=== PATIENT | female | born 1980 | race African-American/Black ===

== ENCOUNTER 2018-01-06 17:32 | Emergency (ER) | payer OTHER ==
[2018-01-06] MEDS ORDERED: PROMETHAZINE 25 MG/ML VIAL ONE (18:29)
[2018-01-06] MEDS ORDERED: LORazepam 2 MG/ML VIAL ONE (18:29)
[2018-01-06] MEDS ORDERED: FAMOTIDINE 20 MG/2 ML VIAL IV ONE (18:30)
[2018-01-06] MEDS ORDERED: NA CHLORIDE 0.9% 500 ML ONE (18:30)
[2018-01-06] MEDS ORDERED: FENTANYL CITR 100 MCG/2 ML ONE (18:30)
[2018-01-06 18:48] LABS: Absolute Lymphocytes (CBC) 1.3 K/uL (0.7-4.9); Absolute Monocytes 0.9 K/uL (0.1-1.3); Absolute Neutrophil 8.4 K/uL (1.8-8.0); Basophils % 0.1 % (0-1.3); Eosinophils % 1.5 % (0-4.4); Hematocrit 36.2 % (36.0-45.0); Lymphocytes % 12.2 % (15.3-44.8); MCH 23.7 pg (27.0-35.0); MCV 75.8 fL (80-100); Monocytes % 8.7 % (3.3-12.3); RBC Red Blood Cell Count 4.77 M/uL (3.86-4.86)
[2018-01-06 19:05] LABS: MPV 6.9 fL (7.6-11.3)
[2018-01-06 19:24] LABS: Bicarbonate 26 mEq/L (21-31); Glucose Level 111 mg/dL (65-120); Lipase 37 U/L (22-51); Potassium 3.7 mEq/L (3.6-5.0); Sodium Level 139 mEq/L (135-145)
[2018-01-06 19:31] LABS: ALT/SGPT 20 IU/L (10-60); AST/SGOT 23 IU/L (10-42); Albumin 4.1 g/dL (3.2-5.5); Alkaline Phosphatase 54 IU/L (42-121); Amylase Level 155 U/L (28-100); BUN Blood Urea Nitrogen 12 mg/dL (6-20); Bilirubin Direct 0.1 mg/dL (0-0.2); Bilirubin Total 0.3 mg/dL (0.3-1.2); Protein, Total 8.4 g/dL (6.0-8.3)
[2018-01-06 20:07] LABS: Blood Morphology Comment NOT SEEN (NOT SEEN); Platelet Estimate INCR; Urine White Blood Cell Casts OK
[2018-01-06] MEDS ORDERED: DICYCLOMINE HCL 10 MG CAP ONE (20:16)
--- NOTE | 2018-01-06 20:35 | ER ---
Nurse's Notes [facility] Name: Leila Aquino Age: 37 yrs Sex: Female : 1980 Arrival Date: 01/06/2018 Time: 17:41 Bed 16 Private MD: Diagnosis: Nausea and vomiting;Unspecified abdominal pain-chronic Presentation: 01/06 17:41 Presenting complaint: EMS states: Reports nausea and vomiting x 24hrs, states that she ph cannot keep anything down, BGL 115. Transition of care: patient was not received from another setting of care. Onset of symptoms was January 06, 2018. Initial Sepsis Screen: Does the patient meet any 2 criteria? No. Patient's initial sepsis screen is negative. Does the patient have a suspected source of infection? No. Patient's initial sepsis screen is negative. 17:41 Method Of Arrival: EMS: [facility] ph 17:41 Acuity: PAYTON 3 ph 19:16 Care prior to arrival: None. ph CRA: 21:18 LMP N/A - Irregular menses bs1 Historical: - Allergies: 19:12 Latex, Natural Rubber; ph 19:12 Morphine; ph 19:12 Vancomycin; ph - Home Meds: 19:12 amlodipine 10 mg tab 1 tab once daily [Active]; betamethasone valerate 0.1 % Topical ph crea [Active]; docusate sodium 100 mg Oral cap 1 cap 2 times per day [Active]; iron sulfate 325mg PO [Active]; metoprolol tartrate 25 mg Oral tab 0.5 tab 2 times per day [Active]; magnesium oxide 400 mg Oral tab 400 mg twice a day [Active]; miralax PO [Active]; mometasone nasal 2 sprays once daily [Active]; ondansetron HCl 8 mg Oral tab 1 tab 2 times per day [Active]; pantoprazole 40 mg Oral TbEC 1 tab once daily [Active]; promethazine 25 mg Oral tab 1 tab every 6 hours [Active]; sertraline 100 mg Oral tab 1 tab once daily [Active]; Xarelto 20 mg Oral tab 1 tab once daily [Active]; xopenex inhaler [Active]; - PMHx: 19:12 ADD/ADHD; Anemia; Asthma; DVT; Hypertension; Sepsis; spina bifida; ph - PSHx: 19:12 abdominal muscle removal; ph - Immunization history:: Adult Immunizations unknown. - Social history:: Smoking status: Patient/guardian denies using tobacco. Screenin:15 Abuse screen: Denies threats or abuse. Denies injuries from another. Nutritional ph screening: No deficits noted. Tuberculosis screening: No symptoms or risk factors identified. Fall Risk No fall in past 12 months (0 pts). Secondary diagnosis (15 points) impaired mobility, IV access (20 points). Ambulatory Aid- None/Bed Rest/Nurse Assist (0 pts). Gait- Impaired (20 pts.). Mental Status- Oriented to own ability (0 pts). Total Toribio Fall Scale indicates High Risk Score (45 or more points). Fall prevention measures have been instituted. Side Rails Up X 2 Placed Close to Nursing Station Frequent Obs/Assessments Occuring As available patient and family educated on Fall Prevention Program and Strategies. Assessment: 18:00 General: Appears in no apparent distress. uncomfortable, obese, well groomed, Behavior ph is calm, cooperative, appropriate for age, Denies fever. Pain: Complains of pain in right upper quadrant and left upper quadrant. Neuro: Level of Consciousness is awake, alert, obeys commands, Oriented to person, place, time, situation. Cardiovascular: Capillary refill < 3 seconds Patient's skin is warm and dry. Respiratory: Airway is patent Respiratory effort is even, unlabored. GI: Abdomen is round distended, Colostomy site is clean and dry. Ostomy appliance is intact. Reports upper abdominal pain, bloating, nausea, vomiting, since last night. : suprapubic catheter in place to gravity drainage Urine is cloudy. Derm: Skin is intact, Skin is pink, warm \\T\\ dry. Musculoskeletal: Circulation, motion, and sensation intact. Range of motion: limited in lower extremities. 19:10 Reassessment: Patient appears in no apparent distress at this time. Patient and/or bs1 family updated on plan of care and expected duration. Pain level reassessed. Patient is alert, oriented x 3, equal unlabored respirations, skin warm/dry/pink. Report received from RAJNI Grewal. 19:30 Reassessment: Patient requesting more pain medication. Informed PA, order for bentyl. bs1 20:45 Reassessment: Patient refused bentyl, informed PA. bs1 20:50 Reassessment: Patient appears in no apparent distress at this time. Patient appears bs1 upset, due to not receiving more IV pain medication and not further evaluating why patient is having the abdominal pain. MARSHA Mcqueen, talked with patient regarding follow up care. Patient refused Bentyl for stomach, patient states "That is not going to help with my pain, I need something through the IV, just take my IV out give me wheelchair and send me out in the lobby this place is making me frustrated." Patient informed nurse that her ride will be waiting for her. Informed Patient that if she needs any help getting into the car, to call for help and we will come outside. Vital Signs: 17:45 BP 130 / 93; Pulse 109; Resp 18; Temp 97.8; Pulse Ox 98% on R/A; Weight 88.45 kg; Pain ph 7/10; 18:45 BP 123 / 89; Pulse 98; Pulse Ox 100% on R/A; bs1 19:00 BP 133 / 102; Pulse 111; Pulse Ox 100% on R/A; bs1 20:00 BP 121 / 90; Pulse 97; Pulse Ox 100% ; bs1 21:00 BP 138 / 99; Pulse 106; Resp 16; Temp 98.2(O); Pulse Ox 99% on R/A; Pain 7/10; bs1 ED Course: 17:41 Patient arrived in ED. ph 17:42 Burton Mcqueen PA is PHCP. cp 17:42 Burton Rodrigez MD is Attending Physician. cp 17:44 Triage completed. ph 18:06 Carmina Escobar, RN is Primary Nurse. ph 18:45 Initial lab(s) drawn, by me, sent to lab. Inserted saline lock: 22 gauge in left upper ph arm, using aseptic technique. Blood collected. 19:16 Arm band placed on. ph 19:16 Patient has correct armband on for positive identification. Bed in low position. Call ph light in reach. Side rails up X2. Pulse ox on. NIBP on. Warm blanket given. 21:18 No provider procedures requiring assistance completed. IV discontinued, bleeding bs1 controlled, No redness/swelling at site. Pressure dressing applied. 21:27 Primary Nurse role handed off by Carmina Escobar, RAJNI ed1 Administered Medications: 18:50 Drug: NS 0.9% 500 ml Route: IV; Rate: bolus; Site: left upper arm; ph 21:21 Follow up: IV Status: Completed infusion bs1 18:50 Drug: fentaNYL (PF) 25 mcg Route: IVP; Site: left upper arm; ph 21:20 Follow up: Response: No adverse reaction bs1 18:51 Drug: Phenergan 25 mg Route: IVP; Site: left upper arm; ph 21:21 Follow up: Response: No adverse reaction bs1 18:52 Drug: Ativan 0.5 mg Route: IVP; Site: left upper arm; ph 21:20 Follow up: Response: No adverse reaction bs1 18:53 Drug: Pepcid 20 mg Route: IVP; Site: left upper arm; ph 21:20 Follow up: Response: No adverse reaction bs1 20:29 Not Given (Patient Refused): Bentyl 20 mg PO once bs1 Outcome: 20:35 Discharge ordered by MD. cp 21:19 Discharged to [facility], via wheelchair bs1 21:19 Condition: stable 21:19 Discharge instructions given to patient, Instructed on discharge instructions, follow up and referral plans. medication usage, Demonstrated understanding of instructions, follow-up care, medications, Prescriptions given X 2. 21:33 Patient left the ED. bs1 Addendum: 01/10/2018 09:52 Addendum: Culture Results: Positive urine culture. Prescription called-in to pharmacy a a5 of choice. Called in to [facility] in [place], [place]. Signatures: Kay Goldstein RN RN aa5 Nirmala Montano, SKEIN YARN DRIER SKEIN YARN DRIER ed1 Carmina Escobar RN RN ph Burton cMqueen, MARSHA PA Nandini Garcia RN RN bs1 Corrections: (The following items were deleted from the chart) 01/06 19:09 18:30 Pepcid 20 mg IVP in left upper arm ph ph 19:11 19:10 Reassessment: Patient appears in no apparent distress at this time. Patient bs1 and/or family updated on plan of care and expected duration. Pain level reassessed. Patient is alert/active/playful, equal unlabored respirations, skin warm/dry/pink. Report received from RAJNI Grewal bs1
--- NOTE | 2018-01-06 20:35 | EDPHYS ---
Physician Documentation [facility] Name: Leila Aquino Age: 37 yrs Sex: Female : 1980 Arrival Date: 01/06/2018 Time: 17:41 Bed 16 Private MD: ED Physician Burton Rodrigez HPI: 01/06 17:48 This 37 yrs old Black Female presents to ER via EMS with complaints of Nausea/Vomiting. cp 17:48 The patient presents to the emergency department with nausea, that is moderate, cp vomiting, that is intermittent. Onset: The symptoms/episode began/occurred last night. 17:48 Associated signs and symptoms: Pertinent positives: abdominal pain, Pertinent cp negatives: fever, GI bleeding. 17:48 Severity of symptoms: in the emergency department the symptoms are unchanged despite cp home interventions. H[employer] M[employer] SHE[employer]ER: 21:18 LMP N/A - Irregular menses bs1 Historical: - Allergies: 19:12 Latex, Natural Rubber; ph 19:12 Morphine; ph 19:12 Vancomycin; ph - Home Meds: 19:12 amlodipine 10 mg tab 1 tab once daily [Active]; betamethasone valerate 0.1 % Topical ph crea [Active]; docusate sodium 100 mg Oral cap 1 cap 2 times per day [Active]; iron sulfate 325mg PO [Active]; metoprolol tartrate 25 mg Oral tab 0.5 tab 2 times per day [Active]; magnesium oxide 400 mg Oral tab 400 mg twice a day [Active]; miralax PO [Active]; mometasone nasal 2 sprays once daily [Active]; ondansetron HCl 8 mg Oral tab 1 tab 2 times per day [Active]; pantoprazole 40 mg Oral TbEC 1 tab once daily [Active]; promethazine 25 mg Oral tab 1 tab every 6 hours [Active]; sertraline 100 mg Oral tab 1 tab once daily [Active]; Xarelto 20 mg Oral tab 1 tab once daily [Active]; xopenex inhaler [Active]; - PMHx: 19:12 ADD/ADHD; Anemia; Asthma; DVT; Hypertension; Sepsis; spina bifida; ph - PSHx: 19:12 abdominal muscle removal; ph - Immunization history:: Adult Immunizations unknown. - Social history:: Smoking status: Patient/guardian denies using tobacco. ROS: 18:00 Constitutional: Negative for body aches, chills, fever, poor PO intake. cp 18:00 Eyes: Negative for injury, pain, redness, and discharge. cp 18:00 ENT: Negative for drainage from ear(s), ear pain, sore throat, difficulty swallowing, difficulty handling secretions. 18:00 Cardiovascular: Negative for chest pain, edema, palpitations. 18:00 Respiratory: Negative for cough, shortness of breath, wheezing. 18:00 Abdomen/GI: Positive for abdominal pain, nausea and vomiting, Negative for abdominal distension, anorexia, black/tarry stool, rectal bleeding. 18:00 Back: Negative for pain at rest, pain with movement, radiated pain. 18:00 Skin: Negative for cellulitis, rash. 18:00 Neuro: Negative for altered mental status, headache, weakness. 18:00 All other systems are negative. Exam: 18:05 Constitutional: The patient appears in no acute distress, alert, awake, cp non-diaphoretic, non-toxic, well developed, well nourished. 18:05 Head/Face: Normocephalic, atraumatic. cp 18:05 Eyes: Periorbital structures: appear normal, Conjunctiva: normal, no exudate, no injection, Sclera: no appreciated abnormality, Lids and lashes: 18:05 ENT: External ear(s): are unremarkable, Nose: is normal, Mouth: Lips: moist, Oral mucosa: moist, Posterior pharynx: is normal, airway is patent, no erythema, no exudate. 18:05 Neck: ROM/movement: is normal, is supple, without pain, no range of motions limitations, no meningismus, no nuchal rigidity. 18:05 Chest/axilla: Inspection: normal, Palpation: is normal, no crepitus, no tenderness. 18:05 Cardiovascular: Rate: tachycardic, Rhythm: regular. 18:05 Respiratory: the patient does not display signs of respiratory distress, Respirations: normal, no use of accessory muscles, no retractions, no splinting, no tachypnea, labored breathing, is not present, Breath sounds: are clear throughout, no decreased breath sounds, no stridor, no wheezing. 18:05 Abdomen/GI: Inspection: distension, is not seen, Bowel sounds: active, all quadrants, Palpation: soft, in all quadrants, rebound tenderness, is not appreciated, involuntary guarding, is not appreciated. 18:05 Skin: cellulitis, is not appreciated, no rash present. 18:05 Neuro: Orientation: to person, place \T\ time. Mentation: lucid, able to follow commands. Vital Signs: 17:45 BP 130 / 93; Pulse 109; Resp 18; Temp 97.8; Pulse Ox 98% on R/A; Weight 88.45 kg; Pain ph 7/10; 18:45 BP 123 / 89; Pulse 98; Pulse Ox 100% on R/A; bs1 19:00 BP 133 / 102; Pulse 111; Pulse Ox 100% on R/A; bs1 20:00 BP 121 / 90; Pulse 97; Pulse Ox 100% ; bs1 21:00 BP 138 / 99; Pulse 106; Resp 16; Temp 98.2(O); Pulse Ox 99% on R/A; Pain 7/10; bs1 MDM: 17:44 Patient medically screened. cp 18:00 Differential diagnosis: gastritis, viral gastroenteritis, gastroenteritis, electrolyte cp abnormality, dehydration, chronic abdominal pain. 20:35 Data reviewed: vital signs, nurses notes, lab test result(s), and as a result, I will cp discharge patient. 20:35 ED course: VSS. No episodes of vomiting observed while in ED. Patient observed cp tolerating po fluids. Will discharge to home for continued monitoring. 20:35 Special discussion: I discussed with the patient their frequent requests for pain cp medications. Instructions have been given, that in the best interests of the patient, further pain Rx's must come from the patient's PCP or a body technician/painter. 01/06 17:49 Order name: Amylase, Serum; Complete Time: 19:35 cp 01/06 19:35 Interpretation: Abnormal: DAWSON 155. cp 01/06 17:49 Order name: Basic Metabolic Panel; Complete Time: 19:35 cp 01/06 19:36 Interpretation: Reviewed. 01/06 17:49 Order name: CBC with Diff; Complete Time: 20:33 cp 01/06 19:36 Interpretation: Normal except: HGB 11.3; MCV 75.8; MCH 23.7; MCHC 31.3; PLT 506; RDW cp 18.0; MPV 6.9; BETO% 77.5; LYM% 12.2; NEUT A 8.4. 01/06 17:49 Order name: Creatinine for Radiology; Complete Time: 19:35 cp 01/06 17:49 Order name: Hepatic Function; Complete Time: 19:35 cp 01/06 19:36 Interpretation: Normal except: TP 8.4; GLOB 4.3; A/G 1.0. cp / 17:49 Order name: Lipase; Complete Time: 19:35 cp 01/06 19:07 Order name: CBC Smear Scan; Complete Time: 20:33 EDMS 01/06 19:27 Order name: Urine Dipstick--Ancillary (enter results); Complete Time: 21:23 em1 01/06 21:24 Interpretation: Normal except: UBLD TRACE; UPH 8.5; UPROT 2+; UESTR 1+. cp 01/06 19:42 Order name: Urine Microscopic Only; Complete Time: 21:23 cp 01/06 21:24 Interpretation: Normal except: UWBC 5-10; UBACT 20-50; SQEPI 5-10; AMORPH 3+. cp 01/06 20:50 Order name: Urine Culture EDAR 01/06 17:49 Order name: Urine Test (obtain specimen); Complete Time: 19:26 cp 01/06 17:49 Order name: IV Saline Lock; Complete Time: 19:09 cp 01/06 17:49 Order name: Labs collected and sent; Complete Time: 19:09 cp 01/06 17:49 Order name: Urine Dipstick-Ancillary (obtain specimen); Complete Time: 19:26 cp 01/06 19:42 Order name: PO challenge; Complete Time: 20:46 cp Administered Medications: 18:50 Drug: NS 0.9% 500 ml Route: IV; Rate: bolus; Site: left upper arm; ph 21:21 Follow up: IV Status: Completed infusion bs1 18:50 Drug: fentaNYL (PF) 25 mcg Route: IVP; Site: left upper arm; ph 21:20 Follow up: Response: No adverse reaction bs1 18:51 Drug: Phenergan 25 mg Route: IVP; Site: left upper arm; ph 21:21 Follow up: Response: No adverse reaction bs1 18:52 Drug: Ativan 0.5 mg Route: IVP; Site: left upper arm; ph 21:20 Follow up: Response: No adverse reaction bs1 18:53 Drug: Pepcid 20 mg Route: IVP; Site: left upper arm; ph 21:20 Follow up: Response: No adverse reaction bs1 20:29 Not Given (Patient Refused): Bentyl 20 mg PO once bs1 Disposition: 01/07 10:55 Co-signature as Attending Physician, Burton Rodrigez MD I agree with the assessment and efrain plan of care. Disposition: 01/06/18 20:35 Discharged to Home. Impression: Nausea and vomiting, Unspecified abdominal pain - chronic. - Condition is Stable. - Discharge Instructions: Abdominal Pain, Adult, Chronic Pain, Nausea and Vomiting. - Prescriptions for promethazine 25 mg Oral Tablet - take 1 tablet by ORAL route every 6 hours As needed; 20 tablet. Pepcid 20 mg Oral Tablet - take 1 tablet by ORAL route 2 times per day; 20 tablet. - Medication Reconciliation Form, Thank You Letter, Antibiotic Education, Prescription Opioid Use form. - Follow up: Private Physician; When: 1 - 2 days; Reason: Recheck today's complaints. - Problem is an ongoing problem. - Symptoms have improved. Signatures: Dispatcher [employer] EDAR Burton Rodrigez MD MD cha Hall, Patricia, RN RN ph Charisse, Burton, PA PA Nandini Turpin, RN RN bs1 Corrections: (The following items were deleted from the chart) 01/06 21:33 20:35 01/06/2018 20:35 Discharged to Home. Impression: Nausea and vomiting; Unspecified bs1 abdominal pain - chronic. Condition is Stable. Forms are Medication Reconciliation Form, Thank You Letter, Antibiotic Education, Prescription Opioid Use. Follow up: Private Physician; When: 1 - 2 days; Reason: Recheck today's complaints. Problem is an ongoing problem. Symptoms have improved. cp
[2018-01-06 20:48] LABS: Urine Amorphous Sediment 3+ /HPF (NONE SEEN); Urine Bacteria 20-50 /HPF (<20); Urine Culture Reflex Order REFLEXED; Urine Mucus 2+ /HPF (NONE SEEN); Urine RBC <5 /HPF (NONE SEEN)
[2018-01-06 20:49] LABS: Urine Blood TRACE (NEG); Urine Glucose NEGATIVE (NEG); Urine Protein 2+ (NEG); Urine pH 8.5 (5.0-7.0)
[2018-01-06 21:45] VITALS: BP 138/99; TEMP 98.2; O2SAT 99
== END 2018-01-06 21:33 | disposition home or self-care (01) ==
LOC: ER 17:32
DX: R11.2 Nausea with vomiting, unspecified (principal); I10 Essential (primary) hypertension; J45.909 Unspecified asthma, uncomplicated; F98.8 Other specified behavioral and emotional disorders with onset usually occurring in childhood and adolescence; Z88.6 Allergy status to analgesic agent; Z88.3 Allergy status to other anti-infective agents; Z91.040 Latex allergy status
CPT/HCPCS: 36415; 80048; 80076; 82150; 83690; 85025; 87077 ×2; 87086; 87088; 87186 ×2; 96361; 96374; 96375; 99284; J2550; J3010; 81003; 81015

== ENCOUNTER 2018-02-28 17:36 | Emergency (ER) | payer OTHER ==
[2018-02-28] MEDS ORDERED: NA CHLORIDE 0.9% 2,000 ML ONE (18:08)
--- NOTE | 2018-02-28 18:18 | RAD REPORT ---
EXAM DESCRIPTION: [facility] Single View02/28/2018 6:08 pm CLINICAL HISTORY: Fever COMPARISON: September 2017 FINDINGS: A left ventriculo pleural shunt is in place with moderate pleural effusion. It is unchange d in size The right lung appears clear of acute infiltrate. A filter is present within the superior vena cava
[2018-02-28 18:49] LABS: Protime INR 1.26
[2018-02-28] MEDS ORDERED: FENTANYL CITR 100 MCG/2 ML ONE (18:58)
[2018-02-28] MEDS ORDERED: ACETAMINOPHEN 500 MG TAB ONE (18:59)
[2018-02-28] MEDS ORDERED: ONDANSETRON 4 MG/2 ML VIAL ONE (18:59)
[2018-02-28 19:16] LABS: Albumin 3.9 g/dL (3.4-5.0); Bilirubin Direct 0.2 mg/dL (0-0.2); Bilirubin Total 0.7 mg/dL (0.2-1.0); Potassium 3.1 mmol/L (3.5-5.1); Protein, Total 8.7 g/dL (6.4-8.2)
[2018-02-28] MEDS ORDERED: CEFTRIAXONE/SWI 1gm 2 GM/20 ML SYR ONE (19:27)
[2018-02-28 19:31] LABS: Absolute Lymphocytes (CBC) 0.3 K/uL (0.7-4.9); Absolute Neutrophil 18.5 K/uL (1.8-8.0); Hematocrit 32.1 % (36.0-45.0); Lymphocytes % 1.3 % (15.3-44.8); MCV 71.1 fL (80-100); MPV 9.1 fL (7.6-11.3); RBC Red Blood Cell Count 4.51 M/uL (3.86-4.86)
--- NOTE | 2018-02-28 19:53 | EDPHYS ---
Physician Documentation [facility] Name: Leila Aquino Age: 37 yrs Sex: Female : 1980 Arrival Date: 02/28/2018 Time: 17:42 Bed 15 Private MD: ED Physician Rudy Franklin HPI: 02/28 19:20 This 37 yrs old Black Female presents to ER via EMS with complaints of nausea/abdominal jr8 discomfort. 19:20 The patient presents with abdominal pain in the lower abdomen. Onset: The jr8 symptoms/episode began/occurred acutely, today. The symptoms do not radiate. Associated signs and symptoms: Pertinent positives: nausea and vomiting, fever. The symptoms are described as constant, dull. Modifying factors: The symptoms are alleviated by nothing, the symptoms are aggravated by nothing. Severity of pain: At its worst the pain was moderate in the emergency department the pain is unchanged. It is unknown whether or not the patient has had similar symptoms in the past. The patient has not recently seen a physician. Historical: - Allergies: 17:52 Latex, Natural Rubber; mg2 17:52 Morphine; mg2 17:52 Vancomycin; mg2 - Home Meds: 17:52 amlodipine 10 mg tab 1 tab once daily [Active]; betamethasone valerate 0.1 % Topical mg2 crea [Active]; docusate sodium 100 mg Oral cap 1 cap 2 times per day [Active]; iron sulfate 325mg PO [Active]; magnesium oxide 400 mg Oral tab 400 mg twice a day [Active]; metoprolol tartrate 25 mg Oral tab 0.5 tab 2 times per day [Active]; miralax PO [Active]; mometasone nasal 2 sprays once daily [Active]; ondansetron HCl 8 mg Oral tab 1 tab 2 times per day [Active]; pantoprazole 40 mg Oral TbEC 1 tab once daily [Active]; promethazine 25 mg Oral tab 1 tab every 6 hours [Active]; sertraline 100 mg Oral tab 1 tab once daily [Active]; Xarelto 20 mg Oral tab 1 tab once daily [Active]; xopenex inhaler [Active]; - PMHx: 17:52 ADD/ADHD; Anemia; DVT; Asthma; Hypertension; spina bifida; Sepsis; mg2 - PSHx: 17:52 bilateral colostomy; mg2 - Immunization history:: Flu vaccine status is unknown. - Ebola Screening: : No symptoms or risks identified at this time. - Social history:: Smoking status: Patient/guardian denies using tobacco. ROS: 19:20 Eyes: Negative for injury, pain, redness, and discharge, ENT: Negative for injury, jr8 pain, and discharge, Neck: Negative for injury, pain, and swelling, Cardiovascular: Negative for chest pain, palpitations, and edema, Respiratory: Negative for shortness of breath, cough, wheezing, and pleuritic chest pain, Back: Negative for injury and pain, MS/Extremity: Negative for injury and deformity, Skin: Negative for injury, rash, and discoloration, Neuro: Negative for headache, weakness, numbness, tingling, and seizure. 19:20 Abdomen/GI: Positive for abdominal pain, nausea and vomiting, Negative for diarrhea, abdominal cramps, abdominal distension, anorexia, dysphagia, hematemesis, black/tarry stool, rectal pain, rectal bleeding, bowel incontinence, flatulence. Exam: 19:20 Eyes: Pupils equal round and reactive to light, extra-ocular motions intact. Lids and jr8 lashes normal. Conjunctiva and sclera are non-icteric and not injected. Cornea within normal limits. Periorbital areas with no swelling, redness, or edema. ENT: Nares patent. No nasal discharge, no septal abnormalities noted. Tympanic membranes are normal and external auditory canals are clear. Oropharynx with no redness, swelling, or masses, exudates, or evidence of obstruction, uvula midline. Mucous membranes moist. Neck: Trachea midline, no thyromegaly or masses palpated, and no cervical lymphadenopathy. Supple, full range of motion without nuchal rigidity, or vertebral point tenderness. No Meningismus. Cardiovascular: Regular rate and rhythm with a normal S1 and S2. No gallops, murmurs, or rubs. Normal PMI, no JVD. No pulse deficits. Respiratory: Lungs have equal breath sounds bilaterally, clear to auscultation and percussion. No rales, rhonchi or wheezes noted. No increased work of breathing, no retractions or nasal flaring. Back: No spinal tenderness. No costovertebral tenderness. Full range of motion. Skin: Warm, dry with normal turgor. Normal color with no rashes, no lesions, and no evidence of cellulitis. MS/ Extremity: Pulses equal, no cyanosis. Neurovascular intact. Full, normal range of motion. Neuro: Awake and alert, GCS 15, oriented to person, place, time, and situation. Cranial nerves II-XII grossly intact. Motor strength 5/5 in all extremities. Sensory grossly intact. Cerebellar exam normal. Normal gait. 19:20 Abdomen/GI: Inspection: obese urostomy and colostomy bag noted , Bowel sounds: active, all quadrants, Palpation: soft, in all quadrants, mild abdominal tenderness, in the abdomen diffusely, mass, is not appreciated, rebound tenderness, is not appreciated, voluntary guarding, is not appreciated, involuntary guarding, is not appreciated, no appreciated organomegaly, Indicators: McBurney's point is not tender, Augustin's sign is negative, Rovsing's sign is negative, Liver: no appreciated palpable abnormalities, tenderness, is not appreciated. Vital Signs: 17:52 BP 140 / 99; Pulse 140; Resp 18; Temp 103.2; Pulse Ox 96% on R/A; Weight 90.72 kg; mg2 Height 5 ft. 0 in. (152.40 cm); Pain 7/10; 18:38 BP 122 / 109; Pulse 140; Resp 20; Temp 101.0(O); Pulse Ox 98% on R/A; mh5 20:10 BP 123 / 90; Pulse 115; Resp 18; Pulse Ox 100% on R/A; Pain 8/10; mg2 17:52 Body Mass Index 39.06 (90.72 kg, 152.40 cm) mg2 MDM: 17:54 Patient medically screened. 8 19:50 Data reviewed: vital signs, nurses notes, lab test result(s), radiologic studies, CT jr8 scan, and as a result, I will admit patient. Data interpreted: Pulse oximetry: on room air is 98 %. Interpretation: normal. Counseling: I had a detailed discussion with the patient and/or guardian regarding: the historical points, exam findings, and any diagnostic results supporting the discharge/admit diagnosis, lab results, radiology results, the need for further work-up and treatment in the hospital. Physician consultation: Lorraine Earl MD was called at 19:50, was contacted at 19:50, regarding admission, to the telemetry unit. consult, patient's condition, and will see patient. 20:55 ED course: Finding of ureteral stone at the right UPJ on CT. Discussed case with Dr. abdirahman Guidry. Will need to send to another facility for higher level of care for stent placement via urostomy site which Dr. Guidry does not do . 02/28 17:56 Order name: Urine Microscopic Only; Complete Time: 20:15 [email or web address] 02/28 17:56 Order name: Basic Metabolic Panel; Complete Time: 19:18 [facility] [[email or web address] 02/28 17:56 Order name: Blood Culture Adult (2) [facility] [[email or web address]] 02/28 17:56 Order name: CBC with Diff; Complete Time: 20:15 [email or web address] 02/28 17:56 Order name: Lactate; Complete Time: 19:18 [email or web address] 02/28 17:56 Order name: LFT's; Complete Time: 19:18 [email or web address] 02/28 17:56 Order name: Lipase; Complete Time: 19:18 [email or web address] 02/28 17:56 Order name: Procalcitonin; Complete Time: 19:43 [email or web address] 02/28 17:56 Order name: Protime (+inr); Complete Time: 19:13 [email or web address] 02/28 17:56 Order name: Troponin (emerg Dept Use Only); Complete Time: 19:18 [email or web address] 02/28 19:07 Order name: Urine Dipstick--Ancillary (enter results); Complete Time: 20:15 [facility] 02/28 20:01 Order name: CBC Smear Scan; Complete Time: 20:15 [facility] 02/28 20:06 Order name: Manual Differential; Complete Time: 20:15 [facility] 02/28 20:06 Order name: Urine Culture [facility] 02/28 17:56 Order name: Chest Single View XRAY; Complete Time: 18:27 [email or web address] 02/28 19:19 Order name: CT Abd/Pelvis - Without Cont; Complete Time: 20:23 [email or web address] 02/28 20:21 Order name: CBC with Automated Diff [facility] 02/28 20:21 Order name: Comprehensive Metabolic Panel [facility] 02/28 20:21 Order name: Magnesium [facility] 02/28 20:21 Order name: Phosphorus [facility] 02/28 17:56 Order name: Cath; Complete Time: 18:42 [email or web address] 02/28 17:56 Order name: Accucheck; Complete Time: 18:42 [email or web address] 02/28 17:56 Order name: Cardiac monitoring; Complete Time: 18:42 02/28 17:56 Order name: EKG - Nurse/Tech; Complete Time: 18:59 02/28 17:56 Order name: IV Saline Lock - Large Bore; Complete Time: 18:42 02/28 17:56 Order name: Labs collected and sent; Complete Time: 18:42 02/28 17:56 Order name: O2 Per Protocol; Complete Time: 18:42 02/28 17:56 Order name: O2 Sat Monitoring; Complete Time: 18:42 02/28 17:56 Order name: Urine Dipstick-Ancillary (obtain specimen); Complete Time: 19:08 02/28 18:56 Order name: Labs - recollect needed; Complete Time: 19:11 02/28 20:21 Order name: [facility] Administered Medications: 18:41 Drug: NS 0.9% (30 ml/kg) 30 ml/kg Route: IV; Rate: bolus; Site: left forearm; mg2 19:07 Drug: Zofran 4 mg Route: IVP; Site: left forearm; mg2 20:28 Follow up: Response: No adverse reaction; Nausea is decreased mg2 19:07 Drug: fentaNYL (PF) 50 mcg Route: IVP; Site: left forearm; mg2 20:25 Follow up: Response: No adverse reaction; Pain is unchanged, physician notified mg2 19:08 Drug: Tylenol 1000 mg Route: PO; mg2 20:28 Follow up: Response: No adverse reaction mg2 19:36 Drug: Rocephin 2 grams Route: IV; Rate: calculated rate; Site: left forearm; mg2 20:28 Follow up: Response: No adverse reaction; IV Status: Completed infusion mg2 20:27 Drug: Demerol 25 mg Route: IVP; Site: left forearm; mg2 22:10 Follow up: Response: No adverse reaction; Pain is decreased mg2 Disposition: 03/01 11:03 Co-signature as Attending Physician, Rudy Franklin MD. gs Disposition: 02/28/18 21:16 Transfer ordered to [facility]. Diagnosis are Hydronephrosis with renal and ureteral calculous obstruction, Sepsis, Urinary tract infection, site not specified. - Reason for transfer: Higher level of care. - Accepting physician is Dr. Aleman. - Condition is Fair. - Problem is new. - Symptoms have improved. Signatures: Dispatcher [employer] EDMS Wan Boyle PA PA jr8 Kat Jackson Gregory, MD MD Christ Tan RN RN mg2 Corrections: (The following items were deleted from the chart) 02/28 20:55 19:52 Hospitalization Ordered by Lorraine Earl MD for Inpatient Admission. Preliminary jr8 diagnosis is Urosepsis . Bed requested for Telemetry/MedSurg (Inpatient). Status is Inpatient Admission. Condition is Fair. Problem is new. Symptoms have improved. UTI on Admission? Yes. jr8 22:12 21:16 02/28/2018 21:16 Transfer ordered to [facility]. mg2 Diagnosis is Hydronephrosis with renal and ureteral calculous obstruction; Sepsis; Urinary tract infection, site not specified. Reason for transfer: Higher level of care. Accepting physician is Dr. Aleman. Condition is Fair. Problem is new. Symptoms have improved. jr8
--- NOTE | 2018-02-28 19:53 | ER ---
Nurse's Notes [facility] Name: Leila Aquino Age: 37 yrs Sex: Female : 1980 Arrival Date: 02/28/2018 Time: 17:42 Bed 15 Private MD: Diagnosis: Hydronephrosis with renal and ureteral calculous obstruction;Sepsis;Urinary tract infection, site not specified Presentation: 02/28 17:43 Presenting complaint: EMS states: patient is complaining of generalized bodyache, mg2 fever, headache , n/v and dark urine since last night. Transition of care: patient was not received from another setting of care. Onset of symptoms was February 27, 2018. Risk Assessment: Do you want to hurt yourself or someone else? Patient reports no desire to harm self or others. Initial Sepsis Screen: Does the patient meet any 2 criteria?. Care prior to arrival: None. 17:43 Method Of Arrival: EMS mg2 17:43 Acuity: PAYTON 3 mg2 21:00 Initial Sepsis Screen: Does the patient have a suspected source of infection? Yes: mg2 Dysuria/Frequency/Urgency/UTI. Historical: - Allergies: 17:52 Latex, Natural Rubber; mg2 17:52 Morphine; mg2 17:52 Vancomycin; mg2 - Home Meds: 17:52 amlodipine 10 mg tab 1 tab once daily [Active]; betamethasone valerate 0.1 % Topical mg2 crea [Active]; docusate sodium 100 mg Oral cap 1 cap 2 times per day [Active]; iron sulfate 325mg PO [Active]; magnesium oxide 400 mg Oral tab 400 mg twice a day [Active]; metoprolol tartrate 25 mg Oral tab 0.5 tab 2 times per day [Active]; miralax PO [Active]; mometasone nasal 2 sprays once daily [Active]; ondansetron HCl 8 mg Oral tab 1 tab 2 times per day [Active]; pantoprazole 40 mg Oral TbEC 1 tab once daily [Active]; promethazine 25 mg Oral tab 1 tab every 6 hours [Active]; sertraline 100 mg Oral tab 1 tab once daily [Active]; Xarelto 20 mg Oral tab 1 tab once daily [Active]; xopenex inhaler [Active]; - PMHx: 17:52 ADD/ADHD; Anemia; DVT; Asthma; Hypertension; spina bifida; Sepsis; mg2 - PSHx: 17:52 bilateral colostomy; mg2 - Immunization history:: Flu vaccine status is unknown. - Ebola Screening: : No symptoms or risks identified at this time. - Social history:: Smoking status: Patient/guardian denies using tobacco. Screenin:53 Abuse screen: Denies threats or abuse. Denies injuries from another. Nutritional mg2 screening: No deficits noted. Tuberculosis screening: No symptoms or risk factors identified. Fall Risk Secondary diagnosis (15 points) impaired mobility. Assessment: 17:54 General: Appears in no apparent distress. comfortable, Behavior is calm, cooperative. mg2 Pain: Complains of pain in head, abdomen and both thigh Pain does not radiate. Pain currently is 7 out of 10 on a pain scale. Quality of pain is described as aching, Pain began gradually, Is intermittent. Neuro: Level of Consciousness is awake, alert, obeys commands, Oriented to person, place, time, situation. Cardiovascular: Capillary refill < 3 seconds Patient's skin is warm and dry. Vital Signs: 17:52 BP 140 / 99; Pulse 140; Resp 18; Temp 103.2; Pulse Ox 96% on R/A; Weight 90.72 kg; mg2 Height 5 ft. 0 in. (152.40 cm); Pain 7/10; 18:38 BP 122 / 109; Pulse 140; Resp 20; Temp 101.0(O); Pulse Ox 98% on R/A; mh5 20:10 BP 123 / 90; Pulse 115; Resp 18; Pulse Ox 100% on R/A; Pain 8/10; mg2 17:52 Body Mass Index 39.06 (90.72 kg, 152.40 cm) mg2 ED Course: 17:42 Patient arrived in ED. mg2 17:43 Christ Tan, RAJNI is Primary Nurse. mg2 17:47 Triage completed. mg2 17:52 Patient has correct armband on for positive identification. Placed in gown. Bed in low mh5 position. Call light in reach. Side rails up X2. Pulse ox on. NIBP on. 17:54 Wan Boyle PA is PHCP. jr8 17:54 Rudy Franklin MD is Attending Physician. jr8 18:08 Chest Single View XRAY In Process Unspecified. EDMS 18:08 X-ray completed. Portable x-ray completed in exam room. Patient tolerated procedure kp1 well. 19:00 Inserted saline lock: 20 gauge in left forearm, using aseptic technique. Blood mg2 collected. 19:39 Patient moved to [place] via stretcher. 19:51 Lorraine Earl MD is Hospitalizing Provider. jr8 19:52 CT completed. Patient tolerated procedure well. Patient moved back from [place]. nj 19:52 CT Abd/Pelvis - Without Cont In Process Unspecified. EDMS 21:00 Arm band placed on. mg2 22:11 No provider procedures requiring assistance completed. Patient transferred, IV remains mg2 in place. Administered Medications: 18:41 Drug: NS 0.9% (30 ml/kg) 30 ml/kg Route: IV; Rate: bolus; Site: left forearm; mg2 19:07 Drug: Zofran 4 mg Route: IVP; Site: left forearm; mg2 20:28 Follow up: Response: No adverse reaction; Nausea is decreased mg2 19:07 Drug: fentaNYL (PF) 50 mcg Route: IVP; Site: left forearm; mg2 20:25 Follow up: Response: No adverse reaction; Pain is unchanged, physician notified mg2 19:08 Drug: Tylenol 1000 mg Route: PO; mg2 20:28 Follow up: Response: No adverse reaction mg2 19:36 Drug: Rocephin 2 grams Route: IV; Rate: calculated rate; Site: left forearm; mg2 20:28 Follow up: Response: No adverse reaction; IV Status: Completed infusion mg2 20:27 Drug: Demerol 25 mg Route: IVP; Site: left forearm; mg2 22:10 Follow up: Response: No adverse reaction; Pain is decreased mg2 Outcome: 19:52 Decision to Hospitalize by Provider. jr8 21:16 ER care complete, transfer ordered by . jr8 22:11 Transferred by ground EMS to [facility], Transfer form completed. mg2 22:11 Condition: stable 22:11 Instructed on the need for transfer, Demonstrated understanding of instructions. 22:12 Patient left the ED. mg2 Addendum: 03/04/2018 10:12 Addendum: Culture Results: Positive blood culture. Phone call Attempt #1 pt was i w transferred to [facility], called [facility], pt was discharged home today. Signatures: Dispatcher [employer] EDMN Thea Saldana Irene, RN RN Wan Barraza PA PA jr8 Karlos Villarreal Maria 5 Dalia Rae kp1 Christ Tan, RAJNI RN mg2
[2018-02-28 20:03] LABS: Platelet Estimate ADEQ; Urine White Blood Cell Casts DIFF
[2018-02-28 20:04] LABS: Blood Morphology Comment NOT SEEN (NOT SEEN)
[2018-02-28 20:04] LABS: Urine Amorphous Sediment 4+ /HPF (NONE SEEN); Urine Bacteria 20-50 /HPF (<20); Urine Culture Reflex Order REFLEXED; Urine RBC 20-50 /HPF (NONE SEEN); Urine Triple Phosphate Crystal MANY (NONE SEEN)
[2018-02-28 20:13] LABS: Urine Blood 2+ (NEG); Urine Glucose NEGATIVE (NEG); Urine Protein 2+ (NEG); Urine Specific Gravity 1.015 (1.005-1.030); Urine pH 8.5 (5.0-7.0)
[2018-02-28] MEDS ORDERED: ONDANSETRON 4 MG/2 ML VIAL IV PRN (20:17)
[2018-02-28] MEDS ORDERED: ACETAMINOPHEN 500 MG TAB PO PRN (20:17)
--- NOTE | 2018-02-28 20:21 | RAD REPORT ---
EXAM DESCRIPTION: CT - Abdomen Pelvis Wo Contrast - 02/28/2018 7:52 pm CLINICAL HISTORY: Abdominal pain nausea and vomiting since last night COMPARISON: October 2017 TECHNIQUE: Computed axial tomography of the abdomen and pelvis was obtained. IV and oral contrast we re not requested. All CT scans are performed using dose optimization technique as appropriate and may include automated exposure control or mA/KV adjustment according to patient size. FINDINGS: The evaluation of solid organs, vessels and bowel is limited secondary to the lack of con trast administration. Mild left hydronephrosis is present. A 4 millimeter calculus Hounsfield unit 599 present at the left ureteral pelvic junction. Nonobstructing right renal calculi are seen. Tiny nonobstructing ureteral calculi are present. The bladder is absent. Ileal conduit is noted. Colostomy is noted without evidence of an obstruction or colitis. There is no evidence of diverticuli tis. Ventriculopleural shunt is present with moderate left pleural effusion unchanged from the prior exam. The liver, spleen, pancreas and adrenals appear grossly normal. Spina bifida and sacral decubitus are noted. IMPRESSION: 4 millimeter left ureteral pelvic junction calculus resulting in mild left hydronephrosi s
[2018-02-28] MEDS ORDERED: MEPERIDINE HCL 25 MG/0.5 ML ONE (20:26)
[2018-02-28] MEDS ORDERED: Levofloxacin500mg IV 500 MG/100 ML BAG IV SCH (21:00)
[2018-02-28] MEDS ORDERED: NA CHLORIDE 0.9% 1,000 ML IV SCH (21:00)
[2018-02-28 22:21] VITALS: TEMP 101
[2018-02-28 22:30] VITALS: BP 123/90; O2SAT 100
[2018-03-01] MEDS ORDERED: CLINDAMYCIN INJ 600 MG in NA CHLORIDE 0.9% 50 ML IV SCH (01:00)
[2018-03-01] MEDS ORDERED: ENOXAPARIN 40 MG/0.4 ML SQ SCH (09:00)
--- NOTE | 2018-03-01 15:37 | EKG ---
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
== END 2018-02-28 22:12 | disposition short-term general hospital (02) ==
LOC: ER 17:36 → ERHOLD 20:19 → UNDOADMOB 20:19 → ER 22:12
DX: A41.9 Sepsis, unspecified organism (principal); N39.0 Urinary tract infection, site not specified; N13.2 Hydronephrosis with renal and ureteral calculous obstruction; I10 Essential (primary) hypertension; Z79.02 Long term (current) use of antithrombotics/antiplatelets; Z86.718 Personal history of other venous thrombosis and embolism; Z88.3 Allergy status to other anti-infective agents; Z88.5 Allergy status to narcotic agent; Z91.040 Latex allergy status
CPT/HCPCS: 36415; 71045; 74176; 80048; 80076; 82962; 83605; 83690; 84145; 84484; 85025; 85610; 87040 ×2; 87086; 87088; 87205 ×4; 93005; 96365; 96375; 99285; J0696; J2175; J2405; J3010; J7030; 81003; 81015; 87077; 87186

== ENCOUNTER 2018-04-11 15:00 | Emergency (ER) | payer OTHER ==
--- NOTE | 2018-04-11 15:57 | RAD REPORT ---
EXAM DESCRIPTION: RAD - Chest Single View - 04/11/2018 3:44 pm CLINICAL HISTORY: Fever COMPARISON: February 28 TECHNIQUE: AP portable chest image was obtained 1536 hours . FINDINGS: Large left pleural effusion is present. Patient has a left-sided ventriculopleural shunt. The pleural fluid on the left is similar to comparison. SVC filter is in place similar to comparison. No focal right lung field infiltrate. Upper left lung field markings are not clearly different from comparison. Cardiac silhouette is enlarged but unchanged. No pneumothorax. No acute bone finding. No acute aortic findings suspected. IMPRESSION: Large left pleural effusions similar to comparison. No acute lung parenchymal process identifiable.
[2018-04-11] MEDS ORDERED: NA CHLORIDE 0.9% 1,000 ML ONE ×2 (16:48→18:12)
[2018-04-11] MEDS ORDERED: PROMETHAZINE 25 MG/ML VIAL ONE ×2 (17:02→21:26)
[2018-04-11] MEDS ORDERED: FENTANYL CITR 100 MCG/2 ML ONE ×2 (17:02→21:35)
[2018-04-11 17:18] LABS: Absolute Lymphocytes (CBC) 0.4 K/uL (0.7-4.9); Absolute Monocytes 0.7 K/uL (0.1-1.3); Absolute Neutrophil 17.1 K/uL (1.8-8.0); Basophils % 0.2 % (0-1.3); Eosinophils % 0.1 % (0-4.4); MPV 6.9 fL (7.6-11.3); Monocytes % 3.9 % (3.3-12.3)
[2018-04-11 17:21] LABS: RBC Red Blood Cell Count 3.49 M/uL (3.86-4.86)
[2018-04-11 17:22] LABS: Hematocrit 24.2 % (36.0-45.0); MCH 20.5 pg (27.0-35.0); MCV 69.3 fL (80-100)
[2018-04-11 17:36] LABS: ALT/SGPT 17 U/L (12-78); AST/SGOT 12 U/L (15-37); Albumin 3.3 g/dL (3.4-5.0); Alkaline Phosphatase 50 U/L (45-117); BUN Blood Urea Nitrogen 14 mg/dL (7-18); Bicarbonate 21 mmol/L (21-32); Bilirubin Direct 0.2 mg/dL (0-0.2); Bilirubin Total 0.6 mg/dL (0.2-1.0); Creatine Phosphokinase 38 U/L (26-192); Glucose Level 100 mg/dL (74-106); Potassium 3.6 mmol/L (3.5-5.1); Protein, Total 7.8 g/dL (6.4-8.2); Sodium Level 140 mmol/L (136-145)
[2018-04-11 17:59] LABS: Urine Amorphous Sediment 3+ /HPF (NONE SEEN); Urine Bacteria 20-50 /HPF (<20); Urine Culture Reflex Order NOT NEEDED; Urine Triple Phosphate Crystal MANY (NONE SEEN)
[2018-04-11 18:14] LABS: Urine Blood 1+ (NEG); Urine Glucose NEGATIVE (NEG); Urine Protein 3+ (NEG); Urine pH >8.5 (5.0-7.0)
[2018-04-11] MEDS ORDERED: ACETAMINOPHEN 500 MG TAB ONE (18:28)
--- NOTE | 2018-04-11 18:47 | ER ---
Nurse's Notes [facility] Name: Leila Aquino Age: 37 yrs Sex: Female : 1980 Arrival Date: 04/11/2018 Time: 15:02 Bed 19 Private MD: Diagnosis: Sepsis, unspecified organism Presentation: 04/11 15:07 Presenting complaint: Patient states: I had a kidney stone and they put a urostomy in my L lower back in the beginning of February. home health never came and changed it or did anything with it. since 0645 this morning I have felt feverish with very bad pain in my R lower back, R hip, and R thigh. fever t max 100.0 per ems. I took tylenol around 1200. Transition of care: patient was not received from another setting of care. Onset of symptoms was April 11, 2018 at 06:45. Risk Assessment: Do you want to hurt yourself or someone else? Patient reports no desire to harm self or others. Initial Sepsis Screen: Does the patient meet any 2 criteria? HR > 90 bpm. Does the patient have a suspected source of infection? Yes: Dysuria/Frequency/Urgency/UTI Catheter related infection (Brown/dialysis/PICC/central line). Care prior to arrival: None. 15:07 Method Of Arrival: EMS: [facility] 15:07 Acuity: PAYTON 3 Triage Assessment: 15:12 General: Appears in no apparent distress. comfortable, Behavior is calm, cooperative, ch appropriate for age. Pain: Complains of pain in posterior aspect of right lateral abdomen, anterior aspect of right lateral abdomen, right inguinal area, right iliac crest, right hip and right quadriceps Pain currently is 10 out of 10 on a pain scale. Pain began gradually, this morning. Neuro: No deficits noted. Respiratory: Airway is patent Respiratory effort is even, unlabored. GI: Abdomen is round non-distended, pt has very large skin graft/mesh patch in her abdomen Bowel sounds present X 4 quads. Abd is soft X 4 quads Abdomen is tender to palpation X 4 quads. : pt has urostomy tube from back L side, and one in the front RLQ. both are draining brownish urine with sediment, large amounts of sediment. strong scent of foul urine on pt. Derm: Skin is clammy, Skin is normal, brown, Skin temperature is hot. Musculoskeletal: pt is paralyzed from the waist down, has atrophy to aroldo lower appendages. 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 N/A - Irregular menses Historical: - Allergies: 15:12 Latex, Natural Rubber; 15:12 Morphine; 15:12 Vancomycin; - Home Meds: 15:12 docusate sodium 100 mg Oral cap 1 cap 2 times per day [Active]; magnesium oxide 400 mg ch Oral tab 400 mg twice a day [Active]; miralax PO [Active]; sertraline 100 mg Oral tab 1 tab once daily [Active]; Xarelto 20 mg Oral tab 1 tab once daily [Active]; albuterol sulfate Oral [Active]; amlodipine 10 mg tab 1 tab once daily [Active]; mylanta [Active]; magnesium oxide 400 mg Oral tab [Active]; - PMHx: 15:12 ADD/ADHD; Anemia; Asthma; DVT; Hypertension; Sepsis; spina bifida; Kidney stones; UTI; ch osteomyolitis L foot; - PSHx: 15:12 bilateral colostomy; urostomy; "multiple abdominal surgeries"; ch - Immunization history:: Adult Immunizations up to date. - Social history:: Smoking status: Patient/guardian denies using tobacco. - Ebola Screening: : Patient negative for fever greater than or equal to 101.5 degrees Fahrenheit, and additional compatible Ebola Virus Disease symptoms Patient denies exposure to infectious person Patient denies travel to an Ebola-affected area in the 21 days before illness onset No symptoms or risks identified at this time. Screenin:16 Abuse screen: Denies threats or abuse. Denies injuries from another. Nutritional screening: No deficits noted. Tuberculosis screening: No symptoms or risk factors identified. Fall Risk None identified. Assessment: 15:16 Reassessment: Patient appears in no apparent distress at this time. No changes from previously documented assessment. Patient and/or family updated on plan of care and expected duration. Pain level reassessed. 16:26 Reassessment: Patient appears in no apparent distress at this time. Patient and/or family updated on plan of care and expected duration. Pain level reassessed. Patient states symptoms have not improved. 17:09 Reassessment: Patient appears in no apparent distress at this time. No changes from previously documented assessment. Patient and/or family updated on plan of care and expected duration. Pain level reassessed. 18:00 Reassessment: Patient appears in no apparent distress at this time. Patient and/or family updated on plan of care and expected duration. Pain level reassessed. Patient is alert, oriented x 3, equal unlabored respirations, skin warm/dry/pink. pt states she is cold. 19:05 Reassessment: pt vomits on herself, pt linnin changed. 19:07 Reassessment: raquel notified of pt HR. Enrike attempting to get IV access now. 19:20 Reassessment: Patient appears in no apparent distress at this time. No changes from [facility] previously documented assessment. Patient and/or family updated on plan of care and expected duration. Pain level reassessed. Patient is alert, oriented x 3, equal unlabored respirations, skin warm/dry/pink. 19:35 Reassessment: Beth URBAN at bedside trying to get second IV access for blood jd3 transfusion. 20:20 Reassessment: Patient appears in no apparent distress at this time. No changes from [facility] previously documented assessment. Patient and/or family updated on plan of care and expected duration. Pain level reassessed. Patient is alert, oriented x 3, equal unlabored respirations, skin warm/dry/pink. 20:40 Reassessment: started blood transfusion. see paper charting. jd3 21:13 Reassessment: report called to Edwin URBAN at [place]. [facility] 21:37 Reassessment: Patient appears in no apparent distress at this time. No changes from [facility] previously documented assessment. Patient and/or family updated on plan of care and expected duration. Pain level reassessed. Patient is alert, oriented x 3, equal unlabored respirations, skin warm/dry/pink. 21:50 Reassessment: Patient appears in no apparent distress at this time. Patient and/or [facility] family updated on plan of care and expected duration. Pain level reassessed. Patient is alert, oriented x 3, equal unlabored respirations, skin warm/dry/pink. Report given to EMS. Vital Signs: 15:12 BP 102 / 68; Pulse 129; Resp 24; Temp 99.4(O); Pulse Ox 99% on R/A; Pain 10/10; ch 17:09 BP 98 / 52; Pulse 110; Resp 26; Temp 99.6(O); Pulse Ox 99% on R/A; Pain 10/10; ch 17:50 BP 128 / 84; Pulse 112; Resp 20; Temp 99.4; Pulse Ox 99% on R/A; ch 18:20 Temp 102.1(O); ch 18:20 BP 118 / 85; Pulse 145; Resp 39; ch 19:05 BP 131 / 68; Pulse 138; Resp 26; Temp 102.1(O); Pulse Ox 100% on R/A; Pain 10/10; ch 19:59 Weight 65.77 kg; Height 4 ft. (121.92 cm); ch 21:00 BP 105 / 58; Pulse 133; Resp 23 S; Temp 102.7(O); Pulse Ox 100% on R/A; jd3 21:30 BP 106 / 88; Pulse 132; Resp 24 S; Pulse Ox 100% on R/A; jd3 21:55 BP 111 / 80; Pulse 133; Resp 26 S; Temp 101.8(O); Pulse Ox 100% on R/A; jd3 19:59 Body Mass Index 44.25 (65.77 kg, 121.92 cm) ED Course: 15:02 Patient arrived in ED. iw 15:03 Raquel Ferguson FNP-C [facility]. snw 15:03 Burton Rodrigez MD is Attending Physician. snw 15:06 Mojgan Weeks, RAJNI is Primary Nurse. ch 15:09 Triage completed. 15:12 Arm band placed on left wrist. Patient placed in an exam room, on a stretcher, on pulse oximetry. 15:16 Patient has correct armband on for positive identification. Bed in low position. Call light in reach. Side rails up X2. Pulse ox on. NIBP on. 15:37 X-ray completed. Portable x-ray completed in exam room. Patient tolerated procedure bb2 well. 15:38 Chest Single View XRAY In Process Unspecified. EDMS 16:25 Initial lab(s) drawn, by me, sent to lab. T\\T\\S collected, blood band applied to patient. Inserted saline lock: 22 gauge in left upper arm, using aseptic technique. Blood collected. 17:04 EKG done, by field service technician. reviewed by Raquel ARREAGA. dt2 19:[address] upon arrival of maintenance mechanic 2nd shift nurses at 1900. jd3 19:40 Second set of blood cultures drawn by me. Inserted 18 gauge 10 cm midline to right fc upper brachial vein on first attempt. Line with good blood return and flushes well. Blood cultures obtained. 21:37 No provider procedures requiring assistance completed. Patient transferred, IV remains jd3 in place. Administered Medications: 16:55 CANCELLED (wrong order): NS 0.9% (30 ml/kg) 30 ml/kg IV at bolus once; Sepsis Protocol iw 16:55 Drug: fentaNYL (PF) 25 mcg Route: IVP; Site: left upper arm; ch 19:13 Follow up: Response: No adverse reaction; No change in condition ch 17:00 Drug: NS 0.9% 1000 ml Route: IV; Rate: 1 bolus; Site: left upper arm; ch 17:35 Follow up: IV Status: Completed infusion; IV Intake: 1000ml ch 17:08 Drug: Phenergan 12.5 mg Route: IM; Site: right vastus lateralis; ch 19:13 Follow up: Response: No adverse reaction; No change in condition ch 18:10 Drug: NS 0.9% 1000 ml Route: IV; Rate: 250 ml/hr; Site: left upper arm; ch 20:57 Follow up: Response: No adverse reaction; IV Status: Infusion continued upon transfer jd3 19:15 Drug: Tylenol Suppository 975 mg Route: IN; ch 20:58 Follow up: Response: No adverse reaction jd3 20:09 Drug: Flagyl 500 mg Volume: 100 ml; Route: IVPB; Rate: 200 ml/hr; Infused Over: 30 jd3 mins; Site: left upper arm; 20:58 Follow up: Response: No adverse reaction; IV Status: Completed infusion jd3 20:10 Drug: Zosyn 3.375 grams Route: IVPB; Infused Over: 60 mins; Site: left upper arm; jd3 21:34 Follow up: Response: No adverse reaction; IV Status: Completed infusion jd3 20:35 Drug: Lasix 20 mg Route: IVP; Site: right antecubital; jd3 21:34 Follow up: Response: No adverse reaction jd3 21:27 Drug: Motrin 400 mg Route: PO; jd3 21:54 Follow up: Response: No adverse reaction jd3 21:27 Drug: Phenergan 6.25 mg Route: IVP; Site: left upper arm; jd3 21:54 Follow up: Response: No adverse reaction jd3 21:33 Drug: fentaNYL (PF) 25 mcg Route: IVP; Site: left upper arm; jd3 21:54 Follow up: Response: No adverse reaction jd3 Intake: 17:35 IV: 1000ml; Total: 1000ml. ch Outcome: 18:47 ER care complete, transfer ordered by . snw 21:52 Transferred by ground EMS to [facility], Transfer form completed. X-rays sent jd3 w/ patient. Note: report given to EMS and Edwin URBAN at [place]. 21:52 Condition: stable 21:52 Instructed on the need for transfer, Demonstrated understanding of instructions. 21:58 Patient left the ED. jd3 Addendum: 04/16/2018 11:02 Addendum: Culture Results: Positive urine culture. Positive blood culture. Results a a5 faxed to [facility], spoke to Anna (primary nurse). Signatures: Dispatcher [employer] EDMS Mojgan Weeks RN RN Raquel Rayo, SEAT PACK INSPECTOR-C SEAT PACK INSPECTOR-Jayceew Samantha Meza, RN Priyanka Benites RN Kay Bridges RN RN aa5 Nikolai Stover RN RN jd3 Bock, Brittany bb2 Katharine Lipscomb2 Corrections: (The following items were deleted from the chart) 04/11 15:17 15:16 Reassessment: Patient appears in no apparent distress at this time. No changes ch from previously documented assessment. Patient and/or family updated on plan of care and expected duration. Pain level reassessed. Patient is alert, oriented x 3, equal unlabored respirations, skin warm/dry/pink. 17:10 16:25 Inserted saline lock: 22 gauge in left forearm, using aseptic technique. Blood ch collected. 21:28 20:40 Reassessment: started blood transfusion. jd3 jd3
--- NOTE | 2018-04-11 18:47 | EDPHYS ---
Physician Documentation [facility] Name: Leila Aquino Age: 37 yrs Sex: Female : 1980 Arrival Date: 04/11/2018 Time: 15:02 Bed 19 Private MD: ED Physician Burton Rodrigez HPI: 04/11 15:38 This 37 yrs old Black Female presents to ER via EMS with complaints of feeling terrible.snw 15:38 The patient reports fever, that was measured at 100.5 degrees Fahrenheit. Onset: The snw symptoms/episode began/occurred suddenly, this morning. Modifying factors: pt states she was to have home health for recent (03/01/18) nephrostomy tube, states they never came and nothing has been done. Associated signs and symptoms: Pertinent positives: decreased appetite, nausea, vomiting. Severity of symptoms: At their worst the symptoms were moderate in the emergency department the symptoms are unchanged. It is unknown whether or not the patient has had similar symptoms in the past. 03/01/18. 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 N/A - Irregular menses ch Historical: - Allergies: 15:12 Latex, Natural Rubber; ch 15:12 Morphine; ch 15:12 Vancomycin; ch - Home Meds: 15:12 docusate sodium 100 mg Oral cap 1 cap 2 times per day [Active]; magnesium oxide 400 mg ch Oral tab 400 mg twice a day [Active]; miralax PO [Active]; sertraline 100 mg Oral tab 1 tab once daily [Active]; Xarelto 20 mg Oral tab 1 tab once daily [Active]; albuterol sulfate Oral [Active]; amlodipine 10 mg tab 1 tab once daily [Active]; mylanta [Active]; magnesium oxide 400 mg Oral tab [Active]; - PMHx: 15:12 ADD/ADHD; Anemia; Asthma; DVT; Hypertension; Sepsis; spina bifida; Kidney stones; UTI; ch osteomyolitis L foot; - PSHx: 15:12 bilateral colostomy; urostomy; "multiple abdominal surgeries"; ch - Immunization history:: Adult Immunizations up to date. - Social history:: Smoking status: Patient/guardian denies using tobacco. - Ebola Screening: : Patient negative for fever greater than or equal to 101.5 degrees Fahrenheit, and additional compatible Ebola Virus Disease symptoms Patient denies exposure to infectious person Patient denies travel to an Ebola-affected area in the 21 days before illness onset No symptoms or risks identified at this time. ROS: 15:36 Eyes: Negative for injury, pain, redness, and discharge, ENT: Negative for injury, snw pain, and discharge, Neck: Negative for injury, pain, and swelling, Cardiovascular: Negative for chest pain, palpitations, and edema, Respiratory: Negative for shortness of breath, cough, wheezing, and pleuritic chest pain, Abdomen/GI: Negative for abdominal pain, nausea, vomiting, diarrhea, and constipation. 15:36 MS/Extremity: Negative for injury and deformity, Skin: Negative for injury, rash, and discoloration, Neuro: Negative for headache, weakness, numbness, tingling, and seizure, Psych: Negative for depression, anxiety, suicide ideation, homicidal ideation, and hallucinations. 15:36 Constitutional: Positive for body aches, chills, fever, malaise, poor PO intake. 15:36 Back: Positive for pain at rest, pain with movement, flank pain, on the left, radiated pain, of the right leg and pelvis and abdomen. 15:36 : Positive for urinary symptoms, flank pain, hematuria, foul smelling urine. Exam: 15:30 Head/Face: Normocephalic, atraumatic. Eyes: Pupils equal round and reactive to light, snw extra-ocular motions intact. Lids and lashes normal. Conjunctiva and sclera are non-icteric and not injected. Cornea within normal limits. Periorbital areas with no swelling, redness, or edema. ENT: Nares patent. No nasal discharge, no septal abnormalities noted. Tympanic membranes are normal and external auditory canals are clear. Oropharynx with no redness, swelling, or masses, exudates, or evidence of obstruction, uvula midline. Mucous membranes moist. Neck: Trachea midline, no thyromegaly or masses palpated, and no cervical lymphadenopathy. Supple, full range of motion without nuchal rigidity, or vertebral point tenderness. No Meningismus. Chest/axilla: Normal chest wall appearance and motion. Nontender with no deformity. No lesions are appreciated. 15:30 Respiratory: Lungs have equal breath sounds bilaterally, clear to auscultation and percussion. No rales, rhonchi or wheezes noted. No increased work of breathing, no retractions or nasal flaring. 15:30 Back: No spinal tenderness. No costovertebral tenderness. Full range of motion. Skin: Warm, dry with normal turgor. Normal color with no rashes, no lesions, and no evidence of cellulitis. Neuro: Awake and alert, GCS 15, oriented to person, place, time, and situation. Cranial nerves II-XII grossly intact. Motor strength 5/5 in all extremities. Sensory grossly intact. Cerebellar exam normal. Normal gait. 15:30 Constitutional: The patient appears alert, uncomfortable, unkempt. 15:30 Cardiovascular: Rate: tachycardic, Rhythm: regular, Pulses: no pulse deficits are appreciated, Heart sounds: normal. 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 Area of insertion with skin breakdown, sutures remain on cath but not attached to patient. 15:30 Musculoskeletal/extremity: shortened, lower extremities with paralysis, severe scoliosis. Vital Signs: 15:12 BP 102 / 68; Pulse 129; Resp 24; Temp 99.4(O); Pulse Ox 99% on R/A; Pain 10/10; ch 17:09 BP 98 / 52; Pulse 110; Resp 26; Temp 99.6(O); Pulse Ox 99% on R/A; Pain 10/10; ch 17:50 BP 128 / 84; Pulse 112; Resp 20; Temp 99.4; Pulse Ox 99% on R/A; ch 18:20 Temp 102.1(O); ch 18:20 BP 118 / 85; Pulse 145; Resp 39; ch 19:05 BP 131 / 68; Pulse 138; Resp 26; Temp 102.1(O); Pulse Ox 100% on R/A; Pain 10/10; ch 19:59 Weight 65.77 kg; Height 4 ft. (121.92 cm); ch 21:00 BP 105 / 58; Pulse 133; Resp 23 S; Temp 102.7(O); Pulse Ox 100% on R/A; jd3 21:30 BP 106 / 88; Pulse 132; Resp 24 S; Pulse Ox 100% on R/A; jd3 21:55 BP 111 / 80; Pulse 133; Resp 26 S; Temp 101.8(O); Pulse Ox 100% on R/A; jd3 19:59 Body Mass Index 44.25 (65.77 kg, 121.92 cm) ch MDM: 15:04 Patient medically screened. efrain 18:43 Data reviewed: vital signs, nurses notes. Data interpreted: Pulse oximetry: on room air snw is 99 %. Interpretation: normal. Counseling: I had a detailed discussion with the patient and/or guardian regarding: the historical points, exam findings, and any diagnostic results supporting the discharge/admit diagnosis, lab results, radiology results, the need to transfer to another facility, for higher level of care, [facility] does not immediately have the required specialist. Physician consultation: Dr. Nydia Hsu was called at 18:30, was contacted at 18:30, regarding regarding transfer, to [facility]. 04/11 15:21 Order name: Urine Microscopic Only; Complete Time: 18:02 snw 04/11 15:21 Order name: Urine Culture snw 04/11 15:21 Order name: Basic Metabolic Panel; Complete Time: 17:39 snw 04/11 15:21 Order name: Blood Culture Adult (2) snw 04/11 15:21 Order name: CBC with Diff; Complete Time: 19:48 snw 04/11 15:21 Order name: CPK; Complete Time: 17:39 snw 04/11 15:21 Order name: Lactate; Complete Time: 16:55 snw 04/11 15:21 Order name: LFT's; Complete Time: 17:39 snw 04/11 15:21 Order name: Procalcitonin; Complete Time: 17:39 snw 04/11 15:21 Order name: Sed Rate; Complete Time: 19:48 snw 04/11 15:21 Order name: Troponin (emerg Dept Use Only); Complete Time: 17:02 snw 04/11 15:22 Order name: TS snw 04/11 16:56 Order name: Urine Dipstick--Ancillary (enter results); Complete Time: 18:15 bd 04/11 17:35 Order name: ABO/RH no charge; Complete Time: 17:39 EDMS 04/11 15:21 Order name: Chest Single View XRAY; Complete Time: 16:06 snw 04/11 18:52 Order name: Packed RBC Leukored -1 EDMS 04/11 19:27 Order name: Manual Differential; Complete Time: 19:48 EDMS 04/11 15:21 Order name: EKG - Nurse/Tech; Complete Time: 17:09 snw 04/11 15:21 Order name: IV Saline Lock - Large Bore; Complete Time: 19:54 snw 04/11 15:21 Order name: Labs collected and sent; Complete Time: 16:26 snw 04/11 15:21 Order name: Urine Dipstick-Ancillary (obtain specimen); Complete Time: 17:09 snw 04/11 17:37 Order name: Consent for Blood Transfusion; Complete Time: 19:12 snw 04/11 17:37 Order name: IV Saline Lock; Complete Time: 19:56 snw Administered Medications: 16:55 CANCELLED (wrong order): NS 0.9% (30 ml/kg) 30 ml/kg IV at bolus once; Sepsis Protocol iw 16:55 Drug: fentaNYL (PF) 25 mcg Route: IVP; Site: left upper arm; ch 19:13 Follow up: Response: No adverse reaction; No change in condition ch 17:00 Drug: NS 0.9% 1000 ml Route: IV; Rate: 1 bolus; Site: left upper arm; ch 17:35 Follow up: IV Status: Completed infusion; IV Intake: 1000ml ch 17:08 Drug: Phenergan 12.5 mg Route: IM; Site: right vastus lateralis; ch 19:13 Follow up: Response: No adverse reaction; No change in condition ch 18:10 Drug: NS 0.9% 1000 ml Route: IV; Rate: 250 ml/hr; Site: left upper arm; ch 20:57 Follow up: Response: No adverse reaction; IV Status: Infusion continued upon transfer jd3 19:15 Drug: Tylenol Suppository 975 mg Route: MI; ch 20:58 Follow up: Response: No adverse reaction jd3 20:09 Drug: Flagyl 500 mg Volume: 100 ml; Route: IVPB; Rate: 200 ml/hr; Infused Over: 30 jd3 mins; Site: left upper arm; 20:58 Follow up: Response: No adverse reaction; IV Status: Completed infusion jd3 20:10 Drug: Zosyn 3.375 grams Route: IVPB; Infused Over: 60 mins; Site: left upper arm; jd3 21:34 Follow up: Response: No adverse reaction; IV Status: Completed infusion jd3 20:35 Drug: Lasix 20 mg Route: IVP; Site: right antecubital; jd3 21:34 Follow up: Response: No adverse reaction jd3 21:27 Drug: Motrin 400 mg Route: PO; jd3 21:54 Follow up: Response: No adverse reaction jd3 21:27 Drug: Phenergan 6.25 mg Route: IVP; Site: left upper arm; jd3 21:54 Follow up: Response: No adverse reaction jd3 21:33 Drug: fentaNYL (PF) 25 mcg Route: IVP; Site: left upper arm; jd3 21:54 Follow up: Response: No adverse reaction jd3 Disposition: 04/12 11:41 Co-signature as Attending Physician, Burton Rodrigez MD I agree with the assessment and efrain plan of care. Disposition: 04/11/18 18:47 Transfer ordered to [facility]. Diagnosis is Sepsis, unspecified organism. - Reason for transfer: Higher level of care. - Accepting physician is Dr. Basia Hsu. - Condition is Fair. - Problem is an ongoing problem. - Symptoms have worsened. Signatures: Dispatcher [employer] EDMojgan Lin, Burton Kaplan RN, ch, MD MD cha Therrien, Shelly, STALLION KEEPER-C STALLION KEEPER-Jayceew Nikolai Stover RN RN jPriyanka Dill RN iw Corrections: (The following items were deleted from the chart) 04/11 16:55 15:21 NS 0.9% (30 ml/kg) 30 ml/kg IV at bolus once; Sepsis Protocol ordered. snw iw 21:58 18:47 04/11/2018 18:47 Transfer ordered to [facility]. jd3 Diagnosis is Sepsis, unspecified organism. Reason for transfer: Higher level of care. Accepting physician is Dr. Basia Hsu. Condition is Fair. Problem is an ongoing problem. Symptoms have worsened. snw
[2018-04-11] MEDS ORDERED: ACETAMINOPHEN 325 MG/SUPP PR ONE (19:19)
[2018-04-11] MEDS ORDERED: FUROSEMIDE 20 MG/ 2ML VIAL ONE (19:19)
[2018-04-11] MEDS ORDERED: ACETAMINOPHEN 650MG/RECT SUPP PR ONE (19:19)
[2018-04-11] MEDS ORDERED: METRONIDAZOLE 500mg IVPB 500 MG/100 ML BAG IV ONE (19:20)
[2018-04-11] MEDS ORDERED: PIPER/TAZO/NS 3.375gm 3.375 GM/100 ML BAG ONE (19:20)
[2018-04-11 19:45] LABS: Platelet Estimate ADEQ
[2018-04-11 19:46] LABS: Anisocytosis 2+; Blood Morphology Comment NOTED (NOT SEEN); Hypochromasia 2+; Polychromasia SLIGHT
[2018-04-11 19:47] LABS: Ovalocytes 1+; Teardrop Cell FEW
[2018-04-11] MEDS ORDERED: NA CHLORIDE 0.9% 250 ML ONE (20:34)
[2018-04-11] MEDS ORDERED: IBUPROFEN 400 MG TAB ONE (21:26)
[2018-04-11 23:03] VITALS: O2SAT 100
[2018-04-11 23:07] VITALS: BP 111/80; TEMP 101.8
--- NOTE | 2018-04-12 07:51 | EKG ---
Test Date: 2018-04-11 Test Time: 16:34:02 Medicine Worker: MISAEL MEASUREMENT RESULTS: Intervals: Rate: 114 NM: 136 QRSD: 70 QT: 336 QTc: 463 [place]: P: 39 NM: 136 QRS: 35 T: 38 INTERPRETIVE STATEMENTS: Sinus tachycardia Low voltage QRS Borderline ECG Compared to ECG 02/28/2018 18:51:30 No significant changes Electronically Signed On 04-12-18 07:49:58 CDT by Santi Leach
== END 2018-04-11 21:58 | disposition short-term general hospital (02) ==
LOC: ER 15:00
PROC: 30233Q1 Transfusion of Nonautologous White Cells into Peripheral Vein, Percutaneous Approach (ICD-10-PCS; principal; 2018-04-11)
DX: A41.9 Sepsis, unspecified organism (principal); I10 Essential (primary) hypertension; J45.909 Unspecified asthma, uncomplicated; Z79.01 Long term (current) use of anticoagulants; Z88.3 Allergy status to other anti-infective agents; Z88.5 Allergy status to narcotic agent; Z86.718 Personal history of other venous thrombosis and embolism; Z87.442 Personal history of urinary calculi; Z91.040 Latex allergy status; Z91.048 Other nonmedicinal substance allergy status
CPT/HCPCS: 36415; 36430; 71045; 80048; 80076; 82550; 83605; 84145; 84484; 85025; 85652; 86850; 86900; 86901; 87040 ×2; 87086; 87088; J1940; J2543; J2550 ×2; J3010 ×2; J7030 ×2; P9016; 81003; 81015; 87077; 87186; 87205; 93005; 96361; 96365; 96368; 96372; 96375; 99285

== ENCOUNTER 2018-06-10 11:10 | Emergency (ER) | payer OTHER ==
--- OUTSIDE RECORDS SUMMARY | 2018-06-10 11:14 | XMS REPORT | Continuity of Care Document ---
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 Problem 03/07/2018 05/06/08 [facility] comments<sup>1</s 08 Nares Medical up> Center Nausea with 02/12/2018 [facility] vomiting, Medical unspecified Center 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 [facility] uterus, Medical unspecified Center Essential 02/12/2018 [facility] hypertension [facility] Center Paraplegia, 02/12/2018 [facility] Center senior care use of 02/12/2018 [facility] anticoagulants [facility] Colostomy status 02/12/2018 [facility] Other artificial 02/12/2018 [facility] openings of [facility] urinary tract Center status Clotting disorder Resolved Problem 03/07/2018 [facility] Colostomy Active Problem 03/07/2018 [facility] Colostomy present Resolved Problem 03/07/2018 [facility] Hypertension Resolved Problem 03/07/2018 [facility] Depression Resolved Problem 03/07/2018 [facility] Nephrostomy Active Problem 03/07/2018 [facility] Pleural effusion Resolved Problem 03/07/2018 [facility] left [facility] Pleural effusion Active Problem 03/07/2018 [facility] Pneumothorax Resolved Problem 03/07/2018 [facility] Spina bifida Resolved Problem 03/07/2018 [facility] Sepsis Resolved Problem 03/07/2018 [facility] OTHER INTESTINAL Active [facility] OBSTRUCTION [facility] URINARY TRACT Active [facility] INFECTION, SITE Medical NOT SPECIF Center Medications Medication Details Route Status Patient Ordering Order Source Instructions Provider Date Amoxicillin 875 mg, 1 tab, No Longer [place] Route: PO, Drug Active 2017 Medical form: TAB, Q12H, Center Dosing Weight 67, kg, Priority: NOW, Start date: 03/03/18 18:57:00 CDT, Duration: 30 day, Stop date: 04/02/18 9:00:00 CDTNotes: (Same as: Amoxil) amoxicillin 875 875 mg=1 tab, On Hold [facility] mg oral tablet PO, Q12H, X 10 2018 Medical day, # 20 tab, 0 Center Refill(s), Pharmacy: [facility] [id number] rivaroxaban 20 20 mg=1 tab, PO, Active [facility] MG Oral Tablet QPM, # 30 tab, 0 2018 Medical [Xarelto] Refill(s), [place] [facility]: [facility] [id number] Amoxicillin 875 875 mg=1 tab, Inactive [facility] MG / PO, Q12H, X 10 2018 Medical Clavulanate 125 day, # 20 tab, 0 Center MG Oral Tablet Refill(s), [Augmentin Pharmacy: 875-mg] [facility] [id number] Potassium 20 mEq, 1 tab, Inactive [facility] Chloride Route: PO, Drug 2017 Medical form: ERTAB, [place] ONCE, Dosing Weight 67, kg, Start date: 03/03/18 11:36:00 CDT, Stop date: 03/03/18 11:36:00 CDTNotes: (Same as: K-Dur 20) "Do Not Crush" For patients unable to swallow tablet, dissolve in one half glass of water. Allow about 2 minutes for the tablets to disintegrate. Stir before giving to prepare slurry and administer. Please exclude Patients with feeding tube less than 14 Chilean (Dobhoff, J-tube etc) and pediatric and patients. With food and full glass of water Ceftriaxone 1 gm, Route: IV, No Longer [facility] [id number], Dosing Active 2017 Medical Weight 67.6, kg, Center Start date: 03/02/18 8:00:00 CDT, Duration: 13 day, Stop date: 03/14/18 8:00:00 CDT, ABX Indication: Urinary Tract InfectionNotes: (Same As: Rocephin). MEDICATION WASTE Product Size: 1000 mg Product Wasted: ___ mg Ondansetron 4 mg, Route: Inactive 03/01[facility] [place] IVP, ONCE, 2018 Medical Dosing Weight Center 67, kg, PRN Nausea & Vomiting, Start date: 03/01/18 18:07:00 CDT Flumazenil 0.2 mg, Route: Inactive 03/01[facility] IVP, PRN, Dosing 2018 Medical Weight 67, kg, Center PRN Benzodiazepine Reversal, Initial dose, Start date: 03/01/18 18:07:00 CDT, Duration: 30 day, Stop date: 03/31/18 18:06:00 CDT Naloxone 0.4 mg, Route: Inactive 03/01[facility] IVP, Q2MIN, 2018 Medical Dosing Weight Center 67, kg, PRN Narcotic Reversal, Start date: 03/01/18 18:07:00 CDT, Duration: 8 doses or times, Stop date: Limited # of times Oxycodone 10 mg, Route: Inactive 03/01[facility] PO, Drug form: 2018 Medical TAB, Q4H, Dosing Center Weight 67, kg, PRN Pain Score 7-10, Start date: 03/01/18 18:07:00 CDT, Duration: 30 day, Stop date: 03/31/18 18:06:00 CDT Hydromorphone 0.2 mg, Route: Inactive 03/01[facility] IVP, Q5Min, 2018 Medical Dosing Weight Center 67, kg, PRN Pain Score 7-10, Start date: 03/01/18 18:07:00 CDT, Duration: 4 doses or times, Stop date: Limited # of times Acetaminophen 1,000 mg, Route: Inactive 03/01[facility] [place] PO, Drug form: 2018 Medical TAB, ONCE, Center Dosing Weight 67, kg, PRN Pain Score 1-3, Start date: 03/01/18 18:07:00 CDT Hydralazine 10 mg, Route: Inactive 03/01[facility] [place] IVP, Q20Min, 2018 Medical Dosing Weight Center 67, kg, PRN Elevated BP, Start date: 03/01/18 18:07:00 CDT, Duration: 2 doses or times, Stop date: Limited # of times Labetalol 10 mg, Route: Inactive [place] IVP, Q5Min, 2018 Medical Dosing Weight Center 67, kg, PRN Elevated BP, Start date: 03/01/18 18:07:00 CDT, Duration: 5 doses or times, Stop date: Limited # of times sugammadex 500 mg, 5 mL, No Longer [place] Route: IV, Drug Active 2017 Medical form: SOLN, Center ONCALL, Start date: 03/01/18 18:00:00 CDT, Duration: 1 doses or times, Stop date: 03/01/18 18:15:00 CDTNotes: (Same as: [place]) Dilaudid 0.5 mg, Route: Inactive [place] IVP, ONCE, 2017 Medical Dosing Weight Center 67.6, kg, Priority: STAT, Start date: 03/01/18 15:48:00 CDT, Stop date: 03/01/18 15:48:00 CDT Zofran 4 mg, 2 mL, No Longer [place] Route: IVP, Drug Active 2017 Medical form: INJ, Q8H, Center Dosing Weight 67.6, kg, PRN Nausea, Start date: 03/01/18 12:40:00 CDT, Duration: 30 day, Stop date: 03/31/18 12:39:00 CDTNotes: (Same as: Zofran) MEDICATION WASTE Product Size: 4 mg Product Wasted: ___ mg Docusate 100 mg, 1 cap, No Longer [place] Route: PO, Drug Active 2017 Medical form: CAP, BID, Center Dosing Weight 67.727, kg, Start date: 03/01/18 9:00:00 CDT, Duration: 30 day, Stop date: 03/30/18 17:00:00 CDTNotes: (Same as: Colace) (Do Not Crush) Sertraline 50 mg, 1 tab, No Longer [place] Route: PO, Drug Active 2017 Medical form: TAB, Center Daily, Dosing Weight 67.727, kg, Start date: 03/01/18 9:00:00 CDT, Duration: 30 day, Stop date: 03/30/18 9:00:00 CDTNotes: (Same as: Zoloft) Betamethasone 1 appl, Route: Inactive [place] 0.5 MG/ML TOP, BID, Drug 2017 Medical Augmented form: CRM, Start Center Topical Cream date: 03/01/18 9:00:00 CDT, Duration: 30 day, Stop date: 03/30/18 17:00:00 CDTNotes: (betamethasone dip, aug 0.05% 15gm CRM) (Same As: Diprolene AF) heparin sodium, 5,000 unit, 1 No Longer [facility] porcine 2500 mL, Route: Active 2018 Medical UNT/ML SUB-Q, Drug Center Injectable form: INJ, Q8H, Solution Dosing Weight 67.727, kg, Start date: 03/01/18 8:00:00 CDT, Duration: 30 day, Stop date: 03/31/18 0:00:00 CDTNotes: porcine heparin Ceftriaxone 2 gm, Route: Inactive [place] IVPB, [id number], 2018 Medical Dosing Weight Center 67.727, kg, Start date: 03/01/18 7:00:00 CDT, Duration: 7 day, Stop date: 03/07/18 19:00:00 CDT, ABX Indication: Urinary Tract InfectionNotes: (Same As: Rocephin). Use with 100 mL NS and infuse over 30 min MEDICATION WASTE Product Size: 2000 mg Product Wasted: ___ mg NS 1,000 mL 1,000 mL, Rate: No Longer [place] 100 ml/hr, Active 2017 Medical Infuse over: 10 Center hr, Route: IV, Dosing Weight 67.727 kg, Total Volume: 1,000, Start date: 03/01/18 6:57:00 CDT, Duration: 30 day, Stop date: 03/31/18 6:56:00 CDT, 1.72, m2 ketOROLAC 30 30 mg, 1 mL, No Longer [facility] mg/mL Route: IVP, Drug Active 2017 Medical injectable form: INJ, Q6H, Center solution Dosing Weight 67.727, kg, PRN Pain Score 4-6, Start date: 03/01/18 6:52:00 CDT, Duration: 4 day, Stop date: 03/05/18 6:51:00 CDTNotes: (Same as:Toradol) IV bolus must be given >15 seconds. Give IM administration slowly and deeply into the muscle. Not for use > 4 days MEDICATION WASTE Product Size: 30 mg Product Wasted: ___ mg Ondansetron 4 mg, 2 mL, No Longer [facility] Route: IVP, Drug Active 2017 Medical form: INJ, Q6H, Center Dosing Weight 67.727, kg, PRN Nausea & Vomiting, Start date: 03/01/18 6:21:00 CDT, Duration: 30 day, Stop date: 03/31/18 6:20:00 CDTNotes: (Same as: Zofran) MEDICATION WASTE Product Size: 4 mg Product Wasted: _0__ mg Acetaminophen 2 tab, Route: No Longer [facility] 325 MG / PO, Drug Form: Active 2018 Medical Hydrocodone TAB, Dosing Center Bitartrate 5 MG Weight 67.727, Oral Tablet kg, Q4H, PRN Pain Score 7-10, Start date: 03/01/18 6:21:00 CDT, Duration: 30 day, Stop date: 03/31/18 6:20:00 CDTNotes: (Same as: [place] 325/5) Do not exceed 4gm/day of acetaminophen. Fentanyl 25 microgram, Inactive [facility] 0.5 mL, Route: 2018 Medical IVP, Drug form: [place] INJ, ONCE, Dosing Weight 67.727, kg, Priority: STAT, Start date: 03/01/18 4:54:00 CDT, Stop date: 03/01/18 4:54:00 CDTNotes: (Same as: Sublimaze) Preservative free. Isolyte S 1,000 mL, 0 Inactive [facility] PH-7.4 (Bolus) ml/hr, Route: 2018 Medical IV IV, Drug Form: [place] SOLN, Dosing Weight 67.727, kg, ONCE, Start date: 03/01/18 4:50:00 CDT, Stop date: 03/01/18 4:50:00 CDTNotes: (Same as: Isolyte S PH 7.4) Fentanyl 50 microgram, 1 Inactive [place] mL, Route: IVP, 2018 Medical Drug form: INJ, Center ONCE, Dosing Weight 67.727, kg, Priority: STAT, Start date: 03/01/18 0:51:00 CDT, Stop date: 03/01/18 0:51:00 CDTNotes: (Same as: Sublimaze) Preservative free. Ondansetron 4 mg, 2 mL, Inactive [facility] Route: IVP, Drug 2018 Medical form: INJ, ONCE, Center Dosing Weight 67.727, kg, Priority: STAT, Start date: 03/01/18 0:51:00 CDT, Stop date: 03/01/18 0:51:00 CDTNotes: (Same as: Zofran) MEDICATION WASTE Product Size: 4 mg Product Wasted: ___ mg Ondansetron 4 mg, Route: Inactive [facility] IVP, Drug form: 2018 Medical INJ, ONCE, Center Dosing Weight 67.727, kg, Priority: STAT, Start date: 03/01/18 0:49:00 CDT, Stop date: 03/01/18 0:49:00 CDT Phenergan 12.5 mg, Route: Inactive [facility] IVPB, ONCE, 2018 Medical Dosing Weight Center 67.727, kg, Priority: STAT, Start date: 11/06/17 12:12:00 VISUAL BASIC PROGRAMMER, Stop date: 11/06/17 12:12:00 VISUAL BASIC PROGRAMMER Fentanyl 50 microgram, Inactive [facility] Route: IVP, 2018 Medical ONCE, Dosing Center Weight 67.727, kg, Priority: STAT, Start date: 11/06/17 12:12:00 VISUAL BASIC PROGRAMMER, Stop date: 11/06/17 12:12:00 VISUAL BASIC PROGRAMMER Fentanyl 50 microgram, 1 Inactive [facility] mL, Route: IVP, 2018 Medical Drug form: INJ, Center ONCE, Dosing Weight 67.727, kg, Priority: STAT, Start date: 11/06/17 10:05:00 VISUAL BASIC PROGRAMMER, Stop date: 11/06/17 10:05:00 CSTNotes: (Same as: Sublimaze) Preservative free. Ketorolac 15 mg, 0.5 mL, Inactive [facility] Route: IVP, Drug 2017 Medical form: INJ, ONCE, Center Dosing Weight 67.727, kg, Start date: 11/06/17 9:35:00 VISUAL BASIC PROGRAMMER, Stop date: 11/06/17 9:35:00 CSTNotes: (Same as:Toradol) IV bolus must be given >15 seconds. Give IM administration slowly and deeply into the muscle. Not for use > 4 days MEDICATION WASTE Product Size: 30 mg Product Wasted: ___ mg Zofran 4 mg, 2 mL, Inactive [facility] Route: IVP, Drug 2017 Medical form: INJ, ONCE, Center Dosing Weight 67.727, kg, Priority: STAT, Start date: 11/06/17 9:35:00 VISUAL BASIC PROGRAMMER, Stop date: 11/06/17 9:35:00 CSTNotes: (Same as: Zofran) MEDICATION WASTE Product Size: 4 mg Product Wasted: ___ mg Iohexol 100 mL, Route: Inactive [facility] IVP, Drug Form: 2018 Medical SOLN, Dosing Center Weight 67.727, kg, ONCALL, STAT, Start date: 11/06/17 9:28:00 VISUAL BASIC PROGRAMMER, Duration: 1 doses or times, Stop date: 11/07/17 0:00:00 VISUAL BASIC PROGRAMMER, Dose=2.2ml/kg, Max [id number] -- "To be infused by Radiology Staff ONLY"Notes: (same as:Omnipaque 350). WASTE: F/P - Black; E - Municipal Trash Bin Allergies, Adverse Reactions, Alerts Substance Category Reaction Severity Reaction Status Date Comments Source type Reported morphine Assertion Drug Active [facility] Latex Assertion Propensity Active [facility] to adverse Medical reactions Center to substance Food Assertion Propensity Active [facility] Chocolate to adverse Medical reactions Center to substance vancomycin Assertion Drug Active [facility] Rubber Assertion Drug Active [facility] Immunizations Immunization Date Site Status Last Updated Comments Source Given pneumococcal Left Arm completed Reagin [facility] 23-valent 8 [facility] vaccine Center pneumococcal Left completed Ricafrente [facility] 23valent deltoid [facility] vaccine [place] Results Order Name Results Value Reference Date Interpretation Comments Source Range Abd Renal Abd Renal 10/04 - [facility] Protocol Protocol /2018 - [place] w/wo IV w/wo IV Study: Abd Renal Protocol w/wo IV contrast CT contrast CT contrast CT Read by: Faisal Calvert MD Dictated Date/time: 06/02/18 12:50 Clinical Indication: - Pyelonephritis Electronically Signed by: Faisal Calvert MD 06/02/18 13:00 FINAL REPORT Comparison: CT abdomen and pelvis from 04/12/2018 TECHNIQUE: Multiple axial CT images of the abdomen/pelvis were acquired before and after the administration of intravenous contrast. Multiplanar reformatted images were performed. Renal mass protocol was utilized. TME=6245.8 mGy-cm FINDINGS: Limited views of the lung bases show a moderate-sized left pleural effusion with small bore chest tube in position. Subcentimeter gallstones are seen. Liver, pancreas, spleen, and adrenal glands are unremarkable. No intrahepatic or extrahepatic biliary duct dilatation is seen. Previously noted left-sided percutaneous nephrostomy catheter is no longer seen. No hydronephrosis or perinephric stranding is seen. Cortical scarring throughout the right kidney is noted. Calcified stones throughout the right kidney are agai n seen with largest measuring 1.7 cm in the inferior pole of the right kidney. No filling defects are noted throughout the opacified portions of the renal collecting systems or ureters on the delayed ex cretory phase images. Stable changes of cystectomy and ileal conduit surgery are again noted. Visualized uterus is unremarkable. Vaginal pessary is seen. Stable changes of left lower quadrant colostomy formation are again noted. The appendix is unremarkable. No free air, free fluid, or pathologic adenopathy is seen. Severe diastasis of the anterior abdominal wall fascia is again seen. Sacral decubitus ulcer with underlying granulation tissue formation is seen. 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 Severe right hip dysplasia is noted. IMPRESSION: 1. Interval removal of left-sided percutaneous nephrostomy catheter. 2. No renal collecting system obstruction. 3. Stable nonobstructive right nephrolithiasis. 4. Moderate-sized left pleural effusion. SL: [id number] Chest 1view Chest 1view EXAM: XR CHEST 1 VIEW 04/15 - [facility] DX DX /2018 - [facility] DATE: 04/15/2018 10:31 AM CDT Read by: Chip Strong MD Dictated Date/time: 04/15/18 11:06 Electronically Signed by: Chip Strong MD 04/15/18 11:09 FINAL REPORT INDICATION: - Post thoracentesis COMPARISON: 04/13/2018 TECHNIQUE: AP chest IMPRESSION: 1. Small left pleural effusion with interval decrease compared to previous study, status post thoracocentesis with better inflation of the left lung. 2. Patchy airspace opacities in the left lung suggestive of reexpansion pulmonary edema. 3. Cardiomediastinal silhouette is enlarged, unchanged. IVC filter again seen projecting over the right atrium and distal SVC, stable compared to previous study. 4. Left-sided HARPOON ENGAGEMENT PLANNING OPERATOR shunt again seen. 5. Osseous structures are stable. Chest 1view Chest 1view EXAM: XR CHEST 1 VIEW 04/13 - [facility] DX DX /2017 - [facility] DATE: 04/13/2018 3:00 AM CDT Read by: Destiny Serrano MD Dictated Date/time: 04/13/18 09:39 Electronically Signed by: Destiny Serrano MD 04/13/18 12:05 FINAL REPORT INDICATION: - intubated, pleural effusions. FINDINGS: Comparison is made to April 11. A large left pleural effusion obscures the left lower lobe, with fluid layering posteriorly and capping the left apex. There is a left retrocardiac opacity which may be due to a layering left pleural ef fusion and/or a left lower lobe airspace opacity such as pneumonia or atelectasis. Left upper lobe and right lower lobe platelike atelectasis. There is rightward curvature of the thoracic spine. Cardiomediastinal silhouette is unchanged. Again seen is the filter projecting over the lower SVC and upper right atrium; this has been seen dating [facility] to at least 2009. There is a left-sided ventriculopleural shunt in place. Rightward curvature of the thoracic spine. IMPRESSION: No change. Nephrostomy Nephrostomy EXAM: VIR left-sided Percutaneous Nephrostomy Tube Exchanges 04/12 - [facility] tube tube /2017 - Medical exchange VR exchange VR DATE: 04/12/2018 7:14 PM CDT This report was dictated by a [place] Maintenance/Fellow. I have personally reviewed the images as Center well as the Resident's interpretation and agree with the findings. PROCEDURE(S) PERFORMED: Read by: Doron Del Rio MD Resident: Doron Del Rio MD Dictated Date/time: 04/13/18 08:00 INDICATION: 37 years old Female with urinary obstruction. Electronically Signed by: Pedro Kennedy MD 04/13/18 18 :14 FINAL REPORT FACULTY: Pedro Kennedy MD RESIDENT/FELLOW/HYDRAULIC MODELING ENGINEER: Doron Del Rio ANESTHESIA/SEDATION: Moderate sedation PHYSICIAN SUPERVISED ANESTHESIA TIME: 30 min SPECIMEN: None DRAINS: 10-Chilean pigtail catheter. ESTIMATED BLOOD LOSS: Less than 10 cc COMPLICATIONS: None immediate FLUOROSCOPY TIME: 3.5 min RADIATION DOSE: 23.0 mGy PROCEDURE: After the risks, benefits, and alternatives of the procedure were explained to the patient, verbal and written consent was obtained and a copy was placed on the chart. Patient was brought to the angiogr aphy suite and a time-out was performed. IV Versed and Fentanyl were titrated for moderate sedation by a trained observer. The patient was positioned prone. The nephrostomy site was prepped and draped in the usual sterile fashion. : Patient was already on appropriate antibiotics IV.Medical Technicians radiographs demonstrated the nephro stomy tubes in the region of the renal pelvis. Local anesthesia was achieved using 1% Lidocaine. A glide wire was advanced through the left nephrostomy tube into the collecting system. The tube was then severed to release the distal loop and removed over a wire. 10 Chilean nephrostomy tube was inser alda over wire into the renal pelvis using direct fluoroscopic guidance. The loop was secured by gently targeting on this during and locking. Contrast was injected through the nephrostomy tube to confir m position of the tube within the renal pelvis. The nephrostomy tube was secured to the skin with 2-0 proline suture. Sterile dressing was placed at the site. The patient tolerated the procedure well without immediate complications. FINDINGS: See procedure section. IMPRESSION: 1. Successful exchange of left-sided nephrostomy. Plan: Routine exchange of nephrostomy tubes between [address] Pedro Kennedy MD was present for the procedure. Abdomen/Pel Abdomen/Pelv EXAM: CT ABDOMEN AND PELVIS WITHOUT CONTRAST - [facility] wo IV is wo IV /2018 - Medical contrast CT contrast CT This report was dictated by a [place] Maintenance/Fellow. I have personally reviewed the images as Center well as the Resident's interpretation and agree with the findings. DATE: 04/11/2018 11:33 PM CDT Read by: Fermín Ag MD Resident: Fermín Ag MD Dictated Date/time: 04/12/18 10:07 Electronically Signed by: Javid Manzanares MD 04/12/18 13:01 FINAL REPORT INDICATION: - PCN in place, history of nephrolithiasis ADDITIONAL INFORMATION: 29-year-old woman status post left PCN placed on 2017 now with lower back pain, fevers. COMPARISON: None. TECHNIQUE: Volumetric CT of the abdomen and pelvis is acquired without intravenous contrast. Axial, coronal and sagittal images are provided. IV contrast: None. Enteric contrast: None. DLP: 757 mGy-cm FINDINGS: Lines, tubes and hardware: * Nasogastric tube in place. * Left renal nephrostomy tube. * HARPOON ENGAGEMENT PLANNING OPERATOR shunt catheter in the left hemithorax. Lower thorax: Persistent small to moderate left pleural effusion with associated atelectasis/consolidation. Right basilar atelectasis. Liver: No hypodense lesions. Fatty infiltration of the liver. Biliary tree: No intra- or extrahepatic biliary ductal dilation. Gallbladder: Layering hyperdensity may represent tiny stones/sludge. No wall thickening. Pancreas: No ductal dilatation. Spleen: No splenomegaly. Adrenals: No nodules. Kidneys and ureters: * Multiple nonobstructive right renal calculi in both poles and the ureteropelvic junction. * Interval resolution of left-sided hydronephrosis with nephrostomy tube in place. * Previous left renal stones not seen. * No perinephric fluid collections. Bladder: Absent with right lower quadrant ileal conduit. Reproductive organs: Prostate and seminal vesicles are unremarkable. Pessary visualized in the vagina. Gastrointestinal tract: Stomach: Normal. Small bowel: Normal. Colon: Left lower quadrant loop colostomy. Appendix: Normal. Peritoneum, mesentery and retroperitoneum: No free air, ascites or loculated fluid. Lymph nodes: Normal. Vasculature: Aorta and branches: Normal. IVC and veins: Normal. Portal vasculature: Normal. Bones: * Stable right hip dysplasia with chronic superolateral dislocation of the right femur and shallow acetabulum. * Stable spina bifida and severe rotodextroscoliosis. Soft tissues: * Eventration of the anterior abdominal wall. * Sacral decubitus ulcer. IMPRESSION: 1. Interval resolution of left renal hydronephrosis with nephrostomy tube in place. No perinephric fluid collections. Previous left renal stones not seen. 2. Multiple nonobstructive right renal calculi, not significantly changed. 3. Left lower quadrant colostomy. No obstruction. 4. 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 5. Stable right hip dysplasia and spina bifida with severe rotodextroscoliosis. 6. Anterior abdominal wall axially with bowel herniation, unchanged from prior. 7. Sacral decubitus ulcer. 8. Likely tiny gallstones/sludge. Chest 1view Chest 1view EXAM: XR CHEST 1 VIEW 04/11 - [facility] DX DX /2018 [facility] DATE: 04/11/2018 11:32 PM CDT Read by: Destiny Serrano MD Dictated Date/time: 04/12/18 09:21 Electronically Signed by: Destiny Serrano MD 04/12/18 09:27 FINAL REPORT INDICATION: - shortness of breath. FINDINGS: Comparison is made to 03/01/2018. A large left pleural effusion obscures the left lower lobe and extends laterally with fluid layering posteriorly. The left lower lobe is completely obscured and there is a left perihilar opacity. This c ould be due to atelectasis with or without superimposed aspiration or pneumonia. The right lung is clear and well-expanded. Heart and mediastinum remain shifted to the right. Again seen is the filter projecting over the lower SVC and upper right atrium; this has been seen dating back to at least 2009.. There is dextroscoliosis of the thoracic spine. Again seen is the left-sided ventriculopleural shunt. Part of a pigtail catheter projects over the left lower chest wall, unclear location. IMPRESSION: 1. Large left pleural effusion. 2. The left lung is diminished in volume with left perihilar and left lower lobe opacities which could be due to atelectasis with or without superimposed consolidation. 3. New pigtail catheter over the left lower chest with part of it looping over the subcutaneous soft tissue. It is of unclear location. Please correlate. Ext Upper Ext Upper EXAM: US LEFT UPPER EXTREMITY VENOUS DOPPLER 03/03 - [facility] Venous Venous /2017 - Medical Doppler Doppler This report was dictated by a Carpenter Maintenance/ Fellow. I have personally reviewed the images [facility] well as the Resident's interpretation and agree with the findings. DATE: 03/03/2018 1002 hours Read by: Dmitriy Drew MD Resident: Dmitriy Drew MD Dictated Date/time: 03/03/18 10:33 Electronically Signed by: Ken Moffett 03/03/18 13:29 FINAL REPORT INDICATION: Evaluate for DVT COMPARISON: None. TECHNIQUE: Multiplanar grayscale, color Doppler and spectral Doppler ultrasound of the left upper extremity veins. FINDINGS: Left Upper Extremity Veins: Internal Jugular: Partially occlusive echogenic material seen within the left IJ vein which prevents complete compression. Subclavian: Patent. Axillary: Patent. Brachial: Patent. Basilic: Patent. Cephalic: Patent. Other: None. IMPRESSION: Age-indeterminate partially occlusive deep vein thrombosis within the left IJ. Findings discussed with Dr. Lucas at 1305 hours 03/03/2018. CHEM PANEL eGFR 137 03/03 Result Comment: The eGFR is calculated using the CKD-EPI formula. In most young, healthy individuals the eGFR will be >90 mL/ min/1.73m2. The eGFR declines with age. An eGFR of 60-89 may be normal in [facility] mL/min/1. some populations, particularly the elderly, for whom the CKD-EPI formula has not been extensively validated. Use of the eGFR is not recommended in the following populations: [place] [address] Center Individuals with unstable creatinine concentrations, including patients and those with serious co-morbid conditions. Patients with extremes in muscle mass or diet. The data above are obtained from the National Kidney Disease Education Program (NKDEP) which additionally recommends that when the eGFR is used in patients with extremes of body mass index for purposes of drug dosing, the eGFR should be multiplied by the estimated BMI. CHEM PANEL Calcium Lvl 8.2 mg/dL 8.5 - 10.5 03/03 [facility] CHEM PANEL AGAP 15.1 meq/L 10.0 - 03/03 [facility] 20.0 [facility] CHEM PANEL CO2 20 meq/L 24 - 32 03/03 [facility] CHEM PANEL Glucose Lvl 89 mg/dL 70 - 99 07/ [facility] CHEM PANEL BUN 7 mg/dL 7 - 22 03/03 [facility] [address] [place] [address] CHEM PANEL Creatinine 0.56 mg/dL 0.50 - 03/03 [facility] Lvl 1.40 [facility] CHEM PANEL Chloride Lvl 116 meq/L 95 - [address] CHEM PANEL Sodium Lvl 148 meq/L 135 - [address] [place] [address] CHEM PANEL Potassium 3.1 meq/L 3.5 - 5.1 03/03 [facility] /2017 [facility] HEMATOLOGY Monocytes # 0.9 K/CMM 0.0 - 0.8 07 [facility] [address] [place] [address] HEMATOLOGY Monocytes 7.7 % 2.0 - 12.0 03/[address] HEMATOLOGY Eosinophils 0.1 K/CMM 0.0 - 0.5 03/03 [facility] HEMATOLOGY Eosinophils 0.7 % 0.0 - 4.0 03/03 [facility] [address] [place] [address] HEMATOLOGY Basophils 0.3 % 0.0 - 1.0 03/03 [facility] [address] [place] [address] HEMATOLOGY Lymphocytes 9.1 % 20.0 - 07 [facility] 40.0 [facility] HEMATOLOGY Segs 82.2 % 45.0 - 0705 [facility] 75.0 [facility] HEMATOLOGY Microcyte 2+ None Seen 03/03 [facility] [address] [place] [address]* Center (03/03/18 1:02 AM) HEMATOLOGY Lymphocytes 1.1 K/CMM 1.0 - 5.5 03/03 [facility] # /2017 [facility] HEMATOLOGY Segs-Bands # 9.9 K/CMM 1.5 - 8.1 03/03 [facility] [address] [place] [address] HEMATOLOGY Hgb 9.2 g/dL 12.0 - 07/05 [facility] 16.0 [facility] HEMATOLOGY Hct 29.9 % 36.0 - 07/05 [facility] 48.0 [facility] HEMATOLOGY WBC 12.1 K/CMM 3.7 - 10.[address] HEMATOLOGY RBC 4.18 M/CMM 4.20 - 07/05 [facility] 5.40 [facility] HEMATOLOGY MCV 71.6 fL 80.0 - 07/ [facility] 98.0 [facility] HEMATOLOGY RDW 19.9 % 11.5 - 03/03 [facility] 14.5 [facility] HEMATOLOGY MCH 22.1 pg 27.0 - 03/03 31.0 [facility] HEMATOLOGY MCHC 30.9 g/dL 32.0 - 03/03 [facility] 36.0 [facility] HEMATOLOGY MPV xxxxxxx 7.4 - 10.4 03/03 [facility] (03/03/18 1:02 AM) Center HEMATOLOGY Platelet See Note 2 133 - 450 03/03 Result Comment: [facility] (03/03/18 1:02 AM) Platelets Center clumped in EDTA, unable to estimate, suggest recollection in a blue top tube with an order for "Blue Top Platelet Count" CHEM PANEL eGFR 98 03/02 Result Comment: The eGFR is calculated using the CKD-EPI formula. In most young, healthy individuals the eGFR will be >90 mL/ min/1.73m2. The eGFR declines with age. An eGFR of 60-89 may be normal in [facility] mL/min/1. some populations, particularly the elderly, for whom the CKD-EPI formula has not been extensively validated. Use of the eGFR is not recommended in the following populations: [address] Individuals with unstable creatinine concentrations, including patients and those with serious co-morbid conditions. Patients with extremes in muscle mass or diet. The data above are obtained from the National Kidney Disease Education Program (NKDEP) which additionally recommends that when the eGFR is used in patients with extremes of body mass index for purposes of drug dosing, the eGFR should be multiplied by the estimated BMI. CHEM PANEL Sodium Lvl 145 meq/L 135 - 145 03/02 [facility] CHEM PANEL Potassium 4.0 meq/L 3.5 - 5.1 03/02 [facility] Lvl [facility] CHEM PANEL BUN 12 mg/dL 7 - 22 03/02 [facility] CHEM PANEL Creatinine 0.87 mg/dL 0.50 - 03/02 [facility] 1.40 [facility] CHEM PANEL Chloride Lvl 113 meq/L 95 - 109 03/02 2017 [facility] CHEM PANEL CO2 19 meq/L 24 - 32 03/02 [facility] CHEM PANEL AGAP 17.0 meq/L 10.0 - 03/02 [facility] 20.0 [facility] CHEM PANEL Calcium Lvl 8.3 mg/dL 8.5 - 10.5 03/02 [facility] CHEM PANEL Glucose Lvl 124 mg/dL 70 - 99 03/02 2017 [facility] HEMATOLOGY Platelet See Note 3 133 - 450 03/02 Result Comment: Platelets clumped in EDTA, unable to estimate, suggest recollection in a blue top tube with an order for "Blue Top Platelet Count" Analyzer gave a Platelet Count of 126. [facility] (03/02/18 2:10 AM) [place] HEMATOLOGY MPV See Note 7.4 - 10.4 03/02 [facility] (03/02/18 2:10 AM) [place] HEMATOLOGY RBC X 10x6 4.38 M/CMM 4.20 - 03/02 5.40 [facility] HEMATOLOGY WBC X 10x3 16.5 K/CMM 3.7 - 10.4 03/[address] HEMATOLOGY MCV 72.6 fL 80.0 - 03/02 98.0 [facility] HEMATOLOGY Hct 31.8 % 36.0 - 03/02 48.0 [facility] HEMATOLOGY MCHC 30.7 g/dL 32.0 - 07 36.0 [facility] HEMATOLOGY MCH 22.3 pg 27.0 - 03/02 31.0 [facility] HEMATOLOGY Hgb 9.8 g/dL 12.0 - 03/02 16.0 [facility] HEMATOLOGY RDW 20.1 % 11.5 - 07/04 14.5 [facility] HEMATOLOGY Monocytes 4.9 % 2.0 - 12.0 03/02 [facility] HEMATOLOGY Segs-Bands # 15.1 K/CMM 1.5 - 8.1 03/[address] [place] [address] HEMATOLOGY Lymphocytes 3.8 % 20.0 - 07/04 40.0 [facility] HEMATOLOGY Segs 91.2 % 45.0 - 07/ 75.0 [facility] HEMATOLOGY Basophils 0.1 % 0.0 - 1.0 07/ [address] HEMATOLOGY Lymphocytes 0.6 K/CMM 1.0 - 5.5 07/ [facility] # /2017 [facility] HEMATOLOGY Monocytes # 0.8 K/CMM 0.0 - 0.8 03/02 [facility] HEMATOLOGY Microcyte 2+ None Seen 03/02 Medical *ABN* Center (03/02/18 2:10 AM) HEMATOLOGY Toxic Gran See Note 5 None Seen 03/02 [facility] Comment: Medical (03/02/18 2:10 AM) [place] HEMATOLOGY Neut Vac Moderate None Seen 03/02 [facility] *ABN* Center (03/02/18 2:10 AM) HEMATOLOGY Plt Morph Clumped 03/02 [facility] (03/02/18 2:10 AM) [place] ENDOCRINOLO hCG Tot null 03/01 [facility] GY [facility] HEMATOLOGY INR 1.33 0.85 - 03/01 [facility] 1. [facility] HEMATOLOGY PT 16.6 s 12.0 - 03/01 [facility] 14. [facility] Nephrostomy Nephrostomy EXAM: VIR LEFT NEPHROSTOMY PLACEMENT 03/01 - [facility] drain perc drain perc - [facility] unilateral unilateral DATE: 03/01/2018 3:23 PM CDT Center VR VR PROCEDURE(S) PERFORMED: Read by: Timothy Gomez MD Dictated Date/time: 03/02/18 21:45 1. Ultrasound-guided access to left kidney Electronically Signed by : Timothy Gomez MD 03/02/18 21:47 FINAL REPORT 2. Fluoroscopic guided placement off the nephrostomy tube INDICATION: 37 years old Female with pelviureteric obstruction and hydronephrosis presents for nephrostomy tube placement. FACULTY: Timothy Gomez MD RESIDENT/FELLOW/HYDRAULIC MODELING ENGINEER: None SUPERVISION: Not applicable ANESTHESIA/SEDATION: Moderate sedation PHYSICIAN SUPERVISED ANESTHESIA TIME: 30 min SPECIMEN: None DRAINS: None ESTIMATED BLOOD LOSS: Less than 10 cc COMPLICATIONS: None immediate FLUOROSCOPY TIME: 1.9 min RADIATION DOSE: 19.4 mGy PROCEDURE: After the risks, benefits, and alternatives of the procedure were explained to the patient, verbal and written consent were obtained and a copy was placed in the chart. The procedure site was marked. Th e patient was brought to the angiography suite and placed in the prone position. A time-out was performed. The Left flank was prepped and draped in the usual sterile fashion. IV Versed and Fentanyl were titrated for moderate sedation by a trained observer.1% Lidocaine was used to anesthetize the subcutaneous tissues overlying the kidney. The calyceal system was accessed under ultrasound guidance using an Shiva set and the Seldinger technique. After the system was allowed to decompress, a small volume of contrast was gently infused to con firm placement. Shiva set sheath was exchanged for a Rigelson wire and an 10 Fr nephrostomy tube was inserted over the wire under fluoroscopic guidance. Contrast was again gently infused to confirm placem ent. Nephrostomy tube was attached to bag drainage and 2-0 Prolene sutures were used to secure the tube to the skin. Sterile dressing was applied. The patient was transferred to the recovery room in stable condition. FINDINGS: See procedure section. IMPRESSION: 1. Left nephrostomy placed without complication. Plan: Routine exchange of nephrostomy tubes between [address] TIMOTHY GOMEZ was present for the procedure. CHEM PANEL Lactic Acid 1.5 mMol/L 0.5 - 2.2 03/01 [facility] /[address] [place] [address] CHEM PANEL Bili 0.3 mg/dL 0.0 - 1.0 03/01 [facility] Indirect [address] CHEM PANEL AST 23 unit/L 0 - 37 03/[address] CHEM PANEL ALT 21 unit/L 0 - 65 03/[address] CHEM PANEL Bili Direct 0.1 mg/dL 0.0 - 0.3 03/[address] CHEM PANEL Alk Phos 51 unit/L 39 - 136 03/[address] CHEM PANEL Bili Total 0.4 mg/dL 0.2 - 1.3 03/[address] CHEM PANEL Albumin Lvl 3.4 g/dL 3.5 - 5.0 03/[address] CHEM PANEL Total 8.2 g/dL 6.4 - 8.4 03/01 [facility] Protein [address] CHEM PANEL A/G Ratio 0.7 0.7 - 1.6 03/[address] CHEM PANEL Globulin 4.8 g/dL 2.7 - 4.2 03/[address] ELECTROLYTE AGAP 15.1 meq/L 10.0 - 03/01 [facility] S 20.0 [facility] ELECTROLYTE eGFR 88 03/01 Result Comment: The eGFR is calculated using the CKD-EPI formula. In most young, healthy individuals the eGFR will be >90 mL/ min/1.73m2. The eGFR declines with age. An eGFR of 60-89 may be normal in [facility] mL/min/1 some populations, particularly the elderly, for whom the CKD-EPI formula has not been extensively validated. Use of the eGFR is not recommended in the following populations: [address] Individuals with unstable creatinine concentrations, including patients and those with serious co-morbid conditions. Patients with extremes in muscle mass or diet. The data above are obtained from the National Kidney Disease Education Program (NKDEP) which additionally recommends that when the eGFR is used in patients with extremes of body mass index for purposes of drug dosing, the eGFR should be multiplied by the estimated BMI. ELECTROLYTE CO2 21 meq/L 24 - 32 03/[address] ELECTROLYTE Calcium Lvl 8.6 mg/dL 8.5 - 10.5 03/[address] ELECTROLYTE Potassium 4.1 meq/L 3.5 - 5.1 03/[address] ELECTROLYTE Sodium Lvl 137 meq/L 135 - 145 03/[address] ELECTROLYTE Creatinine 0.95 mg/dL 0.50 - 03/01 [facility] Lvl 1.40 [facility] ELECTROLYTE BUN 17 mg/dL 7 - 03/[address] ELECTROLYTE Chloride Lvl 105 meq/L 95 - 109 03/[address] ELECTROLYTE Glucose Lvl 109 mg/dL 70 - 99 03/[address] HEMATOLOGY Microcyte 2+ None Seen 03/[address]* [place] (03/01/18 3:34 AM) HEMATOLOGY Eosinophils 0.1 % 0.0 - 4.0 03/[address] HEMATOLOGY Monocytes 5.8 % 2.0 - 12.0 03/[address] HEMATOLOGY Segs 90.6 % 45.0 - 03/01 [facility] 75.[address] [place] [address] HEMATOLOGY Lymphocytes 3.3 % 20.0 - 03/01 [facility] 40.[address] [place] [address] HEMATOLOGY Segs-Bands # 22.3 K/CMM 1.5 - 8.1 03/[address] HEMATOLOGY Lymphocytes 0.8 K/CMM 1.0 - 5.5 03/01 [facility] # /2017 [facility] HEMATOLOGY Basophils 0.2 % 0.0 - 1.0 03/01 [facility] HEMATOLOGY Basophils # 0.1 K/CMM 0.0 - 0.2 03/01 [facility]2017 [facility] HEMATOLOGY Monocytes # 1.4 K/CMM 0.0 - 0.8 03/01 [facility]2017 [facility] HEMATOLOGY Hypochrom 1+ None Seen 03/01 Medical (03/01/18 3:34 AM) [place] HEMATOLOGY Polychrom slight 03/01 [facility] HEMATOLOGY Platelet 377 K/CMM 133 - 450 03/01 [facility] Count Blue [facility] HEMATOLOGY MCH 22.3 pg 27.0 - 03/01 [facility] 31.0 [facility] HEMATOLOGY MCHC 31.1 g/dL 32.0 - 03/01 [facility] 36.0 [facility] HEMATOLOGY Hct 33.6 % 36.0 - 03/01 [facility] 48.0 [facility] HEMATOLOGY Hgb 10.4 g/dL 12.0 - 03/01 [facility] 16.0 [facility] HEMATOLOGY WBC 24.6 K/CMM 3.7 - 10.4 03/01 [facility] HEMATOLOGY RBC 4.68 M/CMM 4.20 - 03/01 [facility] 5.40 [facility] HEMATOLOGY MCV 71.8 fL 80.0 - 03/01 [facility] 98.0 [facility] HEMATOLOGY RDW 19.6 % 11.5 - 03/01 [facility] 14.5 [facility] HEMATOLOGY MPV See Note 1 7.4 - 10.4 03/01 Result Comment: Platelets clumped in EDTA, unable to estimate, suggest recollection in a blue top tube with an order for "Blue Top Platelet Count" ordered and verified [facility] (03/01/18 3:34 AM) [place] HEMATOLOGY Platelet See Note 4 133 - 450 03/01 Result Comment: Platelets clumped in EDTA, unable to estimate, suggest recollection in a blue top tube with an order for "Blue Top Platelet Count" ordered and verified [facility] (03/01/18 3:34 AM) [place] URINE AND UA Leuk Est Small Negative 03/01 [facility] Medical *ABN* Center (03/01/18 3:28 AM) URINE AND UA pH 8.0 5.0 - 8.0 03/01 [facility] [address] [place] [address] URINE AND UA Spec Grav 1.010 <=1.030 03/[address] URINE AND UA Glucose Negative Negative 03/01 [facility] [address] [place] [address] (03/01/18 3:28 AM) [place] URINE AND UA Protein Trace Negative 03/01 [facility] *ABN* Center (03/01/18 3:28 AM) URINE AND UA Turbidity Cloudy Clear 03/01 [facility] [address] [place], [place] [address]ABN* [place] (03/01/18 3:28 AM) URINE AND UA Color Yellow Yellow 03/01 [facility] [address] [place] [address] *NA* [place] (03/01/18 3:28 AM) URINE AND UA Blood Small Negative 03/01 [facility] [address] [place], [place] [address]ABN* [place] (03/01/18 3:28 AM) URINE AND UA Bili Negative Negative 03/01 [facility] [address] [place], [place] [address]NA* [place] (03/01/18 3:28 AM) URINE AND UA Nitrite Positive Negative 03/01 [facility] [place] (03/01/18 3:28 AM) URINE AND UA 0.2 EU/dL 0.1 - 1.0 03/01 [facility] Urobilinogen /2017 [facility] URINE AND UA Ketones 15 mg/dL Negative 03/01 [facility] mg/dL /2017 [facility] URINE AND UA Mucus Few /LPF None Seen 03/01 [facility] STOOL /LPF /[address] [place] [address] URINE AND UA Amorph Moderate None Seen 03/01 [facility] Viky /HPF /HPF /2017 [facility] URINE AND UA Bacteria Many /HPF None Seen 03/01 [facility] STOOL /HPF /[address] [place] [address] URINE AND UA WBC 11-20 /HPF None Seen 03/01 [facility] STOOL /HPF /[address] [place] [address] URINE AND UA RBC 3-5 /HPF 0 - 2 03/[address] URINE AND UA Sq Epi Few /LPF Few /LPF 03/[address] Torso-Outsi Torso-Outsid EXAM: CT ABDOMEN AND PELVIS WITHOUT CONTRAST - [facility] de Consult e Consult CT /2017 - [facility] CT This report was dictated by a Carpenter Maintenance/Fellow. I have personally reviewed the images as Center well as the Resident's interpretation and agree with the findings. DATE: 03/01/2018 2:03 AM CDT Read by: Anthony Barrientos MD Resident: Anthony Barrientos MD Dictated Date/time: 03/01/18 02:16 Electronically Signed by: Bruno Carrizales MD 03/01/18 09:00 FINAL REPORT INDICATION: Torso-Outside Consult CT COMPARISON: 11/06/2017 TECHNIQUE: Volumetric CT acquisition of the abdomen and pelvis without the intravenous administration contrast. Axial, coronal and sagittal reconstructions. IV contrast: None. Oral contrast: None. DLP: 757 mGy*cm FINDINGS / IMPRESSION: The unenhanced liver spleen pancreas, adrenals and the gallbladder are grossly unremarkable. A pessary is noted, likely in the vagina. No dilated bowel loops. 1. Obstructive calculus at the left ureteropelvic junction measuring 5 mm resulting in moderate hydronephrosis and enlargement of the left kidney with moderate perinephric fat stranding 2. Left lower pole nonobstructive renal calculus and multiple nonobstructive renal calculi in the right kidney are present. 3. The urinary bladder is absent with a right lower quadrant ileal conduit. 4. Left ventriculoperitoneal shunt catheter terminates in the left hemithorax resulting in a moderate left pleural effusion. 5. Left lower quadrant loop colostomy is present. 6. Marked diastasis of the rectus abdominis muscle and bowel herniation. 7. Spina bifida and severe rotodextroscoliosis. 8. 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 9. Sacral decubitus ulcers. URINE CHEM U Preg Negative Negative 11/06 [facility] [address] [place] [address] (11/06/17 9:30 AM) [place] URINE AND UA RBC 3-5 /HPF 0 - 2 11/[address] URINE AND UA WBC 3-5 /HPF None Seen 11/06 [facility] STOOL /HPF /[address] [place] [address] URINE AND UA Mucus Rare /LPF None Seen 11/06 [facility] STOOL /LPF /[address] [place] [address] URINE AND UA Bacteria Few /HPF None Seen 11/06 [facility] STOOL /[facility] /[address] [place] [address] URINE AND UA Sq Epi Few /LPF Few /LPF 11/[address] URINE AND UA Amorph Few /HPF None Seen 11/06 [facility] Viky /HPF /[address] [place] [address] URINE AND UA Glucose Negative Negative 11/[address] (11/06/17 9:10 AM) [place] URINE AND UA Bili Negative Negative 11/06 [facility] [address] [place] [address] *NA* Center (11/06/17 9:10 AM) URINE AND UA Ketones Negative Negative 11/[address] *NA* [place] (11/06/17 9:10 AM) URINE AND UA Blood Negative Negative 11/06 [facility] [address] [place] [address] (11/06/17 9:10 AM) [place] URINE AND UA Nitrite Positive Negative 11/[address] *ABN* [place] (11/06/17 9:10 AM) URINE AND UA 0.2 EU/dL 0.1 - 1.0 11/06 [facility] Urobilinogen /[address] [place] [address] URINE AND UA Leuk Est Small Negative 11/06 [facility] [address] [place] [address] *ABN* [place] (11/06/17 9:10 AM) URINE AND UA Color Yellow Yellow 11/06 [facility] [address] [place] [address] *NA* [place] (11/06/17 9:10 AM) URINE AND UA Turbidity Cloudy Clear 11/06 [facility] [address] [place] [address] *ABN* [place] (11/06/17 9:10 AM) URINE AND UA Protein Trace Negative 11/06 [facility] [address] [place] [address] *ABN* [place] (11/06/17 9:10 AM) URINE AND UA Spec Grav 1.020 <=1.030 11/[address] URINE AND UA pH 8.5 5.0 - 8.0 11/[address] CHEM PANEL Globulin 4.6 g/dL 2.7 - 4.2 11/[address] CHEM PANEL A/G Ratio 0.7 0.7 - 1.6 11/[address] CHEM PANEL Total 8.0 g/dL 6.4 - 8.4 11/06 [facility] Protein [address] CHEM PANEL Albumin Lvl 3.4 g/dL 3.5 - 5.0 11/[address] CHEM PANEL Bili Direct 0.1 mg/dL 0.0 - 0.3 11/[address] CHEM PANEL Bili 0.3 mg/dL 0.0 - 1.0 11/06 [facility] CHEM PANEL ALT 30 unit/L 0 - 65 11/[address] CHEM PANEL Alk Phos 48 unit/L 39 - 136 11/[address] CHEM PANEL Bili Total 0.4 mg/dL 0.2 - 1.3 11/[address] CHEM PANEL AST 47 unit/L 0 - 37 11/[address] CHEM PANEL Lipase Lvl 317 unit/L 73 - 393 11/[address] ELECTROLYTE AGAP 16.8 meq/L 10.0 - 11/06 [facility] 20.0 [facility] ELECTROLYTE eGFR 132 11/06 Result Comment: The eGFR is calculated using the CKD-EPI formula. In most young, healthy individuals the eGFR will be > 90 mL/min/1.73m2. The eGFR declines with age. An eGFR of 60-89 may be normal in [facility] mL/min/1.7 some populations, particularly the elderly, for whom the CKD-EPI formula has not been extensively validated. Use of the eGFR is not recommended in the following populations: [address] Individuals with unstable creatinine concentrations, including patients and those with serious co-morbid conditions. Patients with extremes in muscle mass or diet. The data above are obtained from the National Kidney Disease Education Program (NKDEP) which additionally recommends that when the eGFR is used in patients with extremes of body mass index for purposes of drug dosing, the eGFR should be multiplied by the estimated BMI. ELECTROLYTE Calcium Lvl 9.1 mg/dL 8.5 - 10.5 11/06 [facility] ELECTROLYTE CO2 22 meq/L 24 - 32 11/[address] ELECTROLYTE Chloride Lvl 105 meq/L 95 - 109 11/[address] ELECTROLYTE Glucose Lvl 96 mg/dL 70 - 99 11/[address] ELECTROLYTE Creatinine 0.63 mg/dL 0.50 - 11/06 [facility] Lvl 1.40 [facility] ELECTROLYTE BUN 11 mg/dL 7 - 22 11/[address] ELECTROLYTE Sodium Lvl 139 meq/L 135 - 145 11/[address] ELECTROLYTE Potassium 4.8 meq/L 3.5 - 5.1 11/06 Result [facility] S Lvl Comment: Medical Specimen Center Moderately Hemolyzed. HEMATOLOGY Microcyte 1+ None Seen 11/06 Medical *ABN* Center (11/06/17 9:01 AM) HEMATOLOGY Anisocyte 1+ None Seen 11/06 [facility] *ABN* Center (11/06/17 9:01 AM) HEMATOLOGY Eosinophils 0.2 K/CMM 0.0 - 0.5 11/06 [facility] # /2017 [facility] HEMATOLOGY Hypochrom 1+ None Seen 11/06 Medical (11/06/17 9:01 AM) Center HEMATOLOGY Eosinophils 2.2 % 0.0 - 4.0 11/06 [facility] HEMATOLOGY Monocytes 10.3 % 2.0 - 12.0 11/06 [facility] HEMATOLOGY Basophils 0.4 % 0.0 - 1.0 11/06 [facility] HEMATOLOGY Lymphocytes 1.8 K/CMM 1.0 - 5.5 11/06 [facility] # /2017 [facility] HEMATOLOGY Segs-Bands # 7.5 K/CMM 1.5 - 8.1 11/06 [facility] HEMATOLOGY Monocytes # 1.1 K/CMM 0.0 - 0.8 11/06 [facility] HEMATOLOGY Plt Morph See Note 1 11/06 Result Comment: Due Medical (11/06/17 9:01 AM) to Center occassional clumps, the actual count may be slightly higher. HEMATOLOGY Segs 70.0 % 45.0 - 11/06 [facility] 75.0 [facility] HEMATOLOGY Lymphocytes 17.1 % 20.0 - 11/06 40.0 [facility] HEMATOLOGY Platelet 136 K/CMM 133 - 450 11/06 [facility] HEMATOLOGY MCH 23.9 pg 27.0 - 11/06 31.0 [facility] HEMATOLOGY RDW 22.9 % 11.5 - 11/06 [facility] 14.5 [facility] HEMATOLOGY MCHC 30.1 g/dL 32.0 - 11/06 [facility] 36.0 [facility] HEMATOLOGY Hct 33.3 % 36.0 - 11/06 [place] 48.0 [facility] HEMATOLOGY RBC 4.20 M/CMM 4.20 - 11/06 [facility] 5.40 /2018 [facility] HEMATOLOGY Hgb 10.0 g/dL 12.0 - 11/06 [facility] 16.0 [facility] HEMATOLOGY MCV 79.3 fL 80.0 - 11/06 [facility] 98.0 [facility] HEMATOLOGY WBC 10.7 K/CMM 3.7 - 10.4 11/06 [facility]2017 [facility] HEMATOLOGY MPV 9.0 fL 7.4 - 10.4 11/06 [facility] /2017 [facility] IMMUNOLOGY CDC HIV 4th Negative Negative 11/06 [facility] GEN /2017 Medical *NA* Center (11/06/17 8:43 AM) Abdomen/Pel Abdomen/Pelv EXAM: CT ABDOMEN AND PELVIS WITH CONTRAST 11/06 - [facility] vis w IV is w - Medical contrast CT contrast CT This report was dictated by a Carpenter Maintenance/Fellow. I have personally reviewed the images as Center well as the Resident's interpretation and agree with the findings. 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 Intermittent SBO, h/o resection and ostomy ADDITIONAL INFORMATION: None. COMPARISON: CT abdomen 11/14/2016. TECHNIQUE: Volumetric CT acquisition of the abdomen and pelvis after the intravenous administration contrast. Axial, coronal and sagittal reconstructions. Postcontrast phases: Venous and delayed. IV contrast: 100 cc Omnipaque [id number] Enteric contrast: None. DLP: 906 mGy-cm FINDINGS: Lines, tubes and hardware: None. Lower thorax: Moderate left pleural effusion is noted with ventricular pleural catheter within it. Partially visualized catheter within the anterior abdominal wall. Liver: Normal. Biliary tree: No intra- or extrahepatic biliary ductal dilation. Gallbladder: Normal. No CT evidence of gallstones. Pancreas: Normal. Spleen: The spleen is normal in size. A 1.2 cm hypodensity in the anterior aspect (12/14) is unchanged from 11/13/2016 suggestive of benign etiology such as hemangioma. Adrenals: Normal. Kidneys and ureters: Cortical scarring noted in the atrophic right kidney. Tiny hypodensity in the left interpolar region is unchanged from prior study and likely represent cyst. Bladder: Normal. Reproductive organs: The uterus shows hypodense masses in the anterior and posterior faulkner, likely representing fibroids which have increased in size compared to prior study. The posterior wall fibroid measures 3.8 cm compared to 2.9 cm previously and the anterior wall fibroid measures 6 cm compared to 2.8 cm previously. There is a 3.2 cm subserosal fibroid in the left lateral wall (7/74). Pessary is present. Gastrointestinal tract: Stomach: Normal. Small bowel: Postsurgical changes noted in the small bowel. Focal segment of small bowel distal to the anastomosis (likely surgical clips series 7 image 12) is dilated and has fluid level but there is n o obstruction and this appearance is unchanged from November 14, 2016. Colon: Left lower quadrant colostomy noted. No evidence for obstruction. Peritoneum, mesentery and retroperitoneum: No free air, ascites or loculated fluid. Lymph nodes: Normal. Vasculature: Normal. Bones: No acute abnormality. 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 Soft tissues: Urostomy noted in the right lower quadrant and colostomy in the left lower quadrant. Soft tissue thickening in the posterior aspect of lower pelvis likely represents decubitus ulcer/postsurgical change. Eventration of the peritoneum with diastasis of the thinned rectus muscle. IMPRESSION: 1. No evidence of bowel obstruction. Dilated focal segment of small bowel at the anastomotic site is unchanged from November 16, 2016 and is likely due to chronic postsurgical change possibly due to denervation. 2. Interval slight increase in size of uterine fibroids. 3. Moderate left pleural effusion with partially seen catheter. 4. Other incidental findings described above are stable. Ventriculop Ventriculope EXAM: [place] [facility] Medical sh[facility] study shunt study This report was dictated by a Carpenter Maintenance/Fellow. I have personally reviewed the images as Center [facility] well as the Resident's interpretation and agree with the findings. DATE: 11/14/2016 4:02 AM CDT Read by: Horace Delacruz MD Resident: Horace Delacruz MD Dictated Date/time: 11/16/16 13:57 Electronically Signed by: Dorys Krause MD 03/21/17 10:42 FINAL REPORT INDICATION: Headache(s). COMPARISON: CT abdomen pelvis on 11/14/2016 TECHNIQUE: After administration of 0.5 mCi of Tc 99m DTPA in the reservoir of the shunt aseptically, multiple sequential static images were obtained throughout 30 minutes of the head, chest and abdomen. FINDINGS: Tracer is seen at the site of injection in the left side of the head and within the shunt tubing extending along the left side of the neck and ending within the left hemithorax immediately after tracer administration. There is subsequent drainage of of the radiotracer material into the left pleural space by 30 minutes. Tracer pooling in the left pleural effusion is noted shortly after injection of the tracer in the cerebral shunt reservoir. No tracer seen in the abdomen. Findings are suggestive of patent ventriculopleural shunt tubing with no evidence of obstruction or leaks. IMPRESSION: Patent ventriculopleural shunt extending along the left neck to the left pleural space with no evidence of obstruction or leaks. Pooling of tracer in the left pleural effusion is identified. Abdomen 1 v Abdomen 1 v EXAM: XR ABDOMEN 1 VIEW 11/14 [facility] - Medical Placement Placement DX Center DX DATE: 11/14/2016 10:41 AM CDT Read by: Nori Tiwari MD Dictated Date/time: 11/14/16 12:32 Electronically Signed by: Nori Tiwari MD 11/14/16 12:33 FINAL REPORT INDICATION: Line Placement ADDITIONAL INFORMATION: None. COMPARISON: None. TECHNIQUE: Limited AP view of the abdomen for tube placement assessment. Number of images: 1 FINDINGS: A nasogastric tube side port overlies the gastric fundus. Moderate left pleural effusion is again seen. IMPRESSION: 1. A nasogastric tube side port overlies the gastric fundus Abdomen 1 v Abdomen 1 v EXAM: XR ABDOMEN [address] [place] [address] - Medical Placement Placement DX This report was dictated by a Carpenter Maintenance/Fellow. I have personally reviewed the images as Center DX well as the Resident's interpretation and agree with the findings. DATE: 11/14/2016 5:33 AM CDT Read by: Palak Gentile MD Resident: Palak Gentile MD Dictated Date/time: 11/14/16 06:20 Electronically Signed by: Ash Lafleur MD 11/14/16 07:38 FINAL REPORT INDICATION: Line Placement COMPARISON: Outside CT abdomen pelvis dated 11/13/2016. TECHNIQUE: AP view of the abdomen. FINDINGS: Lines, tubes and hardware: Tip of the nasogastric tube is likely within the proximal stomach. A tip of the ventriculopleural catheter projects over the upper left abdomen, but is noted to be within the posterior pleural space on CT. Lower thorax: Hazy opacity over the right lung base may represent subsegmental atelectasis. There is a left-sided pleural effusion. Bowel: There are abnormally dilated loops of small bowel. Other organs: No abnormal mass or organomegaly seen. Calcifications: No abnormal calcifications found. Bones: There is severe scoliosis of the thoracolumbar spine. IMPRESSION: 1. Tip of the nasogastric tube is likely within the proximal stomach. 2. Abnormally dilated loops of small bowel concerning for small bowel obstruction. Torso-Outsi Torso-Outsid EXAM: CT ABDOMEN AND PELVIS WITH CONTRAST 11/14 [facility] Consult e Consult - [facility] CT Center DATE: 11/14/2016 4:02 AM CDT Read by: Teresa Newsome MD Dictated Date/time: 11/14/16 08:57 Electronically Signed by: Teresa Newsome MD 11/14/16 09:31 FINAL REPORT INDICATION: - outside study ADDITIONAL INFORMATION: None. COMPARISON: None. TECHNIQUE: CT abdomen pelvis with intravenous and enteric contrast was performed at [facility]. Arterial and venous phase imaging were performed. Second interpretation was requested. FINDINGS: Lines, tubes and hardware: A partially visualized pleural catheter tip is in the left pleural space. Partially visualized catheter in the subcutaneous tissues of the anterior abdominal wall terminates t he peritoneal space of the upper abdomen, likely representing a ventriculoperitoneal shunt. Lower thorax: A large left pleural effusion is associated with the pleural catheter. Bibasilar subsegmental atelectasis is present. Liver: Normal. Biliary tree: No intra- or extrahepatic biliary ductal dilation. Gallbladder: Normal. No CT evidence of gallstones. Pancreas: Normal. Spleen: A 1.4 cm hypodensity in the spleen is nonspecific. Adrenals: Normal. Kidneys and ureters: The right kidney is atrophic with multifocal regions of cortical scarring. The left kidney demonstrates a few areas of cortical scarring. A coarse calcification is seen at the martha x of the mid right kidney. No hydronephrosis is present. The ureters empty into the ileum with a urostomy in the right lower quadrant. Reproductive organs: No CT abnormality. Gastrointestinal tract: The stomach is dilated and distended with positive enteric contrast. Small bowel loops are dilated throughout the abdomen, measuring up to 4 cm in diameter. Transition point is s een in the anterior aspect of the right lower quadrant (series 501 image 51 through 53 and series 502 image 25). No pneumatosis or portal venous gas. There is a large anterior abdominal wall defect with diastases of the abdominal musculature and protrusion of the peritoneal contents anteriorly with multiple small bowel loops in this region. A left lower quadrant colostomy is present. A moderate colonic stool burden is visualized. Appendix: Normal. Peritoneum and retroperitoneum: No free intraperitoneal air. Small amount of fluid is present in the pelvis. Lymph nodes: Normal. Vasculature: The aorta and IVC are normal in caliber. Bones: An open spinal dysraphic defect is present in L2 through the sacrum , consistent with history of spina bifida. The bilateral acetabula are dysplastic. Complete ostial lysis of the right femoral he ad is redemonstrated with soft tissue density and ossification in the right hip joint space. Soft tissues: A 1 x 1.7 cm nodular focus of soft tissue is seen in the abdomen adjacent to the ureteral anastomosis with the ileum, which is nonspecific in nature but could be secondary to postsurgical granulation tissue/scarring. Finding is decreased in size from 2011. Soft tissue thickening posterior aspect of the lower pelvis likely represents a sacral decubitus ulcer. IMPRESSION: 1. Fluid-filled, dilated small bowel with transition point in the right lower quadrant, as described above, consistent with small bowel obstruction. 2. Unchanged large anterior abdominal wall defect with diastases of the muscles and protrusion of the small bowel in this region. 3. Postsurgical change of urostomy and colostomy. 4. Atrophic right kidney with multifocal areas of cortical scarring. 5. Large left pleural effusion with partially visualized pleural catheter. 6. Partially visualized catheter terminating in the peritoneum along the anterior abdominal wall likely represents a ventriculoperitoneal shunt. 7. No significant change in findings of spina bifida and bilateral hip dysplasia, right greater than left. Vital Signs Vital Sign Value Date Comments Source Temperature Oral (F) 98.9 F 03/04/2018 [facility] Heart Rate 67 03/04/2018 [facility] Systolic (mm Hg) 135 03/04/2018 [facility] Diastolic (mm Hg) 91 03/04/2018 [facility] Respitory Rate 20 03/04/2018 [facility] Systolic (mm Hg) 150 03/04/2018 [facility] Diastolic (mm Hg) 91 03/04/2018 [facility] Temperature Oral (F) 98.4 F 03/04/2018 [facility] Heart Rate 85 03/04/2018 [facility] Respitory Rate 18 03/04/2018 [facility] Systolic (mm Hg) 147 03/04/2018 [facility] Diastolic (mm Hg) 95 03/04/2018 [facility] Temperature Oral (F) 98.3 F 03/04/2018 [facility] Respitory Rate 20 03/04/2018 [facility] Heart Rate 82 03/04/2018 [facility] BMI Calculated 28.85 03/01/2018 [facility] Weight 67 03/01/2018 [facility] Height 152.4 cm 03/01/2018 [facility] Weight 67.6 03/01/2018 [facility] Systolic (mm Hg) 111 11/06/2017 [facility] Diastolic (mm Hg) 75 11/06/2017 [facility] Respitory Rate 18 11/06/2017 [facility] Temperature Oral (F) 98.4 F 11/06/2017 [facility] Respitory Rate 20 11/06/2017 [facility] Systolic (mm Hg) 123 11/06/2017 [facility] Diastolic (mm Hg) 85 11/06/2017 [facility] Systolic (mm Hg) 108 11/06/2017 [facility] Diastolic (mm Hg) 66 11/06/2017 [facility] Respitory Rate 18 11/06/2017 [facility] Temperature Oral (F) 98.9 F 11/06/2017 [facility] Weight 67.727 11/06/2017 [facility] Heart Rate 98 11/06/2017 [facility] Temperature Oral (F) 99.4 F 11/06/2017 [facility] Encounters Location Location Encounter Encounter Reason Attending ADM DC Status Source Details Type Number For Provider Date Date [facility] [id number] [place] 11/06 11/06 [facility] /2017 [facility] Inpatient [id number] [place] 03/01 07/ [facility] Wyatt Onyems /2017 [facility] Procedures Procedure Code Date Perfomer Comments Source Colostomy [id number] [facility] Construction of [id number] [facility] urostomy [facility] Reopening of [id number] [facility] abdomen and Medical re-exploration of Center intra-abdominal operation site and surgical arrest of postoperative bleeding
--- OUTSIDE RECORDS SUMMARY | 2018-06-10 11:15 | XMS REPORT | Summary of Care ---
:1980 Author Organization [facility] Address [address] [place] [id number]- Encounter HQ Hasmukh_[email or web address](FIN) [id number] Date(s): 02/28/18 - 03/04/[address] Professional Services provided by [facility] [place] [address]- Discharge Disposition: Home or Self Care Attending Physician: Randall Lucas MD Admitting Physician: Randall Lucas MD Vital Signs Most recent to oldest [Reference 1 2 3 Range]: Height 152.4 cm (03/01/18 3:49 PM) Temperature Oral [96.4-99.1 DegF] 98.9 DegF 98.4 DegF 98.3 DegF (03/04/18 7:22 AM) (03/04/18 6:06 AM) (03/04/18 4:30 AM) Blood Pressure [90-140/60-90 mmHg] 135/91 mmHg 150/91 mmHg 147/95 mmHg (03/04/18 7:22 AM) *HI* *HI* (03/04/18 6:06 AM) (03/04/18 4:30 AM) Respiratory Rate [14-20 BRMIN] 20 BRMIN 18 BRMIN 20 BRMIN (03/04/18 7:22 AM) (03/04/18 6:06 AM) (03/04/18 4:30 AM) Peripheral Pulse Rate [60-100 bpm] 67 bpm 85 bpm 82 bpm (03/04/18 7:22 AM) (03/04/18 6:06 AM) (03/04/18 4:30 AM) Weight 67 kg 67.6 kg 67.6 kg (03/01/18 3:49 PM) (03/01/18 3:18 PM) (03/01/18 3:18 PM) Body Mass Index 28.85 m2 (03/01/18 3:49 PM) Problem List Condition Effective Dates Status Health Status Informant Clotting disorder(Confirmed) Resolved Colostomy(Confirmed) Active Colostomy present(Confirmed) Resolved Hypertension(Confirmed) Resolved Depression(Confirmed) Resolved MRSA - see comments(Confirmed)1 05/06/08 Active Nephrostomy(Confirmed) Active Pain(Confirmed) 09/18/10 Active Acute ; Pleural effusion on left(Confirmed) Resolved Pleural effusion(Confirmed) Active Pneumothorax(Confirmed) Resolved Spina bifida(Confirmed) Resolved Sepsis(Confirmed) Resolved 17/03/08 Nares Allergies, Adverse Reactions, Alerts Substance Reaction Severity Status vancomycin Active morphine Active Latex Active Food Chocolate Active Rubber Active Medications acetaminophen-hydrocodone 325 mg-5 mg oral tablet 2 tab, Route: PO, Drug Form: TAB, Dosing Weight 67.727, kg, Q4H, PRN Pain Score 7-10, Start date: 03/01/18 6:21:00 CDT, Duration: 30 day, Stop date: 03/31/18 6: 20:00 CDT Notes: (Same as: Cook 325/5) Do not exceed 4gm/day of acetaminophen. Start Date: 03/01/18 Stop Date: 03/04/18 Status: Discontinuedamoxicillin 875 mg, 1 tab, Route: PO, Drug form: TAB, Q12H, Dosing Weight 67, kg, Priority: NOW, Start date: 03/03/18 18:57:00 CDT, Duration: 30 day, Stop date: 04/02/18 9: 00:00 CDT Notes: (Same as: Amoxil) Start Date: 03/03/18 Stop Date: 03/04/18 Status: Discontinuedamoxicillin 875 mg oral tablet 875 mg=1 tab, PO, Q12H, X 10 day, # 20 tab, 0 Refill(s), Pharmacy: [facility] [id number] Start Date: 03/03/18 Stop Date: 03/13/18 Status: SuspendedANES acetaminophen 1,000 mg, Route: PO, Drug form: TAB, ONCE, Dosing Weight 67, kg, PRN Pain Score 1-3, Start date: 03/01/18 18:07:00 CDT Start Date: 03/01/18 Stop Date: 03/01/18 Status: DiscontinuedANES flumazenil 0.2 mg, Route: IVP, PRN, Dosing Weight 67, kg, PRN Benzodiazepine Reversal, Initial dose, Start date: 03/01/18 18:07:00 CDT, Duration: 30 day, Stop date: 18:06:00 CDT Start Date: 03/01/18 Stop Date: 03/01/18 Status: DiscontinuedANES hydrALAZINE 10 mg, Route: IVP, Q20Min, Dosing Weight 67, kg, PRN Elevated BP, Start date: 18:07:00 CDT,Duration: 2 doses or times, Stop date: Limited # of times Start Date: 03/01/18 Stop Date: 03/01/18 Status: DiscontinuedANES HYDROmorphone 0.2 mg, Route: IVP, Q5Min, Dosing Weight 67, kg, PRN Pain Score 7-10, Start date : 03/01/18 18:07:00 CDT, Duration: 4 doses or times, Stop date: Limited # of times Start Date: 03/01/18 Stop Date: 03/01/18 Status: DiscontinuedANES labetalol 10 mg, Route: IVP, Q5Min, Dosing Weight 67, kg, PRN Elevated BP, Start date: 11/14 18:07:00 CDT, Duration: 5 doses or times, Stop date: Limited # of times Start Date: 03/01/18 Stop Date: 03/01/18 Status: DiscontinuedANES naloxone 0.4 mg, Route: IVP, Q2MIN, Dosing Weight 67, kg, PRN Narcotic Reversal, Start date: 03/01/18 18:07:00 CDT, Duration: 8 doses or times, Stop date: Limited # of times Start Date: 03/01/18 Stop Date: 03/01/18 Status: DiscontinuedANES ondansetron 4 mg, Route: IVP, ONCE, Dosing Weight 67, kg, PRN Nausea & Vomiting, Start date: 03/01/18 18:07:00 CDT Start Date: 03/01/18 Stop Date: 03/01/18 Status: DiscontinuedANES oxyCODONE 10 mg, Route: PO, Drug form: TAB, Q4H, Dosing Weight 67, kg, PRN Pain Score 7-10 , Start date: 03/01/18 18:07:00 CDT, Duration: 30 day, Stop date: 03/31/18 18:06 :00 CDT Start Date: 03/01/18 Stop Date: 03/01/18 Status: DiscontinuedANES oxyCODONE 5 mg, Route: PO, Drug form: TAB, Q4H, Dosing Weight 67, kg, PRN Pain Score 4-6, Start date: 03/01/1818:07:00 CDT, Duration: 30 day, Stop date: 03/31/18 18:06: 00 CDT Start Date: 03/01/18 Stop Date: 03/01/18 Status: DiscontinuedAugmentin 875 mg oral tablet 875 mg=1 tab, PO, Q12H, X 10 day, # 20 tab, 0 Refill(s), Pharmacy: [facility] [id number] Start Date: 03/03/18 Stop Date: 03/03/18 Status: Discontinuedbetamethasone dipropionate, augmented topical 0.05% cream 1 appl, Route: TOP, BID, Drug form: CRM, Start date: 03/01/18 9:00:00 CDT, Duration: 30 day, Stop date: 03/30/18 17:00:00 CDT Notes: (betamethasone dip, aug 0.05% 15gm CRM) (Same As: Diprolene AF) Start Date: 03/01/18 Stop Date: 03/01/18 Status: DiscontinuedcefTRIAXone + Sodium Chloride 0.9% IV 100 mL 2 gm, Route: IVPB, [id number], Dosing Weight 67.727, kg, Start date: 03/01/18 7:00: 00 CDT, Duration: 7 day, Stop date: 03/07/18 19:00:00 CDT, ABX Indication: Urinary Tract Infection Notes: (Same As: Rocephin).Use with 100 mL NS and infuse over 30 min MEDICATION WASTE Product Size: 2000 mgProduct Wasted: ___ mg Start Date: 03/01/18 Stop Date: 03/01/18 Status: DiscontinuedcefTRIAXone + sterile water 10 mL 1 gm, Route: IV, [id number], Dosing Weight 67.6, kg, Start date: 03/02/18 8:00:00 CDT, Duration: 13 day, Stop date: 03/14/18 8:00:00 CDT, ABX Indication: Urinary Tract Infection Notes: (Same As: Rocephin). MEDICATION WASTE Product Size: 1000 mgProduct Wasted: ___ mg Start Date: 03/02/18 Stop Date: 03/03/18 Status: DiscontinuedDilaudid 0.5 mg, Route: IVP, ONCE, Dosing Weight 67.6, kg, Priority: STAT, Start date: 15:48:00 CDT,Stop date: 03/01/18 15:48:00 CDT Start Date: 03/01/18 Stop Date: 03/01/18 Status: Completeddocusate 100 mg, 1 cap, Route: PO, Drug form: CAP, BID, Dosing Weight 67.727, kg, Start date: 03/01/18 9:00:00 CDT, Duration: 30 day, Stop date: 03/30/18 17:00:00 CDT Notes: (Same as: Colace) (Do Not Crush) Start Date: 03/01/18 Stop Date: 03/04/18 Status: DiscontinuedfentaNYL 50 microgram, 1 mL, Route: IVP, Drug form: INJ, ONCE, Dosing Weight 67.727, kg, Priority: STAT, Start date: 03/01/18 0:51:00 CDT, Stop date: 03/01/18 0:51:00 CDT Notes: (Same as: Sublimaze) Preservative free. Start Date: 03/01/18 Stop Date: 03/01/18 Status: CompletedfentaNYL 25 microgram, 0.5 mL, Route: IVP, Drug form: INJ, ONCE, Dosing Weight 67.727, kg , Priority: STAT, Start date: 03/01/18 4:54:00 CDT, Stop date: 03/01/18 4:54:00 CDT Notes: (Same as: Sublimaze) Preservative free. Start Date: 03/01/18 Stop Date: 03/01/18 Status: Completedheparin 5000 units/mL injectable solution 5,000 unit, 1 mL, Route: SUB-Q, Drug form: INJ, Q8H, Dosing Weight 67.727, kg, Start date: 03/01/18 8:00:00 CDT, Duration: 30 day, Stop date: 03/31/18 0:00:00 CDT Notes: porcine heparin Start Date: 03/01/18 Stop Date: 03/04/18 Status: DiscontinuedIsolyte S PH-7.4 (Bolus) IV 1,000 mL, 0 ml/hr, Route: IV, Drug Form: SOLN, Dosing Weight 67.727, kg, ONCE, Start date: 03/01/18 4:50:00 CDT, Stop date: 03/01/18 4:50:00 CDT Notes: (Same as: Isolyte S PH 7.4) Start Date: 03/01/18 Stop Date: 03/01/18 Status: CompletedketOROLAC 30 mg/mL injectable solution 30 mg, 1 mL, Route: IVP, Drug form: INJ, Q6H, Dosing Weight 67.727, kg, PRN Pain Score 4-6, Start date: 03/01/18 6:52:00 CDT, Duration: 4 day, Stop date: 6:51:00 CDT Notes: (Same as:Toradol) IV bolus must be given >15 seconds. Give IM administration slowly and deeply into the muscle.Not for use > 4 days MEDICATION WASTE Product Size: 30 mgProduct Wasted: ___ mg Start Date: 03/01/18 Stop Date: 03/04/18 Status: DiscontinuedNS 1,000 mL 1,000 mL, Rate: 100 ml/hr, Infuse over: 10 hr, Route: IV, Dosing Weight 67.727 kg, Total Volume: 1,000, Start date: 03/01/18 6:57:00 CDT, Duration: 30 day, Stop date: 03/31/18 6:56:00 CDT, 1.72, m2 Start Date: 03/01/18 Stop Date: 03/03/18 Status: Discontinuedondansetron 4 mg, 2 mL, Route: IVP, Drug form: INJ, Q6H, Dosing Weight 67.727, kg, PRN Nausea & Vomiting, Start date: 03/01/18 6:21:00 CDT, Duration: 30 day, Stop date: 03/31/18 6:20:00 CDT Notes: (Same as: Lisa) MEDICATION WASTE Product Size: 4 mgProduct Wasted: _0__ mg Start Date: 03/01/18 Stop Date: 03/04/18 Status: Discontinuedondansetron 4 mg, 2 mL, Route: IVP, Drug form: INJ, ONCE, Dosing Weight 67.727, kg, Priority : STAT, Start date: 03/01/18 0:51:00 CDT, Stop date: 03/01/18 0:51:00 CDT Notes: (Same as: Lisa) MEDICATION WASTE Product Size: 4 mgProduct Wasted: ___ mg Start Date: 03/01/18 Stop Date: 03/01/18 Status: Completedondansetron 4 mg, Route: IVP, Drug form: INJ, ONCE, Dosing Weight 67.727, kg, Priority: STAT , Start date: 03/01/18 0:49:00 CDT, Stop date: 03/01/18 0:49:00 CDT Start Date: 03/01/18 Stop Date: 03/01/18 Status: Discontinuedpotassium chloride 20 mEq, 1 tab, Route: PO, Drug form: ERTAB, ONCE, Dosing Weight 67, kg, Start date: 03/03/18 11:36:00 CDT, Stop date: 03/03/18 11:36:00 CDT Notes: (Same as: K-Dur 20)"Do Not Crush"For patients unable to swallow tablet, dissolve in one half glass of water. Allow about 2 minutes for the tablets to disintegrate. Stir before giving to prepare slurry and administer.Please exclude Patients with feeding tube less than 14 [place] (Dobhoff, J-tube etc) and pediatric and patients. With food and full glass of water Start Date: 03/03/18 Stop Date: 03/03/18 Status: Completedsertraline 50 mg, 1 tab, Route: PO, Drug form: TAB, Daily, Dosing Weight 67.727, kg, Start date: 03/01/18 9:00:00 CDT, Duration: 30 day, Stop date: 03/30/18 9:00:00 CDT Notes: (Same as: Zoloft) Start Date: 03/01/18 Stop Date: 03/04/18 Status: Discontinuedsugammadex 500 mg, 5 mL, Route: IV, Drug form: SOLN, ONCALL, Start date: 03/01/18 18:00:00 CDT, Duration: 1 doses or times, Stop date: 03/01/18 18:15:00 CDT Notes: (Same as: Bridion) Start Date: 03/01/18 Stop Date: 03/04/18 Status: DiscontinuedXarelto 20 mg oral tablet 20 mg=1 tab, PO, QPM, # 30 tab, 0 Refill(s), Pharmacy: [facility] [id number] Start Date: 03/03/18 Stop Date: 04/02/18 Status: OrderedZofran 4 mg, 2 mL, Route: IVP, Drug form: INJ, Q8H, Dosing Weight 67.6, kg, PRN Nausea , Start date: 03/01/18 12:40:00 CDT, Duration: 30 day, Stop date: 03/31/18 12:39 :00 CDT Notes: (Same as: Zofran) MEDICATION WASTE Product Size: 4 mgProduct Wasted: ___ mg Start Date: 03/01/18 Stop Date: 03/04/18 Status: Discontinued Results ELECTROLYTES Most recent to oldest 1 2 3 [Reference Range]: Sodium Lvl [135-145 mEq/L] 148 mEq/L 145 mEq/L 137 mEq/L *HI* (03/02/18 2:10 AM) (03/01/18 3:34 AM) (03/03/18 1:02 AM) Potassium Lvl [3.5-5.1 mEq/L] 3.1 mEq/L 4.0 mEq/L 4.1 mEq/L *LOW* (03/02/18 2:10 AM) (03/01/18 3:34 AM) (03/03/18 1:02 AM) Chloride Lvl [95-109 mEq/L] 116 mEq/L 113 mEq/L 105 mEq/L *HI* *HI* (03/01/18 3:34 AM) (03/03/18 1:02 AM) (03/02/18 2:10 AM) CO2 [24-32 mEq/L] 20 mEq/L 19 mEq/L 21 mEq/L *LOW* *LOW* *LOW* (03/03/18 1:02 AM) (03/02/18 2:10 AM) (03/01/18 3:34 AM) AGAP [10.0-20.0 mEq/L] 15.1 mEq/L 17.0 mEq/L 15.1 mEq/L (03/03/18 1:02 AM) (03/02/18 2:10 AM) (03/01/18 3:34 AM) CHEM PANEL Most recent to oldest 1 2 3 [Reference Range]: Creatinine Lvl [0.50-1.40 0.56 mg/dL 0.87 mg/dL 0.95 mg/dL mg/dL] (03/03/18 1:02 AM) (03/02/18 2:10 AM) (03/01/18 3:34 AM) eGFR 137 mL/min/1.73m2 1 98 mL/min/1.73m2 2 88 mL/min/1.73m2 3 *NA* *NA* *NA* (03/03/18 1:02 AM) (03/02/18 2:10 AM) (03/01/18 3:34 AM) BUN [7-22 mg/dL] 7 mg/dL 12 mg/dL 17 mg/dL (03/03/18 1:02 AM) (03/02/18 2:10 AM) (03/01/18 3:34 AM) Glucose Lvl [70-99 mg/dL] 89 mg/dL 124 mg/dL 109 mg/dL (03/03/18 1:02 AM) *HI* *HI* (03/02/18 2:10 AM) (03/01/18 3:34 AM) Total Protein [6.4-8.4 8.2 g/dL g/dL] (03/01/18 3:34 AM) Albumin Lvl [3.5-5.0 g/dL] 3.4 g/dL *LOW* (03/01/18 3:34 AM) Globulin [2.7-4.2 g/dL] 4.8 g/dL *HI* (03/01/18 3:34 AM) A/G Ratio [0.7-1.6] 0.7 (03/01/18 3:34 AM) Calcium Lvl [8.5-10.5 8.2 mg/dL 8.3 mg/dL 8.6 mg/dL mg/dL] *LOW* *LOW* (03/01/18 3:34 AM) (03/03/18 1:02 AM) (03/02/18 2:10 AM) ALT [0-65 unit/L] 21 unit/L (03/01/18 3:34 AM) AST [0-37 unit/L] 23 unit/L (03/01/18 3:34 AM) Alk Phos [39-136 unit/L] 51 unit/L (03/01/18 3:34 AM) Bili Total [0.2-1.3 mg/dL] 0.4 mg/dL (03/01/18 3:34 AM) Bili Direct [0.0-0.3 mg/dL] 0.1 mg/dL (03/01/18 3:34 AM) Bili Indirect [0.0-1.0 0.3 mg/dL mg/dL] (03/01/18 3:34 AM) Lactic Acid Lvl [0.5-2.2 1.5 mMol/L mMol/L] (03/01/18 3:34 AM) 1Result Comment: The eGFR is calculated using the CKD-EPI formula. In most young , healthy individualsthe eGFR will be >90 mL/min/1.73m2. The eGFR declines with age. An eGFR of 60-89 may be normal insome populations, particularly the elderly, for whom the CKD-EPI formula has not been extensively validated. Use of the eGFR is not recommended in the following populations: Individuals with unstable creatinine concentrations, including patients and those with serious co-morbid conditions. Patients with extremes in muscle mass or diet. The data above are obtained from the National Kidney Disease Education Program ( NKDEP) which additionally recommends that when the eGFR is used in patients with extremes of body mass index for purposesof drug dosing, the eGFR should be multiplied by the estimated BMI.2Result Comment: The eGFR is calculated using the CKD-EPI formula. In most young, healthy individualsthe eGFR will be >90 mL/min/1.73m2. The eGFR declines with age. An eGFR of 60-89 may be normal insome populations, particularly the elderly, for whom the CKD-EPI formula has not been extensively validated. Use of the eGFR is not recommended in the following populations: Individuals with unstable creatinine concentrations, including patients and those with serious co-morbid conditions. Patients with extremes in muscle mass or diet. The data above are obtained from the National Kidney Disease Education Program ( NKDEP) which additionally recommends that when the eGFR is used in patients with extremes of body mass index for purposesof drug dosing, the eGFR should be multiplied by the estimated BMI.3Result Comment: The eGFR is calculated using the CKD-EPI formula. In most young, healthy individualsthe eGFR will be >90 mL/min/1.73m2. The eGFR declines with age. An eGFR of 60-89 may be normal insome populations, particularly the elderly, for whom the CKD-EPI formula has not been extensively validated. Use of the eGFR is not recommended in the following populations: Individuals with unstable creatinine concentrations, including patients and those with serious co-morbid conditions. Patients with extremes in muscle mass or diet. The data above are obtained from the National Kidney Disease Education Program ( NKDEP) which additionally recommends that when the eGFR is used in patients with extremes of body mass index for purposesof drug dosing, the eGFR should be multiplied by the estimated BMI.ENDOCRINOLOGY Most recent to oldest [Reference Range]: 1 2 3 hCG Tot <1 mIU/mL *NA* (03/01/18 2:36 PM) URINE AND STOOL Most recent to oldest [Reference Range]: 1 2 3 UA Turbidity [Clear] Cloudy *ABN* (03/01/18 3:28 AM) UA Color [Yellow] Yellow *NA* (03/01/18 3:28 AM) UA pH [5.0-8.0] 8.0 (03/01/18 3:28 AM) UA Spec Grav [<=1.030] 1.010 (03/01/18 3:28 AM) UA Glucose [Negative] Negative (03/01/18 3:28 AM) UA Blood [Negative] Small *ABN* (03/01/18 3:28 AM) UA Ketones [Negative mg/dL] 15 mg/dL *ABN* (03/01/18 3:28 AM) UA Protein [Negative] Trace *ABN* (03/01/18 3:28 AM) UA Urobilinogen [0.1-1.0 EU/dL] 0.2 EU/dL (03/01/18 3:28 AM) UA Bili [Negative] Negative *NA* (03/01/18 3:28 AM) UA Leuk Est [Negative] Small *ABN* (03/01/18 3:28 AM) UA Nitrite [Negative] Positive *ABN* (03/01/18 3:28 AM) UA WBC [None Seen /HPF] 11-20 /HPF *ABN* (03/01/18 3:28 AM) UA RBC [0-2 /HPF] 3-5 /HPF *ABN* (03/01/18 3:28 AM) UA Bacteria [None Seen /HPF] Many /HPF (03/01/18 3:28 AM) UA Sq Epi [Few /LPF] Few /LPF (03/01/18 3:28 AM) UA Amorph Viky [None Seen /HPF] Moderate /HPF *ABN* (03/01/18 3:28 AM) UA Mucus [None Seen /LPF] Few /LPF (03/01/18 3:28 AM) HEMATOLOGY Most recent to oldest 1 2 3 [Reference Range]: WBC [3.7-10.4 K/CMM] 12.1 K/CMM 16.5 K/CMM 24.6 K/CMM *HI* *HI* *HI* (03/03/18 1:02 AM) (03/02/18 2:10 AM) (03/01/18 3:34 AM) RBC [4.20-5.40 M/CMM] 4.18 M/CMM 4.38 M/CMM 4.68 M/CMM *LOW* (03/02/18 2:10 AM) (03/01/18 3:34 AM) (03/03/18 1:02 AM) Hgb [12.0-16.0 g/dL] 9.2 g/dL 9.8 g/dL 10.4 g/dL *LOW* *LOW* *LOW* (03/03/18 1:02 AM) (03/02/18 2:10 AM) (03/01/18 3:34 AM) Hct [36.0-48.0 %] 29.9 % 31.8 % 33.6 % *LOW* *LOW* *LOW* (03/03/18 1:02 AM) (03/02/18 2:10 AM) (03/01/18 3:34 AM) MCV [80.0-98.0 fL] 71.6 fL 72.6 fL 71.8 fL *LOW* *LOW* *LOW* (03/03/18 1:02 AM) (03/02/18 2:10 AM) (03/01/18 3:34 AM) MCH [27.0-31.0 pg] 22.1 pg 22.3 pg 22.3 pg *LOW* *LOW* *LOW* (03/03/18 1:02 AM) (03/02/18 2:10 AM) (03/01/18 3:34 AM) MCHC [32.0-36.0 g/dL] 30.9 g/dL 30.7 g/dL 31.1 g/dL *LOW* *LOW* *LOW* (03/03/18 1:02 AM) (03/02/18 2:10 AM) (03/01/18 3:34 AM) Platelet Count Blue Top 377 K/CMM [133-450 K/CMM] (03/01/18 3:34 AM) RDW [11.5-14.5 %] 19.9 % 20.1 % 19.6 % *HI* *HI* *HI* (03/03/18 1:02 AM) (03/02/18 2:10 AM) (03/01/18 3:34 AM) MPV [7.4-10.4] xxxxxxx See Note See Note 1 (03/03/18 1:02 AM) (03/02/18 2:10 AM) (03/01/18 3:34 AM) Platelet [133-450] See Note 2 See Note 3 See Note 4 (03/03/18 1:02 AM) (03/02/18 2:10 AM) (03/01/18 3:34 AM) Segs [45.0-75.0 %] 82.2 % 91.2 % 90.6 % *HI* *HI* *HI* (03/03/18 1:02 AM) (03/02/18 2:10 AM) (03/01/18 3:34 AM) Lymphocytes [20.0-40.0 %] 9.1 % 3.8 % 3.3 % *LOW* *LOW* *LOW* (03/03/18 1:02 AM) (03/02/18 2:10 AM) (03/01/18 3:34 AM) Monocytes [2.0-12.0 %] 7.7 % 4.9 % 5.8 % (03/03/18 1:02 AM) (03/02/18 2:10 AM) (03/01/18 3:34 AM) Eosinophils [0.0-4.0 %] 0.7 % 0.1 % (03/03/18 1:02 AM) (03/01/18 3:34 AM) Basophils [0.0-1.0 %] 0.3 % 0.1 % 0.2 % (03/03/18 1:02 AM) (03/02/18 2:10 AM) (03/01/18 3:34 AM) Segs-Bands # [1.5-8.1 K/CMM] 9.9 K/CMM 15.1 K/CMM 22.3 K/CMM *HI* *HI* *HI* (03/03/18 1:02 AM) (03/02/18 2:10 AM) (03/01/18 3:34 AM) Lymphocytes # [1.0-5.5 K/CMM] 1.1 K/CMM 0.6 K/CMM 0.8 K/CMM (03/03/18 1:02 AM) *LOW* *LOW* (03/02/18 2:10 AM) (03/01/18 3:34 AM) Monocytes # [0.0-0.8 K/CMM] 0.9 K/CMM 0.8 K/CMM 1.4 K/CMM *HI* (03/02/18 2:10 AM) *HI* (03/03/18 1:02 AM) (03/01/18 3:34 AM) Eosinophils # [0.0-0.5 K/CMM] 0.1 K/CMM (03/03/18 1:02 AM) Basophils # [0.0-0.2 K/CMM] 0.1 K/CMM (03/01/18 3:34 AM) Polychrom slight *NA* (03/01/18 3:34 AM) Hypochrom [None Seen] 1+ (03/01/18 3:34 AM) Microcyte [None Seen] 2+ 2+ 2+ *ABN* *ABN* *ABN* (03/03/18 1:02 AM) (03/02/18 2:10 AM) (03/01/18 3:34 AM) Toxic Gran [None Seen] See Note 5 (03/02/18 2:10 AM) Neut Vac [None Seen] Moderate *ABN* (03/02/18 2:10 AM) Plt Morph Clumped (03/02/18 2:10 AM) PT [12.0-14.7 seconds] 16.6 seconds *HI* (03/01/18 2:17 PM) INR [0.85-1.17] 1.33 *HI* (03/01/18 2:17 PM) 1Result Comment: Platelets clumped in EDTA, unable to estimate, suggest recollection in a blue top tube with an order for "Blue Top Platelet Count" ordered and [id number] Comment: Platelets clumped in EDTA, unable to estimate, suggest recollection in a blue top tube with an order for "Blue Top Platelet Count"3Result Comment: Platelets clumped in EDTA, unable to estimate, suggest recollection in a blue top tube with an order for "Blue Top Platelet Count" Analyzer gave a Platelet Count of 126.4Result Comment: Platelets clumped in EDTA , unable to estimate, suggest recollection in a blue top tube with an order for "Blue Top Platelet Count" ordered and [id number] Comment: SlightMicrobiology Reports TEST:Culture: Urine STATUS:Auth (Verified) BODY SITE: SOURCE:Urine, Clean Catch COLLECTED DATE/TIME:03/01/18 3:26 AMFINAL REPORT>100,000 CFU/mL Enterococcus Species . <10,000 CFU/mL Gram Negative Rods ORGANISM:Enterococcus Species Immunizations Given and Recorded Vaccine Date Status Refusal Reason pneumococcal 23-valent vaccine 08/08/08 Given pneumococcal 23-valent vaccine 04/05/08 Given Procedures Procedure Date Related Diagnosis Body Site Status Colostomy Completed Construction of urostomy Completed Reopening of abdomen and re-exploration of Completed intra-abdominal operation site and surgical arrest of postoperative bleeding Social History Social History Type Response Substance Abuse Use: None. Alcohol Never Smoking Status Never smoker; Ready to change: No; Concerns about tobacco use in household: No; Exposure to Tobacco Smoke None; Cigarette Smoking Last 365 Days No; Reg Smoking Cessation Counseling No entered on: 03/03/18 Assessment and Plan Extracted from: Title: Progress Note Author: Randall Lucas MD Date: 03/03/18 1.Nephrolithiasis With left hydronephrosis status postpercutaneous nephrostomytube. Patient will follow with urology as an outpatient to addressthe4 mm UPJ stone 2.UTI (urinary tract infection) Urine culture grew enterococcus. Stop ceftriaxone start amoxicillin. 3.Functional Paraplegia Continue colostomy, urostomy care Orderedwheelchair for the patient. Heparin Anticipate discharge home tomorrow with home health Extracted from: Title: Infection Control Isolation Alert Author: Shell Weeks Date: ISOLATION ALERT This patient has a history of infection/colonization with MRSA. Site Date Nares 05/06/2008 Isolation Required: CONTACT Before isolation precautions may be discontinued for this hospital visit, the following protocol must be followed and Infection Control should be notified: a. Patient must be off antibiotics for 72 hours or 7 days if on dialysis and vancomycin. b. Send one MRSA PCR nares specimen. Please place order for "MRSA PCR." Do not order "MRSA Culture." c. If MRSA PCR is negative, isolation may be discontinued. Patient can only be cleared from isolation for this visit. If readmitted, patient must be isolated and screened for MRSA again. Consult Infection Control for suggested regimens for decolonization of patients with MRSA as well as for any questions. We can be reached at [phone]. Extracted from: Title: History and Physical Author: Prince Luna Barajas MD Date: 03/01/18 Patient is a 37 year old female with Spina bifida and extensive abdominal surgery 1.Nephrolithiasis 4 mm UPJ stone with mild left hydronephrosis Urology aware of patient PLAN: IR consult placed as per Urology recommendation for percutaneous nephrostomy placement. Patient has a difficult anatomy. Continue pain control with ketorolac 2.UTI (urinary tract infection) As per U/A Started on ceftriaxone Follow up Ucx pending Ordered: Admit/Condition, 03/01/18 6:21:00 CDT, Status: Inpatient, Acute, Expected LOS: 2 Midnights, Randall Lucas MD, Admit MD Review/Approve Yes, Isolation : No Isolation/Standard Precautions 3.Colostomy care Functional 4.Nephrostomy status Defer to Urology Heparin subc Home once medically cleared
--- OUTSIDE RECORDS SUMMARY | 2018-06-10 11:15 | XMS REPORT | Summary of Care ---
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) - Colostomy status (Final) - Other artificial openings of urinary tract status (Final) - Discharge Disposition: Home or Self Care Attending Physician: Elton Gay MD Vital Signs Most recent to oldest 1 2 3 [Reference Range]: Temperature Oral [96.4-99.1 98.4 DegF 98.9 DegF 99.4 DegF DegF] (11/06/17 2:05 PM) (11/06/17 9:37 AM) *HI* (11/06/17 8:09 AM) Blood Pressure [90-140/60-90 111/75 mmHg 123/85 mmHg 108/66 mmHg mmHg] (11/06/17 2:05 PM) (11/06/17 1:13 PM) (11/06/17 12:30 PM) Respiratory Rate [14-20 BRMIN] 18 BRMIN 20 BRMIN 18 BRMIN (11/06/17 2:05 PM) (11/06/17 1:13 PM) (11/06/17 12:30 PM) Peripheral Pulse Rate [60-100 98 bpm bpm] (11/06/17 8:09 AM) Weight 67.727 kg (11/06/17 8:09 AM) Problem List Condition Effective Dates Status Health Status Informant Clotting disorder(Confirmed) Resolved Colostomy(Confirmed) Active Colostomy present(Confirmed) Resolved Hypertension(Confirmed) Resolved Depression(Confirmed) Resolved MRSA - see comments(Confirmed)1 05/06/08 Active Nephrostomy(Confirmed) Active Pain(Confirmed) 09/18/10 Active Acute ; Pleural effusion on left(Confirmed) Resolved Pleural effusion(Confirmed) Active Pneumothorax(Confirmed) Resolved Spina bifida(Confirmed) Resolved Sepsis(Confirmed) Resolved 17/03/08 Nares Allergies, Adverse Reactions, Alerts Substance Reaction Severity Status morphine Active Latex Active Food Chocolate Active Medications fentaNYL 50 microgram, Route: IVP, ONCE, Dosing Weight 67.727, kg, Priority: STAT, Start date: 11/06/17 12:12:00 PHARMACY DIRECTOR, Stop date: 11/06/17 12:12:00 PHARMACY DIRECTOR Start Date: 11/06/17 Stop Date: 11/06/17 Status: CompletedfentaNYL 50 microgram, 1 mL, Route: IVP, Drug form: INJ, ONCE, Dosing Weight 67.727, kg, Priority: STAT, Start date: 11/06/17 10:05:00 PHARMACY DIRECTOR, Stop date: 11/06/17 10:05:00 PHARMACY DIRECTOR Notes: (Same as: Sublimaze) Preservative free. Start Date: 11/06/17 Stop Date: 11/06/17 Status: CompletedketOROLAC 15 mg, 0.5 mL, Route: IVP, Drug form: INJ, ONCE, Dosing Weight 67.727, kg, Start date: 11/06/17 9:35:00 PHARMACY DIRECTOR, Stop date: 11/06/17 9:35:00 PHARMACY DIRECTOR Notes: (Same as:Toradol) IV bolus must be given >15 seconds. Give IM administration slowly and deeply into the muscle.Not for use > 4 days MEDICATION WASTE Product Size: 30 mgProduct Wasted: ___ mg Start Date: 11/06/17 Stop Date: 11/06/17 Status: CompletedOmnipaque 350mg/ml 100 mL, Route: IVP, Drug Form: SOLN, Dosing Weight 67.727, kg, ONCALL, STAT, Start date: 11/06/17 9:28:00 PHARMACY DIRECTOR, Duration: 1 doses or times, Stop date: 0:00:00 PHARMACY DIRECTOR, Dose=2.2ml/kg, Max ajqz=298tl -- "To be infused by Radiology Staff ONLY" Notes: (same as:Omnipaque 350).WASTE: F/P - Black; E - Municipal Trash Bin Start Date: 11/06/17 Stop Date: 11/06/17 Status: CompletedPhenergan 12.5 mg, Route: IVPB, ONCE, Dosing Weight 67.727, kg, Priority: STAT, Start date : 11/06/17 12:12:00 PHARMACY DIRECTOR, Stop date: 11/06/17 12:12:00 PHARMACY DIRECTOR Start Date: 11/06/17 Stop Date: 11/06/17 Status: CompletedZofran 4 mg, 2 mL, Route: IVP, Drug form: INJ, ONCE, Dosing Weight 67.727, kg, Priority : STAT, Start date: 11/06/17 9:35:00 PHARMACY DIRECTOR, Stop date: 11/06/17 9:35:00 PHARMACY DIRECTOR Notes: (Same as: Zofran) MEDICATION WASTE Product Size: 4 mgProduct Wasted: ___ mg Start Date: 11/06/17 Stop Date: 11/06/17 Status: Completed Results ELECTROLYTES Most recent to oldest [Reference Range]: 1 Sodium Lvl [135-145 mEq/L] 139 mEq/L (11/06/17 9:01 AM) Potassium Lvl [3.5-5.1 mEq/L] 4.8 mEq/L 1 (11/06/17 9:01 AM) Chloride Lvl [95-109 mEq/L] 105 mEq/L (11/06/17 9:01 AM) CO2 [24-32 mEq/L] 22 mEq/L *LOW* (11/06/17 9:01 AM) AGAP [10.0-20.0 mEq/L] 16.8 mEq/L (11/06/17 9:01 AM) 1Result Comment: Specimen Moderately Hemolyzed.CHEM PANEL Most recent to oldest [Reference Range]: 1 Creatinine Lvl [0.50-1.40 mg/dL] 0.63 mg/dL (11/06/17 9:01 AM) eGFR 132 mL/min/1.73m2 1 *NA* (11/06/17 9:01 AM) BUN [7-22 mg/dL] 11 mg/dL (11/06/17 9:01 AM) Glucose Lvl [70-99 mg/dL] 96 mg/dL (11/06/17 9:01 AM) Total Protein [6.4-8.4 g/dL] 8.0 g/dL (11/06/17: AM) Albumin Lvl [3.5-5.0 g/dL] 3.4 g/dL *LOW* (11/06/17: AM) Globulin [2.7-4.2 g/dL] 4.6 g/dL *HI* (11/06/17 9:01 AM) A/G Ratio [0.7-1.6] 0.7 (11/06/17: AM) Calcium Lvl [8.5-10.5 mg/dL] 9.1 mg/dL (11/06/17 9:01 AM) ALT [0-65 unit/L] 30 unit/L (11/06/17 9:01 AM) AST [0-37 unit/L] 47 unit/L *HI* (11/06/17 9:01 AM) Alk Phos [39-136 unit/L] 48 unit/L (11/06/17 9:01 AM) Bili Total [0.2-1.3 mg/dL] 0.4 mg/dL (11/06/17 9:01 AM) Bili Direct [0.0-0.3 mg/dL] 0.1 mg/dL (11/06/17 9:01 AM) Bili Indirect [0.0-1.0 mg/dL] 0.3 mg/dL (11/06/17 9:01 AM) Lipase Lvl [73-393 unit/L] 317 unit/L (11/06/17 9:01 AM) 1Result Comment: The eGFR is calculated [...] eGFR should be multiplied by the estimated BMI.URINE CHEM Most recent to oldest [Reference Range]: 1 U Preg [Negative] Negative (11/06/17 9:30 AM) URINE AND STOOL Most recent to oldest [Reference Range]: 1 UA Turbidity [Clear] Cloudy *ABN* (11/06/17 9:10 AM) UA Color [Yellow] Yellow *NA* (11/06/17 9:10 AM) UA pH [5.0-8.0] 8.5 *HI* (11/06/17 9:10 AM) UA Spec Grav [<=1.030] 1.020 (11/06/17 9:10 AM) UA Glucose [Negative] Negative (11/06/17 9:10 AM) UA Blood [Negative] Negative (11/06/17 9:10 AM) UA Ketones [Negative] Negative *NA* (11/06/17 9:10 AM) UA Protein [Negative] Trace *ABN* (11/06/17 9:10 AM) UA Urobilinogen [0.1-1.0 EU/dL] 0.2 EU/dL (11/06/17 9:10 AM) UA Bili [Negative] Negative *NA* (11/06/17 9:10 AM) UA Leuk Est [Negative] Small *ABN* (11/06/17 9:10 AM) UA Nitrite [Negative] Positive *ABN* (11/06/17 9:10 AM) UA WBC [None Seen /HPF] 3-5 /HPF (11/06/17 9:10 AM) UA RBC [0-2 /HPF] 3-5 /HPF *ABN* (11/06/17 9:10 AM) UA Bacteria [None Seen /HPF] Few /HPF (11/06/17 9:10 AM) UA Sq Epi [Few /LPF] Few /LPF (11/06/17 9:10 AM) UA Amorph Viky [None Seen /HPF] Few /HPF *ABN* (11/06/17 9:10 AM) UA Mucus [None Seen /LPF] Rare /LPF (11/06/17 9:10 AM) IMMUNOLOGY Most recent to oldest [Reference Range]: 1 CDC HIV 4th GEN [Negative] Negative *NA* (11/06/17 8:43 AM) HEMATOLOGY Most recent to oldest [Reference Range]: 1 WBC [3.7-10.4 K/CMM] 10.7 K/CMM *HI* (11/06/17 9:01 AM) RBC [4.20-5.40 M/CMM] 4.20 M/CMM (11/06/17 9:01 AM) Hgb [12.0-16.0 g/dL] 10.0 g/dL *LOW* (11/06/17 9:01 AM) Hct [36.0-48.0 %] 33.3 % *LOW* (11/06/17 9:01 AM) MCV [80.0-98.0 fL] 79.3 fL *LOW* (11/06/17 9:01 AM) MCH [27.0-31.0 pg] 23.9 pg *LOW* (11/06/17 9:01 AM) MCHC [32.0-36.0 g/dL] 30.1 g/dL *LOW* (11/06/17 9:01 AM) RDW [11.5-14.5 %] 22.9 % *HI* (11/06/17 9:01 AM) MPV [7.4-10.4 fL] 9.0 fL (11/06/17 9:01 AM) Platelet [133-450 K/CMM] 136 K/CMM (11/06/17 9:01 AM) Segs [45.0-75.0 %] 70.0 % (11/06/17 9:01 AM) Lymphocytes [20.0-40.0 %] 17.1 % *LOW* (11/06/17 9:01 AM) Monocytes [2.0-12.0 %] 10.3 % (11/06/17 9:01 AM) Eosinophils [0.0-4.0 %] 2.2 % (11/06/17 9:01 AM) Basophils [0.0-1.0 %] 0.4 % (11/06/17 9:01 AM) Segs-Bands # [1.5-8.1 K/CMM] 7.5 K/CMM (11/06/17 9:01 AM) Lymphocytes # [1.0-5.5 K/CMM] 1.8 K/CMM (11/06/17 9:01 AM) Monocytes # [0.0-0.8 K/CMM] 1.1 K/CMM *HI* (11/06/17 9:01 AM) Eosinophils # [0.0-0.5 K/CMM] 0.2 K/CMM (11/06/17 9:01 AM) Anisocyte [None Seen] 1+ *ABN* (11/06/17 9:01 AM) Hypochrom [None Seen] 1+ (11/06/17 9:01 AM) Microcyte [None Seen] 1+ *ABN* (11/06/17 9:01 AM) Plt Morph See Note 1 (11/06/17 9:01 AM) 1Result Comment: Due to occassional clumps, the actual count may be slightly higher. Immunizations Given and Recorded Vaccine Date Status [...] None. Alcohol Never Smoking Status Never smoker; Type: Cigarettes; Exposure to Tobacco Smoke None ; Cigarette Smoking Last 365 Days No; Reg Smoking Cessation Counseling No entered on: 11/06/17 Assessment and Plan Extracted from: Title: Samuel Consult Author: Yamileth Madison MD PHD Date: 11/06/17 BASIC INFORMATION Referring Physician/Service:Elton Gay MD/EM Consulting Physician/Service: Cisco Henriquez DO/Samuel Consultation for: nausea and vomiting HPI: This is a 37-year-old AAF with PMH/PSH of congenital hydrocephalus (s/p VPS) spina bifida (s/p flap reconstruction), sacral decubitus (complicated by septic shock requiring diverting colonostomy &a mp; urostomy, labina reconstruction, abdominal wall STSG), HTN and asthma presents to ED for 1 month history of nausea and vomiting. She started to feel nausea and vomiting (non billous, clear) when sh bhavin was [facility] (Gram negative rods, admitted 10/01- 10/08/2017). She feels nauseous mostly after meal and has not been eating much but taking 1 bottle of booster/day. She also c omplains of epigastric pain. She reports 102F 2 days ago. PMH: Spina bifida status post multiple surgeries. Hydrocephalus s/p ventriculoperitoneal shunt, s/p ventriculo L pleural shunt Multiple MRSA colonization. Colostomy, urostomy secondary to decubitus wound and need for diversion. Depression. Chronic left pleural effusion and pneumonia (2/2 ventriculopleural shunt) Paraplegia. Chronic UTI PSH: ventriculoperitoneal shunt ---> ventriculo-L pleural shunt spina bifida reconstruction with thigh flap diverting colonostomy, ileal loop urinary diversion, labina reconstruction ( for sacral decubitus) Abdominal wall STSG, s/p abdominal compartment syndrome SH: deniesx3, lives alone, mother visits for help Review of Systems: General: 102F 2 days ago, negative for chills HEENT: negative for recent visual and hearing changes Respiratory: negative for SOB, cough, and sputum production Cardiovascular: negative for chest pain and palpitation Gastrointestinal: postprandial nausea and vomiting, mild epigastric pain Genitourinary: treated for UTI 10/01-10/07 requiring admission Integumentary: negative for rashes Extremities:negative for swelling or coldness Neurologic: negative for dizziness and headache Joss/Lymph: negative for brusing Endocrine: negative for thirstiness Psychiatric: negative for anxiety and depression Physical Exam: General appearance:NAD, Alert and orientedx3 HEENT: AT/NC, no discharges from nares/ears Cardiovascular: no mrg, pulses palpable 2+ in all 4 extremities Respiratory: diminished BS on the L side, non-labored breathing Gastrointestinal: not distended, s/p STSG well healed, very mild epigastric tenderness, no guarding/rebound Extremities: warm, well perfused, LE atrophic Skin: no rashes Neurological: paraplegic Psychiatric: appropriate mood , alert and oriented CT 11/06/2017 FINDINGS: Lines, tubes and hardware: None. Lower thorax: Moderate left pleural effusion is noted with ventricular pleural catheter within it. Partially visualized catheter within the anterior abdominal wall. Liver: Normal. Biliary tree: No intra- or extrahepatic biliary ductal dilation. Gallbladder: Normal. No CT evidence of gallstones. Pancreas: Normal. Spleen: The spleen is normal in size. A 1.2 cm hypodensity in the anterior aspect (/) is unchanged from 11/13/2016 suggestive of benign [...] subserosal fibroid in the left lateral wall (). Pessary is present. Gastrointestinal tract: Stomach: Normal. [...] Other incidental findings described above are stable. ASSESSMENT & PLAN The patient is a 37 yo F with h/o diverting colonostomy & urostomy, VPS (no longer in peritoneum, in L pleural space) and recent UTI presents to ED for 1 month history of nausea and vomiting The case was discussed with Drs. Escobar and Florence There is no surgical intervention is indicated to the patient at this point as the patient does not have SBO. We will recommend the patient to be seen by GI and neurology to r/o gastritis and ventriculopleural shunt malfunctioning. We will be happy to follow-up the patient during hospitalization. [place] [facility] [place] [phone] for any further questions Yamileth Madison MD Res-[id number] [id number] Surgery Staff Discussed with Dr. Escobar Reviewed above note Agree with findings, assessment and plan
--- OUTSIDE RECORDS SUMMARY | 2018-06-10 11:16 | XMS REPORT | Summary of Care ---
:1980 Author Name ANNIE JUAREZ M.D. 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: Active Nephrolithiasis (592.0, N20.0) Status: Active Medications Name Dates Details Nabumetone 750 MG Oral Tablet Refills: 0 Active DiphenhydrAMINE HCl - 25 MG Oral Capsule Refills: 0 Active Folic Acid TABS Refills: 0 Active Iron Supplement TABS Refills: 0 Active NexIUM 40 MG Oral Packet Refills: 0 Active Xopenex HFA AERO Refills: 0 Active Nitrofurantoin Monohyd Macro 100 MG Oral Capsule TAKE 1 CAPSULE TWICE DAILY Quantity: 28 Refills: 0 LOW P.A.RAULBEKAH Start : 30-May-2018 Active Allergies and Adverse Reactions Name Dates Details Morphine Derivatives (Allergy) Status: Active Past Medical History Name Dates Details History of anemia (V12.3, Z86.2) Status: Resolved History of Anxiety and depression (300.00, F41.9) Status: Resolved History of asthma (V12.69, Z87.09) Status: Resolved History of deep venous thrombosis (V12.51, Z86.718) Status: Resolved 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, 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) Status: Resolved History of hypertension (V12.59, Z86.79) Status: Resolved History of Recurrent nephrolithiasis (592.0, N20.0) Status: Resolved History of Spina bifida of lumbar spine (741.93, Q05.7) Status: Resolved Procedures Procedure Dates Details [H] PTH Profile Date: 11-May-2018 [QLH] BUN/CREATININE RATIO W/EGFR Date: 11-May-2018 [B] VITAMIN D 25-HYDROXY Date: 11-May-2018 [QLH] CBC (INCLUDES DIFF/PLT) Date: 30-May-2018 [QLH] BASIC METABOLIC PANEL W/EGFR Date: 30-May-2018 Abdomen AP view [id number] Date: 08-Jun-2018 CT Abd Renal Protocol w/wo IV contrast [id number] Date: 30-May-2018 Immunization Name Dates Details Immunizations not documented Social History Name Dates Details Unknown if ever smoked Vital Signs Date Test Result Details [id number]:36 BP Systolic 133 mm[Hg] Status: Comments: Location: LUE; Position: Sitting BP Diastolic 93 mm[Hg] Status: Comments: Location: E; Position: Sitting Height 60 in Status: Weight 144 lb Status: Body Mass Index Calculated 28.12 kg/m2 Status: Body Surface Area Calculated 1.62 m2 Status: Temperature 98.6 f Status: Comments: Method: Temporal Heart Rate 104 /min Status: Comments: Location: L Brachial Artery; [id number] BP Systolic 137 mm[Hg] Status: Comments: Location: LUE; Position: Sitting BP Diastolic 91 mm[Hg] Status: Comments: Location: LUE; Position: Sitting Height 60 in Status: Weight 144 lb Status: Body Mass Index Calculated 28.12 kg/m2 Status: Body Surface Area Calculated 1.62 m2 Status: Temperature 97.8 f Status: Comments: Method: Temporal Heart Rate 108 /min Status: 60-[id number]:52 BP Systolic 140 mm[Hg] Status: Comments: Location: LUE; Position: Sitting BP Diastolic 98 mm[Hg] Status: Comments: Location: LUE; Position: Sitting Height 60 in Status: Weight 144 lb Status: Body Mass Index Calculated 28.12 kg/m2 Status: Body Surface Area Calculated 1.62 m2 Status: Temperature 97.9 f Status: Comments: Method: Temporal Heart Rate 115 /min Status: Results Date Description Value Details [id number] [QLH] CALCIUM, IONIZED Ca Ion Serum 1.28 mmol/L Range: 1.00-1.38 Ca Norm Serum 1.28 mmol/L Range: 1.00-1.38 :50 [QLH] BUN/CREATININE RATIO W/EGFR Blood Urea Nitrogen 12 mg/dl Range: 7-22 Creatinine Lvl 0.70 mg/dl Range: 0.50-1.40 eGFR 110 {ML/MIN/1.7} Comments: The eGFR is calculated using the CKD-EPI formula. In most young, healthyindividuals the eGFR will be >90 mL/min/1.73m2. The eGFR declines with age. AneGFR of 60-89 may be normal in some populations, particularly the elderly, forwhom the CKD-EPI formula has not been extensively validated. Use of the eGFR isnot recommended in the following populations:Individuals with unstable creatinine concentratio ns, including patients and those with serious co-morbid conditions.Patients with extremes in muscle mass or diet.The data above are obtained from the National Kidney Disease Education Program(NK DEP) which additionally recommends that when the eGFR is used in patientswith extremes of body mass index for purposes of drug dosing, the eGFR shouldbe multiplied by the estimated BMI. :50 [QH] CALCIUM Calcium Level Total 9.5 mg/dl Range: 8.5-10.5 :50 [QLH] PTH, INTACT (WITHOUT CALCIUM) Parathyroid Hormone Intact 64.7 pg/ml Range: 18.4-80.1 :50 [QLH] CBC (INCLUDES DIFF/PLT) WBC 9.3 {K/CMM} Range: 3.7-10.4 RBC 5.02 {M/CMM} Range: 4.20-5.40 Hgb 11.5 g/dl (Below low Range: 12.0-16.0 threshold) Hct 35.7 % (Below low threshold) Range: 36.0-48.0 MCV 71.2 fL (Below low Range: 80.0-98.0 threshold) MCH 22.9 pg (Below low Range: 27.0-31.0 threshold) MCHC 32.1 g/dl Range: 32.0-36.0 RDW 22.8 % (Above high Range: 11.5-14.5 threshold) Platelet See Note Range: 133-450 Comments: Platelets clumped in EDTA, unable to estimate, suggest recollection in a bluetop tube with an order for "Blue Top Platelet Count" Mean Platelet Volume 8.9 fL Range: 7.4-10.4 [id number] [QLH] Differential Segmented Neutrophils 63.0 % Range: 45.0-75.0 Monocytes 9.5 % Range: 2.0-12.0 Lymphocytes 23.6 % Range: 20.0-40.0 Eosinophils 3.4 % Range: 0.0-4.0 Basophils 0.5 % Range: 0.0-1.0 Segs-Bands # 5.9 {K/CMM} Range: 1.5-8.1 Lymphocytes # 2.2 {K/CMM} Range: 1.0-5.5 Monocytes # 0.9 {K/CMM} (Above high threshold) Range: 0.0-0.8 Eosinophils # 0.3 {K/CMM} Range: 0.0-0.5 Plt Morphology Clumped Anisocyte 1+ (Abnormal) Range: None Seen Microcyte 2+ (Abnormal) Range: None Seen 53-[id number]:50 [QLH] VITAMIN D, 25-HYDROXY, LC/MS/MS Vitamin D, 25-OH, Total 33.5 ng/ml Range: 30.0-100.0 Comments: Reference range is based on recommendations in the [employer] Clinical Practice Guideline (J Clin Endocrinol Zfnyi9760;96: 3732-6763) [id number]-[id number]:33 [H] Culture: Wound/Abscess w/Gram Comments: Source: Wound, Non SurgBody Site: WOUND Stain Gram St Moderate WBC's Moderate Gram Negative Rods Moderate Gram Positive Cocci InClusters ORGANISM Escherichia coliEnterococcus SpeciesProteus vulgaris FINAL REPORT Many Escherichia coli Many Enterococcus Species Moderate Proteus vulgaris [id number]:33 [H] C Urine Transplant Comments: Source: Urine, Clean CatchBody Site: ORGANISM Escherichia coliEnterococcus Species FINAL REPORT >100,000 CFU/mL Escherichia coli 50,000 - 100,000 CFU/mL Enterococcus Species .<10,000 CFU/mL Skin Raine [id number] [H] VMIC Comments: Source: Urine, Clean CatchBody Site: ORGANISM Escherichia coli Amikacin - (Susceptible) Ampicillin - (Susceptible) Ampicillin/Sulbactam - (Susceptible) Cefazolin - (Susceptible) Ceftriaxone - (Susceptible) Ciprofloxacin - (Susceptible) Cefepime - (Susceptible) ESBL Confirmation - Gentamicin - (Susceptible) Levofloxacin - (Susceptible) Nitrofurantoin - (Susceptible) Piperacillin/Tazobactam - (Susceptible) Trimethoprim/Sulfamethoxazole - (Susceptible) Tobramycin - (Susceptible) Cefuroxime - (Susceptible) Meropenem - (Susceptible) Tetracycline - (Susceptible) 5-[id number]:17 CT [facility] Renal Protocol w/wo IV contrast 47548-07 Abd Renal Protocol w/wo IV SEE NOTES Comments: Study: [facility] Renal Protocol w/ wo IV contrast CT Clinical Indication: - PyelonephritisComparison: CT abdomen and pelvis from 04/12/2018TECHNIQUE: Multiple axial CT images of the abdomen/ pelvis were acqui contrast CT red beforeand after the administration of intravenous contrast. Multiplanar reformattedimages were performed. Renal mass protocol was utilized.NTA=7041.8 mGy-cmFINDINGS: Limited views of the lung bases show a moderate-sized left pleuraleffusion with small bore chest tube in position.Subcentimeter gallstones are seen. Liver, pancreas, spleen, and adrenal glandsare unremarkable. No intrahepatic or extra hepatic biliary duct dilatation isseen. Previously noted left-sided percutaneous nephrostomy catheter is nolonger seen. No hydronephrosis or perinephric stranding is seen. Corticalscarring throughout th e right kidney is noted. Calcified stones throughout theright kidney are again seen with largest measuring 1.7 cm in the inferior poleof the right kidney. No filling defects are noted throughout the opa cifiedportions of the renal collecting systems or ureters on the delayed excretoryphase images. Stable changes of cystectomy and ileal conduit surgery are againnoted. Visualized uterus is unremarkable. Vaginal pessary is seen.Stable changes of left lower quadrant colostomy formation are again noted. Theappendix is unremarkable. No free air, free fluid , or pathologic adenopathy isseen.Severe diastasis of the anterior abdominal wall fascia is again seen. 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 Severe right hipdysplasia is noted. IMPRESSION:1. Interval removal of left-sided percutaneous nephrostomy catheter.2. No renal collecting system obstruction.3. Stable nonobstructive right nephrolithiasis.4. Moderate- sized left pleural effusion.SL: [id number] by: Faisal Calvertictated Date/time: 06/02/18 12:50Electronically Sig isaias by: Faisal Calvert MD 06/02/1813:00FINAL REPORT [id number] [H] MSMIC Comments: Source: Wound, Non SurgBody Site: WOUND ORGANISM Escherichia coli Amikacin <=8 (Susceptible) Ampicillin 4 (Susceptible) Ampicillin/Sulbactam <=4/2 (Susceptible) Cefazolin <=2 (Susceptible) Cefepime <=2 (Susceptible) Ceftriaxone <=1 (Susceptible) Ciprofloxacin <=0.5 (Susceptible) Gentamicin <=1 (Susceptible) Levofloxacin <=1 (Susceptible) Meropenem <=1 (Susceptible) Piperacillin/Tazobactam <=8 (Susceptible) Tetracycline <=2 (Susceptible) Tobramycin <=2 (Susceptible) Trimethoprim/Sulfamethoxazole <=0.5/9.5 (Susceptible) 7-[id number] [H] VMIC Comments: Source: Urine, Clean CatchBody Site: ORGANISM Enterococcus Species Ampicillin - (Susceptible) Levofloxacin - (Resistant) Nitrofurantoin - (Susceptible) Tetracycline - (Resistant) Vancomycin SEE NOTES (Susceptible) Comments: S=Susceptible, R=Resistant, I=Intermediate, N/A=Not Applicable :33 [H] MSMIC Comments: Source: Wound, Non SurgBody Site: WOUND ORGANISM Enterococcus Species Ampicillin <=2 (Susceptible) Vancomycin 2 (Susceptible) [id number] [H] MSMIC Comments: Source: Wound, Non SurgBody Site: WOUND ORGANISM Proteus vulgaris Amikacin <=8 (Susceptible) Ampicillin >16 (Resistant) Ampicillin/Sulbactam 8/4 (Susceptible) Cefepime <=2 (Susceptible) Ceftriaxone <=1 (Susceptible) Ciprofloxacin <=0.5 (Susceptible) Gentamicin <=1 (Susceptible) Levofloxacin <=1 (Susceptible) Meropenem <=1 (Susceptible) Piperacillin/Tazobactam <=8 (Susceptible) Tetracycline 8 (Intermediate) Tobramycin <=2 (Susceptible) Trimethoprim/Sulfamethoxazole 2/38 (Susceptible) Comments: S=Susceptible , R=Resistant, I=Intermediate, N/A=Not Applicable Plan of Care Name Dates Details Planned Observations Planned Goals not documented Planned Encounters Appointment; ANNIE JUAREZ M.D. On: 07-Dec-2018 10:45 Interventions Provided Labs/Procedures/ImagingGU Abdomen AP view [id number]; To Be Done: 08 Jun 2018Plan# nephrolithiases s/p left nephrostomy tube, complicated by infection-consult CT results with patient showing nonobstructive right nephrolithiasis-Recommend right PCNL patient will think about it and call to schedule-Dressing changes for a few more days then open to air.-KUB ordered-Litholink oprdered-Urostomy bags ordered for patient-F/U in 4-6 months Instructions Name Dates Details Instructions not documented Encounters Appointment; ANNIE JUAREZ M.D. On: 15-Apr-2018 8:45 Encounter Diagnosis: Problem not documented Appointment; ANNIE JUAREZ M.D. On: 11-May-2018 10:15 Encounter Diagnosis: Problem not documented Appointment; BEKHA LOW P.A. On: 30-May-2018 10:30 Encounter Diagnosis: Problem not documented Appointment; ANNIE JUAREZ M.D. On: 08-Jun-2018 9:45 Encounter Diagnosis: Problem not documented
[2018-06-10] MEDS ORDERED: ONDANSETRON 4 MG/2 ML VIAL ONE (11:55)
[2018-06-10] MEDS ORDERED: NA CHLORIDE 0.9% 1,000 ML ONE ×3 (11:55→17:25)
[2018-06-10] MEDS ORDERED: FENTANYL CITR 100 MCG/2 ML ONE (11:55)
--- NOTE | 2018-06-10 12:32 | RAD REPORT ---
EXAM DESCRIPTION: CT - Stone Protocol - 06/10/2018 12:07 pm CLINICAL HISTORY: Flank pain. FLANK PAIN COMPARISON: Abdomen Pelvis Wo Contrast dated 02/28/2018 TECHNIQUE: Axial images were obtained without oral or IV contrast. Lack of contrast limits solid org an and vascular assessment. The odscx-od-ccol spans the entirety of the system partially obscuring uppermost abdomen and lung bases. Coronal reformatted images were obtained and reviewed. All CT scans are performed using dose optimization technique as appropriate and may include automated exposure control or mA/KV adjustment according to patient size. FINDINGS: Small left hydropneumothorax with shunt tubing in place. Imaged portions of the liver and spleen show no suspicious findings on non-contrast imaging. The panc reas and adrenal glands are normal. No pathologic lymphadenopathy in the abdomen or pelvis. Mild right hydronephrosis is noted. Several calculi are present in the right kidney. A 6-7 mm stone ( 631 HU) is detected in the mid right ureter. No bowel obstruction, free air, free fluid or abscess. Left lower quadrant colostomy noted.Right lowe r quadrant ostomy also present. Significant scoliosis and spina bifida changes are present. IMPRESSION: 6-7 mm calculus is present mid right ureter resulting in mild right hydronephrosis. Lucian tional right nephrolithiasis is seen.
[2018-06-10 12:35] LABS: ALT/SGPT 20 U/L (12-78); AST/SGOT 15 U/L (15-37); Albumin 3.4 g/dL (3.4-5.0); Alkaline Phosphatase 55 U/L (45-117); BUN Blood Urea Nitrogen 14 mg/dL (7-18); Bicarbonate 24 mmol/L (21-32); Bilirubin Direct < 0.1 mg/dL (0-0.2); Bilirubin Total 0.3 mg/dL (0.2-1.0); Glucose Level 106 mg/dL (74-106); Lipase 443 U/L (73-393); Potassium 3.7 mmol/L (3.5-5.1); Protein, Total 7.9 g/dL (6.4-8.2); Sodium Level 140 mmol/L (136-145)
[2018-06-10 12:45] LABS: Urine Blood 2+ (NEG); Urine Glucose NEGATIVE (NEG); Urine Protein 1+ (NEG); Urine Specific Gravity 1.025 (1.005-1.030); Urine pH 7.5 (5.0-7.0)
[2018-06-10] MEDS ORDERED: HYDROMORPHONE HCL 1 MG/ML INJ ONE ×2 (14:21→18:12)
[2018-06-10] MEDS ORDERED: ACETAMINOPHEN 500 MG TAB ONE (14:54)
[2018-06-10 15:05] LABS: Hematocrit 30.3 % (36.0-45.0); MCV 68.9 fL (80-100); RBC Red Blood Cell Count 4.39 M/uL (3.86-4.86)
[2018-06-10 15:39] LABS: Absolute Lymphocytes (CBC) 0.3 K/uL (0.7-4.9); Absolute Monocytes 0.4 K/uL (0.1-1.3); Absolute Neutrophil 16.6 K/uL (1.8-8.0); Basophils % 0.1 % (0-1.3); Eosinophils % 0.6 % (0-4.4); Lymphocytes % 1.6 % (15.3-44.8); Monocytes % 2.1 % (3.3-12.3)
[2018-06-10 15:43] LABS: Urine RBC <5 /HPF (NONE SEEN)
[2018-06-10 15:44] LABS: Urine Bacteria >50 /HPF (<20); Urine Culture Reflex Order REFLEXED
[2018-06-10] MEDS ORDERED: CEFTRIAXONE/SWI 1gm 1 GM/10 ML SYR ONE (15:57)
--- NOTE | 2018-06-10 16:15 | ER ---
Nurse's Notes [facility] Name: Leila Aquino Age: 37 yrs Sex: Female : 1980 Arrival Date: 06/10/2018 Time: 11:16 Bed 8 Private MD: Diagnosis: Hydronephrosis with renal and ureteral calculous obstruction;Urosepsis Presentation: 06/10 11:16 Acuity: PAYTON 3 aa5 11:16 Method Of Arrival: EMS: [facility] aa5 11:16 Presenting complaint: Patient states: lower back pain and pain to right lateral aspect aa5 of abdomen that began today at 0900. Pt reports nausea, denies vomiting, denies diarrhea. Transition of care: patient was not received from another setting of care. Onset of symptoms was June 10, 2018. Risk Assessment: Do you want to hurt yourself or someone else? Patient reports no desire to harm self or others. Initial Sepsis Screen: Does the patient meet any 2 criteria? HR > 90 bpm. Does the patient have a suspected source of infection? No. Patient's initial sepsis screen is negative. Care prior to arrival: None. Historical: - Allergies: 11:16 Latex, Natural Rubber; aa5 11:16 Morphine; aa5 11:16 Vancomycin; aa5 - PMHx: 11:22 Upper extremity DVT- L arm; aa5 11:16 ADD/ADHD; Anemia; Asthma; DVT; Hypertension; Kidney stones; Sepsis; spina bifida; UTI; aa5 Osteomyelitis-L foot; - PSHx: 11:16 urostomy; "multiple abdominal surgeries"; Colostomy; aa5 - Immunization history:: Adult Immunizations up to date. - Social history:: Smoking status: Patient/guardian denies using tobacco. - Ebola Screening: : No symptoms or risks identified at this time. Screenin:22 Abuse screen: Denies threats or abuse. Nutritional screening: No deficits noted. aa5 Tuberculosis screening: No symptoms or risk factors identified. Fall Risk Secondary diagnosis (15 points) impaired mobility, IV access (20 points). Total Toribio Fall Scale indicates Low Risk Score (25-44 pts). Fall prevention measures have been instituted. Side Rails Up X 2. Assessment: 11:20 General: Appears comfortable, unkempt, Behavior is calm, cooperative. Pain: Complains aa5 of pain in lower back and right lateral aspect of abdomen Pain does not radiate. Pain currently is 10 out of 10 on a pain scale. Quality of pain is described as sharp, Pain began today around 0900 Is continuous. Neuro: Level of Consciousness is awake, alert, obeys commands, Oriented to person, place, time, situation. Cardiovascular: Heart tones S1 S2 present Rhythm is regular. Respiratory: Airway is patent Respiratory effort is even, unlabored, Respiratory pattern is regular, symmetrical, Breath sounds are clear bilaterally. GI: Abdomen is round with large area of scar tissue noted. colostomy noted Bowel sounds present X 4 quads. Abd is soft and non tender X 4 quads. Reports nausea, Patient currently denies vomiting. : Urostomy noted with Brown bag to gravity drainage, urine is ledy colored and cloudy. EENT: No signs and/or symptoms were reported regarding the EENT system. Derm: Skin is dry, Skin is normal, Skin temperature is warm. Musculoskeletal: Pt is non-ambulatory. 12:05 Reassessment: Pt taken to CT via stretcher . aa5 12:44 Reassessment: Patient and/or family updated on plan of care and expected duration. Pain aa5 level reassessed. Pain: Pain currently is 10 out of 10 on a pain scale. Neuro: Level of Consciousness is awake, alert, obeys commands, Oriented to person, place, time, situation. Respiratory: Airway is patent Respiratory effort is even, unlabored, Respiratory pattern is regular, symmetrical. Derm: Skin is dry, Skin is normal, Skin temperature is warm. 14:10 Reassessment: Patient and/or family updated on plan of care and expected duration. Pain aa5 level reassessed. Lab at bedside recollecting CBC, and collecting blood cultures, lactate, and other added labs. . 14:10 Neuro: Level of Consciousness is awake, alert, obeys commands, Oriented to person, aa5 place, time, situation. Respiratory: Airway is patent Respiratory effort is even, unlabored, Respiratory pattern is regular, symmetrical. Derm: Skin is dry, Skin is normal, Skin temperature is warm. 14:10 Pain: Pain currently is 10 out of 10 on a pain scale. aa5 14:50 Reassessment: Patient appears in no apparent distress at this time. Patient is alert, ss oriented x 3, equal unlabored respirations, skin warm/dry/pink. Patient reports that Dilaudid administration helped with her pain. Patient states feeling better. Patient states symptoms have improved. 15:50 Reassessment: Patient and/or family updated on plan of care and expected duration. Pain aa5 level reassessed. Neuro: Level of Consciousness is awake, alert, obeys commands, Oriented to person, place, time, situation. Respiratory: Airway is patent Respiratory effort is even, unlabored, Respiratory pattern is regular, symmetrical. Derm: Skin is dry, Skin is normal, Skin temperature is warm. 15:50 Pain: Pain currently is 8 out of 10 on a pain scale. aa5 16:50 Reassessment: Patient and/or family updated on plan of care and expected duration. Pain aa5 level reassessed. Awaiting approval for transfer from other facility. . Neuro: Level of Consciousness is awake, alert, obeys commands, Oriented to person, place, time, situation. Respiratory: Airway is patent Respiratory effort is even, unlabored, Respiratory pattern is regular, symmetrical. Derm: Skin is dry, Skin is normal, Skin temperature is warm. 18:20 Reassessment: Patient and/or family updated on plan of care and expected duration. Pain aa5 level reassessed. Awaiting for approval from [facility]. . Pain: Pain currently is 8 out of 10 on a pain scale. Neuro: Level of Consciousness is awake, alert, obeys commands, Oriented to person, place, time, situation. Respiratory: Airway is patent Respiratory effort is even, unlabored, Respiratory pattern is regular, symmetrical. Derm: Skin is dry, Skin is normal, Skin temperature is warm. 19:29 Reassessment: Patient appears in no apparent distress at this time. report called to ak1 Kadeem Lorenz RN for [facility] [address] [place] [address] Bed 20. Vital Signs: 11:17 BP 119 / 99; Pulse 115; Resp 18 S; Temp 99.1(O); Pulse Ox 99% on R/A; Weight 65.32 kg aa5 (R); Height 5 ft. 0 in. (152.40 cm) (R); Pain 10/10; 12:44 BP 136 / 85; Pulse 120; Resp 18 S; Pulse Ox 100% on R/A; Pain 10/10; aa5 14:13 BP 119 / 70; Pulse 125; Resp 16; Pulse Ox 100% on R/A; Pain 10/10; ss 14:34 Pulse 124; Resp 20 S; Temp 100.7(O); Pulse Ox 100% on R/A; Pain 10/10; aa5 15:36 BP 104 / 69; Pulse 130; Resp 20 S; Temp 100.7(O); Pulse Ox 99% on R/A; Pain 8/10; aa5 16:50 BP 101 / 73; Pulse 125; Resp 16 S; Temp 99.6(O); Pulse Ox 98% on R/A; Pain 8/10; aa5 17:53 BP 113 / 78; Pulse 119; Resp 18 S; Pulse Ox 98% on R/A; Pain 10/10; aa5 18:08 Temp 99.0(O); aa5 19:36 BP 105 / 83; Pulse 117; Resp 20; Temp 99.0; Pulse Ox 99% on R/A; Pain 3/10; ak1 11:17 Body Mass Index 28.12 (65.32 kg, 152.40 cm) aa5 ED Course: 11:16 Patient arrived in ED. aa5 11:16 Patient has correct armband on for positive identification. Placed in gown. Bed in low aa5 position. Call light in reach. Side rails up X2. 11:16 Arm band placed on Patient placed in an exam room, on a stretcher. aa5 11:17 Triage completed. aa5 11:21 Inserted saline lock: 24 gauge in left upper arm, using aseptic technique. Blood ss collected. 11:30 Dakotah Reid MD is Attending Physician. pm1 11:30 Gorge Fuentes NP is PHCP. pm1 11:44 Kay Goldstein, RAJNI is Primary Nurse. aa5 12:06 CT completed. Patient tolerated procedure well. Patient moved to CT via stretcher. sj Patient moved back from CT. 12:07 CT Stone Protocol In Process Unspecified. EDMS 16:27 initiated a transfer with Debby at the [facility]. eb 16:45 per Debby at the [facility] they will have to decline the eb patient in transfer they are at capacity. 16:49 initiated a transfer with Jenn at the [facility] transfer center. eb 17:43 Jenn called from [facility] transfer center asking for a 15 minute extension. eb 18:12 Jenn from the [facility] called asking for another 15min extension. eb 19:00 Report given to RAJNI Menchaca and RAJNI Real. aa5 19:29 No provider procedures requiring assistance completed. Patient transferred, IV remains ak1 in place. Administered Medications: 12:00 Drug: Zofran 4 mg Route: IVP; Site: left upper arm; aa5 12:05 Follow up: Response: No adverse reaction aa5 12:00 Drug: fentaNYL (PF) 25 mcg Route: IVP; Site: left upper arm; aa5 12:05 Follow up: Response: No adverse reaction aa5 12:00 Drug: NS 0.9% 1000 ml Route: IV; Rate: 1000 ml; Site: left upper arm; aa5 13:26 Follow up: IV Status: Completed infusion; IV Intake: 1000ml aa5 13:25 Drug: fentaNYL (PF) 25 mcg Route: IVP; Site: left upper arm; aa5 14:05 Follow up: Response: No adverse reaction; Pain is unchanged, physician notified aa5 14:30 Drug: Dilaudid 1 mg Route: IVP; Site: left upper arm; ss 14:35 Follow up: Response: No adverse reaction aa5 14:49 Follow up: Response: No adverse reaction; Pain is decreased ss 14:49 Drug: Tylenol 1000 mg Route: PO; ss 15:37 Follow up: Response: No adverse reaction; Temperature is unchanged aa5 15:50 Drug: Rocephin 1 grams Route: IV; Rate: calculated rate; Site: right antecubital; aa5 16:00 Follow up: Response: No adverse reaction aa5 16:00 Follow up: Response: No adverse reaction aa5 20:07 Follow up: IV Status: Completed infusion ak1 15:50 Drug: NS 0.9% 1000 ml Route: IV; Rate: 1000 ml; Site: left upper arm; aa5 17:52 Follow up: IV Status: Completed infusion; IV Intake: 1000ml aa5 17:52 Drug: NS 0.9% 1000 ml Route: IV; Rate: 100 ml/hr; Site: left upper arm; aa5 20:07 Follow up: IV Status: Completed infusion ak1 18:09 Drug: Dilaudid 1 mg Route: IVP; Site: left upper arm; aa5 18:20 Follow up: Response: No adverse reaction aa5 Intake: 13:26 IV: 1000ml; Total: 1000ml. aa5 17:52 IV: 1000ml; Total: 2000ml. aa5 Outcome: 16:14 ER care complete, transfer ordered by . pm1 19:35 Transferred by ground EMS to [facility], Transfer form completed. ak1 X-rays sent w/ patient. Note: report called to Kadeem Lorenz at [phone] 19:35 Condition: stable 19:35 Instructed on the need for admit. 20:07 Patient left the ED. ak1 Addendum: 06/14/2018 12:31 Addendum: Culture Results: Positive urine culture. Positive blood culture. Phone call gene rodgers Attempt #1 faxed to [facility] [phone]. Signatures: Dispatcher [employer] EDThea Leonard Audri, RN RN aa5 Verito Pascal RN RN ss Krenek, Amber, RN RN ak1 Gorge Fuentes, ED PHYSICIANS ED PHYSICIANS pm1 Edda Bloom RN RN Lilliana Holman Corrections: (The following items were deleted from the chart) 06/10 11:22 11:17 BP 119 / 99; Pulse 115bpm; Resp 18bpm; Spontaneous; Pulse Ox 99% RA; Temp 99.1F aa5 Oral; aa5 11:27 11:20 GI: Abdomen is round with large area of scar tissue noted. colostomy noted Bowel aa5 sounds present X 4 quads. Abd is soft and non tender X 4 quads. aa5
--- NOTE | 2018-06-10 16:15 | EDPHYS ---
Physician Documentation [facility] Name: Leila Aquino Age: 37 yrs Sex: Female : 1980 Arrival Date: 06/10/2018 Time: 11:16 Bed 8 Private MD: ED Physician Dakotah Reid HPI: 06/10 12:00 This 37 yrs old Black Female presents to ER via EMS with complaints of Back Pain. pm1 12:00 The patient presents with pain that is acute. The symptoms are located in the low back, pm1 right flank. Onset: The symptoms/episode began/occurred today. The pain radiates to the abdomen. Associated signs and symptoms: Pertinent positives: fever, Pertinent negatives: chest pain, headache, nausea, numbness, tingling, vomiting. The problem was sustained Kidney stone. The patient has been recently seen by a physician: Dr. Alberto on Wednesday. Patient with nephrostomy tube on left side removed 2-3 weeks ago. Recommended placement of nephrostomy tube placement to right side. Patient deferred. Historical: - Allergies: 11:16 Latex, Natural Rubber; aa5 11:16 Morphine; aa5 11:16 Vancomycin; aa5 - PMHx: 11:16 ADD/ADHD; Anemia; Asthma; DVT; Hypertension; Kidney stones; Sepsis; spina bifida; UTI; aa5 Osteomyelitis-L foot; 11:22 Upper extremity DVT- L arm; aa5 - PSHx: 11:16 urostomy; "multiple abdominal surgeries"; Colostomy; aa5 - Immunization history:: Adult Immunizations up to date. - Social history:: Smoking status: Patient/guardian denies using tobacco. - Ebola Screening: : No symptoms or risks identified at this time. ROS: 12:00 Eyes: Negative for injury, pain, redness, and discharge, ENT: Negative for injury, pm1 pain, and discharge, Neck: Negative for injury, pain, and swelling, Cardiovascular: Negative for chest pain, palpitations, and edema, Respiratory: Negative for shortness of breath, cough, wheezing, and pleuritic chest pain, Abdomen/GI: Negative for abdominal pain, nausea, vomiting, diarrhea, and constipation, : Negative for injury, bleeding, discharge, and swelling, MS/Extremity: Negative for injury and deformity. 12:00 Skin: Negative for injury, rash, and discoloration. 12:00 Neuro: Negative for headache, weakness, numbness, tingling, and seizure. 12:00 Constitutional: Positive for fever, Negative for poor PO intake. 12:00 Abdomen/GI: Positive for abdominal pain, nausea and vomiting, of the diffusely, Negative for diarrhea. 12:00 Back: Positive for flank pain, on the right. Exam: 12:00 Constitutional: This is a well developed, well nourished patient who is awake, alert, pm1 and in no acute distress. Head/Face: Normocephalic, atraumatic. Eyes: Pupils equal round and reactive to light, extra-ocular motions intact. Lids and lashes normal. Conjunctiva and sclera are non-icteric and not injected. Cornea within normal limits. Periorbital areas with no swelling, redness, or edema. ENT: Nares patent. No nasal discharge, no septal abnormalities noted. Tympanic membranes are normal and external auditory canals are clear. Oropharynx with no redness, swelling, or masses, exudates, or evidence of obstruction, uvula midline. Mucous membranes moist. Neck: Trachea midline, no thyromegaly or masses palpated, and no cervical lymphadenopathy. Supple, full range of motion without nuchal rigidity, or vertebral point tenderness. No Meningismus. Chest/axilla: Normal chest wall appearance and motion. Nontender with no deformity. No lesions are appreciated. Cardiovascular: Regular rate and rhythm with a normal S1 and S2. No gallops, murmurs, or rubs. Normal PMI, no JVD. No pulse deficits. Respiratory: Lungs have equal breath sounds bilaterally, clear to auscultation and percussion. No rales, rhonchi or wheezes noted. No increased work of breathing, no retractions or nasal flaring. 12:00 Skin: Warm, dry with normal turgor. Normal color with no rashes, no lesions, and no evidence of cellulitis. MS/ Extremity: Pulses equal, no cyanosis. Neurovascular intact. Full, normal range of motion. 12:00 Abdomen/GI: Inspection: abdomen appears normal, scar(s), are noted in the suprapubic area, right lower quadrant and left lower quadrant, Bowel sounds: normal, Palpation: mild abdominal tenderness, in all quadrants, mass, is not appreciated, rebound tenderness, is not appreciated. 12:00 Back: CVA tenderness, that is moderate, is noted on the right. 12:00 Neuro: Orientation: is normal, Motor: moves upper extremities. Lower extremity paralysis since . Vital Signs: 11:17 BP 119 / 99; Pulse 115; Resp 18 S; Temp 99.1(O); Pulse Ox 99% on R/A; Weight 65.32 kg aa5 (R); Height 5 ft. 0 in. (152.40 cm) (R); Pain 10/10; 12:44 BP 136 / 85; Pulse 120; Resp 18 S; Pulse Ox 100% on R/A; Pain 10/10; aa5 14:13 BP 119 / 70; Pulse 125; Resp 16; Pulse Ox 100% on R/A; Pain 10/10; ss 14:34 Pulse 124; Resp 20 S; Temp 100.7(O); Pulse Ox 100% on R/A; Pain 10/10; aa5 15:36 BP 104 / 69; Pulse 130; Resp 20 S; Temp 100.7(O); Pulse Ox 99% on R/A; Pain 8/10; aa5 16:50 BP 101 / 73; Pulse 125; Resp 16 S; Temp 99.6(O); Pulse Ox 98% on R/A; Pain 8/10; aa5 17:53 BP 113 / 78; Pulse 119; Resp 18 S; Pulse Ox 98% on R/A; Pain 10/10; aa5 18:08 Temp 99.0(O); aa5 19:36 BP 105 / 83; Pulse 117; Resp 20; Temp 99.0; Pulse Ox 99% on R/A; Pain 3/10; ak1 11:17 Body Mass Index 28.12 (65.32 kg, 152.40 cm) aa5 MDM: 11:36 Patient medically screened. pm1 16:03 Counseling: I had a detailed discussion with the patient and/or guardian regarding: the pm1 historical points, exam findings, and any diagnostic results supporting the discharge/admit diagnosis, lab results, radiology results, the need to transfer to another facility, [facility] does not immediately have the required specialist. 16:45 Physician consultation: Urologist Miesha was contacted at 16:45, regarding regarding pm1 transfer, patient's condition, Recommends interventional radiology if available at our facility. If no interventional radiologist available then will consult for patient on transfer to [facility]. 16:50 ED course: No interventional radiology available here at [facility], will continue with pm1 transfer. 17:00 ED course: [facility] at capacity. pm1 17:07 Data reviewed: vital signs. Data interpreted: Pulse oximetry: on room air is 98 %. pm1 Interpretation: normal. 17:12 Physician consultation: ICU paste worker Arias was contacted at 17:12, regarding pm1 regarding transfer, patient's condition, and will see patient. 06/10 11:40 Order name: Basic Metabolic Panel; Complete Time: 12:40 pm1 06/10 11:40 Order name: CBC with Diff; Complete Time: 18:21 pm1 06/10 11:40 Order name: Creatinine for Radiology; Complete Time: 12:40 pm1 06/10 11:40 Order name: Hepatic Function; Complete Time: 12:40 pm1 06/10 11:40 Order name: Lipase; Complete Time: 12:40 pm1 06/10 12:00 Order name: Urine Dipstick--Ancillary (enter results); Complete Time: 12:55 eb 06/10 11:45 Order name: CT Stone Protocol; Complete Time: 12:40 pm1 06/10 12:00 Order name: Urine --Ancillary (enter results); Complete Time: 12:55 eb 06/10 14:08 Order name: Procalcitonin; Complete Time: 15:10 pm1 06/10 14:08 Order name: Lactate; Complete Time: 15:10 pm1 06/10 14:08 Order name: Blood Culture Adult (2); Complete Time: 13:37 pm1 06/10 14:08 Order name: Urine Microscopic Only; Complete Time: 15:55 pm1 06/10 15:45 Order name: Urine Culture; Complete Time: 13:37 EDMS 06/10 17:22 Order name: Manual Differential; Complete Time: 18:21 EDMS 06/10 11:40 Order name: IV Saline Lock; Complete Time: 11:44 pm1 06/10 11:40 Order name: Labs collected and sent; Complete Time: 11:44 pm1 06/10 11:40 Order name: Urine Dipstick-Ancillary (obtain specimen); Complete Time: 12:04 pm1 06/10 11:40 Order name: Urine Test (obtain specimen); Complete Time: 12:04 pm1 Administered Medications: 12:00 Drug: Zofran 4 mg Route: IVP; Site: left upper arm; aa5 12:05 Follow up: Response: No adverse reaction aa5 12:00 Drug: fentaNYL (PF) 25 mcg Route: IVP; Site: left upper arm; aa5 12:05 Follow up: Response: No adverse reaction aa5 12:00 Drug: NS 0.9% 1000 ml Route: IV; Rate: 1000 ml; Site: left upper arm; aa5 13:26 Follow up: IV Status: Completed infusion; IV Intake: 1000ml aa5 13:25 Drug: fentaNYL (PF) 25 mcg Route: IVP; Site: left upper arm; aa5 14:05 Follow up: Response: No adverse reaction; Pain is unchanged, physician notified aa5 14:30 Drug: Dilaudid 1 mg Route: IVP; Site: left upper arm; ss 14:35 Follow up: Response: No adverse reaction aa5 14:49 Follow up: Response: No adverse reaction; Pain is decreased ss 14:49 Drug: Tylenol 1000 mg Route: PO; ss 15:37 Follow up: Response: No adverse reaction; Temperature is unchanged aa5 15:50 Drug: Rocephin 1 grams Route: IV; Rate: calculated rate; Site: right antecubital; aa5 16:00 Follow up: Response: No adverse reaction aa5 16:00 Follow up: Response: No adverse reaction aa5 20:07 Follow up: IV Status: Completed infusion ak1 15:50 Drug: NS 0.9% 1000 ml Route: IV; Rate: 1000 ml; Site: left upper arm; aa5 17:52 Follow up: IV Status: Completed infusion; IV Intake: 1000ml aa5 17:52 Drug: NS 0.9% 1000 ml Route: IV; Rate: 100 ml/hr; Site: left upper arm; aa5 20:07 Follow up: IV Status: Completed infusion ak1 18:09 Drug: Dilaudid 1 mg Route: IVP; Site: left upper arm; aa5 18:20 Follow up: Response: No adverse reaction aa5 Disposition: 06/11 13:20 Co-signature as Attending Physician, Dakotah Reid MD I agree with the assessment and kdr plan of care. Disposition: 06/10/18 16:14 Transfer ordered to Other Acute Care Facility. Diagnosis are Hydronephrosis with renal and ureteral calculous obstruction, Urosepsis. - Reason for transfer: Specialty. - Accepting physician is Dr. Juliana OLIVEIRA. - Condition is Stable. - Problem is new. - Symptoms have improved. Addendum: 07/19/2018 13:58 Addendum: Diagnosis: Sepsis secondary to Urinary Tract Infection. radha raymundo Signatures: Dispatcher [employer] EDMS Dakotah Reid MD MD [facility] Kay Goldstein RN RN aa5 Verito Pascal RN RN ss Addie Rodriguez RN RN ak1 Gorge Fuentes, DIRECTOR MEDICAL ECONOMICS DIRECTOR MEDICAL ECONOMICS pm1 Corrections: (The following items were deleted from the chart) 06/10 20:07 16:14 06/10/2018 16:14 Transfer ordered to Other Acute Care Facility. Diagnosis is ak1 Hydronephrosis with renal and ureteral calculous obstruction; Urosepsis. Reason for transfer: Specialty. Accepting physician is Dr. Juliana OLIVEIRA. Condition is Stable. Problem is new. Symptoms have improved. pm1
[2018-06-10 17:23] LABS: Platelet Estimate INCR
[2018-06-10 17:24] LABS: Anisocytosis 2+; Blood Morphology Comment NOTED (NOT SEEN); Ovalocytes 1+; Poikilocytosis 1+; Teardrop Cell FEW
[2018-06-10 20:20] VITALS: TEMP 99
[2018-06-10 20:22] VITALS: BP 105/83; O2SAT 99
== END 2018-06-10 20:07 ==
LOC: ER 11:10
DX: N13.2 Hydronephrosis with renal and ureteral calculous obstruction (principal); A41.9 Sepsis, unspecified organism; N39.0 Urinary tract infection, site not specified; I10 Essential (primary) hypertension; Z88.3 Allergy status to other anti-infective agents; Z88.5 Allergy status to narcotic agent; Z88.8 Allergy status to other drugs, medicaments and biological substances; Z91.040 Latex allergy status; Z87.442 Personal history of urinary calculi
CPT/HCPCS: 36415; 74176; 76377; 80048; 80076; 81025; 83605; 83690; 84145; 85025; 87040 ×2; 87077 ×3; 87086; 87088; 87186 ×3; 87205 ×3; 96361; 96365; 96366; 96375; 99285; J0696; J1170 ×2; J2405; J3010; J7030 ×3; 81003; 81015

== ENCOUNTER 2018-10-20 15:09 | Inpatient (IN) | payer OTHER ==
--- OUTSIDE RECORDS SUMMARY | 2018-10-20 15:19 | XMS REPORT | Clinical Summary ---
:1980 Author Organization [facility] Address [address] [place] [address] Care Team Providers Name Role Phone Beverley Brett Carrasco Primary Care Provider Allergies Active Allergy Reactions Severity Noted Date Comments Latex 06/10/2018 Morphine Other (See Comments) 06/10/2018 Hallucinations Vancomycin Analogues Itching 06/10/2018 Medications Medication Sig Dispensed Refills Start End Date Status Date amLODIPine (NORVASC) Take 5 mg by 0 Active 5 MG tablet mouth daily. rivaroxaban Take by mouth 0 Active (XARELTO) 20 mg Tab daily with tablet dinner. albuterol HFA Inhale 1 puff by 0 Active (VENTOLIN HFA) 90 mouth via mcg/actuation inhaler every 6 inhaler (six) hours as needed for Wheezing. acetaminophen Take 650 mg by 0 Active (TYLENOL) 325 MG mouth every 6 tablet (six) hours as needed for Pain. polyethylene glycol Take 17 g by 0 Active (GLYCOLAX) 17 gram mouth daily. packet sertraline (ZOLOFT) Take 100 mg by 0 Active 100 MG tablet mouth nightly. zolpidem (AMBIEN) 5 Take 5 mg by 0 Active MG tablet mouth every night as needed for Insomnia. ondansetron (ZOFRAN) Take 1 tablet (4 30 tablet 0 Active 4 MG tablet mg total) by 8 mouth 3 (three) times daily as needed for Nausea. levalbuterol EVERY 4 HOURS 0 Active (XOPENEX HFA) 45 NEEDED 3 mcg/actuation inhaler diphenhydrAMINE Take 25 mg by 0 Active (BENADRYL) 25 mg mouth every 6 capsule (six) hours as needed for Itching or Allergies. aluminum-magnesium Take 10 mLs by 0 Active hydroxide-simethicon mouth 4 (four) e (MAALOX PLUS) times daily suspension before meals and 200-200-20 mg/5 mL nightly. aspirin 325 MG Take 325 mg by 0 Active tablet mouth daily. HYDROcodone-acetamin Take 1 tablet by 0 Active ophen (NORCO 10-325) mouth every 4 10-325 mg per tablet (four) hours as needed for Pain. tamsulosin (FLOMAX) Take 1 capsule 30 capsule 0 Active 0.4 mg Cap 24 hr (0.4 mg total) 8 capsule by mouth daily. nitrofurantoin Take 100 mg by 0 06/13/20 Discontinued (MACRODANTIN) 100 MG mouth 2 (two) 18 capsule times daily. ondansetron (ZOFRAN) Take 4 mg by 0 06/13/20 Discontinued 4 MG tablet mouth 3 (three) 18 times daily as needed for Nausea. HYDROcodone-acetamin Take 1 tablet by 30 tablet 0 06/13/20 Discontinued ophen (NORCO 5-325) mouth every 4 8 18 5-325 mg per tablet (four) hours as needed for up to 10 days. Max Daily Amount: 6 tablets sulfamethoxazole-tri Take 1 tablet 22 tablet 0 06/29/20 Discontinued methoprim (BACTRIM (160 mg of 8 18 DS) 800-160 mg per trimethoprim tablet total) by mouth 2 (two) times daily for 11 days. HYDROcodone-acetamin Take 1 tablet by 60 tablet 0 06/23/20 ophen (NORCO) 10-325 mouth every 4 8 18 mg per tablet (four) hours as needed for Pain for up to 10 days. Max Daily Amount: 6 tablets acetaminophen-codein Take 1 tablet by 30 tablet 0 07/09/20 e (TYLENOL #3) mouth every 4 8 18 300-30 mg per tablet (four) hours as needed for up to 10 days. Max Daily Amount: 6 tablets traMADol (ULTRAM) 50 Take 1 tablet 30 tablet 0 07/09/20 mg tablet (50 mg total) by 8 18 mouth every 6 (six) hours as needed for Pain for up to 10 days. Max Daily Amount: 200 mg docusate sodium Take 1 capsule 30 capsule 0 07/09/20 (COLACE) 100 MG (100 mg total) 8 18 capsule by mouth 2 (two) times daily for 10 days. Active Problems Problem Noted Date History of MDR Enterobacter cloacae infection 06/25/2018 Right ureteral stone 06/11/2018 Urinary tract obstruction due to kidney stone 06/11/2018 Acute cystitis without hematuria 06/10/2018 Hydronephrosis 06/10/2018 Spina bifida of thoracolumbar region with hydrocephalus 06/10/2018 Resolved Problems Problem Noted Date Resolved Date Sepsis 06/10/2018 06/10/2018 Encounters Date Type Specialty Care Team Description 06/28/2018 Anesthesia Event Juan Wood MD 06/28/2018 Surgery Hao Welch LITHOTRIPSY,ONESIMO Goodwin MD 06/24/2018 - Hospital Encounter General Internal Hao Welch History of MDR Enterobacter cloacae infection (Primary Dx); 06/29/2018 Medicine MD Buddy Polymicrobial bacterial infection; Other hydronephrosis; Right ureteral stone; Spina bifida of thoracolumbar region with hydrocephalus (HCC); Urinary tract obstruction due to kidney stone; Hydronephrosis with urinary obstruction due to renal calculus 06/12/2018 Surgery Virtual, Surgeon PROCEDURE DONE OUTSIDE OR 06/12/2018 Anesthesia Event Madison Hdz CRNA 06/10/2018 - Hospital Encounter General Internal Cathi, Acute cystitis without hematuria; 06/13/2018 Medicine Ras Evans, Hydronephrosis with urinary obstruction due to renal calculus; Spina bifida of thoracolumbar region with hydrocephalus (HCC); Opal Becker Sepsis, due to unspecified organism (HCC); MD Valerie Right ureteral stone Rashida King MD after 10/19/2017 Social History Tobacco Use Types Packs/Day Years Used Date Never Smoker Smokeless Tobacco: Never Used Sex Assigned at Date Recorded Not on file Job Start Date Occupation Industry Not on file Not on file Not on file Travel History Travel Start Travel End No recent travel history available. Last Filed Vital Signs Vital Sign Reading Time Taken Blood Pressure 134/75 06/29/2018 3:16 PM CDT Pulse 87 06/29/2018 3:16 PM CDT Temperature 36.6 C (97.9 F) 06/29/2018 3:16 PM CDT Respiratory Rate 18 06/29/2018 3:16 PM CDT Oxygen Saturation 100% 06/29/2018 3:16 PM CDT Inhaled Oxygen Concentration - - Weight 65.3 kg (144 lb) 06/24/2018 12:46 PM CDT Height 152.4 cm (5') 06/24/2018 12:46 PM CDT Body Mass Index 28.12 06/24/2018 12:46 PM CDT Plan of Treatment Not on file Implants Implanted Type Area Body Die Maker Device Shelf Model / Identifier Expiration Date Serial / Lot Matrix Floseal Hemo W/O [id number] - [id number] Cement/Fi NAVARRO:BIOSCI [id number] / Implanted: Qty: 1 on 06/28/2018 by Hao Welch MD ller/Ramila / kalpana [id number] Procedures Procedure Name Priority Date/Time Associated Comments Diagnosis TRANSFUSE Routine 10/06/2018 5:33 LEUKO-REDUCED RED PM VENTILATING EXPERT BLOOD CELLS TRANSFUSION SERVICE 06/30/2018 6:01 REPORT - SCAN PM CDT PREPARE LEUKO-REDUCED Routine 06/29/2018 11:54 Results for this RBC PM CDT procedure are in the results section. TRANSFUSION SERVICE 06/29/2018 6:00 REPORT - SCAN PM CDT CBC W/PLT COUNT & Routine 06/29/2018 5:26 Results for this AUTO DIFFERENTIAL AM CDT procedure are in the results section. BASIC METABOLIC PANEL Routine 06/29/2018 5:26 Results for this (7) AM CDT procedure are in the results section. CBC W/PLT COUNT & Routine 06/29/2018 5:26 Results for this AUTO DIFFERENTIAL AM CDT procedure are in the results section. CT ABDOMEN/PELVIS Routine 06/29/2018 5:12 Results for this WITHOUT IV CONTRAST AM CDT procedure are in the results section. CBC W/PLT COUNT & Routine 06/28/2018 8:25 Results for this AUTO DIFFERENTIAL PM CDT procedure are in the results section. CBC W/PLT COUNT & Routine 06/28/2018 8:25 Results for this AUTO DIFFERENTIAL PM CDT procedure are in the results section. BASIC METABOLIC PANEL Routine 06/28/2018 8:25 Results for this (7) PM CDT procedure are in the results section. TRANSFUSION SERVICE 06/28/2018 6:24 REPORT - SCAN PM CDT XR CHEST 1 VIEW Routine 06/28/2018 12:30 Results for this PORTABLE/BEDSIDE PM CDT procedure are in the results section. STONE ANALYSIS JUSTINE 06/28/2018 9:34 Results for this AM CDT procedure are in the results section. ANAEROBIC CULTURE JUSTINE 06/28/2018 9:28 Results for this AM CDT procedure are in the results section. SURGICALLY OBTAINED JUSTINE 06/28/2018 9:28 Results for this CULTURE + GRAM STAIN AM CDT procedure are in the results section. FL CONSTRUCTION SALES MANAGER IN OR 30 Routine 06/28/2018 9:20 Results for this MINUTE INCREMENTS AM CDT procedure are in the results section. PROCEDURE W/ C-ARM 06/28/2018 7:30 Kidney stones AM CDT Special Needs (C-ARM) LITHOTRIPSY,PERCUTANEOUS 06/28/2018 7:30 AM CDT Kidney stones Special Needs (C-ARM) CBC W/PLT COUNT & AUTO Routine 06/28/2018 7:12 AM Results for this DIFFERENTIAL CDT procedure are in the results section. BASIC METABOLIC PANEL Routine 06/28/2018 7:12 AM Results for this (7) CDT procedure are in the results section. CBC W/PLT COUNT & AUTO Routine 06/28/2018 7:12 AM Results for this DIFFERENTIAL CDT procedure are in the results section. TYPE AND SCREEN, Routine 06/27/2018 8:51 PM Results for this AUTOMATED CDT procedure are in the results section. HEMOGLOBIN AND Routine 06/27/2018 1:50 PM Results for this HEMATOCRIT CDT procedure are in the results section. CBC W/PLT COUNT & AUTO Routine 06/27/2018 5:22 AM Results for this DIFFERENTIAL CDT procedure are in the results section. BASIC METABOLIC PANEL Routine 06/27/2018 5:22 AM Results for this (7) CDT procedure are in the results section. CBC W/PLT COUNT & AUTO Routine 06/27/2018 5:22 AM Results for this DIFFERENTIAL CDT procedure are in the results section. HEMOGLOBIN AND Routine 06/26/2018 2:10 PM Results for this HEMATOCRIT CDT procedure are in the results section. CBC W/PLT COUNT & AUTO Routine 06/26/2018 9:35 AM Results for this DIFFERENTIAL CDT procedure are in the results section. CBC W/PLT COUNT & AUTO Routine 06/26/2018 9:35 AM Results for this DIFFERENTIAL CDT procedure are in the results section. BASIC METABOLIC PANEL Routine 06/26/2018 4:49 AM Results for this (7) CDT procedure are in the results section. CBC W/PLT COUNT & AUTO Routine 06/25/2018 1:19 PM Results for this DIFFERENTIAL CDT procedure are in the results section. CBC W/PLT COUNT & AUTO Routine 06/25/2018 1:19 PM Results for this DIFFERENTIAL CDT procedure are in the results section. XR CHEST 1 VIEW STAT 06/25/2018 9:28 AM Results for this PORTABLE/BEDSIDE CDT procedure are in the results section. BASIC METABOLIC PANEL Routine 06/25/2018 9:09 AM Results for this (7) CDT procedure are in the results section. URINE CULTURE Routine 06/24/2018 12:41 PM Results for this CDT procedure are in the results section. URINE CULTURE Routine 06/24/2018 12:41 PM Results for this CDT procedure are in the results section. CBC W/PLT COUNT & AUTO Routine 06/24/2018 12:32 PM Results for this DIFFERENTIAL CDT procedure are in the results section. BASIC METABOLIC PANEL Routine 06/24/2018 12:32 PM Results for this (7) CDT procedure are in the results section. CBC W/PLT COUNT & AUTO Routine 06/24/2018 12:32 PM Results for this DIFFERENTIAL CDT procedure are in the results section. BASIC METABOLIC PANEL Routine 06/13/2018 3:50 AM Results for this (7) CDT procedure are in the results section. URINALYSIS W/ REFLEX Routine 06/12/2018 2:36 PM Results for this URINE CULTURE CDT procedure are in the results section. URINE CULTURE Routine 06/12/2018 2:36 PM Results for this CDT procedure are in the results section. IR PERCUTANEOUS STAT 06/12/2018 11:48 AM Results for this NEPHROSTOMY TUBE CDT procedure are in PLACEMENT the results section. BODY FLUID CULTURE + Routine 06/12/2018 11:40 AM Results for this GRAM STAIN CDT procedure are in the results section. PROCEDURE DONE OUTSIDE 06/12/2018 10:30 AM Renal stones OR CDT CBC (HEMOGRAM ONLY) JUSTINE 06/12/2018 8:07 AM Results for this CDT procedure are in the results section. PT/APTT JUSTINE 06/12/2018 6:07 AM Results for this CDT procedure are in the results section. BASIC METABOLIC PANEL Routine 06/12/2018 6:07 AM Results for this (7) CDT procedure are in the results section. CT ABDOMEN/PELVIS Routine 06/11/2018 5:48 PM Results for this WITHOUT IV CONTRAST CDT procedure are in the results section. SCREEN, URINE Routine 06/11/2018 11:20 AM Results for this CDT procedure are in the results section. URINALYSIS W/ REFLEX Routine 06/11/2018 11:20 AM Results for this URINE CULTURE CDT procedure are in the results section. BLOOD CULTURE Routine 06/11/2018 4:55 AM Results for this CDT procedure are in the results section. CBC W/PLT COUNT & AUTO Routine 06/11/2018 4:54 AM Results for this DIFFERENTIAL CDT procedure are in the results section. CBC W/PLT COUNT & AUTO Routine 06/11/2018 4:54 AM Results for this DIFFERENTIAL CDT procedure are in the results section. LACTIC ACID, VENOUS, Routine 06/11/2018 4:54 AM Results for this WHOLE BLOOD CDT procedure are in the results section. BASIC METABOLIC PANEL Routine 06/11/2018 4:54 AM Results for this (7) CDT procedure are in the results section. PROTHROMBIN TIME/INR STAT 06/11/2018 4:54 AM Results for this CDT procedure are in the results section. APTT STAT 06/11/2018 4:54 AM Results for this CDT procedure are in the results section. CBC W/PLT COUNT & AUTO STAT 06/11/2018 1:02 AM Results for this DIFFERENTIAL CDT procedure are in the results section. LACTIC ACID, ARTERIAL, Routine 06/11/2018 1:02 AM Results for this WHOLE BLOOD CDT procedure are in the results section. PHOSPHORUS STAT 06/11/2018 1:02 AM Results for this CDT procedure are in the results section. MAGNESIUM STAT 06/11/2018 1:02 AM Results for this CDT procedure are in the results section. COMPREHENSIVE METABOLIC STAT 06/11/2018 1:02 AM Results for this PANEL CDT procedure are in the results section. CBC W/PLT COUNT & AUTO STAT 06/11/2018 1:02 AM Results for this DIFFERENTIAL CDT procedure are in the results section. BLOOD CULTURE Routine 06/10/2018 11:58 PM Results for this CDT procedure are in the results section. URINALYSIS W/ Routine 06/10/2018 11:37 PM Results for this MICROSCOPIC CDT procedure are in the results section. URINE CULTURE Routine 06/10/2018 11:36 PM Results for this CDT procedure are in the results section. after 10/19/2017 Results Transfuse Leuko-Red RBC (10/06/2018 5:33 PM VENTILATING EXPERT)TRANSFUSION SERVICE REPORT - SCAN (06/30/2018 6:01 PM CDT)Only the most recent of3 resultswithin the time period is included. Narrative Performed At Prepare Leuko-Red RBC (06/29/2018 11:54 PM CDT) CROSSMATCH COMPATIBLE [facility] TX Unit ABO A Neg [facility] TX UNIT NUMBER [id number] [facility] [place] Status TRANSFUSED [facility] [place] Blood Bank Product RED BLOOD CELLS [facility] TX PRODUCT CODE [id number] [facility] [place] CROSSMATCH COMPATIBLE [facility] TX Unit ABO A Neg [facility] TX UNIT NUMBER [id number] [facility] [place] Status TRANSFUSED [facility] [place] Blood Bank Product RED BLOOD CELLS [facility] [place] PRODUCT CODE [id number] [facility] [place] Specimen Other Performing Organization Address City/State/Zipcode Phone Number [facility] [place] CBC with platelet count + automated diff (06/29/2018 5:26 AM CDT)Only the most recent of9 resultswithin the time period is included. WBC 9.2 3.5 - 10.5 K/L [facility] RBC 4.41 3.93 - 5.22 M/L [facility] Hemoglobin 10.1 (L) 11.2 - 15.7 GM/DL [facility] Hematocrit 33.7 (L) 34.1 - 44.9 % [facility] MCV 76.4 (L) 79.4 - 94.8 fL [facility] MCH 22.9 (L) 25.6 - 32.2 pg [facility] MCHC 30.0 (L) 32.2 - 35.5 GM/DL [facility] RDW 21.2 (H) 11.7 - 14.4 % [facility] Platelets 51 (L) 150 - 450 K/CU MM [facility] MPV Comment: Unable to 9.4 - 12.3 fL [facility] report due to abnormal [facility] Platelet population distribution. nRBC 0 0 - 0 /100 WBC [facility] % Neutros 71 % [facility] % Lymphs 17 % [facility] % Monos 10 % [facility] % Eos 1 % [facility] % Baso 0 % [facility] # Neutros 6.59 (H) 1.56 - 6.13 K/L [facility] # Lymphs 1.59 1.18 - 3.74 K/L [facility] # Monos 0.91 (H) 0.24 - 0.36 K/L [facility] # Eos 0.07 0.04 - 0.36 K/L [facility] # Baso 0.03 0.01 - 0.08 K/L [facility] Immature 0 0 - 1 % [facility] Granulocytes-Relative [facility] Specimen Blood - Central Venous Line Performing Organization Address City/State/Zipcode Phone Number [facility] [address] [place] [address] CENTER Basic Metabolic Panel (06/29/2018 5:26 AM CDT)Only the most recent of10 resultswithin the time period is included. Sodium 137 136 - 145 meq/L [facility] Potassium 3.7 3.5 - 5.1 meq/L [facility] Chloride 112 (H) 98 - 107 meq/L [facility] CO2 17 (L) 22 - 29 meq/L [facility] BUN 7 7 - 21 mg/dL [facility] Creatinine 0.64 0.57 - 1.25 mg/dL [facility] Glucose 82 70 - 105 mg/dL [facility] Calcium 8.9 8.4 - 10.2 mg/dL [facility] EGFR 126Comment: ESTIMATED GFR IS mL/min/1.73 sq m [facility] NOT ACCURATE CREATININE [facility] CLEARANCE IN PREDICTING GLOMERULAR FILTRATION RATE. ESTIMATED GFR IS NOT APPLICABLE FOR DIALYSIS PATIENTS. Specimen Blood - Central Venous Line Performing Organization Address City/State/Zipcode Phone Number [facility] [address] [place] [address] [phone] abdomen/pelvis without iv contrast (06/29/2018 5:12 AM CDT)Only the most recent of2 resultswithin the time period is included. Narrative Performed At FINAL REPORT [facility] INDICATION: 37-year-old female status post recent percutaneous right nephroureterostomy tube placement for obstructing right ureteral stone. History of spina bifida and caudal regression. COMPARISON: Right nephroureterostomy tube placement June 12, [address] exam June 11, 2018 TECHNIQUE: CT of the Abdomen and Pelvis WITHOUT intravenous contrast. Enteric contrast was not used. The exam was performed according to our department dose-optimization protocol, which includes automated exposure control, adjustments of mA and kV according to patient size. Iterative reconstructions are also sometimes employed. FINDINGS: Right hydroureteronephrosis has resolved after percutaneous nephroureterostomy tube placement. Right kidney and ureter stones are no longer present. Focal parenchymal calcification in the lateral interpolar right kidney again noted. Findings of spina bifida, caudal regression, and right hip dysplasia. Right lower quadrant urostomy and left lower quadrant diverting colostomy again noted. Moderate left pleural effusion is unchanged with a pleural catheter, probably a ventriculopleural shunt. Liver, gallbladder, pancreas, spleen, left adrenal gland unremarkable. Right adrenal gland not definitively identified. Vaginal pessary noted. IMPRESSION: Resolved right hydroureteronephrosis and right sided urinary stones. Signed: Frederick Lozano MD Report Verified Date/Time:06/29/2018 07:41:57 Reading Location: [facility] Diagnostic Imaging Reading Room - [place] [id number] Procedure Note Interface, External Ris In - 06/29/2018 7:44 AM CDT FINAL REPORT INDICATION: 37-year-old female status post recent percutaneous right nephroureterostomy tube placement for obstructing right ureteral stone. History of spina bifida and caudal regression. COMPARISON: Right nephroureterostomy tube placement June 12, [address] exam June 11, 2018 TECHNIQUE: CT of the Abdomen and Pelvis WITHOUT intravenous contrast. Enteric contrast was not used. The exam was performed according to our department dose-optimization protocol, which includes automated exposure control, adjustments of mA and kV according to patient size. Iterative reconstructions are also sometimes employed. FINDINGS: Right hydroureteronephrosis has resolved after percutaneous nephroureterostomy tube placement. Right kidney and ureter stones are no longer present. Focal parenchymal calcification in the lateral interpolar right kidney again noted. Findings of spina bifida, caudal regression, and right hip dysplasia. Right lower quadrant urostomy and left lower quadrant diverting colostomy again noted. Moderate left pleural effusion is unchanged with a pleural catheter, probably a ventriculopleural shunt. Liver, gallbladder, pancreas, spleen, left adrenal gland unremarkable. Right adrenal gland not definitively identified. Vaginal pessary noted. IMPRESSION: Resolved right hydroureteronephrosis and right sided urinary stones. Signed: Frederick Lozano MD Report Verified Date/Time: 06/29/2018 07:41:57 Reading Location: [facility] Diagnostic Imaging Reading Room - [place] [id number] Performing Organization Address City/State/Zipcode Phone Number [facility] XR chest 1 view portable / bedside (06/28/2018 12:30 PM CDT)Only the most recent of2 resultswithin the time period is included. Narrative Performed At FINAL REPORT [facility] TECHNIQUE: Frontal chest radiograph dated 06/28/2018. CLINICAL HISTORY: Evaluate for pneumothorax COMPARISON STUDY: Radiograph of the chest dated 06/25/2018 IMPRESSION: No change in life support lines, tubes and devices. Left pleural effusion has increased and is now large in size. Left lung base atelectasis is is present. Pneumonia should be excluded clinically. No pneumothorax. Cardiomediastinal silhouette is stable in appearance. No pulmonary edema. Curvature of the spine is present. No visualized fracture. Signed: Charanjit White MD Report Verified Date/Time:06/28/2018 13:37:49 Reading Location: [facility] Radiology Reading Room Procedure Note Interface, External Ris In - 06/28/2018 1:40 PM CDT FINAL REPORT TECHNIQUE: Frontal chest radiograph dated 06/28/2018. CLINICAL HISTORY: Evaluate for pneumothorax COMPARISON STUDY: Radiograph of the chest dated 06/25/2018 IMPRESSION: No change in life support lines, tubes and devices. Left pleural effusion has increased and is now large in size. Left lung base atelectasis is is present. Pneumonia should be excluded clinically. No pneumothorax. Cardiomediastinal silhouette is stable in appearance. No pulmonary edema. Curvature of the spine is present. No visualized fracture. Signed: Charanjit White MD Report Verified Date/Time: 06/28/2018 13:37:49 Reading Location: [facility] Radiology Reading Room Performing Organization Address City/State/Zipcode Phone Number [facility] STONE ANALYSIS (06/28/2018 9:34 AM CDT) Stone Source KIDNEY RIGHT [facility] Nidus Not observed [facility] COMPONENT 1 ([facility]) Carbonate Apatite (Dahllite) [facility] 100% [facility] COMPONENT 2 ([facility]) DNR [facility] Stone Weight 0.3130 g [facility] Comment: INC[facility]POR[facility] The image will follow, unless test is cancelled or no picture is available to report. This test was developed and its analytical performance characteristics have been determined by [facility]. It has not been cleared or approved by the US Food and Drug Administration. This assay has been validated pursuant to the CLIA regulations and is used for clinical purposes. Specimen Calculus - Kidney, Right Narrative Performed At Performing Lab [facility] *[facility], [address] [place] [address] Jaret Sanchez MD, PhD Performing Organization Address City/State/Zipcode Phone Number [facility], [place] [address] [facility] [id number] [facility] Anaerobic culture (06/28/2018 9:28 AM CDT) Result No anaerobes isolated [facility] Specimen Calculus - Kidney, Right Performing Organization Address City/State/Zipcode Phone Number [facility] [address] [place] [address] CENTER Surgically obtained culture + gram stain (06/28/2018 9:28 AM CDT) Result 2+ Enterococcus species (A) [facility] Result BOWEN ALBICANS (A) [facility] Result [facility] PNEUMONIAE [facility] PNEUMONIAE (A) [facility] Result 1+ Vancomycin resistant [facility] Enterococcus species (A) [facility] Specimen Calculus - Kidney, Right Organism Antibiotic Method Susceptibility Enterococcus species Ampicillin <=2: Susceptible Enterococcus species Linezolid 2: Susceptible Enterococcus species Vancomycin 1: Susceptible Klebsiella pneumoniae ssp Amikacin <=2: Susceptible pneumoniae Klebsiella pneumoniae ssp Ampicillin + Sulbactam 4: Susceptible pneumoniae Klebsiella pneumoniae ssp Aztreonam <=1: Susceptible pneumoniae Klebsiella pneumoniae ssp Cefepime <=1: Susceptible pneumoniae Klebsiella pneumoniae ssp Cefoxitin <=4: Susceptible pneumoniae Klebsiella pneumoniae ssp Ceftazidime <=1: Susceptible pneumoniae Klebsiella pneumoniae ssp Ceftriaxone <=1: Susceptible pneumoniae Klebsiella pneumoniae ssp Ertapenem <=0.5: Susceptible pneumoniae Klebsiella pneumoniae ssp Gentamicin <=1: Susceptible pneumoniae Klebsiella pneumoniae ssp Levofloxacin <=0.12: Susceptible pneumoniae Klebsiella pneumoniae ssp Meropenem <=0.25: Susceptible pneumoniae Klebsiella pneumoniae ssp Piperacillin + Tazobactam <=4: Susceptible pneumoniae Klebsiella pneumoniae ssp Tetracycline <=1: Susceptible pneumoniae Klebsiella pneumoniae ssp Tobramycin <=1: Susceptible pneumoniae Klebsiella pneumoniae ssp Trimethoprim + Sulfamethoxazole <=20: Susceptible pneumoniae Vancomycin resistant Ampicillin >=32: Resistant Enterococcus species Vancomycin resistant Linezolid 2: Susceptible Enterococcus species Vancomycin resistant Vancomycin >=32: Resistant Enterococcus species Vancomycin resistant Daptomycin 1.5: Susceptible Enterococcus species Performing Organization Address City/State/Zipcode Phone Number [address] [address] [phone] [facility] tech in or 30 minute increments (06/28/2018 9:20 AM CDT) Narrative Performed At FINAL REPORT GE RIS History: PCNL COMPARISON: None DISCUSSION: A total of 8 intraoperative images were submitted for interpretation. Neither was a radiologist present nor requested during the procedure. The findings should be correlated with intraprocedural observations. The images were presented for interpretation following completion of the examination. This is a nondiagnostic examination. The laterality of the images was not provided. Orientation and anatomical location of the images was also not provided. The total fluoroscopy time was 126 seconds . A total of 8 static images were acquired. Signed: Toni Curtis MD Report Verified Date/Time:06/28/2018 09:43:00 Reading Location: [facility] Radiology Reading Room Procedure Note Interface, External Ris In - 06/28/2018 9:45 AM CDT FINAL REPORT History: PCNL COMPARISON: None DISCUSSION: A total of 8 intraoperative images were submitted for interpretation. Neither was a radiologist present nor requested during the procedure. The findings should be correlated with intraprocedural observations. The images were presented for interpretation following completion of the examination. This is a nondiagnostic examination. The laterality of the images was not provided. Orientation and anatomical location of the images was also not provided. The total fluoroscopy time was 126 seconds . A total of 8 static images were acquired. Signed: Toni Curtis MD Report Verified Date/Time: 06/28/2018 09:43:00 Reading Location: [facility] Radiology Reading Room Performing Organization Address City/State/Zipcode Phone Number GE RIS Type and screen, automated (06/27/2018 8:51 PM CDT) ABO/RH AUTOMATED (BEAKER) A NEGATIVE [facility] Ab Scrn NEGATIVE [facility] Specimen Blood Performing Organization Address City/[facility]/Zipcode Phone Number [facility] [address] [place] [address] [phone] Hemoglobin and hematocrit (06/27/2018 1:50 PM CDT)Only the most recent of2 resultswithin the time period is included. Hemoglobin 6.5 (L) 11.2 - 15.7 GM/DL [facility] Hematocrit 23.1 (L) 34.1 - 44.9 % [facility] Specimen Blood - Central Venous Line Performing Organization Address [facility] Phone Number [facility] [address] [place] [address] CENTER Urine culture (06/24/2018 12:41 PM CDT)Only the most recent of4 resultswithin the time period is included. Result >100,000 col/mL Same organism has been isolated from cultures(s) of the same body site and collection date. Repeat identification and susceptibility testing performed only after consultation with the clinical microbiology laboratory. (A) [facility] Comment: MEDICAL CENTER Refer to previous culture of Enterococcus species Result 20-29,000 col/mL Same organism has been isolated from cultures(s) of the same body site and collection date. Repeat identification and susceptibility testing performed only after consultation with the clinical microbiology laboratory. (A) [facility] Comment: MEDICAL CENTER Refer to previous culture of Enterobacter cloacae Result PSEUDOMONAS AERUGINOSA (A) [facility] Result BOWEN PARAPSILOSIS (A) [facility] Specimen Urine - Urine, Voided Organism Antibiotic Method Susceptibility Pseudomonas aeruginosa Amikacin <=8: Susceptible Pseudomonas aeruginosa Aztreonam 4: Susceptible Pseudomonas aeruginosa Cefepime <=4: Susceptible Pseudomonas aeruginosa Ceftazidime <=1: Susceptible Pseudomonas aeruginosa Ciprofloxacin >2: Resistant Pseudomonas aeruginosa Gentamicin >8: Resistant Pseudomonas aeruginosa Levofloxacin >8: Resistant Pseudomonas aeruginosa Meropenem 1: Susceptible Pseudomonas aeruginosa Piperacillin <=16: Susceptible Pseudomonas aeruginosa Piperacillin + Tazobactam <=8: Susceptible Pseudomonas aeruginosa Tobramycin >8: Resistant Performing Organization Address [facility] Phone Number [facility] [address] [place] [address] [phone] [place] Urinalysis w/Microscopic + Reflex to Culture (06/12/2018 2:36 PM CDT)Only the most recent of2 resultswithin the time period is included. Color, UA Taylors [facility] Clarity, UA Hazy [facility] Specific [place], UA 1.013 1.001 - 1.035 [facility] pH, UA 6.0 5.0 - 8.0 [facility] Protein, UA 100 mg/dL (A) Negative [facility] Glucose, UA Negative Negative [facility] Ketones, UA Trace (A) Negative [facility] Bilirubin, UA Negative Negative [facility] Blood, UA Large (A) Negative [facility] Nitrite, UA Negative Negative [facility] Leukocytes, UA Large (A) Negative [facility] Urobilinogen, UA 0.2 0.2 - 1.0 mg/dL [facility] RBC, UA >182 /HPF [facility] WBC, UA 68 /HPF [facility] Mucus Rare [facility] Specimen Source [facility] Specimen Urine - Urine, Nephrostomy Performing Organization Address [facility]/Zipcode Phone Number [facility] [address] [place] [phone] CENTER IR Percutaneous Nephrostomy - Ext. Drain Placement (06/12/2018 11:48 AM CDT) Narrative Performed At FINAL REPORT [facility] Fluoroscopic and ultrasound guided right nephroureterostomy tube placement, 06/12/2018. Clinical History: Obstructing stone at the junction of the right distal ureter and ileoconduit with hydronephrosis and urosepsis. Patient has a history of spina bifida/caudal regression. Modality: Sonography and fluoroscopy County Bailiff:Faisal Felix MD. Multimedia Manager:None. Sedation: General anesthesia provided by the anesthesia service Estimated Blood Loss:Less than 5 cc. Specimen: None. Fluoroscopy Time: 3.6 min. Reference Air Kerma (Ka, r): 21.5 mGy. Technique: Informed written consent was obtained. Discussion of risks, benefits, and alternatives were made with the patient. The patient expressed understanding and agreed to proceed.A universal timeout was performed prior to starting the procedure.All elements maximal sterile barrier technique was utilized for this procedure, including utilization of sterile scrub solution for skin prep, a large sterile sheet to cover the areas of the patient that were not prepped, and hand hygiene, mask, head covering, and sterile gown for performing radiologist and scrub technologist. Local anesthesia was achieved with 1% lidocaine, a mildly dilated right upper pole calyx was visualized with ultrasound. Using ultrasound guidance, a 21-gauge Accustick needle was advanced into the calyx. Contrast injection confirmed placement within the calyx. The collecting system was opacified. A 2nd 21-gauge needle was used to access the midpole under fluoroscopic guidance. Contrast injection confirmed positioning of the midpole access. A 0.018 inch wire was advanced through the needle a curled within the pelvis.The Accustick sheath was advanced over the wire. The microwire was then removed. A Berenstein catheter and Glidewire were then used to navigate down the right ureter, past the stone, and out the ileostomy and into the ostomy bag. The Glidewire was then removed and an Amplatz superstiff wire was advanced through the Berenstein catheter and into the ostomy bag. The maximum catheter was then removed. The tract was dilated to 8 Cymro. An 8.5 Cymro by 28 cm nephroureterostomy catheter was then advanced over the guidewire. The distal pigtail was formed within the ostomy bag in the proximal pigtails formed within the right renal pelvis. The catheter was then secured onto the skin with 2-0 silk. The patient tolerated the procedure well, without immediate complications. The patient's vital signs remained stable throughout the procedure. Impression: Successful and uncomplicated fluoroscopic and ultrasound guided right nephroureterostomy tube placement. Signed: Faisal Felix MD Report Verified Date/Time:06/12/2018 13:43:17 Reading Location: [place] [id number] Angio Body Reading Room Procedure Note Interface, External Ris In - 06/12/2018 1:45 PM CDT FINAL REPORT Fluoroscopic and ultrasound guided right nephroureterostomy tube placement, 06/12/2018. Clinical History: Obstructing stone at the junction of the right distal ureter and ileoconduit with hydronephrosis and urosepsis. Patient has a history of spina bifida/caudal regression. Modality: Sonography and fluoroscopy County Bailiff: Faisal Felix MD. Multimedia Manager: None. Sedation: General anesthesia provided by the anesthesia service Estimated Blood Loss: Less than 5 cc. Specimen: None. Fluoroscopy Time: 3.6 min. Reference Air Kerma (Ka, r): 21.5 mGy. Technique: Informed written consent was obtained. Discussion of risks, benefits, and alternatives were made with the patient. The patient expressed understanding and agreed to proceed. A universal timeout was performed prior to starting the procedure. All elements maximal sterile barrier technique was utilized for this procedure, including utilization of sterile scrub solution for skin prep, a large sterile sheet to cover the areas of the patient that were not prepped, and hand hygiene, mask, head covering, and sterile gown for performing radiologist and scrub technologist. Local anesthesia was achieved with 1% lidocaine, a mildly dilated right upper pole calyx was visualized with ultrasound. Using ultrasound guidance, a 21-gauge Accustick needle was advanced into the calyx. Contrast injection confirmed placement within the calyx. The collecting system was opacified. A 2nd 21-gauge needle was used to access the midpole under fluoroscopic guidance. Contrast injection confirmed positioning of the midpole access. A 0.018 inch wire was advanced through the needle a curled within the pelvis.The Accustick sheath was advanced over the wire. The microwire was then removed. A Berenstein catheter and Glidewire were then used to navigate down the right ureter, past the stone, and out the ileostomy and into the ostomy bag. The Glidewire was then removed and an Amplatz superstiff wire was advanced through the Berenstein catheter and into the ostomy bag. The maximum catheter was then removed. The tract was dilated to 8 Cymro. An 8.5 Cymro by 28 cm nephroureterostomy catheter was then advanced over the guidewire. The distal pigtail was formed within the ostomy bag in the proximal pigtails formed within the right renal pelvis. The catheter was then secured onto the skin with 2-0 silk. The patient tolerated the procedure well, without immediate complications. The patient's vital signs remained stable throughout the procedure. Impression: Successful and uncomplicated fluoroscopic and ultrasound guided right nephroureterostomy tube placement. Signed: Faisal Felix MD Report Verified Date/Time: 06/12/2018 13:43:17 Reading Location: [facility] P048 Angio Body Reading Room Performing Organization Address City/State/Zipcode Phone Number GE RIS Body fluid culture + gram stain (06/12/2018 11:40 AM CDT) Result ENTEROBACTER CLOACAE COMPLEX (A) [facility] Comment: MEDICAL CENTER ESBL Positive AmpC Positive Result 2+ Enterococcus species (A) [facility] Result BOWEN PARAPSILOSIS (A) [facility] Gram Stain Result No organisms seen [facility] Gram Stain Result 1+ White blood cells seen [facility] Specimen Urine - Urine, Surgically Obtained Organism Antibiotic Method Susceptibility Enterobacter cloacae complex Amikacin <=2: Susceptible Enterobacter cloacae complex Aztreonam >=64: Resistant Enterobacter cloacae complex Cefepime Resistant Comment: This is a corrected result. Previous result was Resistant (8) on 06/16/2018 at 1549 CDT Enterobacter cloacae complex Cefoxitin >=64: Resistant Enterobacter cloacae complex Ceftazidime >=64: Resistant Enterobacter cloacae complex Ceftriaxone >=64: Resistant Enterobacter cloacae complex Ertapenem >=8: Resistant Enterobacter cloacae complex Gentamicin 8: Resistant Enterobacter cloacae complex Levofloxacin >=8: Resistant Enterobacter cloacae complex Meropenem 8: Resistant Enterobacter cloacae complex Piperacillin + Tazobactam >=128: Resistant Enterobacter cloacae complex Tetracycline 8: Resistant Comment: This is a corrected result. Previous result was Resistant (>=16) on 06/16/2018 at 1549 CDT Enterobacter cloacae complex Tobramycin 8: Resistant Enterobacter cloacae complex Trimethoprim + Sulfamethoxazole <=20: Susceptible Enterococcus species Ampicillin >=32: Resistant Enterococcus species Linezolid 2: Susceptible Enterococcus species Vancomycin <=0.5: Susceptible Performing Organization Address City/[facility] Phone Number [address] [address] [phone] CENTER CBC (Hemogram only) (06/12/2018 8:07 AM CDT) WBC 8.5 3.5 - 10.5 K/L [facility] RBC 4.23 3.93 - 5.22 M/L [facility] Hemoglobin 9.1 (L) 11.2 - 15.7 GM/DL [facility] Hematocrit 31.4 (L) 34.1 - 44.9 % [facility] MCV 74.2 (L) 79.4 - 94.8 fL [facility] MCH 21.5 (L) 25.6 - 32.2 pg [facility] MCHC 29.0 (L) 32.2 - 35.5 GM/DL [facility] RDW 20.4 (H) 11.7 - 14.4 % [facility] Platelets Comment: Platelet clumps 150 - 450 K/CU MM [facility] present, unable to report MEDICAL CENTER true platelet. Recommend recollect using EDTA tube and blue (Citrate) tube. spoke to RN ID:[id number] nRBC 0 0 - 0 /100 WBC [facility] Specimen Blood Performing Organization Address City/[facility]/Zipcode Phone Number [facility] [address] [place] [address] CENTER PT/aPTT (06/12/2018 6:07 AM CDT) Protime 14.4 11.7 - 14.7 seconds [facility] INR 1.1 <=5.9 [facility] PTT 30.8 22.5 - 36.0 seconds [facility] Specimen Blood Narrative Performed At [facility] RECOMMENDED COUMADIN/WARFARIN INR THERAPY RANGES STANDARD DOSE: 2.0 - 3.0 Includes: PROPHYLAXIS for venous thrombosis, systemic embolization; TREATMENT for venous thrombosis and/or pulmonary embolus. HIGH RISK: Target INR is 2.5-3.5 for patients with mechanical heart valves. Performing Organization Address [facility] Phone Number [address] [address] [place] Screen, urine (06/11/2018 11:20 AM CDT) Preg Test, Ur Negative [facility] Specimen Urine - Urine, Urostomy Performing Organization Address [facility] [place] Phone Number [address] [address] [place] Blood culture #2 (06/11/2018 4:55 AM CDT)Only the most recent of2 resultswithin the time period is included. Result No growth in 5 days [facility] Specimen Blood - Arm, Right Performing Organization Address [facility] Phone Number [place] [id number] [place] [address] [phone] [place] Lactic acid, venous, whole blood (06/11/2018 4:54 AM CDT) Lactate, Venous 0.8 0.5 - 2.2 mmol/L [facility] Specimen Blood Narrative Performed At [facility] Effective 01/01/2016: Units/Reference Range Change New: 0.5-2.2 mmol/LPrevious: 5-20 mg/dL Performing Organization Address [facility]/State/Zipcode Phone Number [address] [address] CENTER aPTT (06/11/2018 4:54 AM CDT) PTT 35.9 22.5 - 36.0 seconds [facility] Specimen Blood Performing Organization Address [facility] Phone Number [address] [address] CENTER Prothrombin time/INR (06/11/2018 4:54 AM CDT) Protime 16.4 (H) 11.7 - 14.7 seconds [facility] INR 1.3 <=5.9 [facility] Specimen Blood Narrative Performed At [facility] RECOMMENDED COUMADIN/WARFARIN INR THERAPY RANGES STANDARD DOSE: 2.0 - 3.0 Includes: PROPHYLAXIS for venous thrombosis, systemic embolization; TREATMENT for venous thrombosis and/or pulmonary embolus. HIGH RISK: Target INR is 2.5-3.5 for patients with mechanical heart valves. Performing Organization Address [facility] [place] Phone Number [address] [address] [phone] [place] Lactic acid, arterial, whole blood (06/11/2018 1:02 AM CDT) Lactate, Art 0.6Comment: Specimen 0.5 - 2.2 mmol/L [facility] slightly hemolyzed [facility] [place] Specimen Blood, Arterial - Arm, Right Narrative Performed At [facility] Effective 01/01/2016: Units/Reference Range Change New: 0.5-2.2 mmol/LPrevious: 5-20 mg/dL Performing Organization Address [facility]/Zipcode Phone Number [address] [address] CENTER Phosphorus (06/11/2018 1:02 AM CDT) Phosphorus 3.0Comment: Specimen 2.3 - 4.7 mg/dL [facility] Specimen Blood - Arm, Right Performing Organization Address City/[facility]/Zipcode Phone Number [facility] [address] [place] [address] CENTER Magnesium (06/11/2018 1:02 AM CDT) Magnesium 2.0Comment: Specimen 1.6 - 2.6 mg/dL [facility] hemolyzed [facility] Specimen Blood - Arm, Right Performing Organization Address [facility] Phone Number [facility] [address] [place] [address] [phone] [place] Comprehensive metabolic panel (06/11/2018 1:02 AM CDT) Protein, Total 7.3Comment: Specimen 6.0 - 8.3 gm/dL [facility] hemolyzed [facility] Albumin 3.3 (L)Comment: Specimen 3.5 - 5.0 g/dL [facility] hemolyzed [facility] Alkaline Phosphatase 56 40 - 150 U/L [facility] Total Bilirubin 0.4Comment: Specimen 0.2 - 1.2 mg/dL [facility] hemolyzed [facility] Sodium 133 (L) 136 - 145 meq/L [facility] Potassium 4.5Comment: Specimen 3.5 - 5.1 meq/L [facility] hemolyzed [facility] Chloride 108 (H) 98 - 107 meq/L [facility] CO2 15 (L) 22 - 29 meq/L [facility] BUN 12 7 - 21 mg/dL [facility] Creatinine 0.61Comment: Specimen 0.57 - 1.25 mg/dL [facility] hemolyzed [facility] Glucose 92 70 - 105 mg/dL [facility] Calcium 8.3 (L) 8.4 - 10.2 mg/dL [facility] AST 35 (H)Comment: Specimen 5 - 34 U/L [facility] moderately hemolyzed [facility] ALT 14Comment: Specimen 6 - 55 U/L [facility] moderately hemolyzed [facility] EGFR 133Comment: ESTIMATED mL/min/1.73 sq m [facility] GFR IS NOT ACCURATE [facility] CREATININE CLEARANCE IN PREDICTING GLOMERULAR FILTRATION RATE. ESTIMATED GFR IS NOT APPLICABLE FOR DIALYSIS PATIENTS. Specimen Blood - Arm, Right Performing Organization Address City/State/Zipcode Phone Number [facility] [address] [place] [address] [phone] CENTER Urinalysis w/ Microscopic (06/10/2018 11:37 PM CDT) Color, UA Yellow [facility] Clarity, UA Hazy [facility] Specific [place], UA 1.012 1.001 - 1.035 [facility] pH, UA 8.0 5.0 - 8.0 [facility] Protein, UA 50 mg/dL (A) Negative [facility] Glucose, UA Negative Negative [facility] Ketones, UA Negative Negative [facility] Bilirubin, UA Negative Negative [facility] Blood, UA Moderate (A) Negative [facility] Nitrite, UA Positive (A) Negative [facility] Leukocytes, UA Large (A) Negative [facility] Urobilinogen, UA 0.2 0.2 - 1.0 mg/dL [facility] RBC, UA 6 /HPF [facility] WBC, UA 10 /HPF [facility] Bacteria, UA Many [facility] Mucus Many [facility] Crystals, Urine Occasional [facility] Specimen Source Urine, Urostomy [facility] Specimen Urine - Urine, Urostomy Performing Organization Address City/State/Zipcode Phone Number [facility] [address] [place], [place] [phone] CENTER after 10/19/2017 Insurance Payer Benefit Plan / Group Subscriber ID Type Phone Address MEDICARE MEDICARE A B xxxxxxxxxxx Medicare MEDICAID - MEDICAID MEDICAID [employer] xxxxxxxxx Medicaid MGD CARE Non-Contracted Advance Directives For more information, please contact:GIFTY [facility] [place], [place] [phone] Code Status Date Activated Date Inactivated Comments Full Code 06/24/2018 12:08 PM This code status was determined by: Patient Full Code 06/10/2018 10:09 PM 06/13/2018 4:34 PM This code status was determined by: Patient
--- OUTSIDE RECORDS SUMMARY | 2018-10-20 15:20 | XMS REPORT | Continuity of Care Document ---
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 [facility] [place] Intractable nausea Active 09/30/19 Finding 10/08/[address] [facility] and vomiting 18 [facility] [place] Spina bifida Active 09/30/19 Finding 10/08/[address] [facility] [facility] [place] Chronic urinary Active 09/30/19 Finding 10/08/[address] [facility] tract infection 18 [facility] [place] Intractable Active 09/30/19 Finding 10/08/[address] [facility] vomiting with 18 [facility] - nausea [place] Osteomyelitis of Active 03/07/20 Finding 10/08/[address] [facility] left foot 15 [facility] [place] Urinary tract Active 06/26/20 Finding 10/08/[address] [facility] [address] infectious disease 14 [facility] [place] Constipation Active Finding 10/08/[address] [facility] [facility] [place] Abdominal pain Active Finding 10/08/[address] [facility] [facility] [place] UTI Active Finding 10/08/[address] [facility] [facility] [place] H/O ureterostomy Active Finding 10/08/[address] [facility] [facility] [place] History of blood Active Finding 10/08/[address] [facility] [address] clots [facility] [place] Ileostomy in place Active Finding 10/08/[address] [facility] [facility] [place] Anemia Active Finding 10/08/[address] [facility] [facility] [place] Chronic Active Finding 10/08/[address] [facility] [address] anticoagulation [facility] [place] Depression Active Finding 10/08/[address] [facility] [facility] [place] Pleural effusion Active Finding 10/08/[address] [facility] [facility] [place] History of Active Finding 10/08/[address] [facility] [address] osteomyelitis [facility] [place] Hypertension Active Finding 10/08/[address] [facility] [facility] [place] Constipation Active Finding 10/08/2017 [facility] [place] Asthma Active Finding 10/08/2017 [facility] [place] Hypokalemia Active Finding 10/08/2017 [facility] [place] Hypomagnesemia Active Finding 10/08/2017 [facility] [place] Urinary tract Active Finding 10/08/2017 [facility] St[facility] infection [facility] [place] skilled nursing current Active Finding 10/08/2017 [facility] use of [facility] - anticoagulant [place] therapy History of Active Finding 10/08/2017 [facility]. ureterostomy [facility] [place] Ileostomy present Active Finding 10/08/2017 [facility]. [facility] [place] Medications Medication Details Route Status Patient Ordering Order Source Instructions Provider Date Ferrous Sulfate TWICE DAILY Active Prezas [facility] St[facility] 2018 [facility] [place] Metoprolol DAILY AT Active Prezas [facility]. Tartrate 0600 2017 [facility] [place] Magnesium Oxide TWICE DAILY Active Prezas [facility] St. 2018 [facility] [place] Amlodipine DAILY Active Prezas [facility] St. 2018 [facility] [place] Rivaroxaban DAILY Active Prezas [facility] St. 2018 [facility] [place] Sertraline DAILY Active Prezas [facility] St[facility] 2018 [facility] [place] Pantoprazole DAILY Active Prezas [facility] St. 2018 [facility] [place] Rivaroxaban DAILY Active [facility] St. 2018 [facility] [place] Lorazepam TWICE DAILY Active [facility] 03/16/ [facility] St. PRN For 2015 [facility] - Anxiety [place] Ciprofloxacin Hcl DAILY Active Earl03/16/ [facility] St. 2015 [facility] [place] Hydrocodone Q6H PRN For Active Earl 03/16/ [facility] St. 10/Apap 325 Pain 2015 [facility] [place] Docusate TWICE DAILY Active Earl03/11/ [facility] St. 2015 [facility] [place] Yash TWICE DAILY Active Earl 03/11/ [facility] St. 2015 [facility] [place] Fluconazole DAILY PRN Active [facility] St. For YEAST 2015 [facility] - INFECTION [place] Nitrofurantoin TWICE DAILY Active St. Macrocrystal 2014 [facility] [place] Zolpidem Tartrate AT BEDTIME Active St. PRN For 2014 [facility] - Sleep [place] Promethazine Tab EVERY 6 Active Mendieta 06/26/ [facility] HOURS 2014 [facility] NEEDED PRN [place] For Nausea / Vomiting Acetaminophen PRN For Inactive St. Pain 2014 [facility] [place] Aspirin DAILY Active St[facility] 2014 [facility] [place] Amlodipine DAILY Active [facility] 2014 [facility] [place] Cefdinir TWICE DAILY Active [facility] 2013 [facility] [place] Polyethylene Mon,Wed,Fri Active [facility] Glycol 3350 day PRN For 2012 [facility] - Diarrhea [place] Mupirocin Oint TWICE DAILY Active St. NEEDED 2013 [facility] - PRN For [place] affected areas Diphenhydramine EVERY [address] [facility] HOURS 2013 [facility] - NEEDED PRN [place] For Allergies Ibuprofen EVERY [address] [facility] HOURS 2013 [facility] - NEEDED PRN [place] For Pain Levalbuterol EVERY [address] Tartrate HOURS 2013 [facility] - NEEDED PRN [place] For Shortness Of Breath Amlodipine DAILY Active St. 2013 [facility] [place] Promethazine Hcl EVERY [address] HOURS 2013 [facility] - NEEDED PRN [place] For nausea Nut Tx, DAILY Active St. Lact-Reduced, 2013 [facility] - Iron [place] Omeprazole DAILY Active [facility] 2013 [facility] [place] Zolpidem Tartrate AT BEDTIME Active [facility] 2013 [facility] [place] Sertraline DAILY Active St. 2013 [facility] [place] Allergies, Adverse Reactions, Alerts Substance Category Reaction Severity Reaction Status Date Comments Source type Reported morphine Itching Moderate Allergy to Active [facility] Substance 4 [facility] [place] Latex, Itching/H Allergy to Active [facility] Natural tristan/Rash Substance 5 [facility] - Rubber [place] vancomycin Itching/H Mild Allergy to Active [facility] tristan/Rash Substance 8 [facility] [place] Immunizations Immunization Date Given Site Status Last Comments Source Updated Pneumovax 11/10/2012 completed [facility] [place] Results Order Name Results Value Reference Date Interpretation Comments Source Range Laboratory Sodium Level 138 mEq/L 135 - 145 10/08 [facility] St. Studies /2018 [facility] [place] Laboratory Potassium 3.3 mEq/L 3.6 - 5.0 10/08 [facility] St. Studies Level /2018 [facility] [place] Laboratory Magnesium 1.6 mg/dL 1.8 - 2.5 10/08 [facility]. Studies Level /2017 [facility] [place] Laboratory Glucose Level 91 mg/dL 65 - 120 10/08 [facility]. Studies /2017 [facility] [place] Laboratory Estimat null 90 10/08 [facility]. Studies Glomerular /2017 [facility] - Filtration [place] Rate Laboratory Creatinine 0.42 mg/dL 0.44 - 10/08 [facility]. Studies 1.00 [facility] [place] Laboratory Chloride 104 mEq/L 101 - 111 10/08 [facility]. Studies Level /2018 [facility] [place] Laboratory Carbon 24 mEq/L 21 - 31 10/08 [facility]. Studies Dioxide Level /2017 [facility] [place] Laboratory Calcium Level 8.6 mg/dL 8.5 - 10.5 10/08 [facility] St. Studies /2018 [facility] [place] Laboratory Blood Urea 9 mg/dL 6 - 20 10/08 [facility]. Studies Nitrogen /2017 [facility] [place] Laboratory White Blood 8.9 K/uL 4.3 - 10.9 10/08 [facility]. Studies Count /2018 [facility] [place] Laboratory Red Cell 17.7 % 12.1 - 02 [facility]. Studies Distribution 15.2 [facility] - Width [place] Laboratory Red Blood 4.41 M/uL 3.86 - 02 [facility]. Studies Count 4.86 /2017 [facility] [place] Laboratory Platelet 443 K/uL 152 - 406 10/08 [facility]. Studies Count /2018 [facility] [place] Laboratory Neutrophils % 57.5 % 41.7 - 02 [facility] St. Studies 73.7 /2017 [facility] [place] Laboratory Monocytes % 12.3 % 3.3 - 12.3 10/08 [facility] St. Studies /2017 [facility] [place] Laboratory Mean Platelet 6.6 fL 7.6 - 11.3 10/08 [facility] St. Studies Volume /2017 [facility] [place] Laboratory Mean 73.1 fL 80 - 100 10/08 [facility] St. Studies Corpuscular /2017 [facility] - Volume [place] Laboratory Mean 31.5 g/dL 32.0 - 02 [facility] St. Studies Corpuscular 36.0 /2017 [facility] - Hemoglobin [place] Concent Laboratory Mean 23.0 pg 27.0 - 02 [facility]. Studies Corpuscular 35.0 [facility] - Hemoglobin [place] Laboratory Lymphocytes % 26.3 % 15.3 - 02 [facility] St. Studies 44.8 /2017 [facility] [place] Laboratory Hemoglobin 10.1 g/dL 12.0 - 10/08 [facility] St. Studies 15.0 [facility] [place] Laboratory Hematocrit 32.2 % 36.0 - 02 [facility] St. Studies 45.0 [facility] [place] Laboratory Eosinophils % 2.7 % 0 - 4.4 10/08 [facility] St. Studies [facility] [place] Laboratory Basophils % 1.2 % 0 - 1.3 10/08 [facility] St. Studies [facility] [place] Laboratory Absolute 5.1 K/uL 1.8 - 8.0 10/08 [facility]. Studies Neutrophil [facility] [place] Laboratory Absolute 1.1 K/uL 0.1 - 1.3 10/08 [facility]. Studies Monocytes [facility] - (CBC) [place] Laboratory Absolute 2.3 K/uL 0.7 - 4.9 10/08 [facility] St. Studies Lymphocytes [facility] - (CBC) [place] Laboratory Absolute 0.2 K/uL 0 - 0.5 10/08 [facility] St. Studies Eosinophils [facility] - (CBC) [place] Laboratory Absolute 0.1 K/uL 0 - 0.5 10/08 [facility]. Studies Basophils [facility] - (CBC) [place] Laboratory Urine Yeast Urine Yeast 10/07 [facility] St. Studies [facility] - [place] Laboratory Urine WBC null 10/07 [facility] St[facility] Studies [facility] [place] Laboratory Urine null 02/[address] Studies Squamous /2017 [facility] - Epithelial [place] Cells Laboratory Urine RBC Urine RBC 10/07 St[facility] Studies /2017 [facility] [place] Laboratory Urine Culture Urine 10/07 St[facility] Studies Reflexed Culture /2017 [facility] - Reflexed [place] Laboratory Urine null 10/07 St[facility] Studies Bacteria /2017 [facility] [place] Laboratory Urine Urine 10/07 St[facility] Studies Amorphous Amorphous /2017 [facility] - Sediment Sediment [place] Laboratory Urine pH 6.0 10/07 St[facility] Studies /2017 [facility] [place] Laboratory Urine 1.0 mg/dL 10/07 St[facility] Studies Urobilinogen /2017 [facility] [place] Laboratory Urine Total Urine Total 10/07 St[facility] Studies Protein Protein /2017 [facility] [place] Laboratory Urine 1.015 10/07 St[facility] Studies Specific /2017 [facility] - [place] Laboratory Urine Nitrite Urine 10/07 St[facility] Studies Nitrite /2017 [facility] [place] Laboratory Urine Urine 10/07 St[facility] Studies Leukocyte Leukocyte /2017 [facility] - Esterase Esterase [place] Laboratory Urine Ketones Urine 10/07 St[facility] Studies Ketones /2017 [facility] [place] Laboratory Urine Glucose Urine 10/07 St[facility] Studies Glucose [facility] [place] Laboratory Urine Color Urine Color 10/07 St[facility] Studies /2017 [facility] [place] Laboratory Urine Blood Urine Blood 10/07 St[facility] Studies /2017 [facility] [place] Laboratory Urine Urine 10/07 St[facility] Studies Bilirubin Bilirubin /2017 [facility] [place] Laboratory Urine Urine 10/07 St[facility] Studies Appearance Appearance /2017 [facility] [place] Laboratory Vitamin B12 1155 pg/ml 180 - 914 10/07 St[facility] Studies Level /2017 [facility] [place] Laboratory Transferrin % 9.2 % 20.0 - 10/07 St[facility] Studies Saturation 50.0 [facility] [place] Laboratory Transferrin 240 mg/dL 192 - 382 10/07 St. Studies /2018 [facility] [place] Laboratory Total Iron 336 ug/dL 250 - 460 10/07 St[facility] Studies Binding /2017 [facility] - Capacity [place] Laboratory Iron Level 31.0 ug/dL 28 - 170 10/07 St. Studies /2017 [facility] [place] Laboratory Ferritin 10.3 ng/ml 11.0 - 02 [facility] Studies 306.8 /2017 [facility] Laboratory Segmented 67 % 40 - 80 10/05 [facility] Studies Neutrophils /2017 [facility] [place] [facility] Monocytes 1 % 0 - 10 10/05 [facility]. Studies [facility] - [place] Laboratory Lymphocytes 29 % 15 - 42 10/05 [facility]. Studies /2017 [facility] [place] Laboratory Eosinophils 3 % 0 - 3 10/05 [facility]. Studies [facility] [place] Laboratory Clumped Clumped 10/05 [facility] Studies Platelets Platelets [facility] Blood Blood 10/05 [facility] Studies Morphology Morphology [facility] [facility] - Comment Comment [place] Laboratory Urine Urine 10/02 [facility] Studies Phencyclidine Phencyclidi /2017 [facility] - Screen ne Screen [place] Laboratory Urine Urine 10/02 [facility] Studies Barbiturates Barbiturate /2017 [facility] - Screen s Screen [place] Laboratory Ur Ur 10/02 [facility] Studies Tetrahydrocan Tetrahydroc [facility] - nabinol (THC) annabinol [place] Scrn (THC) Scrn Laboratory Oxycodone Oxycodone 10/02 [facility] Studies Screen Screen /2017 [facility] [place] [facility] Opiates Opiates 10/02 [facility] Studies Screen Screen /2017 [facility] [place] [facility] MDMA MDMA 10/02 [facility] Studies (Ecstasy) (Ecstasy) [facility] - Screen Screen [place] Laboratory Cocaine Cocaine 10/02 [facility] Studies Screen Screen /2017 [facility] [place] Laboratory Benzodiazepin Benzodiazep 10/02 [facility] Studies es Screen brian Screen [facility] [place] Laboratory Amphetamines Amphetamine 10/02 [facility] Studies Screen s Screen /2017 [facility] [place] [facility] Total 0.7 mg/dL 0.3 - 1.2 10/01 [facility] Studies Bilirubin [facility] [place] [facility] Serum Total 7.4 g/dL 6.0 - 8.3 10/01 [facility] Studies Protein /2017 [facility] [place] Laboratory Globulin 3.6 g/dL 2.3 - 3.5 10/01 [facility] Studies /2017 [facility] [place] Laboratory Aspartate 27 IU/L 10 - 42 10/[address] Studies Amino Transf [facility] - (AST/SGOT) [place] Laboratory Alkaline 42 IU/L 42 - 121 10/01 St[facility] Studies Phosphatase [facility] - [place] Laboratory Albumin/Globu 1.1 1.1 - 1.8 10/[address] Studies donald Ratio /2017 [facility] [place] Laboratory Albumin 3.8 g/dL 3.2 - 5.5 10/[address] Studies /2017 [facility] [place] Laboratory Alanine 17 IU/L 10 - 60 10/01 [facility] St[facility] Studies Aminotransfer [facility] - ase [place] (ALT/SGPT) Laboratory Urine Yeast Urine Yeast 09/30 St. Studies (Budding) (Budding) [facility] [place] Laboratory Urine Uric Urine Uric 09/30 St[facility] Studies Acid Crystals Acid [facility] - Crystals [place] Laboratory Direct 0.2 mg/dL 0 - 0.2 09/29 St[facility] Studies Bilirubin [facility] - [place] Laboratory Lipase 28 U/L 22 - 51 09/[address] Studies [facility] [place] Microbiolog Enterobacter Enterobacte 09/[address] [facility] Studies Cloacae r Cloacae /2017 [facility] [place] Microbiolog Enterococcus Enterococcu 09/[address] y Studies Faecalis s Faecalis [facility] [place] Microbiolog Pseudomonas Pseudomonas 09/28 St[facility] y Studies Aeruginosa Aeruginosa [facility] [place] Laboratory Urine Urine 09/23 St[facility] Studies [facility] - Test Test [place] Microbiolog Enterococcus Enterococcu 08/31 St. y Studies Faecalis s Faecalis /2017 [facility] [place] Microbiolog Klebsiella Klebsiella 08/31 St[facility] y Studies Oxytoca Oxytoca [facility] - [place] Laboratory Ovalocytes Ovalocytes 08/[address] Studies [facility] - [place] Laboratory Anisocytosis Anisocytosi 08/28 St[facility] Studies s [facility] - [place] Laboratory B-Type 10 pg/ml 08/[address] Studies Natriuretic [facility] - Peptide [place] Laboratory Creatine 0.7 ng/ml 0.3 - 4.0 08/28 St[facility] Studies Kinase MB [facility] [place] Laboratory Creatine 30 IU/L 22 - 269 08/28 [facility] St. Studies Kinase [facility] [place] Laboratory Rapid null 08/28 [facility] St. Studies Troponin I /2016 [facility] [place] Laboratory Prothrombin 13.7 9.5 - 12.5 08/28 [facility] St. Studies Time SECONDS [facility] - [place] Laboratory INR 1.16 08/28 [facility] St. Studies International /2016 [facility] - Normalized [place] Ratio Laboratory Activated 26.6 24.3 - 08/28 [facility] St. Studies Partial SECONDS 36.9 [facility] - Thromboplast [place] Time Laboratory Lactic Acid 7.5 mg/dL 4.5 - 19.8 08/28 [facility] St. Studies Level /2016 [facility] [place] Microbiolog Klebsiella Klebsiella 07/18 [facility] St[facility] y Studies Pneumoniae Pneumoniae [facility] - [place] Microbiolog Enterococcus Enterococcu 07/18 [facility] St[facility] y Studies Faecalis s Faecalis [facility] [place] Laboratory Urine Triple Urine 07/11 [facility] St. Studies Phosphate Triple [facility] - Crystals Phosphate [place] Crystals Laboratory Amylase Level 170 U/L 28 - 100 07/11 [facility] St. Studies [facility] - [place] Vital Signs Vital Sign Value Date Comments Source Height 60 10/08/2017 [facility]. [place] - [place] Weight 158 10/08/2017 [facility]. [facility] [place] Temperature Oral (F) 97.1 F 10/08/2017 [facility] St[facility] [place] Heart Rate 102 10/08/2017 [facility]. [facility] [place] Respitory Rate 17 10/08/2017 [facility] [place] Systolic (mm Hg) 125 10/08/2017 [facility] [place] Diastolic (mm Hg) 78 10/08/2017 [facility] [place] Encounters Location Location Encounter Encounter Reason Attending ADM DC Status Source Details Type Number For Provider Date Date Visit [facility] St[facility] Departed [id number] 07/11 07/11 [facility] [place] [facility] St. Departed [id number] 07/30 07/30 [facility] [place] [facility] St. Departed [id number] 08/28 08/[address] [facility] [place] [facility] St[facility] Departed [id number] 09/23 09/23 [facility] [place] [facility] [id number] 10/01 10/[address] [facility] [place] Procedures Procedure Code Date Perfomer Comments Source [place] Count [id number] [address] [facility] [place] [id number] 2017 [facility] [place] Stone Protocol [id number] 09/29/2017 [facility] [place] Count [id number] 09/23/2017 [facility] [place] [id number] 09/23/2017 [facility] [place] Culture & [id number] 09/23/2017 [facility] - Sensitivity [place] Abdomen & Pelvis [id number] 09/23/2017 [facility] - W Contrast [place] Anaerobic Blood [id number] 08/28/2017 [facility] - Culture [place] Aerobic Blood [id number] 08/28/2017 [facility] - Culture [place] Count [id number] 08/28/2017 [facility] [place] [id number] 08/28/2017 [facility] [place] Chest Single View [id number] 08/28/2017 [facility] [place] Influenza Type B 08/28/2017 [facility] - Antigen Screen [place] Influenza Type A 08/28/2017 [facility] - Antigen Screen [place] Influenza Type B 07/30/2017 [facility] - Antigen Screen [place] Influenza Type A 07/30/2017 [facility] - Antigen Screen [place] Count [id number] 07/11/2017 [facility] [place] [id number] 07/11/2017 [facility] [place]
--- OUTSIDE RECORDS SUMMARY | 2018-10-20 15:21 | XMS REPORT ---
:1980 [facility] [address] Robertson [address] [place] [id number] Care Team Providers Name Role Phone DILMA LOMBARDI Unavailable Unavailable DANGELO VERMA MABEL Unavailable Unavailable Problems This patient has no known problems. Allergies, Adverse Reactions, Alerts This patient has no known allergies or adverse reactions. Medications This patient has no known medications. Results Test Description Test Time Test Comments Text Results Atomic Results Result Comments SURGICALLY OBTAINED CULTURE + GRAM STAIN 2018-07-03 12:12:00 Test Item Value Reference Range Comments CULTURE (BEAKER) (test ENTEROCOCCUS SPECIES 2+ Enterococcus vlhs=1052) species Ampicillin (test code=26) Linezolid (test code=40) Tetracycline (test code=2) Vancomycin (test code=13) CULTURE (BEAKER) (test 1+ Katie albicans xhuw=5323) CULTURE (BEAKER) (test KLEBSIELLA 1+ Klebsiella qyyh=1542) PNEUMONIAE SSP pneumoniae ssp PNEUMONIAE pneumoniae Amikacin (test code=1) Ampicillin + Sulbactam (test code=6) Aztreonam (test code=32) Cefepime (test code=51) Cefoxitin (test code=68) Ceftazidime (test code=27) Ceftriaxone (test code=52) Ertapenem (test code=38) Gentamicin (test code=18) Levofloxacin (test code=22) Meropenem (test code=34) Nitrofurantoin (test code=23) Piperacillin + Tazobactam (test code=29) Tetracycline (test code=2) Tobramycin (test code=25) Trimethoprim + Sulfamethoxazole (test code=47) CULTURE (BEAKER) (test VANCOMYCIN RESISTANT 1+ Vancomycin cluv=8910) ENTEROCOCCUS SPECIES resistant Enterococcus species Ampicillin (test code=26) Linezolid (test code=40) Vancomycin (test code=13) Daptomycin (test Susceptible 0-4 , No code=59) Interpretations Established <0 or >4 ANAEROBIC [id number] 05:31:00 Test Item Value Reference Range Comments CULTURE ([place] Copper[place]) (test dijk=6972) No anaerobes isolated URINE [id number] 11:06:00 Test Item Value Reference Range Comments CULTURE ([place] CopperAKER) (test 20-29,000 col/mL oxxs=1624) Katie parapsilosis CULTURE (BEAKER) (test PSEUDOMONAS 20-29,000 col/mL qojo=5666) AERUGINOSA Pseudomonas aeruginosa Amikacin (test code=1) Susceptible 0-16 , Resistant <0 or >16 Aztreonam (test Susceptible 0-8 , code=32) Resistant <0 or >8 Cefepime (test code=51) Susceptible 0-8 , Resistant <0 or >8 Ceftazidime (test Susceptible 0-8 , code=27) Resistant <0 or >8 Ciprofloxacin (test Susceptible 0-1 , code=7) Resistant <0 or >1 Gentamicin (test Susceptible 0-4 , code=18) Resistant <0 or >4 Levofloxacin (test Susceptible 0-2 , code=22) Resistant <0 or >2 Meropenem (test Susceptible 0-2 , code=34) Resistant <0 or >2 Piperacillin (test Susceptible 0-16 , code=24) Resistant <0 or >16 Piperacillin + Susceptible 0-16 , Tazobactam (test Resistant <0 or >16 code=29) Tobramycin (test Susceptible 0-4 , code=25) Resistant <0 or >4 URINE [id number] 11:03:00 Test Item Value Reference Range Comments CULTURE ([place] CopperAKER) (test ENTEROCOCCUS SPECIES >100,000 col/mL ddcx=2151) Enterococcus species Ampicillin (test code=26) Linezolid (test code=40) Nitrofurantoin (test code=23) Tetracycline (test code=2) Vancomycin (test code=13) CULTURE ([place] CopperAKER) (test ESCHERICHIA COLI 50-59,000 col/mL zcxh=9009) Escherichia coli Amikacin (test code=1) Ampicillin + Sulbactam (test code=6) Aztreonam (test code=32) Cefepime (test code=51) Cefoxitin (test code=68) Ceftazidime (test code=27) Ceftriaxone (test code=52) Ertapenem (test code=38) Gentamicin (test code=18) Levofloxacin (test code=22) Meropenem (test code=34) Nitrofurantoin (test code=23) Piperacillin + Tazobactam (test code=29) Tetracycline (test code=2) Tobramycin (test code=25) Trimethoprim + Sulfamethoxazole (test code=47) CULTURE (BEAKER) (test ENTEROBACTER CLOACAE 50-59,000 col/mL pona=5186) COMPLEX Enterobacter cloacae complex Amikacin (test code=1) Aztreonam (test code=32) Cefepime (test code=51) Cefoxitin (test code=68) Ceftazidime (test code=27) Ceftriaxone (test code=52) Ertapenem (test code=38) Gentamicin (test code=18) Levofloxacin (test code=22) Meropenem (test code=34) Nitrofurantoin (test code=23) Piperacillin + Tazobactam (test code=29) Tetracycline (test code=2) Tobramycin (test code=25) Trimethoprim + Sulfamethoxazole (test code=47) Dr. lopez request for avycaz and zerbaxaCT, [id number] 07:41:00FINAL REPORT INDICATION:37-year-old female status post recent percutaneous right nephroureterostomy tube placement for obstructing right ureteral stone. History of spina bifida and caudal regression. COMPARISON: Right nephroureterostomy tube placement June 12, 2018Abdomen pelvis CT exam June 11, 2018 TECHNIQUE: CT of the Abdomen and Pelvis WITHOUT intravenous contrast. Enteric contrast was not used. The exam was performed according to our department dose-optimization protocol, which includes automated exposure control, adjustments of mA and kV according to patient size.Iterative reconstructions are also sometimes employed. FINDINGS:Right hydroureteronephrosis has resolved after percutaneous nephroureterostomy tube placement. Right kidney and ureter stones are no longer present. Focal parenchymal calcification in the lateral interpolar right kidney again noted. Findings of spina bifida, caudal regression, and right hip dysplasia. Right lower quadrant urostomy and left lower quadrant diverting colostomy again noted. Moderate left pleural effusion is unchanged with apleural catheter, probably a ventriculopleural shunt. Liver, gallbladder, pancreas, spleen, left adrenal gland unremarkable. Right adrenal gland not definitively identified. Vaginal pessary noted. IMPRESSION: Resolved right hydroureteronephrosis and right sided urinary stones. Signed: Zoraida BoydMDReport Verified Date/Time : 06/29/2018 07:41:57 Reading Location: [facility] Diagnostic Imaging Reading Room - [place] [id number] Electronically signed by: ZORAIDA BOYD M.D. on 2017 07:41 AMCBC W/PLT COUNT & AUTO [id number] 07:07:00 Test Item Value Reference Range Comments WHITE BLOOD CELL COUNT 9.2 K/ L 3.5-10.5 (BEAKER) (test kcxd=603) RED BLOOD CELL COUNT (BEAKER) 4.41 M/ L 3.93-5.22 (test kwdv=248) HEMOGLOBIN (BEAKER) (test 10.1 GM/DL 11.2-15.7 tqij=516) HEMATOCRIT (BEAKER) (test 33.7 % 34.1-44.9 rxkr=742) MEAN CORPUSCULAR VOLUME 76.4 fL 79.4-94.8 (BEAKER) (test louh=561) MEAN CORPUSCULAR HEMOGLOBIN 22.9 pg 25.6-32.2 (BEAKER) (test fkxc=875) MEAN CORPUSCULAR HEMOGLOBIN 30.0 GM/DL 32.2-35.5 CONC (BEAKER) (test jatl=027) RED CELL DISTRIBUTION WIDTH 21.2 % 11.7-14.4 (BEAKER) (test invw=427) PLATELET COUNT (BEAKER) (test 51 K/CU MM 150-450 qxws=194) MEAN PLATELET VOLUME (BEAKER) fL 9.4-12.3 Unable to report due to (test fuyw=640) abnormal Platelet population distribution. NUCLEATED RED BLOOD CELLS 0 /100 WBC 0-0 (BEAKER) (test iwvo=759) NEUTROPHILS RELATIVE PERCENT 71 % (BEAKER) (test wmak=124) LYMPHOCYTES RELATIVE PERCENT 17 % (BEAKER) (test catr=257) MONOCYTES RELATIVE PERCENT 10 % (BEAKER) (test vwst=051) EOSINOPHILS RELATIVE PERCENT 1 % (BEAKER) (test hczs=237) BASOPHILS RELATIVE PERCENT 0 % (BEAKER) (test bycb=127) NEUTROPHILS ABSOLUTE COUNT 6.59 K/ L 1.56-6.13 (BEAKER) (test kokq=174) LYMPHOCYTES ABSOLUTE COUNT 1.59 K/ L 1.18-3.74 (BEAKER) (test phcl=113) MONOCYTES ABSOLUTE COUNT 0.91 K/ L 0.24-0.36 (BEAKER) (test epcf=856) EOSINOPHILS ABSOLUTE COUNT 0.07 K/ L 0.04-0.36 (BEAKER) (test kjqv=197) BASOPHILS ABSOLUTE COUNT 0.03 K/ L 0.01-0.08 (BEAKER) (test ijfk=255) IMMATURE GRANULOCYTES-RELATIVE 0 % 0-1 PERCENT (BEAKER) (test wpvl=2126) BASIC METABOLIC [id number] 06:01:00 Test Item Value Reference Range Comments SODIUM (BEAKER) (test 137 meq/L 136-145 pxwg=181) POTASSIUM (BEAKER) (test 3.7 meq/L 3.5-5.1 pntf=111) CHLORIDE (BEAKER) (test 112 meq/L 98-107 okqk=472) CO2 (BEAKER) (test 17 meq/L 22-29 isoe=313) BLOOD UREA NITROGEN 7 mg/dL 7-21 (BEAKER) (test oxuf=617) CREATININE (BEAKER) (test 0.64 mg/dL 0.57-1.25 wznf=227) GLUCOSE RANDOM (BEAKER) 82 mg/dL 70-105 (test uges=624) CALCIUM (BEAKER) (test 8.9 mg/dL 8.4-10.2 fkpr=917) EGFR (BEAKER) (test 126 mL/min/1.73 sq m ESTIMATED GFR IS NOT aepv=1397) ACCURATE CREATININE CLEARANCE IN PREDICTING GLOMERULAR FILTRATION RATE. ESTIMATED GFR IS NOT APPLICABLE FOR DIALYSIS PATIENTS. CBC W/PLT COUNT & AUTO [id number] 22:22:00 Test Item Value Reference Range Comments WHITE BLOOD CELL COUNT 8.0 K/ L 3.5-10.5 (BEAKER) (test gxuh=545) RED BLOOD CELL COUNT (BEAKER) 4.53 M/ L 3.93-5.22 (test eeie=755) HEMOGLOBIN (BEAKER) (test 10.5 GM/DL 11.2-15.7 nvet=545) HEMATOCRIT (BEAKER) (test 35.1 % 34.1-44.9 hzfk=044) MEAN CORPUSCULAR VOLUME 77.5 fL 79.4-94.8 (BEAKER) (test kkvn=149) MEAN CORPUSCULAR HEMOGLOBIN 23.2 pg 25.6-32.2 (BEAKER) (test qqjl=910) MEAN CORPUSCULAR HEMOGLOBIN 29.9 GM/DL 32.2-35.5 CONC (BEAKER) (test krql=177) RED CELL DISTRIBUTION WIDTH 20.6 % 11.7-14.4 (BEAKER) (test dqxo=428) PLATELET COUNT (BEAKER) (test 97 K/CU MM 150-450 beig=459) MEAN PLATELET VOLUME (BEAKER) fL 9.4-12.3 Unable to report due to (test dint=116) abnormal Platelet population distribution. NUCLEATED RED BLOOD CELLS 0 /100 WBC 0-0 (BEAKER) (test gyzd=891) NEUTROPHILS RELATIVE PERCENT 80 % (BEAKER) (test shdo=833) LYMPHOCYTES RELATIVE PERCENT 16 % (BEAKER) (test frga=184) MONOCYTES RELATIVE PERCENT 4 % (BEAKER) (test atiz=220) EOSINOPHILS RELATIVE PERCENT 0 % (BEAKER) (test tccj=581) BASOPHILS RELATIVE PERCENT 0 % (BEAKER) (test xsao=929) NEUTROPHILS ABSOLUTE COUNT 6.41 K/ L 1.56-6.13 (BEAKER) (test zfbw=493) LYMPHOCYTES ABSOLUTE COUNT 1.24 K/ L 1.18-3.74 (BEAKER) (test xhrg=300) MONOCYTES ABSOLUTE COUNT 0.32 K/ L 0.24-0.36 (BEAKER) (test ckvu=069) EOSINOPHILS ABSOLUTE COUNT 0.00 K/ L 0.04-0.36 (BEAKER) (test ujzc=962) BASOPHILS ABSOLUTE COUNT 0.01 K/ L 0.01-0.08 (BEAKER) (test fwxi=469) IMMATURE GRANULOCYTES-RELATIVE 1 % 0-1 PERCENT (BEAKER) (test srsq=4397) BASIC METABOLIC [id number] 21:08:00 Test Item Value Reference Range Comments SODIUM (BEAKER) (test 135 meq/L 136-145 absk=823) POTASSIUM (BEAKER) (test 4.4 meq/L 3.5-5.1 bsor=500) CHLORIDE (BEAKER) (test 111 meq/L 98-107 mngy=078) CO2 (BEAKER) (test 15 meq/L 22-29 ppjv=602) BLOOD UREA NITROGEN 7 mg/dL 7-21 (BEAKER) (test goln=496) CREATININE (BEAKER) (test 0.62 mg/dL 0.57-1.25 fobh=818) GLUCOSE RANDOM (BEAKER) 95 mg/dL 70-105 (test till=757) CALCIUM (BEAKER) (test 8.9 mg/dL 8.4-10.2 elqy=903) EGFR (BEAKER) (test 131 mL/min/1.73 sq m ESTIMATED GFR IS NOT tigc=3999) ACCURATE CREATININE CLEARANCE IN PREDICTING GLOMERULAR FILTRATION RATE. ESTIMATED GFR IS NOT APPLICABLE FOR DIALYSIS PATIENTS. RAD, CHEST, 1 VIEW, NON [id number] 13:37:00Reason for exam:->eval for pneumothoraxReason for exam:->in PACUShould this be performed at the bedside? ->YesFINAL REPORT TECHNIQUE: Frontal chest radiograph dated 06/28/2018. CLINICAL HISTORY: Evaluate for pneumothorax COMPARISON STUDY: Radiograph of the chest dated 06/25/2018 IMPRESSION:No change in life support lines, tubes and devices. Left pleural effusion has increased and is now large in size. Left lung base atelectasis is is present. Pneumonia should be excluded clinically. No pneumothorax. Cardiomediastinal silhouette is stable in appearance. No pulmonary edema. Curvature of the spine is present. No visualized fracture. Signed: Molly Irelandeport Verified Date/Time: 13:37:49 Reading Location: [facility] Radiology Reading Room CBC W/PLT COUNT & amp; AUTO [id number] 09:50:00 Test Item Value Reference Range Comments WHITE BLOOD CELL COUNT 5.8 K/ L 3.5-10.5 (BEAKER) (test scyc=433) RED BLOOD CELL COUNT (BEAKER) 4.38 M/ L 3.93-5.22 (test ghfv=874) HEMOGLOBIN (BEAKER) (test 10.3 GM/DL 11.2-15.7 tkly=505) HEMATOCRIT (BEAKER) (test 33.7 % 34.1-44.9 tiev=198) MEAN CORPUSCULAR VOLUME 76.9 fL 79.4-94.8 (BEAKER) (test hmsn=275) MEAN CORPUSCULAR HEMOGLOBIN 23.5 pg 25.6-32.2 (BEAKER) (test rakl=165) MEAN CORPUSCULAR HEMOGLOBIN 30.6 GM/DL 32.2-35.5 CONC (BEAKER) (test kqna=692) RED CELL DISTRIBUTION WIDTH 20.5 % 11.7-14.4 (BEAKER) (test lupw=302) PLATELET COUNT (BEAKER) (test K/CU MM 150-450 Platelet clumps dmkl=782) present;unable to report true count. Platelet count should be recollected using an EDTA and CITRATE(blue) tube. MEAN PLATELET VOLUME (BEAKER) fL 9.4-12.3 Unable to report due to (test xyja=892) abnormal Platelet population distribution. NUCLEATED RED BLOOD CELLS 0 /100 WBC 0-0 (BEAKER) (test etyi=398) NEUTROPHILS RELATIVE PERCENT 47 % (BEAKER) (test sdnn=431) LYMPHOCYTES RELATIVE PERCENT 33 % (BEAKER) (test xyth=424) MONOCYTES RELATIVE PERCENT 12 % (BEAKER) (test rrlw=613) EOSINOPHILS RELATIVE PERCENT 8 % (BEAKER) (test luem=103) BASOPHILS RELATIVE PERCENT 0 % (BEAKER) (test pkjp=510) NEUTROPHILS ABSOLUTE COUNT 2.70 K/ L 1.56-6.13 (BEAKER) (test yohl=533) LYMPHOCYTES ABSOLUTE COUNT 1.90 K/ L 1.18-3.74 (BEAKER) (test qufy=541) MONOCYTES ABSOLUTE COUNT 0.66 K/ L 0.24-0.36 (BEAKER) (test qssm=678) EOSINOPHILS ABSOLUTE COUNT 0.45 K/ L 0.04-0.36 (BEAKER) (test zlno=801) BASOPHILS ABSOLUTE COUNT 0.02 K/ L 0.01-0.08 (BEAKER) (test clhf=746) IMMATURE GRANULOCYTES-RELATIVE 0 % 0-1 PERCENT (BEAKER) (test oyve=0186) FL, ELECTRICAL CONTROLS TECHNICIAN IN OR/30 MINUTE [id number] 09:43:00Reason for exam:-> PCNLIs the patient ?->NoWhen was patient's last menstrual cycle?-> 06/15/18INAL REPORT History: PCNL COMPARISON: None DISCUSSION: A [...] 8 static images were acquired. Signed: Toni Pulido MDReport Verified Date/Time: 2017 09:43:00 Reading Location:[facility] Radiology Reading Room 09:43 AMBASIC METABOLIC [id number] 07:59:00 Test Item Value Reference Range Comments SODIUM (BEAKER) (test 135 meq/L 136-145 cjsy=668) POTASSIUM (BEAKER) (test 4.2 meq/L 3.5-5.1 nofk=338) CHLORIDE (BEAKER) (test 110 meq/L 98-107 vhax=331) CO2 (BEAKER) (test 18 meq/L 22-29 qlms=222) BLOOD UREA NITROGEN 7 mg/dL 7-21 (BEAKER) (test dxgy=776) CREATININE (BEAKER) (test 0.63 mg/dL 0.57-1.25 xrab=692) GLUCOSE RANDOM (BEAKER) 84 mg/dL 70-105 (test dwfk=072) CALCIUM (BEAKER) (test 8.6 mg/dL 8.4-10.2 gieo=394) EGFR (BEAKER) (test 128 mL/min/1.73 sq m ESTIMATED GFR IS NOT lplv=5577) ACCURATE CREATININE CLEARANCE IN PREDICTING GLOMERULAR FILTRATION RATE. ESTIMATED GFR IS NOT APPLICABLE FOR DIALYSIS PATIENTS. HEMOGLOBIN AND [id number] 14:41:00 Test Item Value Reference Range Comments HEMOGLOBIN (BEAKER) (test pzdj=572) 6.5 GM/DL 11.2-15.7 HEMATOCRIT (BEAKER) (test uyip=135) 23.1 % 34.1-44.9 BASIC METABOLIC [id number] 08:36:00 Test Item Value Reference Range Comments SODIUM (BEAKER) (test 135 meq/L 136-145 aezj=805) POTASSIUM (BEAKER) (test 4.1 meq/L 3.5-5.1 gijc=698) CHLORIDE (BEAKER) (test 111 meq/L 98-107 qlsd=183) CO2 (BEAKER) (test 18 meq/L 22-29 jiql=842) BLOOD UREA NITROGEN 8 mg/dL 7-21 (BEAKER) (test vaol=912) CREATININE (BEAKER) (test 0.61 mg/dL 0.57-1.25 nnar=991) GLUCOSE RANDOM (BEAKER) 75 mg/dL 70-105 (test gbcx=111) CALCIUM (BEAKER) (test 8.4 mg/dL 8.4-10.2 qpxv=434) EGFR (BEAKER) (test 133 mL/min/1.73 sq m ESTIMATED GFR IS NOT bydp=9842) ACCURATE CREATININE CLEARANCE IN PREDICTING GLOMERULAR FILTRATION RATE. ESTIMATED GFR IS NOT APPLICABLE FOR DIALYSIS PATIENTS. CBC W/PLT COUNT & AUTO [id number] 05:49:00 Test Item Value Reference Range Comments WHITE BLOOD CELL COUNT (BEAKER) (test roqy=747) 5.1 K/ L 3.5-10.5 RED BLOOD CELL COUNT (BEAKER) (test sucu=024) 3.14 M/ L 3.93-5.22 HEMOGLOBIN (BEAKER) (test fauk=453) 6.3 GM/DL 11.2-15.7 HEMATOCRIT (BEAKER) (test zbeu=797) 22.8 % 34.1-44.9 MEAN CORPUSCULAR VOLUME (BEAKER) (test dpoy=487) 72.6 fL 79.4-94.8 MEAN CORPUSCULAR HEMOGLOBIN (BEAKER) (test 20.1 pg 25.6-32.2 udcy=281) MEAN CORPUSCULAR HEMOGLOBIN CONC (BEAKER) (test 27.6 GM/DL 32.2-35.5 qhwr=164) RED CELL DISTRIBUTION WIDTH (BEAKER) (test 20.5 % 11.7-14.4 virx=886) PLATELET COUNT (BEAKER) (test fbmn=917) 426 K/CU MM 150-450 MEAN PLATELET VOLUME (BEAKER) (test cvrg=828) 10.9 fL 9.4-12.3 NUCLEATED RED BLOOD CELLS (BEAKER) (test 0 /100 WBC 0-0 vsyb=512) NEUTROPHILS RELATIVE PERCENT (BEAKER) (test 47 % mrjc=296) LYMPHOCYTES RELATIVE PERCENT (BEAKER) (test 30 % bbkg=934) MONOCYTES RELATIVE PERCENT (BEAKER) (test 13 % lusc=756) EOSINOPHILS RELATIVE PERCENT (BEAKER) (test 10 % rrgw=524) BASOPHILS RELATIVE PERCENT (BEAKER) (test 0 % aghf=954) NEUTROPHILS ABSOLUTE COUNT (BEAKER) (test 2.35 K/ L 1.56-6.13 qzsi=699) LYMPHOCYTES ABSOLUTE COUNT (BEAKER) (test 1.53 K/ L 1.18-3.74 gywk=136) MONOCYTES ABSOLUTE COUNT (BEAKER) (test 0.67 K/ L 0.24-0.36 qggh=872) EOSINOPHILS ABSOLUTE COUNT (BEAKER) (test 0.48 K/ L 0.04-0.36 ugkl=576) BASOPHILS ABSOLUTE COUNT (BEAKER) (test 0.01 K/ L 0.01-0.08 xuef=091) IMMATURE GRANULOCYTES-RELATIVE PERCENT (BEAKER) 0 % 0-1 (test eykn=8459) HEMOGLOBIN AND [id number] 14:34:00 Test Item Value Reference Range Comments HEMOGLOBIN (BEAKER) (test chaa=524) 7.0 GM/DL 11.2-15.7 HEMATOCRIT (BEAKER) (test kqxc=285) 24.7 % 34.1-44.9 CBC W/PLT COUNT & AUTO [id number] 10:55:00 Test Item Value Reference Range Comments WHITE BLOOD CELL COUNT 6.0 K/ L 3.5-10.5 (BEAKER) (test baem=784) RED BLOOD CELL COUNT (BEAKER) 3.59 M/ L 3.93-5.22 (test mams=943) HEMOGLOBIN (BEAKER) (test 7.3 GM/DL 11.2-15.7 zgak=362) HEMATOCRIT (BEAKER) (test 25.9 % 34.1-44.9 bwty=743) MEAN CORPUSCULAR VOLUME 72.1 fL 79.4-94.8 (BEAKER) (test ztla=801) MEAN CORPUSCULAR HEMOGLOBIN 20.3 pg 25.6-32.2 (BEAKER) (test lfvv=777) MEAN CORPUSCULAR HEMOGLOBIN 28.2 GM/DL 32.2-35.5 CONC (BEAKER) (test kzkl=576) RED CELL DISTRIBUTION WIDTH 20.2 % 11.7-14.4 (BEAKER) (test tggl=071) PLATELET COUNT (BEAKER) (test 592 K/CU MM 150-450 Platelets count from ebct=300) citrated tube. MEAN PLATELET VOLUME (BEAKER) 9.4 fL 9.4-12.3 (test mnmf=045) NUCLEATED RED BLOOD CELLS 0 /100 WBC 0-0 (BEAKER) (test fkhz=030) NEUTROPHILS RELATIVE PERCENT 56 % (BEAKER) (test ngmi=988) LYMPHOCYTES RELATIVE PERCENT 26 % (BEAKER) (test acls=164) MONOCYTES RELATIVE PERCENT 10 % (BEAKER) (test thxb=878) EOSINOPHILS RELATIVE PERCENT 8 % (BEAKER) (test nabz=348) BASOPHILS RELATIVE PERCENT 0 % (BEAKER) (test ymgs=292) NEUTROPHILS ABSOLUTE COUNT 3.35 K/ L 1.56-6.13 (BEAKER) (test fbzi=387) LYMPHOCYTES ABSOLUTE COUNT 1.53 K/ L 1.18-3.74 (BEAKER) (test yykm=891) MONOCYTES ABSOLUTE COUNT 0.60 K/ L 0.24-0.36 (BEAKER) (test wuhk=765) EOSINOPHILS ABSOLUTE COUNT 0.47 K/ L 0.04-0.36 (BEAKER) (test itqf=054) BASOPHILS ABSOLUTE COUNT 0.02 K/ L 0.01-0.08 (BEAKER) (test xvgr=847) IMMATURE GRANULOCYTES-RELATIVE 0 % 0-1 PERCENT (BEAKER) (test uqsg=6759) BASIC METABOLIC [id number] 06:21:00 Test Item Value Reference Range Comments SODIUM (BEAKER) (test 138 meq/L 136-145 iyvt=732) POTASSIUM (BEAKER) (test 4.6 meq/L 3.5-5.1 Specimen slightly mtgh=496) hemolyzed CHLORIDE (BEAKER) (test 114 meq/L 98-107 lsgz=813) CO2 (BEAKER) (test 15 meq/L 22-29 agcy=620) BLOOD UREA NITROGEN 9 mg/dL 7-21 (BEAKER) (test hfvx=665) CREATININE (BEAKER) (test 0.67 mg/dL 0.57-1.25 Specimen slightly qlwe=698) hemolyzed GLUCOSE RANDOM (BEAKER) 81 mg/dL 70-105 (test zopb=433) CALCIUM (BEAKER) (test 8.6 mg/dL 8.4-10.2 haet=902) EGFR (BEAKER) (test 119 mL/min/1.73 sq m ESTIMATED GFR IS NOT lyuy=6860) ACCURATE CREATININE CLEARANCE IN PREDICTING GLOMERULAR FILTRATION RATE. ESTIMATED GFR IS NOT APPLICABLE FOR DIALYSIS PATIENTS. CBC W/PLT COUNT & AUTO [id number] 14:39:00 Test Item Value Reference Range Comments WHITE BLOOD CELL COUNT 5.3 K/ L 3.5-10.5 (BEAKER) (test muuf=820) RED BLOOD CELL COUNT (BEAKER) 3.55 M/ L 3.93-5.22 (test cjnd=982) HEMOGLOBIN (BEAKER) (test 7.3 GM/DL 11.2-15.7 dsbm=710) HEMATOCRIT (BEAKER) (test 25.9 % 34.1-44.9 ryxs=684) MEAN CORPUSCULAR VOLUME 73.0 fL 79.4-94.8 (BEAKER) (test xlps=293) MEAN CORPUSCULAR HEMOGLOBIN 20.6 pg 25.6-32.2 (BEAKER) (test lrva=779) MEAN CORPUSCULAR HEMOGLOBIN 28.2 GM/DL 32.2-35.5 CONC (BEAKER) (test cxlp=751) RED CELL DISTRIBUTION WIDTH 20.3 % 11.7-14.4 (BEAKER) (test cqwu=988) PLATELET COUNT (BEAKER) (test 554 K/CU MM 150-450 Platelet Clumps present. fxmb=735) Unable to report true count on Purple top. Platelet Count using citrate tube MEAN PLATELET VOLUME (BEAKER) fL 9.4-12.3 Unable to report due to (test djnd=310) abnormal Platelet population distribution. NUCLEATED RED BLOOD CELLS 0 /100 WBC 0-0 (BEAKER) (test vxsk=191) NEUTROPHILS RELATIVE PERCENT 61 % (BEAKER) (test amau=414) LYMPHOCYTES RELATIVE PERCENT 25 % (BEAKER) (test jsev=627) MONOCYTES RELATIVE PERCENT 8 % (BEAKER) (test niri=245) EOSINOPHILS RELATIVE PERCENT 6 % (BEAKER) (test jqwu=364) BASOPHILS RELATIVE PERCENT 0 % (BEAKER) (test lpie=826) NEUTROPHILS ABSOLUTE COUNT 3.25 K/ L 1.56-6.13 (BEAKER) (test rrhe=047) LYMPHOCYTES ABSOLUTE COUNT 1.32 K/ L 1.18-3.74 (BEAKER) (test xfsg=077) MONOCYTES ABSOLUTE COUNT 0.40 K/ L 0.24-0.36 (BEAKER) (test miaa=102) EOSINOPHILS ABSOLUTE COUNT 0.34 K/ L 0.04-0.36 (BEAKER) (test vqhr=744) BASOPHILS ABSOLUTE COUNT 0.01 K/ L 0.01-0.08 (BEAKER) (test qvzr=826) IMMATURE GRANULOCYTES-RELATIVE 0 % 0-1 PERCENT (BEAKER) (test sndp=9009) RAD, CHEST, 1 VIEW, NON [id number] 10:16:00Reason for exam:->Post Power PICC insertion RUE for tip verificationShould this be performed at the bedside?- >YesFINAL REPORT AP chest HISTORY: PICC placement COMPARISON: None IMPRESSION:Right arm PICC present with tip at upper SVC. SVC filter present. Left-sided SAAS ARCHITECT shunt. Grossly normal cardiac silhouette. Right lung clear. Moderate left effusion. Signed: John Kerr MDReport VerifiedDate/Time: 06/25/2018 10:16:18 Reading Location: [facility] [id number] Ortho Consult Reading Room BASIC METABOLIC [id number] 09:58:00 Test Item Value Reference Range Comments SODIUM (BEAKER) (test 136 meq/L 136-145 clhr=117) POTASSIUM (BEAKER) (test 4.4 meq/L 3.5-5.1 Specimen slightly tiah=674) hemolyzed CHLORIDE (BEAKER) (test 107 meq/L 98-107 funq=217) CO2 (BEAKER) (test 23 meq/L 22-29 rlio=696) BLOOD UREA NITROGEN 11 mg/dL 7-21 (BEAKER) (test vwiu=475) CREATININE (BEAKER) (test 0.68 mg/dL 0.57-1.25 Specimen slightly dtrt=857) hemolyzed GLUCOSE RANDOM (BEAKER) 92 mg/dL 70-105 (test sqoa=699) CALCIUM (BEAKER) (test 8.9 mg/dL 8.4-10.2 dwul=695) EGFR (BEAKER) (test 117 mL/min/1.73 sq m ESTIMATED GFR IS NOT olzm=0699) ACCURATE CREATININE CLEARANCE IN PREDICTING GLOMERULAR FILTRATION RATE. ESTIMATED GFR IS NOT APPLICABLE FOR DIALYSIS PATIENTS. CBC W/PLT COUNT & AUTO [id number] 13:38:00 Test Item Value Reference Range Comments WHITE BLOOD CELL COUNT 7.5 K/ L 3.5-10.5 (BEAKER) (test joom=618) RED BLOOD CELL COUNT (BEAKER) 4.45 M/ L 3.93-5.22 (test mzdf=205) HEMOGLOBIN (BEAKER) (test 9.2 GM/DL 11.2-15.7 yatm=961) HEMATOCRIT (BEAKER) (test 32.4 % 34.1-44.9 ythu=199) MEAN CORPUSCULAR VOLUME 72.8 fL 79.4-94.8 (BEAKER) (test qmyw=257) MEAN CORPUSCULAR HEMOGLOBIN 20.7 pg 25.6-32.2 (BEAKER) (test xkxt=095) MEAN CORPUSCULAR HEMOGLOBIN 28.4 GM/DL 32.2-35.5 CONC (BEAKER) (test wsao=914) RED CELL DISTRIBUTION WIDTH 20.6 % 11.7-14.4 (BEAKER) (test jzxg=100) PLATELET COUNT (BEAKER) (test 275 K/CU MM 150-450 eeez=657) MEAN PLATELET VOLUME (BEAKER) fL 9.4-12.3 Unable to report due to (test mgak=994) abnormal Platelet population distribution. NUCLEATED RED BLOOD CELLS 0 /100 WBC 0-0 (BEAKER) (test zekt=690) NEUTROPHILS RELATIVE PERCENT 65 % (BEAKER) (test fuiq=677) LYMPHOCYTES RELATIVE PERCENT 23 % (BEAKER) (test bysa=710) MONOCYTES RELATIVE PERCENT 8 % (BEAKER) (test nhhl=010) EOSINOPHILS RELATIVE PERCENT 4 % (BEAKER) (test ysfn=664) BASOPHILS RELATIVE PERCENT 0 % (BEAKER) (test tmbi=906) NEUTROPHILS ABSOLUTE COUNT 4.86 K/ L 1.56-6.13 (BEAKER) (test zmkc=841) LYMPHOCYTES ABSOLUTE COUNT 1.69 K/ L 1.18-3.74 (BEAKER) (test ltou=963) MONOCYTES ABSOLUTE COUNT 0.60 K/ L 0.24-0.36 (BEAKER) (test jfip=097) EOSINOPHILS ABSOLUTE COUNT 0.30 K/ L 0.04-0.36 (BEAKER) (test jwtg=359) BASOPHILS ABSOLUTE COUNT 0.02 K/ L 0.01-0.08 (BEAKER) (test vyez=920) IMMATURE GRANULOCYTES-RELATIVE 0 % 0-1 PERCENT (BEAKER) (test vktw=8594) BASIC METABOLIC [id number] 13:03:00 Test Item Value Reference Range Comments SODIUM (BEAKER) (test 134 meq/L 136-145 nfyq=816) POTASSIUM (BEAKER) (test 4.3 meq/L 3.5-5.1 kivf=285) CHLORIDE (BEAKER) (test 104 meq/L 98-107 wpab=423) CO2 (BEAKER) (test 19 meq/L 22-29 huhz=666) BLOOD UREA NITROGEN 11 mg/dL 7-21 (BEAKER) (test ssze=902) CREATININE (BEAKER) (test 0.72 mg/dL 0.57-1.25 tnur=874) GLUCOSE RANDOM (BEAKER) 82 mg/dL 70-105 (test rfdb=599) CALCIUM (BEAKER) (test 9.7 mg/dL 8.4-10.2 psla=658) EGFR (BEAKER) (test 110 mL/min/1.73 sq m ESTIMATED GFR IS NOT swep=5848) ACCURATE CREATININE CLEARANCE IN PREDICTING GLOMERULAR FILTRATION RATE. ESTIMATED GFR IS NOT APPLICABLE FOR DIALYSIS PATIENTS. BODY FLUID CULTURE + GRAM [id number] 16:53:00 Test Item Value Reference Range Comments CULTURE (BEAKER) (test ENTEROBACTER CLOACAE 2+ Enterobacter vpzi=1714) COMPLEX cloacae complexESBL PositiveAmpC Positive Amikacin (test code=1) Aztreonam (test code=32) Cefepime (test code=51) Cefoxitin (test code=68) Ceftazidime (test code=27) Ceftriaxone (test code=52) Ertapenem (test code=38) Gentamicin (test code=18) Levofloxacin (test code=22) Meropenem (test code=34) Nitrofurantoin (test code=23) Piperacillin + Tazobactam (test code=29) Tetracycline (test code=2) Tobramycin (test code=25) Trimethoprim + Sulfamethoxazole (test code=47) CULTURE (BEAKER) (test ENTEROCOCCUS SPECIES 2+ Enterococcus zvzw=7799) species Ampicillin (test code=26) Linezolid (test code=40) Vancomycin (test code=13) CULTURE (BEAKER) (test 2+ Katie orjf=3697) parapsilosis GRAM STAIN RESULT (BEAKER) No organisms seen (test whvz=8756) GRAM STAIN RESULT (BEAKER) 1+ White blood cells (test gdld=177110) seen URINE [id number] 10:14:00 Test Item Value Reference Range Comments CULTURE (BEAKER) (test ENTEROBACTER CLOACAE >100,000 col/mL hxdc=9258) COMPLEX Enterobacter cloacae complex Amikacin (test code=1) Aztreonam (test code=32) Cefepime (test code=51) Cefoxitin (test code=68) Ceftazidime (test code=27) Ceftriaxone (test code=52) Gentamicin (test code=18) Levofloxacin (test code=22) Meropenem (test code=34) Nitrofurantoin (test code=23) Piperacillin + Tazobactam (test code=29) Tetracycline (test code=2) Tobramycin (test code=25) Trimethoprim + Sulfamethoxazole (test code=47) CULTURE (BEAKER) (test PSEUDOMONAS 30-39,000 col/mL rixp=7222) AERUGINOSA Pseudomonas aeruginosa Amikacin (test code=1) Susceptible 0-16 , Resistant <0 or >16 Aztreonam (test code=32) Susceptible 0-8 , Resistant <0 or >8 Cefepime (test code=51) Susceptible 0-8 , Resistant <0 or >8 Ceftazidime (test Susceptible 0-8 , code=27) Resistant <0 or >8 Ciprofloxacin (test Susceptible 0-1 , code=7) Resistant <0 or >1 Gentamicin (test code=18) Susceptible 0-4 , Resistant <0 or >4 Levofloxacin (test Susceptible 0-2 , code=22) Resistant <0 or >2 Meropenem (test code=34) Susceptible 0-2 , Resistant <0 or >2 Piperacillin (test Susceptible 0-16 , code=24) Resistant <0 or >16 Piperacillin + Tazobactam Susceptible 0-16 , (test code=29) Resistant <0 or >16 Tobramycin (test code=25) Susceptible 0-4 , Resistant <0 or >4 CULTURE (BEAKER) (test ENTEROCOCCUS SPECIES 50-59,000 col/mL jyff=9768) Enterococcus species Ampicillin (test code=26) Linezolid (test code=40) Nitrofurantoin (test code=23) Tetracycline (test code=2) Vancomycin (test code=13) BLOOD [id number] 11:00:00 Test Item Value Reference Range Comments CULTURE (BEAKER) (test fcpj=6842) No growth in 5 days BLOOD [id number] 06:00:00 Test Item Value Reference Range Comments CULTURE (BEAKER) (test bsex=2693) No growth in 5 days BASIC METABOLIC [id number] 04:43:00 Test Item Value Reference Range Comments SODIUM (BEAKER) (test 141 meq/L 136-145 rexr=004) POTASSIUM (BEAKER) (test 3.7 meq/L 3.5-5.1 zzjb=819) CHLORIDE (BEAKER) (test 112 meq/L 98-107 ssvo=410) CO2 (BEAKER) (test 21 meq/L 22-29 mwtm=135) BLOOD UREA NITROGEN 12 mg/dL 7-21 (BEAKER) (test bgls=259) CREATININE (BEAKER) (test 0.63 mg/dL 0.57-1.25 zvnn=759) GLUCOSE RANDOM (BEAKER) 83 mg/dL 70-105 (test huvh=207) CALCIUM (BEAKER) (test 8.9 mg/dL 8.4-10.2 lovs=696) EGFR (BEAKER) (test 128 mL/min/1.73 sq m ESTIMATED GFR IS NOT ljbh=4447) ACCURATE CREATININE CLEARANCE IN PREDICTING GLOMERULAR FILTRATION RATE. ESTIMATED GFR IS NOT APPLICABLE FOR DIALYSIS PATIENTS. URINALYSIS W/ REFLEX URINE [id number] 15:11:00 Test Item Value Reference Range Comments COLOR (BEAKER) (test rics=452) [place] CLARITY (BEAKER) (test lrui=365) Hazy SPECIFIC GRAVITY UA (BEAKER) (test yper=019) 1.013 1.001-1.035 PH UA (BEAKER) (test apkw=757) 6.0 5.0-8.0 PROTEIN UA (BEAKER) (test qdff=658) 100 mg/dL Negative GLUCOSE UA (BEAKER) (test oieh=180) Negative Negative KETONES UA (BEAKER) (test hayj=490) Trace Negative BILIRUBIN UA (BEAKER) (test oqys=172) Negative Negative BLOOD UA (BEAKER) (test eksr=181) Large Negative NITRITE UA (BEAKER) (test pgtw=508) Negative Negative LEUKOCYTE ESTERASE UA (BEAKER) (test vhtt=114) Large Negative UROBILINOGEN UA (BEAKER) (test qtoy=205) 0.2 mg/dL 0.2-1.0 RBC UA (BEAKER) (test opte=886) > /HPF WBC UA (BEAKER) (test ptlg=720) 68 /HPF MUCUS (BEAKER) (test pmvw=7612) Rare SOURCE(BEAKER) (test eyet=5028) ANG, NEPHROSTOMY, PERC, EXTERNAL [id number] 13:43:00Reason for exam:-> right obstructing stone with UTI, needs right PCNU if possible or PCN if notFINAL REPORT Fluoroscopic and ultrasound guided right nephroureterostomy tube placement, 06/12/2018. Clinical History: Obstructing stone at the junction of the right distal ureter and ileoconduit with hydronephrosis and urosepsis. Patient has a history of spina bifida/caudal regression. Modality: Sonography and fluoroscopy Airfreight Loading Supervisor: Faisal Felix MD. Heavy Equipment Sales Manager: None. Sedation: General anesthesia provided by the anesthesia service Estimated Blood Loss: Less than 5 cc. Specimen: None. Fluoroscopy Time: 3.6 min.Reference Air Kerma (Ka, r): 21.5 mGy. Technique : Informed written consent was obtained. Discussion of [...] maximum catheter was then removed. The tract wasdilated to 8 Swedish. An 8.5 Swedish by 28 cm nephroureterostomy catheter was then advanced over the guidewire. The distal pigtail was formed within the ostomy bag in the proximal pigtails formed within the right renal pelvis. The catheter was then secured onto the skin with 2-0 silk. The patient tolerated the procedure well, without immediate complications. The patient's vital signs remained stable throughout the procedure. Impression:Successful and uncomplicated fluoroscopic and ultrasound guided right nephroureterostomy tube placement. Signed: Faisal Felix MDReport Verified Date/Time: 06/12/2018 13:43:17 Reading Location: [place] [address] Angio Body Reading Room CBC (HEMOGRAM ONLY)2018-06-12 10:29:00 Test Item Value Reference Range Comments WHITE BLOOD CELL COUNT (BEAKER) 8.5 K/ L 3.5-10.5 (test xcnu=772) RED BLOOD CELL COUNT (BEAKER) 4.23 M/ L 3.93-5.22 (test zisb=879) HEMOGLOBIN (BEAKER) (test 9.1 GM/DL 11.2-15.7 kplm=181) HEMATOCRIT (BEAKER) (test 31.4 % 34.1-44.9 xryj=538) MEAN CORPUSCULAR VOLUME 74.2 fL 79.4-94.8 (BEAKER) (test pxpk=979) MEAN CORPUSCULAR HEMOGLOBIN 21.5 pg 25.6-32.2 (BEAKER) (test bfvz=895) MEAN CORPUSCULAR HEMOGLOBIN 29.0 GM/DL 32.2-35.5 CONC (BEAKER) (test nckx=051) RED CELL DISTRIBUTION WIDTH 20.4 % 11.7-14.4 (BEAKER) (test hfcd=132) PLATELET COUNT (BEAKER) (test K/CU MM 150-450 Platelet clumps present, tzje=008) unable to report true platelet. Recommend recollect using EDTA tube and blue (Citrate) tube. spoke to RN ID:[id number] NUCLEATED RED BLOOD CELLS 0 /100 WBC 0-0 (BEAKER) (test mhrg=096) BASIC METABOLIC [id number] 06:52:00 Test Item Value Reference Range Comments SODIUM (BEAKER) (test 137 meq/L 136-145 nvue=085) POTASSIUM (BEAKER) (test 3.6 meq/L 3.5-5.1 vdxi=071) CHLORIDE (BEAKER) (test 108 meq/L 98-107 vtim=204) CO2 (BEAKER) (test 20 meq/L 22-29 cyuu=577) BLOOD UREA NITROGEN 14 mg/dL 7-21 (BEAKER) (test xidy=204) CREATININE (BEAKER) (test 0.66 mg/dL 0.57-1.25 gtce=681) GLUCOSE RANDOM (BEAKER) 87 mg/dL 70-105 (test ptoq=064) CALCIUM (BEAKER) (test 9.1 mg/dL 8.4-10.2 bwzz=565) EGFR (BEAKER) (test 121 mL/min/1.73 sq m ESTIMATED GFR IS NOT zkvs=8916) ACCURATE CREATININE CLEARANCE IN PREDICTING GLOMERULAR FILTRATION RATE. ESTIMATED GFR IS NOT APPLICABLE FOR DIALYSIS PATIENTS. PT/[id number] 06:37:00 Test Item Value Reference Range Comments PROTIME (BEAKER) (test iwvl=250) 14.4 seconds 11.7-14.7 INR (BEAKER) (test wjtp=749) 1.1 <=5.9 PARTIAL THROMBOPLASTIN TIME (BEAKER) (test 30.8 seconds 22.5-36.0 zkyv=902) RECOMMENDED COUMADIN/WARFARIN INR THERAPY RANGESSTANDARD DOSE: 2.0 - 3.0 Includes: PROPHYLAXIS forvenous thrombosis, systemic embolization; TREATMENT for venous thrombosis and/or pulmonary embolus.HIGH RISK: Target INR is 2.5-3.5 for patients with mechanical heart valves.CT, [id number] 18:04:00FINAL REPORT CT scan of the abdomen and pelvis. MEDICAL HISTORY : Evaluate right ureteric stone. COMPARISON STUDY: None available. TECHNIQUE: Contiguous helical slices were acquired through the abdomen and pelvis without the administration of oral or intravenous contrast. This exam was performed according to our department dose optimization program which includes automated exposure control, adjustment of the mA and/or kV according to the patient's size and/or use of iterative reconstruction technique. FINDINGS: There is a moderate left-sided hydropneumothorax seen with the catheter in the left thorax. Atelectatic changes are seen. The abdomen and pelvis are limited by lack ofcontrast. The liver, spleen, pancreas, and adrenal glands are unremarkable. The gallbladder and biliary tree are within normal limits. Multiple nonocclusive right-sided renal calculi are seen measuringup to 1 cm. There is moderate right-sided hydronephrosis and hydroureter with a 7 mm calculus in theproximal to mid ureter, approximately 3 cm distal to the right UPJ. No left-sided calculus is seen. An ileal conduit is seen. There are no dilated loops of bowel seen to suggest obstruction. Extensive diastases of the abdomen is seen the patient's anterior abdominal muscle. A colostomy seen in the left lower quadrant. There is a pessary device in place. Thickening of the peritoneum is seen with a 3.3cm ulcer. The sacrum is deficient. Spina bifida is noted. Bone windows demonstrate no acute fractures. Developmental hip dysplasia seen bilaterally. IMPRESSION:1. Moderate left-sided hydropneumothorax with a catheter in place.2. Multiple nonocclusive right-sided renal calculi as well as moderate righthydronephrosis and a 7 mm calculus in the right ureter near the anastomosis with the ileal conduit.3. Colostomy in the left lower quadrant.4. Caudal regression syndrome and spina bifida with developmental hip dysplasia.5. Other findings as described above. There is a perineal decubitus ulcer. Signed: Florin Jacobo MDReport Verified Date/Time: 06/11/2018 18:04:02 Reading Location: [facility] B1 [id number] Ortho Consult Reading Room PREGNANCY SCREEN, [id number] 15:46:00 Test Item Value Reference Range Comments TEST URINE (BEAKER) (test gvny=405) Negative URINALYSIS W/ REFLEX URINE [id number] 12:32:00 Test Item Value Reference Range Comments COLOR (BEAKER) (test uwqm=056) Light Yellow CLARITY (BEAKER) (test xkbh=469) Cloudy SPECIFIC GRAVITY UA (BEAKER) (test ybvk=212) 1.013 1.001-1.035 PH UA (BEAKER) (test frda=226) 7.5 5.0-8.0 PROTEIN UA (BEAKER) (test qvse=757) 30 mg/dL Negative GLUCOSE UA (BEAKER) (test keed=289) Negative Negative KETONES UA (BEAKER) (test bkfy=153) Trace Negative BILIRUBIN UA (BEAKER) (test rnns=799) Negative Negative BLOOD UA (BEAKER) (test uvhw=595) Small Negative NITRITE UA (BEAKER) (test xuzd=600) Positive Negative LEUKOCYTE ESTERASE UA (BEAKER) (test vett=854) Large Negative UROBILINOGEN UA (BEAKER) (test wcti=472) 0.2 mg/dL 0.2-1.0 RBC UA (BEAKER) (test lufn=797) 2 /HPF WBC UA (BEAKER) (test txrq=582) 5 /HPF BACTERIA (BEAKER) (test hkyv=432) Occasional MUCUS (BEAKER) (test pali=7607) Rare SQUAMOUS EPITHELIAL (BEAKER) (test llqr=008) 1 /HPF HYALINE CASTS (BEAKER) (test zyab=937) 2 /LPF SOURCE(BEAKER) (test kfvq=1292) URINALYSIS W/ [id number] 12:32:00 Test Item Value Reference Range Comments COLOR (BEAKER) (test ldxd=584) Yellow CLARITY (BEAKER) (test pvmv=286) Hazy SPECIFIC GRAVITY UA (BEAKER) (test fzat=182) 1.012 1.001-1.035 PH UA (BEAKER) (test rufo=266) 8.0 5.0-8.0 PROTEIN UA (BEAKER) (test nxvy=853) 50 mg/dL Negative GLUCOSE UA (BEAKER) (test ebxq=047) Negative Negative KETONES UA (BEAKER) (test vmle=826) Negative Negative BILIRUBIN UA (BEAKER) (test thgd=513) Negative Negative BLOOD UA (BEAKER) (test tble=769) Moderate Negative NITRITE UA (BEAKER) (test xfjx=898) Positive Negative LEUKOCYTE ESTERASE UA (BEAKER) (test Large Negative ekiy=676) UROBILINOGEN UA (BEAKER) (test wzpi=844) 0.2 mg/dL 0.2-1.0 RBC UA (BEAKER) (test qhdr=715) 6 /HPF WBC UA (BEAKER) (test kkxb=151) 10 /HPF BACTERIA (BEAKER) (test arlp=316) Many MUCUS (BEAKER) (test juag=7212) Many CRYSTALS, URINE (BEAKER) (test raoc=3713) Occasional SOURCE(BEAKER) (test mfip=0669) Urine, Urostomy BASIC METABOLIC [id number] 06:01:00 Test Item Value Reference Range Comments SODIUM (BEAKER) (test 139 meq/L 136-145 utqm=857) POTASSIUM (BEAKER) (test 3.6 meq/L 3.5-5.1 qlaz=913) CHLORIDE (BEAKER) (test 108 meq/L 98-107 ajfg=481) CO2 (BEAKER) (test 23 meq/L 22-29 nlhj=365) BLOOD UREA NITROGEN 12 mg/dL 7-21 (BEAKER) (test bzzp=568) CREATININE (BEAKER) (test 0.66 mg/dL 0.57-1.25 wowt=168) GLUCOSE RANDOM (BEAKER) 75 mg/dL 70-105 (test gzgg=094) CALCIUM (BEAKER) (test 8.7 mg/dL 8.4-10.2 rfdy=324) EGFR (BEAKER) (test 121 mL/min/1.73 sq m ESTIMATED GFR IS NOT enmt=7123) ACCURATE CREATININE CLEARANCE IN PREDICTING GLOMERULAR FILTRATION RATE. ESTIMATED GFR IS NOT APPLICABLE FOR DIALYSIS PATIENTS. LACTIC ACID, VENOUS, WHOLE [id number] 05:31:00 Test Item Value Reference Range Comments LACTATE BLOOD VENOUS (2) (BEAKER) (test 0.8 mmol/L 0.5-2.2 zdmn=2942) Effective 01/01/2016: Units/Reference Range ChangeNew: 0.5-2.2 mmol/L Previous: 5 -20 mg/[id number] 05:20:00 Test Item Value Reference Range Comments PARTIAL THROMBOPLASTIN TIME (BEAKER) (test 35.9 seconds 22.5-36.0 kzzq=413) PROTHROMBIN TIME/[id number] 05:19:00 Test Item Value Reference Range Comments PROTIME (BEAKER) (test qijo=488) 16.4 seconds 11.7-14.7 INR (BEAKER) (test frqh=667) 1.3 <=5.9 RECOMMENDED COUMADIN/WARFARIN INR THERAPY RANGESSTANDARD DOSE: 2.0 - 3.0 Includes: PROPHYLAXIS forvenous thrombosis, systemic embolization; TREATMENT for venous thrombosis and/or pulmonary embolus.HIGH RISK: Target INR is 2.5-3.5 for patients with mechanical heart valves.CBC W/PLT COUNT & AUTO [id number] 05:08:00 Test Item Value Reference Range Comments WHITE BLOOD CELL COUNT 12.2 K/ L 3.5-10.5 (BEAKER) (test ecld=154) RED BLOOD CELL COUNT (BEAKER) 4.90 M/ L 3.93-5.22 (test qluz=257) HEMOGLOBIN (BEAKER) (test 10.6 GM/DL 11.2-15.7 dcdg=654) HEMATOCRIT (BEAKER) (test 36.6 % 34.1-44.9 htiy=257) MEAN CORPUSCULAR VOLUME 74.7 fL 79.4-94.8 (BEAKER) (test yyxe=256) MEAN CORPUSCULAR HEMOGLOBIN 21.6 pg 25.6-32.2 (BEAKER) (test pbwx=681) MEAN CORPUSCULAR HEMOGLOBIN 29.0 GM/DL 32.2-35.5 CONC (BEAKER) (test kkzq=192) RED CELL DISTRIBUTION WIDTH 20.5 % 11.7-14.4 (BEAKER) (test gnpx=721) PLATELET COUNT (BEAKER) (test 340 K/CU MM 150-450 tyck=943) MEAN PLATELET VOLUME (BEAKER) 9.4 fL 9.4-12.3 Discordant MPV result (test vscc=695) compared to previous one; Clinical correlation required. NUCLEATED RED BLOOD CELLS 0 /100 WBC 0-0 (BEAKER) (test ihse=620) NEUTROPHILS RELATIVE PERCENT 89 % (BEAKER) (test essj=424) LYMPHOCYTES RELATIVE PERCENT 5 % (BEAKER) (test wkqy=894) MONOCYTES RELATIVE PERCENT 4 % (BEAKER) (test fort=518) EOSINOPHILS RELATIVE PERCENT 2 % (BEAKER) (test ksun=054) BASOPHILS RELATIVE PERCENT 0 % (BEAKER) (test dxuj=448) NEUTROPHILS ABSOLUTE COUNT 10.83 K/ L 1.56-6.13 (BEAKER) (test cfmf=131) LYMPHOCYTES ABSOLUTE COUNT 0.60 K/ L 1.18-3.74 (BEAKER) (test chim=716) MONOCYTES ABSOLUTE COUNT 0.45 K/ L 0.24-0.36 (BEAKER) (test iuqz=352) EOSINOPHILS ABSOLUTE COUNT 0.19 K/ L 0.04-0.36 (BEAKER) (test kwaf=324) BASOPHILS ABSOLUTE COUNT 0.03 K/ L 0.01-0.08 (BEAKER) (test udnu=935) IMMATURE 1 % 0-1 GRANULOCYTES-RELATIVE PERCENT (BEAKER) (test qeya=7946) LACTIC ACID, ARTERIAL, WHOLE [id number] 02:05:00 Test Item Value Reference Range Comments LACTATE BLOOD ARTERIAL (2) 0.6 mmol/L 0.5-2.2 Specimen slightly hemolyzed (BEAKER) (test lcfl=3025) Effective 01/01/2016: Units/Reference Range ChangeNew: 0.5-2.2 mmol/L Previous: 5 -20 mg/[id number] 01:43:00 Test Item Value Reference Range Comments MAGNESIUM (BEAKER) (test 2.0 mg/dL 1.6-2.6 Specimen moderately hemolyzed vjfy=046) [id number] 01:43:00 Test Item Value Reference Range Comments PHOSPHORUS (BEAKER) (test 3.0 mg/dL 2.3-4.7 Specimen moderately hemolyzed cwkb=300) COMPREHENSIVE METABOLIC [id number] 01:43:00 Test Item Value Reference Range Comments TOTAL PROTEIN (BEAKER) 7.3 gm/dL 6.0-8.3 Specimen moderately (test rvzv=671) hemolyzed ALBUMIN (BEAKER) (test 3.3 g/dL 3.5-5.0 Specimen moderately okxp=8601) hemolyzed ALKALINE PHOSPHATASE 56 U/L 40-150 (BEAKER) (test iioe=415) BILIRUBIN TOTAL (BEAKER) 0.4 mg/dL 0.2-1.2 Specimen moderately (test ozng=648) hemolyzed SODIUM (BEAKER) (test 133 meq/L 136-145 qfjv=888) POTASSIUM (BEAKER) (test 4.5 meq/L 3.5-5.1 Specimen moderately vfoj=590) hemolyzed CHLORIDE (BEAKER) (test 108 meq/L 98-107 gaue=016) CO2 (BEAKER) (test 15 meq/L 22-29 obat=752) BLOOD UREA NITROGEN 12 mg/dL 7-21 (BEAKER) (test wfai=521) CREATININE (BEAKER) (test 0.61 mg/dL 0.57-1.25 Specimen moderately fkmo=884) hemolyzed GLUCOSE RANDOM (BEAKER) 92 mg/dL 70-105 (test imup=321) CALCIUM (BEAKER) (test 8.3 mg/dL 8.4-10.2 yofg=362) AST (SGOT) (BEAKER) (test 35 U/L 5-34 Specimen moderately pxcg=608) hemolyzed ALT (SGPT) (BEAKER) (test 14 U/L 6-55 Specimen moderately jlts=115) hemolyzed EGFR (BEAKER) (test 133 mL/min/1.73 sq ESTIMATED GFR IS NOT amfa=9648) m ACCURATE CREATININE CLEARANCE IN PREDICTING GLOMERULAR FILTRATION RATE. ESTIMATED GFR IS NOT APPLICABLE FOR DIALYSIS PATIENTS. CBC W/PLT COUNT & AUTO [id number] 01:20:00 Test Item Value Reference Range Comments WHITE BLOOD CELL COUNT (BEAKER) (test cynl=862) 21.0 K/ L 3.5-10.5 RED BLOOD CELL COUNT (BEAKER) (test wjlo=492) 3.83 M/ L 3.93-5.22 HEMOGLOBIN (BEAKER) (test sslg=945) 8.4 GM/DL 11.2-15.7 HEMATOCRIT (BEAKER) (test pxxt=678) 28.3 % 34.1-44.9 MEAN CORPUSCULAR VOLUME (BEAKER) (test vacb=427) 73.9 fL 79.4-94.8 MEAN CORPUSCULAR HEMOGLOBIN (BEAKER) (test 21.9 pg 25.6-32.2 kxtq=594) MEAN CORPUSCULAR HEMOGLOBIN CONC (BEAKER) (test 29.7 GM/DL 32.2-35.5 szry=445) RED CELL DISTRIBUTION WIDTH (BEAKER) (test 20.3 % 11.7-14.4 ogzx=443) PLATELET COUNT (BEAKER) (test ogau=397) 398 K/CU MM 150-450 MEAN PLATELET VOLUME (BEAKER) (test atcc=467) 10.2 fL 9.4-12.3 NUCLEATED RED BLOOD CELLS (BEAKER) (test 0 /100 WBC 0-0 dfgz=076) NEUTROPHILS RELATIVE PERCENT (BEAKER) (test 87 % lseu=930) LYMPHOCYTES RELATIVE PERCENT (BEAKER) (test 6 % nufo=295) MONOCYTES RELATIVE PERCENT (BEAKER) (test 6 % sftw=650) EOSINOPHILS RELATIVE PERCENT (BEAKER) (test 1 % luwf=372) BASOPHILS RELATIVE PERCENT (BEAKER) (test 0 % xszt=127) NEUTROPHILS ABSOLUTE COUNT (BEAKER) (test 18.34 K/ L 1.56-6.13 iozh=536) LYMPHOCYTES ABSOLUTE COUNT (BEAKER) (test 1.15 K/ L 1.18-3.74 ofya=895) MONOCYTES ABSOLUTE COUNT (BEAKER) (test 1.21 K/ L 0.24-0.36 xnep=960) EOSINOPHILS ABSOLUTE COUNT (BEAKER) (test 0.13 K/ L 0.04-0.36 qvyc=516) BASOPHILS ABSOLUTE COUNT (BEAKER) (test 0.06 K/ L 0.01-0.08 sblo=918) IMMATURE GRANULOCYTES-RELATIVE PERCENT (BEAKER) 1 % 0-1 (test usuv=1685)
--- OUTSIDE RECORDS SUMMARY | 2018-10-20 15:22 | XMS REPORT | Summary of Care ---
:1980 Author Name ANNIE JUAREZ M.D. Address Unavailable Unavailable , Care Team Providers Name Role Phone LARRY James, ANNIE Unavailable Unavailable LOW P.ABEKAH Fernandez Unavailable Unavailable Unavailable Unavailable Unavailable [...] TWICE DAILY Quantity: 28 Refills: 0 LOW P.A., BEKAH Start : 30-May-2018 Active Allergies and Adverse [...] Q05.7) Status: Resolved Procedures Procedure Dates Details Abdomen AP view [id number] Date: 08-Jun-2018 Abdomen AP view [id number] Date: 01-Aug-2018 Immunization Name Dates Details Immunizations not documented Social History Name Dates Details Unknown if ever smoked Vital Signs Date Test Result Details No Known Vitals to report Results Date Description Value Details Results not documented Plan of Care Name Dates Details Planned Observations Planned Goals not documented Planned Encounters Appointment; ANNIE JUAREZ M.D. On: 10-Aug-2018 8:45 Appointment; ANNIE JUAREZ M.D. On: 07-Dec-2018 10:45 Interventions Provided Labs/Procedures/ImagingGU Abdomen AP view [id number]; To Be Done: 10 Aug 2018 Instructions Name Dates Details Instructions not documented Encounters Appointment; ANNIE JUAREZ M.D. On: 15-Apr-2018 8:45 Encounter Diagnosis: Problem not documented Appointment; ANNIE JUAREZ M.D. On: 11-May-2018 10:15 Encounter Diagnosis: Problem not documented Appointment; BEKAH LOW P.A. On: 30-May-2018 10:30 Encounter Diagnosis: Problem not documented Appointment; ANNIE JUAREZ M.D. On: 08-Jun-2018 9:45 Encounter Diagnosis: Problem not documented Appointment; ANNIE JUAREZ M.D. On: 10-Aug-2018 8:45 Encounter Diagnosis: Problem not documented
--- NOTE | 2018-10-20 16:54 | RAD REPORT ---
EXAM DESCRIPTION: CT - Head Brain Wo Cont - 10/20/2018 4:41 pm CLINICAL HISTORY: Headache COMPARISON: February 2017 TECHNIQUE: Axial 5 mm thick images of the head were obtained without IV contrast. All CT scans are performed using dose optimization technique as appropriate and may include automated exposure control or mA/KV adjustment according to patient size. FINDINGS: No intracranial hemorrhage, mass, edema or shift of mid-line structures. No acute infarcti on changes seen. Shunt tubes are in place entering from the right parietal and left parietal bone. Ve ntricles are unchanged in configuration. Mastoid air cells and visualized portions of the paranasal sinuses are clear. No acute bony findings. IMPRESSION: Negative non-contrast CT head examination for acute finding. No changes from February 2017.
[2018-10-20 17:27] LABS: Protime INR 1.29
[2018-10-20 17:53] LABS: Absolute Lymphocytes (CBC) 1.9 K/uL (0.7-4.9); Absolute Monocytes 1.7 K/uL (0.1-1.3); Absolute Neutrophil 13.3 K/uL (1.8-8.0); Basophils % 0.4 % (0-1.3); Eosinophils % 0.2 % (0-4.4); Lymphocytes % 11.2 % (15.3-44.8); Monocytes % 9.9 % (3.3-12.3); RBC Red Blood Cell Count 3.44 M/uL (3.86-4.86)
[2018-10-20 17:57] LABS: Hematocrit 18.1 % (36.0-45.0)
[2018-10-20 18:10] LABS: Urine White Blood Cell Casts OK
[2018-10-20 18:12] LABS: Anisocytosis 3+; Blood Morphology Comment NOTED (NOT SEEN); Elliptocytes 3+; Hypochromasia 3+; Poikilocytosis 3+; Polychromasia 2+
--- NOTE | 2018-10-20 18:17 | RAD REPORT ---
EXAM DESCRIPTION: RAD - Chest Single View - 10/20/2018 5:44 pm CLINICAL HISTORY: FEVER Chest pain. COMPARISON: Chest Single View dated 04/11/2018; Chest Single View dated 02/28/2018; Abdomen 1 View (KUB ) dated 10/22/2017; Chest Single View dated 08/28/2017 FINDINGS: Portable technique limits examination quality. Large chronic left pleural effusion is noted with a shunt tube is seen in the left hemithorax. The ri ght lung appears grossly clear. Moderate dextroscoliosis of the thoracic spine is seen.Superior vena cava filter noted.
[2018-10-20] MEDS ORDERED: LIDOCAINE 1% MPF 30 ML VIAL ONE (18:28)
--- NOTE | 2018-10-20 19:01 | RAD REPORT ---
EXAM DESCRIPTION: RAD - Chest Single View - 10/20/2018 6:54 pm CLINICAL HISTORY: post left subclavian IV Chest pain. COMPARISON: Chest Single View dated 10/20/2018; Chest Single View dated 04/11/2018; Chest Single View dated 02/28/2018; Abdomen 1 View (KUB) dated 10/22/2017 FINDINGS: Portable technique limits examination quality. A left central venous catheter has been placed. The tip appears to be in the subclavian vein. No pneu mothorax seen.
[2018-10-20] MEDS ORDERED: FENTANYL CITR 100 MCG/2 ML ONE (19:18)
[2018-10-20] MEDS ORDERED: ACETAMINOPHEN 500 MG TAB ONE (19:20)
[2018-10-20] MEDS ORDERED: Meropenem 1 GM/100 ML BAG ONE (19:20)
[2018-10-20] MEDS ORDERED: NA CHLORIDE 0.9% 1,000 ML ONE ×2 (19:20→21:22)
[2018-10-20 20:20] LABS: ALT/SGPT 14 U/L (12-78); AST/SGOT 24 U/L (15-37); Albumin 3.4 g/dL (3.4-5.0); Alkaline Phosphatase 55 U/L (45-117); BUN Blood Urea Nitrogen 9 mg/dL (7-18); Bicarbonate 20 mmol/L (21-32); Bilirubin Direct 0.2 mg/dL (0-0.2); Bilirubin Total 0.6 mg/dL (0.2-1.0); CKMB Creatine Kinase MB < 1.0 ng/mL (0.3-3.6); Creatine Phosphokinase 35 U/L (26-192); Glucose Level 97 mg/dL (74-106); Lipase 152 U/L (73-393); Potassium 3.6 mmol/L (3.5-5.1); Protein, Total 8.1 g/dL (6.4-8.2); Sodium Level 140 mmol/L (136-145); Troponin (Emerg Dept Use Only) < 0.02 ng/mL (0.0-0.045)
[2018-10-20] MEDS ORDERED: HYDROMORPHONE HCL 0.5 MG/0.5 ML INJ ONE (21:22)
[2018-10-20] MEDS ORDERED: Mastisol Adhesive Liq ONE (21:35)
[2018-10-21 00:31] LABS: Urine Bacteria 20-50 /HPF (<20); Urine Culture Reflex Order NOT NEEDED; Urine RBC <5 /HPF (NONE SEEN)
[2018-10-21] MEDS ORDERED: HYDROMORPHONE HCL 0.5 MG/0.5 ML INJ ONE (00:55)
--- NOTE | 2018-10-21 00:57 | ER ---
Nurse's Notes [facility] Name: Lelia Aquino Age: 38 yrs Sex: Female : 1980 Arrival Date: 10/20/2018 Time: 15:14 Bed 26 Private MD: Diagnosis: Other specified sepsis;Anemia in chronic diseases classified elsewhere Presentation: 10/20 15:14 Presenting complaint: Patient states: N/V fever X2 days. pt c/o headache and upper body ak1 aches. Transition of care: patient was not received from another setting of care. Onset of symptoms was October 20, 2018. Risk Assessment: Do you want to hurt yourself or someone else? Patient reports no desire to harm self or others. Initial Sepsis Screen: Does the patient meet any 2 criteria? Temp <36.0*C (96.8*F)) or > 38.3*C (100.9*F). HR > 90 bpm. Does the patient have a suspected source of infection? Yes:. Care prior to arrival: None. 15:14 Method Of Arrival: EMS: [facility] ak 15:14 Acuity: PAYTON 2 sg Triage Assessment: 15:19 General: Appears in no apparent distress. Behavior is calm, cooperative. Pain: ak1 Complains of pain in headache and upper body aches. EENT: No signs and/or symptoms were reported regarding the EENT system. Neuro: No deficits noted. Cardiovascular: Rhythm is sinus tachycardia. Respiratory: No deficits noted. GI: Abdomen is round non-distended, Reports nausea, vomiting. 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 Derm: Reports fever. Musculoskeletal: No signs and/or symptoms reported regarding the musculoskeletal system. 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:19 LMP 10/19/2018 ak1 Historical: - Allergies: 15:19 Latex, Natural Rubber; ak1 15:19 Morphine; ak1 15:19 Vancomycin; ak1 - Home Meds: 15:19 albuterol sulfate Oral [Active]; amlodipine 10 mg tab 1 tab once daily [Active]; ak1 betamethasone valerate 0.1 % Topical crea [Active]; docusate sodium 100 mg Oral cap 1 cap 2 times per day [Active]; iron sulfate 325mg PO [Active]; magnesium oxide 400 mg Oral tab 400 mg twice a day [Active]; magnesium oxide 400 mg Oral tab [Active]; metoprolol tartrate 25 mg Oral tab 0.5 tab 2 times per day [Active]; miralax PO [Active]; mometasone nasal 2 sprays once daily [Active]; mylanta [Active]; ondansetron HCl 8 mg Oral tab 1 tab 2 times per day [Active]; pantoprazole 40 mg Oral TbEC 1 tab once daily [Active]; promethazine 25 mg Oral tab 1 tab every 6 hours [Active]; sertraline 100 mg Oral tab 1 tab once daily [Active]; Xarelto 20 mg Oral tab 1 tab once daily [Active]; xopenex inhaler [Active]; - PMHx: 15:19 ADD/ADHD; Anemia; Asthma; DVT; Hypertension; Kidney stones; Osteomyelitis-L foot; ak1 osteomyolitis L foot; Sepsis; spina bifida; Upper extremity DVT- L arm; UTI; - PSHx: 15:19 Colostomy; urostomy; "multiple abdominal surgeries"; ak1 - Immunization history:: Adult Immunizations unknown. - Social history:: Smoking status: Patient/guardian denies using tobacco. - Ebola Screening: : No symptoms or risks identified at this time. Screenin:23 Abuse screen: Denies threats or abuse. Denies injuries from another. Nutritional ak1 screening: No deficits noted. Tuberculosis screening: No symptoms or risk factors identified. Fall Risk None identified. Assessment: 15:50 Reassessment: No changes from previously documented assessment. pt cleaned and new tl3 sanitary pad in place, sheets changed. 17:00 Reassessment: Report received from Mnierva URBAN. sg 18:16 Reassessment: Ximena LARSON, Froylan LARSON at bedside for insertion of central line insertion.sg 18:30 Reassessment: a subclavian venous access device has been placed at this time by sg , awaiting chest Xray to verify placement prior to access the line at this time. 20:00 Reassessment: Patient appears in no apparent distress at this time. Patient and/or sg family updated on plan of care and expected duration. Pain level reassessed. Patient is alert, oriented x 3, equal unlabored respirations, skin warm/dry/pink. reports pain is unchanged at this time, C.Page has been notified and pt was medicated as ordered Patient states feeling better. 21:50 Reassessment: pt pain is better controlled, pt cleaned, catheter stoma cleaned, new tl3 collection bag placed, pt cleaned and bedding changed. 23:29 Reassessment: Patient and/or family updated on plan of care and expected duration. Pain tl3 level reassessed. Patient is alert, oriented x 3, equal unlabored respirations, skin warm/dry/pink. pt returned from CT, IV site was painful during IV infusion in CT. 23:50 Reassessment: No changes from previously documented assessment. Patient and/or family tl3 updated on plan of care and expected duration. Pain level reassessed. Patient is alert, oriented x 3, equal unlabored respirations, skin warm/dry/pink. Burton Page at bedside discussing POC, Subclavian IV to be DC'd and midline placed per Samantha URBAN. 10/21 01:00 Reassessment: Patient appears in no apparent distress at this time. No changes from tl3 previously documented assessment. Patient and/or family updated on plan of care and expected duration. Pain level reassessed. Patient is alert, oriented x 3, equal unlabored respirations, skin warm/dry/pink. meal provided, subclavian line removed, pressure held and occlusive pressure dressing applied, no bleeding noted. Vital Signs: 10/20 15:14 BP 107 / 84 RA (auto/reg); Pulse 123; Resp 23; Pulse Ox 100% on R/A; Pain 8/10; tl3 15:19 BP 118 / 72; Pulse 126; Resp 20; Temp 102.7(O); Pulse Ox 100% ; Weight 65.32 kg (R); ak1 Height 5 ft. 0 in. (152.40 cm); Pain 9/10; 15:50 BP 107 / 73; Pulse 124; Resp 18; Pulse Ox 100% on R/A; tl3 17:20 BP 110 / 70; Pulse 126; Resp 26 S; Pulse Ox 99% on R/A; sg 18:20 BP 115 / 68; Pulse 115; Resp 30 S; Temp 101.2; Pulse Ox 100% ; Pain 7/10; sg 19:59 Temp 99.8; sg 20:10 BP 113 / 62; Pulse 109; Resp 17; Temp 99.8; Pulse Ox 100% on R/A; Pain 6/10; sg 21:50 Pulse 108; Resp 18; Pulse Ox 100% ; tl3 23:29 BP 120 / 86; Pulse 105; Resp 18; Pulse Ox 100% on R/A; tl3 10/21 01:00 BP 123 / 81; Pulse 99; Resp 18; Pulse Ox 100% on R/A; tl3 10/20 15:19 Body Mass Index 28.12 (65.32 kg, 152.40 cm) ak1 Vitals: 10/20 20:10 Cardiac Rhythm Assessment Sinus tach. sg ED Course: 15:14 Patient arrived in ED. ak1 15:15 Triage completed. ak1 15:19 Arm band placed on Patient placed in an exam room, on a stretcher, on neurological physiotherapist, ak1 on pulse oximetry, Patient notified of wait time Patient's private physician notified. 15:24 Patient has correct armband on for positive identification. Placed in gown. Bed in low ak1 position. Call light in reach. Side rails up X2. doll maker on. Pulse ox on. NIBP on. 15:43 Burton Mcqueen PA is PHCP. cp 15:43 Aris Leggett MD is Attending Physician. cp 15:48 Minerva Benavides RN is Primary Nurse. tl3 15:50 No provider procedures requiring assistance completed. Initial lab(s) drawn, by me, tl3 sent to lab. Urine collected: Brown catheter specimen, cloudy, sediment noted. Inserted saline lock: 24 gauge in left ,using aseptic technique. shoulder. IV discontinued, intact, bleeding controlled, No redness/swelling at site. Pressure dressing applied, IV infiltrated when flushed after blood was obtained. 15:55 Repositioned patient. Cleaned of incontinence. Linen changed. One-on-one care X 30 tl3 minutes. 16:[address] sj 16:41 CT completed. Patient tolerated procedure well. Patient moved back from CT. nj 16:44 CT Head Brain wo Cont In Process Unspecified. EDMS 17:46 Chest Single View XRAY In Process Unspecified. EDMS 18:00 Notified Nurse Practitioner and/or Physician Metal Loader of a critical lab result(s), Hgb sg 4.6, Hct 18.1, Plt 41 but results may change per minilab operator. 19:00 XRAY Chest (1 view) In Process Unspecified. EDMS 19:02 Notified Nurse Practitioner and/or Physician Metal Loader of a critical lab result(s), ak1 platelets 712. 21:46 Oral contrast given. vm2 10/21 00:30 Inserted 18 gauge 10 cm midline to right upper arm brachial vein on first attempt. Line fc with good blood return and flushes well. Pt tolerated it well. 00:55 Bentley Phan MD is Hospitalizing Provider. cp 00:59 CT Abd/Pelvis - W/Contrast Sent. tl3 01:00 IV discontinued, intact, bleeding controlled, No redness/swelling at site. Pressure tl3 dressing applied. 02:09 Urine Dipstick--Ancillary (enter results) Sent. tl3 02:09 Type And Screen Sent. tl3 02:09 LAB Add On Sent. tl3 02:10 Patient admitted, IV remains in place. tl3 Administered Medications: 10/20 19:00 Drug: Acetaminophen 1000 mg Route: PO; sg 19:59 Follow up: Temp 99.8; Response: No adverse reaction; Temperature is decreased sg 19:00 Drug: NS 0.9% 1000 ml Route: IV; Rate: 1 bolus; Site: left subclavian; sg 20:00 Follow up: IV Status: Completed infusion; IV Intake: 1000ml tl3 19:00 Drug: fentaNYL (PF) 25 mcg Route: IVP; Site: left subclavian; sg 19:50 Follow up: Response: No adverse reaction; Pain is unchanged, physician notified sg 19:00 Drug: Meropenem 1 grams Route: IV; Rate: calculated rate; Site: left subclavian; sg 19:30 Follow up: Response: No adverse reaction; IV Status: Completed infusion sg 19:58 Drug: fentaNYL (PF) 25 mcg Route: IVP; Site: left subclavian; sg 23:11 Follow up: Response: No change in condition tl3 21:09 Drug: Dilaudid 0.5 mg Route: IVP; Site: left subclavian; tl3 23:11 Follow up: Response: Marked relief of symptoms tl3 21:09 Drug: NS 0.9% 1000 ml Route: IV; Rate: 125 ml/hr; Site: left subclavian; Delivery: tl3 Primary tubing; 10/21 02:11 Follow up: IV Status: Infusion continued upon admission; IV Intake: 350ml tl3 00:53 Drug: Dilaudid 0.5 mg Route: IVP; Infused Over: 1 mins; Site: right upper arm; tl3 01:55 Follow up: Response: Pain is decreased tl3 Intake: 10/20 20:00 IV: 1000ml; Total: 1000ml. tl3 02 02:11 IV: 350ml; Total: 1350ml. tl3 Outcome: 00:56 Decision to Hospitalize by Provider. cp 02:10 Admitted to Med/surg accompanied by tech, via stretcher, with chart, Report called to tl3 Jenifer UBRAN 02:10 Condition: stable 02:10 Instructed on the need for admit. 02:29 Patient left the ED. fc Signatures: Dispatcher [employer] EDMS Javid Navarrete, RN RN Thea Nobles Felicia, RN RN Addie Rodriguez RN RN ak1 Burton Mcqueen PA PA Karlos Casey Victoria [facility] Minerva Benavides, RAJNI RN tl3 Corrections: (The following items were deleted from the chart) 10/20 18:01 15:14 Acuity: PAYTON 3 ak1 sg 23:12 23:08 NS 0.9% 1000 ml IV at 125 ml/hr in left subclavian via Primary tubing tl3 tl3
--- NOTE | 2018-10-21 00:58 | EDPHYS ---
Physician Documentation [facility] Name: Leila Aquino Age: 38 yrs Sex: Female : 1980 Arrival Date: 10/20/2018 Time: 15:14 Bed 26 Private MD: ED Physician Arsi Leggett HPI: 10/20 15:55 This 38 yrs old Black Female presents to ER via EMS with complaints of nausea/vomiting, cp fever. 15:55 The patient reports fever, with an emergency department temperature of 102.7 degrees cp Fahrenheit. Onset: The symptoms/episode began/occurred yesterday. 15:55 Associated signs and symptoms: Pertinent positives: cough, headache, nausea, vomiting. cp 15:55 Severity of symptoms: in the emergency department the symptoms are unchanged despite cp home interventions. 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/19/2018 ak1 Historical: - Allergies: 15:19 Latex, Natural Rubber; ak1 15:19 Morphine; ak1 15:19 Vancomycin; ak1 - Home Meds: 15:19 albuterol sulfate Oral [Active]; amlodipine 10 mg tab 1 tab once daily [Active]; ak1 betamethasone valerate 0.1 % Topical crea [Active]; docusate sodium 100 mg Oral cap 1 cap 2 times per day [Active]; iron sulfate 325mg PO [Active]; magnesium oxide 400 mg Oral tab 400 mg twice a day [Active]; magnesium oxide 400 mg Oral tab [Active]; metoprolol tartrate 25 mg Oral tab 0.5 tab 2 times per day [Active]; miralax PO [Active]; mometasone nasal 2 sprays once daily [Active]; mylanta [Active]; ondansetron HCl 8 mg Oral tab 1 tab 2 times per day [Active]; pantoprazole 40 mg Oral TbEC 1 tab once daily [Active]; promethazine 25 mg Oral tab 1 tab every 6 hours [Active]; sertraline 100 mg Oral tab 1 tab once daily [Active]; Xarelto 20 mg Oral tab 1 tab once daily [Active]; xopenex inhaler [Active]; - PMHx: 15:19 ADD/ADHD; Anemia; Asthma; DVT; Hypertension; Kidney stones; Osteomyelitis-L foot; ak1 osteomyolitis L foot; Sepsis; spina bifida; Upper extremity DVT- L arm; UTI; - PSHx: 15:19 Colostomy; urostomy; "multiple abdominal surgeries"; ak1 - Immunization history:: Adult Immunizations unknown. - Social history:: Smoking status: Patient/guardian denies using tobacco. - Ebola Screening: : No symptoms or risks identified at this time. ROS: 16:05 Constitutional: Positive for fever, poor PO intake. cp 16:05 Eyes: Negative for injury, pain, redness, and discharge. cp 16:05 ENT: Negative for drainage from ear(s), ear pain, sore throat, difficulty swallowing, difficulty handling secretions. 16:05 Cardiovascular: Negative for chest pain. 16:05 Respiratory: Positive for cough, Negative for wheezing. 16:05 Abdomen/GI: Positive for nausea and vomiting, Negative for constipation, black/tarry stool. 16:05 Neuro: Positive for headache, Negative for altered mental status, speech changes. 16:05 All other systems are negative. Exam: 16:15 Constitutional: The patient appears in no acute distress, alert, awake, cp non-diaphoretic, non-toxic, well developed, well nourished. 16:15 Head/Face: Normocephalic, atraumatic. Eyes: Pupils equal round and reactive to light, cp extra-ocular motions intact. Lids and lashes normal. Conjunctiva and sclera are non-icteric and not injected. Cornea within normal limits. Periorbital areas with no swelling, redness, or edema. ENT: Nares patent. No nasal discharge, no septal abnormalities noted. Tympanic membranes are normal and external auditory canals are clear. Oropharynx with no redness, swelling, or masses, exudates, or evidence of obstruction, uvula midline. Mucous membranes moist. Neck: Trachea midline, no thyromegaly or masses palpated, and no cervical lymphadenopathy. Supple, full range of motion without nuchal rigidity, or vertebral point tenderness. No Meningismus. Chest/axilla: Normal chest wall appearance and motion. Nontender with no deformity. No lesions are appreciated. 16:15 Cardiovascular: Rate: tachycardic, Rhythm: regular, Pulses: Pulses are 2+ in right radial artery and left radial artery. 16:15 Respiratory: the patient does not display signs of respiratory distress, Respirations: labored breathing, is not present, accessory muscle usage, is absent, splinting, is not noted, tachypnea, is not appreciated, no increased workload of breathing, Breath sounds: decreased breath sounds, that are moderate, are heard in the left posterior lower lobe, stridor, is not appreciated, wheezing: is not appreciated. 16:15 Abdomen/GI: Inspection: distension, is not seen, obese scar(s), are noted in the right lower quadrant and left lower quadrant, Bowel sounds: active, all quadrants, Palpation: soft, in all quadrants, mild abdominal tenderness, in all quadrants, Hernia: noted in the lower abdomen, incarceration, is not appreciated, noted colostomy RLQ and urostomy LLQ. 16:15 Back: CVA tenderness, is absent. 16:15 Skin: cellulitis, is not appreciated, no rash present. 16:15 Neuro: Orientation: to person, place \\T\\ time. Mentation: is normal, Cerebellar function: Romberg testing is negative, normal finger to nose testing, Motor: moves upper extremities w/o restriction, paralysis of lower extremities. Vital Signs: 15:14 BP 107 / 84 RA (auto/reg); Pulse 123; Resp 23; Pulse Ox 100% on R/A; Pain 8/10; tl3 15:19 BP 118 / 72; Pulse 126; Resp 20; Temp 102.7(O); Pulse Ox 100% ; Weight 65.32 kg (R); ak1 Height 5 ft. 0 in. (152.40 cm); Pain 9/10; 15:50 BP 107 / 73; Pulse 124; Resp 18; Pulse Ox 100% on R/A; tl3 17:20 BP 110 / 70; Pulse 126; Resp 26 S; Pulse Ox 99% on R/A; sg 18:20 BP 115 / 68; Pulse 115; Resp 30 S; Temp 101.2; Pulse Ox 100% ; Pain 7/10; sg 19:59 Temp 99.8; sg 20:10 BP 113 / 62; Pulse 109; Resp 17; Temp 99.8; Pulse Ox 100% on R/A; Pain 6/10; sg 21:50 Pulse 108; Resp 18; Pulse Ox 100% ; tl3 23:29 BP 120 / 86; Pulse 105; Resp 18; Pulse Ox 100% on R/A; tl3 10/21 01:00 BP 123 / 81; Pulse 99; Resp 18; Pulse Ox 100% on R/A; tl3 10/20 15:19 Body Mass Index 28.12 (65.32 kg, 152.40 cm) ak1 MDM: 10/20 15:48 Patient medically screened. 17:00 Differential diagnosis: bronchitis, pneumonia UTI, meningitis, sepsis. 10/21 00:45 Data reviewed: vital signs, nurses notes, lab test result(s), radiologic studies, CT cp scan, plain films. 00:45 Counseling: I had a detailed discussion with the patient and/or guardian regarding: the historical points, exam findings, and any diagnostic results supporting the discharge/admit diagnosis, lab results, radiology results, the need for further work-up and treatment in the hospital. Response to treatment: the patient's symptoms have markedly improved after treatment. 00:45 Physician consultation: Bentley Phan MD was called at 00:30, was contacted at 00:30, regarding admission, to the telemetry unit. patient's condition, and will see patient in ED. 10/20 15:52 Order name: Influenza Screen (a \\T\\ B); Complete Time: 17:07 10/20 17:07 Interpretation: Reviewed. 10/20 15:52 Order name: Urine Culture 10/20 15:52 Order name: Basic Metabolic Panel; Complete Time: 20:54 10/20 20:54 Interpretation: Normal except: CL 109; CO2 20. 10/20 15:52 Order name: Blood Culture Adult (2) 10/20 15:52 Order name: CBC with Diff; Complete Time: 19:11 10/20 23:03 Interpretation: Normal except: WBC 17.0; RBC 3.44; HGB 4.6; HCT 18.1; MCV 52.7; MCH cp 13.4; MCHC 25.3; RDW 25.0; BETO% 78.3; LYM% 11.2; NEUT A 13.3; MNA 1.7; PLT 712. 10/20 15:52 Order name: Ckmb; Complete Time: 20:54 10/20 15:52 Order name: CPK; Complete Time: 20:54 10/20 15:52 Order name: Lactate; Complete Time: 20:54 10/20 15:52 Order name: LFT's; Complete Time: 20:54 10/20 15:52 Order name: Lipase; Complete Time: 20:54 10/20 15:52 Order name: Procalcitonin; Complete Time: 18:38 10/20 18:55 Interpretation: Abnormal: Procalcitonin 0.74. 10/20 15:52 Order name: Protime (+inr); Complete Time: 18:38 10/20 15:52 Order name: Ptt, Activated; Complete Time: 18:38 10/20 15:52 Order name: Troponin (emerg Dept Use Only); Complete Time: 20:54 10/20 15:52 Order name: Urine Microscopic Only; Complete Time: 00:43 10/21 00:43 Interpretation: Normal except: UWBC >50; UBACT 20-50. 10/20 15:52 Order name: Chest Single View XRAY; Complete Time: 18:38 10/20 16:29 Order name: CT Head Brain wo Cont; Complete Time: 17:07 10/20 17:08 Interpretation: Report reviewed. 10/20 17:59 Order name: CBC Smear Scan; Complete Time: 19:11 [facility] 10/20 18:41 Order name: XRAY Chest (1 view); Complete Time: 19:11 10/20 21:28 Order name: CT Abd/Pelvis - W/Contrast 10/21 01:14 Order name: Urine Dipstick--Ancillary (enter results) ia 10/21 01:21 Order name: Urine Dipstick-Ancillary [facility] 10/21 01:26 Order name: Type And Screen 10/21 01:26 Order name: LAB Add On 10/20 15:52 Order name: Urine Test (obtain specimen); Complete Time: 17:10 10/20 15:52 Order name: Accucheck; Complete Time: 19:27 10/20 15:52 Order name: Cardiac monitoring; Complete Time: 17:06 10/20 15:52 Order name: EKG - Nurse/Tech; Complete Time: 17:06 10/20 15:52 Order name: IV Saline Lock - Large Bore; Complete Time: 19:03 10/20 15:52 Order name: Labs collected and sent; Complete Time: 19:03 10/20 15:52 Order name: O2 Per Protocol; Complete Time: 17:06 cp 10/20 15:52 Order name: O2 Sat Monitoring; Complete Time: 17:06 cp 10/20 15:52 Order name: Urine Dipstick-Ancillary (obtain specimen); Complete Time: 17:06 cp Administered Medications: 10/20 19:00 Drug: Acetaminophen 1000 mg Route: PO; sg 19:59 Follow up: Temp 99.8; Response: No adverse reaction; Temperature is decreased sg 19:00 Drug: NS 0.9% 1000 ml Route: IV; Rate: 1 bolus; Site: left subclavian; sg 20:00 Follow up: IV Status: Completed infusion; IV Intake: 1000ml tl3 19:00 Drug: fentaNYL (PF) 25 mcg Route: IVP; Site: left subclavian; sg 19:50 Follow up: Response: No adverse reaction; Pain is unchanged, physician notified sg 19:00 Drug: Meropenem 1 grams Route: IV; Rate: calculated rate; Site: left subclavian; sg 19:30 Follow up: Response: No adverse reaction; IV Status: Completed infusion sg 19:58 Drug: fentaNYL (PF) 25 mcg Route: IVP; Site: left subclavian; sg 23:11 Follow up: Response: No change in condition tl3 21:09 Drug: Dilaudid 0.5 mg Route: IVP; Site: left subclavian; tl3 23:11 Follow up: Response: Marked relief of symptoms tl3 21:09 Drug: NS 0.9% 1000 ml Route: IV; Rate: 125 ml/hr; Site: left subclavian; Delivery: tl3 Primary tubing; 10/21 02:11 Follow up: IV Status: Infusion continued upon admission; IV Intake: 350ml tl3 00:53 Drug: Dilaudid 0.5 mg Route: IVP; Infused Over: 1 mins; Site: right upper arm; tl3 01:55 Follow up: Response: Pain is decreased tl3 Disposition: 10/21/18 00:56 Hospitalization ordered by Bentley Phan for Inpatient Admission. Preliminary diagnosis are Other specified sepsis, Anemia in chronic diseases classified elsewhere. - Bed requested for Telemetry/MedSurg (Inpatient). - Status is Inpatient Admission. fc - Condition is Stable. - Problem is new. - Symptoms have improved. UTI on Admission? Yes Signatures: Dispatcher [employer] EDMS Javid Navarrete RN RN Samantha Meza RN RAJNI Addie Rodriguez RN RN ak1 Burton Mcqueen PA PA Minerva Benavides RN RN tl3 Mann Gregory, RN RN [id number] Corrections: (The following items were deleted from the chart) 10/20 18:39 18:39 Normal except: WBC 17.0; RBC 3.44; HGB 4.6; HCT 18.1; MCV 52.7; MCH 13.4; MCHC cp 25.3; RDW 25.0; BETO% 78.3; LYM% 11.2. cp 18:39 18:39 Normal except: WBC 17.0; RBC 3.44; HGB 4.6; HCT 18.1; MCV 52.7; MCH 13.4; MCHC cp 25.3; RDW 25.0; BETO% 78.3; LYM% 11.2; NEUT A 13.3. cp 23:03 18:39 Normal except: WBC 17.0; RBC 3.44; HGB 4.6; HCT 18.1; MCV 52.7; MCH 13.4; MCHC cp 25.3; RDW 25.0; BETO% 78.3; LYM% 11.2; NEUT A 13.3; MNA 1.7. 10/21 01:30 00:56 Hospitalization Ordered by Bentley Phan MD for Inpatient Admission. Preliminary rr5 diagnosis is Other specified sepsis; Anemia in chronic diseases classified elsewhere. Bed requested for Telemetry/MedSurg (Inpatient). Status is Inpatient Admission. Condition is Stable. Problem is new. Symptoms have improved. UTI on Admission? Yes. cp 02:29 01:30 10/21/2018 00:56 Hospitalization Ordered by Bentley Phan MD for Inpatient Admission. Preliminary diagnosis is Other specified sepsis; Anemia in chronic diseases classified elsewhere. Bed requested for Telemetry/MedSurg (Inpatient). Status is Inpatient Admission. Condition is Stable. Problem is new. Symptoms have improved. UTI on Admission? Yes. rr5
[2018-10-21 01:20] LABS: Urine Blood TRACE (NEG); Urine Glucose NEGATIVE (NEG); Urine Protein 1+ (NEG); Urine Specific Gravity 1.015 (1.005-1.030)
[2018-10-21] MEDS ORDERED: NA CHLORIDE 0.9% 1,000 ML IV SCH (02:17)
[2018-10-21 02:45] VITALS: BMI 27.8
[2018-10-21] MEDS ORDERED: ACETAMINOPHEN 500 MG TAB PO ONE (04:29)
[2018-10-21 05:17] LABS: Absolute Lymphocytes (CBC) 0.8 K/uL (0.7-4.9); Basophils % 0.3 % (0-1.3); Eosinophils % 0.4 % (0-4.4); Lymphocytes % 8.2 % (15.3-44.8); MPV 8.3 fL (7.6-11.3); Monocytes % 10.5 % (3.3-12.3); RBC Red Blood Cell Count 3.18 M/uL (3.86-4.86)
[2018-10-21 05:20] LABS: Hematocrit 16.7 % (36.0-45.0)
--- NOTE | 2018-10-21 05:32 | P.HP ---
Certification for Inpatient Patient admitted to: Inpatient With expected LOS: >2 Midnights Practitioner: I am a practitioner with admitting privileges, knowledge of patient current condition, hospital course, and medical plan of care. 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 She also has had nausea and vomting with generalized body ache. She denied diarrhea, cough or SOB. Her temp at arrival was 102.7F. Lab work remarkable for leukocytosis 17K, normal lactate but elevated procalcitonin. Her Hgb was remarkable low 4.6 mg/dl. She denied any bloody or black stools. She states that is in her period and is significantly heavy. UA abnormal consitent with UTI. She is tachycardic with stable blood pressure. Allergies morphine Allergy (Intermediate, Verified 06/25/14 20:17) Itching vancomycin Allergy (Mild, Verified 09/30/17 06:35) Itching/Hives/Rash Latex, Natural Rubber Allergy (Verified 03/06/15 22:23) Itching/Hives/Rash Home medications list reviewed: Yes Home Medications: Rivaroxaban [Xarelto] 1 tab PO DAILY #30 tablet 10/08/17 Sertraline [Zoloft*] 100 mg PO DAILY #30 tab 10/08/17 Albuterol Sulfate [Ventolin Hfa] 2 puff IH PRN PRN 10/21/18 Amlodipine Besylate 1 tab PO DAILY 10/21/18 Diphenhydramine HCl [Allergy] 1 tab PO DAILY 10/21/18 Hydrocodone 10/APAP 325 [[place] 10/325] 1 tab PO Q4HR PRN 10/21/18 Lactose-Reduced Food [Boost] 237 ml PO DAILY 10/21/18 Nitrofurantoin Monohyd/M-Cryst [Nitrofurantoin [place]-Mcr 100 mg] 1 cap PO BID Ondansetron [Zofran] 3 cap.sr PO Q4HR PRN 10/21/18 Polyethylene Glycol 3350 [Miralax] 17 gm PO DAILY PRN 10/21/18 Zolpidem Tartrate 1 tab PO BEDTIME 10/21/18 - Past Medical/Surgical History Has patient received pneumonia vaccine in the past: Yes Diabetic: No -: SPINA BIFIDA -: PRODUCT SUPPORT REPRESENTATIVE SHUNT- LEFT LUNG -: DEPRESSION -: ARTHRITIS -: HTN -: SEIZURES DISORDER -: KIDNEY STONES -: ASTHMA -: ABDOMINAL HERNIA -: UTI -: PRESSURE ULCERS -: HX OF BLOOD CLOT -: COLOSTOMY -: FOOT SX -: VAGINA RECONSRUCTION -: ILEOSTOMY -: SKIN GRAFT -: BLOOD CLOT FILTER IN ABD -: UROSTOMY -: PRODUCT SUPPORT REPRESENTATIVE SHUNT REPLACED X2 - Family History Sister -: Diabetes Father -: Heart disease, Hypertension, Other (see notes) Notes: HIGH CHOLESTEROL, [place] Mother -: Heart disease, Hypertension, Cancer Notes: CHF, PANCREATIC CANCER - Social History Smoking Status: Never smoker Alcohol use: No CD- Drugs: No Caffeine use: Yes Place of Residence: Home Review of Systems 10-point ROS is otherwise unremarkable Physical Examination - Vital Signs Temperature: 100.2 F Blood Pressure: 120/66 Pulse: 116 Respirations: 18 Pulse Ox (%): 100 - Physical Exam General: Alert, In no apparent distress HEENT: Atraumatic, PERRLA, Mucous membr. moist/pink, EOMI, Sclerae nonicteric Neck: Supple, 2+ carotid pulse no bruit, No LAD, Without JVD or thyroid abnormality Respiratory: Clear to auscultation bilaterally, Normal air movement Cardiovascular: Regular rate/rhythm, Normal S1 S2 Gastrointestinal: Normal bowel sounds, No tenderness Musculoskeletal: No tenderness Integumentary: No rashes Neurological: Normal tone, Normal affect, Abnormal strength Lymphatics: No axilla or inguinal lymphadenopathy - Studies Laboratory Data (last 24 hrs) 10/20/18 15:52: PT 15.1 H, INR 1.29, APTT 30.9 10/20/18 15:52: WBC 17.0 H, Hgb 4.6 L*, Hct 18.1 L*, Plt Count 712 H 10/20/18 11:52: Sodium 140, Potassium 3.6, BUN 9, Creatinine 0.66, Glucose 97, Total Bilirubin 0.6, AST 24, ALT 14, Alkaline Phosphatase 55, Lipase 152 Microbiology Data (last 24 hrs): 10/20/18 15:58 Nasopharnyx Influenza Type A Antigen Screen - Final 10/20/18 15:58 Nasopharnyx Influenza Type B Antigen Screen - Final Assessment and Plan - Problems (Diagnosis) (1) Sepsis Current Visit: Yes Status: Acute Qualifiers: Sepsis type: sepsis due to unspecified organism Qualified Code(s): A41.9 - Sepsis, unspecified organism (2) Acute on chronic anemia Current Visit: Yes Status: Acute (3) UTI (urinary tract infection) Current Visit: No Status: Acute Qualifiers: Urinary tract infection type: site unspecified Hematuria presence: without hematuria Qualified Code(s): N39.0 - Urinary tract infection, site not specified (4) Ileostomy in place Current Visit: No Status: Chronic (5) Spina bifida Onset Date: 09/30/17 Current Visit: No Status: Chronic Qualifiers: Presence of hydrocephalus: unspecified hydrocephalus presence - Plan Will admit the patient due to sepsis, likely secondary to UTI, star IV meropenem according to previous Cultures report. Will transfuse initially 2 UNITS of PRBC's, she potentially require more blood transfusion. Urine and blood cultures in process. - Advance Directives Does patient have a Living Will: Yes Does patient have a Durable POA for Healthcare: Yes - Code Status/Comfort Care Code Status Assessed: Yes Code Status: Full Code
[2018-10-21 05:55] LABS: BUN Blood Urea Nitrogen 8 mg/dL (7-18); Bicarbonate 21 mmol/L (21-32); Glucose Level 133 mg/dL (74-106); Potassium 3.3 mmol/L (3.5-5.1); Sodium Level 142 mmol/L (136-145)
[2018-10-21 06:24] LABS: Ferritin 5.2 ng/mL (8-388); Transferrin 290 mg/dL (200-360)
[2018-10-21] MEDS: TRAMADOL HCL 50 MG TAB PO ONE ×2 (06:34→06:44)
[2018-10-21] MEDS ORDERED: HYDROMORPHONE HCL 1 MG/ML INJ IV ONE (06:50)
[2018-10-21] MEDS ORDERED: POLYETHYL GLY 3350 17 GM/DOSE PO PRN (07:46)
[2018-10-21] MEDS ORDERED: ACETAMINOPHEN 500 MG TAB PO PRN (07:50)
[2018-10-21] MEDS ORDERED: NA CHLORIDE 0.9% 250 ML ONE ×2 (08:13→20:56)
[2018-10-21] MEDS: AMLODIPINE 5 MG TAB PO SCH (08:26)
[2018-10-21] MEDS: SERTRALINE HCL 100 MG TAB PO SCH (08:26)
[2018-10-21 08:42] LABS: Thyroid Stimulating Hormone 1.18 uIU/mL (0.360-3.740)
[2018-10-21] MEDS ORDERED: Meropenem 1000 MG/VIAL IV SCH (09:00)
[2018-10-21] MEDS ORDERED: POTASSIUM CL SA 10 MEQ TAB PO ONE (09:00)
[2018-10-21] MEDS: HYDROCODONE/APAP 10/325 TAB PO PRN ×2 (10:20→18:09)
[2018-10-21] MEDS: ENSURE ENLIVE 237 ML CAN PO SCH (11:00)
[2018-10-21] MEDS: FUROSEMIDE 20 MG/ 2ML VIAL IV SCH ×2 (11:08→16:49)
[2018-10-21] MEDS: Meropenem 1,000 MG in NA CHLORIDE 0.9% 100 ML IV SCH ×2 (11:09→16:50)
[2018-10-21] MEDS: ONDANSETRON 4 MG/2 ML VIAL IV PRN ×2 (11:55→18:09)
--- NOTE | 2018-10-21 11:56 | P.CNS ---
Date of Consult: 10/21/18 Chief Complaint: Pleural effusion and severe anemia History of Present Illness: Patient is 38 years of age recently seen in my office admitted with slight fever and severe anemia he is slightly short of breath she has had significant bleeding due to her periods denies any chest pain clear peritoneal shunt that hands in the left lung last hemoglobin as per patient was 8 Allergies morphine Allergy (Intermediate, Verified 06/25/14 20:17) Itching vancomycin Allergy (Mild, Verified 09/30/17 06:35) Itching/Hives/Rash Latex, Natural Rubber Allergy (Verified 03/06/15 22:23) Itching/Hives/Rash Home Medications: Rivaroxaban [Xarelto] 1 tab PO DAILY #30 tablet 10/08/17 Sertraline [Zoloft*] 100 mg PO DAILY #30 tab 10/08/17 Albuterol Sulfate [Ventolin Hfa] 2 puff IH PRN PRN 10/21/18 Amlodipine Besylate 1 tab PO DAILY 10/21/18 Diphenhydramine HCl [Allergy] 1 tab PO DAILY 10/21/18 Hydrocodone 10/APAP 325 [[place] 10/325] 1 tab PO Q4HR PRN 10/21/18 Lactose-Reduced Food [Boost] 237 ml PO DAILY 10/21/18 Nitrofurantoin Monohyd/M-Cryst [Nitrofurantoin [place]-Mcr 100 mg] 1 cap PO BID Ondansetron [Zofran] 3 cap.sr PO Q4HR PRN 10/21/18 Polyethylene Glycol 3350 [Miralax] 17 gm PO DAILY PRN 10/21/18 Zolpidem Tartrate 1 tab PO BEDTIME 10/21/18 - Past Medical/Surgical History Diabetic: No -: SPINA BIFIDA -: 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 -: DEPRESSION -: ARTHRITIS -: HTN -: SEIZURES DISORDER -: KIDNEY STONES -: ASTHMA -: ABDOMINAL HERNIA -: UTI -: PRESSURE ULCERS -: HX OF BLOOD CLOT -: COLOSTOMY -: FOOT SX -: VAGINA RECONSRUCTION -: ILEOSTOMY -: SKIN GRAFT -: BLOOD CLOT FILTER IN ABD -: UROSTOMY -: SENIOR MOBILE DEVELOPER SHUNT REPLACED X2 - Family History Sister Medical History: Diabetes Father Medical History: Heart disease, Hypertension, Other (see notes) Notes: HIGH CHOLESTEROL, [place] Mother Medical History: Heart disease, Hypertension, Cancer Notes: CHF, PANCREATIC CANCER - Social History Smoking Status: Unknown if ever smoked Alcohol use: No CD- Drugs: No Caffeine use: Yes Place of Residence: Home Review of Systems General: Weakness Respiratory: Shortness of Breath Gastrointestinal: Nausea Physical Examination Temp Pulse Resp BP Pulse Ox 98.9 F 111 H 18 129/71 96 10/21/18 08:00 10/21/18 11:08 10/21/18 08:00 10/21/18 11:08 10/21/18 08:00 General: Alert, Oriented x3 HEENT: Atraumatic Neck: Supple Respiratory: Diminished (Diminished air entry on the left side) Cardiovascular: Regular rate/rhythm, Normal S1 S2 Laboratory Data (last 24 hrs) 10/20/18 15:52: PT 15.1 H, INR 1.29, APTT 30.9 10/20/18 15:52: WBC 17.0 H, Hgb 4.6 L*, Hct 18.1 L*, Plt Count 712 H 10/20/18 11:52: Sodium 140, Potassium 3.6, BUN 9, Creatinine 0.66, Glucose 97, Total Bilirubin 0.6, AST 24, ALT 14, Alkaline Phosphatase 55, Lipase 152 - Problems (1) Pleural effusion Current Visit: Yes Status: Acute Plan: Patient is 38 years of age with a history of chronic 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 admitted with slightly worsening dyspnea and a slight fever she does have a chronic pleural effusion had thoracentesis in the past heavy menstrual periods I presume that is why she is very anemic with a hemoglobin of less than 5 severely iron deficient patient's white count is elevated history of spina bifida vital signs are stable oxygenation is satisfactory patient's cultures are pending I agree with meropenem if the cultures are negative consider thoracentesis on Wednesday to evaluate for infection her white count is not back to normal (2) Iron deficiency anemia Current Visit: Yes Status: Acute Plan: Patient has severe anemia secondary to iron deficiency agree with blood transfusions and iron transfusions she will need to see STAFF RADIATION THERAPIST this is secondary to menorrhagia Qualifiers: Iron deficiency anemia type: chronic blood loss Qualified Code(s): D50.0 - Iron deficiency anemia secondary to blood loss (chronic)
--- NOTE | 2018-10-21 15:53 | P.PN ---
Subjective Date of Service: 10/21/18 Primary Care Provider: Dr. Lowery; Pulmonary-Dr. Lopez Chief Complaint: Pleural effusion and severe anemia Subjective: Other (Patient appears stable. Patient getting transfusion. Patient reports history of heavy periods.) Physical Examination - Vital Signs Temperature: 98.3 F Blood Pressure: 122/76 Pulse: 108 Respirations: 17 Pulse Ox (%): 96 - Physical Exam General: Alert, In no apparent distress, Oriented x3, Cooperative HEENT: Atraumatic Neck: Supple Respiratory: Clear to auscultation bilaterally, Normal air movement Cardiovascular: Normal pulses, Regular rate/rhythm Gastrointestinal: Normal bowel sounds, Soft and benign, Other (Patient with colostomy and urostomy) Musculoskeletal: No tenderness, No warmth Neurological: Normal speech, Normal tone, Normal affect - Studies Laboratory Data (last 24 hrs) 10/20/18 15:52: PT 15.1 H, INR 1.29, APTT 30.9 10/20/18 15:52: WBC 17.0 H, Hgb 4.6 L*, Hct 18.1 L*, Plt Count 712 H 10/20/18 11:52: Sodium 140, Potassium 3.6, BUN 9, Creatinine 0.66, Glucose 97, Total Bilirubin 0.6, AST 24, ALT 14, Alkaline Phosphatase 55, Lipase 152 Microbiology Data (last 24 hrs): 10/20/18 15:58 Nasopharnyx Influenza Type A Antigen Screen - Final 10/20/18 15:58 Nasopharnyx Influenza Type B Antigen Screen - Final Medications List Reviewed: Yes Assessment & Plan Discharge Plan: Home Plan to discharge in: Greater than 2 days Physician Review Additional Text: Impression: Sepsis likely with UTI complicated with history of recurrent UTI and urostomy Right large pleural effusion complicated with spina bifida and 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 Patient on IV meropenem. Continue monitor closely. Blood and urine cultures obtained. Await analysis. Urology and pulmonology consulted. Right large pleural effusion complicated with spina bifida and EMPLOYEE RELATIONS ASSISTANT shunt: Case discussed with pulmonology who has seen the patient. No need for thoracentesis at this time. Will monitor closely. Acute on chronic iron deficiency anemia complicated with heavy menstrual periods : Patient being transfused. Likely from heavy periods. Patient denies any melena or hematemesis. Will discuss with gynecology. Hypertension: Continue with home medication. History of PE with IVC filter on chronic anti coagulation therapy: Will hold full-dose anti coagulation therapy due to anemia. Will provide DVT prophylaxis History of colostomy and urostomy: Continue care. History of nephrolithiasis: Monitor closely. Time Spent Managing Pts Care (In Minutes): 55
[2018-10-21] MEDS: ENOXAPARIN 30 MG/0.3 ML SQ SCH ×2 (16:50→16:56)
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
[2018-10-21 18:15] LABS: Hematocrit 29.5 % (36.0-45.0)
[2018-10-21] MEDS ORDERED: KCL 20 MEQ/100 mL IVPB 20 MEQ/100 ML BAG IV SCH (20:00)
[2018-10-21] MEDS: ZOLPIDEM TARTRATE 5 MG TABLET PO PRN (20:51)
[2018-10-21] MEDS: JUVEN PACKET PO SCH (20:54)
--- NOTE | 2018-10-21 20:56 | RAD REPORT ---
EXAM DESCRIPTION: CT - Abdomen Pelvis Wo Contrast - 10/21/2018 5:38 am CLINICAL HISTORY: The patient is 38 years old and is Female; ABD PAIN COMPARISON: CT of the abdomen and pelvis without contrast dated June 10, 2018, February 28, 2018. TECHNIQUE: Axial computed tomography images of the abdomen and pelvis without intravenous contrast. Sagittal and coronal reformatted images were created and reviewed. This CT exam was performed using one or more o f the following dose reduction techniques: automated exposure control, adjustment of the mA and/or kV according to patient size and/or less of iterative reconstruction technique. FINDINGS: LUNG BASES: Unremarkable. No mass. No consolidation. PLEURAL SPACE: Partially seen left pleural effusion with radiopaque tubing terminating in the left denzel ng base. ABDOMEN: LIVER: Unremarkable. GALLBLADDER AND BILE DUCTS: Unremarkable. No calcified stones. No ductal dilation. PANCREAS: Unremarkable. No ductal dilation. SPLEEN: Unremarkable. No splenomegaly. ADRENALS: Unremarkable. No mass. KIDNEYS AND URETERS: Symmetrical renal contrast excretion is seen through the ileal conduit. No obstr uction stones. No hydronephrosis. STOMACH AND BOWEL: Evidence of right lower quadrant urostomy and left lower quadrant colostomy. Enter ic contrast is seen in the stomach and proximal small bowel. No obstruction. No mucosal thickening. PELVIS: APPENDIX: No findings to suggest acute appendicitis. BLADDER: Unremarkable. No stones. REPRODUCTIVE: Very enlarged heterogenous uterus, likely fibroids. ABDOMEN and PELVIS: INTRAPERITONEAL SPACE: Unremarkable. No free air. No significant fluid collection. 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 Evidence of chronic right hip dysph agia with soft tissue density replacing the right femoral head and neck. Irregularity of the right ac etabulum is also noted. Advanced dextroscoliosis. No acute fracture. No dislocation. SOFT TISSUES: Advanced diastasis of the rectus abdominus with prolapse of the abdominal contents thro ugh a ventral. VASCULATURE: Unremarkable. No abdominal aortic aneurysm. LYMPH NODES: Unremarkable. No enlarged lymph nodes. IMPRESSION: 1. Partially seen large left pleural effusion with radiopaque tubing terminating in the left lung base. 2. Evidence of right lower quadrant urostomy and left lower quadrant colostomy. No obstruction or per foration. 3. Advanced diastasis of the rectus abdominis with prolapse of abdominal contents through ventral her zain 4. Enlarged heterogenous uterus, likely fibroids. 5. Chronic advanced right hip dysplasia. 6. 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 Electronically signed by Surendra Paniagua DO 10/21/2018 12:01 AM MANUFACTURING QUALITY ENGINEER Due to temporary technical issues with the PACS/Fluency reporting system, reports are being signed by the in house radiologist as a courtesy to ensure prompt reporting. The interpreting radiologist is f ully responsible for the content of the report.
[2018-10-21] MEDS: PHENOL 1.4% ORAL SPRAY 180ML MM PRN (21:14)
[2018-10-22] MEDS: Meropenem 1,000 MG in NA CHLORIDE 0.9% 100 ML IV SCH ×3 (01:10→18:12)
[2018-10-22] MEDS: ONDANSETRON 4 MG/2 ML VIAL IV PRN (05:12)
[2018-10-22] MEDS: HYDROCODONE/APAP 10/325 TAB PO PRN ×2 (05:12→13:16)
[2018-10-22 06:03] LABS: BUN Blood Urea Nitrogen 10 mg/dL (7-18); Bicarbonate 21 mmol/L (21-32); Glucose Level 116 mg/dL (74-106); Magnesium 1.8 mg/dL (1.8-2.4); Potassium 3.8 mmol/L (3.5-5.1); Sodium Level 142 mmol/L (136-145)
[2018-10-22 06:19] LABS: Absolute Lymphocytes (CBC) 1.7 K/uL (0.7-4.9); Absolute Monocytes 1.6 K/uL (0.1-1.3); Absolute Neutrophil 9.6 K/uL (1.8-8.0); Basophils % 0.5 % (0-1.3); Eosinophils % 3.5 % (0-4.4); Hematocrit 27.7 % (36.0-45.0); Lymphocytes % 12.9 % (15.3-44.8); MPV 9.1 fL (7.6-11.3); Monocytes % 11.7 % (3.3-12.3); RBC Red Blood Cell Count 4.41 M/uL (3.86-4.86)
[2018-10-22] MEDS ORDERED: KCL 20 MEQ/100 mL IVPB 20 MEQ/100 ML BAG IV SCH (08:00)
[2018-10-22] MEDS ORDERED: MAGNESIUM SULFATE 1 gm IVPB 1 GM/100 ML BAG IV ONE (08:00)
[2018-10-22] MEDS ORDERED: NA CHLORIDE 0.9% 250 ML ONE (08:23)
[2018-10-22] MEDS: ENSURE ENLIVE 237 ML CAN PO SCH (09:00)
[2018-10-22] MEDS: JUVEN PACKET PO SCH ×2 (09:00→20:27)
[2018-10-22] MEDS: AMLODIPINE 5 MG TAB PO SCH (09:37)
[2018-10-22] MEDS: SERTRALINE HCL 100 MG TAB PO SCH (09:37)
[2018-10-22] MEDS: NYSTATIN 500,000 UNIT/5 ML UDC PO SCH ×4 (09:46→21:32)
[2018-10-22] MEDS: HYDROMORPHONE HCL 0.5 MG/0.5 ML INJ IV PRN ×3 (09:46→20:25)
[2018-10-22] MEDS: PHENOL 1.4% ORAL SPRAY 180ML MM PRN ×4 (09:49→21:34)
--- NOTE | 2018-10-22 10:20 | P.PN ---
Subjective Date of Service: 10/22/18 Primary Care Provider: Dr. Lowery; Pulmonary-Dr. Lopez Chief Complaint: Pleural effusion and severe anemia Subjective: Doing well Physical Examination - Vital Signs Temperature: 98.0 F Blood Pressure: 135/76 Pulse: 98 Respirations: 16 Pulse Ox (%): 99 - Physical Exam General: Alert, In no apparent distress, Oriented x3, Cooperative HEENT: Atraumatic Neck: Supple Respiratory: Clear to auscultation bilaterally, Normal air movement Cardiovascular: Normal pulses, Regular rate/rhythm Gastrointestinal: Normal bowel sounds, Soft and benign, Non-distended, No rebound, No guarding Integumentary: No warmth, No cyanosis Neurological: Normal affect - Studies Medications List Reviewed: Yes Assessment & Plan Discharge Plan: Home Plan to discharge in: 48 Hours Physician Review Additional Text: Impression: Sepsis likely with UTI complicated with history of recurrent UTI and urostomy Right large pleural effusion complicated with spina bifida and SEED ANALYST shunt Acute on chronic iron deficiency anemia complicated with heavy menstrual periods Hypertension History of PE with filter on chronic anti coagulation therapy History of colostomy and urostomy History of nephrolithiasis Depression Plan: Sepsis likely with UTI complicated with history of recurrent UTI and urostomy: The patient remains on IV meropenem due to her history of resistant bacteria. Urine culture pending. / blood culture positive likely a contaminant. Urology in mentions no intervention at this time. Will hold off on PICC line until urine culture obtained. Right large pleural effusion complicated with spina bifida and SEED ANALYST shunt: Case discussed with pulmonology who has seen the patient recently. No need for thoracentesis at this time. Will monitor closely. Acute on chronic iron deficiency anemia complicated with heavy menstrual periods : Patient received 2 units of packed red blood cells. Hemoglobin significantly improved. Will monitor closely. Will maintain hemoglobin above 8.0. Will discuss case with gynecology as the patient mentions heavy menstrual cycle. Patient will likely require gynecology examination as an outpatient and follow up. If anemia continues patient may benefit with hysterectomy but with complicated history of urostomy and colostomy this may need to be done at a tertiary care center. Hypertension: Continue with home medication. Overall stable. History of PE with IVC filter on chronic anti coagulation therapy: Will restart her Xarelto. Will monitor anemia. History of colostomy and urostomy: Continue care. History of nephrolithiasis: Monitor closely. Depression: Continue with home medication Time Spent Managing Pts Care (In Minutes): 55
[2018-10-22] MEDS: RIVAROXABAN 20 MG TABLET PO SCH (18:17)
[2018-10-22 19:34] LABS: Hematocrit 34.6 % (36.0-45.0)
[2018-10-22] MEDS: DIPHENHYDRAMINE 25 MG TAB/CAP PO PRN (19:57)
[2018-10-22] MEDS: ZOLPIDEM TARTRATE 5 MG TABLET PO PRN (21:33)
[2018-10-23] MEDS: Meropenem 1,000 MG in NA CHLORIDE 0.9% 100 ML IV SCH ×3 (00:26→16:20)
[2018-10-23] MEDS: HYDROMORPHONE HCL 0.5 MG/0.5 ML INJ IV PRN ×4 (04:11→20:44)
[2018-10-23 05:28] LABS: Absolute Lymphocytes (CBC) 2.2 K/uL (0.7-4.9); Absolute Monocytes 1.6 K/uL (0.1-1.3); Absolute Neutrophil 7.2 K/uL (1.8-8.0); Basophils % 0.3 % (0-1.3); Eosinophils % 5.7 % (0-4.4); Lymphocytes % 18.6 % (15.3-44.8); Monocytes % 13.4 % (3.3-12.3); RBC Red Blood Cell Count 4.55 M/uL (3.86-4.86)
[2018-10-23 06:05] LABS: BUN Blood Urea Nitrogen 8 mg/dL (7-18); Bicarbonate 24 mmol/L (21-32); Glucose Level 92 mg/dL (74-106); Magnesium 2.2 mg/dL (1.8-2.4); Potassium 4.5 mmol/L (3.5-5.1); Sodium Level 142 mmol/L (136-145)
[2018-10-23] MEDS: JUVEN PACKET PO SCH ×2 (09:00→20:48)
[2018-10-23] MEDS: ENSURE ENLIVE 237 ML CAN PO SCH (09:00)
[2018-10-23] MEDS: SERTRALINE HCL 100 MG TAB PO SCH (09:54)
[2018-10-23] MEDS: AMLODIPINE 5 MG TAB PO SCH (09:54)
[2018-10-23] MEDS: NYSTATIN 500,000 UNIT/5 ML UDC PO SCH ×4 (09:54→20:42)
[2018-10-23] MEDS: PHENOL 1.4% ORAL SPRAY 180ML MM PRN ×3 (09:55→20:44)
--- NOTE | 2018-10-23 10:06 | P.PN ---
Subjective Date of Service: 10/23/18 Primary Care Provider: Dr. Lowery; Pulmonary-Dr. Lopez Chief Complaint: Pleural effusion and severe anemia Subjective: Improving, Doing well Physical Examination - Vital Signs Temperature: 98.6 F Blood Pressure: 114/72 Pulse: 100 Respirations: 18 Pulse Ox (%): 99 - Physical Exam General: Alert, In no apparent distress, Oriented x3, Cooperative HEENT: Atraumatic Neck: Supple Respiratory: Clear to auscultation bilaterally, Normal air movement Cardiovascular: Normal pulses, Regular rate/rhythm Gastrointestinal: Normal bowel sounds, Soft and benign, Non-distended, No tenderness, No masses, No rebound, No guarding, Other (Urostomy and colostomy in place) Musculoskeletal: No erythema, No tenderness, No warmth Integumentary: No erythema, No warmth, No cyanosis Neurological: Normal speech, Normal tone, Normal affect - Studies Medications List Reviewed: Yes Assessment & Plan Discharge Plan: Home Plan to discharge in: 24 Hours Physician Review Additional Text: Impression: Sepsis likely with UTI complicated with history of recurrent UTI and urostomy Right large pleural effusion complicated with spina bifida and 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 Urine culture pending. 1/ blood culture positive likely a contaminant. Urology in mentions no intervention at this time. Will hold off on PICC line until urine culture obtained. Hopefully urine culture will finalize within the next 24 hr to determine plan of care. If there is a need for IV antibiotic therapy and PICC line, then she prefers to continue treatment at home. May need social services manager to help arrange. I will turn the service over to Dr. Delacruz tomorrow. I will go over plan of care with her. Right large pleural effusion complicated with spina bifida and FOOD AND BEVERAGE ASSISTANT MANAGER shunt: Case discussed with pulmonology who has seen the patient recently as an outpatient. No need for thoracentesis at this time. Will monitor closely. Acute on chronic iron deficiency anemia complicated with heavy menstrual periods and prior pessary placement for vaginal prolapse: Patient received 2 units of packed red blood cells yesterday. Hemoglobin stable. Patient reports that she is on her menstrual cycle at that time. She reports heavy periods. Spoke with gynecology who will examine patient today. Will obtain pelvic ultrasound further evaluate. Patient will likely require further intervention in the future at a tertiary care center for her heavy periods as her case is complicated with Hx of chronic anticoagulation therapy/Pessary for Vaginal prolapse/Recurrent UTI with Urostomy/Acute on chronic anemia. Await recommendation by gynecology. Hypertension: Continue with home medication. Overall stable. History of PE with IVC filter on chronic anti coagulation therapy: Xarelto restarted yesterday. Continue with medication and monitor H&H. History of colostomy and urostomy: Continue care. History of nephrolithiasis: Monitor closely. Depression: Continue with home medication Time Spent Managing Pts Care (In Minutes): 55
[2018-10-23] MEDS: SOD FERRIC GLUC COMPLX/SUCROSE 125 MG in NA CHLORIDE 0.9% 100 ML IV SCH (11:16)
[2018-10-23] MEDS: HYDROCODONE/APAP 10/325 TAB PO PRN (13:58)
--- NOTE | 2018-10-23 15:40 | RAD REPORT ---
EXAM DESCRIPTION: US - Pelvis Complete - 10/23/2018 2:52 pm CLINICAL HISTORY: Vaginal bleeding COMPARISON: October 20 CT scan FINDINGS: Evaluation is limited as the bladder has been resected so there is a suboptimal window to evaluate the uterus and adnexa. Uterus measures 11 x 5 x 5 centimeters. Endometrial stripe is not well evaluated but may be mildly th ickened. A couple of fibroids suspected largest measuring 4.8 centimeters. Soft tissue structures measuring 3.9 centimeters in the right and left adnexal probably represent nor mal ovaries it. No significant free fluid is seen IMPRESSION: Fibroid uterus. Possible mild thickening of the endometrial stripe. If better evaluation of the uterus and adnexa required MRI would be recommended
[2018-10-23] MEDS: RIVAROXABAN 20 MG TABLET PO SCH (17:00)
[2018-10-23] MEDS: ZOLPIDEM TARTRATE 5 MG TABLET PO PRN (22:05)
[2018-10-24] MEDS: Meropenem 1,000 MG in NA CHLORIDE 0.9% 100 ML IV SCH ×2 (00:24→08:55)
[2018-10-24] MEDS: HYDROMORPHONE HCL 0.5 MG/0.5 ML INJ IV PRN ×3 (01:34→15:46)
[2018-10-24 04:09] VITALS: O2SAT 95
[2018-10-24] MEDS: HYDROCODONE/APAP 10/325 TAB PO PRN ×2 (04:41→12:18)
[2018-10-24] MEDS: PHENOL 1.4% ORAL SPRAY 180ML MM PRN (04:42)
--- NOTE | 2018-10-24 05:29 | CON ---
Date of Consultation: 10/23/2018 Consulting Diagnoses: Severe anemia and menorrhagia. The patient is with history of DVT and on anti coagulant. History Of Present Illness: The patient is a 38-year-old who presented with sepsis to the hospital a nd with fever. She is being empirically treated for urosepsis. She is on meropenem. Positive cultu re for enterococcus in her urine 10-100,000 on the final culture report. Blood cultures negative x2. The patient has had multiple admissions for sepsis, some of them for urosepsis. Menarche at age 7. Increasingly heavier, however, lasting 7-9 days of which first 2 days are just sp otting, followed by 5-7 days of moderate bleeding. About 3-4 pad changes per day as her heaviest. N o reports of any clots. She has been diagnosed with chronic anemia from blood loss due to her heavy periods for many years, about 20. Does not recollect being treated with any medication, contraceptiv es, or Depo in the past. She has not had a regular campus security officer, however, about 3 years ago she had been diagnosed with pelvic organ prolapse and was fitted with a pessary. The patient does not recoll ect the name of the physician or the hospital in which this physician works at this time. She has not returned for any further pessary care. She did not seem to understand the followup that was needed into her pessary; however, the patient herself has poor recollection of the sequence of ev ents and acknowledges to that. No other family members present. No documentation present at this time regarding the nature of prola pse. The patient denies any vaginal discharge. She has never been sexually active. No known abnormal Pap s; however, she does not recollect if she has had a Pap smear. The patient's history is extremely complicated, but basically, she has spina bifida for which she has been having problems. She had decubitus ulcer about 15 to 17 years ago and was admitted in the hosp ital for a prolonged amount of time somewhere in 2001 and 2002, during which time her pressure ulcer became necrotic. From what the history that she gives, this is what I can infer, that she needed mul tiple debridements, which included lower part of her buttocks, rectum, and included her vaginal tissu es as well, and possibly her bladder. At this point, she needed a diverting colostomy and urostomy s o as to have her bowel and urinary functions intact while this debridement had to be done. Once all the debridement was completed, she had a perineal reconstruction, unsure of what tissues were used. No operative notes present. The patient is a poor historian and does not understand the grafts that were used or any flaps that were used, but she has had this reconstruction and since then the patient notes that she has noticed that there have been problems with her vaginal canal and eventually 3 yea rs ago she was diagnosed with a prolapse where she was fitted with a pessary. In the past 3 years de nies any discharge, any other problems vaginally. Review of Systems: She has some shortness of breath, however, no chest pain. No other problems excepting fatigue. Past Medical History: Significant for spina bifida, hydrocephalus, seizure disorder, hypertension, D VT, depression, arthritis, chronic blood-loss anemia, pleural effusions. Past Surgical History: Includes a ventriculoperitoneal or ventriculopleural shunt x2, decubitus ulce r which led to necrosis of her perineum and multiple debridements, diverting colostomy, diverting uro stomy, anterior abdominal wall reconstruction, pelvic floor reconstruction, and multiple taps for ple ural effusion. This is as far as I can get from her history that she gave or through her chart. Family History: Significant for mother with pancreatic cancer. No breast, ovarian, uterine, or colo n cancers. Social History: No tobacco, alcohol, or drug use. Gynecologic History: As above in the HPI. Physical Examination: General: On examination, the patient is an -Japanese female with pallor. She appears to be s lightly fatigued, malnourished, short torso, completely in bed. Her both lower extremities are very thin due to atrophy from her spina bifida and nonuse of the lower extremities. HEENT: Head and neck exam unremarkable. Lungs: Diminished on the left side as compared to the right side. No adventitious sounds. Heart: Regular rate and rhythm and no extra sounds. Abdomen: Abdominal wall reconstructed. There is a large area on the anterior abdominal wall, possib ly the ventral hernia, that was repaired with a graft, unsure if there was debridement here. There i s colostomy on the left side and a urostomy on the right side. Extremities: They are thin and from disuse they had to be moved over. PELVIS: She also has hip dysplasia, so she had to roll over to one side for me to perform a pelvic e xam. So, the patient was turned to her left lateral decubitus position, and I examined her from the patient's right side, this is at the bedside with the nurse in the room helping me with turning the p atient over. After the patient was consented, then I performed a pelvic exam. There were 2 canals t hat could be seen. The pelvic floor definitely status post reconstruction and does not appear normal . The genital hiatus wide, about 5 cm, possibly a cloaca. Two canals visible; anterior one ends in a blind pouch, posterior canal 5 cm, and a #3 or #4 ring pessary appears to be in place and parallel to the floor. Multi-fibroid uterus can be palpable from the top of the vaginal canal, which is the p osterior canal. The cervix was unable to be differentiated. There is an anal dimple posteriorly, bu t there is no canal that could be discerned. The patient's pelvic diaphragm likely is the lowest par t due to her reconstruction after the debridement. Bilateral lower extremities were thin without chinmay ma or calf tenderness. NEURO: Very abnormal due to her spina bifida. Laboratory Data: Her hemoglobin was 4.6 g at admission and I am told that she has been given 2 units of blood transfusion and her hemoglobin now is 8.5. Her MCV, MCH were very low. Her platelet count , however, started at 712 and is down to like 450 now. [place] cell [place] 17008 to 11.7 at t his time. The urine culture as dictated above, enterococcus positive 10-100,000. Blood cultures neg ative. Allergies: MORPHINE, VANCOMYCIN, AND ONE MORE MEDICATION. Current Medications: Meropenem, sertraline, rivaroxaban (Xarelto) which was held and restarted last night, Ambien, Zofran, nystatin, and amlodipine. Assessment And Plan: 1.Menorrhagia. Abnormal uterine bleeding-leiomyoma. Her CT scan was reviewed and it shows multi-fi broid uterus, however, this is not extremely large. No adnexal masses were seen. This is probably t he best image I can see of the uterus. The pelvic ultrasound was not read, the report was not availa ble. However, on review of the images, it was very poorly telling of the uterine cavity. The endome trial stripe did not appear to be excessively thick, the adnexa, unremarkable ovaries. The patient h as had heavy bleeding to moderate flow throughout and has gotten worse over the past 4-5 years. So, the ideal plan would be to evaluate the endometrium with an endometrial sampling procedure, and then if it is negative, then proceed with treating her with depo-medroxyprogesterone or with an ablation i f possible. However, this patient has a complex history with deep venous thrombosis and possible pul monary embolism. I do not think that we could proceed with any Depo therapy even as a temporary awilda ure without completely understanding the recommendations from Pulmonology or Hematology about her ant icoagulation status and her underlying, if there is, coagulopathy. So, discussed my question with Dr Rebecca Bauman and he will get in touch with Dr. Lopez and we can figure the final plan. 2.Iron-deficiency anemia. This is most likely chronic from chronic blood-loss anemia. No other alvaro rces notable. Colostomy without any blood or dark stool. Urostomy without any blood either, so it c ould be just from chronic disease and chronic anemia from the blood loss. So, the patient should be transfused again if possible to optimize her somewhere around 11 g since this is a sick patient. The re is no quick treatment to completely cure her heavy bleeding. I would recommend that there should be iron t.i.d. or parenteral iron if appropriate or as appropriate. This can be determined by her pr imary team, but this bleeding problem and the correction of the anemia, these two go qalq-tr-qvoy, an d the patient needs to be referred to a tertiary care center in order for them to enable sampling and understanding how she can be taken off the anticoagulant or changed to intravenous anticoagulant lizbet t could be reversed easily while the procedure is being done once the anatomy is figured out. 3.Incomplete uterovaginal prolapse, presumably from the pessary. I have to conclude that the patien t could have prolapse. Her ring pessary was left in place because I did not know the nature of her r econstruction and the diagnosis for which she is being treated. If she had the posterior vaginal wal l all debrided, then probably her support at level 1 has been lost and that is what probably the ring pessary is taking care of after the reconstruction. So I would leave this in place at this time bec ause there is no fear of erosion either into the rectum or anteriorly into the bladder since both of these seemed to be absent in this patient. However, if there is a referral to the pelvic reconstruct catalina surgeon or a plastic surgeon, then upon review of her notes, determination can be made as to her current anatomy and plan can be made for future care. I educated the patient extensively on the need for regular pessary care every 3 months and that she needs to establish with a FIRE MANAGEMENT SPECIALIST or a pelvic floor reconstructive surgeon at a tertiary center or a FIRE MANAGEMENT SPECIALIST Clinic to have regular FIRE MANAGEMENT SPECIALIST care. 4.Deep venous thrombosis. From the prior notes, I gather that she could have a filter placed. Sukhi drake, the patient's history refers to upper extremity deep venous thrombosis on the left side during a n admission, for which she got IV antibiotics. She does not recollect a pulmonary embolus, however, the patient is not a good historian. So, I do not think that her recollection in her history is the only source. The records have to be checked during her past admissions to ensure that that is reliab le and then plan can be made about her anticoagulation therapy and then whether she needs any testing for an underlying clotting disorder. Once the determination is made about continuation or potential discontinuation of her anticoagulant therapy, then we can determine how extensive the patient needs to be treated from a FIRE MANAGEMENT SPECIALIST standpoint, and this can be figured out with the tertiary center as well. 5.Sepsis. Continue management per the primary team. I will make sure that the primary team gets th e names of some pelvic floor reconstructive surgeons at [facility] where most of her care has b een given. This is a very complex patient for our hospital to handle, especially as most of her care was in a different center, and we do not have any history that we can refer to directly without rely ing on the patient providing us the history. I believe that she would be more appropriate for transf er to [facility] if in the future she is admitted for complex problems like this. I do think t hat from a gynecologic standpoint, she is a pretty complex patient from her pelvic floor reconstructi ve standpoint, and therefore she would be better served to be taken care of in the hospital where henri or reconstruction was done and that could be taken care of by a reconstructive surgeon or plastic alessandra geon that can handle the pelvic floor. This definitely is beyond my expertise, so I have relayed this message to Dr. Bauman. I will still b e available for consultation, however, I will sign off at this time until there needs to be any other decisions to be made during her care. Appreciate the consultation. FLORA Voice ID: [id number] Report ID: [id number]
[2018-10-24] MEDS: SOD FERRIC GLUC COMPLX/SUCROSE 125 MG in NA CHLORIDE 0.9% 100 ML IV SCH (08:55)
[2018-10-24] MEDS: ENSURE ENLIVE 237 ML CAN PO SCH (08:55)
[2018-10-24] MEDS: JUVEN PACKET PO SCH (08:55)
[2018-10-24] MEDS: NYSTATIN 500,000 UNIT/5 ML UDC PO SCH ×3 (08:56→17:09)
[2018-10-24] MEDS: AMLODIPINE 5 MG TAB PO SCH (08:56)
[2018-10-24] MEDS: SERTRALINE HCL 100 MG TAB PO SCH (08:57)
[2018-10-24 09:55] VITALS: TEMP 98.2
[2018-10-24] MEDS ORDERED: AMPICILLIN SODIUM 500 MG in NA CHLORIDE 0.9% 50 ML IVPB SCH (12:00)
[2018-10-24] MEDS: DIPHENHYDRAMINE 25 MG TAB/CAP PO PRN (12:18)
--- NOTE | 2018-10-24 12:31 | P.PN ---
Subjective Date of Service: 10/24/18 Primary Care Provider: Dr. Lowery; Pulmonary-Dr. Lopez Chief Complaint: Pleural effusion and severe anemia Subjective: Improving (Gonzalez is doing better still short of breath she is transfused the fibroid uterus) Review of Systems General: Weakness Respiratory: Shortness of Breath Physical Examination - Vital Signs Temperature: 98.2 F Blood Pressure: 119/77 Pulse: 99 Respirations: 16 Pulse Ox (%): 100 - Physical Exam General: Alert, Oriented x3 Respiratory: Clear to auscultation bilaterally, Diminished - Studies Microbiology Data (last 24 hrs): 10/20/18 23:43 Catheterized Urine Justice Count - Final BETWEEN 10,000 & 100,000 CFU/ML 10/20/18 23:43 Catheterized Urine - Final Enterococcus Faecalis Medications List Reviewed: Yes Assessment & Plan - Problems (Diagnosis) (1) Pleural effusion Current Visit: Yes Status: Acute Plan: Patient has a chronic left-sided pleural effusion due to the ARMY SENIOR OFFICER shunt currently I do not think she is infected evidence of sepsis afebrile white count is minimally elevated although patient did receive blood transfusions and iron infusion thoracenteses not indicated stable to be discharged home (2) Iron deficiency anemia Current Visit: Yes Status: Acute Plan: Status post ironand blood transfusion I have advised the patient that blood count Je to be monitor or monthly basis until stay the Qualifiers: Iron deficiency anemia type: chronic blood loss Qualified Code(s): D50.0 - Iron deficiency anemia secondary to blood loss (chronic) Physician Review Additional Text: Impression: Sepsis likely with UTI complicated with history of recurrent UTI and urostomy Right large pleural effusion complicated with spina bifida and ARMY SENIOR OFFICER shunt Acute on chronic iron deficiency anemia complicated with heavy menstrual periods Hypertension History of PE with filter on chronic anti coagulation therapy History of colostomy and urostomy History of nephrolithiasis Depression Plan: Sepsis likely with UTI complicated with history of recurrent UTI and urostomy: The patient remains on IV meropenem due to her history of resistant bacteria. Urine culture pending. 09/02 blood culture positive likely a contaminant. Urology in mentions no intervention at this time. Will hold off on PICC line until urine culture obtained. Hopefully urine culture will finalize within the next 24 hr to determine plan of care. If there is a need for IV antibiotic therapy and PICC line, then she prefers to continue treatment at home. May need social studies department chair to help arrange. I will turn the service over to Dr. Delacruz tomorrow. I will go over plan of care with her. Right large pleural effusion complicated with spina bifida and ARMY SENIOR OFFICER shunt: Case discussed with pulmonology who has seen the patient recently as an outpatient. No need for thoracentesis at this time. Will monitor closely. Acute on chronic iron deficiency anemia complicated with heavy menstrual periods and prior pessary placement for vaginal prolapse: Patient received 2 units of packed red blood cells yesterday. Hemoglobin stable. Patient reports that she is on her menstrual cycle at that time. She reports heavy periods. Spoke with gynecology who will examine patient today. Will obtain pelvic ultrasound further evaluate. Patient will likely require further intervention in the future at a tertiary care center for her heavy periods as her case is complicated with Hx of chronic anticoagulation therapy/Pessary for Vaginal prolapse/Recurrent UTI with Urostomy/Acute on chronic anemia. Await recommendation by gynecology. Hypertension: Continue with home medication. Overall stable. History of PE with IVC filter on chronic anti coagulation therapy: Xarelto restarted yesterday. Continue with medication and monitor H&H. History of colostomy and urostomy: Continue care. History of nephrolithiasis: Monitor closely. Depression: Continue with home medication
[2018-10-24 17:03] VITALS: BP 126/74
[2018-10-24] MEDS: RIVAROXABAN 20 MG TABLET PO SCH (17:09)
--- NOTE | 2018-10-24 18:30 | P.DS ---
Admission Date: 10/21/18 Discharge Date: 10/24/18 Primary Care Provider: Dr. Lowery; Pulmonary-Dr. Lopez Disposition: ROUTINE DISCHARGE Discharge Condition: GOOD Reason for Admission: Pleural effusion and severe anemia - Problems (1) Urinary tract infectious disease Onset Date: 06/26/14 Status: Active (2) Acute on chronic anemia Status: Acute (3) Stage II pressure ulcer of right buttock Status: Acute (4) Chronic anticoagulation Status: Chronic (5) H/O ureterostomy Status: Chronic (6) Hypertension Status: Chronic Qualifiers: Hypertension type: essential hypertension Qualified Code(s): I10 - Essential (primary) hypertension (7) Spina bifida Onset Date: 09/30/17 Status: Chronic Qualifiers: Presence of hydrocephalus: unspecified hydrocephalus presence (8) GERD (gastroesophageal reflux disease) Status: Suspected Qualifiers: Esophagitis presence: esophagitis presence not specified Qualified Code(s) : K21.9 - Gastro-esophageal reflux disease without esophagitis Brief History of Present Illness: Ms Aquino is a 38 years old woman with history of spina bifida, DVT anticoagulated with Xarelto, nephrolithiasis requiring urostomy, she has also history of ileostomy, OPEN HEARTH DOOR LINER shunt, chronic anemia, who came to ED complaining of fever, starting yesterday morning. She also has had nausea and vomting with generalized body ache. She denied diarrhea, cough or SOB. Her temp at arrival was 102.7F. Lab work remarkable for leukocytosis 17K, normal lactate but elevated procalcitonin. Her Hgb was remarkable low 4.6 mg/dl. She denied any bloody or black stools. She states that is in her period and is significantly heavy. UA abnormal consitent with UTI. She is tachycardic with stable blood pressure. Hospital Course: Overall during the hospital stay patient remained stable The patient was initially admitted to the hospital for fever chills nausea vomiting and was found to have a urinary tract infection. Patient has extensive history of urinary tract infection given her past medical history of spina bifida and chronic colonization with multidrug resistant bugs. Patient is in UA was done and culture was done here in the hospital as well. At that time patient was started on IV meropenem and given her history of multi-drug resistant bacteria. Patient's UA however came back positive for enterococcus bacillus which was sensitive to ampicillin. Patient thus was started on penicillin V and had marked improvement in her symptoms and thus was discharged home under stable condition with a prescription of penicillin V for further treatment of UTI. Patient also was found to have acute on chronic blood loss anemia secondary to iron deficiency and menorrhagia. OBGYN was consulted here in the hospital who recommended the patient have an outpatient followup with OBGYN at the tertiary care center for possible scope and pelvic floor surgery given the extensive history of pelvic floor prolapse menorrhalgia is complicated by chronic anti coagulation use. Patient demonstrated understanding and thus was discharged home under stable condition. Vital Signs/Physical Exam: Temp Pulse Resp BP Pulse Ox 98.2 F 98 H 16 126/74 97 10/24/18 16:00 10/24/18 16:00 10/24/18 16:00 10/24/18 16:00 10/24/18 16:00 General: Alert, In no apparent distress HEENT: Atraumatic, PERRLA, EOMI Neck: Supple, JVD not distended Respiratory: Clear to auscultation bilaterally, Normal air movement Cardiovascular: Regular rate/rhythm, Normal S1 S2 Gastrointestinal: Normal bowel sounds, No tenderness Musculoskeletal: Swelling Integumentary: Skin breakdown Neurological: Normal speech, Normal tone, Normal affect Lymphatics: No axilla or inguinal lymphadenopathy Laboratory Data at Discharge: WBC 11.7 K/uL (4.3-10.9) H 10/23/18 05:18 Hgb 8.5 g/dL (12.0-15.0) L 10/23/18 05:18 Hct 29.0 % (36.0-45.0) L D 10/23/18 05:18 Plt Count 466 K/uL (152-406) H 10/23/18 05:18 PT 15.1 SECONDS (9.5-12.5) H 10/20/18 15:52 INR 1.29 10/20/18 15:52 APTT 30.9 SECONDS (24.3-36.9) 10/20/18 15:52 Sodium 142 mmol/L (136-145) 10/23/18 05:18 Potassium 4.5 mmol/L (3.5-5.1) 10/23/18 05:18 BUN 8 mg/dL (7-18) 10/23/18 05:18 Creatinine 0.52 mg/dL (0.55-1.3) L 10/23/18 05:18 Glucose 92 mg/dL (74-106) 10/23/18 05:18 Magnesium 2.2 mg/dL (1.8-2.4) 10/23/18 05:18 Total Bilirubin 0.6 mg/dL (0.2-1.0) 10/20/18 11:52 AST 24 U/L (15-37) 10/20/18 11:52 ALT 14 U/L (12-78) 10/20/18 11:52 Alkaline Phosphatase 55 U/L (45-117) 10/20/18 11:52 Lipase 152 U/L (73-393) 10/20/18 11:52 Home Medications: Rivaroxaban [Xarelto] 1 tab PO DAILY #30 tablet 10/08/17 Sertraline [Zoloft*] 100 mg PO DAILY #30 tab 10/08/17 Albuterol Sulfate [Ventolin Hfa] 2 puff IH PRN PRN 10/21/18 Amlodipine Besylate 1 tab PO DAILY 10/21/18 Diphenhydramine HCl [Allergy] 1 tab PO DAILY 10/21/18 Hydrocodone 10/APAP 325 [[place] 10/325*] 1 tab PO Q4HR PRN 10/21/18 Lactose-Reduced Food [Boost] 237 ml PO DAILY 10/21/18 Ondansetron [Zofran (Odt)*] 3 cap.sr PO Q4HR PRN 10/21/18 Polyethylene Glycol 3350 [Miralax] 17 gm PO DAILY PRN 10/21/18 Zolpidem Tartrate 1 tab PO BEDTIME 10/21/18 Penicillin V Potassium 500 mg PO DAILY #14 tablet 10/24/18 New Medications: Penicillin V Potassium 500 mg PO DAILY #14 tablet Patient Discharge Instructions: Please f.u with PCP in 1 to 2 week post discharge. Please f.u with DIRECTOR DIGITAL SALES and pelvic floor steward/stewardess in 1 to 2 days post discharge. --> Please call [facility] Pelvic rare/endangered species specialist and OBGYN clinic to make an appt with them. New medication. Pencillin V 500mg Daily for 14 days Diet: Regular Activity: Ad sha Followup: Ang Lopez MD [ACTIVE - CAN ADMIT] - Deejay Guidry MD [ACTIVE - CAN ADMIT] - Whitney Gonsalez MD [PROVISIONAL ASSOCIATE ACTIVE] - Brett Lowery MD [COURTESY - CAN ADMIT] -
== END 2018-10-24 17:55 | disposition home or self-care (01) | DRG 872 ==
LOC: ER 15:09 → ERHOLD 10-21 01:03 → 2ND 10-21 02:13
PROVIDERS: ADMIT Internal Medicine; ATTEND Family Medicine
PROC: 30233N1 Transfusion of Nonautologous Red Blood Cells into Peripheral Vein, Percutaneous Approach (ICD-10-PCS; principal; 2018-10-21)
DX: A41.9 Sepsis, unspecified organism (principal); N39.0 Urinary tract infection, site not specified; Q05.4 Unspecified spina bifida with hydrocephalus; J90 Pleural effusion, not elsewhere classified; D62 Acute posthemorrhagic anemia; Z88.1 Allergy status to other antibiotic agents; Z88.5 Allergy status to narcotic agent; Z86.718 Personal history of other venous thrombosis and embolism; Z79.01 Long term (current) use of anticoagulants; F32.9 Major depressive disorder, single episode, unspecified; G40.909 Epilepsy, unspecified, not intractable, without status epilepticus; Z93.2 Ileostomy status; D50.0 Iron deficiency anemia secondary to blood loss (chronic); Z86.711 Personal history of pulmonary embolism; Z93.3 Colostomy status; I10 Essential (primary) hypertension; N92.0 Excessive and frequent menstruation with regular cycle; N81.2 Incomplete uterovaginal prolapse; L89.312 Pressure ulcer of right buttock, stage 2; K21.9 Gastro-esophageal reflux disease without esophagitis; B95.2 Enterococcus as the cause of diseases classified elsewhere
CPT/HCPCS: 36415; 70450; 71045; 74176; 76856; 80048; 80076; 81003; 81015; 82550; 82553; 82607; 82728; 82962; 83540; 83605; 83690; 83735; 84132; 84145; 84439; 84443; 84466; 84484; 85014; 85018; 85025; 85610; 85730; 86850; 86900; 86901; 87040; 87077; 87086; 87088; 87186; 87205; 87804; 99285; J0290; J1170; J1650; J1940; J2185; J2405; J2916; J3010; J3475; J7030; P9016

== ENCOUNTER 2018-12-13 11:28 | Emergency (ER) | payer OTHER ==
--- OUTSIDE RECORDS SUMMARY | 2018-12-13 11:32 | XMS REPORT | Clinical Summary ---
:1980 Author Organization [facility] Address [address] [place] [address] Care Team Providers Name Role Phone Beverley [...] CRNA 06/10/2018 - Hospital Encounter General Internal Cta[place], Acute cystitis without hematuria; 06/13/2018 Medicine Ras Evans, Hydronephrosis with urinary obstruction due to renal calculus; Spina bifida of thoracolumbar region with hydrocephalus (HCC); Opal Becker Sepsis, due to unspecified organism (HCC); MD Valerie Right ureteral stone Rashida King MD after 12/12/2017 Social History Tobacco Use Types Packs/Day Years [...] Not on file Implants Implanted Type Area Change Lead Device Shelf Model / Identifier Expiration Date Serial / Lot Matrix Floseal Hemo W/O [id number] - [id number] Cement/Fi NAVARRO:BIOSCI [id number] / Implanted: Qty: 1 on 06/28/2018 by Hao Welch MD ller/Ramila / kalpana [id number] Procedures Procedure Name Priority Date/Time Associated Comments Diagnosis TRANSFUSE Routine 10/06/2018 5:33 LEUKO-REDUCED RED PM BLOCK STACKER BLOOD CELLS TRANSFUSION SERVICE 06/30/2018 6:01 REPORT [...] procedure are in the results section. FL CHAPLAIN IN OR 30 Routine 06/28/2018 9:20 Results [...] are in the results section. LACTIC ACID, VENOUS Routine 06/11/2018 4:54 AM Results for this CDT [...] are in the results section. LACTIC ACID, ARTERIAL Routine 06/11/2018 1:02 AM Results for this CDT [...] procedure are in the results section. after 12/12/2017 Results Transfuse Leuko-Red RBC (10/06/2018 5:33 PM BLOCK STACKER)TRANSFUSION SERVICE REPORT - SCAN (06/30/2018 6:01 PM CDT)Only the most recent of3 resultswithin the time period is included. Narrative Performed At Prepare Leuko-Red RBC (06/29/2018 11:54 PM CDT) CROSSMATCH COMPATIBLE SAFETRACE TX Unit ABO A Neg SAFETRACE TX UNIT NUMBER [id number] SAFETRACE TX Status TRANSFUSED SAFETRACE TX Blood Bank Product RED BLOOD CELLS SAFETRACE TX PRODUCT CODE [id number] SAFETRACE TX CROSSMATCH COMPATIBLE SAFETRACE TX Unit ABO A Neg SAFETRACE TX UNIT NUMBER [id number] SAFETRACE TX Status TRANSFUSED SAFETRACE TX Blood Bank Product RED BLOOD CELLS SAFETRACE TX PRODUCT CODE [id number] SAFET[place]ACE TX Specimen Other Performing Organization Address City/State/Zipcode Phone Number S[place] [place] CBC with platelet count + automated diff (06/29/2018 5:26 AM CDT)Only the most recent of9 resultswithin the time period is included. WBC 9.2 3.5 - 10.5 K/L [facility] RBC 4.41 3.93 - 5.22 M/L [facility] Hemoglobin 10.1 (L) 11.2 - 15.7 GM/DL [facility] Hematocrit 33.7 (L) 34.1 - 44.9 % [facility] MCV 76.4 (L) 79.4 - 94.[address] [facility] MCH 22.9 (L) 25.6 - 32.[address] [facility] MCHC 30.0 (L) 32.2 - 35.5 GM/DL [facility] RDW 21.2 (H) 11.7 - 14.4 % [facility] Platelets 51 (L) 150 - 450 K/CU MM [facility] MPV Comment: Unable to 9.4 - 12.3 fL [facility] report due to abnormal [facility] Platelet population distribution. nRBC 0 0 - 0 /[address] [facility] % Neutros 71 % [facility] % Lymphs 17 % [facility] % Monos 10 % [facility] % Eos 1 % [facility] % Baso 0 % [facility] # Neutros 6.59 (H) 1.56 - 6.13 K/L [facility] # Lymphs 1.59 1.18 - 3.74 K/L [facility] # Monos 0.91 (H) 0.24 - 0.36 K/L [facility] # Eos 0.07 0.04 - 0.36 K/L [facility] # Baso 0.03 0.01 - 0.08 K/L [facility] Immature 0 0 - 1 % [facility] Granulocytes-Relative [facility] Specimen Blood - Central Venous Line Performing Organization Address City/State/Zipcode Phone Number [facility] [address] [place] [address] CENTER Basic Metabolic Panel (06/29/2018 5:26 AM CDT)Only the most recent of10 resultswithin the time period is included. Sodium 137 136 - 145 meq/L [facility] Potassium 3.7 3.5 - 5.1 meq/L [facility] Chloride 112 (H) 98 - 107 meq/L [facility] CO2 17 (L) 22 - 29 meq/L [facility] BUN 7 7 - 21 mg/dL [facility] Creatinine 0.64 0.57 - 1.25 mg/dL [facility] Glucose 82 70 - 105 mg/dL [facility] Calcium 8.9 8.4 - 10.2 mg/dL [facility] EGFR 126Comment: ESTIMATED GFR IS mL/min/1.73 sq m [facility] NOT ACCURATE CREATININE [facility] CENTER CLEARANCE IN PREDICTING GLOMERULAR FILTRATION RATE. ESTIMATED GFR IS NOT APPLICABLE FOR DIALYSIS PATIENTS. Specimen Blood - Central Venous Line Performing Organization Address City/State/Zipcode Phone Number [facility] [address] [place] [address] [phone] abdomen/pelvis without iv contrast (06/29/2018 5:12 AM CDT)Only the most recent of2 resultswithin the time period is included. Narrative Performed At FINAL REPORT [email or web address] INDICATION: 37-year-old female status post recent percutaneous [...] hydroureteronephrosis and right sided urinary stones. Signed: Blake, Frederick MD Report Verified Date/Time:06/29/2018 07:41:57 Reading Location: [facility] Diagnostic Imaging Reading Room - [place] [address] Procedure Note Interface, External Ris In - [...] Report Verified Date/Time: 06/29/2018 07:41:57 Reading Location: [facility] Diagnostic Imaging Reading Room - [place] [address] Performing Organization Address City/State/Zipcode Phone Number [employer] XR chest 1 view portable / bedside (06/28/2018 12:30 PM CDT)Only the most recent of2 resultswithin the time period is included. Narrative Performed At FINAL REPORT [email or web address] TECHNIQUE: Frontal chest radiograph dated 06/28/2018. CLINICAL [...] MD Report Verified Date/Time:06/28/2018 13:37:49 Reading Location: [facility] Radiology Reading Room Procedure Note Interface, External [...] Report Verified Date/Time: 06/28/2018 13:37:49 Reading Location: [facility] Radiology Reading Room Performing Organization Address City/State/Zipcode Phone Number [facility] STONE ANALYSIS (06/28/2018 9:34 AM CDT) [...] analytical performance characteristics have been determined by [employer] [place]. It has not been cleared or approved by the US Food and Drug Administration. This assay has been validated pursuant to the CLIA regulations and is used for clinical purposes. Specimen Calculus - Kidney, Right Narrative Performed At Performing Lab [facility] *[employer] [facility], [address] [place] [address] Jaret Sanchez MD, PhD Performing Organization Address City/State/Zipcode Phone Number [facility], [place] [address] [facility]OR[facility] [address] [facility] Anaerobic culture (06/28/2018 9:28 AM CDT) Result No anaerobes isolated [facility] Specimen Calculus - Kidney, Right Performing Organization Address City/State/Zipcode Phone Number [facility] MEDICAL [address] [place] [address] CENTER Surgically obtained culture + gram stain (06/28/2018 9:28 AM CDT) Result 2+ Enterococcus species (A) [facility] Result BOWEN ALBICANS (A) [facility] Result KLEBSIELLA PNEUMONIAE [facility] PNEUMONIAE (A) [facility] CENTER Result 1+ Vancomycin resistant [facility] Enterococcus species (A) [facility] Specimen Calculus - Kidney, Right [...] species Performing Organization Address City/State/Zipcode Phone Number [facility] MEDICAL [address] [place] [address] [phone] [facility] in or 30 minute increments (06/28/2018 9:20 AM CDT) Narrative Performed At FINAL REPORT RIS History: PCNL COMPARISON: None DISCUSSION: A [...] MD Report Verified Date/Time:06/28/2018 09:43:00 Reading Location: [facility] Radiology Reading Room Procedure Note Interface, [...] Report Verified Date/Time: 06/28/2018 09:43:00 Reading Location: [facility] Radiology Reading Room Performing Organization Address City/State/Zipcode Phone Number GE RIS Type and screen, automated (06/27/2018 8:51 PM CDT) ABO/RH AUTOMATED (BEAKER) A NEGATIVE [facility] [place] Ab Scrn NEGATIVE [facility] [place] Specimen Blood Performing Organization Address City/[facility]/Zipcode Phone Number [facility] [place] [address] [place], [place] [id number] Hemoglobin and hematocrit (06/27/2018 1:50 PM CDT)Only the most recent of2 resultswithin the time period is included. Hemoglobin 6.5 (L) 11.2 - 15.7 GM/DL [facility] Hematocrit 23.1 (L) 34.1 - 44.9 % [facility] Specimen Blood - Central Venous Line Performing Organization Address [facility] Phone Number [facility] [address] [place] [address] [phone] CENTER Urine culture (06/24/2018 12:41 PM CDT)Only the most recent of4 resultswithin the time period is included. Result >100,000 col/mL Same organism has been isolated from cultures(s) of the same body site and collection date. Repeat identification and susceptibility testing performed only after consultation with the clinical microbiology laboratory. (A) [facility] Comment: MEDICAL CENTER Refer to previous culture of Enterococcus species Result 20-29,000 col/mL Same organism has been isolated from cultures(s) of the same body site and collection date. Repeat identification and susceptibility testing performed only after consultation with the clinical microbiology laboratory. (A) [facility] Comment: MEDICAL CENTER Refer to previous culture of Enterobacter cloacae Result PSEUDOMONAS AERUGINOSA (A) [facility] Result BOWEN PARAPSILOSIS (A) [facility] Specimen Urine - Urine, Voided Organism Antibiotic [...] aeruginosa Tobramycin >8: Resistant Performing Organization Address [facility] Cent[facility]ode Phone Number [facility] [address] [place] [address] [place] Urinalysis w/Microscopic + Reflex to Culture (06/12/2018 2:36 PM CDT)Only the most recent of2 resultswithin the time period is included. Color, UA [place] [facility] Clarity, UA Hazy [facility] Specific Malcom, UA 1.013 1.001 - 1.035 [facility] pH, UA 6.0 5.0 - 8.0 [facility] Protein, UA 100 mg/dL (A) Negative [facility] Glucose, UA Negative Negative [facility] Ketones, UA Trace (A) Negative [facility] Bilirubin, UA Negative Negative [facility] Blood, UA Large (A) Negative [facility] Nitrite, UA Negative Negative [facility] Leukocytes, UA Large (A) Negative [facility] Urobilinogen, UA 0.2 0.2 - 1.0 mg/dL [facility] RBC, UA >182 /HPF [facility] WBC, UA 68 /HPF [facility] Mucus Rare [facility] Specimen Source [facility] Specimen Urine - Urine, Nephrostomy Performing Organization Address [facility]/Zipcode Phone Number [facility] [address] [place] [address] CENTER IR Percutaneous Nephrostomy - Ext. Drain Placement (06/12/2018 11:48 AM CDT) Narrative Performed At FINAL REPORT [facility] Fluoroscopic and ultrasound guided right nephroureterostomy tube placement, 06/12/2018. Clinical History: Obstructing stone at the junction of the right distal ureter and ileoconduit with hydronephrosis and urosepsis. Patient has a history of spina bifida/caudal regression. Modality: Sonography and fluoroscopy Lay Midwife:Faisal Felix MD. Software Educator:None. Sedation: General anesthesia provided by the anesthesia [...] removed. The tract was dilated to 8 Yemeni. An 8.5 Yemeni by 28 cm nephroureterostomy catheter was then [...] MD Report Verified Date/Time:06/12/2018 13:43:17 Reading Location: [place] [address] Angio Body Reading Room Procedure Note Interface, External Ris In - 06/12/2018 1:45 PM CDT FINAL REPORT Fluoroscopic and ultrasound guided right nephroureterostomy tube placement, 06/12/2018. Clinical History: Obstructing stone at the junction of the right distal ureter and ileoconduit with hydronephrosis and urosepsis. Patient has a history of spina bifida/caudal regression. Modality: Sonography and fluoroscopy Lay Midwife: Faisal Felix MD. Software Educator: None. Sedation: General anesthesia provided by the [...] removed. The tract was dilated to 8 Yemeni. An 8.5 Yemeni by 28 cm nephroureterostomy catheter was then [...] Report Verified Date/Time: 06/12/2018 13:43:17 Reading Location: [facility] P048 Angio Body Reading Room Performing Organization Address City/State/Zipcode Phone Number GE RIS Body fluid culture + gram stain (06/12/2018 11:40 AM CDT) Result ENTEROBACTER CLOACAE COMPLEX (A) [facility] Comment: MEDICAL CENTER ESBL Positive AmpC Positive Result 2+ Enterococcus species (A) [facility] Result BOWEN PARAPSILOSIS (A) [facility] Gram Stain Result No organisms seen [facility] Gram Stain Result 1+ White blood cells seen [facility] Specimen Urine - Urine, Surgically Obtained Organism [...] species Vancomycin <=0.5: Susceptible Performing Organization Address [facility] Centercode Phone Number [address] [address] [phone] CENTER CBC (Hemogram only) (06/12/2018 8:07 AM CDT) WBC 8.5 3.5 - 10.5 K/L [facility] RBC 4.23 3.93 - 5.22 M/L [facility] Hemoglobin 9.1 (L) 11.2 - 15.7 GM/DL [facility] Hematocrit 31.4 (L) 34.1 - 44.9 % [facility] MCV 74.2 (L) 79.4 - 94.[address] [facility] MCH 21.5 (L) 25.6 - 32.[address] [facility] MCHC 29.0 (L) 32.2 - 35.5 GM/DL [facility] RDW 20.4 (H) 11.7 - 14.4 % [facility] Platelets Comment: Platelet clumps 150 - 450 K/CU MM [facility] present, unable to report MEDICAL CENTER true platelet. Recommend recollect using EDTA tube and blue (Citrate) tube. spoke to RN ID:[id number] nRBC 0 0 - 0 /[address] [facility] Specimen Blood Performing Organization Address City/[facility]/Zipcode Phone Number [facility] [address] [place] [address] CENTER PT/aPTT (06/12/2018 6:07 AM CDT) Protime 14.4 11.7 - 14.[address] [facility] INR 1.1 <=5.9 [facility] PTT 30.8 22.5 - 36.[address] [facility] Specimen Blood Narrative Performed At [facility] RECOMMENDED COUMADIN/WARFARIN INR THERAPY RANGES STANDARD DOSE: 2.0 - 3.0 Includes: PROPHYLAXIS for venous thrombosis, systemic embolization; TREATMENT for venous thrombosis and/or pulmonary embolus. HIGH RISK: Target INR is 2.5-3.5 for patients with mechanical heart valves. Performing Organization Address City/[facility] Cent[facility]ode Phone Number [address] [address] [phone] [place] Screen, urine (06/11/2018 11:20 AM CDT) Preg Test, Ur Negative [facility] Specimen Urine - Urine, Urostomy Performing Organization Address [facility] Phone Number [address] [address] [place] Blood culture #2 (06/11/2018 4:55 AM CDT)Only the most recent of2 resultswithin the time period is included. Result No growth in [address] [facility] Specimen Blood - Arm, Right Performing Organization Address [facility] Centercode Phone Number [address] [address] [phone] [place] Lactic acid, venous, whole blood (06/11/2018 4:54 AM CDT) Lactate, Venous 0.8 0.5 - 2.2 mmol/L [facility] Specimen Blood Narrative Performed At [facility] Effective 01/01/2016: Units/Reference Range Change New: 0.5-2.2 mmol/LPrevious: 5-20 mg/dL Performing Organization Address [facility] Centercode Phone Number [place] [phone] [place], [place] [phone] CENTER aPTT (06/11/2018 4:54 AM CDT) PTT 35.9 22.5 - 36.[address] [facility] Specimen Blood Performing Organization Address [facility] Centercosc Phone Number [address] [address] [phone] CENTER Prothrombin time/INR (06/11/2018 4:54 AM CDT) Protime 16.4 (H) 11.7 - 14.[address] [facility] INR 1.[address] <=[address]9 [facility] Specimen Blood Narrative Performed At [facility] RECOMMENDED COUMADIN/WARFARIN INR THERAPY RANGES STANDARD DOSE: 2.0 - 3.0 Includes: PROPHYLAXIS for venous thrombosis, systemic embolization; TREATMENT for venous thrombosis and/or pulmonary embolus. HIGH RISK: Target INR is 2.5-3.5 for patients with mechanical heart valves. Performing Organization Address [facility] Phone Number [address] [address] [place] Lactic acid, arterial, whole blood (06/11/2018 1:02 AM CDT) Lactate, Art 0.6Comment: Specimen 0.5 - 2.2 mmol/L [facility] slightly hemolyzed [facility] Specimen Blood, Arterial - Arm, Right Narrative Performed At [facility] Effective 01/01/2016: Units/Reference Range Change New: 0.5-2.2 mmol/LPrevious: 5-20 mg/dL Performing Organization Address [facility] Centercode Phone Number [address] [address] [phone] CENTER Phosphorus (06/11/2018 1:02 AM CDT) Phosphorus 3.0Comment: Specimen 2.3 - 4.7 mg/dL [facility] moderately hemolyzed [facility] Specimen Blood - Arm, Right Performing Organization Address City/[facility] Centercode Phone Number [facility] [address] [place] [address] [phone] CENTER Magnesium (06/11/2018 1:02 AM CDT) Magnesium 2.0Comment: Specimen 1.6 - 2.6 mg/dL [facility] hemolyzed [facility] Specimen Blood - Arm, Right Performing Organization Address [facility] Centercode Phone Number [facility] [address] [place] [address] [phone] [place] Comprehensive metabolic panel (06/11/2018 1:02 AM CDT) Protein, Total 7.3Comment: Specimen 6.0 - 8.3 gm/dL [facility] hemolyzed [facility] Albumin 3.3 (L)Comment: Specimen 3.5 - 5.0 g/dL [facility] hemolyzed [facility] Alkaline Phosphatase 56 40 - 150 U/L [facility] Total Bilirubin 0.4Comment: Specimen 0.2 - 1.2 mg/dL [facility] hemolyzed [facility] Sodium 133 (L) 136 - 145 meq/L [facility] Potassium 4.5Comment: Specimen 3.5 - 5.1 meq/L [facility] hemolyzed [facility] Chloride 108 (H) 98 - 107 meq/L [facility] CO2 15 (L) 22 - 29 meq/L [facility] BUN 12 7 - 21 mg/dL [facility] Creatinine 0.61Comment: Specimen 0.57 - 1.25 mg/dL [facility] hemolyzed [facility] Glucose 92 70 - 105 mg/dL [facility] Calcium 8.3 (L) 8.4 - 10.2 mg/dL [facility] AST 35 (H)Comment: Specimen 5 - 34 U/L [facility] moderately hemolyzed [facility] ALT 14Comment: Specimen 6 - 55 U/L [facility] moderately hemolyzed [facility] EGFR 133Comment: ESTIMATED mL/min/1.73 sq m [facility] GFR IS NOT ACCURATE [facility] CREATININE CLEARANCE IN PREDICTING GLOMERULAR FILTRATION RATE. ESTIMATED GFR IS NOT APPLICABLE FOR DIALYSIS PATIENTS. Specimen Blood - Arm, Right Performing Organization Address City/State/Zipcode Phone Number [facility] [address] [place] [address] CENTER Urinalysis w/ Microscopic (06/10/2018 11:37 PM CDT) Color, UA Yellow [facility] Clarity, UA Hazy [facility] Specific Malcom, UA 1.012 1.001 - 1.035 [facility] pH, UA 8.0 5.0 - 8.0 [facility] Protein, UA 50 mg/dL (A) Negative [facility] Glucose, UA Negative Negative [facility] Ketones, UA Negative Negative [facility] Bilirubin, UA Negative Negative [facility] Blood, UA Moderate (A) Negative [facility] Nitrite, UA Positive (A) Negative [facility] Leukocytes, UA Large (A) Negative [facility] Urobilinogen, UA 0.2 0.2 - 1.0 mg/dL [facility] RBC, UA 6 /HPF [facility] WBC, UA 10 /HPF [facility] Bacteria, UA Many [facility] Mucus [facility] Crystals, Urine Occasional [facility] Specimen Source Urine, Urostomy [facility] Specimen Urine - Urine, Urostomy Performing Organization Address City/State/Zipcode Phone Number [facility] [address] [place] [address] CENTER after 12/12/2017 Insurance Payer Benefit Plan / Group Subscriber ID Type Phone Address MEDICARE MEDICARE A B xxxxxxxxxxx Medicare MEDICAID - MEDICAID MEDICAID [employer] xxxxxxxxx Medicaid MGD CARE Non-Contracted Advance Directives For more information, please contact:[facility] [place], [place] [phone] Code Status Date Activated Date Inactivated Comments Full Code 06/24/2018 12:08 PM This code status was determined by: Patient Full Code 06/10/2018 10:09 PM 06/13/2018 4:34 PM This code status was determined by: Patient
--- OUTSIDE RECORDS SUMMARY | 2018-12-13 11:34 | XMS REPORT | Continuity of Care Document ---
[...] - [place] Constipation Active Finding 10/08/[address] [facility] [place] Asthma Active Finding 10/08/[address] [facility] [place] Hypokalemia Active Finding 10/08/[address] [facility] [place] Hypomagnesemia Active Finding 10/08/[address] [facility] [place] Urinary tract Active Finding 10/08/2017 [facility]. infection [facility] [place] USP current Active Finding 10/08/2017 [facility] use of [facility] anticoagulant [place] therapy History of Active Finding 10/08/2017 [facility]. ureterostomy [facility] [place] Ileostomy present Active Finding 10/08/2017 [facility]. [facility] [place] Medications Medication Details Route Status Patient Ordering Order Source Instructions Provider Date Ferrous Sulfate TWICE DAILY Active Prezas [facility] 2018 [facility] [place] Metoprolol DAILY AT Active Prezas [facility]. Tartrate 0600 2017 [facility] [place] Magnesium Oxide TWICE DAILY Active Prezas [facility]. 2018 [facility] [place] Amlodipine DAILY Active Prezas [facility] 2018 [facility] [place] Rivaroxaban DAILY Active Prezas [facility] 2018 [facility] [place] Sertraline DAILY Active Prezas [facility] 2018 [facility] [place] Pantoprazole DAILY Active Prezas [facility] 2018 [facility] [place] Rivaroxaban DAILY Active [facility] 2018 [facility] [place] Lorazepam TWICE DAILY Active [facility] PRN For 2015 [facility] Anxiety [place] Ciprofloxacin Hcl DAILY Active [facility] 03/16/ [facility] 2015 [facility] [place] Hydrocodone Q6H PRN For Active [facility] 03/16/ [facility] 10/Apap 325 Pain 2015 [facility] [place] Docusate TWICE DAILY Active Earl 03/11/ [facility] 2015 [facility] [place] Yash TWICE DAILY Active [facility] 03/11/ [facility] 2015 [facility] [place] Fluconazole DAILY PRN Active [facility] For YEAST 2014 [facility] INFECTION [place] Nitrofurantoin TWICE DAILY [...] 2013 [facility] [place] Sertraline DAILY Active [facility] 2013 [facility] [place] Allergies, Adverse Reactions, Alerts Substance Category Reaction Severity Reaction Status Date Comments Source type Reported morphine Itching Moderate [facility]ergy [facility] Substance 4 [facility] [place] Latex, Itching/H Allergy to Active [facility] tristan/Rash Substance 5 [facility] Rubber [place] vancomycin Itching/H Mild Allergy to Active [facility] tristan/Rash Substance 8 [facility] [place] Immunizations Immunization Date Given Site Status Last Comments Source Updated Pneumovax 11/10/2012 completed [facility] [place] Results Order Name Results Value Reference Date Interpretation Comments Source Range Laboratory Sodium Level 138 mEq/L 135 - 145 10/[address] [facility] Studies /2018 [facility] [place] Laboratory Potassium 3.3 mEq/L 3.6 - 5.0 10/[address] [facility] Studies Level /2018 [facility] [place] Laboratory Magnesium 1.6 mg/dL 1.8 - 2.5 10/08 [facility] Studies Level /2017 [facility] [place] Laboratory Glucose Level 91 mg/dL 65 - 120 10/08 [facility] Studies /2017 [facility] [place] Laboratory Estimat null 90 10/08 [facility] Studies Glomerular /2017 [facility] Filtration [place] Rate Laboratory Creatinine 0.42 mg/dL 0.44 - 10/08 [facility] Studies 1.00 [facility] [place] Laboratory Chloride 104 mEq/L 101 - 111 10/08 [facility]. Studies Level /2018 [facility] [place] Laboratory Carbon 24 mEq/L 21 - 31 10/08 [facility] Studies Dioxide Level /2017 [facility] [place] Laboratory Calcium Level 8.6 mg/dL 8.5 - 10.5 10/08 [facility]. Studies /2018 [facility] [place] Laboratory Blood Urea 9 mg/dL 6 - 20 10/08 [facility] Studies Nitrogen /2017 [facility] [place] Laboratory White Blood 8.9 K/uL 4.3 - 10.9 10/08 [facility]. Studies Count /2018 [facility] [place] Laboratory Red Cell 17.7 % 12.1 - 02 [facility]. Studies Distribution 15.2 /2017 [facility] Width [place] Laboratory Red Blood 4.41 M/uL 3.86 - 02 [facility] Studies Count 4.86 /2017 [facility] [place] Laboratory Platelet 443 K/uL 152 - 406 10/08 [facility]. Studies Count /2018 [facility] [place] Laboratory Neutrophils % 57.5 % 41.7 - 02 [facility]. Studies 73.7 /2017 [facility] [place] Laboratory Monocytes % 12.3 % 3.3 - 12.3 10/[address] [facility] Studies /2017 [facility] [place] Laboratory Mean Platelet 6.6 fL 7.6 - 11.3 10/[address] [facility] Studies Volume /2017 [facility] [place] Laboratory Mean 73.1 fL 80 - 100 10/[address] [facility] Studies Corpuscular /2017 [facility] Volume [place] Laboratory Mean 31.5 g/dL 32.0 - 02 [facility] Studies Corpuscular 36.0 /2017 [facility] Hemoglobin [place] Concent Laboratory Mean 23.0 pg 27.0 - 02 [facility]. Studies Corpuscular 35.0 /2017 [facility] Hemoglobin [place] Laboratory Lymphocytes % 26.3 % 15.3 - [address] [facility] Studies 44.8 /2017 [facility] [place] Laboratory Hemoglobin 10.1 g/dL 12.0 - 10/[address] [facility] Studies 15.0 [facility] [place] Laboratory Hematocrit 32.2 % 36.0 - [address] [facility] Studies 45.0 [facility] [place] Laboratory Eosinophils % 2.7 % 0 - 4.4 10/[address] [facility] Studies [facility] [place] Laboratory Basophils % 1.2 % 0 - 1.3 10/[address] [facility] Studies [facility] [place] Laboratory Absolute 5.1 K/uL 1.8 - 8.0 10/[address] [facility] Studies Neutrophil [facility] [place] Laboratory Absolute 1.1 K/uL 0.1 - 1.3 10/08 [facility]. Studies Monocytes [facility] - (CBC) [place] Laboratory Absolute 2.3 K/uL 0.7 - 4.9 10/[address] [facility] Studies Lymphocytes [facility] - (CBC) [place] Laboratory Absolute 0.2 K/uL 0 - 0.5 10/[address] [facility] Studies Eosinophils [facility] - (CBC) [place] Laboratory Absolute 0.1 K/uL 0 - 0.5 10/08 [facility]. Studies Basophils [facility] - (CBC) [place] Laboratory Urine Yeast Urine Yeast 10/[address] [facility] Studies [facility] [place] Laboratory Urine WBC null 10/[address] [facility] [address] Studies [facility] [place] Laboratory Urine null 10/07 St[facility] Studies Squamous /2017 [facility] - Epithelial [...] Laboratory Urine pH 6.0 10/07 St[facility] Studies /2018 [facility] [place] Laboratory Urine 1.0 mg/dL 10/07 St[facility] Studies Urobilinogen /2017 [facility] [place] Laboratory Urine Total Urine Total 10/07 St[facility] Studies Protein Protein /2017 [facility] [place] Laboratory Urine 1.015 10/07 St[facility] Studies Specific /2017 [facility] [place] Laboratory Urine Nitrite Urine 10/07 St[facility] Studies Nitrite /2017 [facility] [place] Laboratory Urine Urine 10/07 St[facility] Studies Leukocyte Leukocyte /2017 [facility] - Esterase Esterase [place] Laboratory Urine Ketones Urine 10/07 St[facility] Studies Ketones /2017 [facility] [place] Laboratory Urine Glucose Urine 10/07 St[facility] Studies Glucose [facility] [place] Laboratory Urine Color Urine Color 10/07 St[facility] Studies [facility] [place] Laboratory Urine Blood Urine [...] mg/dL 192 - 382 10/07 St[facility] Studies /2017 [facility] [place] Laboratory Total Iron 336 ug/dL 250 - 460 10/[address] [facility] Studies Binding /2017 [facility] Capacity [place] Laboratory Iron Level 31.0 ug/dL 28 - 170 10/07 St[facility] Studies /2017 [facility] [place] Laboratory Ferritin 10.3 ng/ml 11.0 - 02 [facility] Studies 306.8 /2017 [facility] [place] Laboratory Segmented 67 % 40 - 80 10/05 [facility] Studies Neutrophils /2017 [facility] [place] Laboratory Monocytes 1 % 0 - 10 10/05 [facility]. Studies [facility] - [place] Laboratory Lymphocytes 29 % 15 - 42 10/05 [facility]. Studies /2017 [facility] [place] Laboratory Eosinophils 3 % 0 - 3 10/05 [facility]. Studies [facility] [place] Laboratory Clumped Clumped 10/05 [facility] Studies Platelets Platelets [facility] Blood Blood 10/05 [facility] Studies Morphology Morphology [facility] - Comment Comment [place] Laboratory Urine Urine 10/02 [facility] Studies Phencyclidine Phencyclidi [facility] - Screen ne Screen [place] Laboratory Urine Urine 10/02 [facility] Studies Barbiturates Barbiturate /2017 [facility] - Screen s Screen [place] Laboratory Ur Ur 10/02 [facility] Studies Tetrahydrocan Tetrahydroc [facility] - nabinol (THC) annabinol [place] Scrn (THC) Scrn Laboratory Oxycodone Oxycodone 10/02 [facility] Studies Screen Screen /2017 [facility] - [place] Laboratory Opiates Opiates 10/02 [facility] Studies Screen Screen /2017 [facility] MDMA MDMA 10/02 [facility] Studies (Ecstasy) (Ecstasy) [facility] - Screen Screen [place] Laboratory Cocaine Cocaine 10/02 [facility] Studies Screen Screen /2017 [facility] - [place] Laboratory Benzodiazepin Benzodiazep 10/02 [facility] Studies es Screen brian Screen [facility] - [place] Laboratory Amphetamines Amphetamine 10/02 [facility] Studies Screen s Screen [facility] - [place] Laboratory Total 0.7 mg/dL 0.3 - 1.2 10/01 [facility] Studies Bilirubin [facility] Serum Total 7.4 g/dL 6.0 - 8.3 10/01 [facility] Studies Protein /2017 [facility] Laboratory Globulin 3.6 g/dL 2.3 - 3.5 10/[address] [facility] Studies [facility] [place] Laboratory Aspartate 27 IU/L 10 - 42 10/[address] Studies Amino Transf [facility] - (AST/SGOT) [place] Laboratory Alkaline 42 IU/L 42 - 121 10/01 St[facility] Studies Phosphatase /2017 [facility] [place] Laboratory Albumin/Globu 1.1 1.1 - 1.8 10/[address] Studies donald Ratio /2017 [facility] [place] Laboratory Albumin 3.8 g/dL 3.2 - 5.5 10/[address] Studies /2017 [facility] [place] Laboratory Alanine 17 IU/L 10 - 60 10/[address] [facility] Studies Aminotransfer [facility] ase [place] [...] [facility] [place] Microbiolog Enterobacter Enterobacte 09/28 St[facility] y Studies Cloacae r Cloacae /2017 [facility] [place] Microbiolog Enterococcus Enterococcu 09/28 St[facility] Studies Faecalis s Faecalis [facility] [place] Microbiolog Pseudomonas Pseudomonas 09/28 St[facility] Studies Aeruginosa Aeruginosa /2017 [facility] [place] Laboratory Urine Urine 09/23 [...] Creatine 30 IU/L 22 - 269 08/[address] [facility] Studies Kinase [facility] [place] Laboratory Rapid null 08/[address] [facility] Studies Troponin I /2016 [facility] [place] Laboratory Prothrombin 13.7 9.5 - 12.5 08/[address] Studies Time SECONDS [facility] [place] Laboratory INR 1.16 08/[address] [facility] Studies International /2016 [facility] Normalized [place] Ratio Laboratory Activated 26.6 24.3 - 08/[address] [facility] Studies Partial SECONDS 36.9 [facility] - Thromboplast [place] Time Laboratory Lactic Acid 7.5 mg/dL 4.5 - 19.8 08/[address] [facility] Studies Level /2016 [facility] [place] Microbiolog Klebsiella Klebsiella 07/[address] [facility] Studies Pneumoniae Pneumoniae [facility] [place] Microbiolog Enterococcus Enterococcu 07/[address] [facility] y Studies Faecalis s Faecalis [facility] [place] Laboratory Urine Triple Urine 07/[address] [facility] Studies Phosphate Triple [facility] - Crystals Phosphate [place] Crystals Laboratory Amylase Level 170 U/L 28 - 100 07/[address] [facility] Studies /2016 [facility] [place] Vital Signs Vital Sign Value Date Comments Source Height 60 10/08/[address] [facility] [place] [facility] [place] Weight 158 10/08/2017 [facility] [place] Temperature Oral (F) 97.1 F 10/08/[address] [facility] [place] Heart Rate 102 10/08/[address] [facility] [place] Respitory Rate 17 10/08/[address] [facility] [place] Systolic (mm Hg) 125 10/08/[address] [facility] [place] Diastolic (mm Hg) 78 10/08/[address] [facility] [place] Encounters Location Location Encounter Encounter Reason Attending ADM DC Status Source Details Type Number For Provider Date Date Visit [facility] [id number] 07/11 07/[address] [facility] [place] [facility] [id number] 07/30 07/[address] [facility] [place] [facility] [id number] 08/28 08/[address] [facility] [place] [facility] [id number] 09/23 09/[address] [facility] [place] [facility] [id number] 10/01 10/[address] [facility] [place] Procedures Procedure Code Date Perfomer Comments Source [place] Count [id number] [address] [facility] [place] [id number] [address] [facility] [place] Stone Protocol [id number] 09/29/[address] [facility] [place] [facility] - [place] Count [id number] 09/23/[address] [facility] [place] [id number] 09/23/[address] [facility] [place] Culture & [id number] 09/23/[address] [facility] Sensitivity [place] Abdomen & Pelvis [id number] 09/23/[address] [facility] W Contrast [place] Anaerobic Blood [id number] 08/28/[address] [facility] Culture [place] Aerobic Blood [id number] 08/28/[address] [facility] Culture [place] Count [id number] 08/28/[address] [facility] [place] [id number] 08/28/[address] [facility] [place] Chest Single View [id number] 08/28/[address] [facility] [place] Influenza Type B 08/28/[address] [facility] Antigen Screen [place] Influenza Type A 08/28/[address] [facility] Antigen Screen [place] Influenza Type B 07/30/[address] [facility] Antigen Screen [place] Influenza Type A 07/30/[address] [facility] Antigen Screen [place] Count [id number] 07/11/[address] [facility] [place] [id number] 07/11/[address] [facility] [place]
--- OUTSIDE RECORDS SUMMARY | 2018-12-13 11:35 | XMS REPORT | Summary of Care ---
:1980 Author Name BEKAH DELONG Address Unavailable Unavailable , Care Team Providers Name Role Phone DEONDRE AGUILAR M.D. Unavailable Unavailable DEVANTE Long.A.BEKAH Unavailable Unavailable DEVENDRA MASON [place], DEONDRE Unavailable Unavailable Anais MASON, Karon Unavailable Unavailable ANKITA LOCKETT MD, [place] Unavailable Unavailable Juana MASON, Bandar Unavailable Unavailable Unavailable Unavailable Unavailable Functional Status [...] Status: Active Nephrolithiasis (592.0, N20.0) Status: Active Irregular bleeding (626.4, N92.6) Status: Active Excessive bleeding (459.0, R58) Status: Active Bacterial vaginosis (616.10, N76.0) Status: Active Follow up (V67.9, Z09) Status: Active Sacral decubitus ulcer (707.03, L89.159) Status: Active Medications Name Dates Details Nabumetone 750 MG Oral Tablet Refills: 0 Active diphenhydrAMINE HCl - 25 MG Oral Capsule Refills: 0 Active Folic Acid TABS Refills: 0 Active Iron Supplement TABS Refills: 0 Active NexIUM 40 MG Oral Packet Refills: 0 Active Xopenex HFA AERO Refills: 0 Active Clindamycin Phosphate 2 % Vaginal Cream INSERT 1 APPLICATORFUL INTRAVAGINALLY AT BEDTIME Quantity: 1 Refills: 0 DEONDRE AGUILAR M.D. Start : 14-Nov-2018 Active 40 GM Tube Allergies and Adverse Reactions Name Dates Details [...] Q05.7) Status: Resolved Procedures Procedure Dates Details [QLH] URINALYSIS, COMPLETE Date: 28-Nov-2018 Immunization Name Dates Details Immunizations not documented Social History Name Dates Details - Status: Name Dates Details Never smoker Vital Signs Date Test Result Details [id number] BP Systolic 114 mm[Hg] Status: Comments: Location: E; Position: Sitting BP Diastolic 83 mm[Hg] Status: Comments: Location: E; Position: Sitting Height 60 in Status: Weight 142 lb Status: Body Mass Index Calculated 27.73 kg/m2 Status: Body Surface Area Calculated 1.61 m2 Status: Heart Rate 112 /min Status: Physical Findings 0 Status: Comments: Alcohol Screen - How many times in the past yr have you had 5 (for M) or 4 (for F) or 4 (for all > 65yrs) or more drinks in a day? :57 BP Systolic 109 mm[Hg] Status: Comments: Location: RUE; Position: Sitting BP Diastolic 71 mm[Hg] Status: Comments: Location: RUE; Position: Sitting Height 60 in Status: Weight 142 lb Status: Body Mass Index Calculated 27.73 kg/m2 Status: Body Surface Area Calculated 1.61 m2 Status: Heart Rate 94 /min Status: Temperature 98.6 f Status: Comments: Method: Oral Results Date Description Value Details [id number]-Lep-[id number] [QLH] CMP W/EGFR Sodium Level 137 {mEq/l} Range: 135-145 Potassium Level 4.2 {mEq/l} Range: 3.5-5.1 Chloride Level 104 {mEq/l} Range: 95-109 Carbon Dioxide 24 {mEq/l} Range: 24-32 AGAP 13.2 {mEq/l} Range: 10.0-20.0 Glucose Lvl 95 mg/dl Range: 70-99 Comments: Adult reference range values reflect the clinical guidelinesof the [place] [employer]. Creatinine Lvl 0.80 mg/dl Range: 0.50-1.40 Blood Urea Nitrogen 14 mg/dl Range: 7-22 BUN/Creatinine Ratio 18 Range: 6-25 Total Protein 9.1 g/dl (Above high Range: 6.4-8.4 threshold) Albumin Lvl 3.7 g/dl Range: 3.5-5.0 Globulin 5.4 g/dl (Above high Range: 2.7-4.2 threshold) A/G Ratio 0.7 Range: 0.7-1.6 Calcium Level Total 9.9 mg/dl Range: 8.5-10.5 ALT 23 u/l Range: 0-65 AST 17 u/l Range: 0-37 Bili Total 0.2 mg/dl Range: 0.2-1.3 Alk Phos 77 u/l Range: 39-136 eGFR 107 {ML/MIN/1.7} Comments: The eGFR is calculated using [...] eGFR shouldbe multiplied by the estimated BMI. [id number] [[facility]] CBC (INCLUDES DIFF/PLT) WBC 9.4 {K/CMM} Range: 3.7-10.4 RBC 5.19 {M/CMM} Range: 4.20-5.40 Hgb 11.6 g/dl (Below low Range: 12.0-16.0 threshold) Hct 36.4 % Range: 36.0-48.0 MCV 70.1 fL (Below low Range: 80.0-98.0 threshold) MCH 22.4 pg (Below low Range: 27.0-31.0 threshold) MCHC 31.9 g/dl (Below low Range: 32.0-36.0 threshold) RDW 30.7 % (Above high Range: 11.5-14.5 threshold) Platelet See Note Range: 133-450 Comments: Platelets clumped in EDTA, unable to estimate, suggest recollection in a bluetop tube with an order for "Blue Top Platelet Count" Mean Platelet Volume 8.2 fL Range: 7.4-10.4 [id number] [[facility]] CULTURE, URINE, ROUTINE Comments: Source: Urine, Clean CatchBody Site: FINAL REPORT Specimen contains 3 or more potential pathogens; recommend correlation withurinalysis; if catheterized specimen recommend removal and recollection. Ifclinical situation warrants please call the laboratory for further testing. COMicrobiology [phone]. [id number] MRI Pelvis with and without contrast [id number] Pelvis with and SEE NOTES Comments: Clinical indication: R58- excessive bleedingComparison: CT abdomen pelvis 04/12/2018TECHNIQUE: Multiplanar and multisequence magnetic resonance imaging of thepelvis were obtained with and without IV cont without contrast MRI rast.IV contrast: 13 mL DotaremFINDINGS:The inferior most portion of the pelvis including portions of the vagina andanal canal were not included on the scan field of view.Reproductive organs: The uterus is anteverted. There are multiple [id number] uterine fibroids. A 5.1 x 4.2 x 5.3 cm intramural fibroid ispresent on the posterior uterine fundus. A 4.3 x 3.7 x 3.8 cm intramuralfibroid is present on the anterior uterine fundus. A 3.8 x 3.2 x 2.9 cm fibroidappears separate, but adjacent to the uterus in the region of the left broadligament. A few additional smaller intramural uterine fibroids are p resent.There is also an ill-defined area of T2 hypointensity on the right anterioruterine fundus containing numerous tiny internal foci of T2 hyperintensity,suggestive of an adenomyoma. This region awilda ures 4.1 x 4 x 4.1 cm. Thejunctional zone measures up to 5 mm in thickness. The endometrium is normal inthickness, measuring up to 8 mm. Nabothian cysts are present in the cervix.Subcentimeter follicles are present in the bilateral ovaries.Peritoneum/retroperitoneum: A small amount of free fluid is present in thepelvis, which may be physiologic.Gastrointestinal: A left lower quadrant colostomy is pres ent. Visualizedportions of small bowel are normal in caliber.Urinary bladder: The urinary bladder is contracted.Lymph nodes: No pelvic lymphadenopathy.Pelvic vessels: The pelvic vessels enhance normally .Bones: There are redemonstrated changes of spina bifida. Rotatory scoliosis ispresent in the spine. Dysplasia of the right hip is seen with chronicdislocation of the right femur, remodeling of the righ t femoral head andshallow acetabulum.Soft tissues: A sacral decubitus ulcer is present. Enhancement is seen aroundthe right greater trochanteric bursa suggestive of bursitis. There is diastasesof the re ctus abdominis muscles.Other: A partially visualized right kidney demonstrates multiple low signalfilling defects in the renal pelvis, suggestive of nephrolithiasis. The largestmeasures 0.9 cm.IMPRESSIO N:1. Multiple uterine fibroids as well as a 3.8 cm fibroid adjacent to theuterus, likely a broad ligament fibroid.2. A 4.1 cm uterine adenomyoma.3. Multiple right renal calculi.4. Sacral decubitus u lcer.5. No significant change in findings of spina bifida with right hip dysplasia.6. Findings suggestive of right greater trochanteric bursitis.7. Left lower quadrant colostomy.SL: [id number]--Msua by : Teresa Newsome MDDictated Date/time: 12/06/18 13: 39Electronically Signed by: Teresa Newsome MD 3:56FINAL REPORT Plan of Care Name Dates Details Planned Observations Planned Goals not documented Planned Encounters Wound Care Referral Appointment; DEONDRE AGUILAR M.D. On: 23-Dec-2018 9:40 Appointment; BANDAR AKHTAR M.D. On: 04-Jan-2019 8:15 Interventions Provided Plan#nephrolithiases-Discussed MRI results with patient-We have recommended recommend right PCNL in the past however patient was hesitant to undergo procedure-She is willing to have stones addressed if it can be done at the same time as her surgery with Dr. Aguilar-MRI results will be printed and placed in Dr. Juarez's folder for review#Menorrhagia-4.1 Centimeter uterine adenoma on MRI- Follow-up with Dr. Aguilar 12/19/2018#Sacral decubitus ulcer-Wound care orders placed Instructions Name Dates Details Instructions not documented Encounters Appointment; ANNIE JUAREZ M.D. On: 15-Apr-2018 8:45 Encounter Diagnosis: Problem not documented Appointment; ANNIE JUAREZ M.D. On: 11-May-2018 10:15 Encounter Diagnosis: Problem not documented Appointment; BEKAH LOW P.A. On: 30-May-2018 10:30 Encounter Diagnosis: Problem not documented Appointment; ANNIE JUAREZ M.D. On: 08-Jun-2018 9:45 Encounter Diagnosis: Problem not documented Appointment; DEONDRE AGUILAR M.D. On: 14-Nov-2018 9:30 Encounter Diagnosis: Problem not documented Appointment; DEONDRE AGUILAR M.D. On: 28-Nov-2018 9:40 Encounter Diagnosis: Problem not documented Appointment; KARON BOONE M.D. On: 28-Nov-2018 10:45 Encounter Diagnosis: Problem not documented Appointment; ANNIE JUAREZ M.D. On: 07-Dec-2018 10:30 Encounter Diagnosis: Problem not documented
--- OUTSIDE RECORDS SUMMARY | 2018-12-13 11:35 | XMS REPORT ---
:1980 [facility] Address [address] [place] [address] Dr. Robertson [address] [place] [id number] Care Team Providers Name Role Phone DILMA LOMBARDI WAQAR Unavailable Unavailable DANGELO VERMA MABEL Unavailable Unavailable [...] CULTURE (BEAKER) (test ENTEROCOCCUS SPECIES 2+ Enterococcus otta=0002) species Ampicillin (test code=26) Linezolid (test code=40) Tetracycline (test code=2) Vancomycin (test code=13) CULTURE (BEAKER) (test 1+ Katie albicans fqxm=3984) CULTURE (BEAKER) (test KLEBSIELLA 1+ Klebsiella bwar=3420) PNEUMONIAE SSP pneumoniae ssp PNEUMONIAE pneumoniae Amikacin [...] CULTURE (BEAKER) (test VANCOMYCIN RESISTANT 1+ Vancomycin fhzx=7738) ENTEROCOCCUS SPECIES resistant Enterococcus species Ampicillin (test code=26) Linezolid (test code=40) Vancomycin (test code=13) Daptomycin (test Susceptible 0-4 , No code=59) Interpretations Established <0 or >4 ANAEROBIC [id number] 05:31:00 Test Item Value Reference Range Comments CULTURE (BEAKER) (test omun=2028) No anaerobes isolated URINE [id number] 11:06:00 Test Item Value Reference Range Comments CULTURE (BEAKER) (test 20-29,000 col/mL rldt=5248) Katie parapsilosis CULTURE (BEAKER) (test PSEUDOMONAS 20-29,000 col/mL gbiz=8636) AERUGINOSA Pseudomonas aeruginosa Amikacin (test code=1) Susceptible [...] , code=25) Resistant <0 or >4 URINE [id number] 11:03:00 Test Item Value Reference Range Comments CULTURE (BEAKER) (test ENTEROCOCCUS SPECIES >100,000 col/mL rkfa=5265) Enterococcus species Ampicillin (test code=26) Linezolid (test code=40) Nitrofurantoin (test code=23) Tetracycline (test code=2) Vancomycin (test code=13) CULTURE (BEAKER) (test ESCHERICHIA COLI 50-59,000 col/mL idqy=6600) Escherichia coli Amikacin (test code=1) Ampicillin + Sulbactam (test code=6) Aztreonam (test code=32) Cefepime (test code=51) Cefoxitin (test code=68) Ceftazidime (test code=27) Ceftriaxone (test code=52) Ertapenem (test code=38) Gentamicin (test code=18) Levofloxacin (test code=22) Meropenem (test code=34) Nitrofurantoin (test code=23) Piperacillin + Tazobactam (test code=29) Tetracycline (test code=2) Tobramycin (test code=25) Trimethoprim + Sulfamethoxazole (test code=47) CULTURE (BEAKER) (test ENTEROBACTER CLOACAE 50-59,000 col/mL rxce=2634) COMPLEX Enterobacter cloacae complex Amikacin (test code=1) Aztreonam (test code=32) Cefepime (test code=51) Cefoxitin (test code=68) Ceftazidime (test code=27) Ceftriaxone (test code=52) Ertapenem (test code=38) Gentamicin (test code=18) Levofloxacin (test code=22) Meropenem (test code=34) Nitrofurantoin (test code=23) Piperacillin + Tazobactam (test code=29) Tetracycline (test code=2) Tobramycin (test code=25) Trimethoprim + Sulfamethoxazole (test code=47) Dr. lopez request for avycaz and zerbaxaCT, [id number] 07:41:00FINAL REPORT INDICATION:37-year-old female status post recent [...] and right sided urinary stones. Signed: Frederick BoydMDReport Verified Date/Time : 06/29/2018 07:41:57 Reading Location: [facility] Diagnostic Imaging Reading Room - [place] [id number] Electronically signed by: FREDERICK BOYD M.D. on 2017 07:41 AMCBC W/PLT COUNT & AUTO [id number] 07:07:00 Test Item Value Reference Range Comments WHITE BLOOD CELL COUNT 9.2 K/ L 3.5-10.5 (BEAKER) (test ofou=010) RED BLOOD CELL COUNT (BEAKER) 4.41 M/ L 3.93-5.22 (test synm=998) HEMOGLOBIN (BEAKER) (test 10.1 GM/DL 11.2-15.7 zlzv=014) HEMATOCRIT (BEAKER) (test 33.7 % 34.1-44.9 iujq=048) MEAN CORPUSCULAR VOLUME 76.4 fL 79.4-94.8 (BEAKER) (test hmvl=578) MEAN CORPUSCULAR HEMOGLOBIN 22.9 pg 25.6-32.2 (BEAKER) (test emso=931) MEAN CORPUSCULAR HEMOGLOBIN 30.0 GM/DL 32.2-35.5 CONC (BEAKER) (test awjg=953) RED CELL DISTRIBUTION WIDTH 21.2 % 11.7-14.4 (BEAKER) (test omsa=468) PLATELET COUNT (BEAKER) (test 51 K/CU MM 150-450 vjke=652) MEAN PLATELET VOLUME (BEAKER) fL 9.4-12.3 Unable to report due to (test zqwq=112) abnormal Platelet population distribution. NUCLEATED RED BLOOD CELLS 0 /100 WBC 0-0 (BEAKER) (test bbim=574) NEUTROPHILS RELATIVE PERCENT 71 % (BEAKER) (test expg=227) LYMPHOCYTES RELATIVE PERCENT 17 % (BEAKER) (test igmm=812) MONOCYTES RELATIVE PERCENT 10 % (BEAKER) (test buei=115) EOSINOPHILS RELATIVE PERCENT 1 % (BEAKER) (test zluj=797) BASOPHILS RELATIVE PERCENT 0 % (BEAKER) (test lgpk=591) NEUTROPHILS ABSOLUTE COUNT 6.59 K/ L 1.56-6.13 (BEAKER) (test vqky=609) LYMPHOCYTES ABSOLUTE COUNT 1.59 K/ L 1.18-3.74 (BEAKER) (test tizv=510) MONOCYTES ABSOLUTE COUNT 0.91 K/ L 0.24-0.36 (BEAKER) (test kgwa=290) EOSINOPHILS ABSOLUTE COUNT 0.07 K/ L 0.04-0.36 (BEAKER) (test humj=919) BASOPHILS ABSOLUTE COUNT 0.03 K/ L 0.01-0.08 (BEAKER) (test kvdb=381) IMMATURE GRANULOCYTES-RELATIVE 0 % 0-1 PERCENT (BEAKER) (test uxcn=5097) BASIC METABOLIC [id number] 06:01:00 Test Item Value Reference Range Comments SODIUM (BEAKER) (test 137 meq/L 136-145 vuuw=928) POTASSIUM (BEAKER) (test 3.7 meq/L 3.5-5.1 rako=017) CHLORIDE (BEAKER) (test 112 meq/L 98-107 ifxx=744) CO2 (BEAKER) (test 17 meq/L 22-29 qyev=943) BLOOD UREA NITROGEN 7 mg/dL 7-21 (BEAKER) (test xgfc=957) CREATININE (BEAKER) (test 0.64 mg/dL 0.57-1.25 yntr=365) GLUCOSE RANDOM (BEAKER) 82 mg/dL 70-105 (test vdiu=930) CALCIUM (BEAKER) (test 8.9 mg/dL 8.4-10.2 jstm=330) EGFR (BEAKER) (test 126 mL/min/1.73 sq m ESTIMATED GFR IS NOT ebia=8246) ACCURATE CREATININE CLEARANCE IN PREDICTING GLOMERULAR FILTRATION RATE. ESTIMATED GFR IS NOT APPLICABLE FOR DIALYSIS PATIENTS. CBC W/PLT COUNT & AUTO [id number] 22:22:00 Test Item Value Reference Range Comments WHITE BLOOD CELL COUNT 8.0 K/ L 3.5-10.5 (BEAKER) (test caxg=464) RED BLOOD CELL COUNT (BEAKER) 4.53 M/ L 3.93-5.22 (test rcns=496) HEMOGLOBIN (BEAKER) (test 10.5 GM/DL 11.2-15.7 piok=569) HEMATOCRIT (BEAKER) (test 35.1 % 34.1-44.9 umpa=354) MEAN CORPUSCULAR VOLUME 77.5 fL 79.4-94.8 (BEAKER) (test vbrl=880) MEAN CORPUSCULAR HEMOGLOBIN 23.2 pg 25.6-32.2 (BEAKER) (test azrx=865) MEAN CORPUSCULAR HEMOGLOBIN 29.9 GM/DL 32.2-35.5 CONC (BEAKER) (test pwkk=146) RED CELL DISTRIBUTION WIDTH 20.6 % 11.7-14.4 (BEAKER) (test fdwj=318) PLATELET COUNT (BEAKER) (test 97 K/CU MM 150-450 jwvt=911) MEAN PLATELET VOLUME (BEAKER) fL 9.4-12.3 Unable to report due to (test tsww=621) abnormal Platelet population distribution. NUCLEATED RED BLOOD CELLS 0 /100 WBC 0-0 (BEAKER) (test twdn=016) NEUTROPHILS RELATIVE PERCENT 80 % (BEAKER) (test uhru=225) LYMPHOCYTES RELATIVE PERCENT 16 % (BEAKER) (test okxq=660) MONOCYTES RELATIVE PERCENT 4 % (BEAKER) (test saed=396) EOSINOPHILS RELATIVE PERCENT 0 % (BEAKER) (test yqvl=260) BASOPHILS RELATIVE PERCENT 0 % (BEAKER) (test juaw=072) NEUTROPHILS ABSOLUTE COUNT 6.41 K/ L 1.56-6.13 (BEAKER) (test eled=455) LYMPHOCYTES ABSOLUTE COUNT 1.24 K/ L 1.18-3.74 (BEAKER) (test cbkr=260) MONOCYTES ABSOLUTE COUNT 0.32 K/ L 0.24-0.36 (BEAKER) (test tdjm=763) EOSINOPHILS ABSOLUTE COUNT 0.00 K/ L 0.04-0.36 (BEAKER) (test yjwa=360) BASOPHILS ABSOLUTE COUNT 0.01 K/ L 0.01-0.08 (BEAKER) (test tpyz=921) IMMATURE GRANULOCYTES-RELATIVE 1 % 0-1 PERCENT (BEAKER) (test twty=0515) BASIC METABOLIC [id number] 21:08:00 Test Item Value Reference Range Comments SODIUM (BEAKER) (test 135 meq/L 136-145 gill=260) POTASSIUM (BEAKER) (test 4.4 meq/L 3.5-5.1 rwro=443) CHLORIDE (BEAKER) (test 111 meq/L 98-107 xfwn=921) CO2 (BEAKER) (test 15 meq/L 22-29 qxhj=963) BLOOD UREA NITROGEN 7 mg/dL 7-21 (BEAKER) (test ewqx=960) CREATININE (BEAKER) (test 0.62 mg/dL 0.57-1.25 wnwv=860) GLUCOSE RANDOM (BEAKER) 95 mg/dL 70-105 (test zgxo=295) CALCIUM (BEAKER) (test 8.9 mg/dL 8.4-10.2 mdwp=885) EGFR (BEAKER) (test 131 mL/min/1.73 sq m ESTIMATED GFR IS NOT evql=9261) ACCURATE CREATININE CLEARANCE IN PREDICTING GLOMERULAR FILTRATION RATE. ESTIMATED GFR IS NOT APPLICABLE FOR DIALYSIS PATIENTS. RAD, CHEST, 1 VIEW, NON [id number] 13:37:00Reason for exam:->eval for pneumothoraxReason for exam:->in [...] is present. No visualized fracture. Signed: Charanjit Irelandeport Verified Date/Time: 13:37:49 Reading Location: [facility] Radiology Reading Room CBC W/PLT COUNT & amp; AUTO [id number] 09:50:00 Test Item Value Reference Range Comments WHITE BLOOD CELL COUNT 5.8 K/ L 3.5-10.5 (BEAKER) (test vhmo=842) RED BLOOD CELL COUNT (BEAKER) 4.38 M/ L 3.93-5.22 (test kzzr=678) HEMOGLOBIN (BEAKER) (test 10.3 GM/DL 11.2-15.7 nghw=206) HEMATOCRIT (BEAKER) (test 33.7 % 34.1-44.9 afvc=134) MEAN CORPUSCULAR VOLUME 76.9 fL 79.4-94.8 (BEAKER) (test qgmh=889) MEAN CORPUSCULAR HEMOGLOBIN 23.5 pg 25.6-32.2 (BEAKER) (test qemp=799) MEAN CORPUSCULAR HEMOGLOBIN 30.6 GM/DL 32.2-35.5 CONC (BEAKER) (test krjs=696) RED CELL DISTRIBUTION WIDTH 20.5 % 11.7-14.4 (BEAKER) (test rnre=061) PLATELET COUNT (BEAKER) (test K/CU MM 150-450 Platelet clumps djjw=171) present;unable to report true count. Platelet count should be recollected using an EDTA and CITRATE(blue) tube. MEAN PLATELET VOLUME (BEAKER) fL 9.4-12.3 Unable to report due to (test pvvn=024) abnormal Platelet population distribution. NUCLEATED RED BLOOD CELLS 0 /100 WBC 0-0 (BEAKER) (test yote=412) NEUTROPHILS RELATIVE PERCENT 47 % (BEAKER) (test eayh=415) LYMPHOCYTES RELATIVE PERCENT 33 % (BEAKER) (test ussh=522) MONOCYTES RELATIVE PERCENT 12 % (BEAKER) (test gesj=561) EOSINOPHILS RELATIVE PERCENT 8 % (BEAKER) (test eysf=456) BASOPHILS RELATIVE PERCENT 0 % (BEAKER) (test oamg=638) NEUTROPHILS ABSOLUTE COUNT 2.70 K/ L 1.56-6.13 (BEAKER) (test twtm=364) LYMPHOCYTES ABSOLUTE COUNT 1.90 K/ L 1.18-3.74 (BEAKER) (test axzm=396) MONOCYTES ABSOLUTE COUNT 0.66 K/ L 0.24-0.36 (BEAKER) (test ngcc=847) EOSINOPHILS ABSOLUTE COUNT 0.45 K/ L 0.04-0.36 (BEAKER) (test pelg=147) BASOPHILS ABSOLUTE COUNT 0.02 K/ L 0.01-0.08 (BEAKER) (test njvu=641) IMMATURE GRANULOCYTES-RELATIVE 0 % 0-1 PERCENT (BEAKER) (test nbic=8661) FL, CLINICAL SPECIALIST IN OR/30 MINUTE [id number] 09:43:00Reason for exam:-> PCNLIs the patient ?->NoWhen [...] Pulido MDReport Verified Date/Time: 2017 09:43:00 Reading Location:[facility] Radiology Reading Room 09:43 AMBASIC METABOLIC [id number] 07:59:00 Test Item Value Reference Range Comments SODIUM (BEAKER) (test 135 meq/L 136-145 tnvv=437) POTASSIUM (BEAKER) (test 4.2 meq/L 3.5-5.1 pwnm=324) CHLORIDE (BEAKER) (test 110 meq/L 98-107 jxev=428) CO2 (BEAKER) (test 18 meq/L 22-29 exio=905) BLOOD UREA NITROGEN 7 mg/dL 7-21 (BEAKER) (test wxok=930) CREATININE (BEAKER) (test 0.63 mg/dL 0.57-1.25 locl=205) GLUCOSE RANDOM (BEAKER) 84 mg/dL 70-105 (test ndwq=373) CALCIUM (BEAKER) (test 8.6 mg/dL 8.4-10.2 vmzt=614) EGFR (BEAKER) (test 128 mL/min/1.73 sq m ESTIMATED GFR IS NOT bniv=9198) ACCURATE CREATININE CLEARANCE IN PREDICTING GLOMERULAR FILTRATION RATE. ESTIMATED GFR IS NOT APPLICABLE FOR DIALYSIS PATIENTS. HEMOGLOBIN AND [id number] 14:41:00 Test Item Value Reference Range Comments HEMOGLOBIN (BEAKER) (test gpvj=985) 6.5 GM/DL 11.2-15.7 HEMATOCRIT (BEAKER) (test dznn=847) 23.1 % 34.1-44.9 BASIC METABOLIC [id number] 08:36:00 Test Item Value Reference Range Comments SODIUM (BEAKER) (test 135 meq/L 136-145 wnqn=819) POTASSIUM (BEAKER) (test 4.1 meq/L 3.5-5.1 nykx=864) CHLORIDE (BEAKER) (test 111 meq/L 98-107 itby=394) CO2 (BEAKER) (test 18 meq/L 22-29 mdlg=445) BLOOD UREA NITROGEN 8 mg/dL 7-21 (BEAKER) (test nmvx=068) CREATININE (BEAKER) (test 0.61 mg/dL 0.57-1.25 squm=769) GLUCOSE RANDOM (BEAKER) 75 mg/dL 70-105 (test yugp=783) CALCIUM (BEAKER) (test 8.4 mg/dL 8.4-10.2 kwrj=783) EGFR (BEAKER) (test 133 mL/min/1.73 sq m ESTIMATED GFR IS NOT usho=9398) ACCURATE CREATININE CLEARANCE IN PREDICTING GLOMERULAR FILTRATION RATE. ESTIMATED GFR IS NOT APPLICABLE FOR DIALYSIS PATIENTS. CBC W/PLT COUNT & AUTO [id number] 05:49:00 Test Item Value Reference Range Comments WHITE BLOOD CELL COUNT (BEAKER) (test cmfe=909) 5.1 K/ L 3.5-10.5 RED BLOOD CELL COUNT (BEAKER) (test hbqs=427) 3.14 M/ L 3.93-5.22 HEMOGLOBIN (BEAKER) (test kizh=095) 6.3 GM/DL 11.2-15.7 HEMATOCRIT (BEAKER) (test oadc=602) 22.8 % 34.1-44.9 MEAN CORPUSCULAR VOLUME (BEAKER) (test hnyf=751) 72.6 fL 79.4-94.8 MEAN CORPUSCULAR HEMOGLOBIN (BEAKER) (test 20.1 pg 25.6-32.2 loud=708) MEAN CORPUSCULAR HEMOGLOBIN CONC (BEAKER) (test 27.6 GM/DL 32.2-35.5 huxw=719) RED CELL DISTRIBUTION WIDTH (BEAKER) (test 20.5 % 11.7-14.4 mnwv=558) PLATELET COUNT (BEAKER) (test pixf=261) 426 K/CU MM 150-450 MEAN PLATELET VOLUME (BEAKER) (test lkop=771) 10.9 fL 9.4-12.3 NUCLEATED RED BLOOD CELLS (BEAKER) (test 0 /100 WBC 0-0 tath=363) NEUTROPHILS RELATIVE PERCENT (BEAKER) (test 47 % rkri=433) LYMPHOCYTES RELATIVE PERCENT (BEAKER) (test 30 % igkn=788) MONOCYTES RELATIVE PERCENT (BEAKER) (test 13 % pmcp=232) EOSINOPHILS RELATIVE PERCENT (BEAKER) (test 10 % ksst=626) BASOPHILS RELATIVE PERCENT (BEAKER) (test 0 % orln=831) NEUTROPHILS ABSOLUTE COUNT (BEAKER) (test 2.35 K/ L 1.56-6.13 gzet=253) LYMPHOCYTES ABSOLUTE COUNT (BEAKER) (test 1.53 K/ L 1.18-3.74 skra=702) MONOCYTES ABSOLUTE COUNT (BEAKER) (test 0.67 K/ L 0.24-0.36 fizs=570) EOSINOPHILS ABSOLUTE COUNT (BEAKER) (test 0.48 K/ L 0.04-0.36 mxsl=440) BASOPHILS ABSOLUTE COUNT (BEAKER) (test 0.01 K/ L 0.01-0.08 rwoh=448) IMMATURE GRANULOCYTES-RELATIVE PERCENT (BEAKER) 0 % 0-1 (test nefi=7465) HEMOGLOBIN AND [id number] 14:34:00 Test Item Value Reference Range Comments HEMOGLOBIN (BEAKER) (test ilag=261) 7.0 GM/DL 11.2-15.7 HEMATOCRIT (BEAKER) (test gcwt=005) 24.7 % 34.1-44.9 CBC W/PLT COUNT & AUTO [id number] 10:55:00 Test Item Value Reference Range Comments WHITE BLOOD CELL COUNT 6.0 K/ L 3.5-10.5 (BEAKER) (test beyw=916) RED BLOOD CELL COUNT (BEAKER) 3.59 M/ L 3.93-5.22 (test ldmz=853) HEMOGLOBIN (BEAKER) (test 7.3 GM/DL 11.2-15.7 uqmv=410) HEMATOCRIT (BEAKER) (test 25.9 % 34.1-44.9 lorp=827) MEAN CORPUSCULAR VOLUME 72.1 fL 79.4-94.8 (BEAKER) (test gwup=853) MEAN CORPUSCULAR HEMOGLOBIN 20.3 pg 25.6-32.2 (BEAKER) (test qtmt=048) MEAN CORPUSCULAR HEMOGLOBIN 28.2 GM/DL 32.2-35.5 CONC (BEAKER) (test zydk=208) RED CELL DISTRIBUTION WIDTH 20.2 % 11.7-14.4 (BEAKER) (test nunw=708) PLATELET COUNT (BEAKER) (test 592 K/CU MM 150-450 Platelets count from rizj=844) citrated tube. MEAN PLATELET VOLUME (BEAKER) 9.4 fL 9.4-12.3 (test xgmy=856) NUCLEATED RED BLOOD CELLS 0 /100 WBC 0-0 (BEAKER) (test zlys=336) NEUTROPHILS RELATIVE PERCENT 56 % (BEAKER) (test xnwe=651) LYMPHOCYTES RELATIVE PERCENT 26 % (BEAKER) (test wjcn=932) MONOCYTES RELATIVE PERCENT 10 % (BEAKER) (test kqxf=023) EOSINOPHILS RELATIVE PERCENT 8 % (BEAKER) (test nupl=291) BASOPHILS RELATIVE PERCENT 0 % (BEAKER) (test foga=103) NEUTROPHILS ABSOLUTE COUNT 3.35 K/ L 1.56-6.13 (BEAKER) (test bcbk=541) LYMPHOCYTES ABSOLUTE COUNT 1.53 K/ L 1.18-3.74 (BEAKER) (test uyzc=313) MONOCYTES ABSOLUTE COUNT 0.60 K/ L 0.24-0.36 (BEAKER) (test agcz=808) EOSINOPHILS ABSOLUTE COUNT 0.47 K/ L 0.04-0.36 (BEAKER) (test ahge=466) BASOPHILS ABSOLUTE COUNT 0.02 K/ L 0.01-0.08 (BEAKER) (test ijig=444) IMMATURE GRANULOCYTES-RELATIVE 0 % 0-1 PERCENT (BEAKER) (test pvcw=9516) BASIC METABOLIC [id number] 06:21:00 Test Item Value Reference Range Comments SODIUM (BEAKER) (test 138 meq/L 136-145 cnvs=712) POTASSIUM (BEAKER) (test 4.6 meq/L 3.5-5.1 Specimen slightly chbk=931) hemolyzed CHLORIDE (BEAKER) (test 114 meq/L 98-107 fluq=340) CO2 (BEAKER) (test 15 meq/L 22-29 woow=172) BLOOD UREA NITROGEN 9 mg/dL 7-21 (BEAKER) (test qnym=881) CREATININE (BEAKER) (test 0.67 mg/dL 0.57-1.25 Specimen slightly tzdf=955) hemolyzed GLUCOSE RANDOM (BEAKER) 81 mg/dL 70-105 (test tlug=460) CALCIUM (BEAKER) (test 8.6 mg/dL 8.4-10.2 pvgj=574) EGFR (BEAKER) (test 119 mL/min/1.73 sq m ESTIMATED GFR IS NOT ubww=5801) ACCURATE CREATININE CLEARANCE IN PREDICTING GLOMERULAR FILTRATION RATE. ESTIMATED GFR IS NOT APPLICABLE FOR DIALYSIS PATIENTS. CBC W/PLT COUNT & AUTO [id number] 14:39:00 Test Item Value Reference Range Comments WHITE BLOOD CELL COUNT 5.3 K/ L 3.5-10.5 (BEAKER) (test nqsc=546) RED BLOOD CELL COUNT (BEAKER) 3.55 M/ L 3.93-5.22 (test jhgm=523) HEMOGLOBIN (BEAKER) (test 7.3 GM/DL 11.2-15.7 kudn=212) HEMATOCRIT (BEAKER) (test 25.9 % 34.1-44.9 fntf=134) MEAN CORPUSCULAR VOLUME 73.0 fL 79.4-94.8 (BEAKER) (test xdne=163) MEAN CORPUSCULAR HEMOGLOBIN 20.6 pg 25.6-32.2 (BEAKER) (test smvv=119) MEAN CORPUSCULAR HEMOGLOBIN 28.2 GM/DL 32.2-35.5 CONC (BEAKER) (test ygmt=895) RED CELL DISTRIBUTION WIDTH 20.3 % 11.7-14.4 (BEAKER) (test azxu=534) PLATELET COUNT (BEAKER) (test 554 K/CU MM 150-450 Platelet Clumps present. atqz=758) Unable to report true count on Purple top. Platelet Count using citrate tube MEAN PLATELET VOLUME (BEAKER) fL 9.4-12.3 Unable to report due to (test ptrx=554) abnormal Platelet population distribution. NUCLEATED RED BLOOD CELLS 0 /100 WBC 0-0 (BEAKER) (test ytct=938) NEUTROPHILS RELATIVE PERCENT 61 % (BEAKER) (test ajhb=803) LYMPHOCYTES RELATIVE PERCENT 25 % (BEAKER) (test kmpk=172) MONOCYTES RELATIVE PERCENT 8 % (BEAKER) (test jqmz=377) EOSINOPHILS RELATIVE PERCENT 6 % (BEAKER) (test qcmb=707) BASOPHILS RELATIVE PERCENT 0 % (BEAKER) (test fxts=659) NEUTROPHILS ABSOLUTE COUNT 3.25 K/ L 1.56-6.13 (BEAKER) (test kqgc=853) LYMPHOCYTES ABSOLUTE COUNT 1.32 K/ L 1.18-3.74 (BEAKER) (test bpzq=943) MONOCYTES ABSOLUTE COUNT 0.40 K/ L 0.24-0.36 (BEAKER) (test igkz=642) EOSINOPHILS ABSOLUTE COUNT 0.34 K/ L 0.04-0.36 (BEAKER) (test xgvj=508) BASOPHILS ABSOLUTE COUNT 0.01 K/ L 0.01-0.08 (BEAKER) (test jfca=312) IMMATURE GRANULOCYTES-RELATIVE 0 % 0-1 PERCENT (BEAKER) (test tdpf=8577) RAD, CHEST, 1 VIEW, NON [id number] 10:16:00Reason for exam:->Post Power PICC insertion RUE for tip verificationShould this be performed at the bedside?- >YesFINAL REPORT AP chest HISTORY: PICC placement COMPARISON: None IMPRESSION:Right arm PICC present with tip at upper SVC. SVC filter present. Left-sided CATALYST SUPERVISOR shunt. Grossly normal cardiac silhouette. Right lung clear. Moderate left effusion. Signed: Satish Kerr MDReport VerifiedDate/Time: 06/25/2018 10:16:18 Reading Location: [address] Ortho Consult Reading Room BASIC METABOLIC [id number] 09:58:00 Test Item Value Reference Range Comments SODIUM (BEAKER) (test 136 meq/L 136-145 uyea=133) POTASSIUM (BEAKER) (test 4.4 meq/L 3.5-5.1 Specimen slightly osrk=432) hemolyzed CHLORIDE (BEAKER) (test 107 meq/L 98-107 iewl=501) CO2 (BEAKER) (test 23 meq/L 22-29 mnfx=008) BLOOD UREA NITROGEN 11 mg/dL 7-21 (BEAKER) (test ajir=396) CREATININE (BEAKER) (test 0.68 mg/dL 0.57-1.25 Specimen slightly bbmg=327) hemolyzed GLUCOSE RANDOM (BEAKER) 92 mg/dL 70-105 (test kzkm=741) CALCIUM (BEAKER) (test 8.9 mg/dL 8.4-10.2 epbp=274) EGFR (BEAKER) (test 117 mL/min/1.73 sq m ESTIMATED GFR IS NOT pzbn=0727) ACCURATE CREATININE CLEARANCE IN PREDICTING GLOMERULAR FILTRATION RATE. ESTIMATED GFR IS NOT APPLICABLE FOR DIALYSIS PATIENTS. CBC W/PLT COUNT & AUTO [id number] 13:38:00 Test Item Value Reference Range Comments WHITE BLOOD CELL COUNT 7.5 K/ L 3.5-10.5 (BEAKER) (test htds=102) RED BLOOD CELL COUNT (BEAKER) 4.45 M/ L 3.93-5.22 (test aaho=243) HEMOGLOBIN (BEAKER) (test 9.2 GM/DL 11.2-15.7 izqi=152) HEMATOCRIT (BEAKER) (test 32.4 % 34.1-44.9 ufps=202) MEAN CORPUSCULAR VOLUME 72.8 fL 79.4-94.8 (BEAKER) (test yweh=806) MEAN CORPUSCULAR HEMOGLOBIN 20.7 pg 25.6-32.2 (BEAKER) (test rzli=372) MEAN CORPUSCULAR HEMOGLOBIN 28.4 GM/DL 32.2-35.5 CONC (BEAKER) (test jafa=579) RED CELL DISTRIBUTION WIDTH 20.6 % 11.7-14.4 (BEAKER) (test orfn=368) PLATELET COUNT (BEAKER) (test 275 K/CU MM 150-450 hldm=339) MEAN PLATELET VOLUME (BEAKER) fL 9.4-12.3 Unable to report due to (test fejr=310) abnormal Platelet population distribution. NUCLEATED RED BLOOD CELLS 0 /100 WBC 0-0 (BEAKER) (test sfrr=179) NEUTROPHILS RELATIVE PERCENT 65 % (BEAKER) (test epvr=126) LYMPHOCYTES RELATIVE PERCENT 23 % (BEAKER) (test hvfr=936) MONOCYTES RELATIVE PERCENT 8 % (BEAKER) (test kpzf=008) EOSINOPHILS RELATIVE PERCENT 4 % (BEAKER) (test nsxv=265) BASOPHILS RELATIVE PERCENT 0 % (BEAKER) (test nmpw=879) NEUTROPHILS ABSOLUTE COUNT 4.86 K/ L 1.56-6.13 (BEAKER) (test vwdl=973) LYMPHOCYTES ABSOLUTE COUNT 1.69 K/ L 1.18-3.74 (BEAKER) (test vtpw=807) MONOCYTES ABSOLUTE COUNT 0.60 K/ L 0.24-0.36 (BEAKER) (test muxk=900) EOSINOPHILS ABSOLUTE COUNT 0.30 K/ L 0.04-0.36 (BEAKER) (test jfje=404) BASOPHILS ABSOLUTE COUNT 0.02 K/ L 0.01-0.08 (BEAKER) (test pyfu=604) IMMATURE GRANULOCYTES-RELATIVE 0 % 0-1 PERCENT (BEAKER) (test doyh=7637) BASIC METABOLIC [id number] 13:03:00 Test Item Value Reference Range Comments SODIUM (BEAKER) (test 134 meq/L 136-145 cepg=895) POTASSIUM (BEAKER) (test 4.3 meq/L 3.5-5.1 oqzg=940) CHLORIDE (BEAKER) (test 104 meq/L 98-107 qjkj=653) CO2 (BEAKER) (test 19 meq/L 22-29 dxao=042) BLOOD UREA NITROGEN 11 mg/dL 7-21 (BEAKER) (test ackk=096) CREATININE (BEAKER) (test 0.72 mg/dL 0.57-1.25 awga=380) GLUCOSE RANDOM (BEAKER) 82 mg/dL 70-105 (test rqxj=314) CALCIUM (BEAKER) (test 9.7 mg/dL 8.4-10.2 cgeq=559) EGFR (BEAKER) (test 110 mL/min/1.73 sq m ESTIMATED GFR IS NOT cnnd=8005) ACCURATE CREATININE CLEARANCE IN PREDICTING GLOMERULAR FILTRATION RATE. ESTIMATED GFR IS NOT APPLICABLE FOR DIALYSIS PATIENTS. BODY FLUID CULTURE + GRAM [id number] 16:53:00 Test Item Value Reference Range Comments CULTURE (BEAKER) (test ENTEROBACTER CLOACAE 2+ Enterobacter frlw=1813) COMPLEX cloacae complexESBL PositiveAmpC Positive Amikacin (test code=1) Aztreonam (test code=32) Cefepime (test code=51) Cefoxitin (test code=68) Ceftazidime (test code=27) Ceftriaxone (test code=52) Ertapenem (test code=38) Gentamicin (test code=18) Levofloxacin (test code=22) Meropenem (test code=34) Nitrofurantoin (test code=23) Piperacillin + Tazobactam (test code=29) Tetracycline (test code=2) Tobramycin (test code=25) Trimethoprim + Sulfamethoxazole (test code=47) CULTURE (BEAKER) (test ENTEROCOCCUS SPECIES 2+ Enterococcus ltuo=5865) species Ampicillin (test code=26) Linezolid (test code=40) Vancomycin (test code=13) CULTURE (BEAKER) (test 2+ Katie erca=5450) parapsilosis GRAM STAIN RESULT (BEAKER) No organisms seen (test rkvh=1693) GRAM STAIN RESULT (BEAKER) 1+ White blood cells (test lsyc=[id number]) seen URINE [id number] 10:14:00 Test Item Value Reference Range Comments CULTURE (BEAKER) (test ENTEROBACTER CLOACAE >100,000 col/mL znsv=4934) COMPLEX Enterobacter cloacae complex Amikacin (test code=1) Aztreonam (test code=32) Cefepime (test code=51) Cefoxitin (test code=68) Ceftazidime (test code=27) Ceftriaxone (test code=52) Gentamicin (test code=18) Levofloxacin (test code=22) Meropenem (test code=34) Nitrofurantoin (test code=23) Piperacillin + Tazobactam (test code=29) Tetracycline (test code=2) Tobramycin (test code=25) Trimethoprim + Sulfamethoxazole (test code=47) CULTURE (BEAKER) (test PSEUDOMONAS 30-39,000 col/mL saon=9058) AERUGINOSA Pseudomonas aeruginosa Amikacin (test code=1) Susceptible [...] CULTURE (BEAKER) (test ENTEROCOCCUS SPECIES 50-59,000 col/mL yivn=1482) Enterococcus species Ampicillin (test code=26) Linezolid (test code=40) Nitrofurantoin (test code=23) Tetracycline (test code=2) Vancomycin (test code=13) BLOOD [id number] 11:00:00 Test Item Value Reference Range Comments CULTURE (BEAKER) (test loqg=6461) No growth in 5 days BLOOD [id number] 06:00:00 Test Item Value Reference Range Comments CULTURE (BEAKER) (test mnzb=3581) No growth in 5 days BASIC METABOLIC [id number] 04:43:00 Test Item Value Reference Range Comments SODIUM (BEAKER) (test 141 meq/L 136-145 elph=008) POTASSIUM (BEAKER) (test 3.7 meq/L 3.5-5.1 qgit=367) CHLORIDE (BEAKER) (test 112 meq/L 98-107 vcpq=315) CO2 (BEAKER) (test 21 meq/L 22-29 aoma=839) BLOOD UREA NITROGEN 12 mg/dL 7-21 (BEAKER) (test usxp=280) CREATININE (BEAKER) (test 0.63 mg/dL 0.57-1.25 wgih=562) GLUCOSE RANDOM (BEAKER) 83 mg/dL 70-105 (test tskj=000) CALCIUM (BEAKER) (test 8.9 mg/dL 8.4-10.2 blzw=232) EGFR (BEAKER) (test 128 mL/min/1.73 sq m ESTIMATED GFR IS NOT gxxa=3186) ACCURATE CREATININE CLEARANCE IN PREDICTING GLOMERULAR FILTRATION RATE. ESTIMATED GFR IS NOT APPLICABLE FOR DIALYSIS PATIENTS. URINALYSIS W/ REFLEX URINE [id number] 15:11:00 Test Item Value Reference Range Comments COLOR (BEAKER) (test lktw=076) [place] CLARITY (BEAKER) (test oysi=297) Hazy SPECIFIC GRAVITY UA (BEAKER) (test uwzm=395) 1.013 1.001-1.035 PH UA (BEAKER) (test cylm=314) 6.0 5.0-8.0 PROTEIN UA (BEAKER) (test ttpf=037) 100 mg/dL Negative GLUCOSE UA (BEAKER) (test oali=390) Negative Negative KETONES UA (BEAKER) (test pgbv=645) Trace Negative BILIRUBIN UA (BEAKER) (test gqzs=752) Negative Negative BLOOD UA (BEAKER) (test hppu=716) Large Negative NITRITE UA (BEAKER) (test cagj=204) Negative Negative LEUKOCYTE ESTERASE UA (BEAKER) (test xljk=464) Large Negative UROBILINOGEN UA (BEAKER) (test rjez=736) 0.2 mg/dL 0.2-1.0 RBC UA (BEAKER) (test zvev=881) > /HPF WBC UA (BEAKER) (test yqua=531) 68 /HPF MUCUS (BEAKER) (test dmga=9369) Rare SOURCE(BEAKER) (test slsq=3012) ANG, NEPHROSTOMY, PERC, EXTERNAL [id number] 13:43:00Reason for exam:-> right obstructing stone with UTI, needs right PCNU if possible or PCN if notFINAL REPORT Fluoroscopic and ultrasound guided right nephroureterostomy tube placement, 06/12/2018. Clinical History: Obstructing stone at the junction of the right distal ureter and ileoconduit with hydronephrosis and urosepsis. Patient has a history of spina bifida/caudal regression. Modality: Sonography and fluoroscopy Toe Lining Closer: Faisal Felix MD. Salvager: None. Sedation: General anesthesia provided by the [...] then removed. The tract wasdilated to 8 [place]. An 8.5 [place] by 28 cm nephroureterostomy catheter was then [...] right nephroureterostomy tube placement. Signed: Faisal Felix [facility] Verified Date/Time: 06/12/2018 13:43:17 Reading Location: [place] [id number] Angio Body Reading Room CBC (HEMOGRAM ONLY)2018-06-12 10:29:00 Test Item Value Reference Range Comments WHITE BLOOD CELL COUNT (BEAKER) 8.5 K/ L 3.5-10.5 (test gdco=646) RED BLOOD CELL COUNT (BEAKER) 4.23 M/ L 3.93-5.22 (test dpkb=502) HEMOGLOBIN (BEAKER) (test 9.1 GM/DL 11.2-15.7 vsxv=887) HEMATOCRIT (BEAKER) (test 31.4 % 34.1-44.9 hafb=186) MEAN CORPUSCULAR VOLUME 74.2 fL 79.4-94.8 (BEAKER) (test khwc=700) MEAN CORPUSCULAR HEMOGLOBIN 21.5 pg 25.6-32.2 (BEAKER) (test xkyl=546) MEAN CORPUSCULAR HEMOGLOBIN 29.0 GM/DL 32.2-35.5 CONC (BEAKER) (test vljw=162) RED CELL DISTRIBUTION WIDTH 20.4 % 11.7-14.4 (BEAKER) (test putz=371) PLATELET COUNT (BEAKER) (test K/CU MM 150-450 Platelet clumps present, tazq=913) unable to report true platelet. Recommend recollect using EDTA tube and blue (Citrate) tube. spoke to RN ID:[id number] NUCLEATED RED BLOOD CELLS 0 /100 WBC 0-0 (BEAKER) (test bjql=435) BASIC METABOLIC [id number] 06:52:00 Test Item Value Reference Range Comments SODIUM (BEAKER) (test 137 meq/L 136-145 sbzz=575) POTASSIUM (BEAKER) (test 3.6 meq/L 3.5-5.1 shuy=821) CHLORIDE (BEAKER) (test 108 meq/L 98-107 qhct=131) CO2 (BEAKER) (test 20 meq/L 22-29 yffg=329) BLOOD UREA NITROGEN 14 mg/dL 7-21 (BEAKER) (test dxly=591) CREATININE (BEAKER) (test 0.66 mg/dL 0.57-1.25 impm=342) GLUCOSE RANDOM (BEAKER) 87 mg/dL 70-105 (test ahgk=868) CALCIUM (BEAKER) (test 9.1 mg/dL 8.4-10.2 zmmj=274) EGFR (BEAKER) (test 121 mL/min/1.73 sq m ESTIMATED GFR IS NOT dodx=7756) ACCURATE CREATININE CLEARANCE IN PREDICTING GLOMERULAR FILTRATION RATE. ESTIMATED GFR IS NOT APPLICABLE FOR DIALYSIS PATIENTS. [id number] 06:37:00 Test Item Value Reference Range Comments PROTIME (BEAKER) (test kown=982) 14.4 seconds 11.7-14.7 INR (BEAKER) (test rmuo=998) 1.1 <=5.9 PARTIAL THROMBOPLASTIN TIME (BEAKER) (test 30.8 seconds 22.5-36.0 tjzt=135) RECOMMENDED COUMADIN/WARFARIN INR THERAPY RANGESSTANDARD DOSE: 2.0 - 3.0 Includes: PROPHYLAXIS forvenous thrombosis, systemic embolization; TREATMENT for venous thrombosis and/or pulmonary embolus.HIGH RISK: Target INR is 2.5-3.5 for patients with mechanical heart valves.CT, [id number] 18:04:00FINAL REPORT CT scan of the abdomen [...] MDReport Verified Date/Time: 06/11/2018 18:04:02 Reading Location: [facility] [id number] Ortho Consult Reading Room PREGNANCY SCREEN, [id number] 15:46:00 Test Item Value Reference Range Comments TEST URINE (BEAKER) (test nged=020) Negative URINALYSIS W/ REFLEX URINE [id number] 12:32:00 Test Item Value Reference Range Comments COLOR (BEAKER) (test yywf=579) Light Yellow CLARITY (BEAKER) (test mtua=548) Cloudy SPECIFIC GRAVITY UA (BEAKER) (test mpgd=223) 1.013 1.001-1.035 PH UA (BEAKER) (test lifa=176) 7.5 5.0-8.0 PROTEIN UA (BEAKER) (test cecs=102) 30 mg/dL Negative GLUCOSE UA (BEAKER) (test oadp=963) Negative Negative KETONES UA (BEAKER) (test deii=984) Trace Negative BILIRUBIN UA (BEAKER) (test wcms=915) Negative Negative BLOOD UA (BEAKER) (test zpig=679) Small Negative NITRITE UA (BEAKER) (test bmok=382) Positive Negative LEUKOCYTE ESTERASE UA (BEAKER) (test zjbc=373) Large Negative UROBILINOGEN UA (BEAKER) (test kuft=021) 0.2 mg/dL 0.2-1.0 RBC UA (BEAKER) (test gfbx=576) 2 /HPF WBC UA (BEAKER) (test myvi=885) 5 /HPF BACTERIA (BEAKER) (test louk=527) Occasional MUCUS (BEAKER) (test nkcz=5254) Rare SQUAMOUS EPITHELIAL (BEAKER) (test aqsq=028) 1 /HPF HYALINE CASTS (BEAKER) (test putp=713) 2 /LPF SOURCE(BEAKER) (test ypcc=7321) URINALYSIS W/ [id number] 12:32:00 Test Item Value Reference Range Comments COLOR (BEAKER) (test tscl=952) Yellow CLARITY (BEAKER) (test nqeb=223) Hazy SPECIFIC GRAVITY UA (BEAKER) (test ngyw=983) 1.012 1.001-1.035 PH UA (BEAKER) (test tfmv=866) 8.0 5.0-8.0 PROTEIN UA (BEAKER) (test rype=113) 50 mg/dL Negative GLUCOSE UA (BEAKER) (test ylwy=815) Negative Negative KETONES UA (BEAKER) (test ojei=057) Negative Negative BILIRUBIN UA (BEAKER) (test pboa=394) Negative Negative BLOOD UA (BEAKER) (test kwvo=339) Moderate Negative NITRITE UA (BEAKER) (test yoex=932) Positive Negative LEUKOCYTE ESTERASE UA (BEAKER) (test Large Negative ftof=759) UROBILINOGEN UA (BEAKER) (test cbxf=075) 0.2 mg/dL 0.2-1.0 RBC UA (BEAKER) (test dngv=196) 6 /HPF WBC UA (BEAKER) (test flgl=807) 10 /HPF BACTERIA (BEAKER) (test ywyy=730) Many MUCUS (BEAKER) (test pyse=2361) Many CRYSTALS, URINE (BEAKER) (test abif=5865) Occasional SOURCE(BEAKER) (test ubah=1881) Urine, Urostomy BASIC METABOLIC [id number] 06:01:00 Test Item Value Reference Range Comments SODIUM (BEAKER) (test 139 meq/L 136-145 crru=936) POTASSIUM (BEAKER) (test 3.6 meq/L 3.5-5.1 ufoo=998) CHLORIDE (BEAKER) (test 108 meq/L 98-107 fdxu=770) CO2 (BEAKER) (test 23 meq/L 22-29 tohf=963) BLOOD UREA NITROGEN 12 mg/dL 7-21 (BEAKER) (test aino=045) CREATININE (BEAKER) (test 0.66 mg/dL 0.57-1.25 wkfe=672) GLUCOSE RANDOM (BEAKER) 75 mg/dL 70-105 (test upak=366) CALCIUM (BEAKER) (test 8.7 mg/dL 8.4-10.2 olud=513) EGFR (BEAKER) (test 121 mL/min/1.73 sq m ESTIMATED GFR IS NOT pnph=6137) ACCURATE CREATININE CLEARANCE IN PREDICTING GLOMERULAR FILTRATION RATE. ESTIMATED GFR IS NOT APPLICABLE FOR DIALYSIS PATIENTS. LACTIC ACID, VENOUS, WHOLE [id number] 05:31:00 Test Item Value Reference Range Comments LACTATE BLOOD VENOUS (2) (BEAKER) (test 0.8 mmol/L 0.5-2.2 fxwy=5796) Effective 01/01/2016: Units/Reference Range ChangeNew: 0.5-2.2 mmol/L Previous: 5 -20 mg/[id number] 05:20:00 Test Item Value Reference Range Comments PARTIAL THROMBOPLASTIN TIME (BEAKER) (test 35.9 seconds 22.5-36.0 voju=816) PROTHROMBIN [id number] 05:19:00 Test Item Value Reference Range Comments PROTIME (BEAKER) (test jmkd=058) 16.4 seconds 11.7-14.7 INR (BEAKER) (test eoha=092) 1.3 <=5.9 RECOMMENDED COUMADIN/WARFARIN INR THERAPY RANGESSTANDARD DOSE: 2.0 - 3.0 Includes: PROPHYLAXIS forvenous thrombosis, systemic embolization; TREATMENT for venous thrombosis and/or pulmonary embolus.HIGH RISK: Target INR is 2.5-3.5 for patients with mechanical heart valves.CBC W/PLT COUNT & AUTO [id number] 05:08:00 Test Item Value Reference Range Comments WHITE BLOOD CELL COUNT 12.2 K/ L 3.5-10.5 (BEAKER) (test xmum=831) RED BLOOD CELL COUNT (BEAKER) 4.90 M/ L 3.93-5.22 (test iehj=057) HEMOGLOBIN (BEAKER) (test 10.6 GM/DL 11.2-15.7 hrkn=287) HEMATOCRIT (BEAKER) (test 36.6 % 34.1-44.9 upoh=339) MEAN CORPUSCULAR VOLUME 74.7 fL 79.4-94.8 (BEAKER) (test kizo=893) MEAN CORPUSCULAR HEMOGLOBIN 21.6 pg 25.6-32.2 (BEAKER) (test lirf=368) MEAN CORPUSCULAR HEMOGLOBIN 29.0 GM/DL 32.2-35.5 CONC (BEAKER) (test qlhs=683) RED CELL DISTRIBUTION WIDTH 20.5 % 11.7-14.4 (BEAKER) (test apqn=635) PLATELET COUNT (BEAKER) (test 340 K/CU MM 150-450 rute=638) MEAN PLATELET VOLUME (BEAKER) 9.4 fL 9.4-12.3 Discordant MPV result (test vfep=931) compared to previous one; Clinical correlation required. NUCLEATED RED BLOOD CELLS 0 /100 WBC 0-0 (BEAKER) (test xcig=370) NEUTROPHILS RELATIVE PERCENT 89 % (BEAKER) (test tbxd=047) LYMPHOCYTES RELATIVE PERCENT 5 % (BEAKER) (test cdrr=218) MONOCYTES RELATIVE PERCENT 4 % (BEAKER) (test ddbz=909) EOSINOPHILS RELATIVE PERCENT 2 % (BEAKER) (test ifjx=138) BASOPHILS RELATIVE PERCENT 0 % (BEAKER) (test dpmx=016) NEUTROPHILS ABSOLUTE COUNT 10.83 K/ L 1.56-6.13 (BEAKER) (test bdzb=286) LYMPHOCYTES ABSOLUTE COUNT 0.60 K/ L 1.18-3.74 (BEAKER) (test cdzs=948) MONOCYTES ABSOLUTE COUNT 0.45 K/ L 0.24-0.36 (BEAKER) (test cogf=535) EOSINOPHILS ABSOLUTE COUNT 0.19 K/ L 0.04-0.36 (BEAKER) (test gjkw=994) BASOPHILS ABSOLUTE COUNT 0.03 K/ L 0.01-0.08 (BEAKER) (test esaa=428) IMMATURE 1 % 0-1 GRANULOCYTES-RELATIVE PERCENT (BEAKER) (test cizw=2080) LACTIC ACID, ARTERIAL, WHOLE [id number] 02:05:00 Test Item Value Reference Range Comments LACTATE BLOOD ARTERIAL (2) 0.6 mmol/L 0.5-2.2 Specimen slightly hemolyzed (BEAKER) (test bayo=4130) Effective 01/01/2016: Units/Reference Range ChangeNew: 0.5-2.2 mmol/L Previous: 5 -20 mg/[id number] 01:43:00 Test Item Value Reference Range Comments MAGNESIUM (BEAKER) (test 2.0 mg/dL 1.6-2.6 Specimen moderately hemolyzed ikxt=012) [id number] 01:43:00 Test Item Value Reference Range Comments PHOSPHORUS (BEAKER) (test 3.0 mg/dL 2.3-4.7 Specimen moderately hemolyzed ebis=222) COMPREHENSIVE METABOLIC [id number] 01:43:00 Test Item Value Reference Range Comments TOTAL PROTEIN (BEAKER) 7.3 gm/dL 6.0-8.3 Specimen moderately (test mjlf=824) hemolyzed ALBUMIN (BEAKER) (test 3.3 g/dL 3.5-5.0 Specimen moderately golu=4500) hemolyzed ALKALINE PHOSPHATASE 56 U/L 40-150 (BEAKER) (test zqiz=863) BILIRUBIN TOTAL (BEAKER) 0.4 mg/dL 0.2-1.2 Specimen moderately (test vwmx=874) hemolyzed SODIUM (BEAKER) (test 133 meq/L 136-145 ohsz=130) POTASSIUM (BEAKER) (test 4.5 meq/L 3.5-5.1 Specimen moderately tsou=579) hemolyzed CHLORIDE (BEAKER) (test 108 meq/L 98-107 dtvf=595) CO2 (BEAKER) (test 15 meq/L 22-29 ahih=766) BLOOD UREA NITROGEN 12 mg/dL 7-21 (BEAKER) (test gbcu=272) CREATININE (BEAKER) (test 0.61 mg/dL 0.57-1.25 Specimen moderately phos=730) hemolyzed GLUCOSE RANDOM (BEAKER) 92 mg/dL 70-105 (test hqjd=598) CALCIUM (BEAKER) (test 8.3 mg/dL 8.4-10.2 tijb=967) AST (SGOT) (BEAKER) (test 35 U/L 5-34 Specimen moderately bdnb=326) hemolyzed ALT (SGPT) (BEAKER) (test 14 U/L 6-55 Specimen moderately dite=009) hemolyzed EGFR (BEAKER) (test 133 mL/min/1.73 sq ESTIMATED GFR IS NOT fvzi=4497) m ACCURATE CREATININE CLEARANCE IN PREDICTING GLOMERULAR FILTRATION RATE. ESTIMATED GFR IS NOT APPLICABLE FOR DIALYSIS PATIENTS. CBC W/PLT COUNT & AUTO [id number] 01:20:00 Test Item Value Reference Range Comments WHITE BLOOD CELL COUNT (BEAKER) (test rqcs=583) 21.0 K/ L 3.5-10.5 RED BLOOD CELL COUNT (BEAKER) (test qgbp=547) 3.83 M/ L 3.93-5.22 HEMOGLOBIN (BEAKER) (test zcgb=082) 8.4 GM/DL 11.2-15.7 HEMATOCRIT (BEAKER) (test zkfo=449) 28.3 % 34.1-44.9 MEAN CORPUSCULAR VOLUME (BEAKER) (test zzjx=701) 73.9 fL 79.4-94.8 MEAN CORPUSCULAR HEMOGLOBIN (BEAKER) (test 21.9 pg 25.6-32.2 dwjw=603) MEAN CORPUSCULAR HEMOGLOBIN CONC (BEAKER) (test 29.7 GM/DL 32.2-35.5 boal=575) RED CELL DISTRIBUTION WIDTH (BEAKER) (test 20.3 % 11.7-14.4 yhza=148) PLATELET COUNT (BEAKER) (test xwvj=611) 398 K/CU MM 150-450 MEAN PLATELET VOLUME (BEAKER) (test dmqi=275) 10.2 fL 9.4-12.3 NUCLEATED RED BLOOD CELLS (BEAKER) (test 0 /100 WBC 0-0 umoh=872) NEUTROPHILS RELATIVE PERCENT (BEAKER) (test 87 % iovn=402) LYMPHOCYTES RELATIVE PERCENT (BEAKER) (test 6 % qvjc=046) MONOCYTES RELATIVE PERCENT (BEAKER) (test 6 % smox=773) EOSINOPHILS RELATIVE PERCENT (BEAKER) (test 1 % wxzw=879) BASOPHILS RELATIVE PERCENT (BEAKER) (test 0 % tdti=262) NEUTROPHILS ABSOLUTE COUNT (BEAKER) (test 18.34 K/ L 1.56-6.13 jvaw=745) LYMPHOCYTES ABSOLUTE COUNT (BEAKER) (test 1.15 K/ L 1.18-3.74 ginu=432) MONOCYTES ABSOLUTE COUNT (BEAKER) (test 1.21 K/ L 0.24-0.36 nhzt=040) EOSINOPHILS ABSOLUTE COUNT (BEAKER) (test 0.13 K/ L 0.04-0.36 zidt=234) BASOPHILS ABSOLUTE COUNT (BEAKER) (test 0.06 K/ L 0.01-0.08 itih=273) IMMATURE GRANULOCYTES-RELATIVE PERCENT (BEAKER) 1 % 0-1 (test xghx=5232)
--- NOTE | 2018-12-13 13:06 | RAD REPORT ---
EXAM DESCRIPTION: RAD - Chest Single View - 12/13/2018 1:00 pm CLINICAL HISTORY: COUGH Chest pain. COMPARISON: Chest Pa And Lat (2 Views) dated 10/28/2018; Chest Single View dated 10/20/2018; Chest Sing le View dated 10/20/2018; Chest Single View dated 04/11/2018 FINDINGS: Portable technique limits examination quality. Moderate chronic left pleural effusion is seen with tracheostomy tubing in place. Prominent dextrosco liosis of the thoracic spine. Vena cava filter is seen in the SVC. The right lung appears grossly alex ar.Heart size is normal.
[2018-12-13 13:18] LABS: Urine Blood 1+ (NEG); Urine Glucose NEGATIVE (NEG); Urine Protein 1+ (NEG)
[2018-12-13] MEDS ORDERED: ONDANSETRON 4 MG/2 ML VIAL ONE (13:35)
[2018-12-13] MEDS ORDERED: NA CHLORIDE 0.9% 1,000 ML ONE (13:35)
[2018-12-13] MEDS ORDERED: FENTANYL CITR 100 MCG/2 ML ONE (13:35)
[2018-12-13 13:51] LABS: ALT/SGPT 18 U/L (12-78); AST/SGOT 15 U/L (15-37); Albumin 3.6 g/dL (3.4-5.0); Alkaline Phosphatase 76 U/L (45-117); BUN Blood Urea Nitrogen 16 mg/dL (7-18); Bicarbonate 21 mmol/L (21-32); Bilirubin Direct 0.1 mg/dL (0-0.2); Bilirubin Total 0.3 mg/dL (0.2-1.0); CKMB Creatine Kinase MB < 1.0 ng/mL (0.3-3.6); Creatine Phosphokinase 28 U/L (26-192); Glucose Level 80 mg/dL (74-106); Lipase 199 U/L (73-393); Potassium 4.7 mmol/L (3.5-5.1); Protein, Total 9.3 g/dL (6.4-8.2); Sodium Level 140 mmol/L (136-145); Troponin (Emerg Dept Use Only) < 0.02 ng/mL (0.0-0.045)
--- NOTE | 2018-12-13 13:56 | RAD REPORT ---
EXAM DESCRIPTION: CT - Stone Protocol - 12/13/2018 1:34 pm CLINICAL HISTORY: Abdominal pain. Right flank pain COMPARISON: September 2018 TECHNIQUE: Computed axial tomography of the abdomen pelvis was obtained without oral or IV contrast. Lack of IV and oral contrast limits evaluation of solid organs, bowel, and vessels. Coronal reformat alda images were obtained and reviewed. All CT scans are performed using dose optimization technique as appropriate and may include automated exposure control or mA/KV adjustment according to patient size. FINDINGS: Left pleural effusion has decreased in size and is moderate Left lower quadrant colostomy. Right lower quadrant ileal conduit Bilateral renal calculi. Multiple right ureteral calculi which vary in size from 3 to 10 millimeters. Moderate right hydronephrosis The liver, spleen, pancreas and adrenals appear grossly normal There is no evidence of diverticulitis. IMPRESSION: Multiple right ureteral calculi resulting in moderate right hydronephrosis
--- NOTE | 2018-12-13 13:57 | RAD REPORT ---
EXAM DESCRIPTION: CT - Thorax Wo Con - 12/13/2018 1:44 pm CLINICAL HISTORY: Chest pain COMPARISON: 2014 TECHNIQUE: Computed axial tomography of the chest was obtained. Contrast was not requested. All CT scans are performed using dose optimization technique as appropriate and may include automated exposure control or mA/KV adjustment according to patient size. FINDINGS: The evaluation of mediastinum, ariel and vessels is limited secondary to lack of IV contras t administration. Left ventricular shunt has its tip in the left pleural space. A moderate left pleural effusion is present with mild left basilar atelectasis. The right lung is clear. No mediastinal or hilar lymphadenopathy is noted A pericardial effusion not seen Marked scoliosis is present . IMPRESSION: Moderate left pleural effusion
[2018-12-13] MEDS ORDERED: HYDROMORPHONE HCL 0.5 MG/0.5 ML INJ ONE ×2 (14:32→16:07)
[2018-12-13 14:53] LABS: Protime INR 1.15
[2018-12-13 15:26] LABS: Absolute Lymphocytes (CBC) 1.3 K/uL (0.7-4.9); Absolute Monocytes 1.3 K/uL (0.1-1.3); Absolute Neutrophil 12.5 K/uL (1.8-8.0); Basophils % 0.2 % (0-1.3); Eosinophils % 0.4 % (0-4.4); Hematocrit 33.6 % (36.0-45.0); Lymphocytes % 8.3 % (15.3-44.8); MPV 9.1 fL (7.6-11.3); Monocytes % 8.7 % (3.3-12.3); RBC Red Blood Cell Count 4.83 M/uL (3.86-4.86)
[2018-12-13 15:31] LABS: Urine Amorphous Sediment 2+ /HPF (NONE SEEN); Urine Bacteria 20-50 /HPF (<20); Urine Culture Reflex Order REFLEXED; Urine Mucus 2+ /HPF (NONE SEEN)
[2018-12-13 15:48] LABS: Platelet Estimate INCR
[2018-12-13 15:49] LABS: Anisocytosis 3+; Blood Morphology Comment NOTED (NOT SEEN); Hypochromasia 1+
[2018-12-13 15:50] LABS: Elliptocytes 1+
[2018-12-13] MEDS ORDERED: CEFTRIAXONE/SWI 1gm 1 GM/10 ML SYR ONE (16:02)
--- NOTE | 2018-12-13 16:45 | EDPHYS ---
Physician Documentation [facility] Name: Leila Aquino Age: 38 yrs Sex: Female : 1980 Arrival Date: 12/13/2018 Time: 11:39 Bed 8 Private MD: ED Physician Rudy Franklin HPI: 12/13 16:40 This 38 yrs old Black Female presents to ER via EMS with complaints of Flank Pain. gs 16:40 The patient complains of pain in the right low back. The pain radiates to the gs suprapubic area. Onset: The symptoms/episode began/occurred 2 day(s) ago, and became worse and became persistent. Modifying factors: The symptoms are alleviated by nothing. the symptoms are aggravated by nothing. Associated signs and symptoms: Pertinent negatives: fever, vomiting. Severity of pain: At its worst the pain was severe in the emergency department the pain is unchanged. The patient has experienced similar episodes in the past, a few times. Historical: - Allergies: 11:50 Latex, Natural Rubber; ph 11:50 Morphine; ph 11:50 Vancomycin; ph - Home Meds: 11:50 albuterol sulfate Oral [Active]; amlodipine 10 mg tab 1 tab once daily [Active]; ph docusate sodium 100 mg Oral cap 1 cap 2 times per day [Active]; Zolpidem Tartrate Oral [Active]; - PMHx: 11:50 ADD/ADHD; Anemia; Asthma; DVT; Hypertension; Kidney stones; Osteomyelitis-L foot; ph osteomyolitis L foot; Sepsis; spina bifida; Upper extremity DVT- L arm; UTI; - PSHx: 11:50 Colostomy; urostomy; "multiple abdominal surgeries"; ph - Immunization history:: Adult Immunizations unknown. - Social history:: The patient lives at home. - Ebola Screening: : No symptoms or risks identified at this time. ROS: 16:40 All other systems are negative. gs Exam: 16:40 Head/Face: Normocephalic, atraumatic. Eyes: Pupils equal round and reactive to light, gs extra-ocular motions intact. Lids and lashes normal. Conjunctiva and sclera are non-icteric and not injected. Cornea within normal limits. Periorbital areas with no swelling, redness, or edema. ENT: Nares patent. No nasal discharge, no septal abnormalities noted. Tympanic membranes are normal and external auditory canals are clear. Oropharynx with no redness, swelling, or masses, exudates, or evidence of obstruction, uvula midline. Mucous membranes moist. Neck: Trachea midline, no thyromegaly or masses palpated, and no cervical lymphadenopathy. Supple, full range of motion without nuchal rigidity, or vertebral point tenderness. No Meningismus. Chest/axilla: Normal chest wall appearance and motion. Nontender with no deformity. No lesions are appreciated. 16:40 Respiratory: Lungs have equal breath sounds bilaterally, clear to auscultation and percussion. No rales, rhonchi or wheezes noted. No increased work of breathing, no retractions or nasal flaring. Back: No spinal tenderness. No costovertebral tenderness. Full range of motion. Skin: Warm, dry with normal turgor. Normal color with no rashes, no lesions, and no evidence of cellulitis. 16:40 Constitutional: The patient appears alert, awake. 16:40 Cardiovascular: Rate: tachycardic, Rhythm: regular. 16:40 Abdomen/GI: Palpation: abdomen is soft and non-tender. 16:40 Musculoskeletal/extremity: Exam is negative for acute changes. 16:40 Neuro: Exam negative for acute changes, Orientation: to person, place, time \\T\\ situation. Cranial nerves: CN II- XII are normal as tested, Motor: lower extr paralysis stable. Vital Signs: 11:40 BP 125 / 92; Pulse 120; Resp 18; Temp 99.3; Pulse Ox 97% ; Weight 64.41 kg; ph 16:55 BP 146 / 93; Pulse 104 MON; Resp 16; Temp 99.3(O); Pulse Ox 98% on R/A; sg MDM: 12:05 Patient medically screened. gs 16:40 Differential diagnosis: nephrolithiasis, pyelonephritis, UTI, diverticulitis. Data gs reviewed: vital signs, nurses notes, old medical records, lab test result(s), radiologic studies. Counseling: I had a detailed discussion with the patient and/or guardian regarding: the historical points, exam findings, and any diagnostic results supporting the discharge/admit diagnosis, lab results, radiology results, the need to transfer to another facility. Response to treatment: the patient's symptoms have markedly improved after treatment. ED course: dr cordova cannot operate on someone with urostomy. 12/13 12:06 Order name: Basic Metabolic Panel; Complete Time: 13:59 12/13 12:06 Order name: CBC with Diff 12/13 12:06 Order name: Ckmb; Complete Time: 13:59 12/13 12:06 Order name: CPK; Complete Time: 13:59 12/13 12:06 Order name: Lactate; Complete Time: 13:59 12/13 12:06 Order name: LFT's; Complete Time: 13:59 12/13 12:06 Order name: Lipase; Complete Time: 13:59 12/13 12:06 Order name: Procalcitonin; Complete Time: 14:39 12/13 12:06 Order name: Protime (+inr); Complete Time: 15:41 12/13 12:06 Order name: Troponin (emerg Dept Use Only); Complete Time: 13:59 12/13 12:06 Order name: Urine Microscopic Only; Complete Time: 15:41 12/13 12:49 Order name: Urine Dipstick--Ancillary (enter results); Complete Time: 13:59 12/13 12:49 Order name: Urine --Ancillary (enter results); Complete Time: 13:59 12/13 12:06 Order name: Chest Single View XRAY; Complete Time: 13:59 12/13 12:06 Order name: Accucheck; Complete Time: 13:55 12/13 12:06 Order name: Cardiac monitoring; Complete Time: 13:55 12/13 12:06 Order name: EKG - Nurse/Tech; Complete Time: 13:55 12/13 12:06 Order name: IV Saline Lock - Large Bore; Complete Time: 13:56 12/13 12:06 Order name: CT Stone Protocol; Complete Time: 13:59 12/13 13:42 Order name: Thorax Wo Con; Complete Time: 13:59 EDMS 12/13 15:37 Order name: Urine Culture EDMO 12/13 15:44 Order name: Manual Differential EDMS 12/13 12:06 Order name: Labs collected and sent; Complete Time: 13:56 12/13 12:06 Order name: O2 Per Protocol; Complete Time: 13:56 12/13 12:06 Order name: O2 Sat Monitoring; Complete Time: 13:56 12/13 12:06 Order name: Urine Dipstick-Ancillary (obtain specimen); Complete Time: 13:56 12/13 13:47 Order name: Labs - recollect needed; Complete Time: 15:47 bd Administered Medications: 13:30 Drug: fentaNYL (PF) 50 mcg Route: IVP; Site: right upper arm; sg 14:05 Follow up: Response: No adverse reaction; Pain is unchanged, physician notified 13:30 Drug: Zofran 4 mg Route: IVP; Site: right upper arm; sg 14:22 Drug: Dilaudid 0.5 mg Route: IVP; Site: right upper arm; sg 15:55 Drug: NS 0.9% 1000 ml Route: IV; Rate: 125 ml/hr; Site: right upper arm; sg 15:55 Drug: Rocephin - (cefTRIAXone) 1 grams Route: IVPB; Infused Over: 30 mins; Site: right sg upper arm; 15:55 Drug: Dilaudid 0.5 mg Route: IVP; Site: right upper arm; sg Disposition: 12/13/18 16:44 Transfer ordered to [facility]. Diagnosis are Calculus of ureter, Hydronephrosis with renal and ureteral calculous obstruction. - Reason for transfer: Higher level of care. - Accepting physician is ana. - Condition is Stable. - Problem is new. - Symptoms have improved. Signatures: Dispatcher [employer] EDMO Vilma Mcintyre Steven, RN RN Carmina Escobar RN RN FranklinRudy MD MD Corrections: (The following items were deleted from the chart) 18:11 12:07 BLOOD CULTURE*+[id number].BRZ ordered. [facility] EDMO 18:26 16:44 12/13/2018 16:44 Transfer ordered to [facility]. sg Diagnosis is Calculus of ureter; Hydronephrosis with renal and ureteral calculous obstruction. Reason for transfer: Higher level of care. Accepting physician is ana. Condition is Stable. Problem is new. Symptoms have improved. gs
--- NOTE | 2018-12-13 16:45 | ER ---
Nurse's Notes [facility] Name: Leila Aquino Age: 38 yrs Sex: Female : 1980 Arrival Date: 12/13/2018 Time: 11:39 Bed 8 Private MD: Diagnosis: Calculus of ureter;Hydronephrosis with renal and ureteral calculous obstruction Presentation: 12/13 11:42 Presenting complaint: EMS states: Pt c/o of R sided flank pain that began at approx ph 0900 today, also reports N/V, states that she was dx w/ kidney stones approx 1 week ago after MRI, pt febrile for EMS at 101F oral, tachycardic at 120 bpm, other VSS. Transition of care: patient was not received from another setting of care. Onset of symptoms was December 13, 2018. Risk Assessment: Do you want to hurt yourself or someone else? Patient reports no desire to harm self or others. Initial Sepsis Screen: Does the patient meet any 2 criteria? HR > 90 bpm. Care prior to arrival: None. 11:42 Method Of Arrival: EMS: [facility] ph 11:42 Acuity: [place] 3 ph Historical: - Allergies: 11:50 Latex, Natural Rubber; ph 11:50 Morphine; ph 11:50 Vancomycin; ph - Home Meds: 11:50 albuterol sulfate Oral [Active]; amlodipine 10 mg tab 1 tab once daily [Active]; ph docusate sodium 100 mg Oral cap 1 cap 2 times per day [Active]; Zolpidem Tartrate Oral [Active]; - PMHx: 11:50 ADD/ADHD; Anemia; Asthma; DVT; Hypertension; Kidney stones; Osteomyelitis-L foot; ph osteomyolitis L foot; Sepsis; spina bifida; Upper extremity DVT- L arm; UTI; - PSHx: 11:50 Colostomy; urostomy; "multiple abdominal surgeries"; ph - Immunization history:: Adult Immunizations unknown. - Social history:: The patient lives at home. - Ebola Screening: : No symptoms or risks identified at this time. Screenin:50 Abuse screen: Denies threats or abuse. Denies injuries from another. Nutritional ph screening: No deficits noted. Tuberculosis screening: No symptoms or risk factors identified. Fall Risk No fall in past 12 months (0 pts). Secondary diagnosis (15 points) impaired mobility, IV access (20 points). Ambulatory Aid- None/Bed Rest/Nurse Assist (0 pts). Gait- Impaired (20 pts.). Mental Status- Oriented to own ability (0 pts). Total Toribio Fall Scale indicates High Risk Score (45 or more points). Fall prevention measures have been instituted. Side Rails Up X 2 Placed Close to Nursing Station Frequent Obs/Assessments Occuring As available patient and family educated on Fall Prevention Program and Strategies. Assessment: 14:26 Reassessment: Patient appears in no apparent distress at this time. phlebotomy at sg bedside for attempt at a recollection of lab specimen. 14:30 Reassessment: Patient appears in no apparent distress at this time. Patient and/or sg family updated on plan of care and expected duration. Pain level reassessed. pt requesting ICE chips, pt given lemon glycerin swabs for comfort. 15:38 Reassessment: Patient appears in no apparent distress at this time. Patient and/or sg family updated on plan of care and expected duration. Pain level reassessed. Patient is alert, oriented x 3, equal unlabored respirations, skin warm/dry/pink. Reassessment: pt requesting more pain medication at this time, pt educated to remain NPO per provider order until urology is consulted, pt stated understanding, pt provided with lemon glycerin swabs for comfort, awaiting new orders at this time. Vital Signs: 11:40 BP 125 / 92; Pulse 120; Resp 18; Temp 99.3; Pulse Ox 97% ; Weight 64.41 kg; ph 16:55 BP 146 / 93; Pulse 104 MON; Resp 16; Temp 99.3(O); Pulse Ox 98% on R/A; ED Course: 11:39 Patient arrived in ED. ph 11:44 Rudy Franklin MD is Attending Physician. gs 11:47 Triage completed. ph 11:50 Arm band placed on. ph 11:51 Patient has correct armband on for positive identification. Bed in low position. Call ph light in reach. Side rails up X2. Pulse ox on. NIBP on. 12:10 Radiology exam delayed due to test not completed at this time. [id number] 12:55 X-ray completed. Portable x-ray completed in exam room. Patient tolerated procedure sw well. 12:57 Missed attempt(s): 22 gauge in right antecubital area. Bleeding controlled, band aid ph applied, catheter tip intact. 12:59 Chest Single View XRAY In Process Unspecified. EDMS 13:21 Inserted saline lock: 24 gauge in right upper arm, using aseptic technique. iw 13:32 CT completed. Patient tolerated procedure well. Patient moved to CT via stretcher. vr Patient moved back from CT. 13:33 Javid Navarrete, RN is Primary Nurse. sg 13:34 CT Stone Protocol In Process Unspecified. EDMS 13:44 Thorax Wo Con In Process Unspecified. EDMS Administered Medications: 13:30 Drug: fentaNYL (PF) 50 mcg Route: IVP; Site: right upper arm; sg 14:05 Follow up: Response: No adverse reaction; Pain is unchanged, physician notified sg 13:30 Drug: Zofran 4 mg Route: IVP; Site: right upper arm; sg 14:22 Drug: Dilaudid 0.5 mg Route: IVP; Site: right upper arm; sg 15:55 Drug: NS 0.9% 1000 ml Route: IV; Rate: 125 ml/hr; Site: right upper arm; sg 15:55 Drug: Rocephin - (cefTRIAXone) 1 grams Route: IVPB; Infused Over: 30 mins; Site: right sg upper arm; 15:55 Drug: Dilaudid 0.5 mg Route: IVP; Site: right upper arm; sg Outcome: 16:44 ER care complete, transfer ordered by . gs 18:26 Patient left the ED. sg Signatures: Dispatcher [employer] EDMS Javid Navarrete, RAJNI URBAN sg Priyanka Miller RN RN iw Davis, Victoria vr Hall, Patricia, RN RN Alana Maxwell Gregory, MD MD gs Garcia, Aurora [id number]
[2018-12-13 18:41] VITALS: TEMP 99.3
[2018-12-13 18:43] VITALS: BP 146/93; O2SAT 98
== END 2018-12-13 18:26 | disposition short-term general hospital (02) ==
LOC: ER 11:28
DX: N13.2 Hydronephrosis with renal and ureteral calculous obstruction (principal); I10 Essential (primary) hypertension; J45.909 Unspecified asthma, uncomplicated; Z88.3 Allergy status to other anti-infective agents; Z88.5 Allergy status to narcotic agent; Z87.442 Personal history of urinary calculi; Z91.040 Latex allergy status; Z91.048 Other nonmedicinal substance allergy status
CPT/HCPCS: 87088; 85025; 87086; 80048; 36415; 82550; 81025; 85610; 80076; 83605; 84484; 82553; 83690; 84145; 71250; 76377; 74176; 71045; J3010; J1170 ×2; J0696; J7030; J2405; 81003; 81015; 96374; 96375; 99284

== ENCOUNTER 2019-01-21 19:17 | Emergency (ER) | payer OTHER ==
--- OUTSIDE RECORDS SUMMARY | 2019-01-21 19:22 | XMS REPORT | Clinical Summary ---
:1980 Author Organization [facility] Address [address] [place] [address] Care Team Providers Name Role Phone Beverley [...] PROCEDURE DONE OUTSIDE OR 06/12/2018 Anesthesia Event Maidson Hdz CRNA 06/10/2018 - Hospital Encounter General Internal Cathi, Acute cystitis without hematuria; 06/13/2018 Medicine Ras Evans, Hydronephrosis with urinary obstruction due to renal calculus; Spina bifida of thoracolumbar region with hydrocephalus (HCC); Opal Becker Sepsis, due to unspecified organism (HCC); MD Valerie Right ureteral stone Rashida King MD after 01/20/2018 Social History Tobacco Use Types Packs/Day Years [...] Not on file Implants Implanted Type Area Inspector Filters Device Shelf Model / Identifier Expiration Date Serial / Lot Matrix Floseal Hemo W/O [id number] - [id number] Cement/Fi NAVARRO:BIOSCI [id number] / Implanted: Qty: 1 on 06/28/2018 by Hao Welch MD ller/Ramila / kalpana [id number] Procedures Procedure Name Priority Date/Time Associated Comments Diagnosis TRANSFUSE Routine 10/06/2018 5:33 LEUKO-REDUCED RED PM COMPOSING ROOM SUPERVISOR BLOOD CELLS TRANSFUSION SERVICE 06/30/2018 6:01 REPORT [...] procedure are in the results section. [place] PHYSICIST ACOUSTICS IN OR 30 Routine 06/28/2018 9:20 Results [...] procedure are in the results section. after 01/20/2018 Results Transfuse Leuko-Red RBC (10/06/2018 5:33 PM COMPOSING ROOM SUPERVISOR)TRANSFUSION SERVICE REPORT - SCAN (06/30/2018 6:01 PM CDT)Only the most recent of3 resultswithin the time period is included. Narrative Performed At Prepare Leuko-Red RBC (06/29/2018 11:54 PM CDT) CROSSMATCH COMPATIBLE SAFETRACE TX Unit ABO A Neg SAFETRACE TX UNIT NUMBER [id number] [place] Status TRANSFUSED SAFETRACE TX Blood Bank Product RED BLOOD CELLS SAFETRACE TX PRODUCT CODE [id number] SAFETRACE [place] CROSSMATCH COMPATIBLE SAFETRACE TX Unit ABO A Neg SAFETRACE TX UNIT NUMBER [id number] SAFET[place]ACE TX Status TRANSFUSED SAFET[place]ACE [place] Blood Bank Product RED BLOOD CELLS [place] PRODUCT CODE [id number] [place] Specimen Other Performing Organization Address City/State/Zipcode Phone Number [place] CBC with platelet count + automated diff (06/29/2018 5:26 AM CDT)Only the most recent of9 resultswithin the time period is included. WBC 9.2 3.5 - 10.5 K/L [facility] RBC 4.41 3.93 - 5.22 M/L [facility] Hemoglobin 10.1 (L) 11.2 - 15.7 GM/DL [facility] Hematocrit 33.7 (L) 34.1 - 44.9 % [facility] MCV 76.4 (L) 79.4 - 94.8 fL [facility] MCH 22.9 (L) 25.6 - 32.2 pg [facility] MCHC 30.0 (L) 32.2 - 35.5 GM/DL [facility] RDW 21.2 (H) 11.7 - 14.4 % [facility] Platelets 51 (L) 150 - 450 K/CU MM [facility] MPV Comment: Unable to 9.4 - 12.[address] [facility] report due to abnormal [facility] Platelet population distribution. nRBC 0 0 - 0 /100 WBC [facility] % Neutros 71 % [facility] % Lymphs 17 % [facility] % Monos 10 % [facility] % Eos 1 % [facility] % Baso 0 % [facility] # Neutros 6.59 (H) 1.56 - 6.13 K/L [facility] # Lymphs 1.59 1.18 - 3.74 K/L [facility] # Monos 0.91 (H) 0.24 - 0.36 K/L [facility] # Eos 0.07 0.04 - 0.36 K/L [facility] # Baso 0.03 0.01 - 0.08 K/L [facility] Immature 0 0 - 1 % [facility] Granulocytes-Relative [facility] Specimen Blood Performing Organization Address City/State/Zipcode Phone Number [facility] [address] [place] [address] [phone] CENTER Basic Metabolic Panel (06/29/2018 5:26 AM CDT)Only the most recent of10 resultswithin the time period is included. Sodium 137 136 - 145 meq/L [facility] Potassium 3.7 3.5 - 5.1 meq/L [facility] Chloride 112 (H) 98 - 107 meq/L [facility] CO2 17 (L) 22 - 29 meq/L [facility] BUN 7 7 - 21 mg/dL [facility] Creatinine 0.64 0.57 - 1.25 mg/dL [facility] Glucose 82 70 - 105 mg/dL [facility] Calcium 8.9 8.4 - 10.2 mg/dL [facility] EGFR 126Comment: ESTIMATED GFR IS mL/min/1.73 sq m [facility] NOT ACCURATE CREATININE [facility] CLEARANCE IN PREDICTING GLOMERULAR FILTRATION RATE. ESTIMATED GFR IS NOT APPLICABLE FOR DIALYSIS PATIENTS. Specimen Blood Performing Organization Address City/State/Zipcode Phone Number [facility] [address] [place] [address] abdomen/pelvis without iv contrast (06/29/2018 5:12 AM CDT)Only the most recent of2 resultswithin the time period is included. Specimen Narrative Performed At FINAL REPORT [facility] INDICATION: 37-year-old female status post recent percutaneous [...] MD Report Verified Date/Time:06/29/2018 07:41:57 Reading Location: [facility] Diagnostic Imaging Reading Room - [place] [id number] Procedure Note Interface, External Ris In - [...] Report Verified Date/Time: 06/29/2018 07:41:57 Reading Location: [facility] Diagnostic Imaging Reading Room - [place] [id number] Performing Organization Address City/State/Zipcode Phone Number [facility] XR chest 1 view portable / bedside (06/28/2018 12:30 PM CDT)Only the most recent of2 resultswithin the time period is included. Specimen Narrative Performed At FINAL REPORT [facility] TECHNIQUE: Frontal chest radiograph dated 06/28/2018. CLINICAL [...] MD Report Verified Date/Time:06/28/2018 13:37:49 Reading Location: [facility] Radiology Reading Room Procedure Note Interface, External [...] Report Verified Date/Time: 06/28/2018 13:37:49 Reading Location: [facility] Radiology Reading Room Performing Organization Address City/State/Zipcode [...] analytical performance characteristics have been determined by [employer]. It has not been cleared or approved by the US Food and Drug Administration. This assay has been validated pursuant to the CLIA regulations and is used for clinical purposes. Specimen Calculus Narrative Performed At Performing Lab [employer] [facility] *[employer] [facility], [address] [place], [place] [address] Jaret Sanchez MD, PhD Performing Organization Address City/State/Zipcode Phone [place] [address] INCORPORATED [address] [facility] Anaerobic culture (06/28/2018 9:28 AM CDT) Result No anaerobes isolated [facility] Specimen Calculus Performing Organization Address City/[facility] Cent[facility] Phone Number [facility] MEDICAL [address] [place] [address] [phone] CENTER Surgically obtained culture + gram stain (06/28/2018 9:28 AM CDT) Result 2+ Enterococcus species (A) [facility] Result BOWEN ALBICANS (A) [facility] Result KLEBSIELLA PNEUMONIAE [facility] PNEUMONIAE (A) [facility] Result 1+ Vancomycin resistant [facility] Enterococcus species (A) [facility] Specimen Calculus Organism Antibiotic Method Susceptibility Enterococcus species Ampicillin [...] 1.5: Susceptible Enterococcus species Performing Organization Address City/[facility]/Zipcode Phone Number [facility] MEDICAL [address] [place] [address] [phone] CENTER [place] radio operator ground in or 30 minute increments (06/28/2018 9:20 AM CDT) Specimen Narrative Performed At FINAL REPORT [facility] History: PCNL COMPARISON: None DISCUSSION: A total [...] MD Report Verified Date/Time:06/28/2018 09:43:00 Reading Location: [facility] Radiology Reading Room Procedure Note Interface, [...] Report Verified Date/Time: 06/28/2018 09:43:00 Reading Location: [facility] Radiology Reading Room Performing Organization Address [facility] Cent[facility]ode Phone Number GE RIS Type and screen, automated (06/27/2018 8:51 PM CDT) ABO/RH AUTOMATED (BEAKER) A NEGATIVE [facility] Ab Scrn NEGATIVE [facility] Specimen Blood Performing Organization Address [facility] Centercode Phone Number [facility] [address] [place] [address] Hemoglobin and hematocrit (06/27/2018 1:50 PM CDT)Only the most recent of2 resultswithin the time period is included. Hemoglobin 6.5 (L) 11.2 - 15.7 GM/DL [facility] Hematocrit 23.1 (L) 34.1 - 44.9 % [facility] Specimen Blood Performing Organization Address [facility] Phone Number [address] [address] [phone] CENTER Urine culture (06/24/2018 12:41 PM CDT)Only the most recent of4 resultswithin the time period is included. Result >100,000 col/mL Same organism has been isolated from cultures(s) of the same body site and collection date. Repeat identification and susceptibility testing performed only after consultation with the clinical microbiology laboratory. (A) [facility] Comment: MEDICAL CENTER Refer to previous culture of Enterococcus species Result 20-29,000 col/mL Same organism has been isolated from cultures(s) of the same body site and collection date. Repeat identification and susceptibility testing performed only after consultation with the clinical microbiology laboratory. (A) [facility] Comment: MEDICAL CENTER Refer to previous culture of Enterobacter cloacae Result PSEUDOMONAS AERUGINOSA (A) [facility] Result BOWEN PARAPSILOSIS (A) [facility] Specimen Urine Organism Antibiotic Method Susceptibility Pseudomonas aeruginosa Amikacin [...] aeruginosa Tobramycin >8: Resistant Performing Organization Address City/[facility] Centercoin Phone Number [address], [place] [address] [phone] [facility] Urinalysis w/Microscopic + Reflex to Culture (06/12/2018 2:36 PM CDT)Only the most recent of2 resultswithin the time period is included. Color, UA [place] [facility] Clarity, UA Hazy [facility] Specific [place], UA 1.013 1.001 - 1.035 [facility] pH, UA 6.0 5.0 - 8.0 [facility] Protein, UA 100 mg/dL (A) Negative [facility] Glucose, UA Negative Negative [facility] Ketones, UA Trace (A) Negative [facility] Bilirubin, UA Negative Negative [facility] Blood, UA Large (A) Negative [facility] Nitrite, UA Negative Negative [facility] Leukocytes, UA Large (A) Negative [facility] Urobilinogen, UA 0.2 0.2 - 1.0 mg/dL [facility] RBC, UA >182 /HPF [facility] WBC, UA 68 /HPF [facility] Mucus Rare [facility] Specimen Source [facility] Specimen Urine - Urine, Nephrostomy Performing Organization Address City/State/Zipcode Phone Number [address] [address] CENTER IR Percutaneous Nephrostomy - Ext. Drain Placement (06/12/2018 11:48 AM CDT) Specimen Narrative Performed At FINAL REPORT [facility] Fluoroscopic and ultrasound guided right nephroureterostomy tube placement, 06/12/2018. Clinical History: Obstructing stone at the junction of the right distal ureter and ileoconduit with hydronephrosis and urosepsis. Patient has a history of spina bifida/caudal regression. Modality: Sonography and fluoroscopy Trimmer Loader:Faisal Felix MD. Repair Technician:None. Sedation: General anesthesia provided by the anesthesia [...] removed. The tract was dilated to 8 Spanish. An 8.5 Spanish by 28 cm nephroureterostomy catheter was then [...] MD Report Verified Date/Time:06/12/2018 13:43:17 Reading Location: [facility] P048 Angio Body Reading Room Procedure Note Interface, External Ris In - 06/12/2018 1:45 PM CDT FINAL REPORT Fluoroscopic and ultrasound guided right nephroureterostomy tube placement, 06/12/2018. Clinical History: Obstructing stone at the junction of the right distal ureter and ileoconduit with hydronephrosis and urosepsis. Patient has a history of spina bifida/caudal regression. Modality: Sonography and fluoroscopy Trimmer Loader: Faisal Felix MD. Repair Technician: None. Sedation: General anesthesia provided by the [...] removed. The tract was dilated to 8 Spanish. An 8.5 Spanish by 28 cm nephroureterostomy catheter was then [...] Report Verified Date/Time: 06/12/2018 13:43:17 Reading Location: [facility] P048 Angio Body Reading Room Performing Organization Address City/State/Zipcode Phone Number GE RIS Body fluid culture + gram stain (06/12/2018 11:40 AM CDT) Result ENTEROBACTER CLOACAE COMPLEX (A) [facility] Comment: MEDICAL CENTER ESBL Positive AmpC Positive Result 2+ Enterococcus species (A) [facility] Result BOWEN PARAPSILOSIS (A) [facility] Gram Stain Result No organisms seen [facility] Gram Stain Result 1+ White blood cells seen [facility] Specimen Urine - Urine, Surgically Obtained [...] species Vancomycin <=0.5: Susceptible Performing Organization Address City/[facility] Centercoin Phone Number [address] [address] [phone] [facility] CBC (Hemogram only) (06/12/2018 8:07 AM CDT) WBC 8.5 3.5 - 10.5 K/L [facility] RBC 4.23 3.93 - 5.22 M/L [facility] Hemoglobin 9.1 (L) 11.2 - 15.7 GM/DL [facility] Hematocrit 31.4 (L) 34.1 - 44.9 % [facility] MCV 74.2 (L) 79.4 - 94.8 fL [facility] MCH 21.5 (L) 25.6 - 32.2 pg [facility] MCHC 29.0 (L) 32.2 - 35.5 GM/DL [facility] RDW 20.4 (H) 11.7 - 14.4 % [facility] Platelets Comment: Platelet clumps 150 - 450 K/CU MM [facility] present, unable to report MEDICAL CENTER true platelet. Recommend recollect using EDTA tube and blue (Citrate) tube. spoke to RN ID:[id number] nRBC 0 0 - 0 /100 WBC [facility] Specimen Blood Performing Organization Address City/[facility]/Zipcode Phone Number [address] [address] [place] PT/aPTT (06/12/2018 6:07 AM CDT) Protime 14.4 11.7 - 14.7 seconds [facility] INR 1.1 <=5.9 [facility] PTT 30.8 22.5 - 36.0 seconds [facility] Specimen Blood Narrative Performed At [facility] RECOMMENDED COUMADIN/WARFARIN INR THERAPY RANGES STANDARD DOSE: 2.0 - 3.0 Includes: PROPHYLAXIS for venous thrombosis, systemic embolization; TREATMENT for venous thrombosis and/or pulmonary embolus. HIGH RISK: Target INR is 2.5-3.5 for patients with mechanical heart valves. Performing Organization Address [facility] Phone Number [address] [address] [place] Screen, urine (06/11/2018 11:20 AM CDT) Preg Test, Ur Negative [facility] Specimen Urine - Urine, Urostomy Performing Organization Address [facility] Phone Number [address] [address] [place] Blood culture #2 (06/11/2018 4:55 AM CDT)Only the most recent of2 resultswithin the time period is included. Result No growth in 5 days [facility] Specimen Blood Performing Organization Address [facility] Phone Number [address] [address] [phone] [facility] Lactic acid, venous, whole blood (06/11/2018 4:54 AM CDT) Lactate, Venous 0.8 0.5 - 2.2 mmol/L [facility] Specimen Blood Narrative Performed At [facility] Effective 01/01/2016: Units/Reference Range Change New: 0.5-2.2 mmol/LPrevious: 5-20 mg/dL Performing Organization Address [facility] Phone Number [address] [address] [phone] [facility] aPTT (06/11/2018 4:54 AM CDT) PTT 35.9 22.5 - 36.0 seconds [facility] Specimen Blood Performing Organization Address [facility] Phone Number [address] [address] CENTER Prothrombin time/INR (06/11/2018 4:54 AM CDT) Protime 16.4 (H) 11.7 - 14.7 seconds [facility] INR 1.3 <=5.9 [facility] Specimen Blood Narrative Performed At [facility] RECOMMENDED COUMADIN/WARFARIN INR THERAPY RANGES STANDARD DOSE: 2.0 - 3.0 Includes: PROPHYLAXIS for venous thrombosis, systemic embolization; TREATMENT for venous thrombosis and/or pulmonary embolus. HIGH RISK: Target INR is 2.5-3.5 for patients with mechanical heart valves. Performing Organization Address [facility] Phone Number [address] [address] CENTER Lactic acid, arterial, whole blood (06/11/2018 1:02 AM CDT) Lactate, Art 0.6Comment: Specimen 0.5 - 2.2 mmol/L [facility] slightly hemolyzed [facility] Specimen Blood, Arterial Narrative Performed At [facility] Effective 01/01/2016: Units/Reference Range Change New: 0.5-2.2 mmol/LPrevious: 5-20 mg/dL Performing Organization Address [facility] Centercode Phone Number [address] [address] CENTER Phosphorus (06/11/2018 1:02 AM CDT) Phosphorus 3.0Comment: Specimen 2.3 - 4.7 mg/dL [facility] moderately hemolyzed [facility] Specimen Blood Performing Organization Address [facility] Centercode Phone Number [address] [phone] CENTER Magnesium (06/11/2018 1:02 AM CDT) Magnesium 2.0Comment: Specimen 1.6 - 2.6 mg/dL [facility] hemolyzed [facility] Specimen Blood Performing Organization Address City/State/Zipcode Phone Number [facility] [address] [place], [place] [address] [phone] CENTER Comprehensive metabolic panel (06/11/2018 1:02 AM CDT) Protein, Total 7.3Comment: Specimen 6.0 - 8.3 gm/dL [facility] hemolyzed [facility] Albumin 3.3 (L)Comment: Specimen 3.5 - 5.0 g/dL [facility] hemolyzed [facility] Alkaline Phosphatase 56 40 - 150 U/L [facility] Total Bilirubin 0.4Comment: Specimen 0.2 - 1.2 mg/dL [facility] hemolyzed [facility] Sodium 133 (L) 136 - 145 meq/L [facility] Potassium 4.5Comment: Specimen 3.5 - 5.1 meq/L [facility] hemolyzed [facility] Chloride 108 (H) 98 - 107 meq/L [facility] CO2 15 (L) 22 - 29 meq/L [facility] BUN 12 7 - 21 mg/dL [facility] Creatinine 0.61Comment: Specimen 0.57 - 1.25 mg/dL [facility] hemolyzed [facility] Glucose 92 70 - 105 mg/dL [facility] Calcium 8.3 (L) 8.4 - 10.2 mg/dL [facility] AST 35 (H)Comment: Specimen 5 - 34 U/L [facility] hemolyzed [facility] ALT 14Comment: Specimen 6 - 55 U/L [facility] hemolyzed [facility] EGFR 133Comment: ESTIMATED mL/min/1.[address] [facility] GFR IS NOT ACCURATE [facility] CREATININE CLEARANCE IN PREDICTING GLOMERULAR FILTRATION RATE. ESTIMATED GFR IS NOT APPLICABLE FOR DIALYSIS PATIENTS. Specimen Blood Performing Organization Address City/[facility]/Zipcode Phone Number [facility] [address] [place] [address] [phone] [facility] Urinalysis w/ Microscopic (06/10/2018 11:37 PM CDT) Color, UA Yellow [facility] Clarity, UA Hazy [facility] Specific [place], UA 1.012 1.001 - 1.035 [facility] pH, UA 8.0 5.0 - 8.0 [facility] Protein, UA 50 mg/dL (A) Negative [facility] Glucose, UA Negative Negative [facility] Ketones, UA Negative Negative [facility] Bilirubin, UA Negative Negative [facility] Blood, UA Moderate (A) Negative [facility] Nitrite, UA Positive (A) Negative [facility] Leukocytes, UA Large (A) Negative [facility] Urobilinogen, UA 0.2 0.2 - 1.0 mg/dL [facility] RBC, UA 6 /HPF [facility] WBC, UA 10 /HPF [facility] Bacteria, UA Many [facility] Mucus Many [facility] Crystals, Urine Occasional [facility] Specimen Source Urine, Urostomy [facility] Specimen Urine - Urine, Urostomy Performing Organization Address City/[facility]/Zipcode Phone Number [facility] [address] [place] [address] CENTER after 01/20/2018 Insurance Payer Benefit Plan / Group Subscriber ID Type Phone Address MEDICARE MEDICARE A B xxxxxxxxxxx Medicare MEDICAID - MEDICAID MEDICAID [employer] xxxxxxxxx Medicaid MGD CARE Non-Contracted (Home) [address] [place] [address] Advance Directives For more information, please contact:[address] [phone] Code Status Date Activated Date Inactivated Comments Full Code 06/24/2018 12:08 PM This code status was determined by: Patient Full Code 06/10/2018 10:09 PM 06/13/2018 4:34 PM This code status was determined by: Patient
--- OUTSIDE RECORDS SUMMARY | 2019-01-21 19:24 | XMS REPORT | Continuity of Care Document ---
[...] [facility] [place] Constipation Active Finding 10/08/[address] [facility] [address] [facility] [place] Asthma Active Finding 10/08/[address] [facility] [address] [facility] [place] Hypokalemia Active Finding 10/08/[address] [facility] [address] [facility] [place] Hypomagnesemia Active Finding 10/08/[address] [facility] [address] [facility] [place] Urinary tract Active Finding 10/08/2017 [facility]. infection [facility] [place] longterm current Active Finding 10/08/2017 [facility] use of [facility] anticoagulant [place] therapy History of Active Finding 10/08/2017 [facility]. ureterostomy [facility] [place] Ileostomy present Active Finding 10/08/2017 [facility]. [facility] [place] Medications Medication Details Route Status Patient Ordering Order Source Instructions Provider Date Ferrous Sulfate TWICE DAILY Active Prezas [facility] 2018 [facility] [place] Metoprolol DAILY AT Active Prezas [facility]. Tartrate 0600 2017 [facility] [place] Magnesium Oxide TWICE DAILY Active Prezas [facility]. 2018 [facility] [place] Amlodipine DAILY Active Prezas [facility] 2018 [facility] [place] Rivaroxaban DAILY Active Prezas [facility] 2018 [facility] [place] Sertraline DAILY Active Prezas [facility] 2018 [facility] [place] Pantoprazole DAILY Active Prezas [facility] 2018 [facility] [place] Rivaroxaban DAILY Active [facility] 2018 [facility] [place] Lorazepam TWICE DAILY Active [facility] PRN For 2015 [facility] Anxiety [place] Ciprofloxacin Hcl DAILY Active [facility] 03/16/ [facility] 2015 [facility] [place] Hydrocodone Q6H PRN For Active [facility] 03/16/ [facility] 10/Apap 325 Pain 2015 [facility] [place] Docusate TWICE DAILY Active Earl 03/11/ [facility] 2015 [facility] [place] Yash TWICE DAILY Active [facility] 03/11/ [facility] 2015 [facility] [place] Fluconazole DAILY PRN Active [facility] St[facility] For YEAST 2014 [facility] INFECTION [...] [place] vancomycin Itching/H Mild Allergy to Active [facility] tristan/Rash Substance 8 [facility] [place] Immunizations Immunization Date Given Site Status Last Comments Source Updated Pneumovax 11/10/2012 completed [facility] [place] Results Order Name Results Value Reference Date Interpretation Comments Source Range Laboratory Sodium Level 138 mEq/L 135 - 145 10/[address] [facility] [address] Studies /2018 [facility] [place] Laboratory Potassium 3.3 mEq/L 3.6 - 5.0 10/[address] [facility] [address] Studies Level /2018 [facility] [place] Laboratory Magnesium 1.6 mg/dL 1.8 - 2.5 10/08 [facility] Studies Level /2017 [facility] [place] Laboratory Glucose Level 91 mg/dL 65 - 120 10/08 [facility] Studies /2017 [facility] [place] Laboratory Estimat null 90 10/08 [facility] Studies Glomerular /2017 [facility] Filtration [place] Rate Laboratory Creatinine 0.42 mg/dL 0.44 - 10/08 [facility] Studies 1.00 [facility] [place] Laboratory Chloride 104 mEq/L 101 - 111 10/08 [facility]. Studies Level /2018 [facility] [place] Laboratory Carbon 24 mEq/L 21 - 31 10/08 [facility] Studies Dioxide Level /2017 [facility] [place] Laboratory Calcium Level 8.6 mg/dL 8.5 - 10.5 10/08 [facility]. Studies /2018 [facility] [place] Laboratory Blood Urea 9 mg/dL 6 - 20 10/08 [facility] Studies Nitrogen /2017 [facility] [place] Laboratory White Blood 8.9 K/uL 4.3 - 10.9 10/08 [facility]. Studies Count /2018 [facility] [place] Laboratory Red Cell 17.7 % 12.1 - 02 [facility]. Studies Distribution 15.2 /2017 [facility] Width [place] Laboratory Red Blood 4.41 M/uL 3.86 - 02 [facility] Studies Count 4.86 /2017 [facility] [place] Laboratory Platelet 443 K/uL 152 - 406 10/08 [facility]. Studies Count /2018 [facility] [place] Laboratory Neutrophils % 57.5 % 41.7 - 02 [facility]. Studies 73.7 /2017 [facility] [place] Laboratory Monocytes % 12.3 % 3.3 - 12.3 10/[address] [facility] [address] Studies /2017 [facility] [place] Laboratory Mean Platelet 6.6 fL 7.6 - 11.3 10/[address] [facility] [address] Studies Volume /2017 [facility] [place] Laboratory Mean 73.1 fL 80 - 100 10/[address] [facility] [address] Studies Corpuscular /2017 [facility] Volume [place] Laboratory Mean 31.5 g/dL 32.0 - [address] [facility] [address] Studies Corpuscular 36.0 /2017 [facility] Hemoglobin [place] Concent Laboratory Mean 23.0 pg 27.0 - 02 [facility]. Studies Corpuscular 35.0 /2017 [facility] Hemoglobin [place] Laboratory Lymphocytes % 26.3 % 15.3 - [address] [facility] [address] Studies 44.8 /2017 [facility] [place] Laboratory Hemoglobin 10.1 g/dL 12.0 - 10/[address] [facility] [address] Studies 15.0 [facility] [place] Laboratory Hematocrit 32.2 % 36.0 - [address] [facility] [address] Studies 45.0 [facility] [place] Laboratory Eosinophils % 2.7 % 0 - 4.4 10/[address] [facility] [address] Studies [facility] [place] Laboratory Basophils % 1.2 % 0 - 1.3 10/[address] [facility] [address] Studies [facility] [place] Laboratory Absolute 5.1 K/uL 1.8 - 8.0 10/[address] [facility] [address] Studies Neutrophil [facility] [place] Laboratory Absolute 1.1 K/uL 0.1 - 1.3 10/08 [facility]. Studies Monocytes [facility] (CBC) [place] Laboratory Absolute 2.3 K/uL 0.7 - 4.9 10/[address] [facility] [address] Studies Lymphocytes [facility] (CBC) [place] Laboratory Absolute 0.2 K/uL 0 - 0.5 10/[address] [facility] [address] Studies Eosinophils [facility] (CBC) [place] Laboratory Absolute 0.1 K/uL 0 - 0.5 10/08 [facility]. Studies Basophils [facility] (CBC) [place] Laboratory Urine Yeast Urine Yeast 10/[address] [facility] [address] Studies [facility] [place] Laboratory Urine WBC null 10/[address] [facility] [address] Studies [facility] [place] [...] 10/07 St. Studies Specific /2017 [facility] [place] Laboratory Urine Nitrite Urine 10/07 St. [...] Iron 336 ug/dL 250 - 460 10/[address] [facility] [address] Studies Binding /2017 [facility] Capacity [place] Laboratory Iron Level 31.0 ug/dL 28 - 170 10/07 St. Studies /2017 [facility] [place] Laboratory Ferritin 10.3 ng/ml 11.0 - 02 [facility] Studies 306.8 /2017 [facility] - [place] Laboratory Segmented 67 % 40 - 80 10/05 [facility] Studies Neutrophils /2017 [facility] - [place] Laboratory Monocytes 1 % 0 - 10 10/05 [facility]. Studies [facility] - [place] Laboratory Lymphocytes 29 % 15 - 42 10/05 [facility]. Studies /2017 [facility] - [place] Laboratory Eosinophils 3 % 0 - 3 10/05 [facility]. Studies [facility] [place] Laboratory Clumped Clumped 10/05 [facility] Studies Platelets Platelets [facility] Blood Blood 10/05 [facility] Studies Morphology Morphology [facility] - Comment Comment [place] Laboratory Urine Urine 10/02 [facility] Studies Phencyclidine Phencyclidi [facility] - Screen ne Screen [place] Laboratory Urine Urine 10/02 [facility] Studies Barbiturates Barbiturate /2017 [facility] - Screen s Screen [place] Laboratory Ur Ur 10/02 [facility] Studies Tetrahydrocan Tetrahydroc [facility] - nabinol (THC) annabinol [place] Scrn (THC) Scrn Laboratory Oxycodone Oxycodone 10/02 [facility] Studies Screen Screen /2017 [facility] - [place] Laboratory Opiates Opiates 10/02 [facility] Studies Screen Screen /2017 [facility] MDMA MDMA 10/02 [facility] Studies (Ecstasy) (Ecstasy) [facility] - Screen Screen [place] Laboratory Cocaine Cocaine 10/02 [facility] Studies Screen Screen /2017 [facility] - [place] Laboratory Benzodiazepin Benzodiazep 10/02 [facility] Studies es Screen brian Screen [facility] - [place] Laboratory Amphetamines Amphetamine 10/02 [facility] Studies Screen s Screen [facility] - [place] Laboratory Total 0.7 mg/dL 0.3 - 1.2 10/01 [facility] Studies Bilirubin [facility] Laboratory Serum Total 7.4 g/dL 6.0 - 8.3 10/01 [facility] Studies Protein /2017 [facility] Laboratory Globulin 3.6 g/dL 2.3 - 3.5 10/[address] [facility] [address] Studies [facility] - [place] Laboratory Aspartate 27 IU/L 10 [...] Alanine 17 IU/L 10 - 60 10/[address] [facility] [address] Studies Aminotransfer [facility] - [...] Creatine 30 IU/L 22 - 269 08/[address] [facility] [address] Studies Kinase [facility] [place] Laboratory Rapid null 08/[address] [facility] [address] Studies Troponin I /2016 [facility] [place] Laboratory Prothrombin 13.7 9.5 - 12.5 08/[address] [facility] [address] Studies Time SECONDS [facility] [place] Laboratory INR 1.16 08/[address] [facility] [address] Studies International /2016 [facility] Normalized [place] Ratio Laboratory Activated 26.6 24.3 - 08/[address] [facility] [address] Studies Partial SECONDS 36.9 [facility] Thromboplast [place] Time Laboratory Lactic Acid 7.5 mg/dL 4.5 - 19.8 08/[address] [facility] [address] Studies Level /2016 [facility] [place] Microbiolog Klebsiella Klebsiella 07/[address] [address] [facility] Studies Pneumoniae Pneumoniae [facility] [place] Microbiolog Enterococcus Enterococcu 07/[address] [facility] [address] y Studies Faecalis s Faecalis [facility] [place] Laboratory Urine Triple Urine 07/[address] [facility] [address] Studies Phosphate Triple [facility] Crystals Phosphate [place] Crystals Laboratory Amylase Level 170 U/L 28 - 100 07/[address] [facility] [address] Studies /2016 [facility] [place] Vital Signs Vital Sign Value Date Comments Source Height 60 10/08/[address] [facility] [address] [place] Weight 158 10/08/2017 [facility] [place] Temperature Oral (F) 97.1 F 10/08/[address] [facility] [address] [facility] [place] Heart Rate 102 10/08/[address] [facility] [address] [facility] [place] Respitory Rate 17 10/08/[address] [facility] [address] [facility] [place] Systolic (mm Hg) 125 10/08/[address] [facility] [address] [facility] [place] Diastolic (mm Hg) 78 10/08/[address] [facility] [address] [facility] [place] Encounters Location Location Encounter Encounter Reason Attending ADM DC Status Source Details Type Number For Provider Date Date Visit [facility] [id number] 07/11 07/[address] [facility] [place] [facility] [id number] 07/30 07/[address] [facility] [place] [facility] [id number] 08/28 08/[address] [facility] [place] [facility] [id number] 09/23 09/[address] [facility] [place] [facility] [id number] 10/01 10/[address] [facility] [place] Procedures Procedure Code Date Perfomer Comments Source Crumrod Count [id number] [address] [facility] [place] [id number] [address] [facility] [address] [place] Stone Protocol [id number] 09/29/[address] [facility] [address] [place] - [place] Crumrod Count [id number] 09/23/[address] [facility] [address] [facility] [place] [id number] 09/23/[address] [facility] [address] [facility] [place] Culture & [id number] 09/23/[address] [facility] [address] [facility] Sensitivity [place] Abdomen & Pelvis [id number] 09/23/[address] [facility] [address] [facility] W Contrast [place] Anaerobic Blood [id number] 08/28/[address] [facility] [address] [facility] Culture [place] Aerobic Blood [id number] 08/28/[address] [facility] [address] [facility] Culture [place] Crumrod Count [id number] 08/28/[address] [facility] [address] [place] [id number] 08/28/[address] [facility] [address] [facility] [place] Chest Single View [id number] 08/28/[address] [facility] [address] [facility] [place] Influenza Type B 08/28/[address] [facility] [address] [facility] Antigen Screen [place] Influenza Type A 08/28/[address] [facility] [address] [facility] Antigen Screen [place] Influenza Type B 07/30/[address] [facility] [address] [facility] Antigen Screen [place] Influenza Type A 07/30/[address] [facility] [address] [facility] Antigen Screen [place] Crumrod Count [id number] 07/11/[address] [facility] [address] [facility] [place] [id number] 07/11/[address] [facility] [address] [place]
--- OUTSIDE RECORDS SUMMARY | 2019-01-21 19:25 | XMS REPORT | Summary of Care ---
:1980 Author Name Renee Irving R.N. Address Unavailable Unavailable , Care Team Providers Name Role Phone DEVENDRA James, DEONDRE Unavailable Unavailable LARRY James, ANNIE Unavailable Unavailable Maria Fernanda Hughes, Renee Unavailable Unavailable JUANA James, REYNA Unavailable Unavailable DEVENDRA MASON MT, DEONDRE Unavailable Unavailable Anais MASON, Karon Unavailable Unavailable ANKITA LOCKETT MD, [place] Unavailable Unavailable Juana MASON, Reyna Unavailable Unavailable JANIE MASON MT, IRVING TORRES Unavailable Unavailable Unavailable Unavailable Unavailable Functional Status Name Dates Details Functional status health issues are not documented Status: Name Dates Details Cognitive status health issues are not documented Status: Problems Name Dates Details Follow up (V67.9, Z09) Status: Active Sacral decubitus ulcer (707.03, L89.159) Status: Active History of kidney stones (V13.01, Z87.442) Status: Active Preop examination (V72.84, Z01.818) Status: Active UTI (urinary tract infection) (599.0, N39.0) Status: Active Irregular bleeding (626.4, N92.6) Status: Active Nephrolithiasis (592.0, N20.0) Status: Active Obstruction of right ureter (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 Start : 14-Nov-2018 Active 40 GM Tube Sertraline HCl - 100 MG Oral Tablet Refills: 0 Start : 23-Dec-2018 Active Cipro 500 MG Oral Tablet Refills: 0 Start : 23-Dec-2018 Active Docusate Sodium 100 MG Oral Capsule Refills: 0 Start : 23-Dec-2018 Active amLODIPine Besylate 5 MG Oral Tablet Refills: 0 Start : 23-Dec-2018 Active MiraLax Oral Powder Refills: 0 Start : 23-Dec-2018 Active Zolpidem Tartrate 5 MG Oral Tablet Refills: 0 Start : 23-Dec-2018 Active Macrodantin 100 MG Oral Capsule Refills: 0 Start : 23-Dec-2018 Active Amoxicillin 500 MG Oral Capsule TAKE ONE CAPSULE THREE TIMES DAILY x 5days Quantity: 15 Refills: 0 DEONDRE RAMSAY M.D. Start : 28-Dec-2018 Active Ondansetron HCl - 4 MG Oral Tablet TAKE 1 TABLET Every twelve hours Quantity: 30 Refills: 0 ELEAZAR AKHTAR M.D.A Start : 04-Jan-2019 Active Minocycline HCl - 100 MG Oral Tablet TAKE 1 TABLET TWICE DAILY Quantity: 14 Refills: 0 LARRY James, HAMELODY Start : 04-Jan-2019 Active Fluconazole 100 MG Oral Tablet TAKE 1 TABLET DAILY. Quantity: 7 Refills: 0 LARRY James, HAJAR Start : 04-Jan-2019 Active Minocycline HCl - 100 MG Oral Capsule TAKE 1 CAPSULE TWICE DAILY. 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, 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) Status: Resolved History of hypertension (V12.59, Z86.79) Status: Resolved History of pyelonephritis (V13.02, Z87.448) Status: Resolved History of Recurrent nephrolithiasis (592.0, N20.0) Status: Resolved History of Spina bifida of lumbar spine (741.93, Q05.7) Status: Resolved Procedures Procedure Dates Details [QLH] URINALYSIS, COMPLETE Date: 28-Nov-2018 Immunization Name Dates Details Tdap (Adacel) on: Aug-2016 Social History Name Dates Details - Status: Name Dates Details Never smoker Vital Signs Date Test Result Details 04-Jan-20198:34 BP Systolic 120 mm[Hg] Status: Comments: Location: RUE; Position: Sitting BP Diastolic 88 mm[Hg] Status: Comments: Location: RUE; Position: Sitting Temperature 98.2 f Status: Comments: Method: Oral Heart Rate 101 /min Status: Comments: Location: R Brachial Artery; Quality: Normal Respiration Rate 16 /min Status: Comments: Quality: Normal 38-Zuz-118222:14 BP Systolic 115 mm[Hg] Status: Comments: Location: RUE; Position: Sitting BP Diastolic 84 mm[Hg] Status: Comments: Location: RUE; Position: Sitting Temperature 97.9 f Status: Comments: Method: Oral Heart Rate 99 /min Status: Comments: Location: R Brachial Artery; Respiration Rate 14 /min Status: Height 60 in Status: Body Mass Index Calculated 27.73 kg/m2 Status: Body Surface Area Calculated 1.61 m2 Status: Weight 142 lb Status: 99-Wgb-603546:06 BP Systolic 117 mm[Hg] Status: Comments: Location: RUE; Position: Sitting BP Diastolic 85 mm[Hg] Status: Comments: Location: RUE; Position: Sitting Temperature 98.4 f Status: Comments: Method: Oral Heart Rate 97 /min Status: Height 60 in Status: Body Mass Index Calculated 27.73 kg/m2 Status: Body Surface Area Calculated 1.61 m2 Status: Weight 142 lb Status: Results Date Description Value Details [id number] [QLH] CBC (INCLUDES DIFF/PLT) WBC 8.9 {K/CMM} Range: 3.7-10.4 RBC 4.90 {M/CMM} Range: 4.20-5.40 Hgb 11.1 g/dl (Below low Range: 12.0-16.0 threshold) Hct 34.8 % (Below low threshold) Range: 36.0-48.0 MCV 71.1 fL (Below low Range: 80.0-98.0 threshold) MCH 22.8 pg (Below low Range: 27.0-31.0 threshold) MCHC 32.0 g/dl Range: 32.0-36.0 RDW 25.0 % (Above high Range: 11.5-14.5 threshold) Platelet See Note Range: 133-450 Comments: Platelets clumped in EDTA, unable to estimate, suggest recollection in a bluetop tube with an order for "Blue Top Platelet Count" Mean Platelet Volume 8.6 fL Range: 7.4-10.4 [id number] [QL] Differential Segmented Neutrophils 66.6 % Range: 45.0-75.0 Monocytes 8.6 % Range: 2.0-12.0 Lymphocytes 21.0 % Range: 20.0-40.0 Eosinophils 3.2 % Range: 0.0-4.0 Basophils 0.6 % Range: 0.0-1.0 Segs-Bands # 5.9 {K/CMM} Range: 1.5-8.1 Lymphocytes # 1.9 {K/CMM} Range: 1.0-5.5 Monocytes # 0.8 {K/CMM} Range: 0.0-0.8 Eosinophils # 0.3 {K/CMM} Range: 0.0-0.5 Basophils # 0.1 {K/CMM} Range: 0.0-0.2 Plt Morphology Clumped Range: Normal Anisocyte 1+ (Abnormal) Range: None Seen Microcyte 2+ (Abnormal) Range: None Seen [id number] [QL] CULTURE, URINE, ROUTINE Comments: Source: Urine, Clean CatchBody Site: ORGANISM Acinetobacter baumanniiEnterococcus Species FINAL REPORT 50,000 - 100,000 CFU/mL Acinetobacter baumannii , Multi-drug Resistant Vytzyqll35,000 - 50,000 CFU/mL Enterococcus Species 10,000 - 50,000 CFU/mL Yeast [id number] [] VMIC Comments: Source: Urine, Clean CatchBody Site: ORGANISM Enterococcus Species Ampicillin - (Susceptible) Levofloxacin - (Resistant) Nitrofurantoin - (Susceptible) Tetracycline - (Resistant) Vancomycin SEE NOTES (Susceptible) Comments: S=Susceptible, R=Resistant, I=Intermediate, N/A=Not Applicable [id number] [H] MSMIC Comments: Source: Urine, Clean CatchBody Site: ORGANISM Acinetobacter baumannii Amikacin <=16 (Susceptible) Ampicillin/Sulbactam >16/8 (Resistant) Cefepime >16 (Resistant) Ciprofloxacin >2 (Resistant) Levofloxacin >4 (Resistant) Meropenem >8 (Resistant) Tetracycline >8 (Resistant) Tobramycin <=4 (Susceptible) [id number] [H] E-ONE Comments: Source: Urine, Clean CatchBody Site: ORGANISM Acinetobacter baumannii Colistin .38 (Susceptible) Minocycline 1.5 (Susceptible) Plan of Care Name Dates Details Planned Observations Planned Goals not documented Planned Encounters Appointment; REYNA AKHTAR M.D. On: 20-Mar-2019 14:45 Instructions Name Dates Details Instructions not documented Encounters Appointment; ANNIE JUAREZ M.D. On: 15-Apr-2018 8:45 Encounter Diagnosis: Problem not documented Appointment; ANNIE JUAREZ M.D. On: 11-May-2018 10:15 Encounter Diagnosis: Problem not documented Appointment; BEKAH LOW P.A. On: 30-May-2018 10:30 Encounter Diagnosis: Problem not documented Appointment; ANNIE JUAREZ M.D. On: 08-Jun-2018 9:45 Encounter Diagnosis: Problem not documented Appointment; DEONDRE RAMSAY M.D. On: 14-Nov-2018 9:30 Encounter Diagnosis: Problem not documented Appointment; DEONDRE RAMSAY M.D. On: 28-Nov-2018 9:40 Encounter Diagnosis: Problem not documented Appointment; KARON BOONE M.D. On: 28-Nov-2018 10:45 Encounter Diagnosis: Problem not documented Appointment; ANNIE JUAREZ M.D. On: 07-Dec-2018 10:30 Encounter Diagnosis: Problem not documented Appointment; DEONDRE RAMSAY M.D. On: 23-Dec-2018 9:40 Encounter Diagnosis: Problem not documented Appointment; [facility] On: 23-Dec-2018 11:00 Encounter Diagnosis: Problem not documented Appointment; REYNA AKHTAR M.D. On: 04-Jan-2019 8:15 Encounter Diagnosis: Problem not documented Appointment; DEONDRE RAMSAY M.D. On: 12-Jan-2019 11:30 Encounter Diagnosis: Problem not documented
--- OUTSIDE RECORDS SUMMARY | 2019-01-21 19:25 | XMS REPORT ---
:1980 [facility] Address [address] [place] [address] [address]. Robertson [address] [place] [address] Care Team Providers Name Role Phone DILMA LOMBARDI WAQAR Unavailable Unavailable DANGELO VERMA MABEL Unavailable Unavailable Problems This patient has no known problems. Allergies, Adverse Reactions, Alerts This patient has no known allergies or adverse reactions. Medications This patient has no known medications. Encounters Start End Encounter Admission Attending Care Care Encounter Date/Time Date/Time Type Type Clinicians Facility Department ID 2018-12-13 Inpatient U [facility] [id number] 17:12:36 2019-01-12 2019-01-12 Outpatient [facility] [id number] 17:47:00 17:47:00 2019-01-06 2019-01-06 Outpatient [facility] [id number] 10:09:00 10:09:00 2018-12-14 2018-12-13 Inpatient E [facility] [id number] 03:28:00 19:10:00 Results Test Description Test Time Test Comments Text Results Atomic Results Result Comments SURGICALLY OBTAINED CULTURE + GRAM STAIN 2018-07-03 12:12:00 Test Item Value Reference Range Comments CULTURE (BEAKER) (test ENTEROCOCCUS SPECIES 2+ Enterococcus yzaa=8003) species Ampicillin (test code=26) Linezolid (test code=40) Tetracycline (test code=2) Vancomycin (test code=13) CULTURE (BEAKER) (test 1+ Katie albicans ifjy=7073) CULTURE (BEAKER) (test KLEBSIELLA 1+ Klebsiella lbsw=2867) PNEUMONIAE SSP pneumoniae ssp PNEUMONIAE pneumoniae Amikacin (test code=1) Ampicillin + Sulbactam (test code=6) Aztreonam (test code=32) Cefepime (test code=51) Cefoxitin (test code=68) Ceftazidime (test code=27) Ceftriaxone (test code=52) Ertapenem (test code=38) Gentamicin (test code=18) Levofloxacin (test code=22) Meropenem (test code=34) Nitrofurantoin (test code=23) Piperacillin + Tazobactam (test code=29) Tetracycline (test code=2) Tobramycin (test code=25) Trimethoprim + Sulfamethoxazole (test code=47) CULTURE (HuiyuanAKER) (test VANCOMYCIN RESISTANT 1+ Vancomycin tsif=4261) ENTEROCOCCUS SPECIES resistant Enterococcus species Ampicillin (test code=26) Linezolid (test code=40) Vancomycin (test code=13) Daptomycin (test Susceptible 0-4 , No code=59) Interpretations Established <0 or >4 ANAEROBIC [id number] 05:31:00 Test Item Value Reference Range Comments CULTURE (BEAKER) (test qaxv=6354) No anaerobes isolated URINE [id number] 11:06:00 Test Item Value Reference Range Comments CULTURE (HuiyuanAKER) (test 20-29,000 col/mL eoub=8795) Katie parapsilosis CULTURE (BEAKER) (test PSEUDOMONAS 20-29,000 col/mL lgpl=9866) AERUGINOSA Pseudomonas aeruginosa Amikacin (test code=1) Susceptible [...] , code=25) Resistant <0 or >4 URINE [id number] 11:03:00 Test Item Value Reference Range Comments CULTURE (BEAKER) (test ENTEROCOCCUS SPECIES >100,000 col/mL hzys=2874) Enterococcus species Ampicillin (test code=26) Linezolid (test code=40) Nitrofurantoin (test code=23) Tetracycline (test code=2) Vancomycin (test code=13) CULTURE (BEAKER) (test ESCHERICHIA COLI 50-59,000 col/mL dyxq=1523) Escherichia coli Amikacin (test code=1) Ampicillin + Sulbactam (test code=6) Aztreonam (test code=32) Cefepime (test code=51) Cefoxitin (test code=68) Ceftazidime (test code=27) Ceftriaxone (test code=52) Ertapenem (test code=38) Gentamicin (test code=18) Levofloxacin (test code=22) Meropenem (test code=34) Nitrofurantoin (test code=23) Piperacillin + Tazobactam (test code=29) Tetracycline (test code=2) Tobramycin (test code=25) Trimethoprim + Sulfamethoxazole (test code=47) CULTURE (BEAKER) (test ENTEROBACTER CLOACAE 50-59,000 col/mL ghib=6495) COMPLEX Enterobacter cloacae complex Amikacin (test code=1) Aztreonam (test code=32) Cefepime (test code=51) Cefoxitin (test code=68) Ceftazidime (test code=27) Ceftriaxone (test code=52) Ertapenem (test code=38) Gentamicin (test code=18) Levofloxacin (test code=22) Meropenem (test code=34) Nitrofurantoin (test code=23) Piperacillin + Tazobactam (test code=29) Tetracycline (test code=2) Tobramycin (test code=25) Trimethoprim + Sulfamethoxazole (test code=47) Dr. lopez request for avycaz and zerbaxaCT, [id number] 07:41:00FINAL REPORT INDICATION:37-year-old female status post recent percutaneous right nephroureterostomy tube placement for obstructing right ureteral stone. History of spina bifida and caudal regression. COMPARISON: Right nephroureterostomy tube placement October 14, 2018Abdomen pelvis CT exam June 11, 2018 [...] Verified Date/Time : 06/29/2018 07:41:57 Reading Location: [facility] Diagnostic Imaging Reading Room - [place] [id number] Electronically signed by: FREDERICK BOYD M.D. on 2017 07:41 AMCBC W/PLT COUNT & AUTO [id number] 07:07:00 Test Item Value Reference Range Comments WHITE BLOOD CELL COUNT 9.2 K/ L 3.5-10.5 (BEAKER) (test mqaz=516) RED BLOOD CELL COUNT (BEAKER) 4.41 M/ L 3.93-5.22 (test ewbg=251) HEMOGLOBIN (BEAKER) (test 10.1 GM/DL 11.2-15.7 dqdg=256) HEMATOCRIT (BEAKER) (test 33.7 % 34.1-44.9 zhih=203) MEAN CORPUSCULAR VOLUME 76.4 fL 79.4-94.8 (BEAKER) (test muia=951) MEAN CORPUSCULAR HEMOGLOBIN 22.9 pg 25.6-32.2 (BEAKER) (test apoj=154) MEAN CORPUSCULAR HEMOGLOBIN 30.0 GM/DL 32.2-35.5 CONC (BEAKER) (test zyni=944) RED CELL DISTRIBUTION WIDTH 21.2 % 11.7-14.4 (BEAKER) (test fpth=715) PLATELET COUNT (BEAKER) (test 51 K/CU MM 150-450 yiap=326) MEAN PLATELET VOLUME (BEAKER) fL 9.4-12.3 Unable to report due to (test xtxi=103) abnormal Platelet population distribution. NUCLEATED RED BLOOD CELLS 0 /100 WBC 0-0 (BEAKER) (test qgmr=460) NEUTROPHILS RELATIVE PERCENT 71 % (BEAKER) (test pgus=314) LYMPHOCYTES RELATIVE PERCENT 17 % (BEAKER) (test zdsd=395) MONOCYTES RELATIVE PERCENT 10 % (BEAKER) (test whvw=637) EOSINOPHILS RELATIVE PERCENT 1 % (BEAKER) (test dqqa=200) BASOPHILS RELATIVE PERCENT 0 % (BEAKER) (test hkni=306) NEUTROPHILS ABSOLUTE COUNT 6.59 K/ L 1.56-6.13 (BEAKER) (test quym=555) LYMPHOCYTES ABSOLUTE COUNT 1.59 K/ L 1.18-3.74 (BEAKER) (test uryd=745) MONOCYTES ABSOLUTE COUNT 0.91 K/ L 0.24-0.36 (BEAKER) (test kpsl=826) EOSINOPHILS ABSOLUTE COUNT 0.07 K/ L 0.04-0.36 (BEAKER) (test nczy=481) BASOPHILS ABSOLUTE COUNT 0.03 K/ L 0.01-0.08 (BEAKER) (test haul=361) IMMATURE GRANULOCYTES-RELATIVE 0 % 0-1 PERCENT (BEAKER) (test abep=7686) BASIC METABOLIC [id number] 06:01:00 Test Item Value Reference Range Comments SODIUM (BEAKER) (test 137 meq/L 136-145 kmca=004) POTASSIUM (BEAKER) (test 3.7 meq/L 3.5-5.1 wyjo=981) CHLORIDE (BEAKER) (test 112 meq/L 98-107 mivk=644) CO2 (BEAKER) (test 17 meq/L 22-29 slka=424) BLOOD UREA NITROGEN 7 mg/dL 7-21 (BEAKER) (test gned=807) CREATININE (BEAKER) (test 0.64 mg/dL 0.57-1.25 ktwp=528) GLUCOSE RANDOM (BEAKER) 82 mg/dL 70-105 (test vvjf=515) CALCIUM (BEAKER) (test 8.9 mg/dL 8.4-10.2 lgll=334) EGFR (BEAKER) (test 126 mL/min/1.73 sq m ESTIMATED GFR IS NOT yuoi=3516) ACCURATE CREATININE CLEARANCE IN PREDICTING GLOMERULAR FILTRATION RATE. ESTIMATED GFR IS NOT APPLICABLE FOR DIALYSIS PATIENTS. CBC W/PLT COUNT & AUTO [id number] 22:22:00 Test Item Value Reference Range Comments WHITE BLOOD CELL COUNT 8.0 K/ L 3.5-10.5 (BEAKER) (test oush=483) RED BLOOD CELL COUNT (BEAKER) 4.53 M/ L 3.93-5.22 (test jkrx=044) HEMOGLOBIN (BEAKER) (test 10.5 GM/DL 11.2-15.7 tgmd=493) HEMATOCRIT (BEAKER) (test 35.1 % 34.1-44.9 slfr=491) MEAN CORPUSCULAR VOLUME 77.5 fL 79.4-94.8 (BEAKER) (test wivf=225) MEAN CORPUSCULAR HEMOGLOBIN 23.2 pg 25.6-32.2 (BEAKER) (test qeva=470) MEAN CORPUSCULAR HEMOGLOBIN 29.9 GM/DL 32.2-35.5 CONC (BEAKER) (test bimw=865) RED CELL DISTRIBUTION WIDTH 20.6 % 11.7-14.4 (BEAKER) (test guzw=330) PLATELET COUNT (BEAKER) (test 97 K/CU MM 150-450 rbcc=466) MEAN PLATELET VOLUME (BEAKER) fL 9.4-12.3 Unable to report due to (test kbmo=464) abnormal Platelet population distribution. NUCLEATED RED BLOOD CELLS 0 /100 WBC 0-0 (BEAKER) (test bmth=268) NEUTROPHILS RELATIVE PERCENT 80 % (BEAKER) (test euge=200) LYMPHOCYTES RELATIVE PERCENT 16 % (BEAKER) (test mcps=962) MONOCYTES RELATIVE PERCENT 4 % (BEAKER) (test svuo=014) EOSINOPHILS RELATIVE PERCENT 0 % (BEAKER) (test bwuy=816) BASOPHILS RELATIVE PERCENT 0 % (BEAKER) (test awjo=902) NEUTROPHILS ABSOLUTE COUNT 6.41 K/ L 1.56-6.13 (BEAKER) (test hshw=706) LYMPHOCYTES ABSOLUTE COUNT 1.24 K/ L 1.18-3.74 (BEAKER) (test ayeo=123) MONOCYTES ABSOLUTE COUNT 0.32 K/ L 0.24-0.36 (BEAKER) (test ulpl=715) EOSINOPHILS ABSOLUTE COUNT 0.00 K/ L 0.04-0.36 (BEAKER) (test yrce=522) BASOPHILS ABSOLUTE COUNT 0.01 K/ L 0.01-0.08 (BEAKER) (test nzgy=125) IMMATURE GRANULOCYTES-RELATIVE 1 % 0-1 PERCENT (BEAKER) (test jwex=2128) BASIC METABOLIC [id number] 21:08:00 Test Item Value Reference Range Comments SODIUM (BEAKER) (test 135 meq/L 136-145 nlbx=037) POTASSIUM (BEAKER) (test 4.4 meq/L 3.5-5.1 ujjo=370) CHLORIDE (BEAKER) (test 111 meq/L 98-107 xhtg=882) CO2 (BEAKER) (test 15 meq/L 22-29 mjsk=099) BLOOD UREA NITROGEN 7 mg/dL 7-21 (BEAKER) (test bxyy=345) CREATININE (BEAKER) (test 0.62 mg/dL 0.57-1.25 znby=050) GLUCOSE RANDOM (BEAKER) 95 mg/dL 70-105 (test roat=363) CALCIUM (BEAKER) (test 8.9 mg/dL 8.4-10.2 iisl=870) EGFR (BEAKER) (test 131 mL/min/1.73 sq m ESTIMATED GFR IS NOT dxka=9346) ACCURATE CREATININE CLEARANCE IN PREDICTING GLOMERULAR FILTRATION RATE. ESTIMATED GFR IS NOT APPLICABLE FOR DIALYSIS PATIENTS. RAD, CHEST, 1 VIEW, NON [id number] 13:37:00Reason for exam:->eval for pneumothoraxReason for exam:->in [...] Charanjit [place] Verified Date/Time: 13:37:49 Reading Location: [facility] Radiology Reading Room CBC W/PLT COUNT & amp; AUTO [id number] 09:50:00 Test Item Value Reference Range Comments WHITE BLOOD CELL COUNT 5.8 K/ L 3.5-10.5 (BEAKER) (test avpe=660) RED BLOOD CELL COUNT (BEAKER) 4.38 M/ L 3.93-5.22 (test pqqx=494) HEMOGLOBIN (BEAKER) (test 10.3 GM/DL 11.2-15.7 pbik=273) HEMATOCRIT (BEAKER) (test 33.7 % 34.1-44.9 qazq=513) MEAN CORPUSCULAR VOLUME 76.9 fL 79.4-94.8 (BEAKER) (test oklp=485) MEAN CORPUSCULAR HEMOGLOBIN 23.5 pg 25.6-32.2 (BEAKER) (test ogvp=438) MEAN CORPUSCULAR HEMOGLOBIN 30.6 GM/DL 32.2-35.5 CONC (BEAKER) (test owtz=054) RED CELL DISTRIBUTION WIDTH 20.5 % 11.7-14.4 (BEAKER) (test nbaf=558) PLATELET COUNT (BEAKER) (test K/CU MM 150-450 Platelet clumps dyfu=920) present;unable to report true count. Platelet count should be recollected using an EDTA and CITRATE(blue) tube. MEAN PLATELET VOLUME (BEAKER) fL 9.4-12.3 Unable to report due to (test qadd=875) abnormal Platelet population distribution. NUCLEATED RED BLOOD CELLS 0 /100 WBC 0-0 (BEAKER) (test kzyx=461) NEUTROPHILS RELATIVE PERCENT 47 % (BEAKER) (test csdn=034) LYMPHOCYTES RELATIVE PERCENT 33 % (BEAKER) (test dyvm=652) MONOCYTES RELATIVE PERCENT 12 % (BEAKER) (test tbuw=514) EOSINOPHILS RELATIVE PERCENT 8 % (BEAKER) (test xfhj=956) BASOPHILS RELATIVE PERCENT 0 % (BEAKER) (test xneo=140) NEUTROPHILS ABSOLUTE COUNT 2.70 K/ L 1.56-6.13 (BEAKER) (test eqdd=896) LYMPHOCYTES ABSOLUTE COUNT 1.90 K/ L 1.18-3.74 (BEAKER) (test sljz=797) MONOCYTES ABSOLUTE COUNT 0.66 K/ L 0.24-0.36 (BEAKER) (test tzje=613) EOSINOPHILS ABSOLUTE COUNT 0.45 K/ L 0.04-0.36 (BEAKER) (test djvy=245) BASOPHILS ABSOLUTE COUNT 0.02 K/ L 0.01-0.08 (BEAKER) (test udyy=492) IMMATURE GRANULOCYTES-RELATIVE 0 % 0-1 PERCENT (BEAKER) (test ptns=8636) FL, 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 Signed: [facility] Verified Date/Time: 2017 09:43:00 Reading Location:[facility] Radiology Reading Room 09:43 AMBASIC METABOLIC [id number] 07:59:00 Test Item Value Reference Range Comments SODIUM (BEAKER) (test 135 meq/L 136-145 rhrq=969) POTASSIUM (BEAKER) (test 4.2 meq/L 3.5-5.1 fhkr=211) CHLORIDE (BEAKER) (test 110 meq/L 98-107 werb=147) CO2 (BEAKER) (test 18 meq/L 22-29 mrtc=696) BLOOD UREA NITROGEN 7 mg/dL 7-21 (BEAKER) (test tvzk=689) CREATININE (BEAKER) (test 0.63 mg/dL 0.57-1.25 sufb=527) GLUCOSE RANDOM (BEAKER) 84 mg/dL 70-105 (test dchf=195) CALCIUM (BEAKER) (test 8.6 mg/dL 8.4-10.2 zvxb=146) EGFR (BEAKER) (test 128 mL/min/1.73 sq m ESTIMATED GFR IS NOT ryxt=6233) ACCURATE CREATININE CLEARANCE IN PREDICTING GLOMERULAR FILTRATION RATE. ESTIMATED GFR IS NOT APPLICABLE FOR DIALYSIS PATIENTS. HEMOGLOBIN AND [id number] 14:41:00 Test Item Value Reference Range Comments HEMOGLOBIN (BEAKER) (test atol=307) 6.5 GM/DL 11.2-15.7 HEMATOCRIT (BEAKER) (test hqtp=283) 23.1 % 34.1-44.9 BASIC METABOLIC [id number] 08:36:00 Test Item Value Reference Range Comments SODIUM (BEAKER) (test 135 meq/L 136-145 kznz=087) POTASSIUM (BEAKER) (test 4.1 meq/L 3.5-5.1 pvru=844) CHLORIDE (BEAKER) (test 111 meq/L 98-107 feah=131) CO2 (BEAKER) (test 18 meq/L 22-29 knlw=632) BLOOD UREA NITROGEN 8 mg/dL 7-21 (BEAKER) (test mlnn=620) CREATININE (BEAKER) (test 0.61 mg/dL 0.57-1.25 alat=737) GLUCOSE RANDOM (BEAKER) 75 mg/dL 70-105 (test mffu=973) CALCIUM (BEAKER) (test 8.4 mg/dL 8.4-10.2 kjll=198) EGFR (BEAKER) (test 133 mL/min/1.73 sq m ESTIMATED GFR IS NOT lald=8429) ACCURATE CREATININE CLEARANCE IN PREDICTING GLOMERULAR FILTRATION RATE. ESTIMATED GFR IS NOT APPLICABLE FOR DIALYSIS PATIENTS. CBC W/PLT COUNT & AUTO [id number] 05:49:00 Test Item Value Reference Range Comments WHITE BLOOD CELL COUNT (BEAKER) (test tsey=210) 5.1 K/ L 3.5-10.5 RED BLOOD CELL COUNT (BEAKER) (test bhlq=174) 3.14 M/ L 3.93-5.22 HEMOGLOBIN (BEAKER) (test oohe=487) 6.3 GM/DL 11.2-15.7 HEMATOCRIT (BEAKER) (test nvni=910) 22.8 % 34.1-44.9 MEAN CORPUSCULAR VOLUME (BEAKER) (test xqjk=135) 72.6 fL 79.4-94.8 MEAN CORPUSCULAR HEMOGLOBIN (BEAKER) (test 20.1 pg 25.6-32.2 ybtf=991) MEAN CORPUSCULAR HEMOGLOBIN CONC (BEAKER) (test 27.6 GM/DL 32.2-35.5 iwaj=038) RED CELL DISTRIBUTION WIDTH (BEAKER) (test 20.5 % 11.7-14.4 snlp=284) PLATELET COUNT (BEAKER) (test edbb=752) 426 K/CU MM 150-450 MEAN PLATELET VOLUME (BEAKER) (test hmlh=041) 10.9 fL 9.4-12.3 NUCLEATED RED BLOOD CELLS (BEAKER) (test 0 /100 WBC 0-0 lvca=583) NEUTROPHILS RELATIVE PERCENT (BEAKER) (test 47 % zlnw=629) LYMPHOCYTES RELATIVE PERCENT (BEAKER) (test 30 % smsu=291) MONOCYTES RELATIVE PERCENT (BEAKER) (test 13 % vjpf=286) EOSINOPHILS RELATIVE PERCENT (BEAKER) (test 10 % tjss=141) BASOPHILS RELATIVE PERCENT (BEAKER) (test 0 % xfyy=067) NEUTROPHILS ABSOLUTE COUNT (BEAKER) (test 2.35 K/ L 1.56-6.13 anot=681) LYMPHOCYTES ABSOLUTE COUNT (BEAKER) (test 1.53 K/ L 1.18-3.74 bxvn=703) MONOCYTES ABSOLUTE COUNT (BEAKER) (test 0.67 K/ L 0.24-0.36 sylm=577) EOSINOPHILS ABSOLUTE COUNT (BEAKER) (test 0.48 K/ L 0.04-0.36 gkwr=966) BASOPHILS ABSOLUTE COUNT (BEAKER) (test 0.01 K/ L 0.01-0.08 yglv=355) IMMATURE GRANULOCYTES-RELATIVE PERCENT (BEAKER) 0 % 0-1 (test rqer=7135) HEMOGLOBIN AND [id number] 14:34:00 Test Item Value Reference Range Comments HEMOGLOBIN (BEAKER) (test mlqo=622) 7.0 GM/DL 11.2-15.7 HEMATOCRIT (BEAKER) (test berf=573) 24.7 % 34.1-44.9 CBC W/PLT COUNT & AUTO [id number] 10:55:00 Test Item Value Reference Range Comments WHITE BLOOD CELL COUNT 6.0 K/ L 3.5-10.5 (BEAKER) (test eqis=157) RED BLOOD CELL COUNT (BEAKER) 3.59 M/ L 3.93-5.22 (test zvdr=638) HEMOGLOBIN (BEAKER) (test 7.3 GM/DL 11.2-15.7 cyeq=207) HEMATOCRIT (BEAKER) (test 25.9 % 34.1-44.9 crru=139) MEAN CORPUSCULAR VOLUME 72.1 fL 79.4-94.8 (BEAKER) (test rmrc=903) MEAN CORPUSCULAR HEMOGLOBIN 20.3 pg 25.6-32.2 (BEAKER) (test doxc=346) MEAN CORPUSCULAR HEMOGLOBIN 28.2 GM/DL 32.2-35.5 CONC (BEAKER) (test ruue=228) RED CELL DISTRIBUTION WIDTH 20.2 % 11.7-14.4 (BEAKER) (test itwc=422) PLATELET COUNT (BEAKER) (test 592 K/CU MM 150-450 Platelets count from subd=167) citrated tube. MEAN PLATELET VOLUME (BEAKER) 9.4 fL 9.4-12.3 (test zwyt=233) NUCLEATED RED BLOOD CELLS 0 /100 WBC 0-0 (BEAKER) (test icny=873) NEUTROPHILS RELATIVE PERCENT 56 % (BEAKER) (test ybpz=039) LYMPHOCYTES RELATIVE PERCENT 26 % (BEAKER) (test ntlm=375) MONOCYTES RELATIVE PERCENT 10 % (BEAKER) (test wlxn=302) EOSINOPHILS RELATIVE PERCENT 8 % (BEAKER) (test cert=988) BASOPHILS RELATIVE PERCENT 0 % (BEAKER) (test tmqa=288) NEUTROPHILS ABSOLUTE COUNT 3.35 K/ L 1.56-6.13 (BEAKER) (test ynci=744) LYMPHOCYTES ABSOLUTE COUNT 1.53 K/ L 1.18-3.74 (BEAKER) (test gltx=789) MONOCYTES ABSOLUTE COUNT 0.60 K/ L 0.24-0.36 (BEAKER) (test yhsl=255) EOSINOPHILS ABSOLUTE COUNT 0.47 K/ L 0.04-0.36 (BEAKER) (test qogu=310) BASOPHILS ABSOLUTE COUNT 0.02 K/ L 0.01-0.08 (BEAKER) (test lbxg=652) IMMATURE GRANULOCYTES-RELATIVE 0 % 0-1 PERCENT (BEAKER) (test aibq=0466) BASIC METABOLIC [id number] 06:21:00 Test Item Value Reference Range Comments SODIUM (BEAKER) (test 138 meq/L 136-145 gdab=474) POTASSIUM (BEAKER) (test 4.6 meq/L 3.5-5.1 Specimen slightly aqgq=557) hemolyzed CHLORIDE (BEAKER) (test 114 meq/L 98-107 hxtu=047) CO2 (BEAKER) (test 15 meq/L 22-29 grob=097) BLOOD UREA NITROGEN 9 mg/dL 7-21 (BEAKER) (test tuhb=777) CREATININE (BEAKER) (test 0.67 mg/dL 0.57-1.25 Specimen slightly ptde=666) hemolyzed GLUCOSE RANDOM (BEAKER) 81 mg/dL 70-105 (test ctpd=861) CALCIUM (BEAKER) (test 8.6 mg/dL 8.4-10.2 rmva=128) EGFR (BEAKER) (test 119 mL/min/1.73 sq m ESTIMATED GFR IS NOT eohc=9112) ACCURATE CREATININE CLEARANCE IN PREDICTING GLOMERULAR FILTRATION RATE. ESTIMATED GFR IS NOT APPLICABLE FOR DIALYSIS PATIENTS. CBC W/PLT COUNT & AUTO [id number] 14:39:00 Test Item Value Reference Range Comments WHITE BLOOD CELL COUNT 5.3 K/ L 3.5-10.5 (BEAKER) (test ldbe=905) RED BLOOD CELL COUNT (BEAKER) 3.55 M/ L 3.93-5.22 (test nmku=471) HEMOGLOBIN (BEAKER) (test 7.3 GM/DL 11.2-15.7 ixea=785) HEMATOCRIT (BEAKER) (test 25.9 % 34.1-44.9 qirj=965) MEAN CORPUSCULAR VOLUME 73.0 fL 79.4-94.8 (BEAKER) (test hath=643) MEAN CORPUSCULAR HEMOGLOBIN 20.6 pg 25.6-32.2 (BEAKER) (test mhkv=812) MEAN CORPUSCULAR HEMOGLOBIN 28.2 GM/DL 32.2-35.5 CONC (BEAKER) (test fdwa=989) RED CELL DISTRIBUTION WIDTH 20.3 % 11.7-14.4 (BEAKER) (test efkj=432) PLATELET COUNT (BEAKER) (test 554 K/CU MM 150-450 Platelet Clumps present. ncmw=641) Unable to report true count on Purple top. Platelet Count using citrate tube MEAN PLATELET VOLUME (BEAKER) fL 9.4-12.3 Unable to report due to (test nxag=000) abnormal Platelet population distribution. NUCLEATED RED BLOOD CELLS 0 /100 WBC 0-0 (BEAKER) (test ywqn=969) NEUTROPHILS RELATIVE PERCENT 61 % (BEAKER) (test vann=498) LYMPHOCYTES RELATIVE PERCENT 25 % (BEAKER) (test qfke=508) MONOCYTES RELATIVE PERCENT 8 % (BEAKER) (test xwge=104) EOSINOPHILS RELATIVE PERCENT 6 % (BEAKER) (test rmzg=758) BASOPHILS RELATIVE PERCENT 0 % (BEAKER) (test gakc=537) NEUTROPHILS ABSOLUTE COUNT 3.25 K/ L 1.56-6.13 (BEAKER) (test ogkh=198) LYMPHOCYTES ABSOLUTE COUNT 1.32 K/ L 1.18-3.74 (BEAKER) (test zyjs=610) MONOCYTES ABSOLUTE COUNT 0.40 K/ L 0.24-0.36 (BEAKER) (test dgqd=161) EOSINOPHILS ABSOLUTE COUNT 0.34 K/ L 0.04-0.36 (BEAKER) (test qfww=791) BASOPHILS ABSOLUTE COUNT 0.01 K/ L 0.01-0.08 (BEAKER) (test wiyg=400) IMMATURE GRANULOCYTES-RELATIVE 0 % 0-1 PERCENT (BEAKER) (test pcwn=0708) RAD, CHEST, 1 VIEW, NON [id number] 10:16:00Reason for exam:->Post Power PICC insertion RUE for tip verificationShould this be performed at the bedside?- >YesFINAL REPORT AP chest HISTORY: PICC placement COMPARISON: None IMPRESSION:Right arm PICC present with tip at upper SVC. SVC filter present. Left-sided [employer] shunt. Grossly normal cardiac silhouette. Right lung clear. Moderate left effusion. Signed: Satish Kerr VerifiedDate/Time: 06/25/2018 10:16:18 Reading Location: [address] Consult Reading Room BASIC METABOLIC [id number] 09:58:00 Test Item Value Reference Range Comments SODIUM (BEAKER) (test 136 meq/L 136-145 hbnx=280) POTASSIUM (BEAKER) (test 4.4 meq/L 3.5-5.1 Specimen slightly lhqi=207) hemolyzed CHLORIDE (BEAKER) (test 107 meq/L 98-107 okoi=822) CO2 (BEAKER) (test 23 meq/L 22-29 dctf=974) BLOOD UREA NITROGEN 11 mg/dL 7-21 (BEAKER) (test fgjy=102) CREATININE (BEAKER) (test 0.68 mg/dL 0.57-1.25 Specimen slightly ldvt=445) hemolyzed GLUCOSE RANDOM (BEAKER) 92 mg/dL 70-105 (test vasa=458) CALCIUM (BEAKER) (test 8.9 mg/dL 8.4-10.2 ejoj=426) EGFR (BEAKER) (test 117 mL/min/1.73 sq m ESTIMATED GFR IS NOT exit=2726) ACCURATE CREATININE CLEARANCE IN PREDICTING GLOMERULAR FILTRATION RATE. ESTIMATED GFR IS NOT APPLICABLE FOR DIALYSIS PATIENTS. CBC W/PLT COUNT & AUTO [id number] 13:38:00 Test Item Value Reference Range Comments WHITE BLOOD CELL COUNT 7.5 K/ L 3.5-10.5 (BEAKER) (test ivns=665) RED BLOOD CELL COUNT (BEAKER) 4.45 M/ L 3.93-5.22 (test miws=199) HEMOGLOBIN (BEAKER) (test 9.2 GM/DL 11.2-15.7 rbxt=465) HEMATOCRIT (BEAKER) (test 32.4 % 34.1-44.9 fukt=172) MEAN CORPUSCULAR VOLUME 72.8 fL 79.4-94.8 (BEAKER) (test degt=751) MEAN CORPUSCULAR HEMOGLOBIN 20.7 pg 25.6-32.2 (BEAKER) (test lfsc=521) MEAN CORPUSCULAR HEMOGLOBIN 28.4 GM/DL 32.2-35.5 CONC (BEAKER) (test uvnz=109) RED CELL DISTRIBUTION WIDTH 20.6 % 11.7-14.4 (BEAKER) (test ohox=322) PLATELET COUNT (BEAKER) (test 275 K/CU MM 150-450 mmxj=652) MEAN PLATELET VOLUME (BEAKER) fL 9.4-12.3 Unable to report due to (test adfo=556) abnormal Platelet population distribution. NUCLEATED RED BLOOD CELLS 0 /100 WBC 0-0 (BEAKER) (test qdfc=235) NEUTROPHILS RELATIVE PERCENT 65 % (BEAKER) (test ssgd=450) LYMPHOCYTES RELATIVE PERCENT 23 % (BEAKER) (test gwda=764) MONOCYTES RELATIVE PERCENT 8 % (BEAKER) (test zres=266) EOSINOPHILS RELATIVE PERCENT 4 % (BEAKER) (test gwur=963) BASOPHILS RELATIVE PERCENT 0 % (BEAKER) (test sgde=037) NEUTROPHILS ABSOLUTE COUNT 4.86 K/ L 1.56-6.13 (BEAKER) (test ozhm=307) LYMPHOCYTES ABSOLUTE COUNT 1.69 K/ L 1.18-3.74 (BEAKER) (test klpx=634) MONOCYTES ABSOLUTE COUNT 0.60 K/ L 0.24-0.36 (BEAKER) (test ysvt=942) EOSINOPHILS ABSOLUTE COUNT 0.30 K/ L 0.04-0.36 (BEAKER) (test gicc=772) BASOPHILS ABSOLUTE COUNT 0.02 K/ L 0.01-0.08 (BEAKER) (test meuj=153) IMMATURE GRANULOCYTES-RELATIVE 0 % 0-1 PERCENT (BEAKER) (test hawr=3729) BASIC METABOLIC [id number] 13:03:00 Test Item Value Reference Range Comments SODIUM (BEAKER) (test 134 meq/L 136-145 rper=110) POTASSIUM (BEAKER) (test 4.3 meq/L 3.5-5.1 euom=451) CHLORIDE (BEAKER) (test 104 meq/L 98-107 rtcx=196) CO2 (BEAKER) (test 19 meq/L 22-29 mhbp=923) BLOOD UREA NITROGEN 11 mg/dL 7-21 (BEAKER) (test jwoi=400) CREATININE (BEAKER) (test 0.72 mg/dL 0.57-1.25 rcgz=539) GLUCOSE RANDOM (BEAKER) 82 mg/dL 70-105 (test hmzq=995) CALCIUM (BEAKER) (test 9.7 mg/dL 8.4-10.2 rvbc=730) EGFR (BEAKER) (test 110 mL/min/1.73 sq m ESTIMATED GFR IS NOT lbqg=1309) ACCURATE CREATININE CLEARANCE IN PREDICTING GLOMERULAR FILTRATION RATE. ESTIMATED GFR IS NOT APPLICABLE FOR DIALYSIS PATIENTS. BODY FLUID CULTURE + GRAM [id number] 16:53:00 Test Item Value Reference Range Comments CULTURE (BEAKER) (test ENTEROBACTER CLOACAE 2+ Enterobacter uuop=0810) COMPLEX cloacae complexESBL PositiveAmpC Positive Amikacin (test code=1) Aztreonam (test code=32) Cefepime (test code=51) Cefoxitin (test code=68) Ceftazidime (test code=27) Ceftriaxone (test code=52) Ertapenem (test code=38) Gentamicin (test code=18) Levofloxacin (test code=22) Meropenem (test code=34) Nitrofurantoin (test code=23) Piperacillin + Tazobactam (test code=29) Tetracycline (test code=2) Tobramycin (test code=25) Trimethoprim + Sulfamethoxazole (test code=47) CULTURE (BEAKER) (test ENTEROCOCCUS SPECIES 2+ Enterococcus hmah=9975) species Ampicillin (test code=26) Linezolid (test code=40) Vancomycin (test code=13) CULTURE (BEAKER) (test 2+ Katie dpkx=8390) parapsilosis GRAM STAIN RESULT (BEAKER) No organisms seen (test aqnr=3062) GRAM STAIN RESULT (BEAKER) 1+ White blood cells (test gglc=349903) seen URINE [id number] 10:14:00 Test Item Value Reference Range Comments CULTURE (BEAKER) (test ENTEROBACTER CLOACAE >100,000 col/mL kepm=6132) COMPLEX Enterobacter cloacae complex Amikacin (test code=1) Aztreonam (test code=32) Cefepime (test code=51) Cefoxitin (test code=68) Ceftazidime (test code=27) Ceftriaxone (test code=52) Gentamicin (test code=18) Levofloxacin (test code=22) Meropenem (test code=34) Nitrofurantoin (test code=23) Piperacillin + Tazobactam (test code=29) Tetracycline (test code=2) Tobramycin (test code=25) Trimethoprim + Sulfamethoxazole (test code=47) CULTURE (BEAKER) (test PSEUDOMONAS 30-39,000 col/mL pjhb=6981) AERUGINOSA Pseudomonas aeruginosa Amikacin (test code=1) Susceptible [...] CULTURE (BEAKER) (test ENTEROCOCCUS SPECIES 50-59,000 col/mL geda=5446) Enterococcus species Ampicillin (test code=26) Linezolid (test code=40) Nitrofurantoin (test code=23) Tetracycline (test code=2) Vancomycin (test code=13) BLOOD [id number] 11:00:00 Test Item Value Reference Range Comments CULTURE (BEAKER) (test pghe=7951) No growth in 5 days BLOOD [id number] 06:00:00 Test Item Value Reference Range Comments CULTURE (BEAKER) (test qyxz=4330) No growth in 5 days BASIC METABOLIC [id number] 04:43:00 Test Item Value Reference Range Comments SODIUM (BEAKER) (test 141 meq/L 136-145 aztg=959) POTASSIUM (BEAKER) (test 3.7 meq/L 3.5-5.1 pmqv=220) CHLORIDE (BEAKER) (test 112 meq/L 98-107 pcaw=988) CO2 (BEAKER) (test 21 meq/L 22-29 dbla=731) BLOOD UREA NITROGEN 12 mg/dL 7-21 (BEAKER) (test ayxf=307) CREATININE (BEAKER) (test 0.63 mg/dL 0.57-1.25 wwxy=199) GLUCOSE RANDOM (BEAKER) 83 mg/dL 70-105 (test phwp=994) CALCIUM (BEAKER) (test 8.9 mg/dL 8.4-10.2 omba=528) EGFR (BEAKER) (test 128 mL/min/1.73 sq m ESTIMATED GFR IS NOT xepp=9154) ACCURATE CREATININE CLEARANCE IN PREDICTING GLOMERULAR FILTRATION RATE. ESTIMATED GFR IS NOT APPLICABLE FOR DIALYSIS PATIENTS. URINALYSIS W/ REFLEX URINE [id number] 15:11:00 Test Item Value Reference Range Comments COLOR (BEAKER) (test iptj=460) [place] CLARITY (BEAKER) (test lbgp=955) Hazy SPECIFIC GRAVITY UA (BEAKER) (test vreq=384) 1.013 1.001-1.035 PH UA (BEAKER) (test fbtn=383) 6.0 5.0-8.0 PROTEIN UA (BEAKER) (test hbxe=296) 100 mg/dL Negative GLUCOSE UA (BEAKER) (test ldmd=039) Negative Negative KETONES UA (BEAKER) (test mpex=148) Trace Negative BILIRUBIN UA (BEAKER) (test izxe=011) Negative Negative BLOOD UA (BEAKER) (test cchh=336) Large Negative NITRITE UA (BEAKER) (test myhw=213) Negative Negative LEUKOCYTE ESTERASE UA (BEAKER) (test vhhi=559) Large Negative UROBILINOGEN UA (BEAKER) (test dnhs=750) 0.2 mg/dL 0.2-1.0 RBC UA (BEAKER) (test mdzp=286) > /HPF WBC UA (BEAKER) (test ppcx=793) 68 /HPF MUCUS (BEAKER) (test vupu=7137) Rare SOURCE(BEAKER) (test kzbg=1275) ANG, NEPHROSTOMY, PERC, EXTERNAL [id number] 13:43:00Reason for exam:-> right obstructing stone with UTI, needs right PCNU if possible or PCN if notFINAL REPORT Fluoroscopic and ultrasound guided right nephroureterostomy tube placement, 06/12/2018. Clinical History: Obstructing stone at the junction of the right distal ureter and ileoconduit with hydronephrosis and urosepsis. Patient has a history of spina bifida/caudal regression. Modality: Sonography and fluoroscopy Post Tronic Machine Operator: Faisal Felix MD. Statuary Painter: None. Sedation: General anesthesia provided by the [...] then removed. The tract wasdilated to 8 [place]. An 8.5 [place] by 28 cm nephroureterostomy catheter was then [...] MDReport Verified Date/Time: 06/12/2018 13:43:17 Reading Location: [facility] [address] P048 Angio Body Reading Room CBC (HEMOGRAM ONLY)2018-06-12 10:29:00 Test Item Value Reference Range Comments WHITE BLOOD CELL COUNT (BEAKER) 8.5 K/ L 3.5-10.5 (test xvvx=054) RED BLOOD CELL COUNT (BEAKER) 4.23 M/ L 3.93-5.22 (test iqmo=457) HEMOGLOBIN (BEAKER) (test 9.1 GM/DL 11.2-15.7 yupu=973) HEMATOCRIT (BEAKER) (test 31.4 % 34.1-44.9 gesx=405) MEAN CORPUSCULAR VOLUME 74.2 fL 79.4-94.8 (BEAKER) (test fmkk=826) MEAN CORPUSCULAR HEMOGLOBIN 21.5 pg 25.6-32.2 (BEAKER) (test kcdw=422) MEAN CORPUSCULAR HEMOGLOBIN 29.0 GM/DL 32.2-35.5 CONC (BEAKER) (test nymb=399) RED CELL DISTRIBUTION WIDTH 20.4 % 11.7-14.4 (BEAKER) (test gbug=019) PLATELET COUNT (BEAKER) (test K/CU MM 150-450 Platelet clumps present, ajio=149) unable to report true platelet. Recommend recollect using EDTA tube and blue (Citrate) tube. spoke to RN ID:[id number] NUCLEATED RED BLOOD CELLS 0 /100 WBC 0-0 (BEAKER) (test affg=980) BASIC METABOLIC [id number] 06:52:00 Test Item Value Reference Range Comments SODIUM (BEAKER) (test 137 meq/L 136-145 cuql=967) POTASSIUM (BEAKER) (test 3.6 meq/L 3.5-5.1 nedq=706) CHLORIDE (BEAKER) (test 108 meq/L 98-107 mdjq=435) CO2 (BEAKER) (test 20 meq/L 22-29 hfma=651) BLOOD UREA NITROGEN 14 mg/dL 7-21 (BEAKER) (test oxmo=070) CREATININE (BEAKER) (test 0.66 mg/dL 0.57-1.25 wseh=170) GLUCOSE RANDOM (BEAKER) 87 mg/dL 70-105 (test jojs=816) CALCIUM (BEAKER) (test 9.1 mg/dL 8.4-10.2 vboc=025) EGFR (BEAKER) (test 121 mL/min/1.73 sq m ESTIMATED GFR IS NOT inrv=0504) ACCURATE CREATININE CLEARANCE IN PREDICTING GLOMERULAR FILTRATION RATE. ESTIMATED GFR IS NOT APPLICABLE FOR DIALYSIS PATIENTS. [id number] 06:37:00 Test Item Value Reference Range Comments PROTIME (BEAKER) (test rhem=003) 14.4 seconds 11.7-14.7 INR (BEAKER) (test ftnh=420) 1.1 <=5.9 PARTIAL THROMBOPLASTIN TIME (BEAKER) (test 30.8 seconds 22.5-36.0 wdzf=038) RECOMMENDED COUMADIN/WARFARIN INR THERAPY RANGESSTANDARD DOSE: 2.0 - 3.0 Includes: PROPHYLAXIS forvenous thrombosis, systemic embolization; TREATMENT for venous thrombosis and/or pulmonary embolus.HIGH RISK: Target INR is 2.5-3.5 for patients with mechanical heart valves.CT, [id number] 18:04:00FINAL REPORT CT scan of the abdomen [...] MDReport Verified Date/Time: 06/11/2018 18:04:02 Reading Location: [address] Consult Reading Room PREGNANCY SCREEN, [id number] 15:46:00 Test Item Value Reference Range Comments TEST URINE (BEAKER) (test lzqx=967) Negative URINALYSIS W/ REFLEX URINE [id number] 12:32:00 Test Item Value Reference Range Comments COLOR (BEAKER) (test kvuc=060) Light Yellow CLARITY (BEAKER) (test fktn=146) Cloudy SPECIFIC GRAVITY UA (BEAKER) (test wbcw=165) 1.013 1.001-1.035 PH UA (BEAKER) (test aujz=387) 7.5 5.0-8.0 PROTEIN UA (BEAKER) (test mtsc=479) 30 mg/dL Negative GLUCOSE UA (BEAKER) (test vwgp=698) Negative Negative KETONES UA (BEAKER) (test vtod=876) Trace Negative BILIRUBIN UA (BEAKER) (test gwky=772) Negative Negative BLOOD UA (BEAKER) (test iyvc=743) Small Negative NITRITE UA (BEAKER) (test fdlk=221) Positive Negative LEUKOCYTE ESTERASE UA (BEAKER) (test bjph=005) Large Negative UROBILINOGEN UA (BEAKER) (test atlw=243) 0.2 mg/dL 0.2-1.0 RBC UA (BEAKER) (test rrow=384) 2 /HPF WBC UA (BEAKER) (test alky=370) 5 /HPF BACTERIA (BEAKER) (test afhm=064) Occasional MUCUS (BEAKER) (test klnb=2396) Rare SQUAMOUS EPITHELIAL (BEAKER) (test dmlt=320) 1 /HPF HYALINE CASTS (BEAKER) (test kjct=637) 2 /LPF SOURCE(BEAKER) (test ntvl=8064) URINALYSIS W/ [id number] 12:32:00 Test Item Value Reference Range Comments COLOR (BEAKER) (test wpjv=145) Yellow CLARITY (BEAKER) (test piwu=218) Hazy SPECIFIC GRAVITY UA (BEAKER) (test mlrw=954) 1.012 1.001-1.035 PH UA (BEAKER) (test huqg=717) 8.0 5.0-8.0 PROTEIN UA (BEAKER) (test aqit=763) 50 mg/dL Negative GLUCOSE UA (BEAKER) (test uadj=877) Negative Negative KETONES UA (BEAKER) (test sjug=594) Negative Negative BILIRUBIN UA (BEAKER) (test weez=414) Negative Negative BLOOD UA (BEAKER) (test ydkj=512) Moderate Negative NITRITE UA (BEAKER) (test gpqh=999) Positive Negative LEUKOCYTE ESTERASE UA (BEAKER) (test Large Negative mfwo=758) UROBILINOGEN UA (BEAKER) (test wmsn=121) 0.2 mg/dL 0.2-1.0 RBC UA (BEAKER) (test pqcs=482) 6 /HPF WBC UA (BEAKER) (test sobt=983) 10 /HPF BACTERIA (BEAKER) (test xrkb=646) Many MUCUS (BEAKER) (test obze=5577) Many CRYSTALS, URINE (BEAKER) (test vkqe=1809) Occasional SOURCE(BEAKER) (test nbwc=7424) Urine, Urostomy BASIC METABOLIC [id number] 06:01:00 Test Item Value Reference Range Comments SODIUM (BEAKER) (test 139 meq/L 136-145 poyj=657) POTASSIUM (BEAKER) (test 3.6 meq/L 3.5-5.1 rcll=834) CHLORIDE (BEAKER) (test 108 meq/L 98-107 atbk=169) CO2 (BEAKER) (test 23 meq/L 22-29 pnpn=891) BLOOD UREA NITROGEN 12 mg/dL 7-21 (BEAKER) (test qlrf=659) CREATININE (BEAKER) (test 0.66 mg/dL 0.57-1.25 gxnz=416) GLUCOSE RANDOM (BEAKER) 75 mg/dL 70-105 (test khnz=702) CALCIUM (BEAKER) (test 8.7 mg/dL 8.4-10.2 qtip=758) EGFR (BEAKER) (test 121 mL/min/1.73 sq m ESTIMATED GFR IS NOT cdkf=7980) ACCURATE CREATININE CLEARANCE IN PREDICTING GLOMERULAR FILTRATION RATE. ESTIMATED GFR IS NOT APPLICABLE FOR DIALYSIS PATIENTS. LACTIC ACID, VENOUS, WHOLE [id number] 05:31:00 Test Item Value Reference Range Comments LACTATE BLOOD VENOUS (2) (BEAKER) (test 0.8 mmol/L 0.5-2.2 gosf=8301) Effective 01/01/2016: Units/Reference Range ChangeNew: 0.5-2.2 mmol/L Previous: 5 -20 mg/[id number] 05:20:00 Test Item Value Reference Range Comments PARTIAL THROMBOPLASTIN TIME (BEAKER) (test 35.9 seconds 22.5-36.0 nejr=517) PROTHROMBIN [id number] 05:19:00 Test Item Value Reference Range Comments PROTIME (BEAKER) (test romp=839) 16.4 seconds 11.7-14.7 INR (BEAKER) (test jnze=496) 1.3 <=5.9 RECOMMENDED COUMADIN/WARFARIN INR THERAPY RANGESSTANDARD DOSE: 2.0 - 3.0 Includes: PROPHYLAXIS forvenous thrombosis, systemic embolization; TREATMENT for venous thrombosis and/or pulmonary embolus.HIGH RISK: Target INR is 2.5-3.5 for patients with mechanical heart valves.CBC W/PLT COUNT & AUTO [id number] 05:08:00 Test Item Value Reference Range Comments WHITE BLOOD CELL COUNT 12.2 K/ L 3.5-10.5 (BEAKER) (test hxlr=611) RED BLOOD CELL COUNT (BEAKER) 4.90 M/ L 3.93-5.22 (test gsya=484) HEMOGLOBIN (BEAKER) (test 10.6 GM/DL 11.2-15.7 xddn=387) HEMATOCRIT (BEAKER) (test 36.6 % 34.1-44.9 lbec=031) MEAN CORPUSCULAR VOLUME 74.7 fL 79.4-94.8 (BEAKER) (test meds=325) MEAN CORPUSCULAR HEMOGLOBIN 21.6 pg 25.6-32.2 (BEAKER) (test kiev=386) MEAN CORPUSCULAR HEMOGLOBIN 29.0 GM/DL 32.2-35.5 CONC (BEAKER) (test axoj=772) RED CELL DISTRIBUTION WIDTH 20.5 % 11.7-14.4 (BEAKER) (test abyd=964) PLATELET COUNT (BEAKER) (test 340 K/CU MM 150-450 gjhm=571) MEAN PLATELET VOLUME (BEAKER) 9.4 fL 9.4-12.3 Discordant MPV result (test tign=808) compared to previous one; Clinical correlation required. NUCLEATED RED BLOOD CELLS 0 /100 WBC 0-0 (BEAKER) (test iowb=039) NEUTROPHILS RELATIVE PERCENT 89 % (BEAKER) (test tmdg=793) LYMPHOCYTES RELATIVE PERCENT 5 % (BEAKER) (test mpdc=476) MONOCYTES RELATIVE PERCENT 4 % (BEAKER) (test svck=376) EOSINOPHILS RELATIVE PERCENT 2 % (BEAKER) (test eimy=750) BASOPHILS RELATIVE PERCENT 0 % (BEAKER) (test wopk=128) NEUTROPHILS ABSOLUTE COUNT 10.83 K/ L 1.56-6.13 (BEAKER) (test ebzd=523) LYMPHOCYTES ABSOLUTE COUNT 0.60 K/ L 1.18-3.74 (BEAKER) (test zllg=538) MONOCYTES ABSOLUTE COUNT 0.45 K/ L 0.24-0.36 (BEAKER) (test ujwx=064) EOSINOPHILS ABSOLUTE COUNT 0.19 K/ L 0.04-0.36 (BEAKER) (test zkzb=613) BASOPHILS ABSOLUTE COUNT 0.03 K/ L 0.01-0.08 (BEAKER) (test ysix=142) IMMATURE 1 % 0-1 GRANULOCYTES-RELATIVE PERCENT (BEAKER) (test zuzs=3130) LACTIC ACID, ARTERIAL, WHOLE [id number] 02:05:00 Test Item Value Reference Range Comments LACTATE BLOOD ARTERIAL (2) 0.6 mmol/L 0.5-2.2 Specimen slightly hemolyzed (BEAKER) (test ssij=6423) Effective 01/01/2016: Units/Reference Range ChangeNew: 0.5-2.2 mmol/L Previous: 5 -20 mg/[id number] 01:43:00 Test Item Value Reference Range Comments MAGNESIUM (BEAKER) (test 2.0 mg/dL 1.6-2.6 Specimen moderately hemolyzed zhsm=534) [id number] 01:43:00 Test Item Value Reference Range Comments PHOSPHORUS (BEAKER) (test 3.0 mg/dL 2.3-4.7 Specimen moderately hemolyzed lvrw=155) COMPREHENSIVE METABOLIC [id number] 01:43:00 Test Item Value Reference Range Comments TOTAL PROTEIN (BEAKER) 7.3 gm/dL 6.0-8.3 Specimen moderately (test shtr=725) hemolyzed ALBUMIN (BEAKER) (test 3.3 g/dL 3.5-5.0 Specimen moderately vzlt=7656) hemolyzed ALKALINE PHOSPHATASE 56 U/L 40-150 (BEAKER) (test lnhb=085) BILIRUBIN TOTAL (BEAKER) 0.4 mg/dL 0.2-1.2 Specimen moderately (test fxat=870) hemolyzed SODIUM (BEAKER) (test 133 meq/L 136-145 veht=530) POTASSIUM (BEAKER) (test 4.5 meq/L 3.5-5.1 Specimen moderately bila=763) hemolyzed CHLORIDE (BEAKER) (test 108 meq/L 98-107 gayz=677) CO2 (BEAKER) (test 15 meq/L 22-29 hvtm=883) BLOOD UREA NITROGEN 12 mg/dL 7-21 (BEAKER) (test pvmw=520) CREATININE (BEAKER) (test 0.61 mg/dL 0.57-1.25 Specimen moderately ktpq=063) hemolyzed GLUCOSE RANDOM (BEAKER) 92 mg/dL 70-105 (test eaxf=688) CALCIUM (BEAKER) (test 8.3 mg/dL 8.4-10.2 xklo=819) AST (SGOT) (BEAKER) (test 35 U/L 5-34 Specimen moderately lqoq=583) hemolyzed ALT (SGPT) (BEAKER) (test 14 U/L 6-55 Specimen moderately ormf=235) hemolyzed EGFR (BEAKER) (test 133 mL/min/1.73 sq ESTIMATED GFR IS NOT dovq=0300) m ACCURATE CREATININE CLEARANCE IN PREDICTING GLOMERULAR FILTRATION RATE. ESTIMATED GFR IS NOT APPLICABLE FOR DIALYSIS PATIENTS. CBC W/PLT COUNT & AUTO [id number] 01:20:00 Test Item Value Reference Range Comments WHITE BLOOD CELL COUNT (BEAKER) (test xpko=677) 21.0 K/ L 3.5-10.5 RED BLOOD CELL COUNT (BEAKER) (test ssyf=684) 3.83 M/ L 3.93-5.22 HEMOGLOBIN (BEAKER) (test vajm=848) 8.4 GM/DL 11.2-15.7 HEMATOCRIT (BEAKER) (test skgv=512) 28.3 % 34.1-44.9 MEAN CORPUSCULAR VOLUME (BEAKER) (test omwl=893) 73.9 fL 79.4-94.8 MEAN CORPUSCULAR HEMOGLOBIN (BEAKER) (test 21.9 pg 25.6-32.2 umiu=618) MEAN CORPUSCULAR HEMOGLOBIN CONC (BEAKER) (test 29.7 GM/DL 32.2-35.5 cnsl=044) RED CELL DISTRIBUTION WIDTH (BEAKER) (test 20.3 % 11.7-14.4 koni=498) PLATELET COUNT (BEAKER) (test uspv=312) 398 K/CU MM 150-450 MEAN PLATELET VOLUME (BEAKER) (test gugc=273) 10.2 fL 9.4-12.3 NUCLEATED RED BLOOD CELLS (BEAKER) (test 0 /100 WBC 0-0 jpqb=202) NEUTROPHILS RELATIVE PERCENT (BEAKER) (test 87 % lehk=008) LYMPHOCYTES RELATIVE PERCENT (BEAKER) (test 6 % ckru=353) MONOCYTES RELATIVE PERCENT (BEAKER) (test 6 % sksg=607) EOSINOPHILS RELATIVE PERCENT (BEAKER) (test 1 % ablo=235) BASOPHILS RELATIVE PERCENT (BEAKER) (test 0 % fcwo=700) NEUTROPHILS ABSOLUTE COUNT (BEAKER) (test 18.34 K/ L 1.56-6.13 zrgq=726) LYMPHOCYTES ABSOLUTE COUNT (BEAKER) (test 1.15 K/ L 1.18-3.74 yfhx=813) MONOCYTES ABSOLUTE COUNT (BEAKER) (test 1.21 K/ L 0.24-0.36 fikm=665) EOSINOPHILS ABSOLUTE COUNT (BEAKER) (test 0.13 K/ L 0.04-0.36 jegh=762) BASOPHILS ABSOLUTE COUNT (BEAKER) (test 0.06 K/ L 0.01-0.08 hnnb=908) IMMATURE GRANULOCYTES-RELATIVE PERCENT (BEAKER) 1 % 0-1 (test tiun=7358)
[2019-01-21] MEDS ORDERED: ONDANSETRON 4 MG/2 ML VIAL ONE (21:25)
[2019-01-21] MEDS ORDERED: MEPERIDINE HCL 50 MG/ML AMP ONE (21:25)
--- NOTE | 2019-01-21 23:25 | EDPHYS ---
Physician Documentation [facility] Name: Leila Aquino Age: 38 yrs Sex: Female : 1980 Arrival Date: 01/21/2019 Time: 19:28 Bed 27 Private MD: ED Physician Carl Watosn HPI: 01/21 23:17 This 38 yrs old Black Female presents to ER via EMS with unknown complaint. pkl 23:17 The patient complains of pain in the right flank. Onset: The symptoms/episode pkl began/occurred just prior to arrival, 4 hour(s) ago. Patient accidentally pulled out Nephrostomy tube 4 hours ago. Had Nephrostomy tube placement on 01/12/19 for kidney stones.. Historical: - Allergies: 19:31 Latex, Natural Rubber; fu 19:31 Morphine; fu 19:31 Vancomycin; fu 19:31 chloradate; fu - PMHx: 19:31 Anemia; Asthma; DVT; Hypertension; Kidney stones; Osteomyelitis-L foot; osteomyolitis L fu foot; Sepsis; spina bifida; Upper extremity DVT- L arm; UTI; ADD/ADHD; - Immunization history:: Adult Immunizations unknown. - Social history:: Smoking status: unknown. - Ebola Screening: : No symptoms or risks identified at this time. ROS: 23:17 Eyes: Negative for injury, pain, redness, and discharge, ENT: Negative for injury, pkl pain, and discharge, Neck: Negative for injury, pain, and swelling, Cardiovascular: Negative for chest pain, palpitations, and edema, Respiratory: Negative for shortness of breath, cough, wheezing, and pleuritic chest pain, Abdomen/GI: Negative for abdominal pain, nausea, vomiting, diarrhea, and constipation. 23:17 Back: Positive for pain at rest, flank pain, on the right. 23:17 : Negative for urinary symptoms. 23:17 MS/extremity: Negative for acute changes. 23:17 Skin: Negative for rash. 23:17 Neuro: Negative for altered mental status. Exam: 23:17 Head/Face: Normocephalic, atraumatic. Eyes: Pupils equal round and reactive to light, pkl extra-ocular motions intact. Lids and lashes normal. Conjunctiva and sclera are non-icteric and not injected. Cornea within normal limits. Periorbital areas with no swelling, redness, or edema. ENT: Nares patent. No nasal discharge, no septal abnormalities noted. Tympanic membranes are normal and external auditory canals are clear. Oropharynx with no redness, swelling, or masses, exudates, or evidence of obstruction, uvula midline. Mucous membranes moist. Neck: Trachea midline, no thyromegaly or masses palpated, and no cervical lymphadenopathy. Supple, full range of motion without nuchal rigidity, or vertebral point tenderness. No Meningismus. Chest/axilla: Normal chest wall appearance and motion. Nontender with no deformity. No lesions are appreciated. Cardiovascular: Regular rate and rhythm with a normal S1 and S2. No gallops, murmurs, or rubs. Normal PMI, no JVD. No pulse deficits. Respiratory: Lungs have equal breath sounds bilaterally, clear to auscultation and percussion. No rales, rhonchi or wheezes noted. No increased work of breathing, no retractions or nasal flaring. Abdomen/GI: Soft, non-tender, with normal bowel sounds. No distension or tympany. No guarding or rebound. No evidence of tenderness throughout. Back: No spinal tenderness. No costovertebral tenderness. Full range of motion. Skin: Warm, dry with normal turgor. Normal color with no rashes, no lesions, and no evidence of cellulitis. MS/ Extremity: Pulses equal, no cyanosis. Neurovascular intact. Full, normal range of motion. Neuro: Awake and alert, GCS 15, oriented to person, place, time, and situation. Cranial nerves II-XII grossly intact. Motor strength 5/5 in all extremities. Sensory grossly intact. Cerebellar exam normal. Normal gait. Vital Signs: 19:31 BP 124 / 83; Pulse 96; Resp 18; Temp 98.2; Pulse Ox 100% ; Pain 8/10; fu 20:30 BP 123 / 86; Pulse 94; Resp 18; Pulse Ox 100% on R/A; fu 22:00 BP 123 / 87; Pulse 99; Resp 18; Pulse Ox 99% on R/A; Pain 7/10; fu 23:00 BP 123 / 89; Pulse 101; Resp 18; Temp 97.4; Pulse Ox 96% ; Pain 7/10; fu MDM: 20:59 Patient medically screened. pkl 23:17 Data reviewed: vital signs, nurses notes. pkl Administered Medications: 21:20 Drug: Demerol 50 mg Route: IM; Site: right deltoid; fu 22:06 Follow up: Response: Pain is decreased fu 21:20 Drug: Zofran 4 mg Route: IM; Site: left deltoid; fu 22:06 Follow up: Response: Nausea is decreased fu 23:40 Drug: NS 0.9% 1000 ml Route: IV; Rate: 125 ml/hr; Site: left forearm; mg2 01/22 00:25 Drug: Demerol 25 mg Route: IVP; Site: left forearm; fu Disposition: 01/21/19 23:25 Transfer ordered to [facility]. Diagnosis is Right Nephrostomy tube dislodge. H/O kidney stones. - Reason for transfer: Higher level of care. - Accepting physician is Dr. Roger. - Condition is Stable. - Problem is new. - Symptoms are unchanged. Signatures: Carl Watson MD MD pkl Ramon Samaniego RN RN Christ Weber RN RN mg2 Corrections: (The following items were deleted from the chart) 01:41 01/21 23:25 01/21/2019 23:25 Transfer ordered to [facility]. mg2 Diagnosis is Right Nephrostomy tube dislodge. H/O kidney stones. Reason for transfer: Higher level of care. Accepting physician is Dr. Roger. Condition is Stable. Problem is new. Symptoms are unchanged. pkl
--- NOTE | 2019-01-21 23:25 | ER ---
Nurse's Notes [facility] Name: Leila Aquino Age: 38 yrs Sex: Female : 1980 Arrival Date: 01/21/2019 Time: 19:28 Bed 27 Private MD: Diagnosis: Right Nephrostomy tube dislodge. H/O kidney stones Presentation: 01/21 19:29 Presenting complaint: EMS states: Nephrostomy tube came out. Transition of care: fu patient was not received from another setting of care. Onset of symptoms was January 21, 2019. Risk Assessment: Do you want to hurt yourself or someone else? Patient reports no desire to harm self or others. Initial Sepsis Screen: Does the patient meet any 2 criteria? No. Patient's initial sepsis screen is negative. Does the patient have a suspected source of infection? No. Patient's initial sepsis screen is negative. Care prior to arrival: None. 19:29 Method Of Arrival: EMS: [facility] fu 19:29 Acuity: PAYTON 3 fu Historical: - Allergies: 19:31 Latex, Natural Rubber; fu 19:31 Morphine; fu 19:31 Vancomycin; fu 19:31 chloradate; fu - PMHx: 19:31 Anemia; Asthma; DVT; Hypertension; Kidney stones; Osteomyelitis-L foot; osteomyolitis L fu foot; Sepsis; spina bifida; Upper extremity DVT- L arm; UTI; ADD/ADHD; - Immunization history:: Adult Immunizations unknown. - Social history:: Smoking status: unknown. - Ebola Screening: : No symptoms or risks identified at this time. Screenin:41 Abuse screen: Denies threats or abuse. Denies injuries from another. Nutritional mg2 screening: No deficits noted. Tuberculosis screening: No symptoms or risk factors identified. Fall Risk IV access (20 points). Gait- Impaired (20 pts.). Assessment: 20:16 General: Appears uncomfortable, Behavior is calm, cooperative, appropriate for age, fu Smells of urine. Reports chills for 12-24 hours, pain to right side, nausea Denies vomitng. Pain: Complains of pain in low back area Pain does not radiate. Pain currently is 8 out of 10 on a pain scale. Pain began 1 day ago. Is intermittent. Respiratory: Airway is patent Respiratory effort is even, unlabored, GI: colostomy to LLQ noted, bag in place. : patient reports nephrostomy tube came out today. urostomy to right side connected to collection bag, small amount of yellowish urine noted. Patient had nephrostomy done on January 12, 2019. Derm: scar to abdomen noted from previous surgery. Musculoskeletal: Atrophy noted in right leg and left leg. 22:11 Reassessment: Patient is alert, oriented x 3, equal unlabored respirations, skin fu warm/dry/pink. Pain: Complains of pain in right side Pain currently is 7 out of 10 on a pain scale. Respiratory: Airway is patent Respiratory effort is even, unlabored, Breath sounds are clear. 23:43 Reassessment: Patient is alert, oriented x 3, equal unlabored respirations, skin fu warm/dry/pink. Vital Signs: 19:31 BP 124 / 83; Pulse 96; Resp 18; Temp 98.2; Pulse Ox 100% ; Pain 8/10; fu 20:30 BP 123 / 86; Pulse 94; Resp 18; Pulse Ox 100% on R/A; fu 22:00 BP 123 / 87; Pulse 99; Resp 18; Pulse Ox 99% on R/A; Pain 7/10; fu 23:00 BP 123 / 89; Pulse 101; Resp 18; Temp 97.4; Pulse Ox 96% ; Pain 7/10; fu ED Course: 19:28 Patient arrived in ED. fu 19:29 Triage completed. fu 19:29 Arm band placed on left wrist. fu 19:36 Ramon Samaniego, RN is Primary Nurse. fu 20:40 Bed in low position. Call light in reach. Side rails up X2. fu 20:59 Carl Watson MD is Attending Physician. pkl 21:15 Dr. Watson in patient room talking with patient. fu 22:12 Awaiting: for to Dr. Watson to call urology doctor in [place]. fu 23:40 No provider procedures requiring assistance completed. Inserted saline lock: 22 gauge mg2 in left forearm, using aseptic technique. 01/22 01:15 Report given to Report called to Moe Weinberg in [facility]. fu Administered Medications: 01/21 21:20 Drug: Demerol 50 mg Route: IM; Site: right deltoid; fu 22:06 Follow up: Response: Pain is decreased fu 21:20 Drug: Zofran 4 mg Route: IM; Site: left deltoid; fu 22:06 Follow up: Response: Nausea is decreased fu 23:40 Drug: NS 0.9% 1000 ml Route: IV; Rate: 125 ml/hr; Site: left forearm; mg2 01/22 00:25 Drug: Demerol 25 mg Route: IVP; Site: left forearm; fu Outcome: 01/21 23:25 ER care complete, transfer ordered by . harvey 01/22 01:07 Transferred to [facility]. fu Condition: good Instructed on the need for transfer. 01:41 Patient left the ED. mg2 Signatures: Carl Watson MD MD pkRamon Isaac, RN RN Christ Weber RN RN mg2
[2019-01-21] MEDS ORDERED: NA CHLORIDE 0.9% 1,000 ML ONE (23:47)
[2019-01-22] MEDS ORDERED: MEPERIDINE HCL 25 MG/0.5 ML ONE (00:37)
[2019-01-22 02:34] VITALS: BP 123/89; TEMP 97.4; O2SAT 96
== END 2019-01-22 01:41 | disposition short-term general hospital (02) ==
LOC: ER 19:17
DX: N99.528 Other complication of incontinent external stoma of urinary tract (principal); Z87.442 Personal history of urinary calculi; D64.9 Anemia, unspecified; J45.909 Unspecified asthma, uncomplicated; I10 Essential (primary) hypertension; F90.9 Attention-deficit hyperactivity disorder, unspecified type; Z88.5 Allergy status to narcotic agent; Z88.1 Allergy status to other antibiotic agents; Z91.040 Latex allergy status
CPT/HCPCS: 96372; 96374; 99285; J2175 ×2; J7030; J2405

== ENCOUNTER 2019-01-30 15:00 | Emergency (ER) | payer OTHER ==
--- OUTSIDE RECORDS SUMMARY | 2019-01-30 15:16 | XMS REPORT | Clinical Summary ---
:1980 Author Organization [facility] Address [address] [place] [address] Care Team Providers Name Role Phone Beverley [...] Right ureteral stone Rashida King MD after 01/29/2018 Social History Tobacco Use Types Packs/Day Years [...] Not on file Implants Implanted Type Area [place] Repairer Device Shelf Model / Identifier Expiration Date Serial / Lot Matrix Floseal Hemo W/O [id number] - [id number] Cement/Fi NAVARRO:BIOSCI [id number] / Implanted: Qty: 1 on 06/28/2018 by Hao Welch MD ller/Ramila / kalpana [id number] Procedures Procedure Name Priority Date/Time Associated Comments Diagnosis TRANSFUSE Routine 10/06/2018 5:33 LEUKO-REDUCED RED PM FAMILY CONSUMER SCIENCE TEACHER BLOOD CELLS TRANSFUSION SERVICE 06/30/2018 6:01 REPORT [...] procedure are in the results section. [place] SUPERVISING FIRE MARSHAL IN OR 30 Routine 06/28/2018 9:20 Results [...] procedure are in the results section. after 01/29/2018 Results Transfuse Leuko-Red RBC (10/06/2018 5:33 PM FAMILY CONSUMER SCIENCE TEACHER)TRANSFUSION SERVICE REPORT - SCAN (06/30/2018 6:01 PM CDT)Only the most recent of3 resultswithin the time period is included. Narrative Performed At Prepare Leuko-Red RBC (06/29/2018 11:54 PM CDT) CROSSMATCH COMPATIBLE [place]AF[place] Unit ABO A Neg [place] [place] UNIT NUMBER [id number] [place] Status TRANSFUSED [place]AF[place] Blood Bank Product RED BLOOD CELLS [place]AF[place] PRODUCT CODE [id number] [place] CROSSMATCH COMPATIBLE SAFETRACE TX Unit ABO A Neg SAFETRACE TX UNIT NUMBER [id number] [place] Status TRANSFUSED SAFET[place] Blood Bank Product RED BLOOD CELLS [place] PRODUCT CODE [id number] [place] Specimen Other Performing Organization Address City/State/Zipcode Phone Number [place] CBC with platelet count + automated diff (06/29/2018 5:26 AM CDT)Only the most recent of9 resultswithin the time period is included. WBC 9.2 3.5 - 10.5 K/L [facility] RBC 4.41 3.93 - 5.22 M/L [facility] Hemoglobin 10.1 (L) 11.2 - 15.7 GM/DL [facility] Hematocrit 33.7 (L) 34.1 - 44.9 % [facility] MCV 76.4 (L) 79.4 - 94.8 fL [facility] MCH 22.9 (L) 25.6 - 32.2 pg [facility] MCHC 30.0 (L) 32.2 - 35.5 GM/DL [facility] RDW 21.2 (H) 11.7 - 14.4 % [facility] Platelets 51 (L) 150 - 450 K/CU MM [facility] MPV Comment: Unable to 9.4 - 12.3 fL [facility] report due to abnormal [facility] Platelet population distribution. nRBC 0 0 - 0 /100 WBC [facility] % Neutros 71 % [facility] % Lymphs 17 % [facility] % Monos 10 % [facility] % Eos 1 % [facility] % Baso 0 % [facility] # Neutros 6.59 (H) 1.56 - 6.13 K/L [facility] # Lymphs 1.59 1.18 - 3.74 K/L [facility] # Monos 0.91 (H) 0.24 - 0.36 K/L [facility] # Eos 0.07 0.04 - 0.36 K/L [facility] # Baso 0.03 0.01 - 0.08 K/L [facility] Immature 0 0 - 1 % [facility] Granulocytes-Relative [facility] Specimen Blood Performing Organization Address City/State/Zipcode Phone Number [facility] [address] [place] [address] CENTER Basic Metabolic Panel (06/29/2018 5:26 AM CDT)Only the most recent of10 resultswithin the time period is included. Sodium 137 136 - 145 meq/L [facility] Potassium 3.7 3.5 - 5.1 meq/L [facility] Chloride 112 (H) 98 - 107 meq/L [facility] CO2 17 (L) 22 - 29 meq/L [facility] BUN 7 7 - 21 mg/dL [facility] Creatinine 0.64 0.57 - 1.25 mg/dL [facility] Glucose 82 70 - 105 mg/dL [facility] Calcium 8.9 8.4 - 10.2 mg/dL [facility] EGFR 126Comment: ESTIMATED GFR IS mL/min/1.73 sq m [facility] NOT ACCURATE CREATININE [facility] CENTER CLEARANCE IN PREDICTING GLOMERULAR FILTRATION RATE. ESTIMATED GFR IS NOT APPLICABLE FOR DIALYSIS PATIENTS. Specimen Blood Performing Organization Address City/State/Zipcode Phone Number [facility] [address] [place] [address] abdomen/pelvis without iv contrast (06/29/2018 5:12 AM CDT)Only the most recent of2 resultswithin the time period is included. Specimen Narrative Performed At FINAL REPORT [employer] INDICATION: 37-year-old female status post recent percutaneous [...] MD Report Verified Date/Time:06/29/2018 07:41:57 Reading Location: [facility] Diagnostic Imaging Reading Room - [place] [id number] Procedure Note Interface, External Ris In - [...] Report Verified Date/Time: 06/29/2018 07:41:57 Reading Location: [facility] Diagnostic Imaging Reading Room - [place] [id number] Performing Organization Address City/State/Zipcode Phone Number [employer] XR chest 1 view portable / bedside (06/28/2018 12:30 PM CDT)Only the most recent of2 resultswithin the time period is included. Specimen Narrative Performed At FINAL REPORT [employer] TECHNIQUE: Frontal chest radiograph dated 06/28/2018. CLINICAL [...] MD Report Verified Date/Time:06/28/2018 13:37:49 Reading Location: [facility] Radiology Reading Room Procedure Note Interface, [...] Report Verified Date/Time: 06/28/2018 13:37:49 Reading Location: [facility] Radiology Reading Room Performing Organization Address City/State/Zipcode Phone Number [facility] STONE ANALYSIS (06/28/2018 9:34 AM CDT) Stone [...] analytical performance characteristics have been determined by [employer]. It has not been cleared or approved by the US Food and Drug Administration. This assay has been validated pursuant to the CLIA regulations and is used for clinical purposes. Specimen Calculus Narrative Performed At Performing Lab [facility], [address] [place], [place] [address] Jaret Sanchez MD, PhD Performing Organization Address City/State/Zipcode [place] [address] [facility] Anaerobic culture (06/28/2018 9:28 AM CDT) Result No anaerobes isolated [facility] Specimen Calculus Performing Organization Address City/[facility] Phone Number [facility] [address] [place] [address] CENTER Surgically obtained culture + gram stain (06/28/2018 9:28 AM CDT) Result 2+ Enterococcus species (A) [facility] Result BOWEN ALBICANS (A) [facility] Result [facility]BS[facility]LLA PNEUMONIAE [facility] PNEUMONIAE (A) [facility] Result 1+ Vancomycin resistant [facility] Enterococcus species (A) [facility] Specimen [...] 1.5: Susceptible Enterococcus species Performing Organization Address City/[facility]/Zipcode Phone Number [facility] [address] [place] [address] [phone] CENTER [place] radar operator in or 30 minute increments (06/28/2018 9:20 AM CDT) Specimen Narrative Performed At FINAL REPORT [facility] History: PCNL COMPARISON: None DISCUSSION: A total [...] MD Report Verified Date/Time:06/28/2018 09:43:00 Reading Location: [facility] Radiology Reading Room Procedure Note Interface, External [...] Report Verified Date/Time: 06/28/2018 09:43:00 Reading Location: [facility] Radiology Reading Room Performing Organization Address [facility] Cent[facility]ode Phone Number GE RIS Type and screen, automated (06/27/2018 8:51 PM CDT) ABO/RH AUTOMATED (BEAKER) A NEGATIVE [facility] Ab Scrn NEGATIVE [facility] Specimen Blood Performing Organization Address [facility] Cent[facility]ode Phone Number [facility] [address] [place] [address] [phone] Hemoglobin and hematocrit (06/27/2018 1:50 PM CDT)Only the most recent of2 resultswithin the time period is included. Hemoglobin 6.5 (L) 11.2 - 15.7 GM/DL [facility] Hematocrit 23.1 (L) 34.1 - 44.9 % [facility] Specimen Blood Performing Organization Address [facility] Phone Number [address] [address] [phone] CENTER Urine culture (06/24/2018 12:41 PM CDT)Only the most recent of4 resultswithin the time period is included. Result >100,000 col/mL Same organism has been isolated from cultures(s) of the same body site and collection date. Repeat identification and susceptibility testing performed only after consultation with the clinical microbiology laboratory. (A) [facility] Comment: MEDICAL [facility]ENTER Refer to previous culture of Enterococcus species Result 20-29,000 col/mL Same organism has been isolated from cultures(s) of the same body site and collection date. Repeat identification and susceptibility testing performed only after consultation with the clinical microbiology laboratory. (A) [facility] Comment: MEDICAL CENTER Refer to previous culture of Enterobacter cloacae Result PSEUDOMONAS AERUGINOSA (A) [facility] Result BOWEN PARAPSILOSIS (A) [facility] Specimen Urine Organism Antibiotic Method Susceptibility [...] aeruginosa Tobramycin >8: Resistant Performing Organization Address City/[facility] Phone Number [address], [place] [phone] [place] Urinalysis w/Microscopic + Reflex to Culture (06/12/2018 2:36 PM CDT)Only the most recent of2 resultswithin the time period is included. Color, UA Sabinal [facility] Clarity, UA Hazy [facility] Specific [place], UA 1.013 1.001 - 1.035 [facility] pH, UA 6.0 5.0 - 8.0 [facility] Protein, UA 100 mg/dL (A) Negative [facility] Glucose, UA Negative Negative [facility] Ketones, UA Trace (A) Negative [facility] Bilirubin, UA Negative Negative [facility] Blood, UA Large (A) Negative [facility] Nitrite, UA Negative Negative [facility] Leukocytes, UA Large (A) Negative [facility] Urobilinogen, UA 0.2 0.2 - 1.0 mg/dL [facility] RBC, UA >182 /HPF [facility] WBC, UA 68 /HPF [facility] Mucus Rare [facility] Specimen Source [facility] Specimen Urine - Urine, Nephrostomy Performing Organization Address City/State/Zipcode Phone Number [address] [address] CENTER IR Percutaneous Nephrostomy - Ext. Drain Placement (06/12/2018 11:48 AM CDT) Specimen Narrative Performed At FINAL REPORT [facility] Fluoroscopic and ultrasound guided right nephroureterostomy tube placement, 06/12/2018. Clinical History: Obstructing stone at the junction of the right distal ureter and ileoconduit with hydronephrosis and urosepsis. Patient has a history of spina bifida/caudal regression. Modality: Sonography and fluoroscopy Cement Mixer:Faisal Felix MD. Time Clock Inspector:None. Sedation: General anesthesia provided by the anesthesia [...] removed. The tract was dilated to 8 Bahamian. An 8.5 Bahamian by 28 cm nephroureterostomy catheter was then [...] MD Report Verified Date/Time:06/12/2018 13:43:17 Reading Location: [facility] P048 Angio Body Reading Room Procedure Note Interface, External Ris In - 06/12/2018 1:45 PM CDT FINAL REPORT Fluoroscopic and ultrasound guided right nephroureterostomy tube placement, 06/12/2018. Clinical History: Obstructing stone at the junction of the right distal ureter and ileoconduit with hydronephrosis and urosepsis. Patient has a history of spina bifida/caudal regression. Modality: Sonography and fluoroscopy Cement Mixer: Faisal Felix MD. Time Clock Inspector: None. Sedation: General anesthesia provided by the [...] removed. The tract was dilated to 8 Bahamian. An 8.5 Bahamian by 28 cm nephroureterostomy catheter was then [...] Report Verified Date/Time: 06/12/2018 13:43:17 Reading Location: [facility] P048 Angio Body Reading Room Performing Organization Address City/State/Zipcode Phone Number GE RIS Body fluid culture + gram stain (06/12/2018 11:40 AM CDT) Result ENTEROBACTER CLOACAE COMPLEX (A) [facility] Comment: MEDICAL CENTER ESBL Positive AmpC Positive Result 2+ Enterococcus species (A) [facility] Result BOWEN PARAPSILOSIS (A) [facility] Gram Stain Result No organisms seen [facility] Gram Stain Result 1+ White blood cells seen [facility] Specimen Urine - Urine, Surgically Obtained [...] species Vancomycin <=0.5: Susceptible Performing Organization Address City/[facility] Phone Number [address] [address] [place] CBC (Hemogram only) (06/12/2018 8:07 AM CDT) WBC 8.5 3.5 - 10.5 K/L [facility] RBC 4.23 3.93 - 5.22 M/L [facility] Hemoglobin 9.1 (L) 11.2 - 15.7 GM/DL [facility] Hematocrit 31.4 (L) 34.1 - 44.9 % [facility] MCV 74.2 (L) 79.4 - 94.8 fL [facility] MCH 21.5 (L) 25.6 - 32.2 pg [facility] MCHC 29.0 (L) 32.2 - 35.5 GM/DL [facility] RDW 20.4 (H) 11.7 - 14.4 % [facility] Platelets Comment: Platelet clumps 150 - 450 K/CU MM [facility] present, unable to report MED[facility]ENTER true platelet. Recommend recollect using EDTA tube and blue (Citrate) tube. spoke to RN ID:[id number] nRBC 0 0 - 0 /100 WBC [facility] Specimen Blood Performing Organization Address City/[facility]/Zipcode Phone Number [address] [address] [phone] [place] PT/aPTT (06/12/2018 6:07 AM CDT) Protime 14.4 11.7 - 14.7 seconds [facility] INR 1.1 <=5.9 [facility] PTT 30.8 22.5 - 36.0 seconds [facility] Specimen Blood Narrative Performed At [facility] RECOMMENDED COUMADIN/WARFARIN INR THERAPY RANGES STANDARD DOSE: 2.0 - 3.0 Includes: PROPHYLAXIS for venous thrombosis, systemic embolization; TREATMENT for venous thrombosis and/or pulmonary embolus. HIGH RISK: Target INR is 2.5-3.5 for patients with mechanical heart valves. Performing Organization Address [facility] Phone Number [address] [address] [phone] [place] Screen, urine (06/11/2018 11:20 AM CDT) Preg Test, Ur Negative [facility] Specimen Urine - Urine, Urostomy Performing Organization Address [facility] Phone Number [address] [address] [phone] [place] Blood culture #2 (06/11/2018 4:55 AM CDT)Only the most recent of2 resultswithin the time period is included. Result No growth in 5 days [facility] Specimen Blood Performing Organization Address [facility] Phone Number [address] [address] [phone] [place] Lactic acid, venous, whole blood (06/11/2018 4:54 AM CDT) Lactate, Venous 0.8 0.5 - 2.2 mmol/L [facility] Specimen Blood Narrative Performed At [facility] Effective 01/01/2016: Units/Reference Range Change New: 0.5-2.2 mmol/LPrevious: 5-20 mg/dL Performing Organization Address [facility] Phone Number [address] [address] [place] aPTT (06/11/2018 4:54 AM CDT) PTT 35.9 22.5 - 36.0 seconds [facility] Specimen Blood Performing Organization Address [facility] Phone Number [address] [address] CENTER Prothrombin time/INR (06/11/2018 4:54 AM CDT) Protime 16.4 (H) 11.7 - 14.7 seconds [facility] INR 1.3 <=5.9 [facility] Specimen Blood Narrative Performed At [facility] RECOMMENDED COUMADIN/WARFARIN INR THERAPY RANGES STANDARD DOSE: 2.0 - 3.0 Includes: PROPHYLAXIS for venous thrombosis, systemic embolization; TREATMENT for venous thrombosis and/or pulmonary embolus. HIGH RISK: Target INR is 2.5-3.5 for patients with mechanical heart valves. Performing Organization Address [facility] Phone Number [address] [address] [phone] CENTER Lactic acid, arterial, whole blood (06/11/2018 1:02 AM CDT) Lactate, Art 0.6Comment: Specimen 0.5 - 2.2 mmol/L [facility] slightly hemolyzed [facility] Specimen Blood, Arterial Narrative Performed At [facility] Effective 01/01/2016: Units/Reference Range Change New: 0.5-2.2 mmol/LPrevious: 5-20 mg/dL Performing Organization Address [facility] Phone Number [address] [address] CENTER Phosphorus (06/11/2018 1:02 AM CDT) Phosphorus 3.0Comment: Specimen 2.3 - 4.7 mg/dL [facility] moderately hemolyzed [facility] Specimen Blood Performing Organization Address [facility] Phone Number [address] [phone] CENTER Magnesium (06/11/2018 1:02 AM CDT) Magnesium 2.0Comment: Specimen 1.6 - 2.6 mg/dL [facility] hemolyzed [facility] Specimen Blood Performing Organization Address City/State/Zipcode Phone Number [facility] [address] [place], [place] [phone] CENTER Comprehensive metabolic panel (06/11/2018 1:02 AM CDT) Protein, Total 7.3Comment: Specimen 6.0 - 8.3 gm/dL [facility] hemolyzed [facility] Albumin 3.3 (L)Comment: Specimen 3.5 - 5.0 g/dL [facility] hemolyzed [facility] Alkaline Phosphatase 56 40 - 150 U/L [facility] Total Bilirubin 0.4Comment: Specimen 0.2 - 1.2 mg/dL [facility] hemolyzed [facility] Sodium 133 (L) 136 - 145 meq/L [facility] Potassium 4.5Comment: Specimen 3.5 - 5.1 meq/L [facility] hemolyzed [facility] Chloride 108 (H) 98 - 107 meq/L [facility] CO2 15 (L) 22 - 29 meq/L [facility] BUN 12 7 - 21 mg/dL [facility] Creatinine 0.61Comment: Specimen 0.57 - 1.25 mg/dL [facility] hemolyzed [facility] Glucose 92 70 - 105 mg/dL [facility] Calcium 8.3 (L) 8.4 - 10.2 mg/dL [facility] AST 35 (H)Comment: Specimen 5 - 34 U/L [facility] hemolyzed [facility] ALT 14Comment: Specimen 6 - 55 U/L [facility] hemolyzed [facility] EGFR 133Comment: ESTIMATED mL/min/1.73 sq m [facility] GFR IS NOT ACCURATE [facility] CREATININE CLEARANCE IN PREDICTING GLOMERULAR FILTRATION RATE. ESTIMATED GFR IS NOT APPLICABLE FOR DIALYSIS PATIENTS. Specimen Blood Performing Organization Address City/[facility]/Zipcode Phone Number [facility] [address] [place] [address] [place] Urinalysis w/ Microscopic (06/10/2018 11:37 PM CDT) Color, UA Yellow [facility] Clarity, UA Hazy [facility] Specific [place], UA 1.012 1.001 - 1.035 [facility] pH, UA 8.0 5.0 - 8.0 [facility] Protein, UA 50 mg/dL (A) Negative [facility] Glucose, UA Negative Negative [facility] Ketones, UA Negative Negative [facility] Bilirubin, UA Negative Negative [facility] Blood, UA Moderate (A) Negative [facility] Nitrite, UA Positive (A) Negative [facility] Leukocytes, UA Large (A) Negative [facility] Urobilinogen, UA 0.2 0.2 - 1.0 mg/dL [facility] RBC, UA 6 /HPF [facility] WBC, UA 10 /HPF [facility] Bacteria, UA Many [facility] Mucus Many [facility] Crystals, Urine Occasional [facility] Specimen Source Urine, Urostomy [facility] Specimen Urine - Urine, Urostomy Performing Organization Address City/[facility]/Zipcode Phone Number [facility] [address] [place] [address] [phone] CENTER after 01/29/2018 Insurance Payer Benefit Plan / Group Subscriber ID Type Phone Address MEDICARE MEDICARE A B xxxxxxxxxxx Medicare MEDICAID - MEDICAID MEDICAID [employer] xxxxxxxxx Medicaid MGD CARE Non-Contracted ([place]) [address] [place] [address] Advance Directives For more information, please contact:[address] [phone] Code Status Date Activated Date Inactivated Comments Full Code 06/24/2018 12:08 PM This code status was determined by: Patient Full Code 06/10/2018 10:09 PM 06/13/2018 4:34 PM This code status was determined by: Patient
--- OUTSIDE RECORDS SUMMARY | 2019-01-30 15:17 | XMS REPORT | Continuity of Care Document ---
[...] [facility] [place] Constipation Active Finding 10/08/[address] [facility] [place] Asthma Active Finding 10/08/[address] [facility] [place] Hypokalemia Active Finding 10/08/[address] [facility] [place] Hypomagnesemia Active Finding 10/08/[address] [facility] [address] [facility] [place] Urinary tract Active Finding 10/08/2017 [facility]. infection [facility] [place] detention current Active Finding 10/08/2017 [facility] use of [facility] anticoagulant [place] therapy History of Active Finding 10/08/2017 [facility]. ureterostomy [facility] [place] Ileostomy present Active Finding 10/08/2017 [facility]. [facility] [place] Medications Medication Details Route Status Patient Ordering Order Source Instructions Provider Date Ferrous Sulfate TWICE DAILY Active Prezas [facility] 2018 [facility] [place] Metoprolol DAILY AT Active Prezas [facility]. Tartrate 0600 2017 [facility] [place] Magnesium Oxide TWICE DAILY Active Prezas [facility]. 2018 [facility] [place] Amlodipine DAILY Active Prezas [facility] 2018 [facility] [place] Rivaroxaban DAILY Active Prezas [facility] 2018 [facility] [place] Sertraline DAILY Active Prezas [facility] 2018 [facility] [place] Pantoprazole DAILY Active Prezas [facility] 2018 [facility] [place] Rivaroxaban DAILY Active [facility] 2018 [facility] [place] Lorazepam TWICE DAILY Active [facility] PRN For 2015 [facility] Anxiety [place] Ciprofloxacin Hcl DAILY Active [facility] 03/16/ [facility] 2015 [facility] [place] Hydrocodone Q6H PRN For Active [facility] 03/16/ [facility] 10/Apap 325 Pain 2015 [facility] [place] Docusate TWICE DAILY Active [place] 03/11/ [facility] 2015 [facility] [place] Yash TWICE DAILY Active [place] 03/11/ [facility] 2015 [facility] [place] Fluconazole DAILY PRN Active [facility] St[facility] For YEAST 2014 [facility] INFECTION [...] [place] vancomycin Itching/H Mild Allergy to Active [facility] tristan/Rash Substance 8 [facility] [place] Immunizations Immunization Date Given Site Status Last Comments Source Updated Pneumovax 11/10/2012 completed [facility] [place] Results Order Name Results Value Reference Date Interpretation Comments Source Range Laboratory Sodium Level 138 mEq/L 135 - 145 10/08 [facility] [address] Studies /2018 [facility] [place] Laboratory Potassium 3.3 mEq/L 3.6 - 5.0 10/08 [facility] [address] Studies Level /2018 [facility] [place] Laboratory Magnesium 1.6 mg/dL 1.8 - 2.5 10/08 [facility] Studies Level /2017 [facility] [place] Laboratory Glucose Level 91 mg/dL 65 - 120 10/08 [facility] Studies /2017 [facility] [place] Laboratory Estimat null 90 10/08 [facility] Studies Glomerular /2017 [facility] Filtration [place] Rate Laboratory Creatinine 0.42 mg/dL 0.44 - 10/08 [facility] Studies 1.00 [facility] [place] Laboratory Chloride 104 mEq/L 101 - 111 10/08 [facility]. Studies Level /2018 [facility] [place] Laboratory Carbon 24 mEq/L 21 - 31 10/08 [facility] Studies Dioxide Level /2017 [facility] [place] Laboratory Calcium Level 8.6 mg/dL 8.5 - 10.5 10/08 [facility]. Studies /2018 [facility] [place] Laboratory Blood Urea 9 mg/dL 6 - 20 10/08 [facility] Studies Nitrogen /2017 [facility] [place] Laboratory White Blood 8.9 K/uL 4.3 - 10.9 10/08 [facility]. Studies Count /2018 [facility] [place] Laboratory Red Cell 17.7 % 12.1 - 02 [facility]. Studies Distribution 15.2 /2017 [facility] Width [place] Laboratory Red Blood 4.41 M/uL 3.86 - 02 [facility] Studies Count 4.86 /2017 [facility] [place] Laboratory Platelet 443 K/uL 152 - 406 10/08 [facility]. Studies Count /2018 [facility] [place] Laboratory Neutrophils % 57.5 % 41.7 - 02 [facility]. Studies 73.7 /2017 [facility] [place] Laboratory Monocytes % 12.3 % 3.3 - 12.3 10/08 [facility] [address] Studies /2017 [facility] [place] Laboratory Mean Platelet 6.6 fL 7.6 - 11.3 10/08 [facility] [address] Studies Volume /2017 [facility] [place] Laboratory Mean 73.1 fL 80 - 100 10/08 [facility] [address] Studies Corpuscular /2017 [facility] Volume [place] Laboratory Mean 31.5 g/dL 32.0 - 02 [facility] [address] Studies Corpuscular 36.0 /2017 [facility] Hemoglobin [place] [facility] Laboratory Mean 23.0 pg 27.0 - 02 [facility]. Studies Corpuscular 35.0 /2017 [facility] Hemoglobin [place] Laboratory Lymphocytes % 26.3 % 15.3 - 02 [facility] [address] Studies 44.8 /2017 [facility] [place] Laboratory Hemoglobin 10.1 g/dL 12.0 - 10/08 [facility] [address] Studies 15.0 [facility] [place] Laboratory Hematocrit 32.2 % 36.0 - 02 [facility] [address] Studies 45.0 [facility] [place] Laboratory Eosinophils % 2.7 % 0 - 4.4 10/08 [facility] [address] Studies [facility] [place] [facility] Basophils % 1.2 % 0 - 1.3 10/08 [facility] [address] Studies [facility] [place] Laboratory Absolute 5.1 K/uL 1.8 - 8.0 10/08 [facility] [address] Studies Neutrophil [facility] [place] Laboratory Absolute 1.1 K/uL 0.1 - 1.3 10/08 [facility]. Studies Monocytes [facility] (CBC) [place] Laboratory Absolute 2.3 K/uL 0.7 - 4.9 10/08 [facility] [address] Studies Lymphocytes [facility] (CBC) [place] Laboratory Absolute 0.2 K/uL 0 - 0.5 10/08 [facility] [address] Studies Eosinophils [facility] (CBC) [place] Laboratory Absolute 0.1 K/uL 0 - 0.5 10/08 [facility]. Studies Basophils [facility] (CBC) [place] Laboratory Urine Yeast Urine Yeast 10/07 [facility] [address] Studies [facility] [place] Laboratory Urine WBC null 10/07 [facility] [address] Studies [facility] [place] Laboratory Urine [...] 10/07 St. Studies Specific /2017 [facility] [place] Laboratory Urine Nitrite Urine 10/07 St. [...] Iron 336 ug/dL 250 - 460 10/07 [facility] [address] Studies Binding /2017 [facility] Capacity [place] Laboratory Iron Level 31.0 ug/dL 28 - 170 10/07 St. Studies /2017 [facility] [place] Laboratory Ferritin 10.3 ng/ml 11.0 - 02 [facility] Studies 306.8 /2017 [employer] - [place] Laboratory Segmented 67 % 40 - 80 10/05 [facility] Studies Neutrophils /2017 [employer] - [place] Laboratory Monocytes 1 % 0 - 10 10/05 [facility]. Studies [employer] - [place] Laboratory Lymphocytes 29 % 15 - 42 10/05 [facility]. Studies /2017 [employer] - [place] Laboratory Eosinophils 3 % 0 - 3 10/05 [facility]. Studies [facility] [place] Laboratory Clumped Clumped 10/05 [facility] Studies Platelets Platelets [employer] - [facility] Laboratory Blood Blood 10/05 [facility] Studies Morphology Morphology [employer] - Comment Comment [place] Laboratory Urine Urine 10/02 [facility] Studies Phencyclidine Phencyclidi [facility] - Screen ne Screen [place] Laboratory Urine Urine 10/02 [facility] Studies Barbiturates Barbiturate /2017 [facility] - Screen s Screen [place] Laboratory Ur Ur 10/02 [facility] Studies Tetrahydrocan Tetrahydroc [employer] - nabinol (THC) annabinol [place] Scrn (THC) Scrn Laboratory Oxycodone Oxycodone 10/02 [facility] Studies Screen Screen /2017 [employer] - [place] Laboratory Opiates Opiates 10/02 [facility] Studies Screen Screen /2017 [employer] - [facility] Laboratory MDMA MDMA 10/02 [facility] Studies (Ecstasy) (Ecstasy) [facility] - Screen Screen [place] Laboratory Cocaine Cocaine 10/02 [facility] Studies Screen Screen /2017 [employer] - [place] Laboratory Benzodiazepin Benzodiazep 10/02 [facility] Studies es Screen brian Screen [employer] - [place] Laboratory Amphetamines Amphetamine 10/02 [facility] Studies Screen s Screen [employer] - [place] Laboratory Total 0.7 mg/dL 0.3 - 1.2 10/01 [facility] Studies Bilirubin [employer] - [facility] Laboratory Serum Total 7.4 g/dL 6.0 - 8.3 10/01 [facility] Studies Protein /2017 [employer] - [facility] Laboratory Globulin 3.6 g/dL 2.3 - 3.5 10/01 [facility] [address] Studies [employer] - [place] Laboratory Aspartate 27 IU/L 10 [...] Alanine 17 IU/L 10 - 60 10/01 [facility] [address] Studies Aminotransfer [facility] ase [place] [...] Creatine 30 IU/L 22 - 269 08/28 [facility] [address] Studies Kinase [facility] [place] Laboratory Rapid null 08/28 [facility] [address] Studies Troponin I /2016 [facility] [place] Laboratory Prothrombin 13.7 9.5 - 12.5 08/[address] [facility] [address] Studies Time SECONDS [facility] [place] Laboratory INR 1.16 08/28 [facility] [address] Studies International /2016 [facility] Normalized [place] Ratio Laboratory Activated 26.6 24.3 - 08/28 [facility] [address] Studies Partial SECONDS 36.9 [facility] - Thromboplast [place] Time Laboratory Lactic Acid 7.5 mg/dL 4.5 - 19.8 08/28 [facility] [address] Studies Level /2016 [facility] [place] Microbiolog Klebsiella Klebsiella 07/[address] [facility] Studies Pneumoniae Pneumoniae [facility] [place] Microbiolog Enterococcus Enterococcu 07/18 [facility] [address] y Studies Faecalis s Faecalis [facility] [place] Laboratory Urine Triple Urine 07/11 [facility] [address] Studies Phosphate Triple [facility] - Crystals Phosphate [place] Crystals Laboratory Amylase Level 170 U/L 28 - 100 07/11 [facility] [address] Studies /2016 [facility] [place] Vital Signs Vital Sign Value Date Comments Source Height 60 10/08/[address] [facility] [address] [place] - [place] Weight 158 10/08/2017 [facility] [place] Temperature Oral (F) 97.1 F 10/08/[address] [facility] [address] [place] Heart Rate 102 10/08/[address] [facility] [address] [place] Respitory Rate 17 10/08/[address] [facility] [address] [place] Systolic (mm Hg) 125 10/08/[address] [facility] [place] Diastolic (mm Hg) 78 10/08/[address] [facility] [address] [facility] [place] Encounters Location Location Encounter Encounter Reason Attending ADM DC Status Source Details Type Number For Provider Date Date Visit [facility] Departed [id number] 07/11 07/[address] [facility] [place] [facility] Departed [id number] 07/30 07/[address] [facility] [place] [facility] Departed [id number] 08/28 08/[address] [facility] [place] [facility] Departed [id number] 09/23 09/[address] [facility] [place] [facility] [id number] 10/01 10/[address] [facility] [place] Procedures Procedure Code Date Perfomer Comments Source [place] Count [id number] [address] [facility] [place] [id number] [address] [facility] [place] Stone Protocol [id number] 09/29/[address] [facility] [address] [place] - [place] Count [id number] 09/23/[address] [facility] [place] [id number] 09/23/[address] [facility] [place] Culture & [id number] 09/23/[address] [facility] Sensitivity [place] Abdomen & Pelvis [id number] 09/23/[address] [facility] W Contrast [place] Anaerobic Blood [id number] 08/28/[address] [facility] [address] Culture [place] Aerobic Blood [id number] 08/28/[address] [facility] Culture [place] Count [id number] 08/28/[address] [facility] [place] [id number] 08/28/[address] [facility] [place] Chest Single View [id number] 08/28/[address] [facility] [place] Influenza Type B 08/28/[address] [facility] - Antigen Screen [place] Influenza Type A 08/28/[address] [facility] [address] Antigen Screen [place] Influenza Type B 07/30/[address] [facility] Antigen Screen [place] Influenza Type A 07/30/[address] [facility] Antigen Screen [place] Count [id number] 07/11/[address] [facility] [place] [id number] 07/11/[address] [facility] [address] [place]
--- OUTSIDE RECORDS SUMMARY | 2019-01-30 15:18 | XMS REPORT ---
:1980 [facility] [address] [place] [address] Dr. Ha[address] [place] [address] Care Team Providers Name Role Phone DILMA LOMBARDI WAQAR Unavailable Unavailable DANGELO VERMA MABEL Unavailable Unavailable Problems This patient has no known problems. Allergies, Adverse Reactions, Alerts This patient has no known allergies or adverse reactions. Medications This patient has no known medications. Encounters Start End Encounter Admission Attending Care Care Encounter Date/Time Date/Time Type Type Clinicians Facility Department ID 2018-12-13 Inpatient U [facility]RO [id number] 17:12:36 2019-01-22 2019-01-22 Outpatient E [facility] MED [id number] 05:46:00 05:46:00 2019-01-12 2019-01-12 Outpatient [facility] [id number] 17:47:00 17:47:00 2019-01-06 2019-01-06 Outpatient [facility] [id number] 10:09:00 10:09:00 2018-12-14 2018-12-13 Inpatient E [facility] [id number] 03:28:00 19:10:00 Results Test Description Test Time Test Comments Text Results Atomic Results Result Comments SURGICALLY OBTAINED CULTURE + GRAM STAIN 2018-07-03 12:12:00 Test Item Value Reference Range Comments CULTURE (BEAKER) (test ENTEROCOCCUS SPECIES 2+ Enterococcus rrlb=3338) species Ampicillin (test code=26) Linezolid (test code=40) Tetracycline (test code=2) Vancomycin (test code=13) CULTURE (BEAKER) (test 1+ Katie albicans gyfz=1627) CULTURE (BEAKER) (test KLEBSIELLA 1+ Klebsiella kpgg=3990) PNEUMONIAE SSP pneumoniae ssp PNEUMONIAE pneumoniae Amikacin (test code=1) Ampicillin + Sulbactam (test code=6) Aztreonam (test code=32) Cefepime (test code=51) Cefoxitin (test code=68) Ceftazidime (test code=27) Ceftriaxone (test code=52) Ertapenem (test code=38) Gentamicin (test code=18) Levofloxacin (test code=22) Meropenem (test code=34) Nitrofurantoin (test code=23) Piperacillin + Tazobactam (test code=29) Tetracycline (test code=2) Tobramycin (test code=25) Trimethoprim + Sulfamethoxazole (test code=47) CULTURE (Hangar SevenAKER) (test VANCOMYCIN RESISTANT 1+ Vancomycin lngm=1038) ENTEROCOCCUS SPECIES resistant Enterococcus species Ampicillin (test code=26) Linezolid (test code=40) Vancomycin (test code=13) Daptomycin (test Susceptible 0-4 , No code=59) Interpretations Established <0 or >4 ANAEROBIC [id number] 05:31:00 Test Item Value Reference Range Comments CULTURE (Hangar SevenAKER) (test byut=3156) No anaerobes isolated URINE [id number] 11:06:00 Test Item Value Reference Range Comments CULTURE (BEAKER) (test 20-29,000 col/mL pzqq=7892) Katie parapsilosis CULTURE (BEAKER) (test PSEUDOMONAS 20-29,000 col/mL erlx=4480) AERUGINOSA Pseudomonas aeruginosa Amikacin (test code=1) Susceptible [...] , code=25) Resistant <0 or >4 URINE [id number] 11:03:00 Test Item Value Reference Range Comments CULTURE (BEAKER) (test ENTEROCOCCUS SPECIES >100,000 col/mL tghx=1301) Enterococcus species Ampicillin (test code=26) Linezolid (test code=40) Nitrofurantoin (test code=23) Tetracycline (test code=2) Vancomycin (test code=13) CULTURE (BEAKER) (test ESCHERICHIA COLI 50-59,000 col/mL dqnu=6429) Escherichia coli Amikacin (test code=1) Ampicillin + Sulbactam (test code=6) Aztreonam (test code=32) Cefepime (test code=51) Cefoxitin (test code=68) Ceftazidime (test code=27) Ceftriaxone (test code=52) Ertapenem (test code=38) Gentamicin (test code=18) Levofloxacin (test code=22) Meropenem (test code=34) Nitrofurantoin (test code=23) Piperacillin + Tazobactam (test code=29) Tetracycline (test code=2) Tobramycin (test code=25) Trimethoprim + Sulfamethoxazole (test code=47) CULTURE (BEAKER) (test ENTEROBACTER CLOACAE 50-59,000 col/mL xmfb=0255) COMPLEX Enterobacter cloacae complex Amikacin (test code=1) Aztreonam (test code=32) Cefepime (test code=51) Cefoxitin (test code=68) Ceftazidime (test code=27) Ceftriaxone (test code=52) Ertapenem (test code=38) Gentamicin (test code=18) Levofloxacin (test code=22) Meropenem (test code=34) Nitrofurantoin (test code=23) Piperacillin + Tazobactam (test code=29) Tetracycline (test code=2) Tobramycin (test code=25) Trimethoprim + Sulfamethoxazole (test code=47) Dr. lopez request for avycaz and zerbaxaCT, [id number] 07:41:00FINAL REPORT INDICATION:37-year-old female status post recent [...] Verified Date/Time : 06/29/2018 07:41:57 Reading Location: [facility] Diagnostic Imaging Reading Room - [place] [address] Electronically signed by: FREDERICK BOYD M.D. on 2017 07:41 AMCBC W/PLT COUNT & AUTO [id number] 07:07:00 Test Item Value Reference Range Comments WHITE BLOOD CELL COUNT 9.2 K/ L 3.5-10.5 (BEAKER) (test mhxh=629) RED BLOOD CELL COUNT (BEAKER) 4.41 M/ L 3.93-5.22 (test ljby=682) HEMOGLOBIN (BEAKER) (test 10.1 GM/DL 11.2-15.7 qyor=491) HEMATOCRIT (BEAKER) (test 33.7 % 34.1-44.9 caci=479) MEAN CORPUSCULAR VOLUME 76.4 fL 79.4-94.8 (BEAKER) (test nbuo=947) MEAN CORPUSCULAR HEMOGLOBIN 22.9 pg 25.6-32.2 (BEAKER) (test aios=055) MEAN CORPUSCULAR HEMOGLOBIN 30.0 GM/DL 32.2-35.5 CONC (BEAKER) (test bgbw=249) RED CELL DISTRIBUTION WIDTH 21.2 % 11.7-14.4 (BEAKER) (test esrr=356) PLATELET COUNT (BEAKER) (test 51 K/CU MM 150-450 rnmf=542) MEAN PLATELET VOLUME (BEAKER) fL 9.4-12.3 Unable to report due to (test cbey=871) abnormal Platelet population distribution. NUCLEATED RED BLOOD CELLS 0 /100 WBC 0-0 (BEAKER) (test tgoz=417) NEUTROPHILS RELATIVE PERCENT 71 % (BEAKER) (test rxgv=843) LYMPHOCYTES RELATIVE PERCENT 17 % (BEAKER) (test ibqy=050) MONOCYTES RELATIVE PERCENT 10 % (BEAKER) (test amac=281) EOSINOPHILS RELATIVE PERCENT 1 % (BEAKER) (test dqud=705) BASOPHILS RELATIVE PERCENT 0 % (BEAKER) (test etxg=813) NEUTROPHILS ABSOLUTE COUNT 6.59 K/ L 1.56-6.13 (BEAKER) (test yrwg=468) LYMPHOCYTES ABSOLUTE COUNT 1.59 K/ L 1.18-3.74 (BEAKER) (test gjia=615) MONOCYTES ABSOLUTE COUNT 0.91 K/ L 0.24-0.36 (BEAKER) (test garf=494) EOSINOPHILS ABSOLUTE COUNT 0.07 K/ L 0.04-0.36 (BEAKER) (test bfbt=277) BASOPHILS ABSOLUTE COUNT 0.03 K/ L 0.01-0.08 (BEAKER) (test rlsj=786) IMMATURE GRANULOCYTES-RELATIVE 0 % 0-1 PERCENT (BEAKER) (test nunx=7585) BASIC METABOLIC [id number] 06:01:00 Test Item Value Reference Range Comments SODIUM (BEAKER) (test 137 meq/L 136-145 coub=965) POTASSIUM (BEAKER) (test 3.7 meq/L 3.5-5.1 gsab=404) CHLORIDE (BEAKER) (test 112 meq/L 98-107 wuhp=879) CO2 (BEAKER) (test 17 meq/L 22-29 fwai=378) BLOOD UREA NITROGEN 7 mg/dL 7-21 (BEAKER) (test iihx=882) CREATININE (BEAKER) (test 0.64 mg/dL 0.57-1.25 xubh=509) GLUCOSE RANDOM (BEAKER) 82 mg/dL 70-105 (test htaw=364) CALCIUM (BEAKER) (test 8.9 mg/dL 8.4-10.2 uhwe=385) EGFR (BEAKER) (test 126 mL/min/1.73 sq m ESTIMATED GFR IS NOT acxg=8944) ACCURATE CREATININE CLEARANCE IN PREDICTING GLOMERULAR FILTRATION RATE. ESTIMATED GFR IS NOT APPLICABLE FOR DIALYSIS PATIENTS. CBC W/PLT COUNT & AUTO [id number] 22:22:00 Test Item Value Reference Range Comments WHITE BLOOD CELL COUNT 8.0 K/ L 3.5-10.5 (BEAKER) (test epuc=296) RED BLOOD CELL COUNT (BEAKER) 4.53 M/ L 3.93-5.22 (test smjh=878) HEMOGLOBIN (BEAKER) (test 10.5 GM/DL 11.2-15.7 jdys=190) HEMATOCRIT (BEAKER) (test 35.1 % 34.1-44.9 rurd=714) MEAN CORPUSCULAR VOLUME 77.5 fL 79.4-94.8 (BEAKER) (test xdhp=700) MEAN CORPUSCULAR HEMOGLOBIN 23.2 pg 25.6-32.2 (BEAKER) (test jaut=581) MEAN CORPUSCULAR HEMOGLOBIN 29.9 GM/DL 32.2-35.5 CONC (BEAKER) (test spio=952) RED CELL DISTRIBUTION WIDTH 20.6 % 11.7-14.4 (BEAKER) (test hgjj=099) PLATELET COUNT (BEAKER) (test 97 K/CU MM 150-450 hfcz=218) MEAN PLATELET VOLUME (BEAKER) fL 9.4-12.3 Unable to report due to (test qcns=079) abnormal Platelet population distribution. NUCLEATED RED BLOOD CELLS 0 /100 WBC 0-0 (BEAKER) (test dhyy=812) NEUTROPHILS RELATIVE PERCENT 80 % (BEAKER) (test zoaj=746) LYMPHOCYTES RELATIVE PERCENT 16 % (BEAKER) (test lumj=136) MONOCYTES RELATIVE PERCENT 4 % (BEAKER) (test gupq=140) EOSINOPHILS RELATIVE PERCENT 0 % (BEAKER) (test zswy=007) BASOPHILS RELATIVE PERCENT 0 % (BEAKER) (test aevc=193) NEUTROPHILS ABSOLUTE COUNT 6.41 K/ L 1.56-6.13 (BEAKER) (test plrj=570) LYMPHOCYTES ABSOLUTE COUNT 1.24 K/ L 1.18-3.74 (BEAKER) (test qspd=659) MONOCYTES ABSOLUTE COUNT 0.32 K/ L 0.24-0.36 (BEAKER) (test tchq=096) EOSINOPHILS ABSOLUTE COUNT 0.00 K/ L 0.04-0.36 (BEAKER) (test lqso=153) BASOPHILS ABSOLUTE COUNT 0.01 K/ L 0.01-0.08 (BEAKER) (test xoml=233) IMMATURE GRANULOCYTES-RELATIVE 1 % 0-1 PERCENT (BEAKER) (test vepd=9490) BASIC METABOLIC [id number] 21:08:00 Test Item Value Reference Range Comments SODIUM (BEAKER) (test 135 meq/L 136-145 gdqg=426) POTASSIUM (BEAKER) (test 4.4 meq/L 3.5-5.1 jktb=109) CHLORIDE (BEAKER) (test 111 meq/L 98-107 zupz=364) CO2 (BEAKER) (test 15 meq/L 22-29 hrum=062) BLOOD UREA NITROGEN 7 mg/dL 7-21 (BEAKER) (test zutm=865) CREATININE (BEAKER) (test 0.62 mg/dL 0.57-1.25 pasi=463) GLUCOSE RANDOM (BEAKER) 95 mg/dL 70-105 (test jbll=852) CALCIUM (BEAKER) (test 8.9 mg/dL 8.4-10.2 robx=195) EGFR (BEAKER) (test 131 mL/min/1.73 sq m ESTIMATED GFR IS NOT euic=6257) ACCURATE CREATININE CLEARANCE IN PREDICTING GLOMERULAR FILTRATION RATE. ESTIMATED GFR IS NOT APPLICABLE FOR DIALYSIS PATIENTS. RAD, CHEST, 1 VIEW, NON [id number] 13:37:00Reason for exam:->eval for pneumothoraxReason for exam:->in [...] is present. No visualized fracture. Signed: Charanjit [place] MDReport Verified Date/Time: 13:37:49 Reading Location: [facility] Radiology Reading Room CBC W/PLT COUNT & amp; AUTO [id number] 09:50:00 Test Item Value Reference Range Comments WHITE BLOOD CELL COUNT 5.8 K/ L 3.5-10.5 (BEAKER) (test zavq=791) RED BLOOD CELL COUNT (BEAKER) 4.38 M/ L 3.93-5.22 (test pztq=914) HEMOGLOBIN (BEAKER) (test 10.3 GM/DL 11.2-15.7 ieyn=069) HEMATOCRIT (BEAKER) (test 33.7 % 34.1-44.9 vmcx=336) MEAN CORPUSCULAR VOLUME 76.9 fL 79.4-94.8 (BEAKER) (test kydg=265) MEAN CORPUSCULAR HEMOGLOBIN 23.5 pg 25.6-32.2 (BEAKER) (test vtdw=405) MEAN CORPUSCULAR HEMOGLOBIN 30.6 GM/DL 32.2-35.5 CONC (BEAKER) (test lceb=782) RED CELL DISTRIBUTION WIDTH 20.5 % 11.7-14.4 (BEAKER) (test ukkt=760) PLATELET COUNT (BEAKER) (test K/CU MM 150-450 Platelet clumps bmys=881) present;unable to report true count. Platelet count should be recollected using an EDTA and CITRATE(blue) tube. MEAN PLATELET VOLUME (BEAKER) fL 9.4-12.3 Unable to report due to (test tury=408) abnormal Platelet population distribution. NUCLEATED RED BLOOD CELLS 0 /100 WBC 0-0 (BEAKER) (test ddoy=428) NEUTROPHILS RELATIVE PERCENT 47 % (BEAKER) (test nspt=373) LYMPHOCYTES RELATIVE PERCENT 33 % (BEAKER) (test hjoc=943) MONOCYTES RELATIVE PERCENT 12 % (BEAKER) (test gmpr=453) EOSINOPHILS RELATIVE PERCENT 8 % (BEAKER) (test ekyc=230) BASOPHILS RELATIVE PERCENT 0 % (BEAKER) (test empn=077) NEUTROPHILS ABSOLUTE COUNT 2.70 K/ L 1.56-6.13 (BEAKER) (test etwq=379) LYMPHOCYTES ABSOLUTE COUNT 1.90 K/ L 1.18-3.74 (BEAKER) (test ylcb=483) MONOCYTES ABSOLUTE COUNT 0.66 K/ L 0.24-0.36 (BEAKER) (test bmhm=629) EOSINOPHILS ABSOLUTE COUNT 0.45 K/ L 0.04-0.36 (BEAKER) (test bftj=658) BASOPHILS ABSOLUTE COUNT 0.02 K/ L 0.01-0.08 (BEAKER) (test gyip=756) IMMATURE GRANULOCYTES-RELATIVE 0 % 0-1 PERCENT (BEAKER) (test tafw=8607) FL, PAROLE BOARD MEMBER IN OR/30 MINUTE [id number] 09:43:00Reason for exam:-> PCNLIs the patient ?->NoWhen [...] static images were acquired. Signed: Toni Pulido Verified Date/Time: 2017 09:43:00 Reading Location:[facility] Radiology Reading Room 09:43 AMBASIC METABOLIC [id number] 07:59:00 Test Item Value Reference Range Comments SODIUM (BEAKER) (test 135 meq/L 136-145 ioij=981) POTASSIUM (BEAKER) (test 4.2 meq/L 3.5-5.1 jugz=816) CHLORIDE (BEAKER) (test 110 meq/L 98-107 dkip=566) CO2 (BEAKER) (test 18 meq/L 22-29 qxbs=818) BLOOD UREA NITROGEN 7 mg/dL 7-21 (BEAKER) (test llvo=291) CREATININE (BEAKER) (test 0.63 mg/dL 0.57-1.25 oxnu=497) GLUCOSE RANDOM (BEAKER) 84 mg/dL 70-105 (test vqyt=573) CALCIUM (BEAKER) (test 8.6 mg/dL 8.4-10.2 gzws=643) EGFR (BEAKER) (test 128 mL/min/1.73 sq m ESTIMATED GFR IS NOT aqur=8413) ACCURATE CREATININE CLEARANCE IN PREDICTING GLOMERULAR FILTRATION RATE. ESTIMATED GFR IS NOT APPLICABLE FOR DIALYSIS PATIENTS. HEMOGLOBIN AND [id number] 14:41:00 Test Item Value Reference Range Comments HEMOGLOBIN (BEAKER) (test uawm=515) 6.5 GM/DL 11.2-15.7 HEMATOCRIT (BEAKER) (test ydub=810) 23.1 % 34.1-44.9 BASIC METABOLIC [id number] 08:36:00 Test Item Value Reference Range Comments SODIUM (BEAKER) (test 135 meq/L 136-145 jzsc=604) POTASSIUM (BEAKER) (test 4.1 meq/L 3.5-5.1 qjzr=030) CHLORIDE (BEAKER) (test 111 meq/L 98-107 youb=414) CO2 (BEAKER) (test 18 meq/L 22-29 qvnb=993) BLOOD UREA NITROGEN 8 mg/dL 7-21 (BEAKER) (test nacc=567) CREATININE (BEAKER) (test 0.61 mg/dL 0.57-1.25 yejf=752) GLUCOSE RANDOM (BEAKER) 75 mg/dL 70-105 (test faxk=781) CALCIUM (BEAKER) (test 8.4 mg/dL 8.4-10.2 wuju=552) EGFR (BEAKER) (test 133 mL/min/1.73 sq m ESTIMATED GFR IS NOT kisr=4500) ACCURATE CREATININE CLEARANCE IN PREDICTING GLOMERULAR FILTRATION RATE. ESTIMATED GFR IS NOT APPLICABLE FOR DIALYSIS PATIENTS. CBC W/PLT COUNT & AUTO [id number] 05:49:00 Test Item Value Reference Range Comments WHITE BLOOD CELL COUNT (BEAKER) (test sxaq=733) 5.1 K/ L 3.5-10.5 RED BLOOD CELL COUNT (BEAKER) (test bgpj=753) 3.14 M/ L 3.93-5.22 HEMOGLOBIN (BEAKER) (test eaba=508) 6.3 GM/DL 11.2-15.7 HEMATOCRIT (BEAKER) (test adqy=344) 22.8 % 34.1-44.9 MEAN CORPUSCULAR VOLUME (BEAKER) (test cpto=144) 72.6 fL 79.4-94.8 MEAN CORPUSCULAR HEMOGLOBIN (BEAKER) (test 20.1 pg 25.6-32.2 hpha=408) MEAN CORPUSCULAR HEMOGLOBIN CONC (BEAKER) (test 27.6 GM/DL 32.2-35.5 eooo=668) RED CELL DISTRIBUTION WIDTH (BEAKER) (test 20.5 % 11.7-14.4 tsay=863) PLATELET COUNT (BEAKER) (test fbwq=960) 426 K/CU MM 150-450 MEAN PLATELET VOLUME (BEAKER) (test ucdu=007) 10.9 fL 9.4-12.3 NUCLEATED RED BLOOD CELLS (BEAKER) (test 0 /100 WBC 0-0 fras=144) NEUTROPHILS RELATIVE PERCENT (BEAKER) (test 47 % nvwb=432) LYMPHOCYTES RELATIVE PERCENT (BEAKER) (test 30 % ihcy=438) MONOCYTES RELATIVE PERCENT (BEAKER) (test 13 % dgpr=011) EOSINOPHILS RELATIVE PERCENT (BEAKER) (test 10 % tjko=078) BASOPHILS RELATIVE PERCENT (BEAKER) (test 0 % onuv=598) NEUTROPHILS ABSOLUTE COUNT (BEAKER) (test 2.35 K/ L 1.56-6.13 psvk=751) LYMPHOCYTES ABSOLUTE COUNT (BEAKER) (test 1.53 K/ L 1.18-3.74 wnyl=687) MONOCYTES ABSOLUTE COUNT (BEAKER) (test 0.67 K/ L 0.24-0.36 ytbk=005) EOSINOPHILS ABSOLUTE COUNT (BEAKER) (test 0.48 K/ L 0.04-0.36 wefl=624) BASOPHILS ABSOLUTE COUNT (BEAKER) (test 0.01 K/ L 0.01-0.08 seuo=476) IMMATURE GRANULOCYTES-RELATIVE PERCENT (BEAKER) 0 % 0-1 (test mumb=2527) HEMOGLOBIN AND [id number] 14:34:00 Test Item Value Reference Range Comments HEMOGLOBIN (BEAKER) (test esof=412) 7.0 GM/DL 11.2-15.7 HEMATOCRIT (BEAKER) (test aiez=960) 24.7 % 34.1-44.9 CBC W/PLT COUNT & AUTO [id number] 10:55:00 Test Item Value Reference Range Comments WHITE BLOOD CELL COUNT 6.0 K/ L 3.5-10.5 (BEAKER) (test crke=087) RED BLOOD CELL COUNT (BEAKER) 3.59 M/ L 3.93-5.22 (test cdgh=875) HEMOGLOBIN (BEAKER) (test 7.3 GM/DL 11.2-15.7 qkvn=280) HEMATOCRIT (BEAKER) (test 25.9 % 34.1-44.9 sdyg=195) MEAN CORPUSCULAR VOLUME 72.1 fL 79.4-94.8 (BEAKER) (test wulf=560) MEAN CORPUSCULAR HEMOGLOBIN 20.3 pg 25.6-32.2 (BEAKER) (test ugkw=876) MEAN CORPUSCULAR HEMOGLOBIN 28.2 GM/DL 32.2-35.5 CONC (BEAKER) (test bgpn=798) RED CELL DISTRIBUTION WIDTH 20.2 % 11.7-14.4 (BEAKER) (test nqgq=620) PLATELET COUNT (BEAKER) (test 592 K/CU MM 150-450 Platelets count from wuik=035) citrated tube. MEAN PLATELET VOLUME (BEAKER) 9.4 fL 9.4-12.3 (test jwiu=687) NUCLEATED RED BLOOD CELLS 0 /100 WBC 0-0 (BEAKER) (test abcb=193) NEUTROPHILS RELATIVE PERCENT 56 % (BEAKER) (test awzy=642) LYMPHOCYTES RELATIVE PERCENT 26 % (BEAKER) (test twtb=885) MONOCYTES RELATIVE PERCENT 10 % (BEAKER) (test gssw=555) EOSINOPHILS RELATIVE PERCENT 8 % (BEAKER) (test nmph=375) BASOPHILS RELATIVE PERCENT 0 % (BEAKER) (test tdsk=743) NEUTROPHILS ABSOLUTE COUNT 3.35 K/ L 1.56-6.13 (BEAKER) (test sctv=480) LYMPHOCYTES ABSOLUTE COUNT 1.53 K/ L 1.18-3.74 (BEAKER) (test hnlw=864) MONOCYTES ABSOLUTE COUNT 0.60 K/ L 0.24-0.36 (BEAKER) (test isrn=710) EOSINOPHILS ABSOLUTE COUNT 0.47 K/ L 0.04-0.36 (BEAKER) (test akkk=965) BASOPHILS ABSOLUTE COUNT 0.02 K/ L 0.01-0.08 (BEAKER) (test svmu=128) IMMATURE GRANULOCYTES-RELATIVE 0 % 0-1 PERCENT (BEAKER) (test zxdu=6328) BASIC METABOLIC [id number] 06:21:00 Test Item Value Reference Range Comments SODIUM (BEAKER) (test 138 meq/L 136-145 help=736) POTASSIUM (BEAKER) (test 4.6 meq/L 3.5-5.1 Specimen slightly bgkq=288) hemolyzed CHLORIDE (BEAKER) (test 114 meq/L 98-107 rxez=002) CO2 (BEAKER) (test 15 meq/L 22-29 oual=674) BLOOD UREA NITROGEN 9 mg/dL 7-21 (BEAKER) (test yvok=812) CREATININE (BEAKER) (test 0.67 mg/dL 0.57-1.25 Specimen slightly wrhw=068) hemolyzed GLUCOSE RANDOM (BEAKER) 81 mg/dL 70-105 (test ltgi=562) CALCIUM (BEAKER) (test 8.6 mg/dL 8.4-10.2 zmmy=094) EGFR (BEAKER) (test 119 mL/min/1.73 sq m ESTIMATED GFR IS NOT azga=3695) ACCURATE CREATININE CLEARANCE IN PREDICTING GLOMERULAR FILTRATION RATE. ESTIMATED GFR IS NOT APPLICABLE FOR DIALYSIS PATIENTS. CBC W/PLT COUNT & AUTO [id number] 14:39:00 Test Item Value Reference Range Comments WHITE BLOOD CELL COUNT 5.3 K/ L 3.5-10.5 (BEAKER) (test ukbj=292) RED BLOOD CELL COUNT (BEAKER) 3.55 M/ L 3.93-5.22 (test btvq=644) HEMOGLOBIN (BEAKER) (test 7.3 GM/DL 11.2-15.7 zutb=983) HEMATOCRIT (BEAKER) (test 25.9 % 34.1-44.9 cbuz=026) MEAN CORPUSCULAR VOLUME 73.0 fL 79.4-94.8 (BEAKER) (test ngwd=903) MEAN CORPUSCULAR HEMOGLOBIN 20.6 pg 25.6-32.2 (BEAKER) (test qgqk=627) MEAN CORPUSCULAR HEMOGLOBIN 28.2 GM/DL 32.2-35.5 CONC (BEAKER) (test vjaw=764) RED CELL DISTRIBUTION WIDTH 20.3 % 11.7-14.4 (BEAKER) (test znpf=695) PLATELET COUNT (BEAKER) (test 554 K/CU MM 150-450 Platelet Clumps present. kaia=226) Unable to report true count on Purple top. Platelet Count using citrate tube MEAN PLATELET VOLUME (BEAKER) fL 9.4-12.3 Unable to report due to (test pokt=031) abnormal Platelet population distribution. NUCLEATED RED BLOOD CELLS 0 /100 WBC 0-0 (BEAKER) (test hbfv=623) NEUTROPHILS RELATIVE PERCENT 61 % (BEAKER) (test dvkn=390) LYMPHOCYTES RELATIVE PERCENT 25 % (BEAKER) (test oyfa=475) MONOCYTES RELATIVE PERCENT 8 % (BEAKER) (test tkfh=199) EOSINOPHILS RELATIVE PERCENT 6 % (BEAKER) (test spxz=108) BASOPHILS RELATIVE PERCENT 0 % (BEAKER) (test gahz=742) NEUTROPHILS ABSOLUTE COUNT 3.25 K/ L 1.56-6.13 (BEAKER) (test brvr=315) LYMPHOCYTES ABSOLUTE COUNT 1.32 K/ L 1.18-3.74 (BEAKER) (test qkvk=189) MONOCYTES ABSOLUTE COUNT 0.40 K/ L 0.24-0.36 (BEAKER) (test owii=293) EOSINOPHILS ABSOLUTE COUNT 0.34 K/ L 0.04-0.36 (BEAKER) (test plzd=337) BASOPHILS ABSOLUTE COUNT 0.01 K/ L 0.01-0.08 (BEAKER) (test fmcf=389) IMMATURE GRANULOCYTES-RELATIVE 0 % 0-1 PERCENT (BEAKER) (test dlrw=1681) RAD, CHEST, 1 VIEW, NON [id number] 10:16:00Reason for exam:->Post Power PICC insertion RUE for tip verificationShould this be performed at the bedside?- >YesFINAL REPORT AP chest HISTORY: PICC placement COMPARISON: None IMPRESSION:Right arm PICC present with tip at upper SVC. SVC filter present. Left-sided [employer] HEARING AIDS shunt. Grossly normal cardiac silhouette. Right lung clear. Moderate left effusion. Signed: Satish Kerreport VerifiedDate/Time: 06/25/2018 10:16:18 Reading Location: [facility] [id number] Ortho Consult Reading Room BASIC METABOLIC [id number] 09:58:00 Test Item Value Reference Range Comments SODIUM (BEAKER) (test 136 meq/L 136-145 jowk=766) POTASSIUM (BEAKER) (test 4.4 meq/L 3.5-5.1 Specimen slightly shtl=639) hemolyzed CHLORIDE (BEAKER) (test 107 meq/L 98-107 vyjq=241) CO2 (BEAKER) (test 23 meq/L 22-29 znxs=572) BLOOD UREA NITROGEN 11 mg/dL 7-21 (BEAKER) (test gxnw=981) CREATININE (BEAKER) (test 0.68 mg/dL 0.57-1.25 Specimen slightly najr=382) hemolyzed GLUCOSE RANDOM (BEAKER) 92 mg/dL 70-105 (test jnas=304) CALCIUM (BEAKER) (test 8.9 mg/dL 8.4-10.2 hzvh=710) EGFR (BEAKER) (test 117 mL/min/1.73 sq m ESTIMATED GFR IS NOT mgeu=2575) ACCURATE CREATININE CLEARANCE IN PREDICTING GLOMERULAR FILTRATION RATE. ESTIMATED GFR IS NOT APPLICABLE FOR DIALYSIS PATIENTS. CBC W/PLT COUNT & AUTO [id number] 13:38:00 Test Item Value Reference Range Comments WHITE BLOOD CELL COUNT 7.5 K/ L 3.5-10.5 (BEAKER) (test oumi=757) RED BLOOD CELL COUNT (BEAKER) 4.45 M/ L 3.93-5.22 (test sgfm=924) HEMOGLOBIN (BEAKER) (test 9.2 GM/DL 11.2-15.7 cjxi=022) HEMATOCRIT (BEAKER) (test 32.4 % 34.1-44.9 woma=194) MEAN CORPUSCULAR VOLUME 72.8 fL 79.4-94.8 (BEAKER) (test ircs=001) MEAN CORPUSCULAR HEMOGLOBIN 20.7 pg 25.6-32.2 (BEAKER) (test qaoe=723) MEAN CORPUSCULAR HEMOGLOBIN 28.4 GM/DL 32.2-35.5 CONC (BEAKER) (test unmg=158) RED CELL DISTRIBUTION WIDTH 20.6 % 11.7-14.4 (BEAKER) (test teta=472) PLATELET COUNT (BEAKER) (test 275 K/CU MM 150-450 aseh=487) MEAN PLATELET VOLUME (BEAKER) fL 9.4-12.3 Unable to report due to (test pmjy=700) abnormal Platelet population distribution. NUCLEATED RED BLOOD CELLS 0 /100 WBC 0-0 (BEAKER) (test blii=068) NEUTROPHILS RELATIVE PERCENT 65 % (BEAKER) (test vkxk=076) LYMPHOCYTES RELATIVE PERCENT 23 % (BEAKER) (test qhxd=855) MONOCYTES RELATIVE PERCENT 8 % (BEAKER) (test qrzp=453) EOSINOPHILS RELATIVE PERCENT 4 % (BEAKER) (test vmli=613) BASOPHILS RELATIVE PERCENT 0 % (BEAKER) (test hukg=873) NEUTROPHILS ABSOLUTE COUNT 4.86 K/ L 1.56-6.13 (BEAKER) (test svjg=462) LYMPHOCYTES ABSOLUTE COUNT 1.69 K/ L 1.18-3.74 (BEAKER) (test uvea=055) MONOCYTES ABSOLUTE COUNT 0.60 K/ L 0.24-0.36 (BEAKER) (test gdmw=104) EOSINOPHILS ABSOLUTE COUNT 0.30 K/ L 0.04-0.36 (BEAKER) (test vvyz=732) BASOPHILS ABSOLUTE COUNT 0.02 K/ L 0.01-0.08 (BEAKER) (test cmvr=263) IMMATURE GRANULOCYTES-RELATIVE 0 % 0-1 PERCENT (BEAKER) (test ibsh=0440) BASIC METABOLIC [id number] 13:03:00 Test Item Value Reference Range Comments SODIUM (BEAKER) (test 134 meq/L 136-145 trle=239) POTASSIUM (BEAKER) (test 4.3 meq/L 3.5-5.1 kvhf=170) CHLORIDE (BEAKER) (test 104 meq/L 98-107 yhjt=327) CO2 (BEAKER) (test 19 meq/L 22-29 vehg=786) BLOOD UREA NITROGEN 11 mg/dL 7-21 (BEAKER) (test mtji=824) CREATININE (BEAKER) (test 0.72 mg/dL 0.57-1.25 pneo=978) GLUCOSE RANDOM (BEAKER) 82 mg/dL 70-105 (test gnkn=863) CALCIUM (BEAKER) (test 9.7 mg/dL 8.4-10.2 qebx=923) EGFR (BEAKER) (test 110 mL/min/1.73 sq m ESTIMATED GFR IS NOT nlkk=2419) ACCURATE CREATININE CLEARANCE IN PREDICTING GLOMERULAR FILTRATION RATE. ESTIMATED GFR IS NOT APPLICABLE FOR DIALYSIS PATIENTS. BODY FLUID CULTURE + GRAM [id number] 16:53:00 Test Item Value Reference Range Comments CULTURE (BEAKER) (test ENTEROBACTER CLOACAE 2+ Enterobacter fxge=8524) COMPLEX cloacae complexESBL PositiveAmpC Positive Amikacin (test code=1) Aztreonam (test code=32) Cefepime (test code=51) Cefoxitin (test code=68) Ceftazidime (test code=27) Ceftriaxone (test code=52) Ertapenem (test code=38) Gentamicin (test code=18) Levofloxacin (test code=22) Meropenem (test code=34) Nitrofurantoin (test code=23) Piperacillin + Tazobactam (test code=29) Tetracycline (test code=2) Tobramycin (test code=25) Trimethoprim + Sulfamethoxazole (test code=47) CULTURE (BEAKER) (test ENTEROCOCCUS SPECIES 2+ Enterococcus dzzd=8842) species Ampicillin (test code=26) Linezolid (test code=40) Vancomycin (test code=13) CULTURE (BEAKER) (test 2+ Katie tbxx=2501) parapsilosis GRAM STAIN RESULT (BEAKER) No organisms seen (test xxwg=9742) GRAM STAIN RESULT (BEAKER) 1+ White blood cells (test pzsx=006507) seen URINE [id number] 10:14:00 Test Item Value Reference Range Comments CULTURE (BEAKER) (test ENTEROBACTER CLOACAE >100,000 col/mL svhn=2036) COMPLEX Enterobacter cloacae complex Amikacin (test code=1) Aztreonam (test code=32) Cefepime (test code=51) Cefoxitin (test code=68) Ceftazidime (test code=27) Ceftriaxone (test code=52) Gentamicin (test code=18) Levofloxacin (test code=22) Meropenem (test code=34) Nitrofurantoin (test code=23) Piperacillin + Tazobactam (test code=29) Tetracycline (test code=2) Tobramycin (test code=25) Trimethoprim + Sulfamethoxazole (test code=47) CULTURE (BEAKER) (test PSEUDOMONAS 30-39,000 col/mL erdb=0739) AERUGINOSA Pseudomonas aeruginosa Amikacin (test code=1) Susceptible [...] 0-4 , Resistant <0 or >4 CULTURE (Hangar SevenAKER) (test ENTEROCOCCUS SPECIES 50-59,000 col/mL lail=0456) Enterococcus species Ampicillin (test code=26) Linezolid (test code=40) Nitrofurantoin (test code=23) Tetracycline (test code=2) Vancomycin (test code=13) BLOOD [id number] 11:00:00 Test Item Value Reference Range Comments CULTURE (BEAKER) (test exdo=8154) No growth in 5 days BLOOD [id number] 06:00:00 Test Item Value Reference Range Comments CULTURE (BEAKER) (test ueyb=9005) No growth in 5 days BASIC METABOLIC [id number] 04:43:00 Test Item Value Reference Range Comments SODIUM (BEAKER) (test 141 meq/L 136-145 eeei=599) POTASSIUM (BEAKER) (test 3.7 meq/L 3.5-5.1 elmg=766) CHLORIDE (BEAKER) (test 112 meq/L 98-107 fuox=613) CO2 (BEAKER) (test 21 meq/L 22-29 ptcn=337) BLOOD UREA NITROGEN 12 mg/dL 7-21 (BEAKER) (test bqkt=808) CREATININE (BEAKER) (test 0.63 mg/dL 0.57-1.25 xmlx=565) GLUCOSE RANDOM (BEAKER) 83 mg/dL 70-105 (test uuwg=512) CALCIUM (BEAKER) (test 8.9 mg/dL 8.4-10.2 fshc=441) EGFR (BEAKER) (test 128 mL/min/1.73 sq m ESTIMATED GFR IS NOT iucc=3017) ACCURATE CREATININE CLEARANCE IN PREDICTING GLOMERULAR FILTRATION RATE. ESTIMATED GFR IS NOT APPLICABLE FOR DIALYSIS PATIENTS. URINALYSIS W/ REFLEX URINE [id number] 15:11:00 Test Item Value Reference Range Comments COLOR (BEAKER) (test cmze=709) [place] CLARITY (BEAKER) (test gfbv=084) Hazy SPECIFIC GRAVITY UA (BEAKER) (test thiy=984) 1.013 1.001-1.035 PH UA (BEAKER) (test iwcl=267) 6.0 5.0-8.0 PROTEIN UA (BEAKER) (test xquy=990) 100 mg/dL Negative GLUCOSE UA (BEAKER) (test call=426) Negative Negative KETONES UA (BEAKER) (test lioq=876) Trace Negative BILIRUBIN UA (BEAKER) (test jazf=724) Negative Negative BLOOD UA (BEAKER) (test tehf=090) Large Negative NITRITE UA (BEAKER) (test cpga=932) Negative Negative LEUKOCYTE ESTERASE UA (BEAKER) (test vvxg=668) Large Negative UROBILINOGEN UA (BEAKER) (test mjkf=484) 0.2 mg/dL 0.2-1.0 RBC UA (BEAKER) (test vbpc=243) > /HPF WBC UA (BEAKER) (test emvc=086) 68 /HPF MUCUS (BEAKER) (test szhd=2151) Rare SOURCE(BEAKER) (test pqre=7085) ANG, NEPHROSTOMY, PERC, EXTERNAL [id number] 13:43:00Reason for exam:-> right obstructing stone with UTI, needs right PCNU if possible or PCN if notFINAL REPORT Fluoroscopic and ultrasound guided right nephroureterostomy tube placement, 06/12/2018. Clinical History: Obstructing stone at the junction of the right distal ureter and ileoconduit with hydronephrosis and urosepsis. Patient has a history of spina bifida/caudal regression. Modality: Sonography and fluoroscopy Fiberglass Dowel Drawing Operator: Faisal Felix MD. Sharebroker: None. Sedation: General anesthesia provided by the [...] then removed. The tract wasdilated to 8 Japanese. An 8.5 Japanese by 28 cm nephroureterostomy catheter was then [...] MDReport Verified Date/Time: 06/12/2018 13:43:17 Reading Location: [facility] P048 Angio Body Reading Room CBC (HEMOGRAM ONLY)2018-06-12 10:29:00 Test Item Value Reference Range Comments WHITE BLOOD CELL COUNT (BEAKER) 8.5 K/ L 3.5-10.5 (test bzep=994) RED BLOOD CELL COUNT (BEAKER) 4.23 M/ L 3.93-5.22 (test aqbg=414) HEMOGLOBIN (BEAKER) (test 9.1 GM/DL 11.2-15.7 egiv=695) HEMATOCRIT (BEAKER) (test 31.4 % 34.1-44.9 uclr=436) MEAN CORPUSCULAR VOLUME 74.2 fL 79.4-94.8 (BEAKER) (test oxwr=321) MEAN CORPUSCULAR HEMOGLOBIN 21.5 pg 25.6-32.2 (BEAKER) (test rgoz=932) MEAN CORPUSCULAR HEMOGLOBIN 29.0 GM/DL 32.2-35.5 CONC (BEAKER) (test ibjt=211) RED CELL DISTRIBUTION WIDTH 20.4 % 11.7-14.4 (BEAKER) (test gseo=731) PLATELET COUNT (BEAKER) (test K/CU MM 150-450 Platelet clumps present, wqoq=554) unable to report true platelet. Recommend recollect using EDTA tube and blue (Citrate) tube. spoke to RN ID:[id number] NUCLEATED RED BLOOD CELLS 0 /100 WBC 0-0 (BEAKER) (test xadw=745) BASIC METABOLIC [id number] 06:52:00 Test Item Value Reference Range Comments SODIUM (BEAKER) (test 137 meq/L 136-145 drcq=808) POTASSIUM (BEAKER) (test 3.6 meq/L 3.5-5.1 mlzy=751) CHLORIDE (BEAKER) (test 108 meq/L 98-107 pcpl=181) CO2 (BEAKER) (test 20 meq/L 22-29 dkye=997) BLOOD UREA NITROGEN 14 mg/dL 7-21 (BEAKER) (test tbgu=818) CREATININE (BEAKER) (test 0.66 mg/dL 0.57-1.25 cmqc=155) GLUCOSE RANDOM (BEAKER) 87 mg/dL 70-105 (test xnkc=506) CALCIUM (BEAKER) (test 9.1 mg/dL 8.4-10.2 hqoz=200) EGFR (BEAKER) (test 121 mL/min/1.73 sq m ESTIMATED GFR IS NOT yyns=0131) ACCURATE CREATININE CLEARANCE IN PREDICTING GLOMERULAR FILTRATION RATE. ESTIMATED GFR IS NOT APPLICABLE FOR DIALYSIS PATIENTS. PT/[id number] 06:37:00 Test Item Value Reference Range Comments PROTIME (BEAKER) (test gfey=085) 14.4 seconds 11.7-14.7 INR (BEAKER) (test pubw=678) 1.1 <=5.9 PARTIAL THROMBOPLASTIN TIME (BEAKER) (test 30.8 seconds 22.5-36.0 jima=638) RECOMMENDED COUMADIN/WARFARIN INR THERAPY RANGESSTANDARD DOSE: 2.0 - 3.0 Includes: PROPHYLAXIS forvenous thrombosis, systemic embolization; TREATMENT for venous thrombosis and/or pulmonary embolus.HIGH RISK: Target INR is 2.5-3.5 for patients with mechanical heart valves.CT, [id number] 18:04:00FINAL REPORT CT scan of the abdomen [...] MDReport Verified Date/Time: 06/11/2018 18:04:02 Reading Location: [address] Ortho Consult Reading Room PREGNANCY SCREEN, [id number] 15:46:00 Test Item Value Reference Range Comments TEST URINE (BEAKER) (test tyhx=834) Negative URINALYSIS W/ REFLEX URINE [id number] 12:32:00 Test Item Value Reference Range Comments COLOR (BEAKER) (test ucct=222) Light Yellow CLARITY (BEAKER) (test zzpy=565) Cloudy SPECIFIC GRAVITY UA (BEAKER) (test eexl=771) 1.013 1.001-1.035 PH UA (BEAKER) (test necr=775) 7.5 5.0-8.0 PROTEIN UA (BEAKER) (test myqq=592) 30 mg/dL Negative GLUCOSE UA (BEAKER) (test zuxv=872) Negative Negative KETONES UA (BEAKER) (test ssrr=450) Trace Negative BILIRUBIN UA (BEAKER) (test bazr=847) Negative Negative BLOOD UA (BEAKER) (test jobo=604) Small Negative NITRITE UA (BEAKER) (test knwn=881) Positive Negative LEUKOCYTE ESTERASE UA (BEAKER) (test japr=489) Large Negative UROBILINOGEN UA (BEAKER) (test fojv=305) 0.2 mg/dL 0.2-1.0 RBC UA (BEAKER) (test rfmi=207) 2 /HPF WBC UA (BEAKER) (test rpem=479) 5 /HPF BACTERIA (BEAKER) (test kypd=718) Occasional MUCUS (BEAKER) (test riks=6047) Rare SQUAMOUS EPITHELIAL (BEAKER) (test fnkq=288) 1 /HPF HYALINE CASTS (BEAKER) (test tipc=107) 2 /LPF SOURCE(BEAKER) (test cuoz=2872) URINALYSIS W/ [id number] 12:32:00 Test Item Value Reference Range Comments COLOR (BEAKER) (test aamo=036) Yellow CLARITY (BEAKER) (test wcfz=381) Hazy SPECIFIC GRAVITY UA (BEAKER) (test xsbd=873) 1.012 1.001-1.035 PH UA (BEAKER) (test vcyd=400) 8.0 5.0-8.0 PROTEIN UA (BEAKER) (test fchu=049) 50 mg/dL Negative GLUCOSE UA (BEAKER) (test ewdk=022) Negative Negative KETONES UA (BEAKER) (test bdie=071) Negative Negative BILIRUBIN UA (BEAKER) (test ncek=928) Negative Negative BLOOD UA (BEAKER) (test qpop=302) Moderate Negative NITRITE UA (BEAKER) (test aury=613) Positive Negative LEUKOCYTE ESTERASE UA (BEAKER) (test Large Negative kedf=936) UROBILINOGEN UA (BEAKER) (test gkrt=251) 0.2 mg/dL 0.2-1.0 RBC UA (BEAKER) (test jlod=084) 6 /HPF WBC UA (BEAKER) (test vyxy=332) 10 /HPF BACTERIA (BEAKER) (test invy=767) Many MUCUS (BEAKER) (test ceaj=7164) Many CRYSTALS, URINE (BEAKER) (test iyln=8409) Occasional SOURCE(BEAKER) (test mxhr=5616) Urine, Urostomy BASIC METABOLIC [id number] 06:01:00 Test Item Value Reference Range Comments SODIUM (BEAKER) (test 139 meq/L 136-145 plpf=751) POTASSIUM (BEAKER) (test 3.6 meq/L 3.5-5.1 tufx=469) CHLORIDE (BEAKER) (test 108 meq/L 98-107 vejp=638) CO2 (BEAKER) (test 23 meq/L 22-29 akll=756) BLOOD UREA NITROGEN 12 mg/dL 7-21 (BEAKER) (test ymge=592) CREATININE (BEAKER) (test 0.66 mg/dL 0.57-1.25 ozlx=319) GLUCOSE RANDOM (BEAKER) 75 mg/dL 70-105 (test nudb=174) CALCIUM (BEAKER) (test 8.7 mg/dL 8.4-10.2 bkjq=453) EGFR (BEAKER) (test 121 mL/min/1.73 sq m ESTIMATED GFR IS NOT yzpb=7822) ACCURATE CREATININE CLEARANCE IN PREDICTING GLOMERULAR FILTRATION RATE. ESTIMATED GFR IS NOT APPLICABLE FOR DIALYSIS PATIENTS. LACTIC ACID, VENOUS, WHOLE [id number] 05:31:00 Test Item Value Reference Range Comments LACTATE BLOOD VENOUS (2) (BEAKER) (test 0.8 mmol/L 0.5-2.2 umus=0953) Effective 01/01/2016: Units/Reference Range ChangeNew: 0.5-2.2 mmol/L Previous: 5 -20 mg/[id number] 05:20:00 Test Item Value Reference Range Comments PARTIAL THROMBOPLASTIN TIME (BEAKER) (test 35.9 seconds 22.5-36.0 gxwb=347) PROTHROMBIN TIME/[id number] 05:19:00 Test Item Value Reference Range Comments PROTIME (BEAKER) (test xalr=949) 16.4 seconds 11.7-14.7 INR (BEAKER) (test kkjq=080) 1.3 <=5.9 RECOMMENDED COUMADIN/WARFARIN INR THERAPY RANGESSTANDARD DOSE: 2.0 - 3.0 Includes: PROPHYLAXIS forvenous thrombosis, systemic embolization; TREATMENT for venous thrombosis and/or pulmonary embolus.HIGH RISK: Target INR is 2.5-3.5 for patients with mechanical heart valves.CBC W/PLT COUNT & AUTO [id number] 05:08:00 Test Item Value Reference Range Comments WHITE BLOOD CELL COUNT 12.2 K/ L 3.5-10.5 (BEAKER) (test wxec=890) RED BLOOD CELL COUNT (BEAKER) 4.90 M/ L 3.93-5.22 (test xvlz=336) HEMOGLOBIN (BEAKER) (test 10.6 GM/DL 11.2-15.7 xess=300) HEMATOCRIT (BEAKER) (test 36.6 % 34.1-44.9 rdwe=628) MEAN CORPUSCULAR VOLUME 74.7 fL 79.4-94.8 (BEAKER) (test mfow=737) MEAN CORPUSCULAR HEMOGLOBIN 21.6 pg 25.6-32.2 (BEAKER) (test pqvj=786) MEAN CORPUSCULAR HEMOGLOBIN 29.0 GM/DL 32.2-35.5 CONC (BEAKER) (test qbpg=089) RED CELL DISTRIBUTION WIDTH 20.5 % 11.7-14.4 (BEAKER) (test mebb=221) PLATELET COUNT (BEAKER) (test 340 K/CU MM 150-450 mcee=138) MEAN PLATELET VOLUME (BEAKER) 9.4 fL 9.4-12.3 Discordant MPV result (test srji=201) compared to previous one; Clinical correlation required. NUCLEATED RED BLOOD CELLS 0 /100 WBC 0-0 (BEAKER) (test oqve=462) NEUTROPHILS RELATIVE PERCENT 89 % (BEAKER) (test onym=794) LYMPHOCYTES RELATIVE PERCENT 5 % (BEAKER) (test qxoh=302) MONOCYTES RELATIVE PERCENT 4 % (BEAKER) (test guuj=241) EOSINOPHILS RELATIVE PERCENT 2 % (BEAKER) (test ksnm=216) BASOPHILS RELATIVE PERCENT 0 % (BEAKER) (test srry=453) NEUTROPHILS ABSOLUTE COUNT 10.83 K/ L 1.56-6.13 (BEAKER) (test yqhz=942) LYMPHOCYTES ABSOLUTE COUNT 0.60 K/ L 1.18-3.74 (BEAKER) (test piyb=589) MONOCYTES ABSOLUTE COUNT 0.45 K/ L 0.24-0.36 (BEAKER) (test avwz=962) EOSINOPHILS ABSOLUTE COUNT 0.19 K/ L 0.04-0.36 (BEAKER) (test edwh=878) BASOPHILS ABSOLUTE COUNT 0.03 K/ L 0.01-0.08 (BEAKER) (test drjc=682) IMMATURE 1 % 0-1 GRANULOCYTES-RELATIVE PERCENT (BEAKER) (test quzb=8526) LACTIC ACID, ARTERIAL, WHOLE [id number] 02:05:00 Test Item Value Reference Range Comments LACTATE BLOOD ARTERIAL (2) 0.6 mmol/L 0.5-2.2 Specimen slightly hemolyzed (BEAKER) (test ictb=1525) Effective 01/01/2016: Units/Reference Range ChangeNew: 0.5-2.2 mmol/L Previous: 5 -20 mg/[id number] 01:43:00 Test Item Value Reference Range Comments MAGNESIUM (BEAKER) (test 2.0 mg/dL 1.6-2.6 Specimen moderately hemolyzed ssvd=816) [id number] 01:43:00 Test Item Value Reference Range Comments PHOSPHORUS (BEAKER) (test 3.0 mg/dL 2.3-4.7 Specimen moderately hemolyzed xgfi=767) COMPREHENSIVE METABOLIC [id number] 01:43:00 Test Item Value Reference Range Comments TOTAL PROTEIN (BEAKER) 7.3 gm/dL 6.0-8.3 Specimen moderately (test efee=708) hemolyzed ALBUMIN (BEAKER) (test 3.3 g/dL 3.5-5.0 Specimen moderately xmoc=1466) hemolyzed ALKALINE PHOSPHATASE 56 U/L 40-150 (BEAKER) (test bxeb=324) BILIRUBIN TOTAL (BEAKER) 0.4 mg/dL 0.2-1.2 Specimen moderately (test amrl=482) hemolyzed SODIUM (BEAKER) (test 133 meq/L 136-145 vpkp=908) POTASSIUM (BEAKER) (test 4.5 meq/L 3.5-5.1 Specimen moderately sceo=697) hemolyzed CHLORIDE (BEAKER) (test 108 meq/L 98-107 rchr=548) CO2 (BEAKER) (test 15 meq/L 22-29 cplk=300) BLOOD UREA NITROGEN 12 mg/dL 7-21 (BEAKER) (test dwht=261) CREATININE (BEAKER) (test 0.61 mg/dL 0.57-1.25 Specimen moderately bahp=418) hemolyzed GLUCOSE RANDOM (BEAKER) 92 mg/dL 70-105 (test ofts=568) CALCIUM (BEAKER) (test 8.3 mg/dL 8.4-10.2 ttmz=805) AST (SGOT) (BEAKER) (test 35 U/L 5-34 Specimen moderately tile=127) hemolyzed ALT (SGPT) (BEAKER) (test 14 U/L 6-55 Specimen moderately pbbg=849) hemolyzed EGFR (BEAKER) (test 133 mL/min/1.73 sq ESTIMATED GFR IS NOT fmxs=8320) m ACCURATE CREATININE CLEARANCE IN PREDICTING GLOMERULAR FILTRATION RATE. ESTIMATED GFR IS NOT APPLICABLE FOR DIALYSIS PATIENTS. CBC W/PLT COUNT & AUTO [id number] 01:20:00 Test Item Value Reference Range Comments WHITE BLOOD CELL COUNT (BEAKER) (test oyku=940) 21.0 K/ L 3.5-10.5 RED BLOOD CELL COUNT (BEAKER) (test ltwm=006) 3.83 M/ L 3.93-5.22 HEMOGLOBIN (BEAKER) (test okrj=832) 8.4 GM/DL 11.2-15.7 HEMATOCRIT (BEAKER) (test jvbv=715) 28.3 % 34.1-44.9 MEAN CORPUSCULAR VOLUME (BEAKER) (test tegq=318) 73.9 fL 79.4-94.8 MEAN CORPUSCULAR HEMOGLOBIN (BEAKER) (test 21.9 pg 25.6-32.2 nswz=935) MEAN CORPUSCULAR HEMOGLOBIN CONC (BEAKER) (test 29.7 GM/DL 32.2-35.5 rndf=661) RED CELL DISTRIBUTION WIDTH (BEAKER) (test 20.3 % 11.7-14.4 orvj=715) PLATELET COUNT (BEAKER) (test zfwy=581) 398 K/CU MM 150-450 MEAN PLATELET VOLUME (BEAKER) (test slha=541) 10.2 fL 9.4-12.3 NUCLEATED RED BLOOD CELLS (BEAKER) (test 0 /100 WBC 0-0 akfv=645) NEUTROPHILS RELATIVE PERCENT (BEAKER) (test 87 % jmjm=513) LYMPHOCYTES RELATIVE PERCENT (BEAKER) (test 6 % qkio=507) MONOCYTES RELATIVE PERCENT (BEAKER) (test 6 % cglr=410) EOSINOPHILS RELATIVE PERCENT (BEAKER) (test 1 % cpxd=719) BASOPHILS RELATIVE PERCENT (BEAKER) (test 0 % krkx=923) NEUTROPHILS ABSOLUTE COUNT (BEAKER) (test 18.34 K/ L 1.56-6.13 lqzv=536) LYMPHOCYTES ABSOLUTE COUNT (BEAKER) (test 1.15 K/ L 1.18-3.74 kqaz=172) MONOCYTES ABSOLUTE COUNT (BEAKER) (test 1.21 K/ L 0.24-0.36 vjsp=470) EOSINOPHILS ABSOLUTE COUNT (BEAKER) (test 0.13 K/ L 0.04-0.36 qpjq=086) BASOPHILS ABSOLUTE COUNT (BEAKER) (test 0.06 K/ L 0.01-0.08 eimi=600) IMMATURE GRANULOCYTES-RELATIVE PERCENT (BEAKER) 1 % 0-1 (test evhz=2194)
--- OUTSIDE RECORDS SUMMARY | 2019-01-30 15:18 | XMS REPORT | Summary of Care ---
:1980 Author Name Parish [facility] Address Unavailable Unavailable , Care Team Providers Name Role Phone DEVENDRA James, DEONDRE Unavailable Unavailable LARRY James, ANNIE Unavailable Unavailable CHRISTOPHE James, BlancaULEIKHA Unavailable Unavailable JUANA James, REYNA Unavailable Unavailable DEVENDRA MASON OH, DEONDRE Unavailable Unavailable Anais MASON, Karon Unavailable Unavailable ANKITA LOCKETT MD, ARGENTINA Unavailable Unavailable Juana MASON, Reyna Unavailable Unavailable JANIE MASON OH, IRVING MELISSA Unavailable Unavailable LARRY MASON, ANNIE Unavailable Unavailable Unavailable Unavailable Unavailable Functional Status Name Dates Details Functional status health issues are not documented Status: Name Dates Details Cognitive status health issues are not documented Status: Problems Name Dates Details Irregular bleeding (626.4, N92.6) Status: Active Obstruction of right ureter (593.4, N13.5) Status: Active Obstruction of nephrostomy tube (997.5, T83.092A) Status: Active Anemia (285.9, D64.9) Status: Active Insomnia (780.52, G47.00) Status: Active Hospital discharge follow-up (V67.59, Z09) Status: Active Nephrolithiasis (592.0, N20.0) Status: Active SB (spina bifida) (741.90, Q05.9) Status: Active Encounter for postoperative care (V58.49, Z48.89) Status: Active Medications Name Dates Details amLODIPine Besylate 5 MG Oral Tablet Refills: 0 Start : 23-Dec-2018 Active Zolpidem Tartrate 5 MG Oral Tablet TAKE 1 TABLET BEDTIME Quantity: 30 Refills: 3 ELEAZAR AKHTAR M.D.A Start : 23-Dec-2018 Active Amoxicillin 500 MG Oral Capsule TAKE ONE CAPSULE THREE TIMES DAILY x 5days Quantity: 15 Refills: 0 DEONDRE RAMSAY M.D. Start : 28-Dec-2018 Active Ondansetron HCl - 4 MG Oral Tablet TAKE 1 TABLET Every twelve hours Quantity: 30 Refills: 0 ROBERTO SAEED M.D. Start : 04-Jan-2019 Active Minocycline HCl - 100 MG Oral Tablet TAKE 1 TABLET TWICE DAILY Quantity: 14 Refills: 0 LARRY James ANNIE Start : 04-Jan-2019 Active Ferrous Sulfate 325 (65 Fe) MG Oral Tablet TAKE 1 TABLET TWICE DAILY WITH MEALS. Quantity: 30 Refills: 3 ROBERTO SAEED M.D. 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) Status: Resolved History of hypertension (V12.59, Z86.79) Status: Resolved History of kidney stones (V13.01, Z87.442) Status: Resolved History of Preop examination (V72.84, Z01.818) Status: Resolved History of pyelonephritis (V13.02, Z87.448) Status: Resolved History of Recurrent nephrolithiasis (592.0, N20.0) Status: Resolved History of Sacral decubitus ulcer (707.03, L89.159) Status: Resolved History of Spina bifida of lumbar spine (741.93, Q05.7) Status: Resolved History of urinary tract infection (V13.02, Z87.440) Status: Resolved Procedures Procedure Dates Details [QLH] URINALYSIS, COMPLETE Date: 28-Nov-2018 Immunization Name Dates Details Tdap (Adacel) on: Aug-2016 Fluzone Quadrivalent 0.5 ML Intramuscular Suspension on: Aug-2016 Social History Name Dates Details - Status: Name Dates Details Never smoker Never smoker Vital Signs Date Test Result Details 44-Iin-35159:02 BP Systolic 116 mm[Hg] Status: Comments: Location: LUE; Position: Sitting BP Diastolic 81 mm[Hg] Status: Comments: Location: E; Position: Sitting Height 60 in Status: Temperature 98.4 f Status: Comments: Method: Oral Heart Rate 103 /min Status: Physical Findings 0 Status: Comments: Alcohol Screen - How many times in the past yr have you had 5 (for M) or 4 (for F) or 4 (for all > 65yrs) or more drinks in a day? 88-Zzj-116900:14 BP Systolic 115 mm[Hg] Status: Comments: Location: RUE; Position: Sitting BP Diastolic 81 mm[Hg] Status: Comments: Location: E; Position: Sitting Height 60 in Status: Temperature 98.2 f Status: Comments: Method: Oral Heart Rate 101 /min Status: Comments: Location: R Radial; Physical Findings 0 Status: Comments: Alcohol Screen - How many times in the past yr have you had 5 (for M) or 4 (for F) or 4 (for all > 65yrs) or more drinks in a day? Weight 142 lb Status: Body Mass Index Calculated 27.73 kg/m2 Status: Body Surface Area Calculated 1.61 m2 Status: Respiration Rate 18 /min Status: Comments: Quality: Normal 04-Jan-20198:34 BP Systolic 120 mm[Hg] Status: Comments: Location: E; Position: Sitting BP Diastolic 88 mm[Hg] Status: Comments: Location: [facility]; Position: Sitting Temperature 98.2 f Status: Comments: Method: Oral Heart Rate 101 /min Status: Comments: Location: R Brachial Artery; Respiration Rate 16 /min Status: Comments: Quality: Normal Results Date Description Value Details Results not documented Plan of Care Name Dates Details Planned Observations Planned Goals not documented Planned Encounters Appointment; ANNIE JUAREZ M.D. On: 03-Mar-2019 9:15 Appointment; REYNA AKHTAR M.D. On: 20-Mar-2019 14:45 [...] 9:40 Encounter Diagnosis: Problem not documented Appointment; [facility] On: 23-Dec-2018 11:00 Encounter Diagnosis: Problem not documented Appointment; REYNA AKHTAR M.D. On: 04-Jan-2019 8:15 Encounter Diagnosis: Problem not documented Appointment; DEONDRE RAMSAY M.D. On: 12-Jan-2019 11:30 Encounter Diagnosis: Problem not documented Appointment; ROBERTO SAEED M.D. On: 25-Jan-2019 10:30 Encounter Diagnosis: Problem not documented Appointment; DEONDRE RAMSAY M.D. On: 27-Jan-2019 9:00 Encounter Diagnosis: Problem not documented
[2019-01-30] MEDS ORDERED: NA CHLORIDE 0.9% 500 ML ONE (16:26)
[2019-01-30] MEDS ORDERED: ONDANSETRON 4 MG/2 ML VIAL ONE ×2 (16:52→19:32)
[2019-01-30] MEDS ORDERED: FENTANYL CITR 100 MCG/2 ML ONE (16:52)
[2019-01-30 17:10] LABS: ALT/SGPT 23 U/L (12-78); AST/SGOT 19 U/L (15-37); Albumin 3.1 g/dL (3.4-5.0); Alkaline Phosphatase 82 U/L (45-117); BUN Blood Urea Nitrogen 12 mg/dL (7-18); Bicarbonate 25 mmol/L (21-32); Bilirubin Direct < 0.1 mg/dL (0-0.2); Bilirubin Total 0.2 mg/dL (0.2-1.0); Glucose Level 84 mg/dL (74-106); Lipase 178 U/L (73-393); Potassium 4.5 mmol/L (3.5-5.1); Protein, Total 8.4 g/dL (6.4-8.2); Sodium Level 143 mmol/L (136-145)
--- NOTE | 2019-01-30 17:29 | RAD REPORT ---
EXAM DESCRIPTION: CT - Stone Protocol - 01/30/2019 5:01 pm CLINICAL HISTORY: Abdominal pain. COMPARISON: November 2018 TECHNIQUE: Computed axial tomography of the abdomen pelvis was obtained without oral or IV contrast. Lack of IV and oral contrast limits evaluation of solid organs, bowel, and vessels. Coronal reformat alda images were obtained and reviewed. All CT scans are performed using dose optimization technique as appropriate and may include automated exposure control or mA/KV adjustment according to patient size. FINDINGS: Small to moderate chronic left pleural effusion. Ventriculopleural shunt in place or Small bilateral renal calculi mild to moderate right hydronephrosis. Calculus within the right ureter is not clearly seen. Surrounding phleboliths. Right lower quadrant ileal conduit left ureteral calcu suyapa is not seen The liver, spleen, pancreas and adrenals appear grossly normal Left lower quadrant colostomy. No evidence of diverticulitis IUD in place IMPRESSION: Small bilateral renal calculi Mild to moderate right hydronephrosis. Right ureteral calculus is not clearly seen.
--- NOTE | 2019-01-30 17:52 | EDPHYS ---
Physician Documentation [facility] Name: Leila Aquino Age: 38 yrs Sex: Female : 1980 Arrival Date: 01/30/2019 Time: 15:07 Bed 7 Private MD: JANNET Physician Burton Rodrigez HPI: 01/30 16:07 This 38 yrs old Black Female presents to ER via EMS with complaints of Nausea, Flank efrain Pain. 16:07 The patient presents to the emergency department with nausea, vomiting. Onset: The efrain symptoms/episode began/occurred 1 day(s) ago. Possible causes: unknown. Associated signs and symptoms: The patient has no apparent associated signs or symptoms. The patient has not experienced similar symptoms in the past. 16:07 The patient complains of pain in the right mid back and right low back. The symptoms efrain are aggravated by nothing. The symptoms are alleviated by nothing. The patient presents with pain that is acute, with no known mechanism of injury. 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 - Social history:: Smoking status: Patient/guardian denies using tobacco. - Ebola Screening: : Patient negative for fever greater than or equal to 101.5 degrees Fahrenheit, and additional compatible Ebola Virus Disease symptoms Patient denies exposure to infectious person Patient denies travel to an Ebola-affected area in the 21 days before illness onset No symptoms or risks identified at this time. - Family history:: not pertinent. ROS: 16:07 Constitutional: Negative for fever, chills, and weight loss, Eyes: Negative for injury, efrain pain, redness, and discharge, ENT: Negative for injury, pain, and discharge, Neck: Negative for injury, pain, and swelling, Cardiovascular: Negative for chest pain, palpitations, and edema, Respiratory: Negative for shortness of breath, cough, wheezing, and pleuritic chest pain, Abdomen/GI: Negative for abdominal pain, nausea, vomiting, diarrhea, and constipation, : Negative for injury, bleeding, discharge, and swelling, MS/Extremity: Negative for injury and deformity, Skin: Negative for injury, rash, and discoloration, Neuro: Negative for headache, weakness, numbness, tingling, and seizure, Psych: Negative for depression, anxiety, suicide ideation, homicidal ideation, and hallucinations, Allergy/Immunology: Negative for hives, rash, and allergies, Endocrine: Negative for neck swelling, polydipsia, polyuria, polyphagia, and marked weight changes, Hematologic/Lymphatic: Negative for swollen nodes, abnormal bleeding, and unusual bruising. 16:07 Back: Positive for flank pain, on the right. Exam: 16:07 Constitutional: This is a well developed, well nourished patient who is awake, alert, efrain and in no acute distress. Head/Face: Normocephalic, atraumatic. Eyes: Pupils equal round and reactive to light, extra-ocular motions intact. Lids and lashes normal. Conjunctiva and sclera are non-icteric and not injected. Cornea within normal limits. Periorbital areas with no swelling, redness, or edema. ENT: Nares patent. No nasal discharge, no septal abnormalities noted. Tympanic membranes are normal and external auditory canals are clear. Oropharynx with no redness, swelling, or masses, exudates, or evidence of obstruction, uvula midline. Mucous membranes moist. Neck: Trachea midline, no thyromegaly or masses palpated, and no cervical lymphadenopathy. Supple, full range of motion without nuchal rigidity, or vertebral point tenderness. No Meningismus. Chest/axilla: Normal chest wall appearance and motion. Nontender with no deformity. No lesions are appreciated. Cardiovascular: Regular rate and rhythm with a normal S1 and S2. No gallops, murmurs, or rubs. Normal PMI, no JVD. No pulse deficits. Respiratory: Lungs have equal breath sounds bilaterally, clear to auscultation and percussion. No rales, rhonchi or wheezes noted. No increased work of breathing, no retractions or nasal flaring. Abdomen/GI: Soft, non-tender, with normal bowel sounds. No distension or tympany. No guarding or rebound. No evidence of tenderness throughout. Skin: Warm, dry with normal turgor. Normal color with no rashes, no lesions, and no evidence of cellulitis. MS/ Extremity: Pulses equal, no cyanosis. Neurovascular intact. Full, normal range of motion. Neuro: Awake and alert, GCS 15, oriented to person, place, time, and situation. Cranial nerves II-XII grossly intact. Motor strength 5/5 in all extremities. Sensory grossly intact. Cerebellar exam normal. Normal gait. Psych: Awake, alert, with orientation to person, place and time. Behavior, mood, and affect are within normal limits. 16:07 Back: pain, of the right mid back and right low back, ileostomy, wth double j stent. Vital Signs: 15:18 BP 120 / 83; Pulse 96; Resp 17; Temp 98.6; Pulse Ox 100% on R/A; Pain 8/10; sg 17:00 BP 119 / 86; Pulse 90; Resp 18; Pulse Ox 100% on R/A; Pain 4/10; mg2 18:00 BP 118 / 89; Pulse 90; Resp 18; Temp 98.5; Pulse Ox 100% ; mg2 19:06 BP 120 / 73; Pulse 95; Resp 18; Temp 98.5; Pulse Ox 100% on R/A; mg2 20:09 BP 121 / 78; Pulse 92; Resp 18; Temp 98; Pulse Ox 100% on R/A; Pain 0/10; mg2 Procedures: 16:09 Peripheral line: by aseptic technique a peripheral line was placed in the left external efrain jugular vein. MDM: 15:41 Patient medically screened. [facility] 16:09 Data reviewed: vital signs, nurses notes, lab test result(s), radiologic studies, CT efrain scan. 01/30 16:47 Order name: Urine Dipstick--Ancillary (enter results) 01/30 16:47 Order name: Urine --Ancillary (enter results) 01/30 17:11 Order name: Creatinine (Radiology Only); Complete Time: 17:26 EDMS 01/30 17:12 Order name: Basic Metabolic Panel; Complete Time: 17:26 EDIA 01/30 17:12 Order name: Liver (Hepatic) Function; Complete Time: 17:26 EDIA 01/30 17:12 Order name: Lipase; Complete Time: 17:26 EDIA 01/30 18:57 Order name: CBC with Automated Diff EDIA 01/30 19:54 Order name: Manual Differential EDIA 01/30 16:07 Order name: IV Saline Lock; Complete Time: 16:29 [facility] 01/30 16:07 Order name: Labs collected and sent; Complete Time: 16:29 [facility] 01/30 16:07 Order name: Urine Dipstick-Ancillary (obtain specimen); Complete Time: 16:29 [facility] 01/30 16:07 Order name: Urine Test (obtain specimen); Complete Time: 16:29 [facility] 01/30 17:01 Order name: Labs - recollect needed; Complete Time: 17:32 01/30 17:31 Order name: CT; Complete Time: 17:42 EDMS Administered Medications: 16:08 Drug: NS 0.9% 500 ml Route: IV; Rate: bolus; Site: left jugular; mg2 16:42 Drug: Zofran 4 mg Route: IVP; Site: left jugular; mg2 19:45 Follow up: Response: No adverse reaction; Marked relief of symptoms mg2 16:42 Drug: fentaNYL (PF) 25 mcg Route: IVP; Site: left jugular; mg2 17:15 Follow up: Response: No adverse reaction; Marked relief of symptoms mg2 19:41 Not Given (Patient Refused): fentaNYL (PF) 25 mcg IVP once mg2 19:46 Drug: Demerol 25 mg Route: IVP; Site: left jugular; mg2 20:08 Follow up: Response: No adverse reaction; Marked relief of symptoms mg2 19:47 Drug: Zofran 4 mg Route: IVP; Site: left jugular; mg2 20:08 Follow up: Response: No adverse reaction; Marked relief of symptoms mg2 Disposition: 01/30/19 17:51 Transfer ordered to [facility]. Diagnosis are Cystitis, Hydronephrosis with ureteral stricture, not elsewhere classified. - Reason for transfer: Higher level of care. - Accepting physician is to [facility]. - Condition is Stable. - Problem is new. - Symptoms have improved. Signatures: Dispatcher [employer] EDMS Vilma Mcintyre Steven, RN RN Burton Lema MD MD cha Gardose, Michele, RN RN mg2 Corrections: (The following items were deleted from the chart) 20:11 17:51 01/30/2019 17:51 Transfer ordered to [facility]. mg2 Diagnosis is Cystitis; Hydronephrosis with ureteral stricture, not elsewhere classified. Reason for transfer: Higher level of care. Accepting physician is to [facility]. Condition is Stable. Problem is new. Symptoms have improved. efrain
--- NOTE | 2019-01-30 17:52 | ER ---
Nurse's Notes [facility] Name: Leila Aquino Age: 38 yrs Sex: Female : 1980 Arrival Date: 01/30/2019 Time: 15:07 Bed 7 Private MD: Diagnosis: Cystitis;Hydronephrosis with ureteral stricture, not elsewhere classified Presentation: 01/30 15:14 Presenting complaint: EMS states: pt had a nephrostomy inserted by her urologist in [facility], reports today that the drain was removed unintentional, is now experiencing pain at the site as well as having nausea today. Transition of care: patient was not received from another setting of care. Onset of symptoms was January 30, 2019. Risk Assessment: Do you want to hurt yourself or someone else? Patient reports no desire to harm self or others. Initial Sepsis Screen: Does the patient meet any 2 criteria? No. Patient's initial sepsis screen is negative. Does the patient have a suspected source of infection? No. Patient's initial sepsis screen is negative. Care prior to arrival: None. 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 - Social history:: Smoking status: Patient/guardian denies using tobacco. - Ebola Screening: : Patient negative for fever greater than or equal to 101.5 degrees Fahrenheit, and additional compatible Ebola Virus Disease symptoms Patient denies exposure to infectious person Patient denies travel to an Ebola-affected area in the 21 days before illness onset No symptoms or risks identified at this time. - Family history:: not pertinent. Screenin:06 Abuse screen: Denies threats or abuse. Denies injuries from another. Nutritional mg2 screening: No deficits noted. Tuberculosis screening: No symptoms or risk factors identified. Fall Risk IV access (20 points). Assessment: 16:31 General: Appears in no apparent distress. comfortable, Behavior is calm, cooperative. mg2 Pain: Complains of pain in right low back and right mid back Pain does not radiate. Pain currently is 4 out of 10 on a pain scale. Quality of pain is described as aching, Pain began gradually, Is intermittent. Neuro: Level of Consciousness is awake, alert, obeys commands, Oriented to person, place, time, situation. Cardiovascular: Capillary refill < 3 seconds Patient's skin is warm and dry. Respiratory: Airway is patent Respiratory effort is even, unlabored, Respiratory pattern is regular, symmetrical. GI: Reports lower abdominal pain, upper abdominal pain, nausea. : Urine is cloudy. : she has a nephrostomy tube in place/stent inside and is loosely attached to her stoma. EENT: No signs and/or symptoms were reported regarding the EENT system. Derm: Skin is normal. Musculoskeletal: Circulation, motion, and sensation intact. Capillary refill < 3 seconds. 18:08 Reassessment: Patient appears in no apparent distress at this time. Patient and/or sg family updated on plan of care and expected duration. Pain level reassessed. Patient is alert, oriented x 3, equal unlabored respirations, skin warm/dry/pink. pt family at bedside at this time, awaiting transfer to receiving facility, will continue to monitor. 18:41 Reassessment: lab at bedside for recollect lab specimen, pt reports " that fentanyl is sg not working to control my pain, Im getting a little aggravated with it. My nausea is not much better either, they always have to give me Dilaudid and phenergan to help with my pain and nausea." Nonpharm pain management techniques offered, pt reports those are not helping at this time. notified of pt request. 19:47 Reassessment: report called to RAJNI David of [facility]. change of stoma bag mg2 done. 20:10 Reassessment: patient transferred in good condition, conversant, pain-free, alert and mg2 oriented. Vital Signs: 15:18 BP 120 / 83; Pulse 96; Resp 17; Temp 98.6; Pulse Ox 100% on R/A; Pain 8/10; sg 17:00 BP 119 / 86; Pulse 90; Resp 18; Pulse Ox 100% on R/A; Pain 4/10; mg2 18:00 BP 118 / 89; Pulse 90; Resp 18; Temp 98.5; Pulse Ox 100% ; mg2 19:06 BP 120 / 73; Pulse 95; Resp 18; Temp 98.5; Pulse Ox 100% on R/A; mg2 20:09 BP 121 / 78; Pulse 92; Resp 18; Temp 98; Pulse Ox 100% on R/A; Pain 0/10; mg2 ED Course: 15:07 Patient arrived in ED. iw 15:14 Javid Navarrete, RN is Primary Nurse. sg 15:18 Triage completed. sg 15:19 Arm band placed on. sg 15:41 Burton Rodrigez MD is Attending Physician. [facility] 16:07 Inserted saline lock: 18 gauge in left EJ, using aseptic technique. Blood collected. by mg2 Dr rodrigez. 16:08 Patient has correct armband on for positive identification. Pulse ox on. NIBP on. Door mg2 closed. Warm blanket given. 20:09 No provider procedures requiring assistance completed. Patient transferred, IV remains mg2 in place. Administered Medications: 16:08 Drug: NS 0.9% 500 ml Route: IV; Rate: bolus; Site: left jugular; mg2 16:42 Drug: Zofran 4 mg Route: IVP; Site: left jugular; mg2 19:45 Follow up: Response: No adverse reaction; Marked relief of symptoms mg2 16:42 Drug: fentaNYL (PF) 25 mcg Route: IVP; Site: left jugular; mg2 17:15 Follow up: Response: No adverse reaction; Marked relief of symptoms mg2 19:41 Not Given (Patient Refused): fentaNYL (PF) 25 mcg IVP once mg2 19:46 Drug: Demerol 25 mg Route: IVP; Site: left jugular; mg2 20:08 Follow up: Response: No adverse reaction; Marked relief of symptoms mg2 19:47 Drug: Zofran 4 mg Route: IVP; Site: left jugular; mg2 20:08 Follow up: Response: No adverse reaction; Marked relief of symptoms mg2 Outcome: 17:51 ER care complete, transfer ordered by . [facility] 20:[address] [facility], Transfer form completed. mg2 20:09 Condition: stable 20:09 Instructed on the need for transfer, Demonstrated understanding of instructions. 20:11 Patient left the ED. mg2 Signatures: Javid Navarrete RN RN Burton Lema MD MD cha Williams, Irene, RN RN iw Gardose, Michele, RN RN mg2 Corrections: (The following items were deleted from the chart) 19:49 19:06 Pulse 95bpm; Resp 18bpm; Pulse Ox 100% RA; Temp 98.5F; mg2 mg2
[2019-01-30 18:18] LABS: Absolute Monocytes 0.7 K/uL (0.1-1.3); Absolute Neutrophil 5.2 K/uL (1.8-8.0); Basophils % 0.8 % (0-1.3); Eosinophils % 3.2 % (0-4.4); Hematocrit 33.9 % (36.0-45.0); Lymphocytes % 31.8 % (15.3-44.8); Monocytes % 7.9 % (3.3-12.3); RBC Red Blood Cell Count 4.49 M/uL (3.86-4.86)
[2019-01-30] MEDS ORDERED: MEPERIDINE HCL 25 MG/0.5 ML ONE (19:32)
[2019-01-30 19:52] LABS: Anisocytosis 1+; Blood Morphology Comment NOTED (NOT SEEN); Ovalocytes 2+
[2019-01-30 20:05] LABS: Platelet Estimate INCR
[2019-01-30 21:05] VITALS: O2SAT 100
[2019-01-30 21:11] VITALS: BP 121/78; TEMP 98
[2019-01-31 05:34] LABS: Urine Blood 1+ (NEG); Urine Glucose NEGATIVE (NEG); Urine Protein 1+ (NEG); Urine Specific Gravity 1.025 (1.005-1.030); Urine pH 6.5 (5.0-7.0)
== END 2019-01-30 20:11 | disposition short-term general hospital (02) ==
LOC: ER 15:00
PROC: 05HQ33Z Insertion of Infusion Device into Left External Jugular Vein, Percutaneous Approach (ICD-10-PCS; principal; 2019-01-30)
DX: N30.90 Cystitis, unspecified without hematuria (principal); N13.1 Hydronephrosis with ureteral stricture, not elsewhere classified; I10 Essential (primary) hypertension; J45.909 Unspecified asthma, uncomplicated; Z88.3 Allergy status to other anti-infective agents; Z88.5 Allergy status to narcotic agent; Z88.8 Allergy status to other drugs, medicaments and biological substances; Z87.442 Personal history of urinary calculi; Z91.040 Latex allergy status
CPT/HCPCS: 87088; 85025; 87086; 80048; 36415; 81025; 80076; 81003; 83690; 76377; 74176; 96375; 96374; 99285; 36569; J3010; J2175; J2405 ×2

== ENCOUNTER 2019-05-01 16:45 | Emergency (ER) | payer OTHER ==
--- OUTSIDE RECORDS SUMMARY | 2019-05-01 16:54 | XMS REPORT | Clinical Summary ---
:1980 Author Organization [facility] Address [address] [place] [address] Care Team Providers Name Role Phone Beverley [...] Right ureteral stone Rashida King MD after 04/30/2018 Social History Tobacco Use Types Packs/Day Years [...] Not on file Implants Implanted Type Area Client Support Administrator Device Shelf Model / Identifier Expiration Date Serial / Lot Matrix Floseal Hemo W/O [id number] - [id number] Cement/Fi NAVARRO:BIOSCI [id number] / Implanted: Qty: 1 on 06/28/2018 by Hao Welch MD ller/Ramila / kalpana [id number] Procedures Procedure Name Priority Date/Time Associated Comments Diagnosis TRANSFUSE Routine 10/06/2018 5:33 LEUKO-REDUCED RED PM STREET SWEEPER OPERATOR BLOOD CELLS TRANSFUSION SERVICE 06/30/2018 6:01 REPORT [...] procedure are in the results section. FL BRANCH SERVICE REPRESENTATIVE IN OR 30 Routine 06/28/2018 9:20 Results [...] procedure are in the results section. after 04/30/2018 Results Transfuse Leuko-Red RBC (10/06/2018 5:[address] SWEEPER OPERATOR)TRANSFUSION SERVICE REPORT - SCAN (06/30/2018 6:01 PM CDT)Only the most recent of3 resultswithin the time period is included. Narrative Performed At Prepare Leuko-Red RBC (06/29/2018 11:54 PM CDT) CROSSMATCH COMPATIBLE [place] Unit ABO A Neg [place] UNIT NUMBER [id number] [place] Status TRANSFUSED [place] Blood Bank Product RED BLOOD CELLS [place] PRODUCT CODE [id number] [place] CROSSMATCH COMPATIBLE [place]AFET[place]ACE TX Unit ABO A Neg [place] UNIT NUMBER [id number] [place] Status TRANSFUSED [place] Blood Bank Product RED BLOOD CELLS [place] PRODUCT CODE [id number] [place] Specimen Other Performing Organization Address City/State/Zipcode Phone Number [place] CBC with platelet count + automated diff (06/29/2018 5:26 AM CDT)Only the most recent of9 resultswithin the time period is included. WBC 9.2 3.5 - 10.5 K/L [facility] RBC 4.41 3.93 - 5.22 M/L [facility] Hemoglobin 10.1 (L) 11.2 - 15.7 GM/DL [facility] Hematocrit 33.7 (L) 34.1 - 44.9 % [facility] MCV 76.4 (L) 79.4 - 94.8 fL [facility] MCH 22.9 (L) 25.6 - 32.2 pg [facility] MCHC 30.0 (L) 32.2 - 35.5 GM/DL [facility] RDW 21.2 (H) 11.7 - 14.4 % [facility] Platelets 51 (L) 150 - 450 K/CU MM [facility] MPV Comment: Unable to 9.4 - 12.3 fL [facility] report due to abnormal [facility] Platelet population distribution. nRBC 0 0 - 0 /100 WBC [facility] % Neutros 71 % [facility] % Lymphs 17 % [facility] % Monos 10 % [facility] % Eos 1 % [facility] % Baso 0 % [facility] # Neutros 6.59 (H) 1.56 - 6.13 K/L [facility] # Lymphs 1.59 1.18 - 3.74 K/L [facility] # Monos 0.91 (H) 0.24 - 0.36 K/L [facility] # Eos 0.07 0.04 - 0.36 K/L [facility] # Baso 0.03 0.01 - 0.08 K/L [facility] Immature 0 0 - 1 % [facility] Granulocytes-Relative [facility] Specimen Blood Performing Organization Address City/State/Zipcode Phone Number [facility] [address] [place] [address] CENTER Basic Metabolic Panel (06/29/2018 5:26 AM CDT)Only the most recent of10 resultswithin the time period is included. Sodium 137 136 - 145 meq/L [facility] Potassium 3.7 3.5 - 5.1 meq/L [facility] Chloride 112 (H) 98 - 107 meq/L [facility] CO2 17 (L) 22 - 29 meq/L [facility] BUN 7 7 - 21 mg/dL [facility] Creatinine 0.64 0.57 - 1.25 mg/dL [facility] Glucose 82 70 - 105 mg/dL [facility] Calcium 8.9 8.4 - 10.2 mg/dL [facility] EGFR 126Comment: ESTIMATED GFR IS mL/min/1.73 sq m [facility] NOT ACCURATE CREATININE [facility] CENTER CLEARANCE IN PREDICTING GLOMERULAR FILTRATION RATE. ESTIMATED GFR IS NOT APPLICABLE FOR DIALYSIS PATIENTS. Specimen Blood Performing Organization Address City/State/Zipcode Phone Number [facility] [address] [place] [address] [phone] abdomen/pelvis without iv contrast (06/29/2018 5:12 AM CDT)Only the most recent of2 resultswithin the time period is included. Specimen Narrative Performed At FINAL REPORT [employer] INDICATION: 37-year-old female status post recent percutaneous [...] MD Report Verified Date/Time:06/29/2018 07:41:57 Reading Location: [facility] Diagnostic Imaging Reading Room - [place] [id number] Procedure Note Interface, External Ris In - [...] Report Verified Date/Time: 06/29/2018 07:41:57 Reading Location: [facility] Diagnostic Imaging Reading Room - [place] [id number] Performing Organization Address City/State/Zipcode Phone Number [employer] XR chest 1 view portable / bedside (06/28/2018 12:30 PM CDT)Only the most recent of2 resultswithin the time period is included. Specimen Narrative Performed At FINAL REPORT [employer] TECHNIQUE: Frontal chest radiograph dated 06/28/2018. CLINICAL [...] MD Report Verified Date/Time:06/28/2018 13:37:49 Reading Location: [facility] Radiology Reading Room Procedure Note Interface, External [...] Report Verified Date/Time: 06/28/2018 13:37:49 Reading Location: [facility] Radiology Reading Room Performing Organization Address City/State/Zipcode Phone Number [facility] STONE ANALYSIS (06/28/2018 9:34 AM CDT) [...] analytical performance characteristics have been determined by [employer] [place]. It has not been cleared or approved by the US Food and Drug Administration. This assay has been validated pursuant to the CLIA regulations and is used for clinical purposes. Specimen Calculus Narrative Performed At Performing Lab [employer] [facility] *SPL [facility]uate [facility], [address] [place], [place] [id number] Jaret Sanchez MD, PhD Performing Organization Address City/State/[place] [address] INCORPORATED [address] [facility] Anaerobic culture (06/28/2018 9:28 AM CDT) Result No anaerobes isolated [facility] Specimen Calculus Performing Organization Address City/[facility] Phone Number [facility] [address] [place] [address] [phone] CENTER Surgically obtained culture + gram stain (06/28/2018 9:28 AM CDT) Result 2+ Enterococcus species (A) [facility] Result 1+ Katie albicans (A) [facility] Result 1+ Klebsiella pneumoniae ssp [facility] pneumoniae (A) [facility] CENTER Result 1+ Vancomycin resistant [facility] Enterococcus species () [facility] CENTER Specimen Calculus Organism Antibiotic Method Susceptibility [...] 1.5: Susceptible Enterococcus species Performing Organization Address City/State/[facility] Phone Number [facility] [address] [place] [address] [phone] [facility] in or 30 minute increments (06/28/2018 9:20 AM CDT) Specimen Narrative Performed At FINAL REPORT [employer] History: PCNL COMPARISON: None DISCUSSION: A total [...] MD Report Verified Date/Time:06/28/2018 09:43:00 Reading Location: [facility] Reading Room Procedure Note Interface, External Ris [...] Report Verified Date/Time: 06/28/2018 09:43:00 Reading Location: [facility] Radiology Reading Room Performing Organization Address [facility] Phone Number GE RIS Type and screen, automated (06/27/2018 8:51 PM CDT) ABO/RH AUTOMATED (BEAKER) A NEGATIVE [facility] Ab Scrn NEGATIVE [facility] Specimen Blood Performing Organization Address [facility] Phone Number [facility] [address] [place], [place] [phone] Hemoglobin and hematocrit (06/27/2018 1:50 PM CDT)Only the most recent of2 resultswithin the time period is included. Hemoglobin 6.5 (L) 11.2 - 15.7 GM/DL [facility] Hematocrit 23.1 (L) 34.1 - 44.9 % [facility] Specimen Blood Performing Organization Address [facility] Phone Number [facility] [address] [place], [place] [phone] CENTER Urine culture (06/24/2018 12:41 PM CDT)Only the most recent of4 resultswithin the time period is included. Result >100,000 col/mL Same organism has been isolated from cultures(s) of the same body site and collection date. Repeat identification and susceptibility testing performed only after consultation with the clinical microbiology laboratory. (A) [facility] Comment: [facility] Refer to previous culture of Enterococcus species Result 20-29,000 col/mL Same organism has been isolated from cultures(s) of the same body site and collection date. Repeat identification and susceptibility testing performed only after consultation with the clinical microbiology laboratory. (A) [facility] Comment: MEDICAL CENTER Refer to previous culture of Enterobacter cloacae Result 20-29,000 col/mL Pseudomonas [facility] aeruginosa () [facility] Result 20-29,000 col/mL Katie [facility] parapsilosis () [facility] Specimen Urine Organism Antibiotic Method Susceptibility Pseudomonas [...] aeruginosa Tobramycin >8: Resistant Performing Organization Address [facility]/Zipcode Phone Number [facility] [address] [place], [place] [phone] [place] Urinalysis w/Microscopic + Reflex to Culture (06/12/2018 2:36 PM CDT)Only the most recent of2 resultswithin the time period is included. Color, UA [place] [facility] Clarity, UA Hazy [facility] Specific [place], UA 1.013 1.001 - 1.035 [facility] pH, UA 6.0 5.0 - 8.0 [facility] Protein, UA 100 mg/dL (A) Negative [facility] Glucose, UA Negative Negative [facility] Ketones, UA Trace (A) Negative [facility] Bilirubin, UA Negative Negative [facility] Blood, UA Large (A) Negative [facility] Nitrite, UA Negative Negative [facility] Leukocytes, UA Large (A) Negative [facility] Urobilinogen, UA 0.2 0.2 - 1.0 mg/dL [facility] RBC, UA >182 /HPF [facility] WBC, UA 68 /HPF [facility] Mucus Rare [facility] Specimen Source [facility] Specimen Urine - Urine, Nephrostomy Performing Organization Address City/[facility]/Zipcode Phone Number [facility] [address] [place] [address] CENTER IR Percutaneous Nephrostomy - Ext. Drain Placement (06/12/2018 11:48 AM CDT) Specimen Narrative Performed At FINAL REPORT [facility] Fluoroscopic and ultrasound guided right nephroureterostomy tube placement, 06/12/2018. Clinical History: Obstructing stone at the junction of the right distal ureter and ileoconduit with hydronephrosis and urosepsis. Patient has a history of spina bifida/caudal regression. Modality: Sonography and fluoroscopy Model And Mold Maker Plaster:Faisal Felix MD. Engine Cowling Installer:None. Sedation: General anesthesia provided by the anesthesia [...] MD Report Verified Date/Time:06/12/2018 13:43:17 Reading Location: [place] [address] Angio Body Reading Room Procedure Note Interface, External Ris In - 06/12/2018 1:45 PM CDT FINAL REPORT Fluoroscopic and ultrasound guided right nephroureterostomy tube placement, 06/12/2018. Clinical History: Obstructing stone at the junction of the right distal ureter and ileoconduit with hydronephrosis and urosepsis. Patient has a history of spina bifida/caudal regression. Modality: Sonography and fluoroscopy Model And Mold Maker Plaster: Faisal Felix MD. Engine Cowling Installer: None. Sedation: General anesthesia provided by the [...] Verified Date/Time: 06/12/2018 13:43:17 Reading Location: [facility] P048 Angio Body Reading Room Performing Organization Address City/State/[facility] Phone Number GE RIS Body fluid culture + gram stain (06/12/2018 11:40 AM CDT) Result 2+ Enterobacter cloacae complex (A) [facility] Comment: [facility] CENTER ESBL Positive AmpC Positive Result 2+ Enterococcus species (A) [facility] Result 2+ Katie parapsilosis (A) [facility] Gram Stain Result No organisms seen [facility] Gram Stain Result 1+ White blood cells seen [facility] Specimen Urine - Urine, Surgically Obtained [...] species Vancomycin <=0.5: Susceptible Performing Organization Address City/[facility] Phone Number [address] [address] [place] CBC (Hemogram only) (06/12/2018 8:07 AM CDT) WBC 8.5 3.5 - 10.5 K/L [facility] RBC 4.23 3.93 - 5.22 M/L [facility] Hemoglobin 9.1 (L) 11.2 - 15.7 GM/DL [facility] Hematocrit 31.4 (L) 34.1 - 44.9 % [facility] MCV 74.2 (L) 79.4 - 94.8 fL [facility] MCH 21.5 (L) 25.6 - 32.2 pg [facility] MCHC 29.0 (L) 32.2 - 35.5 GM/DL [facility] RDW 20.4 (H) 11.7 - 14.4 % [facility] Platelets Comment: Platelet clumps 150 - 450 K/CU MM [facility] present, unable to report [facility] true platelet. Recommend recollect using EDTA tube and blue (Citrate) tube. spoke to RN ID:[id number] nRBC 0 0 - 0 /100 WBC [facility] Specimen Blood Performing Organization Address City/[facility]/Zipcode Phone Number [facility] [address] [place] [address] [phone] CENTER PT/aPTT (06/12/2018 6:07 AM CDT) Protime 14.4 11.7 - 14.7 seconds [facility] INR 1.1 <=5.9 [facility] PTT 30.8 22.5 - 36.0 seconds [facility] Specimen Blood Narrative Performed At [facility] RECOMMENDED COUMADIN/WARFARIN INR THERAPY RANGES STANDARD DOSE: 2.0 - 3.0 Includes: PROPHYLAXIS for venous thrombosis, systemic embolization; TREATMENT for venous thrombosis and/or pulmonary embolus. HIGH RISK: Target INR is 2.5-3.5 for patients with mechanical heart valves. Performing Organization Address City/[facility] Cent[facility]ode Phone Number [address] [address] [place] Screen, urine (06/11/2018 11:20 AM CDT) Preg Test, Ur Negative [facility] Specimen Urine - Urine, Urostomy Performing Organization Address [facility] Phone Number [address] [address] [place] Blood culture #2 (06/11/2018 4:55 AM CDT)Only the most recent of2 resultswithin the time period is included. Result No growth in 5 days [facility] Specimen Blood Performing Organization Address [facility] Cent[facility]ode Phone Number [address] [address] [place] Lactic acid, venous, whole blood (06/11/2018 4:54 AM CDT) Lactate, Venous 0.8 0.5 - 2.2 mmol/L [facility] Specimen Blood Narrative Performed At [facility] Effective 01/01/2016: Units/Reference Range Change New: 0.5-2.2 mmol/LPrevious: 5-20 mg/dL Performing Organization Address [facility] Cent[facility]ode Phone Number [facility] [address] CENTER aPTT (06/11/2018 4:54 AM CDT) PTT 35.9 22.5 - 36.0 seconds [facility] Specimen Blood Performing Organization Address [facility] Phone Number [address] [address] [phone] CENTER Prothrombin time/INR (06/11/2018 4:54 AM CDT) Protime 16.4 (H) 11.7 - 14.7 seconds [facility] INR 1.3 <=5.9 [facility] Specimen Blood Narrative Performed At [facility] RECOMMENDED COUMADIN/WARFARIN INR THERAPY RANGES STANDARD DOSE: 2.0 - 3.0 Includes: PROPHYLAXIS for venous thrombosis, systemic embolization; TREATMENT for venous thrombosis and/or pulmonary embolus. HIGH RISK: Target INR is 2.5-3.5 for patients with mechanical heart valves. Performing Organization Address [facility] Phone Number [address] [address] [place] Lactic acid, arterial, whole blood (06/11/2018 1:02 AM CDT) Lactate, Art 0.6Comment: Specimen 0.5 - 2.2 mmol/L [facility] slightly hemolyzed [facility] Specimen Blood, Arterial Narrative Performed At [facility] Effective 01/01/2016: Units/Reference Range Change New: 0.5-2.2 mmol/LPrevious: 5-20 mg/dL Performing Organization Address [facility] Phone Number [address] [address] CENTER Phosphorus (06/11/2018 1:02 AM CDT) Phosphorus 3.0Comment: Specimen 2.3 - 4.7 mg/dL [facility] moderately hemolyzed [facility] Specimen Blood Performing Organization Address [facility] Phone Number [facility] [address] [place] [address] CENTER Magnesium (06/11/2018 1:02 AM CDT) Magnesium 2.0Comment: Specimen 1.6 - 2.6 mg/dL [facility] hemolyzed [facility] Specimen Blood Performing Organization Address City/[facility]/Zipcode Phone Number [facility] [address] [place] [address] [phone] [place] Comprehensive metabolic panel (06/11/2018 1:02 AM CDT) Protein, Total 7.3Comment: Specimen 6.0 - 8.3 gm/dL [facility] hemolyzed [facility] Albumin 3.3 (L)Comment: Specimen 3.5 - 5.0 g/dL [facility] hemolyzed [facility] Alkaline Phosphatase 56 40 - 150 U/L [facility] Total Bilirubin 0.4Comment: Specimen 0.2 - 1.2 mg/dL [facility] hemolyzed [facility] Sodium 133 (L) 136 - 145 meq/L [facility] Potassium 4.5Comment: Specimen 3.5 - 5.1 meq/L [facility] hemolyzed [facility] Chloride 108 (H) 98 - 107 meq/L [facility] CO2 15 (L) 22 - 29 meq/L [facility] BUN 12 7 - 21 mg/dL [facility] Creatinine 0.61Comment: Specimen 0.57 - 1.25 mg/dL [facility] hemolyzed [facility] Glucose 92 70 - 105 mg/dL [facility] Calcium 8.3 (L) 8.4 - 10.2 mg/dL [facility] AST 35 (H)Comment: Specimen 5 - 34 U/L [facility] hemolyzed [facility] ALT 14Comment: Specimen 6 - 55 U/L [facility] moderately hemolyzed [facility] EGFR 133Comment: ESTIMATED mL/min/1.73 sq m [facility] GFR IS NOT ACCURATE [facility] CREATININE CLEARANCE IN PREDICTING GLOMERULAR FILTRATION RATE. ESTIMATED GFR IS NOT APPLICABLE FOR DIALYSIS PATIENTS. Specimen Blood Performing Organization Address City/[facility]/Zipcode Phone Number [facility] [address] [place] [address] CENTER Urinalysis w/ Microscopic (06/10/2018 11:37 PM CDT) Color, UA Yellow [facility] Clarity, UA Hazy [facility] Specific [place], UA 1.012 1.001 - 1.035 [facility] pH, UA 8.0 5.0 - 8.0 [facility] Protein, UA 50 mg/dL (A) Negative [facility] Glucose, UA Negative Negative [facility] Ketones, UA Negative Negative [facility] Bilirubin, UA Negative Negative [facility] Blood, UA Moderate (A) Negative [facility] Nitrite, UA Positive (A) Negative [facility] Leukocytes, UA Large (A) Negative [facility] Urobilinogen, UA 0.2 0.2 - 1.0 mg/dL [facility] RBC, UA 6 /HPF [facility] WBC, UA 10 /HPF [facility] Bacteria, UA Many [facility] Mucus [facility] Crystals, Urine Occasional [facility] Specimen Source Urine, Urostomy [facility] Specimen Urine - Urine, Urostomy Performing Organization Address City/[facility]/Zipcode Phone Number [place] [phone] [place] [address] [phone] CENTER after 04/30/2018 Insurance Payer Benefit Plan / Group Subscriber ID Type Phone Address MEDICARE MEDICARE A B xxxxxxxxxxx Medicare MEDICAID - MEDICAID MEDICAID [employer] xxxxxxxxx Medicaid MGD CARE Non-Contracted (Home) [id number] [place] [address] Advance Directives For more information, please contact:[facility] [place], [place] [phone] Code Status Date Activated Date Inactivated Comments Full Code 06/24/2018 12:08 PM This code status was determined by: Patient Full Code 06/10/2018 10:09 PM 06/13/2018 4:34 PM This code status was determined by: Patient
--- OUTSIDE RECORDS SUMMARY | 2019-05-01 17:03 | XMS REPORT | Continuity of Care Document ---
:1980 Author Organization [facility] Care Team Providers Name Role Phone [facility] Unavailable Unavailable Problems Problem Status Onset Classification Date Comments Source Date Reported Displacement of 02/01/20 02/02/[address] [facility] urinary stent, 19 Medical initial encounter Center Pseudomonas Active 02/01/20 Problem 02/11/2019 Urine, 01/31/[address] [facility] (organism) 19 Problem added by Discern Expert. [facility] HYDROEPHROSIS RT Active 01/31/[address] [facility] KIDNEY 19 Medical Center OTHER Active 01/23/[address] NEPHROSTOMY TUBE Active 01/23/[address] [facility] PULLED OUT 19 [facility] NEPHROSTOMY Active 01/23/[address] [facility] DISLODGEMENT 19 [facility] BEDDED OUTPATIENT/ Active 12/30/[address] [facility] PLEASE CONVERT RT 19 Medical N Center IRREGULAR Active 12/24/[address] [facility] MENSTRUATION, 19 Medical UNSPECIFIED Center KIDNEY STONES Active 12/14/19 [place] [id number] Medical Center MULTIPLE URINAL Active 12/14/[address] [facility] CALCULL [address] [place] [address] 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 aureus (organism) [id number],M H OPID [place] SEPSIS Active 04/11/[address] KIDNEY STONE Active 02/29/[address] Center Epigastric pain 11/14/19 02/12/[address] Vomiting, 11/07/19 02/12/[address] [facility] unspecified 18 Medical Center VOMITING Active 11/07/[address] Center Colonization with Active 09/30/19 [facility]/2017 [facility] [place] SMALL BOWEL Active 11/14/[address] [facility] OBSTRUCTION [address] [place] [address] Center Osteomyelitis of Active 03/07/20 Finding 10/08/[address] [facility] [address] left foot 15 [facility] [place] Urinary tract Active 06/26/20 Finding 10/08/[address] [facility] infectious disease 14 [facility] [place] Pain (finding) Active 09/18/19 Problem 02/11/2019 [place] [address] Medical [place],2.16. [id number],Rajan Hall KRYSTIN Mireles Blood coagulation Resolved Problem 02/11/[address] [facility] disorder Medical (disorder) Center,2.16. [id number],Rajan Hall KRYSTIN Mireles Colostomy Active Problem 02/11/[address] [facility] (procedure) Medical [place],2.16. [id number],Rajan Isabel Mireles Colostomy present Resolved Problem 02/11/[address] [facility] (finding) Medical Center,2.16. [id number],Rajan Isabel Mireles Congenital Active Problem 02/11/[address] [facility] hydrocephalus Medical (disorder) Center,2.16. [id number],Rajan Isabel Mireles Hypertensive Resolved Problem 02/11/[address] [facility] disorder, systemic Medical arterial Center,2.16. (disorder) [id number],Rajan Mireles Depressive Resolved Problem 02/11/[address] [facility] disorder Medical (disorder) Center,2.16. [id number],Rajan Mireles Nephrostomy Active Problem 02/11/[address] [facility] (procedure) Medical [place],2.16. [id number],Rajan MCCLELLAND Aline Pleural effusion Resolved Problem 02/11/[address] [facility] (disorder) Medical [place],2.16. [id number],Rajan [place] Pneumothorax Resolved Problem 02/11/[address] [facility] (disorder) Medical [place],2.16. [id number],Rajan [place] Spina bifida Resolved Problem 02/11/[address] [facility] (disorder) [facility],2.16. [id number],Rajan [place] Systemic infection Resolved Problem 02/11/[address] [facility] (disorder) [facility],2.16. 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 coli] Center Severe sepsis 11/07/[address] [facility] without septic Medical shock Center Functional 11/07/[address] [facility] quadriplegia Medical Center Unspecified spina 11/07/[address] [facility] bifida with Medical hydrocephalus Center Acute 11/07/[address] [facility] posthemorrhagic Medical anemia Center Acute kidney 11/07/[address] [facility] failure, Medical unspecified Center Personal history 11/07/[address] [facility] of other venous Medical thrombosis and Center embolism Patient's 11/07/[address] [facility] noncompliance with Medical other medical Center treatment and regimen Attention-deficit 11/07/[address] [facility] hyperactivity Medical disorder, Center unspecified type Presence of 11/07/[address] [facility] cerebrospinal Medical fluid drainage Center device Patient's other 11/07/[address] [facility] noncompliance with Medical medication regimen Center Hypoxemia 11/07/[address] [facility] Medical Center Enterococcus as 11/07/[address] [facility] the cause of Medical diseases Center classified elsewhere Pseudomonas 11/07/[address] [facility] (aeruginosa) Medical (mallei) Center (pseudomallei) as the cause of diseases classified elsewhere Anemia in other 11/07/[address] [facility] chronic diseases Medical classified Center elsewhere Other specified 11/07/[address] [facility] congenital Medical deformities of hip Center Shortness of 11/07/[address] [facility] breath Medical Center Calculus of kidney 12/20/2018 [facility],2.16. [id number] Pleural effusion, 12/20/[address] [facility] not elsewhere Medical classified Center,2.16. [id number] Constipation Active Finding 10/08/[address] [facility] [place] Abdominal pain Active Finding 10/08/[address] [facility] [place] UTI (urinary tract Active Finding 10/08/[address] [facility] infection) [facility] [place] H/O ureterostomy Active Finding [...] Finding 10/08/[address] [facility] [place] Asthma Active Finding 10/08/[address] [facility] Hypokalemia Active Finding 10/08/[address] [facility] [place] Hypomagnesemia Active Finding 10/08/[address] [facility] [place] Urinary tract Active Finding 10/08/[address] infection [facility] [place] [facility] current Active Finding 10/08/[address] use of [facility] anticoagulant [place] therapy History of Active Finding 10/08/[address] ureterostomy [facility] [place] Ileostomy present Active Finding 10/08/[address] [facility] [place] OTHER INTESTINAL Active [facility] OBSTRUCTION Medical [place] CALCULUS OF URETER Active [facility] OTHER ARTIFICIAL Active [facility] OPENINGS OF [facility] URINARY TRA Center URINARY TRACT Active [facility] INFECTION, SITE Medical NOT SPECIF [place] Medications Medication Details Route Status Patient Ordering Order Source Instructions Provider Date Dilaudid 0.5 mg, 0.25 Inactive 01/31[facility] mL, Route: IVP, 2019 Medical Drug form: INJ, Center ONCE, Dosing Weight 63.273, kg, Priority: STAT, Start date: 01/31/19 3:04:00 CDT, Stop date: 01/31/19 3:04:00 CDTNotes: Same as Dilaudid Hydromorphone 0.5 mg, Route: Inactive [facility] IVP, ONCE, 2019 Medical Dosing Weight Center 63.273, kg, Priority: STAT, Start date: 01/31/19 0:37:00 CDT, Stop date: 01/31/19 0:37:00 CDT Acetaminophen 1,000 mg, Inactive 01/31[facility] Route: PO, 2019 Medical ONCE, Dosing Center Weight 63.273, kg, Start date: 01/31/19 0:07:00 CDT, Stop date: 01/31/19 0:07:00 CDT ketOROLAC 15 15 mg, Route: Inactive [facility] mg/mL injectable IVP, Drug form: 2019 Medical solution INJ, ONCE, Center Dosing Weight 63.273, kg, Priority: STAT, Start date: 01/31/19 0:06:00 CDT, Stop date: 01/31/19 0:06:00 CDT ketOROLAC 15 15 mg, 1 mL, Inactive [facility] mg/mL injectable Route: IV, Drug 2019 Medical solution form: INJ, Q6H, Center Dosing Weight 63.273, kg, Start date: 01/23/19 12:00:00 CDT, Duration: 4 day, Stop date: 01/27/19 6:00:00 CDTNotes: (Same as:Toradol) IV bolus must be given >15 seconds. Give IM administration slowly and deeply into the muscle. Not for use > 4 days. sennosides, CORRECTION 17.2 mg, 2 tab, No Longer [place] Route: PO, Drug Active 2018 Medical Form: TAB, Center Dosing Weight 64.545, kg, Bedtime, Start date: 01/22/19 21:00:00 CDT, Duration: 30 day, Stop date: 02/20/19 21:00:00 CDTNotes: (Same as: Senokot) Melatonin 3 mg, 1 tab, No Longer [place] Route: PO, Drug Active 2018 Medical form: TAB, [place] Bedtime, Dosing Weight 63.273, kg, PRN Sleep, Start date: 01/22/19 19:39:00 CDT, Duration: 30 day, Stop date: 02/21/19 19:38:00 CDTNotes: (Same as: Melatonin) albuterol 2.49 mg, 3 mL, No Longer [facility] Route: NEB2018 Medical Drug form: [place] SOLN, RQID, Start date: 01/22/19 11:00:00 CDT, Duration: 30 day, Stop date: 02/21/19 7:00:00 CDTNotes: SEE RT DOCUMENTATION (Same as: Proventil) Pulmicort 0.25 mg, 2 mL, No Longer [facility] Respules Route: NEB2018 Medical Drug form: [place] SUSP, RBID, Start date: 01/22/19 9:38:00 CDT, Duration: 30 day, Stop date: 02/21/19 8:00:00 CDTNotes: (Same As: Pulmicort respule). Sertraline 100 mg, 1 tab, No Longer [facility] Route: PO, Drug Active 2018 Medical form: TAB, BID, Center Dosing Weight 64.545, kg, Start date: 01/22/19 9:00:00 CDT, Duration: 30 day, Stop date: 02/20/19 17:00:00 CDTNotes: (Same as: Zoloft) Miralax 17 gm, 1 pkt, No Longer [facility] Route: PO, Drug Active 2018 Medical form: PWDR, Center BID, Dosing Weight 64.545, kg, Start date: 01/22/19 9:00:00 CDT, Duration: 30 day, Stop date: 02/20/19 17:00:00 CDTNotes: Dissolve in 8 oz of water or juice. (Same as: Miralax) Minocycline 100 mg, 1 cap, No Longer [place] Route: PO, Drug Active 2018 Medical form: CAP, Center Q12H, Dosing Weight 64.545, kg, Start date: 01/22/19 9:00:00 CDT, Duration: 30 day, Stop date: 02/20/19 21:00:00 CDTNotes: (Same as:Minocin) No milk/antacids/i tigist. Breo Ellipta 200 1 puff, Route: Inactive [place] mcg-25 mcg/inh INHALATION, 2019 Medical inhalation Drug Form: Center powder PWDR, Dosing Weight 64.545, kg, Daily, Start date: 01/22/19 9:00:00 CDT, Duration: 30 day, Stop date: 02/20/19 9:00:00 CDT Fluconazole 100 mg, 1 tab, No Longer [facility] Route: PO, Drug Active 2018 Medical form: TAB, Center Daily, Dosing Weight 64.545, kg, Start date: 01/22/19 9:00:00 CDT, Duration: 30 day, Stop date: 02/20/19 9:00:00 CDT, ABX Indication: Open Wound ProphylaxisNote s: (Same as: Diflucan) ferrous sulfate 325 mg, 1 tab, No Longer [facility] Route: PO, Drug Active 2018 Medical form: ECTAB, Center Daily, Dosing Weight 64.545, kg, Start date: 01/22/19 9:00:00 CDT, Duration: 30 day, Stop date: 02/20/19 9:00:00 CDTNotes: Give with food. "Do Not Crush" Amlodipine 5 mg, 1 tab, No Longer [facility] Route: PO, Drug Active 2018 Medical form: TAB, Center Daily, Dosing Weight 64.545, kg, Start date: 01/22/19 9:00:00 CDT, Duration: 30 day, Stop date: 02/20/19 9:00:00 CDTNotes: (Same as: Norvasc) Docusate 100 mg, 1 cap, No Longer [facility] Route: PO, Drug Active 2019 Medical form: CAP, BID, Center Dosing Weight 64.545, kg, Start date: 01/22/19 9:00:00 CDT, Duration: 30 day, Stop date: 02/20/19 17:00:00 CDTNotes: (Same as: Colace) (Do Not Crush) Tramadol 50 mg, 1 tab, No Longer [facility] Route: PO, Drug Active 2018 Medical form: TAB, Q6H, Center Dosing Weight 64.545, kg, PRN Pain Score 1-3, Start date: 01/22/19 6:42:00 CDT, Duration: 30 day, Stop date: 02/21/19 6:41:00 CDTNotes: Not to exceed 400mg/day. (Same As: Ultram) Amoxicillin 875 1 tab, Route: No Longer [place] MG / Clavulanate PO, Drug Form: Active 2019 Medical 125 MG Oral TAB, Dosing Center Tablet Weight 64.545, kg, [id number], Start date: 01/22/19 6:00:00 CDT, Duration: 30 day, Stop date: 02/20/19 18:00:00 CDTNotes: With food. (Same as: Augmentin 875) Benadryl 25 mg, 1 cap, No Longer [facility] Route: PO, Drug Active 2018 Medical form: CAP, BID, Center Dosing Weight 64.545, kg, PRN as needed for allergy symptoms, Start date: 01/22/19 5:50:00 CDT, Duration: 30 day, Stop date: 02/21/19 5:49:00 CDTNotes: (Same as: Benadryl) FeroSul 325 mg TK 1 T PO D Active [facility] oral tablet 2019 Medical Center zolpidem 5 mg TK 1 T PO QHS Active [facility] oral tablet 2019 [facility] Amoxicillin 875 TK 1 T PO Q [address] [facility] MG / Clavulanate H 2019 [facility] 125 MG Oral Center Tablet fluconazole 100 TK 1 T PO Q [address] [facility] mg oral tablet HOURS 2019 [facility] minocycline 100 100 mg=1 cap, Active [facility] mg oral capsule PO, Q12H, # 20 2019 Medical cap, 0 Center Refill(s) Acetaminophen 650 mg, 2 tab, No Longer [facility] Route: PO, Drug Active 2018 Medical form: TAB, Q4H, Center Dosing Weight 64.545, kg, PRN Pain 1-3/Temp > 100.4 F, Start date: 01/22/19 5:48:00 CDT, Duration: 30 day, Stop date: 02/21/19 5:47:00 CDTNotes: Do not exceed 4 gm/day. (Same as: Tylenol) Bisacodyl 10 mg, 1 supp, No Longer [facility] Route: [place], Drug Active 2018 Medical form: SUPP, Center Daily, Dosing Weight 64.545, kg, PRN Constipation, Start date: 01/22/19 5:48:00 CDT, Duration: 30 day, Stop date: 02/21/19 5:47:00 CDTNotes: (Same As: Dulcolax, Bisco-Lax) Ondansetron 4 mg, 2 mL, No Longer [facility] Route: IVP, Active 2018 Medical Drug form: INJ, Center Q8H, Dosing Weight 64.545, kg, PRN Nausea & Vomiting, Start date: 01/22/19 5:48:00 CDT, Duration: 30 day, Stop date: 02/21/19 5:47:00 CDTNotes: (Same as: Zofran) MEDICATION WASTE Product Size: 4 mg Product Wasted: ___ mg Dextrose 50% 25 gm, 50 mL, No Longer [facility] Syringe Route: IVP, Active 2018 Medical Drug Form: INJ, Center Dosing Weight 64.545, kg, PRN, PRN Blood Glucose Results, Start date: 01/22/19 5:48:00 CDT, Duration: 30 day, Stop date: 02/21/19 5:47:00 CDT Glucagon 1 mg, Route: No Longer [place] IM, Drug form: Active 2019 Medical PDR/INJ, PRN, Center Dosing Weight 64.545, kg, PRN Blood Glucose Results, Start date: 01/22/19 5:48:00 CDT, Duration: 30 day, Stop date: 02/21/19 5:47:00 CDT Ondansetron 4 mg, 2 mL, Inactive [place] Route: IVP, 2019 Medical Drug form: INJ, Center ONCE, Dosing Weight 64.545, kg, Priority: STAT, Start date: 01/22/19 2:48:00 CDT, Stop date: 01/22/19 2:48:00 CDTNotes: (Same as: Zofran) MEDICATION WASTE Product Size: 4 mg Product Wasted: 0 mg Hydromorphone 1 mg, 0.5 mL, Inactive [place] Route: IVP, 2018 Medical Drug form: INJ, Center ONCE, Dosing Weight 64.545, kg, Priority: STAT, Start date: 01/22/19 2:48:00 CDT, Stop date: 01/22/19 2:48:00 CDTNotes: Same as Dilaudid Docusate Sodium 2 tab, Route: Inactive [place] 50 MG / PO, Drug Form: 2019 Medical sennosides, CORRECTION TAB, Dosing Center 8.6 MG Oral Weight 64.545, Tablet kg, BID, Start date: 01/15/19 17:00:00 CDT, Duration: 30 day, Stop date: 02/14/19 9:00:00 CDT Ondansetron 4 MG 4 mg=1 tab, PO, Active [place] Oral Tablet BID, # 10 tab, 2019 Medical [Zofran] 0 Refill(s) Center tramadol 100 mg=2 tab, Active [place] hydrochloride 50 PO, Q6H, PRN 2019 Medical MG Oral Tablet Pain Score 1-3, Center X 7 day, # 20 tab, 0 Refill(s) sennosides, CORRECTION 17.2 mg=2 tab, Active [place] 8.6 MG Oral PO, BID, X 10 2019 Medical Tablet day, # 40 tab, Center 0 Refill(s) Oxycodone 5 mg=1 tab, PO, Active [place] Hydrochloride 5 Q4H, PRN Pain 2019 Medical MG Oral Tablet Score 4-6, 0 Center Refill(s) minocycline 100 100 mg=1 cap, Active [place] mg oral capsule PO, [id number], X 2019 Medical 10 day, # 20 Center cap, 0 Refill(s) fluconazole 100 100 mg=1 tab, Active [place] mg oral tablet PO, [id number], X 2019 Medical 14 day, # 14 Center tab, 0 Refill(s) Amoxicillin 875 1 tab, PO, Active [facility] MG / Clavulanate [id number], 2019 Medical 125 MG Oral Pediatric Center Tablet Dosing, X 10 day, # 20 tab, 0 Refill(s) sertraline 100 100 mg=1 tab, Active [facility] mg oral tablet PO, BID, 0 2019 Medical Refill(s) [place] Senokot 17.2 mg, 2 tab, Inactive [place] Route: PO, Drug 2018 Medical form: TAB, BID, Center Start date: 01/15/19 12:00:00 CDT, Duration: 30 day, Stop date: 02/14/19 9:00:00 CDTNotes: (Same as: Senokot) Aspirin 325 mg, 1 tab, Inactive [place] Route: PO, Drug 2018 Medical form: TAB, BID, Center Dosing Weight 64.545, kg, Start date: 01/15/19 9:00:00 CDT, Duration: 30 day, Stop date: 02/13/19 17:00:00 CDTNotes: Take with food. Benadryl 25 mg, 1 cap, Inactive [place] Route: PO, Drug 2019 Medical form: CAP, BID, Center Dosing Weight 64.545, kg, Start date: 01/15/19 9:00:00 CDT, Duration: 30 day, Stop date: 02/13/19 17:00:00 CDTNotes: (Same as: Benadryl) Amlodipine 5 mg, 1 tab, Inactive [place] Route: PO, Drug 2018 Medical form: TAB, Center Daily, Dosing Weight 64.545, kg, Start date: 01/15/19 9:00:00 CDT, Duration: 30 day, Stop date: 02/13/19 9:00:00 CDTNotes: (Same as: Norvasc) potassium 40 mEq, 2 tab, No Longer [place] chloride Route: PO, Drug Active 2018 Medical form: ERTAB, Center Daily, Dosing Weight 64.545, kg, Start date: 01/14/19 20:36:00 CDT, Duration: 14 day, Stop date: 01/27/19 21:00:00 CDTNotes: (Same as: K-Dur 20) "Do Not Crush" Give with food and full glass of water For patients unable to swallow tablet, dissolve in one half glass of water. Allow about 2 minutes for the tablets to disintegrate. Stir before giving to prepare slurry and administer. Please exclude Patients with feeding tube less than 14 Greek (Dobhoff, J-tube etc) and pediatric and patients. Sertraline 100 mg, 1 tab, No Longer [place] Route: PO, Drug Active 2018 Medical form: TAB, BID, Center Dosing Weight 64.545, kg, Start date: 01/14/19 17:00:00 CDT, Duration: 30 day, Stop date: 02/13/19 9:00:00 CDTNotes: (Same as: Zoloft) Docusate Sodium 200 mg, 2 cap, No Longer [place] 100 MG Oral Route: PO, Drug Active 2018 Medical Capsule form: CAP, BID, Center Dosing Weight 64.545, kg, Start date: 01/14/19 17:00:00 CDT, Duration: 30 day, Stop date: 02/13/19 9:00:00 CDTNotes: (Same as: Colace) (Do Not Crush) Miralax 17 gm, 1 pkt, No Longer [place] Route: PO, Drug Active 2018 Medical form: PWDR, Center BID, Dosing Weight 64.545, kg, Start date: 01/14/19 17:00:00 CDT, Duration: 30 day, Stop date: 02/13/19 9:00:00 CDTNotes: Dissolve in 8 oz of water or juice. (Same as: Miralax) albuterol 2.49 mg, 3 mL, No Longer [place] Route: NEB, Active 2018 Medical Drug form: Center SOLN, RQID, PRN Wheezing, Start date: 01/14/19 11:03:00 CDT, Duration: 30 day, Stop date: 02/13/19 11:02:00 CDTNotes: SEE RT DOCUMENTATION (Same as: Proventil) albuterol 90 2 puff, Route: Inactive [place] mcg/inh INHALATION, 2019 Medical inhalation Dosing Weight Center aerosol 64.545, kg, QID, PRN Wheezing, Start date: 01/14/19 10:55:00 CDT, Duration: 30 day, Stop date: 02/13/19 10:54:00 CDT Zofran ODT 4 mg, 1 tab, No Longer [place] Route: PO, Drug Active 2018 Medical form: TABDIS, Center Q8H, Dosing Weight 64.545, kg, PRN Nausea, Start date: 01/14/19 10:43:00 CDT, Duration: 30 day, Stop date: 02/13/19 10:42:00 CDTNotes: (Same as: Zofran ODT) Diflucan 100 mg, 1 tab, No Longer [facility] Route: PO, Drug Active 2018 Medical form: TAB, Center [id number], Dosing Weight 64.545, kg, Start date: 01/14/19 10:00:00 CDT, Duration: 7 day, Stop date: 01/20/19 10:00:00 CDT, ABX Indication: Genital Tract InfectionNotes: (Same as: Diflucan) Zofran 4 mg, 2 mL, No Longer [facility] Route: IM, Drug Active 2018 Medical form: INJ, Q8H, Center Dosing Weight 64.545, kg, PRN Nausea, Start date: 01/13/19 20:16:00 CDT, Duration: 30 day, Stop date: 02/12/19 20:15:00 CDTNotes: (Same as: Zofran) MEDICATION WASTE Product Size: 4 mg Product Wasted: 0 mg Minocycline 100 mg, 1 cap, No Longer [place] Route: PO, Drug Active 2018 Medical form: CAP, Center [id number], Dosing Weight 64.545, kg, Start date: 01/13/19 15:00:00 CDT, Duration: 30 day, Stop date: 02/12/19 3:00:00 CDTNotes: (Same as:Minocin) No milk/antacids/i tigist. Acetaminophen 1 tab, Route: No Longer [place] 300 MG / Codeine PO, Drug Form: Active 2019 Medical Phosphate 30 MG TAB, Dosing Center Oral Tablet Weight 64.545, [Tylenol with kg, Q6H-02, PRN Codeine #3] Pain 1-3/Temp > 100.4 F, Start date: 01/13/19 13:42:00 CDT, Duration: 30 day, Stop date: 02/12/19 13:41:00 CDTNotes: Do not exceed 4gm/day of acetaminophen. (Same as: Tylenol with Codeine # 3) Enoxaparin 40 mg, 0.4 mL, No Longer [place] Route: SUB-Q, Active 2018 Medical Drug form: INJ, Center [id number], Dosing Weight 64.545, kg, Start date: 01/13/19 9:00:00 CDT, Duration: 30 day, Stop date: 02/11/19 9:00:00 CDTNotes: (Same as: Lovenox) Amoxicillin / 1 tab, Route: No Longer [facility] Clavulanate PO, Drug form: Active 2019 Medical TAB, [id number], Center Dosing Weight 64.545, kg, Start date: 01/13/19 9:00:00 CDT, Duration: 30 day, Stop date: 02/11/19 21:00:00 CDT, Pediatric DosingNotes: With food. (Same as: Augmentin 875) Saline Flush 10 mL, Route: No Longer [place] 0.9% IVP, Drug Form: Active 2019 Medical INJ, Dosing Center Weight 64.545, kg, Q8H, Start date: 01/13/19 0:00:00 CDT, Duration: 30 day, Stop date: 02/11/19 16:00:00 CDTNotes: (Same as: BD Posiflush) Ambien 5 mg, 1 tab, No Longer [place] Route: PO, Drug Active 2018 Medical form: TAB, Center Bedtime, Dosing Weight 64.545, kg, PRN as needed for insomnia, Start date: 01/12/19 21:28:00 CDT, Duration: 30 day, Stop date: 02/11/19 21:27:00 CDTNotes: (Same As: Ambien) Oxycodone 5 mg, 1 tab, No Longer [facility] Hydrochloride 5 Route: PO, Drug Active 2018 Medical MG Oral Tablet form: TAB, Q4H, Center Dosing Weight 64.545, kg, PRN Pain Score 4-6, Start date: 01/12/19 21:28:00 CDT, Duration: 30 day, Stop date: 02/11/19 21:27:00 CDTNotes: (Same as: Roxicodone) Famotidine 20 mg, 1 tab, No Longer [facility] Route: PO, Drug Active 2018 Medical form: TAB, Center Q12H, Dosing Weight 64.545, kg, Start date: 01/12/19 21:00:00 CDT, Duration: 30 day, Stop date: 02/11/19 9:00:00 CDTNotes: (Same as: Pepcid) Lidocaine 5 mL, Route: No Longer [place] Hydrochloride 10 INTRADERM, Drug Active 2018 Medical MG/ML Injectable Form: INJ, Center Solution Dosing Weight 64.545, kg, ONCALL, For PICC line insertion., Start date: 01/12/19 18:00:00 CDT, Duration: 1 doses or timesNotes: Preservative free. (Same as: Xylocaine MPF) Acetaminophen 650 mg, 2 tab, No Longer [facility] Route: PO, Drug Active 2018 Medical form: TAB, Q6H, Center Dosing Weight 64.545, kg, Start date: 01/12/19 18:00:00 CDT, Duration: 30 day, Stop date: 02/11/19 12:00:00 CDTNotes: Do not exceed 4 gm/day. (Same as: Tylenol) sugammadex 200 mg, 2 mL, No Longer [place] Route: IV, Drug Active 2018 Medical form: SOLN, Center ONCALL, Start date: 01/12/19 18:00:00 CDT, Duration: 1 doses or times, Stop date: 01/12/19 18:01:00 CDTNotes: (Same as: Bridion) Saline Flush 10 mL, Route: No Longer [place] 0.9% IVP, Drug Form: Active 2019 Medical INJ, Dosing Center Weight 64.545, kg, PRN, PRN Line Flush, Start date: 01/12/19 17:12:00 CDT, Duration: 30 day, Stop date: 02/11/19 17:11:00 CDTNotes: (Same as: BD Posiflush) Docusate Sodium 100 mg, 1 cap, No Longer [place] 100 MG Oral Route: PO, Drug Active 2018 Medical Capsule form: CAP, BID, Center Dosing Weight 64.545, kg, Start date: 01/12/19 17:00:00 CDT, Duration: 30 day, Stop date: 02/11/19 9:00:00 CDTNotes: (Same as: Colace) (Do Not Crush) fluconazole 400 mg, 200 mL, No Longer [place] Route: IV, Drug Active 2018 Medical form: INJ, Center ONCE, Dosing Weight 64.545, kg, Start date: 01/12/19 15:51:00 CDT, Stop date: 01/12/19 15:51:00 CDT, ABX Indication: Other (specify in Comments)Notes: (Same as: Diflucan) Fluconazole 400 mg, 200 mL, No Longer [place] Route: IV, Drug Active 2018 Medical form: INJ, Center ONCE, Dosing Weight 64.545, kg, Start date: 01/12/19 15:43:00 CDT, Stop date: 01/12/19 15:43:00 CDT, ABX Indication: Other (specify in Comments)Notes: (Same as: Diflucan) sugammadex Route: IV, Drug Inactive [place] (ANES) form: SOLN, 2019 Medical ONCE, Stop Center date: 01/12/19 15:02:00 CDT Ampicillin 1 gm, Route: Inactive [place] IVPB, Drug 2019 Medical form: PDR/INJ, Center ABXQ6H, Dosing Weight 64.545, kg, Start date: 01/12/19 15:00:00 CDT, Duration: 1 doses or times, Stop date: 01/12/19 15:00:00 CDTNotes: (Same as: Vera) MEDICATION WASTE Product Size: 1000 mg Product Wasted: ___ mg Promethazine 12.5 mg, 0.5 No Longer [place] mL, Route: Active 2018 Medical IVPB, Drug Center form: INJ, Q4H, Dosing Weight 64.545, kg, PRN Nausea & Vomiting, Start date: 01/12/19 14:48:00 CDT, Duration: 30 day, Stop date: 02/11/19 14:47:00 CDTNotes: Do not give IV push. (Same as: Phenergan) Ondansetron 4 mg, 2 mL, No Longer [place] Route: IVP, Active 2018 Medical Drug form: INJ, Center Q6H, Dosing Weight 64.545, kg, PRN Nausea & Vomiting, Start date: 01/12/19 14:48:00 CDT, Duration: 30 day, Stop date: 02/11/19 14:47:00 CDTNotes: (Same as: Zofran) MEDICATION WASTE Product Size: 4 mg Product Wasted: ___ mg Hydromorphone 0.3 mg, 0.[address] [facility] mL, Route: IVP, Active 2019 Medical Drug form: INJ, Center Q3H, Dosing Weight 64.545, kg, PRN Pain Score 7-10, Start date: 01/12/19 14:48:00 CDT, Duration: 30 day, Stop date: 02/11/19 14:47:00 CDTNotes: Same as Dilaudid Calcium Chloride 1,000 mL, Rate: No Longer [place] 0.0014 MEQ/ML / 125 ml/hr, Active 2019 Medical Potassium Infuse over: 8 Center Chloride 0.004 hr, Route: IV, MEQ/ML / Sodium Dosing Weight Chloride 0.103 64.545 kg, MEQ/ML / Sodium Total Volume: Lactate 0.028 1,000, Start MEQ/ML date: 01/12/19 Injectable 14:48:00 CDT, Solution Duration: 30 day, Stop date: 02/11/19 14:47:00 CDT, 1.72, m2 tramadol 100 mg, 2 tab, No Longer [place] hydrochloride 50 Route: PO, Drug Active 2018 Medical MG Oral Tablet form: TAB, Q6H, Center Dosing Weight 64.545, kg, PRN Pain Score 1-3, Start date: 01/12/19 14:33:00 CDT, Duration: 30 day, Stop date: 02/11/19 14:32:00 CDTNotes: Not to exceed 400mg/day. (Same As: Razia) acetaminophen Route: IV, Drug Inactive [place] (ANES) form: INJ, 2018 Medical ONCE, Stop Center date: 01/12/19 13:20:00 CDT propofol (ANES) Route: IV, Drug Inactive [place] 10 mg form: INJ, 2018 Medical Start date: Center 01/12/19 12:49:00 CDT, Stop date: 01/12/19 13:49:00 CDT ondansetron Route: IV, Drug Inactive [place] (ANES) form: INJ, 2018 Medical ONCE, Stop Center date: 01/12/19 12:44:00 CDT sodium citrate Route: PO, Drug Inactive [place] (ANES) Form: INJ, 2018 Medical ONCE, Stop Center date: 01/12/19 12:39:00 CDT hydromorphone Route: IV, Drug Inactive [place] (ANES) form: INJ, 2018 Medical ONCE, Stop Center date: 01/12/19 12:39:00 CDT Ondansetron 4 mg, 2 mL, Inactive [place] Route: IVP, 2018 Medical Drug form: INJ, Center ONCE, Dosing Weight 64.545, kg, PRN Nausea & Vomiting, Start date: 01/12/19 12:37:00 CDTNotes: (Same as: Lisa) MEDICATION WASTE Product Size: 4 mg Product Wasted: ___ mg Promethazine 6.25 mg, 0.25 Inactive [place] mL, Route: 2019 Medical IVPB, Drug Center form: INJ, ONCE, Dosing Weight 64.545, kg, PRN Nausea & Vomiting, Start date: 01/12/19 12:37:00 CDTNotes: Do not give IV push. (Same as: Phenergan) Hydralazine 10 mg, 0.5 mL, Inactive [place] Route: IVP2018 Medical Drug form: INJ, Center Q20Min, Dosing Weight 64.545, kg, PRN Elevated BP, Start date: 01/12/19 12:37:00 CDT, Duration: 2 doses or times, Stop date: 01/13/19 0:00:00 CDTNotes: (Same as: Apresoline) Push over 5 minutes Metoprolol 1 mg, 1 mL, Inactive [place] Route: IVP2018 Medical Drug form: INJ, Center Q5Min, Dosing Weight 64.545, kg, PRN Other -See Comment, Start date: 01/12/19 12:37:00 CDT, Duration: 5 doses or times, Stop date: 01/13/19 0:00:00 CDTNotes: (Same as: Lopressor) Push over 2 minutes Albuterol 0.83 2.49 mg, 3 mL, Inactive [place] MG/ML Inhalant Route: NEB, 2018 Medical Solution Drug form: Center SOLN, Q20Min, Dosing Weight 64.545, kg, PRN Wheezing, Priority: STAT, Start date: 01/12/19 12:37:00 CDT, Stop date: 01/13/19 0:00:00 CDTNotes: SEE RT DOCUMENTATION (Same as: Proventil) Diphenhydramine 12.5 mg, 0.25 Inactive [place] mL, Route: IVP2018 Medical Drug form: INJ, Center Q6H, Dosing Weight 64.545, kg, PRN Itching, Start date: 01/12/19 12:37:00 CDT, Stop date: 01/13/19 0:00:00 CDTNotes: (Same as: Benadryl) Naloxone 0.4 mg, 1 mL, Inactive [place] Route: IVP, 2018 Medical Drug form: INJ, Center Q2MIN, Dosing Weight 64.545, kg, PRN Narcotic Reversal, Start date: 01/12/19 12:37:00 CDT, Duration: 8 doses or times, Stop date: Limited # of timesNotes: Same as Narcan Flumazenil 0.2 mg, 2 mL, Inactive [place] Route: IVP2018 Medical Drug form: INJ, Center PRN, Dosing Weight 64.545, kg, PRN Benzodiazepine Reversal, Initial dose, Start date: 01/12/19 12:37:00 CDT, Stop date: 01/13/19 0:00:00 CDTNotes: (Same as: Romazicon) Oxycodone 10 mg, 2 tab, Inactive [place] Route: PO, Drug 2018 Medical form: TAB, Q4H, Center Dosing Weight 64.545, kg, PRN Pain Score 7-10, Start date: 01/12/19 12:37:00 CDT, Stop date: 01/13/19 0:00:00 CDTNotes: (Same as: Roxicodone) Hydromorphone 0.5 mg, 0.25 Inactive [place] mL, Route: IVP2018 Medical Drug form: INJ, Center Q5Min, Dosing Weight 64.545, kg, PRN Pain Score 7-10, Start date: 01/12/19 12:37:00 CDT, Duration: 4 doses or times, Stop date: 01/13/19 0:00:00 CDTNotes: Same as Dilaudid fluconazole Route: IV, Drug Inactive [place] (ANES) 2 mg form: INJ, 2018 Medical Start date: [place] 01/12/19 11:56:00 CDT, Stop date: 01/12/19 12:56:00 CDT tobramycin Route: IV, Drug Inactive [place] (ANES) 40 mg form: INJ, 2018 Medical Start date: [place] 01/12/19 11:52:00 CDT, Stop date: 01/12/19 12:52:00 CDT ampicillin Route: IV, Drug Inactive [place] (ANES) 1000 mg form: INJ, 2018 Medical Start date: Center 01/12/19 11:50:00 CDT, Stop date: 01/12/19 12:50:00 CDT Lactated Ringers Route: IV, Inactive [place] Injection IV Total Volume: 2018 Medical (ANES) 500 mL 500, Start Center date: 01/12/19 11:50:00 CDT, Stop date: 01/12/19 12:50:00 CDT famotidine Route: IV, Drug Inactive [place] (ANES) form: INJ, 2018 Medical ONCE, Stop Center date: 01/12/19 11:18:00 CDT alfentanil Route: IV, Drug Inactive [facility] (ANES) + Sodium form: INJ, 2018 Medical Chloride 0.9% IV ONCE, Stop Center (ANES) 100 mL date: 01/12/19 11:18:00 CDT dexamethasone Route: IV, Drug Inactive [place] (ANES) form: INJ, 2018 Medical ONCE, Stop Center date: 01/12/19 11:13:00 CDT midazolam (ANES) Route: IV, Drug Inactive [place] form: SOLN, 2018 Medical ONCE, Stop Center date: 01/12/19 11:07:00 CDT propofol (ANES) Route: IV, Drug Inactive [place] form: INJ, 2018 Medical ONCE, Stop Center date: 01/12/19 11:07:00 CDT lidocaine (ANES) Route: IV, Drug Inactive [place] form: INJ, 2018 Medical ONCE, Stop Center date: 01/12/19 11:07:00 CDT rocuronium Route: IV, Drug Inactive [place] (ANES) form: INJ, 2018 Medical ONCE, Stop Center date: 01/12/19 11:07:00 CDT fentaNYL (ANES) Route: IV, Drug Inactive [place] form: INJ, 2018 Medical ONCE, Stop Center date: 01/12/19 11:07:00 CDT Lactated Ringers Route: IV, Inactive [place] Injection IV Total Volume: 2018 Medical (ANES) 1000 mL 1,000, Start Center date: 01/12/19 9:23:00 CDT, Stop date: 01/12/19 10:23:00 CDT Mirena 1 ea, Route: Inactive [facility] Intrauteral, 2019 Medical Drug form: DEV, Center ONCE, Dosing Weight 64.545, kg, Start date: 01/12/19 8:05:00 CDT, Stop date: 01/12/19 8:05:00 CDTNotes: Same as Mirena Benadryl 25 mg, PO, BID, Active [facility] 0 Refill(s) 2019 Medical Center amoxicillin 500 500 mg=1 tab, No Longer [facility] mg oral tablet PO, BID, 0 Active 2019 Medical Refill(s) Center Amoxicillin 0 Refill(s) Inactive [facility] 2019 Medical Center sertraline 100 100 mg=1 tab, No Longer [facility] mg oral tablet PO, BID, 0 Active 2019 Medical Refill(s) Center Aspirin 325 mg, PO, Active [facility] BID, 0 2019 Medical Refill(s) [place] Miralax 17 gm, PO, BID, Active [facility] 0 Refill(s) 2019 [facility] Xarelto See Active [facility] Instructions, 2019 Medical MEDICATION HAS Center BEEN STOPPED., 0 Refill(s) Unknown Home PO, Daily, Active [facility] Medication BOOST 2019 Medical SUPPLEMENT Center EVERY MORNING., Refill(s) 0 Mirena 1 ea, Route: No Longer [facility] Intrauteral, Active 2019 Medical ONCE, Dosing Center Weight 66.506, kg, Start date: 01/05/19 19:25:00 CDT, Stop date: 01/05/19 19:25:00 CDT polyethylene 17 gm, PO, Active [facility] glycol 3350 oral Daily, X 7 day, 2019 Medical powder for # 12 ea, 0 Center reconstitution Refill(s) nitrofurantoin 100 mg=1 cap, Active [facility] macrocrystals-mo PO, [id number], X 2019 Medical nohydrate 100 mg 5 day, # 10 Center oral capsule cap, 0 (Macrobid) Refill(s) ferrous sulfate 325 mg=1 tab, Active [place] 325 mg oral PO, Daily, # 30 2019 Medical enteric coated tab, 0 Center tablet Refill(s) Docusate Sodium 100 mg=1 cap, Active [facility] 100 MG Oral PO, BID, # 28 2019 Medical Capsule cap, 0 Center Refill(s) ciprofloxacin 500 mg=1 tab, Active [facility] 500 mg oral PO, Q12H, X 5 2019 Medical tablet day, # 10 tab, Center 0 Refill(s) Ondansetron 4 MG 4 mg=1 tab, PO, Active [facility] Oral Tablet BID, # 10 tab, 2019 Medical [Zofran] 0 Refill(s) [place] molasses 240 mL, Route: Inactive [place], Drug Form: 2019 Medical SYRP, Dosing Center Weight 66.506, kg, ONCE, Milk of Molasses Enema, Start date: 12/18/18 10:32:00 CDT, Stop date: 12/18/18 10:32:00 CDTNotes: (Same as:Molasses) Cipro 500 mg, 1 tab, No Longer [place] Route: PO, Drug Active 2018 Medical form: TAB, Center Q12H, Start date: 12/18/18 6:00:00 CDT, Duration: 6 day, Stop date: 12/23/18 18:00:00 CDT, ABX Indication: Urinary Tract InfectionNotes: May interfere w/enteral feedings - Take 1 hr before or 2 hrs after antacids, dairy pdt & minerals. On empty stomach. Miralax 17 gm, 1 pkt, No Longer [facility] Route: PO, Drug Active 2018 Medical form: PWDR, Center BID, Dosing Weight 66.506, kg, Start date: 12/17/18 9:30:00 CDT, Duration: 30 day, Stop date: 01/16/19 9:00:00 CDTNotes: Dissolve in 8 oz of water or juice. (Same as: Miralax) Zofran 4 mg, 2 mL, Inactive [facility] Route: IVP, 2019 Medical Drug form: INJ, Center ONCE, Dosing Weight 66.506, kg, Start date: 12/17/18 9:26:00 CDT, Stop date: 12/17/18 9:26:00 CDTNotes: (Same as: Zofran) MEDICATION WASTE Product Size: 4 mg Product Wasted: ___ mg Zofran 4 mg, 2 mL, No Longer [place] Route: IVP, Active 2018 Medical Drug form: INJ, Center Q8H, Dosing Weight 66.506, kg, PRN Nausea, Start date: 12/17/18 9:00:00 CDT, Duration: 30 day, Stop date: 01/16/19 8:59:00 CDTNotes: (Same as: Zofran) MEDICATION WASTE Product Size: 4 mg Product Wasted: ___ mg Macrobid 100 mg, 1 cap, No Longer [place] Route: PO, Drug Active 2018 Medical form: CAP, Center [id number], Dosing Weight 66.506, kg, Start date: 12/17/18 8:00:00 CDT, Duration: 7 day, Stop date: 12/23/18 20:00:00 CDTNotes: Not recommended for patients with CrCl Zofran 4 mg, 2 mL, Inactive [place] Route: IVP, 2018 Medical Drug form: INJ, Center ONCE, Dosing Weight 66.506, kg, Start date: 12/16/18 11:01:00 CDT, Stop date: 12/16/18 11:01:00 CDTNotes: (Same as: Zofran) MEDICATION WASTE Product Size: 4 mg Product Wasted: ___ mg Zofran ODT 4 mg, 1 tab, No Longer [place] Route: PO, Drug Active 2018 Medical form: TABDIS, Center Q8H, Dosing Weight 66.506, kg, PRN Nausea, Start date: 12/16/18 9:57:00 CDT, Duration: 30 day, Stop date: 01/15/19 9:56:00 CDTNotes: (Same as: Zofran ODT) sennosides, CORRECTION 17.2 mg, 2 tab, No Longer [place] Route: PO, Drug Active 2018 Medical Form: TAB, Center Dosing Weight 64.545, kg, Bedtime, Start date: 12/15/18 21:00:00 CDT, Duration: 30 day, Stop date: 01/13/19 21:00:00 CDTNotes: (Same as: Senokot) amLODIPine 5 mg 5 mg=1 tab, PO, Active [place] oral tablet Daily, 0 2019 Medical Refill(s) [place] Breo Ellipta 200 1 puff, Active [place] mcg-25 mcg/inh INHALATION, 2019 Medical inhalation Daily, 0 [place] powder Refill(s) sertraline 100 150 mg=1.5 tab, Active [place] mg oral tablet PO, Daily, # 2019 Medical 135 tab, 0 Center Refill(s) Zolpidem 5 mg=1 tab, PO, Active [place] tartrate 5 MG Bedtime, # 30 2019 Medical Oral Tablet tab, 0 Center [Ambien] Refill(s) Ambien 5 mg, 1 tab, No Longer [place] Route: PO, Drug Active 2018 Medical form: TAB, Center Bedtime, Dosing Weight 66.506, kg, PRN Insomnia, Start date: 12/15/18 10:04:00 CDT, Duration: 30 day, Stop date: 01/14/19 10:03:00 CDTNotes: (Same As: Ambien) Calcium Chloride 1,000 mL, 1,000 Inactive [place] 0.0014 MEQ/ML / ml/hr, Infuse 2019 Medical Potassium Over: 1 hr, [place] Chloride 0.004 Route: IV, MEQ/ML / Sodium 1,000, Drug Chloride 0.103 form: INJ, MEQ/ML / Sodium ONCE, Priority: Lactate 0.028 STAT, Dosing MEQ/ML Weight 66.506 Injectable kg, Start date: Solution 12/15/18 9:15:00 CDT, Stop date: 12/15/18 9:15:00 CDT ferrous sulfate 325 mg, 1 tab, No Longer [place] Route: PO, Drug Active 2018 Medical form: ECTAB, Center Daily, Dosing Weight 66.506, kg, Start date: 12/15/18 9:00:00 CDT, Duration: 30 day, Stop date: 01/13/19 9:00:00 CDTNotes: Give with food. "Do Not Crush" Docusate 100 mg, 1 cap, No Longer [place] Route: PO, Drug Active 2018 Medical form: CAP, BID, Center Dosing Weight 64.545, kg, Start date: 12/15/18 9:00:00 CDT, Duration: 30 day, Stop date: 01/13/19 17:00:00 CDTNotes: (Same as: Colace) (Do Not Crush) Tylenol 650 mg, 2 tab, No Longer [place] Route: PO, Drug Active 2018 Medical form: TAB, Q6H, Center Dosing Weight 66.506, kg, Start date: 12/14/18 18:00:00 CDT, Duration: 30 day, Stop date: 01/13/19 12:00:00 CDTNotes: Do not exceed 4 gm/day. (Same as: Tylenol) tramadol 50 mg, 1 tab, No Longer [place] hydrochloride 50 Route: PO, Drug Active 2018 Medical MG Oral Tablet form: TAB, Q4H, Center Dosing Weight 66.506, kg, PRN Pain Score 6-10, Start date: 12/14/18 16:21:00 CDT, Duration: 30 day, Stop date: 01/13/19 16:20:00 CDTNotes: Not to exceed 400mg/day. (Same As: Ultram) Hydromorphone 1 mg, 0.5 mL, Inactive [place] Route: IVP, 2018 Medical Drug form: INJ, Center Q4H, Dosing Weight 66.506, kg, PRN Pain Score 7-10, Start date: 12/14/18 11:53:00 CDT, Duration: 30 day, Stop date: 01/13/19 11:52:00 CDTNotes: Same as Dilaudid Midazolam 1 mg, Route: Inactive [place] IV, ONCE, 2019 Medical Dosing Weight Center 66.506, kg, Start date: 12/14/18 11:34:00 CDT, Stop date: 12/14/18 11:34:00 CDT, Fentanyl 50 microgram, Inactive [place] Route: IV, 2019 Medical ONCE, Dosing Center Weight 66.506, kg, Start date: 12/14/18 11:34:00 CDT, Stop date: 12/14/18 11:34:00 CDT, Fentanyl 50 microgram, Inactive [facility] Route: IV, 2018 Medical ONCE, Dosing Center Weight 66.506, kg, Start date: 12/14/18 11:29:00 CDT, Stop date: 12/14/18:00 CDT, Ondansetron 4 mg, Route: Inactive [facility] IV, ONCE, 2018 Medical Dosing Weight Center 66.506, kg, Start date: 12/14/18:29:00 CDT, Stop date: 12/14/18:00 CDT, Rocephin 1 gm, Route: Inactive [facility] IV, ONCE, 2018 Medical Dosing Weight Center 66.506, kg, Start date: 12/14/18 11:29:00 CDT, Stop date: 12/14/18:00 CDT, , ABX Indication: Surgical Prophylaxis Midazolam 1 mg, Route: Inactive [facility] IV, ONCE, 2019 Medical Dosing Weight Center 66.506, kg, Start date: 12/14/18 11:29:00 CDT, Stop date: 12/14/18 11:29:00 CDT, Sertraline 100 mg, 1 tab, No Longer [place] Route: PO, Drug Active 2019 Medical form: TAB, Center Daily, Dosing Weight 64.545, kg, Start date: 12/14/18 9:00:00 CDT, Duration: 30 day, Stop date: 01/12/19 9:00:00 CDTNotes: (Same as: Zoloft) Ceftriaxone 1 gm, Route: No Longer [place] IV, [id number], Active 2018 Medical Dosing Weight Center 64.545, kg, Start date: 12/14/18 6:00:00 CDT, Duration: 7 day, Stop date: 12/20/18 6:00:00 CDT, ABX Indication: Urinary Tract InfectionNotes: (Same As: Rocephin). Use with 100 mL NS and infuse over 30 min MEDICATION WASTE Product Size: 1000 mg Product Wasted: ___ mg Dilaudid 0.5 mg, 0.25 Inactive [place] mL, Route: IVP, 2019 Medical Drug form: INJ, Center ONCE, Dosing Weight 66.506, kg, Priority: STAT, Start date: 12/14/18 5:55:00 CDT, Stop date: 12/14/18 5:55:00 CDTNotes: Same as Dilaudid Lovenox 40 mg, 0.4 mL, No Longer [facility] Route: SUB-Q, Active 2018 Medical Drug form: INJ, Center Daily, Dosing Weight 64.545, kg, Priority: STAT, Start date: 12/14/18 4:25:00 CDT, Duration: 30 day, Stop date: 01/12/19 9:00:00 CDTNotes: (Same as: Lovenox) Melatonin 3 mg, 1 tab, No Longer [place] Route: PO, Drug Active 2019 Medical form: TAB, Center Bedtime, Dosing Weight 64.545, kg, PRN Insomnia, Start date: 12/14/18 4:24:00 CDT, Duration: 30 day, Stop date: 01/13/19 4:23:00 CDTNotes: (Same as: Melatonin) Glucagon 1 mg, Route: No Longer [place] IM, Drug form: Active 2019 Medical PDR/INJ, PRN, Center Dosing Weight 64.545, kg, PRN Blood Glucose Results, Start date: 12/14/18 4:24:00 CDT, Duration: 30 day, Stop date: 01/13/19 4:23:00 CDT Dextrose 50% 25 gm, 50 mL, No Longer [place] Syringe Route: IVP, Active 2019 Medical Drug Form: INJ, Center Dosing Weight 64.545, kg, PRN, PRN Blood Glucose Results, Start date: 12/14/18 4:24:00 CDT, Duration: 30 day, Stop date: 01/13/19 4:23:00 CDT Hydromorphone 0.5 mg, Route: Inactive [facility] IVP, ONCE, 2019 Medical Dosing Weight Center 64.545, kg, Priority: STAT, Start date: 12/14/18 2:51:00 CDT, Stop date: 12/14/18 2:51:00 CDT Sodium Chloride 1,000 mL, Rate: Inactive [place] 0.9% IV 1,000 mL 75 ml/hr, 2019 Medical Infuse over: Center 13.3 hr, Route: IV, Dosing Weight 64.545 kg, Total Volume: 1,000, Priority: STAT, Start date: 12/13/18 22:01:00 CDT, Duration: 1 doses or times, Stop date: 12/14/18 11:01:00 CDT, 1.68, m2 Dilaudid 0.5 mg, Route: Inactive [facility] IVP, ONCE, 2019 Medical Dosing Weight Center 64.545, kg, Priority: STAT, Start date: 12/13/18 21:56:00 CDT, Stop date: 12/13/18 21:56:00 CDT Zofran 4 mg, Route: Inactive [facility] IVP, Drug form: 2019 Medical INJ, ONCE, Center Dosing Weight 64.545, kg, Priority: STAT, Start date: 12/13/18 21:56:00 CDT, Stop date: 12/13/18 21:56:00 CDT Dilaudid 0.5 mg, Route: Inactive [facility] IVP, ONCE, 2019 Medical Dosing Weight Center 64.545, kg, Priority: STAT, Start date: 12/13/18 19:41:00 CDT, Stop date: 12/13/18 19:41:00 CDT Benadryl 10 mg, 0.2 mL, Inactive [facility] Route: IV, Drug 2018 Medical form: INJ, Center ONCE, Dosing Weight 74.091, kg, Start date: 04/19/18 14:36:00 CDT, Stop date: 04/19/18 14:36:00 CDTNotes: (Same as: Benadryl) Sodium Chloride 250 mL, Rate: No Longer [facility] 0.9% (titrate) To prime line Active 2018 Medical 250 mL and flush Center remaining blood products., Dosing Weight 74.091, kg, Route: IV, Total Volume: 250, Start Date: 04/19/18 9:46:00 CDT, Duration: 30 day, Stop date: 05/19/18 9:45:00 CDT, Replace Every: 24 hr meropenem 500 mg 500 mg, IV, Active [facility] intravenous [id number], 0 2018 Medical injection Refill(s) Center Amoxicillin 500 1 tab, PO, TID, No Longer [facility] MG / Clavulanate X 7 day, # 21 Active 2018 Medical 125 MG Oral tab, 0 Center Tablet Refill(s), [facility] [id number] Lidocaine 5 mL, Route: No Longer [facility] Hydrochloride 10 INTRADERM, Drug Active 2018 Medical MG/ML Injectable Form: INJ, Center Solution Dosing Weight 74.091, kg, ONCALL, Start date: 04/18/18 8:00:00 CDT, Duration: 1 doses or times, Stop date: 04/19/18 0:00:00 CDTNotes: (Same as: Xylocaine) Saline Flush 10 mL, Route: No Longer [place] 0.9% IVP, Drug Form: Active 2018 Medical INJ, Dosing Center Weight 74.091, kg, Q8H, Start date: 04/18/18 8:00:00 CDT, Duration: 30 day, Stop date: 05/18/18 0:00:00 CDTNotes: (Same as: BD Posiflush) Saline Flush 10 mL, Route: No Longer [place] 0.9% IVP, Drug Form: Active 2018 Medical INJ, Dosing Center Weight 74.091, kg, PRN, PRN Line Flush, Start date: 04/18/18 7:24:00 CDT, Duration: 30 day, Stop date: 05/18/18 7:23:00 CDTNotes: (Same as: BD Posiflush) Amoxicillin 500 1 tab, Route: No Longer [place] MG / Clavulanate PO, Drug Form: Active 2018 Medical 125 MG Oral TAB, Dosing Center Tablet Weight 74.091, [Augmentin kg, ABXQ8H, 500-mg] Start date: 04/17/18 22:00:00 CDT, Duration: 14 day, Stop date: 05/01/18 14:00:00 CDTNotes: With food. (Same as: Augmentin 500) Saline Flush 10 mL, Route: Inactive [place] 0.9% IVP, Drug Form: 2018 Medical INJ, Dosing Center Weight 74.091, kg, Q8H, Start date: 04/17/18 16:00:00 CDT, Duration: 30 day, Stop date: 05/17/18 8:00:00 CDTNotes: (Same as: BD Posiflush) Lidocaine 50 mg, 5 mL, Inactive [place] Hydrochloride 10 Route: 2018 Medical MG/ML Injectable INTRADERM, Drug Center Solution Form: INJ, Dosing Weight 74.091, kg, ONCALL, Start date: 04/17/18 14:00:00 CDT, Duration: 30 day, Stop date: 05/17/18 13:59:00 CDTNotes: (Same as: Xylocaine) Saline Flush 10 mL, Route: Inactive [place] 0.9% IVP, Drug Form: 2018 Medical INJ, Dosing Center Weight 74.091, kg, PRN, PRN Line Flush, Start date: 04/17/18 13:19:00 CDT, Duration: 30 day, Stop date: 05/17/18 13:18:00 CDTNotes: (Same as: BD Posiflush) meropenem 500 mg, Route: No Longer [facility] IV, Drug form: Active 2018 Medical PDR/INJ, Center ABXQ6H, Dosing Weight 74.091, kg, Start date: 04/16/18 10:00:00 CDT, Duration: 10 day, Stop date: 04/26/18 4:00:00 CDT, ABX Indication: Urinary Tract InfectionNotes: Same as [place] MEDICATION WASTE Product Size: 500 mg Product Wasted: ___ mg Potassium 20 mEq, 100 mL, Inactive [place] Chloride Route: IV, Drug 2018 Medical form: INJ, Center ONCE, Dosing Weight 74.091, kg, Start date: 04/16/18 9:52:00 CDT, Stop date: 04/16/18 9:52:00 CDTNotes: (Same as: KCL) Infuse no faster than 10 mEq/hr if given peripherally. Potassium 20 mEq, 15 mL, Inactive [facility] Chloride 1.33 Route: PO, Drug 2018 Medical MEQ/ML Oral form: LIQ, [place] Solution ONCE, Dosing Weight 74.091, kg, Start date: 04/16/18 8:10:00 CDT, Stop date: 04/16/18 8:10:00 CDTNotes: (Same as: Potassium Chloride) albuterol 90 2 puff, Route: No Longer [place] mcg/inh INHALATION, Active 2018 Medical inhalation Drug Form: Campbell aerosol AERO/A, Dosing Weight 74.091, kg, QID, PRN Shortness of breath, Start date: 04/15/18 21:15:00 CDT, Duration: 30 day, Stop date: 05/15/18 21:14:00 CDTNotes: Albuterol 90 microgram/inh 8gm HFA WASTE: Aerosol - Return to Pharmacy Same as: Ventolin, Proventil Ambien 5 mg, 1 tab, No Longer [place] Route: PO, Drug Active 2018 Medical form: TAB, Center Bedtime, Dosing Weight 74.091, kg, PRN Insomnia, Start date: 04/15/18 20:54:00 CDT, Duration: 30 day, Stop date: 05/15/18 20:53:00 CDTNotes: (Same As: Ambien) Phenergan 12.5 mg, 0.5 No Longer [place] mL, Route: Active 2018 Medical IVPB, Drug Center form: INJ, Q4H, Dosing Weight 74.091, kg, PRN Nausea & Vomiting, Start date: 04/15/18 19:56:00 CDT, Duration: 30 day, Stop date: 05/15/18 19:55:00 CDTNotes: Do not give IV push. (Same as: Phenergan) Xarelto 20 mg, 1 tab, No Longer [place] Route: PO, Drug Active 2017 Medical form: TAB, QPM, Center Dosing Weight 74.091, kg, Start date: 04/15/18 17:00:00 CDT, Duration: 30 day, Stop date: 05/14/18 17:00:00 CDTNotes: (Same as: Xarelto) Administer with food Magnesium 2 gm, 50 mL, Inactive [place] Sulfate Route: IVPB, 2018 Medical Drug form: INJ, Center ONCE, Dosing Weight 74.091, kg, Start date: 04/15/18 14:38:00 CDT, Stop date: 04/15/18 14:38:00 CDTNotes: WASTE: F/P - Sink; E - Municipal Trash Bin lidocaine 10 mL, Route: Inactive [facility], Drug 2018 Medical form: INJ, Center ONCE, Start date: 04/15/18 10:00:00 CDT, Stop date: 04/15/18 10:00:00 CDTNotes: (Same as: Xylocaine) lidocaine 10 mL, Route: Inactive [facility], Drug 2018 Medical form: INJ, Center ONCE, Start date: 04/15/18 9:40:00 CDT, Stop date: 04/15/18 9:40:00 CDTNotes: Preservative free. (Same as: Xylocaine MPF) Fentanyl 50 microgram, Inactive [place] Route: IV, 2018 Medical ONCE, Dosing Center Weight 74.091, kg, Start date: 04/15/18 9:16:00 CDT, Stop date: 04/15/18 9:16:00 CDT Lidocaine 2 %, Route: Inactive [facility] SUB-Q, ONCE, 2018 Medical Dosing Weight Center 74.091, kg, Start date: 04/15/18 9:16:00 CDT, Stop date: 04/15/18 9:16:00 CDT Heparin 40 Pharmacy To Inactive [facility] unit/kg Bolus Manage, Route: 2018 Medical (Heparin Dosing IVP, PRN, Drug Center Weight) form: INJ, PRN, Heparin Protocol, Start date: 04/14/18 16:30:00 CDT Stop date: 05/14/18 16:29:00 CDT, 30 day heparin additive 500 mL, Rate: Inactive [place] 25,000 unit [18 26.67 ml/hr, 2018 Medical unit/kg/hr] + Infuse over: Center Premix Diluent 18.7 hr, Route: Dextrose 5% 500 IV, Dosing mL Weight 74.091 kg, Total Volume: 500 mL, Start date: 04/14/18 16:30:00 CDT, Duration: 30 day, Stop date: 05/14/18 16:29:00 CDT, 1.8, m2 Heparin 80 Pharmacy To Inactive [facility] unit/kg Bolus Manage, Route: 2018 Medical (Heparin Dosing IVP, PRN, Drug Center Weight) form: INJ, PRN, Heparin Protocol, Start date: 04/14/18 16:30:00 CDT Stop date: 05/14/18 16:29:00 CDT, 30 day Xarelto 20 mg, 1 tab, No Longer [place] Route: PO, Drug Active 2018 Medical form: TAB, Center Daily, Dosing Weight 74.091, kg, Start date: 04/14/18 11:00:00 CDT, Duration: 30 day, Stop date: 05/14/18 9:00:00 CDTNotes: (Same as: Xarelto) Administer with food Mag-Ox 400 800 mg, 2 tab, Inactive [place] Route: PO, Drug 2018 Medical form: TAB, Center ONCE, Start date: 04/14/18 9:00:00 CDT, Stop date: 04/14/18 9:00:00 CDTNotes: (Same as: Mag-Ox 400) Magnesium oxide [id number] elemental magnesium Dose=____mg magnesium oxide (___mg elemental magnesium) potassium 2 pkt, Route: Inactive [facility] phosphate-sodium PO, Drug Form: 2018 Medical phosphate PDR/REC, BID, Center Start date: 04/14/18 9:00:00 CDT, Duration: 2 doses or times, Stop date: 04/14/18 13:00:00 CDTNotes: (Same as: Phos-NaK) Each 1.5 gm pkt has 250mg phosphorous. Mix w/2.5oz water and stir. potassium 2 tab, Route: Inactive [facility] phosphate 155 MG PO, Dosing 2018 Medical / Sodium Weight 74.091, Center Phosphate, kg, ONCE, Start Dibasic 852 MG / date: 04/14/18 Sodium 7:51:00 CDT, Phosphate, Stop date: Monobasic 130 MG 04/14/18 Oral Tablet 7:51:00 CDT Lactated Ringers 1,000 mL, Rate: No Longer [place] IV 1,000 mL 200 ml/hr, Active 2017 Medical Infuse over: 5 Center hr, Route: IV, Dosing Weight 74.091 kg, Total Volume: 1,000, Start date: 04/13/18 17:07:00 CDT, Duration: 30 day, Stop date: 05/13/18 17:06:00 CDT, 1.8, m2 Potassium 40 mEq, Route: Inactive [facility] Chloride PO, Drug form: 2018 Medical ERTAB, PRN, Center Dosing Weight 74.091, kg, PRN Abnormal Lab Result, Electrolyte replacement, Priority: NOW, Start date: 04/13/18 16:01:00 CDT, Duration: 7 day, Stop date: 04/20/18 16:00:00 CDT Maxipime + 1 gm, Route: No Longer [facility] Sodium Chloride IVPB, Drug Active 2018 Medical 0.9% IV 50 mL form: INJ, Center ABXQ6H, Dosing Weight 74.091, kg, Priority: Routine, Start date: 04/13/18 12:30:00 CDT, Duration: 30 day, Stop date: 05/13/18 6:30:00 CDT, ABX Indication: BacteremiaNotes : (Same As: Maxipime) Cefepime FOR IV SET ONLY MEDICATION WASTE Product Size: 1000 mg Product Wasted: _0__ mg Hydromorphone 0.5 mg, 0.25 No Longer [place] mL, Route: IV, Active 2017 Medical Drug form: INJ, Center Q4H, Dosing Weight 74.091, kg, PRN Pain Score 4-6, Start date: 04/13/18 12:00:00 CDT, Duration: 30 day, Stop date: 05/13/18 8:00:00 CDTNotes: Same as Dilaudid Lactated Ringers 1,000 mL, Rate: Inactive [place] IV 1,000 mL 200 ml/hr, 2018 Medical Infuse over: 5 Center hr, Route: IV, Dosing Weight 74.091 kg, Total Volume: 1,000, Start date: 04/13/18 10:02:00 CDT, Duration: 1 doses or times, Stop date: 04/13/18 15:01:00 CDT, 1.8, m2 Zofran Route: IVP, No Longer [place] Drug form: INJ, Active 2018 Medical Q8H, Dosing Center Weight 74.091, kg, PRN Nausea, Start date: 04/13/18 9:07:00 CDT, Duration: 30 day, Stop date: 05/13/18 9:06:00 CDTNotes: (Same as: Zofran) MEDICATION WASTE Product Size: 4 mg Product Wasted: ___0 mg sennosides, CORRECTION 17.2 mg, 2 tab, No Longer [place] 8.6 MG Oral Route: PO, Drug Active 2017 Medical Tablet Form: TAB, Center Dosing Weight 74.091, kg, Bedtime, Start date: 04/12/18 21:00:00 CDT, Duration: 30 day, Stop date: 05/11/18 21:00:00 CDTNotes: (Same as: Senokot) heparin sodium, 5,000 unit, Inactive [place] porcine 2500 Route: SUB-Q, 2018 Medical UNT/ML Drug form: INJ, Center Injectable Q12H, Dosing Solution Weight 74.091, kg, Start date: 04/12/18 21:00:00 CDT, Duration: 30 day, Stop date: 05/12/18 9:00:00 CDT Lasix 20 mg, Route: Inactive [facility] IVP, Drug form: 2018 Medical INJ, ONCE, Center Dosing Weight 74.091, kg, Priority: NOW, Start date: 04/12/18 9:35:00 CDT, Stop date: 04/12/18 9:35:00 CDT Miralax 17 gm, 1 pkt, No Longer [facility] Route: PO, Drug Active 2017 Medical form: PWDR, Center Daily, Dosing Weight 74.091, kg, Start date: 04/12/18 9:00:00 CDT, Duration: 30 day, Stop date: 05/11/18 9:00:00 CDTNotes: Dissolve in 8 oz of water or juice. (Same as: Miralax) Docusate 200 mg, 2 cap, No Longer [facility] Route: PO, Drug Active 2017 Medical form: CAP, Center Daily, Dosing Weight 74.091, kg, Start date: 04/12/18 9:00:00 CDT, Duration: 30 day, Stop date: 05/11/18 9:00:00 CDTNotes: (Same as: Colace) (Do Not Crush) linezolid 600 mg, 300 mL, Inactive [facility] Route: IV, Drug 2017 Medical form: SOLN, Center Q12H, Dosing Weight 74.091, kg, Start date: 04/12/18 9:00:00 CDT, Duration: 30 day, Stop date: 05/11/18 21:00:00 CDT, ABX Indication: BacteremiaNotes : (Same as: Zyvox) Calcium 1,000 mg, 2 No Longer [place] Carbonate 500 MG tab, Route: PO, Active 2018 Medical Chewable Tablet Drug form: Center CHEWTAB, PRN, Dosing Weight 74.091, kg, PRN Abnormal Lab Result, FOR ICU USE ONLY, Start date: 04/12/18 6:45:00 CDT, Duration: 30 day, Stop date: 05/12/18 6:44:00 CDTNotes: (Same As: Tums) Calcium Carbonate 500 rp=121 mg elemental calcium Dose= mg calcium carbonate ( mg elemental calcium) sodium phosphate 15 mmol, 5 mL, No Longer [place] Route: IVPB, Active 2018 Medical PRN, Dosing Center Weight 74.091, kg, PRN Abnormal Lab Result, Start date: 04/12/18 6:45:00 CDT, Duration: 30 day, Stop date: 05/12/18 6:44:00 CDT, FOR ICU USE ONLYNotes: Infuse over 4 hour. Do not infuse phosphorous concurrently in the same line as TPN or IVF that contains calcium. For double lumen central lines, phosphorous may be infused in a separate lumen from TPN. Potassium 20 mEq, 15 mL, No Longer [place] Chloride Route: [place], Drug Active 2017 Medical form: LIQ, PRN, Center Dosing Weight 74.091, kg, PRN Abnormal Lab Result, Start date: 04/12/18 6:45:00 CDT, Duration: 30 day, Stop date: 05/12/18 6:44:00 CDT, FOR ICU USE ONLYNotes: (Same as: Potassium Chloride) Calcium 1,000 mg, 10 No Longer [place] Gluconate mL, Route: Active 2018 Medical IVPB, PRN, Center Dosing Weight 74.091, kg, PRN Abnormal Lab Result, Start date: 04/12/18 6:45:00 CDT, Duration: 30 day, Stop date: 05/12/18 6:44:00 CDT, FOR ICU USE ONLYNotes: WASTE: F/P - Sink; E - Municipal Trash Bin Magnesium Oxide 800 mg, 2 tab, No Longer [place] Route: PO, Drug Active 2017 Medical form: TAB, PRN, Center Dosing Weight 74.091, kg, PRN Abnormal Lab Result, FOR ICU USE ONLY, Start date: 04/12/18 6:45:00 CDT, Duration: 30 day, Stop date: 05/12/18 6:44:00 CDTNotes: (Same as: Mag-Ox 400) Magnesium oxide [id number] elemental magnesium Dose=____mg magnesium oxide (___mg elemental magnesium) potassium 15 mmol, 5 mL, No Longer [place] phosphate Route: IVPB, Active 2017 Medical PRN, Dosing Center Weight 74.091, kg, PRN Abnormal Lab Result, Start date: 04/12/18 6:45:00 CDT, Duration: 30 day, Stop date: 05/12/18 6:44:00 CDT, FOR ICU USE ONLYNotes: (Same as: K Phosphate.) Do not infuse phosphorous concurrently in the same line as TPN or IVF that contains calcium. For double lumen central lines, phosphorous may be infused in a separate lumen from TPN. 1 mMol phoshate has 1.47 mEq potassium Infuse over 4 hours potassium 2 pkt, Route: No Longer [place] phosphate-sodium PO, Drug Form: Active 2018 Medical phosphate 250 PDR/REC, Dosing Center mg-280 mg-160 mg Weight 74.091, oral powder for kg, PRN, PRN reconstitution Abnormal Lab Result, FOR ICU USE ONLY, Start date: 04/12/18 6:45:00 CDT, Duration: 30 day, Stop date: 05/12/18 6:44:00 CDTNotes: (Same as: Phos-NaK) Each 1.5 gm pkt has 250mg phosphorous. Mix w/2.5oz water and stir. Magnesium 2 gm, 4 mL, No Longer [place] Sulfate Route: IVPB, Active 2018 Medical PRN, Dosing Center Weight 74.091, kg, PRN Abnormal Lab Result, Start date: 04/12/18 6:45:00 CDT, Duration: 30 day, Stop date: 05/12/18 6:44:00 CDT, FOR ICU USE ONLYNotes: (Same as: MgSO4) WASTE: F/P - Sink; E - Municipal Trash Bin MEDICATION WASTE Product Size: 1000 mg Product Wasted: ___ mg cefepime 1 gm, Route: Inactive [place] IV, Q6H, Dosing 2018 Medical Weight 74.091, Center kg, Start date: 04/12/18 6:00:00 CDT, Duration: 30 day, Stop date: 05/12/18 0:00:00 CDT, ABX Indication: Bacteremia Calcium Chloride 1,000 mL, 1,000 Inactive [place] 0.0014 MEQ/ML / ml/hr, Infuse 2018 Medical Potassium Over: 1 hr, Center Chloride 0.004 Route: IV, MEQ/ML / Sodium 1,000, Drug Chloride 0.103 form: INJ, MEQ/ML / Sodium ONCE, Priority: Lactate 0.028 STAT, Dosing MEQ/ML Weight 74.091 Injectable kg, Start date: Solution 04/12/18 4:11:00 CDT, Stop date: 04/12/18 4:11:00 CDT linezolid 600 mg, 300 mL, No Longer [place] Route: IV, Drug Active 2017 Medical form: SOLN, Center Q12H, Dosing Weight 74.091, kg, Priority: STAT, Start date: 04/12/18 3:16:00 CDT, Duration: 30 day, Stop date: 05/12/18 5:00:00 CDT, ABX Indication: BacteremiaNotes : (Same as: Zyvox) cefepime 1 gm, Route: No Longer [place] IV, Drug form: Active 2018 Medical INJ, ABXQ6H, Center Dosing Weight 74.091, kg, Priority: STAT, Start date: 04/12/18 3:16:00 CDT, Duration: 30 day, Stop date: 05/11/18 23:00:00 CDT, ABX Indication: BacteremiaNotes : (Same As: Maxipime) MEDICATION WASTE Product Size: 1000 mg Product Wasted: ___ mg Tylenol 650 mg, 2 tab, No Longer [place] Route: PO, Drug Active 2017 Medical form: TAB, Q6H, Center Dosing Weight 74.091, kg, PRN Pain 1-3/Temp > 100.4 F, Start date: 04/12/18 0:54:00 CDT, Duration: 30 day, Stop date: 05/12/18 0:53:00 CDTNotes: Do not exceed 4 gm/day. (Same as: Tylenol) Dilaudid 0.2 mg, 0.1 mL, No Longer [facility] Route: IV, Drug Active 2017 Medical form: INJ, Q6H, Center Dosing Weight 74.091, kg, PRN Pain Score 4-6, Start date: 04/12/18 0:54:00 CDT, Duration: 30 day, Stop date: 05/12/18 0:53:00 CDTNotes: Same as Dilaudid Heparin 40 Route: IVP, No Longer [facility] unit/kg Bolus PRN, 2,300 Active 2017 Medical (Heparin Dosing unit, 2.3 mL, Center Weight) Drug form: INJ, PRN, Heparin Protocol, Start date: 04/12/18 0:34:00 CDT Stop date: 05/12/18 0:33:00 CDT, 30 day heparin additive 500 mL, Rate: No Longer [facility] 25,000 unit [18 20.5 ml/hr, Active 2018 Medical unit/kg/hr] + Infuse over: [place] Premix Diluent 24.4 hr, Route: Sodium Chloride IV, Dosing 0.45% 500 mL Weight 56.94 kg, Total Volume: 500 mL, Start date: 04/12/18 0:34:00 CDT, Duration: 30 day, Stop date: 05/12/18 0:33:00 CDT, 1.57, [id number]: Total Concentration=5 0 unit/ ml Total imsthg=194 ml Send Med Request 2 hours prior to next bag Heparin - one 4,600 unit, 4.[address] [facility] time bolus for mL, Route: IVP, 2018 Medical DVT/PE Drug form: INJ, Center ONCE, Dosing Weight 74.091, kg, Priority: STAT, Start date: 04/12/18 0:34:00 CDT, Stop date: 04/12/18 0:34:00 CDT Heparin 80 Route: IVP, No Longer [facility] unit/kg Bol[place] PRN, 4,600 Active 2018 Medical (Heparin Dosing unit, 4.6 mL, Center Weight) Drug form: INJ, PRN, Heparin Protocol, Start date: 04/12/18 0:34:00 CDT Stop date: 05/12/18 0:33:00 CDT, 30 day Calcium Chloride 2,000 mL, 1,000 Inactive [place] 0.0014 MEQ/ML / ml/hr, Infuse 2018 Medical Potassium Over: 2 hr, [place] Chloride 0.004 Route: IV, MEQ/ML / Sodium 2,000, Drug Chloride 0.103 form: INJ, MEQ/ML / Sodium ONCE, Priority: Lactate 0.028 STAT, Dosing MEQ/ML Weight 74.091 Injectable kg, Start date: Solution 04/12/18 0:32:00 CDT, Stop date: 04/12/18 0:32:00 CDT Benzocaine / [place], Daily, [address] [facility] Docusate Refill(s) 2018 [facility] sertraline 100 100 mg=1 tab, Active [facility] mg oral tablet PO, Daily, # 30 2018 Medical tab, 0 Center Refill(s) Amoxicillin 875 mg, 1 tab, No Longer [facility] Route: PO, Drug Active 2018 Medical form: TAB, Center Q12H, Dosing Weight 67, kg, Priority: NOW, Start date: 03/03/18 18:57:00 CDT, Duration: 30 day, Stop date: 04/02/18 9:00:00 CDTNotes: (Same as: Amoxil) amoxicillin 875 875 mg=1 tab, On Hold [facility] mg oral tablet PO, Q12H, X 10 2018 Medical day, # 20 tab, Center 0 Refill(s), Pharmacy: [facility] [id number] rivaroxaban 20 20 mg=1 tab, Active [facility] MG Oral Tablet PO, QPM, # 30 2018 Medical [Xarelto] tab, 0 Center Refill(s), Pharmacy: [facility] [id number] Amoxicillin 875 875 mg=1 tab, Inactive [facility] MG / Clavulanate PO, Q12H, X 10 2018 Medical 125 MG Oral day, # 20 tab, Center Tablet 0 Refill(s), [Augmentin Pharmacy: 875-mg] [facility] [id number] Potassium 20 mEq, 1 tab, Inactive [facility] Chloride Route: PO, Drug 2018 Medical form: ERTAB, Center ONCE, Dosing Weight 67, kg, Start date: 03/03/18 11:36:00 CDT, Stop date: 03/03/18 11:36:00 CDTNotes: (Same as: K-Dur 20) "Do Not Crush" For patients unable to swallow tablet, dissolve in one half glass of water. Allow about 2 minutes for the tablets to disintegrate. Stir before giving to prepare slurry and administer. Please exclude Patients with feeding tube less than 14 Greek (Dobhoff, J-tube etc) and pediatric and patients. With food and full glass of water Ceftriaxone 1 gm, Route: No Longer [place] IV, [id number], Active 2018 Medical Dosing Weight Center 67.6, kg, Start date: 03/02/18 8:00:00 CDT, Duration: 13 day, Stop date: 03/14/18 8:00:00 CDT, ABX Indication: Urinary Tract InfectionNotes: (Same As: Rocephin). MEDICATION WASTE Product Size: 1000 mg Product Wasted: ___ mg Ondansetron 4 mg, Route: Inactive [facility] IVP, ONCE, 2018 Medical Dosing Weight Center 67, kg, PRN Nausea & Vomiting, Start date: 03/01/18 18:07:00 CDT Flumazenil 0.2 mg, Route: Inactive [facility] IVP, PRN, 2018 Medical Dosing Weight Center 67, kg, PRN Benzodiazepine Reversal, Initial dose, Start date: 03/01/18 18:07:00 CDT, Duration: 30 day, Stop date: 03/31/18 18:06:00 CDT Naloxone 0.4 mg, Route: Inactive [facility] IVP, Q2MIN, 2018 Medical Dosing Weight Center 67, kg, PRN Narcotic Reversal, Start date: 03/01/18 18:07:00 CDT, Duration: 8 doses or times, Stop date: Limited # of times Oxycodone 10 mg, Route: Inactive [place] PO, Drug form: 2018 Medical TAB, Q4H, Center Dosing Weight 67, kg, PRN Pain Score 7-10, Start date: 03/01/18 18:07:00 CDT, Duration: 30 day, Stop date: 03/31/18 18:06:00 CDT Hydromorphone 0.2 mg, Route: Inactive [facility] IVP, Q5Min, 2018 Medical Dosing Weight Center 67, kg, PRN Pain Score 7-10, Start date: 03/01/18 18:07:00 CDT, Duration: 4 doses or times, Stop date: Limited # of times Acetaminophen 1,000 mg, Inactive [facility] Route: PO, Drug 2018 Medical form: TAB, Center ONCE, Dosing Weight 67, kg, PRN Pain Score 1-3, Start date: 03/01/18 18:07:00 CDT Hydralazine 10 mg, Route: Inactive [facility] IVP, Q20Min, 2018 Medical Dosing Weight Center 67, kg, PRN Elevated BP, Start date: 03/01/18 18:07:00 CDT, Duration: 2 doses or times, Stop date: Limited # of times Labetalol 10 mg, Route: Inactive [facility] IVP, Q5Min, 2018 Medical Dosing Weight Center 67, kg, PRN Elevated BP, Start date: 03/01/18 18:07:00 CDT, Duration: 5 doses or times, Stop date: Limited # of times sugammadex 500 mg, 5 mL, No Longer [facility] Route: IV, Drug Active 2017 Medical form: SOLN, Center ONCALL, Start date: 03/01/18 18:00:00 CDT, Duration: 1 doses or times, Stop date: 03/01/18 18:15:00 CDTNotes: (Same as: Bridion) Dilaudid 0.5 mg, Route: Inactive [facility] IVP, ONCE, 2018 Medical Dosing Weight Center 67.6, kg, Priority: STAT, Start date: 03/01/18 15:48:00 CDT, Stop date: 03/01/18 15:48:00 CDT Zofran 4 mg, 2 mL, No Longer [facility] Route: IVP, Active 2017 Medical Drug form: INJ, Center Q8H, Dosing Weight 67.6, kg, PRN Nausea, Start date: 03/01/18 12:40:00 CDT, Duration: 30 day, Stop date: 03/31/18 12:39:00 CDTNotes: (Same as: Zofran) MEDICATION WASTE Product Size: 4 mg Product Wasted: ___ mg Docusate 100 mg, 1 cap, No Longer [place] Route: PO, Drug Active 2018 Medical form: CAP, BID, Center Dosing Weight 67.727, kg, Start date: 03/01/18 9:00:00 CDT, Duration: 30 day, Stop date: 03/30/18 17:00:00 CDTNotes: (Same as: Colace) (Do Not Crush) Sertraline 50 mg, 1 tab, No Longer [place] Route: PO, Drug Active 2017 Medical form: TAB, Center Daily, Dosing Weight 67.727, kg, Start date: 03/01/18 9:00:00 CDT, Duration: 30 day, Stop date: 03/30/18 9:00:00 CDTNotes: (Same as: Zoloft) Betamethasone 1 appl, Route: Inactive [place] 0.5 MG/ML TOP, BID, Drug 2017 Medical Augmented form: CRM, Center Topical Cream Start date: 03/01/18 9:00:00 CDT, Duration: 30 day, Stop date: 03/30/18 17:00:00 CDTNotes: (betamethasone dip, aug 0.05% 15gm CRM) (Same As: Diprolene AF) heparin sodium, 5,000 unit, 1 No Longer [place] porcine 2500 mL, Route: Active 2017 Medical UNT/ML SUB-Q, Drug Center Injectable form: INJ, Q8H, Solution Dosing Weight 67.727, kg, Start date: 03/01/18 8:00:00 CDT, Duration: 30 day, Stop date: 03/31/18 0:00:00 CDTNotes: porcine heparin Ceftriaxone 2 gm, Route: Inactive [place] IVPB, [id number], 2018 Medical Dosing Weight Center 67.727, kg, Start date: 03/01/18 7:00:00 CDT, Duration: 7 day, Stop date: 03/07/18 19:00:00 CDT, ABX Indication: Urinary Tract InfectionNotes: (Same As: Rocephin). Use with 100 mL NS and infuse over 30 min MEDICATION WASTE Product Size: 2000 mg Product Wasted: ___ mg NS 1,000 mL 1,000 mL, Rate: No Longer [place] 100 ml/hr, Active 2017 Medical Infuse over: 10 Center hr, Route: IV, Dosing Weight 67.727 kg, Total Volume: 1,000, Start date: 03/01/18 6:57:00 CDT, Duration: 30 day, Stop date: 03/31/18 6:56:00 CDT, 1.72, m2 ketOROLAC 30 30 mg, 1 mL, No Longer [place] mg/mL injectable Route: IVP, Active 2017 Medical solution Drug form: INJ, Center Q6H, Dosing Weight 67.727, kg, PRN Pain Score 4-6, Start date: 03/01/18 6:52:00 CDT, Duration: 4 day, Stop date: 03/05/18 6:51:00 CDTNotes: (Same as:Toradol) IV bolus must be given >15 seconds. Give IM administration slowly and deeply into the muscle. Not for use > 4 days MEDICATION WASTE Product Size: 30 mg Product Wasted: ___ mg Ondansetron 4 mg, 2 mL, No Longer [place] Route: IVP, Active 2017 Medical Drug form: INJ, Center Q6H, Dosing Weight 67.727, kg, PRN Nausea & Vomiting, Start date: 03/01/18 6:21:00 CDT, Duration: 30 day, Stop date: 03/31/18 6:20:00 CDTNotes: (Same as: Zofran) MEDICATION WASTE Product Size: 4 mg Product Wasted: _0__ mg Acetaminophen 2 tab, Route: No Longer [place] 325 MG / PO, Drug Form: Active 2018 Medical Hydrocodone TAB, Dosing Center Bitartrate 5 MG Weight 67.727, Oral Tablet kg, Q4H, PRN Pain Score 7-10, Start date: 03/01/18 6:21:00 CDT, Duration: 30 day, Stop date: 03/31/18 6:20:00 CDTNotes: (Same as: [place] 325/5) Do not exceed 4gm/day of acetaminophen. Fentanyl 25 microgram, Inactive [facility] 0.5 mL, Route: 2018 Medical IVP, Drug form: Center INJ, ONCE, Dosing Weight 67.727, kg, Priority: STAT, Start date: 03/01/18 4:54:00 CDT, Stop date: 03/01/18 4:54:00 CDTNotes: (Same as: Sublimaze) Preservative free. Isolyte S PH-7.4 1,000 mL, [address] [facility] (Bolus) IV ml/hr, Route: 2018 Medical IV, Drug Form: [place] SOLN, Dosing Weight 67.727, kg, ONCE, Start date: 03/01/18 4:50:00 CDT, Stop date: 03/01/18 4:50:00 CDTNotes: (Same as: Isolyte S PH 7.4) Fentanyl 50 microgram, [address] [facility] mL, Route: IVP, 2018 Medical Drug form: INJ, Center ONCE, Dosing Weight 67.727, kg, Priority: STAT, Start date: 03/01/18 0:51:00 CDT, Stop date: 03/01/18 0:51:00 CDTNotes: (Same as: Sublimaze) Preservative free. Ondansetron 4 mg, 2 mL, Inactive [facility] Route: IVP, 2017 Medical Drug form: INJ, Center ONCE, Dosing Weight 67.727, kg, Priority: STAT, Start date: 03/01/18 0:51:00 CDT, Stop date: 03/01/18 0:51:00 CDTNotes: (Same as: Zofran) MEDICATION WASTE Product Size: 4 mg Product Wasted: ___ mg Ondansetron 4 mg, Route: Inactive [facility] IVP, Drug form: 2018 Medical INJ, ONCE, Center Dosing Weight 67.727, kg, Priority: STAT, Start date: 03/01/18 0:49:00 CDT, Stop date: 03/01/18 0:49:00 CDT Phenergan 12.5 mg, Route: Inactive 03/10[facility] IVPB, ONCE, 2018 Medical Dosing Weight Center 67.727, kg, Priority: STAT, Start date: 11/06/17 12:12:00 BLACKTOP SPREADER, Stop date: 11/06/17 12:12:00 BLACKTOP SPREADER Fentanyl 50 microgram, Inactive [facility] Route: IVP, 2017 Medical ONCE, Dosing Center Weight 67.727, kg, Priority: STAT, Start date: 11/06/17 12:12:00 BLACKTOP SPREADER, Stop date: 11/06/17 12:12:00 BLACKTOP SPREADER Fentanyl 50 microgram, 1 Inactive 11/06[facility] mL, Route: IVP, 2017 Medical Drug form: INJ, Center ONCE, Dosing Weight 67.727, kg, Priority: STAT, Start date: 11/06/17 10:05:00 BLACKTOP SPREADER, Stop date: 11/06/17 10:05:00 CSTNotes: (Same as: Sublimaze) Preservative free. Ketorolac 15 mg, 0.5 mL, Inactive [facility] Route: IVP, 2017 Medical Drug form: INJ, Center ONCE, Dosing Weight 67.727, kg, Start date: 11/06/17 9:35:00 BLACKTOP SPREADER, Stop date: 11/06/17 9:35:00 CSTNotes: (Same as:Toradol) IV bolus must be given >15 seconds. Give IM administration slowly and deeply into the muscle. Not for use > 4 days MEDICATION WASTE Product Size: 30 mg Product Wasted: ___ mg Zofran 4 mg, 2 mL, Inactive 11/06[facility] Route: IVP, 2017 Medical Drug form: INJ, Center ONCE, Dosing Weight 67.727, kg, Priority: STAT, Start date: 11/06/17 9:35:00 BLACKTOP SPREADER, Stop date: 11/06/17 9:35:00 CSTNotes: (Same as: Zofran) MEDICATION WASTE Product Size: 4 mg Product Wasted: ___ mg Iohexol 100 mL, Route: Inactive 11/06[facility] IVP, Drug Form: 2018 Medical SOLN, Dosing Center Weight 67.727, kg, ONCALL, STAT, Start date: 11/06/17 9:28:00 BLACKTOP SPREADER, Duration: 1 doses or times, Stop date: 11/07/17 0:00:00 BLACKTOP SPREADER, Dose=2.2ml/kg, Max vlfz=406iu -- "To be infused by Radiology Staff ONLY"Notes: (same as:Omnipaque 350). WASTE: F/P - Black; E - Municipal Trash Bin Ferrous Sulfate TWICE DAILY Active [facility] 2017 [facility] [place] Metoprolol DAILY AT [address] [facility] [address] Tartrate 2018 [facility] [place] Magnesium Oxide TWICE DAILY Active [facility] 2017 [facility] [place] Amlodipine DAILY Active [facility] St[facility] 2017 [facility] [place] Rivaroxaban DAILY Active [facility] . 2017 [facility] [place] Sertraline DAILY Active [facility] St[facility] 2017 [facility] [place] Pantoprazole DAILY Active [facility] St[facility] 2017 [facility] [place] Rivaroxaban DAILY Active [facility] 2018 [facility] [place] Lorazepam TWICE DAILY PRN [facility] St. For Anxiety 2015 [facility] [place] Ciprofloxacin DAILY [facility] St. Hcl 2015 [facility] [place] Hydrocodone Q6H PRN For [facility] St. 10/Apap 325 Pain 2015 [facility] [place] Docusate TWICE DAILY [facility] [place] Yash TWICE DAILY [facility] [place] Fluconazole DAILY PRN For Active [facility] YEAST INFECTION 2015 [facility] [place] Nitrofurantoin TWICE DAILY [facility] Macrocrystal 2015 [facility] [place] Zolpidem AT BEDTIME PRN Active [facility] St. Tartrate For Sleep 2015 [facility] [place] Promethazine Tab EVERY [address] [facility] St[facility] NEEDED PRN 2014 [facility] For Nausea / [place] Vomiting Acetaminophen PRN For Pain Inactive [facility] St. 2014 [facility] [place] Aspirin DAILY Active [facility] St[facility] 2014 [facility] [place] Amlodipine DAILY Active [facility] [place] Cefdinir TWICE DAILY Active [facility] 2013 [facility] [place] Polyethylene Mon,Wed,Wednesday Active [facility]. Glycol 3350 PRN For 2012 [facility] Diarrhea [place] Mupirocin Oint TWICE DAILY Active St. NEEDED PRN For 2012 [facility] affected areas [place] Diphenhydramine EVERY [address] [facility] [address] NEEDED PRN 2012 [facility] For Allergies [place] Ibuprofen EVERY [address] [facility] [address] NEEDED PRN 2013 [facility] Pain [place] Levalbuterol EVERY [address] Tartrate NEEDED PRN 2013 [facility] For Shortness [place] Of Breath Amlodipine DAILY Active St[facility] 2013 [facility] [place] Promethazine Hcl EVERY [address] NEEDED PRN 2012 [facility] For nausea [place] Nut Tx, DAILY Active [facility] St. Lact-Reduced, 2013 [facility] Iron [place] Omeprazole DAILY Active [place] [facility] St. 2013 [facility] [place] Zolpidem AT BEDTIME Active [place] [facility] St. Tartrate 2013 [facility] [place] Sertraline DAILY Active [facility] St. 2013 [facility] [place] Allergies, Adverse Reactions, Alerts Substance Category Reaction Severity Reaction Status Date Comments Source type Reported Latex, Itching/H Allergy to Active [facility] St. Natural tristan/Rash Substance 5 [facility] [place]ber [place] vancomycin Assertion Drug Active [facility] morphine Assertion Drug Active [facility] Latex Assertion Propensity Active [facility] to adverse Medical reactions Center to substance Food Assertion Propensity Active [facility] Chocolate to adverse Medical reactions Center to substance Rubber Assertion Drug Active [facility] Immunizations Immunization Date Site Status Last Updated Comments Source Given Pneumovax completed [facility] [place] pneumococcal Left Arm completed Re[place] [facility] 23valent 8 [facility] vaccine [place],2.16.8 [id number] .[id number], KRYSTIN Mireles pneumococcal Left completed Ricafrente [facility] 23-valent 8 deltoid Medical vaccine [place],2.16.8 [id number] .[id number], KRYSTIN Aline Results Order Name Results Value Reference Date Interpretation Comments Source Range Culture: 10,000 - 50,000 CFU/mL Pseudomonas Species 01/[address] [facility] Urine Identification And Sensitivity To Follow [facility] URINE AND UA Bili Negative Negative 01/[address] [facility] STOOL *NA* /2018 [facility] (01/31/19 1:14 AM) [place] URINE AND UA Glucose Negative Negative 01/31 [facility] (01/31/19 1:14 AM) [facility] URINE AND UA Ketones Negative Negative 01/31 [facility] *NA* [facility] (01/31/19 1:14 AM) [place] URINE AND UA Blood Small Negative 01/31 [facility] *ABN* [facility] (01/31/19 1:14 AM) [place] URINE AND UA Protein Trace Negative 01/31 [facility] *ABN* [facility] (01/31/19 1:14 AM) [place] URINE AND UA RBC None Seen 0 - 2 01/31 [facility] (01/31/19 1:14 AM) [facility] URINE AND UA WBC 11-20 /HPF None Seen 01/[address] [facility] STOOL /HPF /2018 [facility] URINE AND UA Amorph Few /HPF None Seen 01/31 [facility] Viky /HPF /2018 [facility] URINE AND UA CaOx Viky Moderate None Seen 01/[address] [facility] STOOL /HPF /HPF /2018 [facility] URINE AND UA Bacteria Moderate None Seen 01/[address] [facility] STOOL /HPF /HPF /2018 [facility] URINE AND UA [place] Yeast Rare 01/31 [facility] URINE AND UA 0.2 0.1 - 1.0 01/31 [facility] Urobilinogen /2018 [facility] URINE AND UA Nitrite Negative Negative 01/31 [facility] (01/31/19 1:14 AM) [facility] URINE AND UA Leuk Est Small Negative 01/31 [facility] *ABN* [facility] (01/31/19 1:14 AM) [place] URINE AND UA Sq Epi Few /LPF Few /LPF 01/31 [facility] URINE AND UA Color Yellow Yellow 01/31 [facility] *NA* /2018 [facility] (01/31/19 1:14 AM) [place] URINE AND UA Turbidity Slight Cloudy Clear 01/[address] [facility] STOOL (01/31/19 1:14 AM) /2018 [facility] URINE AND UA Spec Grav 1.020 <=1.030 01/31 [facility] URINE AND UA pH 6.5 5.0 - 8.0 01/31 [facility] HEMATOLOGY Platelet 515 133 - 450 01/[address] [facility] Count Blue [facility] CHEM PANEL eGFR 139 01/31 Result Comment: [facility] eGFR is Center calculated using the CKD-EPI formula. In most young, healthy individuals the eGFR will be >90 mL/min/1.73m2 . The eGFR declines with age. An eGFR of 60-89 may be normal in some populations, particularly the elderly, for whom the CKD-EPI formula has not been extensively validated. Use of the eGFR is not recommended in the following populations:< br/>
Alayna viduals with unstable creatinine concentration s, including patients and those with serious co-morbid conditions.<b r/>
Patie nts with extremes in muscle mass or diet.

The data above are obtained from the National Kidney Disease Education Program (NKDEP) which additionally recommends that when the eGFR is used in patients with extremes of body mass index for purposes of drug dosing, the eGFR should be multiplied by the estimated BMI. CHEM PANEL Calcium Lvl 8.9 8.5 - 10.5 01/[address] [facility] CHEM PANEL Creatinine 0.52 0.50 - 01/[address] [facility] Lvl 1.40 [facility] CHEM PANEL Sodium Lvl 142 135 - 145 01/31 [facility]2018 [facility] CHEM PANEL Potassium 3.7 3.5 - 5.1 01/31 [facility] CHEM PANEL Chloride Lvl 107 95 - 109 01/31 [facility]2018 [facility] CHEM PANEL CO2 26 24 - 32 01/[address] CHEM PANEL Glucose Lvl 84 70 - 99 01/[address] CHEM PANEL BUN 10 7 - 22 01/31 [facility]2018 [facility] CHEM PANEL AGAP 12.7 10.0 - 01/[address] [facility] 20.0 [facility] HEMATOLOGY Eosinophils 3.4 0.0 - 4.0 01/31 [facility] HEMATOLOGY Monocytes 11.4 2.0 - 12.0 01/31 [facility] HEMATOLOGY Basophils 0.4 0.0 - 1.0 01/31 [facility] HEMATOLOGY Monocytes # 1.0 0.0 - 0.8 01/31 [facility] HEMATOLOGY Anisocyte 1+ None Seen 01/31 [facility] (01/30/19 11:58 PM) [place] HEMATOLOGY Neutrophils 4.6 1.5 - 8.1 01/31 [facility] HEMATOLOGY Lymphocytes 3.0 1.0 - 5.5 01/31 [facility] HEMATOLOGY Eosinophils 0.3 0.0 - 0.5 01/31 [facility] HEMATOLOGY Microcyte 2+ None Seen 01/31 [facility] (01/30/19 11:58 PM) [place] HEMATOLOGY Polychrom Few 01/31 [facility] HEMATOLOGY Hypochrom 1+ None Seen 01/[address] [facility] (01/30/19 11:58 PM) [facility] HEMATOLOGY Plt Morph Clumped Normal 01/[address] [facility] (01/30/19 11:58 PM) [facility] HEMATOLOGY Segs 51.3 45.0 - 01/31 [place] 75.0 [facility] HEMATOLOGY Lymphocytes 33.5 20.0 - 01/31 [place] 40.0 [facility] HEMATOLOGY Hct 31.7 36.0 - 01/31 [place] 48.0 [facility] HEMATOLOGY WBC 9.0 3.7 - 10.4 01/31 [facility] HEMATOLOGY RBC 4.32 4.20 - 01/31 [place] 5.40 /2018 [facility] HEMATOLOGY Hgb 10.1 12.0 - 01/31 [place] 16.0 [facility] HEMATOLOGY MCV 73.4 80.0 - 01/31 [place] 98.0 2019 [facility] HEMATOLOGY MCHC 31.9 32.0 - 01/31 [place] 36.0 [facility] HEMATOLOGY MCH 23.4 27.0 - 01/31 [place] 31.0 [facility] HEMATOLOGY Platelet Clumped 133 - 450 01/31 [facility] Comment: Medical Platelets Center clumped in EDTA, unable to estimate, suggest recollection in a blue top tube with an order for "Blue Top Platelet Count"
<b r/>notified rn Nelly Marsh for recollect of blue top. HEMATOLOGY RDW 23.4 11.5 - [address] [facility] 14.5 [facility] HEMATOLOGY MPV xxxxxxx 7.4 - 10.4 01/[address] [facility] (01/30/19 11:58 PM) [facility] URINE CHEM U Preg Negative Negative 01/[address] [facility] (01/22/19 3:38 AM) [facility] CHEM PANEL Lactic Acid 0.8 0.5 - 2.2 01/[address] [facility] Lvl /2018 [facility] HEMATOLOGY PT 13.3 12.0 - 01/[address] [facility] 14.7 [facility] HEMATOLOGY INR 1.03 0.85 - 01/[address] [facility] 1.17 [facility] HEMATOLOGY PTT 35.2 22.9 - 01/[address] [facility] 35.8 [facility] URINE AND UA Bili Negative Negative 01/[address] [facility] STOOL *NA* /2018 [facility] (01/22/19 3:34 AM) [place] URINE AND UA Protein 30 mg/dL Negative 01/[address] [facility] STOOL mg/dL /2018 [facility] URINE AND UA Ketones Negative Negative 01/[address] [facility] STOOL *NA* /2018 [facility] (01/22/19 3:34 AM) [place] URINE AND UA Glucose Negative Negative 01/22 [facility] (01/22/19 3:34 AM) /2018 [facility] URINE AND UA pH 6.5 5.0 - 8.0 01/[address] [facility] STOOL /2018 [facility] URINE AND UA Leuk Est Small Negative 01/[address] [facility] STOOL *ABN* /2018 [facility] (01/22/19 3:34 AM) [place] URINE AND UA Nitrite Negative Negative 01/22 [facility] (01/22/19 3:34 AM) /2018 [facility] URINE AND UA 0.2 0.1 - 1.0 01/[address] [facility] STOOL Urobilinogen /2018 [facility] URINE AND UA Blood Small Negative 01/[address] [facility] STOOL *ABN* /2018 [facility] (01/22/19 3:34 AM) [place] URINE AND UA Color Yellow Yellow 01/[address] [facility] STOOL *NA* /2018 [facility] (01/22/19 3:34 AM) [place] URINE AND UA Spec Grav 1.020 <=1.030 01/22 [facility] URINE AND UA Turbidity Slight Cloudy Clear 01/[address] [facility] STOOL (01/22/19 3:34 AM) [facility] URINE AND UA Bacteria Few /HPF None Seen 01/[address] [facility] STOOL /HPF /2018 [facility] URINE AND UA Mucus Few /LPF None Seen 01/[address] [facility] STOOL /LPF /2018 [facility] URINE AND UA RBC 3-5 /HPF 0 - 2 01/22 [facility] URINE AND UA CaOx Viky Occasional None Seen 01/[address] [facility] STOOL /HPF /HPF [facility] URINE AND UA Sq Epi Rare /LPF Few /LPF 01/22 [facility] URINE AND UA WBC 3-5 /HPF None Seen 01/[address] [facility] STOOL /HPF [facility] BLOOD BANK Antibody Negative 01/[address] [facility] RESULTS Scrn (01/22/19 3:08 AM) [facility] BLOOD BANK ABO/Rh A NEG 01/[address] [facility] RESULTS [facility] ELECTROLYT AGAP 12.5 10.0 - 01/[address] [facility] ES 20.0 [facility] ELECTROLYT eGFR 128 01/[address] [facility] Comment: The Medical eGFR is Center calculated using the CKD-EPI formula. In most young, healthy individuals the eGFR will be >90 mL/min/1.73m2 . The eGFR declines with age. An eGFR of 60-89 may be normal in some populations, particularly the elderly, for whom the CKD-EPI formula has not been extensively validated. Use of the eGFR is not recommended in the following populations:< br/>
Alayna viduals with unstable creatinine concentration s, including patients and those with serious co-morbid conditions.<b r/>
Patie nts with extremes in muscle mass or diet.

The data above are obtained from the National Kidney Disease Education Program (NKDEP) which additionally recommends that when the eGFR is used in patients with extremes of body mass index for purposes of drug dosing, the eGFR should be multiplied by the estimated BMI. ELECTROLYT Calcium Lvl 8.9 8.5 - 10.5 01/22 [facility] ELECTROLYT CO2 26 24 - 32 01/22 [facility] ELECTROLYT Sodium Lvl 138 135 - 145 01/[address] [facility] ELECTROLYT Creatinine 0.67 0.50 - 01/[address] [facility] ES Lvl 1.40 [facility] ELECTROLYT Chloride Lvl 103 95 - 109 01/[address] [facility] ELECTROLYT Potassium 3.5 3.5 - 5.1 01/[address] [facility] ES Lvl /2018 [facility] ELECTROLYT Glucose Lvl 89 70 - 99 01/[address] [facility] ELECTROLYT BUN 11 7 - 22 01/[address] [facility] HEMATOLOGY MPV ----- 7.4 - 10.4 01/[address] [facility] (01/22/19 3:08 AM) /2018 [facility] HEMATOLOGY Platelet Clumped 133 - 450 01/22 [facility] HEMATOLOGY RDW 23.9 11.5 - 01/[address] [facility] 14. [facility] HEMATOLOGY MCV 73.7 80.0 - 01/[address] [facility] 98.0 [facility] HEMATOLOGY MCH 23.2 27.0 - 01/22 [place] 31.0 [facility] HEMATOLOGY Hct 32.3 36.0 - 01/22 [place] 48.0 [facility] HEMATOLOGY MCHC 31.5 32.0 - 01/22 [place] 36.0 [facility] HEMATOLOGY RBC 4.38 4.20 - 01/22 [place] 5.40 [facility] HEMATOLOGY Hgb 10.2 12.0 - 01/22 [place] 16.0 [facility] HEMATOLOGY WBC 10.6 3.7 - 10.4 01/22 [facility] HEMATOLOGY Eosinophils 5.7 0.0 - 4.0 01/22 [facility] HEMATOLOGY Monocytes 7.9 2.0 - 12.0 01/22 [facility] HEMATOLOGY Lymphocytes 2.9 1.0 - 5.5 01/[address] [facility] # [facility] HEMATOLOGY Neutrophils 6.2 1.5 - 8.1 01/[address] [facility] HEMATOLOGY Basophils 0.5 0.0 - 1.0 01/22 [facility] HEMATOLOGY Lymphocytes 27.0 20.0 - 01/22 [place] 40.0 [facility] HEMATOLOGY Plt Morph Clumped Normal 01/[address] [facility] (01/22/19 3:08 AM) [facility] HEMATOLOGY Segs 58.9 45.0 - 01/[address] [facility] 75.0 [facility] HEMATOLOGY Microcyte 2+ None Seen 01/[address] [facility] *ABN* [facility] (01/22/19 3:08 AM) [place] HEMATOLOGY Basophils # 0.1 0.0 - 0.2 01/22 [facility] HEMATOLOGY Monocytes # 0.8 0.0 - 0.8 01/22 [facility] HEMATOLOGY Eosinophils 0.6 0.0 - 0.5 01/22 [place] # [facility] HEMATOLOGY Anisocyte 1+ None Seen 01/[address] [facility] *ABN* [facility] (01/22/19 3:08 AM) [place] CHEM PANEL Creatinine 0.51 0.50 - 01/[address] [facility] Lvl 1.40 [facility] CHEM PANEL BUN 9 7 - 22 01/15 [facility] CHEM PANEL Sodium Lvl 138 135 - 145 01/15 [facility] CHEM PANEL Glucose Lvl 60 70 - 99 01/15 [facility] CHEM PANEL eGFR 140 01/15 Result Comment: [facility] eGFR is Center calculated using the CKD-EPI formula. In most young, healthy individuals the eGFR will be >90 mL/min/1.73m2 . The eGFR declines with age. An eGFR of 60-89 may be normal in some populations, particularly the elderly, for whom the CKD-EPI formula has not been extensively validated. Use of the eGFR is not recommended in the following populations:< br/>
Alayna viduals with unstable creatinine concentration s, including patients and those with serious co-morbid conditions.<b r/>
Patie nts with extremes in muscle mass or diet.

The data above are obtained from the National Kidney Disease Education Program (NKDEP) which additionally recommends that when the eGFR is used in patients with extremes of body mass index for purposes of drug dosing, the eGFR should be multiplied by the estimated BMI. CHEM PANEL AGAP 11.3 10.0 - 01/[address] [facility] 20.0 [facility] CHEM PANEL Potassium 4.3 3.5 - 5.1 01/[address] [facility] Lvl [facility] CHEM PANEL Calcium Lvl 8.4 8.5 - 10.5 01/15 [facility] CHEM PANEL CO2 19 24 - 01/15 [facility] CHEM PANEL Chloride Lvl 112 95 - 109 01/15 [facility] CHEM PANEL Creatinine 0.53 0.50 - 01/[address] [facility] Lvl 1.40 [facility] CHEM PANEL Chloride Lvl 111 95 - 109 01/14 2018 [facility] CHEM PANEL CO2 22 24 - 32 01/14 2018 [facility] CHEM PANEL Sodium Lvl 140 135 - 145 01/14 2018 [facility] CHEM PANEL AGAP 9.9 10.0 - 01/[address] [facility] CHEM PANEL eGFR 138 01/14 Result Comment: The Medical eGFR is Center calculated using the CKD-EPI formula. In most young, healthy individuals the eGFR will be >90 mL/min/1.73m2 . The eGFR declines with age. An eGFR of 60-89 may be normal in some populations, particularly the elderly, for whom the CKD-EPI formula has not been extensively validated. Use of the eGFR is not recommended in the following populations:< br/>
Laayna viduals with unstable creatinine concentration s, including patients and those with serious co-morbid conditions.<b r/>
Patie nts with extremes in muscle mass or diet.

The data above are obtained from the National Kidney Disease Education Program (NKDEP) which additionally recommends that when the eGFR is used in patients with extremes of body mass index for purposes of drug dosing, the eGFR should be multiplied by the estimated BMI. CHEM PANEL Calcium Lvl 8.5 8.5 - 10.5 01/14 [facility] CHEM PANEL Glucose Lvl 89 70 - 99 01/14 [facility] CHEM PANEL BUN 7 7 - 22 01/14 [facility] CHEM PANEL Potassium 2.9 3.5 - 5.1 01/[address] [facility] Comment: Medical Critical Center Result(s) called to ARUN ZULETA at [facility]. Read back OK. ELECTROLYT AGAP 9.7 10.0 - 01/12 [facility] . [facility] ELECTROLYT CO2 23 24 - 32 01/[address] [facility] ELECTROLYT Chloride Lvl 112 95 - 109 01/12 [facility] ELECTROLYT Calcium Lvl 8.2 8.5 - 10.5 01/12 [facility] ELECTROLYT eGFR 137 01/12 Result [facility] Comment: [facility] eGFR is Center calculated using the CKD-EPI formula. In most young, healthy individuals the eGFR will be >90 mL/min/1.73m2 . The eGFR declines with age. An eGFR of 60-89 may be normal in some populations, particularly the elderly, for whom the CKD-EPI formula has not been extensively validated. Use of the eGFR is not recommended in the following populations:< br/>
Alayna viduals with unstable creatinine concentration s, including patients and those with serious co-morbid conditions.<b r/>
Patie nts with extremes in muscle mass or diet.

The data above are obtained from the National Kidney Disease Education Program (NKDEP) which additionally recommends that when the eGFR is used in patients with extremes of body mass index for purposes of drug dosing, the eGFR should be multiplied by the estimated BMI. ELECTROLYT Glucose Lvl 107 70 - 99 01/12 [facility] ELECTROLYT Creatinine 0.55 0.50 - 01/12 [facility] Lvl 1.40 [facility] ELECTROLYT BUN 11 7 - 22 01/12 [facility] ELECTROLYT Sodium Lvl 141 135 - 145 01/12 [facility] ELECTROLYT Potassium 3.7 3.5 - 5.1 01/12 [facility] /2018 [facility] HEMATOLOGY Hgb 10.2 12.0 - 01/[address] [facility] 16.0 [facility] AMIKACIN:S Culture: >10,000/cfu/ml Escherichia coli 01/12 [facility]:PT:ISO Urine >10,000/cfu/ml Enterococcus Species /2018 Medical LATE:ORDQN Center :[place] AMIKACIN:S Enterococcus Enterococc 01/12 [facility]:PT:ISO Species us Species /2018 Medical LATE:ORDQN Center :[place] AMIKACIN:S Escherichia Escherichi 01/12 [facility]:PT:ISO coli a coli /2018 Medical LATE:ORDQN Center :[place] BLOOD BANK Antibody Negative 01/[address] [facility] RESULTS Scrn (01/12/19 8:53 AM) /2018 [facility] BLOOD BANK ABO/Rh A NEG 01/[address] [facility] CHEM PANEL Magnesium 1.8 1.8 - 2.4 12/19 [facility] CHEM PANEL Phosphorus 4.3 2.5 - 4.5 12/19 [facility]2018 [facility] CHEM PANEL eGFR 134 12/19 Result Comment: The Medical eGFR is Center calculated using the CKD-EPI formula. In most young, healthy individuals the eGFR will be >90 mL/min/1.73m2 . The eGFR declines with age. An eGFR of 60-89 may be normal in some populations, particularly the elderly, for whom the CKD-EPI formula has not been extensively validated. Use of the eGFR is not recommended in the following populations:< br/>
Alayna viduals with unstable creatinine concentration s, including patients and those with serious co-morbid conditions.<b r/>
Patie nts with extremes in muscle mass or diet.

The data above are obtained from the National Kidney Disease Education Program (NKDEP) which additionally recommends that when the eGFR is used in patients with extremes of body mass index for purposes of drug dosing, the eGFR should be multiplied by the estimated BMI. CHEM PANEL Total 8.4 6.4 - 8.4 12/[address] [facility] CHEM PANEL CO2 26 24 - 32 12/[address] CHEM PANEL Calcium Lvl 9.3 8.5 - 10.5 12/[address] CHEM PANEL Potassium 3.7 3.5 - 5.1 12/19 [facility] CHEM PANEL Chloride Lvl 109 95 - 109 12/[address] CHEM PANEL Bili Total 0.3 0.2 - 1.3 12/[address] CHEM PANEL Alk Phos 75 39 - 136 12/[address] CHEM PANEL Albumin Lvl 3.1 3.5 - 5.0 12/[address] CHEM PANEL AST 20 0 - 37 12/[address] CHEM PANEL ALT 20 0 - 65 12/[address] CHEM PANEL Glucose Lvl 86 70 - 99 12/[address] CHEM PANEL BUN 11 7 - 22 12/19 [facility] CHEM PANEL Sodium Lvl 141 135 - 145 12/19 [facility] CHEM PANEL Creatinine 0.58 0.50 - 12/[address] [facility] Lvl 1.40 [facility] CHEM PANEL A/G Ratio 0.6 0.7 - 1.6 12/19 2018 [facility] CHEM PANEL B/C Ratio 19 6 - 25 12/19 2018 [facility] CHEM PANEL Globulin 5.3 2.7 - 4.2 12/19 2018 [facility] CHEM PANEL AGAP 9.7 10.0 - 12/19 [place] 20.0 [facility] HEMATOLOGY MCHC 31.3 32.0 - 12/19 [place] 36.0 [facility] HEMATOLOGY Hct 31.8 36.0 - 12/19 [place] 48.0 [facility] HEMATOLOGY MCV 69.8 80.0 - 12/19 [place] 98.0 [facility] HEMATOLOGY MCH 21.9 27.0 - 12/19 [place] 31.0 [facility] HEMATOLOGY RDW 25.2 11.5 - 12/19 [place] 14.5 [facility] HEMATOLOGY Hgb 10.0 12.0 - 12/19 [place] 16.0 [facility] HEMATOLOGY WBC 6.7 3.7 - 10.4 12/19 [facility] HEMATOLOGY RBC 4.56 4.20 - 12/19 [place] 5.40 [facility] HEMATOLOGY MPV 9.1 7.4 - 10.4 12/19 2018 [facility] HEMATOLOGY Platelet clumped 133 - 450 12/19 [facility] HEMATOLOGY Segs 53.6 45.0 - 12/19 [place] 75.0 [facility] HEMATOLOGY Plt Morph Clumped Normal 12/[address] [facility] (12/19/18 4:22 AM) /2018 [facility] HEMATOLOGY Microcyte 2+ None Seen 12/19 [place] *ABN* /2018 [facility] (12/19/18 4:22 AM) [place] HEMATOLOGY Anisocyte 1+ None Seen 12/19 [place] *ABN* /2018 [facility] (12/19/18 4:22 AM) [place] HEMATOLOGY Eosinophils 0.3 0.0 - 0.5 12/19 [place] # /2018 [facility] HEMATOLOGY Monocytes # 0.8 0.0 - 0.8 12/19 [facility] HEMATOLOGY Lymphocytes 2.0 1.0 - 5.5 12/[address] [facility] # [facility] HEMATOLOGY Neutrophils 3.6 1.5 - 8.1 12/[address] [facility] 2018 [facility] HEMATOLOGY Basophils 0.5 0.0 - 1.0 12/19 [facility]2018 [facility] HEMATOLOGY Eosinophils 4.2 0.0 - 4.0 12/19 [facility]2018 [facility] HEMATOLOGY Monocytes 11.8 2.0 - 12.0 12/19 [facility]2018 [facility] HEMATOLOGY Lymphocytes 29.9 20.0 - 12/19 [place] 40.0 [facility] CHEM PANEL Phosphorus 4.2 2.5 - 4.5 12/18 [facility]2018 [facility] CHEM PANEL Magnesium 1.9 1.8 - 2.4 12/[address] [facility] l [facility] ELECTROLYT AGAP 11.9 10.0 - 12/18 [facility] 20.0 [facility] ELECTROLYT B/C Ratio 23 6 - 25 12/18 [facility] ELECTROLYT A/G Ratio 0.6 0.7 - 1.6 12/18 [facility] ELECTROLYT Globulin 5.2 2.7 - 4.2 12/18 [facility] ELECTROLYT eGFR 133 12/18 Result [facility] Comment: The Medical eGFR is Center calculated using the CKD-EPI formula. In most young, healthy individuals the eGFR will be >90 mL/min/1.73m2 . The eGFR declines with age. An eGFR of 60-89 may be normal in some populations, particularly the elderly, for whom the CKD-EPI formula has not been extensively validated. Use of the eGFR is not recommended in the following populations:< br/>
Alayna viduals with unstable creatinine concentration s, including patients and those with serious co-morbid conditions.<b r/>
Patie nts with extremes in muscle mass or diet.

The data above are obtained from the National Kidney Disease Education Program (NKDEP) which additionally recommends that when the eGFR is used in patients with extremes of body mass index for purposes of drug dosing, the eGFR should be multiplied by the estimated BMI. ELECTROLYT Creatinine 0.60 0.50 - 12/18 [facility] Lvl 1.40 [facility] Center ELECTROLYT BUN 14 7 - 22 12/[address] [facility] ELECTROLYT ALT 17 0 - 65 12/[address] [facility] ELECTROLYT Albumin Lvl 3.1 3.5 - 5.0 12/[address] [facility] ELECTROLYT Bili Total 0.2 0.2 - 1.3 12/18 [facility] ELECTROLYT Alk Phos 75 39 - 136 12/[address] [facility] ELECTROLYT CO2 25 24 - 32 12/[address] [facility] ELECTROLYT Glucose Lvl 85 70 - 99 12/[address] [facility] ELECTROLYT Sodium Lvl 143 135 - 145 12/[address] [facility] ELECTROLYT AST 15 0 - 37 12/[address] [facility] ELECTROLYT Chloride Lvl 110 95 - 109 12/[address] [facility] ELECTROLYT Potassium 3.9 3.5 - 5.1 12/18 [facility] ELECTROLYT Total 8.3 6.4 - 8.4 12/[address] [facility] ELECTROLYT Calcium Lvl 9.3 8.5 - 10.5 12/[address] [facility] HEMATOLOGY WBC X 10x3 5.5 3.7 - 10.4 12/18 [facility] HEMATOLOGY Hgb 9.9 12.0 - 12/[address] [facility] 16.0 [facility] HEMATOLOGY RBC X 10x6 4.44 4.20 - 12/18 5.40 [facility] HEMATOLOGY Hct 30.8 36.0 - 12/18 48.0 2019 [facility] HEMATOLOGY MCH 22.2 27.0 - 12/18 31.0 [facility] HEMATOLOGY RDW 25.5 11.5 - 12/18 14.5 [facility] HEMATOLOGY MCV 69.5 80.0 - 12/18 98.0 2019 [facility] HEMATOLOGY MCHC 32.0 32.0 - 12/[address] [facility] 36.0 [facility] HEMATOLOGY MPV 8.7 7.4 - 10.4 12/18 [facility] HEMATOLOGY Platelet xxxxxxx 1 133 - 450 12/[address] [facility] (12/18/18 2:38 AM) /2018 Comment: Medical Platelets Center clumped in EDTA, unable to estimate, suggest recollection in a blue top tube with an order for "Blue Top Platelet Count" HEMATOLOGY Eosinophils 5.5 0.0 - 4.0 12/18 [facility] HEMATOLOGY Monocytes 13.1 2.0 - 12.0 12/18 2018 [facility] HEMATOLOGY Lymphocytes 26.4 20.0 - 12/18 [place] 40.0 [facility] HEMATOLOGY Segs 54.3 45.0 - 12/18 [place] 75.0 [facility] HEMATOLOGY Basophils 0.7 0.0 - 1.0 12/18 [facility] HEMATOLOGY Anisocyte 1+ None Seen 12/[address] [facility] *ABN* [facility] (12/18/18 2:38 AM) [place] [facility]OLOGY [facility]cyte 2+ [facility]12/18/18 2:38 AM) [place] HEMATOLOGY Eosinophils 0.3 0.0 - 0.5 12/[address] [facility] # /2018 [facility] HEMATOLOGY Lymphocytes 1.5 1.0 - 5.5 12/[address] [facility] # /2018 [facility] HEMATOLOGY Neutrophils 3.0 1.5 - 8.1 12/[address] [facility] # /2018 [facility] HEMATOLOGY Monocytes # 0.7 0.0 - 0.8 12/18 [facility] CHEM PANEL Magnesium 2.0 1.8 - 2.4 12/[address] [facility] Lvl [facility] CHEM PANEL Phosphorus 4.4 2.5 - 4.5 12/17 [facility]2018 [facility] CHEM PANEL A/G Ratio 0.6 0.7 - 1.6 12/17 [facility] CHEM PANEL Globulin 5.2 2.7 - 4.2 12/17 [facility] CHEM PANEL B/C Ratio 22 6 - 25 12/17 [facility] CHEM PANEL AGAP 10.1 10.0 - 12/17 [place] 20.0 [facility] CHEM PANEL eGFR 133 12/17 Result Comment: The Medical eGFR is Center calculated using the CKD-EPI formula. In most young, healthy individuals the eGFR will be >90 mL/min/1.73m2 . The eGFR declines with age. An eGFR of 60-89 may be normal in some populations, particularly the elderly, for whom the CKD-EPI formula has not been extensively validated. Use of the eGFR is not recommended in the following populations:< br/>
Alayna viduals with unstable creatinine concentration s, including patients and those with serious co-morbid conditions.<b r/>
Patie nts with extremes in muscle mass or diet.

The data above are obtained from the National Kidney Disease Education Program (NKDEP) which additionally recommends that when the eGFR is used in patients with extremes of body mass index for purposes of drug dosing, the eGFR should be multiplied by the estimated BMI. CHEM PANEL Creatinine 0.59 0.50 - 12/[address] [facility] Lvl 1.40 [facility] CHEM PANEL BUN 13 7 - 22 12/[address] CHEM PANEL Sodium Lvl 138 135 - 145 12/[address] CHEM PANEL Potassium 4.1 3.5 - 5.1 12/17 [facility] /2018 [facility] CHEM PANEL Total 8.3 6.4 - 8.4 12/[address] [facility] Protein [facility] CHEM PANEL Albumin Lvl 3.1 3.5 - 5.0 12/[address] CHEM PANEL Chloride Lvl 108 95 - 109 12/[address] CHEM PANEL CO2 24 24 - 32 12/[address] CHEM PANEL ALT 18 0 - 65 12/[address] CHEM PANEL Calcium Lvl 9.3 8.5 - 10.5 12/[address] CHEM PANEL Alk Phos 82 39 - 136 12/[address] CHEM PANEL AST 17 0 - 37 12/[address] CHEM PANEL Glucose Lvl 70 70 - 99 12/[address] CHEM PANEL Bili Total 0.2 0.2 - 1.3 12/[address] HEMATOLOGY MPV xxxxxxx 7.4 - 10.4 12/[address] [facility] (12/17/18 4:36 AM) [facility] HEMATOLOGY Platelet See Note 2 133 - 450 12/17 [facility] (12/17/18 4:36 AM) Comment: Medical Platelets Center clumped in EDTA, unable to estimate, suggest recollection in a blue top tube with an order for "Blue Top Platelet Count" HEMATOLOGY [facility] 31.4 32.0 - 12/17 [place] 36.0 /2018 [facility] HEMATOLOGY Hct 32.9 36.0 - 12/17 [place] 48.0 [facility] HEMATOLOGY MCV 69.9 80.0 - 12/17 [place] 98.0 [facility] HEMATOLOGY MCH 22.0 27.0 - 12/17 [place] 31.0 [facility] HEMATOLOGY WBC 6.9 3.7 - 10.4 12/17 [facility] HEMATOLOGY RBC 4.70 4.20 - 12/17 [place] 5.40 [facility] HEMATOLOGY Hgb 10.3 12.0 - 12/17 [place] 16.0 [facility] HEMATOLOGY RDW 25.3 11.5 - 12/17 [place] 14.5 [facility] HEMATOLOGY Microcyte 2+ None Seen 12/17 [place] *ABN* /2018 [facility] (12/17/18 4:36 AM) [place] HEMATOLOGY Monocytes # 0.9 0.0 - 0.8 12/17 [facility] HEMATOLOGY Eosinophils 0.4 0.0 - 0.5 12/17 [place] # [facility] HEMATOLOGY Lymphocytes 2.1 1.0 - 5.5 12/17 [place] [facility] HEMATOLOGY Anisocyte 1+ None Seen 12/[address] [facility] *ABN* /2018 [facility] (12/17/18 4:36 AM) [place] HEMATOLOGY Basophils # 0.1 0.0 - 0.2 12/17 [facility] HEMATOLOGY Eosinophils 5.8 0.0 - 4.0 12/17 [facility] HEMATOLOGY Lymphocytes 30.7 20.0 - 12/17 [place] 40.0 [facility] HEMATOLOGY Monocytes 12.6 2.0 - 12.0 12/17 [facility] HEMATOLOGY Neutrophils 3.4 1.5 - 8.1 12/17 [place] # [facility] HEMATOLOGY Basophils 0.9 0.0 - 1.0 12/17 [facility] HEMATOLOGY Segs 50.0 45.0 - 12/17 [place] 75.0 [facility] HEMATOLOGY Schistocyte 1-3 per HPF None Seen 12/[address] [facility] (12/16/18 4:36 AM) /2018 [facility] HEMATOLOGY Plt Morph Clumped Normal 12/[address] [facility] (12/16/18 4:36 AM) /2018 [facility] HEMATOLOGY Plt Morph Clumped Normal 12/15 [place] (12/15/18 3:46 AM) /2018 [facility] AMPICILLIN Culture: >100,000 CFU/mL Enterococcus Species 12/[address] [facility] :SUSC:PT:I Urine 50,000 - 100,000 CFU/mL Proteus vulgaris [facility] Center QN:CAPRICE AMPICILLIN Proteus Proteus 12/[address] [facility] :SUSC:PT:I vulgaris vulgaris Medical [facility] Center QN:[facility] AMPICILLIN Enterococcus Enterococc 12/[address] [facility] :SUSC:PT:I Species us Species /2018 Medical [facility] Center QN:CAPRICE MOLECULAR mecA Not Detected Not 12/[address] [facility] DIAGNOSTIC Methicillin (12/14/18 6:24 AM) Detected [facility] MOLECULAR vanB Not Detected Not 12/[address] [facility] DIAGNOSTIC Vancomycin (12/14/18 6:24 AM) Detected [facility] MOLECULAR Pepe Not Detected Not 12/[address] [facility] DIAGNOSTIC Vancomycin (12/14/18 6:24 AM) Detected [facility] MOLECULAR Staphylococc Detected Not 12/[address] [facility] DIAGNOSTIC us spp. *ABN* Detected /2018 [facility] (12/14/18 6:24 AM) [place] MOLECULAR Streptococcu Not Detected Not 12/[address] [facility] DIAGNOSTIC s spp. (12/14/18 6:24 AM) Detected [facility] MOLECULAR Listeria Not Detected Not 12/[address] [facility] DIAGNOSTIC spp. (12/14/18 6:24 AM) Detected [facility] MOLECULAR E. faecium Not Detected Not 12/[address] [facility] DIAGNOSTIC (12/14/18 6:24 AM) Detected [facility] MOLECULAR S. Not Detected Not 12/[address] [facility] DIAGNOSTIC pneumoniae (12/14/18 6:24 AM) Detected [facility] MOLECULAR S. pyogenes Not Detected Not 12/[address] [facility] DIAGNOSTIC (12/14/18 6:24 AM) Detected [facility] MOLECULAR E. faecalis Not Detected Not 12/[address] [facility] DIAGNOSTIC (12/14/18 6:24 AM) Detected [facility] MOLECULAR S. Not Detected Not 12/[address] [facility] DIAGNOSTIC agalactiae (12/14/18 6:24 AM) Detected [facility] MOLECULAR S. anginosus Not Detected Not 12/[address] [facility] DIAGNOSTIC grp (12/14/18 6:24 AM) Detected /2019 [facility] MOLECULAR S. Not Detected Not 12/[address] [facility] DIAGNOSTIC lugdunensis (12/14/18 6:24 AM) Detected [facility] MOLECULAR S. Not Detected Not 12/[address] [facility] DIAGNOSTIC epidermidis (12/14/18 6:24 AM) [facility] MOLECULAR S. aureus Not Detected Not 12/[address] [facility] DIAGNOSTIC (12/14/18 6:24 AM) Detected [facility] URINE AND UA Amorph Moderate None Seen 12/[address] [facility] STOOL Viky /HPF /HPF /2018 [facility] URINE AND UA WBC 21-50 /HPF None Seen 12/[address] [facility] STOOL /HPF /2018 [facility] URINE AND UA Bacteria Many /HPF None Seen 12/[address] [facility] STOOL /HPF [facility] URINE AND UA RBC 0-2 /HPF 0 - 2 12/[address] [facility] STOOL [facility] URINE AND UA Sq Epi None Seen Few 12/14 [facility] (12/14/18 4:23 AM) [facility] URINE AND UA 0.2 0.1 - 1.0 12/14 [facility] Urobilinogen /2018 [facility] URINE AND UA Blood Small Negative 12/[address] [facility] STOOL *ABN* /2018 [facility] (12/14/18 4:23 AM) [place] URINE AND UA Leuk Est Large Negative 12/14 [facility] *ABN* [facility] (12/14/18 4:23 AM) [place] URINE AND UA Nitrite Negative Negative 12/14 [facility] (12/14/18 4:23 AM) [facility] URINE AND UA pH 6.5 5.0 - 8.0 12/[address] [facility] STOOL [facility] URINE AND UA Spec Grav 1.020 <=1.030 12/[address] [facility] STOOL [facility] URINE AND UA Bili Negative Negative 12/[address] [facility] STOOL *NA* /2018 [facility] (12/14/18 4:23 AM) Center URINE AND UA Protein 30 mg/dL Negative 12/[address] [facility] STOOL mg/dL [facility] URINE AND UA Ketones 15 mg/dL Negative 12/14 [facility] mg/dL [facility] URINE AND UA Glucose Negative Negative 12/14 [facility] (12/14/18 4:23 AM) [facility] URINE AND UA Turbidity Cloudy Clear 12/[address] [facility] STOOL *ABN* /2018 [facility] (12/14/18 4:23 AM) [place] URINE AND UA Color Yellow Yellow 12/[address] [facility] STOOL *NA* /2018 [facility] (12/14/18 4:23 AM) [place] HEMATOLOGY Basophils # 0.1 0.0 - 0.2 12/14 [facility] HEMATOLOGY Schistocyte 1-3 per HPF None Seen 12/[address] [facility] (12/14/18 3:08 AM) /2018 [facility] CHEM PANEL Lactic Acid 1.1 0.5 - 2.2 12/14 [facility] HEMATOLOGY Basophils # 0.1 0.0 - 0.2 12/14 [facility] IMMUNOLOGY CDC HIV 4th Negative Negative 12/[address] [facility] GEN *NA* [facility] (12/14/18 1:53 AM) [place] BLOOD BANK Antibody Negative 04/[address] [facility] RESULTS Scrn (04/19/18 11:26 AM) /2017 [facility] BLOOD BANK ABO/Rh A NEG 04/[address] [facility] RESULTS /2017 [facility] BLOOD BANK RBC product Product available 04/[address] [facility] RESULTS (04/19/18 9:46 AM) /2017 [facility] CHEM PANEL Magnesium 2.1 1.8 - 2.4 04/18 [facility] CHEM PANEL Phosphorus 3.2 2.5 - 4.5 04/[address] [facility] CHEM PANEL eGFR 143 04/18 Result Comment: [facility] eGFR is Center calculated using the CKD-EPI formula. In most young, healthy individuals the eGFR will be >90 mL/min/1.73m2 . The eGFR declines with age. An eGFR of 60-89 may be normal in some populations, particularly the elderly, for whom the CKD-EPI formula has not been extensively validated. Use of the eGFR is not recommended in the following populations:< br/>
Alayna viduals with unstable creatinine concentration s, including patients and those with serious co-morbid conditions.<b r/>
Patie nts with extremes in muscle mass or diet.

The data above are obtained from the National Kidney Disease Education Program (NKDEP) which additionally recommends that when the eGFR is used in patients with extremes of body mass index for purposes of drug dosing, the eGFR should be multiplied by the estimated BMI. CHEM PANEL Glucose Lvl 88 70 - 99 04/18 [facility] CHEM PANEL Calcium Lvl 8.2 8.5 - 10.5 04/18 [facility] CHEM PANEL Chloride Lvl 103 95 - 109 04/18 [facility] CHEM PANEL CO2 25 24 - 32 04/18 [facility] CHEM PANEL Potassium 3.4 3.5 - 5.1 04/18 [place] Lvl /2017 [facility] CHEM PANEL Sodium Lvl 138 135 - 145 04/18 [facility] CHEM PANEL Creatinine 0.49 0.50 - 04/[address] [facility] Lvl 1.40 [facility] CHEM PANEL BUN 7 7 - 22 04/18 [facility] CHEM PANEL AGAP 13.4 10.0 - 04/18 20.0 [facility] HEMATOLOGY Platelet See Note 2 133 - 450 04/[address] [facility] (04/18/18 4:54 AM) Comment: Medical Platelets Center clumped in EDTA, unable to estimate, suggest recollection in a blue top tube with an order for "Blue Top Platelet Count"
No tified to nurse Dipti Keenan at 04/18/2018 07:55 HEMATOLOGY MPV xxxxxxx 7.4 - 10.4 04/[address] [facility] (04/18/18 4:54 AM) [facility] HEMATOLOGY WBC X 10x3 6.0 3.7 - 10.4 04/18 [facility] HEMATOLOGY RBC X 10x6 3.18 4.20 - 04/18 5.40 [facility] HEMATOLOGY Hgb 7.0 12.0 - 04/[address] [facility] 16. Comment: Medical Critical Center Result(s) called to Marlene Harvey at 04/18/2018 07:27 by CN. Read back OK. HEMATOLOGY Hct 22.4 36.0 - 04/18 [place] 48.0 [facility] HEMATOLOGY MCV 70.3 80.0 - 04/18 98.0 [facility] HEMATOLOGY MCHC 31.2 32.0 - 04/18 [place] 36.0 [facility] HEMATOLOGY RDW 23.1 11.5 - 04/18 [place] 14.5 [facility] HEMATOLOGY MCH 22.0 27.0 - 04/18 [place] 31.0 [facility] HEMATOLOGY Microcyte 2+ None Seen 04/18 [facility]* [facility] (04/18/18 4:54 AM) Center HEMATOLOGY Monocytes # 0.8 0.0 - 0.8 04/18 [facility] HEMATOLOGY Eosinophils 0.3 0.0 - 0.5 04/18 [facility] HEMATOLOGY Anisocyte 1+ None Seen 04/18 [facility]* [facility] (04/18/18 4:54 AM) Center HEMATOLOGY Basophils 0.5 0.0 - 1.0 04/18 [facility] HEMATOLOGY Neutrophils 3.4 1.5 - 8.1 04/18 [facility] HEMATOLOGY Segs 56.8 45.0 - 04/18 [place] 75.0 [facility] HEMATOLOGY Lymphocytes 1.5 1.0 - 5.5 04/18 [facility] HEMATOLOGY Lymphocytes 24.5 20.0 - 04/18 [place] 40.0 [facility] HEMATOLOGY Monocytes 14.0 2.0 - 12.0 04/18 [facility] HEMATOLOGY Eosinophils 4.2 0.0 - 4.0 04/18 [facility] CHEM PANEL eGFR 155 04/17 [facility] Comment: The Medical eGFR is Center calculated using the CKD-EPI formula. In most young, healthy individuals the eGFR will be >90 mL/min/1.73m2 . The eGFR declines with age. An eGFR of 60-89 may be normal in some populations, particularly the elderly, for whom the CKD-EPI formula has not been extensively validated. Use of the eGFR is not recommended in the following populations:< br/>
Alayna viduals with unstable creatinine concentration s, including patients and those with serious co-morbid conditions.<b r/>
Patie nts with extremes in muscle mass or diet.

The data above are obtained from the National Kidney Disease Education Program (NKDEP) which additionally recommends that when the eGFR is used in patients with extremes of body mass index for purposes of drug dosing, the eGFR should be multiplied by the estimated BMI. CHEM PANEL Glucose Lvl 79 70 - 99 04/17 [facility] CHEM PANEL BUN 6 7 - 22 04/17 2017 [facility] CHEM PANEL Creatinine 0.38 0.50 - 04/17 [place] Lvl 1.40 /2017 [facility] CHEM PANEL Sodium Lvl 137 135 - 145 04/17 [facility] CHEM PANEL Chloride Lvl 103 95 - 109 04/17 [facility] CHEM PANEL CO2 23 24 - 32 04/17 [facility] CHEM PANEL Calcium Lvl 7.7 8.5 - 10.5 04/17 [facility] CHEM PANEL Potassium 3.8 3.5 - 5.1 04/17 [facility] CHEM PANEL AGAP 14.8 10.0 - 04/17 [place] 20.0 [facility] CHEM PANEL Phosphorus 2.8 2.5 - 4.5 04/17 [facility] CHEM PANEL Magnesium 2.0 1.8 - 2.4 04/17 [facility] HEMATOLOGY RDW 22.4 11.5 - 04/[address] [facility] 14.5 [facility] HEMATOLOGY MCHC 31.9 32.0 - 04/17 36.0 [facility] HEMATOLOGY MCH 22.1 27.0 - 04/17 [place] 31.0 [facility] HEMATOLOGY Hgb 7.1 12.0 - 04/17 [place] 16.0 [facility] HEMATOLOGY RBC 3.23 4.20 - 04/17 [place] 5.40 [facility] HEMATOLOGY WBC 8.6 3.7 - 10.4 04/17 [facility] HEMATOLOGY Hct 22.4 36.0 - 04/17 [place] 48.0 [facility] HEMATOLOGY MCV 69.4 80.0 - 04/17 [place] 98.0 [facility] HEMATOLOGY MPV xxxxxxx 7.4 - 10.4 04/17 [facility] (04/17/18 3:57 AM) [facility] HEMATOLOGY Platelet See Note 3 133 - 450 04/[address] [facility] (04/17/18 3:57 AM) Comment: [facility] Platelets Center clumped in EDTA, unable to estimate, suggest recollection in a blue top tube with an order for "Blue Top Platelet Count.
No tified to nurse Anna Graves at 04/17/2018 08:34 HEMATOLOGY Microcyte 2+ None Seen 04/[address] [facility] *ABN* /2017 [facility] (04/17/18 3:57 AM) [place] HEMATOLOGY Eosinophils 0.2 0.0 - 0.5 04/17 [facility] /2018 [facility] HEMATOLOGY Anisocyte 1+ None Seen 04/[address] [facility] *ABN* /2017 [facility] (04/17/18 3:57 AM) [place] HEMATOLOGY Monocytes # 1.1 0.0 - 0.8 04/[address] HEMATOLOGY Lymphocytes 1.0 1.0 - 5.5 04/17 [facility] /2017 [facility] HEMATOLOGY Lymphocytes 11.9 20.0 - 04/17 [place] 40.0 [facility] HEMATOLOGY Monocytes 13.0 2.0 - 12.0 04/[address] HEMATOLOGY Eosinophils 2.5 0.0 - 4.0 04/[address] HEMATOLOGY Segs 72.2 45.0 - 04/[address] [facility] 75.0 /2017 [facility] HEMATOLOGY Basophils 0.4 0.0 - 1.0 04/[address] HEMATOLOGY Neutrophils 6.2 1.5 - 8.1 04/17 [facility] /[address] [place] [address] Culture: No Growth 04/[address] [facility] Urine [address] [place] [address] CHEM PANEL Albumin Lvl 1.9 3.5 - 5.0 04/[address] CHEM PANEL Alk Phos 69 39 - 136 04/[address] CHEM PANEL Bili Unable to 0.0 - 1.0 04/[address] [facility] Indirect [facility] CHEM PANEL Bili Total 0.3 0.2 - 1.3 04/[address] CHEM PANEL Bili Direct <0.1 0.0 - 0.3 04/[address] CHEM PANEL ALT 10 0 - 65 04/[address] CHEM PANEL AST 11 0 - 37 04/[address] CHEM PANEL A/G Ratio 0.5 0.7 - 1.6 04/[address] CHEM PANEL Albumin Lvl 2.0 3.5 - 5.0 04/[address] CHEM PANEL Globulin 4.3 2.7 - 4.2 04/[address] CHEM PANEL Total 6.3 6.4 - 8.4 04/[address] [facility] Protein /[address] [place] [address] CHEM PANEL Magnesium 2.2 1.8 - 2.4 04/16 [facility] /2018 [facility] CHEM PANEL Phosphorus 2.5 2.5 - 4.5 04/[address] [facility] ELECTROLYT AGAP 15.2 10.0 - 04/16 [facility] 20.0 [facility] ELECTROLYT eGFR 154 04/16 Result [facility] Comment: The Medical eGFR is Center calculated using the CKD-EPI formula. In most young, healthy individuals the eGFR will be >90 mL/min/1.73m2 . The eGFR declines with age. An eGFR of 60-89 may be normal in some populations, particularly the elderly, for whom the CKD-EPI formula has not been extensively validated. Use of the eGFR is not recommended in the following populations:< br/>
Alayna viduals with unstable creatinine concentration s, including patients and those with serious co-morbid conditions.<b r/>
Patie nts with extremes in muscle mass or diet.

The data above are obtained from the National Kidney Disease Education Program (NKDEP) which additionally recommends that when the eGFR is used in patients with extremes of body mass index for purposes of drug dosing, the eGFR should be multiplied by the estimated BMI. ELECTROLYT Glucose Lvl 84 70 - 99 04/16 [facility] ELECTROLYT BUN 5 7 - 22 04/16 [facility]2017 [facility] ELECTROLYT Creatinine 0.39 0.50 - 04/16 [facility] Lvl 1.40 [facility] ELECTROLYT Sodium Lvl 136 135 - 145 04/16 [facility]2017 [facility] ELECTROLYT Potassium 3.2 3.5 - 5.1 04/16 [facility] ELECTROLYT Chloride Lvl 103 95 - 109 04/16 [facility] ELECTROLYT CO2 21 24 - 32 04/16 [facility]2017 [facility] ELECTROLYT Calcium Lvl 7.7 8.5 - 10.5 04/16 [facility]2017 [facility] HEMATOLOGY Tear Cell Slight 04/16 [facility]2017 [facility] HEMATOLOGY Lymphocytes 11.7 20.0 - 04/[address] [facility] 40.0 [facility] HEMATOLOGY Segs 74.5 45.0 - 04/[address] [facility] 75.0 [facility] HEMATOLOGY Microcyte 2+ None Seen 04/[address] [facility] *ABN* /2017 [facility] (04/16/18 4:58 AM) [place] HEMATOLOGY Anisocyte 1+ None Seen 04/[address] [facility] *ABN* /2017 [facility] (04/16/18 4:58 AM) [place] HEMATOLOGY Eosinophils 0.2 0.0 - 0.5 04/[address] [facility] # /2017 [facility] HEMATOLOGY Lymphocytes 1.3 1.0 - 5.5 04/[address] [facility] # /2017 [facility] HEMATOLOGY Monocytes # 1.3 0.0 - 0.8 04/[address] [facility] HEMATOLOGY Basophils 0.3 0.0 - 1.0 04/[address] [facility] /2017 [facility] HEMATOLOGY Monocytes 11.8 2.0 - 12.0 04/16 [facility]2017 [facility] HEMATOLOGY Neutrophils 8.3 1.5 - 8.1 04/[address] [facility] # /2017 [facility] HEMATOLOGY Eosinophils 1.7 0.0 - 4.0 04/16 [facility]2017 [facility] HEMATOLOGY MPV xxxxxxx 7.4 - 10.4 04/[address] [facility] (04/16/18 4:58 AM) /2017 [facility] HEMATOLOGY Platelet See Note 4 133 - 450 04/16 [facility] (04/16/18 4:58 AM) Comment: Medical Platelets Center clumped in EDTA, unable to estimate, suggest recollection in a blue top tube with an order for "Blue Top Platelet Count"
no tified to nurse Terra Velazquez at 04/16/2018 08:09 HEMATOLOGY MCH 22.2 27.0 - 04/[address] [facility] 31.0 [facility] HEMATOLOGY MCV 70.2 80.0 - 04/[address] [facility] 98.0 [facility] HEMATOLOGY RDW 22.3 11.5 - 04/16 [place] 14.5 [facility] HEMATOLOGY MCHC 31.5 32.0 - 04/16 [place] 36.0 [facility] HEMATOLOGY Hct 22.6 36.0 - 04/16 [place] 48.0 [facility] HEMATOLOGY Hgb 7.1 12.0 - 04/[address] [facility] 16.0 [facility] HEMATOLOGY RBC 3.21 4.20 - 04/[address] [facility] 5.40 /2017 [facility] HEMATOLOGY WBC 11.2 3.7 - 10.4 04/[address] [facility] /[address] [place] [address] URINE AND UA <=1.0 0.1 - 1.0 04/16 [facility] [place] STOOL Urobilinogen mg/dL [facility] URINE AND UA Sq Epi None Seen 04/[address] [facility] STOOL /2017 [facility] URINE AND UA pH 6.5 5.0 - 8.0 04/16 [facility] URINE AND UA Color Yellow Yellow 04/16 [place] STOOL *NA* [facility] (04/16/18 4:58 AM) [place] URINE AND UA Turbidity Slight Clear 04/[address] [facility] STOOL *ABN* [facility] (04/16/18 4:58 AM) [place] URINE AND UA Protein 50 mg/dL Negative 04/[address] [facility] STOOL mg/dL [facility] URINE AND UA Spec Grav 1.010 <=1.030 04/16 [facility] URINE AND UA Mucus Few /LPF None Seen 04/[address] [facility] STOOL /LPF [facility] URINE AND UA WBC 24 0 - 5 04/16 [facility] URINE AND UA RBC >182 0 - 2 04/16 [facility] URINE AND UA Glucose Negative Negative 04/[address] [facility] STOOL mg/dL mg/dL [facility] URINE AND UA Bili Negative Negative 04/[address] [facility] STOOL *NA* [facility] (04/16/18 4:58 AM) [place] URINE AND UA Ketones 60 mg/dL Negative 04/[address] [facility] STOOL mg/dL [facility] URINE AND UA Blood Moderate Negative 04/[address] [facility] STOOL *ABN* [facility] (04/16/18 4:58 AM) [place] URINE AND UA Leuk Est Large Negative 04/[address] [facility] STOOL *ABN* [facility] (04/16/18 4:58 AM) [place] URINE AND UA Nitrite Negative Negative 04/[address] [facility] STOOL (04/16/18 4:58 AM) [facility] BODY Alb BF Type Pleural 04/15 [place] [facility]UIDS *NA* [facility] (04/15/18 10:34 AM) Center BODY Albumin BF 0.4 04/15 [place] FLUIDS [facility] BODY Clarity BF Clear Clear 04/15 [place] [facility] (04/15/18 10:34 AM) [facility] BODY RBC BF 14 04/[address] [facility] FLUIDS [facility] BODY Supernat BF Light Yellow Colorless 04/15 [place] [facility] *ABN* [facility] (04/15/18 10:34 AM) Center BODY Color BF Light Yellow Colorless 04/15 [place] [facility] (04/15/18 10:34 AM) /2017 Medical Center BODY CellCnt BF Pleural 04/[address] [facility] FLUIDS Type (04/15/18 10:34 AM) /2017 Medical Center BODY Macrophage 12 04/15 [place] FLUIDS BF Medical Center BODY Lymph BF 11 04/15 [place] FLUIDS [facility] BODY Segs BF 77 04/15 [place] FLUIDS [facility] BODY WBC BF 20 04/15 [place] [facility] BODY Prot BF Type Pleural 04/15 [place] [facility] *NA* /2017 Medical (04/15/18 10:34 AM) Center BODY Protein BF 0.8 04/[address] [facility] BODY Gluc BF Type Pleural 04/[address] [facility] FLUIDS *NA* /2017 Medical (04/15/18 10:34 AM) Center BODY Glucose BF 103 04/[address] [facility] FLUIDS [facility] BODY LDH BF Type Pleural 04/[address] [facility] FLUIDS *NA* /2017 Medical (04/15/18 10:34 AM) Center BODY LDH BF 17 04/[address] [facility] FLUIDS [facility] Gram Stain Gram Stain 04/[address] [facility] Report Performed Medical By: Center [facility] Culture: No Growth 04/[address] [facility] Aspirate/ Medical Center Fluid/Tissue CHEM PANEL LDH 293 98 - 192 04/15 [facility] [place] HEMATOLOGY INR 1.12 0.85 - 04/15 [place] . [facility] HEMATOLOGY PT 14.4 12.0 - 04/15 [place] 14. [facility] [place] HEMATOLOGY Plt Morph Clumped 04/15 [place] (04/15/18 12:02 AM) [facility] [place] HEMATOLOGY PTT 30.5 22.9 - 04/15 [place] 35. [facility] [place] CHEM PANEL LDH 184 98 - 192 04/14 [facility] [place] HEMATOLOGY PT 14.1 12.0 - 04/14 [place] 14. [facility] [place] HEMATOLOGY INR 1.09 0.85 - 04/14 [place] 1. [facility] [place] HEMATOLOGY PTT 33.3 22.9 - 04/14 [place] 35. Medical Center HEMATOLOGY PTT 43.9 22.9 - 04/14 [place] 35. [facility] [place] HEMATOLOGY Atypical 0.0 <=0.0 % 04/[address] [facility] Lymphs /2018 [facility] HEMATOLOGY Bands 0.0 0.0 - 11.0 04/14 [facility] PARATHYROI Ca Ion WB 1.19 1.05 - 04/14 [place] D PROFILE 09.23 [facility] PARATHYROI Ca Norm WB 1.18 1.05 - 04/14 [place] D PROFILE 09.23 [facility] HEMATOLOGY Platelet 261 133 - 450 04/[address] [facility] Count [facility] HEMATOLOGY Atypical 0.0 <=0.0 % 04/[address] [facility] Lymph [facility] HEMATOLOGY Bands 2.0 0.0 - 11.0 04/13 [facility] HEMATOLOGY INR 1.23 0.85 - 04/[address] [facility] 09.15 [facility] HEMATOLOGY PT 15.6 12.0 - 04/13 [place] 14. [facility] PARATHYROI Ca Norm WB 0.99 1.05 - 04/[address] [facility] D PROFILE 09.23 [facility] PARATHYROI Ca Ion WB 1.01 1.05 - 04/13 [place] D PROFILE 09.23 [facility] HEMATOLOGY Plt Morph Clumped 04/[address] [facility] (04/12/18 9:49 PM) [facility] HEMATOLOGY Atypical 0.0 <=0.0 % 04/13 [facility] HEMATOLOGY Bands 4.0 0.0 - 11.0 04/[address] [facility] HEMATOLOGY Platelet 254 133 - [address] [facility] Count [facility] HEMATOLOGY Neut Vac Slight 04/12 [facility] PARATHYROI Ca Norm WB 1.03 1.05 - 04/12 [place] D PROFILE 09.23 [facility] PARATHYROI Ca Ion WB 1.06 1.05 - 04/12 [place] D PROFILE 09.23 [facility] ANEMIA Ferritin Lvl 34 5 - 204 04/[address] [facility] STUDY [facility] ANEMIA UIBC 334 110 - 370 04/12 [facility] /2017 [facility] ANEMIA % Satur Fe 3 12 - 57 04/12 [facility] /2017 [facility] ANEMIA Iron 10 30 - 160 04/[address] [facility] STUDY /2017 [facility] ANEMIA TIBC 344 228 - 428 04/[address] [facility] /2017 [facility] CHEM PANEL LDH 174 98 - 192 04/[address] [facility] /2017 Medical Center HEMATOLOGY Schistocyte 1-3 per HPF None Seen 04/[address] [facility] (04/12/18 9:28 AM) [facility] HEMATOLOGY Neut Vac Slight 04/12 [facility]2017 [facility] HEMATOLOGY D-Dimer 1.84 04/[address] HEMATOLOGY Fibrinogen 618 230 - 510 04/12 [facility] HEMATOLOGY PB Smear Peripheral 04/[address] [facility] Path blood /2017 Medical smear Center shows microcytic hypochromi c anemia with anisopoiki locytosis, slight polychroma fernando, leukocytos is with reactive PMNs, many platelet clumps. Impression : (1) a reactive condition, (2) iron deficiency anemia vs. anemia of chronic disease, (3) an accurate platelet count cannot be obtained due to EDTA antibody causing platelet clumping, recollecti on of sample in blue-top tube (sodium-ci trate buffer) may eliminate this problem. CPT: 82929 IMMUNOLOGY Haptoglobin 195 16 - 200 04/[address] [facility] [address] [place] [address] NITROFURAN Culture: 10,000 - 50,000 CFU/mL Enterococcus Species 04/[address] [facility] TOIN:SUSC: Urine 10,000 - 50,000 CFU/mL Pseudomonas aeruginosa /2017 Medical PT:ISOLATE 10,000 - 50,000 CFU/mL Escherichia coli Center :ORDQN:CAPRICE NITROFURAN Escherichia Escherichi 04/[address] [facility] TOIN:SUSC: coli a coli /2017 Medical PT:ISOLATE Center :ORDQN:CAPRICE NITROFURAN Pseudomonas Pseudomona 04/[address] [facility] TOIN:SUSC: aeruginosa s /2017 Medical PT:ISOLATE aeruginosa Center :ORDQN:CAPRICE NITROFURAN Enterococcus Enterococc 04/[address] [facility] TOIN:SUSC: Species us Species /2017 Medical PT:ISOLATE Center :ORDQN:CAPRICE CHEM PANEL Lactic Acid 1.2 0.5 - 2.2 04/12 [facility] CHEM PANEL Procalcitoni 175.56 0.00 - 04/12 Result [facility] 0.10 Comment: Medical Critical Center Result(s) called to Debby [facility] at 04/12/2018 04:10 by stp. Read back OK. CHEM PANEL Bili Total 1.0 0.2 - 1.3 04/[address] CHEM PANEL Alk Phos 52 39 - 136 04/[address] CHEM PANEL AST 13 0 - 37 [address] [facility] CHEM PANEL ALT 16 0 - 65 04/12 [facility]2017 [facility] CHEM PANEL Albumin Lvl 2.7 3.5 - 5.0 04/12 [facility]2017 [facility] CHEM PANEL Total 7.2 6.4 - 8.4 04/[address] [facility] Protein [facility] CHEM PANEL A/G Ratio 0.6 0.7 - 1.6 04/12 [facility]2017 [facility] CHEM PANEL Globulin 4.5 2.7 - 4.2 04/12 [facility]2017 [facility] CHEM PANEL B/C Ratio 17 6 - 25 04/[address] HEMATOLOGY Neut Vac Moderate [facility] (04/12/18 2:51 AM) [place] HEMATOLOGY Acanthocyte Moderate None [facility]en [facility] (04/12/18 2:51 AM) [place] HEMATOLOGY Schistocyte 1-3 per HPF None Seen 04/[address] [facility] (04/12/18 2:51 AM) /2017 [facility] HEMATOLOGY Plt Morph Clumped 04/[address] [facility] (04/12/18 2:51 AM) /2017 [facility] MOLECULAR OXA Not Detected Not 04/[address] [facility] DIAGNOSTIC (carbapenema (04/12/18 2:51 AM) Detected /2017 Medical se) [place] MOLECULAR VIM Not Detected Not 04/[address] [facility] DIAGNOSTIC (carbapenema (04/12/18 2:51 AM) Detected /2017 Medical se) [place] MOLECULAR Proteus spp. Not Detected Not 04/[address] [facility] DIAGNOSTIC (04/12/18 2:51 AM) Detected /2017 [facility] [place] MOLECULAR CTX-M (ESBL) Not Detected Not 04/[address] [facility] DIAGNOSTIC (04/12/18 2:51 AM) Detected /2017 [facility] [place] MOLECULAR KPC Not Detected Not 04/[address] [facility] DIAGNOSTIC (carbapenema (04/12/18 2:51 AM) Detected /2017 Medical se) [place] MOLECULAR IMP Not Detected Not 04/[address] [facility] DIAGNOSTIC (carbapenema (04/12/18 2:51 AM) Detected /2017 Medical se) [place] MOLECULAR NDM Not Detected Not 04/[address] [facility] DIAGNOSTIC (carbapenema (04/12/18 2:51 AM) Detected /2017 Medical se) [place] MOLECULAR K. Not Detected Not 04/[address] [facility] DIAGNOSTIC pneumoniae (04/12/18 2:51 AM) Detected [facility] MOLECULAR P. Not Detected Not 04/[address] [facility] DIAGNOSTIC aeruginosa (04/12/18 2:51 AM) Detected [facility] MOLECULAR K. oxytoca Not Detected Not 04/[address] [facility] DIAGNOSTIC (04/12/18 2:51 AM) Detected [facility] MOLECULAR Citrobacter Not Detected Not 04/[address] [facility] DIAGNOSTIC spp. (04/12/18 2:51 AM) Detected [facility] MOLECULAR Enterobacter Not Detected Not 04/[address] [facility] DIAGNOSTIC spp. (04/12/18 2:51 AM) Detected [facility] MOLECULAR Acinetobacte Not Detected Not 04/[address] [facility] DIAGNOSTIC r spp. (04/12/18 2:51 AM) Detected [facility] MOLECULAR E. coli Detected Not 04/[address] [facility] DIAGNOSTIC *ABN* Detected [facility] (04/12/18 2:51 AM) [place] URINE AND UA RBC 4 0 - 2 04/12 [facility] /2017 [facility] URINE AND UA WBC 17 0 - 5 04/12 [facility] /2017 [facility] URINE AND UA Leuk Est Large Negative 04/[address] [facility] STOOL *ABN* /2017 [facility] (04/12/18 2:51 AM) [place] URINE AND UA <=1.0 0.1 - 1.0 04/12 [facility] Urobilinogen mg/dL [facility] URINE AND UA Bacteria Occasional None Seen 04/[address] [facility] STOOL /HPF /HPF /2017 [facility] URINE AND UA Sq Epi None Seen 04/12 [facility] /[address] [place] [address] URINE AND UA Glucose Negative Negative 04/[address] [facility] STOOL mg/dL mg/dL [facility] URINE AND UA Protein Negative Negative 04/[address] [facility] STOOL mg/dL mg/dL [facility] URINE AND UA Ketones 10 mg/dL Negative 04/[address] [facility] STOOL mg/dL [facility] URINE AND UA Bili Negative Negative 04/[address] [facility] STOOL *NA* /2017 [facility] (04/12/18 2:51 AM) Center URINE AND UA Nitrite Positive Negative 04/[address] [facility] STOOL *ABN* [facility] (04/12/18 2:51 AM) [place] URINE AND UA Blood Trace Negative 04/[address] [facility] STOOL *ABN* [facility] (04/12/18 2:51 AM) Center URINE AND UA Spec Grav 1.008 <=1.030 04/[address] [facility] STOOL [facility] URINE AND UA Color Light Yellow Yellow 04/[address] [facility] STOOL *NA* [facility] (04/12/18 2:51 AM) [place] URINE AND UA pH 5.5 5.0 - 8.0 04/[address] [facility] STOOL [facility] URINE AND UA Turbidity Clear Clear 04/12 [facility] (04/12/18 2:51 AM) [facility] URINE CHEM U Preg Negative Negative 04/[address] [facility] (04/12/18 2:51 AM) [facility] CHEM PANEL eGFR 137 03/03 Result Comment: [facility] eGFR is Center calculated using the CKD-EPI formula. In most young, healthy individuals the eGFR will be >90 mL/min/1.73m2 . The eGFR declines with age. An eGFR of 60-89 may be normal in some populations, particularly the elderly, for whom the CKD-EPI formula has not been extensively validated. Use of the eGFR is not recommended in the following populations:< br/>
Alayna viduals with unstable creatinine concentration s, including patients and those with serious co-morbid conditions.<b r/>
Patie nts with extremes in muscle mass or diet.

The data above are obtained from the National Kidney Disease Education Program (NKDEP) which additionally recommends that when the eGFR is used in patients with extremes of body mass index for purposes of drug dosing, the eGFR should be multiplied by the estimated BMI. CHEM PANEL Calcium Lvl 8.2 8.5 - 10.5 03/[address] [facility] CHEM PANEL AGAP 15.1 10.0 - [address] [facility] 20.0 [facility] CHEM PANEL CO2 20 24 - 32 03/[address] [facility] CHEM PANEL Glucose Lvl 89 70 - 99 03/03 [facility]2017 [facility] CHEM PANEL BUN 7 7 - 22 03/03 [facility]2017 [facility] CHEM PANEL Creatinine 0.56 0.50 - 03/03 [facility] 1.40 [facility] CHEM PANEL Chloride Lvl 116 95 - 109 03/03 [facility]2017 [facility] CHEM PANEL Sodium Lvl 148 135 - 145 03/[address] [facility] CHEM PANEL Potassium 3.1 3.5 - 5.1 03/03 [facility] /2017 [facility] HEMATOLOGY Monocytes # 0.9 0.0 - 0.8 07/ [facility] HEMATOLOGY Monocytes 7.7 2.0 - 12.0 03/03 [facility] HEMATOLOGY Eosinophils 0.1 0.0 - 0.5 07/ [place] # /2017 [facility] HEMATOLOGY Eosinophils 0.7 0.0 - 4.0 / [facility] HEMATOLOGY Basophils 0.3 0.0 - 1.0 03/03 [facility] HEMATOLOGY Lymphocytes 9.1 20.0 - 07 [place] 40.0 /2017 [facility] HEMATOLOGY Segs 82.2 45.0 - 07/05 [place] 75.0 /2018 [facility] HEMATOLOGY Microcyte 2+ None Seen 03/[address] [facility] *ABN* /2017 [facility] (03/03/18 1:02 AM) [place] HEMATOLOGY Lymphocytes 1.1 1.0 - 5.5 03/03 # /2017 [facility] HEMATOLOGY Segs-Bands # 9.9 1.5 - 8.1 03/03 [facility] HEMATOLOGY Hgb 9.2 12.0 - 03/03 16.0 [facility] HEMATOLOGY Hct 29.9 36.0 - 07 [place] 48.0 2018 [facility] HEMATOLOGY WBC 12.1 3.7 - 10.4 03/03 [facility] HEMATOLOGY RBC 4.18 4.20 - 07 [place] 5.40 /2017 [facility] HEMATOLOGY MCV 71.6 80.0 - 03/03 98.0 [facility] HEMATOLOGY RDW 19.9 11.5 - 07 14.5 [facility] HEMATOLOGY MCH 22.1 27.0 - 07 31.0 2018 [facility] HEMATOLOGY MCHC 30.9 32.0 - 07/05 [place] 36.0 /2018 [facility] HEMATOLOGY MPV xxxxxxx 7.4 - 10.4 03/[address] [facility] (03/03/18 1:02 AM) [facility] HEMATOLOGY Platelet See Note 2 133 - 450 03/[address] [facility] (03/03/18 1:02 AM) Comment: Medical Platelets Center clumped in EDTA, unable to estimate, suggest recollection in a blue top tube with an order for "Blue Top Platelet Count" CHEM PANEL eGFR 98 07 Result Comment: The Medical eGFR is Center calculated using the CKD-EPI formula. In most young, healthy individuals the eGFR will be >90 mL/min/1.73m2 . The eGFR declines with age. An eGFR of 60-89 may be normal in some populations, particularly the elderly, for whom the CKD-EPI formula has not been extensively validated. Use of the eGFR is not recommended in the following populations:< br/>
Alayna viduals with unstable creatinine concentration s, including patients and those with serious co-morbid conditions.<b r/>
Patie nts with extremes in muscle mass or diet.

The data above are obtained from the National Kidney Disease Education Program (NKDEP) which additionally recommends that when the eGFR is used in patients with extremes of body mass index for purposes of drug dosing, the eGFR should be multiplied by the estimated BMI. CHEM PANEL Sodium Lvl 145 135 - 145 03/[address] CHEM PANEL Potassium 4.0 3.5 - 5.1 03/02 [facility] /2017 [facility] CHEM PANEL BUN 12 7 - 22 03/[address] CHEM PANEL Creatinine 0.87 0.50 - 03/02 [facility] 1.40 [facility] CHEM PANEL Chloride Lvl 113 95 - 109 03/[address] CHEM PANEL CO2 19 24 - 32 03/[address] CHEM PANEL AGAP 17.0 10.0 - 03/[address] [facility] 20.0 [facility] CHEM PANEL Calcium Lvl 8.3 8.5 - 10.5 03/02 [facility]2017 [facility] CHEM PANEL Glucose Lvl 124 70 - 99 03/[address] HEMATOLOGY Platelet See Note 3 133 - 450 03/[address] [facility] (03/02/18 2:10 AM) Comment: Medical Platelets Center clumped in EDTA, unable to estimate, suggest recollection in a blue top tube with an order for "Blue Top Platelet Count"
An alyzer gave a Platelet Count of 126. HEMATOLOGY MPV See Note 7.4 - 10.4 03/[address] [facility] (03/02/18 2:10 AM) [facility] HEMATOLOGY RBC X 10x6 4.38 4.20 - 07 [place] 5.40 /2017 [facility] HEMATOLOGY WBC X 10x3 16.5 3.7 - 10.4 / [facility] HEMATOLOGY MCV 72.6 80.0 - 03/02 [place] 98.0 /2017 [facility] HEMATOLOGY Hct 31.8 36.0 - 03/02 [place] 48.0 /2017 [facility] HEMATOLOGY MCHC 30.7 32.0 - 03/02 [place] 36.0 [facility] HEMATOLOGY MCH 22.3 27.0 - 03/02 [place] 31.0 /2017 [facility] HEMATOLOGY Hgb 9.8 12.0 - 03/02 [place] 16.0 [facility] HEMATOLOGY RDW 20.1 11.5 - 03/[address] [facility] 14.5 [facility] HEMATOLOGY Monocytes 4.9 2.0 - 12.0 03/02 [facility] HEMATOLOGY Segs-Bands # 15.1 1.5 - 8.1 03/02 [facility] HEMATOLOGY Lymphocytes 3.8 20.0 - 03/02 [place] 40.0 [facility] HEMATOLOGY Segs 91.2 45.0 - / [place] 75.0 /2017 [facility] HEMATOLOGY Basophils 0.1 0.0 - 1.0 03/02 [facility] HEMATOLOGY Lymphocytes 0.6 1.0 - 5.5 03/02 [place] # /2017 [facility] HEMATOLOGY Monocytes # 0.8 0.0 - 0.8 03/02 [facility] HEMATOLOGY Microcyte 2+ None [facility]02[facility]18 2:10 AM) [place] HEMATOLOGY Toxic Gran See Note 5 None Seen 03/[address] [facility] (03/02/18 2:10 AM) Comment: [facility] HEMATOLOGY Neut Vac Moderate None Seen 03/[address] [facility] *ABN* /2017 [facility] (03/02/18 2:10 AM) [place] HEMATOLOGY Plt Morph Clumped 03/[address] [facility] (03/02/18 2:10 AM) [facility] ENDOCRINOL hCG Tot <1 03/[address] [facility] OGY [facility] HEMATOLOGY INR 1.33 0.85 - 03/01 [place] 1.17 [facility] HEMATOLOGY PT 16.6 12.0 - 03/01 [place] [facility] CHEM PANEL Lactic Acid 1.5 0.5 - 2.2 / [facility] Lvl /2017 [facility] CHEM PANEL Bili 0.3 0.0 - 1.0 03/[address] [facility] Indirect /2017 [facility] CHEM PANEL AST 23 0 - 37 03/[address] CHEM PANEL ALT 21 0 - 65 03/[address] CHEM PANEL Bili Direct 0.1 0.0 - 0.3 03/[address] CHEM PANEL Alk Phos 51 39 - 136 03/[address] CHEM PANEL Bili Total 0.4 0.2 - 1.3 03/[address] CHEM PANEL Albumin Lvl 3.4 3.5 - 5.0 03/[address] CHEM PANEL Total 8.2 6.4 - 8.4 03/[address] [facility] Protein /2017 [facility] CHEM PANEL A/G Ratio 0.7 0.7 - 1.6 03/[address] CHEM PANEL Globulin 4.8 2.7 - 4.2 03/[address] ELECTROLYT AGAP 15.1 10.0 - 03/[address] [facility] ES 20.0 [facility] ELECTROLYT eGFR 88 03/01 [facility] Comment: The Medical eGFR is Center calculated using the CKD-EPI formula. In most young, healthy individuals the eGFR will be >90 mL/min/1.73m2 . The eGFR declines with age. An eGFR of 60-89 may be normal in some populations, particularly the elderly, for whom the CKD-EPI formula has not been extensively validated. Use of the eGFR is not recommended in the following populations:< br/>
Alayna viduals with unstable creatinine concentration s, including patients and those with serious co-morbid conditions.<b r/>
Patie nts with extremes in muscle mass or diet.

The data above are obtained from the National Kidney Disease Education Program (NKDEP) which additionally recommends that when the eGFR is used in patients with extremes of body mass index for purposes of drug dosing, the eGFR should be multiplied by the estimated BMI. ELECTROLYT CO2 21 24 - 32 / [facility] ES [facility] ELECTROLYT Calcium Lvl 8.6 8.5 - 10.5 03/01 [facility] ELECTROLYT Potassium 4.1 3.5 - 5.1 03/[address] [facility] ES Lvl /2017 [facility] ELECTROLYT Sodium Lvl 137 135 - 145 03/01 [facility]2017 [facility] ELECTROLYT Creatinine 0.95 0.50 - 03/[address] [facility] ES Lvl 1.40 /2017 [facility] ELECTROLYT BUN 17 7 - 22 03/01 [facility]2018 [facility] ELECTROLYT Chloride Lvl 105 95 - 109 03/01 [facility] /2017 [facility] ELECTROLYT Glucose Lvl 109 70 - 99 03/01 [facility] /[address] [place] [address] HEMATOLOGY Microcyte 2+ None Seen 03/[address] [facility] *ABN* /2017 [facility] (03/01/18 3:34 AM) [place] HEMATOLOGY Eosinophils 0.1 0.0 - 4.0 03/[address] HEMATOLOGY Monocytes 5.8 2.0 - 12.0 03/[address] HEMATOLOGY Segs 90.6 45.0 - 03/01 [place] 75.0 [facility] HEMATOLOGY Lymphocytes 3.3 20.0 - 03/01 [place] 40.0 [facility] HEMATOLOGY Segs-Bands # 22.3 1.5 - 8.1 03/[address] HEMATOLOGY Lymphocytes 0.8 1.0 - 5.5 03/01 [place] # /2017 [facility] HEMATOLOGY Basophils 0.2 0.0 - 1.0 03/[address] HEMATOLOGY Basophils # 0.1 0.0 - 0.2 03/[address] HEMATOLOGY Monocytes # 1.4 0.0 - 0.8 03/[address] [facility] [address] [place] [address] HEMATOLOGY Hypochrom 1+ None Seen 03/[address] [facility] (03/01/18 3:34 AM) /2017 [facility] HEMATOLOGY Polychrom slight 03/[address] HEMATOLOGY Platelet 377 133 - 450 03/01 [place] Count Blue /2017 [facility] HEMATOLOGY MCH 22.3 27.0 - 07 [place] 31.0 2018 [facility] HEMATOLOGY MCHC 31.1 32.0 - 03/01 [place] 36.0 2018 [facility] HEMATOLOGY Hct 33.6 36.0 - / [place] 48.0 2018 [facility] HEMATOLOGY Hgb 10.4 12.0 - 03/01 [facility] [place] 16.0 [facility] HEMATOLOGY WBC 24.6 3.7 - 10.4 03/01 [facility] HEMATOLOGY RBC 4.68 4.20 - 03/01 [place] 5.40 /2017 [facility] HEMATOLOGY MCV 71.8 80.0 - 03/[address] [facility] 98.0 /2017 [facility] HEMATOLOGY RDW 19.6 11.5 - 03/[address] [facility] 14.5 /2017 [facility] HEMATOLOGY MPV See Note 1 7.4 - 10.4 03/[address] [facility] (03/01/18 3:34 AM) Comment: [facility] Platelets Center clumped in EDTA, unable to estimate, suggest recollection in a blue top tube with an order for "Blue Top Platelet Count"
or dered and verified HEMATOLOGY Platelet See Note 4 133 - 450 03/[address] [facility] (03/01/18 3:34 AM) Comment: [facility] Platelets Center clumped in EDTA, unable to estimate, suggest recollection in a blue top tube with an order for "Blue Top Platelet Count"
or dered and verified URINE AND UA Leuk Est Small Negative 03/[address] [facility] STOOL *ABN* /2017 [facility] (03/01/18 3:28 AM) [place] URINE AND UA pH 8.0 5.0 - 8.0 03/01 [facility] /2017 [facility] URINE AND UA Spec Grav 1.010 <=1.030 03/01 [facility] /2017 [facility] URINE AND UA Glucose Negative Negative 03/01 [facility] (03/01/18 3:28 AM) /2017 [facility] URINE AND UA Protein Trace Negative 03/[address] [facility] STOOL *ABN* /2017 [facility] (03/01/18 3:28 AM) [place] URINE AND UA Turbidity Cloudy Clear 03/[address] [facility] STOOL *ABN* /2017 [facility] (03/01/18 3:28 AM) Center URINE AND UA Color Yellow Yellow 03/[address] [facility] STOOL *NA* [facility] (03/01/18 3:28 AM) Center URINE AND UA Blood Small Negative 03/[address] [facility] STOOL *ABN* /2017 [facility] (03/01/18 3:28 AM) Center URINE AND UA Bili Negative Negative 03/[address] [facility] STOOL *NA* [facility] (03/01/18 3:28 AM) Center URINE AND UA Nitrite Positive Negative 03/[address] [facility] STOOL *ABN* /2017 [facility] (03/01/18 3:28 AM) Center URINE AND UA 0.2 0.1 - 1.0 03/01 [facility] Urobilinogen /2017 [facility] URINE AND UA Ketones 15 mg/dL Negative 03/01 [facility] mg/dL [facility] URINE AND UA Mucus Few /LPF None Seen 03/[address] [facility] STOOL /LPF 2018 [facility] URINE AND UA Amorph Moderate None Seen 03/[address] [facility] STOOL Viky /HPF /HPF [facility] URINE AND UA Bacteria Many /HPF None Seen 03/[address] [facility] STOOL /HPF 2018 [facility] [place] URINE AND UA WBC 11-20 /HPF None Seen 03/[address] [facility] STOOL /HPF 2018 [facility] URINE AND UA RBC 3-5 /HPF 0 - 2 03/01 [facility] [address] [place] [address] URINE AND UA Sq Epi Few /LPF Few /LPF 03/01 [facility] [address] [place] [address] NITROFURAN Culture: >100,000 CFU/mL Enterococcus Species 03/[address] [facility] TOIN:SUSC: Urine . /2017 Medical PT:ISOLATE <10,000 CFU/mL Gram Negative [facility] :ORDQN:CAPRICE NITROFURAN Enterococcus Enterococc 03/[address] [facility] TOIN:SUSC: Species us Species /2017 Medical PT:ISOLATE Center :ORDQN:CAPRICE URINE CHEM U Preg Negative Negative 11/[address] [facility] (11/06/17 9:30 AM) /[address] [place] [address] URINE AND UA RBC 3-5 /HPF 0 - 2 11/06 [facility] [address] [place] [address] URINE AND UA WBC 3-5 /HPF None Seen 11/[address] [facility] STOOL /HPF 2018 [facility] URINE AND UA Mucus Rare /LPF None Seen 11/[address] [facility] STOOL /LPF 2018 [facility] URINE AND UA Bacteria Few /HPF None Seen 11/[address] [facility] STOOL /HPF 2018 Medical Center URINE AND UA Sq Epi Few /LPF Few /LPF 11/06 [facility] /[address] [place] [address] URINE AND UA Amorph Few /HPF None Seen 11/06 [facility] Viky /HPF 2018 [facility] URINE AND UA Glucose Negative Negative 11/06 [facility] (11/06/17 9:10 AM) /[address] [place] [address] URINE AND UA Bili Negative Negative 11/[address] [facility] STOOL *NA* /2017 [facility] (11/06/17 9:10 AM) [place] URINE AND UA Ketones Negative Negative 11/[address] [facility] STOOL *NA* /2017 [facility] (11/06/17 9:10 AM) [place] URINE AND UA Blood Negative Negative 11/06 [facility] (11/06/17 9:10 AM) /2017 [facility] URINE AND UA Nitrite Positive Negative 11/06 [facility] *ABN* /2017 [facility] (11/06/17 9:10 AM) [place] URINE AND UA 0.2 0.1 - 1.0 11/06 [facility] Urobilinogen /2017 [facility] URINE AND UA Leuk Est Small Negative 11/06 [facility] *ABN* /2017 [facility] (11/06/17 9:10 AM) [place] URINE AND UA Color Yellow Yellow 11/06 [facility] *NA* /2017 [facility] (11/06/17 9:10 AM) [place] URINE AND UA Turbidity Cloudy Clear 11/06 [facility] *ABN* /2017 [facility] (11/06/17 9:10 AM) [place] URINE AND UA Protein Trace Negative 11/06 [facility] *ABN* /2017 [facility] (11/06/17 9:10 AM) [place] URINE AND UA Spec Grav 1.020 <=1.030 11/06 [facility] /[address] [place] [address] URINE AND UA pH 8.5 5.0 - 8.0 11/[address] CHEM PANEL Globulin 4.6 2.7 - 4.2 11/[address] CHEM PANEL A/G Ratio 0.7 0.7 - 1.6 11/[address] CHEM PANEL Total 8.0 6.4 - 8.4 11/[address] [facility] Protein [facility] CHEM PANEL Albumin Lvl 3.4 3.5 - 5.0 11/[address] CHEM PANEL Bili Direct 0.1 0.0 - 0.3 11/[address] CHEM PANEL Bili 0.3 0.0 - 1.0 11/[address] [facility] Indirect [address] CHEM PANEL ALT 30 0 - 65 11/[address] CHEM PANEL Alk Phos 48 39 - 136 11/[address] CHEM PANEL Bili Total 0.4 0.2 - 1.3 11/[address] CHEM PANEL AST 47 0 - 37 11/[address] CHEM PANEL Lipase Lvl 317 73 - 393 11/06 [facility] ELECTROLYT AGAP 16.8 10.0 - 11/06 [facility] 20.0 [facility] ELECTROLYT eGFR 132 11/06 Result [facility] Comment: The Medical eGFR is Center calculated using the CKD-EPI formula. In most young, healthy individuals the eGFR will be >90 mL/min/1.73m2 . The eGFR declines with age. An eGFR of 60-89 may be normal in some populations, particularly the elderly, for whom the CKD-EPI formula has not been extensively validated. Use of the eGFR is not recommended in the following populations:< br/>
Alayna viduals with unstable creatinine concentration s, including patients and those with serious co-morbid conditions.<b r/>
Patie nts with extremes in muscle mass or diet.

The data above are obtained from the National Kidney Disease Education Program (NKDEP) which additionally recommends that when the eGFR is used in patients with extremes of body mass index for purposes of drug dosing, the eGFR should be multiplied by the estimated BMI. ELECTROLYT Calcium Lvl 9.1 8.5 - 10.5 11/06 [facility] ELECTROLYT CO2 22 24 - 32 11/[address] ELECTROLYT Chloride Lvl 105 95 - 109 11/06 [facility]2017 [facility] ELECTROLYT Glucose Lvl 96 70 - 99 11/[address] ELECTROLYT Creatinine 0.63 0.50 - 11/06 [facility] Lvl 1.40 [facility] ELECTROLYT BUN 11 7 - 22 11/06 [facility] ELECTROLYT Sodium Lvl 139 135 - 145 11/06 [facility] ELECTROLYT Potassium 4.8 3.5 - 5.1 11/06 Result [facility] Comment: Medical Specimen Center Moderately Hemolyzed. HEMATOLOGY Microcyte 1+ None [facility] (11/06/17 9:01 AM) Center HEMATOLOGY Anisocyte 1+ None Seen 11/[facility] (11/06/17 9:01 AM) Center HEMATOLOGY Eosinophils 0.2 0.0 - 0.5 11/[address] [facility] /2017 [facility] HEMATOLOGY Hypochrom 1+ None Seen 11/[address] [facility] (11/06/17 9:01 AM) /2017 [facility] HEMATOLOGY Eosinophils 2.2 0.0 - 4.0 11/06 [facility] HEMATOLOGY Monocytes 10.3 2.0 - 12.0 11/06 /[address] [place] [address] HEMATOLOGY Basophils 0.4 0.0 - 1.0 11/06 [facility] HEMATOLOGY Lymphocytes 1.8 1.0 - 5.5 11/[address] [facility] /2017 [facility] HEMATOLOGY Segs-Bands # 7.5 1.5 - 8.1 11/06 [facility] HEMATOLOGY Monocytes # 1.1 0.0 - 0.8 11/06 2017 [facility] HEMATOLOGY Plt Morph See Note 1 11/[address] [facility] (11/06/17 9:01 AM) Comment: Due Medical to Center occassional clumps, the actual count may be slightly higher. HEMATOLOGY Segs 70.0 45.0 - 11/06 [place] 75.0 [facility] HEMATOLOGY Lymphocytes 17.1 20.0 - 11/06 [place] 40.0 [facility] HEMATOLOGY Platelet 136 133 - 450 11/[address] [place] [address] HEMATOLOGY MCH 23.9 27.0 - 11/06 [place] 31.0 [facility] HEMATOLOGY RDW 22.9 11.5 - 11/06 [place] 14.5 [facility] HEMATOLOGY MCHC 30.1 32.0 - 11/06 36.0 [facility] HEMATOLOGY Hct 33.3 36.0 - 11/06 [place] 48.0 [facility] HEMATOLOGY RBC 4.20 4.20 - 11/06 [place] 5.40 [facility] HEMATOLOGY Hgb 10.0 12.0 - 11/06 [place] 16.0 [facility] HEMATOLOGY MCV 79.3 80.0 - 11/06 [place] 98.0 [facility] HEMATOLOGY WBC 10.7 3.7 - 10.4 11/06 /2017 [facility] HEMATOLOGY MPV 9.0 7.4 - 10.4 11/06 /[address] [place] [address] IMMUNOLOGY [facility] HIV 4th Negative Negative 11/[address] [facility] GEN *NA* /2017 Medical (11/06/17 8:43 AM) Center Laboratory Sodium Level 138 135 - 145 10/08 [facility] [address] Studies /2018 [facility] [place] [facility] Potassium 3.3 3.6 - 5.0 10/08 [facility] Studies Level /2018 [facility] [place] [facility] Magnesium 1.6 1.8 - 2.5 10/08 [facility] Studies Level /2018 [facility] [place] [facility] Glucose 91 65 - 120 10/08 [facility] Studies Level /2018 [facility] [place] [facility] Estimat >90 90 10/08 [facility] Studies Glomerular /2018 [facility] Filtration [place] Rate Laboratory Creatinine 0.42 0.44 - 02 [facility] Studies 1.00 /2017 [facility] [place] [facility] Chloride 104 101 - 111 10/08 [facility] Studies Level /2018 [facility] [place] [facility] Carbon 24 21 - 31 10/08 [facility] Studies Dioxide /2017 [facility] Level [place] [facility] Calcium 8.6 8.5 - 10.5 10/08 [facility] Studies Level /2018 [facility] [place] [facility] Blood Urea 9 6 - 20 10/08 [facility] Studies Nitrogen /2017 [facility] [place] [facility] White Blood 8.9 4.3 - 10.9 10/08 [facility] Studies Count /2018 [facility] [place] [facility] Red Cell 17.7 12.1 - 10/08 [facility] Studies Distribution 15.2 /2017 [facility] [place] [facility] Red Blood 4.41 3.86 - 10/08 [facility] Studies Count 4.86 /2017 [facility] [place] [facility] Platelet 443 152 - 406 10/08 [facility] Studies Count /2017 [facility] [place] [facility] Neutrophils 57.5 41.7 - 02 [facility] Studies % 73.7 /2017 [facility] [place] [facility] Monocytes % 12.3 3.3 - 12.3 10/08 [facility] Studies /2018 [facility] [place] [facility] Mean 6.6 7.6 - 11.3 10/08 [facility] Studies Platelet /2018 [facility] Volume [place] [facility] Mean 73.1 80 - 100 10/08 [facility] Studies Corpuscular /2018 [facility] [place] [facility] Mean 31.5 32.0 - 10/08 [facility] Studies Corpuscular 36.0 /2017 [facility] Hemoglobin [place] Con[facility] Mean 23.0 27.0 - 02 [facility] [address] Studies Corpuscular 35.0 /2017 [facility] Hemoglobin [place] [facility] Lymphocytes 26.3 15.3 - 02 St. Studies % 44.8 /2017 [facility] [place] [facility] Hemoglobin 10.1 12.0 - 10/08 St[facility] Studies 15.0 /2017 [facility] [place] [facility] Hematocrit 32.2 36.0 - 02 St[facility] Studies 45.0 /2017 [facility] [place] [facility] Eosinophils 2.7 0 - 4.4 10/08 St[facility] Studies % /2017 [facility] [place] [facility] Basophils % 1.2 0 - 1.3 10/08 St[facility] Studies /2017 [facility] [place] [facility] Absolute 5.1 1.8 - 8.0 10/08 St[facility] Studies Neutrophil /2017 [facility] [place] [facility] Absolute 1.1 0.1 - 1.3 10/08 [facility] [address] Studies Monocytes /2017 [facility] (CBC[facility] [place] [facility] Absolute 2.3 0.7 - 4.9 10/08 [facility] [address] Studies Lymphocytes /2017 [facility] (CBC[facility] [place] [facility] Absolute 0.2 0 - 0.5 10/08 [facility] [address] Studies Eosinophils /2017 [facility] (CBC) [place] [facility] Absolute 0.1 0 - 0.5 10/08 [facility] [address] Studies Basophils /2017 [facility] (CBC) [place] [facility] Urine Yeast Urine 10/07 [facility] [address] Studies Yeast /2017 [facility] [place] [facility] Urine WBC <5 10/07 St. Studies /2017 [facility] [place] [facility] Urine <5 10/07 [facility] [address] Studies Squamous /2017 [facility] Epithelial [place] Cells Laboratory Urine RBC Urine RBC 10/07 [facility] [address] Studies /2017 [facility] [place] [facility] Urine Urine 10/07 [facility] [address] Studies Culture Culture /2017 [facility] Reflexed Reflexed [place] [facility] Urine <20 10/07 [facility] [address] Studies Bacteria /2017 [facility] [place] [facility] Urine Urine 10/07 [facility] [address] Studies Amorphous Amorphous /2017 [facility] Sediment Sediment [place] [facility] Urine pH 6.0 10/07 St. Studies /2017 [facility] [place] [facility] Urine 1.0 10/07 [facility] [address] Studies Urobilinogen /2017 [facility] [place] [facility] Urine Total Urine 10/07 [facility] Studies Protein Total /2017 [facility] Protein [place] [facility] Urine 1.015 10/07 [facility] [address] Studies Specific /2017 [facility] [place] [facility] Urine Urine 10/07 [facility] Studies Nitrite Nitrite /2017 [facility] [place] [facility] Urine Urine 10/07 [facility] Studies Leukocyte Leukocyte /2017 [facility] Esterase Esterase [place] [facility] Urine Urine 10/07 . Studies Ketones Ketones /2017 [facility] [place] [facility] Urine Urine 10/07 [facility] Studies Glucose Glucose /2017 [facility] [place] [facility] Urine Color Urine 10/07 . Studies Color /2017 [facility] [place] [facility] Urine Blood Urine 10/07 . Studies Blood /2017 [facility] [place] [facility] Urine Urine 10/07 [facility] Studies Bilirubin Bilirubin /2017 [facility] [place] [facility] Urine Urine 10/07 [facility] Studies Appearance Appearance /2017 [facility] [place] [facility] Vitamin B12 1155 180 - 914 10/07 [facility] Studies Level /2017 [facility] [place] [facility] Transferrin 9.2 20.0 - 10/07 [facility] Studies % Saturation 50.0 [facility] [place] [facility] Transferrin 240 192 - 382 10/07 [facility] [address] Studies /2017 [facility] [place] [facility] Total Iron 336 250 - 460 10/07 [facility] Studies Binding /2017 [facility] Capacity [place] [facility] Iron Level 31.0 28 - 170 10/07 [facility] Studies /2017 [facility] [place] [facility] Ferritin 10.3 11.0 - 10/07 [facility] Studies 306.8 /2017 [facility] [place] [facility] Segmented 67 40 - 80 10/05 [facility] Studies Neutrophils /2017 [facility] [place] [facility] Monocytes 1 0 - 10 10/05 [facility] [address] Studies /2017 [facility] [place] Laboratory Lymphocytes 29 15 - 42 10/05 [facility] [address] Studies /2017 [facility] Eosinophils 3 0 - 3 10/05 [facility] Studies /2018 [facility] Clumped Clumped 10/05 [facility] Studies Platelets Platelets /2017 [facility] Blood Blood 10/05 [facility] Studies Morphology Morphology /2017 [facility] Comment Comment [place] [facility] Urine Urine 10/02 [facility] Studies Phencyclidin Phencyclid [facility] e Screen ine Screen [place] [facility] Urine Urine 10/02 [facility] Studies Barbiturates Barbiturat [facility] Screen es Screen [place] [facility] Ur Ur 10/02 [facility] Studies Tetrahydroca Tetrahydro [facility] nnabinol cannabinol [place] (THC) Scrn (THC) Scrn Laboratory Oxycodone Oxycodone 10/02 [facility] Studies Screen Screen [facility] Opiates Opiates 10/02 [facility] Studies Screen Screen [facility] MDMA MDMA 10/02 [facility] Studies (Ecstasy) (Ecstasy) [facility] Screen Screen [place] [facility] Cocaine Cocaine 10/02 [facility] Studies Screen Screen [facility] Benzodiazepi Benzodiaze 10/02 [facility] Studies aishwarya Screen pines [facility] Screen [place] [facility] Amphetamines Amphetamin 10/02 [facility] Studies Screen es Screen [facility] Total 0.7 0.3 - 1.2 10/01 [facility] Studies Bilirubin [facility] Serum Total 7.4 6.0 - 8.3 10/01 [facility] Studies Protein [facility] Globulin 3.6 2.3 - 3.5 10/01 [facility] Studies /2017 [facility] Aspartate 27 10 - 42 10/01 [facility] Studies Amino Transf LuJodange - (AST/SGOT) [facility] Alkaline 42 42 - 121 10/01 [facility] Studies Phosphatase [facility] [place] Albumin/Glob 1.1 1.1 - 1.8 10/01 [facility] Studies ulin Ratio /2017 [facility] Albumin 3.8 3.2 - 5.5 10/01 [facility] Studies [facility] Alanine 17 10 - 60 10/01 [facility] Studies Aminotransfe Luchase - rasbhavin Sandrest (ALT/SGPT) Laboratory Urine Yeast Urine 09/30 [facility] Studies (Budding) Yeast [facility] (Budding) [place] [facility] Urine Uric Urine Uric 09/[address] [facility] [address] Studies Acid Acid [facility] Crystals Crystals [place] [facility] Direct 0.2 0 - 0.2 09/29 St[facility] Studies Bilirubin [facility] [place] [facility] Lipase 28 22 - 51 09/[address] [facility] [address] Studies 2018 [facility] Microbiolo Enterobacter Enterobact 09/[address] [facility] [address] [facility] Studies [place] er Cloacae [facility] [place] [facility] Enterococcus Enterococc 09/[address] [facility] [address] [facility] Studies Faecalis us [facility] Faecalis [place] [facility] Pseudomonas Pseudomona 09/28 [facility] [address] gy Studies Aeruginosa s [facility] Aeruginosa [place] [facility] Urine Urine 09/23 [facility] St[facility] Studies [facility] Test Test [place] [facility] Enterococcus Enterococc 08/31 [facility] gy Studies Faecalis us [facility] Faecalis [place] [facility] Klebsiella Klebsiella 08/31 [facility] [address] gy Studies Oxytoca Oxytoca [facility] [place] [facility] Ovalocytes Ovalocytes 08/[address] [facility] [address] Studies [facility] [place] [facility] Anisocytosis Anisocytos 08/28 [facility] St[facility] Studies is [facility] [place] [facility] B-Type 10 08/28 [facility] St[facility] Studies Natriuretic [facility] Peptide [place] [facility] Creatine 0.7 0.3 - 4.0 08/28 [facility] St[facility] Studies Kinase MB /2016 [facility] [place] [facility] Creatine 30 22 - 269 08/28 [facility] St[facility] Studies Kinase [facility] Rapid <0.03 08/28 [facility] St[facility] Studies Troponin I /2016 [facility] Prothrombin 13.7 9.5 - 12.5 08/28 [facility] St[facility] Studies Time [facility] [place] [facility] INR 1.16 08/28 [facility] St[facility] Studies Internationa [facility] l Normalized [place] Ratio Laboratory Activated 26.6 24.3 - 08/28 [facility] St[facility] Studies Partial 36.9 2017 [facility] Thromboplast [place] Time Laboratory Lactic Acid 7.5 4.5 - 19.8 08/28 [facility] St[facility] Studies Level [facility] [place] [facility] Klebsiella Klebsiella 07/18 [facility] [address] gy Studies Pneumoniae Pneumoniae [facility] [place] [facility] Enterococcus Enterococc 07/18 [facility] [address] gy Studies Faecalis us /2016 [facility] Faecalis [place] [facility] Urine Triple Urine 07/11 [facility] St[facility] Studies Phosphate Triple [facility] Crystals Phosphate [place] Crystals Laboratory Amylase 170 28 - 100 07/[address] [facility] [address] Studies Level /2016 [facility] [place] Pathology Reports No Data Provided for This Section Diagnostic Reports Report Value Date Source Renal Stone CT EXAM: CT ABDOMEN AND PELVIS WITHOUT CONTRAST 01/22/2019 [facility] DATE: 01/22/2019 2:48 CDT Center INDICATION: Abdominal pain, acute - renal stone protocol COMPARISON: Abdomen pelvis CT without IV contrast 12/13/2018 TECHNIQUE: Volumetric CT of the abdomen and pelvis is acquired without contrast. Axial, coronal and sagittal images are provided. IV contrast: None. Enteric contrast: None. DLP: 614 mGy-cm. UT SECTION: ER FINDINGS: Lines, tubes and hardware: Partially visualized left HOSPITAL C[facility]ER shunt seen within the left chest and pleural space. Lower thorax: A moderate left-sided pleural effusion. Scattered atelectatic changes. Abdomen: Limited evaluation of the parenchymal organs and vascular structures due to lack of intravenous contrast. Otherwise unremarkable noncontrast appearance of the liver, spleen, pancreas, and left adrenal gland. Layering gallstones are seen. Right adrenal gland is not well seen. Nonobstructive bowel. Moderate amount of colonic stool is seen. Left lower quadrant colostomy. The appendix is normal. Normal caliber aorta. Kidneys and ureters: Right kidney and ureter: Multiple punctate stones are seen within the right kidney. A nephrostomy tube is in place, which is seen exiting through the ileal conduit. It appears the distal loop of the nep hrostomy tube has displaced from the renal pelvis into the proximal ureter. There is mild to moderate hydronephrosis. Left kidney and ureter: Punctate calculus in the left renal lower pole. No hydronephrosis. Absent urinary bladder with right lower quadrant ileal conduit. An intrauterine device is seen within the uterus. Slightly enlarged uterus probably related to uterine fibroids. The left ovary appears bulky. No intraperitoneal free fluid or free air. 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 Chronic deformity of the distal sacrum and the pelvic ring. Spina bifida. Severe scoliosis of the thoracolumbar spine. Soft tissues: Divarication of the recti noted. Thickening in the perineum probably related to chronic decubitus ulcer. IMPRESSION: 1. Mild to moderate hydronephrosis of the right kidney with gas seen in the right renal collecting system, and what appears to be distal migration of the proximal loop of the nephrostomy tube from the renal pelvis into the proximal ureter. 2. Punctate calculi seen within the right kidney. Tiny nonobstructing calculus in the left renal lower pole. 3. Cholelithiasis. 4. Moderate left-sided pleural effusion. 5. Chronic osseous changes, with sacral decubitus ulcer. 6. Bulky uterus probably related to fibroids. Chest 1view DX EXAM: XR CHEST 1 VIEW 01/22/2019 [facility] DATE: 01/22/2019 2:47 CDT Center INDICATION: - preop COMPARISON: 12/13/2018 at 1256 hours TECHNIQUE: AP chest. UT SECTION: ER FINDINGS: Lines, tubes and hardware: Redemonstrated left-sided ventriculopleural shunt and filter projecting over the superior cavoatrial junction. Lungs and pleura: There is a moderate-sized left pleural effusion. Hazy opacities are seen in the left mid and lower lung zones, likely compressive atelectasis. Heart and mediastinum: Grossly unchanged. Bones: Redemonstrated rightward curvature of the thoracic spine. IMPRESSION: 1. No significant interval change when compared to prior exam. 2. Moderate-sized left pleural effusion. Nephrostomy tube exchange VR PROCEDURE: Genitourinary catheter exchange 01/06 [facility] Procedural Personnel Center Attending physician(s): Dr Park Fellow physician(s): None Resident physician(s): None Advanced practice provider(s): None Pre-procedure diagnosis: Hydronephrosis Post-procedure diagnosis: Same Indication: Right Chronic hydronephrosis with calculus, s/p ileal-conduit. Request is for Neph-U cath placement Additional clinical history: None Complications: No immediate complications. IMPRESSION: Successful conversion of right nephrostomy to nephro-ureteral cath placement (10F x 22 cm) Plan: Routine exchange every 3 months. PROCEDURE SUMMARY - Target organ: Unilateral [place] kidney - Antegrade nephrostogram(s) via the existing access - Conversion to nephro-ureteral catheter - Additional procedure(s): None PROCEDURE DETAILS: Pre-procedure Consent: Informed consent for the procedure including risks, benefits and alternatives was obtained and time-out was performed prior to the procedure. Preparation: The site was prepared and draped using maximal sterile barrier technique including cutaneous antisepsis. Anesthesia/sedation Level of anesthesia/sedation: Moderate sedation (conscious sedation) Anesthesia/sedation administered by: Independent trained observer under attending supervision with continuous monitoring of the patient's level of consciousness and physiologic status Total intra-service sedation time (minutes): 30 Right genitourinary catheter exchange Local anesthesia was administered. Initial nephrostogram was performed. A wire was placed through the existing tube and it was removed. The new tube was advanced over the wire and position was confirmed with contrast injection. Pre-existing genitourinary catheter: [id number] nephrostomy Genitourinary catheter(s) placed: 10F x 22 cm Findings: Right ileal conduit with contrast hold up distally. Successful conversion to nephro-ureteral External catheter securement: Non-absorbable suture Additional genitourinary system intervention Genitourinary intervention: None Location of intervention: Not applicable Device used: Not applicable Description of intervention: Not applicable Post-intervention findings: Not applicable Contrast Contrast agent: Visipaque 320 Contrast volume (mL): 15 Radiation Dose Fluoroscopy time (minutes): 2.6 Reference air kerma (mGy): 19.7 Additional Details Additional description of procedure: None Equipment details: None Specimens removed: None Estimated blood loss (mL): Less than 10 Standardized report: [email or web address] Attestation Signer name: Clive Park MD I attest that I was present for the entire procedure. I reviewed the stored images and agree with the report as written. Abdomen AP DX EXAM: XR ABDOMEN 1 VIEW 12/18/2018 [facility] DATE: 12/18/2018 16:03 CDT Center INDICATION: - last BM 5 days ago ADDITIONAL INFORMATION: None. COMPARISON: CT dated 12/13/2018 TECHNIQUE: Supine AP view of the abdomen FINDINGS: Left pleural effusion with a [facility] shunt catheter seen overlying the left lower chest. The pigtail catheter is seen overlying the right mid abdomen. This likely corresponds to the percutaneous nephrostomy catheter. No bowel dilation. Bones are unchanged. IMPRESSION: 1. No bowel dilation. Ext Upper Venous Doppler EXAM: US LEFT UPPER EXTREMITY VENOUS DOPPLER 2018 [facility] US DATE: 12/14/2018 11:31 CDT Center INDICATION: - hx of LIJ DVT ADDITIONAL INFORMATION: None. COMPARISON: Left upper extremity venous Doppler dated 03/03/2018. TECHNIQUE: Multiplanar grayscale, color Doppler and spectral Doppler ultrasound of the left upper extremity veins. FINDINGS: Left Upper Extremity Veins: Internal Jugular: Nonocclusive peripheral thrombus Subclavian: Patent. Axillary: Patent. Brachial: Patent. Basilic: Patent. Cephalic: Not visualized. Other: None. 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 Nephrostomy drain perc PROCEDURE: Genitourinary catheter placement 2018 [facility] Procedural Personnel Center Attending physician(s): Hardik Fellow physician(s): Marine Resident physician(s): None Advanced practice provider(s): None Pre-procedure diagnosis: Hydronephrosis secondary to left nephrolithiasis Post-procedure diagnosis: Same Indication: Urinary obstruction Catheter(s) placed because the previous catheter(s) became dislodged within 30 days of placement (QCDR): No Additional clinical history: None Complications: No immediate complications. IMPRESSION: Right nephrostomy tube placement. Plan: Nephrostomy tube to gravity drainage bag. Flush nephrostomy tube with 10 mL sterile saline every 8 hours while hospitalized. Definitive treatment of nephrolithiasis per urology. PROCEDURE SUMMARY - Target organ: Unilateral [place] kidney - Image-guided placement of genitourinary catheter(s) - Additional procedure(s): None PROCEDURE DETAILS: Pre-procedure Consent: Informed consent for the procedure including risks, benefits and alternatives was obtained and time-out was performed prior to the procedure. Preparation: The site was prepared and draped using maximal sterile barrier technique including cutaneous antisepsis. Anesthesia/sedation Level of anesthesia/sedation: Moderate sedation (conscious sedation) Anesthesia/sedation administered by: Independent trained observer under attending supervision with continuous monitoring of the patient's level of consciousness and physiologic status Total intra-service sedation time (minutes): 30 Right genitourinary catheter placement Local anesthesia was administered. A needle was advanced into the renal collecting system under ultrasound and fluoroscopy guidance. A wire was advanced , the tract was serially dilated and a nephrostomy tube was placed . Contrast injection was performed. Genitourinary catheter placed: 12 Greek Findings: Several filling defects within the renal calyces, renal pelvis, and proximal ureter are consistent with known kidney stones. External catheter securement: Non-absorbable suture Additional genitourinary system intervention Genitourinary intervention: None Location of intervention: Not applicable Device used: Not applicable Description of intervention: Not applicable Post-intervention findings: Not applicable Contrast Contrast agent: Visipaque 320 Contrast volume (mL): 30 Radiation Dose Fluoroscopy time (minutes): 10 Reference air kerma (mGy): 211.9 Additional Details Additional description of procedure: None Equipment details: None Specimens removed: None. A sample was not sent for analysis. Estimated blood loss (mL): Less than 10 Standardized report: [email or web address] Attestation Signer name: Nito Dye MD I attest that I was present for the entire procedure. I reviewed the stored images and agree with the report as written. Pelvis w/wo contrast MRI Clinical indication: R58- excessive bleeding 2018 [facility] [place] Comparison: CT abdomen pelvis 04/12/2018 TECHNIQUE: Multiplanar and multisequence magnetic resonance imaging of the pelvis were obtained with and without IV contrast. IV contrast: 13 mL Dotarem FINDINGS: The inferior most portion of the pelvis including portions of the vagina and anal canal were not included on the scan field of view. Reproductive organs: The uterus is anteverted. There are multiple T2 hypointense uterine fibroids. A 5.1 x 4.2 x 5.3 cm intramural fibroid is present on the posterior uterine fundus. A 4.3 x 3.7 x 3.8 c m intramural fibroid is present on the anterior uterine fundus. A 3.8 x 3.2 x 2.9 cm fibroid appears separate, but adjacent to the uterus in the region of the left broad ligament. A few additional small er intramural uterine fibroids are present. There is also an ill-defined area of T2 hypointensity on the right anterior uterine fundus containing numerous tiny internal foci of T2 hyperintensity, sugges tive of an adenomyoma. This region measures 4.1 x 4 x 4.1 cm. The junctional zone measures up to 5 mm in thickness. The endometrium is normal in thickness, measuring up to 8 mm. Nabothian cysts are present in the cervix. Subcentimeter follicles are present in the bilateral ovaries. Peritoneum/retroperitoneum: A small amount of free fluid is present in the pelvis, which may be physiologic. Gastrointestinal: A left lower quadrant colostomy is present. Visualized portions of small bowel are normal in caliber. Urinary bladder: The urinary bladder is contracted. Lymph nodes: No pelvic lymphadenopathy. Pelvic vessels: The pelvic vessels enhance normally. Bones: There are redemonstrated changes of spina bifida. Rotatory scoliosis is present in the spine. Dysplasia of the right hip is seen with chronic dislocation of the right femur, remodeling of the right femoral head and shallow acetabulum. Soft tissues: A sacral decubitus ulcer is present. Enhancement is seen around the right greater trochanteric bursa suggestive of bursitis. There is diastases of the rectus abdominis muscles. Other: A partially visualized right kidney demonstrates multiple low signal filling defects in the renal pelvis, suggestive of nephrolithiasis. The largest measures 0.9 cm. IMPRESSION: 1. Multiple uterine fibroids as well as a 3.8 cm fibroid adjacent to the uterus, likely a broad ligament fibroid. 2. A 4.1 cm uterine adenomyoma. 3. Multiple right renal calculi. 4. Sacral decubitus ulcer. 5. No significant change in findings of spina bifida with right hip dysplasia. 6. Findings suggestive of right greater trochanteric bursitis. 7. Left lower quadrant colostomy. SL: [id number] Abd Renal Protocol w/wo IV 06/02/2018 [facility] contrast CT Study: Abd Renal Protocol w/wo IV contrast CT Clinical Indication: - Pyelonephritis Comparison: CT abdomen and pelvis from 04/12/2018 TECHNIQUE: Multiple axial CT images of the abdomen/pelvis were acquired before and after the administration of intravenous contrast. Multiplanar reformatted images were performed. Renal mass protocol was utilized. DZY=1888.8 mGy-cm FINDINGS: Limited views of the lung [...] nephrolithiasis. 4. Moderate-sized left pleural effusion. SL: [id number] Chest 1view DX EXAM: XR CHEST 1 VIEW 04/15/2018 [facility] DATE: 04/15/2018 10:31 AM T Center INDICATION: - Post thoracentesis COMPARISON: 04/13/2018 TECHNIQUE: [...] stable compared to previous study. 4. Left-sided [facility] shunt again seen. 5. Osseous structures are stable. Chest 1view DX EXAM: XR CHEST 1 VIEW 04/13/2018 [facility] DATE: 04/13/2018 3:00 AM T Center INDICATION: - intubated, pleural effusions. FINDINGS: Comparison [...] right atrium; this has been seen dating ba ck to at least 2009. There is a left-sided ventriculopleural shunt in place. Rightward curvature of the thoracic spine. IMPRESSION: No change. Nephrostomy tube exchange VR EXAM: VIR left-sided Percutaneous Nephrostomy Tube Exchanges 04/12/2018 [facility] DATE: 04/12/2018 7:14 PM T Center PROCEDURE(S) PERFORMED: INDICATION: 37 years old Female with urinary obstruction. FACULTY: Pedro Kennedy MD RESIDENT/FELLOW/COMPRESS MACHINE OPERATOR: Doron Del Rio ANESTHESIA/SEDATION: Moderate sedation PHYSICIAN SUPERVISED ANESTHESIA TIME: 30 min SPECIMEN: None DRAINS: 10-Greek pigtail catheter. ESTIMATED BLOOD LOSS: Less than [...] : Patient was already on appropriate antibiotics IV.Fire Hydrant Mechanic radiographs demonstrated the nephro stomy tubes in the region of the renal pelvis. Local anesthesia was achieved using 1% Lidocaine. A glide wire was advanced through the left nephrostomy tube into the collecting system. The tube was then severed to release the distal loop and removed over a wire. 10 Greek nephrostomy tube was inser alda over wire [...] Kennedy MD was present for the procedure. Abdomen/Pelvis wo IV contrast EXAM: CT ABDOMEN AND PELVIS WITHOUT CONTRAST [facility] CT DATE: 04/11/2018 11:33 PM CDT Center INDICATION: - PCN in place, history of [...] place. * Left renal nephrostomy tube. * HOSP[facility] shunt catheter in the left hemithorax. Lower [...] ulcer. 8. Likely tiny gallstones/sludge. Chest 1view DX EXAM: XR CHEST 1 VIEW 04/11/2018 [facility] DATE: 04/11/2018 11:32 PM CDT Center INDICATION: - shortness of breath. FINDINGS: Comparison [...] of unclear location. Please correlate. Ext Upper Venous Doppler EXAM: US LEFT UPPER EXTREMITY VENOUS DOPPLER 2017 [facility] US DATE: 03/03/2018 1002 hours Center INDICATION: Evaluate for DVT COMPARISON: None. TECHNIQUE: [...] with Dr. Lucas at 1305 hours 03/03/2018. Nephrostomy drain perc EXAM: VIR LEFT NEPHROSTOMY PLACEMENT 03/01/2018 [facility] VR DATE: 03/01/2018 3:23 PM T Center PROCEDURE(S) PERFORMED: 1. Ultrasound-guided access to left kidney 2. Fluoroscopic guided placement off the nephrostomy tube INDICATION: 37 years old Female with pelviureteric obstruction and hydronephrosis presents for nephrostomy tube placement. FACULTY: Timothy Gomez MD RESIDENT/FELLOW/COMPRESS MACHINE OPERATOR: None SUPERVISION: Not applicable ANESTHESIA/SEDATION: Moderate sedation [...] Shiva set sheath was exchanged for a Bentson wire and an 10 Fr nephrostomy tube [...] TIMOTHY GOMEZ was present for the procedure. Torso-Outside Consult CT EXAM: CT ABDOMEN AND PELVIS WITHOUT CONTRAST 2017 [facility] DATE: 03/01/2018 2:03 AM CDT Center INDICATION: Torso-Outside Consult CT COMPARISON: 11/06/2017 TECHNIQUE: [...] a shallow acetabulum. 9. Sacral decubitus ulcers. Abdomen/Pelvis w IV contrast EXAM: CT ABDOMEN AND PELVIS WITH CONTRAST 2017 [facility] CT DATE: 11/06/2017 9:00 AM [facility] Center INDICATION: - ? Intermittent SBO, h/o resection [...] subserosal fibroid in the left lateral wall (/). Pessary is present. Gastrointestinal tract: Stomach: Normal. [...] Other incidental findings described above are stable. Ventriculoperitoneal shunt EXAM: NM Shunt Patency 11/16/2016 [facility] [place] DATE: 11/14/2016 4:02 AM CDT Center INDICATION: Headache(s). COMPARISON: CT abdomen pelvis on [...] pleural effusion is identified. Abdomen 1 v for Placement DX EXAM: XR ABDOMEN 1 VIEW 11/14/2016 [facility] DATE: 11/14/2016 10:41 AM [facility] INDICATION: Line Placement ADDITIONAL INFORMATION: None. COMPARISON: None. TECHNIQUE: Limited AP view of the abdomen for tube placement assessment. Number of images: 1 FINDINGS: A nasogastric tube side port overlies the gastric fundus. Moderate left pleural effusion is again seen. IMPRESSION: 1. A nasogastric tube side port overlies the gastric fundus Abdomen 1 v for Placement DX EXAM: XR ABDOMEN 1 VIEW 11/14/2016 [facility] [facility] DATE: 11/14/2016 5:33 AM [facility] INDICATION: Line Placement COMPARISON: Outside CT abdomen [...] small bowel concerning for small bowel obstruction. Torso-Outside Consult CT EXAM: CT ABDOMEN AND PELVIS WITH CONTRAST 2016 [facility] DATE: 11/14/2016 4:02 AM CDT Center INDICATION: - outside study ADDITIONAL INFORMATION: None. COMPARISON: None. TECHNIQUE: CT abdomen pelvis with intravenous and enteric contrast was performed at [facility]. Arterial and venous phase imaging [...] defect is present in L2 through the sacrum, consistent with history of spina bifida. The [...] bilateral hip dysplasia, right greater than left. Consultation Notes No Data Provided for This Section Discharge Summaries No Data Provided for This Section History and Physicals No Data Provided for This Section Vital Signs Vital Sign Value Date Comments Source Respitory Rate 16 01/31/2019 [facility] Systolic (mm Hg) 123 01/31/2019 [facility] Diastolic (mm Hg) 83 01/31/2019 [facility] Systolic (mm Hg) 128 01/31/2019 [facility] Diastolic (mm Hg) 79 01/31/2019 [facility] Temperature Oral (F) 98.4 F 01/31/2019 [facility] Respitory Rate 16 01/31/2019 [facility] Diastolic (mm Hg) 72 01/31/2019 [facility] Temperature Oral (F) 98.4 F 01/31/2019 [facility] Systolic (mm Hg) 108 01/31/2019 [facility] Respitory Rate 16 01/31/2019 [facility] Temperature Oral (F) 98.5 F 01/31/2019 [facility] Heart Rate 64 01/31/2019 [facility] Respitory Rate 19 01/23/2019 [facility] Systolic (mm Hg) 115 01/23/2019 [facility] Diastolic (mm Hg) 77 01/23/2019 [facility] Temperature Oral (F) 98.5 F 01/23/2019 [facility] Heart Rate 100 01/23/2019 [facility] Systolic (mm Hg) 111 01/23/2019 [facility] Diastolic (mm Hg) 77 01/23/2019 [facility] Respitory Rate 18 01/23/2019 [facility] Heart Rate 85 01/23/2019 [facility] Temperature Oral (F) 98.0 F 01/23/2019 [facility] Temperature Oral (F) 98.1 F 01/23/2019 [facility] Respitory Rate 18 01/23/2019 [facility] Systolic (mm Hg) 106 01/23/2019 [facility] Diastolic (mm Hg) 72 01/23/2019 [facility] Heart Rate 90 01/23/2019 [facility] Height 152.4 cm 01/22/2019 [facility] BMI Calculated 27.24 01/22/2019 [facility] Weight 63.273 01/22/2019 [facility] Weight 64.545 01/22/2019 [facility] BMI Calculated 27.79 01/22/2019 [facility] Height 152.4 cm 01/22/2019 [facility] Systolic (mm Hg) 114 01/15/2019 [facility] Diastolic (mm Hg) 79 01/15/2019 [facility] Heart Rate 87 01/15/2019 [facility] Temperature Oral (F) 98.5 F 01/15/2019 [facility] Respitory Rate 18 01/15/2019 [facility] Systolic (mm Hg) 116 01/15/2019 [facility] Diastolic (mm Hg) 81 01/15/2019 [facility] Respitory Rate 18 01/15/2019 [facility] Temperature Oral (F) 98 F 01/15/2019 [facility] Heart Rate 88 01/15/2019 [facility] Temperature Oral (F) 98.5 F 01/15/2019 [facility] Respitory Rate 18 01/15/2019 [facility] Heart Rate 91 01/15/2019 [facility] Systolic (mm Hg) 112 01/15/2019 [facility] Diastolic (mm Hg) 79 01/15/2019 [facility] Height 152.4 cm 01/05/2019 [facility] BMI Calculated 27.79 01/05/2019 [facility] Weight 64.545 01/05/2019 [facility] Temperature Oral (F) 98.0 F 12/19/2018 [facility] Systolic (mm Hg) 120 12/19/2018 [facility] Diastolic (mm Hg) 82 12/19/2018 [facility] Heart Rate 81 12/19/2018 [facility] Respitory Rate 18 12/19/2018 [facility] Temperature Oral (F) 98.1 F 12/19/2018 [facility] Heart Rate 80 12/19/2018 [facility] Respitory Rate 18 12/19/2018 [facility] Systolic (mm Hg) 135 12/19/2018 [facility] Diastolic (mm Hg) 86 12/19/2018 [facility] Systolic (mm Hg) 124 12/19/2018 [facility] Diastolic (mm Hg) 87 12/19/2018 [facility] Heart Rate 85 12/19/2018 [facility] Respitory Rate 18 12/19/2018 [facility] Temperature Oral (F) 97.8 F 12/19/2018 [facility] Weight 66.506 12/15/2018 [facility] Height 152.4 cm 12/15/2018 [facility] Height 152.4 cm 12/14/2018 [facility] BMI Calculated 28.63 12/14/2018 [facility] Weight 66.506 12/14/2018 [facility] Weight 64.545 12/14/2018 [facility] BMI Calculated 27.79 12/14/2018 [facility] Height 152.4 cm 12/14/2018 [facility] Heart Rate 99 04/20/2018 [facility] Temperature Oral (F) 98.5 F 04/20/2018 [facility] Respitory Rate 18 04/20/2018 [facility] Systolic (mm Hg) 126 04/20/2018 [facility] Diastolic (mm Hg) 83 04/20/2018 [facility] Systolic (mm Hg) 134 04/20/2018 [facility] Diastolic (mm Hg) 86 04/20/2018 [facility] Temperature Oral (F) 98.9 F 04/20/2018 [facility] Heart Rate 100 04/20/2018 [facility] Respitory Rate 18 04/20/2018 [facility] Respitory Rate 18 04/20/2018 [facility] Temperature Oral (F) 98.0 F 04/20/2018 [facility] Systolic (mm Hg) 126 04/20/2018 [facility] Diastolic (mm Hg) 78 04/20/2018 [facility] Heart Rate 101 04/20/2018 [facility] Height 152.4 cm 04/12/2018 [facility] BMI Calculated 31.9 04/12/2018 [facility] Weight 74.091 04/12/2018 [facility] Temperature Oral (F) 98.9 F 03/04/2018 [facility] Heart Rate 67 03/04/2018 [facility] Systolic (mm Hg) 135 03/04/2018 [facility] Diastolic (mm Hg) 91 03/04/2018 [facility] Respitory Rate 20 03/04/2018 [facility] Systolic (mm Hg) 150 03/04/2018 [facility] Diastolic (mm Hg) 91 03/04/2018 [facility] Temperature Oral (F) 98.4 F 03/04/2018 [facility] Heart Rate 85 03/04/2018 [facility] Respitory Rate 18 03/04/2018 [facility] Systolic (mm Hg) 147 03/04/2018 [facility] Diastolic (mm Hg) 95 03/04/2018 [facility] Temperature Oral (F) 98.3 F 03/04/2018 [facility] Respitory Rate 20 03/04/2018 [facility] Heart Rate 82 03/04/2018 [facility] BMI Calculated 28.85 03/01/2018 [facility] Weight 67 03/01/2018 [facility] Height 152.4 cm 03/01/2018 [facility] Weight 67.6 03/01/2018 [facility] Systolic (mm Hg) 111 11/06/2017 [facility] Diastolic (mm Hg) 75 11/06/2017 [facility] Respitory Rate 18 11/06/2017 [facility] Temperature Oral (F) 98.4 F 11/06/2017 [facility] Respitory Rate 20 11/06/2017 [facility] Systolic (mm Hg) 123 11/06/2017 [facility] Diastolic (mm Hg) 85 11/06/2017 [facility] Systolic (mm Hg) 108 11/06/2017 [facility] Diastolic (mm Hg) 66 11/06/2017 [facility] Respitory Rate 18 11/06/2017 [facility] Temperature Oral (F) 98.9 F 11/06/2017 [facility] Weight 67.727 11/06/2017 [facility] Heart Rate 98 11/06/2017 [facility] Temperature Oral (F) 99.4 F 11/06/2017 [facility] Height 60 10/08/[address] [facility] Weight 158 10/08/[address] [facility] Temperature Oral (F) 97.1 F 10/08/[address] [facility] Heart Rate 102 10/08/[address] [facility] Respitory Rate 17 10/08/[address] [facility] Systolic (mm Hg) 125 10/08/[address] [facility] Diastolic (mm Hg) 78 10/08/[address] [facility] Encounters Location Location Encounter Encounter Reason Attending ADM DC Status Source Details Type Number For Provider Date Date Visit [facility] [id number] 07/11 07/[address] [facility] [id number] 07/30 07/[address] [facility] [id number] 08/28 08/[address] [facility] [id number] 09/23 09/[address] [facility] [id number] 10/01 10/[address] [facility] Emergency [id number] El[place] 11/06 11/[address] [facility] [place] 5 Ostermayer /2017 [facility] Inpatient [id number] Randall 03/01 03/04 [facility] 3 Onye [facility] Inpatient [id number] Burton 04/12 04/20 [facility] 5 [facility] [id number] Lilliana 06/02 06/03 [id number] Outpatient Services 3 Barba .1.60161 Imaging 3.3.615. [place] 134 MH Outpt Diag [id number] Lilliana 06/06 06/06 [facility] 2 Barba [facility] PreReg [id number] Madeline Rodríguezoub 06/16 07[facility]25 [facility] Outpt Diag [id number] Jaredniya Huffmanz 12/06 12/07 [facility] Outpatient Services [facility] Inpatient [id number] [place] 12/14 12/19 [facility] 7 Donnell [facility] Observation [id number] Jared Aguilar 01/12 01/15 [facility] Memorial Observation [id number] Pin Watson 01/22 01/23 [facility] Emergency [id number] Burton 01/31 01/31 [facility] 4 [facility] Procedures Procedure Code Date Perfomer Comments Source [place] Count [id number] [address] [facility] [id number] [address] [facility] Stone Protocol [id number] 09/29/[address] [facility] Culture & [id number] 09/23/[address] [facility] [place] Abdomen & Pelvis W [id number] 09/23/[address] [facility] Cont[facility] [place] Anaerobic Blood [id number] 08/28/[address] [facility] [place] Aerobic Blood [id number] 08/28/[address] [facility] [place] Chest Single View [id number] 08/28/[address] [facility] Influenza Type B 08/28/[address] [facility] Antigen Screen [place] Influenza Type A 08/28/2017 [facility] Jose Alejandro - Antigen Screen [place] Colostomy [id number] [facility],2.16.840 .[id number] .134, [facility] [place] Construction of [id number] [facility] urostomy Medical [place],[id number] .[id number] .134, [facility] [place] Reopening of [id number] [facility] abdomen and Medical re-exploration of Center,2.16.840 intra-abdominal .[id number] operation site and .134, [facility] surgical arrest of [place] postoperative bleeding Operation [id number] [facility] Assessment and Plan Assessment and Plan Date Source Extracted from:Title: [place] Uro PN 01/23/2019 [facility] Author: Leslye Castro MD [place] Date: 01/23/19 Impression and Plan Patient is a 38 yo F with H spina bifida sp diverting colostomy and urostomy who presented to ED as a transfer from OSH for dislodgement of PCN tube. - patient clinically stable and stent still in place - do not think PCN needs to be replaced - patient okay to be discharged and can follow up with Dr. Aleman in 2-3 weeks after discharge. 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 IT IS NOT NECESSARY TO CULTURE STERILE SITES (BLOOD, CSF, HEALED WOUNDS) WHEN TRYING TO DISCONTINUE ISOLATION. Organism/Condition Status Cultures/Test Sites Multi-drug Resistant Gram Negative Bacteria (Defined as resistant to at least 1 drug in 3 of the 5 drug classes below) a. Cefepime or ceftazidime b. Pip/tazo or ticar/clav c. Gentamicin, amikacin or tobramycin d. Meropenem e. Ciprofloxacin or moxifloxacin Off abx x 72hrs or 7 days if on dialysis and aminoglycoside x2, 48 hrs apart Any previous positive non-sterile site (e.g. urine, stool, throat) MRSA Off abx x 72hrs or 7 days if on dialysis and vancomycin MRSA PCR Nares specimen VRE Isolation precautions should not be discontinued Influenza Human (seasonal influenza) Maintain precautions for 7 days after illness onset or until 24 hours after resolution of fever and respiratory symptoms. Maintain precautions for longer periods in immunocompromised persons based on clinical judgment. TB: Pulmonary or Laryngeal Contact Infection Control at [phone] (on-call line) or [phone] (on- call pager ) If the patient is high risk or if there is still a strong clinical suspicion of pulmonary TB after one negative PCR due to epidemiological risk factors and clinical symptoms, another respiratory MTB PCR sample can be sent. Mycobacterium tuberculosis (MTB) PCR w/ Isolation MPP Sputum and/or BAL PCN-R or PCN-Intermediate Streptococcus pneumoniae 48 hrs of effective antibiotic and resolution of clinical S/S of pulmonary involvement Stenotrophomonas R to Trimethoprim-Sulfa Methoxazole (T/S) Off abx x 72hrs or 7 days if on dialysis and aminoglycoside x2, 48h apart Any previous positive non-sterile site (e.g. urine, stool, throat) Chryseobacterium meningosepticum (formerly Flavobacterium meningosepticum) and other Chryseobacterium spp. R to minocycline, rifampin, or vancomycin Off abx x 72hrs or 7 days if on dialysis and vancomycin x2, 48h apart Any previous positive non-sterile site (e.g. urine, stool, throat) Gram negative enterics: Salmonella, Shigella, etc. Off abx x 48 hrs x2, 48h apart Stool Varicella Zoster Maintain precautions until all lesions are dry and crusted. Place susceptible patients on precautions beginning day 8 after exposure to day 21 after last exposure or day 28 for patients who have received VZIG. Measles (rubeola) Maintain precautions for 4 days after onset of rash except duration of illness (with wound lesions, until wounds stop draining) in immunocompromised persons. Consult Infection Disease Physician for suggested regimens for decolonization of patients with MRSA as well as for any questions. Please contact the Infection Control Department at [phone] with any questions regarding isolation. Extracted from:Title: History and Physical Author: Vicente Alberts MD Date: 01/22/19 38-year-old female withrightobstructivenephrolithiasis presented for dislodged nephrostomy tube. 1.Nephrostomy dislodgement(Z93.6) Urology consulted for PCN replacement. keep NPO Ordered: tramadol, 50 mg, Route: PO, Drug form: TAB, Q6H, Dosing Weight 64.545, kg, PRN Pain Score 1-3, Start date: 01/22/19 6:42:00 CDT, Duration: 30 day, Stop date: 02/21/19 6:41:00 CDT 2.Spina bifida(Q05.9) s/p [facility] shunt, c/b paraplegia. no active issue. Ordered: tramadol, 50 mg, Route: PO, Drug form: TAB, Q6H, Dosing Weight 64.545, kg, PRN Pain Score 1-3, Start date: 01/22/19 6:42:00 CDT, Duration: 30 day, Stop date: 02/21/19 6:41:00 CDT 3.Colostomy status(Z93.3) s/p diverting colostomy. regular colostomy care Ordered: tramadol, 50 mg, Route: PO, Drug form: TAB, Q6H, Dosing Weight 64.545, kg, PRN Pain Score 1-3, Start date: 01/22/19 6:42:00 CDT, Duration: 30 day, Stop date: 02/21/19 6:41:00 CDT 4.TOD on CPAP(G47.33) cont CPAP at bedtime Ordered: tramadol, 50 mg, Route: PO, Drug form: TAB, Q6H, Dosing Weight 64.545, kg, PRN Pain Score 1-3, Start date: 01/22/19 6:42:00 CDT, Duration: 30 day, Stop date: 02/21/19 6:41:00 CDT 5.History of DVT in adulthood(Z86.718) hold xarelto for the planned urological surgery Ordered: tramadol, 50 mg, Route: PO, Drug form: TAB, Q6H, Dosing Weight 64.545, kg, PRN Pain Score 1-3, Start date: 01/22/19 6:42:00 CDT, Duration: 30 day, Stop date: 02/21/19 6:41:00 CDT 6.Functional paraplegia(R53.2) frequent turn, bowel regimen Ordered: tramadol, 50 mg, Route: PO, Drug form: TAB, Q6H, Dosing Weight 64.545, kg, PRN Pain Score 1-3, Start date: 01/22/19 6:42:00 CDT, Duration: 30 day, Stop date: 02/21/19 6:41:00 CDT 7.Acute UTI(N39.0) patient is on triple treatment forUTI started6 days ago. She has no acute sign of UTI. will continue augmen, minocycline and fluconazole to complete 10 days course Ordered: tramadol, 50 mg, Route: PO, Drug form: TAB, Q6H, Dosing Weight 64.545, kg, PRN Pain Score 1-3, Start date: 01/22/19 6:42:00 CDT, Duration: 30 day, Stop date: 02/21/19 6:41:00 CDT 8.Benign essential HTN(I10) amlodipine 9.Anxiety(F41.9) sertraline restart xarelto when postop expect 1-2mn, return to home on discharge. Extracted from:Title: Urology Progress Note 01/15/2019 [facility] Author: Caio Villalobos MD Center Date: 01/15/19 Impression and Plan Pt is a 38 y.o G0 with PMH paralysis 2/2 spina bifida, pelvic organ prolapse s/ p vaginal reconstruction, h/o kidney stones s/p right PCN now s/p mirena placement and PCNL. #Nephrolithiasis/UTI - s/p PCNL on 01/12. - PCN uncapped - Continue abx #Heavy menstrual bleeding: - s/p hscope d&c, mirena IUD placement and pap #POP - s/p reconstructive surgery and pessary removal in the office by Dr Aguilar #Spina bifida - paralyzed from waist down with ileostomy in place - s/p vetriculopleural shunt converted from ventriculoperitoneal shunt # H/o DVT - L. IJ, currently not in anticoagulation - denies sxs today #Asthma - xopenex for this Diet: Reg ppx: lvx Code: FULL Dispo; Will monitor pain and nausea. Plan for d/c today Extracted from:Title: Clinical Document Author: Jared Aguilar MD Date: 01/12/19 R1 H&P cc: here for surgery HPI: Pt is a 38 y.o G0 with PMH of heavy menstrual bleeding requiring blood transfusions, asthma, pelvic organ prolapse s/p vaginal reconstruction, h/o kidney stones s/p right PCN on 12/15, DVT ( not on anticoagulation anymore),pressure wounds and spina bifida from which she is paralyzed from the waist down here for surgical management of her heavy menstrual bleeding with planned procedure of hysterosc opy, dilation and curettage , Mirena Intra uterine device insertion and pap smear. Constitutional Symptoms: no fever, no weight loss, no weight gain, no fatigue , no malaise Eyes: no diplopia, no blurred vision, no redness, no discharge, no loss of vision Ears, Nose, Mouth, Throat: no dysphagia, no odynophagia, no otalgia, no deafness, no rhinorrhea Cardiovascular: no chest pain, no SOB, no ZELAYA, no orthopnea, no PND, exercise tolerated, no palpitations Respiratory: same as CVS, no cough, no hemoptysis Gastrointestinal: no NVD, no BPR, no dark stool, no constipation, no abdominal pain Genitourinary: no dysuria, no frequency, no urgency, no nocturia, no incontinence Musculoskeletal: no arthralgia, no myalgia, no stiffness Integumentary: (skin and/or breast): no rash, no hives, no breast pain, no mass , no nipple dc Neurological: no weakness, no headache, no seizure, no dizziness, no tingling, no numbness Psychiatric: no anxiety, no depression, no insomnia Endocrine: no polyuria, no polydipsia, no fatigue, no weight loss, no weight gain, no cold or heat intolerance, no palpitations Hematologic/Lymphatic: no bruising, no edema, no lumps (axilla groin neck) Allergic/Immunologic: no rash, no allergies, no fever, no chills OBHX: G0 GYNHX: STD: den abn paps: den PMH: Spina bifida Colostomy present Hypertension Clotting disorder Pleural effusion on left Sepsis Depression Pneumothorax All: lax, morphine, rubber, vancomycin Meds: amoxicillin Soc: neg x3 Fam Hx: fam hx of HTN, cancer and heart disease PE GEN: NAD RESP: Non labored breathing ABD: Soft NTND Pelvic: deferred till surgery Imaging MRI 12/06/2018 FINDINGS: The inferior most portion of the pelvis including portions of the vagina and anal canal were not included on the scan field of view. Reproductive organs: The uterus is anteverted. There are multiple T2 hypointense uterine fibroids. A 5.1 x 4.2 x 5.3 cm intramural fibroid is present on the posterior uterine fundus. A 4.3 x 3.7 x 3.8 c m intramural fibroid is present on the anterior uterine fundus. A 3.8 x 3.2 x 2.9 cm fibroid appears separate, but adjacent to the uterus in the region of the left broad ligament. A few additional small er intramural uterine fibroids are present. There is also an ill-defined area of T2 hypointensity on the right anterior uterine fundus containing numerous tiny internal foci of T2 hyperintensity, sugges tive of an adenomyoma. This region measures 4.1 x 4 x 4.1 cm. The junctional zone measures up to 5 mm in thickness. The endometrium is normal in thickness, measuring up to 8 mm. Nabothian cysts are present in the cervix. Subcentimeter follicles are present in the bilateral ovaries. Peritoneum/retroperitoneum: A small amount of free fluid is present in the pelvis, which may be physiologic. Gastrointestinal: A left lower quadrant colostomy is present. Visualized portions of small bowel are normal in caliber. Urinary bladder: The urinary bladder is contracted. Lymph nodes: No pelvic lymphadenopathy. Pelvic vessels: The pelvic vessels enhance normally. Bones: There are redemonstrated changes of spina bifida. Rotatory scoliosis is present in the spine. Dysplasia of the right hip is seen with chronic dislocation of the right femur, remodeling of the right femoral head and shallow acetabulum. Soft tissues: A sacral decubitus ulcer is present. Enhancement is seen around the right greater trochanteric bursa suggestive of bursitis. There is diastases of the rectus abdominis muscles. Other: A partially visualized right kidney demonstrates multiple low signal filling defects in the renal pelvis, suggestive of nephrolithiasis. The largest measures 0.9 cm. IMPRESSION: 1. Multiple uterine fibroids as well as a 3.8 cm fibroid adjacent to the uterus, likely a broad ligament fibroid. 2. A 4.1 cm uterine adenomyoma. 3. Multiple right renal calculi. 4. Sacral decubitus ulcer. 5. No significant change in findings of spina bifida with right hip dysplasia. 6. Findings suggestive of right greater trochanteric bursitis. 7. Left lower quadrant colostomy. Assessment/plan: Pt is a 38 y.o G0 with PMH of heavy menstrual bleeding requiring blood transfusions, asthma, pelvic organ prolapse s/p vaginal reconstruction, h/o kidney stones s/p right PCN on 12/15, D VT ( not on anticoagulation anymore),pressure wounds and spina bifida from which she is paralyzed from the waist down here for surgical management of her heavy menstrual bleeding with planned procedure of hysteroscopy, dilation and curettage , Mirena Intrauterine device insertion and pap smear. 1. Heavy menstrual bleeding: - has required multiple blood transfusions in the past, with recent admission to [facility] with Hb 4. - MRI: ET 8mm, adenomyosis noted in uterine fundus, Multiple intramural fibroids and one Anterior uterine fibroid 3.8 cm - last hgb 11.1 - will proceed with hscope d&c, mirena IUD placement and pap 2. POP - s/p reconstructive surgery and pessary removal in the office by Dr Aguilar - pt had never removed the pessary since it was placed by Dr Mahoney in 2009 - no prolapse sxs since removal of pessary 3. Spina bifida - paralyzed from waist down with ileostomy in place - s/p vetriculopleural shunt converted from ventriculoperitoneal shunt 4. H/o DVT -L. IJ, currently not in anticoagulation - denies sxs today 5. Asthma - takes xopenex for this - no sxs currently - if pt stays in house overnight, will order this to bedside 6. chronic kidney stones - s/p R PCN placement by urology in 11/2018 for nephrolithiasis - history of sepsis after admission for nephrolithiasis in which PCN tube was placed and had to be exchanged because of sepsis - most recent U clx pos for acinetobacter and enterococcus - s/p rx with amoxicillin - plan for combined procedure for lithotripsy. 7. complicated UTI - s/p admission for complicated UTI requiring R PCN placement. sp exchange in - received abx for 2 days in house and oral meds in out pt 8. HCM Pap: none on file GC/CT: none on file Dispo: to OR for combined procedure with Urology. Kelly Miramontes M.D Resident Physician | PGY1 Department of Obstetrics, Gynecology and Reproductive Sciences [facility] Extracted from:Title: FM pn 12/19/[address] [facility] Medical Author: Masoud Lee MD Center Date: 12/19/18 In summary, 38 YOF with pmhx of spina bifida s/p vp treasurer shunt, diverity colostomy and urostomy, dvts (no longer on anticoagulation, previously on xarelto), HTN, sleep apnea, pressure ulcers and recu rrent nephrolithiasis s/p pcns last year bilaterally presented from OSH with nephrolithiasis and subsequent hydronephrosis and concern for pyelonephritis admitted to our service for management. Nephrolithiasis: - urology following - s/p R PCN with IR on 12/14 - ceftriaxone 1 gram dailyx 3 days - d/c'ed -transitioned to PO macrobid day5 out of 10, ciprofloxacin day 5 of 10 (total abx days) - UA with reflex culture- E. Coli > 100k, sens. to macrobid, proteus 50-100k sens. to cipro. -Blood cx - gram + cocci in cluster prelim 1 of 4 bottles -repeat blood cx- NGTD Complicated UTI: - plan as above Spina Bifida - PT/OT consulted HTN: - no record of antihypertensive in the system -pt has been normotensive while inpt TOD: - CPAP at night Decubitus ulcers: - wound care nursefollowing HX of DVTs -currently off xarelto, will hold off on xarelto -LUE doppler: chronic LIJ -lovenox ppx Anxiety and depression - continue home sertraline FEN/GI -replace lytes prn. Health maintenance - DVT Prophylaxis:lovenox ppx dispo: likely d/c today Addendum by Dora Villalobos MD on 12/19/2018 13:02 CDT ATTENDING ADDENDUM Ipersonally interviewed and examined this patient with the residents. I reviewed labs, studies and consultants notes. I agree with above assessment and plan. Briefly,38 yo female with spina bifida prese nted with nephrolithiasis s/p right percutaneous nephrostomy tube and found to have enterococcus and proteus uti. No events overnight. Respondedrobustly to stool softeners for constipation.VS have stabi lized. Labsremarkable for microcytic anemia. Plan is optimize nutrition, discharge home with a total of 10 days of macrobid and cipro for her complicated utis and close follow up with urology and pcp. D ischarge today in improved condition. Discharge time 35 min. Dora Villalobos MD [facility] Family Medicine Attending Extracted from:Title: Infection Control Isolation Alert Author: Ana M Alejandre Date: 12/14/18 ISOLATION ALERT This patient has a history of infection/colonization with Organism/Condition Site Date MRSA Nares 04/13/2018 Isolation Required: CONTACT Before isolation precautions may be discontinued, the following protocol must be followed and Infection Control should be notified. IT IS NOT NECESSARY TO CULTURE STERILE SITES (BLOOD, CSF, HEALED WOUNDS) WHEN TRYING TO DISCONTINUE ISOLATION. Organism/Condition Status Cultures/Test Sites Multi-drug Resistant Gram Negative Bacteria (Defined as resistant to at least 1 drug in 3 of the 5 drug classes below) a. Cefepime or ceftazidime b. Pip/tazo or ticar/clav c. Gentamicin, amikacin or tobramycin d. Meropenem e. Ciprofloxacin or moxifloxacin Off abx x 72hrs or 7 days if on dialysis and aminoglycoside x2, 48 hrs apart Any previous positive non-sterile site (e.g. urine, stool, throat) MRSA Off abx x 72hrs or 7 days if on dialysis and vancomycin MRSA PCR Nares specimen VRE Isolation precautions should not be discontinued Influenza Human (seasonal influenza) Maintain precautions for 7 days after illness onset or until 24 hours after resolution of fever and respiratory symptoms. Maintain precautions for longer periods in immunocompromised persons based on clinical judgment. TB: Pulmonary or Laryngeal Contact Infection Control at [phone] (on-call line) or [phone] (on- call pager ) If the patient is high risk or if there is still a strong clinical suspicion of pulmonary TB after one negative PCR due to epidemiological risk factors and clinical symptoms, another respiratory MTB PCR sample can be sent. Mycobacterium tuberculosis (MTB) PCR w/ Isolation MPP Sputum and/or BAL PCN-R or PCN-Intermediate Streptococcus pneumoniae 48 hrs of effective antibiotic and resolution of clinical S/S of pulmonary involvement Stenotrophomonas R to Trimethoprim-Sulfa Methoxazole (T/S) Off abx x 72hrs or 7 days if on dialysis and aminoglycoside x2, 48h apart Any previous positive non-sterile site (e.g. urine, stool, throat) Chryseobacterium meningosepticum (formerly Flavobacterium meningosepticum) and other Chryseobacterium spp. R to minocycline, rifampin, or vancomycin Off abx x 72hrs or 7 days if on dialysis and vancomycin x2, 48h apart Any previous positive non-sterile site (e.g. urine, stool, throat) Gram negative enterics: Salmonella, Shigella, etc. Off abx x 48 hrs x2, 48h apart Stool Varicella Zoster Maintain precautions until all lesions are dry and crusted. Place susceptible patients on precautions beginning day 8 after exposure to day 21 after last exposure or day 28 for patients who have received VZIG. Measles (rubeola) Maintain precautions for 4 days after onset of rash except duration of illness (with wound lesions, until wounds stop draining) in immunocompromised persons. Consult Infection Disease Physician for suggested regimens for decolonization of patients with MRSA as well as for any questions. Please contact the Infection Control Department at [phone] with any questions regarding isolation. Extracted from:Title: Clinical Document Author: Rocio Dickson MD Date: 12/14/18 R1 History and Physical PATIENT NAME: Elva Hyatt ATTENDING PHYSICIAN: Dr. Jacobo DATE OF ADMISSION: 12/14/2018 HISTORY TAKEN FROM: Patient, Electronic Medical Records and ER notes CHIEF COMPLAINT: right sided flank pain HISTORY OF PRESENT ILLNESS: In summary, 38 YOF with pmhx of spina bifida s/p vp treasurer shunt, diverity colostomy and urostomy, dvts (no longer on anticoagulation, previously on xarelto), HTN, sleep apnea, pressure ulcers, menorrhagia req uiring transfusions, anxiety and depression, and recurrent nephrolithiasis s/p pcns last year bilaterally presented from OSH for higher level of care with nephrolithiasis with right hydronephrosis and c oncern for pyelonephritis. Patient said yesterday morning she began having an abrupt onset of sharp right flank pain, nausea, 2x nonbloody emesis, subjective fevers (99.7 F measured under tongue), and c hills. Niece then called EMS. Patient has not noticed changes in output but does endorse foul smelling urine [facility] for multiple R ureteral calculi w/ moderate R hydro on CT. OSH CT report notable for moderate L pleural effusion, b/l renal calculi, R ureteral calculi w/ multiple stones between 3-10mm, moderate R hydro. CT Chest non/con shows ventricular shunt in L pleura, mo derate L pleural effusion w/ atelectasis, no pericardial effusion, no LAD UA: 1+blood, 3+ Leuk, Pos Nitrite, 10-20 WBCs, 20-50 Castillo CBC: 15.2>10.4<510 Lactate: 1.0 LFTs wnl Previous hospitalization 04/12/2018: blood cultures + for pansensitive ecoli with urine cultures growing ecoli, pseudomonas, and enterococcus Additionally, Patient currently endorses having a decubitus ulcer which is being followed by obgyn for possible reconstruction in the future. PAST MEDICAL HISTORY: Spina Bifida diverting colostomy and urostomy congenital hydrocephalus s/p vp treasurer shunt converted to ventriculopleural recurrent nephrolithiasis b/l with PCNs last year HTN Recurrent pressure ulcers with multiple graft placements TOD multiple DVTs, no longer on xarelto due to heavy menses and noncompliance asthma ADHD PAST SURGICAL HISTORY: HOSPITAL CODER shunt at PCNs bilaterally 2018 abdominal grafts, colostomy and urostomy [id number] FAMILY HISTORY: Mother with HF SOCIAL HISTORY: non-smoker, denies EtOH, denies drug use ALLERGIES: Latex allergy (unsure of reaction) morphine (hallucinations) HOME MEDS: Amlodipine Sertraline PCP: Dr. Marsh Obgyn: Dr. Jared Aguilar Pulmonlogist: Dr. Ang Lopez Neurolgoist: Dr. Correa (sp?) (is with [facility]) REVIEW OF SYSTEMS: GENERAL: see hpi SKIN: see hpi HEAD: No trauma, headache, visual changes EYES: No visual changes, blurry vision EARS: No hearing loss, tinnitus, vertigo NOSE: No epistaxis, rhinorrhea, sneezing MOUTH/THROAT/NECK: No sores, bleeding, hoarseness, vocal changes RESPIRATORY: No wheezing, SOB, asthma. +TOD CARDIAC: No tachycardia, dyspnea on exertion, orthopnea, PND GASTROINTESTINAL: see HPI URINARY: see hpi MUSCULOSKELETAL: Denies any joint pain or edema NEUROLOGICAL: No syncope, seizures, changes in sensation or weakness HEMATOLOGY: No easy bruising, bleeding, lymphadenopathy =====FOOD/NUTRITION SERVICES===== Diet NPO 12/14/18 4:24:00 CDT (no %PO Intake information charted) (no tube feeding information in past 48hrs) No I and O Data Available Scheduled Meds (5): 12/14/18 9:00 cefTRIAXone 1 gm IV Daily 12/15/18 9:00 docusate 100 mg PO BID [Last Rescheduled Dt/Tm: 12/15/18 9:00:00 CDT] [Future Dose: 12/15/18 09:00] 12/14/18 4:25 enoxaparin (Lovenox) 40 mg SUB-Q Daily 12/15/18 21:00 senna 17.2 mg PO Bedtime [Last Rescheduled Dt/Tm: 12/15/18 21:00:00 CDT] [Future Dose: 12/15/18 21:00] 12/14/18 9:00 sertraline 100 mg PO Daily Unscheduled Meds: None PRN Meds (4): 12/14/18 4:24 Dextrose 50% in Water IV (Dextrose 50% Syringe) 12.5 gm IVP PRN 12/14/18 4:24 Dextrose 50% in Water IV (Dextrose 50% Syringe) 25 gm IVP PRN 12/14/18 4:24 glucagon 1 mg IM PRN 12/14/18 4:24 melatonin 3 mg PO Bedtime One Time Meds (4): 12/13/18 19:41 (Completed) hydromorphone (Dilaudid) 0.5 mg IVP ONCE 12/13/18 21:56 (Completed) hydromorphone (Dilaudid) 0.5 mg IVP ONCE 12/14/18 2:51 (Completed) hydromorphone 0.5 mg IVP ONCE 12/13/18 21:56 (Completed) ondansetron (Zofran) 4 mg IVP ONCE Continuous Infusions: None VITAL SIGNS: Vitals Tmp(F) Tmp(C) Ttype BP MAP Pulse RR SpO2 FIO2 ETCO2 04/17 04:40 98.8 37.11 oral 119/66 86 115 -- 98 --- --- 12/14 03:30 ---- ---- ---- ----- --- 112 18 98 --- --- 12/14 01:30 98.9 37.17 oral 134/74 98 108 18 100 -- - --- 12/13 23:25 ---- ---- ---- 109/68 84 119 18 98 --- --- 12/13 21:25 99.9 37.72 oral 113/68 84 120 18 98 --- --- 24 Hr Tmax: 100.6F (38.11c) at 12/13 19:11 Vital Signs are the last 5 in the past 48 hours. 24 Hr Tmin: 98.8F (37.11c) at 12/14 04:40 Weights are the last 5 in 60 days, plus initial. Date Wt(kg) Wt(lb) Ht(cm) Ht(in) Method BMI BSA 12/13 (initial) 64.55 142.00 Estimated 27.8 1.65 12/13 152.40 60.00 Stated (no point of care glucose results charted in last 24 hours) Most Recent Scores: 12/14/18 [place] Coma Score 15 12/13/18 [facility] Fall Score 10 (no lines, tubes, drains information documented) (no surgical procedures documented) PHYSICAL EXAMINATION: GENERAL: AAO x 3 , lying in bed in no acute distress. HEENT: Normal cephalic atraumatic, pupils are equal, round and reactive to light, extraocular movements intact, oral pharynx clear NECK: neck supple, no JVD CARDIOVASCULAR: normal S1 and S2, regular rhythm, tachycardic no murmurs, rubs , or gallops LUNGS: Clear to auscultation bilaterally; no crackles, wheezes, rales; with reduced breath sounds ABDOMEN: soft with large abdominal defect in midline (post surgical changes from graft) left sided colostomy and right sided urostomy, positive bowel sounds , right sided flank tenderness with guarding, right sided tenderness EXTREMITIES: unable to move her lower extremities. 5/5 upper extremity strength , extremities without edema SKIN: sacral decubitus ulcer stage 3-4 without purulent discharge NEUROLOGIC: CN II-XII grossly intact, good strength and sensation in upper extremities, significantly decreased sensation and inability to move lower extretmiies IMAGING STUDIES: LABORATORY DATA: 24hr Labs 12/14 0308 WBC 18.0 H RBC 4.37 Hgb 9.3 L Hct 30.4 L MCV 69.6 L MCH 21.3 L MCHC 30.7 L RDW 27.0 H Platelet Clumped MPV xxxxxxx Segs 81.5 H Monocytes 10.4 Lymphocytes 7.2 L Eosinophils 0.5 Basophils 0.4 Neutrophils # 14.7 H Lymphocytes # 1.3 Monocytes # 1.9 H Eosinophils # 0.1 Basophils # 0.1 Plt Morph Clumped Anisocyte 2+ Microcyte 2+ Schistocyte 1-3 per HPF 12/14 0153 Glucose Lvl 92 BUN 13 Creatinine Lvl 0.86 Sodium Lvl 140 Potassium Lvl 4.1 Chloride Lvl 105 CO2 24 AGAP 15.1 Calcium Lvl 9.2 eGFR 98 Lactic Acid Lvl 1.1 WBC 17.6 H RBC 4.58 Hgb 9.8 L Hct 32.0 L MCV 69.9 L MCH 21.5 L MCHC 30.7 L RDW 27.4 H Platelet Clumped MPV ----- Segs 81.9 H Monocytes 9.5 Lymphocytes 8.1 L Eosinophils 0.3 Basophils 0.2 Neutrophils # 14.4 H Lymphocytes # 1.4 Monocytes # 1.7 H Eosinophils # 0.1 Basophils # 0.1 Plt Morph Clumped Anisocyte 2+ Microcyte 2+ CDC HIV 4th GEN Negative ASSESSMENT AND PLAN: In summary, 38 YOF with pmhx of spina bifida s/p vp treasurer shunt, diverity colostomy and urostomy, dvts (no longer on anticoagulation, previously on xarelto), HTN, sleep apnea, pressure ulcers and recurrent ne phrolithiasis s/p pcns last year bilaterally presented from OSH with nephrolithiasis and subsequent hydronephrosis and concern for pyelonephritis admitted to our service for management. Nephrolithiasis: - urology consulted, appreciate recs - patient NPO with possible surgery vs IR R PCN placement in the AM - ceftriaxone 1 gram daily - UA with reflex culture, blood cultures x2 pending Pyelonephritis: - plan as above Spina Bifida - PT/OT consulted HTN: - no record of antihypertensive in the system - will continue to monitor, will need to med rec exact medications she is taking TOD: - CPAP at night Decubitus ulcers: - wound care nurse consult HX of DVTs - currently off xarelto - lovenox ppx Anxiety and depression - continue home sertraline FEN/GI - replace lytes prn. - currently NPO Health maintenance - DVT Prophylaxis: lovenox ppx Patient was seen and discussed with PGY-3 Dr. Lam and Attending Dr. Donnell Dickson MD PGY1 Department of Family and Community Medicine [id number] Attending's progress note. I saw this patient with residents Dr. Rodney and Dr. Lam on 12/14/18. I agreed with assessments and plans. I reviewed labs and studies. This is a 38 yo qudriplegic F with h/o recurrent renal stones and PCN placement , currently with ileostomy and urostomy admitted for right nephrolithiasis/ pyelonephritis/hydronephrosis started on ceftriazone and schedule to get a right PCN. Emory Peña [facility] Attedning. Extracted from:Title: Progress Note 04/20/2018 [facility] Author: Darrion Sesay MD Center Date: 04/19/18 This is a 37 year old woman with history fo Spina Bifida with colostomy status, vetriculpleural shunt draining in right lung space who represented to the hospital due to an infe cted nephrostomy tube after it was placed about 1 month ago for a left renal stone. She has deferveseced and is now being treated for Enteroccocus, Psuemdomonas, and E Coli pyelonephritis as well as e c rell bacteremia with amoxicillin-clavulanic acid and meropenem. 1.Severe Sepsis due to urinary tract infection This is resolving and she defervesced when we changed her to meropenemon04/16. She will need two weeks of IV antibiotics ending on May 01. Of Meropenem 500 mg IV q6h through her midline. This is for h er psuedomonas resistance. She will also require 7 days of amoxicillin- clauvulanic acid pofor another 7 days ending on Apr 24 for her enteroccocus and e coli uti and e coli bacteremia treatment. Home healthwas ready forher today 04/19/2018. However, patient refused to go to Home with Home Health, saying neither she or the person who takes care of her are capable and comfortable administrating IV anti biotics and taking care of PCN. Patient's mom was called she is not able to help with her care either. Social workers met with Mrs. Hyatt and she agreed to go to SNF, however, we have to wait for approval until tomorrow 2017. 2.History of DVT in adulthood She continues to have persitence of her femoral vein deep vein thrombosisdiagnosed in September 2017 that is actualy enlargening on repeat doppler in late January 2018.This is likely due to noncompliance t o her home xarelto.She will at least need to continue xarelto until May, if she is compliant. 3.History of kidney stones She had an admissionfor a left obstructing ureteral stone and recieved a nephrostomy tube by interventional radiologyin early February 2018. She never received home health supplies for her nephrostomy tube and represtnted with aninfection 4.Presence of ventriculopleural shunt I have emphasized to the need to find a pulmonary doctor andto have thoracentesis periodically to drain theventricular fluid that accumulates in her right pleural space.I have given her a number to int erventional pulmonology Dr. De La Garza here at [facility]. 5.Nephrostomy status I also emphasized to her the need to follow-up with doctors for ther left percutaneous nephrostomy tube and change the bag so that she does not get infected again. 6.Pleural effusion The right pleural effusion was transudative based on light's criteria.Pulmonaryperformed athoracentesis this admission 7.Hx of spina bifida 8.Hx of hydrocephalus 9.Colostomy status she has diverting colostomy to prevent scaracl wound infections given her functional quadriplegia due to spina bifida 10.Functional quadriplegia this is due to her spina bifida Patient seen and discussed with attending Dr. Aristeo Norris MD Internal Medicine, PGY1 Xarelto 20mg BID SNF Addendum by Vicente Alberts MD on 04/19/2018 16:15 CDT Attending Attestation I personally interviewed and examined the patient.I reviewed labs and imaging. I agree with Dr. Frederick findings and plan as outlines in todays note as they reflect my input.Patient feels well. Continue Merrem and Augmentin. Poor social supportand difficult family situation, high risk for readmission. will plan for SNF. Extracted from:Title: MICU H&P Author: Ricci Merchant MD Date: 04/12/18 Impression and Plan Problem list Sepsis 2/2 Urinary tract infection Hx. of nephrolithiasis HTN Hx. of DVT paraplegia spina bifida Neuro #Spina bifida #Paraplegia #ADHD - No active concerns at this time. Will consult PT/OT. - Continue home dose sertraline CV - Borderline BP, still tachycardic. Continue IVF therapy for now. - May need to consider TTE. Pulmonary #Left pleural effusion 2/2 Ventriculopleural shunt - No active issues at this time, patient reports breathing status at baseline GI - Continue bowel regimen #UTI #Nephrolithiasis - s/p L PCN on 02/2018, did not follow up. Likely source of sepsis. - Consutl IR in AM. Continue ATB therapy for now. ID #Sepsis from urinary tract infection - Pending cultures, continue Cefepime/Linezolid. Will start with broad spectrum considering sepsis with PCN in place and history of MDR infections, though not in the recent past. - Ordered CT abd/Pelvis without contrast, consult IR in AM. Continue IVF therapy for Now. - Strict I's/O's. De-escalate according to sensitivities. Heme #L IJ DVT - Not complicant with Xarelto, thrombus again seen on 02/2018 doppler. - Will start anticoagulation with Heparin drip. #Anemia/Platelet clumps - Noted acutely anemic on OSH, now s/p 1 pRBC transfusion. No evidence of active blood loss. - Noted platelet clumps, also schistocytes. No clear picture of hemolysis. - F/u CBC Q8HRS, ordered DIC panel, LDH, Haptoglobin. MSK - Consult PT/OT Patient was staffed in AM with MICU attending Dr. Shadi Ferro MD Internal Medicine PGY-3 [facility] Extracted from:Title: Progress Note 03/04/2018 [facility] Author: Randall Lucas MD [place] Date: 03/03/18 1.Nephrolithiasis With left hydronephrosis status postpercutaneous nephrostomytube. Patient will follow with urology as an outpatient to addressthe4 mm UPJ stone 2.UTI (urinary tract infection) Urine culture grew enterococcus. Stop ceftriaxone start amoxicillin. 3.Functional Paraplegia Continue colostomy, urostomy care Orderedwheelchair for the patient. Heparin Anticipate discharge home tomorrow with home health Extracted from:Title: Infection Control Isolation Alert Author: Shell Weeks Date: 03/03/18 ISOLATION ALERT This patient has a history [...] Control for suggested regimens for decolonization of pat ients with MRSA as well as for any questions. We can be reached at . Extracted from:Title: History and Physical Author: Prince Luna Barajas [...] Urology Heparin subc Home once medically cleared Extracted from:Title: [facility] Consult 11/06/2017 [facility] Author: Yamlieth Madison MD PHD Center Date: 11/06/17 BASIC INFORMATION Referring Physician/Service:Elton Gay MD/EM Consulting Physician/Service: Cisco Henriquez DO/Samuel Consultation for: nausea and vomiting HPI: This is a 37-year-old AAF with PMH/PSH of congenital hydrocephalus (s/p VPS) spina bifida (s/p flap reconstruction), sacral decubitus (complicated by septic shock requiring diverting colonostomy an d urostomy, labina reconstruction, abdominal wall STSG), HTN and asthma presents to ED for 1 month history of nausea and vomiting. She started to feel nausea and vomiting (non billous, clear) when she was treated for UTI at [facility] (Gram negative rods, admitted 10/01-10/08/2017). She feels nauseous mostly after meal and has not been eating much but taking 1 bottle of booster/day. She also com plains of epigastric pain. She reports 102F 2 [...] subserosal fibroid in the left lateral wall (/). Pessary is present. Gastrointestinal tract: Stomach: Normal. [...] incidental findings described above are stable. ASSESSMENT and PLAN The patient is a 37 yo F with h/o diverting colonostomy and urostomy, VPS (no longer in peritoneum, in [...] follow-up the patient during hospitalization. [email or web address] [phone] for any further questions Yamileth Madison MD Res-1/PGY-8 [facility] [id number] Surgery Staff Discussed with Dr. Escobar Reviewed above note Agree with findings, assessment and plan Plan of Care Plan of Care Date Source Instructions 10/08/[address] [facility] DI for High Blood Pressure DI for Urinary Tract Infection (UTI) DI for Iron Deficiency Anemia-Adult DI for Vomiting -- Adult Instructions 10/08/[address] [facility] DI for High Blood Pressure DI for Urinary Tract Infection (UTI) DI for Iron Deficiency Anemia-Adult DI for Vomiting -- Adult Social History Social History Date Source Social History TypeResponse 01/06/2019 [facility] Substance Abuse Use: None. Sexual Sexually active: No. Exercise Exercise type: lifting herself into and out of bed and tranferring to wheelchair. Employment/School Status: disability . Alcohol Never Smoking Status Never smoker; Ready to change: No; Concerns about tobacco use in household: No ; Exposure to Tobacco Smoke None; Cigarette Smoking Last 365 Days No; Reg Smoking Cessation Counseling No entered on: 01/31/19 Social History TypeResponse 12/14/2018 KRYSTIN Mireles Substance Abuse Use: None. Alcohol Never Smoking Status Never smoker; Ready to change: No; Concerns about tobacco use in household: No ; Exposure to Tobacco Smoke None; Cigarette Smoking Last 365 Days No; Reg Smoking Cessation Counseling No entered on: 12/13/18 Social History TypeResponse 12/14/2018 [id number] Substance Abuse Use: None. Alcohol Never Smoking Status Never smoker; Ready to change: No; Concerns about tobacco use in household: No ; Exposure to Tobacco Smoke None; Cigarette Smoking Last 365 Days No; Reg Smoking Cessation Counseling No entered on: 12/13/18 Query Response Date Recorded Comment 10/08/2017 GIFTY Erazo Alcohol Use? No September 30, 2017 8:10am CD- Drugs? No September 30, 2017 8:10am Query Response Start Date Stop Date Smoking Status Never smoker Family History Value Date Source Query Response Instance Date Recorded Comment 10/08/2017 GIFTY Erazo Nurses notes CHF, PANCREATIC CANCER Mother September 30, 2017 8:10am Nurses notes [place] Father September 30, 2017 8:10am Medical History Diabetes Sister September 30, 2017 8:10am Medical History Heart disease Hypertension Cancer Mother September 30, 2017 8:10am Medical History Heart disease Hypertension Other (see notes) Father September 30, 2017 8:10am Nurses notes [place] March 11, 2015 7:12am Medical History Diabetes June 25, 2014 1:00pm Advance Directives Order Name Results Value Date Source Advance Directives Advance Directives Advance Directive Response Recorded Date/Time 10/08/2017 GIFTY Madrigal - Does Patient Have Living Will Margaux No October 08, 2017 6:00am Durable Power of Food Expeditor for Health Care Yes September 30, 2017 8:10am Would you like additional information No September 30, 2017 8:00am Functional Status No Data Provided for This Section
--- OUTSIDE RECORDS SUMMARY | 2019-05-01 17:06 | XMS REPORT | Summary of Care ---
:1980 Author Organization [facility] Address [address] [place] [address]- Encounter HQ Hasmukh_shyam(FIN) [id number] Date(s): 01/30/19 - 01/31/19 [facility] [address] [place] [address] Professional Services provided by The [facility] [place] [address]- Encounter Diagnosis Displacement of ureteral stent (Discharge Diagnosis) - 01/31/19 Discharge Disposition: Home or Self Care Attending Physician: Jordi Flanagan MD Admitting Physician: Javid Whiteside MD Referring Physician: Burton Rodrigez MD Vital Signs Most recent to oldest [Reference 1 2 3 Range]: Temperature Oral [96.4-99.1 DegF] 98.4 DegF 98.4 DegF 98.5 DegF (01/31/19 5:25 AM) (01/31/19 4:45 AM) (01/30/19 9:04 PM) Blood Pressure [90-140/60-90 mmHg] 123/83 mmHg 128/79 mmHg (01/31/19 6:27 AM) (01/31/19 5:25 AM) Systolic Blood Pressure [90-140 108 mmHg mmHg] (01/31/19 4:45 AM) Diastolic Blood Pressure [60-90 72 mmHg mmHg] (01/31/19 4:45 AM) Respiratory Rate [14-20 BRMIN] 16 BRMIN 16 BRMIN 16 BRMIN (01/31/19 6:27 AM) (01/31/19 4:45 AM) (01/31/19 3:25 AM) Peripheral Pulse Rate [60-100 bpm] 64 bpm (01/30/19 9:04 PM) Problem List Condition Effective Dates Status Health Status Informant Clotting disorder(Confirmed) Resolved Colostomy(Confirmed) Active 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 Hypertension(Confirmed) Resolved Depression(Confirmed) Resolved MRSA(Confirmed)1, 2 04/13/18 Active Nephrostomy(Confirmed) Active Pain(Confirmed) 09/18/10 Active Acute ; Pleural effusion on left(Confirmed) Resolved Pleural effusion(Confirmed) Active Pneumothorax(Confirmed) Resolved Spina bifida(Confirmed) Resolved Sepsis(Confirmed) Resolved 1Nasal swab, Nares Allergies, Adverse Reactions, Alerts Substance Reaction Severity Status vancomycin Active morphine Active Latex Active Food Chocolate Active Rubber Active Medications acetaminophen 1,000 mg, Route: PO, ONCE, Dosing Weight 63.273, kg, Start date: 01/31/19 0:07: 00 CDT, Stop date: 01/31/19 0:07:00 CDT Start Date: 01/31/19 Stop Date: 01/31/19 Status: CompletedDilaudid 0.5 mg, 0.25 mL, Route: IVP, Drug form: INJ, ONCE, Dosing Weight 63.273, kg, Priority: STAT, Start date: 01/31/19 3:04:00 CDT, Stop date: 01/31/19 3:04:00 CDT Notes: Same as Dilaudid Start Date: 01/31/19 Stop Date: 01/31/19 Status: Completedhydromorphone 0.5 mg, Route: IVP, ONCE, Dosing Weight 63.273, kg, Priority: STAT, Start date: 01/31/19 0:37:00 CDT, Stop date: 01/31/19 0:37:00 CDT Start Date: 01/31/19 Stop Date: 01/31/19 Status: CompletedketOROLAC 15 mg/mL injectable solution 15 mg, Route: IVP, Drug form: INJ, ONCE, Dosing Weight 63.273, kg, Priority: STAT, Start date: 01/31/19 0:06:00 CDT, Stop date: 01/31/19 0:06:00 CDT Start Date: 01/31/19 Stop Date: 01/31/19 Status: Completed Results Most recent to oldest [Reference Range]: 1 Neutrophils # [1.5-8.1 K/CMM] 4.6 K/CMM (01/30/19 11:58 PM) Lymphocytes # [1.0-5.5 K/CMM] 3.0 K/CMM (01/30/19 11:58 PM) Monocytes # [0.0-0.8 K/CMM] 1.0 K/CMM *HI* (01/30/19 11:58 PM) Eosinophils # [0.0-0.5 K/CMM] 0.3 K/CMM (01/30/19 11:58 PM) Plt Morph [Normal] Clumped (01/30/19 11:58 PM) eGFR 139 mL/min/1.73m2 1 *NA* (01/30/19 11:58 PM) AGAP [10.0-20.0 mEq/L] 12.7 mEq/L (01/30/19 11:58 PM) Anisocyte [None Seen] 1+ *ABN* (01/30/19 11:58 PM) Basophils [0.0-1.0 %] 0.4 % (01/30/19 11:58 PM) BUN [7-22 mg/dL] 10 mg/dL (01/30/19 11:58 PM) Calcium Lvl [8.5-10.5 mg/dL] 8.9 mg/dL (01/30/19 11:58 PM) Chloride Lvl [95-109 mEq/L] 107 mEq/L (01/30/19 11:58 PM) CO2 [24-32 mEq/L] 26 mEq/L (01/30/19 11:58 PM) Creatinine Lvl [0.50-1.40 mg/dL] 0.52 mg/dL (01/30/19 11:58 PM) Eosinophils [0.0-4.0 %] 3.4 % (01/30/19 11:58 PM) Glucose Lvl [70-99 mg/dL] 84 mg/dL (01/30/19 11:58 PM) Hct [36.0-48.0 %] 31.7 % *LOW* (01/30/19 11:58 PM) Hgb [12.0-16.0 g/dL] 10.1 g/dL *LOW* (01/30/19 11:58 PM) Hypochrom [None Seen] 1+ (01/30/19 11:58 PM) Potassium Lvl [3.5-5.1 mEq/L] 3.7 mEq/L (01/30/19 11:58 PM) Lymphocytes [20.0-40.0 %] 33.5 % (01/30/19 11:58 PM) MCH [27.0-31.0 pg] 23.4 pg *LOW* (01/30/19 11:58 PM) MCHC [32.0-36.0 g/dL] 31.9 g/dL *LOW* (01/30/19 11:58 PM) MCV [80.0-98.0 fL] 73.4 fL *LOW* (01/30/19 11:58 PM) Microcyte [None Seen] 2+ *ABN* (01/30/19 11:58 PM) Monocytes [2.0-12.0 %] 11.4 % (01/30/19 11:58 PM) MPV [7.4-10.4] xxxxxxx (01/30/19 11:58 PM) Sodium Lvl [135-145 mEq/L] 142 mEq/L (01/30/19 11:58 PM) Platelet [133-450] Clumped 2 *NA* (01/30/19 11:58 PM) Polychrom Few *NA* (01/30/19 11:58 PM) Segs [45.0-75.0 %] 51.3 % (01/30/19 11:58 PM) RBC [4.20-5.40 M/CMM] 4.32 M/CMM (01/30/19 11:58 PM) RDW [11.5-14.5 %] 23.4 % *HI* (01/30/19 11:58 PM) UA Amorph Viky [None Seen /HPF] Few /HPF *ABN* (01/31/19 1:14 AM) UA Bacteria [None Seen /HPF] Moderate /HPF (01/31/19 1:14 AM) UA Bili [Negative] Negative *NA* (01/31/19 1:14 AM) UA Blood [Negative] Small *ABN* (01/31/19 1:14 AM) UA CaOx Viky [None Seen /HPF] Moderate /HPF *ABN* (01/31/19 1:14 AM) UA Color [Yellow] Yellow *NA* (01/31/19 1:14 AM) UA Glucose [Negative] Negative (01/31/19 1:14 AM) UA Ketones [Negative] Negative *NA* (01/31/19 1:14 AM) UA Leuk Est [Negative] Small *ABN* (01/31/19 1:14 AM) UA Nitrite [Negative] Negative (01/31/19 1:14 AM) UA pH [5.0-8.0] 6.5 (01/31/19 1:14 AM) UA Protein [Negative] Trace *ABN* (01/31/19 1:14 AM) UA RBC [0-2] None Seen (01/31/19 1:14 AM) UA Spec Grav [<=1.030] 1.020 (01/31/19 1:14 AM) UA Sq Epi [Few /LPF] Few /LPF (01/31/19 1:14 AM) UA Turbidity [Clear] Slight Cloudy (01/31/19 1:14 AM) UA Urobilinogen [0.1-1.0 EU/dL] 0.2 EU/dL (01/31/19 1:14 AM) UA WBC [None Seen /HPF] 11-20 /HPF *ABN* (01/31/19 1:14 AM) UA [place] Yeast Rare *NA* (01/31/19 1:14 AM) WBC [3.7-10.4 K/CMM] 9.0 K/CMM (01/30/19 11:58 PM) Platelet Count Blue [place] [133-450 K/CMM] 515 K/CMM *HI* (01/31/19 1:04 AM) 1Result Comment: The eGFR is calculated [...] be multiplied by the estimated BMI.2Result Comment: Platelets clumped in EDTA, unable to estimate, suggest recollection in a blue top tube with an order for "Blue Top Platelet Count" notified Nelly Skaggs for recollect of blue top.Microbiology Reports TEST:Culture: Urine STATUS:Order in Progress BODY SITE: SOURCE:Urine, Clean Catch COLLECTED DATE/TIME:01/31/19 1:54 AMPRELIMINARY REPORT10,000 - 50,000 CFU/ mL Pseudomonas Species Identification And Sensitivity To Follow Immunizations Given and Recorded Vaccine Date Status Refusal Reason pneumococcal 23-valent vaccine 08/08/08 Given pneumococcal 23-valent vaccine 04/05/08 Given Procedures Procedure Date Related Diagnosis Body Site Status Colostomy Completed Construction of urostomy Completed Operation Completed Operation Completed Operation Completed Reopening of abdomen and re-exploration of Completed intra-abdominal operation site and surgical arrest of postoperative bleeding Social History Social History Type Response Substance Abuse Use: None. Sexual Sexually active: No. Exercise Exercise type: lifting herself into and out of bed and tranferring to wheelchair. Employment/School Status: disability . Alcohol Never Smoking Status Never smoker; Ready to change: No; Concerns about tobacco use in household: No; Exposure to Tobacco Smoke None; Cigarette Smoking Last 365 Days No; Reg Smoking Cessation Counseling No entered on: 01/31/19 Assessment and Plan No data available for this section
--- OUTSIDE RECORDS SUMMARY | 2019-05-01 17:06 | XMS REPORT | Summary of Care ---
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 Allergies, Adverse Reactions, Alerts Substance Reaction Severity Status vancomycin Active morphine Active Latex Active Food Chocolate Active Rubber Active Medications No data available for this section Results No data available for this section Immunizations Given and Recorded Vaccine Date Status [...]
--- OUTSIDE RECORDS SUMMARY | 2019-05-01 17:06 | XMS REPORT | Summary of Care ---
:1980 Author Organization [facility] Address [address] [place] [id number]- Encounter HQ Hasmukh_shyam(CALOS) [id number] Date(s): 01/22/19 - 01/23/[address] Professional Services provided by The [facility] [place] [address]- Discharge Disposition: Home or Self Care Attending Physician: James Palacios MD Admitting Physician: James Palacios MD Referring Physician: Carl Watson MD Vital Signs Most recent to oldest 1 2 3 [Reference Range]: Height 152.4 cm 152.4 cm (01/22/19 9:03 AM) (01/22/19 2:20 AM) Temperature Oral [96.4-99.1 98.5 DegF 98.0 DegF 98.1 DegF DegF] (01/23/19 11:18 AM) (01/23/19 7:47 AM) (01/23/19 5:11 AM) Blood Pressure [90-140/60-90 115/77 mmHg 111/77 mmHg 106/72 mmHg mmHg] (01/23/19 11:18 AM) (01/23/19 7:47 AM) (01/23/19 5:11 AM) Respiratory Rate [14-20 BRMIN] 19 BRMIN 18 BRMIN 18 BRMIN (01/23/19 11:18 AM) (01/23/19 7:47 AM) (01/23/19 5:11 AM) Peripheral Pulse Rate [60-100 100 bpm 85 bpm 90 bpm bpm] (01/23/19 11:18 AM) (01/23/19 7:47 AM) (01/23/19 5:11 AM) Weight 63.273 kg 64.545 kg (01/22/19 9:03 AM) (01/22/19 2:20 AM) Body Mass Index 27.24 m2 27.79 m2 (01/22/19 9:03 AM) (01/22/19 2:20 AM) Problem List Condition Effective Dates Status [...] Food Chocolate Active Rubber Active Medications acetaminophen 650 mg, 2 tab, Route: PO, Drug form: TAB, Q4H, Dosing Weight 64.545, kg, PRN Pain 1-3/Temp > 100.4 F, Start date: 01/22/19 5:48:00 CDT, Duration: 30 day, Stop date: 02/21/19 5:47:00 CDT Notes: Do not exceed 4 gm/day. (Same as: Tylenol) Start Date: 01/22/19 Stop Date: 01/23/19 Status: Discontinuedalbuterol 2.49 mg, 3 mL, Route: NEB, Drug form: SOLN, RQID, Start date: 01/22/19 11:00:00 CDT, Duration: 30 day, Stop date: 02/21/19 7:00:00 CDT Notes: SEE RT DOCUMENTATION (Same as: Proventil) Start Date: 01/22/19 Stop Date: 01/23/19 Status: DiscontinuedamLODIPine 5 mg, 1 tab, Route: PO, Drug form: TAB, Daily, Dosing Weight 64.545, kg, Start date: 01/22/19 9:00:00 CDT, Duration: 30 day, Stop date: 02/20/19 9:00:00 CDT Notes: (Same as: Norvasc) Start Date: 01/22/19 Stop Date: 01/23/19 Status: Discontinuedamoxicillin-clavulanate 875 mg-125 mg oral tablet TK 1 T PO Q 12 H Start Date: 01/22/19 Status: Orderedamoxicillin-clavulanate 875 mg-125 mg oral tablet 1 tab, Route: PO, Drug Form: TAB, Dosing Weight 64.545, kg, [id number], Start date : 01/22/19 6:00:00 CDT, Duration: 30 day, Stop date: 02/20/19 18:00:00 CDT Notes: With food.(Same as: Augmentin 875) Start Date: 01/22/19 Stop Date: 01/23/19 Status: DiscontinuedBenadryl 25 mg, 1 cap, Route: PO, Drug form: CAP, BID, Dosing Weight 64.545, kg, PRN as needed for allergy symptoms, Start date: 01/22/19 5:50:00 CDT, Duration: 30 day , Stop date: 02/21/19 5:49:00 CDT Notes: (Same as: Benadryl) Start Date: 01/22/19 Stop Date: 01/23/19 Status: Discontinuedbisacodyl 10 mg, 1 supp, Route: OH, Drug form: SUPP, Daily, Dosing Weight 64.545, kg, PRN Constipation, Start date: 01/22/19 5:48:00 CDT, Duration: 30 day, Stop date: 5:47:00 CDT Notes: (Same As: Dulcolax, Bisco-Lax) Start Date: 01/22/19 Stop Date: 01/23/19 Status: DiscontinuedBreo Ellipta 200 mcg-25 mcg/inh inhalation powder 1 puff, Route: INHALATION, Drug Form: PWDR, Dosing Weight 64.545, kg, Daily, Start date: 01/22/19 9:00:00 CDT, Duration: 30 day, Stop date: 02/20/19 9:00:00 CDT Start Date: 01/22/19 Stop Date: 01/22/19 Status: DeletedDextrose 50% Syringe 25 gm, 50 mL, Route: IVP, Drug Form: INJ, Dosing Weight 64.545, kg, PRN, PRN Blood Glucose Results, Start date: 01/22/19 5:48:00 CDT, Duration: 30 day, Stop date: 02/21/19 5:47:00 CDT Start Date: 01/22/19 Stop Date: 01/23/19 Status: DiscontinuedDextrose 50% Syringe 12.5 gm, 25 mL, Route: IVP, Drug Form: INJ, Dosing Weight 64.545, kg, PRN, PRN Blood Glucose Results, Start date: 01/22/19 5:48:00 CDT, Duration: 30 day, Stop date: 02/21/19 5:47:00 CDT Start Date: 01/22/19 Stop Date: 01/23/19 Status: Discontinueddocusate 100 mg, 1 cap, Route: PO, Drug form: CAP, BID, Dosing Weight 64.545, kg, Start date: 01/22/19 9:00:00 CDT, Duration: 30 day, Stop date: 02/20/19 17:00:00 CDT Notes: (Same as: Colace) (Do Not Crush) Start Date: 01/22/19 Stop Date: 01/23/19 Status: DiscontinuedFeroSul 325 mg oral tablet TK 1 T PO D Start Date: 01/22/19 Status: Orderedferrous sulfate 325 mg, 1 tab, Route: PO, Drug form: ECTAB, Daily, Dosing Weight 64.545, kg, Start date: 01/22/19 9:00:00 CDT, Duration: 30 day, Stop date: 02/20/19 9:00:00 CDT Notes: Give with food. "Do Not Crush" Start Date: 01/22/19 Stop Date: 01/23/19 Status: Discontinuedfluconazole 100 mg, 1 tab, Route: PO, Drug form: TAB, Daily, Dosing Weight 64.545, kg, Start date: 01/22/19 9:00:00 CDT, Duration: 30 day, Stop date: 02/20/19 9:00:00 CDT, ABX Indication: Open Wound Prophylaxis Notes: (Same as: Diflucan) Start Date: 01/22/19 Stop Date: 01/23/19 Status: Discontinuedfluconazole 100 mg oral tablet TK 1 T PO Q 24 HOURS Start Date: 01/22/19 Status: Orderedglucagon 1 mg, Route: IM, Drug form: PDR/INJ, PRN, Dosing Weight 64.545, kg, PRN Blood Glucose Results, Startdate: 01/22/19 5:48:00 CDT, Duration: 30 day, Stop date: 02/21/19 5:47:00 CDT Start Date: 01/22/19 Stop Date: 01/23/19 Status: Discontinuedhydromorphone 1 mg, 0.5 mL, Route: IVP, Drug form: INJ, ONCE, Dosing Weight 64.545, kg, Priority: STAT, Start date: 01/22/19 2:48:00 CDT, Stop date: 01/22/19 2:48:00 CDT Notes: Same as Dilaudid Start Date: 01/22/19 Stop Date: 01/22/19 Status: CompletedketOROLAC 15 mg/mL injectable solution 15 mg, 1 mL, Route: IV, Drug form: INJ, Q6H, Dosing Weight 63.273, kg, Start date: 01/23/19 12:00:00CDT, Duration: 4 day, Stop date: 01/27/19 6:00:00 CDT Notes: (Same as:Toradol) IV bolus must be given >15 seconds. Give IM administration slowly and deeply into the muscle. Not for use > 4 days. Start Date: 01/23/19 Stop Date: 01/23/19 Status: Discontinuedmelatonin 3 mg, 1 tab, Route: PO, Drug form: TAB, Bedtime, Dosing Weight 63.273, kg, PRN Sleep, Start date: 01/22/19 19:39:00 CDT, Duration: 30 day, Stop date: 02/21/19 19:38:00 CDT Notes: (Same as: Melatonin) Start Date: 01/22/19 Stop Date: 01/23/19 Status: Discontinuedminocycline 100 mg, 1 cap, Route: PO, Drug form: CAP, Q12H, Dosing Weight 64.545, kg, Start date: 01/22/19 9:00:00 CDT, Duration: 30 day, Stop date: 02/20/19 21:00:00 CDT Notes: (Same as:Minocin) No milk/antacids/iron. Start Date: 01/22/19 Stop Date: 01/23/19 Status: Discontinuedminocycline 100 mg oral capsule 100 mg=1 cap, PO, Q12H, # 20 cap, 0 Refill(s) Start Date: 01/22/19 Stop Date: 02/01/19 Status: OrderedMiraLax 17 gm, 1 pkt, Route: PO, Drug form: PWDR, BID, Dosing Weight 64.545, kg, Start date: 01/22/19 9:00:00 CDT, Duration: 30 day, Stop date: 02/20/19 17:00:00 CDT Notes: Dissolve in 8 oz of water or juice.(Same as: Miralax) Start Date: 01/22/19 Stop Date: 01/23/19 Status: Discontinuedondansetron 4 mg, 2 mL, Route: IVP, Drug form: INJ, ONCE, Dosing Weight 64.545, kg, Priority : STAT, Start date: 01/22/19 2:48:00 CDT, Stop date: 01/22/19 2:48:00 CDT Notes: (Same as: Zofran) MEDICATION WASTE Product Size: 4 mgProduct Wasted: 0 mg Start Date: 01/22/19 Stop Date: 01/22/19 Status: Completedondansetron 4 mg, 2 mL, Route: IVP, Drug form: INJ, Q8H, Dosing Weight 64.545, kg, PRN Nausea & Vomiting, Start date: 01/22/19 5:48:00 CDT, Duration: 30 day, Stop date: 02/21/19 5:47:00 CDT Notes: (Same as: Zofran) MEDICATION WASTE Product Size: 4 mgProduct Wasted: ___ mg Start Date: 01/22/19 Stop Date: 01/23/19 Status: DiscontinuedPulmicort Respules 0.25 mg, 2 mL, Route: NEB, Drug form: SUSP, RBID, Start date: 01/22/19 9:38:00 CDT, Duration: 30 day, Stop date: 02/21/19 8:00:00 CDT Notes: (Same As: Pulmicort respule). Start Date: 01/22/19 Stop Date: 01/23/19 Status: Discontinuedsenna 17.2 mg, 2 tab, Route: PO, Drug Form: TAB, Dosing Weight 64.545, kg, Bedtime, Start date: 01/22/19 21:00:00 CDT, Duration: 30 day, Stop date: 02/20/19 21:00: 00 CDT Notes: (Same as: Senokot) Start Date: 01/22/19 Stop Date: 01/23/19 Status: Discontinuedsertraline 100 mg, 1 tab, Route: PO, Drug form: TAB, BID, Dosing Weight 64.545, kg, Start date: 01/22/19 9:00:00 CDT, Duration: 30 day, Stop date: 02/20/19 17:00:00 CDT Notes: (Same as: Zoloft) Start Date: 01/22/19 Stop Date: 01/23/19 Status: Discontinuedtramadol 50 mg, 1 tab, Route: PO, Drug form: TAB, Q6H, Dosing Weight 64.545, kg, PRN Pain Score 1-3, Start date: 01/22/19 6:42:00 CDT, Duration: 30 day, Stop date: 02/21/19 6:41:00 CDT Notes: Not to exceed 400mg/day. (Same As: Ultram) Start Date: 01/22/19 Stop Date: 01/23/19 Status: Discontinuedzolpidem 5 mg oral tablet TK 1 T PO QHS Start Date: 01/22/19 Status: Ordered Results Most recent to oldest [Reference Range]: 1 Neutrophils # [1.5-8.1 K/CMM] 6.2 K/CMM (01/22/19 3:08 AM) Lymphocytes # [1.0-5.5 K/CMM] 2.9 K/CMM (01/22/19 3:08 AM) Monocytes # [0.0-0.8 K/CMM] 0.8 K/CMM (01/22/19 3:08 AM) Eosinophils # [0.0-0.5 K/CMM] 0.6 K/CMM *HI* (01/22/19 3:08 AM) Basophils # [0.0-0.2 K/CMM] 0.1 K/CMM (01/22/19 3:08 AM) Plt Morph [Normal] Clumped (01/22/19 3:08 AM) eGFR 128 mL/min/1.73m2 1 *NA* (01/22/19 3:08 AM) ABO/Rh A NEG *Unknown* (01/22/19 3:08 AM) Antibody Scrn Negative (01/22/19 3:08 AM) AGAP [10.0-20.0 mEq/L] 12.5 mEq/L (01/22/19 3:08 AM) Anisocyte [None Seen] 1+ *ABN* (01/22/19 3:08 AM) Basophils [0.0-1.0 %] 0.5 % (01/22/19 3:08 AM) BUN [7-22 mg/dL] 11 mg/dL (01/22/19 3:08 AM) Calcium Lvl [8.5-10.5 mg/dL] 8.9 mg/dL (01/22/19 3:08 AM) Chloride Lvl [95-109 mEq/L] 103 mEq/L (01/22/19 3:08 AM) CO2 [24-32 mEq/L] 26 mEq/L (01/22/19 3:08 AM) Creatinine Lvl [0.50-1.40 mg/dL] 0.67 mg/dL (01/22/19 3:08 AM) Eosinophils [0.0-4.0 %] 5.7 % *HI* (01/22/19 3:08 AM) Glucose Lvl [70-99 mg/dL] 89 mg/dL (01/22/19 3:08 AM) Hct [36.0-48.0 %] 32.3 % *LOW* (01/22/19 3:08 AM) Hgb [12.0-16.0 g/dL] 10.2 g/dL *LOW* (01/22/19 3:08 AM) INR [0.85-1.17] 1.03 (01/22/19 3:34 AM) Potassium Lvl [3.5-5.1 mEq/L] 3.5 mEq/L (01/22/19 3:08 AM) Lactic Acid Lvl [0.5-2.2 mMol/L] 0.8 mMol/L (01/22/19 3:34 AM) Lymphocytes [20.0-40.0 %] 27.0 % (01/22/19 3:08 AM) MCH [27.0-31.0 pg] 23.2 pg *LOW* (01/22/19 3:08 AM) MCHC [32.0-36.0 g/dL] 31.5 g/dL *LOW* (01/22/19 3:08 AM) MCV [80.0-98.0 fL] 73.7 fL *LOW* (01/22/19 3:08 AM) Microcyte [None Seen] 2+ *ABN* (01/22/19 3:08 AM) Monocytes [2.0-12.0 %] 7.9 % (01/22/19 3:08 AM) MPV [7.4-10.4] ----- (01/22/19 3:08 AM) Sodium Lvl [135-145 mEq/L] 138 mEq/L (01/22/19 3:08 AM) Platelet [133-450] Clumped *NA* (01/22/19 3:08 AM) Segs [45.0-75.0 %] 58.9 % (01/22/19 3:08 AM) PT [12.0-14.7 seconds] 13.3 seconds (01/22/19 3:34 AM) PTT [22.9-35.8 seconds] 35.2 seconds (01/22/19 3:34 AM) RBC [4.20-5.40 M/CMM] 4.38 M/CMM (01/22/19 3:08 AM) RDW [11.5-14.5 %] 23.9 % *HI* (01/22/19 3:08 AM) UA Bacteria [None Seen /HPF] Few /HPF (01/22/19 3:34 AM) UA Bili [Negative] Negative *NA* (01/22/19 3:34 AM) UA Blood [Negative] Small *ABN* (01/22/19 3:34 AM) UA CaOx Viky [None Seen /HPF] Occasional /HPF (01/22/19 3:34 AM) UA Color [Yellow] Yellow *NA* (01/22/19 3:34 AM) UA Glucose [Negative] Negative (01/22/19 3:34 AM) UA Ketones [Negative] Negative *NA* (01/22/19 3:34 AM) UA Leuk Est [Negative] Small *ABN* (01/22/19 3:34 AM) UA Mucus [None Seen /LPF] Few /LPF (01/22/19 3:34 AM) UA Nitrite [Negative] Negative (01/22/19 3:34 AM) UA pH [5.0-8.0] 6.5 (01/22/19 3:34 AM) U Preg [Negative] Negative (01/22/19 3:38 AM) UA Protein [Negative mg/dL] 30 mg/dL *ABN* (01/22/19 3:34 AM) UA RBC [0-2 /HPF] 3-5 /HPF *ABN* (01/22/19 3:34 AM) UA Spec Grav [<=1.030] 1.020 (01/22/19 3:34 AM) UA Sq Epi [Few /LPF] Rare /LPF (01/22/19 3:34 AM) UA Turbidity [Clear] Slight Cloudy (01/22/19 3:34 AM) UA Urobilinogen [0.1-1.0 EU/dL] 0.2 EU/dL (01/22/19 3:34 AM) UA WBC [None Seen /HPF] 3-5 /HPF (01/22/19 3:34 AM) WBC [3.7-10.4 K/CMM] 10.6 K/CMM *HI* (01/22/19 3:08 AM) 1Result Comment: The eGFR is calculated [...] should be multiplied by the estimated BMI. Immunizations Given and Recorded Vaccine Date Status [...] . Alcohol Never Smoking Status Never smoker; Type: Cigarettes; Exposure to Tobacco Smoke None ; Cigarette Smoking Last 365 Days No; Reg Smoking Cessation Counseling No entered on: 01/22/19 Assessment and Plan Extracted from: Title: [facility] PN Author: Leslye Castro MD Date: 01/23/19 Impression and Plan Patient is [...] weeks after discharge. please have her call [phone] to make an appointment - urology will sign off, please page with any questions Extracted from: Title: Infection Control Isolation Alert Author: Ana M [...] Pulmonary or Laryngeal Contact Infection Control at [phone] (on-call line) or [phone] (on- call pager ) If the patient [...] Please contact the Infection Control Department at [phone] with any questions regarding isolation. Extracted from: Title: History and Physical Author: Vicente Alberts MD Date: 01/22/19 38-year-old female withrightobstructivenephrolithiasis presented for dislodged nephrostomy tube. 1.Nephrostomy dislodgement(Z93.6) Urology consulted for PCN replacement. keep NPO Ordered: tramadol, 50 mg, Route: PO, Drug form: TAB, Q6H, Dosing Weight 64.545, kg, PRN Pain Score 1-3, Start date: 01/22/19 6:42:00 CDT, Duration: 30 day, Stop date: 02/21/19 6:41:00 CDT 2.Spina bifida(Q05.9) s/p [facility] [employer] shunt, c/b paraplegia. no active issue. Ordered: [...]
--- OUTSIDE RECORDS SUMMARY | 2019-05-01 17:07 | XMS REPORT | Summary of Care ---
:1980 Author Organization [facility] Address [address] [place] [id number]- Encounter HQ Hasmukh_shyam(FIN) [id number] Date(s): 01/12/19 - 01/15/[address] Professional Services provided by [facility] [place] [address]- Discharge Disposition: Home or Self Care Attending Physician: Madeline Aleman MD Referring Physician: Jared Aguilar MD Vital Signs Most recent to oldest 1 2 3 [Reference Range]: Height 152.4 cm (01/05/19 12:00 PM) Temperature Oral [96.4-99.1 98.5 DegF 98 DegF 98.5 DegF DegF] (01/15/19 4:38 PM) (01/15/19 1:01 PM) (01/15/19 8:05 AM) Blood Pressure [90-140/60-90 114/79 mmHg 116/81 mmHg 112/79 mmHg mmHg] (01/15/19 4:38 PM) (01/15/19 1:01 PM) (01/15/19 8:05 AM) Respiratory Rate [14-20 BRMIN] 18 BRMIN 18 BRMIN 18 BRMIN (01/15/19 4:38 PM) (01/15/19 1:01 PM) (01/15/19 8:05 AM) Peripheral Pulse Rate [60-100 87 bpm 88 bpm 91 bpm bpm] (01/15/19 4:38 PM) (01/15/19 1:01 PM) (01/15/19 8:05 AM) Weight 64.545 kg (01/05/19 12:00 PM) Body Mass Index 27.79 m2 (01/05/19 12:00 PM) Problem List Condition Effective Dates Status [...] 2 tab, Route: PO, Drug form: TAB, Q6H, Dosing Weight 64.545, kg, Start date: 01/12/19 18:00:00 CDT, Duration: 30 day, Stop date: 02/11/19 12:00:00 CDT Notes: Do not exceed 4 gm/day. (Same as: Tylenol) Start Date: 01/12/19 Stop Date: 01/15/19 Status: Discontinuedacetaminophen (ANES) Route: IV, Drug form: INJ, ONCE, Stop date: 01/12/19 13:20:00 CDT Start Date: 01/12/19 Stop Date: 01/12/19 Status: Completedalbuterol 2.49 mg, 3 mL, Route: NEB, Drug form: SOLN, RQID, PRN Wheezing, Start date: 11:03:00 CDT, Duration: 30 day, Stop date: 02/13/19 11:02:00 CDT Notes: SEE RT DOCUMENTATION (Same as: Proventil) Start Date: 01/14/19 Stop Date: 01/15/19 Status: Discontinuedalbuterol 90 mcg/inh inhalation aerosol 2 puff, Route: INHALATION, Dosing Weight 64.545, kg, QID, PRN Wheezing, Start date: 01/14/19 10:55:00 CDT, Duration: 30 day, Stop date: 02/13/19 10:54:00 CDT Start Date: 01/14/19 Stop Date: 01/14/19 Status: Canceledalfentanil (ANES) + Sodium Chloride 0.9% IV (ANES) 100 mL Route: IV, Drug form: INJ, ONCE, Stop date: 01/12/19 11:18:00 CDT Start Date: 01/12/19 Stop Date: 01/12/19 Status: CompletedamLODIPine 5 mg, 1 tab, Route: PO, Drug form: TAB, Daily, Dosing Weight 64.545, kg, Start date: 01/15/19 9:00:00 CDT, Duration: 30 day, Stop date: 02/13/19 9:00:00 CDT Notes: (Same as: Mariah) Start Date: 01/15/19 Stop Date: 01/15/19 Status: Discontinuedamoxicillin 0 Refill(s) Start Date: 01/06/19 Stop Date: 01/06/19 Status: Deletedamoxicillin 500 mg oral tablet 500 mg=1 tab, PO, BID, 0 Refill(s) Start Date: 01/06/19 Stop Date: 01/15/19 Status: Discontinuedamoxicillin-clavulanate 1 tab, Route: PO, Drug form: TAB, [id number], Dosing Weight 64.545, kg, Start date : 01/13/19 9:00:00 CDT, Duration: 30 day, Stop date: 02/11/19 21:00:00 CDT, Pediatric Dosing Notes: With food.(Same as: Augmentin 875) Start Date: 01/13/19 Stop Date: 01/15/19 Status: Discontinuedamoxicillin-clavulanate 875 mg-125 mg oral tablet 1 tab, PO, [id number], Pediatric Dosing, X 10 day, # 20 tab, 0 Refill(s) Start Date: 01/15/19 Stop Date: 01/25/19 Status: Orderedampicillin 1 gm, Route: IVPB, Drug form: PDR/INJ, [id number], Dosing Weight 64.545, kg, Start date: 01/12/19 15:00:00 CDT, Duration: 1 doses or times, Stop date: 01/12/19 15: 00:00 CDT Notes: (Same as: Vera) MEDICATION WASTE Product Size: 1000 mgProduct Wasted: ___ mg Start Date: 01/12/19 Stop Date: 01/12/19 Status: Pending Completeampicillin (ANES) 1000 mg Route: IV, Drug form: INJ, Start date: 01/12/19 11:50:00 CDT, Stop date: 12:50:00 CDT Start Date: 01/12/19 Stop Date: 01/12/19 Status: CompletedANES albuterol 0.083% inhalation solution 2.49 mg, 3 mL, Route: NEB, Drug form: SOLN, Q20Min, Dosing Weight 64.545, kg, PRN Wheezing, Priority: STAT, Start date: 01/12/19 12:37:00 CDT, Stop date: 0:00:00 CDT Notes: SEE RT DOCUMENTATION (Same as: Scott) Start Date: 01/12/19 Stop Date: 01/12/19 Status: DiscontinuedANES diphenhydrAMINE 12.5 mg, 0.25 mL, Route: IVP, Drug form: INJ, Q6H, Dosing Weight 64.545, kg, PRN Itching, Start date: 01/12/19 12:37:00 CDT, Stop date: 01/13/19 0:00:00 CDT Notes: (Same as: Benadryl) Start Date: 01/12/19 Stop Date: 01/12/19 Status: DiscontinuedANES flumazenil 0.2 mg, 2 mL, Route: IVP, Drug form: INJ, PRN, Dosing Weight 64.545, kg, PRN Benzodiazepine Reversal, Initial dose, Start date: 01/12/19 12:37:00 CDT, Stop date: 01/13/19 0:00:00 CDT Notes: (Same as: Romazicon) Start Date: 01/12/19 Stop Date: 01/12/19 Status: DiscontinuedANES hydrALAZINE 10 mg, 0.5 mL, Route: IVP, Drug form: INJ, Q20Min, Dosing Weight 64.545, kg, PRN Elevated BP, Start date: 01/12/19 12:37:00 CDT, Duration: 2 doses or times, Stop date: 01/13/19 0:00:00 CDT Notes: (Same as: Apresoline)Push over 5 minutes Start Date: 01/12/19 Stop Date: 01/12/19 Status: DiscontinuedANES HYDROmorphone 0.5 mg, 0.25 mL, Route: IVP, Drug form: INJ, Q5Min, Dosing Weight 64.545, kg, PRN Pain Score 7-10, Start date: 01/12/19 12:37:00 CDT, Duration: 4 doses or times, Stop date: 01/13/19 0:00:00 CDT Notes: Same as Dilaudid Start Date: 01/12/19 Stop Date: 01/12/19 Status: CompletedANES metoprolol 1 mg, 1 mL, Route: IVP, Drug form: INJ, Q5Min, Dosing Weight 64.545, kg, PRN Other -See Comment, Start date: 01/12/19 12:37:00 CDT, Duration: 5 doses or times, Stop date: 01/13/19 0:00:00 CDT Notes: (Same as: Lopressor)Push over 2 minutes Start Date: 01/12/19 Stop Date: 01/12/19 Status: DiscontinuedANES naloxone 0.4 mg, 1 mL, Route: IVP, Drug form: INJ, Q2MIN, Dosing Weight 64.545, kg, PRN Narcotic Reversal, Start date: 01/12/19 12:37:00 CDT, Duration: 8 doses or times , Stop date: Limited # of times Notes: Same as Narcan Start Date: 01/12/19 Stop Date: 01/12/19 Status: DiscontinuedANES ondansetron 4 mg, 2 mL, Route: IVP, Drug form: INJ, ONCE, Dosing Weight 64.545, kg, PRN Nausea & Vomiting, Start date: 01/12/19 12:37:00 CDT Notes: (Same as: Lisa) MEDICATION WASTE Product Size: 4 mgProduct Wasted: ___ mg Start Date: 01/12/19 Stop Date: 01/12/19 Status: DiscontinuedANES oxyCODONE 10 mg, 2 tab, Route: PO, Drug form: TAB, Q4H, Dosing Weight 64.545, kg, PRN Pain Score 7-10, Start date: 01/12/19 12:37:00 CDT, Stop date: 01/13/19 0:00:00 CDT Notes: (Same as: Roxicodone) Start Date: 01/12/19 Stop Date: 01/12/19 Status: DiscontinuedANES promethazine 6.25 mg, 0.25 mL, Route: IVPB, Drug form: INJ, ONCE, Dosing Weight 64.545, kg, PRN Nausea & Vomiting, Start date: 01/12/19 12:37:00 CDT Notes: Do not give IV push. (Same as: Phenergan) Start Date: 01/12/19 Stop Date: 01/12/19 Status: Discontinuedaspirin 325 mg, 1 tab, Route: PO, Drug form: TAB, BID, Dosing Weight 64.545, kg, Start date: 01/15/19 9:00:00 CDT, Duration: 30 day, Stop date: 02/13/19 17:00:00 CDT Notes: Take with food. Start Date: 01/15/19 Stop Date: 01/15/19 Status: Discontinuedaspirin 325 mg, PO, BID, 0 Refill(s) Start Date: 01/06/19 Status: Orderedaspirin 0 Refill(s) Start Date: 01/06/19 Stop Date: 01/06/19 Status: DeletedBenadryl 25 mg, 1 cap, Route: PO, Drug form: CAP, BID, Dosing Weight 64.545, kg, Start date: 01/15/19 9:00:00CDT, Duration: 30 day, Stop date: 02/13/19 17:00:00 CDT Notes: (Same as: Benadryl) Start Date: 01/15/19 Stop Date: 01/15/19 Status: DiscontinuedBenadryl 25 mg, PO, BID, 0 Refill(s) Start Date: 01/06/19 Status: Ordereddexamethasone (ANES) Route: IV, Drug form: INJ, ONCE, Stop date: 01/12/19 11:13:00 CDT Start Date: 01/12/19 Stop Date: 01/12/19 Status: CompletedDiflucan 100 mg, 1 tab, Route: PO, Drug form: TAB, [id number], Dosing Weight 64.545, kg, Start date: 01/14/19 10:00:00 CDT, Duration: 7 day, Stop date: 01/20/19 10:00: 00 CDT, ABX Indication: Genital Tract Infection Notes: (Same as: Diflucan) Start Date: 01/14/19 Stop Date: 01/15/19 Status: Discontinueddocusate sodium 100 mg oral capsule 100 mg, 1 cap, Route: PO, Drug form: CAP, BID, Dosing Weight 64.545, kg, Start date: 01/12/19 17:00:00 CDT, Duration: 30 day, Stop date: 02/11/19 9:00:00 CDT Notes: (Same as: Colace) (Do Not Crush) Start Date: 01/12/19 Stop Date: 01/14/19 Status: Discontinueddocusate sodium 100 mg oral capsule 200 mg, 2 cap, Route: PO, Drug form: CAP, BID, Dosing Weight 64.545, kg, Start date: 01/14/19 17:00:00 CDT, Duration: 30 day, Stop date: 02/13/19 9:00:00 CDT Notes: (Same as: Colace) (Do Not Crush) Start Date: 01/14/19 Stop Date: 01/15/19 Status: Discontinueddocusate-senna 50 mg-8.6 mg oral tablet 2 tab, Route: PO, Drug Form: TAB, Dosing Weight 64.545, kg, BID, Start date: 17:00:00 CDT, Duration: 30 day, Stop date: 02/14/19 9:00:00 CDT Start Date: 01/15/19 Stop Date: 01/15/19 Status: Canceledenoxaparin 40 mg, 0.4 mL, Route: SUB-Q, Drug form: INJ, [id number], Dosing Weight 64.545, kg , Start date: 01/13/19 9:00:00 CDT, Duration: 30 day, Stop date: 02/11/19 9:00: 00 CDT Notes: (Same as: Lovenox) Start Date: 01/13/19 Stop Date: 01/15/19 Status: Discontinuedfamotidine 20 mg, 1 tab, Route: PO, Drug form: TAB, Q12H, Dosing Weight 64.545, kg, Start date: 01/12/19 21:00:00 CDT, Duration: 30 day, Stop date: 02/11/19 9:00:00 CDT Notes: (Same as: Pepcid) Start Date: 01/12/19 Stop Date: 01/15/19 Status: Discontinuedfamotidine (ANES) Route: IV, Drug form: INJ, ONCE, Stop date: 01/12/19 11:18:00 CDT Start Date: 01/12/19 Stop Date: 01/12/19 Status: CompletedfentaNYL (ANES) Route: IV, Drug form: INJ, ONCE, Stop date: 01/12/19 11:07:00 CDT Start Date: 01/12/19 Stop Date: 01/12/19 Status: Completedfluconazole 400 mg, 200 mL, Route: IV, Drug form: INJ, ONCE, Dosing Weight 64.545, kg, Start date: 01/12/19 15:43:00 CDT, Stop date: 01/12/19 15:43:00 CDT, ABX Indication: Other (specify in Comments) Notes: (Same as: Diflucan) Start Date: 01/12/19 Stop Date: 01/14/19 Status: Discontinuedfluconazole 400 mg, 200 mL, Route: IV, Drug form: INJ, ONCE, Dosing Weight 64.545, kg, Start date: 01/12/19 15:51:00 CDT, Stop date: 01/12/19 15:51:00 CDT, ABX Indication: Other (specify in Comments) Notes: (Same as: Diflucan) Start Date: 01/12/19 Stop Date: 01/14/19 Status: Discontinuedfluconazole (ANES) 2 mg Route: IV, Drug form: INJ, Start date: 01/12/19 11:56:00 CDT, Stop date: 12:56:00 CDT Start Date: 01/12/19 Stop Date: 01/12/19 Status: Completedfluconazole 100 mg oral tablet 100 mg=1 tab, PO, [id number], X 14 day, # 14 tab, 0 Refill(s) Start Date: 01/15/19 Stop Date: 01/29/19 Status: Orderedhydromorphone 0.3 mg, 0.15 mL, Route: IVP, Drug form: INJ, Q3H, Dosing Weight 64.545, kg, PRN Pain Score 7-10, Start date: 01/12/19 14:48:00 CDT, Duration: 30 day, Stop date : 02/11/19 14:47:00 CDT Notes: Same as Dilaudid Start Date: 01/12/19 Stop Date: 01/15/19 Status: Discontinuedhydromorphone (ANES) Route: IV, Drug form: INJ, ONCE, Stop date: 01/12/19 12:39:00 CDT Start Date: 01/12/19 Stop Date: 01/12/19 Status: CompletedLactated Ringers Injection IV (ANES) 1000 mL Route: IV, Total Volume: 1,000, Start date: 01/12/19 9:23:00 CDT, Stop date: 10:23:00 CDT Start Date: 01/12/19 Stop Date: 01/12/19 Status: CompletedLactated Ringers Injection IV (ANES) 500 mL Route: IV, Total Volume: 500, Start date: 01/12/19 11:50:00 CDT, Stop date: 12:50:00 CDT Start Date: 01/12/19 Stop Date: 01/12/19 Status: CompletedLactated Ringers Injection IV 1,000 mL 1,000 mL, Rate: 125 ml/hr, Infuse over: 8 hr, Route: IV, Dosing Weight 64.545 kg , Total Volume: 1,000, Start date: 01/12/19 14:48:00 CDT, Duration: 30 day, Stop date: 02/11/19 14:47:00 CDT, 1.72, m2 Start Date: 01/12/19 Stop Date: 01/14/19 Status: Discontinuedlidocaine (ANES) Route: IV, Drug form: INJ, ONCE, Stop date: 01/12/19 11:07:00 CDT Start Date: 01/12/19 Stop Date: 01/12/19 Status: Completedlidocaine 1% 5 mL, Route: INTRADERM, Drug Form: INJ, Dosing Weight 64.545, kg, ONCALL, For PICC line insertion., Start date: 01/12/19 18:00:00 CDT, Duration: 1 doses or times Notes: Preservative free. (Same as: Xylocaine MPF) Start Date: 01/12/19 Stop Date: 01/15/19 Status: Discontinuedmidazolam (ANES) Route: IV, Drug form: SOLN, ONCE, Stop date: 01/12/19 11:07:00 CDT Start Date: 01/12/19 Stop Date: 01/12/19 Status: Completedminocycline 100 mg, 1 cap, Route: PO, Drug form: CAP, [id number], Dosing Weight 64.545, kg, Start date: 01/13/19 15:00:00 CDT, Duration: 30 day, Stop date: 02/12/19 3:00: 00 CDT Notes: (Same as:Minocin) No milk/antacids/iron. Start Date: 01/13/19 Stop Date: 01/15/19 Status: Discontinuedminocycline 100 mg oral capsule 100 mg=1 cap, PO, [id number], X 10 day, # 20 cap, 0 Refill(s) Start Date: 01/15/19 Stop Date: 01/25/19 Status: OrderedMiraLax 17 gm, PO, BID, 0 Refill(s) Start Date: 01/06/19 Status: OrderedMiraLax 17 gm, 1 pkt, Route: PO, Drug form: PWDR, BID, Dosing Weight 64.545, kg, Start date: 01/14/19 17:00:00 CDT, Duration: 30 day, Stop date: 02/13/19 9:00:00 CDT Notes: Dissolve in 8 oz of water or juice.(Same as: Miralax) Start Date: 01/14/19 Stop Date: 01/15/19 Status: DiscontinuedMirena 1 ea, Route: Intrauteral, ONCE, Dosing Weight 66.506, kg, Start date: 01/05/19 19:25:00 CDT, Stop date: 01/05/19 19:25:00 CDT Start Date: 01/05/19 Stop Date: 01/12/19 Status: DiscontinuedMirena 1 ea, Route: Intrauteral, Drug form: DEV, ONCE, Dosing Weight 64.545, kg, Start date: 01/12/19 8:05:00 CDT, Stop date: 01/12/19 8:05:00 CDT Notes: Same as Mirena Start Date: 01/12/19 Stop Date: 01/12/19 Status: Completedondansetron 4 mg, 2 mL, Route: IVP, Drug form: INJ, Q6H, Dosing Weight 64.545, kg, PRN Nausea & Vomiting, Start date: 01/12/19 14:48:00 CDT, Duration: 30 day, Stop date: 02/11/19 14:47:00 CDT Notes: (Same as: Lisa) MEDICATION WASTE Product Size: 4 mgProduct Wasted: ___ mg Start Date: 01/12/19 Stop Date: 01/13/19 Status: Deletedondansetron (ANES) Route: IV, Drug form: INJ, ONCE, Stop date: 01/12/19 12:44:00 CDT Start Date: 01/12/19 Stop Date: 01/12/19 Status: CompletedoxyCODONE 5 mg oral tablet, immediate release 5 mg=1 tab, PO, Q4H, PRN Pain Score 4-6, 0 Refill(s) Start Date: 01/15/19 Status: OrderedoxyCODONE 5 mg oral tablet, immediate release 5 mg, 1 tab, Route: PO, Drug form: TAB, Q4H, Dosing Weight 64.545, kg, PRN Pain Score 4-6, Start date: 01/12/19 21:28:00 CDT, Duration: 30 day, Stop date: 02/11 21:27:00 CDT Notes: (Same as: Roxicodone) Start Date: 01/12/19 Stop Date: 01/15/19 Status: Discontinuedpotassium chloride 40 mEq, 2 tab, Route: PO, Drug form: ERTAB, Daily, Dosing Weight 64.545, kg, Start date: 01/14/19 20:36:00 CDT, Duration: 14 day, Stop date: 01/27/19 21:00: 00 CDT Notes: (Same as: K-Dur 20)"Do Not Crush" Give with food and full glass of waterFor patients unable to swallow tablet, dissolve in one half glass of water. Allow about 2 minutes for the tablets to disintegrate. Stir before giving to prepare slurry and administer.Please exclude Patients with feedingtube less than 14 Yi (Dobhoff, J-tube etc) and pediatric and patients. Start Date: 01/14/19 Stop Date: 01/15/19 Status: Discontinuedpromethazine 12.5 mg, 0.5 mL, Route: IVPB, Drug form: INJ, Q4H, Dosing Weight 64.545, kg, PRN Nausea & Vomiting, Start date: 01/12/19 14:48:00 CDT, Duration: 30 day, Stop date: 02/11/19 14:47:00 CDT Notes: Do not give IV push. (Same as: Phenergan) Start Date: 01/12/19 Stop Date: 01/14/19 Status: Discontinuedpropofol (ANES) Route: IV, Drug form: INJ, ONCE, Stop date: 01/12/19 11:07:00 CDT Start Date: 01/12/19 Stop Date: 01/12/19 Status: Completedpropofol (ANES) 10 mg Route: IV, Drug form: INJ, Start date: 01/12/19 12:49:00 CDT, Stop date: 13:49:00 CDT Start Date: 01/12/19 Stop Date: 01/12/19 Status: Completedrocuronium (ANES) Route: IV, Drug form: INJ, ONCE, Stop date: 01/12/19 11:07:00 CDT Start Date: 01/12/19 Stop Date: 01/12/19 Status: CompletedSaline Flush 0.9% 10 mL, Route: IVP, Drug Form: INJ, Dosing Weight 64.545, kg, PRN, PRN Line Flush , Start date: 01/12/19 17:12:00 CDT, Duration: 30 day, Stop date: 02/11/19 17:11 :00 CDT Notes: (Same as: BD Posiflush) Start Date: 01/12/19 Stop Date: 01/15/19 Status: DiscontinuedSaline Flush 0.9% 10 mL, Route: IVP, Drug Form: INJ, Dosing Weight 64.545, kg, Q8H, Start date: 0:00:00 CDT, Duration: 30 day, Stop date: 02/11/19 16:00:00 CDT Notes: (Same as: BD Posiflush) Start Date: 01/13/19 Stop Date: 01/15/19 Status: Discontinuedsenna 8.6 mg oral tablet 17.2 mg=2 tab, PO, BID, X 10 day, # 40 tab, 0 Refill(s) Start Date: 01/15/19 Stop Date: 01/25/19 Status: OrderedSenokot 17.2 mg, 2 tab, Route: PO, Drug form: TAB, BID, Start date: 01/15/19 12:00:00 CDT, Duration: 30 day,Stop date: 02/14/19 9:00:00 CDT Notes: (Same as: Senokot) Start Date: 01/15/19 Stop Date: 01/15/19 Status: Discontinuedsertraline 100 mg, 1 tab, Route: PO, Drug form: TAB, BID, Dosing Weight 64.545, kg, Start date: 01/14/19 17:00:00 CDT, Duration: 30 day, Stop date: 02/13/19 9:00:00 CDT Notes: (Same as: Zoloft) Start Date: 01/14/19 Stop Date: 01/15/19 Status: Discontinuedsertraline 100 mg oral tablet 100 mg=1 tab, PO, BID, 0 Refill(s) Start Date: 01/15/19 Status: Orderedsertraline 100 mg oral tablet 100 mg=1 tab, PO, BID, 0 Refill(s) Start Date: 01/06/19 Stop Date: 01/15/19 Status: Discontinuedsodium citrate (ANES) Route: PO, Drug Form: INJ, ONCE, Stop date: 01/12/19 12:39:00 CDT Start Date: 01/12/19 Stop Date: 01/12/19 Status: Completedsugammadex 200 mg, 2 mL, Route: IV, Drug form: SOLN, ONCALL, Start date: 01/12/19 18:00:00 CDT, Duration: 1 doses or times, Stop date: 01/12/19 18:01:00 CDT Notes: (Same as: Bridion) Start Date: 01/12/19 Stop Date: 01/15/19 Status: Discontinuedsugammadex (ANES) Route: IV, Drug form: SOLN, ONCE, Stop date: 01/12/19 15:02:00 CDT Start Date: 01/12/19 Stop Date: 01/12/19 Status: Completedtobramycin (ANES) 40 mg Route: IV, Drug form: INJ, Start date: 01/12/19 11:52:00 CDT, Stop date: 12:52:00 CDT Start Date: 01/12/19 Stop Date: 01/12/19 Status: Completedtramadol 100 mg, 2 tab, Route: PO, Drug form: TAB, Q6H, Dosing Weight 64.545, kg, PRN Pain Score 1-3, Start date: 01/12/19 14:33:00 CDT, Duration: 30 day, Stop date: 02/11/19 14:32:00 CDT Notes: Not to exceed 400mg/day. (Same As: Ultram) Start Date: 01/12/19 Stop Date: 01/15/19 Status: Discontinuedtramadol 50 mg oral tablet 100 mg=2 tab, PO, Q6H, PRN Pain Score 1-3, X 7 day, # 20 tab, 0 Refill(s) Start Date: 01/15/19 Stop Date: 01/22/19 Status: Orderedtramadol 50 mg oral tablet 50 mg, 1 tab, Route: PO, Drug form: TAB, Q4H, Dosing Weight 64.545, kg, PRN Pain Score 1-3, Start date: 01/12/19 14:33:00 CDT, Duration: 30 day, Stop date: 02/11/19 14:32:00 CDT Notes: Not to exceed 400mg/day. (Same As: Ultram) Start Date: 01/12/19 Stop Date: 01/12/19 Status: DeletedTylenol with Codeine #3 oral tablet 1 tab, Route: PO, Drug Form: TAB, Dosing Weight 64.545, kg, Q6H-02, PRN Pain 1-3 /Temp > 100.4 F, Start date: 01/13/19 13:42:00 CDT, Duration: 30 day, Stop date: 02/12/19 13:41:00 CDT Notes: Do not exceed 4gm/day of acetaminophen. (Same as: Tylenol with Codeine # 3) Start Date: 01/13/19 Stop Date: 01/15/19 Status: DiscontinuedUnknown Home Medication PO, Daily, BOOST SUPPLEMENT EVERY MORNING., Refill(s) 0 Start Date: 01/06/19 Status: OrderedXarelto See Instructions, MEDICATION HAS BEEN STOPPED., 0 Refill(s) Start Date: 01/06/19 Status: OrderedZofran 4 mg, 2 mL, Route: IM, Drug form: INJ, Q8H, Dosing Weight 64.545, kg, PRN Nausea , Start date: 01/13/19 20:16:00 CDT, Duration: 30 day, Stop date: 02/12/19 20:15 :00 CDT Notes: (Same as: Zofran) MEDICATION WASTE Product Size: 4 mgProduct Wasted: 0 mg Start Date: 01/13/19 Stop Date: 01/14/19 Status: DiscontinuedZofran 4 mg oral tablet 4 mg=1 tab, PO, BID, # 10 tab, 0 Refill(s) Start Date: 01/15/19 Stop Date: 01/20/19 Status: OrderedZofran ODT 4 mg, 1 tab, Route: PO, Drug form: TABDIS, Q8H, Dosing Weight 64.545, kg, PRN Nausea, Start date: 01/14/19 10:43:00 CDT, Duration: 30 day, Stop date: 10:42:00 CDT Notes: (Same as: Zofran ODT) Start Date: 01/14/19 Stop Date: 01/15/19 Status: Discontinuedzolpidem 5 mg, 1 tab, Route: PO, Drug form: TAB, Bedtime, Dosing Weight 64.545, kg, PRN as needed for insomnia, Start date: 01/12/19 21:28:00 CDT, Duration: 30 day, Stop date: 02/11/19 21:27:00 CDT Notes: (Same As: Marianna) Start Date: 01/12/19 Stop Date: 01/15/19 Status: Discontinued Results Most recent to oldest 1 2 3 [Reference Range]: eGFR 140 mL/min/1.73m2 1 138 mL/min/1.73m2 2 137 mL/min/1.73m2 3 *NA* *NA* *NA* (01/15/19 5:17 AM) (01/14/19 6:22 PM) (01/12/19 4:46 PM) ABO/Rh A NEG *Unknown* (01/12/19 8:53 AM) Antibody Scrn Negative (01/12/19 8:53 AM) AGAP [10.0-20.0 mEq/L] 11.3 mEq/L 9.9 mEq/L 9.7 mEq/L (01/15/19 5:17 AM) *LOW* *LOW* (01/14/19 6:22 PM) (01/12/19 4:46 PM) BUN [7-22 mg/dL] 9 mg/dL 7 mg/dL 11 mg/dL (01/15/19 5:17 AM) (01/14/19 6:22 PM) (01/12/19 4:46 PM) Calcium Lvl [8.5-10.5 8.4 mg/dL 8.5 mg/dL 8.2 mg/dL mg/dL] *LOW* (01/14/19 6:22 PM) *LOW* (01/15/19 5:17 AM) (01/12/19 4:46 PM) Chloride Lvl [95-109 mEq/L] 112 mEq/L 111 mEq/L 112 mEq/L *HI* *HI* *HI* (01/15/19 5:17 AM) (01/14/19 6:22 PM) (01/12/19 4:46 PM) CO2 [24-32 mEq/L] 19 mEq/L 22 mEq/L 23 mEq/L *LOW* *LOW* *LOW* (01/15/19 5:17 AM) (01/14/19 6:22 PM) (01/12/19 4:46 PM) Creatinine Lvl [0.50-1.40 0.51 mg/dL 0.53 mg/dL 0.55 mg/dL mg/dL] (01/15/19 5:17 AM) (01/14/19 6:22 PM) (01/12/19 4:46 PM) Glucose Lvl [70-99 mg/dL] 60 mg/dL 89 mg/dL 107 mg/dL *LOW* (01/14/19 6:22 PM) *HI* (01/15/19 5:17 AM) (01/12/19 4:46 PM) Hgb [12.0-16.0 g/dL] 10.2 g/dL *LOW* (01/12/19 4:46 PM) Potassium Lvl [3.5-5.1 4.3 mEq/L 2.9 mEq/L 4 3.7 mEq/L mEq/L] (01/15/19 5:17 AM) *CRIT* (01/12/19 4:46 PM) (01/14/19 6:22 PM) Sodium Lvl [135-145 mEq/L] 138 mEq/L 140 mEq/L 141 mEq/L (01/15/19 5:17 AM) (01/14/19 6:22 PM) (01/12/19 4:46 PM) 1Result Comment: The eGFR is calculated using [...] eGFR should be multiplied by the estimated BMI.4Result Comment: Critical Result(s) called to ARUN ZULETA at [facility] byAT. Read back OK.Microbiology Reports TEST:Culture: Urine STATUS:Auth (Verified) BODY SITE: SOURCE:Urine, Kidney COLLECTED DATE/TIME:01/12/19 12:12 PMFINAL REPORT>10,000/cfu/ml Escherichia coli >10,000/cfu/ml Enterococcus Species ORGANISM:Escherichia coliORGANISM:Enterococcus Species Immunizations Given and Recorded Vaccine Date [...] Reg Smoking Cessation Counseling No entered on: 01/12/19 Assessment and Plan Extracted from: Title: Urology Progress Note Author: Caio Villalobos MD Date: 01/15/19 Impression and Plan Pt is [...] and nausea. Plan for d/c today Extracted from: Title: Clinical Document Author: Jared Aguilar MD Date: [...] in the past, with recent admission to [facility] with Hb 4. - MRI: ET 8mm, adenomyosis noted in uterine fundus, Multiple intramural fibroids and one Anterior uterine fibroid 3.8 cm - last hgb 11.1 - will proceed with hscope d&c, mirena IUD placement and pap 2. POP - s/p reconstructive surgery and pessary removal in the office by Dr Aguialr - pt had never removed the pessary [...] Physician | PGY1 Department of Obstetrics, Gynecology & Reproductive Sciences [facility] [place]
--- OUTSIDE RECORDS SUMMARY | 2019-05-01 17:08 | XMS REPORT | Summary of Care ---
:1980 Author Name Gia Leong Address [facility] Unavailable , Care Team Providers Name Role Phone DEVENDRA James, DEONDRE Unavailable Unavailable LARRY James, ANNIE Unavailable Unavailable CHRISTOPHE James, ROBERTO Unavailable Unavailable JUANA James, REYNA Unavailable Unavailable DEVENDRA MASON IA, DEONDRE Unavailable Unavailable Anais MASON, Karon Unavailable Unavailable ANKITA LOCKETT MD, ARGENTINA Unavailable Unavailable Juana MASON, Reyna Unavailable Unavailable JANIE MASON IA, IRVING TORRES Unavailable Unavailable LARRY MASON, ANNIE Unavailable Unavailable Trinidad MASON, James Unavailable Unavailable Unavailable Unavailable Unavailable Functional Status [...] TWICE DAILY Quantity: 14 Refills: 0 LARRY JamesANNIE Start : 04-Jan-2019 Active Ferrous Sulfate 325 [...] Z87.440) Status: Resolved Procedures Procedure Dates Details Procedures not documented Immunization Name Dates Details Fluzone Quadrivalent 0.5 ML Intramuscular Suspension on: Aug-2016 Tdap (Adacel) on: Aug-2016 Social History Name Dates Details - Status: Name Dates Details Never smoker Never smoker Vital Signs Date Test Result Details [id number]-[id number] BP Systolic 116 mm[Hg] Status: Comments: Location: LUE; Position: Sitting BP Diastolic 81 mm[Hg] Status: Comments: Location: LUE; Position: Sitting Height 60 in Status: Temperature 98.4 f Status: Comments: Method: Oral Heart Rate 103 /min Status: Physical Findings 0 Status: Comments: Alcohol Screen - How many times in the past yr have you had 5 (for M) or 4 (for F) or 4 (for all > 65yrs) or more drinks in a day? [id number] BP Systolic 115 mm[Hg] Status: Comments: Location: RUE; Position: Sitting BP Diastolic 81 mm[Hg] Status: Comments: Location: RUE; Position: Sitting Height 60 in Status: Temperature [...] Rate 18 /min Status: Comments: Quality: Normal Results Date Description Value Details Results not documented Plan of Care Name Dates Details Planned Observations Planned Goals not documented Planned Encounters Neurology Referral Appointment; ANNIE JUAREZ M.D. On: 03-Mar-2019 9:15 Appointment; REYNA AKHTAR M.D. On: 20-Mar-2019 14:45 Appointment; ABDIRAHMAN VALLEJO M.D. On: 21-Mar-2019 11:00 Interventions Provided Medication ChangesFerrous Sulfate 325 (65 Fe) MG Oral Tablet - StartOndansetron HCl - 4 MG Oral Tablet - RenewZolpidem Tartrate 5 MG Oral Tablet - RenewPlanHosp f/u:Pt recently hosp for planned d&c and Mirena placement, afterwards pt's PCN dislodged and she wasadmitted for possible replacement but 2 /2 to stable condition and stent in place she was d/c'd home with Urology f/u, pt denies fever/chills, flank pain, or other ROS since d/c, mancilla draining without issue- Urology f/uMenorrhagia:Likely 2/2 to fibroids, pt on AC?, s/p d& amp;c and Mirena IUD placement in 01/15, followed by OBGYN- Cont f/u with OBGYNChronic nephrolithiasis:S/p mult PCN's, recently tube dislodged and not replaced 2/2 to stable condition and remaining stent, pt asymptomatic today, followed by Urology- Cont f/u with UrologySpina bifida:S/p [employer] shunt, with paraplegia and diverting colostomy and urostomy, pt currently without Neuro f/u , previously followed by outside Neuro- Neuro referralH/o [facility] VTE:Per chart pt to be on AC, unclear if pt is currently taking- Discuss on RTC- Consider Heme referral on RTCHTN:Current regimen: Amlodipine 5mg daily, BP well controlled- Cont current regimen- BP goal: <140/90- Last eye exam: on RTC- BALA on RTCMDD: With insomnia, current regimen: Sertraline 150mg daily and Ambien 5mg daily- Cont current regimen- Discuss therapy on RTCHM:- Pap smear + cotest: 01/15, results pend- Annual physical for appropriate screenings Instructions Name Dates Details Instructions not documented [...] 9:40 Encounter Diagnosis: Problem not documented Appointment; [facility], [facility] On: 23-Dec-2018 11:00 Encounter Diagnosis: Problem not documented Appointment; REYNA AKHTAR M.D. On: 04-Jan-2019 8:15 Encounter Diagnosis: Problem not documented Appointment; ANNIE JUAREZ M.D. On: 12-Jan-2019 7:30 Encounter Diagnosis: Problem not documented Appointment; DEONDRE RAMSAY M.D. On: 12-Jan-2019 11:30 Encounter Diagnosis: Problem not documented Appointment; ROBERTO SAEED M.D. On: 25-Jan-2019 10:30 Encounter Diagnosis: Problem not documented
--- OUTSIDE RECORDS SUMMARY | 2019-05-01 17:08 | XMS REPORT ---
:1980 [facility] Address [address] [place] [address] Dr. Ha[address]. [address] [place] [address] Care Team Providers Name Role Phone DILMA LOMBARDI WAQAR Unavailable Unavailable DANGELO VERMA MABEL Unavailable Unavailable Problems This patient has no known problems. Allergies, Adverse Reactions, Alerts This patient has no known allergies or adverse reactions. Medications This patient has no known medications. Encounters Start End Encounter Admission Attending Care Care Encounter Date/Time Date/Time Type Type Clinicians Facility Department ID 2018-12-13 Inpatient [facility] [id number] 17:12:36 2019-01-30 2019-01-30 Emergency E [facility] [id number] 18:32:00 18:32:00 2019-01-22 2019-01-22 Outpatient E [facility] [id number] 05:46:00 05:46:00 2019-01-12 2019-01-12 Outpatient [facility] [id number] 17:47:00 17:47:00 2019-01-06 2019-01-06 Outpatient [facility] [id number] 10:09:00 10:09:00 2018-12-14 2018-12-13 Inpatient E [facility] [id number] 03:28:00 19:10:00 Results Test Description Test Time Test Comments Text Results Atomic Results Result Comments SURGICALLY OBTAINED CULTURE + GRAM STAIN 2018-07-03 12:12:00 Test Item Value Reference Range Comments CULTURE (BEAKER) (test ENTEROCOCCUS SPECIES 2+ Enterococcus gokt=2301) species Ampicillin (test code=26) Linezolid (test code=40) Tetracycline (test code=2) Vancomycin (test code=13) CULTURE (BEAKER) (test 1+ Katie albicans muep=6977) CULTURE (BEAKER) (test KLEBSIELLA 1+ Klebsiella oimi=4649) PNEUMONIAE SSP pneumoniae ssp PNEUMONIAE pneumoniae Amikacin (test code=1) Ampicillin + Sulbactam (test code=6) Aztreonam (test code=32) Cefepime (test code=51) Cefoxitin (test code=68) Ceftazidime (test code=27) Ceftriaxone (test code=52) Ertapenem (test code=38) Gentamicin (test code=18) Levofloxacin (test code=22) Meropenem (test code=34) Nitrofurantoin (test code=23) Piperacillin + Tazobactam (test code=29) Tetracycline (test code=2) Tobramycin (test code=25) Trimethoprim + Sulfamethoxazole (test code=47) CULTURE ([employer]) (test VANCOMYCIN RESISTANT 1+ Vancomycin ytrx=7166) ENTEROCOCCUS SPECIES resistant Enterococcus species Ampicillin (test code=26) Linezolid (test code=40) Vancomycin (test code=13) Daptomycin (test Susceptible 0-4 , No code=59) Interpretations Established <0 or >4 ANAEROBIC [id number] 05:31:00 Test Item Value Reference Range Comments CULTURE (GlideAKER) (test tqly=1276) No anaerobes isolated URINE [id number] 11:06:00 Test Item Value Reference Range Comments CULTURE (GlideAKER) (test 20-29,000 col/mL bimc=4111) Katie parapsilosis CULTURE (BEAKER) (test PSEUDOMONAS 20-29,000 col/mL hsev=5945) AERUGINOSA Pseudomonas aeruginosa Amikacin (test code=1) Susceptible [...] , code=25) Resistant <0 or >4 URINE [id number] 11:03:00 Test Item Value Reference Range Comments CULTURE (BEAKER) (test ENTEROCOCCUS SPECIES >100,000 col/mL niet=8610) Enterococcus species Ampicillin (test code=26) Linezolid (test code=40) Nitrofurantoin (test code=23) Tetracycline (test code=2) Vancomycin (test code=13) CULTURE (BEAKER) (test ESCHERICHIA COLI 50-59,000 col/mL rgde=4434) Escherichia coli Amikacin (test code=1) Ampicillin + Sulbactam (test code=6) Aztreonam (test code=32) Cefepime (test code=51) Cefoxitin (test code=68) Ceftazidime (test code=27) Ceftriaxone (test code=52) Ertapenem (test code=38) Gentamicin (test code=18) Levofloxacin (test code=22) Meropenem (test code=34) Nitrofurantoin (test code=23) Piperacillin + Tazobactam (test code=29) Tetracycline (test code=2) Tobramycin (test code=25) Trimethoprim + Sulfamethoxazole (test code=47) CULTURE (BEAKER) (test ENTEROBACTER CLOACAE 50-59,000 col/mL vkqc=8620) COMPLEX Enterobacter cloacae complex Amikacin (test code=1) Aztreonam (test code=32) Cefepime (test code=51) Cefoxitin (test code=68) Ceftazidime (test code=27) Ceftriaxone (test code=52) Ertapenem (test code=38) Gentamicin (test code=18) Levofloxacin (test code=22) Meropenem (test code=34) Nitrofurantoin (test code=23) Piperacillin + Tazobactam (test code=29) Tetracycline (test code=2) Tobramycin (test code=25) Trimethoprim + Sulfamethoxazole (test code=47) Dr. lopez request for avycaz and zerbaxaCT, [id number] 07:41:00FINAL REPORT INDICATION:37-year-old female status post recent [...] Verified Date/Time : 06/29/2018 07:41:57 Reading Location: [facility] Diagnostic Imaging Reading Room - [place] [id number] Electronically signed by: FREDERICK BOYD M.D. on 2017 07:41 AMCBC W/PLT COUNT & AUTO [id number] 07:07:00 Test Item Value Reference Range Comments WHITE BLOOD CELL COUNT 9.2 K/ L 3.5-10.5 (BEAKER) (test dsjx=591) RED BLOOD CELL COUNT (BEAKER) 4.41 M/ L 3.93-5.22 (test xgbq=111) HEMOGLOBIN (BEAKER) (test 10.1 GM/DL 11.2-15.7 xgqi=294) HEMATOCRIT (BEAKER) (test 33.7 % 34.1-44.9 dfpa=145) MEAN CORPUSCULAR VOLUME 76.4 fL 79.4-94.8 (BEAKER) (test ista=578) MEAN CORPUSCULAR HEMOGLOBIN 22.9 pg 25.6-32.2 (BEAKER) (test lclk=492) MEAN CORPUSCULAR HEMOGLOBIN 30.0 GM/DL 32.2-35.5 CONC (BEAKER) (test pexq=393) RED CELL DISTRIBUTION WIDTH 21.2 % 11.7-14.4 (BEAKER) (test npcf=926) PLATELET COUNT (BEAKER) (test 51 K/CU MM 150-450 diab=169) MEAN PLATELET VOLUME (BEAKER) fL 9.4-12.3 Unable to report due to (test ghfa=424) abnormal Platelet population distribution. NUCLEATED RED BLOOD CELLS 0 /100 WBC 0-0 (BEAKER) (test hmzr=511) NEUTROPHILS RELATIVE PERCENT 71 % (BEAKER) (test qblt=344) LYMPHOCYTES RELATIVE PERCENT 17 % (BEAKER) (test jtro=835) MONOCYTES RELATIVE PERCENT 10 % (BEAKER) (test ylrh=895) EOSINOPHILS RELATIVE PERCENT 1 % (BEAKER) (test owyw=875) BASOPHILS RELATIVE PERCENT 0 % (BEAKER) (test alvl=890) NEUTROPHILS ABSOLUTE COUNT 6.59 K/ L 1.56-6.13 (BEAKER) (test fkgh=578) LYMPHOCYTES ABSOLUTE COUNT 1.59 K/ L 1.18-3.74 (BEAKER) (test njyv=374) MONOCYTES ABSOLUTE COUNT 0.91 K/ L 0.24-0.36 (BEAKER) (test stbd=109) EOSINOPHILS ABSOLUTE COUNT 0.07 K/ L 0.04-0.36 (BEAKER) (test tuss=101) BASOPHILS ABSOLUTE COUNT 0.03 K/ L 0.01-0.08 (BEAKER) (test whmo=887) IMMATURE GRANULOCYTES-RELATIVE 0 % 0-1 PERCENT (BEAKER) (test vcuo=0672) BASIC METABOLIC [id number] 06:01:00 Test Item Value Reference Range Comments SODIUM (BEAKER) (test 137 meq/L 136-145 fpyp=961) POTASSIUM (BEAKER) (test 3.7 meq/L 3.5-5.1 xmbv=227) CHLORIDE (BEAKER) (test 112 meq/L 98-107 eatr=961) CO2 (BEAKER) (test 17 meq/L 22-29 jhnm=975) BLOOD UREA NITROGEN 7 mg/dL 7-21 (BEAKER) (test teck=959) CREATININE (BEAKER) (test 0.64 mg/dL 0.57-1.25 bhrl=495) GLUCOSE RANDOM (BEAKER) 82 mg/dL 70-105 (test pejr=494) CALCIUM (BEAKER) (test 8.9 mg/dL 8.4-10.2 cquu=270) EGFR (BEAKER) (test 126 mL/min/1.73 sq m ESTIMATED GFR IS NOT nbks=5531) ACCURATE CREATININE CLEARANCE IN PREDICTING GLOMERULAR FILTRATION RATE. ESTIMATED GFR IS NOT APPLICABLE FOR DIALYSIS PATIENTS. CBC W/PLT COUNT & AUTO [id number] 22:22:00 Test Item Value Reference Range Comments WHITE BLOOD CELL COUNT 8.0 K/ L 3.5-10.5 (BEAKER) (test lxdg=307) RED BLOOD CELL COUNT (BEAKER) 4.53 M/ L 3.93-5.22 (test qrxg=183) HEMOGLOBIN (BEAKER) (test 10.5 GM/DL 11.2-15.7 pvii=582) HEMATOCRIT (BEAKER) (test 35.1 % 34.1-44.9 heyy=761) MEAN CORPUSCULAR VOLUME 77.5 fL 79.4-94.8 (BEAKER) (test fsim=161) MEAN CORPUSCULAR HEMOGLOBIN 23.2 pg 25.6-32.2 (BEAKER) (test xkaj=145) MEAN CORPUSCULAR HEMOGLOBIN 29.9 GM/DL 32.2-35.5 CONC (BEAKER) (test stlu=309) RED CELL DISTRIBUTION WIDTH 20.6 % 11.7-14.4 (BEAKER) (test deul=524) PLATELET COUNT (BEAKER) (test 97 K/CU MM 150-450 yicf=891) MEAN PLATELET VOLUME (BEAKER) fL 9.4-12.3 Unable to report due to (test zixm=432) abnormal Platelet population distribution. NUCLEATED RED BLOOD CELLS 0 /100 WBC 0-0 (BEAKER) (test jwkd=846) NEUTROPHILS RELATIVE PERCENT 80 % (BEAKER) (test uztp=159) LYMPHOCYTES RELATIVE PERCENT 16 % (BEAKER) (test ymsk=967) MONOCYTES RELATIVE PERCENT 4 % (BEAKER) (test xlvp=091) EOSINOPHILS RELATIVE PERCENT 0 % (BEAKER) (test mowy=521) BASOPHILS RELATIVE PERCENT 0 % (BEAKER) (test vjyk=629) NEUTROPHILS ABSOLUTE COUNT 6.41 K/ L 1.56-6.13 (BEAKER) (test hite=010) LYMPHOCYTES ABSOLUTE COUNT 1.24 K/ L 1.18-3.74 (BEAKER) (test qvys=050) MONOCYTES ABSOLUTE COUNT 0.32 K/ L 0.24-0.36 (BEAKER) (test wrlb=126) EOSINOPHILS ABSOLUTE COUNT 0.00 K/ L 0.04-0.36 (BEAKER) (test wwjt=857) BASOPHILS ABSOLUTE COUNT 0.01 K/ L 0.01-0.08 (BEAKER) (test udhu=799) IMMATURE GRANULOCYTES-RELATIVE 1 % 0-1 PERCENT (BEAKER) (test fcmq=0731) BASIC METABOLIC [id number] 21:08:00 Test Item Value Reference Range Comments SODIUM (BEAKER) (test 135 meq/L 136-145 oixf=593) POTASSIUM (BEAKER) (test 4.4 meq/L 3.5-5.1 cxoa=438) CHLORIDE (BEAKER) (test 111 meq/L 98-107 jemn=903) CO2 (BEAKER) (test 15 meq/L 22-29 anzb=008) BLOOD UREA NITROGEN 7 mg/dL 7-21 (BEAKER) (test uqcq=214) CREATININE (BEAKER) (test 0.62 mg/dL 0.57-1.25 ddro=887) GLUCOSE RANDOM (BEAKER) 95 mg/dL 70-105 (test xhdb=620) CALCIUM (BEAKER) (test 8.9 mg/dL 8.4-10.2 qpwc=015) EGFR (BEAKER) (test 131 mL/min/1.73 sq m ESTIMATED GFR IS NOT uako=0377) ACCURATE CREATININE CLEARANCE IN PREDICTING GLOMERULAR FILTRATION RATE. ESTIMATED GFR IS NOT APPLICABLE FOR DIALYSIS PATIENTS. RAD, CHEST, 1 VIEW, NON [id number] 13:37:00Reason for exam:->eval for pneumothoraxReason for exam:->in [...] Charanjit [place] Verified Date/Time: 13:37:49 Reading Location: [facility] Radiology Reading Room CBC W/PLT COUNT & amp; AUTO [id number] 09:50:00 Test Item Value Reference Range Comments WHITE BLOOD CELL COUNT 5.8 K/ L 3.5-10.5 (BEAKER) (test rddo=273) RED BLOOD CELL COUNT (BEAKER) 4.38 M/ L 3.93-5.22 (test tokb=278) HEMOGLOBIN (BEAKER) (test 10.3 GM/DL 11.2-15.7 gyex=698) HEMATOCRIT (BEAKER) (test 33.7 % 34.1-44.9 pufl=304) MEAN CORPUSCULAR VOLUME 76.9 fL 79.4-94.8 (BEAKER) (test jjdu=013) MEAN CORPUSCULAR HEMOGLOBIN 23.5 pg 25.6-32.2 (BEAKER) (test hxoz=321) MEAN CORPUSCULAR HEMOGLOBIN 30.6 GM/DL 32.2-35.5 CONC (BEAKER) (test rdlu=304) RED CELL DISTRIBUTION WIDTH 20.5 % 11.7-14.4 (BEAKER) (test ycnc=621) PLATELET COUNT (BEAKER) (test K/CU MM 150-450 Platelet clumps hssg=351) present;unable to report true count. Platelet count should be recollected using an EDTA and CITRATE(blue) tube. MEAN PLATELET VOLUME (BEAKER) fL 9.4-12.3 Unable to report due to (test nvap=380) abnormal Platelet population distribution. NUCLEATED RED BLOOD CELLS 0 /100 WBC 0-0 (BEAKER) (test fyjf=171) NEUTROPHILS RELATIVE PERCENT 47 % (BEAKER) (test rvuu=262) LYMPHOCYTES RELATIVE PERCENT 33 % (BEAKER) (test krpt=910) MONOCYTES RELATIVE PERCENT 12 % (BEAKER) (test mcye=893) EOSINOPHILS RELATIVE PERCENT 8 % (BEAKER) (test gppe=540) BASOPHILS RELATIVE PERCENT 0 % (BEAKER) (test bjus=715) NEUTROPHILS ABSOLUTE COUNT 2.70 K/ L 1.56-6.13 (BEAKER) (test qirf=047) LYMPHOCYTES ABSOLUTE COUNT 1.90 K/ L 1.18-3.74 (BEAKER) (test zpji=955) MONOCYTES ABSOLUTE COUNT 0.66 K/ L 0.24-0.36 (BEAKER) (test vyey=413) EOSINOPHILS ABSOLUTE COUNT 0.45 K/ L 0.04-0.36 (BEAKER) (test cqto=928) BASOPHILS ABSOLUTE COUNT 0.02 K/ L 0.01-0.08 (BEAKER) (test ureb=756) IMMATURE GRANULOCYTES-RELATIVE 0 % 0-1 PERCENT (BEAKER) (test nlzd=1725) FL, ELECTRIC SHIPYARD OPERATOR IN OR/30 MINUTE [id number] 09:43:00Reason for exam:-> PCNLIs the patient ?->NoWhen [...] Pulido [place]eport Verified Date/Time: 2017 09:43:00 Reading Location:[facility] Radiology Reading Room 09:43 AMBASIC METABOLIC [id number] 07:59:00 Test Item Value Reference Range Comments SODIUM (BEAKER) (test 135 meq/L 136-145 czqs=673) POTASSIUM (BEAKER) (test 4.2 meq/L 3.5-5.1 fhnc=591) CHLORIDE (BEAKER) (test 110 meq/L 98-107 fepd=198) CO2 (BEAKER) (test 18 meq/L 22-29 bmuy=657) BLOOD UREA NITROGEN 7 mg/dL 7-21 (BEAKER) (test qhhh=775) CREATININE (BEAKER) (test 0.63 mg/dL 0.57-1.25 tplx=637) GLUCOSE RANDOM (BEAKER) 84 mg/dL 70-105 (test gqvr=712) CALCIUM (BEAKER) (test 8.6 mg/dL 8.4-10.2 ewqz=735) EGFR (BEAKER) (test 128 mL/min/1.73 sq m ESTIMATED GFR IS NOT fgrp=7150) ACCURATE CREATININE CLEARANCE IN PREDICTING GLOMERULAR FILTRATION RATE. ESTIMATED GFR IS NOT APPLICABLE FOR DIALYSIS PATIENTS. HEMOGLOBIN AND [id number] 14:41:00 Test Item Value Reference Range Comments HEMOGLOBIN (BEAKER) (test lkrd=432) 6.5 GM/DL 11.2-15.7 HEMATOCRIT (BEAKER) (test lqvx=945) 23.1 % 34.1-44.9 BASIC METABOLIC [id number] 08:36:00 Test Item Value Reference Range Comments SODIUM (BEAKER) (test 135 meq/L 136-145 bsqh=739) POTASSIUM (BEAKER) (test 4.1 meq/L 3.5-5.1 crqs=742) CHLORIDE (BEAKER) (test 111 meq/L 98-107 zubx=745) CO2 (BEAKER) (test 18 meq/L 22-29 nxub=666) BLOOD UREA NITROGEN 8 mg/dL 7-21 (BEAKER) (test zndq=708) CREATININE (BEAKER) (test 0.61 mg/dL 0.57-1.25 idbx=829) GLUCOSE RANDOM (BEAKER) 75 mg/dL 70-105 (test vnxo=495) CALCIUM (BEAKER) (test 8.4 mg/dL 8.4-10.2 esux=952) EGFR (BEAKER) (test 133 mL/min/1.73 sq m ESTIMATED GFR IS NOT mujp=5818) ACCURATE CREATININE CLEARANCE IN PREDICTING GLOMERULAR FILTRATION RATE. ESTIMATED GFR IS NOT APPLICABLE FOR DIALYSIS PATIENTS. CBC W/PLT COUNT & AUTO [id number] 05:49:00 Test Item Value Reference Range Comments WHITE BLOOD CELL COUNT (BEAKER) (test rhlc=410) 5.1 K/ L 3.5-10.5 RED BLOOD CELL COUNT (BEAKER) (test wjgq=612) 3.14 M/ L 3.93-5.22 HEMOGLOBIN (BEAKER) (test ozrw=462) 6.3 GM/DL 11.2-15.7 HEMATOCRIT (BEAKER) (test drnm=705) 22.8 % 34.1-44.9 MEAN CORPUSCULAR VOLUME (BEAKER) (test gnfw=029) 72.6 fL 79.4-94.8 MEAN CORPUSCULAR HEMOGLOBIN (BEAKER) (test 20.1 pg 25.6-32.2 ilii=968) MEAN CORPUSCULAR HEMOGLOBIN CONC (BEAKER) (test 27.6 GM/DL 32.2-35.5 fygs=097) RED CELL DISTRIBUTION WIDTH (BEAKER) (test 20.5 % 11.7-14.4 betu=810) PLATELET COUNT (BEAKER) (test quox=270) 426 K/CU MM 150-450 MEAN PLATELET VOLUME (BEAKER) (test loch=432) 10.9 fL 9.4-12.3 NUCLEATED RED BLOOD CELLS (BEAKER) (test 0 /100 WBC 0-0 ncbq=957) NEUTROPHILS RELATIVE PERCENT (BEAKER) (test 47 % brcs=594) LYMPHOCYTES RELATIVE PERCENT (BEAKER) (test 30 % hwej=998) MONOCYTES RELATIVE PERCENT (BEAKER) (test 13 % rbdd=995) EOSINOPHILS RELATIVE PERCENT (BEAKER) (test 10 % gfpe=766) BASOPHILS RELATIVE PERCENT (BEAKER) (test 0 % xoew=974) NEUTROPHILS ABSOLUTE COUNT (BEAKER) (test 2.35 K/ L 1.56-6.13 gyys=659) LYMPHOCYTES ABSOLUTE COUNT (BEAKER) (test 1.53 K/ L 1.18-3.74 kvmt=750) MONOCYTES ABSOLUTE COUNT (BEAKER) (test 0.67 K/ L 0.24-0.36 ymob=306) EOSINOPHILS ABSOLUTE COUNT (BEAKER) (test 0.48 K/ L 0.04-0.36 ipzq=192) BASOPHILS ABSOLUTE COUNT (BEAKER) (test 0.01 K/ L 0.01-0.08 phiu=167) IMMATURE GRANULOCYTES-RELATIVE PERCENT (BEAKER) 0 % 0-1 (test gyna=8064) HEMOGLOBIN AND [id number] 14:34:00 Test Item Value Reference Range Comments HEMOGLOBIN (BEAKER) (test rphy=403) 7.0 GM/DL 11.2-15.7 HEMATOCRIT (BEAKER) (test rliv=389) 24.7 % 34.1-44.9 CBC W/PLT COUNT & AUTO [id number] 10:55:00 Test Item Value Reference Range Comments WHITE BLOOD CELL COUNT 6.0 K/ L 3.5-10.5 (BEAKER) (test prte=842) RED BLOOD CELL COUNT (BEAKER) 3.59 M/ L 3.93-5.22 (test udic=449) HEMOGLOBIN (BEAKER) (test 7.3 GM/DL 11.2-15.7 btkl=366) HEMATOCRIT (BEAKER) (test 25.9 % 34.1-44.9 xxmo=904) MEAN CORPUSCULAR VOLUME 72.1 fL 79.4-94.8 (BEAKER) (test ddvp=165) MEAN CORPUSCULAR HEMOGLOBIN 20.3 pg 25.6-32.2 (BEAKER) (test sdrp=520) MEAN CORPUSCULAR HEMOGLOBIN 28.2 GM/DL 32.2-35.5 CONC (BEAKER) (test elpf=281) RED CELL DISTRIBUTION WIDTH 20.2 % 11.7-14.4 (BEAKER) (test skzw=680) PLATELET COUNT (BEAKER) (test 592 K/CU MM 150-450 Platelets count from ekzr=807) citrated tube. MEAN PLATELET VOLUME (BEAKER) 9.4 fL 9.4-12.3 (test pghc=847) NUCLEATED RED BLOOD CELLS 0 /100 WBC 0-0 (BEAKER) (test xswf=908) NEUTROPHILS RELATIVE PERCENT 56 % (BEAKER) (test aufp=883) LYMPHOCYTES RELATIVE PERCENT 26 % (BEAKER) (test iwjr=459) MONOCYTES RELATIVE PERCENT 10 % (BEAKER) (test wdbx=852) EOSINOPHILS RELATIVE PERCENT 8 % (BEAKER) (test irui=464) BASOPHILS RELATIVE PERCENT 0 % (BEAKER) (test lxgx=989) NEUTROPHILS ABSOLUTE COUNT 3.35 K/ L 1.56-6.13 (BEAKER) (test maqu=744) LYMPHOCYTES ABSOLUTE COUNT 1.53 K/ L 1.18-3.74 (BEAKER) (test pfyi=383) MONOCYTES ABSOLUTE COUNT 0.60 K/ L 0.24-0.36 (BEAKER) (test kxnp=974) EOSINOPHILS ABSOLUTE COUNT 0.47 K/ L 0.04-0.36 (BEAKER) (test ahtn=282) BASOPHILS ABSOLUTE COUNT 0.02 K/ L 0.01-0.08 (BEAKER) (test bkqq=412) IMMATURE GRANULOCYTES-RELATIVE 0 % 0-1 PERCENT (BEAKER) (test nvlf=5405) BASIC METABOLIC [id number] 06:21:00 Test Item Value Reference Range Comments SODIUM (BEAKER) (test 138 meq/L 136-145 pxnt=284) POTASSIUM (BEAKER) (test 4.6 meq/L 3.5-5.1 Specimen slightly oxzd=098) hemolyzed CHLORIDE (BEAKER) (test 114 meq/L 98-107 dbph=908) CO2 (BEAKER) (test 15 meq/L 22-29 gzkz=382) BLOOD UREA NITROGEN 9 mg/dL 7-21 (BEAKER) (test rhwg=166) CREATININE (BEAKER) (test 0.67 mg/dL 0.57-1.25 Specimen slightly agiq=291) hemolyzed GLUCOSE RANDOM (BEAKER) 81 mg/dL 70-105 (test vfvf=888) CALCIUM (BEAKER) (test 8.6 mg/dL 8.4-10.2 dzzh=153) EGFR (BEAKER) (test 119 mL/min/1.73 sq m ESTIMATED GFR IS NOT fmhk=1324) ACCURATE CREATININE CLEARANCE IN PREDICTING GLOMERULAR FILTRATION RATE. ESTIMATED GFR IS NOT APPLICABLE FOR DIALYSIS PATIENTS. CBC W/PLT COUNT & AUTO [id number] 14:39:00 Test Item Value Reference Range Comments WHITE BLOOD CELL COUNT 5.3 K/ L 3.5-10.5 (BEAKER) (test plpw=660) RED BLOOD CELL COUNT (BEAKER) 3.55 M/ L 3.93-5.22 (test qili=974) HEMOGLOBIN (BEAKER) (test 7.3 GM/DL 11.2-15.7 ettp=845) HEMATOCRIT (BEAKER) (test 25.9 % 34.1-44.9 hjgk=175) MEAN CORPUSCULAR VOLUME 73.0 fL 79.4-94.8 (BEAKER) (test cech=458) MEAN CORPUSCULAR HEMOGLOBIN 20.6 pg 25.6-32.2 (BEAKER) (test oyye=661) MEAN CORPUSCULAR HEMOGLOBIN 28.2 GM/DL 32.2-35.5 CONC (BEAKER) (test myck=105) RED CELL DISTRIBUTION WIDTH 20.3 % 11.7-14.4 (BEAKER) (test ivsg=877) PLATELET COUNT (BEAKER) (test 554 K/CU MM 150-450 Platelet Clumps present. hzde=653) Unable to report true count on Purple top. Platelet Count using citrate tube MEAN PLATELET VOLUME (BEAKER) fL 9.4-12.3 Unable to report due to (test ecxq=223) abnormal Platelet population distribution. NUCLEATED RED BLOOD CELLS 0 /100 WBC 0-0 (BEAKER) (test hhtf=404) NEUTROPHILS RELATIVE PERCENT 61 % (BEAKER) (test fphw=677) LYMPHOCYTES RELATIVE PERCENT 25 % (BEAKER) (test jrod=856) MONOCYTES RELATIVE PERCENT 8 % (BEAKER) (test qacv=892) EOSINOPHILS RELATIVE PERCENT 6 % (BEAKER) (test thtw=662) BASOPHILS RELATIVE PERCENT 0 % (BEAKER) (test ypvs=600) NEUTROPHILS ABSOLUTE COUNT 3.25 K/ L 1.56-6.13 (BEAKER) (test apxa=328) LYMPHOCYTES ABSOLUTE COUNT 1.32 K/ L 1.18-3.74 (BEAKER) (test rwcp=363) MONOCYTES ABSOLUTE COUNT 0.40 K/ L 0.24-0.36 (BEAKER) (test gghz=773) EOSINOPHILS ABSOLUTE COUNT 0.34 K/ L 0.04-0.36 (BEAKER) (test pywa=431) BASOPHILS ABSOLUTE COUNT 0.01 K/ L 0.01-0.08 (BEAKER) (test btxl=529) IMMATURE GRANULOCYTES-RELATIVE 0 % 0-1 PERCENT (BEAKER) (test vyej=5038) RAD, CHEST, 1 VIEW, NON [id number] 10:16:00Reason for exam:->Post Power PICC insertion RUE for tip verificationShould this be performed at the bedside?- >YesFINAL REPORT AP chest HISTORY: PICC placement COMPARISON: None IMPRESSION:Right arm PICC present with tip at upper SVC. SVC filter present. 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 Grossly normal cardiac silhouette. Right lung clear. Moderate left effusion. Signed: Satish Kerr MDReport VerifiedDate/Time: 06/25/2018 10:16:18 Reading Location: [facility] B1 [id number] Ortho Consult Reading Room BASIC METABOLIC [id number] 09:58:00 Test Item Value Reference Range Comments SODIUM (BEAKER) (test 136 meq/L 136-145 dzin=472) POTASSIUM (BEAKER) (test 4.4 meq/L 3.5-5.1 Specimen slightly nxcm=778) hemolyzed CHLORIDE (BEAKER) (test 107 meq/L 98-107 vphz=435) CO2 (BEAKER) (test 23 meq/L 22-29 cfeh=358) BLOOD UREA NITROGEN 11 mg/dL 7-21 (BEAKER) (test fmmo=488) CREATININE (BEAKER) (test 0.68 mg/dL 0.57-1.25 Specimen slightly dcxa=145) hemolyzed GLUCOSE RANDOM (BEAKER) 92 mg/dL 70-105 (test teoh=745) CALCIUM (BEAKER) (test 8.9 mg/dL 8.4-10.2 nntz=319) EGFR (BEAKER) (test 117 mL/min/1.73 sq m ESTIMATED GFR IS NOT sdfz=8813) ACCURATE CREATININE CLEARANCE IN PREDICTING GLOMERULAR FILTRATION RATE. ESTIMATED GFR IS NOT APPLICABLE FOR DIALYSIS PATIENTS. CBC W/PLT COUNT & AUTO [id number] 13:38:00 Test Item Value Reference Range Comments WHITE BLOOD CELL COUNT 7.5 K/ L 3.5-10.5 (BEAKER) (test aesj=000) RED BLOOD CELL COUNT (BEAKER) 4.45 M/ L 3.93-5.22 (test epwd=018) HEMOGLOBIN (BEAKER) (test 9.2 GM/DL 11.2-15.7 kvkv=176) HEMATOCRIT (BEAKER) (test 32.4 % 34.1-44.9 czcj=184) MEAN CORPUSCULAR VOLUME 72.8 fL 79.4-94.8 (BEAKER) (test dpif=974) MEAN CORPUSCULAR HEMOGLOBIN 20.7 pg 25.6-32.2 (BEAKER) (test uezb=439) MEAN CORPUSCULAR HEMOGLOBIN 28.4 GM/DL 32.2-35.5 CONC (BEAKER) (test dhug=015) RED CELL DISTRIBUTION WIDTH 20.6 % 11.7-14.4 (BEAKER) (test kzjz=195) PLATELET COUNT (BEAKER) (test 275 K/CU MM 150-450 eiva=566) MEAN PLATELET VOLUME (BEAKER) fL 9.4-12.3 Unable to report due to (test hnyr=921) abnormal Platelet population distribution. NUCLEATED RED BLOOD CELLS 0 /100 WBC 0-0 (BEAKER) (test xanf=996) NEUTROPHILS RELATIVE PERCENT 65 % (BEAKER) (test fcjm=449) LYMPHOCYTES RELATIVE PERCENT 23 % (BEAKER) (test qptd=428) MONOCYTES RELATIVE PERCENT 8 % (BEAKER) (test wjqz=071) EOSINOPHILS RELATIVE PERCENT 4 % (BEAKER) (test thjs=348) BASOPHILS RELATIVE PERCENT 0 % (BEAKER) (test molf=506) NEUTROPHILS ABSOLUTE COUNT 4.86 K/ L 1.56-6.13 (BEAKER) (test juib=468) LYMPHOCYTES ABSOLUTE COUNT 1.69 K/ L 1.18-3.74 (BEAKER) (test nxjn=322) MONOCYTES ABSOLUTE COUNT 0.60 K/ L 0.24-0.36 (BEAKER) (test ygxj=570) EOSINOPHILS ABSOLUTE COUNT 0.30 K/ L 0.04-0.36 (BEAKER) (test fmep=309) BASOPHILS ABSOLUTE COUNT 0.02 K/ L 0.01-0.08 (BEAKER) (test kgjd=058) IMMATURE GRANULOCYTES-RELATIVE 0 % 0-1 PERCENT (BEAKER) (test aail=9642) BASIC METABOLIC [id number] 13:03:00 Test Item Value Reference Range Comments SODIUM (BEAKER) (test 134 meq/L 136-145 opgn=361) POTASSIUM (BEAKER) (test 4.3 meq/L 3.5-5.1 dqsx=156) CHLORIDE (BEAKER) (test 104 meq/L 98-107 aezc=452) CO2 (BEAKER) (test 19 meq/L 22-29 equs=937) BLOOD UREA NITROGEN 11 mg/dL 7-21 (BEAKER) (test mbgp=728) CREATININE (BEAKER) (test 0.72 mg/dL 0.57-1.25 ewop=580) GLUCOSE RANDOM (BEAKER) 82 mg/dL 70-105 (test qxft=787) CALCIUM (BEAKER) (test 9.7 mg/dL 8.4-10.2 jzbe=452) EGFR (BEAKER) (test 110 mL/min/1.73 sq m ESTIMATED GFR IS NOT weil=5631) ACCURATE CREATININE CLEARANCE IN PREDICTING GLOMERULAR FILTRATION RATE. ESTIMATED GFR IS NOT APPLICABLE FOR DIALYSIS PATIENTS. BODY FLUID CULTURE + GRAM [id number] 16:53:00 Test Item Value Reference Range Comments CULTURE (BEAKER) (test ENTEROBACTER CLOACAE 2+ Enterobacter szcx=0074) COMPLEX cloacae complexESBL PositiveAmpC Positive Amikacin (test code=1) Aztreonam (test code=32) Cefepime (test code=51) Cefoxitin (test code=68) Ceftazidime (test code=27) Ceftriaxone (test code=52) Ertapenem (test code=38) Gentamicin (test code=18) Levofloxacin (test code=22) Meropenem (test code=34) Nitrofurantoin (test code=23) Piperacillin + Tazobactam (test code=29) Tetracycline (test code=2) Tobramycin (test code=25) Trimethoprim + Sulfamethoxazole (test code=47) CULTURE (BEAKER) (test ENTEROCOCCUS SPECIES 2+ Enterococcus ykme=2990) species Ampicillin (test code=26) Linezolid (test code=40) Vancomycin (test code=13) CULTURE (BEAKER) (test 2+ Katie xojd=1372) parapsilosis GRAM STAIN RESULT (BEAKER) No organisms seen (test iosf=7306) GRAM STAIN RESULT (BEAKER) 1+ White blood cells (test truh=[id number]) seen URINE [id number] 10:14:00 Test Item Value Reference Range Comments CULTURE (BEAKER) (test ENTEROBACTER CLOACAE >100,000 col/mL ncfv=6275) COMPLEX Enterobacter cloacae complex Amikacin (test code=1) Aztreonam (test code=32) Cefepime (test code=51) Cefoxitin (test code=68) Ceftazidime (test code=27) Ceftriaxone (test code=52) Gentamicin (test code=18) Levofloxacin (test code=22) Meropenem (test code=34) Nitrofurantoin (test code=23) Piperacillin + Tazobactam (test code=29) Tetracycline (test code=2) Tobramycin (test code=25) Trimethoprim + Sulfamethoxazole (test code=47) CULTURE (BEAKER) (test PSEUDOMONAS 30-39,000 col/mL xwvs=2796) AERUGINOSA Pseudomonas aeruginosa Amikacin (test code=1) Susceptible [...] CULTURE (BEAKER) (test ENTEROCOCCUS SPECIES 50-59,000 col/mL ciza=0161) Enterococcus species Ampicillin (test code=26) Linezolid (test code=40) Nitrofurantoin (test code=23) Tetracycline (test code=2) Vancomycin (test code=13) BLOOD [id number] 11:00:00 Test Item Value Reference Range Comments CULTURE (BEAKER) (test ubuv=4065) No growth in 5 days BLOOD [id number] 06:00:00 Test Item Value Reference Range Comments CULTURE (BEAKER) (test ebly=0187) No growth in 5 days BASIC METABOLIC [id number] 04:43:00 Test Item Value Reference Range Comments SODIUM (BEAKER) (test 141 meq/L 136-145 wnua=551) POTASSIUM (BEAKER) (test 3.7 meq/L 3.5-5.1 fmvk=259) CHLORIDE (BEAKER) (test 112 meq/L 98-107 xnkp=586) CO2 (BEAKER) (test 21 meq/L 22-29 ebqj=851) BLOOD UREA NITROGEN 12 mg/dL 7-21 (BEAKER) (test urpt=694) CREATININE (BEAKER) (test 0.63 mg/dL 0.57-1.25 jqdm=368) GLUCOSE RANDOM (BEAKER) 83 mg/dL 70-105 (test hpnu=763) CALCIUM (BEAKER) (test 8.9 mg/dL 8.4-10.2 qgnh=566) EGFR (BEAKER) (test 128 mL/min/1.73 sq m ESTIMATED GFR IS NOT jjxk=4731) ACCURATE CREATININE CLEARANCE IN PREDICTING GLOMERULAR FILTRATION RATE. ESTIMATED GFR IS NOT APPLICABLE FOR DIALYSIS PATIENTS. URINALYSIS W/ REFLEX URINE [id number] 15:11:00 Test Item Value Reference Range Comments COLOR (BEAKER) (test bqql=020) [place] CLARITY (BEAKER) (test kdse=181) Hazy SPECIFIC GRAVITY UA (BEAKER) (test pcca=055) 1.013 1.001-1.035 PH UA (BEAKER) (test arki=775) 6.0 5.0-8.0 PROTEIN UA (BEAKER) (test dlen=040) 100 mg/dL Negative GLUCOSE UA (BEAKER) (test sdvn=210) Negative Negative KETONES UA (BEAKER) (test hxbs=771) Trace Negative BILIRUBIN UA (BEAKER) (test otfo=349) Negative Negative BLOOD UA (BEAKER) (test wykr=783) Large Negative NITRITE UA (BEAKER) (test wsah=843) Negative Negative LEUKOCYTE ESTERASE UA (BEAKER) (test ftbk=499) Large Negative UROBILINOGEN UA (BEAKER) (test rjbz=425) 0.2 mg/dL 0.2-1.0 RBC UA (BEAKER) (test fywi=918) > /HPF WBC UA (BEAKER) (test pthp=853) 68 /HPF MUCUS (BEAKER) (test ceul=5169) Rare SOURCE(BEAKER) (test vrpt=8919) ANG, NEPHROSTOMY, PERC, EXTERNAL [id number] 13:43:00Reason for exam:-> right obstructing stone with UTI, needs right PCNU if possible or PCN if notFINAL REPORT Fluoroscopic and ultrasound guided right nephroureterostomy tube placement, 06/12/2018. Clinical History: Obstructing stone at the junction of the right distal ureter and ileoconduit with hydronephrosis and urosepsis. Patient has a history of spina bifida/caudal regression. Modality: Sonography and fluoroscopy Immunopathologist: Faisal Felix MD. Ivf Embryologist: None. Sedation: General anesthesia provided by the [...] then removed. The tract wasdilated to 8 [place]. An 8.5 [place] by 28 cm nephroureterostomy catheter was then [...] guided right nephroureterostomy tube placement. Signed: Faisal Felixeport Verified Date/Time: 06/12/2018 13:43:17 Reading Location: [facility] [id number] Angio Body Reading Room CBC (HEMOGRAM ONLY)2018-06-12 10:29:00 Test Item Value Reference Range Comments WHITE BLOOD CELL COUNT (BEAKER) 8.5 K/ L 3.5-10.5 (test aaih=802) RED BLOOD CELL COUNT (BEAKER) 4.23 M/ L 3.93-5.22 (test oqic=390) HEMOGLOBIN (BEAKER) (test 9.1 GM/DL 11.2-15.7 rvov=827) HEMATOCRIT (BEAKER) (test 31.4 % 34.1-44.9 feuz=081) MEAN CORPUSCULAR VOLUME 74.2 fL 79.4-94.8 (BEAKER) (test trbq=451) MEAN CORPUSCULAR HEMOGLOBIN 21.5 pg 25.6-32.2 (BEAKER) (test lylf=669) MEAN CORPUSCULAR HEMOGLOBIN 29.0 GM/DL 32.2-35.5 CONC (BEAKER) (test hbop=594) RED CELL DISTRIBUTION WIDTH 20.4 % 11.7-14.4 (BEAKER) (test whke=935) PLATELET COUNT (BEAKER) (test K/CU MM 150-450 Platelet clumps present, kkwl=793) unable to report true platelet. Recommend recollect using EDTA tube and blue (Citrate) tube. spoke to RN ID:[id number] NUCLEATED RED BLOOD CELLS 0 /100 WBC 0-0 (BEAKER) (test esqs=546) BASIC METABOLIC [id number] 06:52:00 Test Item Value Reference Range Comments SODIUM (BEAKER) (test 137 meq/L 136-145 yolj=064) POTASSIUM (BEAKER) (test 3.6 meq/L 3.5-5.1 nrkl=263) CHLORIDE (BEAKER) (test 108 meq/L 98-107 gvwg=334) CO2 (BEAKER) (test 20 meq/L 22-29 ctch=631) BLOOD UREA NITROGEN 14 mg/dL 7-21 (BEAKER) (test aqyv=431) CREATININE (BEAKER) (test 0.66 mg/dL 0.57-1.25 skee=967) GLUCOSE RANDOM (BEAKER) 87 mg/dL 70-105 (test speq=224) CALCIUM (BEAKER) (test 9.1 mg/dL 8.4-10.2 nxjf=371) EGFR (BEAKER) (test 121 mL/min/1.73 sq m ESTIMATED GFR IS NOT hobh=7159) ACCURATE CREATININE CLEARANCE IN PREDICTING GLOMERULAR FILTRATION RATE. ESTIMATED GFR IS NOT APPLICABLE FOR DIALYSIS PATIENTS. PT/[id number] 06:37:00 Test Item Value Reference Range Comments PROTIME (BEAKER) (test ehrc=178) 14.4 seconds 11.7-14.7 INR (BEAKER) (test rdua=608) 1.1 <=5.9 PARTIAL THROMBOPLASTIN TIME (BEAKER) (test 30.8 seconds 22.5-36.0 fomi=735) RECOMMENDED COUMADIN/WARFARIN INR THERAPY RANGESSTANDARD DOSE: 2.0 - 3.0 Includes: PROPHYLAXIS forvenous thrombosis, systemic embolization; TREATMENT for venous thrombosis and/or pulmonary embolus.HIGH RISK: Target INR is 2.5-3.5 for patients with mechanical heart valves.CT, [id number] 18:04:00FINAL REPORT CT scan of the abdomen [...] MDReport Verified Date/Time: 06/11/2018 18:04:02 Reading Location: [facility] [id number] Ortho Consult Reading Room PREGNANCY SCREEN, [id number] 15:46:00 Test Item Value Reference Range Comments TEST URINE (BEAKER) (test kofv=135) Negative URINALYSIS W/ REFLEX URINE [id number] 12:32:00 Test Item Value Reference Range Comments COLOR (BEAKER) (test biil=149) Light Yellow CLARITY (BEAKER) (test agvk=466) Cloudy SPECIFIC GRAVITY UA (BEAKER) (test cjet=905) 1.013 1.001-1.035 PH UA (BEAKER) (test wlkc=366) 7.5 5.0-8.0 PROTEIN UA (BEAKER) (test huzc=978) 30 mg/dL Negative GLUCOSE UA (BEAKER) (test gbaw=497) Negative Negative KETONES UA (BEAKER) (test rqxc=369) Trace Negative BILIRUBIN UA (BEAKER) (test mgwy=429) Negative Negative BLOOD UA (BEAKER) (test nkct=184) Small Negative NITRITE UA (BEAKER) (test aaon=974) Positive Negative LEUKOCYTE ESTERASE UA (BEAKER) (test bgcr=788) Large Negative UROBILINOGEN UA (BEAKER) (test iylz=062) 0.2 mg/dL 0.2-1.0 RBC UA (BEAKER) (test ahsp=995) 2 /HPF WBC UA (BEAKER) (test dodl=537) 5 /HPF BACTERIA (BEAKER) (test nqdj=690) Occasional MUCUS (BEAKER) (test ulqy=4858) Rare SQUAMOUS EPITHELIAL (BEAKER) (test khor=300) 1 /HPF HYALINE CASTS (BEAKER) (test peyb=685) 2 /LPF SOURCE(BEAKER) (test cels=7873) URINALYSIS W/ [id number] 12:32:00 Test Item Value Reference Range Comments COLOR (BEAKER) (test exxg=895) Yellow CLARITY (BEAKER) (test uamg=598) Hazy SPECIFIC GRAVITY UA (BEAKER) (test phrn=001) 1.012 1.001-1.035 PH UA (BEAKER) (test qjwu=758) 8.0 5.0-8.0 PROTEIN UA (BEAKER) (test vuwd=436) 50 mg/dL Negative GLUCOSE UA (BEAKER) (test fgtk=403) Negative Negative KETONES UA (BEAKER) (test nnxb=563) Negative Negative BILIRUBIN UA (BEAKER) (test zmux=049) Negative Negative BLOOD UA (BEAKER) (test vteo=528) Moderate Negative NITRITE UA (BEAKER) (test rknp=269) Positive Negative LEUKOCYTE ESTERASE UA (BEAKER) (test Large Negative syhz=190) UROBILINOGEN UA (BEAKER) (test qnos=720) 0.2 mg/dL 0.2-1.0 RBC UA (BEAKER) (test oofg=893) 6 /HPF WBC UA (BEAKER) (test fjzq=503) 10 /HPF BACTERIA (BEAKER) (test dvrn=003) Many MUCUS (BEAKER) (test sdya=8113) Many CRYSTALS, URINE (BEAKER) (test guqn=2244) Occasional SOURCE(BEAKER) (test ufau=8547) Urine, Urostomy BASIC METABOLIC [id number] 06:01:00 Test Item Value Reference Range Comments SODIUM (BEAKER) (test 139 meq/L 136-145 dkgh=621) POTASSIUM (BEAKER) (test 3.6 meq/L 3.5-5.1 trwg=976) CHLORIDE (BEAKER) (test 108 meq/L 98-107 ragu=479) CO2 (BEAKER) (test 23 meq/L 22-29 tebl=063) BLOOD UREA NITROGEN 12 mg/dL 7-21 (BEAKER) (test cfgx=726) CREATININE (BEAKER) (test 0.66 mg/dL 0.57-1.25 bmsv=013) GLUCOSE RANDOM (BEAKER) 75 mg/dL 70-105 (test jbyk=686) CALCIUM (BEAKER) (test 8.7 mg/dL 8.4-10.2 znrh=854) EGFR (BEAKER) (test 121 mL/min/1.73 sq m ESTIMATED GFR IS NOT qroe=9178) ACCURATE CREATININE CLEARANCE IN PREDICTING GLOMERULAR FILTRATION RATE. ESTIMATED GFR IS NOT APPLICABLE FOR DIALYSIS PATIENTS. LACTIC ACID, VENOUS, WHOLE [id number] 05:31:00 Test Item Value Reference Range Comments LACTATE BLOOD VENOUS (2) (BEAKER) (test 0.8 mmol/L 0.5-2.2 krtj=0870) Effective 01/01/2016: Units/Reference Range ChangeNew: 0.5-2.2 mmol/L Previous: 5 -20 mg/[id number] 05:20:00 Test Item Value Reference Range Comments PARTIAL THROMBOPLASTIN TIME (BEAKER) (test 35.9 seconds 22.5-36.0 dbrv=840) PROTHROMBIN [id number] 05:19:00 Test Item Value Reference Range Comments PROTIME (BEAKER) (test njfe=342) 16.4 seconds 11.7-14.7 INR (BEAKER) (test eoni=131) 1.3 <=5.9 RECOMMENDED COUMADIN/WARFARIN INR THERAPY RANGESSTANDARD DOSE: 2.0 - 3.0 Includes: PROPHYLAXIS forvenous thrombosis, systemic embolization; TREATMENT for venous thrombosis and/or pulmonary embolus.HIGH RISK: Target INR is 2.5-3.5 for patients with mechanical heart valves.CBC W/PLT COUNT & AUTO [id number] 05:08:00 Test Item Value Reference Range Comments WHITE BLOOD CELL COUNT 12.2 K/ L 3.5-10.5 (BEAKER) (test bpgf=569) RED BLOOD CELL COUNT (BEAKER) 4.90 M/ L 3.93-5.22 (test jeua=563) HEMOGLOBIN (BEAKER) (test 10.6 GM/DL 11.2-15.7 istn=519) HEMATOCRIT (BEAKER) (test 36.6 % 34.1-44.9 ronb=074) MEAN CORPUSCULAR VOLUME 74.7 fL 79.4-94.8 (BEAKER) (test iisl=517) MEAN CORPUSCULAR HEMOGLOBIN 21.6 pg 25.6-32.2 (BEAKER) (test uqpe=974) MEAN CORPUSCULAR HEMOGLOBIN 29.0 GM/DL 32.2-35.5 CONC (BEAKER) (test hhqw=941) RED CELL DISTRIBUTION WIDTH 20.5 % 11.7-14.4 (BEAKER) (test nahu=786) PLATELET COUNT (BEAKER) (test 340 K/CU MM 150-450 mwgz=262) MEAN PLATELET VOLUME (BEAKER) 9.4 fL 9.4-12.3 Discordant MPV result (test xgol=227) compared to previous one; Clinical correlation required. NUCLEATED RED BLOOD CELLS 0 /100 WBC 0-0 (BEAKER) (test lbgz=856) NEUTROPHILS RELATIVE PERCENT 89 % (BEAKER) (test fahw=609) LYMPHOCYTES RELATIVE PERCENT 5 % (BEAKER) (test tety=111) MONOCYTES RELATIVE PERCENT 4 % (BEAKER) (test xtoz=373) EOSINOPHILS RELATIVE PERCENT 2 % (BEAKER) (test voxr=685) BASOPHILS RELATIVE PERCENT 0 % (BEAKER) (test gvcj=622) NEUTROPHILS ABSOLUTE COUNT 10.83 K/ L 1.56-6.13 (BEAKER) (test muzu=272) LYMPHOCYTES ABSOLUTE COUNT 0.60 K/ L 1.18-3.74 (BEAKER) (test dwqk=963) MONOCYTES ABSOLUTE COUNT 0.45 K/ L 0.24-0.36 (BEAKER) (test zrjz=871) EOSINOPHILS ABSOLUTE COUNT 0.19 K/ L 0.04-0.36 (BEAKER) (test inme=995) BASOPHILS ABSOLUTE COUNT 0.03 K/ L 0.01-0.08 (BEAKER) (test duid=186) IMMATURE 1 % 0-1 GRANULOCYTES-RELATIVE PERCENT (BEAKER) (test etjy=0883) LACTIC ACID, ARTERIAL, WHOLE [id number] 02:05:00 Test Item Value Reference Range Comments LACTATE BLOOD ARTERIAL (2) 0.6 mmol/L 0.5-2.2 Specimen slightly hemolyzed (BEAKER) (test xxvs=8315) Effective 01/01/2016: Units/Reference Range ChangeNew: 0.5-2.2 mmol/L Previous: 5 -20 mg/[id number] 01:43:00 Test Item Value Reference Range Comments MAGNESIUM (BEAKER) (test 2.0 mg/dL 1.6-2.6 Specimen moderately hemolyzed gamc=414) [id number] 01:43:00 Test Item Value Reference Range Comments PHOSPHORUS (BEAKER) (test 3.0 mg/dL 2.3-4.7 Specimen moderately hemolyzed ffxg=050) COMPREHENSIVE METABOLIC [id number] 01:43:00 Test Item Value Reference Range Comments TOTAL PROTEIN (BEAKER) 7.3 gm/dL 6.0-8.3 Specimen moderately (test jwom=365) hemolyzed ALBUMIN (BEAKER) (test 3.3 g/dL 3.5-5.0 Specimen moderately dmyg=9311) hemolyzed ALKALINE PHOSPHATASE 56 U/L 40-150 (BEAKER) (test trrl=635) BILIRUBIN TOTAL (BEAKER) 0.4 mg/dL 0.2-1.2 Specimen moderately (test tmjy=682) hemolyzed SODIUM (BEAKER) (test 133 meq/L 136-145 gtvz=254) POTASSIUM (BEAKER) (test 4.5 meq/L 3.5-5.1 Specimen moderately jlgo=129) hemolyzed CHLORIDE (BEAKER) (test 108 meq/L 98-107 cblz=748) CO2 (BEAKER) (test 15 meq/L 22-29 knxf=730) BLOOD UREA NITROGEN 12 mg/dL 7-21 (BEAKER) (test sahi=074) CREATININE (BEAKER) (test 0.61 mg/dL 0.57-1.25 Specimen moderately epyc=768) hemolyzed GLUCOSE RANDOM (BEAKER) 92 mg/dL 70-105 (test lhgn=976) CALCIUM (BEAKER) (test 8.3 mg/dL 8.4-10.2 negm=140) AST (SGOT) (BEAKER) (test 35 U/L 5-34 Specimen moderately gctc=100) hemolyzed ALT (SGPT) (BEAKER) (test 14 U/L 6-55 Specimen moderately qgat=515) hemolyzed EGFR (BEAKER) (test 133 mL/min/1.73 sq ESTIMATED GFR IS NOT odxw=7604) m ACCURATE CREATININE CLEARANCE IN PREDICTING GLOMERULAR FILTRATION RATE. ESTIMATED GFR IS NOT APPLICABLE FOR DIALYSIS PATIENTS. CBC W/PLT COUNT & AUTO [id number] 01:20:00 Test Item Value Reference Range Comments WHITE BLOOD CELL COUNT (BEAKER) (test xhvb=037) 21.0 K/ L 3.5-10.5 RED BLOOD CELL COUNT (BEAKER) (test fgsv=576) 3.83 M/ L 3.93-5.22 HEMOGLOBIN (BEAKER) (test dryn=870) 8.4 GM/DL 11.2-15.7 HEMATOCRIT (BEAKER) (test ugvo=639) 28.3 % 34.1-44.9 MEAN CORPUSCULAR VOLUME (BEAKER) (test czxk=884) 73.9 fL 79.4-94.8 MEAN CORPUSCULAR HEMOGLOBIN (BEAKER) (test 21.9 pg 25.6-32.2 alqo=480) MEAN CORPUSCULAR HEMOGLOBIN CONC (BEAKER) (test 29.7 GM/DL 32.2-35.5 bzma=496) RED CELL DISTRIBUTION WIDTH (BEAKER) (test 20.3 % 11.7-14.4 jerj=078) PLATELET COUNT (BEAKER) (test xfoi=948) 398 K/CU MM 150-450 MEAN PLATELET VOLUME (BEAKER) (test ppfv=740) 10.2 fL 9.4-12.3 NUCLEATED RED BLOOD CELLS (BEAKER) (test 0 /100 WBC 0-0 tarv=203) NEUTROPHILS RELATIVE PERCENT (BEAKER) (test 87 % hkgh=078) LYMPHOCYTES RELATIVE PERCENT (BEAKER) (test 6 % atvm=659) MONOCYTES RELATIVE PERCENT (BEAKER) (test 6 % wzfe=412) EOSINOPHILS RELATIVE PERCENT (BEAKER) (test 1 % baeq=444) BASOPHILS RELATIVE PERCENT (BEAKER) (test 0 % sevz=875) NEUTROPHILS ABSOLUTE COUNT (BEAKER) (test 18.34 K/ L 1.56-6.13 vjqs=694) LYMPHOCYTES ABSOLUTE COUNT (BEAKER) (test 1.15 K/ L 1.18-3.74 hbrq=382) MONOCYTES ABSOLUTE COUNT (BEAKER) (test 1.21 K/ L 0.24-0.36 kadj=691) EOSINOPHILS ABSOLUTE COUNT (BEAKER) (test 0.13 K/ L 0.04-0.36 yovb=771) BASOPHILS ABSOLUTE COUNT (BEAKER) (test 0.06 K/ L 0.01-0.08 stxi=336) IMMATURE GRANULOCYTES-RELATIVE PERCENT (BEAKER) 1 % 0-1 (test zcyx=9221)
[2019-05-01 17:18] LABS: Absolute Lymphocytes (CBC) 1.3 K/uL (0.7-4.9); Basophils % 0.4 % (0-1.3); Hematocrit 40.5 % (36.0-45.0); Lymphocytes % 26.4 % (15.3-44.8); MPV 7.6 fL (7.6-11.3); RBC Red Blood Cell Count 4.88 M/uL (3.86-4.86)
[2019-05-01] MEDS ORDERED: ONDANSETRON 4 MG/2 ML VIAL ONE (17:22)
[2019-05-01] MEDS ORDERED: NA CHLORIDE 0.9% 1,000 ML ONE (17:23)
[2019-05-01 17:34] LABS: ALT/SGPT 19 U/L (12-78); AST/SGOT 12 U/L (15-37); Albumin 3.9 g/dL (3.4-5.0); Alkaline Phosphatase 71 U/L (45-117); BUN Blood Urea Nitrogen 20 mg/dL (7-18); Bicarbonate 20 mmol/L (21-32); Bilirubin Total 0.4 mg/dL (0.2-1.0); Glucose Level 70 mg/dL (74-106); Lipase 186 U/L (73-393); Potassium 3.6 mmol/L (3.5-5.1); Protein, Total 8.3 g/dL (6.4-8.2); Sodium Level 141 mmol/L (136-145)
--- NOTE | 2019-05-01 18:12 | RAD REPORT ---
EXAM DESCRIPTION: CT - Abdomen Pelvis W Contrast - 05/01/2019 5:54 pm CLINICAL HISTORY: recent d c s/p urostomy colostomy and has abd pain COMPARISON: CT study August 2017 TECHNIQUE: Biphasic, helical CT imaging of the abdomen and pelvis was performed following 100 ml non -ionic IV contrast. No oral contrast administered. All CT scans are performed using dose optimization technique as appropriate and may include automated exposure control or mA/KV adjustment according to patient size. 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 This is further detailed on CT chest study. The liver, spleen, and pancreas show no suspicious findings. Gallbladder and biliary tree are also wi thout suspicious finding. Renal function is symmetric. Both kidneys show lobulated contour with no pyelonephritis or acute pare nchymal process. Patient has 3 mm nonobstructing calyx calculi on the right. No hydronephrosis. Delet e select urinary bladder is collapsed along the floor the pelvis. There is a small amount of air pres ent. This is presumed to be from a catheterization procedure but needs clinical correlation. Patient has a large macrolobulated multi fibroid uterus. IUD is in place. IUD is new from prior imaging. Fibr oids appear to have enlarged in size since prior imaging. A primary ovarian process is not suspected. No adrenal abnormalities. No gastric dilatation or wall thickening. No dilated large or small bowel loops identifiable. Patient has a double-barrel colostomy in the left lower quadrant. No acute process at this site. There is so me herniated fat but no herniation of bowel. No free air, free fluid or pneumatosis. No new mass or bulky lymphadenopathy seen. The pessary has b een removed since the prior study. There is a large amount of soft tissue along the posterior sacral and midline gluteal region. No abnormal air collection in the soft tissues. Correlation is needed wit h physical exam findings of decubitus ulcer disease. 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 These changes are stable. IMPRESSION: No bowel obstruction, free air or surgically emergent finding. Left lower quadrant double-barrel colostomy shows no acute component. There is some herniated fat at this site but no bowel herniation. Decubitus ulcer or prominent fibrotic scar tissue change along the lower midline pelvis and perineum. No air within the soft tissue. No acute GI or process evident. Enlarged multi fibroid uterus with the fibroids appearing to have enlarged since August 2017.
--- NOTE | 2019-05-01 18:15 | RAD REPORT ---
EXAM DESCRIPTION: CT - Thorax Wo Con - 05/01/2019 5:58 pm CLINICAL HISTORY: Chest pain COMPARISON: CT chest November 2018 TECHNIQUE: Axial 5 mm thick images of the chest were obtained without IV contrast. All CT scans are performed using dose optimization technique as appropriate and may include automated exposure control or mA/KV adjustment according to patient size. FINDINGS: No acute findings in the right lung field. There is a large left pleural fluid collection that is chronic. This is part or secondary to a ventriculo pleural shunt. Partial atelectasis of the left lower lobe is present. No pleural thickening. No air in the pleural space. No clear change from November is identifiable. Aerated portion of the left lung field shows no infiltrate. No endobronchial l esion is seen. No pneumothorax. No abnormal mediastinal or hilar masses or lymphadenopathy seen. No gross aortic or pulmonary artery finding suspected. Assessment is limited in the absence of IV contrast. No chest wall mass or abnormal axillary lymphadenopathy. SVC filter is in place. IMPRESSION: Stable large left pleural fluid collection secondary to the patient's known ventriculo p leural shunt. Chronic left lower lobe atelectasis with no acute left lung field finding seen. No acute right lung field finding.
--- NOTE | 2019-05-01 18:50 | ER ---
Nurse's Notes [facility] Name: Leila Aquino Age: 38 yrs Sex: Female : 1980 Arrival Date: 05/01/2019 Time: 16:50 Bed 5 Private MD: Diagnosis: Nausea and vomiting;Pleural effusion, not elsewhere classified Presentation: 05/01 16:51 Presenting complaint: Patient states: low abd pain, back pain, N/V that began today. ss Denies fever. Transition of care: patient was not received from another setting of care. Onset of symptoms was May 01, 2019. Risk Assessment: Do you want to hurt yourself or someone else? Patient reports no desire to harm self or others. Initial Sepsis Screen: Does the patient meet any 2 criteria? No. Patient's initial sepsis screen is negative. Does the patient have a suspected source of infection? No. Patient's initial sepsis screen is negative. Care prior to arrival: None. 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 - Social history:: Smoking status: Patient/guardian denies using tobacco. - Ebola Screening: : Patient denies exposure to infectious person Patient denies travel to an Ebola-affected area in the 21 days before illness onset. Screenin:00 Fall Risk IV access (20 points). iw 19:32 Abuse screen: Denies threats or abuse. Denies injuries from another. Nutritional iw screening: No deficits noted. Tuberculosis screening: No symptoms or risk factors identified. Assessment: 17:40 General: Appears in no apparent distress. Behavior is calm, cooperative. General: iw Denies fever, chills. Pain: Complains of pain in abdomen. Neuro: Level of Consciousness is awake, alert, obeys commands. Cardiovascular: Patient's skin is warm and dry. Respiratory: Respiratory effort is even, unlabored, Respiratory pattern is regular. GI: Bowel sounds present X 4 quads. Abd is soft X 4 quads Abdomen is tender to palpation in right upper quadrant and left upper quadrant. 19:02 Reassessment: Patient appears in no apparent distress at this time. Patient and/or iw family updated on plan of care and expected duration. Pain level reassessed. Patient is alert, oriented x 3, equal unlabored respirations, skin warm/dry/pink. pt c/o nausea and pain. 20:15 Reassessment: Patient and/or family updated on plan of care and expected duration. Pain ea level reassessed. Patient is alert, oriented x 3, equal unlabored respirations, skin warm/dry/pink. Discharge instruction given to patient, verbalized the understanding of instruction. [facility] at facility for transfer, report given to EMS. Pt left facility via stretcher per [facility]. Vital Signs: 16:50 BP 128 / 83; Pulse 80; Resp 16; Pulse Ox 98% on R/A; Weight 63.5 kg; Pain 8/10; ss 20:17 BP 130 / 78; Pulse 78; Resp 18; Temp 97.6; Pulse Ox 99% on R/A; ea ED Course: 16:50 Patient arrived in ED. ss 16:50 Aris Leggett MD is Attending Physician. ps1 16:50 Arm band placed on right wrist. ss 16:52 Triage completed. ss 17:10 Radiology exam delayed due to lab results not completed at this time. (BUN/Creatinine) nj IV insertion attempt and/or patient not having appropriate IV at this time. 17:10 Inserted saline lock: 24 gauge in left ,using aseptic technique. upper chest/ axilla rv area. 17:18 Priyanka Miller, RN is Primary Nurse. iw 17:34 Radiology exam delayed due to lab results not completed at this time. (BUN/Creatinine). nj 17:54 CT Abd/Pelvis - IV Contrast Only In Process Unspecified. EDMS 17:59 Thorax Wo Con In Process Unspecified. EDMS 20:18 No provider procedures requiring assistance completed. IV discontinued, intact, ea bleeding controlled, No redness/swelling at site. Pressure dressing applied. Administered Medications: 17:25 Drug: NS 0.9% 1000 ml {Note: left shoulder.} Route: IV; Rate: 1 bolus; Site: Other; iw 19:30 Follow up: IV Status: Order to discontinue infusion iw 17:26 Drug: Zofran 4 mg {Note: left shoulder.} Route: IVP; Site: Other; iw 19:30 Follow up: Response: No adverse reaction iw 19:02 Drug: Phenergan 12.5 mg {Note: left shoulder.} Route: IVP; Site: Other; iw 19:30 Follow up: Response: No adverse reaction iw 19:33 Not Given (Patient Refused): fentaNYL (PF) 50 mcg IVP once; RASS on ADMIN: Combtv4, ea Very Agttd3, Agttd2, Rstlss1, AlertClm0, Drwsy-1, Lt Sdtn-2, Mod Sdtn-3, Dp Sdtn-4, UnArsble-5 Outcome: 18:48 Discharge ordered by . ps1 20:18 Discharged to home via ambulance. ea 20:18 Condition: stable 20:18 Discharge instructions given to patient, Instructed on discharge instructions, follow up and referral plans. medication usage, Demonstrated understanding of instructions, follow-up care, medications, Prescriptions given X 1. 20:19 Patient left the ED. ea Signatures: Dispatcher [employer] EDPriyanka Shah RN RN iw Smirch, Shelby, RN Karlos Dillon Elena RN Aris Vale ea, MD MD ps1 Anant Collins RN RN rv
--- NOTE | 2019-05-01 18:51 | EDPHYS ---
Physician Documentation [facility] Name: Leila Aquino Age: 38 yrs Sex: Female : 1980 Arrival Date: 05/01/2019 Time: 16:50 Bed 5 Private MD: ED Physician Aris Leggett HPI: 05/01 16:50 This 38 yrs old Black Female presents to ER via Unassigned with complaints of Abdominal ps1 Pain, Low Back Pain. 16:50 Pt has multiple medical problems. 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 sp colostomy, ps1 urostomy, recurrent kidney stones s/p multiple lithotripsy, s/p thyroidectomy, [employer] shunt, recent D\T\C presenting with abdominal pain, nausea and vomiting. Abd pain is non-specific and localized to lower abdomen. No fever but has had chills. Pain rated as moderate. Has had 3 episodes of vomiting. Non bloody. [employer]: 16:50 LMP 05/01/2019 ss Historical: - Allergies: 16:54 chloradate; ss 16:54 Latex, Natural Rubber; ss 16:54 Morphine; ss 16:54 Vancomycin; ss - PMHx: 16:54 ADD/ADHD; Anemia; Hypertension; osteomyolitis L foot; Kidney stones; Sepsis; UTI; DVT; ss spina bifida; Asthma; - Immunization history:: Adult Immunizations up to date. - Social history:: Smoking status: Patient/guardian denies using tobacco. - Ebola Screening: : Patient denies exposure to infectious person Patient denies travel to an Ebola-affected area in the 21 days before illness onset. ROS: 16:50 Eyes: Negative for injury, pain, redness, and discharge, ENT: Negative for injury, ps1 pain, and discharge, Cardiovascular: Negative for chest pain, palpitations, and edema, Respiratory: Negative for shortness of breath, cough, wheezing, and pleuritic chest pain. 16:50 Constitutional: Positive for body aches, chills. 16:50 Constitutional: 16:50 Abdomen/GI: Positive for abdominal pain, nausea and vomiting, Negative for black/tarry stool, rectal bleeding. 16:50 MS/extremity: Positive for contractions of lower extremities. 16:50 Neuro: Positive for weakness. Exam: 16:55 Constitutional: This is a well developed, well nourished patient who is awake, alert, ps1 and in no acute distress. Head/Face: Normocephalic, atraumatic. Eyes: Pupils equal round and reactive to light, extra-ocular motions intact. Lids and lashes normal. Conjunctiva and sclera are non-icteric and not injected. Neck: Trachea midline, no thyromegaly or masses palpated, and no cervical lymphadenopathy. Supple, full range of motion without nuchal rigidity, or vertebral point tenderness. No Meningismus. Chest/axilla: Normal chest wall appearance and motion. Nontender with no deformity. No lesions are appreciated. Cardiovascular: Regular rate and rhythm. No gallops, murmurs, or rubs. Normal PMI, no JVD. No pulse deficits. Respiratory: Lungs have equal breath sounds bilaterally, clear to auscultation and percussion. No rales, rhonchi or wheezes noted. No increased work of breathing, no retractions or nasal flaring. 16:55 Abdomen/GI: Inspection: colostomy and urostomy, Bowel sounds: normal, Palpation: abdomen is soft and non-tender. 16:55 Musculoskeletal/extremity: contracted lower extremities bilat. Vital Signs: 16:50 BP 128 / 83; Pulse 80; Resp 16; Pulse Ox 98% on R/A; Weight 63.5 kg; Pain 8/10; ss 20:17 BP 130 / 78; Pulse 78; Resp 18; Temp 97.6; Pulse Ox 99% on R/A; ea MDM: 17:00 Patient medically screened. ps1 18:48 Data reviewed: vital signs, nurses notes, lab test result(s), radiologic studies, and ps1 as a result, I will discharge patient. Counseling: I had a detailed discussion with the patient and/or guardian regarding: the historical points, exam findings, and any diagnostic results supporting the discharge/admit diagnosis, lab results, radiology results, the need for outpatient follow up, to return to the emergency department if symptoms worsen or persist or if there are any questions or concerns that arise at home. 05/01 16:57 Order name: CBC with Diff; Complete Time: 17:29 ps1 05/01 16:57 Order name: Lipase; Complete Time: 17:58 ps1 05/01 16:57 Order name: CMP; Complete Time: 17:58 ps1 05/01 16:57 Order name: Blood Culture Adult (2) ps1 05/01 16:57 Order name: CT Abd/Pelvis - IV Contrast Only; Complete Time: 18:46 ps1 05/01 17:55 Order name: Thorax Wo Con; Complete Time: 18:46 EDNM 05/01 16:57 Order name: IV Saline Lock; Complete Time: 17:10 ps1 05/01 16:57 Order name: Labs collected and sent; Complete Time: 17:10 ps1 Administered Medications: 17:25 Drug: NS 0.9% 1000 ml {Note: left shoulder.} Route: IV; Rate: 1 bolus; Site: Other; iw 19:30 Follow up: IV Status: Order to discontinue infusion iw 17:26 Drug: Zofran 4 mg {Note: left shoulder.} Route: IVP; Site: Other; iw 19:30 Follow up: Response: No adverse reaction iw : Drug: Phenergan 12.5 mg {Note: left shoulder.} Route: IVP; Site: Other; iw 19:30 Follow up: Response: No adverse reaction iw 19:33 Not Given (Patient Refused): fentaNYL (PF) 50 mcg IVP once; RASS on ADMIN: Combtv4, ea Very Agttd3, Agttd2, Rstlss1, AlertClm0, Drwsy-1, Lt Sdtn-2, Mod Sdtn-3, Dp Sdtn-4, UnArsble-5 Disposition: 05/01/19 18:48 Discharged to Home. Impression: Nausea and vomiting, Pleural effusion, not elsewhere classified. - Condition is Stable. - Discharge Instructions: Nausea and Vomiting, Adult. - Prescriptions for Zofran 4 mg Oral Tablet - take 1 tablet by ORAL route every 12 hours As needed; 20 tablet. - Medication Reconciliation Form, Thank You Letter, Antibiotic Education, Prescription Opioid Use form. - Follow up: Emergency Department; When: As needed; Reason: Fever > 102 F, Worsening of condition. Follow up: Private Physician; When: Tomorrow; Reason: Further diagnostic work-up, Recheck today's complaints, Continuance of care. - Problem is new. - Symptoms have improved. Signatures: Dispatcher [employer] EDPriyanka Shah RN RN iw Smirch, Shelby, RN RN Sonya Barragan RN RN ea Singer, Phillip, MD MD ps1 Corrections: (The following items were deleted from the chart) 18:49 18:48 05/01/2019 18:48 Discharged to Home. Impression: Nausea and vomiting. Condition ps1 is Stable. Forms are Medication Reconciliation Form, Thank You Letter, Antibiotic Education, Prescription Opioid Use. Follow up: Emergency Department; When: As needed; Reason: Fever > 102 F, Worsening of condition. Follow up: Private Physician; When: Tomorrow; Reason: Further diagnostic work-up, Recheck today's complaints, Continuance of care. Problem is new. Symptoms have improved. ps1 20:19 18:49 05/01/2019 18:48 Discharged to Home. Impression: Nausea and vomiting; Pleural ea effusion, not elsewhere classified. Condition is Stable. Discharge Instructions: Nausea and Vomiting, Adult. Prescriptions for Zofran 4 mg Oral Tablet - take 1 tablet by ORAL route every 12 hours As needed; 20 tablet. and Forms are Medication Reconciliation Form, Thank You Letter, Antibiotic Education, Prescription Opioid Use. Follow up: Emergency Department; When: As needed; Reason: Fever > 102 F, Worsening of condition. Follow up: Private Physician; When: Tomorrow; Reason: Further diagnostic work-up, Recheck today's complaints, Continuance of care. Problem is new. Symptoms have improved. ps1
[2019-05-01] MEDS ORDERED: PROMETHAZINE 25 MG/ML VIAL ONE (19:09)
[2019-05-01] MEDS ORDERED: FENTANYL CITR 100 MCG/2 ML ONE (19:32)
[2019-05-01 20:38] VITALS: BP 130/78; TEMP 97.6; O2SAT 99
== END 2019-05-01 20:19 | disposition home or self-care (01) ==
LOC: ER 16:45
DX: J90 Pleural effusion, not elsewhere classified (principal); I10 Essential (primary) hypertension; Q05.9 Spina bifida, unspecified; Z88.3 Allergy status to other anti-infective agents; Z88.5 Allergy status to narcotic agent; Z88.8 Allergy status to other drugs, medicaments and biological substances; Z91.040 Latex allergy status
CPT/HCPCS: 96361; 87040; 85025; 36415; 83690; 80053; 71250; 74177; 96375; 96374; 99284; Q9967; J2550; J3010; J7030; J2405

== ENCOUNTER 2019-08-08 03:07 | Emergency (ER) | payer OTHER ==
--- OUTSIDE RECORDS SUMMARY | 2019-08-08 03:11 | XMS REPORT ---
:1980 [facility] Address [address] [place] [address] Dr. Haile. [address] [place] [address] Care Team Providers Name Role Phone DILMA LOMBARDI WAQAR Unavailable Unavailable DANGELO VERMA MABEL Unavailable Unavailable Problems This patient has no known problems. Allergies, Adverse Reactions, Alerts This patient has no known allergies or adverse reactions. Medications This patient has no known medications. Encounters Start End Encounter Admission Attending Care Care Encounter Date/Time Date/Time Type Type Clinicians Facility Department ID 2018-12-13 Inpatient U [facility] [id number] 17:12:36 2019-01-30 2019-01-30 Emergency E [facility] [id number] 18:32:00 18:32:00 2019-01-22 2019-01-22 Outpatient E [facility] [id number] 05:46:00 05:46:00 2019-01-12 2019-01-12 Outpatient [facility] [id number] 17:47:00 17:47:00 2019-01-06 2019-01-06 Outpatient [facility] [id number] 10:09:00 10:09:00 2018-12-14 2018-12-13 Inpatient E [facility] [id number] 03:28:00 19:10:00 Results Test Description Test Time Test Comments Text Results Atomic Results Result Comments SURGICALLY OBTAINED CULTURE + GRAM STAIN 2018-07-03 12:12:00 Test Item Value Reference Range Comments CULTURE (BEAKER) (test ENTEROCOCCUS SPECIES 2+ Enterococcus jasp=8655) species Ampicillin (test code=26) Linezolid (test code=40) Tetracycline (test code=2) Vancomycin (test code=13) CULTURE (BEAKER) (test 1+ Katie albicans hotk=2661) CULTURE (BEAKER) (test KLEBSIELLA 1+ Klebsiella ygpr=0759) PNEUMONIAE SSP pneumoniae ssp PNEUMONIAE pneumoniae Amikacin (test code=1) Ampicillin + Sulbactam (test code=6) Aztreonam (test code=32) Cefepime (test code=51) Cefoxitin (test code=68) Ceftazidime (test code=27) Ceftriaxone (test code=52) Ertapenem (test code=38) Gentamicin (test code=18) Levofloxacin (test code=22) Meropenem (test code=34) Nitrofurantoin (test code=23) Piperacillin + Tazobactam (test code=29) Tetracycline (test code=2) Tobramycin (test code=25) Trimethoprim + Sulfamethoxazole (test code=47) CULTURE (PillGuard) (test VANCOMYCIN RESISTANT 1+ Vancomycin vqeo=4828) ENTEROCOCCUS SPECIES resistant Enterococcus species Ampicillin (test code=26) Linezolid (test code=40) Vancomycin (test code=13) Daptomycin (test Susceptible 0-4 , No code=59) Interpretations Established <0 or >4 ANAEROBIC [id number] 05:31:00 Test Item Value Reference Range Comments CULTURE (RevolutAKER) (test mfoo=5133) No anaerobes isolated URINE [id number] 11:06:00 Test Item Value Reference Range Comments CULTURE (RevolutAKER) (test 20-29,000 col/mL otbk=4865) Katie parapsilosis CULTURE (BEAKER) (test PSEUDOMONAS 20-29,000 col/mL wqby=6260) AERUGINOSA Pseudomonas aeruginosa Amikacin (test code=1) Susceptible [...] , code=25) Resistant <0 or >4 URINE [id number] 11:03:00 Test Item Value Reference Range Comments CULTURE (BEAKER) (test ENTEROCOCCUS SPECIES >100,000 col/mL dbba=5443) Enterococcus species Ampicillin (test code=26) Linezolid (test code=40) Nitrofurantoin (test code=23) Tetracycline (test code=2) Vancomycin (test code=13) CULTURE (BEAKER) (test ESCHERICHIA COLI 50-59,000 col/mL ykqj=4608) Escherichia coli Amikacin (test code=1) Ampicillin + Sulbactam (test code=6) Aztreonam (test code=32) Cefepime (test code=51) Cefoxitin (test code=68) Ceftazidime (test code=27) Ceftriaxone (test code=52) Ertapenem (test code=38) Gentamicin (test code=18) Levofloxacin (test code=22) Meropenem (test code=34) Nitrofurantoin (test code=23) Piperacillin + Tazobactam (test code=29) Tetracycline (test code=2) Tobramycin (test code=25) Trimethoprim + Sulfamethoxazole (test code=47) CULTURE (BEAKER) (test ENTEROBACTER CLOACAE 50-59,000 col/mL zuhn=2652) COMPLEX Enterobacter cloacae complex Amikacin (test code=1) Aztreonam (test code=32) Cefepime (test code=51) Cefoxitin (test code=68) Ceftazidime (test code=27) Ceftriaxone (test code=52) Ertapenem (test code=38) Gentamicin (test code=18) Levofloxacin (test code=22) Meropenem (test code=34) Nitrofurantoin (test code=23) Piperacillin + Tazobactam (test code=29) Tetracycline (test code=2) Tobramycin (test code=25) Trimethoprim + Sulfamethoxazole (test code=47) Dr. lopez request for avycaz and zerbaxaCT, [id number] 07:41:00FINAL REPORT INDICATION:37-year-old female status post recent [...] Verified Date/Time : 06/29/2018 07:41:57 Reading Location: [facility] Diagnostic Imaging Reading Room - [place] [address] Electronically signed by: FREDERICK BOYD M.D. on 2017 07:41 AMCBC W/PLT COUNT & AUTO [id number] 07:07:00 Test Item Value Reference Range Comments WHITE BLOOD CELL COUNT 9.2 K/ L 3.5-10.5 (BEAKER) (test mmbv=928) RED BLOOD CELL COUNT (BEAKER) 4.41 M/ L 3.93-5.22 (test khjt=383) HEMOGLOBIN (BEAKER) (test 10.1 GM/DL 11.2-15.7 mhfn=722) HEMATOCRIT (BEAKER) (test 33.7 % 34.1-44.9 xwhr=534) MEAN CORPUSCULAR VOLUME 76.4 fL 79.4-94.8 (BEAKER) (test rozm=438) MEAN CORPUSCULAR HEMOGLOBIN 22.9 pg 25.6-32.2 (BEAKER) (test arrv=225) MEAN CORPUSCULAR HEMOGLOBIN 30.0 GM/DL 32.2-35.5 CONC (BEAKER) (test ygpx=997) RED CELL DISTRIBUTION WIDTH 21.2 % 11.7-14.4 (BEAKER) (test jrfh=644) PLATELET COUNT (BEAKER) (test 51 K/CU MM 150-450 huet=712) MEAN PLATELET VOLUME (BEAKER) fL 9.4-12.3 Unable to report due to (test easj=397) abnormal Platelet population distribution. NUCLEATED RED BLOOD CELLS 0 /100 WBC 0-0 (BEAKER) (test vgpc=712) NEUTROPHILS RELATIVE PERCENT 71 % (BEAKER) (test ayfb=696) LYMPHOCYTES RELATIVE PERCENT 17 % (BEAKER) (test ukke=241) MONOCYTES RELATIVE PERCENT 10 % (BEAKER) (test vlgt=390) EOSINOPHILS RELATIVE PERCENT 1 % (BEAKER) (test smyd=380) BASOPHILS RELATIVE PERCENT 0 % (BEAKER) (test bcij=095) NEUTROPHILS ABSOLUTE COUNT 6.59 K/ L 1.56-6.13 (BEAKER) (test kefk=302) LYMPHOCYTES ABSOLUTE COUNT 1.59 K/ L 1.18-3.74 (BEAKER) (test qwio=383) MONOCYTES ABSOLUTE COUNT 0.91 K/ L 0.24-0.36 (BEAKER) (test ospt=084) EOSINOPHILS ABSOLUTE COUNT 0.07 K/ L 0.04-0.36 (BEAKER) (test nqxa=154) BASOPHILS ABSOLUTE COUNT 0.03 K/ L 0.01-0.08 (BEAKER) (test lzgj=244) IMMATURE GRANULOCYTES-RELATIVE 0 % 0-1 PERCENT (BEAKER) (test aodc=2009) BASIC METABOLIC [id number] 06:01:00 Test Item Value Reference Range Comments SODIUM (BEAKER) (test 137 meq/L 136-145 xgqy=541) POTASSIUM (BEAKER) (test 3.7 meq/L 3.5-5.1 hdix=627) CHLORIDE (BEAKER) (test 112 meq/L 98-107 ycvx=198) CO2 (BEAKER) (test 17 meq/L 22-29 vawf=160) BLOOD UREA NITROGEN 7 mg/dL 7-21 (BEAKER) (test ulbc=774) CREATININE (BEAKER) (test 0.64 mg/dL 0.57-1.25 vvhe=521) GLUCOSE RANDOM (BEAKER) 82 mg/dL 70-105 (test glzm=168) CALCIUM (BEAKER) (test 8.9 mg/dL 8.4-10.2 rnak=294) EGFR (BEAKER) (test 126 mL/min/1.73 sq m ESTIMATED GFR IS NOT rref=0719) ACCURATE CREATININE CLEARANCE IN PREDICTING GLOMERULAR FILTRATION RATE. ESTIMATED GFR IS NOT APPLICABLE FOR DIALYSIS PATIENTS. CBC W/PLT COUNT & AUTO [id number] 22:22:00 Test Item Value Reference Range Comments WHITE BLOOD CELL COUNT 8.0 K/ L 3.5-10.5 (BEAKER) (test zuof=105) RED BLOOD CELL COUNT (BEAKER) 4.53 M/ L 3.93-5.22 (test utbr=805) HEMOGLOBIN (BEAKER) (test 10.5 GM/DL 11.2-15.7 vyyd=728) HEMATOCRIT (BEAKER) (test 35.1 % 34.1-44.9 bxaa=020) MEAN CORPUSCULAR VOLUME 77.5 fL 79.4-94.8 (BEAKER) (test btkp=952) MEAN CORPUSCULAR HEMOGLOBIN 23.2 pg 25.6-32.2 (BEAKER) (test iywx=780) MEAN CORPUSCULAR HEMOGLOBIN 29.9 GM/DL 32.2-35.5 CONC (BEAKER) (test otjr=878) RED CELL DISTRIBUTION WIDTH 20.6 % 11.7-14.4 (BEAKER) (test cczp=057) PLATELET COUNT (BEAKER) (test 97 K/CU MM 150-450 uagk=694) MEAN PLATELET VOLUME (BEAKER) fL 9.4-12.3 Unable to report due to (test ajgk=993) abnormal Platelet population distribution. NUCLEATED RED BLOOD CELLS 0 /100 WBC 0-0 (BEAKER) (test huub=314) NEUTROPHILS RELATIVE PERCENT 80 % (BEAKER) (test flrx=267) LYMPHOCYTES RELATIVE PERCENT 16 % (BEAKER) (test vapm=743) MONOCYTES RELATIVE PERCENT 4 % (BEAKER) (test gyqh=122) EOSINOPHILS RELATIVE PERCENT 0 % (BEAKER) (test iova=613) BASOPHILS RELATIVE PERCENT 0 % (BEAKER) (test uzed=895) NEUTROPHILS ABSOLUTE COUNT 6.41 K/ L 1.56-6.13 (BEAKER) (test zriz=683) LYMPHOCYTES ABSOLUTE COUNT 1.24 K/ L 1.18-3.74 (BEAKER) (test kxyk=839) MONOCYTES ABSOLUTE COUNT 0.32 K/ L 0.24-0.36 (BEAKER) (test wzcv=583) EOSINOPHILS ABSOLUTE COUNT 0.00 K/ L 0.04-0.36 (BEAKER) (test jgxo=580) BASOPHILS ABSOLUTE COUNT 0.01 K/ L 0.01-0.08 (BEAKER) (test qmhd=271) IMMATURE GRANULOCYTES-RELATIVE 1 % 0-1 PERCENT (BEAKER) (test mhqu=1751) BASIC METABOLIC [id number] 21:08:00 Test Item Value Reference Range Comments SODIUM (BEAKER) (test 135 meq/L 136-145 escc=948) POTASSIUM (BEAKER) (test 4.4 meq/L 3.5-5.1 kete=390) CHLORIDE (BEAKER) (test 111 meq/L 98-107 bwma=498) CO2 (BEAKER) (test 15 meq/L 22-29 fjyf=260) BLOOD UREA NITROGEN 7 mg/dL 7-21 (BEAKER) (test iprl=901) CREATININE (BEAKER) (test 0.62 mg/dL 0.57-1.25 rcli=155) GLUCOSE RANDOM (BEAKER) 95 mg/dL 70-105 (test sapu=944) CALCIUM (BEAKER) (test 8.9 mg/dL 8.4-10.2 gtys=223) EGFR (BEAKER) (test 131 mL/min/1.73 sq m ESTIMATED GFR IS NOT taly=5512) ACCURATE CREATININE CLEARANCE IN PREDICTING GLOMERULAR FILTRATION RATE. ESTIMATED GFR IS NOT APPLICABLE FOR DIALYSIS PATIENTS. RAD, CHEST, 1 VIEW, NON [id number] 13:37:00Reason for exam:->eval for pneumothoraxReason for exam:->in [...] Charanjit [place] Verified Date/Time: 13:37:49 Reading Location: [facility] Radiology Reading Room CBC W/PLT COUNT & amp; AUTO [id number] 09:50:00 Test Item Value Reference Range Comments WHITE BLOOD CELL COUNT 5.8 K/ L 3.5-10.5 (BEAKER) (test onbp=922) RED BLOOD CELL COUNT (BEAKER) 4.38 M/ L 3.93-5.22 (test azps=090) HEMOGLOBIN (BEAKER) (test 10.3 GM/DL 11.2-15.7 qwym=659) HEMATOCRIT (BEAKER) (test 33.7 % 34.1-44.9 kytw=524) MEAN CORPUSCULAR VOLUME 76.9 fL 79.4-94.8 (BEAKER) (test lpoo=346) MEAN CORPUSCULAR HEMOGLOBIN 23.5 pg 25.6-32.2 (BEAKER) (test mgru=602) MEAN CORPUSCULAR HEMOGLOBIN 30.6 GM/DL 32.2-35.5 CONC (BEAKER) (test iyzx=478) RED CELL DISTRIBUTION WIDTH 20.5 % 11.7-14.4 (BEAKER) (test vawy=371) PLATELET COUNT (BEAKER) (test K/CU MM 150-450 Platelet clumps vnih=520) present;unable to report true count. Platelet count should be recollected using an EDTA and CITRATE(blue) tube. MEAN PLATELET VOLUME (BEAKER) fL 9.4-12.3 Unable to report due to (test tqoc=248) abnormal Platelet population distribution. NUCLEATED RED BLOOD CELLS 0 /100 WBC 0-0 (BEAKER) (test xkwo=691) NEUTROPHILS RELATIVE PERCENT 47 % (BEAKER) (test ntlo=351) LYMPHOCYTES RELATIVE PERCENT 33 % (BEAKER) (test bmhn=288) MONOCYTES RELATIVE PERCENT 12 % (BEAKER) (test xswt=653) EOSINOPHILS RELATIVE PERCENT 8 % (BEAKER) (test udmh=481) BASOPHILS RELATIVE PERCENT 0 % (BEAKER) (test pqhc=175) NEUTROPHILS ABSOLUTE COUNT 2.70 K/ L 1.56-6.13 (BEAKER) (test qbwh=616) LYMPHOCYTES ABSOLUTE COUNT 1.90 K/ L 1.18-3.74 (BEAKER) (test gcjx=073) MONOCYTES ABSOLUTE COUNT 0.66 K/ L 0.24-0.36 (BEAKER) (test xuoi=712) EOSINOPHILS ABSOLUTE COUNT 0.45 K/ L 0.04-0.36 (BEAKER) (test dyid=366) BASOPHILS ABSOLUTE COUNT 0.02 K/ L 0.01-0.08 (BEAKER) (test xuus=909) IMMATURE GRANULOCYTES-RELATIVE 0 % 0-1 PERCENT (BEAKER) (test saqs=2122) FL, ALTERNATIVE MEDICINE PRACTITIONER IN OR/30 MINUTE [id number] 09:43:00Reason for exam:-> PCNLIs the patient ?->NoWhen [...] Pulido MDReport Verified Date/Time: 2017 09:43:00 Reading Location:[facility] Radiology Reading Room 09:43 AMBASIC METABOLIC [id number] 07:59:00 Test Item Value Reference Range Comments SODIUM (BEAKER) (test 135 meq/L 136-145 yprm=757) POTASSIUM (BEAKER) (test 4.2 meq/L 3.5-5.1 yvwh=145) CHLORIDE (BEAKER) (test 110 meq/L 98-107 tnjz=710) CO2 (BEAKER) (test 18 meq/L 22-29 xwqu=709) BLOOD UREA NITROGEN 7 mg/dL 7-21 (BEAKER) (test kour=593) CREATININE (BEAKER) (test 0.63 mg/dL 0.57-1.25 fzhm=658) GLUCOSE RANDOM (BEAKER) 84 mg/dL 70-105 (test jxnc=687) CALCIUM (BEAKER) (test 8.6 mg/dL 8.4-10.2 ibta=674) EGFR (BEAKER) (test 128 mL/min/1.73 sq m ESTIMATED GFR IS NOT qmmc=5816) ACCURATE CREATININE CLEARANCE IN PREDICTING GLOMERULAR FILTRATION RATE. ESTIMATED GFR IS NOT APPLICABLE FOR DIALYSIS PATIENTS. HEMOGLOBIN AND [id number] 14:41:00 Test Item Value Reference Range Comments HEMOGLOBIN (BEAKER) (test uzaa=007) 6.5 GM/DL 11.2-15.7 HEMATOCRIT (BEAKER) (test rslh=616) 23.1 % 34.1-44.9 BASIC METABOLIC [id number] 08:36:00 Test Item Value Reference Range Comments SODIUM (BEAKER) (test 135 meq/L 136-145 nrdu=466) POTASSIUM (BEAKER) (test 4.1 meq/L 3.5-5.1 pfxl=367) CHLORIDE (BEAKER) (test 111 meq/L 98-107 what=143) CO2 (BEAKER) (test 18 meq/L 22-29 vluy=739) BLOOD UREA NITROGEN 8 mg/dL 7-21 (BEAKER) (test hpye=766) CREATININE (BEAKER) (test 0.61 mg/dL 0.57-1.25 izaj=173) GLUCOSE RANDOM (BEAKER) 75 mg/dL 70-105 (test pnrk=490) CALCIUM (BEAKER) (test 8.4 mg/dL 8.4-10.2 fvqv=773) EGFR (BEAKER) (test 133 mL/min/1.73 sq m ESTIMATED GFR IS NOT eiqh=0800) ACCURATE CREATININE CLEARANCE IN PREDICTING GLOMERULAR FILTRATION RATE. ESTIMATED GFR IS NOT APPLICABLE FOR DIALYSIS PATIENTS. CBC W/PLT COUNT & AUTO [id number] 05:49:00 Test Item Value Reference Range Comments WHITE BLOOD CELL COUNT (BEAKER) (test ixmk=836) 5.1 K/ L 3.5-10.5 RED BLOOD CELL COUNT (BEAKER) (test sugc=515) 3.14 M/ L 3.93-5.22 HEMOGLOBIN (BEAKER) (test sifq=612) 6.3 GM/DL 11.2-15.7 HEMATOCRIT (BEAKER) (test ndbs=553) 22.8 % 34.1-44.9 MEAN CORPUSCULAR VOLUME (BEAKER) (test cymg=740) 72.6 fL 79.4-94.8 MEAN CORPUSCULAR HEMOGLOBIN (BEAKER) (test 20.1 pg 25.6-32.2 xmvv=030) MEAN CORPUSCULAR HEMOGLOBIN CONC (BEAKER) (test 27.6 GM/DL 32.2-35.5 stsl=901) RED CELL DISTRIBUTION WIDTH (BEAKER) (test 20.5 % 11.7-14.4 jwyk=332) PLATELET COUNT (BEAKER) (test nfih=225) 426 K/CU MM 150-450 MEAN PLATELET VOLUME (BEAKER) (test onwr=606) 10.9 fL 9.4-12.3 NUCLEATED RED BLOOD CELLS (BEAKER) (test 0 /100 WBC 0-0 bhxw=464) NEUTROPHILS RELATIVE PERCENT (BEAKER) (test 47 % vxvm=069) LYMPHOCYTES RELATIVE PERCENT (BEAKER) (test 30 % hskh=102) MONOCYTES RELATIVE PERCENT (BEAKER) (test 13 % rjvr=023) EOSINOPHILS RELATIVE PERCENT (BEAKER) (test 10 % qefp=922) BASOPHILS RELATIVE PERCENT (BEAKER) (test 0 % txmz=210) NEUTROPHILS ABSOLUTE COUNT (BEAKER) (test 2.35 K/ L 1.56-6.13 ccri=107) LYMPHOCYTES ABSOLUTE COUNT (BEAKER) (test 1.53 K/ L 1.18-3.74 vmap=671) MONOCYTES ABSOLUTE COUNT (BEAKER) (test 0.67 K/ L 0.24-0.36 qoih=814) EOSINOPHILS ABSOLUTE COUNT (BEAKER) (test 0.48 K/ L 0.04-0.36 jbmz=348) BASOPHILS ABSOLUTE COUNT (BEAKER) (test 0.01 K/ L 0.01-0.08 ydch=330) IMMATURE GRANULOCYTES-RELATIVE PERCENT (BEAKER) 0 % 0-1 (test gxrb=1213) HEMOGLOBIN AND [id number] 14:34:00 Test Item Value Reference Range Comments HEMOGLOBIN (BEAKER) (test inlo=606) 7.0 GM/DL 11.2-15.7 HEMATOCRIT (BEAKER) (test jusw=991) 24.7 % 34.1-44.9 CBC W/PLT COUNT & AUTO [id number] 10:55:00 Test Item Value Reference Range Comments WHITE BLOOD CELL COUNT 6.0 K/ L 3.5-10.5 (BEAKER) (test rvxd=946) RED BLOOD CELL COUNT (BEAKER) 3.59 M/ L 3.93-5.22 (test rptl=507) HEMOGLOBIN (BEAKER) (test 7.3 GM/DL 11.2-15.7 jkvc=293) HEMATOCRIT (BEAKER) (test 25.9 % 34.1-44.9 sstd=477) MEAN CORPUSCULAR VOLUME 72.1 fL 79.4-94.8 (BEAKER) (test jqpd=912) MEAN CORPUSCULAR HEMOGLOBIN 20.3 pg 25.6-32.2 (BEAKER) (test xmph=886) MEAN CORPUSCULAR HEMOGLOBIN 28.2 GM/DL 32.2-35.5 CONC (BEAKER) (test titg=731) RED CELL DISTRIBUTION WIDTH 20.2 % 11.7-14.4 (BEAKER) (test aztw=593) PLATELET COUNT (BEAKER) (test 592 K/CU MM 150-450 Platelets count from zaln=497) citrated tube. MEAN PLATELET VOLUME (BEAKER) 9.4 fL 9.4-12.3 (test fugq=059) NUCLEATED RED BLOOD CELLS 0 /100 WBC 0-0 (BEAKER) (test etow=661) NEUTROPHILS RELATIVE PERCENT 56 % (BEAKER) (test hsmj=479) LYMPHOCYTES RELATIVE PERCENT 26 % (BEAKER) (test kgdi=636) MONOCYTES RELATIVE PERCENT 10 % (BEAKER) (test qfbs=900) EOSINOPHILS RELATIVE PERCENT 8 % (BEAKER) (test wjic=171) BASOPHILS RELATIVE PERCENT 0 % (BEAKER) (test sich=775) NEUTROPHILS ABSOLUTE COUNT 3.35 K/ L 1.56-6.13 (BEAKER) (test gllv=035) LYMPHOCYTES ABSOLUTE COUNT 1.53 K/ L 1.18-3.74 (BEAKER) (test qltj=846) MONOCYTES ABSOLUTE COUNT 0.60 K/ L 0.24-0.36 (BEAKER) (test onix=240) EOSINOPHILS ABSOLUTE COUNT 0.47 K/ L 0.04-0.36 (BEAKER) (test fkir=811) BASOPHILS ABSOLUTE COUNT 0.02 K/ L 0.01-0.08 (BEAKER) (test etag=832) IMMATURE GRANULOCYTES-RELATIVE 0 % 0-1 PERCENT (BEAKER) (test vmww=0140) BASIC METABOLIC [id number] 06:21:00 Test Item Value Reference Range Comments SODIUM (BEAKER) (test 138 meq/L 136-145 oysz=324) POTASSIUM (BEAKER) (test 4.6 meq/L 3.5-5.1 Specimen slightly ujkt=066) hemolyzed CHLORIDE (BEAKER) (test 114 meq/L 98-107 eauj=559) CO2 (BEAKER) (test 15 meq/L 22-29 sqgq=346) BLOOD UREA NITROGEN 9 mg/dL 7-21 (BEAKER) (test zbkm=741) CREATININE (BEAKER) (test 0.67 mg/dL 0.57-1.25 Specimen slightly bkmz=326) hemolyzed GLUCOSE RANDOM (BEAKER) 81 mg/dL 70-105 (test yyjs=528) CALCIUM (BEAKER) (test 8.6 mg/dL 8.4-10.2 cbid=728) EGFR (BEAKER) (test 119 mL/min/1.73 sq m ESTIMATED GFR IS NOT trxa=9423) ACCURATE CREATININE CLEARANCE IN PREDICTING GLOMERULAR FILTRATION RATE. ESTIMATED GFR IS NOT APPLICABLE FOR DIALYSIS PATIENTS. CBC W/PLT COUNT & AUTO [id number] 14:39:00 Test Item Value Reference Range Comments WHITE BLOOD CELL COUNT 5.3 K/ L 3.5-10.5 (BEAKER) (test mecd=413) RED BLOOD CELL COUNT (BEAKER) 3.55 M/ L 3.93-5.22 (test cgoi=015) HEMOGLOBIN (BEAKER) (test 7.3 GM/DL 11.2-15.7 comv=888) HEMATOCRIT (BEAKER) (test 25.9 % 34.1-44.9 inpi=574) MEAN CORPUSCULAR VOLUME 73.0 fL 79.4-94.8 (BEAKER) (test tjmz=479) MEAN CORPUSCULAR HEMOGLOBIN 20.6 pg 25.6-32.2 (BEAKER) (test svai=461) MEAN CORPUSCULAR HEMOGLOBIN 28.2 GM/DL 32.2-35.5 CONC (BEAKER) (test jxch=059) RED CELL DISTRIBUTION WIDTH 20.3 % 11.7-14.4 (BEAKER) (test szyq=288) PLATELET COUNT (BEAKER) (test 554 K/CU MM 150-450 Platelet Clumps present. dzet=976) Unable to report true count on Purple top. Platelet Count using citrate tube MEAN PLATELET VOLUME (BEAKER) fL 9.4-12.3 Unable to report due to (test eybv=079) abnormal Platelet population distribution. NUCLEATED RED BLOOD CELLS 0 /100 WBC 0-0 (BEAKER) (test blrj=268) NEUTROPHILS RELATIVE PERCENT 61 % (BEAKER) (test vlan=864) LYMPHOCYTES RELATIVE PERCENT 25 % (BEAKER) (test nwfu=237) MONOCYTES RELATIVE PERCENT 8 % (BEAKER) (test zwzy=319) EOSINOPHILS RELATIVE PERCENT 6 % (BEAKER) (test tifk=787) BASOPHILS RELATIVE PERCENT 0 % (BEAKER) (test dnye=423) NEUTROPHILS ABSOLUTE COUNT 3.25 K/ L 1.56-6.13 (BEAKER) (test jlis=938) LYMPHOCYTES ABSOLUTE COUNT 1.32 K/ L 1.18-3.74 (BEAKER) (test wztv=650) MONOCYTES ABSOLUTE COUNT 0.40 K/ L 0.24-0.36 (BEAKER) (test dids=008) EOSINOPHILS ABSOLUTE COUNT 0.34 K/ L 0.04-0.36 (BEAKER) (test ctoa=947) BASOPHILS ABSOLUTE COUNT 0.01 K/ L 0.01-0.08 (BEAKER) (test ulyy=389) IMMATURE GRANULOCYTES-RELATIVE 0 % 0-1 PERCENT (BEAKER) (test trqq=8272) RAD, CHEST, 1 VIEW, NON [id number] 10:16:00Reason for exam:->Post Power PICC insertion RUE for tip verificationShould this be performed at the bedside?- >YesFINAL REPORT AP chest HISTORY: PICC placement COMPARISON: None IMPRESSION:Right arm PICC present with tip at upper SVC. SVC filter present. Left-sided STATEMENT DISTRIBUTION CLERK shunt. Grossly normal cardiac silhouette. Right lung clear. Moderate left effusion. Signed: Satish Kerr MDReport VerifiedDate/Time: 06/25/2018 10:16:18 Reading Location: [facility] B1 [id number] Ortho Consult Reading Room BASIC METABOLIC [id number] 09:58:00 Test Item Value Reference Range Comments SODIUM (BEAKER) (test 136 meq/L 136-145 grpe=651) POTASSIUM (BEAKER) (test 4.4 meq/L 3.5-5.1 Specimen slightly xsvu=117) hemolyzed CHLORIDE (BEAKER) (test 107 meq/L 98-107 avdm=253) CO2 (BEAKER) (test 23 meq/L 22-29 ocmb=736) BLOOD UREA NITROGEN 11 mg/dL 7-21 (BEAKER) (test sqox=183) CREATININE (BEAKER) (test 0.68 mg/dL 0.57-1.25 Specimen slightly nuuq=163) hemolyzed GLUCOSE RANDOM (BEAKER) 92 mg/dL 70-105 (test vkzf=808) CALCIUM (BEAKER) (test 8.9 mg/dL 8.4-10.2 ziun=866) EGFR (BEAKER) (test 117 mL/min/1.73 sq m ESTIMATED GFR IS NOT xdpc=6294) ACCURATE CREATININE CLEARANCE IN PREDICTING GLOMERULAR FILTRATION RATE. ESTIMATED GFR IS NOT APPLICABLE FOR DIALYSIS PATIENTS. CBC W/PLT COUNT & AUTO [id number] 13:38:00 Test Item Value Reference Range Comments WHITE BLOOD CELL COUNT 7.5 K/ L 3.5-10.5 (BEAKER) (test gwhw=392) RED BLOOD CELL COUNT (BEAKER) 4.45 M/ L 3.93-5.22 (test pgej=760) HEMOGLOBIN (BEAKER) (test 9.2 GM/DL 11.2-15.7 rjuh=022) HEMATOCRIT (BEAKER) (test 32.4 % 34.1-44.9 sykq=258) MEAN CORPUSCULAR VOLUME 72.8 fL 79.4-94.8 (BEAKER) (test xvsf=814) MEAN CORPUSCULAR HEMOGLOBIN 20.7 pg 25.6-32.2 (BEAKER) (test ktrj=120) MEAN CORPUSCULAR HEMOGLOBIN 28.4 GM/DL 32.2-35.5 CONC (BEAKER) (test tgas=884) RED CELL DISTRIBUTION WIDTH 20.6 % 11.7-14.4 (BEAKER) (test hyek=477) PLATELET COUNT (BEAKER) (test 275 K/CU MM 150-450 utcy=889) MEAN PLATELET VOLUME (BEAKER) fL 9.4-12.3 Unable to report due to (test cmqh=303) abnormal Platelet population distribution. NUCLEATED RED BLOOD CELLS 0 /100 WBC 0-0 (BEAKER) (test vzdy=439) NEUTROPHILS RELATIVE PERCENT 65 % (BEAKER) (test ymfc=872) LYMPHOCYTES RELATIVE PERCENT 23 % (BEAKER) (test muaq=379) MONOCYTES RELATIVE PERCENT 8 % (BEAKER) (test mpcp=599) EOSINOPHILS RELATIVE PERCENT 4 % (BEAKER) (test irlk=870) BASOPHILS RELATIVE PERCENT 0 % (BEAKER) (test eghg=622) NEUTROPHILS ABSOLUTE COUNT 4.86 K/ L 1.56-6.13 (BEAKER) (test nowl=234) LYMPHOCYTES ABSOLUTE COUNT 1.69 K/ L 1.18-3.74 (BEAKER) (test ytpk=008) MONOCYTES ABSOLUTE COUNT 0.60 K/ L 0.24-0.36 (BEAKER) (test zkfe=324) EOSINOPHILS ABSOLUTE COUNT 0.30 K/ L 0.04-0.36 (BEAKER) (test sfgu=707) BASOPHILS ABSOLUTE COUNT 0.02 K/ L 0.01-0.08 (BEAKER) (test uclj=026) IMMATURE GRANULOCYTES-RELATIVE 0 % 0-1 PERCENT (BEAKER) (test jblv=2974) BASIC METABOLIC [id number] 13:03:00 Test Item Value Reference Range Comments SODIUM (BEAKER) (test 134 meq/L 136-145 bksv=717) POTASSIUM (BEAKER) (test 4.3 meq/L 3.5-5.1 mbag=242) CHLORIDE (BEAKER) (test 104 meq/L 98-107 bjod=440) CO2 (BEAKER) (test 19 meq/L 22-29 wjqg=447) BLOOD UREA NITROGEN 11 mg/dL 7-21 (BEAKER) (test dhic=873) CREATININE (BEAKER) (test 0.72 mg/dL 0.57-1.25 xvud=180) GLUCOSE RANDOM (BEAKER) 82 mg/dL 70-105 (test ofbp=703) CALCIUM (BEAKER) (test 9.7 mg/dL 8.4-10.2 nkvh=511) EGFR (BEAKER) (test 110 mL/min/1.73 sq m ESTIMATED GFR IS NOT tajv=3739) ACCURATE CREATININE CLEARANCE IN PREDICTING GLOMERULAR FILTRATION RATE. ESTIMATED GFR IS NOT APPLICABLE FOR DIALYSIS PATIENTS. BODY FLUID CULTURE + GRAM [id number] 16:53:00 Test Item Value Reference Range Comments CULTURE (BEAKER) (test ENTEROBACTER CLOACAE 2+ Enterobacter rsqw=0055) COMPLEX cloacae complexESBL PositiveAmpC Positive Amikacin (test code=1) Aztreonam (test code=32) Cefepime (test code=51) Cefoxitin (test code=68) Ceftazidime (test code=27) Ceftriaxone (test code=52) Ertapenem (test code=38) Gentamicin (test code=18) Levofloxacin (test code=22) Meropenem (test code=34) Nitrofurantoin (test code=23) Piperacillin + Tazobactam (test code=29) Tetracycline (test code=2) Tobramycin (test code=25) Trimethoprim + Sulfamethoxazole (test code=47) CULTURE (BEAKER) (test ENTEROCOCCUS SPECIES 2+ Enterococcus jezy=3120) species Ampicillin (test code=26) Linezolid (test code=40) Vancomycin (test code=13) CULTURE (BEAKER) (test 2+ Katie yayx=7301) parapsilosis GRAM STAIN RESULT (BEAKER) No organisms seen (test jypw=6083) GRAM STAIN RESULT (BEAKER) 1+ White blood cells (test fngm=[id number]) seen URINE [id number] 10:14:00 Test Item Value Reference Range Comments CULTURE (BEAKER) (test ENTEROBACTER CLOACAE >100,000 col/mL iryq=7048) COMPLEX Enterobacter cloacae complex Amikacin (test code=1) Aztreonam (test code=32) Cefepime (test code=51) Cefoxitin (test code=68) Ceftazidime (test code=27) Ceftriaxone (test code=52) Gentamicin (test code=18) Levofloxacin (test code=22) Meropenem (test code=34) Nitrofurantoin (test code=23) Piperacillin + Tazobactam (test code=29) Tetracycline (test code=2) Tobramycin (test code=25) Trimethoprim + Sulfamethoxazole (test code=47) CULTURE (BEAKER) (test PSEUDOMONAS 30-39,000 col/mL edzg=8741) AERUGINOSA Pseudomonas aeruginosa Amikacin (test code=1) Susceptible [...] CULTURE (BEAKER) (test ENTEROCOCCUS SPECIES 50-59,000 col/mL cnyt=7368) Enterococcus species Ampicillin (test code=26) Linezolid (test code=40) Nitrofurantoin (test code=23) Tetracycline (test code=2) Vancomycin (test code=13) BLOOD [id number] 11:00:00 Test Item Value Reference Range Comments CULTURE (BEAKER) (test oxgu=2226) No growth in 5 days BLOOD [id number] 06:00:00 Test Item Value Reference Range Comments CULTURE (BEAKER) (test vylq=4117) No growth in 5 days BASIC METABOLIC [id number] 04:43:00 Test Item Value Reference Range Comments SODIUM (BEAKER) (test 141 meq/L 136-145 ivfu=054) POTASSIUM (BEAKER) (test 3.7 meq/L 3.5-5.1 nmzz=226) CHLORIDE (BEAKER) (test 112 meq/L 98-107 ukkc=979) CO2 (BEAKER) (test 21 meq/L 22-29 chit=760) BLOOD UREA NITROGEN 12 mg/dL 7-21 (BEAKER) (test mies=319) CREATININE (BEAKER) (test 0.63 mg/dL 0.57-1.25 gdqc=603) GLUCOSE RANDOM (BEAKER) 83 mg/dL 70-105 (test aqpx=715) CALCIUM (BEAKER) (test 8.9 mg/dL 8.4-10.2 iwyg=440) EGFR (BEAKER) (test 128 mL/min/1.73 sq m ESTIMATED GFR IS NOT ndws=3666) ACCURATE CREATININE CLEARANCE IN PREDICTING GLOMERULAR FILTRATION RATE. ESTIMATED GFR IS NOT APPLICABLE FOR DIALYSIS PATIENTS. URINALYSIS W/ REFLEX URINE [id number] 15:11:00 Test Item Value Reference Range Comments COLOR (BEAKER) (test guko=822) [place] CLARITY (BEAKER) (test oazf=437) Hazy SPECIFIC GRAVITY UA (BEAKER) (test wxad=992) 1.013 1.001-1.035 PH UA (BEAKER) (test tojn=313) 6.0 5.0-8.0 PROTEIN UA (BEAKER) (test dnnh=049) 100 mg/dL Negative GLUCOSE UA (BEAKER) (test bkpd=738) Negative Negative KETONES UA (BEAKER) (test efdu=612) Trace Negative BILIRUBIN UA (BEAKER) (test fhzh=576) Negative Negative BLOOD UA (BEAKER) (test tafv=682) Large Negative NITRITE UA (BEAKER) (test qbhh=667) Negative Negative LEUKOCYTE ESTERASE UA (BEAKER) (test pchi=568) Large Negative UROBILINOGEN UA (BEAKER) (test dojw=912) 0.2 mg/dL 0.2-1.0 RBC UA (BEAKER) (test hofb=630) > /HPF WBC UA (BEAKER) (test gkrw=613) 68 /HPF MUCUS (BEAKER) (test ebwm=9487) Rare SOURCE(BEAKER) (test asly=9870) ANG, NEPHROSTOMY, PERC, EXTERNAL [id number] 13:43:00Reason for exam:-> right obstructing stone with UTI, needs right PCNU if possible or PCN if notFINAL REPORT Fluoroscopic and ultrasound guided right nephroureterostomy tube placement, 06/12/2018. Clinical History: Obstructing stone at the junction of the right distal ureter and ileoconduit with hydronephrosis and urosepsis. Patient has a history of spina bifida/caudal regression. Modality: Sonography and fluoroscopy Professional Advisor: Faisal Felix MD. Artist'S Representative: None. Sedation: General anesthesia provided by the [...] then removed. The tract wasdilated to 8 [place]. An 8.5 [place] by 28 cm nephroureterostomy catheter was then [...] [place] Verified Date/Time: 06/12/2018 13:43:17 Reading Location: [facility] P048 Angio Body Reading Room CBC (HEMOGRAM ONLY)2018-06-12 10:29:00 Test Item Value Reference Range Comments WHITE BLOOD CELL COUNT (BEAKER) 8.5 K/ L 3.5-10.5 (test vget=701) RED BLOOD CELL COUNT (BEAKER) 4.23 M/ L 3.93-5.22 (test nrrl=683) HEMOGLOBIN (BEAKER) (test 9.1 GM/DL 11.2-15.7 hqid=031) HEMATOCRIT (BEAKER) (test 31.4 % 34.1-44.9 hwem=892) MEAN CORPUSCULAR VOLUME 74.2 fL 79.4-94.8 (BEAKER) (test eixp=313) MEAN CORPUSCULAR HEMOGLOBIN 21.5 pg 25.6-32.2 (BEAKER) (test xmyv=301) MEAN CORPUSCULAR HEMOGLOBIN 29.0 GM/DL 32.2-35.5 CONC (BEAKER) (test qaak=857) RED CELL DISTRIBUTION WIDTH 20.4 % 11.7-14.4 (BEAKER) (test rpxb=779) PLATELET COUNT (BEAKER) (test K/CU MM 150-450 Platelet clumps present, nhvh=349) unable to report true platelet. Recommend recollect using EDTA tube and blue (Citrate) tube. spoke to RN ID:[id number] NUCLEATED RED BLOOD CELLS 0 /100 WBC 0-0 (BEAKER) (test wapw=814) BASIC METABOLIC [id number] 06:52:00 Test Item Value Reference Range Comments SODIUM (BEAKER) (test 137 meq/L 136-145 kggt=640) POTASSIUM (BEAKER) (test 3.6 meq/L 3.5-5.1 ctjo=125) CHLORIDE (BEAKER) (test 108 meq/L 98-107 exrw=877) CO2 (BEAKER) (test 20 meq/L 22-29 rzrc=337) BLOOD UREA NITROGEN 14 mg/dL 7-21 (BEAKER) (test bsqd=731) CREATININE (BEAKER) (test 0.66 mg/dL 0.57-1.25 dwur=004) GLUCOSE RANDOM (BEAKER) 87 mg/dL 70-105 (test qgoq=583) CALCIUM (BEAKER) (test 9.1 mg/dL 8.4-10.2 pbms=847) EGFR (BEAKER) (test 121 mL/min/1.73 sq m ESTIMATED GFR IS NOT bkuo=4515) ACCURATE CREATININE CLEARANCE IN PREDICTING GLOMERULAR FILTRATION RATE. ESTIMATED GFR IS NOT APPLICABLE FOR DIALYSIS PATIENTS. PT/[id number] 06:37:00 Test Item Value Reference Range Comments PROTIME (BEAKER) (test rhzp=491) 14.4 seconds 11.7-14.7 INR (BEAKER) (test wkzy=053) 1.1 <=5.9 PARTIAL THROMBOPLASTIN TIME (BEAKER) (test 30.8 seconds 22.5-36.0 asmx=202) RECOMMENDED COUMADIN/WARFARIN INR THERAPY RANGESSTANDARD DOSE: 2.0 - 3.0 Includes: PROPHYLAXIS forvenous thrombosis, systemic embolization; TREATMENT for venous thrombosis and/or pulmonary embolus.HIGH RISK: Target INR is 2.5-3.5 for patients with mechanical heart valves.CT, [id number] 18:04:00FINAL REPORT CT scan of the abdomen [...] [id number] Ortho Consult Reading Room PREGNANCY SCREEN, [id number] 15:46:00 Test Item Value Reference Range Comments TEST URINE (BEAKER) (test hlqw=347) Negative URINALYSIS W/ REFLEX URINE [id number] 12:32:00 Test Item Value Reference Range Comments COLOR (BEAKER) (test zdbc=312) Light Yellow CLARITY (BEAKER) (test eose=264) Cloudy SPECIFIC GRAVITY UA (BEAKER) (test jekp=130) 1.013 1.001-1.035 PH UA (BEAKER) (test qakx=816) 7.5 5.0-8.0 PROTEIN UA (BEAKER) (test jlpo=098) 30 mg/dL Negative GLUCOSE UA (BEAKER) (test fgwy=510) Negative Negative KETONES UA (BEAKER) (test vgly=881) Trace Negative BILIRUBIN UA (BEAKER) (test qkat=605) Negative Negative BLOOD UA (BEAKER) (test wthy=081) Small Negative NITRITE UA (BEAKER) (test grjb=071) Positive Negative LEUKOCYTE ESTERASE UA (BEAKER) (test wrja=031) Large Negative UROBILINOGEN UA (BEAKER) (test bmzq=541) 0.2 mg/dL 0.2-1.0 RBC UA (BEAKER) (test irgx=939) 2 /HPF WBC UA (BEAKER) (test siqw=987) 5 /HPF BACTERIA (BEAKER) (test bjzs=411) Occasional MUCUS (BEAKER) (test cbxw=4140) Rare SQUAMOUS EPITHELIAL (BEAKER) (test ulcz=680) 1 /HPF HYALINE CASTS (BEAKER) (test yfrc=868) 2 /LPF SOURCE(BEAKER) (test fnes=2280) URINALYSIS W/ [id number] 12:32:00 Test Item Value Reference Range Comments COLOR (BEAKER) (test feht=328) Yellow CLARITY (BEAKER) (test txnr=889) Hazy SPECIFIC GRAVITY UA (BEAKER) (test cwyx=135) 1.012 1.001-1.035 PH UA (BEAKER) (test qrjb=049) 8.0 5.0-8.0 PROTEIN UA (BEAKER) (test tnwn=370) 50 mg/dL Negative GLUCOSE UA (BEAKER) (test hmke=580) Negative Negative KETONES UA (BEAKER) (test fsxo=618) Negative Negative BILIRUBIN UA (BEAKER) (test rtci=880) Negative Negative BLOOD UA (BEAKER) (test hykb=655) Moderate Negative NITRITE UA (BEAKER) (test sykw=911) Positive Negative LEUKOCYTE ESTERASE UA (BEAKER) (test Large Negative uuee=212) UROBILINOGEN UA (BEAKER) (test fwsl=349) 0.2 mg/dL 0.2-1.0 RBC UA (BEAKER) (test fbxy=600) 6 /HPF WBC UA (BEAKER) (test yiwv=779) 10 /HPF BACTERIA (BEAKER) (test bano=334) Many MUCUS (BEAKER) (test jzmh=9353) Many CRYSTALS, URINE (BEAKER) (test sdmm=9151) Occasional SOURCE(BEAKER) (test rkln=4320) Urine, Urostomy BASIC METABOLIC [id number] 06:01:00 Test Item Value Reference Range Comments SODIUM (BEAKER) (test 139 meq/L 136-145 bjwc=558) POTASSIUM (BEAKER) (test 3.6 meq/L 3.5-5.1 cbwf=479) CHLORIDE (BEAKER) (test 108 meq/L 98-107 mspd=117) CO2 (BEAKER) (test 23 meq/L 22-29 xekp=324) BLOOD UREA NITROGEN 12 mg/dL 7-21 (BEAKER) (test buaq=181) CREATININE (BEAKER) (test 0.66 mg/dL 0.57-1.25 nrjs=113) GLUCOSE RANDOM (BEAKER) 75 mg/dL 70-105 (test lkcc=417) CALCIUM (BEAKER) (test 8.7 mg/dL 8.4-10.2 qqrb=728) EGFR (BEAKER) (test 121 mL/min/1.73 sq m ESTIMATED GFR IS NOT mqiu=2199) ACCURATE CREATININE CLEARANCE IN PREDICTING GLOMERULAR FILTRATION RATE. ESTIMATED GFR IS NOT APPLICABLE FOR DIALYSIS PATIENTS. LACTIC ACID, VENOUS, WHOLE [id number] 05:31:00 Test Item Value Reference Range Comments LACTATE BLOOD VENOUS (2) (BEAKER) (test 0.8 mmol/L 0.5-2.2 ghxq=5085) Effective 01/01/2016: Units/Reference Range ChangeNew: 0.5-2.2 mmol/L Previous: 5 -20 mg/[id number] 05:20:00 Test Item Value Reference Range Comments PARTIAL THROMBOPLASTIN TIME (BEAKER) (test 35.9 seconds 22.5-36.0 pfmy=752) PROTHROMBIN TIME/[id number] 05:19:00 Test Item Value Reference Range Comments PROTIME (BEAKER) (test bkrj=890) 16.4 seconds 11.7-14.7 INR (BEAKER) (test flle=000) 1.3 <=5.9 RECOMMENDED COUMADIN/WARFARIN INR THERAPY RANGESSTANDARD DOSE: 2.0 - 3.0 Includes: PROPHYLAXIS forvenous thrombosis, systemic embolization; TREATMENT for venous thrombosis and/or pulmonary embolus.HIGH RISK: Target INR is 2.5-3.5 for patients with mechanical heart valves.CBC W/PLT COUNT & AUTO [id number] 05:08:00 Test Item Value Reference Range Comments WHITE BLOOD CELL COUNT 12.2 K/ L 3.5-10.5 (BEAKER) (test anpa=018) RED BLOOD CELL COUNT (BEAKER) 4.90 M/ L 3.93-5.22 (test apil=929) HEMOGLOBIN (BEAKER) (test 10.6 GM/DL 11.2-15.7 rfbo=132) HEMATOCRIT (BEAKER) (test 36.6 % 34.1-44.9 pmjr=872) MEAN CORPUSCULAR VOLUME 74.7 fL 79.4-94.8 (BEAKER) (test qspj=374) MEAN CORPUSCULAR HEMOGLOBIN 21.6 pg 25.6-32.2 (BEAKER) (test fbcz=600) MEAN CORPUSCULAR HEMOGLOBIN 29.0 GM/DL 32.2-35.5 CONC (BEAKER) (test juzt=448) RED CELL DISTRIBUTION WIDTH 20.5 % 11.7-14.4 (BEAKER) (test nlbm=071) PLATELET COUNT (BEAKER) (test 340 K/CU MM 150-450 ghsb=746) MEAN PLATELET VOLUME (BEAKER) 9.4 fL 9.4-12.3 Discordant MPV result (test irue=877) compared to previous one; Clinical correlation required. NUCLEATED RED BLOOD CELLS 0 /100 WBC 0-0 (BEAKER) (test rvkt=611) NEUTROPHILS RELATIVE PERCENT 89 % (BEAKER) (test trnu=596) LYMPHOCYTES RELATIVE PERCENT 5 % (BEAKER) (test yupo=607) MONOCYTES RELATIVE PERCENT 4 % (BEAKER) (test xiez=483) EOSINOPHILS RELATIVE PERCENT 2 % (BEAKER) (test otih=422) BASOPHILS RELATIVE PERCENT 0 % (BEAKER) (test ywus=257) NEUTROPHILS ABSOLUTE COUNT 10.83 K/ L 1.56-6.13 (BEAKER) (test uytt=914) LYMPHOCYTES ABSOLUTE COUNT 0.60 K/ L 1.18-3.74 (BEAKER) (test bcku=877) MONOCYTES ABSOLUTE COUNT 0.45 K/ L 0.24-0.36 (BEAKER) (test lvfe=460) EOSINOPHILS ABSOLUTE COUNT 0.19 K/ L 0.04-0.36 (BEAKER) (test fbwk=378) BASOPHILS ABSOLUTE COUNT 0.03 K/ L 0.01-0.08 (BEAKER) (test cetd=949) IMMATURE 1 % 0-1 GRANULOCYTES-RELATIVE PERCENT (BEAKER) (test sqqw=0547) LACTIC ACID, ARTERIAL, WHOLE [id number] 02:05:00 Test Item Value Reference Range Comments LACTATE BLOOD ARTERIAL (2) 0.6 mmol/L 0.5-2.2 Specimen slightly hemolyzed (BEAKER) (test ewle=1987) Effective 01/01/2016: Units/Reference Range ChangeNew: 0.5-2.2 mmol/L Previous: 5 -20 mg/[id number] 01:43:00 Test Item Value Reference Range Comments MAGNESIUM (BEAKER) (test 2.0 mg/dL 1.6-2.6 Specimen moderately hemolyzed wpnv=742) [id number] 01:43:00 Test Item Value Reference Range Comments PHOSPHORUS (BEAKER) (test 3.0 mg/dL 2.3-4.7 Specimen moderately hemolyzed fgzc=703) COMPREHENSIVE METABOLIC [id number] 01:43:00 Test Item Value Reference Range Comments TOTAL PROTEIN (BEAKER) 7.3 gm/dL 6.0-8.3 Specimen moderately (test iqif=394) hemolyzed ALBUMIN (BEAKER) (test 3.3 g/dL 3.5-5.0 Specimen moderately htox=5016) hemolyzed ALKALINE PHOSPHATASE 56 U/L 40-150 (BEAKER) (test jkbs=978) BILIRUBIN TOTAL (BEAKER) 0.4 mg/dL 0.2-1.2 Specimen moderately (test yrlz=510) hemolyzed SODIUM (BEAKER) (test 133 meq/L 136-145 aprg=948) POTASSIUM (BEAKER) (test 4.5 meq/L 3.5-5.1 Specimen moderately vohn=917) hemolyzed CHLORIDE (BEAKER) (test 108 meq/L 98-107 eiyb=873) CO2 (BEAKER) (test 15 meq/L 22-29 dnal=888) BLOOD UREA NITROGEN 12 mg/dL 7-21 (BEAKER) (test rflw=404) CREATININE (BEAKER) (test 0.61 mg/dL 0.57-1.25 Specimen moderately lcuz=515) hemolyzed GLUCOSE RANDOM (BEAKER) 92 mg/dL 70-105 (test wkny=340) CALCIUM (BEAKER) (test 8.3 mg/dL 8.4-10.2 wzsd=178) AST (SGOT) (BEAKER) (test 35 U/L 5-34 Specimen moderately uxbx=197) hemolyzed ALT (SGPT) (BEAKER) (test 14 U/L 6-55 Specimen moderately tqfi=041) hemolyzed EGFR (BEAKER) (test 133 mL/min/1.73 sq ESTIMATED GFR IS NOT kiwt=2437) m ACCURATE CREATININE CLEARANCE IN PREDICTING GLOMERULAR FILTRATION RATE. ESTIMATED GFR IS NOT APPLICABLE FOR DIALYSIS PATIENTS. CBC W/PLT COUNT & AUTO [id number] 01:20:00 Test Item Value Reference Range Comments WHITE BLOOD CELL COUNT (BEAKER) (test xhnt=602) 21.0 K/ L 3.5-10.5 RED BLOOD CELL COUNT (BEAKER) (test yqwz=281) 3.83 M/ L 3.93-5.22 HEMOGLOBIN (BEAKER) (test jvhh=741) 8.4 GM/DL 11.2-15.7 HEMATOCRIT (BEAKER) (test icyn=742) 28.3 % 34.1-44.9 MEAN CORPUSCULAR VOLUME (BEAKER) (test ecyb=784) 73.9 fL 79.4-94.8 MEAN CORPUSCULAR HEMOGLOBIN (BEAKER) (test 21.9 pg 25.6-32.2 bksb=222) MEAN CORPUSCULAR HEMOGLOBIN CONC (BEAKER) (test 29.7 GM/DL 32.2-35.5 rqdq=318) RED CELL DISTRIBUTION WIDTH (BEAKER) (test 20.3 % 11.7-14.4 iytf=679) PLATELET COUNT (BEAKER) (test amzt=342) 398 K/CU MM 150-450 MEAN PLATELET VOLUME (BEAKER) (test gdch=225) 10.2 fL 9.4-12.3 NUCLEATED RED BLOOD CELLS (BEAKER) (test 0 /100 WBC 0-0 yxwr=879) NEUTROPHILS RELATIVE PERCENT (BEAKER) (test 87 % grwk=402) LYMPHOCYTES RELATIVE PERCENT (BEAKER) (test 6 % pcjf=024) MONOCYTES RELATIVE PERCENT (BEAKER) (test 6 % vikw=371) EOSINOPHILS RELATIVE PERCENT (BEAKER) (test 1 % psih=613) BASOPHILS RELATIVE PERCENT (BEAKER) (test 0 % aedt=118) NEUTROPHILS ABSOLUTE COUNT (BEAKER) (test 18.34 K/ L 1.56-6.13 kwta=934) LYMPHOCYTES ABSOLUTE COUNT (BEAKER) (test 1.15 K/ L 1.18-3.74 uque=022) MONOCYTES ABSOLUTE COUNT (BEAKER) (test 1.21 K/ L 0.24-0.36 vzgl=038) EOSINOPHILS ABSOLUTE COUNT (BEAKER) (test 0.13 K/ L 0.04-0.36 hhca=753) BASOPHILS ABSOLUTE COUNT (BEAKER) (test 0.06 K/ L 0.01-0.08 alzo=037) IMMATURE GRANULOCYTES-RELATIVE PERCENT (BEAKER) 1 % 0-1 (test aued=5864)
[2019-08-08] MEDS ORDERED: NA CHLORIDE 0.9% 1,000 ML ONE (03:30)
[2019-08-08] MEDS ORDERED: ONDANSETRON 4 MG/2 ML VIAL ONE (03:30)
[2019-08-08] MEDS ORDERED: KETOROLAC 30 MG/ML INJ ONE (03:45)
[2019-08-08 04:17] LABS: ALT/SGPT 27 U/L (12-78); AST/SGOT 17 U/L (15-37); Albumin 3.8 g/dL (3.4-5.0); Alkaline Phosphatase 81 U/L (45-117); BUN Blood Urea Nitrogen 14 mg/dL (7-18); Bicarbonate 28 mmol/L (21-32); Bilirubin Direct 0.2 mg/dL (0-0.2); Bilirubin Total 0.5 mg/dL (0.2-1.0); Glucose Level 120 mg/dL (74-106); Lipase 198 U/L (73-393); Protein, Total 8.9 g/dL (6.4-8.2); Sodium Level 138 mmol/L (136-145)
[2019-08-08 04:40] LABS: Absolute Lymphocytes (CBC) 0.7 K/uL (0.7-4.9); Basophils % 0.2 % (0-1.3); Hematocrit 38.5 % (36.0-45.0); MPV 8.3 fL (7.6-11.3); RBC Red Blood Cell Count 4.56 M/uL (3.86-4.86)
[2019-08-08] MEDS ORDERED: FENTANYL CITR 100 MCG/2 ML ONE (04:40)
--- NOTE | 2019-08-08 05:47 | ER ---
Nurse's Notes [facility] Name: Leila Aquino Age: 38 yrs Sex: Female : 1980 Arrival Date: 08/08/2019 Time: 03:09 Bed 8 Private MD: Diagnosis: Vomiting, unspecified;Dehydration;Other viral enteritis Presentation: 08/08 03:10 Presenting complaint: EMS states: Reports pt complaining fo n/v, body aches and fever ea for the past 25 hours. Pt took zofran but did not have relief. Transition of care: patient was not received from another setting of care. Onset of symptoms was August 08, 2019. Risk Assessment: Do you want to hurt yourself or someone else? Patient reports no desire to harm self or others. Initial Sepsis Screen: Does the patient meet any 2 criteria? No. Patient's initial sepsis screen is negative. Does the patient have a suspected source of infection? No. Patient's initial sepsis screen is negative. Care prior to arrival: None. 03:10 Method Of Arrival: EMS: [facility] ea 03:10 Acuity: PAYTON 3 ea Triage Assessment: 03:14 General: Appears in no apparent distress. Behavior is appropriate for age. Pain: ea Complains of pain in body aches. Neuro: Level of Consciousness is awake, alert, obeys commands, Oriented to person, place, time, situation. Cardiovascular: Patient's skin is warm and dry. Respiratory: Airway is patent Respiratory effort is even, unlabored, Respiratory pattern is regular, symmetrical. GI: Reports nausea, vomiting. Derm: Skin is pink, warm \T\ dry. Historical: - Allergies: 03:18 chloradate; ea 03:18 Latex, Natural Rubber; ea 03:18 Morphine; ea 03:18 Vancomycin; ea - Home Meds: 03:18 Zolpidem Tartrate Oral [Active]; mometasone nasal 2 sprays once daily [Active]; ea albuterol sulfate Oral [Active]; amlodipine 10 mg tab 1 tab once daily [Active]; betamethasone valerate 0.1 % Topical crea [Active]; docusate sodium 100 mg Oral cap 1 cap 2 times per day [Active]; iron sulfate 325mg PO [Active]; magnesium oxide 400 mg Oral tab 400 mg twice a day [Active]; magnesium oxide 400 mg Oral tab [Active]; metoprolol tartrate 25 mg Oral tab 0.5 tab 2 times per day [Active]; miralax PO [Active]; mylanta [Active]; ondansetron HCl 8 mg Oral tab 1 tab 2 times per day [Active]; pantoprazole 40 mg Oral TbEC 1 tab once daily [Active]; promethazine 25 mg Oral tab 1 tab every 6 hours [Active]; sertraline 100 mg Oral tab 1 tab once daily [Active]; Xarelto 20 mg Oral tab 1 tab once daily [Active]; xopenex inhaler [Active]; - PMHx: 03:18 ADD/ADHD; Anemia; Asthma; DVT; Hypertension; Kidney stones; Osteomyelitis-L foot; ea osteomyolitis L foot; Sepsis; spina bifida; Upper extremity DVT- L arm; UTI; - Immunization history:: Adult Immunizations up to date. - Social history:: Smoking status: Patient/guardian denies using tobacco. - Ebola Screening: : No symptoms or risks identified at this time. Screenin:13 Abuse screen: Denies threats or abuse. Nutritional screening: No deficits noted. ea Tuberculosis screening: No symptoms or risk factors identified. Fall Risk None identified. Assessment: 03:18 Reassessment: see triage assessment. ea 03:18 General: Appears in no apparent distress. comfortable, Behavior is calm, cooperative, jb4 appropriate for age. Pain: Denies pain. Neuro: Level of Consciousness is awake, alert, obeys commands, Oriented to person, place, time, situation. Cardiovascular: Patient's skin is warm and dry. Respiratory: Airway is patent Respiratory effort is even, unlabored, Respiratory pattern is regular, symmetrical. GI: Abdomen is round non-distended, Bowel sounds present X 4 quads. Abd is soft X 4 quads Abdomen is tender to palpation X 4 quads. : No signs and/or symptoms were reported regarding the genitourinary system. Brown in place to gravity drainage. EENT: Derm: Skin is intact, Skin is dry, Skin is normal, Skin temperature is warm. Musculoskeletal: Circulation, motion, and sensation intact. 04:30 Reassessment: Patient appears in no apparent distress at this time. Patient and/or jb4 family updated on plan of care and expected duration. Pain level reassessed. Patient is alert, oriented x 3, equal unlabored respirations, skin warm/dry/pink. 06:12 Reassessment: Patient appears in no apparent distress at this time. Patient and/or jb4 family updated on plan of care and expected duration. Pain level reassessed. Patient is alert, oriented x 3, equal unlabored respirations, skin warm/dry/pink. PT d/c pending ride home, pt reports not having any one to come and get her EMS called for transfer back home. Patient states feeling better. 06:50 Reassessment: Patient appears in no apparent distress at this time. Patient and/or jb4 family updated on plan of care and expected duration. Pain level reassessed. Patient is alert, oriented x 3, equal unlabored respirations, skin warm/dry/pink. PT transferred home VIA EMS. Vital Signs: 03:12 BP 133 / 100; Pulse 97; Resp 19; Temp 98.9; Pulse Ox 100% ; Weight 63.5 kg; Height 5 ea ft. (152.40 cm); 03:52 BP 134 / 98; Pulse 86; Resp 18; Pulse Ox 99% on R/A; ea 04:30 BP 140 / 90; Pulse 95; Resp 16; Pulse Ox 99% on R/A; jb4 05:30 BP 137 / 87; Pulse 88; Resp 16; Pulse Ox 98% on R/A; jb4 03:12 Body Mass Index 27.34 (63.50 kg, 152.40 cm) ED Course: 03:09 Patient arrived in ED. ea 03:10 Delfino Stoll MD is Attending Physician. tw4 03:10 Maximo Hawkins, RAJNI is Primary Nurse. jb4 03:12 Triage completed. ea 03:13 Patient has correct armband on for positive identification. Bed in low position. Call ea light in reach. Side rails up X2. 03:14 Arm band placed on right wrist. Patient placed in an exam room, on a stretcher, on ea pulse oximetry. 03:25 Flu Sent. jb4 03:38 Inserted saline lock: 24 gauge in left upper arm, using aseptic technique. Blood ea collected. 06:50 No provider procedures requiring assistance completed. IV discontinued, intact, jb4 bleeding controlled, No redness/swelling at site. Pressure dressing applied. Administered Medications: 03:44 Drug: Zofran 4 mg Route: IVP; Site: left upper arm; ea 05:04 Follow up: Response: No adverse reaction ea 03:44 Drug: NS 0.9% 1000 ml Route: IV; Rate: 1 bolus; Site: left upper arm; ea 04:45 Follow up: Response: No adverse reaction; IV Status: Completed infusion; IV Intake: jb4 1000ml 03:48 Drug: TORadol 30 mg Route: IVP; Site: left upper arm; jb4 05:04 Follow up: Response: No adverse reaction ea 04:43 Drug: fentaNYL (PF) 12.5 mcg Route: IVP; Site: left upper arm; ea 05:10 Follow up: Response: No adverse reaction; Pain is decreased; RASS: Alert and Calm (0) jb4 Intake: 04:45 IV: 1000ml; Total: 1000ml. jb4 Outcome: 05:47 Discharge ordered by . tw4 06:50 Discharged to home via ambulance. jb4 06:50 Condition: stable 06:50 Discharge instructions given to patient, Instructed on discharge instructions, follow up and referral plans. medication usage, Demonstrated understanding of instructions, follow-up care, medications, Prescriptions given X 2. 06:51 Patient left the ED. jb4 Signatures: Maximo Hawkins RN RN jb4 Sonya Barragan RN Delfino Jo ea, MD MD tw4
--- NOTE | 2019-08-08 05:48 | EDPHYS ---
Physician Documentation [facility] Name: Leila Aquino Age: 38 yrs Sex: Female : 1980 Arrival Date: 08/08/2019 Time: 03:09 Bed 8 Private MD: ED Physician Delfino Stoll HPI: 08/08 04:01 This 38 yrs old Black Female presents to ER via EMS with complaints of Nausea/Vomiting. tw4 04:01 The patient presents to the emergency department with nausea, vomiting. Onset: The tw4 symptoms/episode began/occurred today. Possible causes: unknown. The symptoms are aggravated by nothing. The symptoms are alleviated by nothing. Severity of symptoms: At their worst the symptoms were moderate in the emergency department the symptoms are unchanged. The patient has not experienced similar symptoms in the past. Historical: - Allergies: 03:18 chloradate; ea 03:18 Latex, Natural Rubber; ea 03:18 Morphine; ea 03:18 Vancomycin; ea - Home Meds: 03:18 Zolpidem Tartrate Oral [Active]; mometasone nasal 2 sprays once daily [Active]; ea albuterol sulfate Oral [Active]; amlodipine 10 mg tab 1 tab once daily [Active]; betamethasone valerate 0.1 % Topical crea [Active]; docusate sodium 100 mg Oral cap 1 cap 2 times per day [Active]; iron sulfate 325mg PO [Active]; magnesium oxide 400 mg Oral tab 400 mg twice a day [Active]; magnesium oxide 400 mg Oral tab [Active]; metoprolol tartrate 25 mg Oral tab 0.5 tab 2 times per day [Active]; miralax PO [Active]; mylanta [Active]; ondansetron HCl 8 mg Oral tab 1 tab 2 times per day [Active]; pantoprazole 40 mg Oral TbEC 1 tab once daily [Active]; promethazine 25 mg Oral tab 1 tab every 6 hours [Active]; sertraline 100 mg Oral tab 1 tab once daily [Active]; Xarelto 20 mg Oral tab 1 tab once daily [Active]; xopenex inhaler [Active]; - PMHx: 03:18 ADD/ADHD; Anemia; Asthma; DVT; Hypertension; Kidney stones; Osteomyelitis-L foot; ea osteomyolitis L foot; Sepsis; spina bifida; Upper extremity DVT- L arm; UTI; - Immunization history:: Adult Immunizations up to date. - Social history:: Smoking status: Patient/guardian denies using tobacco. - Ebola Screening: : No symptoms or risks identified at this time. ROS: 04:01 Constitutional: Negative for fever, chills, and weight loss, Eyes: Negative for injury, tw4 pain, redness, and discharge, Cardiovascular: Negative for chest pain, palpitations, and edema, Respiratory: Negative for shortness of breath, cough, wheezing, and pleuritic chest pain, Back: Negative for injury and pain, MS/Extremity: Negative for injury and deformity, Skin: Negative for injury, rash, and discoloration, Neuro: Negative for headache, weakness, numbness, tingling, and seizure. 04:01 Abdomen/GI: Positive for abdominal pain, nausea and vomiting, nausea, vomiting, Negative for nausea, vomiting, and diarrhea, diarrhea, constipation, abdominal cramps, abdominal distension, anorexia, dysphagia, hematemesis, black/tarry stool, rectal pain, rectal bleeding. Exam: 04:01 Constitutional: This is a well developed, well nourished patient who is awake, alert, tw4 and in no acute distress. Head/Face: Normocephalic, atraumatic. Chest/axilla: Normal chest wall appearance and motion. Nontender with no deformity. No lesions are appreciated. Cardiovascular: Regular rate and rhythm with a normal S1 and S2. No gallops, murmurs, or rubs. Normal PMI, no JVD. No pulse deficits. Respiratory: Lungs have equal breath sounds bilaterally, clear to auscultation and percussion. No rales, rhonchi or wheezes noted. No increased work of breathing, no retractions or nasal flaring. 04:01 Abdomen/GI: Inspection: scar(s), are noted in the umbilical area and suprapubic area, COLOSTOMY IN PLACE. 04:08 Back: No spinal tenderness. No costovertebral tenderness. Full range of motion. MS/ tw4 Extremity: Pulses equal, no cyanosis. Neurovascular intact. Full, normal range of motion. Neuro: Awake and alert, GCS 15, oriented to person, place, time, and situation. Cranial nerves II-XII grossly intact. Motor strength 5/5 in all extremities. Sensory grossly intact. Cerebellar exam normal. Normal gait. 04:08 Abdomen/GI: Bowel sounds: diminished, Palpation: soft, nontender. Vital Signs: 03:12 BP 133 / 100; Pulse 97; Resp 19; Temp 98.9; Pulse Ox 100% ; Weight 63.5 kg; Height 5 ea ft. (152.40 cm); 03:52 BP 134 / 98; Pulse 86; Resp 18; Pulse Ox 99% on R/A; ea 04:30 BP 140 / 90; Pulse 95; Resp 16; Pulse Ox 99% on R/A; jb4 05:30 BP 137 / 87; Pulse 88; Resp 16; Pulse Ox 98% on R/A; jb4 03:12 Body Mass Index 27.34 (63.50 kg, 152.40 cm) ea MDM: 03:16 Patient medically screened. 08/08 03:13 Order name: Flu; Complete Time: 05:27 08/08 05:30 Interpretation: Within normal limits. 08/08 03:23 Order name: Basic Metabolic Panel; Complete Time: 05:27 08/08 05:28 Interpretation: Normal except: GLUC 120. 08/08 03:23 Order name: CBC with Diff; Complete Time: 05:27 4 08/08 05:28 Interpretation: Normal except: LYM% 12.0; BETO% 77.7. 08/08 03:23 Order name: Creatinine for Radiology; Complete Time: 05:27 4 08/08 05:30 Interpretation: Within normal limits: CRE 0.78. 08/08 03:23 Order name: Hepatic Function; Complete Time: 05:27 08/08 05:30 Interpretation: Normal except: TP 8.9; GLOB 5.1; A/G 0.7. 08/08 03:23 Order name: Lipase; Complete Time: 05:27 4 08/08 05:31 Interpretation: Within normal limits: LIP 198. 08/08 03:23 Order name: IV Saline Lock; Complete Time: 03:44 4 08/08 03:23 Order name: Labs collected and sent; Complete Time: 03:44 08/08 05:26 Order name: PO challenge; Complete Time: 06:10 tw4 Administered Medications: 03:44 Drug: Zofran 4 mg Route: IVP; Site: left upper arm; ea 05:04 Follow up: Response: No adverse reaction ea 03:44 Drug: NS 0.9% 1000 ml Route: IV; Rate: 1 bolus; Site: left upper arm; ea 04:45 Follow up: Response: No adverse reaction; IV Status: Completed infusion; IV Intake: jb4 1000ml 03:48 Drug: TORadol 30 mg Route: IVP; Site: left upper arm; jb4 05:04 Follow up: Response: No adverse reaction ea 04:43 Drug: fentaNYL (PF) 12.5 mcg Route: IVP; Site: left upper arm; ea 05:10 Follow up: Response: No adverse reaction; Pain is decreased; RASS: Alert and Calm (0) jb4 Disposition: 08/08/19 05:47 Discharged to Home. Impression: Vomiting, unspecified, Dehydration, Other viral enteritis. - Condition is Stable. - Discharge Instructions: Dehydration, Adult, Nausea and Vomiting, Adult, Viral Gastroenteritis, Adult. - Prescriptions for Bentyl 20 mg Oral Tablet - take 1 tablet by ORAL route every 6 hours As needed; 20 tablet. Zofran 4 mg Oral Tablet - take 1 tablet by ORAL route every 12 hours As needed; 6 tablet. - Medication Reconciliation Form, Thank You Letter, Antibiotic Education, Prescription Opioid Use form. - Follow up: Private Physician; When: Upon discharge from the Emergency Department; Reason: Recheck today's complaints, Continuance of care. - Problem is new. - Symptoms have improved. Signatures: Dispatcher [employer] EDMS Lizett Gordon RN RN aa1 Maximo Hawkins RN RN jb4 Sonya Barragan RN RN ea Wadley, Terrence, MD MD tw4 Corrections: (The following items were deleted from the chart) 06:51 05:47 08/08/2019 05:47 Discharged to Home. Impression: Vomiting, unspecified; jb4 Dehydration; Other viral enteritis. Condition is Stable. Forms are Medication Reconciliation Form, Thank You Letter, Antibiotic Education, Prescription Opioid Use. Follow up: Private Physician; When: Upon discharge from the Emergency Department; Reason: Recheck today's complaints, Continuance of care. Problem is new. Symptoms have improved. tw4
[2019-08-08 07:10] VITALS: TEMP 98.9
[2019-08-08 16:10] VITALS: BP 137/87; O2SAT 98
== END 2019-08-08 06:51 | disposition home or self-care (01) ==
LOC: ER 03:07
DX: A08.39 Other viral enteritis (principal); E86.0 Dehydration; J45.909 Unspecified asthma, uncomplicated; Z91.040 Latex allergy status; Z88.6 Allergy status to analgesic agent; Z88.3 Allergy status to other anti-infective agents
CPT/HCPCS: 96361; 85025; 80048; 36415; 80076; 83690; 87804 ×2; 96375; 96374; 99284; J3010; J7030; J2405

== ENCOUNTER 2019-08-24 19:21 | Emergency (ER) | payer OTHER ==
--- OUTSIDE RECORDS SUMMARY | 2019-08-24 19:26 | XMS REPORT ---
:1980 [facility] [address] [place] [address] Dr. Haile. [address] [place] [address] Care Team Providers Name Role Phone DILMA LOMBARDI WAQAR Unavailable Unavailable DANGELO VERMA MABEL Unavailable Unavailable Problems This patient has no known problems. Allergies, Adverse Reactions, Alerts This patient has no known allergies or adverse reactions. Medications This patient has no known medications. Encounters Start End Encounter Admission Attending Care Care Encounter Date/Time Date/Time Type Type Clinicians Facility Department ID 2018-12-13 Inpatient U [facility] [id number] 17:12:36 2019-01-30 2019-01-30 Emergency E [facility] [id number] 18:32:00 18:32:00 2019-01-22 2019-01-22 Outpatient E [facility] [id number] 05:46:00 05:46:00 2019-01-12 2019-01-12 Outpatient [facility] [id number] 17:47:00 17:47:00 2019-01-06 2019-01-06 Outpatient [facility] [id number] 10:09:00 10:09:00 2018-12-14 2018-12-13 Inpatient E [facility] [id number] 03:28:00 19:10:00 Results Test Description Test Time Test Comments Text Results Atomic Results Result Comments SURGICALLY OBTAINED CULTURE + GRAM STAIN 2018-07-03 12:12:00 Test Item Value Reference Range Comments CULTURE (BEAKER) (test ENTEROCOCCUS SPECIES 2+ Enterococcus drvg=7406) species Ampicillin (test code=26) Linezolid (test code=40) Tetracycline (test code=2) Vancomycin (test code=13) CULTURE (BEAKER) (test 1+ Katie albicans cqnx=7916) CULTURE (BEAKER) (test KLEBSIELLA 1+ Klebsiella ffcw=7392) PNEUMONIAE SSP pneumoniae ssp PNEUMONIAE pneumoniae Amikacin (test code=1) Ampicillin + Sulbactam (test code=6) Aztreonam (test code=32) Cefepime (test code=51) Cefoxitin (test code=68) Ceftazidime (test code=27) Ceftriaxone (test code=52) Ertapenem (test code=38) Gentamicin (test code=18) Levofloxacin (test code=22) Meropenem (test code=34) Nitrofurantoin (test code=23) Piperacillin + Tazobactam (test code=29) Tetracycline (test code=2) Tobramycin (test code=25) Trimethoprim + Sulfamethoxazole (test code=47) CULTURE ([facility]) (test VANCOMYCIN RESISTANT 1+ Vancomycin zbgk=5213) ENTEROCOCCUS SPECIES resistant Enterococcus species Ampicillin (test code=26) Linezolid (test code=40) Vancomycin (test code=13) Daptomycin (test Susceptible 0-4 , No code=59) Interpretations Established <0 or >4 ANAEROBIC [id number] 05:31:00 Test Item Value Reference Range Comments CULTURE (CrucialtecAKER) (test lmry=2744) No anaerobes isolated URINE [id number] 11:06:00 Test Item Value Reference Range Comments CULTURE (CrucialtecAKER) (test 20-29,000 col/mL mlzy=4041) Katie parapsilosis CULTURE (BEAKER) (test PSEUDOMONAS 20-29,000 col/mL msng=9504) AERUGINOSA Pseudomonas aeruginosa Amikacin (test code=1) Susceptible [...] , code=25) Resistant <0 or >4 URINE [id number] 11:03:00 Test Item Value Reference Range Comments CULTURE (BEAKER) (test ENTEROCOCCUS SPECIES >100,000 col/mL bpkw=3342) Enterococcus species Ampicillin (test code=26) Linezolid (test code=40) Nitrofurantoin (test code=23) Tetracycline (test code=2) Vancomycin (test code=13) CULTURE (BEAKER) (test ESCHERICHIA COLI 50-59,000 col/mL xuwq=6264) Escherichia coli Amikacin (test code=1) Ampicillin + Sulbactam (test code=6) Aztreonam (test code=32) Cefepime (test code=51) Cefoxitin (test code=68) Ceftazidime (test code=27) Ceftriaxone (test code=52) Ertapenem (test code=38) Gentamicin (test code=18) Levofloxacin (test code=22) Meropenem (test code=34) Nitrofurantoin (test code=23) Piperacillin + Tazobactam (test code=29) Tetracycline (test code=2) Tobramycin (test code=25) Trimethoprim + Sulfamethoxazole (test code=47) CULTURE (BEAKER) (test ENTEROBACTER CLOACAE 50-59,000 col/mL gfcl=9717) COMPLEX Enterobacter cloacae complex Amikacin (test code=1) Aztreonam (test code=32) Cefepime (test code=51) Cefoxitin (test code=68) Ceftazidime (test code=27) Ceftriaxone (test code=52) Ertapenem (test code=38) Gentamicin (test code=18) Levofloxacin (test code=22) Meropenem (test code=34) Nitrofurantoin (test code=23) Piperacillin + Tazobactam (test code=29) Tetracycline (test code=2) Tobramycin (test code=25) Trimethoprim + Sulfamethoxazole (test code=47) Dr. lopez request for avycaz and zerbaxaCT, [id number] 07:41:00FINAL REPORT INDICATION:37-year-old female status post recent [...] Verified Date/Time : 06/29/2018 07:41:57 Reading Location: [facility] Diagnostic Imaging Reading Room - [place] [address] Electronically signed by: FREDERICK BOYD M.D. on 2017 07:41 AMCBC W/PLT COUNT & AUTO [id number] 07:07:00 Test Item Value Reference Range Comments WHITE BLOOD CELL COUNT 9.2 K/ L 3.5-10.5 (BEAKER) (test efnc=201) RED BLOOD CELL COUNT (BEAKER) 4.41 M/ L 3.93-5.22 (test jjzl=981) HEMOGLOBIN (BEAKER) (test 10.1 GM/DL 11.2-15.7 hloh=957) HEMATOCRIT (BEAKER) (test 33.7 % 34.1-44.9 wisu=072) MEAN CORPUSCULAR VOLUME 76.4 fL 79.4-94.8 (BEAKER) (test whnm=436) MEAN CORPUSCULAR HEMOGLOBIN 22.9 pg 25.6-32.2 (BEAKER) (test dust=993) MEAN CORPUSCULAR HEMOGLOBIN 30.0 GM/DL 32.2-35.5 CONC (BEAKER) (test tvrq=504) RED CELL DISTRIBUTION WIDTH 21.2 % 11.7-14.4 (BEAKER) (test ppit=256) PLATELET COUNT (BEAKER) (test 51 K/CU MM 150-450 pviy=091) MEAN PLATELET VOLUME (BEAKER) fL 9.4-12.3 Unable to report due to (test kpxf=868) abnormal Platelet population distribution. NUCLEATED RED BLOOD CELLS 0 /100 WBC 0-0 (BEAKER) (test adsu=406) NEUTROPHILS RELATIVE PERCENT 71 % (BEAKER) (test aisl=157) LYMPHOCYTES RELATIVE PERCENT 17 % (BEAKER) (test lisf=360) MONOCYTES RELATIVE PERCENT 10 % (BEAKER) (test svck=585) EOSINOPHILS RELATIVE PERCENT 1 % (BEAKER) (test vlft=769) BASOPHILS RELATIVE PERCENT 0 % (BEAKER) (test bsbu=358) NEUTROPHILS ABSOLUTE COUNT 6.59 K/ L 1.56-6.13 (BEAKER) (test qhou=854) LYMPHOCYTES ABSOLUTE COUNT 1.59 K/ L 1.18-3.74 (BEAKER) (test gkmi=922) MONOCYTES ABSOLUTE COUNT 0.91 K/ L 0.24-0.36 (BEAKER) (test rvfi=983) EOSINOPHILS ABSOLUTE COUNT 0.07 K/ L 0.04-0.36 (BEAKER) (test rueh=130) BASOPHILS ABSOLUTE COUNT 0.03 K/ L 0.01-0.08 (BEAKER) (test chdb=733) IMMATURE GRANULOCYTES-RELATIVE 0 % 0-1 PERCENT (BEAKER) (test sxth=9881) BASIC METABOLIC [id number] 06:01:00 Test Item Value Reference Range Comments SODIUM (BEAKER) (test 137 meq/L 136-145 qnyc=329) POTASSIUM (BEAKER) (test 3.7 meq/L 3.5-5.1 hwdz=995) CHLORIDE (BEAKER) (test 112 meq/L 98-107 twke=052) CO2 (BEAKER) (test 17 meq/L 22-29 bunj=472) BLOOD UREA NITROGEN 7 mg/dL 7-21 (BEAKER) (test ksrz=408) CREATININE (BEAKER) (test 0.64 mg/dL 0.57-1.25 bply=849) GLUCOSE RANDOM (BEAKER) 82 mg/dL 70-105 (test hfad=716) CALCIUM (BEAKER) (test 8.9 mg/dL 8.4-10.2 qjkr=125) EGFR (BEAKER) (test 126 mL/min/1.73 sq m ESTIMATED GFR IS NOT uluz=3508) ACCURATE CREATININE CLEARANCE IN PREDICTING GLOMERULAR FILTRATION RATE. ESTIMATED GFR IS NOT APPLICABLE FOR DIALYSIS PATIENTS. CBC W/PLT COUNT & AUTO [id number] 22:22:00 Test Item Value Reference Range Comments WHITE BLOOD CELL COUNT 8.0 K/ L 3.5-10.5 (BEAKER) (test prom=440) RED BLOOD CELL COUNT (BEAKER) 4.53 M/ L 3.93-5.22 (test jcna=413) HEMOGLOBIN (BEAKER) (test 10.5 GM/DL 11.2-15.7 trxh=018) HEMATOCRIT (BEAKER) (test 35.1 % 34.1-44.9 eblg=812) MEAN CORPUSCULAR VOLUME 77.5 fL 79.4-94.8 (BEAKER) (test qmdo=392) MEAN CORPUSCULAR HEMOGLOBIN 23.2 pg 25.6-32.2 (BEAKER) (test tugz=708) MEAN CORPUSCULAR HEMOGLOBIN 29.9 GM/DL 32.2-35.5 CONC (BEAKER) (test fuxg=331) RED CELL DISTRIBUTION WIDTH 20.6 % 11.7-14.4 (BEAKER) (test naai=167) PLATELET COUNT (BEAKER) (test 97 K/CU MM 150-450 ntze=284) MEAN PLATELET VOLUME (BEAKER) fL 9.4-12.3 Unable to report due to (test ykhj=847) abnormal Platelet population distribution. NUCLEATED RED BLOOD CELLS 0 /100 WBC 0-0 (BEAKER) (test suli=915) NEUTROPHILS RELATIVE PERCENT 80 % (BEAKER) (test vqte=155) LYMPHOCYTES RELATIVE PERCENT 16 % (BEAKER) (test mdxy=119) MONOCYTES RELATIVE PERCENT 4 % (BEAKER) (test kubh=033) EOSINOPHILS RELATIVE PERCENT 0 % (BEAKER) (test fdia=493) BASOPHILS RELATIVE PERCENT 0 % (BEAKER) (test ztgt=436) NEUTROPHILS ABSOLUTE COUNT 6.41 K/ L 1.56-6.13 (BEAKER) (test ptqa=780) LYMPHOCYTES ABSOLUTE COUNT 1.24 K/ L 1.18-3.74 (BEAKER) (test klhm=643) MONOCYTES ABSOLUTE COUNT 0.32 K/ L 0.24-0.36 (BEAKER) (test blez=736) EOSINOPHILS ABSOLUTE COUNT 0.00 K/ L 0.04-0.36 (BEAKER) (test uqnm=002) BASOPHILS ABSOLUTE COUNT 0.01 K/ L 0.01-0.08 (BEAKER) (test lsmu=246) IMMATURE GRANULOCYTES-RELATIVE 1 % 0-1 PERCENT (BEAKER) (test utpy=7893) BASIC METABOLIC [id number] 21:08:00 Test Item Value Reference Range Comments SODIUM (BEAKER) (test 135 meq/L 136-145 lmvs=692) POTASSIUM (BEAKER) (test 4.4 meq/L 3.5-5.1 bxdu=834) CHLORIDE (BEAKER) (test 111 meq/L 98-107 hsee=469) CO2 (BEAKER) (test 15 meq/L 22-29 eblx=472) BLOOD UREA NITROGEN 7 mg/dL 7-21 (BEAKER) (test rrcg=219) CREATININE (BEAKER) (test 0.62 mg/dL 0.57-1.25 xzqc=391) GLUCOSE RANDOM (BEAKER) 95 mg/dL 70-105 (test fhph=799) CALCIUM (BEAKER) (test 8.9 mg/dL 8.4-10.2 cdwr=610) EGFR (BEAKER) (test 131 mL/min/1.73 sq m ESTIMATED GFR IS NOT srqd=1307) ACCURATE CREATININE CLEARANCE IN PREDICTING GLOMERULAR FILTRATION RATE. ESTIMATED GFR IS NOT APPLICABLE FOR DIALYSIS PATIENTS. RAD, CHEST, 1 VIEW, NON [id number] 13:37:00Reason for exam:->eval for pneumothoraxReason for exam:->in [...] Charanjit [place] Verified Date/Time: 13:37:49 Reading Location: [facility] Radiology Reading Room CBC W/PLT COUNT & amp; AUTO [id number] 09:50:00 Test Item Value Reference Range Comments WHITE BLOOD CELL COUNT 5.8 K/ L 3.5-10.5 (BEAKER) (test qlop=115) RED BLOOD CELL COUNT (BEAKER) 4.38 M/ L 3.93-5.22 (test fpuz=553) HEMOGLOBIN (BEAKER) (test 10.3 GM/DL 11.2-15.7 kbhh=211) HEMATOCRIT (BEAKER) (test 33.7 % 34.1-44.9 dayb=825) MEAN CORPUSCULAR VOLUME 76.9 fL 79.4-94.8 (BEAKER) (test ikqp=434) MEAN CORPUSCULAR HEMOGLOBIN 23.5 pg 25.6-32.2 (BEAKER) (test kirj=713) MEAN CORPUSCULAR HEMOGLOBIN 30.6 GM/DL 32.2-35.5 CONC (BEAKER) (test aefb=579) RED CELL DISTRIBUTION WIDTH 20.5 % 11.7-14.4 (BEAKER) (test yaml=863) PLATELET COUNT (BEAKER) (test K/CU MM 150-450 Platelet clumps jatq=796) present;unable to report true count. Platelet count should be recollected using an EDTA and CITRATE(blue) tube. MEAN PLATELET VOLUME (BEAKER) fL 9.4-12.3 Unable to report due to (test evox=544) abnormal Platelet population distribution. NUCLEATED RED BLOOD CELLS 0 /100 WBC 0-0 (BEAKER) (test pftp=247) NEUTROPHILS RELATIVE PERCENT 47 % (BEAKER) (test psat=811) LYMPHOCYTES RELATIVE PERCENT 33 % (BEAKER) (test chvz=393) MONOCYTES RELATIVE PERCENT 12 % (BEAKER) (test pwxr=295) EOSINOPHILS RELATIVE PERCENT 8 % (BEAKER) (test qgpk=743) BASOPHILS RELATIVE PERCENT 0 % (BEAKER) (test aasv=133) NEUTROPHILS ABSOLUTE COUNT 2.70 K/ L 1.56-6.13 (BEAKER) (test tsqe=536) LYMPHOCYTES ABSOLUTE COUNT 1.90 K/ L 1.18-3.74 (BEAKER) (test ogdb=683) MONOCYTES ABSOLUTE COUNT 0.66 K/ L 0.24-0.36 (BEAKER) (test jvdq=495) EOSINOPHILS ABSOLUTE COUNT 0.45 K/ L 0.04-0.36 (BEAKER) (test ppom=929) BASOPHILS ABSOLUTE COUNT 0.02 K/ L 0.01-0.08 (BEAKER) (test hcqy=137) IMMATURE GRANULOCYTES-RELATIVE 0 % 0-1 PERCENT (BEAKER) (test irru=5100) FL, 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 [id number] 09:43:00Reason for exam:-> PCNLIs the patient ?->NoWhen [...] Pulido [place]eport Verified Date/Time: 2017 09:43:00 Reading Location:[facility] Radiology Reading Room 09:43 AMBASIC METABOLIC [id number] 07:59:00 Test Item Value Reference Range Comments SODIUM (BEAKER) (test 135 meq/L 136-145 ljfw=882) POTASSIUM (BEAKER) (test 4.2 meq/L 3.5-5.1 ivag=681) CHLORIDE (BEAKER) (test 110 meq/L 98-107 ucvz=652) CO2 (BEAKER) (test 18 meq/L 22-29 ulzc=885) BLOOD UREA NITROGEN 7 mg/dL 7-21 (BEAKER) (test zuwp=770) CREATININE (BEAKER) (test 0.63 mg/dL 0.57-1.25 ndxo=964) GLUCOSE RANDOM (BEAKER) 84 mg/dL 70-105 (test melb=546) CALCIUM (BEAKER) (test 8.6 mg/dL 8.4-10.2 khdm=302) EGFR (BEAKER) (test 128 mL/min/1.73 sq m ESTIMATED GFR IS NOT wduq=2343) ACCURATE CREATININE CLEARANCE IN PREDICTING GLOMERULAR FILTRATION RATE. ESTIMATED GFR IS NOT APPLICABLE FOR DIALYSIS PATIENTS. HEMOGLOBIN AND [id number] 14:41:00 Test Item Value Reference Range Comments HEMOGLOBIN (BEAKER) (test qiws=698) 6.5 GM/DL 11.2-15.7 HEMATOCRIT (BEAKER) (test vsgu=592) 23.1 % 34.1-44.9 BASIC METABOLIC [id number] 08:36:00 Test Item Value Reference Range Comments SODIUM (BEAKER) (test 135 meq/L 136-145 khpp=185) POTASSIUM (BEAKER) (test 4.1 meq/L 3.5-5.1 kaot=047) CHLORIDE (BEAKER) (test 111 meq/L 98-107 wdoh=253) CO2 (BEAKER) (test 18 meq/L 22-29 ypsp=621) BLOOD UREA NITROGEN 8 mg/dL 7-21 (BEAKER) (test vyrd=933) CREATININE (BEAKER) (test 0.61 mg/dL 0.57-1.25 lrff=706) GLUCOSE RANDOM (BEAKER) 75 mg/dL 70-105 (test lpqw=942) CALCIUM (BEAKER) (test 8.4 mg/dL 8.4-10.2 hcgq=647) EGFR (BEAKER) (test 133 mL/min/1.73 sq m ESTIMATED GFR IS NOT xyhy=8009) ACCURATE CREATININE CLEARANCE IN PREDICTING GLOMERULAR FILTRATION RATE. ESTIMATED GFR IS NOT APPLICABLE FOR DIALYSIS PATIENTS. CBC W/PLT COUNT & AUTO [id number] 05:49:00 Test Item Value Reference Range Comments WHITE BLOOD CELL COUNT (BEAKER) (test ouva=128) 5.1 K/ L 3.5-10.5 RED BLOOD CELL COUNT (BEAKER) (test bhvw=259) 3.14 M/ L 3.93-5.22 HEMOGLOBIN (BEAKER) (test xguv=177) 6.3 GM/DL 11.2-15.7 HEMATOCRIT (BEAKER) (test ozov=923) 22.8 % 34.1-44.9 MEAN CORPUSCULAR VOLUME (BEAKER) (test nlqo=805) 72.6 fL 79.4-94.8 MEAN CORPUSCULAR HEMOGLOBIN (BEAKER) (test 20.1 pg 25.6-32.2 spqn=399) MEAN CORPUSCULAR HEMOGLOBIN CONC (BEAKER) (test 27.6 GM/DL 32.2-35.5 hsip=294) RED CELL DISTRIBUTION WIDTH (BEAKER) (test 20.5 % 11.7-14.4 lnkj=287) PLATELET COUNT (BEAKER) (test kzwu=367) 426 K/CU MM 150-450 MEAN PLATELET VOLUME (BEAKER) (test ldms=532) 10.9 fL 9.4-12.3 NUCLEATED RED BLOOD CELLS (BEAKER) (test 0 /100 WBC 0-0 sjui=375) NEUTROPHILS RELATIVE PERCENT (BEAKER) (test 47 % hhba=842) LYMPHOCYTES RELATIVE PERCENT (BEAKER) (test 30 % nbls=118) MONOCYTES RELATIVE PERCENT (BEAKER) (test 13 % qmvs=705) EOSINOPHILS RELATIVE PERCENT (BEAKER) (test 10 % peao=349) BASOPHILS RELATIVE PERCENT (BEAKER) (test 0 % dvgm=143) NEUTROPHILS ABSOLUTE COUNT (BEAKER) (test 2.35 K/ L 1.56-6.13 pqlu=422) LYMPHOCYTES ABSOLUTE COUNT (BEAKER) (test 1.53 K/ L 1.18-3.74 txja=884) MONOCYTES ABSOLUTE COUNT (BEAKER) (test 0.67 K/ L 0.24-0.36 qhan=264) EOSINOPHILS ABSOLUTE COUNT (BEAKER) (test 0.48 K/ L 0.04-0.36 vzuo=334) BASOPHILS ABSOLUTE COUNT (BEAKER) (test 0.01 K/ L 0.01-0.08 hwoo=510) IMMATURE GRANULOCYTES-RELATIVE PERCENT (BEAKER) 0 % 0-1 (test xxqo=3839) HEMOGLOBIN AND [id number] 14:34:00 Test Item Value Reference Range Comments HEMOGLOBIN (BEAKER) (test rsjy=448) 7.0 GM/DL 11.2-15.7 HEMATOCRIT (BEAKER) (test sgnk=414) 24.7 % 34.1-44.9 CBC W/PLT COUNT & AUTO [id number] 10:55:00 Test Item Value Reference Range Comments WHITE BLOOD CELL COUNT 6.0 K/ L 3.5-10.5 (BEAKER) (test juiz=262) RED BLOOD CELL COUNT (BEAKER) 3.59 M/ L 3.93-5.22 (test juwy=908) HEMOGLOBIN (BEAKER) (test 7.3 GM/DL 11.2-15.7 mxmm=316) HEMATOCRIT (BEAKER) (test 25.9 % 34.1-44.9 sbco=481) MEAN CORPUSCULAR VOLUME 72.1 fL 79.4-94.8 (BEAKER) (test ibem=751) MEAN CORPUSCULAR HEMOGLOBIN 20.3 pg 25.6-32.2 (BEAKER) (test konf=112) MEAN CORPUSCULAR HEMOGLOBIN 28.2 GM/DL 32.2-35.5 CONC (BEAKER) (test pfbl=613) RED CELL DISTRIBUTION WIDTH 20.2 % 11.7-14.4 (BEAKER) (test xtyc=597) PLATELET COUNT (BEAKER) (test 592 K/CU MM 150-450 Platelets count from pkwv=349) citrated tube. MEAN PLATELET VOLUME (BEAKER) 9.4 fL 9.4-12.3 (test jubk=089) NUCLEATED RED BLOOD CELLS 0 /100 WBC 0-0 (BEAKER) (test pojy=115) NEUTROPHILS RELATIVE PERCENT 56 % (BEAKER) (test purp=315) LYMPHOCYTES RELATIVE PERCENT 26 % (BEAKER) (test gjgs=386) MONOCYTES RELATIVE PERCENT 10 % (BEAKER) (test sryz=417) EOSINOPHILS RELATIVE PERCENT 8 % (BEAKER) (test dkrj=613) BASOPHILS RELATIVE PERCENT 0 % (BEAKER) (test iwia=948) NEUTROPHILS ABSOLUTE COUNT 3.35 K/ L 1.56-6.13 (BEAKER) (test cafz=670) LYMPHOCYTES ABSOLUTE COUNT 1.53 K/ L 1.18-3.74 (BEAKER) (test gqtz=661) MONOCYTES ABSOLUTE COUNT 0.60 K/ L 0.24-0.36 (BEAKER) (test qctz=444) EOSINOPHILS ABSOLUTE COUNT 0.47 K/ L 0.04-0.36 (BEAKER) (test qhlv=940) BASOPHILS ABSOLUTE COUNT 0.02 K/ L 0.01-0.08 (BEAKER) (test vcev=272) IMMATURE GRANULOCYTES-RELATIVE 0 % 0-1 PERCENT (BEAKER) (test jfwg=8850) BASIC METABOLIC [id number] 06:21:00 Test Item Value Reference Range Comments SODIUM (BEAKER) (test 138 meq/L 136-145 ades=824) POTASSIUM (BEAKER) (test 4.6 meq/L 3.5-5.1 Specimen slightly cocs=408) hemolyzed CHLORIDE (BEAKER) (test 114 meq/L 98-107 hull=157) CO2 (BEAKER) (test 15 meq/L 22-29 axau=095) BLOOD UREA NITROGEN 9 mg/dL 7-21 (BEAKER) (test cpqt=879) CREATININE (BEAKER) (test 0.67 mg/dL 0.57-1.25 Specimen slightly xnhc=568) hemolyzed GLUCOSE RANDOM (BEAKER) 81 mg/dL 70-105 (test acnw=027) CALCIUM (BEAKER) (test 8.6 mg/dL 8.4-10.2 cpyi=828) EGFR (BEAKER) (test 119 mL/min/1.73 sq m ESTIMATED GFR IS NOT cdzs=7592) ACCURATE CREATININE CLEARANCE IN PREDICTING GLOMERULAR FILTRATION RATE. ESTIMATED GFR IS NOT APPLICABLE FOR DIALYSIS PATIENTS. CBC W/PLT COUNT & AUTO [id number] 14:39:00 Test Item Value Reference Range Comments WHITE BLOOD CELL COUNT 5.3 K/ L 3.5-10.5 (BEAKER) (test xqcu=845) RED BLOOD CELL COUNT (BEAKER) 3.55 M/ L 3.93-5.22 (test xoki=586) HEMOGLOBIN (BEAKER) (test 7.3 GM/DL 11.2-15.7 bfis=203) HEMATOCRIT (BEAKER) (test 25.9 % 34.1-44.9 ieaa=859) MEAN CORPUSCULAR VOLUME 73.0 fL 79.4-94.8 (BEAKER) (test fjll=057) MEAN CORPUSCULAR HEMOGLOBIN 20.6 pg 25.6-32.2 (BEAKER) (test zawb=394) MEAN CORPUSCULAR HEMOGLOBIN 28.2 GM/DL 32.2-35.5 CONC (BEAKER) (test bdsj=916) RED CELL DISTRIBUTION WIDTH 20.3 % 11.7-14.4 (BEAKER) (test bxvt=983) PLATELET COUNT (BEAKER) (test 554 K/CU MM 150-450 Platelet Clumps present. wisp=898) Unable to report true count on Purple top. Platelet Count using citrate tube MEAN PLATELET VOLUME (BEAKER) fL 9.4-12.3 Unable to report due to (test wrxn=086) abnormal Platelet population distribution. NUCLEATED RED BLOOD CELLS 0 /100 WBC 0-0 (BEAKER) (test ccyz=277) NEUTROPHILS RELATIVE PERCENT 61 % (BEAKER) (test fsyk=753) LYMPHOCYTES RELATIVE PERCENT 25 % (BEAKER) (test lusu=358) MONOCYTES RELATIVE PERCENT 8 % (BEAKER) (test qjub=890) EOSINOPHILS RELATIVE PERCENT 6 % (BEAKER) (test fylb=675) BASOPHILS RELATIVE PERCENT 0 % (BEAKER) (test pslq=000) NEUTROPHILS ABSOLUTE COUNT 3.25 K/ L 1.56-6.13 (BEAKER) (test dazy=643) LYMPHOCYTES ABSOLUTE COUNT 1.32 K/ L 1.18-3.74 (BEAKER) (test oqmy=481) MONOCYTES ABSOLUTE COUNT 0.40 K/ L 0.24-0.36 (BEAKER) (test gnnn=488) EOSINOPHILS ABSOLUTE COUNT 0.34 K/ L 0.04-0.36 (BEAKER) (test xlyr=431) BASOPHILS ABSOLUTE COUNT 0.01 K/ L 0.01-0.08 (BEAKER) (test bbty=508) IMMATURE GRANULOCYTES-RELATIVE 0 % 0-1 PERCENT (BEAKER) (test kixk=7178) RAD, CHEST, 1 VIEW, NON [id number] 10:16:00Reason for exam:->Post Power PICC insertion RUE for tip verificationShould this be performed at the bedside?- >YesFINAL REPORT AP chest HISTORY: PICC placement COMPARISON: None IMPRESSION:Right arm PICC present with tip at upper SVC. SVC filter present. 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 Grossly normal cardiac silhouette. Right lung clear. Moderate left effusion. Signed: Satish Kerr MDReport VerifiedDate/Time: 06/25/2018 10:16:18 Reading Location: [facility] B1 [id number] Ortho Consult Reading Room BASIC METABOLIC [id number] 09:58:00 Test Item Value Reference Range Comments SODIUM (BEAKER) (test 136 meq/L 136-145 qmed=487) POTASSIUM (BEAKER) (test 4.4 meq/L 3.5-5.1 Specimen slightly rkhv=169) hemolyzed CHLORIDE (BEAKER) (test 107 meq/L 98-107 uftf=455) CO2 (BEAKER) (test 23 meq/L 22-29 efnz=803) BLOOD UREA NITROGEN 11 mg/dL 7-21 (BEAKER) (test fpuz=098) CREATININE (BEAKER) (test 0.68 mg/dL 0.57-1.25 Specimen slightly stje=644) hemolyzed GLUCOSE RANDOM (BEAKER) 92 mg/dL 70-105 (test qlab=672) CALCIUM (BEAKER) (test 8.9 mg/dL 8.4-10.2 fdyl=055) EGFR (BEAKER) (test 117 mL/min/1.73 sq m ESTIMATED GFR IS NOT hlwd=8401) ACCURATE CREATININE CLEARANCE IN PREDICTING GLOMERULAR FILTRATION RATE. ESTIMATED GFR IS NOT APPLICABLE FOR DIALYSIS PATIENTS. CBC W/PLT COUNT & AUTO [id number] 13:38:00 Test Item Value Reference Range Comments WHITE BLOOD CELL COUNT 7.5 K/ L 3.5-10.5 (BEAKER) (test pzrd=259) RED BLOOD CELL COUNT (BEAKER) 4.45 M/ L 3.93-5.22 (test anqp=941) HEMOGLOBIN (BEAKER) (test 9.2 GM/DL 11.2-15.7 mdrl=498) HEMATOCRIT (BEAKER) (test 32.4 % 34.1-44.9 lurb=536) MEAN CORPUSCULAR VOLUME 72.8 fL 79.4-94.8 (BEAKER) (test ewen=646) MEAN CORPUSCULAR HEMOGLOBIN 20.7 pg 25.6-32.2 (BEAKER) (test malt=572) MEAN CORPUSCULAR HEMOGLOBIN 28.4 GM/DL 32.2-35.5 CONC (BEAKER) (test eicj=002) RED CELL DISTRIBUTION WIDTH 20.6 % 11.7-14.4 (BEAKER) (test hqjk=568) PLATELET COUNT (BEAKER) (test 275 K/CU MM 150-450 owfz=778) MEAN PLATELET VOLUME (BEAKER) fL 9.4-12.3 Unable to report due to (test zvxc=016) abnormal Platelet population distribution. NUCLEATED RED BLOOD CELLS 0 /100 WBC 0-0 (BEAKER) (test wuii=865) NEUTROPHILS RELATIVE PERCENT 65 % (BEAKER) (test cydh=218) LYMPHOCYTES RELATIVE PERCENT 23 % (BEAKER) (test iifr=933) MONOCYTES RELATIVE PERCENT 8 % (BEAKER) (test frex=207) EOSINOPHILS RELATIVE PERCENT 4 % (BEAKER) (test huzi=656) BASOPHILS RELATIVE PERCENT 0 % (BEAKER) (test ijju=926) NEUTROPHILS ABSOLUTE COUNT 4.86 K/ L 1.56-6.13 (BEAKER) (test scjt=851) LYMPHOCYTES ABSOLUTE COUNT 1.69 K/ L 1.18-3.74 (BEAKER) (test jlwz=029) MONOCYTES ABSOLUTE COUNT 0.60 K/ L 0.24-0.36 (BEAKER) (test hzen=310) EOSINOPHILS ABSOLUTE COUNT 0.30 K/ L 0.04-0.36 (BEAKER) (test yiny=383) BASOPHILS ABSOLUTE COUNT 0.02 K/ L 0.01-0.08 (BEAKER) (test eelh=912) IMMATURE GRANULOCYTES-RELATIVE 0 % 0-1 PERCENT (BEAKER) (test dxyj=2522) BASIC METABOLIC [id number] 13:03:00 Test Item Value Reference Range Comments SODIUM (BEAKER) (test 134 meq/L 136-145 pwch=942) POTASSIUM (BEAKER) (test 4.3 meq/L 3.5-5.1 bbcn=170) CHLORIDE (BEAKER) (test 104 meq/L 98-107 ycrl=885) CO2 (BEAKER) (test 19 meq/L 22-29 cxmy=474) BLOOD UREA NITROGEN 11 mg/dL 7-21 (BEAKER) (test brsl=467) CREATININE (BEAKER) (test 0.72 mg/dL 0.57-1.25 xmdu=202) GLUCOSE RANDOM (BEAKER) 82 mg/dL 70-105 (test zjaf=254) CALCIUM (BEAKER) (test 9.7 mg/dL 8.4-10.2 dpxr=517) EGFR (BEAKER) (test 110 mL/min/1.73 sq m ESTIMATED GFR IS NOT cvca=1127) ACCURATE CREATININE CLEARANCE IN PREDICTING GLOMERULAR FILTRATION RATE. ESTIMATED GFR IS NOT APPLICABLE FOR DIALYSIS PATIENTS. BODY FLUID CULTURE + GRAM [id number] 16:53:00 Test Item Value Reference Range Comments CULTURE (BEAKER) (test ENTEROBACTER CLOACAE 2+ Enterobacter tmps=4923) COMPLEX cloacae complexESBL PositiveAmpC Positive Amikacin (test code=1) Aztreonam (test code=32) Cefepime (test code=51) Cefoxitin (test code=68) Ceftazidime (test code=27) Ceftriaxone (test code=52) Ertapenem (test code=38) Gentamicin (test code=18) Levofloxacin (test code=22) Meropenem (test code=34) Nitrofurantoin (test code=23) Piperacillin + Tazobactam (test code=29) Tetracycline (test code=2) Tobramycin (test code=25) Trimethoprim + Sulfamethoxazole (test code=47) CULTURE (BEAKER) (test ENTEROCOCCUS SPECIES 2+ Enterococcus dcim=1816) species Ampicillin (test code=26) Linezolid (test code=40) Vancomycin (test code=13) CULTURE (BEAKER) (test 2+ Katie vndy=3090) parapsilosis GRAM STAIN RESULT (BEAKER) No organisms seen (test cptx=6868) GRAM STAIN RESULT (BEAKER) 1+ White blood cells (test fzgf=368690) seen URINE [id number] 10:14:00 Test Item Value Reference Range Comments CULTURE (BEAKER) (test ENTEROBACTER CLOACAE >100,000 col/mL wxda=6346) COMPLEX Enterobacter cloacae complex Amikacin (test code=1) Aztreonam (test code=32) Cefepime (test code=51) Cefoxitin (test code=68) Ceftazidime (test code=27) Ceftriaxone (test code=52) Gentamicin (test code=18) Levofloxacin (test code=22) Meropenem (test code=34) Nitrofurantoin (test code=23) Piperacillin + Tazobactam (test code=29) Tetracycline (test code=2) Tobramycin (test code=25) Trimethoprim + Sulfamethoxazole (test code=47) CULTURE (BEAKER) (test PSEUDOMONAS 30-39,000 col/mL pwmd=8929) AERUGINOSA Pseudomonas aeruginosa Amikacin (test code=1) Susceptible [...] CULTURE (BEAKER) (test ENTEROCOCCUS SPECIES 50-59,000 col/mL pfkq=7617) Enterococcus species Ampicillin (test code=26) Linezolid (test code=40) Nitrofurantoin (test code=23) Tetracycline (test code=2) Vancomycin (test code=13) BLOOD [id number] 11:00:00 Test Item Value Reference Range Comments CULTURE (BEAKER) (test wpqu=3112) No growth in 5 days BLOOD [id number] 06:00:00 Test Item Value Reference Range Comments CULTURE (BEAKER) (test jevd=7454) No growth in 5 days BASIC METABOLIC [id number] 04:43:00 Test Item Value Reference Range Comments SODIUM (BEAKER) (test 141 meq/L 136-145 bcow=237) POTASSIUM (BEAKER) (test 3.7 meq/L 3.5-5.1 tmab=394) CHLORIDE (BEAKER) (test 112 meq/L 98-107 stha=307) CO2 (BEAKER) (test 21 meq/L 22-29 blib=678) BLOOD UREA NITROGEN 12 mg/dL 7-21 (BEAKER) (test bnhz=181) CREATININE (BEAKER) (test 0.63 mg/dL 0.57-1.25 tjaj=110) GLUCOSE RANDOM (BEAKER) 83 mg/dL 70-105 (test zvul=142) CALCIUM (BEAKER) (test 8.9 mg/dL 8.4-10.2 xcnh=335) EGFR (BEAKER) (test 128 mL/min/1.73 sq m ESTIMATED GFR IS NOT zemw=3629) ACCURATE CREATININE CLEARANCE IN PREDICTING GLOMERULAR FILTRATION RATE. ESTIMATED GFR IS NOT APPLICABLE FOR DIALYSIS PATIENTS. URINALYSIS W/ REFLEX URINE [id number] 15:11:00 Test Item Value Reference Range Comments COLOR (BEAKER) (test ldrq=982) [place] CLARITY (BEAKER) (test lmgb=167) Hazy SPECIFIC GRAVITY UA (BEAKER) (test fgme=875) 1.013 1.001-1.035 PH UA (BEAKER) (test xhyj=123) 6.0 5.0-8.0 PROTEIN UA (BEAKER) (test ijoj=378) 100 mg/dL Negative GLUCOSE UA (BEAKER) (test luig=075) Negative Negative KETONES UA (BEAKER) (test iska=785) Trace Negative BILIRUBIN UA (BEAKER) (test kowc=131) Negative Negative BLOOD UA (BEAKER) (test zrup=053) Large Negative NITRITE UA (BEAKER) (test pexe=766) Negative Negative LEUKOCYTE ESTERASE UA (BEAKER) (test znaj=692) Large Negative UROBILINOGEN UA (BEAKER) (test wzdn=279) 0.2 mg/dL 0.2-1.0 RBC UA (BEAKER) (test odnw=688) > /HPF WBC UA (BEAKER) (test yajc=554) 68 /HPF MUCUS (BEAKER) (test zydt=7368) Rare SOURCE(BEAKER) (test foie=3887) ANG, NEPHROSTOMY, PERC, EXTERNAL [id number] 13:43:00Reason for exam:-> right obstructing stone with UTI, needs right PCNU if possible or PCN if notFINAL REPORT Fluoroscopic and ultrasound guided right nephroureterostomy tube placement, 06/12/2018. Clinical History: Obstructing stone at the junction of the right distal ureter and ileoconduit with hydronephrosis and urosepsis. Patient has a history of spina bifida/caudal regression. Modality: Sonography and fluoroscopy Commercial Baker Helper: Faisal Felix MD. Outside Rigger: None. Sedation: General anesthesia provided by the [...] then removed. The tract wasdilated to 8 Welsh. An 8.5 Welsh by 28 cm nephroureterostomy catheter was then [...] Felixeport Verified Date/Time: 06/12/2018 13:43:17 Reading Location: [facility] P048 Angio Body Reading Room CBC (HEMOGRAM ONLY)2018-06-12 10:29:00 Test Item Value Reference Range Comments WHITE BLOOD CELL COUNT (BEAKER) 8.5 K/ L 3.5-10.5 (test nkbh=197) RED BLOOD CELL COUNT (BEAKER) 4.23 M/ L 3.93-5.22 (test srms=633) HEMOGLOBIN (BEAKER) (test 9.1 GM/DL 11.2-15.7 lyxr=304) HEMATOCRIT (BEAKER) (test 31.4 % 34.1-44.9 agmc=104) MEAN CORPUSCULAR VOLUME 74.2 fL 79.4-94.8 (BEAKER) (test ovqi=325) MEAN CORPUSCULAR HEMOGLOBIN 21.5 pg 25.6-32.2 (BEAKER) (test spjj=104) MEAN CORPUSCULAR HEMOGLOBIN 29.0 GM/DL 32.2-35.5 CONC (BEAKER) (test epty=269) RED CELL DISTRIBUTION WIDTH 20.4 % 11.7-14.4 (BEAKER) (test zqsv=530) PLATELET COUNT (BEAKER) (test K/CU MM 150-450 Platelet clumps present, gcbp=605) unable to report true platelet. Recommend recollect using EDTA tube and blue (Citrate) tube. spoke to RN ID:[id number] NUCLEATED RED BLOOD CELLS 0 /100 WBC 0-0 (BEAKER) (test bxlg=449) BASIC METABOLIC [id number] 06:52:00 Test Item Value Reference Range Comments SODIUM (BEAKER) (test 137 meq/L 136-145 ujzo=547) POTASSIUM (BEAKER) (test 3.6 meq/L 3.5-5.1 mcif=388) CHLORIDE (BEAKER) (test 108 meq/L 98-107 iwgu=697) CO2 (BEAKER) (test 20 meq/L 22-29 ujxm=564) BLOOD UREA NITROGEN 14 mg/dL 7-21 (BEAKER) (test adkm=777) CREATININE (BEAKER) (test 0.66 mg/dL 0.57-1.25 bylt=124) GLUCOSE RANDOM (BEAKER) 87 mg/dL 70-105 (test qwcb=083) CALCIUM (BEAKER) (test 9.1 mg/dL 8.4-10.2 ducf=967) EGFR (BEAKER) (test 121 mL/min/1.73 sq m ESTIMATED GFR IS NOT mvqk=5493) ACCURATE CREATININE CLEARANCE IN PREDICTING GLOMERULAR FILTRATION RATE. ESTIMATED GFR IS NOT APPLICABLE FOR DIALYSIS PATIENTS. [id number] 06:37:00 Test Item Value Reference Range Comments PROTIME (BEAKER) (test qkyi=126) 14.4 seconds 11.7-14.7 INR (BEAKER) (test eodv=506) 1.1 <=5.9 PARTIAL THROMBOPLASTIN TIME (BEAKER) (test 30.8 seconds 22.5-36.0 jmiw=852) RECOMMENDED COUMADIN/WARFARIN INR THERAPY RANGESSTANDARD DOSE: 2.0 - 3.0 Includes: PROPHYLAXIS forvenous thrombosis, systemic embolization; TREATMENT for venous thrombosis and/or pulmonary embolus.HIGH RISK: Target INR is 2.5-3.5 for patients with mechanical heart valves.CT, [id number] 18:04:00FINAL REPORT CT scan of the abdomen [...] MDReport Verified Date/Time: 06/11/2018 18:04:02 Reading Location: [facility] [id number] Ortho Consult Reading Room PREGNANCY SCREEN, [id number] 15:46:00 Test Item Value Reference Range Comments TEST URINE (BEAKER) (test ixib=901) Negative URINALYSIS W/ REFLEX URINE [id number] 12:32:00 Test Item Value Reference Range Comments COLOR (BEAKER) (test nspu=947) Light Yellow CLARITY (BEAKER) (test kapq=149) Cloudy SPECIFIC GRAVITY UA (BEAKER) (test kera=826) 1.013 1.001-1.035 PH UA (BEAKER) (test opio=344) 7.5 5.0-8.0 PROTEIN UA (BEAKER) (test ppoj=504) 30 mg/dL Negative GLUCOSE UA (BEAKER) (test vdcl=702) Negative Negative KETONES UA (BEAKER) (test cuan=019) Trace Negative BILIRUBIN UA (BEAKER) (test ebwd=083) Negative Negative BLOOD UA (BEAKER) (test ryuh=298) Small Negative NITRITE UA (BEAKER) (test iyfh=881) Positive Negative LEUKOCYTE ESTERASE UA (BEAKER) (test mpzq=179) Large Negative UROBILINOGEN UA (BEAKER) (test jacj=718) 0.2 mg/dL 0.2-1.0 RBC UA (BEAKER) (test vwjh=510) 2 /HPF WBC UA (BEAKER) (test vzrl=847) 5 /HPF BACTERIA (BEAKER) (test srmz=899) Occasional MUCUS (BEAKER) (test tzbs=7574) Rare SQUAMOUS EPITHELIAL (BEAKER) (test jqfn=769) 1 /HPF HYALINE CASTS (BEAKER) (test pmzp=072) 2 /LPF SOURCE(BEAKER) (test iujk=6679) URINALYSIS W/ [id number] 12:32:00 Test Item Value Reference Range Comments COLOR (BEAKER) (test zqep=627) Yellow CLARITY (BEAKER) (test kliu=550) Hazy SPECIFIC GRAVITY UA (BEAKER) (test ierx=498) 1.012 1.001-1.035 PH UA (BEAKER) (test khjq=490) 8.0 5.0-8.0 PROTEIN UA (BEAKER) (test hqob=057) 50 mg/dL Negative GLUCOSE UA (BEAKER) (test xxbl=504) Negative Negative KETONES UA (BEAKER) (test fkfx=948) Negative Negative BILIRUBIN UA (BEAKER) (test krkf=009) Negative Negative BLOOD UA (BEAKER) (test hook=335) Moderate Negative NITRITE UA (BEAKER) (test lyhh=311) Positive Negative LEUKOCYTE ESTERASE UA (BEAKER) (test Large Negative eeoa=787) UROBILINOGEN UA (BEAKER) (test qbvv=715) 0.2 mg/dL 0.2-1.0 RBC UA (BEAKER) (test sgou=142) 6 /HPF WBC UA (BEAKER) (test vvww=378) 10 /HPF BACTERIA (BEAKER) (test plzh=679) Many MUCUS (BEAKER) (test nzsx=4205) Many CRYSTALS, URINE (BEAKER) (test wdfa=1550) Occasional SOURCE(BEAKER) (test mqgk=6944) Urine, Urostomy BASIC METABOLIC [id number] 06:01:00 Test Item Value Reference Range Comments SODIUM (BEAKER) (test 139 meq/L 136-145 yuns=735) POTASSIUM (BEAKER) (test 3.6 meq/L 3.5-5.1 hokv=332) CHLORIDE (BEAKER) (test 108 meq/L 98-107 zgdu=448) CO2 (BEAKER) (test 23 meq/L 22-29 iwnt=725) BLOOD UREA NITROGEN 12 mg/dL 7-21 (BEAKER) (test fxrw=196) CREATININE (BEAKER) (test 0.66 mg/dL 0.57-1.25 gboq=769) GLUCOSE RANDOM (BEAKER) 75 mg/dL 70-105 (test lnyh=644) CALCIUM (BEAKER) (test 8.7 mg/dL 8.4-10.2 qcil=976) EGFR (BEAKER) (test 121 mL/min/1.73 sq m ESTIMATED GFR IS NOT pfly=5769) ACCURATE CREATININE CLEARANCE IN PREDICTING GLOMERULAR FILTRATION RATE. ESTIMATED GFR IS NOT APPLICABLE FOR DIALYSIS PATIENTS. LACTIC ACID, VENOUS, WHOLE [id number] 05:31:00 Test Item Value Reference Range Comments LACTATE BLOOD VENOUS (2) (BEAKER) (test 0.8 mmol/L 0.5-2.2 qqrx=1654) Effective 01/01/2016: Units/Reference Range ChangeNew: 0.5-2.2 mmol/L Previous: 5 -20 mg/[id number] 05:20:00 Test Item Value Reference Range Comments PARTIAL THROMBOPLASTIN TIME (BEAKER) (test 35.9 seconds 22.5-36.0 nmhy=499) PROTHROMBIN TIME/[id number] 05:19:00 Test Item Value Reference Range Comments PROTIME (BEAKER) (test lprs=076) 16.4 seconds 11.7-14.7 INR (BEAKER) (test hxdr=278) 1.3 <=5.9 RECOMMENDED COUMADIN/WARFARIN INR THERAPY RANGESSTANDARD DOSE: 2.0 - 3.0 Includes: PROPHYLAXIS forvenous thrombosis, systemic embolization; TREATMENT for venous thrombosis and/or pulmonary embolus.HIGH RISK: Target INR is 2.5-3.5 for patients with mechanical heart valves.CBC W/PLT COUNT & AUTO [id number] 05:08:00 Test Item Value Reference Range Comments WHITE BLOOD CELL COUNT 12.2 K/ L 3.5-10.5 (BEAKER) (test kqos=765) RED BLOOD CELL COUNT (BEAKER) 4.90 M/ L 3.93-5.22 (test ldnu=270) HEMOGLOBIN (BEAKER) (test 10.6 GM/DL 11.2-15.7 xgau=903) HEMATOCRIT (BEAKER) (test 36.6 % 34.1-44.9 eywn=737) MEAN CORPUSCULAR VOLUME 74.7 fL 79.4-94.8 (BEAKER) (test psed=788) MEAN CORPUSCULAR HEMOGLOBIN 21.6 pg 25.6-32.2 (BEAKER) (test lchg=390) MEAN CORPUSCULAR HEMOGLOBIN 29.0 GM/DL 32.2-35.5 CONC (BEAKER) (test rjap=635) RED CELL DISTRIBUTION WIDTH 20.5 % 11.7-14.4 (BEAKER) (test ruvv=073) PLATELET COUNT (BEAKER) (test 340 K/CU MM 150-450 zssh=707) MEAN PLATELET VOLUME (BEAKER) 9.4 fL 9.4-12.3 Discordant MPV result (test oacw=195) compared to previous one; Clinical correlation required. NUCLEATED RED BLOOD CELLS 0 /100 WBC 0-0 (BEAKER) (test fsqs=129) NEUTROPHILS RELATIVE PERCENT 89 % (BEAKER) (test erjd=599) LYMPHOCYTES RELATIVE PERCENT 5 % (BEAKER) (test ztnk=156) MONOCYTES RELATIVE PERCENT 4 % (BEAKER) (test vbah=963) EOSINOPHILS RELATIVE PERCENT 2 % (BEAKER) (test ecau=048) BASOPHILS RELATIVE PERCENT 0 % (BEAKER) (test icle=636) NEUTROPHILS ABSOLUTE COUNT 10.83 K/ L 1.56-6.13 (BEAKER) (test nenn=812) LYMPHOCYTES ABSOLUTE COUNT 0.60 K/ L 1.18-3.74 (BEAKER) (test vdbs=512) MONOCYTES ABSOLUTE COUNT 0.45 K/ L 0.24-0.36 (BEAKER) (test vgta=558) EOSINOPHILS ABSOLUTE COUNT 0.19 K/ L 0.04-0.36 (BEAKER) (test hqri=084) BASOPHILS ABSOLUTE COUNT 0.03 K/ L 0.01-0.08 (BEAKER) (test jqas=091) IMMATURE 1 % 0-1 GRANULOCYTES-RELATIVE PERCENT (BEAKER) (test khum=2339) LACTIC ACID, ARTERIAL, WHOLE [id number] 02:05:00 Test Item Value Reference Range Comments LACTATE BLOOD ARTERIAL (2) 0.6 mmol/L 0.5-2.2 Specimen slightly hemolyzed (BEAKER) (test loat=9220) Effective 01/01/2016: Units/Reference Range ChangeNew: 0.5-2.2 mmol/L Previous: 5 -20 mg/[id number] 01:43:00 Test Item Value Reference Range Comments MAGNESIUM (BEAKER) (test 2.0 mg/dL 1.6-2.6 Specimen moderately hemolyzed zoai=867) [id number] 01:43:00 Test Item Value Reference Range Comments PHOSPHORUS (BEAKER) (test 3.0 mg/dL 2.3-4.7 Specimen moderately hemolyzed kvxt=730) COMPREHENSIVE METABOLIC [id number] 01:43:00 Test Item Value Reference Range Comments TOTAL PROTEIN (BEAKER) 7.3 gm/dL 6.0-8.3 Specimen moderately (test kmsq=098) hemolyzed ALBUMIN (BEAKER) (test 3.3 g/dL 3.5-5.0 Specimen moderately wjva=3813) hemolyzed ALKALINE PHOSPHATASE 56 U/L 40-150 (BEAKER) (test dkmu=508) BILIRUBIN TOTAL (BEAKER) 0.4 mg/dL 0.2-1.2 Specimen moderately (test jxgg=735) hemolyzed SODIUM (BEAKER) (test 133 meq/L 136-145 ybjx=017) POTASSIUM (BEAKER) (test 4.5 meq/L 3.5-5.1 Specimen moderately zrph=219) hemolyzed CHLORIDE (BEAKER) (test 108 meq/L 98-107 lfbl=255) CO2 (BEAKER) (test 15 meq/L 22-29 nxav=180) BLOOD UREA NITROGEN 12 mg/dL 7-21 (BEAKER) (test ushe=092) CREATININE (BEAKER) (test 0.61 mg/dL 0.57-1.25 Specimen moderately dydd=642) hemolyzed GLUCOSE RANDOM (BEAKER) 92 mg/dL 70-105 (test luds=519) CALCIUM (BEAKER) (test 8.3 mg/dL 8.4-10.2 wxhb=292) AST (SGOT) (BEAKER) (test 35 U/L 5-34 Specimen moderately onyn=284) hemolyzed ALT (SGPT) (BEAKER) (test 14 U/L 6-55 Specimen moderately ymcb=330) hemolyzed EGFR (BEAKER) (test 133 mL/min/1.73 sq ESTIMATED GFR IS NOT mysh=8431) m ACCURATE CREATININE CLEARANCE IN PREDICTING GLOMERULAR FILTRATION RATE. ESTIMATED GFR IS NOT APPLICABLE FOR DIALYSIS PATIENTS. CBC W/PLT COUNT & AUTO [id number] 01:20:00 Test Item Value Reference Range Comments WHITE BLOOD CELL COUNT (BEAKER) (test ixgt=514) 21.0 K/ L 3.5-10.5 RED BLOOD CELL COUNT (BEAKER) (test xhvh=612) 3.83 M/ L 3.93-5.22 HEMOGLOBIN (BEAKER) (test qyli=623) 8.4 GM/DL 11.2-15.7 HEMATOCRIT (BEAKER) (test kpkl=600) 28.3 % 34.1-44.9 MEAN CORPUSCULAR VOLUME (BEAKER) (test lzoy=381) 73.9 fL 79.4-94.8 MEAN CORPUSCULAR HEMOGLOBIN (BEAKER) (test 21.9 pg 25.6-32.2 ztfp=953) MEAN CORPUSCULAR HEMOGLOBIN CONC (BEAKER) (test 29.7 GM/DL 32.2-35.5 vjzz=672) RED CELL DISTRIBUTION WIDTH (BEAKER) (test 20.3 % 11.7-14.4 yogg=173) PLATELET COUNT (BEAKER) (test zrjw=680) 398 K/CU MM 150-450 MEAN PLATELET VOLUME (BEAKER) (test qrnr=582) 10.2 fL 9.4-12.3 NUCLEATED RED BLOOD CELLS (BEAKER) (test 0 /100 WBC 0-0 wiha=616) NEUTROPHILS RELATIVE PERCENT (BEAKER) (test 87 % rgad=267) LYMPHOCYTES RELATIVE PERCENT (BEAKER) (test 6 % cvnq=589) MONOCYTES RELATIVE PERCENT (BEAKER) (test 6 % khfm=025) EOSINOPHILS RELATIVE PERCENT (BEAKER) (test 1 % ggne=678) BASOPHILS RELATIVE PERCENT (BEAKER) (test 0 % tzqq=831) NEUTROPHILS ABSOLUTE COUNT (BEAKER) (test 18.34 K/ L 1.56-6.13 xdfu=750) LYMPHOCYTES ABSOLUTE COUNT (BEAKER) (test 1.15 K/ L 1.18-3.74 cqqj=878) MONOCYTES ABSOLUTE COUNT (BEAKER) (test 1.21 K/ L 0.24-0.36 fbdm=981) EOSINOPHILS ABSOLUTE COUNT (BEAKER) (test 0.13 K/ L 0.04-0.36 hdaa=178) BASOPHILS ABSOLUTE COUNT (BEAKER) (test 0.06 K/ L 0.01-0.08 bhko=054) IMMATURE GRANULOCYTES-RELATIVE PERCENT (BEAKER) 1 % 0-1 (test pnio=6564)
[2019-08-24] MEDS ORDERED: IBUPROFEN 400 MG TAB ONE (19:54)
[2019-08-24] MEDS ORDERED: IBUPROFEN 200 MG TAB PO ONE (19:54)
[2019-08-24] MEDS ORDERED: NA CHLORIDE 0.9% 1,000 ML ONE ×2 (19:54→20:52)
[2019-08-24] MEDS ORDERED: PIPER/TAZO/NS 3.375gm 3.375 GM/100 ML BAG ONE (19:54)
[2019-08-24] MEDS ORDERED: PROMETHAZINE 25 MG/ML VIAL ONE (20:23)
[2019-08-24 20:31] LABS: ALT/SGPT 41 U/L (12-78); AST/SGOT 53 U/L (15-37); Albumin 3.2 g/dL (3.4-5.0); Alkaline Phosphatase 105 U/L (45-117); BUN Blood Urea Nitrogen 20 mg/dL (7-18); Bicarbonate 20 mmol/L (21-32); Bilirubin Direct 0.5 mg/dL (0-0.2); Bilirubin Total 0.9 mg/dL (0.2-1.0); CKMB Creatine Kinase MB < 1.0 ng/mL (0.3-3.6); Creatine Phosphokinase 29 U/L (26-192); Glucose Level 112 mg/dL (74-106); Lipase 160 U/L (73-393); Potassium 3.5 mmol/L (3.5-5.1); Protein, Total 8.3 g/dL (6.4-8.2); Sodium Level 139 mmol/L (136-145); Troponin (Emerg Dept Use Only) < 0.02 ng/mL (0.0-0.045)
[2019-08-24 20:33] LABS: Urine Blood TRACE (NEG); Urine Glucose NEGATIVE (NEG); Urine Protein 2+ (NEG); Urine pH 7.5 (5.0-7.0)
[2019-08-24 20:45] LABS: Protime INR 1.26
[2019-08-24 20:57] LABS: Urine Amorphous Sediment 3+ /HPF (NONE SEEN); Urine Bacteria LOADED /HPF (<20); Urine Culture Reflex Order NOT NEEDED; Urine RBC <5 /HPF (NONE SEEN)
[2019-08-24 21:08] LABS: Absolute Lymphocytes (CBC) 0.3 K/uL (0.7-4.9); Basophils % 0.1 % (0-1.3); Lymphocytes % 5.8 % (15.3-44.8); MPV 7.2 fL (7.6-11.3); RBC Red Blood Cell Count 4.56 M/uL (3.86-4.86)
[2019-08-24 21:20] LABS: Platelet Estimate ADEQ
[2019-08-24 21:21] LABS: Blood Morphology Comment NOT SEEN (NOT SEEN)
[2019-08-24 21:24] LABS: Hematocrit 41.8 % (36.0-45.0)
[2019-08-24] MEDS ORDERED: ACETAMINOPHEN 500 MG TAB ONE (21:49)
[2019-08-24] MEDS ORDERED: FENTANYL CITR 100 MCG/2 ML ONE (21:49)
--- NOTE | 2019-08-24 22:34 | ER ---
Nurse's Notes [facility] Name: Leila Aquino Age: 38 yrs Sex: Female : 1980 Arrival Date: 08/24/2019 Time: 19:26 Bed 26 Private MD: Diagnosis: Sepsis, unspecified organism;Urinary tract infection, site not specified;Hydronephrosis with renal and ureteral calculous obstruction;Spina bifida, unspecified;Pressure ulcer of buttock Presentation: 08/24 19:26 Presenting complaint: Patient states: headache, vomiting, abd pain started this AM. sr5 Indwelling urinary catheter with foul odor noted. EMS reports tachycardia, given Zofran 2mg IM en route. Pt alert, oriented x 4, equal unlabored resp, skin hot/dry. Transition of care: patient was not received from another setting of care. Onset of symptoms was August 24, 2019. Risk Assessment: Do you want to hurt yourself or someone else? Patient reports no desire to harm self or others. Initial Sepsis Screen: Does the patient meet any 2 criteria? RR > 20 per min. HR > 90 bpm. Yes Does the patient have a suspected source of infection? Yes: Catheter related infection (Brown/dialysis/PICC/central line) If YES to both, name of provider notified: Burton Rodrigez MD Care prior to arrival: Medication(s) given: zofran. 19:26 Method Of Arrival: EMS: [facility] sr5 19:26 Acuity: PAYTON 2 sr5 Historical: - Allergies: 19:29 Latex, Natural Rubber; sr5 19:29 Morphine; sr5 19:29 chloradate; sr5 19:29 Vancomycin; sr5 - Home Meds: 22:52 corcidin [Active]; sertraline 100 mg oral tab [Active]; tylenol [Active]; Benadryl 25 sr5 mg Oral cap [Active]; ondansetron HCl 4 mg Oral tab [Active]; amlodipine 10 mg tab 1 tab once daily [Active]; zolpidem 5 mg Oral tab [Active]; - PMHx: 19:29 ADD/ADHD; Anemia; Asthma; DVT; Hypertension; Kidney stones; Osteomyelitis-L foot; sr5 osteomyolitis L foot; Sepsis; spina bifida; Upper extremity DVT- L arm; UTI; Screenin:00 Abuse screen: Denies threats or abuse. Nutritional screening: No deficits noted. sr5 Tuberculosis screening: No symptoms or risk factors identified. Fall Risk No fall in past 12 months (0 pts). Secondary diagnosis (15 points) IV access (20 points). Ambulatory Aid- None/Bed Rest/Nurse Assist (0 pts). Gait- Impaired (20 pts.). Mental Status- Oriented to own ability (0 pts). Total Toribio Fall Scale indicates High Risk Score (45 or more points). Fall prevention measures have been instituted. Side Rails Up X 2 As available patient and family educated on Fall Prevention Program and Strategies. Assessment: 20:47 Reassessment: Pt to CT via stretcher, meds infusing on pump. sr5 21:00 General: Appears uncomfortable, Behavior is calm, cooperative. Pain: Complains of pain sr5 in abdomen. Neuro: Level of Consciousness is awake, alert, obeys commands, Oriented to person, place, time, situation. Cardiovascular: Patient's skin is warm and dry. Rhythm is sinus tachycardia. Respiratory: Respiratory effort is even, unlabored, Respiratory pattern is regular, symmetrical. GI: Abdomen is round Pt is actively vomiting dry heaves Reports lower abdominal pain, upper abdominal pain, RLQ urostomy, LLQ colostomy, soft brown stool noted, and emptied. : Reports foul odor to urine in urostomy bag, during transport urostomy collection device became disconnected. Absorbent pads applied to keep skin dry. UA collected upon arrival. EENT: No signs and/or symptoms were reported regarding the EENT system. Derm: open wound to sacrum area, Stage 2, 2 areas where it appears skin sloughed off on sacrum as well. Pt cleaned and rolled onto RIGHT side. Musculoskeletal: Pt has history of CP, reports diminished sensation in lower body. No wounds noted to legs/feet. 22:43 Reassessment: Pt continues to be fully AA\\T\\Ox4, c/o headache, upper back, and abd pain. sr5 States "Dilaudid or demoral normally works better", provider notified, equal unlabored resp, RR24, 97% RA, skin warm/dry/nc, HR 132, sinus tachy continues, IVF infusing on pump, IV site asympt, BP 105/70. 23:03 Reassessment: Report called to SYED Ring. sr5 23:36 Reassessment: Report given to EMS. No further change in patient condition. sr5 Vital Signs: 19:29 BP 114 / 74; Pulse 165; Resp 18; Temp 102.4(TE); Pulse Ox 98% on R/A; Weight 63.5 kg sr5 (R); Height 5 ft. (152.40 cm) (R); Pain 10/10; 20:28 Pulse 151; Resp 20; Pulse Ox 97% on R/A; sr5 21:00 BP 115 / 85; Pulse 137; Resp 22; Temp 103.0(O); Pulse Ox 99% on R/A; Pain 10/10; sr5 22:06 BP 103 / 71 LA (auto/lg); Pulse 137 MON; Resp 26; Temp 101.4(O); Pulse Ox 98% on R/A; jp3 22:43 BP 105 / 70; Pulse 132; Resp 24; Temp 101.6; Pulse Ox 97% on R/A; Pain 8/10; sr5 23:36 BP 108 / 71; Pulse 128; Resp 22; Temp 101.1; Pulse Ox 98% on R/A; Pain 8/10; sr5 19:29 Body Mass Index 27.34 (63.50 kg, 152.40 cm) sr5 22:06 Sinus tachycardia jp3 22:43 headache, abd pain, upper back sr5 Vitals: 21:00 Cardiac Rhythm Assessment Sinus tach. sr5 22:43 Cardiac Rhythm Assessment Sinus tach. sr5 23:36 Cardiac Rhythm Assessment Sinus tach. sr5 ED Course: 19:26 Patient arrived in ED. sr5 19:28 Triage completed. sr5 19:29 Raquel Ferguson FNP-C is PHCP. snw 19:29 Burton Rodrigez MD is Attending Physician. snw 19:29 Arm band placed on right wrist. Patient placed in an exam room, on a stretcher, on sr5 bus driver/monitor, on pulse oximetry. 19:32 Missed attempt(s): 22 gauge in right antecubital area. Bleeding controlled, band aid ca1 applied, catheter tip intact. 19:40 Resecker, Kelvin, RN is Primary Nurse. sr5 19:49 Radiology exam delayed due to IV insertion attempt and/or patient not having jk appropriate IV at this time. 20:00 T\\T\\S collected, blood band applied to patient. Inserted saline lock: 20 gauge in right bb antecubital area, using aseptic technique. Blood collected. 20:09 Chest Single View XRAY In Process Unspecified. EDMS 21:00 Patient has correct armband on for positive identification. Allergy band placed. Fall sr5 risk band placed. Placed in gown. Bed in low position. Call light in reach. bus driver/monitor on. Pulse ox on. NIBP on. Warm blanket given. Pillow given. 21:08 CT Stone Protocol In Process Unspecified. EDMS 21:58 Throat Culture Sent. jp3 21:58 Urine --Ancillary (enter results) Sent. jp3 22:43 No provider procedures requiring assistance completed. Patient transferred, IV remains sr5 in place. 22:45 Repeat lab(s) drawn. by me, sent to lab. jp3 22:51 Diet: Patient given ice chips. and Erika moise. jp3 Administered Medications: 20:02 Drug: NS 0.9% 1000 ml Route: IV; Rate: 1 bolus; Site: right antecubital; bb 22:15 Follow up: IV Status: Completed infusion; IV Intake: 1000ml sr5 20:15 Drug: Zosyn 3.375 grams Route: IVPB; Infused Over: 60 mins; Site: right antecubital; bb 21:15 Follow up: Response: No adverse reaction; IV Status: Completed infusion; IV Intake: sr5 100ml 20:25 Drug: Phenergan 25 mg Route: IVP; Site: right antecubital; bb 21:41 Follow up: Response: Nausea is decreased sr5 20:26 Drug: Motrin 600 mg Route: PO; bb 21:42 Follow up: Response: Temperature is increased sr5 21:53 Drug: Tylenol 1000 mg Route: PO; sr5 22:22 Follow up: Response: Temperature is decreased sr5 21:53 Drug: fentaNYL (PF) 25 mcg Route: IVP; Site: right antecubital; sr5 22:22 Follow up: Response: Pain is unchanged, physician notified sr5 23:35 Follow up: Response: Pain is unchanged, physician notified sr5 22:34 Drug: NS 0.9% 1000 ml Route: IV; Rate: 1 bolus; Site: right antecubital; sr5 23:35 Drug: Dilaudid 0.5 mg Route: IVP; Site: right antecubital; sr5 23:36 Follow up: Response: Medication administered at discharge. sr5 Intake: 21:15 IV: 100ml; Total: 100ml. sr5 22:15 IV: 1000ml; Total: 1100ml. sr5 Outcome: 22:33 ER care complete, transfer ordered by . snemiliano 23:36 Transferred by ground EMS to [facility]. sr5 23:36 Condition: stable 23:36 Instructed on the need for transfer. 23:38 Patient left the ED. sr5 Signatures: Dispatcher [employer] EDMS Raquel Ferguson, GEOSPATIAL INFORMATION SCIENTIST-C GEOSPATIAL INFORMATION SCIENTIST-Csnw Carmen Kruse, RN RN bb Kelvin Evangelista RN RN sr5 Eric Edge jp3 Cortney Bardales RN RN Asa Pérez
--- NOTE | 2019-08-24 22:35 | EDPHYS ---
Physician Documentation [facility] Name: Leila Aquino Age: 38 yrs Sex: Female : 1980 Arrival Date: 08/24/2019 Time: 19:26 Bed 26 Private MD: ED Physician Burton Rodrigez HPI: 08/24 22:18 This 38 yrs old Black Female presents to ER via EMS with complaints of fever, abdominal snw pain, vomiting. 22:18 The patient reports fever, that was measured at 103 degrees Fahrenheit. Onset: The snw symptoms/episode began/occurred suddenly, today. Modifying factors: spina bifida, ileoconduit, colostomy . Associated signs and symptoms: Pertinent positives: abdominal pain, chills, decreased appetite, vomiting. Severity of symptoms: At their worst the symptoms were moderate severe in the emergency department the symptoms are unchanged. The patient has experienced similar episodes in the past, multiple times. It is unknown whether or not the patient has recently seen a physician. Historical: - Allergies: 19:29 Latex, Natural Rubber; sr5 19:29 Morphine; sr5 19:29 chloradate; sr5 19:29 Vancomycin; sr5 - Home Meds: 22:52 corcidin [Active]; sertraline 100 mg oral tab [Active]; tylenol [Active]; Benadryl 25 sr5 mg Oral cap [Active]; ondansetron HCl 4 mg Oral tab [Active]; amlodipine 10 mg tab 1 tab once daily [Active]; zolpidem 5 mg Oral tab [Active]; - PMHx: 19:29 ADD/ADHD; Anemia; Asthma; DVT; Hypertension; Kidney stones; Osteomyelitis-L foot; sr5 osteomyolitis L foot; Sepsis; spina bifida; Upper extremity DVT- L arm; UTI; ROS: 22:33 Eyes: Negative for injury, pain, redness, and discharge, ENT: Negative for injury, snw pain, and discharge, Neck: Negative for injury, pain, and swelling, Cardiovascular: Negative for chest pain, palpitations, and edema, Respiratory: Negative for shortness of breath, cough, wheezing, and pleuritic chest pain. 22:33 Back: Negative for injury and pain. 22:33 MS/Extremity: Negative for injury and deformity, Skin: Negative for injury, rash, and discoloration, Neuro: Negative for headache, weakness, numbness, tingling, and seizure. 22:33 Constitutional: Positive for body aches, chills, fever, poor PO intake. 22:33 Abdomen/GI: Positive for abdominal pain, nausea and vomiting. 22:33 : Positive for foul smelling urine. Exam: 22:22 Head/Face: Normocephalic, atraumatic. Eyes: Pupils equal round and reactive to light, snw extra-ocular motions intact. Lids and lashes normal. Conjunctiva and sclera are non-icteric and not injected. Cornea within normal limits. Periorbital areas with no swelling, redness, or edema. ENT: Nares patent. No nasal discharge, no septal abnormalities noted. Tympanic membranes are normal and external auditory canals are clear. Oropharynx with no redness, swelling, or masses, exudates, or evidence of obstruction, uvula midline. Mucous membranes moist. Neck: Trachea midline, no thyromegaly or masses palpated, and no cervical lymphadenopathy. Supple, full range of motion without nuchal rigidity, or vertebral point tenderness. No Meningismus. Chest/axilla: Normal chest wall appearance and motion. Nontender with no deformity. No lesions are appreciated. 22:22 Respiratory: Lungs have equal breath sounds bilaterally, clear to auscultation and percussion. No rales, rhonchi or wheezes noted. No increased work of breathing, no retractions or nasal flaring. 22:22 Back: No spinal tenderness. No costovertebral tenderness. Full range of motion. 22:22 Constitutional: The patient appears alert, awake, febrile, uncomfortable. 22:22 Cardiovascular: Rate: tachycardic, Rhythm: regular, Heart sounds: normal. 22:22 Abdomen/GI: Inspection: distension, scar(s), are noted in the right upper quadrant, right lower quadrant and left lower quadrant, Bowel sounds: normal, Palpation: mild abdominal tenderness, in the right upper quadrant and left upper quadrant, Rectal exam: the exam is chaperoned by the nurse, marissa. 22:22 Skin: Appearance: normal except for affected area, Temperature: hot, Moisture: dry, lesion(s), noted, and can be described as pressure ulcerations to bilateral inferior pubic ulcers, no discharge, fluctuance or odor. 22:22 Neuro: Motor: Hypotonic in pelvis. Vital Signs: 19:29 BP 114 / 74; Pulse 165; Resp 18; Temp 102.4(TE); Pulse Ox 98% on R/A; Weight 63.5 kg sr5 (R); Height 5 ft. (152.40 cm) (R); Pain 10/10; 20:28 Pulse 151; Resp 20; Pulse Ox 97% on R/A; sr5 21:00 BP 115 / 85; Pulse 137; Resp 22; Temp 103.0(O); Pulse Ox 99% on R/A; Pain 10/10; sr5 22:06 BP 103 / 71 LA (auto/lg); Pulse 137 MON; Resp 26; Temp 101.4(O); Pulse Ox 98% on R/A; jp3 22:43 BP 105 / 70; Pulse 132; Resp 24; Temp 101.6; Pulse Ox 97% on R/A; Pain 8/10; sr5 23:36 BP 108 / 71; Pulse 128; Resp 22; Temp 101.1; Pulse Ox 98% on R/A; Pain 8/10; sr5 19:29 Body Mass Index 27.34 (63.50 kg, 152.40 cm) sr5 22:06 Sinus tachycardia jp3 22:43 headache, abd pain, upper back sr5 MDM: 19:29 Patient medically screened. snw 22:30 Data reviewed: vital signs, nurses notes. Data interpreted: Pulse oximetry: on room air snw is 98 %. Interpretation: normal. Counseling: I had a detailed discussion with the patient and/or guardian regarding: the historical points, exam findings, and any diagnostic results supporting the discharge/admit diagnosis, lab results, radiology results, the need to transfer to another facility, for higher level of care, [facility] does not immediately have the required specialist. Response to treatment: the patient's symptoms have markedly improved after treatment. Physician consultation: Dr Roger was called at 22:31, was contacted at 22:31, regarding regarding transfer, to [facility]. Dr. Roger kindly accepts pt in transfer. 08/24 19:30 Order name: T\T\S; Complete Time: 22:09 snw 08/24 19:30 Order name: Basic Metabolic Panel; Complete Time: 20:35 snw 08/24 19:30 Order name: Blood Culture Adult (2) [facility] 08/24 19:30 Order name: CBC with Diff; Complete Time: 21:37 snw 08/24 19:30 Order name: Ckmb; Complete Time: 20:35 snw 08/24 19:30 Order name: CPK; Complete Time: 20:35 w 08/24 19:30 Order name: Lactate; Complete Time: 20:35 snw 08/24 19:30 Order name: LFT's; Complete Time: 20:35 snw 08/24 19:30 Order name: Lipase; Complete Time: 20:35 snw 08/24 19:30 Order name: Procalcitonin; Complete Time: 20:50 snw 08/24 19:30 Order name: Protime (+inr); Complete Time: 20:50 w 08/24 19:30 Order name: Ptt, Activated; Complete Time: 20:50 w 08/24 19:30 Order name: Troponin (emerg Dept Use Only); Complete Time: 20:35 w 08/24 19:30 Order name: Urine Microscopic Only; Complete Time: 21:01 w 08/24 19:30 Order name: Chest Single View XRAY [facility] 08/24 19:31 Order name: Flu; Complete Time: 20:54 w 08/24 19:31 Order name: Strep; Complete Time: 20:54 [facility] 08/24 20:07 Order name: CT Stone Protocol [facility] 08/24 20:24 Order name: Glucose, Ancillary Testing; Complete Time: 20:35 [facility] 08/24 20:29 Order name: Urine Dipstick--Ancillary (enter results); Complete Time: 20:35 [facility] 08/24 20:29 Order name: Urine Culture [facility] 08/24 20:32 Order name: Urine --Ancillary (enter results) [facility] 08/24 20:34 Order name: Urine --Ancillary; Complete Time: 20:35 [facility] 08/24 20:56 Order name: Throat Culture [facility] 08/24 21:17 Order name: Manual Differential; Complete Time: 21:37 [facility]CT 08/24 23:23 Order name: Lactate Sepsis 2 HR Follow-up; Complete Time: 23:25 [facility] 08/24 19:30 Order name: Accucheck; Complete Time: 20:21 snw 08/24 19:30 Order name: Cardiac monitoring; Complete Time: 19:40 snw 08/24 19:30 Order name: EKG - Nurse/Tech; Complete Time: 23:19 snw 08/24 19:30 Order name: IV Saline Lock - Large Bore; Complete Time: 20:21 snw 08/24 19:30 Order name: Labs collected and sent; Complete Time: 20:21 snw 08/24 19:30 Order name: O2 Per Protocol; Complete Time: 20:28 snw 08/24 19:30 Order name: O2 Sat Monitoring; Complete Time: 20:21 snw 08/24 19:30 Order name: Urine Dipstick-Ancillary (obtain specimen); Complete Time: 21:58 snw Administered Medications: 20:02 Drug: NS 0.9% 1000 ml Route: IV; Rate: 1 bolus; Site: right antecubital; bb 22:15 Follow up: IV Status: Completed infusion; IV Intake: 1000ml sr5 20:15 Drug: Zosyn 3.375 grams Route: IVPB; Infused Over: 60 mins; Site: right antecubital; bb 21:15 Follow up: Response: No adverse reaction; IV Status: Completed infusion; IV Intake: sr5 100ml 20:25 Drug: Phenergan 25 mg Route: IVP; Site: right antecubital; bb 21:41 Follow up: Response: Nausea is decreased sr5 20:26 Drug: Motrin 600 mg Route: PO; bb 21:42 Follow up: Response: Temperature is increased sr5 21:53 Drug: Tylenol 1000 mg Route: PO; sr5 22:22 Follow up: Response: Temperature is decreased sr5 21:53 Drug: fentaNYL (PF) 25 mcg Route: IVP; Site: right antecubital; sr5 22:22 Follow up: Response: Pain is unchanged, physician notified sr5 23:35 Follow up: Response: Pain is unchanged, physician notified sr5 22:34 Drug: NS 0.9% 1000 ml Route: IV; Rate: 1 bolus; Site: right antecubital; sr5 23:35 Drug: Dilaudid 0.5 mg Route: IVP; Site: right antecubital; sr5 23:36 Follow up: Response: Medication administered at discharge. sr5 Disposition: 08/25 05:48 Co-signature as Attending Physician, Burton Rodrigez MD I agree with the assessment and efrain plan of care. Disposition: 08/24/19 22:33 Transfer ordered to [facility]. Diagnosis are Sepsis, unspecified organism, Urinary tract infection, site not specified, Hydronephrosis with renal and ureteral calculous obstruction, Spina bifida, unspecified, Pressure ulcer of buttock. - Reason for transfer: Higher level of care. - Accepting physician is Dr. Roger. - Condition is Stable. - Problem is an acute exacerbation. - Symptoms have worsened. Signatures: Dispatcher [employer] EDCT Burton Rodrigez MD MD cha Therrien, Shelly, EDUCATION PROFESSIONAL-C EDUCATION PROFESSIONAL-Csnw Carmen Kruse, RN RN Kelvin Cortés RN RN sr5 Corrections: (The following items were deleted from the chart) 08/24 23:38 22:33 08/24/2019 22:33 Transfer ordered to [facility]. sr5 Diagnosis is Sepsis, unspecified organism; Urinary tract infection, site not specified; Hydronephrosis with renal and ureteral calculous obstruction; Spina bifida, unspecified; Pressure ulcer of buttock. Reason for transfer: Higher level of care. Accepting physician is Dr. Roger. Condition is Stable. Problem is an acute exacerbation. Symptoms have worsened. snw
[2019-08-24] MEDS ORDERED: HYDROMORPHONE HCL 1 MG/ML INJ ONE (23:24)
[2019-08-25 00:21] VITALS: BP 108/71; TEMP 101.1; O2SAT 98
--- NOTE | 2019-08-25 08:01 | RAD REPORT ---
EXAM DESCRIPTION: RAD - Chest Single View - 08/24/2019 8:09 pm CLINICAL HISTORY: Abdominal pain, vomiting COMPARISON: November 2018 portable chest [address] chest TECHNIQUE: AP portable chest image was obtained 2005 hours . FINDINGS: Right lung field and upper left lung field interstitial pattern slightly prominent. This i s probably due to a more shallow inspiration rather than interstitial edema or infiltrate. No dense c onsolidation. Vena cava filter again noted. Heart size is prominent, partially obscured by chronic le ft pleural effusion. Patient has a ventriculo pleural shunt. Upper left lung field is clear. No pneum othorax. No acute bony abnormality seen. No acute aortic findings suspected. IMPRESSION: Shallow inspiration chest film with increased interstitial pattern. This is probably sha llow inspiration artifact but can be correlated with any interstitial edema or interstitial infiltrat e clinical findings. 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
--- NOTE | 2019-08-25 10:13 | RAD REPORT ---
EXAM DESCRIPTION: CT - Stone Protocol - 08/25/2019 3:41 am CLINICAL HISTORY: 38 years Female sepsis TECHNIQUE: Contiguous axial images obtained through the abdomen and pelvis without intravenous contr ast administration. Coronal and sagittal reformatted images provided. This CT exam was performed according to our departmental dose-optimization program, which includes on e or more of the following dose reduction techniques: automated exposure control, adjustment of the m A and/or kV according to patient size, and/or use of iterative reconstruction technique. COMPARISON: 10/20/2018 FINDINGS: There is severe left hydronephrosis due to a 9 mm calculus at the left ureteropelvic junct ion. Mild perinephric stranding on the left. The right kidney demonstrates scarring without hydronephrosis. There are nonobstructing calyceal and pelvic calculi in the right kidney, the largest in the right renal pelvis measuring 1.2 cm. Patient again seen to be status post prior bladder resection and right mid abdominal ileal conduit. Again seen is a moderate to large left pleural effusion with a pleural catheter in place, incompletel y imaged. Patchy atelectasis at the left lung base. The liver, biliary tree, gallbladder, pancreas, spleen, and adrenal glands demonstrate no acute findi ngs. Again seen is pronounced laxity of the pelvic floor with what appears to be vaginal, uterine, and rec lance prolapse. There is an intrauterine device which has been placed since the prior exam. The uterus again appears globular and enlarged with suspected fibroids. The intrauterine device may be within an abnormally low position. No adnexal mass. Stable left lower quadrant colostomy and mucous fistula. Fat-containing parastomal hernia. No visuali zed bowel inflammation, obstruction, pneumatosis, free intraperitoneal air, abscess, or ascites. Again seen is congenital lumbosacral spina bifida. There is diffuse muscle atrophy, pronounced dextro convex curvature of the visualized spine, gracile bones, and prior resection of the right femoral hea d. There is no acute fracture. Bilateral inferior pubic decubitus ulcers, right greater than left. No soft tissue gas. IMPRESSION: Severe left hydronephrosis due to a 9 mm calculus at the left ureteropelvic junction. Right-sided renal calculi measure up to 1.2 cm without obstruction. Findings again consistent with a chronic neuromuscular disorder. Moderate to large left pleural effusion contains an incompletely imaged pleural catheter. Again seen is pronounced laxity of the pelvic floor with what appears to be vaginal, uterine, and rec lance prolapse. An intrauterine device has been placed. It is unclear if this is an abnormally low posi tion within the enlarged uterus. Suspected uterine fibroids. Correlate with physical exam. Bilateral inferior pubic decubitus ulcers, right greater than left. No soft tissue gas. Electronically signed by: Kyleigh Arellano MD 08/24/2019 9:48 PM DATAPOWER CONSULTANT Due to temporary technical issues with the PACS/Fluency reporting system, reports are being signed by the in house radiologist as a courtesy to ensure prompt reporting. The interpreting radiologist is f ully responsible for the content of the report.
--- NOTE | 2019-08-25 13:48 | EKG ---
Test Date: 2019-08-24 Test Time: 20:37:47 Food Safety Specialist: JUAN CARLOS MEASUREMENT RESULTS: Intervals: Rate: 145 AK: 104 QRSD: 78 QT: 344 QTc: 534 [place]: P: AK: 104 QRS: 38 T: 44 INTERPRETIVE STATEMENTS: Sinus tachycardia with short AK Otherwise normal ECG Compared to ECG 04/11/2018 16:34:02 Short AK interval now present Electronically Signed On 08-25-19 13:46:27 PUBLIC POLICY PROFESSOR by Trent Sousa
== END 2019-08-24 23:38 | disposition short-term general hospital (02) ==
LOC: ER 19:21
DX: A41.9 Sepsis, unspecified organism (principal); N13.2 Hydronephrosis with renal and ureteral calculous obstruction; N39.0 Urinary tract infection, site not specified; L89.309 Pressure ulcer of unspecified buttock, unspecified stage; Q05.9 Spina bifida, unspecified; I10 Essential (primary) hypertension; Z86.718 Personal history of other venous thrombosis and embolism; Z88.3 Allergy status to other anti-infective agents; Z88.5 Allergy status to narcotic agent; Z88.8 Allergy status to other drugs, medicaments and biological substances; Z91.040 Latex allergy status
CPT/HCPCS: 96365; 96361; 93005; 87040 ×2; 87070; 87088; 85025; 87086; 80048; 36415; 86900; 86850; 82550; 87205 ×2; 81025; 85610; 86901; 82947; 80076; 87081; 83605 ×2; 85730; 87077 ×3; 87186 ×3; 84484; 82553; 83690; 84145; 87804 ×2; 76377; 74176; 71045; 96375; 99285; J2550; J3010; J2543; J1170; J7030 ×2; 81003; 81015

== ENCOUNTER 2019-10-20 14:55 | Emergency (ER) | payer OTHER ==
--- OUTSIDE RECORDS SUMMARY | 2019-10-20 15:00 | XMS REPORT | Summary of Care ---
:1980 Author Name Jeimy AMMUNITION OFFICER, Ju Address Unavailable Unavailable , Care Team Providers Name Role Phone CHRISTOPHE James, ROBERTO Unavailable Unavailable YELITZA James, VERONA Unavailable Unavailable Jeimy AMMUNITION OFFICER, Ju Unavailable Unavailable DEVENDRA MASON MS, DEONDRE Unavailable Unavailable Anais MASON, Karon Unavailable Unavailable ANKITA LOCKETT MD, ARGENTINA Unavailable Unavailable Juana MASON, Reyna Unavailable Unavailable JANIE MASON MS, IRVING TORRES Unavailable Unavailable LARRY MASON, ANNIE Unavailable Unavailable Trinidad MASON, James Unavailable Unavailable YELITZA MASON, VERONA Ulloa Unavailable Unavailable Unavailable Unavailable Unavailable Functional Status Name Dates Details Functional status health issues are not documented Status: Name Dates Details Cognitive status health issues are not documented Status: Problems Name Dates Details Irregular bleeding (626.4, N92.6) Status: Active Obstruction of nephrostomy tube (997.5, T83.092A) Status: Active Encounter for postoperative care (V58.49, Z48.89) Status: Active Pelvic prolapse (618.9, N81.9) Status: Active SB (spina bifida) (741.90, Q05.9) Status: Active Hospital discharge follow-up (V67.59, Z09) Status: Active Nephrolithiasis (592.0, N20.0) Status: Active Obstruction of right ureter (593.4, N13.5) Status: Active Sepsis (038.9, A41.9) Status: Active Pleural effusion (511.9, J90) Status: Active Insomnia (780.52, G47.00) Status: Active Essential hypertension, benign (401.1, I10) Status: Active Complicated UTI (urinary tract infection) (599.0, N39.0) Status: Active Anemia (285.9, D64.9) Status: Active Pressure injury of deep tissue of sacral region (707.03, L89.156) Status: Active Dry skin dermatitis (692.89, L85.3) Status: Active Sacral decubitus ulcer (707.03, L89.159) Status: Active Medications Name Dates Details amLODIPine Besylate 5 MG Oral Tablet TAKE 1 TABLET BY MOUTH DAILY Quantity: 90 Refills: 0 VERONA TORRE M.D. Start : 23-Dec-2018 Active Zolpidem Tartrate 5 MG Oral Tablet TAKE 1 TO 2 TABLETS AT BEDTIME NEEDED. Quantity: 60 Refills: 0 LADARIUS TORRE M.D.A Start : 23-Dec-2018 Active Ondansetron HCl - 4 MG Oral Tablet TAKE 1 TABLET Every twelve hours Quantity: 30 Refills: 0 CHRISTOPHE James, ROBERTO Start : 04-Jan-2019 Active Ferrous Sulfate 325 (65 Fe) MG Oral Tablet TAKE 1 TABLET TWICE DAILY WITH MEALS. Quantity: 30 Refills: 3 CHRISTOPHE James, ROBERTO Start : 25-Jan-2019 Active Mirena 20 MCG/24HR Intrauterine Intrauterine Device USE DIRECTED. Refills: 0 VERONA TORRE M.D. Start : 12-Sep-2019 Active Ammonium Lactate 12 % External Cream APPLY AND RUB IN A THIN FILM TO AFFECTED AREAS TWICE DAILY.(AM AND PM). Quantity: 1 Refills: 3 YELITZA James, VERONA Start : 12-Sep-2019 Active 385 GM Tube Allergies and Adverse Reactions Name [...] Z87.440) Status: Resolved Procedures Procedure Dates Details CT Abdomen/Pelvis w/wo contrast 50140 Date: 10-Oct-2019 History of Colostomy Completed History of Dilation And Curettage Of Cervical Stump Completed History of Hysteroscopy Completed History of Ureteral stent placement Completed History of Ventriculoperitoneal shunt creation Completed Immunization Name Dates Details Tdap (Adacel) on: Aug-2016 Fluzone Quadrivalent 0.5 ML Intramuscular Suspension on: Aug-2016 Social History Name Dates Details - Status: Name Dates Details Never smoker Never smoker Vital Signs Date Test Result Details [id number] Physical Findings 10 Status: Comments: PHQ-9 Adult Depression Screening [id number] Physical Findings 0 Status: Comments: Alcohol Screen - How many times in the past yr have you had 5 (for M) or 4 (for F) or 4 (for all > 65yrs) or more drinks in a day? [id number] BP Systolic 118 mm[Hg] Status: Comments: Location: RUE; Position: Sitting BP Diastolic 86 mm[Hg] Status: Comments: Location: [facility]; Position: Sitting Height 60 in Status: Temperature 98.6 f Status: Comments: Method: Oral Heart Rate 116 /min Status: Comments: Location: R Brachial Artery; Quality: Normal Respiration Rate 15 /min Status: Comments: Quality: Normal Results Date Description Value Details Results not documented Plan of Care Name Dates Details Planned Observations Planned Goals not documented Planned Encounters Appointment; VERONA TORRE M.D. On: 13-Oct-2019 9:30 Appointment; ANNIE JUAREZ M.D. On: 27-Oct-2019 10:15 Interventions Provided Labs/Procedures/ImagingCT Abdomen/Pelvis w/wo contrast 24689; To Be Done: 10 Oct 2019 Instructions Name Dates Details Instructions not documented [...] 9:40 Encounter Diagnosis: Problem not documented Appointment; [facility] On: 23-Dec-2018 11:00 Encounter Diagnosis: Problem not [...] 27-Jan-2019 9:00 Encounter Diagnosis: Problem not documented Appointment; ABDIRAHMAN VALLEJO M.D. On: 21-Mar-2019 11:00 Encounter Diagnosis: Problem not documented Appointment; VERONA TORRE M.D. On: 12-Sep-2019 13:15 Encounter Diagnosis: Problem not documented
--- OUTSIDE RECORDS SUMMARY | 2019-10-20 15:00 | XMS REPORT | Summary of Care ---
:1980 Author Name YELITZA James, VERONA Address Unavailable Unavailable , Care Team Providers Name Role Phone Catie Hutson M.A. Unavailable Unavailable CHRISTOPHE James, ROBERTO Unavailable Unavailable YELITZA James, VERONA Unavailable Unavailable DEVENDRA MASON CO, DEONDRE Unavailable Unavailable Anais MASON, Karon Unavailable Unavailable ANKITA LOCKETT MD, ARG[place] Unavailable Unavailable Juana MASON, Reyna Unavailable Unavailable JANIE MASON CO, IRVING TORRES Unavailable Unavailable LARRY MASON, ANNIE [...] Every twelve hours Quantity: 30 Refills: 0 RHODA SAEED M.D.IKELIZABETH Start : 04-Jan-2019 Active Ferrous Sulfate 325 (65 Fe) MG Oral Tablet TAKE 1 TABLET TWICE DAILY WITH MEALS. Quantity: 30 Refills: 3 ROBERTO SAEED M.D. Start : 25-Jan-2019 Active Mirena 20 MCG/24HR [...] Status: Resolved Procedures Procedure Dates Details CT Abd Renal Protocol w/wo IV contrast [id number] Date: 11-Sep-2019 CT Renal Stone [id number] Date: 11-Sep-2019 History of Colostomy Completed History of Dilation [...] smoker Vital Signs Date Test Result Details [id number] Physical Findings 10 Status: Comments: PHQ-9 Adult Depression Screening [id number] Physical Findings 0 Status: Comments: Alcohol Screen - How many times in the past yr have you had 5 (for M) or 4 (for F) or 4 (for all > 65yrs) or more drinks in a day? [id number] BP Systolic 118 mm[Hg] Status: Comments: Location: E; Position: Sitting BP Diastolic 86 mm[Hg] Status: Comments: Location: E; Position: Sitting [...] JUAREZ M.D. On: 27-Oct-2019 10:15 Interventions Provided SuppliesCUSHION; To Be Done: 13 Sep 2019 Instructions Name Dates Details Instructions not documented Encounters Appointment; ANNIE JUAREZ M.D. On: 15-Apr-2018 8:45 Encounter Diagnosis: Problem not documented Appointment; ANNIE JUAREZ M.D. On: 11-May-2018 10:15 Encounter Diagnosis: Problem not documented Appointment; BEKAH OLW P.A. On: 30-May-2018 10:30 Encounter Diagnosis: Problem [...] 9:40 Encounter Diagnosis: Problem not documented Appointment; [facility] On: 23-Dec-2018 11:00 Encounter Diagnosis: [...]
--- OUTSIDE RECORDS SUMMARY | 2019-10-20 15:00 | XMS REPORT | Summary of Care ---
:1980 Author Name Maximo Vieira R.N. Address Unavailable Unavailable , Care Team Providers Name Role Phone CHRISTOPHE James, ROBERTO Unavailable Unavailable YELITZA James, VERONA Unavailable Unavailable Dariel Hughes, Maximo Unavailable Unavailable DEVENDRA MASON [place], DEONDRE Unavailable Unavailable Anais MASON, Karon Unavailable Unavailable ANKITA LOCKETT MD, ARGENTINA Unavailable Unavailable Juana MASON, Reyna Unavailable Unavailable JANIE MASON [place], IRVING TORRES Unavailable Unavailable LARRY MASON, ANNIE [...] Procedure Dates Details CT Abdomen/Pelvis w/wo contrast 73487 Date: 10-Oct-2019 History of Hysteroscopy Completed History of Dilation And Curettage Of Cervical Stump Completed History of Colostomy Completed History of Ureteral stent placement Completed History of Ventriculoperitoneal shunt creation Completed Immunization Name Dates Details Tdap (Adacel) on: Aug-2016 Fluzone Quadrivalent 0.5 ML Intramuscular Suspension on: Aug-2016 Social History Name Dates Details - Status: Name Dates Details Never smoker Never smoker Vital Signs Date Test Result Details :33 Physical Findings 10 Status: Comments: PHQ-9 Adult Depression Screening :02 Physical Findings 0 Status: Comments: Alcohol Screen - How many times in the past yr have you had 5 (for M) or 4 (for F) or 4 (for all > 65yrs) or more drinks in a day? :01 BP Systolic 118 mm[Hg] Status: Comments: Location: E; Position: Sitting BP Diastolic 86 mm[Hg] Status: Comments: Location: [facility]; Position: Sitting Height 60 in [...] JUAREZ M.D. On: 27-Oct-2019 10:15 Interventions Provided Discussion/SummaryGuideline Used: Clinic: [facility] from [employer] is requesting callback to confirm continued need and receipt of request for urology supplies. It was faxed in the middle of August and will be faxed again today for clinic referencePh: [phone] ext [phone] signs or symptoms reported at this time. Chart review done. Intended Caller Action: Other: Speak with clinical staff. Additional Information: Task sent to [facility] Nurse Team Instructions Name Dates Details Instructions not documented Encounters Appointment; ANNIE JUARZE M.D. On: 15-Apr-2018 8:45 Encounter Diagnosis: Problem [...] 9:40 Encounter Diagnosis: Problem not documented Appointment; [facility], [facility] On: 23-Dec-2018 11:00 Encounter Diagnosis: Problem not documented Appointment; REYNA AKHTAR M.D. On: 04-Jan-2019 8:15 Encounter Diagnosis: Problem not documented Appointment; ANNIE JUAREZ M.D. On: 12-Jan-2019 7:30 Encounter Diagnosis: Problem not documented Appointment; DEONDRE RASMAY M.D. On: 12-Jan-2019 11:30 Encounter Diagnosis: Problem [...]
--- OUTSIDE RECORDS SUMMARY | 2019-10-20 15:00 | XMS REPORT | Summary of Care ---
:1980 Author Name Renetta Marques M.A. Address Unavailable Unavailable , Care Team Providers Name Role Phone CHRISTOPHE James, ROBERTO Unavailable Unavailable YELITZA James, VERONA Unavailable Unavailable DEVENDRA MASON [place], DEONDRE Unavailable Unavailable Anais MASON, Karon Unavailable Unavailable ANKITA LOCKETT MD, [place] Unavailable Unavailable Juana MASON, Reyna Unavailable Unavailable JANIE MASON [place], IRV[place] TORRES Unavailable Unavailable LARRY MASON, ANNIE [...] BY MOUTH DAILY Quantity: 90 Refills: 0 YELITZA James, VERONA Start : 23-Dec-2018 Active Zolpidem Tartrate 5 MG Oral Tablet TAKE 1 TO 2 TABLETS AT BEDTIME NEEDED. Quantity: 60 Refills: 0 YELITZA James, VERONA Start : 23-Dec-2018 Active Ondansetron HCl - 4 MG Oral Tablet TAKE 1 TABLET Every twelve hours Quantity: 30 Refills: 0 CHRISTOPHE James, BlancaULEIKHA Start : 04-Jan-2019 Active Ferrous Sulfate 325 (65 Fe) MG Oral Tablet TAKE 1 TABLET TWICE DAILY WITH MEALS. Quantity: 30 Refills: 3 CHRISTOPHE James, BlancaULEIKHA Start : 25-Jan-2019 Active Mirena 20 MCG/24HR Intrauterine Intrauterine Device USE DIRECTED. Refills: 0 YELITZA James, VERONA Start : 12-Sep-2019 Active Ammonium Lactate 12 [...] Procedure Dates Details CT Abdomen/Pelvis w/wo contrast 52330 Date: 10-Oct-2019 History of Colostomy Completed History [...] smoker Vital Signs Date Test Result Details [id number] BP Systolic 132 mm[Hg] Status: Comments: Location: LUE; Position: Sitting BP Diastolic 86 mm[Hg] Status: Comments: Location: LUE; Position: Sitting Weight 140 lb Status: Body Mass Index Calculated 27.34 kg/m2 Status: Body Surface Area Calculated 1.6 m2 Status: Temperature 98 f Status: Comments: Method: Oral Heart Rate 93 /min Status: Comments: Location: L Brachial Artery; Quality: Normal Respiration Rate 14 /min Status: Comments: Quality: Normal Results Date Description Value Details Results not documented Plan of Care Name Dates Details Planned Observations Planned Goals not documented Planned Encounters Appointment; ANNIE JUAREZ M.D. On: 27-Oct-2019 10:15 Instructions Name Dates Details Instructions not documented [...] 9:40 Encounter Diagnosis: Problem not documented Appointment; [facility], [facility] On: 23-Dec-2018 11:00 Encounter Diagnosis: Problem not [...] 12-Sep-2019 13:15 Encounter Diagnosis: Problem not documented Appointment; VERONA TORRE M.D. On: 13-Oct-2019 9:30 Encounter Diagnosis: Problem not documented
--- OUTSIDE RECORDS SUMMARY | 2019-10-20 15:00 | XMS REPORT | Summary of Care ---
:1980 Author Name YELITZA James, VERONA Address Unavailable Unavailable , Care Team Providers Name Role Phone CHRISTOPHE James, ROBERTO Unavailable Unavailable YELITZA James, VERONA Unavailable Unavailable DEVENRDA MASON [place], DEONDRE Unavailable Unavailable Anias MASON, Karon Unavailable Unavailable ANKITA LOCKETT MD, [place] Unavailable Unavailable Juana MASON, Reyna Unavailable Unavailable JANIE MASON [place], IRVING TORRES Unavailable Unavailable LARRY MASON, ANNIE [...] for postoperative care (V58.49, Z48.89) Status: Active Hospital discharge follow-up (V67.59, Z09) [...] of sacral region (707.03, L89.156) Status: Active Sacral decubitus ulcer (707.03, L89.159) Status: Active Dry skin dermatitis (692.89, L85.3) Status: Active Pelvic prolapse (618.9, N81.9) Status: Active SB (spina bifida) (741.90, Q05.9) Status: Active Paraplegia (344.1, G82.20) Status: Active Medications Name Dates Details amLODIPine [...] Procedure Dates Details CT Abdomen/Pelvis w/wo contrast 31466 Date: 10-Oct-2019 History of Colostomy Completed History of Dilation And Curettage Of Cervical Stump Completed History of Hysteroscopy Completed History of Ureteral stent placement Completed History of Ventriculoperitoneal shunt creation Completed Immunization Name Dates Details Fluzone Quadrivalent 0.5 ML Intramuscular Suspension on: Aug-2016 Tdap (Adacel) on: Aug-2016 Social History Name Dates Details - Status: Name Dates Details Never smoker Never smoker Vital Signs Date Test Result Details [id number] BP Systolic 132 mm[Hg] Status: Comments: Location: [...] Planned Goals not documented Planned Encounters Appointment; DEONDRE RAMSAY M.D. On: 20-Oct-2019 10:15 Appointment; ANNIE JUAREZ M.D. On: 27-Oct-2019 10:15 [...] 9:40 Encounter Diagnosis: Problem not documented Appointment; [facility] On: 23-Dec-2018 11:00 Encounter Diagnosis: [...]
--- OUTSIDE RECORDS SUMMARY | 2019-10-20 15:00 | XMS REPORT ---
:1980 [facility] [address] [place] [address] Dr. Ha[address]. [address] [place] [address] Care Team Providers Name Role Phone DILMA LOMBARDI WAQAR Unavailable Unavailable DANGELO VERMA MABEL Unavailable Unavailable Problems This patient has no known problems. Allergies, Adverse Reactions, Alerts This patient has no known allergies or adverse reactions. Medications This patient has no known medications. Encounters Start End Encounter Admission Attending Care Care Encounter Date/Time Date/Time Type Type Clinicians Facility Department ID 2018-12-13 Inpatient U [facility] [id number] 17:12:36 2019-08-25 2019-08-25 Inpatient E [facility] [id number] 06:34:00 00:52:00 2019-01-30 2019-01-30 Emergency E [facility] [id number] 18:32:00 18:32:00 2019-01-22 2019-01-22 Outpatient E [facility] [id number] 05:46:00 05:46:00 2019-01-12 2019-01-12 Outpatient [facility] [id number] 17:47:00 17:47:00 2019-01-06 2019-01-06 Outpatient [facility] [id number] 10:09:00 10:09:00 2018-12-14 2018-12-13 Inpatient E [facility] [id number] 03:28:00 19:10:00 Results Test Description Test Time Test Comments Text Results Atomic Results Result Comments SURGICALLY OBTAINED CULTURE + GRAM STAIN 2018-07-03 12:12:00 Test Item Value Reference Range Comments CULTURE (BEAKER) (test ENTEROCOCCUS SPECIES 2+ Enterococcus nmky=4266) species Ampicillin (test code=26) Linezolid (test code=40) Tetracycline (test code=2) Vancomycin (test code=13) CULTURE (BEAKER) (test 1+ Katie albicans ceoo=0478) CULTURE (BEAKER) (test KLEBSIELLA 1+ Klebsiella mzxx=9707) PNEUMONIAE SSP pneumoniae ssp PNEUMONIAE pneumoniae Amikacin [...] CULTURE (BEAKER) (test VANCOMYCIN RESISTANT 1+ Vancomycin fbcy=1936) ENTEROCOCCUS SPECIES resistant Enterococcus species Ampicillin (test code=26) Linezolid (test code=40) Vancomycin (test code=13) Daptomycin (test Susceptible 0-4 , No code=59) Interpretations Established <0 or >4 ANAEROBIC [id number] 05:31:00 Test Item Value Reference Range Comments CULTURE (BEAKER) (test cafy=0511) No anaerobes isolated URINE [id number] 11:06:00 Test Item Value Reference Range Comments CULTURE (BEAKER) (test 20-29,000 col/mL pyvd=6618) Katie parapsilosis CULTURE (BEAKER) (test PSEUDOMONAS 20-29,000 col/mL qetl=4805) AERUGINOSA Pseudomonas aeruginosa Amikacin (test code=1) Susceptible [...] , code=25) Resistant <0 or >4 URINE [id number] 11:03:00 Test Item Value Reference Range Comments CULTURE (BEAKER) (test ENTEROCOCCUS SPECIES >100,000 col/mL hhfl=0040) Enterococcus species Ampicillin (test code=26) Linezolid (test code=40) Nitrofurantoin (test code=23) Tetracycline (test code=2) Vancomycin (test code=13) CULTURE (BEAKER) (test ESCHERICHIA COLI 50-59,000 col/mL dinn=6101) Escherichia coli Amikacin (test code=1) Ampicillin + Sulbactam (test code=6) Aztreonam (test code=32) Cefepime (test code=51) Cefoxitin (test code=68) Ceftazidime (test code=27) Ceftriaxone (test code=52) Ertapenem (test code=38) Gentamicin (test code=18) Levofloxacin (test code=22) Meropenem (test code=34) Nitrofurantoin (test code=23) Piperacillin + Tazobactam (test code=29) Tetracycline (test code=2) Tobramycin (test code=25) Trimethoprim + Sulfamethoxazole (test code=47) CULTURE (BEAKER) (test ENTEROBACTER CLOACAE 50-59,000 col/mL hwhn=4743) COMPLEX Enterobacter cloacae complex Amikacin (test code=1) Aztreonam (test code=32) Cefepime (test code=51) Cefoxitin (test code=68) Ceftazidime (test code=27) Ceftriaxone (test code=52) Ertapenem (test code=38) Gentamicin (test code=18) Levofloxacin (test code=22) Meropenem (test code=34) Nitrofurantoin (test code=23) Piperacillin + Tazobactam (test code=29) Tetracycline (test code=2) Tobramycin (test code=25) Trimethoprim + Sulfamethoxazole (test code=47) Dr. lopez request for avycaz and zerbaxaCT, [id number] 07:41:00FINAL REPORT INDICATION:37-year-old female status post recent [...] Verified Date/Time : 06/29/2018 07:41:57 Reading Location: [facility] Diagnostic Imaging Reading Room - [place] [address] Electronically signed by: FREDERICK BOYD M.D. on 2017 07:41 AMCBC W/PLT COUNT & AUTO [id number] 07:07:00 Test Item Value Reference Range Comments WHITE BLOOD CELL COUNT 9.2 K/ L 3.5-10.5 (BEAKER) (test kwud=498) RED BLOOD CELL COUNT (BEAKER) 4.41 M/ L 3.93-5.22 (test qlhl=283) HEMOGLOBIN (BEAKER) (test 10.1 GM/DL 11.2-15.7 sozy=803) HEMATOCRIT (BEAKER) (test 33.7 % 34.1-44.9 eovy=729) MEAN CORPUSCULAR VOLUME 76.4 fL 79.4-94.8 (BEAKER) (test kpze=036) MEAN CORPUSCULAR HEMOGLOBIN 22.9 pg 25.6-32.2 (BEAKER) (test awag=639) MEAN CORPUSCULAR HEMOGLOBIN 30.0 GM/DL 32.2-35.5 CONC (BEAKER) (test imvn=280) RED CELL DISTRIBUTION WIDTH 21.2 % 11.7-14.4 (BEAKER) (test cqbb=703) PLATELET COUNT (BEAKER) (test 51 K/CU MM 150-450 lifl=632) MEAN PLATELET VOLUME (BEAKER) fL 9.4-12.3 Unable to report due to (test elzx=541) abnormal Platelet population distribution. NUCLEATED RED BLOOD CELLS 0 /100 WBC 0-0 (BEAKER) (test fkmp=505) NEUTROPHILS RELATIVE PERCENT 71 % (BEAKER) (test atcz=334) LYMPHOCYTES RELATIVE PERCENT 17 % (BEAKER) (test ejps=744) MONOCYTES RELATIVE PERCENT 10 % (BEAKER) (test mvuo=514) EOSINOPHILS RELATIVE PERCENT 1 % (BEAKER) (test mefz=304) BASOPHILS RELATIVE PERCENT 0 % (BEAKER) (test cvwu=399) NEUTROPHILS ABSOLUTE COUNT 6.59 K/ L 1.56-6.13 (BEAKER) (test rnpo=397) LYMPHOCYTES ABSOLUTE COUNT 1.59 K/ L 1.18-3.74 (BEAKER) (test oekg=515) MONOCYTES ABSOLUTE COUNT 0.91 K/ L 0.24-0.36 (BEAKER) (test viwa=412) EOSINOPHILS ABSOLUTE COUNT 0.07 K/ L 0.04-0.36 (BEAKER) (test zoax=619) BASOPHILS ABSOLUTE COUNT 0.03 K/ L 0.01-0.08 (BEAKER) (test citb=402) IMMATURE GRANULOCYTES-RELATIVE 0 % 0-1 PERCENT (BEAKER) (test fkqm=5826) BASIC METABOLIC [id number] 06:01:00 Test Item Value Reference Range Comments SODIUM (BEAKER) (test 137 meq/L 136-145 yqtc=378) POTASSIUM (BEAKER) (test 3.7 meq/L 3.5-5.1 bynt=264) CHLORIDE (BEAKER) (test 112 meq/L 98-107 folg=213) CO2 (BEAKER) (test 17 meq/L 22-29 yybm=512) BLOOD UREA NITROGEN 7 mg/dL 7-21 (BEAKER) (test ywgn=482) CREATININE (BEAKER) (test 0.64 mg/dL 0.57-1.25 hxfo=917) GLUCOSE RANDOM (BEAKER) 82 mg/dL 70-105 (test yzas=569) CALCIUM (BEAKER) (test 8.9 mg/dL 8.4-10.2 qzqn=392) EGFR (BEAKER) (test 126 mL/min/1.73 sq m ESTIMATED GFR IS NOT hnel=2183) ACCURATE CREATININE CLEARANCE IN PREDICTING GLOMERULAR FILTRATION RATE. ESTIMATED GFR IS NOT APPLICABLE FOR DIALYSIS PATIENTS. CBC W/PLT COUNT & AUTO [id number] 22:22:00 Test Item Value Reference Range Comments WHITE BLOOD CELL COUNT 8.0 K/ L 3.5-10.5 (BEAKER) (test igiy=437) RED BLOOD CELL COUNT (BEAKER) 4.53 M/ L 3.93-5.22 (test vhqx=934) HEMOGLOBIN (BEAKER) (test 10.5 GM/DL 11.2-15.7 vlvl=463) HEMATOCRIT (BEAKER) (test 35.1 % 34.1-44.9 gctq=187) MEAN CORPUSCULAR VOLUME 77.5 fL 79.4-94.8 (BEAKER) (test qdml=125) MEAN CORPUSCULAR HEMOGLOBIN 23.2 pg 25.6-32.2 (BEAKER) (test snha=279) MEAN CORPUSCULAR HEMOGLOBIN 29.9 GM/DL 32.2-35.5 CONC (BEAKER) (test mdbj=422) RED CELL DISTRIBUTION WIDTH 20.6 % 11.7-14.4 (BEAKER) (test maez=937) PLATELET COUNT (BEAKER) (test 97 K/CU MM 150-450 vqrx=639) MEAN PLATELET VOLUME (BEAKER) fL 9.4-12.3 Unable to report due to (test ngft=681) abnormal Platelet population distribution. NUCLEATED RED BLOOD CELLS 0 /100 WBC 0-0 (BEAKER) (test ntpk=846) NEUTROPHILS RELATIVE PERCENT 80 % (BEAKER) (test plgt=944) LYMPHOCYTES RELATIVE PERCENT 16 % (BEAKER) (test scro=339) MONOCYTES RELATIVE PERCENT 4 % (BEAKER) (test iizv=277) EOSINOPHILS RELATIVE PERCENT 0 % (BEAKER) (test etou=782) BASOPHILS RELATIVE PERCENT 0 % (BEAKER) (test khqq=320) NEUTROPHILS ABSOLUTE COUNT 6.41 K/ L 1.56-6.13 (BEAKER) (test kata=798) LYMPHOCYTES ABSOLUTE COUNT 1.24 K/ L 1.18-3.74 (BEAKER) (test naej=225) MONOCYTES ABSOLUTE COUNT 0.32 K/ L 0.24-0.36 (BEAKER) (test bksf=432) EOSINOPHILS ABSOLUTE COUNT 0.00 K/ L 0.04-0.36 (BEAKER) (test tvnp=991) BASOPHILS ABSOLUTE COUNT 0.01 K/ L 0.01-0.08 (BEAKER) (test xhei=662) IMMATURE GRANULOCYTES-RELATIVE 1 % 0-1 PERCENT (BEAKER) (test sbbc=8899) BASIC METABOLIC [id number] 21:08:00 Test Item Value Reference Range Comments SODIUM (BEAKER) (test 135 meq/L 136-145 cwbb=312) POTASSIUM (BEAKER) (test 4.4 meq/L 3.5-5.1 ergg=733) CHLORIDE (BEAKER) (test 111 meq/L 98-107 mmrv=694) CO2 (BEAKER) (test 15 meq/L 22-29 itxh=118) BLOOD UREA NITROGEN 7 mg/dL 7-21 (BEAKER) (test gzlv=224) CREATININE (BEAKER) (test 0.62 mg/dL 0.57-1.25 ympb=755) GLUCOSE RANDOM (BEAKER) 95 mg/dL 70-105 (test kppc=416) CALCIUM (BEAKER) (test 8.9 mg/dL 8.4-10.2 gezo=380) EGFR (BEAKER) (test 131 mL/min/1.73 sq m ESTIMATED GFR IS NOT pcku=7374) ACCURATE CREATININE CLEARANCE IN PREDICTING GLOMERULAR FILTRATION RATE. ESTIMATED GFR IS NOT APPLICABLE FOR DIALYSIS PATIENTS. RAD, CHEST, 1 VIEW, NON [id number] 13:37:00Reason for exam:->eval for pneumothoraxReason for exam:->in [...] [place] MDReport Verified Date/Time: 13:37:49 Reading Location: [facility] Radiology Reading Room CBC W/PLT COUNT & amp; AUTO [id number] 09:50:00 Test Item Value Reference Range Comments WHITE BLOOD CELL COUNT 5.8 K/ L 3.5-10.5 (BEAKER) (test qkld=094) RED BLOOD CELL COUNT (BEAKER) 4.38 M/ L 3.93-5.22 (test obaz=026) HEMOGLOBIN (BEAKER) (test 10.3 GM/DL 11.2-15.7 rzra=610) HEMATOCRIT (BEAKER) (test 33.7 % 34.1-44.9 lpcf=785) MEAN CORPUSCULAR VOLUME 76.9 fL 79.4-94.8 (BEAKER) (test mjbm=341) MEAN CORPUSCULAR HEMOGLOBIN 23.5 pg 25.6-32.2 (BEAKER) (test nbjt=856) MEAN CORPUSCULAR HEMOGLOBIN 30.6 GM/DL 32.2-35.5 CONC (BEAKER) (test wvar=788) RED CELL DISTRIBUTION WIDTH 20.5 % 11.7-14.4 (BEAKER) (test ejae=572) PLATELET COUNT (BEAKER) (test K/CU MM 150-450 Platelet clumps yzpq=407) present;unable to report true count. Platelet count should be recollected using an EDTA and CITRATE(blue) tube. MEAN PLATELET VOLUME (BEAKER) fL 9.4-12.3 Unable to report due to (test fgic=157) abnormal Platelet population distribution. NUCLEATED RED BLOOD CELLS 0 /100 WBC 0-0 (BEAKER) (test vten=940) NEUTROPHILS RELATIVE PERCENT 47 % (BEAKER) (test idrp=700) LYMPHOCYTES RELATIVE PERCENT 33 % (BEAKER) (test ivug=287) MONOCYTES RELATIVE PERCENT 12 % (BEAKER) (test bhkg=877) EOSINOPHILS RELATIVE PERCENT 8 % (BEAKER) (test yvsv=965) BASOPHILS RELATIVE PERCENT 0 % (BEAKER) (test ehlz=760) NEUTROPHILS ABSOLUTE COUNT 2.70 K/ L 1.56-6.13 (BEAKER) (test umep=011) LYMPHOCYTES ABSOLUTE COUNT 1.90 K/ L 1.18-3.74 (BEAKER) (test dbcg=088) MONOCYTES ABSOLUTE COUNT 0.66 K/ L 0.24-0.36 (BEAKER) (test tuyw=213) EOSINOPHILS ABSOLUTE COUNT 0.45 K/ L 0.04-0.36 (BEAKER) (test qhhi=021) BASOPHILS ABSOLUTE COUNT 0.02 K/ L 0.01-0.08 (BEAKER) (test yxbe=026) IMMATURE GRANULOCYTES-RELATIVE 0 % 0-1 PERCENT (BEAKER) (test gcpb=9541) FL, DIRECT CARE SPECIALIST IN OR/30 MINUTE [id number] 09:43:00Reason for exam:-> PCNLIs the patient ?->NoWhen [...] [place] MDReport Verified Date/Time: 2017 09:43:00 Reading Location:[facility] Radiology Reading Room 09:43 AMBASIC METABOLIC [id number] 07:59:00 Test Item Value Reference Range Comments SODIUM (BEAKER) (test 135 meq/L 136-145 dmui=025) POTASSIUM (BEAKER) (test 4.2 meq/L 3.5-5.1 gbyp=086) CHLORIDE (BEAKER) (test 110 meq/L 98-107 deup=522) CO2 (BEAKER) (test 18 meq/L 22-29 wuck=475) BLOOD UREA NITROGEN 7 mg/dL 7-21 (BEAKER) (test jbjz=165) CREATININE (BEAKER) (test 0.63 mg/dL 0.57-1.25 oltq=682) GLUCOSE RANDOM (BEAKER) 84 mg/dL 70-105 (test cyoa=032) CALCIUM (BEAKER) (test 8.6 mg/dL 8.4-10.2 saat=843) EGFR (BEAKER) (test 128 mL/min/1.73 sq m ESTIMATED GFR IS NOT iayb=7173) ACCURATE CREATININE CLEARANCE IN PREDICTING GLOMERULAR FILTRATION RATE. ESTIMATED GFR IS NOT APPLICABLE FOR DIALYSIS PATIENTS. HEMOGLOBIN AND [id number] 14:41:00 Test Item Value Reference Range Comments HEMOGLOBIN (BEAKER) (test gqxn=734) 6.5 GM/DL 11.2-15.7 HEMATOCRIT (BEAKER) (test hsju=139) 23.1 % 34.1-44.9 BASIC METABOLIC [id number] 08:36:00 Test Item Value Reference Range Comments SODIUM (BEAKER) (test 135 meq/L 136-145 mqai=576) POTASSIUM (BEAKER) (test 4.1 meq/L 3.5-5.1 lnie=729) CHLORIDE (BEAKER) (test 111 meq/L 98-107 nwxe=031) CO2 (BEAKER) (test 18 meq/L 22-29 wdzo=550) BLOOD UREA NITROGEN 8 mg/dL 7-21 (BEAKER) (test xziq=709) CREATININE (BEAKER) (test 0.61 mg/dL 0.57-1.25 yssq=657) GLUCOSE RANDOM (BEAKER) 75 mg/dL 70-105 (test wahj=483) CALCIUM (BEAKER) (test 8.4 mg/dL 8.4-10.2 icqf=094) EGFR (BEAKER) (test 133 mL/min/1.73 sq m ESTIMATED GFR IS NOT daac=8886) ACCURATE CREATININE CLEARANCE IN PREDICTING GLOMERULAR FILTRATION RATE. ESTIMATED GFR IS NOT APPLICABLE FOR DIALYSIS PATIENTS. CBC W/PLT COUNT & AUTO [id number] 05:49:00 Test Item Value Reference Range Comments WHITE BLOOD CELL COUNT (BEAKER) (test dmpe=485) 5.1 K/ L 3.5-10.5 RED BLOOD CELL COUNT (BEAKER) (test qlih=598) 3.14 M/ L 3.93-5.22 HEMOGLOBIN (BEAKER) (test yzef=676) 6.3 GM/DL 11.2-15.7 HEMATOCRIT (BEAKER) (test xsoz=804) 22.8 % 34.1-44.9 MEAN CORPUSCULAR VOLUME (BEAKER) (test fjjo=233) 72.6 fL 79.4-94.8 MEAN CORPUSCULAR HEMOGLOBIN (BEAKER) (test 20.1 pg 25.6-32.2 oxcj=160) MEAN CORPUSCULAR HEMOGLOBIN CONC (BEAKER) (test 27.6 GM/DL 32.2-35.5 ghag=299) RED CELL DISTRIBUTION WIDTH (BEAKER) (test 20.5 % 11.7-14.4 zoax=399) PLATELET COUNT (BEAKER) (test yhki=703) 426 K/CU MM 150-450 MEAN PLATELET VOLUME (BEAKER) (test pdpv=520) 10.9 fL 9.4-12.3 NUCLEATED RED BLOOD CELLS (BEAKER) (test 0 /100 WBC 0-0 kpce=053) NEUTROPHILS RELATIVE PERCENT (BEAKER) (test 47 % yxtc=966) LYMPHOCYTES RELATIVE PERCENT (BEAKER) (test 30 % fomr=947) MONOCYTES RELATIVE PERCENT (BEAKER) (test 13 % gbcf=256) EOSINOPHILS RELATIVE PERCENT (BEAKER) (test 10 % tamm=493) BASOPHILS RELATIVE PERCENT (BEAKER) (test 0 % lnhw=498) NEUTROPHILS ABSOLUTE COUNT (BEAKER) (test 2.35 K/ L 1.56-6.13 zgii=551) LYMPHOCYTES ABSOLUTE COUNT (BEAKER) (test 1.53 K/ L 1.18-3.74 pcpv=195) MONOCYTES ABSOLUTE COUNT (BEAKER) (test 0.67 K/ L 0.24-0.36 tldc=257) EOSINOPHILS ABSOLUTE COUNT (BEAKER) (test 0.48 K/ L 0.04-0.36 drkl=928) BASOPHILS ABSOLUTE COUNT (BEAKER) (test 0.01 K/ L 0.01-0.08 ovaw=855) IMMATURE GRANULOCYTES-RELATIVE PERCENT (BEAKER) 0 % 0-1 (test drcz=8095) HEMOGLOBIN AND [id number] 14:34:00 Test Item Value Reference Range Comments HEMOGLOBIN (BEAKER) (test gsxy=948) 7.0 GM/DL 11.2-15.7 HEMATOCRIT (BEAKER) (test hdgz=004) 24.7 % 34.1-44.9 CBC W/PLT COUNT & AUTO [id number] 10:55:00 Test Item Value Reference Range Comments WHITE BLOOD CELL COUNT 6.0 K/ L 3.5-10.5 (BEAKER) (test pomh=670) RED BLOOD CELL COUNT (BEAKER) 3.59 M/ L 3.93-5.22 (test vgbc=109) HEMOGLOBIN (BEAKER) (test 7.3 GM/DL 11.2-15.7 ywfb=453) HEMATOCRIT (BEAKER) (test 25.9 % 34.1-44.9 nddw=539) MEAN CORPUSCULAR VOLUME 72.1 fL 79.4-94.8 (BEAKER) (test mntg=308) MEAN CORPUSCULAR HEMOGLOBIN 20.3 pg 25.6-32.2 (BEAKER) (test sruv=858) MEAN CORPUSCULAR HEMOGLOBIN 28.2 GM/DL 32.2-35.5 CONC (BEAKER) (test boxu=025) RED CELL DISTRIBUTION WIDTH 20.2 % 11.7-14.4 (BEAKER) (test rtyn=134) PLATELET COUNT (BEAKER) (test 592 K/CU MM 150-450 Platelets count from qjrp=689) citrated tube. MEAN PLATELET VOLUME (BEAKER) 9.4 fL 9.4-12.3 (test zbfx=779) NUCLEATED RED BLOOD CELLS 0 /100 WBC 0-0 (BEAKER) (test bfsb=458) NEUTROPHILS RELATIVE PERCENT 56 % (BEAKER) (test zqpc=334) LYMPHOCYTES RELATIVE PERCENT 26 % (BEAKER) (test miza=361) MONOCYTES RELATIVE PERCENT 10 % (BEAKER) (test zqqr=946) EOSINOPHILS RELATIVE PERCENT 8 % (BEAKER) (test xeqx=712) BASOPHILS RELATIVE PERCENT 0 % (BEAKER) (test ukks=957) NEUTROPHILS ABSOLUTE COUNT 3.35 K/ L 1.56-6.13 (BEAKER) (test jdks=721) LYMPHOCYTES ABSOLUTE COUNT 1.53 K/ L 1.18-3.74 (BEAKER) (test grzp=255) MONOCYTES ABSOLUTE COUNT 0.60 K/ L 0.24-0.36 (BEAKER) (test qaqo=663) EOSINOPHILS ABSOLUTE COUNT 0.47 K/ L 0.04-0.36 (BEAKER) (test ubys=052) BASOPHILS ABSOLUTE COUNT 0.02 K/ L 0.01-0.08 (BEAKER) (test ahhw=074) IMMATURE GRANULOCYTES-RELATIVE 0 % 0-1 PERCENT (BEAKER) (test jvff=2832) BASIC METABOLIC [id number] 06:21:00 Test Item Value Reference Range Comments SODIUM (BEAKER) (test 138 meq/L 136-145 claf=079) POTASSIUM (BEAKER) (test 4.6 meq/L 3.5-5.1 Specimen slightly cege=733) hemolyzed CHLORIDE (BEAKER) (test 114 meq/L 98-107 fwcn=618) CO2 (BEAKER) (test 15 meq/L 22-29 uzxb=629) BLOOD UREA NITROGEN 9 mg/dL 7-21 (BEAKER) (test oofw=329) CREATININE (BEAKER) (test 0.67 mg/dL 0.57-1.25 Specimen slightly okqg=195) hemolyzed GLUCOSE RANDOM (BEAKER) 81 mg/dL 70-105 (test byoo=304) CALCIUM (BEAKER) (test 8.6 mg/dL 8.4-10.2 yudo=302) EGFR (BEAKER) (test 119 mL/min/1.73 sq m ESTIMATED GFR IS NOT dkia=7050) ACCURATE CREATININE CLEARANCE IN PREDICTING GLOMERULAR FILTRATION RATE. ESTIMATED GFR IS NOT APPLICABLE FOR DIALYSIS PATIENTS. CBC W/PLT COUNT & AUTO [id number] 14:39:00 Test Item Value Reference Range Comments WHITE BLOOD CELL COUNT 5.3 K/ L 3.5-10.5 (BEAKER) (test apux=981) RED BLOOD CELL COUNT (BEAKER) 3.55 M/ L 3.93-5.22 (test yadf=115) HEMOGLOBIN (BEAKER) (test 7.3 GM/DL 11.2-15.7 sguw=943) HEMATOCRIT (BEAKER) (test 25.9 % 34.1-44.9 bljv=805) MEAN CORPUSCULAR VOLUME 73.0 fL 79.4-94.8 (BEAKER) (test iygy=554) MEAN CORPUSCULAR HEMOGLOBIN 20.6 pg 25.6-32.2 (BEAKER) (test qwpw=791) MEAN CORPUSCULAR HEMOGLOBIN 28.2 GM/DL 32.2-35.5 CONC (BEAKER) (test geeq=732) RED CELL DISTRIBUTION WIDTH 20.3 % 11.7-14.4 (BEAKER) (test hxvj=537) PLATELET COUNT (BEAKER) (test 554 K/CU MM 150-450 Platelet Clumps present. iwqk=528) Unable to report true count on Purple top. Platelet Count using citrate tube MEAN PLATELET VOLUME (BEAKER) fL 9.4-12.3 Unable to report due to (test msjh=315) abnormal Platelet population distribution. NUCLEATED RED BLOOD CELLS 0 /100 WBC 0-0 (BEAKER) (test hapl=110) NEUTROPHILS RELATIVE PERCENT 61 % (BEAKER) (test npln=382) LYMPHOCYTES RELATIVE PERCENT 25 % (BEAKER) (test wyhh=801) MONOCYTES RELATIVE PERCENT 8 % (BEAKER) (test kqlx=615) EOSINOPHILS RELATIVE PERCENT 6 % (BEAKER) (test hcpw=999) BASOPHILS RELATIVE PERCENT 0 % (BEAKER) (test xscf=552) NEUTROPHILS ABSOLUTE COUNT 3.25 K/ L 1.56-6.13 (BEAKER) (test qjhq=894) LYMPHOCYTES ABSOLUTE COUNT 1.32 K/ L 1.18-3.74 (BEAKER) (test zgas=362) MONOCYTES ABSOLUTE COUNT 0.40 K/ L 0.24-0.36 (BEAKER) (test nrzf=113) EOSINOPHILS ABSOLUTE COUNT 0.34 K/ L 0.04-0.36 (BEAKER) (test bfou=440) BASOPHILS ABSOLUTE COUNT 0.01 K/ L 0.01-0.08 (BEAKER) (test rkyk=556) IMMATURE GRANULOCYTES-RELATIVE 0 % 0-1 PERCENT (BEAKER) (test yohk=1813) RAD, CHEST, 1 VIEW, NON [id number] 10:16:00Reason for exam:->Post Power PICC insertion RUE for tip verificationShould this be performed at the bedside?- >YesFINAL REPORT AP chest HISTORY: PICC placement COMPARISON: None IMPRESSION:Right arm PICC present with tip at upper SVC. SVC filter present. Left-sided WIRE WALKER shunt. Grossly normal cardiac silhouette. Right lung clear. Moderate left effusion. Signed: Satish Kerr MDReport VerifiedDate/Time: 06/25/2018 10:16:18 Reading Location: [facility] [id number] Ortho Consult Reading Room BASIC METABOLIC [id number] 09:58:00 Test Item Value Reference Range Comments SODIUM (BEAKER) (test 136 meq/L 136-145 vsji=227) POTASSIUM (BEAKER) (test 4.4 meq/L 3.5-5.1 Specimen slightly yscx=825) hemolyzed CHLORIDE (BEAKER) (test 107 meq/L 98-107 rqhy=931) CO2 (BEAKER) (test 23 meq/L 22-29 ddhm=195) BLOOD UREA NITROGEN 11 mg/dL 7-21 (BEAKER) (test rwsh=227) CREATININE (BEAKER) (test 0.68 mg/dL 0.57-1.25 Specimen slightly bbyg=990) hemolyzed GLUCOSE RANDOM (BEAKER) 92 mg/dL 70-105 (test recc=096) CALCIUM (BEAKER) (test 8.9 mg/dL 8.4-10.2 ahoo=694) EGFR (BEAKER) (test 117 mL/min/1.73 sq m ESTIMATED GFR IS NOT gxqt=4522) ACCURATE CREATININE CLEARANCE IN PREDICTING GLOMERULAR FILTRATION RATE. ESTIMATED GFR IS NOT APPLICABLE FOR DIALYSIS PATIENTS. CBC W/PLT COUNT & AUTO [id number] 13:38:00 Test Item Value Reference Range Comments WHITE BLOOD CELL COUNT 7.5 K/ L 3.5-10.5 (BEAKER) (test eqzj=586) RED BLOOD CELL COUNT (BEAKER) 4.45 M/ L 3.93-5.22 (test zbbj=023) HEMOGLOBIN (BEAKER) (test 9.2 GM/DL 11.2-15.7 pyuu=399) HEMATOCRIT (BEAKER) (test 32.4 % 34.1-44.9 ncso=689) MEAN CORPUSCULAR VOLUME 72.8 fL 79.4-94.8 (BEAKER) (test hizo=277) MEAN CORPUSCULAR HEMOGLOBIN 20.7 pg 25.6-32.2 (BEAKER) (test dbqh=388) MEAN CORPUSCULAR HEMOGLOBIN 28.4 GM/DL 32.2-35.5 CONC (BEAKER) (test xttu=209) RED CELL DISTRIBUTION WIDTH 20.6 % 11.7-14.4 (BEAKER) (test tozc=054) PLATELET COUNT (BEAKER) (test 275 K/CU MM 150-450 vaip=513) MEAN PLATELET VOLUME (BEAKER) fL 9.4-12.3 Unable to report due to (test lyhl=610) abnormal Platelet population distribution. NUCLEATED RED BLOOD CELLS 0 /100 WBC 0-0 (BEAKER) (test elox=033) NEUTROPHILS RELATIVE PERCENT 65 % (BEAKER) (test tqzr=639) LYMPHOCYTES RELATIVE PERCENT 23 % (BEAKER) (test hgtg=525) MONOCYTES RELATIVE PERCENT 8 % (BEAKER) (test fbie=222) EOSINOPHILS RELATIVE PERCENT 4 % (BEAKER) (test vqot=418) BASOPHILS RELATIVE PERCENT 0 % (BEAKER) (test ozby=121) NEUTROPHILS ABSOLUTE COUNT 4.86 K/ L 1.56-6.13 (BEAKER) (test idga=683) LYMPHOCYTES ABSOLUTE COUNT 1.69 K/ L 1.18-3.74 (BEAKER) (test patr=738) MONOCYTES ABSOLUTE COUNT 0.60 K/ L 0.24-0.36 (BEAKER) (test jugz=376) EOSINOPHILS ABSOLUTE COUNT 0.30 K/ L 0.04-0.36 (BEAKER) (test bcdx=486) BASOPHILS ABSOLUTE COUNT 0.02 K/ L 0.01-0.08 (BEAKER) (test vrqp=234) IMMATURE GRANULOCYTES-RELATIVE 0 % 0-1 PERCENT (BEAKER) (test uyga=3538) BASIC METABOLIC [id number] 13:03:00 Test Item Value Reference Range Comments SODIUM (BEAKER) (test 134 meq/L 136-145 oijl=768) POTASSIUM (BEAKER) (test 4.3 meq/L 3.5-5.1 qjrg=960) CHLORIDE (BEAKER) (test 104 meq/L 98-107 nmht=010) CO2 (BEAKER) (test 19 meq/L 22-29 orpt=324) BLOOD UREA NITROGEN 11 mg/dL 7-21 (BEAKER) (test vgub=638) CREATININE (BEAKER) (test 0.72 mg/dL 0.57-1.25 sknv=984) GLUCOSE RANDOM (BEAKER) 82 mg/dL 70-105 (test alns=638) CALCIUM (BEAKER) (test 9.7 mg/dL 8.4-10.2 fvxy=801) EGFR (BEAKER) (test 110 mL/min/1.73 sq m ESTIMATED GFR IS NOT htkf=0777) ACCURATE CREATININE CLEARANCE IN PREDICTING GLOMERULAR FILTRATION RATE. ESTIMATED GFR IS NOT APPLICABLE FOR DIALYSIS PATIENTS. BODY FLUID CULTURE + GRAM [id number] 16:53:00 Test Item Value Reference Range Comments CULTURE (BEAKER) (test ENTEROBACTER CLOACAE 2+ Enterobacter apzb=9883) COMPLEX cloacae complexESBL PositiveAmpC Positive Amikacin (test code=1) Aztreonam (test code=32) Cefepime (test code=51) Cefoxitin (test code=68) Ceftazidime (test code=27) Ceftriaxone (test code=52) Ertapenem (test code=38) Gentamicin (test code=18) Levofloxacin (test code=22) Meropenem (test code=34) Nitrofurantoin (test code=23) Piperacillin + Tazobactam (test code=29) Tetracycline (test code=2) Tobramycin (test code=25) Trimethoprim + Sulfamethoxazole (test code=47) CULTURE (BEAKER) (test ENTEROCOCCUS SPECIES 2+ Enterococcus gvht=4420) species Ampicillin (test code=26) Linezolid (test code=40) Vancomycin (test code=13) CULTURE (BEAKER) (test 2+ Katie ajdo=4729) parapsilosis GRAM STAIN RESULT (BEAKER) No organisms seen (test zrtc=6799) GRAM STAIN RESULT (BEAKER) 1+ White blood cells (test pgil=[id number]) seen URINE [id number] 10:14:00 Test Item Value Reference Range Comments CULTURE (BEAKER) (test ENTEROBACTER CLOACAE >100,000 col/mL tili=8016) COMPLEX Enterobacter cloacae complex Amikacin (test code=1) Aztreonam (test code=32) Cefepime (test code=51) Cefoxitin (test code=68) Ceftazidime (test code=27) Ceftriaxone (test code=52) Gentamicin (test code=18) Levofloxacin (test code=22) Meropenem (test code=34) Nitrofurantoin (test code=23) Piperacillin + Tazobactam (test code=29) Tetracycline (test code=2) Tobramycin (test code=25) Trimethoprim + Sulfamethoxazole (test code=47) CULTURE (BEAKER) (test PSEUDOMONAS 30-39,000 col/mL hmwg=5961) AERUGINOSA Pseudomonas aeruginosa Amikacin (test code=1) Susceptible [...] CULTURE (BEAKER) (test ENTEROCOCCUS SPECIES 50-59,000 col/mL lnwp=7803) Enterococcus species Ampicillin (test code=26) Linezolid (test code=40) Nitrofurantoin (test code=23) Tetracycline (test code=2) Vancomycin (test code=13) BLOOD [id number] 11:00:00 Test Item Value Reference Range Comments CULTURE (BEAKER) (test gjze=4462) No growth in 5 days BLOOD [id number] 06:00:00 Test Item Value Reference Range Comments CULTURE (BEAKER) (test tkfm=2472) No growth in 5 days BASIC METABOLIC [id number] 04:43:00 Test Item Value Reference Range Comments SODIUM (BEAKER) (test 141 meq/L 136-145 fyzy=915) POTASSIUM (BEAKER) (test 3.7 meq/L 3.5-5.1 vmrg=951) CHLORIDE (BEAKER) (test 112 meq/L 98-107 edvv=561) CO2 (BEAKER) (test 21 meq/L 22-29 ndtv=528) BLOOD UREA NITROGEN 12 mg/dL 7-21 (BEAKER) (test dezm=841) CREATININE (BEAKER) (test 0.63 mg/dL 0.57-1.25 pesy=599) GLUCOSE RANDOM (BEAKER) 83 mg/dL 70-105 (test rslm=928) CALCIUM (BEAKER) (test 8.9 mg/dL 8.4-10.2 huhm=489) EGFR (BEAKER) (test 128 mL/min/1.73 sq m ESTIMATED GFR IS NOT hydw=8171) ACCURATE CREATININE CLEARANCE IN PREDICTING GLOMERULAR FILTRATION RATE. ESTIMATED GFR IS NOT APPLICABLE FOR DIALYSIS PATIENTS. URINALYSIS W/ REFLEX URINE [id number] 15:11:00 Test Item Value Reference Range Comments COLOR (BEAKER) (test ldgq=848) [place] CLARITY (BEAKER) (test exmf=958) Hazy SPECIFIC GRAVITY UA (BEAKER) (test buty=515) 1.013 1.001-1.035 PH UA (BEAKER) (test dqyy=106) 6.0 5.0-8.0 PROTEIN UA (BEAKER) (test iomj=775) 100 mg/dL Negative GLUCOSE UA (BEAKER) (test sgdz=964) Negative Negative KETONES UA (BEAKER) (test gpbt=367) Trace Negative BILIRUBIN UA (BEAKER) (test lsuy=355) Negative Negative BLOOD UA (BEAKER) (test cypd=774) Large Negative NITRITE UA (BEAKER) (test hppc=117) Negative Negative LEUKOCYTE ESTERASE UA (BEAKER) (test lvax=153) Large Negative UROBILINOGEN UA (BEAKER) (test bnxm=901) 0.2 mg/dL 0.2-1.0 RBC UA (BEAKER) (test swxd=325) > /HPF WBC UA (BEAKER) (test uiuc=567) 68 /HPF MUCUS (BEAKER) (test qbin=3889) Rare SOURCE(BEAKER) (test lors=2622) ANG, NEPHROSTOMY, PERC, EXTERNAL [id number] 13:43:00Reason for exam:-> right obstructing stone with UTI, needs right PCNU if possible or PCN if notFINAL REPORT Fluoroscopic and ultrasound guided right nephroureterostomy tube placement, 06/12/2018. Clinical History: Obstructing stone at the junction of the right distal ureter and ileoconduit with hydronephrosis and urosepsis. Patient has a history of spina bifida/caudal regression. Modality: Sonography and fluoroscopy Superintendent Factory: Faisal Felix MD. Director Regulatory Compliance: None. Sedation: General anesthesia provided by the [...] then removed. The tract wasdilated to 8 Romansh. An 8.5 Romansh by 28 cm nephroureterostomy catheter was then [...] [place] Verified Date/Time: 06/12/2018 13:43:17 Reading Location: [place] [address] Angio Body Reading Room CBC (HEMOGRAM ONLY)2018-06-12 10:29:00 Test Item Value Reference Range Comments WHITE BLOOD CELL COUNT (BEAKER) 8.5 K/ L 3.5-10.5 (test pafc=339) RED BLOOD CELL COUNT (BEAKER) 4.23 M/ L 3.93-5.22 (test opaa=564) HEMOGLOBIN (BEAKER) (test 9.1 GM/DL 11.2-15.7 avzs=306) HEMATOCRIT (BEAKER) (test 31.4 % 34.1-44.9 acxu=723) MEAN CORPUSCULAR VOLUME 74.2 fL 79.4-94.8 (BEAKER) (test rwnl=618) MEAN CORPUSCULAR HEMOGLOBIN 21.5 pg 25.6-32.2 (BEAKER) (test dzbj=026) MEAN CORPUSCULAR HEMOGLOBIN 29.0 GM/DL 32.2-35.5 CONC (BEAKER) (test krbh=013) RED CELL DISTRIBUTION WIDTH 20.4 % 11.7-14.4 (BEAKER) (test wkld=363) PLATELET COUNT (BEAKER) (test K/CU MM 150-450 Platelet clumps present, sgnp=111) unable to report true platelet. Recommend recollect using EDTA tube and blue (Citrate) tube. spoke to RN ID:[id number] NUCLEATED RED BLOOD CELLS 0 /100 WBC 0-0 (BEAKER) (test lxof=531) BASIC METABOLIC [id number] 06:52:00 Test Item Value Reference Range Comments SODIUM (BEAKER) (test 137 meq/L 136-145 rynw=590) POTASSIUM (BEAKER) (test 3.6 meq/L 3.5-5.1 mtyn=901) CHLORIDE (BEAKER) (test 108 meq/L 98-107 fpna=971) CO2 (BEAKER) (test 20 meq/L 22-29 hvty=082) BLOOD UREA NITROGEN 14 mg/dL 7-21 (BEAKER) (test tvss=579) CREATININE (BEAKER) (test 0.66 mg/dL 0.57-1.25 jwye=699) GLUCOSE RANDOM (BEAKER) 87 mg/dL 70-105 (test zoyk=250) CALCIUM (BEAKER) (test 9.1 mg/dL 8.4-10.2 ohiu=612) EGFR (BEAKER) (test 121 mL/min/1.73 sq m ESTIMATED GFR IS NOT xtnd=6519) ACCURATE CREATININE CLEARANCE IN PREDICTING GLOMERULAR FILTRATION RATE. ESTIMATED GFR IS NOT APPLICABLE FOR DIALYSIS PATIENTS. [id number] 06:37:00 Test Item Value Reference Range Comments PROTIME (BEAKER) (test kosi=665) 14.4 seconds 11.7-14.7 INR (BEAKER) (test ulsf=835) 1.1 <=5.9 PARTIAL THROMBOPLASTIN TIME (BEAKER) (test 30.8 seconds 22.5-36.0 wmvl=946) RECOMMENDED COUMADIN/WARFARIN INR THERAPY RANGESSTANDARD DOSE: 2.0 - 3.0 Includes: PROPHYLAXIS forvenous thrombosis, systemic embolization; TREATMENT for venous thrombosis and/or pulmonary embolus.HIGH RISK: Target INR is 2.5-3.5 for patients with mechanical heart valves.CT, [id number] 18:04:00FINAL REPORT CT scan of the abdomen [...] is a perineal decubitus ulcer. Signed: Florin aJcobo MDReport Verified Date/Time: 06/11/2018 18:04:02 Reading Location: [address] Consult Reading Room PREGNANCY SCREEN, [id number] 15:46:00 Test Item Value Reference Range Comments TEST URINE (BEAKER) (test gual=721) Negative URINALYSIS W/ REFLEX URINE [id number] 12:32:00 Test Item Value Reference Range Comments COLOR (BEAKER) (test arwi=094) Light Yellow CLARITY (BEAKER) (test yfbc=122) Cloudy SPECIFIC GRAVITY UA (BEAKER) (test kuhw=875) 1.013 1.001-1.035 PH UA (BEAKER) (test zyet=289) 7.5 5.0-8.0 PROTEIN UA (BEAKER) (test wcgw=953) 30 mg/dL Negative GLUCOSE UA (BEAKER) (test odoo=532) Negative Negative KETONES UA (BEAKER) (test wlfn=068) Trace Negative BILIRUBIN UA (BEAKER) (test ilhq=439) Negative Negative BLOOD UA (BEAKER) (test jhew=689) Small Negative NITRITE UA (BEAKER) (test xokc=578) Positive Negative LEUKOCYTE ESTERASE UA (BEAKER) (test oufh=083) Large Negative UROBILINOGEN UA (BEAKER) (test ymdt=533) 0.2 mg/dL 0.2-1.0 RBC UA (BEAKER) (test uzha=030) 2 /HPF WBC UA (BEAKER) (test tlrx=346) 5 /HPF BACTERIA (BEAKER) (test blbo=617) Occasional MUCUS (BEAKER) (test jdga=4794) Rare SQUAMOUS EPITHELIAL (BEAKER) (test pdqr=584) 1 /HPF HYALINE CASTS (BEAKER) (test dutp=514) 2 /LPF SOURCE(BEAKER) (test wsrs=0680) URINALYSIS W/ [id number] 12:32:00 Test Item Value Reference Range Comments COLOR (BEAKER) (test giwy=402) Yellow CLARITY (BEAKER) (test zgnh=299) Hazy SPECIFIC GRAVITY UA (BEAKER) (test evgt=712) 1.012 1.001-1.035 PH UA (BEAKER) (test lqic=311) 8.0 5.0-8.0 PROTEIN UA (BEAKER) (test pzem=241) 50 mg/dL Negative GLUCOSE UA (BEAKER) (test bfui=564) Negative Negative KETONES UA (BEAKER) (test zqgj=094) Negative Negative BILIRUBIN UA (BEAKER) (test oolc=956) Negative Negative BLOOD UA (BEAKER) (test zhkc=073) Moderate Negative NITRITE UA (BEAKER) (test hwhj=426) Positive Negative LEUKOCYTE ESTERASE UA (BEAKER) (test Large Negative grfq=409) UROBILINOGEN UA (BEAKER) (test zoyh=972) 0.2 mg/dL 0.2-1.0 RBC UA (BEAKER) (test yuki=584) 6 /HPF WBC UA (BEAKER) (test ugqx=921) 10 /HPF BACTERIA (BEAKER) (test tygb=016) Many MUCUS (BEAKER) (test gzhi=7736) Many CRYSTALS, URINE (BEAKER) (test kmcq=0507) Occasional SOURCE(BEAKER) (test flgc=4639) Urine, Urostomy BASIC METABOLIC [id number] 06:01:00 Test Item Value Reference Range Comments SODIUM (BEAKER) (test 139 meq/L 136-145 dimt=650) POTASSIUM (BEAKER) (test 3.6 meq/L 3.5-5.1 wsla=899) CHLORIDE (BEAKER) (test 108 meq/L 98-107 ugju=157) CO2 (BEAKER) (test 23 meq/L 22-29 acmz=332) BLOOD UREA NITROGEN 12 mg/dL 7-21 (BEAKER) (test icml=028) CREATININE (BEAKER) (test 0.66 mg/dL 0.57-1.25 omzq=989) GLUCOSE RANDOM (BEAKER) 75 mg/dL 70-105 (test nnau=082) CALCIUM (BEAKER) (test 8.7 mg/dL 8.4-10.2 migu=268) EGFR (BEAKER) (test 121 mL/min/1.73 sq m ESTIMATED GFR IS NOT xbsr=8212) ACCURATE CREATININE CLEARANCE IN PREDICTING GLOMERULAR FILTRATION RATE. ESTIMATED GFR IS NOT APPLICABLE FOR DIALYSIS PATIENTS. LACTIC ACID, VENOUS, WHOLE [id number] 05:31:00 Test Item Value Reference Range Comments LACTATE BLOOD VENOUS (2) (BEAKER) (test 0.8 mmol/L 0.5-2.2 yydt=2616) Effective 01/01/2016: Units/Reference Range ChangeNew: 0.5-2.2 mmol/L Previous: 5 -20 mg/[id number] 05:20:00 Test Item Value Reference Range Comments PARTIAL THROMBOPLASTIN TIME (BEAKER) (test 35.9 seconds 22.5-36.0 dbgh=612) PROTHROMBIN TIME/[id number] 05:19:00 Test Item Value Reference Range Comments PROTIME (BEAKER) (test dhvx=755) 16.4 seconds 11.7-14.7 INR (BEAKER) (test axsf=972) 1.3 <=5.9 RECOMMENDED COUMADIN/WARFARIN INR THERAPY RANGESSTANDARD DOSE: 2.0 - 3.0 Includes: PROPHYLAXIS forvenous thrombosis, systemic embolization; TREATMENT for venous thrombosis and/or pulmonary embolus.HIGH RISK: Target INR is 2.5-3.5 for patients with mechanical heart valves.CBC W/PLT COUNT & AUTO [id number] 05:08:00 Test Item Value Reference Range Comments WHITE BLOOD CELL COUNT 12.2 K/ L 3.5-10.5 (BEAKER) (test lpys=142) RED BLOOD CELL COUNT (BEAKER) 4.90 M/ L 3.93-5.22 (test knjz=232) HEMOGLOBIN (BEAKER) (test 10.6 GM/DL 11.2-15.7 uqgs=295) HEMATOCRIT (BEAKER) (test 36.6 % 34.1-44.9 hkod=677) MEAN CORPUSCULAR VOLUME 74.7 fL 79.4-94.8 (BEAKER) (test dnlc=644) MEAN CORPUSCULAR HEMOGLOBIN 21.6 pg 25.6-32.2 (BEAKER) (test yzzg=017) MEAN CORPUSCULAR HEMOGLOBIN 29.0 GM/DL 32.2-35.5 CONC (BEAKER) (test tcuz=784) RED CELL DISTRIBUTION WIDTH 20.5 % 11.7-14.4 (BEAKER) (test gpfc=455) PLATELET COUNT (BEAKER) (test 340 K/CU MM 150-450 opar=436) MEAN PLATELET VOLUME (BEAKER) 9.4 fL 9.4-12.3 Discordant MPV result (test merr=035) compared to previous one; Clinical correlation required. NUCLEATED RED BLOOD CELLS 0 /100 WBC 0-0 (BEAKER) (test mlsh=976) NEUTROPHILS RELATIVE PERCENT 89 % (BEAKER) (test idoz=097) LYMPHOCYTES RELATIVE PERCENT 5 % (BEAKER) (test fesh=874) MONOCYTES RELATIVE PERCENT 4 % (BEAKER) (test fkld=538) EOSINOPHILS RELATIVE PERCENT 2 % (BEAKER) (test miud=117) BASOPHILS RELATIVE PERCENT 0 % (BEAKER) (test qmwi=776) NEUTROPHILS ABSOLUTE COUNT 10.83 K/ L 1.56-6.13 (BEAKER) (test acxn=553) LYMPHOCYTES ABSOLUTE COUNT 0.60 K/ L 1.18-3.74 (BEAKER) (test ivxu=582) MONOCYTES ABSOLUTE COUNT 0.45 K/ L 0.24-0.36 (BEAKER) (test kiqq=198) EOSINOPHILS ABSOLUTE COUNT 0.19 K/ L 0.04-0.36 (BEAKER) (test ggnu=496) BASOPHILS ABSOLUTE COUNT 0.03 K/ L 0.01-0.08 (BEAKER) (test wvxw=140) IMMATURE 1 % 0-1 GRANULOCYTES-RELATIVE PERCENT (BEAKER) (test dmrc=3411) LACTIC ACID, ARTERIAL, WHOLE [id number] 02:05:00 Test Item Value Reference Range Comments LACTATE BLOOD ARTERIAL (2) 0.6 mmol/L 0.5-2.2 Specimen slightly hemolyzed (BEAKER) (test vejy=3387) Effective 01/01/2016: Units/Reference Range ChangeNew: 0.5-2.2 mmol/L Previous: 5 -20 mg/[id number] 01:43:00 Test Item Value Reference Range Comments MAGNESIUM (BEAKER) (test 2.0 mg/dL 1.6-2.6 Specimen moderately hemolyzed knuo=860) [id number] 01:43:00 Test Item Value Reference Range Comments PHOSPHORUS (BEAKER) (test 3.0 mg/dL 2.3-4.7 Specimen moderately hemolyzed gpxp=931) COMPREHENSIVE METABOLIC [id number] 01:43:00 Test Item Value Reference Range Comments TOTAL PROTEIN (BEAKER) 7.3 gm/dL 6.0-8.3 Specimen moderately (test tskc=932) hemolyzed ALBUMIN (BEAKER) (test 3.3 g/dL 3.5-5.0 Specimen moderately pfxd=2458) hemolyzed ALKALINE PHOSPHATASE 56 U/L 40-150 (BEAKER) (test thqw=461) BILIRUBIN TOTAL (BEAKER) 0.4 mg/dL 0.2-1.2 Specimen moderately (test vhkm=685) hemolyzed SODIUM (BEAKER) (test 133 meq/L 136-145 xfmq=780) POTASSIUM (BEAKER) (test 4.5 meq/L 3.5-5.1 Specimen moderately txon=421) hemolyzed CHLORIDE (BEAKER) (test 108 meq/L 98-107 qxhp=907) CO2 (BEAKER) (test 15 meq/L 22-29 awye=324) BLOOD UREA NITROGEN 12 mg/dL 7-21 (BEAKER) (test gseu=918) CREATININE (BEAKER) (test 0.61 mg/dL 0.57-1.25 Specimen moderately xolm=915) hemolyzed GLUCOSE RANDOM (BEAKER) 92 mg/dL 70-105 (test gqmy=109) CALCIUM (BEAKER) (test 8.3 mg/dL 8.4-10.2 flfg=260) AST (SGOT) (BEAKER) (test 35 U/L 5-34 Specimen moderately inxa=234) hemolyzed ALT (SGPT) (BEAKER) (test 14 U/L 6-55 Specimen moderately vlul=344) hemolyzed EGFR (BEAKER) (test 133 mL/min/1.73 sq ESTIMATED GFR IS NOT twkd=5454) m ACCURATE CREATININE CLEARANCE IN PREDICTING GLOMERULAR FILTRATION RATE. ESTIMATED GFR IS NOT APPLICABLE FOR DIALYSIS PATIENTS. CBC W/PLT COUNT & AUTO [id number] 01:20:00 Test Item Value Reference Range Comments WHITE BLOOD CELL COUNT (BEAKER) (test jypi=686) 21.0 K/ L 3.5-10.5 RED BLOOD CELL COUNT (BEAKER) (test lxjc=575) 3.83 M/ L 3.93-5.22 HEMOGLOBIN (BEAKER) (test iypc=174) 8.4 GM/DL 11.2-15.7 HEMATOCRIT (BEAKER) (test totv=345) 28.3 % 34.1-44.9 MEAN CORPUSCULAR VOLUME (BEAKER) (test ofxz=634) 73.9 fL 79.4-94.8 MEAN CORPUSCULAR HEMOGLOBIN (BEAKER) (test 21.9 pg 25.6-32.2 xqka=905) MEAN CORPUSCULAR HEMOGLOBIN CONC (BEAKER) (test 29.7 GM/DL 32.2-35.5 jxmo=773) RED CELL DISTRIBUTION WIDTH (BEAKER) (test 20.3 % 11.7-14.4 qcug=067) PLATELET COUNT (BEAKER) (test haix=268) 398 K/CU MM 150-450 MEAN PLATELET VOLUME (BEAKER) (test qiqm=383) 10.2 fL 9.4-12.3 NUCLEATED RED BLOOD CELLS (BEAKER) (test 0 /100 WBC 0-0 atcr=885) NEUTROPHILS RELATIVE PERCENT (BEAKER) (test 87 % ynog=100) LYMPHOCYTES RELATIVE PERCENT (BEAKER) (test 6 % iwte=691) MONOCYTES RELATIVE PERCENT (BEAKER) (test 6 % cqph=334) EOSINOPHILS RELATIVE PERCENT (BEAKER) (test 1 % lcmm=772) BASOPHILS RELATIVE PERCENT (BEAKER) (test 0 % rybo=039) NEUTROPHILS ABSOLUTE COUNT (BEAKER) (test 18.34 K/ L 1.56-6.13 civd=790) LYMPHOCYTES ABSOLUTE COUNT (BEAKER) (test 1.15 K/ L 1.18-3.74 twcs=202) MONOCYTES ABSOLUTE COUNT (BEAKER) (test 1.21 K/ L 0.24-0.36 ponz=911) EOSINOPHILS ABSOLUTE COUNT (BEAKER) (test 0.13 K/ L 0.04-0.36 rmsc=561) BASOPHILS ABSOLUTE COUNT (BEAKER) (test 0.06 K/ L 0.01-0.08 wgmo=099) IMMATURE GRANULOCYTES-RELATIVE PERCENT (BEAKER) 1 % 0-1 (test modg=1530)
--- OUTSIDE RECORDS SUMMARY | 2019-10-20 15:01 | XMS REPORT | Summary of Care ---
:1980 Author Name DEVENDRA James, DEONDRE Address Unavailable Unavailable , Care Team Providers Name Role Phone DEVENDRA James, DEONDRE Unavailable Unavailable CHRISTOPHE James, ROBERTO Unavailable Unavailable YELITZA James, VERONA Unavailable Unavailable DEVENDRA MASON VA, DEONDRE Unavailable Unavailable Anais MASON, Karon Unavailable Unavailable ANKITA LOCKETT MD, ARGENTINA Unavailable Unavailable Juana MASON, Reyna Unavailable Unavailable JANIE MASON VA, IRVING TORRES Unavailable Unavailable LARRY MASON, ANNIE Unavailable Unavailable Trinidad MASON, James Unavailable Unavailable YELITZA MASON, VERONA K Unavailable Unavailable Unavailable Unavailable Unavailable Functional Status [...] Dry skin dermatitis (692.89, L85.3) Status: Active SB (spina bifida) (741.90, Q05.9) Status: Active Paraplegia (344.1, G82.20) Status: Active Pelvic prolapse (618.9, N81.9) Status: Active Right low back pain (724.2, M54.5) Status: Active Encounter for gynecological examination (V72.31, Z01.419) Status: Active Medications Name Dates Details amLODIPine [...] MEALS. Quantity: 30 Refills: 3 CHRISTOPHE James, ZULEIKHA Start : 25-Jan-2019 Active Mirena 20 MCG/24HR Intrauterine Intrauterine Device USE DIRECTED. Refills: 0 YELITZA James, VERONA Start : 12-Sep-2019 Active Ammonium Lactate 12 % External Cream APPLY AND RUB IN A THIN FILM TO AFFECTED AREAS TWICE DAILY.(AM AND PM). Quantity: 1 Refills: 3 YELITZA Angulo., VERONA Start : 12-Sep-2019 Active 385 GM [...] Z87.440) Status: Resolved Procedures Procedure Dates Details . [facility] - PAP Date: 20-Oct-2019 CT Abdomen/Pelvis w/wo contrast [id number] Date: 10-Oct-2019 History of Colostomy Completed History of Dilation And Curettage Of Cervical Stump Completed History of Hysteroscopy Completed History of Ureteral stent placement Completed History of Ventriculoperitoneal shunt creation Completed Immunization Name Dates Details Tdap (Adacel) on: Aug-2016 Fluzone Quadrivalent 0.5 ML Intramuscular Suspension on: Aug-2016 Social History Name Dates Details - Status: Name Dates Details Never smoked tobacco (finding) Never smoked tobacco (finding) Vital Signs Date Test Result Details [id number] Systolic blood pressure 154 mm[Hg] Status: Comments: Location: LLE; Position: Sitting Diastolic blood pressure 96 mm[Hg] Status: Comments: Location: LLE; Position : Sitting Body height 60 in Status: Weight 140 lb Status: Body mass index (BMI) [Ratio] 27.34 kg/m2 Status: Body surface area Derived from formula 1.6 m2 Status: Body temperature 98.4 f Status: Comments: Method: Oral Heart Rate 93 /min Status: 30-Lve-44183:41 Systolic blood pressure 132 mm[Hg] Status: Comments: Location: LUE; Position: Sitting Diastolic blood pressure 86 mm[Hg] Status: Comments: Location: LUE; Position : Sitting Weight 140 lb Status: Body mass index (BMI) [Ratio] 27.34 kg/m2 Status: Body surface area Derived from formula 1.6 m2 Status: Body temperature 98 f Status: Comments: Method: Oral Heart Rate 93 /min Status: Comments: Location: L Brachial Artery; Respiratory rate 14 /min Status: Comments: Quality: Normal Results Date Description Value Details Results not documented Plan of Care Name Dates Details Planned Observations Planned Goals not documented Planned Encounters Appointment; ANNIE JUAREZ M.D. On: 27-Oct-2019 10:15 Appointment; LEXIS VILLASENOR M.D. On: 09-Nov-2019 10:00 Interventions Provided Labs/Procedures/Imaging. [facility] - PAP; To Be Done: 20 Oct 2019Discussion/ SummaryToday I performed a Pap smear ordered a urinalysis culture and sensitivity and sent the patient to Dr. Bagley for the management of her prolapse. Instructions Name Dates Details Instructions not documented [...] Encounter Diagnosis: Problem not documented Appointment; [facility] On: 23-Dec-2018 11:00 Encounter Diagnosis: Problem not [...] 13-Oct-2019 9:30 Encounter Diagnosis: Problem not documented Appointment; DEONDRE RAMSAY M.D. On: 20-Oct-2019 10:15 Encounter Diagnosis: Problem not documented
--- OUTSIDE RECORDS SUMMARY | 2019-10-20 15:01 | XMS REPORT | Summary of Care ---
:1980 Author Name Donnell Lutz, Dayana Address [place] [facility] Unavailable , Care Team Providers Name Role Phone DEVENDRA James, DEONDRE Unavailable Unavailable CHRISTOPHE James, ROBERTO Unavailable Unavailable YELITZA James, VERONA Unavailable Unavailable DEVENDRA MASON HI, DEONDRE Unavailable Unavailable Anais MASON, Karon Unavailable Unavailable ANKITA LOCKETT MD, ARG[place] Unavailable Unavailable Juana MASON, Reyna Unavailable Unavailable JANIE MASON [place], IRVING TORRES Unavailable Unavailable LARRY MASON, ANNIE Unavailable Unavailable Trinidad MAOSN, James Unavailable Unavailable YELITZA MASON, VERONA K [...] PAP Date: 20-Oct-2019 CT Abdomen/Pelvis w/wo contrast [id number] Date: 10-Oct-2019 History of Colostomy Completed History [...] (finding) Vital Signs Date Test Result Details [id number] Systolic blood pressure 154 mm[Hg] Status: Comments: Location: LLE; Position: Sitting Diastolic blood pressure 96 mm[Hg] Status: Comments: Location: LLE; Position : Sitting Body height 60 in Status: Weight 140 lb Status: Body mass index (BMI) [Ratio] 27.34 kg/m2 Status: Body surface area Derived from formula 1.6 m2 Status: Body temperature 98.4 f Status: Comments: Method: Oral Heart Rate 93 /min Status: 57-[id number]:41 Systolic blood pressure 132 mm[Hg] Status: Comments: [...] Encounter Diagnosis: Problem not documented Appointment; [facility], [facility] On: 23-Dec-2018 11:00 Encounter Diagnosis: [...]
--- OUTSIDE RECORDS SUMMARY | 2019-10-20 15:01 | XMS REPORT | Summary of Care ---
:1980 Author Name Daryn Lutz Silke Address Unavailable Unavailable , Care Team Providers Name Role Phone DEVENDRA James, DEONDRE Unavailable Unavailable CHRISTOPHE James, ROBERTO Unavailable Unavailable YELITZA James, VERONA Unavailable Unavailable DEVENDRA MASON AL, DEONDRE Unavailable Unavailable Anais MASON, Karon Unavailable Unavailable ANKITA LOCKETT MD, ARG[place] Unavailable Unavailable Juana MASON, Reyna Unavailable Unavailable JANIE MASON AL, IRVING TORRES Unavailable Unavailable LARRY MASON, ANNIE [...] low back pain (724.2, M54.5) Status: Active Medications Name Dates Details amLODIPine Besylate 5 MG Oral Tablet TAKE 1 TABLET BY MOUTH DAILY Quantity: 90 Refills: 0 YELITZA Tolentino.Cici, VERONA Start : 23-Dec-2018 Active Zolpidem Tartrate 5 MG Oral Tablet TAKE 1 TO 2 TABLETS AT BEDTIME NEEDED. Quantity: 60 Refills: 0 YELITZA Tolentino.Noemi., VERONA Start : 23-Dec-2018 Active Ondansetron HCl - 4 MG Oral Tablet TAKE 1 TABLET Every twelve hours Quantity: 30 Refills: 0 CHRISTOPHE James, BlancaULEIKHA Start : 04-Jan-2019 Active Ferrous Sulfate 325 (65 Fe) MG Oral Tablet TAKE 1 TABLET TWICE DAILY WITH MEALS. Quantity: 30 Refills: 3 CHRISTOPHE James, BlancaULEIKELIZABETH Start : 25-Jan-2019 Active Mirena 20 MCG/24HR Intrauterine Intrauterine Device USE DIRECTED. Refills: 0 TORRE M.Noemi., VERONA Start : 12-Sep-2019 Active Ammonium Lactate 12 % External Cream APPLY AND RUB IN A THIN FILM TO AFFECTED AREAS TWICE DAILY.(AM AND PM). Quantity: 1 Refills: 3 TORRE M.D., VERONA Start : 12-Sep-2019 Active 385 GM [...] Procedure Dates Details CT Abdomen/Pelvis w/wo contrast [id number] Date: 10-Oct-2019 History of Colostomy Completed History [...] (finding) Vital Signs Date Test Result Details [id number] Systolic blood pressure 154 mm[Hg] Status: Comments: Location: LLE; Position: Sitting Diastolic blood pressure 96 mm[Hg] Status: Comments: Location: LLE; Position : Sitting Body height 60 in Status: Weight 140 lb Status: Body mass index (BMI) [Ratio] 27.34 kg/m2 Status: Body surface area Derived from formula 1.6 m2 Status: Body temperature 98.4 f Status: Comments: Method: Oral Heart Rate 93 /min Status: 40-Xys-55452:41 Systolic blood pressure 132 mm[Hg] Status: Comments: [...] 9:40 Encounter Diagnosis: Problem not documented Appointment; [facility] On: 23-Dec-2018 11:00 Encounter Diagnosis: Problem [...]
[2019-10-20 16:46] LABS: Urine Blood 2+ (NEG); Urine Glucose NEGATIVE (NEG); Urine Specific Gravity 1.025 (1.005-1.030)
[2019-10-20 16:47] LABS: Urine Protein 2+ (NEG)
[2019-10-20 16:54] LABS: Urine Bacteria LOADED /HPF (<20); Urine Culture Reflex Order REFLEXED
[2019-10-20] MEDS ORDERED: ONDANSETRON 4 MG/2 ML VIAL ONE ×2 (16:57→19:39)
[2019-10-20] MEDS ORDERED: FENTANYL CITR 100 MCG/2 ML ONE ×2 (16:57→17:48)
[2019-10-20] MEDS ORDERED: NA CHLORIDE 0.9% 1,000 ML ONE (16:57)
[2019-10-20 17:03] LABS: Absolute Lymphocytes (CBC) 1.2 K/uL (0.7-4.9); Basophils % 0.2 % (0-1.3); Hematocrit 40.8 % (36.0-45.0); Lymphocytes % 8.6 % (15.3-44.8); MPV 8.1 fL (7.6-11.3); RBC Red Blood Cell Count 4.79 M/uL (3.86-4.86)
[2019-10-20 17:21] LABS: Platelet Estimate DECR; Platelets, Giant PRESENT; Urine White Blood Cell Casts OK
[2019-10-20 17:22] LABS: Blood Morphology Comment NOT SEEN (NOT SEEN)
[2019-10-20 17:27] LABS: ALT/SGPT 34 U/L (12-78); AST/SGOT 18 U/L (15-37); Albumin 4.1 g/dL (3.4-5.0); Alkaline Phosphatase 87 U/L (45-117); BUN Blood Urea Nitrogen 13 mg/dL (7-18); Bicarbonate 26 mmol/L (21-32); Bilirubin Direct 0.2 mg/dL (0-0.2); Bilirubin Total 0.4 mg/dL (0.2-1.0); Glucose Level 95 mg/dL (74-106); Lipase 165 U/L (73-393); Potassium 3.9 mmol/L (3.5-5.1); Protein, Total 8.8 g/dL (6.4-8.2); Sodium Level 138 mmol/L (136-145)
[2019-10-20] MEDS ORDERED: ONDANSETRON 4 MG/2 ML VIAL IV PRN (17:41)
[2019-10-20] MEDS ORDERED: ACETAMINOPHEN 500 MG TAB PO PRN (17:41)
[2019-10-20] MEDS ORDERED: NA CHLORIDE 0.9% 1,000 ML IV SCH (18:00)
[2019-10-20] MEDS ORDERED: CEFTRIAXONE/SWI 1gm 1 GM/10 ML SYR ONE ×2 (18:01→20:21)
[2019-10-20] MEDS ORDERED: HYDROCODONE/APAP 10/325 TAB PO PRN (18:25)
[2019-10-20] MEDS ORDERED: POLYETHYL GLY 3350 17 GM/DOSE PO PRN (18:25)
[2019-10-20 18:31] LABS: Protime INR 1.09
--- NOTE | 2019-10-20 18:31 | P.HP ---
Certification for Inpatient Patient admitted to: Inpatient With expected LOS: >2 Midnights Practitioner: I am a practitioner with admitting privileges, knowledge of patient current condition, hospital course, and medical plan of care. Services: Services provided to patient in accordance with Admission requirements found in Title 42 Section 412.3 of the Code of Federal Regulations Patient History Date of Service: 10/21/19 Reason for admission: Right flank pain History of Present Illness: 39-year-old AAF with past medical history of spina bifida status post BUSINESS PROCESS MODELER shunt , asthma,, DVT, history of recurrent UTI) with the abdominal pain right flank and associated with nausea and vomiting and chills which has been going on for the last 2 days. Denies any chest pain or shortness of breath Allergies morphine Allergy (Intermediate, Verified 06/25/14 20:17) Itching vancomycin Allergy (Mild, Verified 09/30/17 06:35) Itching/Hives/Rash Latex, Natural Rubber Allergy (Verified 03/06/15 22:23) Itching/Hives/Rash Home medications list reviewed: Yes Home Medications: Rivaroxaban [Xarelto] 1 tab PO DAILY #30 tablet 10/08/17 Sertraline [Zoloft*] 100 mg PO DAILY #30 tab 10/08/17 Albuterol Sulfate [Ventolin Hfa] 2 puff IH PRN PRN 10/21/18 Amlodipine Besylate 1 tab PO DAILY 10/21/18 Diphenhydramine HCl [Allergy] 1 tab PO DAILY 10/21/18 Hydrocodone 10/APAP 325 [Clarks 10/325*] 1 tab PO Q4HR PRN 10/21/18 Lactose-Reduced Food [Boost] 237 ml PO DAILY 10/21/18 Ondansetron [Zofran (Odt)*] 3 cap.sr PO Q4HR PRN 10/21/18 Polyethylene Glycol 3350 [Miralax] 17 gm PO DAILY PRN 10/21/18 Zolpidem Tartrate 1 tab PO BEDTIME 10/21/18 Penicillin V Potassium 500 mg PO DAILY #14 tablet 10/24/18 - Past Medical/Surgical History Diabetic: No Past Medical History: Reviewed- Non-Contributory -: SPINA BIFIDA -: BUSINESS PROCESS MODELER SHUNT- LEFT LUNG -: DEPRESSION -: ARTHRITIS -: HTN -: SEIZURES DISORDER -: KIDNEY STONES -: ASTHMA -: ABDOMINAL HERNIA -: UTI -: PRESSURE ULCERS -: HX OF BLOOD CLOT Past Surgical History: Reviewed- Non-Contributory -: COLOSTOMY -: FOOT SX -: VAGINA RECONSRUCTION -: ILEOSTOMY -: SKIN GRAFT -: BLOOD CLOT FILTER IN ABD -: UROSTOMY -: BUSINESS PROCESS MODELER SHUNT REPLACED X2 - Family History Family History: Reviewed- Non-Contributory - Family History Sister -: Diabetes Father -: Heart disease, Hypertension, Other (see notes) Notes: HIGH CHOLESTEROL, NE Mother -: Heart disease, Hypertension, Cancer Notes: CHF, PANCREATIC CANCER - Social History Smoking Status: Never smoker Alcohol use: No CD- Drugs: No Caffeine use: Yes Review of Systems 10-point ROS is otherwise unremarkable Physical Examination - Vital Signs Temperature: 98.2 F Blood Pressure: 122/70 Pulse: 88 Respirations: 18 - Physical Exam General: Alert, In no apparent distress HEENT: Atraumatic, Normocephalic Neck: Supple Respiratory: Clear to auscultation bilaterally, Normal air movement Cardiovascular: Normal pulses, Regular rate/rhythm Capillary refill: <2 Seconds Gastrointestinal: Soft and benign, Other (Right Flank tenderness ), Tenderness Musculoskeletal: No clubbing, No swelling Integumentary: No rashes Neurological: Normal speech, Abnormal strength, Abnormal tone Lymphatics: No axilla or inguinal lymphadenopathy Urinary: Other (No bladder distention) External genitalia: Deferred Rectal: Deferred - Studies Laboratory Data (last 24 hrs) 10/20/19 16:46: Creatinine 0.85 10/20/19 16:46: WBC 14.1 H, Hgb 12.8, Hct 40.8, Plt Count 13 L* 10/20/19 16:46: Sodium 138, Potassium 3.9, BUN 13, Creatinine 0.82, Glucose 95, Total Bilirubin 0.4, AST 18, ALT 34, Alkaline Phosphatase 87, Lipase 165 Assessment and Plan - Problems (Diagnosis) (1) Thrombocytopenia Status: Acute (2) Urinary tract infectious disease Onset Date: 06/26/14 Status: Active (3) Chronic anticoagulation Status: Chronic (4) Depression Status: Chronic Qualifiers: Depression Type: unspecified Qualified Code(s): F32.9 - Major depressive disorder, single episode, unspecified (5) Hypertension Status: Chronic Qualifiers: Hypertension type: essential hypertension Qualified Code(s): I10 - Essential (primary) hypertension (6) Spina bifida Onset Date: 09/30/17 Status: Chronic Qualifiers: Presence of hydrocephalus: unspecified hydrocephalus presence - Plan Will start on antibiotics Will get a CT of the abdomen pelvis Cultures Monitor CBC daily Getting a platelet transfusion No overt bleeding noted Home medications and titrate as needed CT abdomen pelvis noted found to have moderate hydronephrosis with ureteric stone As we do not have a urology coverage this weekend Will transfer the patient for higher level of care for possible urology intervention - Advance Directives Does patient have a Living Will: Yes Does patient have a Durable POA for Healthcare: Yes Time Spent Managing Pts Care (In Minutes): 45
--- NOTE | 2019-10-20 19:03 | RAD REPORT ---
EXAM DESCRIPTION: CT - Stone Protocol - 10/20/2019 6:45 pm CLINICAL HISTORY: Abdominal pain. COMPARISON: July 2019 TECHNIQUE: Computed axial tomography of the abdomen pelvis was obtained without oral or IV contrast. Lack of IV and oral contrast limits evaluation of solid organs, bowel, and vessels. Coronal reformat alda images were obtained and reviewed. All CT scans are performed using dose optimization technique as appropriate and may include automated exposure control or mA/KV adjustment according to patient size. FINDINGS: The left hydronephrosis has resolved. Left ureteral calculus is not seen. Right renal calculi. Mild to moderate right hydronephrosis. 12 millimeter calculus mid left ureter. 1 0 millimeter calculus proximal right ureter Moderate left pleural effusion without significant change. A ventriculopleural catheter in place The liver, spleen, pancreas and adrenals appear grossly normal Left lower quadrant colostomy. IUD within the uterus. Fibroids are present. Decubitus ulcer involves the posterior soft tissue of the lower pelvis. Laxity of the anterior abdomi nal wall. Spina bifida noted. IMPRESSION: Two calculi within the right ureter resulting in moderate right hydronephrosis
--- NOTE | 2019-10-20 19:33 | EDPHYS ---
Physician Documentation [facility] Name: Leila Aquino Age: 39 yrs Sex: Female : 1980 Arrival Date: 10/20/2019 Time: 15:12 Bed 23 Private MD: ED Physician HPI: 10/20 15:35 This 39 yrs old Black Female presents to ER via EMS with complaints of Flank Pain. cp 15:35 The patient complains of pain in the right flank. cp 15:35 The pain radiates to the abdomen. Onset: The symptoms/episode began/occurred this cp morning. Associated signs and symptoms: Pertinent positives: nausea, Pertinent negatives: diarrhea, fever, vomiting. Severity of pain: in the emergency department the pain is unchanged despite home interventions. The patient has experienced similar episodes in the past, multiple times. POSTING CLERK: 20:09 LMP N/A - control method ls4 Historical: - Allergies: 15:23 chloradate; ls4 15:23 Latex, Natural Rubber; ls4 15:23 Morphine; ls4 15:23 Vancomycin; ls4 - PMHx: 15:23 ADD/ADHD; Anemia; UTI; Upper extremity DVT- L arm; spina bifida; Asthma; DVT; ls4 Hypertension; Sepsis; Kidney stones; Osteomyelitis-L foot; osteomyolitis L foot; - Immunization history:: Adult Immunizations up to date, Last tetanus immunization: up to date Flu vaccine is up to date. - Coronavirus screen:: The patient has NOT traveled to [place] in the past 14 days. Proceed with normal triage process as indicated. - Social history:: Smoking status: Patient denies any tobacco usage or history of. - Ebola Screening: : No symptoms or risks identified at this time. ROS: 15:40 Constitutional: Negative for body aches, chills, fever, poor PO intake. cp 15:40 Eyes: Negative for injury, pain, redness, and discharge. cp 15:40 ENT: Negative for drainage from ear(s), ear pain, sore throat, difficulty swallowing, difficulty handling secretions. 15:40 Cardiovascular: Negative for chest pain, palpitations. 15:40 Respiratory: Negative for cough, shortness of breath, wheezing. 15:40 Abdomen/GI: Positive for abdominal pain, nausea, Negative for vomiting, black/tarry stool, blood in stool. 15:40 Skin: Negative for rash. 15:40 Neuro: Negative for altered mental status, headache, weakness. 15:40 All other systems are negative. Exam: 15:45 Constitutional: The patient appears in no acute distress, alert, awake, non-toxic, well cp developed, well nourished. 15:45 Head/Face: Normocephalic, atraumatic. cp 15:45 Eyes: Periorbital structures: appear normal, Conjunctiva: normal, no exudate, no injection, Sclera: no appreciated abnormality, Lids and lashes: appear normal, bilaterally. 15:45 ENT: External ear(s): are unremarkable, Nose: is normal, Mouth: Lips: moist, Oral mucosa: pink and intact, moist, Posterior pharynx: is normal, airway is patent, no erythema, no exudate. 15:45 Neck: ROM/movement: is normal, is supple, without pain, no range of motions limitations, no nuchal rigidity. 15:45 Chest/axilla: Inspection: normal, Palpation: is normal, no crepitus, no tenderness. 15:45 Cardiovascular: Rate: normal, Rhythm: regular. 15:45 Respiratory: the patient does not display signs of respiratory distress, Respirations: normal, no use of accessory muscles, no retractions, no splinting, no tachypnea, labored breathing, is not present, Breath sounds: are clear throughout, no decreased breath sounds. 15:45 Abdomen/GI: Inspection: distension, that is moderate, scar(s), are noted in the abdomen cp diffusely, Bowel sounds: active, all quadrants, Palpation: soft, in all quadrants, moderate abdominal tenderness, in the posterior aspect of right lateral abdomen, anterior aspect of right lateral abdomen and right lower quadrant, rebound tenderness, is not appreciated, voluntary guarding, is elicited in the posterior aspect of right lateral abdomen, anterior aspect of right lateral abdomen and right lower quadrant. 15:45 Neuro: Orientation: to person, place \T\ time. Mentation: is normal. cp Vital Signs: 15:23 BP 133 / 91; Pulse 80; Resp 16; Temp 98.7(O); Pulse Ox 98% on R/A; Weight 63.5 kg; ls4 Height 5 ft. 0 in. (152.40 cm); Pain 10/10; 16:15 BP 144 / 92; Pulse 76; Resp 16; Temp 98.7(O); Pulse Ox 99% on R/A; Pain 7/10; ls4 17:15 BP 123 / 77; Pulse 82; Resp 14; Temp 98.9(O); Pulse Ox 99% on R/A; Pain 6/10; ls4 18:15 BP 132 / 78; Pulse 88; Resp 16; Temp 99.1(O); Pulse Ox 99% on R/A; Pain 7/10; ls4 19:00 BP 137 / 87; Pulse 110; Resp 16; Temp 99.0(O); Pulse Ox 99% on R/A; Pain 4/10; ls4 20:09 BP 124 / 72; Pulse 139; Resp 16; Temp 103.1(O); Pulse Ox 99% on R/A; Pain 3/10; ls4 21:37 BP 112 / 72; Pulse 110; Resp 26; Temp 99.9; Pulse Ox 99% on R/A; Pain 7/10; ls4 15:23 Body Mass Index 27.34 (63.50 kg, 152.40 cm) ls4 MDM: 15:21 Patient medically screened. cp 17:40 Physician consultation: Dheeraj Nguyen MD was called at 17:41, was contacted at 17:41, regarding admission, to the medical/surgical unit. 19:30 Data reviewed: vital signs, nurses notes, lab test result(s), radiologic studies, CT cp scan, I have discussed the patient's presentation/case with the attending Emergency Department Physician;. 10/20 15:27 Order name: Basic Metabolic Panel; Complete Time: 17: cp 10/20 15:27 Order name: CBC with Diff; Complete Time: 17: cp 10/20 17:31 Interpretation: Normal except: WBC 14.1; MCH 26.8; MCHC 31.4; PLT 13; BETO% 86.5; LYM% cp 8.6; NEUT A 12.2. 10/20 15:27 Order name: Creatinine for Radiology; Complete Time: 17:31 cp 10/20 15:27 Order name: Hepatic Function; Complete Time: 17: cp 10/20 17:35 Interpretation: Normal except: TP 8.8; GLOB 4.7; A/G 0.9. cp 10/20 15:27 Order name: Lipase; Complete Time: 17:31 cp 10/20 15:27 Order name: Urine Microscopic Only; Complete Time: 17:03 cp 10/20 17:03 Interpretation: Normal except: UWBC >50; URBC 10-20; UBACT LOADED. cp 10/20 15:27 Order name: Lactate; Complete Time: 17:31 cp 10/20 15:27 Order name: Procalcitonin; Complete Time: 17:03 cp 10/20 16:43 Order name: Urine Dipstick--Ancillary (enter results); Complete Time: 17:03 [facility] 10/20 17:04 Interpretation: Normal except: UKET 1+; UBLD 2+; UPROT 2+; U NIT POSITIVE; UESTR 1+. 10/20 16:43 Order name: Urine --Ancillary (enter results); Complete Time: 17:03 [facility] 10/20 16:56 Order name: Urine Culture [facility] 10/20 17:22 Order name: CBC Smear Scan; Complete Time: 17:31 [facility] 10/20 17:36 Order name: Type And Screen 10/20 17:41 Order name: PT-INR 10/20 17:41 Order name: Ptt, Activated 10/20 17:50 Order name: Bb Add On [facility] 10/20 18:01 Order name: CT Stone Protocol 10/20 18:34 Order name: Protime (+INR); Complete Time: 18:42 EDMS 10/20 18:42 Interpretation: Abnormal: PT 12.8. cp 10/20 18:34 Order name: PTT, Activated Partial Thromb; Complete Time: 18:42 EDNM 10/20 18:42 Interpretation: Within normal limits: PTT 32.1. cp 10/20 19:19 Order name: Type and Screen [facility] 10/20 19:38 Order name: CT; Complete Time: 21:01 EDMS 10/20 20:06 Order name: Flu ls4 10/20 20:45 Order name: Influenza Screen (A ; Complete Time: 21:01 EDMS 10/20 21:04 Order name: Blood Culture Adult (2) cp 10/20 21:04 Order name: Lactate cp 10/20 21:43 Order name: Lactate; Complete Time: 21:44 EDMS 10/20 21:44 Interpretation: Within normal limits: LAC 1.7. cp 10/20 15:27 Order name: IV Saline Lock; Complete Time: 16:53 cp 10/20 15:27 Order name: Labs collected and sent; Complete Time: 18:43 cp 10/20 15:27 Order name: Urine Dipstick-Ancillary (obtain specimen); Complete Time: 16:37 cp 10/20 15:27 Order name: Urine Test (obtain specimen); Complete Time: 16:37 cp 10/20 16:35 Order name: Labs - recollect needed: recollect all blood; Complete Time: 16:53 dh4 Administered Medications: 17:04 Drug: NS 0.9% 500 ml Route: IV; Rate: bolus; Site: left antecubital; ls4 17:04 Drug: NS 0.9% 500 ml Route: IV; Rate: 125 ml/hr; Site: left antecubital; ls4 17:04 Drug: fentaNYL (PF) 25 mcg Route: IVP; Site: left antecubital; ls4 17:25 Follow up: Response: No adverse reaction; Pain is decreased ls4 17:05 Drug: Zofran 4 mg Route: IVP; Site: left antecubital; ls4 17:35 Follow up: Response: No adverse reaction; Marked relief of symptoms ls4 17:42 Drug: fentaNYL (PF) 25 mcg Route: IVP; Site: left antecubital; ls4 18:11 Follow up: Response: No adverse reaction; Pain is decreased ls4 17:58 Drug: Rocephin - (cefTRIAXone) 1 grams Route: IVPB; Infused Over: 10 mins; Site: left ls4 antecubital; 19:41 Drug: Dilaudid 0.5 mg Route: IVP; Site: left antecubital; ls4 20:25 Follow up: Response: No adverse reaction; Marked relief of symptoms; Pain is decreased ls4 19:41 Drug: Zofran 4 mg Route: IVP; Site: left antecubital; ls4 20:25 Follow up: Response: No adverse reaction ls4 20:00 Drug: NS 0.9% (30 ml/kg) 1900 ml Route: IV; Rate: bolus; Site: left antecubital; ls4 22:00 Follow up: IV Status: Completed infusion; IV Intake: 1900ml ls4 20:06 Drug: Rocephin 1 grams Route: IV; Rate: bolus; Site: left antecubital; ls4 20:16 Follow up: Response: No adverse reaction; IV Status: Completed infusion; IV Intake: [id number] 20:06 Drug: Tylenol 1000 mg Route: PO; ls4 20:27 Follow up: Response: No adverse reaction ls4 20:32 Drug: Tobramycin 300 mg Route: IVPB; Infused Over: 30 mins; Site: left antecubital; ls4 21:02 Follow up: Response: No adverse reaction; IV Intake: 100ml ls4 22:20 Drug: Dilaudid 0.5 mg Route: IVP; Site: left antecubital; ls4 22:30 Follow up: Response: No adverse reaction ls4 Disposition: 10/20/19 19:32 Transfer ordered to [facility]. Diagnosis are Thrombocytopenia, unspecified, Calculus of ureter - right. - Reason for transfer: Higher level of care. - Accepting physician is DR Glass. - Condition is Stable. - Problem is new. - Symptoms are unchanged. Addendum: 10/23/2019 08:21 Co-signature as Attending Physician, Dakotah Reid MD I agree with the assessment and k dr plan of care. Signatures: Dispatcher [employer] EDMS Dakotah Reid MD MD [facility] Samantha Meza RN RN Burton Mcqueen PA PA cp Stewart, Lisa, RAJNI RN 4 Dariusz Bee [facility] Corrections: (The following items were deleted from the chart) 10/20 17:31 17:31 Normal except: WBC 14.1; MCH 26.8; MCHC 31.4; PLT 13; BETO% 86.5; LYM% 8.6. cp cp 20:04 19:32 10/20/2019 19:32 Transfer ordered to [facility]. Diagnosis is cp Thrombocytopenia, unspecified; Calculus of ureter - right. Reason for transfer: Higher level of care. Accepting physician is Doctor. Condition is Stable. Problem is new. Symptoms are unchanged. cp 22:35 20:04 10/20/2019 19:32 Transfer ordered to [facility]. Diagnosis is ls4 Thrombocytopenia, unspecified; Calculus of ureter - right. Reason for transfer: Higher level of care. Accepting physician is DR Glass. Condition is Stable. Problem is new. Symptoms are unchanged. cp 02/22 01:52 10/20 22:35 10/20/2019 19:32 Transfer ordered to [facility]. Diagnosis is fc Thrombocytopenia, unspecified; Calculus of ureter - right. Reason for transfer: Higher level of care. Accepting physician is DR Glass. Condition is Stable. Problem is new. Symptoms are unchanged. ls4
--- NOTE | 2019-10-20 19:33 | ER ---
Nurse's Notes [facility] Name: Leila Aquino Age: 39 yrs Sex: Female : 1980 Arrival Date: 10/20/2019 Time: 15:12 Bed 23 Private MD: Diagnosis: Thrombocytopenia, unspecified;Calculus of ureter-right Presentation: 10/20 15:13 Presenting complaint: Patient states: right flank pain that radiates to right lower ls4 abdomen. started around 9 am this morning. Transition of care: patient was not received from another setting of care. Onset of symptoms was October 20, 2019 at 09:00. Risk Assessment: Do you want to hurt yourself or someone else? Patient reports no desire to harm self or others. Initial Sepsis Screen: Does the patient meet any 2 criteria? No. Patient's initial sepsis screen is negative. Does the patient have a suspected source of infection? No. Patient's initial sepsis screen is negative. Care prior to arrival: None. 15:13 Method Of Arrival: EMS: [facility] ls4 15:13 Acuity: PAYTON 3 ls4 Triage Assessment: 15:23 General: Appears in no apparent distress. uncomfortable, Behavior is calm, cooperative. ls4 Pain: Complains of pain in right low back Pain radiates to right upper quadrant and right lower quadrant Pain currently is 10 out of 10 on a pain scale. Quality of pain is described as sharp, shooting, stabbing, Pain began suddenly, Is continuous, Noted to be grimacing, guarding, resistant to movement, Also complains of nausea. Neuro: No deficits noted. Cardiovascular: Capillary refill < 3 seconds Patient's skin is warm and dry. Rhythm is regular. Respiratory: Airway is patent Respiratory effort is even, unlabored, Respiratory pattern is regular, Breath sounds are clear bilaterally. GI: Abdomen is tender to palpation in right upper quadrant and right lower quadrant. GI: Colostomy site is clean and dry. Ostomy appliance is intact. Bowel sounds present X 4 quads. : suprapubic catheter in place to gravity drainage. [employer]: 20:09 LMP N/A - control method ls4 Historical: - Allergies: 15:23 chloradate; ls4 15:23 Latex, Natural Rubber; ls4 15:23 Morphine; ls4 15:23 Vancomycin; ls4 - PMHx: 15:23 ADD/ADHD; Anemia; UTI; Upper extremity DVT- L arm; spina bifida; Asthma; DVT; ls4 Hypertension; Sepsis; Kidney stones; Osteomyelitis-L foot; osteomyolitis L foot; - Immunization history:: Adult Immunizations up to date, Last tetanus immunization: up to date Flu vaccine is up to date. - Coronavirus screen:: The patient has NOT traveled to [place] in the past 14 days. Proceed with normal triage process as indicated. - Social history:: Smoking status: Patient denies any tobacco usage or history of. - Ebola Screening: : No symptoms or risks identified at this time. Screenin:15 Abuse screen: Denies threats or abuse. Denies injuries from another. Nutritional ls4 screening: No deficits noted. Tuberculosis screening: No symptoms or risk factors identified. Fall Risk None identified. Assessment: 16:12 Reassessment: No changes from previously documented assessment. Patient and/or family ls4 updated on plan of care and expected duration. Pain level reassessed. Patient is alert, oriented x 3, equal unlabored respirations, skin warm/dry/pink. 2 failed attempts at IV. Javid URBAN to use ultrasound for access. medications delayed. 21:30 Reassessment: Patient and/or family updated on plan of care and expected duration. Pain ls4 level reassessed. Patient is alert, oriented x 3, equal unlabored respirations, skin warm/dry/pink. TRANSFUSION CONSENT SIGNED. PLATELET TRANSFUSION STARTED. REPORT CALLED TO YOLANDA JAMES RN. Vital Signs: 15:23 BP 133 / 91; Pulse 80; Resp 16; Temp 98.7(O); Pulse Ox 98% on R/A; Weight 63.5 kg; ls4 Height 5 ft. 0 in. (152.40 cm); Pain 10/10; 16:15 BP 144 / 92; Pulse 76; Resp 16; Temp 98.7(O); Pulse Ox 99% on R/A; Pain 7/10; ls4 17:15 BP 123 / 77; Pulse 82; Resp 14; Temp 98.9(O); Pulse Ox 99% on R/A; Pain 6/10; ls4 18:15 BP 132 / 78; Pulse 88; Resp 16; Temp 99.1(O); Pulse Ox 99% on R/A; Pain 7/10; ls4 19:00 BP 137 / 87; Pulse 110; Resp 16; Temp 99.0(O); Pulse Ox 99% on R/A; Pain 4/10; ls4 20:09 BP 124 / 72; Pulse 139; Resp 16; Temp 103.1(O); Pulse Ox 99% on R/A; Pain 3/10; ls4 21:37 BP 112 / 72; Pulse 110; Resp 26; Temp 99.9; Pulse Ox 99% on R/A; Pain 7/10; ls4 15:23 Body Mass Index 27.34 (63.50 kg, 152.40 cm) ls4 ED Course: 15:12 Patient arrived in ED. ls4 15:15 No provider procedures requiring assistance completed. ls4 15:15 Patient has correct armband on for positive identification. Bed in low position. Call ls4 light in reach. Side rails up X 1. personnel monitor on. Pulse ox on. NIBP on. Warm blanket given. Pillow given. 15:15 Arm band placed on. ls4 15:17 Triage completed. ls4 15:17 Burton Mcqueen PA is PHCP. cp 15:17 Dakotah Reid MD is Attending Physician. cp 15:44 Jadyn Mack, RN is Primary Nurse. ls4 16:15 Initial lab(s) drawn, by me, sent to lab. Missed attempt(s): 24 gauge in right hand. sg Bleeding controlled, band aid applied, catheter tip intact. 16:45 Lab(s) recollected, by me, sent to lab. Inserted PowerGlide Pro Midline Catheter, 18 G sg 10 CM inserted, successful x1 attempt via Ultrasound, pt tolerated well. 17:07 Urine Culture Sent. ls4 18:43 Bb Add On Sent. ls4 18:43 Ptt, Activated Sent. ls4 18:43 PT-INR Sent. ls4 18:43 Type And Screen Sent. ls4 20:27 Flu Sent. ls4 21:37 Lactate Sent. ls4 22:33 Patient transferred, IV remains in place. ls4 10/21 01:48 Attending Physician role handed off by Dakotah Reid MD ls4 01:48 Primary Nurse role handed off by Jadyn Mack, RN ls4 Administered Medications: 10/20 17:04 Drug: NS 0.9% 500 ml Route: IV; Rate: bolus; Site: left antecubital; ls4 17:04 Drug: NS 0.9% 500 ml Route: IV; Rate: 125 ml/hr; Site: left antecubital; ls4 17:04 Drug: fentaNYL (PF) 25 mcg Route: IVP; Site: left antecubital; ls4 17:25 Follow up: Response: No adverse reaction; Pain is decreased ls4 17:05 Drug: Zofran 4 mg Route: IVP; Site: left antecubital; ls4 17:35 Follow up: Response: No adverse reaction; Marked relief of symptoms ls4 17:42 Drug: fentaNYL (PF) 25 mcg Route: IVP; Site: left antecubital; ls4 18:11 Follow up: Response: No adverse reaction; Pain is decreased ls4 17:58 Drug: Rocephin - (cefTRIAXone) 1 grams Route: IVPB; Infused Over: 10 mins; Site: left ls4 antecubital; 19:41 Drug: Dilaudid 0.5 mg Route: IVP; Site: left antecubital; ls4 20:25 Follow up: Response: No adverse reaction; Marked relief of symptoms; Pain is decreased ls4 19:41 Drug: Zofran 4 mg Route: IVP; Site: left antecubital; ls4 20:25 Follow up: Response: No adverse reaction ls4 20:00 Drug: NS 0.9% (30 ml/kg) 1900 ml Route: IV; Rate: bolus; Site: left antecubital; ls4 22:00 Follow up: IV Status: Completed infusion; IV Intake: 1900ml ls4 20:06 Drug: Rocephin 1 grams Route: IV; Rate: bolus; Site: left antecubital; ls4 20:16 Follow up: Response: No adverse reaction; IV Status: Completed infusion; IV Intake: 35sgdt0 20:06 Drug: Tylenol 1000 mg Route: PO; ls4 20:27 Follow up: Response: No adverse reaction ls4 20:32 Drug: Tobramycin 300 mg Route: IVPB; Infused Over: 30 mins; Site: left antecubital; ls4 21:02 Follow up: Response: No adverse reaction; IV Intake: 100ml ls4 22:20 Drug: Dilaudid 0.5 mg Route: IVP; Site: left antecubital; ls4 22:30 Follow up: Response: No adverse reaction ls4 Intake: 20:16 IV: 10ml; Total: 10ml. ls4 21:02 IV: 100ml; Total: 110ml. ls4 22:00 IV: 1900ml; Total: 2010ml. ls4 Outcome: 19:32 ER care complete, transfer ordered by MD. cp 22:32 Transferred by ground EMS to [facility], Transfer form completed. X-rays sent ls4 w/ patient. 22:32 Condition: stable 22:34 Transferred Note: REPORT CALLED TO [facility] URB[facility]. ls4 22:34 Instructed on the need for transfer. 22:35 Patient left the ED. ls4 10/21 01:52 Patient left the ED. fc Signatures: Javid Navarrete, RN RN Samantha Meza RN RN Burton Mcqueen PA PA cp Stewart, Lisa RN RN ls4 Corrections: (The following items were deleted from the chart) 10/20 22:35 22:32 Discharge instructions given to patient, family, Instructed on discharge ls4 instructions, follow up and referral plans. medication usage, safety practices, Demonstrated understanding of instructions, follow-up care, medications, ls4
[2019-10-20] MEDS ORDERED: HYDROMORPHONE HCL 2 MG/ML inj ONE ×2 (19:39→22:17)
[2019-10-20] MEDS ORDERED: ACETAMINOPHEN 325 MG/SUPP PR ONE (20:00)
[2019-10-20] MEDS ORDERED: NA CHLORIDE 0.9% 2,000 ML ONE (20:00)
[2019-10-20] MEDS ORDERED: TOBRAMYCIN SULF 80 MG/2 ML VIAL ONE (20:34)
[2019-10-20] MEDS ORDERED: NA CHLORIDE 0.9% 100 ML IV ONE (20:34)
[2019-10-20] MEDS ORDERED: ZOLPIDEM TARTRATE 5 MG TABLET PO SCH (21:00)
[2019-10-20 23:59] VITALS: O2SAT 99
[2019-10-21] MEDS ORDERED: SERTRALINE HCL 100 MG TAB PO SCH (09:00)
[2019-10-21] MEDS ORDERED: [UNRECOGNIZED DRUG - REMARK] PO SCH (09:00)
[2019-10-21] MEDS ORDERED: CEFTRIAXONE/SWI 1gm 1 GM/10 ML SYR IVP SCH (09:00)
[2019-10-21] MEDS ORDERED: LACTOSE REDUCED FOOD PO SCH ×2 (09:00)
[2019-10-21] MEDS ORDERED: AMLODIPINE 5 MG TAB PO SCH (09:00)
[2019-10-21] MEDS ORDERED: DIPHENHYDRAMINE 25 MG TAB/CAP PO SCH (09:00)
[2019-10-21 12:27] VITALS: BP 122/70; TEMP 98.2
[2019-10-21] MEDS ORDERED: RIVAROXABAN 20 MG TABLET PO SCH (17:00)
== END 2019-10-21 01:52 | disposition short-term general hospital (02) ==
LOC: ER 14:55 → ERHOLD 17:42 → UNDOADMIN 17:42 → ER 22:35
DX: N20.1 Calculus of ureter (principal); D69.6 Thrombocytopenia, unspecified; I10 Essential (primary) hypertension; Z88.3 Allergy status to other anti-infective agents; Z88.5 Allergy status to narcotic agent; Z88.8 Allergy status to other drugs, medicaments and biological substances; Z91.040 Latex allergy status
CPT/HCPCS: 96365; 87040 ×2; 87088; 85025; 87086; 80048; 36415; 86900; 86850; 87205 ×3; 81025; 85610; 86901; 80076; 83605 ×2; 85730; 87077 ×4; 87186 ×4; 83690; 84145; 87804 ×2; 76377; 74176; 96375; 99285; 96366; J1170 ×2; J3010 ×2; J0696 ×2; P9035; J7040; J7030; J3260; J2405 ×2; 81003; 81015

== ENCOUNTER 2020-01-23 15:53 | Emergency (ER) | payer OTHER ==
--- OUTSIDE RECORDS SUMMARY | 2020-01-23 15:56 | XMS REPORT | Clinical Summary ---
:1980 Author Organization [facility] Address [address] [place] [address] Care Team Providers Name Role Phone Luna Lowery Primary Care Provider Allergies Active Allergy Reactions Severity Noted Date Comments Latex 06/10/2018 Morphine Other (See Comments) 06/10/2018 Halluci nations Vancomycin Analogues Itching 06/10/2018 Medications Medication Sig Dispensed Refills Start Date End Date Status amLODIPine (NORVASC) 5 Take 5 mg by 0 Active MG tablet mouth daily. rivaroxaban (XARELTO) 20 Take by mouth 0 Active mg Tab tablet daily with dinner. albuterol HFA (VENTOLIN Inhale 1 puff 0 Active HFA) 90 mcg/actuation by mouth via inhaler inhaler every 6 (six) hours as needed for Wheezing. acetaminophen (TYLENOL) Take 650 mg by 0 Active 325 MG tablet mouth every 6 (six) hours as needed for Pain. polyethylene glycol Take 17 g by 0 Active (GLYCOLAX) 17 gram mouth daily. packet sertraline (ZOLOFT) 100 Take 100 mg by 0 Active MG tablet mouth nightly. zolpidem (AMBIEN) 5 MG Take 5 mg by 0 Active tablet mouth every night as needed for Insomnia. ondansetron (ZOFRAN) 4 Take 1 tablet 30 tablet 0 06/13/2018 Active MG tablet (4 mg total) by mouth 3 (three) times daily as needed for Nausea. levalbuterol (XOPENEX EVERY 4 HOURS 0 07/28/2013 Active HFA) 45 mcg/actuation NEEDED inhaler diphenhydrAMINE Take 25 mg by 0 Active (BENADRYL) 25 mg capsule mouth every 6 (six) hours as needed for Itching or Allergies. aluminum-magnesium Take 10 mLs by 0 Active hydroxide-simethicone mouth 4 (four) (MAALOX PLUS) suspension times daily 200-200-20 mg/5 mL before meals and nightly. aspirin 325 MG tablet Take 325 mg by 0 Active mouth daily. HYDROcodone-acetaminophe Take 1 tablet 0 Active n (NORCO 10-325) 10-325 by mouth every mg per tablet 4 (four) hours as needed for Pain. tamsulosin (FLOMAX) 0.4 Take 1 capsule 30 capsule 0 06/29/2018 Active mg Cap 24 hr capsule (0.4 mg total) by mouth daily. Active Problems Problem Noted Date History of MDR Enterobacter cloacae infection 06/25/20 18 Right ureteral stone 06/11/2018 Urinary tract obstruction due to kidney stone 06/11/20 18 Acute cystitis without hematuria 06/10/2018 Hydronephrosis 06/10/2018 Spina bifida of thoracolumbar region with hydrocephalu s 06/10/2018 Social History Tobacco Use Types Packs/Day Years Used Date Never Smoker Smokeless Tobacco: Never Used Sex Assigned at Date Recorded Not on file Job Start Date Occupation Industry Not on file Not on file Not on file Travel History Travel Start Travel End No recent travel history available. Last Filed Vital Signs Not on file Plan of Treatment Not on file Implants Implanted Type Area Spray Unit Feeder Device Shelf Model / Identifier Expiration Date Ser ial / Lot Matrix Floseal Hemo W/O [id number] - [id number] Cement/Fi NAVARRO:[id number] / Implanted: Qty: 1 on 06/28/2018 by Hao Welch MD ller/Ramila / kalpana [id number] Results Not on fileafter 01/22/2019 Insurance Payer Benefit Plan / Group Subscriber ID Type Phone A ddress MEDICARE MEDICARE A B xxxxxxxxxxx Medicare MEDICAID - MEDICAID MEDICAID [employer] xxxxxxxxx Medicaid MGD CARE Non-Contracted Advance Directives For more information, please contact:[facility] [place], [place] [phone] Code Status Date Activated Date Inactivated Comments Full Code 06/24/2018 12:08 PM This code status was determined by: Patient Full Code 06/10/2018 10:09 PM 06/13/2018 4:34 PM This code status was determined by: Patient
--- OUTSIDE RECORDS SUMMARY | 2020-01-23 15:59 | XMS REPORT ---
:1980 Author Organization [facility] t Address [address] [place] [address] [address]. [address] [place] [address] Care Team Providers Name Role Phone LARRY Attending Clinician Unavailable YELITZA Attending Clinician Unavailable DEVENDRA Attending Clinician Unavailable GENEVIEVE Attending Clinician Unavailable CHRISTOPHE Attending Clinician Unavailable HERMILO Attending Clinician Unavailable DIALLO PROVIDER Attending Clinician Unavailable MELY Attending Clinician Unavailable WAQAR LOMBARDI Attending Clinician Unavailable MABEL VERMA Attending Clinician Unavailable DEVANTE Attending Clinician Unavailable TERRY Attending Clinician Unavailable WAQAR LOMBARDI Admitting Clinician Unavailable MABEL VERMA Admitting Clinician Unavailable Problems Condition Condition Condition Status Onset Resolution Last Treating Co mments Source Name Details Category Date Date Treatment Clinician Date History of History of Problem Resolve Univers anemia anemia d ity of [place] Physici ans History of History of Problem Resolve Univers Anxiety Anxiety d ity of and and [place] depression depression Ph ysici ans History of History of Problem Resolve Univers asthma asthma d ity of [place] Physici ans History of History of Problem Resolve Univers Bacterial Bacterial d ity of vaginosis vaginosis [place]ici ans History of History of Problem Resolve Univers deep deep d ity of venous venous [place] thrombosis thrombosis Ph ysici ans History of History of Problem Resolve Univers Excessive Excessive d ity of bleeding bleeding [place] [facility] Problem Active Unive rs discharge discharge [place] of follow[place]up [place]up [place] ans History of History of Problem Resolve Univers History of History of d it y of ileal ileal [place] conduit conduit Physici ans History of History of Problem Resolve Univers hypertensi hypertensi d it y of on on [place] Physici ans History of History of Problem Resolve Univers kidney kidney d ity of stones stones [place] Physici ans History of History of Problem Resolve Univers Preop Preop d it[place] of examinatio examinatio [place] n n Physici ans History of History of Problem Resolve Univers pyelonephr pyelonephr d it y of itis itis [place] Physici ans Nephrolith Nephrolith Problem Active U nivers iasis iasis ity of [place] Physici ans History of History of Problem Resolve Univers Spina 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 [place] lumbar lumbar Physici spine spine ans History of History of Problem Resolve Univers urinary urinary d ity of tract tract [place] infection infection Phys ici ans Irregular Irregular Problem Active Uni vers bleeding bleeding ity of [place] Physici ans Obstructio Obstructio Problem Active U nivers n of n of [place] of nephrostom nephrostom [place] y tube y tube Physici ans Encounter Encounter Problem Active Uni vers for for it[place] of postoperat postoperat [place] care [place] care Physic i ans Obstructio Obstructio Problem Active U nivers n of right n of right it y of ureter ureter [place] Physici ans Sepsis Sepsis Problem Active Univers ity of [place] Physici ans Pleural Pleural Problem Active Univers effusion effusion ity of [place] Physici ans Insomnia Insomnia Problem Active Unive rs ity of [place] Physici ans Essential Essential Problem Active Uni vers hypertensi hypertensi it y of on, benign on, benign [place] Complicate Complicate Problem Active U nivers d UTI d UTI ity of (urinary (urinary [place] tract tract Physici infection) infection) an s Anemia Anemia Problem Active Univers ity of [place] Physici ans Pressure Pressure Problem Active Unive rs injury of injury of ity of deep deep [place] tissue of tissue of Phys ici sacral sacral ans region region Sacral Sacral Problem Active Univers decubitus decubitus ity of ulcer ulcer [place] Physici ans Dry skin Dry skin Problem Active Unive rs dermatitis dermatitis it y of [place] Physici ans SB (spina SB (spina Problem Active Uni vers bifida) bifida) ity of [place] Physici ans Paraplegia Paraplegia Problem Active U nivers ity of [place] Physici ans Pelvic Pelvic Problem Active Univers prolapse prolapse ity of [place] Physici ans Right low Right low Problem Active Uni vers back pain back pain ity of [place] Physici ans Encounter Encounter Problem Active Uni vers for for ity of gynecologi gynecologi [place] lacey lacey Physici examinatio examinatio an s n n Bladder Bladder Problem Active Univers spasm spasm ity of [place] Physici ans Allergies, Adverse Reactions, Alerts Allergy Allergy Status Severity Reaction(s) Onset Inactive Treating Comm ents Source Name Type Date Date Clinician Morphine Allergy Active Univers Derivati to drug ity of ves (finding [place] ) Physici ans Latex Allergy Active Univers Gloves to drug ity of (finding [place] ) Physici ans vancomyc Allergy Active Univers in to drug ity of (finding [place] ) Physici ans Social History Smoking Status Start Date Stop Date Source Never smoked tobacco (finding) [facility] Medications Ordered Filled Start Stop Current Ordering Indication Dosage Frequency Signature Comments Components Source Medication Medication Date Date Medication? Clinician (SIG) Name Name Oxybutynin Oxybutynin 0 Yes IVETTE TAKE 1 Univers Chloride ER Chloride ER 3-25 [employer] TABLET BY ity of 5 MG Oral 5 MG Oral 00:00: MOUTH [place] Tablet Tablet 00 DAILY Physici Extended Extended ans Release 24 Release 24 Hour Hour Hyoscyamine Hyoscyamine [address] Univers Sulfate Sulfate 3-20 [employer] TABLET it y of 0.125 MG 0.125 MG 00:00: UNDER THE [place] Sublingual Sublingual 00 TONGUE P hysici Tablet Tablet EVERY 4 TO ans Sublingual Sublingual 6 HOURS NEEDED. Mirena 20 Mirena 20 2019-0 Yes VERONA USE Univers MCG/24HR MCG/24HR 1-14 TORRE DIRECTED. ity of Intrauterin Intrauterin 00:00: M.D. [place] e e 00 Physici Intrauterin Intrauterin a ns e Device e Device Ammonium Ammonium 2019-0 Yes VERONA Q0.5D APPLY AND Univers Lactate 12 Lactate 12 1-14 TORRE RUB IN A ity of % External % External 00:00: M.D. THIN FILM [place] Cream Cream 00 TO Physici AFFECTED ans AREAS TWICE DAILY.(AM AND PM). Ferrous Ferrous 2018-0 Yes ZULEIKHA Q0.5D TAKE 1 Univers Sulfate 325 Sulfate 325 5-29 TYEBJEE TABLET ity of (65 Fe) MG (65 Fe) MG 00:00: M.D. TWICE [place] Oral Tablet Oral Tablet 00 DAILY WITH Physici MEALS. ans Ondansetron Ondansetron 0 Yes IVETTE 1 Q12H TAKE 1 Univers HCl - 4 MG HCl - 4 MG 5-08 [employer] MA[employer]GER TABLET ity of Oral Tablet Oral Tablet 00:00: Every [place] 00 twelve Physici hours ans amLODIPine amLODIPine 2018-0 Yes VERONA TAKE 1 Univers Besylate 5 Besylate 5 4-26 TORRE TABLET BY ity of MG Oral MG Oral 00:00: M.D. MOUTH [place] Tablet Tablet 00 DAILY Physici ans Zolpidem Zolpidem 2018-0 Yes BANDAR 1 QD TAKE 1 Un leana Tartrate 5 Tartrate 5 4-26 HERMILO TABLET ity of MG Oral MG Oral 00:00: M.D. DAILY [place] Tablet Tablet 00 Physici ans Immunizations Ordered Immunization Filled Immunization Date Status Commen ts Source Name Name Tdap (Adacel) Unknown Completed [facility] Fluzone Quadrivalent Unknown Completed Univ ersity of 0.5 ML Intramuscular [place] Physicians Suspension Vital Signs Vital Name Observation Time Observation Value Comments Source Systolic blood 2019-10-20 154 mm[Hg] Location: [facility]; [facility] 10:01:00 Position: [place] Physician s Sitting Diastolic blood 2019-10-20 96 mm[Hg] Location: [facility] 10:01:00 Position: [place] Physician s Sitting Body height 2019-10-20 60 [in_us] University 10:01:00 [place] Physician s Weight 2019-10-20 140 [lb_av] [facility] 10:01:00 [place] Physician s Body mass index 2019-10-20 27.34 kg/m2 [place] o (BMI) [Ratio] 10:01:00 [facility] Body temperature 2019-10-20 98.4 [degF] Method: Oral [facility] 10:01:00 [place] Physician s Heart Rate 2019-10-20 93 /min [facility] 10:01:00 [place] Physician s Systolic blood 2019-10-13 132 mm[Hg] Location: Replaced by [facility] 09:41:00 Position: [place] Physician s Sitting Diastolic blood 2019-10-13 86 mm[Hg] Location: Replaced by [facility] 09:41:00 Position: [place] Physician s Sitting Weight 2019-10-13 140 [lb_av] [facility] 09:41:00 [place] Physician s Body mass index 2019-10-13 27.34 kg/m2 [place] o f (BMI) [Ratio] 09:41:00 [facility] Body temperature 2019-10-13 98 [degF] Method: Oral University of 09:41:00 [place] Physician s Heart Rate 2019-10-13 93 /min Location: L [place] of :41:00 Brachial [place] Physician s Artery; Respiratory rate 2019-10-13 14 /min Quality: Normal Universi ty of :41:00 [place] Physician s BP Systolic 2019-09-12 118 mm[Hg] Location: [place]; [place] of ::00 Position: [place] Physician s Sitting BP Diastolic 2019-09-12 86 mm[Hg] Location: [place]; [place] of ::00 Position: [place] Physician s Sitting Height 2019-09-12 60 [in_us] University of :01:00 [place] Physician s Temperature 2019-09-12 98.6 [degF] Method: Oral [place] of :: [place] Physician s Heart Rate 2019-09-12 116 /min Location: R [place] of :: Brachial [place] Physician s Artery; Quality: Normal Respiration Rate 2019-09-12 15 /min Quality: Normal Universi ty of 14::00 [place] Physician s BP Systolic 2019-01-27 116 mm[Hg] Location: [place]; [place] of ::00 Position: [place] Physician s Sitting BP Diastolic 2019-01-27 81 mm[Hg] Location: [place]; [place] of ::00 Position: [place] Physician s Sitting Height 2019-01-27 60 [in_us] University of 09:02:00 [place] Physician s Temperature 2019-01-27 98.4 [degF] Method: [facility] of :02:00 [place] Physician s Heart Rate 2019-01-27 103 /min University of :02:00 [place] Physician s BP Systolic 2019-01-25 115 mm[Hg] Location: [place]; [place] of :: Position: [place] Physician s Sitting BP Diastolic 2019-01-25 81 mm[Hg] Location: [place]; [place] of :: Position: [place] Physician s Sitting Height 2019-01-25 60 [in_us] University of 11:14:00 [place] Physician s Weight 2019-01-25 142 [lb_av] University of :: [place] Physician s Body Mass Index 2019-01-25 27.73 kg/m2 University o f Calculated :14: [place] Physician s Temperature 2019-01-25 98.2 [degF] Method: Oral University of :14: [place] Physician s Heart Rate 2019-01-25 101 /min Location: R [facility] 11:: Radial; [place] Physician s Respiration Rate 2019-01-25 18 /min Quality: Normal Universi ty of 11:14:00 [place] Physician s BP Systolic 2019-01-04 120 mm[Hg] Location: [facility]; [facility] :34:00 Position: [place] Physician s Sitting BP Diastolic 2019-01-04 88 mm[Hg] Location: [facility]; [facility] :34:00 Position: [place] Physician s Sitting Temperature 2019-01-04 98.2 [degF] Method: [facility] of 08:34:00 [place] Physician s Heart Rate 2019-01-04 101 /min Location: R [facility] :34:00 Brachial [place] Physician s Artery; Respiration Rate 2019-01-04 16 /min Quality: Normal Universi ty of 08:34:00 [place] Physician s BP Systolic 2018-12-23 115 mm[Hg] Location: [facility]; [facility] :: Position: [place] Physician s Sitting BP Diastolic 2018-12-23 84 mm[Hg] Location: [facility]; [place] of :: Position: [place] Physician s Sitting Height 2018-12-23 60 [in_us] University of 11:14:00 [place] Physician s Body Mass Index 2018-12-23 27.73 kg/m2 University o f Calculated 11:14:00 [place] Physician s Weight 2018-12-23 142 [lb_av] University of 11:14: [place] Physician s Temperature 2018-12-23 97.9 [degF] Method: [facility] of 11:: [place] Physician s Heart Rate 2018-12-23 99 /min Location: R [place] of 11:: Brachial [place] Physician s Artery; Respiration Rate 2018-12-23 14 /min University of 11:14:00 [place] Physician s BP Systolic 2018-12-23 117 mm[Hg] Location: [facility]; [place] of 10:06:00 Position: [place] Physician s Sitting BP Diastolic 2018-12-23 85 mm[Hg] Location: [facility]; [place] of 10:06:00 Position: [place] Physician s Sitting Height 2018-12-23 60 [in_us] University of 10:06:00 [place] Physician s Weight 2018-12-23 142 [lb_av] [place] of 10:06:00 [place] Physician s Body Mass Index 2018-12-23 27.73 kg/m2 University o f Calculated 10:06:00 [place] Physician s Temperature 2018-12-23 98.4 [degF] Method: Oral University of 10:06:00 [place] Physician s Heart Rate 2018-12-23 97 /min University of 10:06:00 [place] Physician s BP Systolic 2018-11-28 114 mm[Hg] Location: [facility]; [facility] 10:36:00 Position: [place] Physician s Sitting BP Diastolic 2018-11-28 83 mm[Hg] Location: [facility]; [facility] 10:36:00 Position: [place] Physician s Sitting Height 2018-11-28 60 [in_us] University of 10:36:00 [place] Physician s Weight 2018-11-28 142 [lb_av] University of 10:36:00 [place] Physician s Body Mass Index 2018-11-28 27.73 kg/m2 University o f Calculated 10:36:00 [place] Physician s Heart Rate 2018-11-28 112 /min University of 10:36:00 [place] Physician s BP Systolic 2018-11-14 109 mm[Hg] Location: [place]; [place] of 09:57:00 Position: [place] Physician s Sitting BP Diastolic 2018-11-14 71 mm[Hg] Location: [facility] :57:00 Position: [place] Physician s Sitting Height 2018-11-14 60 [in_us] University of 09:57:00 [place] Physician s Weight 2018-11-14 142 [lb_av] University of 09:57:00 [place] Physician s Body Mass Index 2018-11-14 27.73 kg/m2 University o f Calculated 09:57:00 [place] Physician s Temperature 2018-11-14 98.6 [degF] Method: Oral University of 09:57:00 [place] Physician s Heart Rate 2018-11-14 94 /min University of 09:57:00 [place] Physician s BP Systolic 2018-06-08 133 mm[Hg] Location: [facility]; [facility] 11:36:00 Position: [place] Physician s Sitting BP Diastolic 2018-06-08 93 mm[Hg] Location: [facility]; [facility] 11:36:00 Position: [place] Physician s Sitting Height 2018-06-08 60 [in_us] University of 11:36:00 [place] Physician s Weight 2018-06-08 144 [lb_av] University of 11:36:00 [place] Physician s Body Mass Index 2018-06-08 28.12 kg/m2 University o f Calculated 11:36:00 [place] Physician s Temperature 2018-06-08 98.6 [degF] Method: University of 11:36:00 Temporal [place] Physician s Heart Rate 2018-06-08 104 /min Location: L [facility] 11:36:00 Brachial [place] Physician s Artery; BP Systolic 2018-05-30 137 mm[Hg] Location: [facility]; [facility] 11:19:00 Position: [place] Physician s Sitting BP Diastolic 2018-05-30 91 mm[Hg] Location: [place]; [facility] 11:19: Position: [place] Physician s Sitting Height 2018-05-30 60 [in_us] University 11:19:00 [place] Physician s Weight 2018-05-30 144 [lb_av] University 11:19:00 [place] Physician s Body Mass Index 2018-05-30 28.12 kg/m2 University o f Calculated 11:19:00 [place] Physician s Temperature 2018-05-30 97.8 [degF] Method: [facility] 11:19: Temporal [place] Physician s Heart Rate 2018-05-30 108 /min University 11:19:00 [place] Physician s BP Systolic 2018-05-11 140 mm[Hg] Location: [facility] 10:52:00 Position: [place] Physician s Sitting BP Diastolic 2018-05-11 98 mm[Hg] Location: [facility]; [facility] :52:00 Position: [place] Physician s Sitting Height 2018-05-11 60 [in_us] University 10:52:00 [place] Physician s Weight 2018-05-11 144 [lb_av] [facility] 10:52:00 [place] Physician s Body Mass Index 2018-05-11 28.12 kg/m2 University o f Calculated 10:52:00 [place] Physician s Temperature 2018-05-11 97.9 [degF] Method: [facility] 10:52:00 Temporal [place] Physician s Heart Rate 2018-05-11 115 /min [facility] 10:52:00 [place] Physician s Procedures Procedure Date / Time Performing Source Performed Clinician . [facility] - PAP 2019-10-20 University [facility] xas 00:00:[address] Abdomen/Pelvis w/wo 2019-10-10 [facility] contrast [id number] 00:00:[address] Abd Renal Protocol w/wo IV 2019-09-[facility] [id number] [facility]:[address] Renal Stone [id number] 2019-09-11 [facility] 00:00:00 Physicians [QLH] CULTURE, URINE, ROUTINE 2018-12-23 [facility] [place] 00:00:00 Physicians [QLH] CBC (INCLUDES DIFF/PLT) 2018-12-23 [facility] 00:00:00 Physicians MRI Pelvis with and without 2018-12-05 [facility] contrast [id number] 00:00:00 Physicians [QLH] CULTURE, URINE, ROUTINE 2018-11-28 [facility] 00:00:00 Physicians [QLH] URINALYSIS, COMPLETE 2018-11-28 [facility] 00:00:00 Physicians [QLH] CBC (INCLUDES DIFF/PLT) 2018-11-28 [facility] 00:00:00 Physicians [QLH] CMP W/EGFR 2018-11-28 [facility] [place] [facility] ex 00:00:00 Physicians MRI Abdomen/Pelvis w/wo 2018-11-14 [facility] contrast [id number] 00:00:00 Physicians Abdomen AP view [id number] 2018-08-01 [facility] 00:00:00 Physicians Abdomen AP view [id number] 2018-06-08 [facility] 00:00:00 Physicians [QLH] CBC (INCLUDES DIFF/PLT) 2018-05-30 [facility] 00:00:00 Physicians [QLH] BASIC METABOLIC PANEL 2018-05-30 [facility] W/EGFR 00:00:[address] Abd Renal Protocol w/wo IV 2018-05-30 [facility] contrast [id number] 00:00:00 Physicians [H] C Urine Transplant 2018-05-30 [facility] 00:00:00 Physicians [H] Culture: Wound/Abscess 2018-05-30 [facility] w/Gram Stain 00:00:00 Physicians [H] PTH Profile 2018-05-11 [facility] 00:00:00 Physicians [QH] CALCIUM 2018-05-11 [facility] 00:00:00 Physicians [QLH] BUN/CREATININE RATIO 2018-05-[facility] W/EGFR 00:00:00 Physicians [B] VITAMIN D 25-HYDROXY 2018-05-11 [facility] 00:00:00 Physicians [QLH] CBC (INCLUDES DIFF/PLT) 2018-05-11 [facility] Physicians History of Colostomy [facility] Physicians History of Dilation And [facility] Curettage Of Cervical Stump Phys icians History of Hysteroscopy [facility] Physicians History of Ureteral stent [facility] placement Physicians History of [facility] [place] Ventriculoperitoneal shunt Physi cians creation Plan of Care Planned Activity Planned Date Details Comments Source Diagnostic Test 2019-10-20 CT Abd Renal University o f [place] Pending 00:00:00 Protocol w/wo IV Physicians contrast [id number] [code = 81048-67] Diagnostic Test 2019-10-10 CT Abdomen/Pelvis [facility] Pending 00:00:00 w/wo contrast Physicians [id number] [code = 08682] Diagnostic Test 2018-12-05 MRI Pelvis with [facility] Pending 00:00:00 and without Physicians contrast [id number] [code = 47684] Diagnostic Test 2018-12-05 MRI Pelvis with [facility] Pending 00:00:00 and without Physicians contrast [id number] [code = 60978] Diagnostic Test 2018-12-01 Abdomen AP view [facility] Pending 00:00:00 [id number] [code = Physicians 18805] Future Appointment 2020-03-06 Erika PIRES [facility] 10:00:00 [place] VILLASENOR Encounters Start End Encounter Admission Attending Care Care Encounter Source Date/Time Date/Time Type Type Clinicians Facility Department ID 2019-10-21 Inpatient U [facility] MED [id number] [facility] H 12:15:00 2018-12-13 Inpatient U [facility] URO [id number] [facility] H 17:12:36 2019-12-08 2019-12-08 Appointmen EDUARDO JUAREZ Urology - [id number] Univers 08:45:00 08:45:00 t; ANNIE JUAREZ M.D. [place] Jose A Echavarria [place] Erika Astor Physici ans 2019-11-03 2019-11-03 Appointmen EDUARDO TORRE [facility] [id number] Univers 14:30:00 14:30:00 t; Erika RHOADES [place] SHIRA, Physici M.DRebecca [facility] 2019-10-27 2019-10-27 Appointmen EDUARDO JUAREZ Urology - [id number] Univers 10:15:00 10:15:00 t; ANNIE JUAREZ M.D. [facility] Physici [facility] 2019-10-20 2019-10-20 AppointEDUARDO [facility] [id number] Univers 10:15:00 10:15:00 t; DEONDRE RAMSAY M.D. [facility]ici [facility] 2019-10-13 2019-10-13 Appointpo TORRE [facility] Family [id number] Univers 09:30:00 09:30:00 t; Erika [facility]HOADES [facility]ici M.DRebecca [facility] 2019-09-12 2019-09-12 Appointpo TORRE [facility] Family [id number] Univers 13:15:00 13:15:00 t; Erika RHOADES Medicine - ity [facility] Physici M.D. [facility] 2019-08-25 2019-08-25 Inpatient E [facility] MED [id number] [facility] 06:34:00 00:52:00 2019-03-21 2019-03-21 Appointpo [facility] [id number] Univers 11:00:00 11:00:00 t; shawn WERNER Tutu ROBERTS M.D. Physici ABDIRAHMAN [facility] Erika 2019-01-30 2019-01-30 Emergency E [facility] URO [id number] [facility] 18:32:00 18:32:00 2019-01-27 2019-01-27 AppointEDUARDO [facility] [id number] Univers 09:00:00 09:00:00 t; DEONDRE RAMSAY [facility].D. [facility] 2019-01-25 2019-01-25 Appointpo SAEED [facility] Family [id number] Univers 10:30:00 10:30:00 t; ROBERTO Medicine - i ty of Erika SAEED [facility] ROBERTO Medical Physic i Erika Center ans 2019-01-22 2019-01-22 Outpatient E [facility] MED [id number] [facility] 05:46:00 05:46:00 2019-01-12 2019-01-12 Outpatient [facility] URO [id number] [facility] 17:47:00 17:47:00 2019-01-12 2019-01-12 Appointmen EDUARDO RAMSAY UTP [id number] Univers 11:30:00 11:30:00 t; DEONDRE RAMSAY M.D. i ty of Hellen MENDOSA M.D. Physici ans 2019-01-12 2019-01-12 EDUARDO Quiroz [id number] Univers 07:30:00 07:30:00 t; ANNIE JUAREZ M.D. [facility] Physici ans 2019-01-06 2019-01-06 Outpatient [facility] URO [id number] [facility] 10:09:00 10:09:00 2019-01-04 2019-01-04 AppointEDUARDO Jimenez Family [id number] Univers 08:15:00 08:15:00 t; Erika PORTILLO Medicine i ty of [place], [place] Ruby PORTILLO M.D. ans 2018-12-23 2018-12-23 Appointmen DIALLO CLARK Family [id number] Univers 11:00:00 11:00:00 t; MED PROVIDER, Medicine ity of PROVIDER, [facility] Physici ans 2018-12-23 2018-12-23 Appointmen EDUARDO RAMSAY Women's [id number] Univers 09:40:00 09:40:00 t; DEONDRE RAMSAY M.D. Center i ty of [place]en MENDOSA M.D. Physici ans 2018-12-14 2018-12-13 [id number] 03:28:00 19:10:00 2018-12-07 2018-12-07 EDUARDO Quiroz Urologic [id number] Univers 10:30:00 10:30:00 t; ANNIE [facility]. [facility] ans 2018-11-28 2018-11-28 Appointmen KARON BOONE [facility] Women's [id number] Univers 10:45:00 10:45:00 t; Erika [place]ONE [place] Erika Physici ans 2018-11-28 2018-11-28 Appointmen [facility]A [facility] [id number] Univers 09:40:00 09:40:00 t; DEONDRE RAMSAY M.D. i [facility] ans 2018-11-14 2018-11-14 Appointmen DEVENDRA [facility] Women's [id number] Univers 09:30:00 09:30:00 t; DEONDRE RAMSAY M.D. [place] i ty [facility] ans 2018-08-10 2018-08-10 Appointmen EDUARDO JUAREZ [place] [id number] Univers 08:45:00 08:45:00 t; ANNIE JUAREZ M.D. Multi ity [facility]IE[facility] ans 2018-06-08 2018-06-08 AppointEDUARDO [place] [id number] Univers 09:45:00 09:45:00 t; ANNIE JUAREZ M.D. Multi ity ANNIE, [facility]ici ans 2018-05-30 2018-05-30 Appointmen DEVANTE [facility] Urologic [id number] Univers 10:30:00 10:30:00 t; Fioan GODFREY, P.AKarlene Sotelo P.ARebecca ans 2018-05-11 2018-05-11 Appointmen EDUARDO JUAREZ [place] [id number] Univers 10:15:00 10:15:00 t; ANNIE JUAREZ M.D. [facility], [facility].Cici Physici ans 2018-04-15 2018-04-15 Appointmen EDUARDO JUAREZ [facility] [id number] Univers 08:45:00 08:45:00 t; ANNIE JUAREZ M.D. ity of [place]JARHellen M.D. Physici ans 2010-06-10 2010-06-10 Appointmen TERRY [facility] Women's [id number] Univers 13:30:00 13:30:00 YOUSIF Ivey, Ajay escobar Erika DODD M.D. Physici ans Results Test Description Test Time Test Comments Results Result Comments Source . [facility] - PAP 2019-10-20 00:00:00 Test Item Value Reference Range Interpretation Comme nts Case (test code = Case) Click ImageLink button for report. N [facility]] CBC (INCLUDES DIFF/PLT)2018-12-23 13:20:01 Test Item Value Reference Range Interpretation Comments WBC (test code = 8.9 {K/CMM} 3.7-10.4 6690-2) RBC (test code = 4.90 {M/CMM} 4.20-5.40 789-8) Hgb; Below Low 11.1 g/dl 12.0-16.0 Threshold (test code = 718-7) Hct; Below Low 34.8 % 36.0-48.0 Threshold (test code = 23967-7) MCV; Below Low 71.1 fL 80.0-98.0 Threshold (test code = 787-2) MCH; Below Low 22.8 pg 27.0-31.0 Threshold (test code = 785-6) MCHC (test code = 32.0 g/dl 32.0-36.0 786-4) RDW; Above High 25.0 % 11.5-14.5 Threshold (test code = 788-0) Platelet (test code See Note 133-450 Platelet s clumped in = 35097-9) EDTA, unable to estimate, sugge st recollection in a bluetop tube wi th an order for "Blue Top Platelet Count" Mean Platelet 8.6 fL 7.4-10.4 Volume (test code = 12705-3) [facility]] [id number] 13:20:01 Test Item Value Reference Range Interpretation Comments Segmented Neutrophils (test code 66.6 % 45.0-75.0 = 34842-2) Monocytes (test code = 52311-7) 8.6 % 2.0-12.0 Lymphocytes (test code = 39913-8) 21.0 % 20.0-40.0 Eosinophils (test code = 70024-4) 3.2 % 0.0-4.0 Basophils (test code = 706-2) 0.6 % 0.0-1.0 Segs-Bands # (test code = 5.9 {K/CMM} 1.5-8.1 70673-4) Lymphocytes # (test code = 1.9 {K/CMM} 1.0-5.5 31173-8) Monocytes # (test code = 16736-1) 0.8 {K/CMM} 0.0-0.8 Eosinophils # (test code = 0.3 {K/CMM} 0.0-0.5 47754-8) Basophils # (test code = 84089-2) 0.1 {K/CMM} 0.0-0.2 Plt Morphology (test code = Plt Clumped Normal Morphology) Anisocyte; Abnormal (test code = 1+ None Seen A 92220-3) Microcyte (test code = Microcyte) 2+ None Seen A [facility]] CULTURE, URINE, [id number] 13:20:01 Test Item Value Reference Range Interpretation Comments ORGANISM (test Acinetobacter code = 699-9) baumanniiEnterococcus Species FINAL REPORT 50,000 - 100,000 CFU/mL (test code = Acinetobacter baumannii , FINAL REPORT) Multi-drug Resistant Wexszhcs58,000 - 50,000 CFU/mL Enterococcus Species 10,000 - 50,000 CFU/mL Yeast [facility][H] [id number] 13:20:01 Test Item Value Reference Range Interpretation Comments ORGANISM (test code = Enterococcus 699-9) Species Ampicillin (test code - S = Ampicillin) Levofloxacin (test - R code = Levofloxacin) Nitrofurantoin (test - S code = Nitrofurantoin) Tetracycline (test - R code = Tetracycline) Vancomycin (test code SEE NOTES S S= Roxanne ceptible, = Vancomycin) R= Resistant, I= Intermediate, N/A= Not Applicable [facility][H] [id number] 13:20:01 Test Item Value Reference Range Interpretation Comments ORGANISM (test code = Acinetobacter 699-9) baumannii Amikacin (test code = <=16 S Amikacin) Ampicillin/Sulbactam >16/8 R (test code = Ampicillin/Sulbactam) Cefepime (test code = >16 R Cefepime) Ciprofloxacin (test >2 R code = Ciprofloxacin) Levofloxacin (test code >4 R = Levofloxacin) Meropenem (test code = >8 R Meropenem) Tetracycline (test code >8 R = Tetracycline) Tobramycin (test code = <=4 S Tobramycin) [facility][H] [id number] 13:20:01 Test Item Value Reference Range Interpretation Comments ORGANISM (test code = Acinetobacter baumannii 699-9) Colistin (test code = .38 S Colistin) Minocycline (test code 1.5 S = Minocycline) [facility] Pel[facility] with and without contrast [id number] 2018-12-06 10:08:00Clinical indication: R58- excessive bleedingComparison: CT abdomen pelvis 04/12/2018TECHNIQUE: Multiplanar and multisequence magnetic resonance imaging of thepelvis were obtained with and without IV contrast.IV contrast: 13 mL DotaremFINDINGS:The inferior most portion of the pelvis including portions of the vagina andanal canal were not included on the scan field of view.Reproductive organs: The uterus is anteverted. There are multiple [id number] uterine fibroids. A 5.1 x 4.2 x [...] T2 hyperintensity,suggestive of an adenomyoma. This region measures 4.1 x 4 x 4.1 cm. Thejunctional zone measures up to 5 mm in thickness. The endometrium is normal inthickness, measuring up to 8 mm. Nabothian cysts are present in the cervix.Subcentimeter follicles are present in the bilateral ovaries.Peritoneum/retroperitoneum: A small amount of free fluid is present in thepelvis, which may be physiologic.Gastrointestinal: A left lower quadrant colostomy is present. Visualizedportions of small bowel are normal in caliber.Urinary bladder: The urinary bladder iscontracted.Lymph nodes: No pelvic lymphadenopathy.Pelvic vessels: The pelvic vessels enhance normally.Bones: There are redemonstrated changes of spina bifida. Rotatory scoliosis ispresent in the spine.Dysplasia of the right hip is seen with chronicdislocation of the right femur, remodeling of the right femoral head andshallow acetabulum.Soft tissues: A sacral decubitus ulcer is present. Enhancement is seen aroundthe right greater trochanteric bursa suggestive of bursitis. There is diastasesof the rectus abdominis muscles.Other: A partially visualized right kidney demonstrates multiple low signalfilling defects in the renal pelvis, suggestive of nephrolithiasis. The largestmeasures 0.9 cm.IMPRESSION:1. Multiple uterine fibroids as well as a 3.8 cm fibroid adjacent to theuterus, likely a broad lig ament fibroid.2. A 4.1 cm uterine adenomyoma.3. Multiple right renal calculi.4. Sacral decubitus ulcer.5. No significant change in findings of spina bifida with right hip dysplasia.6. Findings suggestive of right greater trochanteric bursitis.7. Left lower quadrant colostomy.SL: [id number] by: Teresa Newsome MDDictated Date/time: 12/06/18 13:39Electronically Signed by: Teresa Newsome MD 12/06/1912:56FINAL REPORT [facility]] CMP [id number] 11:27:01 Test Item Value Reference Range Interpretation Comments Sodium Level 137 {mEq/l} 135-145 (test code = 2951-2) Potassium Level 4.2 {mEq/l} 3.5-5.1 (test code = 2823-3) Chloride Level 104 {mEq/l} 95-109 (test code = 5-0) Carbon Dioxide 24 {mEq/l} 24-32 (test code = 2027-) AGAP (test code = 13.2 {mEq/l} 10.0-20.0 40888-0) Glucose Lvl (test 95 mg/dl 70-99 Adult refe rence range code = 2345-7) values reflec t the clinical guidel inesof the [place] Diabet es Association. Creatinine Lvl 0.80 mg/dl 0.50-1.40 (test code = 2160-0) Blood Urea 14 mg/dl 7-22 Nitrogen (test code = 3094-0) BUN/Creatinine 18 6-25 Ratio (test code = 3097-3) Total Protein; 9.1 g/dl 6.4-8.4 Above High Threshold (test code = 2885-2) Albumin Lvl (test 3.7 g/dl 3.5-5.0 code = 1751-7) Globulin; Above 5.4 g/dl 2.7-4.2 High Threshold (test code = 24975-1) A/G Ratio (test 0.7 0.7-1.6 code = 1759-0) Calcium Level 9.9 mg/dl 8.5-10.5 Total (test code = 53835-8) ALT (test code = 23 u/l 0-65 1743-4) AST (test code = 17 u/l 0-37 92325-4) Bili Total (test 0.2 mg/dl 0.2-1.3 code = 1975-2) Alk Phos (test 77 u/l 39-136 code = 1783-0) eGFR (test code = 107 The eGFR i s calculated 76204-8) {ML/MIN/1.7} using the CKD-E PI formula. In mos t young, healthyindividu als the eGFR will be >9 0 mL/min/1.73m2. The eGFR declines with a ge. AneGFR of 60-89 may be normal in some population s, particularly th e elderly, forwhom the CKD -EPI formula has not been extensively efrain idated. Use of the eGFR isnot recommended in the following populations:Ind ividuals with unstable c reatinine concentrations, including patient s and those with seri ous co-morbid conditions.Larissa ents with extremes in mus alex mass or diet.The cassandra a above are obtained fr om the National Kidney Disease Education Progr am(NKDEP) which additiona lly recommends that when the eGFR is used in patientswith ex tremes of body mass index for purposes of xavier g dosing, the eGFR should be multiplied by t he estimated BMI. [facility]] CBC (INCLUDES DIFF/PLT)2018-11-28 11:27:01 Test Item Value Reference Range Interpretation Comments WBC (test code = 9.4 {K/CMM} 3.7-10.4 6690-2) RBC (test code = 5.19 {M/CMM} 4.20-5.40 789-8) Hgb; Below Low 11.6 g/dl 12.0-16.0 Threshold (test code = 718-7) Hct (test code = 36.4 % 36.0-48.0 71850-0) MCV; Below Low 70.1 fL 80.0-98.0 Threshold (test code = 787-2) MCH; Below Low 22.4 pg 27.0-31.0 Threshold (test code = 785-6) MCHC; Below Low 31.9 g/dl 32.0-36.0 Threshold (test code = 786-4) RDW; Above High 30.7 % 11.5-14.5 Threshold (test code = 788-0) Platelet (test code See Note 133-450 Platelet s clumped in = 66518-8) EDTA, unable to estimate, sugge st recollection in a bluetop tube wi th an order for "Blue Top Platelet Count" Mean Platelet 8.2 fL 7.4-10.4 Volume (test code = 13664-0) [facility]] CULTURE, URINE, [id number] 11:27:01 Test Item Value Reference Range Interpretation Comments FINAL REPORT (test Specimen contains 3 or code = FINAL more potential pathogens; REPORT) recommend correlation withurinalysis; if catheterized specimen recommend removal and recollection. Ifclinical situation warrants please call the laboratory for further testing. COMicrobiology [phone]. [facility]iciansSURGICALLY OBTAINED CULTURE + GRAM [id number] 12:12:00 Test Item Value Reference Range Interpretation Comments CULTURE (BEAKER) ENTEROCOCCUS A 2+ Enteroco ccus (test code = 1095) SPECIES species Ampicillin (test S code = 26) Linezolid (test code S = 40) Tetracycline (test R code = 2) Vancomycin (test S code = 13) CULTURE (BEAKER) A 1+ Katie (test code = 1095) albicans CULTURE (BEAKER) KLEBSIELLA A 1+ Klebsiel la (test code = 1095) PNEUMONIAE SSP pneumon iae ssp PNEUMONIAE pneumoniae Amikacin (test code S = 1) Ampicillin + S Sulbactam (test code = 6) Aztreonam (test code S = 32) Cefepime (test code S = 51) Cefoxitin (test code S = 68) Ceftazidime (test S code = 27) Ceftriaxone (test S code = 52) Ertapenem (test code S = 38) Gentamicin (test S code = 18) Levofloxacin (test S code = 22) Meropenem (test code S = 34) Nitrofurantoin (test I code = 23) Piperacillin + S Tazobactam (test code = 29) Tetracycline (test S code = 2) Tobramycin (test S code = 25) Trimethoprim + S Sulfamethoxazole (test code = 47) CULTURE (BEAKER) VANCOMYCIN A 1+ Vancomyc in (test code = 1095) RESISTANT resistant ENTEROCOCCUS Enterococcus SPECIES species Ampicillin (test R code = 26) Linezolid (test code S = 40) Vancomycin (test R code = 13) Daptomycin (test Susceptible 0-4 , S code = 59) No Interpretations Established <0 or >4 ANAEROBIC [id number] 05:31:00 Test Item Value Reference Range Interpretation Comments CULTURE (BEAKER) (test No anaerobes isolated code = 1095) URINE [id number] 11:06:00 Test Item Value Reference Range Interpretation Comments CULTURE (BEAKER) A 20-29,000 c ol/mL (test code = 1095) Katie parapsilosis CULTURE (BEAKER) PSEUDOMONAS A 20-29,000 c ol/mL (test code = 1095) AERUGINOSA Pseudomon as aeruginosa Amikacin (test code Susceptible 0-16 S = 1) , Resistant <0 or >16 Aztreonam (test Susceptible 0-8 , S code = 32) Resistant <0 or >8 Cefepime (test code Susceptible 0-8 , S = 51) Resistant <0 or >8 Ceftazidime (test Susceptible 0-8 , S code = 27) Resistant <0 or >8 Ciprofloxacin (test Susceptible 0-1 , R code = 7) Resistant <0 or >1 Gentamicin (test Susceptible 0-4 , R code = 18) Resistant <0 or >4 Levofloxacin (test Susceptible 0-2 , R code = 22) Resistant <0 or >2 Meropenem (test Susceptible 0-2 , S code = 34) Resistant <0 or >2 Piperacillin (test Susceptible 0-16 S code = 24) , Resistant <0 or >16 Piperacillin + Susceptible 0-16 S Tazobactam (test , Resistant <0 or code = 29) >16 Tobramycin (test Susceptible 0-4 , R code = 25) Resistant <0 or >4 URINE [id number] 11:03:00 Test Item Value Reference Interpretation Comments Range CULTURE (BEAKER) (test ENTEROCOCCUS A >100, 000 col/mL code = 1095) SPECIES Enterococcus species Ampicillin (test code S = 26) Linezolid (test code = S 40) Nitrofurantoin (test S code = 23) Tetracycline (test R code = 2) Vancomycin (test code S = 13) CULTURE (BEAKER) (test ESCHERICHIA COLI A 5 0-59,000 col/mL code = 1095) Escherichia col i Amikacin (test code = S 1) Ampicillin + Sulbactam S (test code = 6) Aztreonam (test code = S 32) Cefepime (test code = S 51) Cefoxitin (test code = R 68) Ceftazidime (test code S = 27) Ceftriaxone (test code S = 52) Ertapenem (test code = S 38) Gentamicin (test code S = 18) Levofloxacin (test R code = 22) Meropenem (test code = S 34) Nitrofurantoin (test S code = 23) Piperacillin + S Tazobactam (test code = 29) Tetracycline (test R code = 2) Tobramycin (test code S = 25) Trimethoprim + R Sulfamethoxazole (test code = 47) CULTURE (BEAKER) (test ENTEROBACTER A 50-59 ,000 col/mL code = 1095) CLOACAE COMPLEX Enterobacter cloacae complex Amikacin (test code = S 1) Aztreonam (test code = S 32) Cefepime (test code = S 51) Cefoxitin (test code = R 68) Ceftazidime (test code S = 27) Ceftriaxone (test code S = 52) Ertapenem (test code = S 38) Gentamicin (test code S = 18) Levofloxacin (test S code = 22) Meropenem (test code = S 34) Nitrofurantoin (test I code = 23) Piperacillin + S Tazobactam (test code = 29) Tetracycline (test S code = 2) Tobramycin (test code S = 25) Trimethoprim + R Sulfamethoxazole (test code = 47) Dr. lopez request for avycaz and zerbaxaCT, [id number] 07:41:00FINAL REPORT INDICATION:37-year-old female status post recent [...] and right sided urinary stones. Signed: Frederick LozanoMDReport Verified Date/Time: 06/29/2018 07:41:57 Reading Location: [facility] Diagnostic Imaging Reading Room - [place] [id number] W/PLT COUNT & AUTO [id number] 07:07:00 Test Item Value Reference Range Interpretation Comments WHITE BLOOD CELL COUNT 9.2 K/ L 3.5-10.5 (BEAKER) (test code = 775) RED BLOOD CELL COUNT 4.41 M/ L 3.93-5.22 (BEAKER) (test code = 761) HEMOGLOBIN (BEAKER) 10.1 GM/DL 11.2-15.7 L (test code = 410) HEMATOCRIT (BEAKER) 33.7 % 34.1-44.9 L (test code = 411) MEAN CORPUSCULAR VOLUME 76.4 fL 79.4-94.8 L (BEAKER) (test code = 753) MEAN CORPUSCULAR 22.9 pg 25.6-32.2 L HEMOGLOBIN (BEAKER) (test code = 751) MEAN CORPUSCULAR 30.0 GM/DL 32.2-35.5 L HEMOGLOBIN CONC (BEAKER) (test code = 752) RED CELL DISTRIBUTION 21.2 % 11.7-14.4 H WIDTH (BEAKER) (test code = 412) PLATELET COUNT (BEAKER) 51 K/CU MM 150-450 L (test code = 756) MEAN PLATELET VOLUME fL 9.4-12.3 Unable to report due (BEAKER) (test code = to abn ormal Platelet 754) population distribution. NUCLEATED RED BLOOD 0 /100 WBC 0-0 CELLS (BEAKER) (test code = 413) NEUTROPHILS RELATIVE 71 % PERCENT (BEAKER) (test code = 429) LYMPHOCYTES RELATIVE 17 % PERCENT (BEAKER) (test code = 430) MONOCYTES RELATIVE 10 % PERCENT (BEAKER) (test code = 431) EOSINOPHILS RELATIVE 1 % PERCENT (BEAKER) (test code = 432) BASOPHILS RELATIVE 0 % PERCENT (BEAKER) (test code = 437) NEUTROPHILS ABSOLUTE 6.59 K/ L 1.56-6.13 H COUNT (BEAKER) (test code = 670) LYMPHOCYTES ABSOLUTE 1.59 K/ L 1.18-3.74 COUNT (BEAKER) (test code = 414) MONOCYTES ABSOLUTE 0.91 K/ L 0.24-0.36 H COUNT (BEAKER) (test code = 415) EOSINOPHILS ABSOLUTE 0.07 K/ L 0.04-0.36 COUNT (BEAKER) (test code = 416) BASOPHILS ABSOLUTE 0.03 K/ L 0.01-0.08 COUNT (BEAKER) (test code = 417) IMMATURE 0 % 0-1 GRANULOCYTES-RELATIVE PERCENT (BEAKER) (test code = 2801) BASIC METABOLIC [id number] 06:01:00 Test Item Value Reference Range Interpretation Comments SODIUM (BEAKER) 137 meq/L 136-145 (test code = 381) POTASSIUM (BEAKER) 3.7 meq/L 3.5-5.1 (test code = 379) CHLORIDE (BEAKER) 112 meq/L 98-107 H (test code = 382) CO2 (BEAKER) (test 17 meq/L 22-29 L code = 355) BLOOD UREA NITROGEN 7 mg/dL 7-21 (BEAKER) (test code = 354) CREATININE (BEAKER) 0.64 mg/dL 0.57-1.25 (test code = 358) GLUCOSE RANDOM 82 mg/dL 70-105 (BEAKER) (test code = 652) CALCIUM (BEAKER) 8.9 mg/dL 8.4-10.2 (test code = 697) EGFR (BEAKER) (test 126 mL/min/1.73 ESTIM ATED GFR IS code = 1092) sq m NOT ACCURATE CREATININE CLEARANCE IN PREDICTING GLOMERULAR FILTRATION RATE . ESTIMATED GFR I S NOT APPLICABLE FOR DIALYSIS PATIEN TS. CBC W/PLT COUNT & AUTO [id number] 22:22:00 Test Item Value Reference Range Interpretation Comments WHITE BLOOD CELL COUNT 8.0 K/ L 3.5-10.5 (BEAKER) (test code = 775) RED BLOOD CELL COUNT 4.53 M/ L 3.93-5.22 (BEAKER) (test code = 761) HEMOGLOBIN (BEAKER) 10.5 GM/DL 11.2-15.7 L (test code = 410) HEMATOCRIT (BEAKER) 35.1 % 34.1-44.9 (test code = 411) MEAN CORPUSCULAR VOLUME 77.5 fL 79.4-94.8 L (BEAKER) (test code = 753) MEAN CORPUSCULAR 23.2 pg 25.6-32.2 L HEMOGLOBIN (BEAKER) (test code = 751) MEAN CORPUSCULAR 29.9 GM/DL 32.2-35.5 L HEMOGLOBIN CONC (BEAKER) (test code = 752) RED CELL DISTRIBUTION 20.6 % 11.7-14.4 H WIDTH (BEAKER) (test code = 412) PLATELET COUNT (BEAKER) 97 K/CU MM 150-450 L (test code = 756) MEAN PLATELET VOLUME fL 9.4-12.3 Unable to report due (BEAKER) (test code = to abn ormal Platelet 754) population distribution. NUCLEATED RED BLOOD 0 /100 WBC 0-0 CELLS (BEAKER) (test code = 413) NEUTROPHILS RELATIVE 80 % PERCENT (BEAKER) (test code = 429) LYMPHOCYTES RELATIVE 16 % PERCENT (BEAKER) (test code = 430) MONOCYTES RELATIVE 4 % PERCENT (BEAKER) (test code = 431) EOSINOPHILS RELATIVE 0 % PERCENT (BEAKER) (test code = 432) BASOPHILS RELATIVE 0 % PERCENT (BEAKER) (test code = 437) NEUTROPHILS ABSOLUTE 6.41 K/ L 1.56-6.13 H COUNT (BEAKER) (test code = 670) LYMPHOCYTES ABSOLUTE 1.24 K/ L 1.18-3.74 COUNT (BEAKER) (test code = 414) MONOCYTES ABSOLUTE 0.32 K/ L 0.24-0.36 COUNT (BEAKER) (test code = 415) EOSINOPHILS ABSOLUTE 0.00 K/ L 0.04-0.36 L COUNT (BEAKER) (test code = 416) BASOPHILS ABSOLUTE 0.01 K/ L 0.01-0.08 COUNT (BEAKER) (test code = 417) IMMATURE 1 % 0-1 GRANULOCYTES-RELATIVE PERCENT (BEAKER) (test code = 2801) BASIC METABOLIC [id number] 21:08:00 Test Item Value Reference Range Interpretation Comments SODIUM (BEAKER) 135 meq/L 136-145 L (test code = 381) POTASSIUM (BEAKER) 4.4 meq/L 3.5-5.1 (test code = 379) CHLORIDE (BEAKER) 111 meq/L 98-107 H (test code = 382) CO2 (BEAKER) (test 15 meq/L 22-29 L code = 355) BLOOD UREA NITROGEN 7 mg/dL 7-21 (BEAKER) (test code = 354) CREATININE (BEAKER) 0.62 mg/dL 0.57-1.25 (test code = 358) GLUCOSE RANDOM 95 mg/dL 70-105 (BEAKER) (test code = 652) CALCIUM (BEAKER) 8.9 mg/dL 8.4-10.2 (test code = 697) EGFR (BEAKER) (test 131 mL/min/1.73 ESTIM ATED GFR IS code = 1092) sq m NOT ACCURATE CREATININE CLEARANCE IN PREDICTING GLOMERULAR FILTRATION RATE . ESTIMATED GFR I S NOT APPLICABLE FOR DIALYSIS PATIEN TS. RAD, CHEST, 1 VIEW, NON [id number] 13:37:00Reason for exam:->eval for pneumothoraxReason for exam:->in PACUShould this be performed at the bedside?->YesFINAL REPORT TECHNIQUE: Frontal chest radiograph dated 06/28/2018. [...] present. No visualized fracture. Signed: Charanjit White MDReport Verified Date/Time: 06/28/2018 13:37:49 Reading Location: [facility] Radiology Reading Room CBC W/PLT COUNT & AUTO [id number] 09:50:00 Test Item Value Reference Range Interpretation Comments WHITE BLOOD CELL COUNT 5.8 K/ L 3.5-10.5 (BEAKER) (test code = 775) RED BLOOD CELL COUNT 4.38 M/ L 3.93-5.22 (BEAKER) (test code = 761) HEMOGLOBIN (BEAKER) 10.3 GM/DL 11.2-15.7 L (test code = 410) HEMATOCRIT (BEAKER) 33.7 % 34.1-44.9 L (test code = 411) MEAN CORPUSCULAR 76.9 fL 79.4-94.8 L VOLUME (BEAKER) (test code = 753) MEAN CORPUSCULAR 23.5 pg 25.6-32.2 L HEMOGLOBIN (BEAKER) (test code = 751) MEAN CORPUSCULAR 30.6 GM/DL 32.2-35.5 L HEMOGLOBIN CONC (BEAKER) (test code = 752) RED CELL DISTRIBUTION 20.5 % 11.7-14.4 H WIDTH (BEAKER) (test code = 412) PLATELET COUNT K/CU MM 150-450 Platelet clum ps (BEAKER) (test code = presen t;unable to 756) report true cou nt. Platelet count should be recollected using an EDTA and CITRATE(blue) t ube. MEAN PLATELET VOLUME fL 9.4-12.3 Unable to report due (BEAKER) (test code = to abn ormal Platelet 754) population distribution. NUCLEATED RED BLOOD 0 /100 WBC 0-0 CELLS (BEAKER) (test code = 413) NEUTROPHILS RELATIVE 47 % PERCENT (BEAKER) (test code = 429) LYMPHOCYTES RELATIVE 33 % PERCENT (BEAKER) (test code = 430) MONOCYTES RELATIVE 12 % PERCENT (BEAKER) (test code = 431) EOSINOPHILS RELATIVE 8 % PERCENT (BEAKER) (test code = 432) BASOPHILS RELATIVE 0 % PERCENT (BEAKER) (test code = 437) NEUTROPHILS ABSOLUTE 2.70 K/ L 1.56-6.13 COUNT (BEAKER) (test code = 670) LYMPHOCYTES ABSOLUTE 1.90 K/ L 1.18-3.74 COUNT (BEAKER) (test code = 414) MONOCYTES ABSOLUTE 0.66 K/ L 0.24-0.36 H COUNT (BEAKER) (test code = 415) EOSINOPHILS ABSOLUTE 0.45 K/ L 0.04-0.36 H COUNT (BEAKER) (test code = 416) BASOPHILS ABSOLUTE 0.02 K/ L 0.01-0.08 COUNT (BEAKER) (test code = 417) IMMATURE 0 % 0-1 GRANULOCYTES-RELATIVE PERCENT (BEAKER) (test code = 2801) FL, YOUTH DIRECTOR IN OR/30 MINUTE [id number] 09:43:00Reason for exam:- >PCNLIs the patient ?->NoWhen was patient's last menstrual cycle?->06/15/18INAL REPORT History: PCNL COMPARISON: None DISCUSSION: A [...] static images were acquired. Signed: Toni Curtis MDReport Verified Date/Time: 06/28/2018 09:43:00 Reading Location:[facility] Radiology Reading Room 09:43 AMBASIC METABOLIC [id number] 07:59:00 Test Item Value Reference Range Interpretation Comments SODIUM (BEAKER) 135 meq/L 136-145 L (test code = 381) POTASSIUM (BEAKER) 4.2 meq/L 3.5-5.1 (test code = 379) CHLORIDE (BEAKER) 110 meq/L 98-107 H (test code = 382) CO2 (BEAKER) (test 18 meq/L 22-29 L code = 355) BLOOD UREA NITROGEN 7 mg/dL 7-21 (BEAKER) (test code = 354) CREATININE (BEAKER) 0.63 mg/dL 0.57-1.25 (test code = 358) GLUCOSE RANDOM 84 mg/dL 70-105 (BEAKER) (test code = 652) CALCIUM (BEAKER) 8.6 mg/dL 8.4-10.2 (test code = 697) EGFR (BEAKER) (test 128 mL/min/1.73 ESTIM ATED GFR IS code = 1092) sq m NOT ACCURATE CREATININE CLEARANCE IN PREDICTING GLOMERULAR FILTRATION RATE . ESTIMATED GFR I S NOT APPLICABLE FOR DIALYSIS PATIEN TS. HEMOGLOBIN AND [id number] 14:41:00 Test Item Value Reference Range Interpretation Comments HEMOGLOBIN (BEAKER) (test code = 6.5 GM/DL 11.2-15.7 L 410) HEMATOCRIT (BEAKER) (test code = 23.1 % 34.1-44.9 L 411) BASIC METABOLIC [id number] 08:36:00 Test Item Value Reference Range Interpretation Comments SODIUM (BEAKER) 135 meq/L 136-145 L (test code = 381) POTASSIUM (BEAKER) 4.1 meq/L 3.5-5.1 (test code = 379) CHLORIDE (BEAKER) 111 meq/L 98-107 H (test code = 382) CO2 (BEAKER) (test 18 meq/L 22-29 L code = 355) BLOOD UREA NITROGEN 8 mg/dL 7-21 (BEAKER) (test code = 354) CREATININE (BEAKER) 0.61 mg/dL 0.57-1.25 (test code = 358) GLUCOSE RANDOM 75 mg/dL 70-105 (BEAKER) (test code = 652) CALCIUM (BEAKER) 8.4 mg/dL 8.4-10.2 (test code = 697) EGFR (BEAKER) (test 133 mL/min/1.73 ESTIM ATED GFR IS code = 1092) sq m NOT ACCURATE CREATININE CLEARANCE IN PREDICTING GLOMERULAR FILTRATION RATE . ESTIMATED GFR I S NOT APPLICABLE FOR DIALYSIS PATIEN TS. CBC W/PLT COUNT & AUTO [id number] 05:49:00 Test Item Value Reference Range Interpretation Comments WHITE BLOOD CELL COUNT (BEAKER) 5.1 K/ L 3.5-10.5 (test code = 775) RED BLOOD CELL COUNT (BEAKER) 3.14 M/ L 3.93-5.22 L (test code = 761) HEMOGLOBIN (BEAKER) (test code = 6.3 GM/DL 11.2-15.7 L 410) HEMATOCRIT (BEAKER) (test code = 22.8 % 34.1-44.9 L 411) MEAN CORPUSCULAR VOLUME (BEAKER) 72.6 fL 79.4-94.8 L (test code = 753) MEAN CORPUSCULAR HEMOGLOBIN 20.1 pg 25.6-32.2 L (BEAKER) (test code = 751) MEAN CORPUSCULAR HEMOGLOBIN CONC 27.6 GM/DL 32.2-35.5 L (BEAKER) (test code = 752) RED CELL DISTRIBUTION WIDTH 20.5 % 11.7-14.4 H (BEAKER) (test code = 412) PLATELET COUNT (BEAKER) (test 426 K/CU MM 150-450 code = 756) MEAN PLATELET VOLUME (BEAKER) 10.9 fL 9.4-12.3 (test code = 754) NUCLEATED RED BLOOD CELLS 0 /100 WBC 0-0 (BEAKER) (test code = 413) NEUTROPHILS RELATIVE PERCENT 47 % (BEAKER) (test code = 429) LYMPHOCYTES RELATIVE PERCENT 30 % (BEAKER) (test code = 430) MONOCYTES RELATIVE PERCENT 13 % (BEAKER) (test code = 431) EOSINOPHILS RELATIVE PERCENT 10 % (BEAKER) (test code = 432) BASOPHILS RELATIVE PERCENT 0 % (BEAKER) (test code = 437) NEUTROPHILS ABSOLUTE COUNT 2.35 K/ L 1.56-6.13 (BEAKER) (test code = 670) LYMPHOCYTES ABSOLUTE COUNT 1.53 K/ L 1.18-3.74 (BEAKER) (test code = 414) MONOCYTES ABSOLUTE COUNT (BEAKER) 0.67 K/ L 0.24-0.36 H (test code = 415) EOSINOPHILS ABSOLUTE COUNT 0.48 K/ L 0.04-0.36 H (BEAKER) (test code = 416) BASOPHILS ABSOLUTE COUNT (BEAKER) 0.01 K/ L 0.01-0.08 (test code = 417) IMMATURE GRANULOCYTES-RELATIVE 0 % 0-1 PERCENT (BEAKER) (test code = 2801) HEMOGLOBIN AND [id number] 14:34:00 Test Item Value Reference Range Interpretation Comments HEMOGLOBIN (BEAKER) (test code = 7.0 GM/DL 11.2-15.7 L 410) HEMATOCRIT (BEAKER) (test code = 24.7 % 34.1-44.9 L 411) CBC W/PLT COUNT & AUTO [id number] 10:55:00 Test Item Value Reference Range Interpretation Comments WHITE BLOOD CELL COUNT 6.0 K/ L 3.5-10.5 (BEAKER) (test code = 775) RED BLOOD CELL COUNT 3.59 M/ L 3.93-5.22 L (BEAKER) (test code = 761) HEMOGLOBIN (BEAKER) 7.3 GM/DL 11.2-15.7 L (test code = 410) HEMATOCRIT (BEAKER) 25.9 % 34.1-44.9 L (test code = 411) MEAN CORPUSCULAR VOLUME 72.1 fL 79.4-94.8 L (BEAKER) (test code = 753) MEAN CORPUSCULAR 20.3 pg 25.6-32.2 L HEMOGLOBIN (BEAKER) (test code = 751) MEAN CORPUSCULAR 28.2 GM/DL 32.2-35.5 L HEMOGLOBIN CONC (BEAKER) (test code = 752) RED CELL DISTRIBUTION 20.2 % 11.7-14.4 H WIDTH (BEAKER) (test code = 412) PLATELET COUNT (BEAKER) 592 K/CU MM 150-450 H Plat elets count (test code = 756) from cit[place] tube. MEAN PLATELET VOLUME 9.4 fL 9.4-12.3 (BEAKER) (test code = 754) NUCLEATED RED BLOOD 0 /100 WBC 0-0 CELLS (BEAKER) (test code = 413) NEUTROPHILS RELATIVE 56 % PERCENT (BEAKER) (test code = 429) LYMPHOCYTES RELATIVE 26 % PERCENT (BEAKER) (test code = 430) MONOCYTES RELATIVE 10 % PERCENT (BEAKER) (test code = 431) EOSINOPHILS RELATIVE 8 % PERCENT (BEAKER) (test code = 432) BASOPHILS RELATIVE 0 % PERCENT (BEAKER) (test code = 437) NEUTROPHILS ABSOLUTE 3.35 K/ L 1.56-6.13 COUNT (BEAKER) (test code = 670) LYMPHOCYTES ABSOLUTE 1.53 K/ L 1.18-3.74 COUNT (BEAKER) (test code = 414) MONOCYTES ABSOLUTE 0.60 K/ L 0.24-0.36 H COUNT (BEAKER) (test code = 415) EOSINOPHILS ABSOLUTE 0.47 K/ L 0.04-0.36 H COUNT (BEAKER) (test code = 416) BASOPHILS ABSOLUTE 0.02 K/ L 0.01-0.08 COUNT (BEAKER) (test code = 417) IMMATURE 0 % 0-1 GRANULOCYTES-RELATIVE PERCENT (BEAKER) (test code = 2801) BASIC METABOLIC [id number] 06:21:00 Test Item Value Reference Range Interpretation Comments SODIUM (BEAKER) 138 meq/L 136-145 (test code = 381) POTASSIUM (BEAKER) 4.6 meq/L 3.5-5.1 Specimen slightly (test code = 379) hemolyzed CHLORIDE (BEAKER) 114 meq/L 98-107 H (test code = 382) CO2 (BEAKER) (test 15 meq/L 22-29 L code = 355) BLOOD UREA NITROGEN 9 mg/dL 7-21 (BEAKER) (test code = 354) CREATININE (BEAKER) 0.67 mg/dL 0.57-1.25 Specimen slightly (test code = 358) hemolyzed GLUCOSE RANDOM 81 mg/dL 70-105 (BEAKER) (test code = 652) CALCIUM (BEAKER) 8.6 mg/dL 8.4-10.2 (test code = 697) EGFR (BEAKER) (test 119 mL/min/1.73 ESTIM ATED GFR IS code = 1092) sq m NOT ACCURATE CREATININE CLEARANCE IN PREDICTING GLOMERULAR FILTRATION RATE . ESTIMATED GFR I S NOT APPLICABLE FOR DIALYSIS PATIEN TS. CBC W/PLT COUNT & AUTO [id number] 14:39:00 Test Item Value Reference Range Interpretation Comments WHITE BLOOD CELL COUNT 5.3 K/ L 3.5-10.5 (BEAKER) (test code = 775) RED BLOOD CELL COUNT 3.55 M/ L 3.93-5.22 L (BEAKER) (test code = 761) HEMOGLOBIN (BEAKER) 7.3 GM/DL 11.2-15.7 L (test code = 410) HEMATOCRIT (BEAKER) 25.9 % 34.1-44.9 L (test code = 411) MEAN CORPUSCULAR 73.0 fL 79.4-94.8 L VOLUME (BEAKER) (test code = 753) MEAN CORPUSCULAR 20.6 pg 25.6-32.2 L HEMOGLOBIN (BEAKER) (test code = 751) MEAN CORPUSCULAR 28.2 GM/DL 32.2-35.5 L HEMOGLOBIN CONC (BEAKER) (test code = 752) RED CELL DISTRIBUTION 20.3 % 11.7-14.4 H WIDTH (BEAKER) (test code = 412) PLATELET COUNT 554 K/CU MM 150-450 H Platelet Clum ps (BEAKER) (test code = presen t. Unable to 756) report true cou nt on Purple top. Delia telet Count using cit rate tube MEAN PLATELET VOLUME fL 9.4-12.3 Unable to report due (BEAKER) (test code = to abn ormal Platelet 754) population distribution. NUCLEATED RED BLOOD 0 /100 WBC 0-0 CELLS (BEAKER) (test code = 413) NEUTROPHILS RELATIVE 61 % PERCENT (BEAKER) (test code = 429) LYMPHOCYTES RELATIVE 25 % PERCENT (BEAKER) (test code = 430) MONOCYTES RELATIVE 8 % PERCENT (BEAKER) (test code = 431) EOSINOPHILS RELATIVE 6 % PERCENT (BEAKER) (test code = 432) BASOPHILS RELATIVE 0 % PERCENT (BEAKER) (test code = 437) NEUTROPHILS ABSOLUTE 3.25 K/ L 1.56-6.13 COUNT (BEAKER) (test code = 670) LYMPHOCYTES ABSOLUTE 1.32 K/ L 1.18-3.74 COUNT (BEAKER) (test code = 414) MONOCYTES ABSOLUTE 0.40 K/ L 0.24-0.36 H COUNT (BEAKER) (test code = 415) EOSINOPHILS ABSOLUTE 0.34 K/ L 0.04-0.36 COUNT (BEAKER) (test code = 416) BASOPHILS ABSOLUTE 0.01 K/ L 0.01-0.08 COUNT (BEAKER) (test code = 417) IMMATURE 0 % 0-1 GRANULOCYTES-RELATIVE PERCENT (BEAKER) (test code = 2801) RAD, CHEST, 1 VIEW, NON [id number] 10:16:00Reason for exam:->Post Power PICC insertion RUE for tip verificationShould this be performed at the bedside?->YesFINAL REPORT AP chest HISTORY: PICC placement COMPARISON: None IMPRESSION:Right arm PICC present with tip at upper SVC. SVC filter present. 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 Grossly normal cardiac silhouette. Right lung clear. Moderate left effusion. Signed: Satish Kerr MDReport VerifiedDate/Time: 06/25/2018 10:16:18 Reading Location: [address] Ortho Consult Reading Room BASIC METABOLIC [id number] 09:58:00 Test Item Value Reference Range Interpretation Comments SODIUM (BEAKER) 136 meq/L 136-145 (test code = 381) POTASSIUM (BEAKER) 4.4 meq/L 3.5-5.1 Specimen slightly (test code = 379) hemolyzed CHLORIDE (BEAKER) 107 meq/L 98-107 (test code = 382) CO2 (BEAKER) (test 23 meq/L 22-29 code = 355) BLOOD UREA NITROGEN 11 mg/dL 7-21 (BEAKER) (test code = 354) CREATININE (BEAKER) 0.68 mg/dL 0.57-1.25 Specimen slightly (test code = 358) hemolyzed GLUCOSE RANDOM 92 mg/dL 70-105 (BEAKER) (test code = 652) CALCIUM (BEAKER) 8.9 mg/dL 8.4-10.2 (test code = 697) EGFR (BEAKER) (test 117 mL/min/1.73 ESTIM ATED GFR IS code = 1092) sq m NOT ACCURATE CREATININE CLEARANCE IN PREDICTING GLOMERULAR FILTRATION RATE . ESTIMATED GFR I S NOT APPLICABLE FOR DIALYSIS PATIEN TS. CBC W/PLT COUNT & AUTO [id number] 13:38:00 Test Item Value Reference Range Interpretation Comments WHITE BLOOD CELL COUNT 7.5 K/ L 3.5-10.5 (BEAKER) (test code = 775) RED BLOOD CELL COUNT 4.45 M/ L 3.93-5.22 (BEAKER) (test code = 761) HEMOGLOBIN (BEAKER) 9.2 GM/DL 11.2-15.7 L (test code = 410) HEMATOCRIT (BEAKER) 32.4 % 34.1-44.9 L (test code = 411) MEAN CORPUSCULAR 72.8 fL 79.4-94.8 L VOLUME (BEAKER) (test code = 753) MEAN CORPUSCULAR 20.7 pg 25.6-32.2 L HEMOGLOBIN (BEAKER) (test code = 751) MEAN CORPUSCULAR 28.4 GM/DL 32.2-35.5 L HEMOGLOBIN CONC (BEAKER) (test code = 752) RED CELL DISTRIBUTION 20.6 % 11.7-14.4 H WIDTH (BEAKER) (test code = 412) PLATELET COUNT 275 K/CU MM 150-450 (BEAKER) (test code = 756) MEAN PLATELET VOLUME fL 9.4-12.3 Unable to report due (BEAKER) (test code = to abn ormal Platelet 754) population distribution. NUCLEATED RED BLOOD 0 /100 WBC 0-0 CELLS (BEAKER) (test code = 413) NEUTROPHILS RELATIVE 65 % PERCENT (BEAKER) (test code = 429) LYMPHOCYTES RELATIVE 23 % PERCENT (BEAKER) (test code = 430) MONOCYTES RELATIVE 8 % PERCENT (BEAKER) (test code = 431) EOSINOPHILS RELATIVE 4 % PERCENT (BEAKER) (test code = 432) BASOPHILS RELATIVE 0 % PERCENT (BEAKER) (test code = 437) NEUTROPHILS ABSOLUTE 4.86 K/ L 1.56-6.13 COUNT (BEAKER) (test code = 670) LYMPHOCYTES ABSOLUTE 1.69 K/ L 1.18-3.74 COUNT (BEAKER) (test code = 414) MONOCYTES ABSOLUTE 0.60 K/ L 0.24-0.36 H COUNT (BEAKER) (test code = 415) EOSINOPHILS ABSOLUTE 0.30 K/ L 0.04-0.36 COUNT (BEAKER) (test code = 416) BASOPHILS ABSOLUTE 0.02 K/ L 0.01-0.08 COUNT (BEAKER) (test code = 417) IMMATURE 0 % 0-1 GRANULOCYTES-RELATIVE PERCENT (BEAKER) (test code = 2801) BASIC METABOLIC [id number] 13:03:00 Test Item Value Reference Range Interpretation Comments SODIUM (BEAKER) 134 meq/L 136-145 L (test code = 381) POTASSIUM (BEAKER) 4.3 meq/L 3.5-5.1 (test code = 379) CHLORIDE (BEAKER) 104 meq/L 98-107 (test code = 382) CO2 (BEAKER) (test 19 meq/L 22-29 L code = 355) BLOOD UREA NITROGEN 11 mg/dL 7-21 (BEAKER) (test code = 354) CREATININE (BEAKER) 0.72 mg/dL 0.57-1.25 (test code = 358) GLUCOSE RANDOM 82 mg/dL 70-105 (BEAKER) (test code = 652) CALCIUM (BEAKER) 9.7 mg/dL 8.4-10.2 (test code = 697) EGFR (BEAKER) (test 110 mL/min/1.73 ESTIM ATED GFR IS code = 1092) sq m NOT ACCURATE CREATININE CLEARANCE IN PREDICTING GLOMERULAR FILTRATION RATE . ESTIMATED GFR I S NOT APPLICABLE FOR DIALYSIS PATIEN TS. BODY FLUID CULTURE + GRAM [id number] 16:53:00 Test Item Value Reference Interpretation Comments Range CULTURE (BEAKER) (test ENTEROBACTER A 2+ En terobacter code = 1095) CLOACAE COMPLEX cloacae complexESBL PositiveAmpC Positive Amikacin (test code = S 1) Aztreonam (test code = R 32) Cefepime (test code = R 51) Cefoxitin (test code = R 68) Ceftazidime (test code R = 27) Ceftriaxone (test code R = 52) Ertapenem (test code = R 38) Gentamicin (test code R = 18) Levofloxacin (test R code = 22) Meropenem (test code = R 34) Nitrofurantoin (test R code = 23) Piperacillin + R Tazobactam (test code = 29) Tetracycline (test R code = 2) Tobramycin (test code R = 25) Trimethoprim + S Sulfamethoxazole (test code = 47) CULTURE (BEAKER) (test ENTEROCOCCUS A 2+ En terococcus code = 1095) SPECIES species Ampicillin (test code R = 26) Linezolid (test code = S 40) Vancomycin (test code S = 13) CULTURE (BEAKER) (test A 2+ Ca ndida code = 1095) parapsilosis GRAM STAIN RESULT No organisms seen (BEAKER) (test code = 1123) GRAM STAIN RESULT 1+ White blood (BEAKER) (test code = cells seen [id number]) URINE [id number] 10:14:00 Test Item Value Reference Range Interpretation Comments CULTURE (BEAKER) ENTEROBACTER A >100,000 co l/mL (test code = 1095) CLOACAE COMPLEX Entero bacter cloacae complex Amikacin (test code = S 1) Aztreonam (test code R = 32) Cefepime (test code = R 51) Cefoxitin (test code R = 68) Ceftazidime (test R code = 27) Ceftriaxone (test R code = 52) Gentamicin (test code R = 18) Levofloxacin (test R code = 22) Meropenem (test code R = 34) Nitrofurantoin (test R code = 23) Piperacillin + R Tazobactam (test code = 29) Tetracycline (test R code = 2) Tobramycin (test code R = 25) Trimethoprim + S Sulfamethoxazole (test code = 47) CULTURE (BEAKER) PSEUDOMONAS A 30-39,000 c ol/mL (test code = 1095) AERUGINOSA Pseudomon as aeruginosa Amikacin (test code = Susceptible 0-16 S 1) , Resistant <0 or >16 Aztreonam (test code Susceptible 0-8 R = 32) , Resistant <0 or >8 Cefepime (test code = Susceptible 0-8 S 51) , Resistant <0 or >8 Ceftazidime (test Susceptible 0-8 R code = 27) , Resistant <0 or >8 Ciprofloxacin (test Susceptible 0-1 R code = 7) , Resistant <0 or >1 Gentamicin (test code Susceptible 0-4 R = 18) , Resistant <0 or >4 Levofloxacin (test Susceptible 0-2 R code = 22) , Resistant <0 or >2 Meropenem (test code Susceptible 0-2 S = 34) , Resistant <0 or >2 Piperacillin (test Susceptible 0-16 R code = 24) , Resistant <0 or >16 Piperacillin + Susceptible 0-16 R Tazobactam (test code , Resistant <0 = 29) or >16 Tobramycin (test code Susceptible 0-4 R = 25) , Resistant <0 or >4 CULTURE (BEAKER) ENTEROCOCCUS A 50-59,000 c ol/mL (test code = 1095) SPECIES Enterococ cus species Ampicillin (test code S = 26) Linezolid (test code S = 40) Nitrofurantoin (test R code = 23) Tetracycline (test R code = 2) Vancomycin (test code S = 13) BLOOD [id number] 11:00:00 Test Item Value Reference Range Interpretation Comments CULTURE (BEAKER) (test No growth in 5 days code = 1095) BLOOD [id number] 06:00:00 Test Item Value Reference Range Interpretation Comments CULTURE (BEAKER) (test No growth in 5 days code = 1095) BASIC METABOLIC [id number] 04:43:00 Test Item Value Reference Range Interpretation Comments SODIUM (BEAKER) 141 meq/L 136-145 (test code = 381) POTASSIUM (BEAKER) 3.7 meq/L 3.5-5.1 (test code = 379) CHLORIDE (BEAKER) 112 meq/L 98-107 H (test code = 382) CO2 (BEAKER) (test 21 meq/L 22-29 L code = 355) BLOOD UREA NITROGEN 12 mg/dL 7-21 (BEAKER) (test code = 354) CREATININE (BEAKER) 0.63 mg/dL 0.57-1.25 (test code = 358) GLUCOSE RANDOM 83 mg/dL 70-105 (BEAKER) (test code = 652) CALCIUM (BEAKER) 8.9 mg/dL 8.4-10.2 (test code = 697) EGFR (BEAKER) (test 128 mL/min/1.73 ESTIM ATED GFR IS code = 1092) sq m NOT ACCURATE CREATININE CLEARANCE IN PREDICTING GLOMERULAR FILTRATION RATE . ESTIMATED GFR I S NOT APPLICABLE FOR DIALYSIS PATIEN TS. URINALYSIS W/ REFLEX URINE [id number] 15:11:00 Test Item Value Reference Range Interpretation Comments COLOR (BEAKER) (test code = 470) [place] CLARITY (BEAKER) (test code = 469) Hazy SPECIFIC GRAVITY UA (BEAKER) (test 1.013 1.001-1.035 code = 468) PH UA (BEAKER) (test code = 467) 6.0 5.0-8.0 PROTEIN UA (BEAKER) (test code = 100 mg/dL Negative A 464) GLUCOSE UA (BEAKER) (test code = Negative Negative 365) KETONES UA (BEAKER) (test code = Trace Negative A 371) BILIRUBIN UA (BEAKER) (test code = Negative Negative 462) BLOOD UA (BEAKER) (test code = 461) Large Negative A NITRITE UA (BEAKER) (test code = Negative Negative 465) LEUKOCYTE ESTERASE UA (BEAKER) Large Negative A (test code = 466) UROBILINOGEN UA (BEAKER) (test code 0.2 mg/dL 0.2-1.0 = 463) RBC UA (BEAKER) (test code = 519) > /HPF WBC UA (BEAKER) (test code = 520) 68 /HPF MUCUS (BEAKER) (test code = 1574) Rare SOURCE(BEAKER) (test code = 2795) ANG, NEPHROSTOMY, PERC, EXTERNAL [id number] 13:43:00Reason for exam:- >right obstructing stone with UTI, needs right PCNU if possible or PCN if not FINAL REPORT Fluoroscopic and ultrasound guided right nephroureterostomy tube placement, 06/12/2018. Clinical History: Obstructing stone at the junction of the right distal ureter and ileoconduit with hydronephrosis and urosepsis. Patient has a history of spina bifida/caudal re gression. Modality: Sonography and fluoroscopy Yarn Dyer: Faisal Felix MD. Digital Advisor: None. Sedation: General anesthesia provided by the anesthesia service Estimated Blood Loss: Less than 5 cc. Specimen: None. Fluoroscopy Time: 3.6 min.Reference Air Kerma (Ka, r): 21.5 mGy. Technique: [...] pole calyx was visualized with ultrasound. Using ul trasound guidance, a 21-gauge Accustick needle was advanced [...] then removed. The tract wasdilated to 8 Pashto. An 8.5 Pashto by 28 cm nephroureterostomy catheter was then [...] right nephroureterostomy tube placement. Signed: Faisal Felix Verified Date/Time: 06/12/2018 13:43:17 Reading Location: [facility] P048 Angio Body Reading Room (HEMOGRAM ONLY)[id number] 10:29:00 Test Item Value Reference Range Interpretation Comments WHITE BLOOD CELL COUNT 8.5 K/ L 3.5-10.5 (BEAKER) (test code = 775) RED BLOOD CELL COUNT 4.23 M/ L 3.93-5.22 (BEAKER) (test code = 761) HEMOGLOBIN (BEAKER) 9.1 GM/DL 11.2-15.7 L (test code = 410) HEMATOCRIT (BEAKER) 31.4 % 34.1-44.9 L (test code = 411) MEAN CORPUSCULAR VOLUME 74.2 fL 79.4-94.8 L (BEAKER) (test code = 753) MEAN CORPUSCULAR 21.5 pg 25.6-32.2 L HEMOGLOBIN (BEAKER) (test code = 751) MEAN CORPUSCULAR 29.0 GM/DL 32.2-35.5 L HEMOGLOBIN CONC (BEAKER) (test code = 752) RED CELL DISTRIBUTION 20.4 % 11.7-14.4 H WIDTH (BEAKER) (test code = 412) PLATELET COUNT (BEAKER) K/CU MM 150-450 Plat elet clumps (test code = 756) present, u nable to report true platelet. Recom mend recollect using EDTA tube and blue (Citrate) tube. spoke to RN ID:[id number] NUCLEATED RED BLOOD 0 /100 WBC 0-0 CELLS (BEAKER) (test code = 413) BASIC METABOLIC [id number] 06:52:00 Test Item Value Reference Range Interpretation Comments SODIUM (BEAKER) 137 meq/L 136-145 (test code = 381) POTASSIUM (BEAKER) 3.6 meq/L 3.5-5.1 (test code = 379) CHLORIDE (BEAKER) 108 meq/L 98-107 H (test code = 382) CO2 (BEAKER) (test 20 meq/L 22-29 L code = 355) BLOOD UREA NITROGEN 14 mg/dL 7-21 (BEAKER) (test code = 354) CREATININE (BEAKER) 0.66 mg/dL 0.57-1.25 (test code = 358) GLUCOSE RANDOM 87 mg/dL 70-105 (BEAKER) (test code = 652) CALCIUM (BEAKER) 9.1 mg/dL 8.4-10.2 (test code = 697) EGFR (BEAKER) (test 121 mL/min/1.73 ESTIM ATED GFR IS code = 1092) sq m NOT ACCURATE CREATININE CLEARANCE IN PREDICTING GLOMERULAR FILTRATION RATE . ESTIMATED GFR I S NOT APPLICABLE FOR DIALYSIS PATIEN TS. [id number] 06:37:00 Test Item Value Reference Range Interpretation Comments PROTIME (BEAKER) (test code = 14.4 seconds 11.7-14.7 759) INR (BEAKER) (test code = 370) 1.1 <=5.9 PARTIAL THROMBOPLASTIN TIME 30.8 seconds 22.5-36.0 (BEAKER) (test code = 760) RECOMMENDED COUMADIN/WARFARIN INR THERAPY RANGESSTANDARD DOSE: 2.0 - 3.0 Includes: PROPHYLAXIS forvenous thrombosis, systemic embolization; TREATMENT for venous thrombosis and/or pulmonary embolus.HIGH RISK: Target INR is 2.5-3.5 for patients with mechanical heart valves.CT, [id number] 18:04:00FINAL REPORT CT scan of the abdomen and pelvis. MEDICAL HISTORY: Evaluate right ureteric stone. COMPARISON STUDY: None [...] Date/Time: 06/11/2018 18:04:02 Reading Location: [facility] [id number] Ortho Consult Reading Room PREGNANCY SCREEN, [id number] 15:46:00 Test Item Value Reference Range Interpretation Comments TEST URINE (BEAKER) (test Negative code = 583) URINALYSIS W/ REFLEX URINE [id number] 12:32:00 Test Item Value Reference Range Interpretation Comments COLOR (BEAKER) (test code = 470) Light Yellow CLARITY (BEAKER) (test code = Cloudy 469) SPECIFIC GRAVITY UA (BEAKER) 1.013 1.001-1.035 (test code = 468) PH UA (BEAKER) (test code = 467) 7.5 5.0-8.0 PROTEIN UA (BEAKER) (test code = 30 mg/dL Negative A 464) GLUCOSE UA (BEAKER) (test code = Negative Negative 365) KETONES UA (BEAKER) (test code = Trace Negative A 371) BILIRUBIN UA (BEAKER) (test code Negative Negative = 462) BLOOD UA (BEAKER) (test code = Small Negative A 461) NITRITE UA (BEAKER) (test code = Positive Negative A 465) LEUKOCYTE ESTERASE UA (BEAKER) Large Negative A (test code = 466) UROBILINOGEN UA (BEAKER) (test 0.2 mg/dL 0.2-1.0 code = 463) RBC UA (BEAKER) (test code = 2 /HPF 519) WBC UA (BEAKER) (test code = 5 /HPF 520) BACTERIA (BEAKER) (test code = Occasional 517) MUCUS (BEAKER) (test code = Rare 1574) SQUAMOUS EPITHELIAL (BEAKER) 1 /HPF (test code = 516) HYALINE CASTS (BEAKER) (test 2 /LPF code = 514) SOURCE(BEAKER) (test code = 2795) URINALYSIS W/ [id number] 12:32:00 Test Item Value Reference Range Interpretation Comments COLOR (BEAKER) (test code = Yellow 470) CLARITY (BEAKER) (test code = Hazy 469) SPECIFIC GRAVITY UA (BEAKER) 1.012 1.001-1.035 (test code = 468) PH UA (BEAKER) (test code = 8.0 5.0-8.0 467) PROTEIN UA (BEAKER) (test 50 mg/dL Negative A code = 464) GLUCOSE UA (BEAKER) (test Negative Negative code = 365) KETONES UA (BEAKER) (test Negative Negative code = 371) BILIRUBIN UA (BEAKER) (test Negative Negative code = 462) BLOOD UA (BEAKER) (test code Moderate Negative A = 461) NITRITE UA (BEAKER) (test Positive Negative A code = 465) LEUKOCYTE ESTERASE UA Large Negative A (BEAKER) (test code = 466) UROBILINOGEN UA (BEAKER) 0.2 mg/dL 0.2-1.0 (test code = 463) RBC UA (BEAKER) (test code = 6 /HPF 519) WBC UA (BEAKER) (test code = 10 /HPF 520) BACTERIA (BEAKER) (test code Many = 517) MUCUS (BEAKER) (test code = Many 1574) CRYSTALS, URINE (BEAKER) Occasional (test code = 1521) SOURCE(BEAKER) (test code = Urine, Urostomy 2795) BASIC METABOLIC [id number] 06:01:00 Test Item Value Reference Range Interpretation Comments SODIUM (BEAKER) 139 meq/L 136-145 (test code = 381) POTASSIUM (BEAKER) 3.6 meq/L 3.5-5.1 (test code = 379) CHLORIDE (BEAKER) 108 meq/L 98-107 H (test code = 382) CO2 (BEAKER) (test 23 meq/L 22-29 code = 355) BLOOD UREA NITROGEN 12 mg/dL 7-21 (BEAKER) (test code = 354) CREATININE (BEAKER) 0.66 mg/dL 0.57-1.25 (test code = 358) GLUCOSE RANDOM 75 mg/dL 70-105 (BEAKER) (test code = 652) CALCIUM (BEAKER) 8.7 mg/dL 8.4-10.2 (test code = 697) EGFR (BEAKER) (test 121 mL/min/1.73 ESTIM ATED GFR IS code = 1092) sq m NOT ACCURATE CREATININE CLEARANCE IN PREDICTING GLOMERULAR FILTRATION RATE . ESTIMATED GFR I S NOT APPLICABLE FOR DIALYSIS PATIEN TS. LACTIC ACID, VENOUS, WHOLE [id number] 05:31:00 Test Item Value Reference Range Interpretation Comments LACTATE BLOOD VENOUS (2) (BEAKER) 0.8 mmol/L 0.5-2.2 (test code = 2872) Effective 01/01/2016: Units/Reference Range ChangeNew: 0.5-2.2 mmol/L Previous: 5-20 mg/[id number] 05:20:00 Test Item Value Reference Range Interpretation Comments PARTIAL THROMBOPLASTIN TIME 35.9 seconds 22.5-36.0 (BEAKER) (test code = 760) PROTHROMBIN TIME/[id number] 05:19:00 Test Item Value Reference Range Interpretation Comments PROTIME (BEAKER) (test code = 16.4 seconds 11.7-14.7 H 759) INR (BEAKER) (test code = 370) 1.3 <=5.9 RECOMMENDED COUMADIN/WARFARIN INR THERAPY RANGESSTANDARD DOSE: 2.0 - 3.0 Includes: PROPHYLAXIS forvenous thrombosis, systemic embolization; TREATMENT for venous thrombosis and/or pulmonary embolus.HIGH RISK: Target INR is 2.5-3.5 for patients with mechanical heart valves.CBC W/PLT COUNT & AUTO DIFFERENTIAL 2018-06-11 05:08:00 Test Item Value Reference Range Interpretation Comments WHITE BLOOD CELL COUNT 12.2 K/ L 3.5-10.5 H (BEAKER) (test code = 775) RED BLOOD CELL COUNT 4.90 M/ L 3.93-5.22 (BEAKER) (test code = 761) HEMOGLOBIN (BEAKER) 10.6 GM/DL 11.2-15.7 L (test code = 410) HEMATOCRIT (BEAKER) 36.6 % 34.1-44.9 (test code = 411) MEAN CORPUSCULAR 74.7 fL 79.4-94.8 L VOLUME (BEAKER) (test code = 753) MEAN CORPUSCULAR 21.6 pg 25.6-32.2 L HEMOGLOBIN (BEAKER) (test code = 751) MEAN CORPUSCULAR 29.0 GM/DL 32.2-35.5 L HEMOGLOBIN CONC (BEAKER) (test code = 752) RED CELL DISTRIBUTION 20.5 % 11.7-14.4 H WIDTH (BEAKER) (test code = 412) PLATELET COUNT 340 K/CU MM 150-450 (BEAKER) (test code = 756) MEAN PLATELET VOLUME 9.4 fL 9.4-12.3 Discord ant MPV (BEAKER) (test code = result compared to 754) previous one; Clinical correl ation required. NUCLEATED RED BLOOD 0 /100 WBC 0-0 CELLS (BEAKER) (test code = 413) NEUTROPHILS RELATIVE 89 % PERCENT (BEAKER) (test code = 429) LYMPHOCYTES RELATIVE 5 % PERCENT (BEAKER) (test code = 430) MONOCYTES RELATIVE 4 % PERCENT (BEAKER) (test code = 431) EOSINOPHILS RELATIVE 2 % PERCENT (BEAKER) (test code = 432) BASOPHILS RELATIVE 0 % PERCENT (BEAKER) (test code = 437) NEUTROPHILS ABSOLUTE 10.83 K/ L 1.56-6.13 H COUNT (BEAKER) (test code = 670) LYMPHOCYTES ABSOLUTE 0.60 K/ L 1.18-3.74 L COUNT (BEAKER) (test code = 414) MONOCYTES ABSOLUTE 0.45 K/ L 0.24-0.36 H COUNT (BEAKER) (test code = 415) EOSINOPHILS ABSOLUTE 0.19 K/ L 0.04-0.36 COUNT (BEAKER) (test code = 416) BASOPHILS ABSOLUTE 0.03 K/ L 0.01-0.08 COUNT (BEAKER) (test code = 417) IMMATURE 1 % 0-1 GRANULOCYTES-RELATIVE PERCENT (BEAKER) (test code = 2801) LACTIC ACID, ARTERIAL, WHOLE [id number] 02:05:00 Test Item Value Reference Range Interpretation Comments LACTATE BLOOD 0.6 mmol/L 0.5-2.2 Specimen sligh tly ARTERIAL (2) (BEAKER) hemoly zed (test code = 3799) Effective 01/01/2016: Units/Reference Range ChangeNew: 0.5-2.2 mmol/L Previous: 5-20 mg/[id number] 01:43:00 Test Item Value Reference Range Interpretation Comments MAGNESIUM (BEAKER) 2.0 mg/dL 1.6-2.6 Specimen moderately (test code = 627) hemolyzed [id number] 01:43:00 Test Item Value Reference Range Interpretation Comments PHOSPHORUS (BEAKER) 3.0 mg/dL 2.3-4.7 Specimen moderately (test code = 604) hemolyzed COMPREHENSIVE METABOLIC [id number] 01:43:00 Test Item Value Reference Range Interpretation Comments TOTAL PROTEIN 7.3 gm/dL 6.0-8.3 Specimen moder ately (BEAKER) (test code = hemoly zed 770) ALBUMIN (BEAKER) 3.3 g/dL 3.5-5.0 L Specimen mo derately (test code = 1145) hemolyzed ALKALINE PHOSPHATASE 56 U/L 40-150 (BEAKER) (test code = 346) BILIRUBIN TOTAL 0.4 mg/dL 0.2-1.2 Specimen mod erately (BEAKER) (test code = hemoly zed 377) SODIUM (BEAKER) (test 133 meq/L 136-145 L code = 381) POTASSIUM (BEAKER) 4.5 meq/L 3.5-5.1 Specimen moderately (test code = 379) hemolyzed CHLORIDE (BEAKER) 108 meq/L 98-107 H (test code = 382) CO2 (BEAKER) (test 15 meq/L 22-29 L code = 355) BLOOD UREA NITROGEN 12 mg/dL 7-21 (BEAKER) (test code = 354) CREATININE (BEAKER) 0.61 mg/dL 0.57-1.25 Specimen moderately (test code = 358) hemolyzed GLUCOSE RANDOM 92 mg/dL 70-105 (BEAKER) (test code = 652) CALCIUM (BEAKER) 8.3 mg/dL 8.4-10.2 L (test code = 697) AST (SGOT) (BEAKER) 35 U/L 5-34 H Specimen moderately (test code = 353) hemolyzed ALT (SGPT) (BEAKER) 14 U/L 6-55 Specimen moderately (test code = 347) hemolyzed EGFR (BEAKER) (test 133 ESTIMATE D GFR IS code = 1092) mL/min/1.73 sq NOT ACCURA TE m CREATININE CLEARANCE IN PREDICTING GLOMERULAR FILTRATION RATE . ESTIMATED GFR I S NOT APPLICABLE FOR DIALYSIS PATIEN TS. CBC W/PLT COUNT & AUTO [id number] 01:20:00 Test Item Value Reference Range Interpretation Comments WHITE BLOOD CELL COUNT (BEAKER) 21.0 K/ L 3.5-10.5 H (test code = 775) RED BLOOD CELL COUNT (BEAKER) 3.83 M/ L 3.93-5.22 L (test code = 761) HEMOGLOBIN (BEAKER) (test code = 8.4 GM/DL 11.2-15.7 L 410) HEMATOCRIT (BEAKER) (test code = 28.3 % 34.1-44.9 L 411) MEAN CORPUSCULAR VOLUME (BEAKER) 73.9 fL 79.4-94.8 L (test code = 753) MEAN CORPUSCULAR HEMOGLOBIN 21.9 pg 25.6-32.2 L (BEAKER) (test code = 751) MEAN CORPUSCULAR HEMOGLOBIN CONC 29.7 GM/DL 32.2-35.5 L (BEAKER) (test code = 752) RED CELL DISTRIBUTION WIDTH 20.3 % 11.7-14.4 H (BEAKER) (test code = 412) PLATELET COUNT (BEAKER) (test 398 K/CU MM 150-450 code = 756) MEAN PLATELET VOLUME (BEAKER) 10.2 fL 9.4-12.3 (test code = 754) NUCLEATED RED BLOOD CELLS 0 /100 WBC 0-0 (BEAKER) (test code = 413) NEUTROPHILS RELATIVE PERCENT 87 % (BEAKER) (test code = 429) LYMPHOCYTES RELATIVE PERCENT 6 % (BEAKER) (test code = 430) MONOCYTES RELATIVE PERCENT 6 % (BEAKER) (test code = 431) EOSINOPHILS RELATIVE PERCENT 1 % (BEAKER) (test code = 432) BASOPHILS RELATIVE PERCENT 0 % (BEAKER) (test code = 437) NEUTROPHILS ABSOLUTE COUNT 18.34 K/ L 1.56-6.13 H (BEAKER) (test code = 670) LYMPHOCYTES ABSOLUTE COUNT 1.15 K/ L 1.18-3.74 L (BEAKER) (test code = 414) MONOCYTES ABSOLUTE COUNT (BEAKER) 1.21 K/ L 0.24-0.36 H (test code = 415) EOSINOPHILS ABSOLUTE COUNT 0.13 K/ L 0.04-0.36 (BEAKER) (test code = 416) BASOPHILS ABSOLUTE COUNT (BEAKER) 0.06 K/ L 0.01-0.08 (test code = 417) IMMATURE GRANULOCYTES-RELATIVE 1 % 0-1 PERCENT (BEAKER) (test code = 2801) CT Abd Renal Protocol w/wo IV contrast [id number] 11:17:00Study: Abd Renal Protocol w/wo IV contrast CT Clinical Indication: - PyelonephritisComparison: CT abdomen and pelvis from 04/12/2018TECHNIQUE: Multiple axial CT images of the abdomen/pelvis were acquired beforeand after the administration of intravenous contrast. Multiplanar reformattedimages were pe rformed. Renal mass protocol was utilized.DLP= 1273.8 mGy-cmFINDINGS: Limited views of the lung bases show a moderate-sized left pleuraleffusion with small bore chest tube in position.Subcentimeter gallstones are seen. Liver, pancreas, spleen, and adrenal glandsare unremarkable. No intrahepatic or extrahepatic biliary duct dilatation isseen. Previously noted left-sided percutaneous nephrostomy catheter is nolonger seen. No hydronephrosis or perinephric stranding is seen. Corticalscarring throughoutthe right kidney is noted. Calcified stones throughout theright kidney are again seen with largest me asuring 1.7 cm in the inferior poleof the right kidney. No filling defects are noted throughout the opacifiedportions of the renal collecting systems or ureters on the delayed excretoryphase images. Stable changes of cystectomy and ileal conduit surgery are againnoted. Visualized uterus is unremarkable. Vaginal pessary is seen.Stable changes of left lower quadrant colostomy formation are again noted.Theappendix is unremarkable. No free air, free fluid, or pathologic adenopathy isseen.Severe diastasis of the anterior abdominal wall fascia is again seen. 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 Severe right hipdysplasia is noted. IMPRESSION:1. Interval removal of left-sided percutaneous nephrostomy catheter.2. No renal collecting system obstruction.3. Stable nonobstructive right nephrolithiasis.4. Moderate-sized left pleural effusion.SL: [id number]--Mzcl by: Faisal Calvert MDDictated Date/time: 06/02/18 12:50Electronically Signed by: Faisal Calvert MD 06/02/1813:00FINAL REPORTUnO[facility][H] C Urine Transplant 2018-05-30 16:33:01 Test Item Value Reference Range Interpretation Comments ORGANISM (test code Escherichia = 699-9) coliEnterococcus Species FINAL REPORT (test >100,000 CFU/mL code = FINAL Escherichia coli 50,000 - REPORT) 100,000 CFU/mL Enterococcus Species .<10,000 CFU/mL Skin Raine [facility][H] [id number] 16:33:01 Test Item Value Reference Range Interpretation Comments ORGANISM (test code = 699-9) Escherichia coli Amikacin (test code = - S Amikacin) Ampicillin (test code = - S Ampicillin) Ampicillin/Sulbactam (test - S code = Ampicillin/Sulbactam) Cefazolin (test code = - S Cefazolin) Ceftriaxone (test code = - S Ceftriaxone) Ciprofloxacin (test code = - S Ciprofloxacin) Cefepime (test code = - S Cefepime) ESBL Confirmation (test code - = ESBL Confirmation) Gentamicin (test code = - S Gentamicin) Levofloxacin (test code = - S Levofloxacin) Nitrofurantoin (test code = - S Nitrofurantoin) Piperacillin/Tazobactam - S (test code = Piperacillin/Tazobactam) Trimethoprim/Sulfamethoxazol - S e (test code = Trimethoprim/Sulfamethoxazol e) Tobramycin (test code = - S Tobramycin) Cefuroxime (test code = - S Cefuroxime) Meropenem (test code = - S Meropenem) Tetracycline (test code = - S Tetracycline) [facility][H] [id number] 16:33:01 Test Item Value Reference Range Interpretation Comments ORGANISM (test code = Enterococcus 699-9) Species Ampicillin (test code - S = Ampicillin) Levofloxacin (test - R code = Levofloxacin) Nitrofurantoin (test - S code = Nitrofurantoin) Tetracycline (test - R code = Tetracycline) Vancomycin (test code SEE NOTES S S= Roxanne ceptible, = Vancomycin) R= Resistant, I= Intermediate, N/A= Not Applicable [facility][H] Culture: Wound/Abscess w/Gram [id number] 16:33:01 Test Item Value Reference Range Interpretation Comments Gram St (test code Moderate WBC's Moderate = Gram St) Gram Negative Rods Moderate Gram Positive Cocci InClusters ORGANISM (test code Escherichia = 699-9) coliEnterococcus SpeciesProteus vulgaris FINAL REPORT (test Many Escherichia coli Many code = FINAL Enterococcus Species REPORT) Moderate Proteus vulgaris [facility][H] [id number] 16:33:01 Test Item Value Reference Range Interpretation Comments ORGANISM (test code = 699-9) Escherichia coli Amikacin (test code = <=8 S Amikacin) Ampicillin (test code = 4 S Ampicillin) Ampicillin/Sulbactam (test <=4/2 S code = Ampicillin/Sulbactam) Cefazolin (test code = <=2 S Cefazolin) Cefepime (test code = <=2 S Cefepime) Ceftriaxone (test code = <=1 S Ceftriaxone) Ciprofloxacin (test code = <=0.5 S Ciprofloxacin) Gentamicin (test code = <=1 S Gentamicin) Levofloxacin (test code = <=1 S Levofloxacin) Meropenem (test code = <=1 S Meropenem) Piperacillin/Tazobactam <=8 S (test code = Piperacillin/Tazobactam) Tetracycline (test code = <=2 S Tetracycline) Tobramycin (test code = <=2 S Tobramycin) Trimethoprim/Sulfamethoxazol <=0.5/9.5 S e (test code = Trimethoprim/Sulfamethoxazol e) [facility][H] [id number] 16:33:01 Test Item Value Reference Range Interpretation Comments ORGANISM (test code = Enterococcus Species 699-9) Ampicillin (test code = <=2 S Ampicillin) Vancomycin (test code = 2 S Vancomycin) [facility][H] [id number] 16:33:01 Test Item Value Reference Range Interpretation Comments ORGANISM (test code = Proteus vulgaris 699-9) Amikacin (test code = <=8 S Amikacin) Ampicillin (test code >16 R = Ampicillin) Ampicillin/Sulbactam 8/4 S (test code = Ampicillin/Sulbactam) Cefepime (test code = <=2 S Cefepime) Ceftriaxone (test <=1 S code = Ceftriaxone) Ciprofloxacin (test <=0.5 S code = Ciprofloxacin) Gentamicin (test code <=1 S = Gentamicin) Levofloxacin (test <=1 S code = Levofloxacin) Meropenem (test code <=1 S = Meropenem) Piperacillin/Tazobact <=8 S am (test code = Piperacillin/Tazobact am) Tetracycline (test 8 I code = Tetracycline) Tobramycin (test code <=2 S = Tobramycin) Trimethoprim/Sulfamet 2/38 S S= Roxanne ceptible, hoxazole (test code = R= Res istant, I= Trimethoprim/Sulfamet Interm ediate, hoxazole) N/A= Not Applicable [facility]] CALCIUM, [id number] 13:50:01 Test Item Value Reference Range Interpretation Comments Ca Ion Serum (test code = 1994-) 1.28 mmol/L 1.00-1.38 Ca Norm Serum (test code = Ca 1.28 mmol/L 1.00-1.38 Norm Serum) [facility]] BUN/CREATININE RATIO [id number] 13:50:01 Test Item Value Reference Range Interpretation Comments Blood Urea 12 mg/dl 7-22 Nitrogen (test code = 3094-0) Creatinine Lvl 0.70 mg/dl 0.50-1.40 (test code = 2160-0) eGFR (test code = 110 The eGFR i s calculated 01239-3) {ML/MIN/1.7} using the CKD-E PI formula. In mos t young, healthyindividu als the eGFR will be >9 0 mL/min/1.73m2. The eGFR declines with a ge. AneGFR of 60-89 may be normal in some population s, particularly th e elderly, forwhom the CKD -EPI formula has not been extensively efrain idated. Use of the eGFR isnot recommended in the following populations:Ind ividuals with unstable c reatinine concentrations, including patient s and those with seri ous co-morbid conditions.Larissa ents with extremes in mus alex mass or diet.The cassandra a above are obtained fr om the National Kidney Disease Education Progr am(NKDEP) which laron bennett recommends that when the eGFR is used in patientswith ex tremes of body mass index for purposes of xavier g dosing, the eGFR should be multiplied by t he estimated BMI. [facility][] [id number] 13:50:01 Test Item Value Reference Range Interpretation Comments Calcium Level Total (test code = 9.5 mg/dl 8.5-10.5 71307-6) [facility]] PTH, INTACT (WITHOUT CALCIUM)2018-05-11 13:50:01 Test Item Value Reference Range Interpretation Comments Parathyroid Hormone Intact (test 64.7 pg/ml 18.4-80.1 code = 2731-8) [facility]] CBC (INCLUDES DIFF/PLT)2018-05-11 13:50:01 Test Item Value Reference Range Interpretation Comments WBC (test code = 9.3 {K/CMM} 3.7-10.4 6690-2) RBC (test code = 5.02 {M/CMM} 4.20-5.40 789-8) Hgb; Below Low 11.5 g/dl 12.0-16.0 Threshold (test code = 718-7) Hct; Below Low 35.7 % 36.0-48.0 Threshold (test code = 53186-1) MCV; Below Low 71.2 fL 80.0-98.0 Threshold (test code = 787-2) MCH; Below Low 22.9 pg 27.0-31.0 Threshold (test code = 785-6) MCHC (test code = 32.1 g/dl 32.0-36.0 786-4) RDW; Above High 22.8 % 11.5-14.5 Threshold (test code = 788-0) Platelet (test code See Note 133-450 Platelet s clumped in = 78021-7) EDTA, unable to estimate, kayleen st recollection in a bluetop tube wi th an order for "Blue Top Platelet Count" Mean Platelet 8.9 fL 7.4-10.4 Volume (test code = 34939-1) [facility]] [id number] 13:50:01 Test Item Value Reference Range Interpretation Comments Segmented Neutrophils (test code 63.0 % 45.0-75.0 = 09029-1) Monocytes (test code = 79413-5) 9.5 % 2.0-12.0 Lymphocytes (test code = 73142-7) 23.6 % 20.0-40.0 Eosinophils (test code = 30524-2) 3.4 % 0.0-4.0 Basophils (test code = 706-2) 0.5 % 0.0-1.0 Segs-Bands # (test code = 5.9 {K/CMM} 1.5-8.1 53879-5) Lymphocytes # (test code = 2.2 {K/CMM} 1.0-5.5 14938-3) Monocytes #; Above High Threshold 0.9 {K/CMM} 0.0-0.8 (test code = 51784-2) Eosinophils # (test code = 0.3 {K/CMM} 0.0-0.5 92638-6) Plt Morphology (test code = Plt Clumped Morphology) Anisocyte; Abnormal (test code = 1+ None Seen A 18566-4) Microcyte (test code = Microcyte) 2+ None Seen A [facility]] VITAMIN D, 25-HYDROXY, LC/[id number] 13:50:01 Test Item Value Reference Range Interpretation Comments Vitamin D, 25-OH, 33.5 ng/ml 30.0-100.0 Reference range is based Total (test code on recommen dations in the = Vitamin D, EndocrineSociet y Clinical 25-OH, Total) Practice Guide line (J Clin Endocrinol Nhjyl7017;96:19 11-1930) [facility]
[2020-01-23 17:01] LABS: Urine Bacteria LOADED /HPF (<20); Urine Culture Reflex Order REFLEXED; Urine RBC <5 /HPF (NONE SEEN)
[2020-01-23 17:28] LABS: Hematocrit 37.9 % (36.0-45.0); RBC Red Blood Cell Count 4.65 M/uL (3.86-4.86)
[2020-01-23 18:12] LABS: ALT/SGPT 21 U/L (12-78); AST/SGOT 11 U/L (15-37); Albumin 3.4 g/dL (3.4-5.0); Alkaline Phosphatase 60 U/L (45-117); BUN Blood Urea Nitrogen 21 mg/dL (7-18); Bicarbonate 22 mmol/L (21-32); Bilirubin Direct < 0.1 mg/dL (0-0.2); Bilirubin Total 0.2 mg/dL (0.2-1.0); Glucose Level 87 mg/dL (74-106); Potassium 3.8 mmol/L (3.5-5.1); Protein, Total 8.5 g/dL (6.4-8.2); Sodium Level 141 mmol/L (136-145)
[2020-01-23] MEDS ORDERED: LIDOCAINE 1% MPF 2 ML AMPULE ONE (18:50)
[2020-01-23] MEDS ORDERED: CEFTRIAXONE 1000 MG/VIAL ONE (18:50)
[2020-01-23 19:02] LABS: Anisocytosis 1+; Blood Morphology Comment NOTED (NOT SEEN); Platelet Estimate ADEQ
[2020-01-23] MEDS ORDERED: HYDROCODONE/APAP 10/325 TAB ONE (19:58)
[2020-01-23 20:46] LABS: Urine Blood TRACE (NEG); Urine Glucose NEGATIVE (NEG); Urine Protein 2+ (NEG); Urine pH 8.5 (5.0-7.0)
[2020-01-23 21:27] VITALS: O2SAT 100
[2020-01-23 21:28] VITALS: BP 128/93; TEMP 98.5
--- NOTE | 2020-01-29 13:39 | ER ---
Nurse's Notes [facility] Name: Leila Aquino Age: 39 yrs Sex: Female : 1980 Arrival Date: 01/23/2020 Time: 15:56 Bed 13 Private MD: Diagnosis: Urinary tract infection, site not specified Presentation: 01/22 15:57 Chief complaint: EMS states: MUCUS IN R NEPHROSTOMY TUBE. Coronavirus screen: Proceed bp with normal triage. Ebola Screen: No symptoms or risks identified at this time. Initial Sepsis Screen: Does the patient meet any 2 criteria? HR > 90 bpm. No. Patient's initial sepsis screen is negative. Does the patient have a suspected source of infection? Yes: Dysuria/Frequency/Urgency/UTI. Risk Assessment: Do you want to hurt yourself or someone else? Patient reports no desire to harm self or others. Onset of symptoms is unknown. 15:57 Method Of Arrival: EMS: [facility] bp 15:57 Acuity: PAYTON 3 bp Triage Assessment: 16:00 General: Appears in no apparent distress. comfortable, Behavior is calm, cooperative, bp appropriate for age. Pain: Denies pain. EENT: No deficits noted. Neuro: No deficits noted. Cardiovascular: No deficits noted. Respiratory: No deficits noted. GI: No signs and/or symptoms were reported involving the gastrointestinal system. : Reports NEPHROSTOMY INFECTION. Derm: No deficits noted. Musculoskeletal: No deficits noted. 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 - Social history:: Smoking status: Patient denies any tobacco usage or history of. Screenin:00 Abuse screen: Denies threats or abuse. Denies injuries from another. Nutritional bp screening: No deficits noted. Tuberculosis screening: No symptoms or risk factors identified. Fall Risk None identified. Assessment: 16:00 General: SEE TRIAGE NOTE. bp 17:00 Reassessment: BLOOD OBTAINED BY PHLEBOTOMY. NO PIV ATTAINED. PROVIDER AWARE. bp 18:00 Reassessment: LABS IN PROCESS. NO S/S ACUTE DISTRESS AT THIS TIME. bp 19:00 Reassessment: Patient appears in no apparent distress at this time. Patient and/or jb4 family updated on plan of care and expected duration. Pain level reassessed. Patient is alert, oriented x 3, equal unlabored respirations, skin warm/dry/pink. 19:55 Reassessment: patient awaiting for ambulance for dc. mg2 20:55 Reassessment: Patient appears in no apparent distress at this time. Patient and/or jb4 family updated on plan of care and expected duration. Pain level reassessed. Patient is alert, oriented x 3, equal unlabored respirations, skin warm/dry/pink. D/c pending arrival of EMS. Vital Signs: 15:57 BP 128 / 86; Pulse 107; Resp 16; Temp 98.9; Pulse Ox 99% ; bp 18:00 BP 128 / 90; Pulse 87; Resp 16; Pulse Ox 99% ; bp 19:54 BP 144 / 97; Pulse 80; Resp 18; Temp 98.8; Pulse Ox 100% on R/A; mg2 20:56 BP 128 / 93; Pulse 88; Resp 16; Temp 98.5(O); Pulse Ox 100% on R/A; jb4 ED Course: 15:56 Patient arrived in ED. bp 15:58 Triage completed. bp 16:00 Arm band placed on. bp 16:00 Patient has correct armband on for positive identification. Bed in low position. Call bp light in reach. Side rails up X2. 16:02 Gorge Fuentes NP is PHCP. pm1 16:02 Pino Hwang MD is Attending Physician. pm1 16:21 Jean Freeman, RN is Primary Nurse. bp 19:24 Primary Nurse role handed off by Jean Freeman, RAJNI jb4 19:24 Maximo Hawkins, RAJNI is Primary Nurse. jb4 21:00 No provider procedures requiring assistance completed. Patient did not have IV access jb4 during this emergency room visit. Administered Medications: 18:30 Drug: Rocephin (cefTRIAXone) 1 grams Route: IM; Site: right deltoid; bp 19:54 Follow up: Response: No adverse reaction mg2 19:54 Drug: Wren 10 mg-325 mg 1 tabs Route: PO; mg2 19:54 Follow up: Response: No adverse reaction; Medication administered at discharge. mg2 Outcome: 18:44 Discharge ordered by . pm1 19:55 Discharged to home mg2 19:55 Condition: stable 19:55 Discharge instructions given to patient, Instructed on discharge instructions, follow up and referral plans. medication usage, Demonstrated understanding of instructions, follow-up care, medications, Prescriptions given X 1. 21:19 Patient left the ED. jb4 Addendum: 01/28/2020 08:15 Addendum: Culture Results: Positive urine culture. No further action required. Other: e b Follow up with PCP/ Patient likely colonizer due to chronic indwelling catheters. . Signatures: Gorge Fuentes NP RAG PRODUCTION WORKER pm1 Maximo Hawkins, RN RN jb4 Jean Freeman RN RN Lilliana Holman Michele, RN RN mg2
--- NOTE | 2020-01-29 13:39 | EDPHYS ---
Physician Documentation [facility] Name: Leila Aquino Age: 39 yrs Sex: Female : 1980 Arrival Date: 01/23/2020 Time: 15:56 Bed 13 Private MD: ED Physician Pino Hwang HPI: 01/22 16:25 This 39 yrs old Black Female presents to ER via EMS with complaints of NEPHROSTOMY pm1 PROBLEM. 16:25 The patient presents with mucus present in the drainage tube from nephrostomy . Onset: pm1 The symptoms/episode began/occurred today. Associated signs and symptoms: Pertinent negatives: fever, nausea, vomiting, pain. The patient has experienced similar episodes in the past, patient with a history of multiple urinary tract infections. Patient was evaluated by her home health nurse today and she noticed that there was some mucus in the drainage tube for her right sided nephrostomy. The nurse recommended that the patient go to the ER for further evaluation. 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 - Social history:: Smoking status: Patient denies any tobacco usage or history of. ROS: 16:25 Negative for pelvic pain, flank pain. pm1 16:25 Constitutional: Negative for fever, chills, and weight loss, Cardiovascular: Negative for chest pain, palpitations, and edema, Respiratory: Negative for shortness of breath, cough, wheezing, and pleuritic chest pain, Abdomen/GI: Negative for abdominal pain, nausea, vomiting, diarrhea, and constipation, Back: Negative for injury and pain, MS/Extremity: Negative for injury and deformity, Skin: Negative for injury, rash, and discoloration, Neuro: Negative for headache, weakness, numbness, tingling, and seizure. Exam: 16:25 Constitutional: This is a well developed, well nourished patient who is awake, alert, pm1 and in no acute distress. Head/Face: Normocephalic, atraumatic. Neck: Trachea midline, no thyromegaly or masses palpated, and no cervical lymphadenopathy. Supple, full range of motion without nuchal rigidity, or vertebral point tenderness. No Meningismus. Chest/axilla: Normal chest wall appearance and motion. Nontender with no deformity. No lesions are appreciated. 16:25 Skin: Warm, dry with normal turgor. Normal color with no rashes, no lesions, and no evidence of cellulitis. MS/ Extremity: Pulses equal, no cyanosis. Neurovascular intact. Full, normal range of motion. 16:25 Cardiovascular: Exam negative for acute changes, Rate: normal, Rhythm: regular, Pulses: no pulse deficits are appreciated. 16:25 Respiratory: Exam negative for acute changes, respiratory distress, shortness of breath. 16:25 Abdomen/GI: Exam negative for acute changes, Inspection: colostomy present , Palpation: abdomen is soft and non-tender, in all quadrants. 16:25 Back: pain, is absent, nephrostomy site without any signs of infection or drainage. 16:25 Neuro: Orientation: is normal, Mentation: is normal. Vital Signs: 15:57 BP 128 / 86; Pulse 107; Resp 16; Temp 98.9; Pulse Ox 99% ; bp 18:00 BP 128 / 90; Pulse 87; Resp 16; Pulse Ox 99% ; bp 19:54 BP 144 / 97; Pulse 80; Resp 18; Temp 98.8; Pulse Ox 100% on R/A; mg2 20:56 BP 128 / 93; Pulse 88; Resp 16; Temp 98.5(O); Pulse Ox 100% on R/A; jb4 MDM: 16:09 Patient medically screened. pm1 18:07 Data reviewed: vital signs. Data interpreted: Pulse oximetry: on room air is 99 %. pm1 Interpretation: normal. 18:43 Counseling: I had a detailed discussion with the patient and/or guardian regarding: the pm1 historical points, exam findings, and any diagnostic results supporting the discharge/admit diagnosis, lab results, the need for outpatient follow up, to return to the emergency department if symptoms worsen or persist or if there are any questions or concerns that arise at home. 01/22 16:13 Order name: Basic Metabolic Panel; Complete Time: 18:15 pm1 05/26 16:13 Order name: CBC with Diff; Complete Time: 19:05 pm1 01/22 16:13 Order name: Hepatic Function; Complete Time: 18:15 pm1 01/22 16:13 Order name: Urine Microscopic Only; Complete Time: 17:37 pm1 01/22 16:53 Order name: Urine Dipstick--Ancillary (enter results); Complete Time: 01:18 eb 01/22 17:04 Order name: Urine Culture EDNJ 01/22 16:13 Order name: IV Saline Lock; Complete Time: 17:21 pm1 01/22 16:13 Order name: Labs collected and sent; Complete Time: 17:20 pm1 01/22 16:13 Order name: Urine Dipstick-Ancillary (obtain specimen); Complete Time: 17:20 pm1 01/22 17:32 Order name: Manual Differential; Complete Time: 19:05 EDMS Administered Medications: 18:30 Drug: Rocephin (cefTRIAXone) 1 grams Route: IM; Site: right deltoid; bp 19:54 Follow up: Response: No adverse reaction mg2 19:54 Drug: Bulverde 10 mg-325 mg 1 tabs Route: PO; mg2 19:54 Follow up: Response: No adverse reaction; Medication administered at discharge. mg2 Disposition: 01/23/20 18:44 Discharged to Home. Impression: Urinary tract infection, site not specified. - Condition is Stable. - Discharge Instructions: Urinary Tract Infection, Adult. - Prescriptions for cefpodoxime 200 mg Oral Tablet - take 1 tablet by ORAL route every 12 hours for 10 days with food; 20 tablet. - Medication Reconciliation Form, Thank You Letter, Antibiotic Education, Prescription Opioid Use, SBAR form form. - Follow up: Emergency Department; When: As needed; Reason: Worsening of condition. Follow up: Private Physician; When: 2 - 3 days; Reason: Recheck today's complaints, Continuance of care, Re-evaluation by your physician. - Problem is new. - Symptoms have improved. Signatures: Dispatcher [employer] EDMS Gorge Fuentes, PRESSURE TESTING TECHNICIAN PRESSURE TESTING TECHNICIAN pm1 Maximo Hawkins, RN RN jb4 Jean Freeman RN RN bp Christ Tan RN RN mg2 Corrections: (The following items were deleted from the chart) 21:19 18:44 01/23/2020 18:44 Discharged to Home. Impression: Urinary tract infection, site jb4 not specified. Condition is Stable. Forms are Medication Reconciliation Form, Thank You Letter, Antibiotic Education, Prescription Opioid Use. Follow up: Emergency Department; When: As needed; Reason: Worsening of condition. Follow up: Private Physician; When: 2 - 3 days; Reason: Recheck today's complaints, Continuance of care, Re-evaluation by your physician. Problem is new. Symptoms have improved. pm1
== END 2020-01-23 21:19 | disposition home or self-care (01) ==
LOC: ER 15:53
DX: N39.0 Urinary tract infection, site not specified (principal); I10 Essential (primary) hypertension; Z88.1 Allergy status to other antibiotic agents; Z88.5 Allergy status to narcotic agent; Z88.8 Allergy status to other drugs, medicaments and biological substances; Z91.040 Latex allergy status
CPT/HCPCS: 87088; 85025; 87086; 80048; 36415; 80076; 87077 ×3; 87186 ×3; 96372; 99283; J2001; 81003; 81015

== ENCOUNTER 2020-03-07 16:33 | Emergency (ER) | payer OTHER ==
[2020-03-07] MEDS ORDERED: NA CHLORIDE 0.9% 500 ML ONE (18:01)
[2020-03-07] MEDS ORDERED: ONDANSETRON 4 MG/2 ML VIAL ONE (18:01)
[2020-03-07] MEDS ORDERED: MEPERIDINE HCL 50 MG/ML ONE ×2 (18:07→20:18)
[2020-03-07 18:56] LABS: Absolute Lymphocytes (CBC) 1.8 K/uL (0.7-4.9); Basophils % 0.8 % (0-1.3); Hematocrit 41.2 % (36.0-45.0); MPV 7.4 fL (7.6-11.3); RBC Red Blood Cell Count 4.84 M/uL (3.86-4.86)
[2020-03-07 19:10] LABS: ALT/SGPT 32 U/L (12-78); AST/SGOT 24 U/L (15-37); Albumin 3.7 g/dL (3.4-5.0); Alkaline Phosphatase 63 U/L (45-117); BUN Blood Urea Nitrogen 15 mg/dL (7-18); Bicarbonate 21 mmol/L (21-32); Bilirubin Direct < 0.1 mg/dL (0-0.2); Bilirubin Total 0.3 mg/dL (0.2-1.0); Glucose Level 92 mg/dL (74-106); Potassium 4.1 mmol/L (3.5-5.1); Protein, Total 9.1 g/dL (6.4-8.2); Sodium Level 139 mmol/L (136-145)
[2020-03-07 19:40] LABS: Blood Morphology Comment NOT SEEN (NOT SEEN); Platelet Estimate ADEQ; Urine White Blood Cell Casts OK
--- NOTE | 2020-03-07 19:46 | RAD REPORT ---
EXAM DESCRIPTION: CTAbdomen Pelvis W Contrast - 03/07/2020 7:12 pm CLINICAL HISTORY: Abdominal pain. PAIN COMPARISON: Abdomen Pelvis W Contrast dated 05/01/2019; Abdomen Pelvis W Contrast dated 09/23/2017; Abdomen Pelvis W Contrast dated 03/25/2017; Abdomen Pelvis W Contrast dated 11/13/2016; Stone Prot ocol dated 10/20/2019 TECHNIQUE: Biphasic CT imaging of the abdomen and pelvis was performed with 100 ml non-ionic IV cont rast. All CT scans are performed using dose optimization technique as appropriate and may include automated exposure control or mA/KV adjustment according to patient size. FINDINGS: Chronic left pleural effusion is again noted with shunt tube in place. The liver demonstrates no focal mass or biliary dilatation. The spleen, adrenal glands and left kidne y are normal. Right-sided percutaneous nephrostomy is present along with nephroureteral stent which extends externa lly through a right sided urinary diversion. There is a 9 mm stone along the course of the stent in t he proximal right ureter, appearing similar in position to comparative study. No hydronephrosis. No bowel obstruction, free air, free fluid or abscess. Fibroid uterus is seen with IUD in place. The appendix is normal. No evidence of significant lymphadenopathy. Spina bifida changes are present. Left lower quadrant ostomy is present. Soft tissue ulceration/decub itus ulceration inferiorly involving the soft tissues of the lower pelvis. IMPRESSION: 9 mm stone proximal right ureter noted. No hydronephrosis is seen. Right-sided percutane ous nephrostomy tube as well as a nephroureteral stent exiting a right lower quadrant urinary diversi on noted.
--- OUTSIDE RECORDS SUMMARY | 2020-03-07 20:06 | XMS REPORT | Clinical Summary ---
:1980 Author Organization [facility] Address [address] [place] [address] Care Team Providers Name Role Phone Luna [...] Not on file Implants Implanted Type Area Deputy Chief Counsel Device Shelf Model / Identifier Expiration Date Ser ial / Lot Matrix Floseal Hemo W/O [id number] - [id number] Cement/Fi NAVARRO:[id number] / Implanted: Qty: 1 on 06/28/2018 by Hao Welch MD ller/Ramila / kalpana [id number] Results Not on fileafter 03/07/2019 Insurance Payer Benefit Plan / Group Subscriber ID Type Phone A ddress MEDICARE MEDICARE A B xxxxxxxxxxx Medicare MEDICAID - MEDICAID MEDICAID [employer] xxxxxxxxx Medicaid MGD CARE Non-Contracted Advance Directives For more information, please contact:[facility] [place], [place] [phone] Code Status Date Activated Date Inactivated Comments Full Code 06/24/2018 12:08 PM This code status was determined by: Patient Full Code 06/10/2018 10:09 PM 06/13/2018 4:34 PM This code status was determined by: Patient
--- OUTSIDE RECORDS SUMMARY | 2020-03-07 20:20 | XMS REPORT | Continuity of Care Document ---
:1980 Author Organization [employer] Care Team Providers Name Role Phone [facility] zanda Unavailable Un available Problems Problem Status Onset Classification Date Comments Sourc e Date Reported CALCULUS OF KIDNEY Active 02/08/[address] R HYDRONEPHROSIS Active 10/20/[address] N20.0 - CALCULUS Active 10/10/19 [facility] [address] [place] [address] SEPSIS Active 08/24/[address] ACUTE Active 08/24/20 [facility] SEPSIS/KIDNEY 19 Medica l STONE Center Displacement of 02/01/20 02/02/2019 [facility] urinary stent, 19 Medic al initial encounter Ce nter Pseudomonas Active 02/01/20 Problem 10/27/2019 Urine, 01/31/2019 [facility] (organism) 19 Problem added by Sommer clayton Expert. [facility], OPID [place] HYDROEPHROSIS RT Active 01/31/20 [facility] KIDNEY [address] [place] [address] OTHER Active 01/23/[address] NEPHROSTOMY TUBE Active 01/23/20 [facility] PULLED OUT [address] [place] [address] NEPHROSTOMY Active 01/23/20 [facility] DISLODGEMENT [address] [place] [address] BEDDED OUTPATIENT/ Active 12/30/19 [facility] PLEASE CONVERT RT 19 Me dical PCN Center IRREGULAR Active 12/24/19 [facility] MENSTRUATION, 19 Medica l UNSPECIFIED Center MULTIPLE URINAL Active 12/14/19 [place]ULL [address] [place] [address] KIDNEY STONES Active 12/14/19 [facility] as [address] [place] [address] R58 - HEMORRHAGE, Active 11/15/19 OPID NOT ELSEWHERE CLAS 19 H [place] 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 840.1.11 3883.3.615 .134, KRYSTIN Schneider KRYSTIN Mireles KIDNEY STONE Active 02/29/20 [place] [address] [place] [address] Epigastric pain 11/14/19 02/12/[address] Vomiting, 11/07/19 02/12/2018 [facility] unspecified [address] [place] [address] VOMITING Active 11/07/[address] SMALL BOWEL Active 11/14/19 [facility] OBSTRUCTION [address] [place] [address] Center Pain (finding) Active 09/18/19 Problem 10/27/2019 [facility],2.1 6.840.1.11 [id number] .134, KRYSTIN Schneider, KRYSTIN Mireles Blood coagulation Resolved Problem 10/27/2019 [facility] disorder Medical (disorder) Center,2. 1 6.840.1.11 [id number] .134,SYED Schneider KRYSTIN Mireles Colostomy Active Problem 10/27/2019 [facility] (procedure) Medical Center,2.1 6.840.1.11 3883.3.615 .134,SYED Schneider KRYSTIN Mireles Colostomy present Resolved Problem 10/27/2019 [facility] (finding) Medical Center,2.1 6.840.1.11 3883.3.615 .134,SYED Schneider KRYSTIN Mireles Congenital Active Problem 10/27/2019 [facility] hydrocephalus Medica l (disorder) Center,2. 1 6.840.1.11 3883.3.615 .134,SYED Falk Hypertensive Resolved Problem 10/27/2019 [place] disorder, systemic M edical arterial Center,2.1 (disorder) 6.840.1.1 1 3883.3.615 .134,SYED Schneider,SYED Mireles Depressive Resolved Problem 10/27/2019 [facility] disorder Medical (disorder) Center,2. 1 6.840.1.11 3883.3.615 .134, KRYSTIN Schneider, [place] Nephrostomy Active Problem 10/27/2019 [place] (procedure) Medical Center,2.1 6.840.1.11 3883.3.615 .134, KRYSTIN Schneider, [place] Pleural effusion Active Problem 10/27/2019 [facility] (disorder) [facility],2.1 6.840.1.11 3883.3.615 .134, KRYSTIN Schneider, [place] Pneumothorax Resolved Problem 10/27/2019 [facility] as (disorder) Medical Center,2.1 6.840.1.11 3883.3.615 .134, KRYSTIN Schneider, [place] Spina bifida Resolved Problem 10/27/2019 [facility] (disorder) Medical Center,2.1 6.840.1.11 3883.3.615 .134, KRYSTIN Schneider, [place] Systemic infection Resolved Problem 10/27/2019 [facility] (disorder) [facility],2.1 6.840.1.11 3883.3.615 .134, KRYSTIN Schneider, [place] Calculus of kidney 12/20/2018 [facility],2.1 6.840.1.11 3883.3.615 .134 Pleural effusion, 12/20/2018 M Isabel [place] not elsewhere Medica l classified Center,2. 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 coli] Center Severe sepsis 11/07/2018 [place] without septic Medic al shock Center Functional 11/07/2018 [facility] quadriplegia [facility] Unspecified spina 11/07/2018 [facility] bifida with Medical hydrocephalus Center Acute 11/07/2018 [facility] posthemorrhagic [facility] anemia Center Acute kidney 11/07/2018 [place] failure, Medical unspecified Center Personal history 11/07/2018 [facility] of other venous [facility] thrombosis and Cente r embolism Patient's 11/07/2018 [facility] noncompliance with M edical other medical Center treatment and regimen Attention-deficit 11/07/2018 [facility] hyperactivity Medica l disorder, Center unspecified type Presence of 11/07/[place] cerebrospinal Medica l fluid drainage Cente r device Patient's other 11/07/2018 [facility] noncompliance with edical medication regimen C enter Hypoxemia 11/07/2018 [facility] Enterococcus as 11/07/2018 [facility] the cause of Medical diseases Center classified elsewhere Pseudomonas 11/07/2018 [place] (aeruginosa) Medical (mallei) Center (pseudomallei) as the cause of diseases classified elsewhere Anemia in other 11/07/2018 [facility] chronic diseases Med ical classified Center elsewhere 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 C enter Shortness of 11/07/2018 [place] as breath Medical Center OTHER INTESTINAL Active [facility] OBSTRUCTION Medical [place] URINARY TRACT Active [place] as INFECTION, SITE [facility] NOT SPECIF Center CALCULUS OF URETER Active [facility] OTHER ARTIFICIAL Active [facility] OPENINGS OF Medical URINARY TRA Center SEPSIS, Active [facility] UNSPECIFIED Medical ORGANISM Center CALCULUS OF KIDNEY Active [facility] Medications Medication Details Route Status Patient Ordering Order Source Instructions Provider Date remove patch Notes: Remove Inactive 10/26[facility] [place] patch 12 hours 2020 Medical after Center application each day. Ondansetron 4 MG 4 mg = 1 tab, Active 10/25[facility] Oral Tablet PO, BID, # 10 2020 Medica l [Zofran] tab, 0 Center Refill(s), Pharmacy: [id number] tramadol 100 mg = 2 tab, Active 10/25[facility] [place] hydrochloride 50 PO, Daily, PRN 2020 Medical MG Oral Tablet Pain Score 7-10, Center X 7 day, # 14 tab, 0 Refill(s) sennosides, NURSING HOME 17.2 mg = 2 tab, Active [place] 8.6 MG Oral PO, BID, X 30 2019 Medica l Tablet day, # 120 tab, Center 0 Refill(s), Pharmacy: [facility] #[id number] amoxicillin 875 875 mg = 1 tab, Active [place] mg oral tablet PO, Q12H, X 10 2019 Me dical day, # 20 tab, 0 Center Refill(s), Pharmacy: [facility][id number] Lidocaine 0.05 Notes: Apply Inactive [place] MG/MG Transdermal only once for up 2019 Medical Patch to 12 hours in a Center 24-hour period (12 hours on and 12 hours off). (Same as: Lidoderm) "Remove old patch before application of new patch" Tramadol Notes: Not to Inactive [place] exceed 2020 Medical 400mg/day. (Same Center As: Ultra) Tramadol 100 mg, Route: [place] PO, Drug form: 2019 Medical TAB, Q6H, Dosing Center Weight 74.091, kg, PRN Pain Score 4-6, Start date: 10/25/19 8:27:00 INCOME TAX RETURN PREPARER, Duration: 30 day, Stop date: 11/24/19 8:26:00 CDT Ondansetron Notes: (Same as: Inactive [place] Zofran) 2019 Medical MEDICATION WASTE Center Product Size: 4 mg Product Wasted: ___ mg Hydralazine 10 mg, Route: [place]active [place] IVP, Q20Min, 2019 Medical Dosing Weight Center 74.091, kg, PRN Elevated BP, Start date: 10/24/19 19:57:00 INCOME TAX RETURN PREPARER, Duration: 2 doses or times, Stop date: Limited # of times Labetalol 10 mg, Route: [place] IVP, Q5Min, 2019 Medical Dosing Weight Center 74.091, kg, PRN Elevated BP, Start date: 10/24/19 19:57:00 INCOME TAX RETURN PREPARER, Duration: 5 doses or times, Stop date: Limited # of times Acetaminophen 1,000 mg, Route: Inactive [place] PO, Drug form: 2019 Medical TAB, ONCE, Center Dosing Weight 74.091, kg, PRN Pain Score 1-3, Start date: 10/24/19 19:57:00 INCOME TAX RETURN PREPARER Oxycodone 5 mg, Route: PO, Inactive [place] Hydrochloride 5 Drug form: TAB, 2019 Medical MG Oral Tablet Q4H, Dosing Ninfae r Weight 74.091, kg, PRN Pain Score 4-6, Start date: 10/24/19 19:57:00 INCOME TAX RETURN PREPARER, Duration: 30 day, Stop date: 11/23/19 19:56:00 CDT Fentanyl 25 microgram, Inactive [place] Route: IVP, 2019 Medical Q5Min, Dosing Center Weight 74.091, kg, PRN Pain Score 4-6, Priority: Routine, Start date: 10/24/19 19:57:00 INCOME TAX RETURN PREPARER, Duration: 4 doses or times, Stop date: Limited # of times Flumazenil 0.2 mg, Route: Inactive [place] IVP, PRN, Dosing 2020 Medical Weight 74.091, Center kg, PRN Benzodiazepine Reversal, Initial dose, Start date: 10/24/19 19:57:00 INCOME TAX RETURN PREPARER, Duration: 30 day, Stop date: 11/23/19 20:56:00 CDT Naloxone 0.4 mg, Route: [place] IVP, Q2MIN, 2020 Medical Dosing Weight Center 74.091, kg, PRN Narcotic Reversal, Start date: 10/24/19 19:57:00 INCOME TAX RETURN PREPARER, Duration: 8 doses or times, Stop date: Limited # of times Ondansetron 4 mg, Route: Inactive [place] as IVP, ONCE, 2020 Medical Dosing Weight Center 74.091, kg, PRN Nausea & Vomiting, Start date: 10/24/19 19:57:00 INCOME TAX RETURN PREPARER Ibuprofen Notes: (Same as: No Longer [place] Motrin) "Do Not Active 2019 Medical Crush" Give Center with food. Ampicillin Notes: (Same as: No Longer [place] Principen) Active 2019 Medical MEDICATION Center WASTE Product Size: 1000 mg Product Wasted: ___ mg Hydromorphone Notes: Same as Inactive [place] Dilaudid [address] [place] [address] Dilaudid Notes: Same as [place] Dilaudid [address] [place] [address] Ondansetron 2 Notes: (Same as: Inactive [place] MG/ML Injectable Zofran) 2019 edical Solution [Zofran] MEDICATION WASTE Center Product Size: 4 mg Product Wasted: ___ mg Potassium Notes: (Same as: Inactive [place] Chloride K-Dur 20) "Do 2019 Medical Not Crush" Give Center with food and full glass of water For patients unable to swallow tablet, dissolve in one half glass of water. Allow about 2 minutes for the tablets to disintegrate. Stir before giving to prepare slurry and administer. Please exclude Patient’s with feeding tube less than 14 Singaporean (Dobhoff, J-tube etc) and pediatric and patients. Yash packet 1 pkt, Route: Inactive [place] PO, Drug Form: 2019 Medical PWDR, Dosing Center Weight 74.091, kg, BID-Before Meals, Start date: 10/23/19 16:30:00 INCOME TAX RETURN PREPARER, Duration: 14 day, Stop date: 11/06/19 7:30:00 CDT Enoxaparin Notes: (Same as: Inactive [place] Lovenox) [address] [place] [address] Albuterol 0.83 Notes: SEE RT No Longer H [place] MG/ML Inhalant DOCUMENTATION Active 2019 Med ical Solution (Same as: [place] Proventil) ketOROLAC 15 4 days No Longer [place] mg/mL injectable MEDICATION WASTE Active 2019 Medical solution Product Center Size: 30 mg Product Wasted: ___ mg ketOROLAC 15 15 mg, Route: Inactive [place] mg/mL injectable IVP, Drug form: 2019 Medical solution INJ, ONCE, Center Dosing Weight 74.091, kg, Start date: 10/23/19 12:53:00 INCOME TAX RETURN PREPARER, Stop date: 10/23/19 12:53:00 INCOME TAX RETURN PREPARER Docusate Notes: (Same as: No Longer [place] Colace) (Do Not Active 2019 Medical Crush) [facility] Notes: (Same as: No Longer 10/23 [place] Senokot) Active [address] [place] [address] Bisacodyl Notes: (Same As: No Longer [facility] Dulcolax, Active 2019 [facility] Correctol) (Do Center Not Crush) "Do Not Crush" Bisacodyl 10 mg, Route: [place] PO, Drug form: 2019 [facility] ECTAB, Daily, Center Dosing Weight 74.091, kg, PRN Constipation, Start date: 10/23/19 8:51:00 INCOME TAX RETURN PREPARER, Duration: 30 day, Stop date: 11/22/19 8:50:00 CDT Potassium Notes: (Same as: Inactive [place] Chloride K-Dur 20) "Do [facility] Medical Not Crush" Give Center with food and full glass of water For patients unable to swallow tablet, dissolve in one half glass of water. Allow about 2 minutes for the tablets to disintegrate. Stir before giving to prepare slurry and administer. Please exclude Patient’s with feeding tube less than 14 Singaporean (Dobhoff, J-tube etc) and pediatric and patients. ketOROLAC 15 4 days. No Longer [facility] mg/mL injectable Active [address] [place] [address] solution [place] Methocarbamol Notes: (Same No Longer [facility] as:Robaxin) [address] Acetaminophen 325 Notes: (Same as: No Longer [facility] MG / Hydrocodone [place] 325/5) Do Active 2019 [facility] Bitartrate 5 MG not exceed Cente r Oral Tablet 4gm/day of [[place] 5/325] acetaminophen. Acetaminophen 325 Notes: Do not No Longer [facility] MG / Hydrocodone exceed 4gm/day Active 2019 [facility] Bitartrate 10 MG of Center Oral Tablet acetaminophen. [[place] 10/325] (Same as: [place] 325/10) Dilaudid Notes: Same as Inactive [place] Dilaudid [address] [place] [address] sennosides, NURSING HOME Notes: (Same as: No Longer 10/22 [facility] Senokot) [address] Sertraline Notes: (Same as: No Longer [facility] Zoloft) [address] Melatonin Notes: (Same as: No Longer [facility] Melatonin) Active 2020 [facility] Ambien Notes: (Same As: [place]er [place] Ambien) Active 2020 [facility] Center Enoxaparin Notes: (Same as: No Longer [facility] Lovenox) Active 2020 Medical Center Tylenol 67 kg; Inactive [facility] Pediatric Dosing 2020 [facility] Center Ibuprofen 800 mg, Route: Inactive [place] PO, Drug form: 2019 Medical TAB, Q8H, Dosing Center Weight 74.091, kg, Start date: 10/21/19 16:00:00 INCOME TAX RETURN PREPARER, Duration: 30 day, Stop date: 11/20/19 8:00:00 CDT gabapentin 300 MG Notes: (Same as: No Longer [facility] Oral Capsule Neurontin) Active 2020 [facility] Acetaminophen 325 Notes: (Same as: No Longer [facility] MG / Hydrocodone [place] 325/5) Do Active 2019 Medical Bitartrate 5 MG not exceed Cente r Oral Tablet 4gm/day of [[place] 5/325] acetaminophen. Acetaminophen 325 Notes: Do not No Longer [facility] MG / Hydrocodone exceed 4gm/day Active 2019 Medical Bitartrate 10 MG of Center Oral Tablet acetaminophen. [[place] 10/325] (Same as: [place] 325/10) Acetaminophen 325 Notes: Do not Inactive [facility] MG / Hydrocodone exceed 4gm/day 2020 Medical Bitartrate 10 MG of Center Oral Tablet acetaminophen. [[place] 10/325] (Same as: [place] 325/10) meropenem Notes: (Same as: No Longer [facility] Merrem) . Active 2020 Medical MEDICATION WASTE Center Product Size: 1000 mg Product Wasted: ___ mg Ibuprofen Notes: (Same as: No Longer [facility] Motrin) "Do Not Active 2020 Medical Crush" Take Center with food. Roxicodone Notes: (Same as: Inactive [facility] Roxicodone) 2020 Medical Center Acetaminophen Notes: Max Inactive [place] as acetaminophen 2020 Medical 4000 mg/day (4 Center gm/day). (Same as: Tylenol Extra Strength) oxyCODONE 10 mg 10 mg, Route: Inactive [facility] extended release PO, Drug form: 2019 Medical ERTAB, Q6H, PRN Center Pain Score 7-10, Start date: 10/21/19 9:05:00 INCOME TAX RETURN PREPARER, Duration: 30 day, Stop date: 11/20/19 9:04:00 CDT Oxycodone Notes: (Same as: Inactive [facility] [place] Hydrochloride 5 Roxicodone) 2019 Medi [place] MG Oral Tablet Center Oxycodone Notes: (Same as: Inactive [facility] [place] Hydrochloride 5 Roxicodone) 2020 Medi [place] MG Oral Tablet Center POLYETHYLENE Notes: Dissolve No Longer [facility] GLYCOL 3350 in 8 oz of water Active 2020 Med ical or juice. (Same Center as: Miralax) Amlodipine Notes: (Same as: No Longer [facility] Norvasc) Active 2020 [facility] linezolid Notes: (Same as: No Longer [place] Zyvox) Active 2020 [facility] meropenem Notes: (Same as: Inactive [facility] Merrem) . 2020 Medical MEDICATION WASTE Center Product Size: 1000 mg Product Wasted: 0 mg Aspirin Notes: Take with Inactive [place] as food. 2020 Medical [place] cefepime Notes: (Same As: [place] Maxipime) 2020 Medical MEDICATION WASTE Center Product Size: 1000 mg Product Wasted: ___ mg Ambien 5 mg, Route: PO, Inactive [place] ONCE, Dosing 2019 Medical Weight 74.091, Center kg, Start date: 10/21/19 2:32:00 INCOME TAX RETURN PREPARER, Stop date: 10/21/19 2:32:00 INCOME TAX RETURN PREPARER Lactated Ringers 1,000 mL, Rate: No Longer 10/21 [place] IV 1,000 mL 100 ml/hr, Active 2019 Medical Infuse over: 10 Center hr, Route: IV, Dosing Weight 74.091 kg, Total Volume: 1,000, Start date: 10/21/19 2:27:00 INCOME TAX RETURN PREPARER, Duration: 30 day, Stop date: 11/20/19 2:26:00 CDT, 1.8, m2, 0 Acetaminophen 325 Notes: Do not Inactive [place] MG / Hydrocodone exceed 4gm/day 2019 Medical Bitartrate 10 MG of Center Oral Tablet acetaminophen. (Same as: [place] 325/10) Dilaudid Notes: Same as [place] Dilaudid 2019 [facility] Zofran Notes: (Same as: No Longer [place] Zofran) Active 2020 [facility] Adult Aspirin 325 325 mg = 1 tab, No Longer 10/01 [place] mg oral tablet PO, Q4H, 0 2019 Medica l Refill(s) [place] Diphenhydramine 25 mg, PO, Active [place] Daily, 0 2019 Medical Refill(s) [place] Miralax 17 gm, PO, BID, Active [place] 0 Refill(s) 2019 [facility] Acetaminophen 325 0 Refill(s) No Longer [place] MG / Hydrocodone Active 2019 Medical Bitartrate 10 MG [place] Oral Tablet Dextrose 50% 12.5 gm, 25 mL, No Longer H [place] Syringe (D50W) Route: IVP, Drug Active 2019 Medical Form: INJ, [place] Dosing Weight 81.8, kg, PRN, PRN Blood Glucose Results, Start date: 10/21/19 1:09:00 INCOME TAX RETURN PREPARER, Duration: 30 day, Stop date: 11/20/19 2:08:00 CDT, 0 Glucagon 1 mg, Route: IM, No Longer [place] Drug form: Active 2019 Medical PDR/INJ, PRN, [place] Dosing Weight 81.8, kg, PRN Blood Glucose Results, Start date: 10/21/19 1:09:00 INCOME TAX RETURN PREPARER, Duration: 30 day, Stop date: 11/20/19 2:08:00 CDT, 0 Acetaminophen Notes: Do not Inactive [place] exceed 4 gm/day. 2019 Medical (Same as: [place] Tylenol) Levofloxacin 750 750 mg = 1 tab, Active [place] MG Oral Tablet PO, Q24H, X 10 2018 Me dical [Levaquin] day, # 10 tab, 0 Cent er Refill(s), Pharmacy: [facility][id number] sugammadex Notes: (Same as: Inactive [place] Bridion) 2019 [facility] ondansetron Route: IV, Drug Inactive [place] (ANES) form: INJ, ONCE, 2018 Medical Stop date: [place] 08/29/19 14:54:00 INCOME TAX RETURN PREPARER sugammadex (ANES) Route: IV, Drug Inactive 08/29 [facility] form: SOLN, 2018 Medical ONCE, Stop date: [place] 08/29/19 14:54:00 INCOME TAX RETURN PREPARER phenylephrine Route: IV, Drug Inactive [address] [place] [address] [place] (ANES) form: INJ, ONCE, 2018 Medical Stop date: [place] 08/29/19 13:59:00 INCOME TAX RETURN PREPARER metoclopramide Route: IV, Drug Inactive 08/29[facility] [place] (ANES) form: INJ, ONCE, 2018 Medical Stop date: [place] 08/29/19 13:59:00 INCOME TAX RETURN PREPARER rocuronium (ANES) Route: IV, Drug Inactive 08/29 [facility] form: INJ, ONCE, 2018 Medical Stop date: [place] 08/29/19 13:59:00 INCOME TAX RETURN PREPARER fentaNYL (ANES) Route: IV, Drug Inactive 08/29[facility] form: INJ, ONCE, 2018 Medical Stop date: [place] 08/29/19 13:59:00 INCOME TAX RETURN PREPARER dexamethasone Route: IV, Drug Inactive [address] [place] [address] (ANES) form: INJ, ONCE, 2018 Medical Stop date: [place] 08/29/19 13:59:00 INCOME TAX RETURN PREPARER midazolam (ANES) Route: IV, Drug Inactive 08/29[facility] form: SOLN, 2018 Medical ONCE, Stop date: [place] 08/29/19 13:53:00 INCOME TAX RETURN PREPARER lidocaine (ANES) Route: IV, Drug Inactive 08/29[facility] form: INJ, ONCE, 2018 Medical Stop date: [place] 08/29/19 13:53:00 INCOME TAX RETURN PREPARER propofol (ANES) Route: IV, Drug Inactive 08/29[facility] form: INJ, ONCE, 2018 Medical Stop date: [place] 08/29/19 13:53:00 INCOME TAX RETURN PREPARER Fentanyl Notes: (Same as: In[place] Sublimaze) 2019 Medical Preservative Center free. Hydromorphone Notes: Same as Inactive [place] Dilaudid [address] [place] [address] Flumazenil Notes: (Same as: Inactive [place] Romazicon) [address] [place] [address] Naloxone Notes: Same as Inactive [place] Narcan [address] [place] [address] Ondansetron Notes: (Same as: Inactive [place] Zofran) 2019 Medical MEDICATION WASTE Center Product Size: 4 mg Product Wasted: ___ mg Isolyte S PH 7.4 Route: IV, Total Inactive 08/29 [place] (ANES) 1000 mL Volume: 1,000, 2019 Me dical Start date: Center 08/29/19 12:50:00 INCOME TAX RETURN PREPARER, Stop date: 08/29/19 13:50:00 INCOME TAX RETURN PREPARER multivitamin Notes: (Same Inactive [place] as:Thera) 2019 Medical WASTE: F/P - Center Black; E - Municipal Trash Bin Take with food. Calcium Chloride 500 mL, 500 Inactive [place] 0.0014 MEQ/ML / ml/hr, Infuse 2018 T[place] dical Potassium Over: 1 hr, [place] Chloride 0.004 Route: IV, 500, MEQ/ML / Sodium Drug form: INJ, Chloride 0.103 ONCE, Priority: MEQ/ML / Sodium STAT, Dosing Lactate 0.028 Weight 81.8 kg, MEQ/ML Injectable Start date: Solution 08/29/19 7:15:00 INCOME TAX RETURN PREPARER, Stop date: 08/29/19 7:15:00 INCOME TAX RETURN PREPARER, 0 Magnesium Sulfate Notes: WASTE: Inactive [place] F/P - Sink; E - 2019 Medical [facility] Bin Yash packet Notes: (Same as: No Longer [place] Yash [place]) Active 2019 Medical Center Hydromorphone Notes: Same as No Longer [facility] [facility] Dilaudid Active [facility] sennosides, NURSING HOME Notes: (Same as: Inactive [place] Senokot) [facility] Acetaminophen Notes: Max No Longer [place] acetaminophen Active 2019 Medical 4000 mg/day (4 Center gm/day). (Same as: Tylenol Extra Strength) Oxycodone Notes: (Same as: No Longer [place] Hydrochloride 5 Roxicodone) Active 2019 Medi [place] MG Oral Tablet Center Hydromorphone Notes: Same as No Longer H [place] Dilaudid Active 2019 [facility] Ondansetron 4 mg, Route: Inactive [place] as IVP, Q8H, Dosing 2019 Medical Weight 81.8, kg, Center PRN Nausea & Vomiting, Start date: 08/26/19 10:02:00 [employer]COME TAX RETURN PREPARER, Duration: 30 day, Stop date: 09/25/19 10:01:00 INCOME TAX RETURN PREPARER Acetaminophen Notes: Max Inactive [place] as acetaminophen 2019 Medical 4000 mg/day (4 Center gm/day). (Same as: Tylenol Extra Strength) Tramadol 50 mg, Route: Inactive [place] PO, Drug form: 2019 Medical TAB, Q6H, Dosing Center Weight 81.8, kg, PRN Pain Score 4-6, Start date: 08/26/19 9:34:00 INCOME TAX RETURN PREPARER, Duration: 5 day, Stop date: 08/31/19 9:33:00 INCOME TAX RETURN PREPARER Hydromorphone Notes: Same as Inactive 08/26[facility] Dilaudid 2019 [facility] Center Ondansetron Notes: (Same as: Inactive 08/26[facility] Zofran) 2019 Medical MEDICATION WASTE Center Product Size: 4 mg Product Wasted: ___ mg Melatonin Notes: (Same as: Inactive 08/26[facility] [place] Melatonin) 2019 [facility] Center Amlodipine Notes: (Same as: No Longer [facility] Norvasc) Active 2019 [facility] Dilaudid Notes: (Same as: Inactive 08/26[facility] [place] Dilaudid) 2019 [facility] Center ketOROLAC 4 days Inactive [place] MEDICATION WASTE 2019 Medical Product Center Size: 30 mg Product Wasted: ___ mg Acetaminophen 1,000 mg, Route: No Longer 08/26[facility] [place] PO, Drug form: Active 2019 Medical TAB, ONCE, Center Dosing Weight 81.818, kg, PRN Pain Score 1-3, Start date: 08/25/19 22:34:00 INCOME TAX RETURN PREPARER Ibuprofen 600 mg, Route: No Longer 08/26[facility] [place] PO, Drug form: Active 2019 Medical TAB, Q6H, Dosing Center Weight 81.818, kg, PRN Pain Score 1-3, Start date: 08/25/19 22:34:00 INCOME TAX RETURN PREPARER, Duration: 30 day, Stop date: 09/24/19 22:33:00 INCOME TAX RETURN PREPARER Oxycodone 5 mg, Route: PO, No Longer 08/26[facility] [place] Hydrochloride 5 Drug form: TAB, Active 2019 Medical MG Oral Tablet Q4H, Dosing Cente r Weight 81.818, kg, PRN Pain Score 4-6, Start date: 08/25/19 22:34:00 INCOME TAX RETURN PREPARER, Duration: 30 day, Stop date: 09/24/19 22:33:00 INCOME TAX RETURN PREPARER Hydromorphone 0.5 mg, Route: No Longer [facility] [place] IVP, Q5Min, Active 2019 Medical Dosing Weight Center 81.818, kg, PRN Pain Score 7-10, Start date: 08/25/19 22:34:00 INCOME TAX RETURN PREPARER, Duration: 4 doses or times, Stop date: Limited # of times Flumazenil 0.2 mg, Route: No Longer [place] IVP, PRN, Dosing Active 2019 Medical Weight 81.818, Center kg, PRN Benzodiazepine Reversal, Initial dose, Start date: 08/25/19 22:34:00 INCOME TAX RETURN PREPARER, Duration: 30 day, Stop date: 09/24/19 22:33:00 INCOME TAX RETURN PREPARER Naloxone 0.4 mg, Route: No Longer [place] as IVP, Q2MIN, Active 2019 Medical Dosing Weight Center 81.818, kg, PRN Narcotic Reversal, Start date: 08/25/19 22:34:00 INCOME TAX RETURN PREPARER, Duration: 8 doses or times, Stop date: Limited # of times Ondansetron 4 mg, Route: No Longer [place] IVP, ONCE, Active 2019 Medical Dosing Weight Center 81.818, kg, PRN Nausea & Vomiting, Start date: 08/25/19 22:34:00 INCOME TAX RETURN PREPARER Dexamethasone 4 mg, Route: No Longer [place] IVP, ONCE, Active 2019 Medical Dosing Weight Center 81.818, kg, PRN Nausea & Vomiting, Start date: 08/25/19 22:34:00 INCOME TAX RETURN PREPARER Ambien Notes: (Same As: No Longer [place] Ambien) Active [facility] Isolyte S PH-7.4 Route: IV, ONCE, Inactive 08/26 [place] (Bolus) IV Dosing Weight 2019 Medical 81.818 kg, Start Center date: 08/25/19 21:58:00 INCOME TAX RETURN PREPARER, Stop date: 08/25/19 21:58:00 INCOME TAX RETURN PREPARER Benzocaine 15 MG Notes: Cepacol No Longer [facility] [place] / Menthol 3.6 MG lozenges Active 2019 Medica l Lozenge [Cepacol Dispense 1 box = [place] Sore Throat Pain 16 lozenges Relief 15/3.6] (Same As: Cepacol Lozenges) heparin Notes: porcine No Longer [place] heparin Active 2019 [facility] linezolid Notes: Protect No Longer [place] from light. Active 2019 [facility] (Same as: Zyvox) [place] Isolyte S PH-7.4 500 mL, Route: Inactive [place] (Bolus) IV IV, ONCE, Dosing 2018 [facility] Weight 81.818 Center kg, Start date: 08/25/19 18:25:00 INCOME TAX RETURN PREPARER, Stop date: 08/25/19 18:25:00 INCOME TAX RETURN PREPARER ketOROLAC (ANES) IV, ONCE Inactive [place] 2019 [facility] labetalol (ANES) Route: IV, Drug Inactive [place] form: INJ, ONCE, 2018 Medical Stop date: [place] 08/25/19 17:36:00 INCOME TAX RETURN PREPARER hydromorphone Route: IV, Drug Inactive [facility] [place] (ANES) form: INJ, ONCE, 2018 Medical Stop date: [place] 08/25/19 17:36:00 INCOME TAX RETURN PREPARER ondansetron Route: IV, Drug Inactive [facility] (ANES) form: INJ, ONCE, 2018 Medical Stop date: [place] 08/25/19 17:35:00 INCOME TAX RETURN PREPARER sugammadex (ANES) Route: IV, Drug Inactive 08/25 [facility] form: SOLN, 2018 Medical ONCE, Stop date: [place] 08/25/19 17:35:00 INCOME TAX RETURN PREPARER sugammadex Notes: (Same as: No Longer [place] Bridion) Active 2019 [facility] dexamethasone Route: IV, Drug Inactive 08/25[facility] [place] (ANES) form: INJ, ONCE, 2018 Medical Stop date: [place] 08/25/19 16:40:00 INCOME TAX RETURN PREPARER midazolam (ANES) Route: IV, Drug Inactive 08/25[facility] [place] form: SOLN, 2018 Medical ONCE, Stop date: [place] 08/25/19 16:24:00 INCOME TAX RETURN PREPARER lidocaine (ANES) Route: IV, Drug Inactive 08/25[facility] form: INJ, ONCE, 2018 Medical Stop date: [place] 08/25/19 16:24:00 INCOME TAX RETURN PREPARER propofol (ANES) Route: IV, Drug Inactive 08/25[facility] form: INJ, ONCE, 2018 Medical Stop date: [place] 08/25/19 16:24:00 INCOME TAX RETURN PREPARER rocuronium (ANES) Route: IV, Drug Inactive 08/25 [facility] form: INJ, ONCE, 2018 Medical Stop date: [place] 08/25/19 16:24:00 INCOME TAX RETURN PREPARER fentaNYL (ANES) Route: IV, Drug Inactive 08/25[facility] form: INJ, ONCE, 2018 Medical Stop date: [place] 08/25/19 16:24:00 INCOME TAX RETURN PREPARER heparin sodium, Notes: porcine Inactive [facility] porcine 2500 heparin 2019 Medical UNT/ML Injectable Center Solution meropenem Notes: (Same as: No Longer [place] Merrem) . Active 2019 Medical MEDICATION WASTE Center Product Size: 1000 mg Product Wasted: ___ mg Lactated Ringers Route: IV, Total Inactive 08/25 [facility] Injection IV Volume: 1,000, 2019 Medi [place] (ANES) 1000 mL Start date: Cente r 08/25/19 15:15:00 INCOME TAX RETURN PREPARER, Stop date: 08/25/19 16:15:00 INCOME TAX RETURN PREPARER potassium Notes: (Same as: Inactive [place] chloride KCL) Infuse no 2019 Medical faster than 10 Center mEq/hr if given peripherally. Dilaudid Notes: Same as Inactive [place] Dilaudid 2019 [facility] Center Potassium 40 mEq, Route: Inactive [place] as Chloride IVPB, ONCE, 2019 Medical Dosing Weight Center 81.818, kg, Start date: 08/25/19 13:06:00 INCOME TAX RETURN PREPARER, Stop date: 08/25/19 13:06:00 INCOME TAX RETURN PREPARER Docusate Notes: (Same as: No Longer [place] Colace) (Do Not Active 2019 Medical Crush) Center POLYETHYLENE Notes: Dissolve No Longer [place] GLYCOL 3350 in 8 oz of water Active 2019 Med ical or juice. (Same Center as: Miralax) Dilaudid 0.5 mg, Route: Inactive [place]vino[place] s IVP, ONCE, 2019 Medical Dosing Weight Center 81.818, kg, Priority: STAT, Start date: 08/25/19 8:55:00 INCOME TAX RETURN PREPARER, Stop date: 08/25/19 8:55:00 INCOME TAX RETURN PREPARER Dextrose 50% 12.5 gm, 25 mL, No Longer [facility] Syringe ([id number]) Route: IVP, Drug Active 2019 Medical Form: INJ, Center Dosing Weight 81.818, kg, PRN, PRN Blood Glucose Results, Start date: 08/25/19 8:31:00 INCOME TAX RETURN PREPARER, Duration: 30 day, Stop date: 09/24/19 8:30:00 INCOME TAX RETURN PREPARER, 0 Glucagon 1 mg, Route: IM, No Longer [place] Drug form: Active 2019 Medical PDR/INJ, PRN, Center Dosing Weight 81.818, kg, PRN Blood Glucose Results, Start date: 08/25/19 8:31:00 INCOME TAX RETURN PREPARER, Duration: 30 day, Stop date: 09/24/19 8:30:00 INCOME TAX RETURN PREPARER, 0 Ondansetron Notes: (Same as: No Longer [facility] Zofran) Active 2019 Medical MEDICATION WASTE Center Product Size: 4 mg Product Wasted: ___ mg Dextrose 5% with 1,000 mL, Rate: Inactive [facility] 0.45% NaCl IV 40 ml/hr, Infuse 2019 edical 1000 mL over: 25 hr, Center Route: IV, Dosing Weight 81.818 kg, Total Volume: 1,000, Start date: 08/25/19 8:22:00 INCOME TAX RETURN PREPARER, Duration: 30 day, Stop date: 09/24/19 8:21:00 INCOME TAX RETURN PREPARER, 1.89, m2 Iohexol 100 mL, Route: Inactive [facility] IVP, Drug Form: 2019 Medical SOLN, Dosing Center Weight 81.818, kg, ONCALL, STAT, Start date: 08/25/19 3:58:00 INCOME TAX RETURN PREPARER, Duration: 1 doses or times, Dose = 2.2ml/kg, Max dose = 100ml -- "To be infused by Radiology Staff ONLY" Zosyn Notes: (Same as: Inactive [place] as Zosyn) Dosing 2019 Medical based on Center Piperacillin component MEDICATION WASTE Product Size: 3375 mg Product Wasted: ___ mg Calcium Chloride 1,000 mL, 1000 Inactive [place] 0.0014 MEQ/ML / ml/hr, Infuse 2019 [place] dicnv Potassium Over: 1 hr, [place] Chloride 0.004 Route: IV, MEQ/ML / Sodium 1,000, Drug Chloride 0.103 form: INJ, ONCE, MEQ/ML / Sodium Priority: STAT, Lactate 0.028 Dosing Weight MEQ/ML Injectable 81.818 kg, Start Solution date: 08/25/19 3:30:00 INCOME TAX RETURN PREPARER, Stop date: 08/25/19 3:30:00 INCOME TAX RETURN PREPARER, 0 Fentanyl Notes: (Same as: Inactive [place] Sublimaze) 2019 [facility] Preservative [place] free. Dilaudid Notes: Same as Inactive Alvino[place] s Dilaudid 2019 [facility] Hydromorphone 0.5 mg, Route: Inactive [place] IVP, ONCE, 2019 Medical Dosing Weight Center 63.273, kg, Priority: STAT, Start date: 01/31/19 0:37:00 CDT, Stop date: 01/31/19 0:37:00 CDT Acetaminophen 1,000 mg, Route: Inactive [place] PO, ONCE, Dosing 2019 Medical Weight 63.273, Center kg, Start date: 01/31/19 0:07:00 CDT, Stop date: 01/31/19 0:07:00 CDT ketOROLAC 15 15 mg, Route: Inactive [place] mg/mL injectable IVP, Drug form: 2019 Medical solution INJ, ONCE, Center Dosing Weight 63.273, kg, Priority: STAT, Start date: 01/31/19 0:06:00 CDT, Stop date: 01/31/19 0:06:00 CDT ketOROLAC 15 4 days. Inactive [place] mg/mL injectable 2019 Medical solution Center sennosides, NURSING HOME Notes: (Same as: No Longer 01/23 [place] Senokot) Active 2019 [facility] Melatonin Notes: (Same as: No Longer [place] Melatonin) Active 2019 [facility] albuterol Notes: SEE RT No Longer [place] as DOCUMENTATION Active 2019 Medical (Same as: Center Proventil) Pulmicort Notes: (Same As: No Longer [facility] Respules Pulmicort Active 2019 Medical respule). Center Sertraline Notes: (Same as: No Longer [facility] Zoloft) Active 2019 [facility] Center Miralax Notes: Dissolve No Longer [place] as in 8 oz of water Active 2019 Medical or juice. (Same Center as: Miralax) Minocycline Notes: (Same No Longer [place] as:Minocin) No Active 2019 Medical milk/antacids/ir Center on. Breo Ellipta 200 1 puff, Route: Inactive [facility] mcg-25 mcg/inh INHALATION, Drug 2019 Medical inhalation powder Form: PWDR, Ce nter Dosing Weight 64.545, kg, Daily, Start date: 01/22/19 9:00:00 CDT, Duration: 30 day, Stop date: 02/20/19 9:00:00 CDT Fluconazole Notes: (Same as: No Longer [facility] Diflucan) Active 2019 Medical Center ferrous sulfate Notes: Give with No Longer 01/22 [facility] food. "Do Not Active 2019 Medical Crush" Center Amlodipine Notes: (Same as: No Longer [facility] Norvasc) Active 2019 [facility] Docusate Notes: (Same as: No Longer [facility] [place] Colace) (Do Not Active 2019 Medical Crush) Center Tramadol Notes: Not to [place] Longer [place] exceed Active 2019 Medical 400mg/day. (Same Center As: [facility]) Amoxicillin 875 Notes: With No Longer [facility] MG / Clavulanate food. (Same as: Active 2019 Medical 125 MG Oral Augmentin 875) Cente r Tablet Benadryl Notes: (Same as: No Longer [place] Benadryl) Active 2019 [facility] FeroSul 325 mg TK 1 T PO D Active [place] oral tablet 2019 [facility] zolpidem 5 mg TK 1 T PO QHS Active [place] oral tablet 2019 [facility] Center Amoxicillin 875 TK 1 T PO Q 12 H Active [facility] MG / Clavulanate 2019 Medical 125 MG Oral Center Tablet fluconazole 100 TK 1 T PO Q 24 Active H [place] mg oral tablet HOURS 2019 [facility] minocycline 100 100 mg = 1 cap, Active [facility] mg oral capsule PO, Q12H, # 20 2019 M edical cap, 0 Refill(s) Center Acetaminophen Notes: Do not No Longer [facility] exceed 4 gm/day. Active 2019 Medical (Same as: Center Tylenol) Bisacodyl Notes: (Same As: No Longer [facility] Dulcolax, Active 2019 [facility] Bisco-Lax) Center Ondansetron Notes: (Same as: No Longer [facility] Zofran) Active 2019 Medical MEDICATION WASTE Center Product Size: 4 mg Product Wasted: ___ mg Dextrose 50% 25 gm, 50 mL, No Longer [facility] Syringe Route: IVP, Drug Active 2019 Medical Form: INJ, Center Dosing Weight 64.545, kg, PRN, PRN Blood Glucose Results, Start date: 01/22/19 5:48:00 CDT, Duration: 30 day, Stop date: 02/21/19 5:47:00 CDT Glucagon 1 mg, Route: IM, No Longer [place] Drug form: Active 2019 Medical PDR/INJ, PRN, Center Dosing Weight 64.545, kg, PRN Blood Glucose Results, Start date: 01/22/19 5:48:00 CDT, Duration: 30 day, Stop date: 02/21/19 5:47:00 CDT Ondansetron Notes: (Same as: Inactive [facility] Zofran) 2019 Medical MEDICATION WASTE Center Product Size: 4 mg Product Wasted: 0 mg Hydromorphone Notes: Same as Inactive [facility] Dilaudid 2019 [facility] Docusate Sodium 2 tab, Route: Inactive [place] 50 MG / PO, Drug Form: 2019 [facility] sennosides, NURSING HOME TAB, Dosing Cent er 8.6 MG Oral Weight 64.545, Tablet kg, BID, Start date: 01/15/19 17:00:00 CDT, Duration: 30 day, Stop date: 02/14/19 9:00:00 CDT Ondansetron 4 MG 4 mg = 1 tab, Active 05/19/ M H [place] Oral Tablet PO, BID, # 10 2019 Medica l [Zofran] tab, 0 Refill(s) Center tramadol 100 mg = 2 tab, Active [place] hydrochloride 50 PO, Q6H, PRN 2019 Me dical MG Oral Tablet Pain Score 1-3, C enter X 7 day, # 20 tab, 0 Refill(s) sennosides, NURSING HOME 17.2 mg = 2 tab, Active [place] 8.6 MG Oral PO, BID, X 10 2019 Medica l Tablet day, # 40 tab, 0 Center Refill(s) Oxycodone 5 mg = 1 tab, Active [place] Hydrochloride 5 PO, Q4H, PRN 2019 Med ical MG Oral Tablet Pain Score 4-6, C enter 0 Refill(s) minocycline 100 100 mg = 1 cap, Active [place] mg oral capsule PO, [id number], X 2019 M edical 10 day, # 20 Center cap, 0 Refill(s) fluconazole 100 100 mg = 1 tab, Active [place] mg oral tablet PO, [id number], X 2019 Me dical 14 day, # 14 Center tab, 0 Refill(s) Amoxicillin 875 1 tab, PO, Active [place] MG / Clavulanate [id number], 2019 Medica l 125 MG Oral Pediatric Center Tablet Dosing, X 10 day, # 20 tab, 0 Refill(s) sertraline 100 mg 100 mg = 1 tab, Active [place] oral tablet PO, BID, 0 2019 Medical Refill(s) Center Senokot Notes: (Same as: Inactive [place] as Senokot) 2019 [facility] Aspirin Notes: Take with Inactive [place] as food. 2019 [facility] Center Benadryl Notes: (Same as: Inactive [place] Benadryl) 2018 [facility] Amlodipine Notes: (Same as: Inactive [place] Norvasc) 2019 Medical [place] potassium Notes: (Same as: No Longer [place] chloride K-Dur 20) "Do Active 2019 Medical Not Crush" Give Center with food and full glass of water For patients unable to swallow tablet, dissolve in one half glass of water. Allow about 2 minutes for the tablets to disintegrate. Stir before giving to prepare slurry and administer. Please exclude Patient’s with feeding tube less than 14 [place] (Dobhoff, J-tube etc) and pediatric and patients. Sertraline Notes: (Same as: No Longer [facility] Zoloft) Active 2019 Medical [place] Docusate Sodium Notes: (Same as: No Longer 01/14 [facility] 100 MG Oral Colace) (Do Not Active 2019 [facility] lacey Capsule Crush) Center Miralax Notes: Dissolve No Longer [place] as in 8 oz of water Active 2019 Medical or juice. (Same Center as: Miralax) albuterol Notes: SEE RT No Longer [place] as DOCUMENTATION Active 2019 Medical (Same as: [place] Proventil) albuterol 90 2 puff, Route: Inactive [facility] mcg/inh INHALATION, 2019 Medical inhalation Dosing Weight Center aerosol 64.545, kg, QID, PRN Wheezing, Start date: 01/14/19 10:55:00 CDT, Duration: 30 day, Stop date: 02/13/19 10:54:00 CDT Zofran ODT Notes: (Same as: No Longer [facility] Zofran ODT) Active 2019 [facility] Diflucan Notes: (Same as: No Longer [facility] [place] Diflucan) Active 2019 [facility] Zofran Notes: (Same as: No Longer [place] Zofran) Active 2019 [facility] MEDICATION WASTE Center Product Size: 4 mg Product Wasted: 0 mg Minocycline Notes: (Same No Longer [place] as:Minocin) No Active 2019 [facility] milk/antacids/ir Center on. Acetaminophen 300 Notes: Do not No Longer [facility] MG / Codeine exceed 4gm/day Active 2019 [facility] Phosphate 30 MG of Center Oral Tablet acetaminophen. [Tylenol with (Same as: Codeine #3] Tylenol with Codeine # 3) Enoxaparin Notes: (Same as: No Longer [facility] Lovenox) Active 2019 [facility] Amoxicillin / Notes: With No Longer [facility] [place] Clavulanate food. (Same as: Active 2019 [facility] Augmentin 875) [place] Saline Flush 0.9% Notes: (Same as: No Longer [facility] BD Posiflush) Active 2019 [facility] Center Ambien Notes: (Same As: No Longer [place] Ambien) Active 2019 [facility] Oxycodone Notes: (Same as: No Longer [place] Hydrochloride 5 Roxicodone) Active 2019 [facility] MG Oral Tablet Center Famotidine Notes: (Same as: No Longer [place] Pepcid) Active 2019 [facility] Center Lidocaine Notes: No Longer [place] Hydrochloride 10 Preservative Active 2019 Tn dical MG/ML Injectable free. (Same as: [place] Solution Xylocaine MPF) Acetaminophen Notes: Do not No Longer [place] exceed 4 gm/day. Active 2019 Medical (Same as: [place] Tylenol) sugammadex Notes: (Same as: No Longer [facility] Bridion) Active 2019 Medical Center Saline Flush 0.9% Notes: (Same as: No Longer [facility] BD Posiflush) Active 2019 [facility] Docusate Sodium Notes: (Same as: No Longer 01/12 [place] 100 MG Oral Colace) (Do Not Active 2019 [facility] Capsule Crush) [place] fluconazole Notes: (Same as: No Longer 01/12/ M [facility] [place] Diflucan) Active 2019 [facility] Fluconazole Notes: (Same as: No Longer 01/12/ M [facility] [place] Diflucan) Active 2019 [facility] sugammadex (ANES) Route: IV, Drug Inactive 01/12 [facility] form: LIA, 2019 Medical ONCE, Stop date: Center 01/12/19 15:02:00 CDT Ampicillin Notes: (Same as: Inactive [facility] Principen) 2019 Medical MEDICATION Center WASTE Product Size: 1000 mg Product Wasted: ___ mg Promethazine Notes: Do not No Longer [facility] give IV push. Active 2019 Medical (Same as: [place] Phenergan) Ondansetron Notes: (Same as: No Longer 01/12/ M [facility] [place] Zofran) Active 2019 Medical MEDICATION WASTE Center Product Size: 4 mg Product Wasted: ___ mg Hydromorphone Notes: Same as No Longer [facility] Dilaudid Active 2019 [facility] Calcium Chloride 1,000 mL, Rate: No Longer [facility] 0.0014 MEQ/ML / 125 ml/hr, Active 2019 Medic al Potassium Infuse over: 8 [place] Chloride 0.004 hr, Route: IV, MEQ/ML / Sodium Dosing Weight Chloride 0.103 64.545 kg, Total MEQ/ML / Sodium Volume: 1,000, Lactate 0.028 Start date: MEQ/ML Injectable 01/12/19 Solution 14:48:00 CDT, Duration: 30 day, Stop date: 02/11/19 14:47:00 CDT, 1.72, m2 tramadol Notes: Not to [place] Longer [place] hydrochloride 50 exceed Active 2019 Medical MG Oral Tablet 400mg/day. (Same Center As: [facility]) acetaminophen Route: IV, Drug Inactive [facility] (ANES) form: INJ, ONCE, 2018 Medical Stop date: [place] 01/12/19 13:20:00 CDT propofol (ANES) Route: IV, Drug Inactive [facility] 10 mg form: INJ, Start 2018 Medical date: 01/12/19 [place] 12:49:00 CDT, Stop date: 01/12/19 13:49:00 CDT ondansetron Route: IV, Drug Inactive [facility] (ANES) form: INJ, ONCE, 2018 Medical Stop date: [place] 01/12/19 12:44:00 CDT sodium citrate Route: PO, Drug Inactive [facility] (ANES) Form: INJ, ONCE, 2018 Medical Stop date: [place] 01/12/19 12:39:00 CDT hydromorphone Route: IV, Drug Inactive [facility] (ANES) form: INJ, ONCE, 2018 Medical Stop date: [place] 01/12/19 12:39:00 CDT Ondansetron Notes: (Same as: Inactive [facility] Zofran) 2019 Medical MEDICATION WASTE Center Product Size: 4 mg Product Wasted: ___ mg Promethazine Notes: Do not Inactive [facility] [place] give IV push. 2019 Medical (Same as: [place] Phenergan) Hydralazine Notes: (Same as: Inactive [place] Apresoline) Push 2019 Medical over 5 minutes Center Metoprolol Notes: (Same as: Inactive [place] Lopressor) Push 2019 Medical over 2 minutes Center Albuterol 0.83 Notes: SEE RT Inactive [place] MG/ML Inhalant DOCUMENTATION 2019 Med ical Solution (Same as: Center Proventil) Diphenhydramine Notes: (Same as: Inactive [place] Benadryl) 2019 Medical Center Naloxone Notes: Same as In[place] Narcan 2019 [facility] Center Flumazenil Notes: (Same as: Inactive [place] Romazicon) 2019 [facility] Center Oxycodone Notes: (Same as: Inactive [place] Roxicodone) 2019 [facility] Center Hydromorphone Notes: Same as Inactive [place] Dilaudid 2019 [facility] Center fluconazole Route: IV, Drug Inactive [place] (ANES) 2 mg form: INJ, Start 2018 Med ical date: 01/12/19 [place] 11:56:00 CDT, Stop date: 01/12/19 12:56:00 CDT tobramycin (ANES) Route: IV, Drug Inactive 01/12 [place] 40 mg form: INJ, Start 2018 Medical date: 01/12/19 [place] 11:52:00 CDT, Stop date: 01/12/19 12:52:00 CDT ampicillin (ANES) Route: IV, Drug Inactive 01/12 [place] 1000 mg form: INJ, Start 2018 Medical date: 01/12/19 [place] 11:50:00 CDT, Stop date: 01/12/19 12:50:00 CDT Lactated Ringers Route: IV, Total Inactive 01/12 [place] Injection IV Volume: 500, 2019 Medica l (ANES) 500 mL Start date: [place] 01/12/19 11:50:00 CDT, Stop date: 01/12/19 12:50:00 CDT famotidine (ANES) Route: IV, Drug Inactive 01/12 [place] form: INJ, ONCE, 2018 Medical Stop date: [place] 01/12/19 11:18:00 CDT alfentanil (ANES) Route: IV, Drug Inactive 01/12 [facility] + Sodium Chloride form: INJ, ONCE, 2018 Medical 0.9% IV (ANES) Stop date: [place] 100 mL 01/12/19 11:18:00 CDT dexamethasone Route: IV, Drug Inactive [place] (ANES) form: INJ, ONCE, 2018 Medical Stop date: [place] 01/12/19 11:13:00 CDT midazolam (ANES) Route: IV, Drug Inactive [facility] form: SOLN, 2019 Medical ONCE, Stop date: [place] 01/12/19 11:07:00 CDT propofol (ANES) Route: IV, Drug Inactive [facility] form: INJ, ONCE, 2018 Medical Stop date: [place] 01/12/19 11:07:00 CDT lidocaine (ANES) Route: IV, Drug Inactive [facility] form: INJ, ONCE, 2018 Medical Stop date: [place] 01/12/19 11:07:00 CDT rocuronium (ANES) Route: IV, Drug Inactive 01/12 [facility] form: INJ, ONCE, 2018 Medical Stop date: [place] 01/12/19 11:07:00 CDT fentaNYL (ANES) Route: IV, Drug Inactive [facility] form: INJ, ONCE, 2018 Medical Stop date: [place] 01/12/19 11:07:00 CDT Lactated Ringers Route: IV, Total Inactive 01/12 [facility] Injection IV Volume: 1,000, 2019 Medi [place] (ANES) 1000 mL Start date: Jethro bower 01/12/19 9:23:00 CDT, Stop date: 01/12/19 10:23:00 CDT [facility] Notes: Same as Inactive [place] Mirena [address] [place] [address] Benadryl 25 mg, PO, BID, [place] 0 Refill(s) 2019 [facility] amoxicillin 500 500 mg = 1 tab, No Longer [place] mg oral tablet PO, BID, 0 Active 2019 Medica l Refill(s) [place] Amoxicillin 0 Refill(s) [place] [address] [place] [address] sertraline 100 mg 100 mg = 1 tab, No Longer 12/28 [place] oral tablet PO, BID, 0 Active 2018 Medical Refill(s) Center Aspirin 325 mg, PO, BID, [place] 0 Refill(s) 2019 [facility] Miralax 17 gm, PO, BID, Active [facility] 0 Refill(s) 2019 [facility] Xarelto See Active [facility] Instructions, 2019 Medical MEDICATION HAS Center BEEN STOPPED., 0 Refill(s) Unknown Home PO, Daily, BOOST Active [facility] Medication SUPPLEMENT EVERY 2019 [facility] MORNING., Center Refill(s) 0 Mirena 1 ea, Route: No Longer [place] Intrauteral, Active 2018 Medical ONCE, Dosing Center Weight 66.506, kg, Start date: 01/05/19 19:25:00 CDT, Stop date: 01/05/19 19:25:00 CDT polyethylene 17 gm, PO, Active [facility] glycol 3350 oral Daily, X 7 day, 2019 Medical powder for # 12 ea, 0 Center reconstitution Refill(s) nitrofurantoin 100 mg = 1 cap, Active [facility] macrocrystals-mon PO, [id number], X 5 2019 Medical ohydrate 100 mg day, # 10 cap, 0 [place] oral capsule Refill(s) (Macrobid) ferrous sulfate 325 mg = 1 tab, Active [facility] 325 mg oral PO, Daily, # 30 2019 [facility] enteric coated tab, 0 Refill(s) [place] tablet Docusate Sodium 100 mg = 1 cap, Active [facility] 100 MG Oral PO, BID, # 28 2019 Medica l Capsule cap, 0 Refill(s) Center ciprofloxacin 500 500 mg = 1 tab, Active [place] mg oral tablet PO, Q12H, X 5 2019 Med ical day, # 10 tab, 0 Center Refill(s) Ondansetron 4 MG 4 mg = 1 tab, Active H [place] Oral Tablet PO, BID, # 10 2019 Medica l [Zofran] tab, 0 Refill(s) Center molasses Notes: (Same Inactive [facility] as:Molasses) 2019 [facility] Cipro Notes: May No Longer [place] interfere Active 2019 Medical w/enteral Center feedings - Take 1 hr before or 2 hrs after antacids, dairy pdt & minerals. On empty stomach. Miralax Notes: Dissolve No Longer [place] as in 8 oz of water Active 2019 Medical or juice. (Same Center as: Miralax) Zofran Notes: (Same as: Inactive [place] as Zofran) 2019 Medical MEDICATION WASTE Center Product Size: 4 mg Product Wasted: ___ mg Zofran Notes: (Same as: No Longer [place] Zofran) Active 2019 Medical MEDICATION WASTE Center Product Size: 4 mg Product Wasted: ___ mg Macrobid Notes: Not No Longer [place] recommended for Active 2019 Medical patients with Center CrCl<30 ml/min (Same as:Macrobid) With food. Zofran Notes: (Same as: Inactive [place] as Zofran) 2019 Medical MEDICATION WASTE Center Product Size: 4 mg Product Wasted: ___ mg Zofran ODT Notes: (Same as: No Longer [place] Zofran ODT) Active 2019 Medical Center sennosides, NURSING HOME Notes: (Same as: No Longer 12/16 [place] Senokot) Active 2019 Medical Center amLODIPine 5 mg 5 mg = 1 tab, Active [place] oral tablet PO, Daily, 0 2019 Medical Refill(s) [place] Breo Ellipta 200 1 puff, Active [place] mcg-25 mcg/inh INHALATION, 2019 Medic al inhalation powder Daily, 0 Cente r Refill(s) sertraline 100 mg 150 mg = 1.5 Active H [place] oral tablet tab, PO, Daily, 2019 Medi lacey # 135 tab, 0 Center Refill(s) Zolpidem tartrate 5 mg = 1 tab, Active [place] 5 MG Oral Tablet PO, Bedtime, # 2019 Medical [Ambien] 30 tab, 0 Center Refill(s) Ambien Notes: (Same As: No Longer [place] Ambien) Active 2019 Medical Center Calcium Chloride 1,000 mL, 1,000 Inactive [place] 0.0014 MEQ/ML / ml/hr, Infuse 2019 Tn dical Potassium Over: 1 hr, Center Chloride 0.004 Route: IV, MEQ/ML / Sodium 1,000, Drug Chloride 0.103 form: INJ, ONCE, MEQ/ML / Sodium Priority: STAT, Lactate 0.028 Dosing Weight MEQ/ML Injectable 66.506 kg, Start Solution date: 12/15/18 9:15:00 CDT, Stop date: 12/15/18 9:15:00 CDT ferrous sulfate Notes: Give with No Longer 12/15 [place] food. "Do Not Active 2019 Medical Crush" Center Docusate Notes: (Same as: No Longer [place] Colace) (Do Not Active 2019 Medical Crush) Center Tylenol Notes: Do not No Longer [place] exceed 4 gm/day. Active 2019 Medical (Same as: Center Tylenol) tramadol Notes: Not to [place] Longer [place] hydrochloride 50 exceed Active 2019 Medical MG Oral Tablet 400mg/day. (Same Center As: [facility]) Hydromorphone Notes: Same as Inactive [place] Dilaudid 2019 [facility] Center Midazolam 1 mg, Route: IV, Inactive [place] ONCE, Dosing 2019 Medical Weight 66.506, Center kg, Start date: 12/14/18 11:34:00 CDT, Stop date: 12/14/18 11:34:00 CDT, Fentanyl 50 microgram, Inactive [place] Route: IV, ONCE, 2019 Medical Dosing Weight Center 66.506, kg, Start date: 12/14/18 11:34:00 CDT, Stop date: 12/14/18 11:34:00 CDT, Fentanyl 50 microgram, Inactive [place] Route: IV, ONCE, 2019 Medical Dosing Weight Center 66.506, kg, Start date: 12/14/18 11:29:00 CDT, Stop date: 12/14/18 11:29:00 CDT, Ondansetron 4 mg, Route: IV, Inactive [place] ONCE, Dosing 2019 Medical Weight 66.506, Center kg, Start date: 12/14/18 11:29:00 CDT, Stop date: 12/14/18:29:00 CDT, Rocephin 1 gm, Route: IV, Inactive [place] ONCE, Dosing 2019 Medical Weight 66.506, Center kg, Start date: 12/14/18 11:29:00 CDT, Stop date: 12/14/18 11:29:00 CDT, , ABX Indication: Surgical Prophylaxis Midazolam 1 mg, Route: IV, Inactive [place] ONCE, Dosing 2019 Medical Weight 66.506, Center kg, Start date: 12/14/18 11:29:00 CDT, Stop date: 12/14/18 11:29:00 CDT, Sertraline Notes: (Same as: No Longer [place] Zoloft) Active 2019 Medical Center Ceftriaxone Notes: (Same As: No Longer [place] Rocephin). Use Active 2019 Medical with 100 mL NS Center and infuse over 30 min MEDICATION WASTE Product Size: 1000 mg Product Wasted: ___ mg Dilaudid Notes: Same as Inactive [place] Dilaudid 2019 [facility] Center Lovenox Notes: (Same as: No Longer [place] Lovenox) Active 2019 [facility] Melatonin Notes: (Same as: No Longer [place] Melatonin) Active 2019 [facility] Glucagon 1 mg, Route: IM, No Longer [place] Drug form: Active 2019 Medical PDR/INJ, PRN, Center Dosing Weight 64.545, kg, PRN Blood Glucose Results, Start date: 12/14/18 4:24:00 CDT, Duration: 30 day, Stop date: 01/13/19 4:23:00 CDT Dextrose 50% 25 gm, 50 mL, No Longer [place] Syringe Route: IVP, Drug Active 2019 Medical Form: INJ, Center Dosing Weight 64.545, kg, PRN, PRN Blood Glucose Results, Start date: 12/14/18 4:24:00 CDT, Duration: 30 day, Stop date: 01/13/19 4:23:00 CDT Hydromorphone 0.5 mg, Route: Inactive [place] IVP, ONCE, 2019 Medical Dosing Weight Center 64.545, kg, Priority: STAT, Start date: 12/14/18 2:51:00 CDT, Stop date: 12/14/18 2:51:00 CDT Sodium Chloride 1,000 mL, Rate: Inactive [place] 0.9% IV 1,000 mL 75 ml/hr, Infuse 2019 [facility] over: 13.3 hr, [place] Route: IV, Dosing Weight 64.545 kg, Total Volume: 1,000, Priority: STAT, Start date: 12/13/18 22:01:00 CDT, Duration: 1 doses or times, Stop date: 12/14/18 11:01:00 CDT, 1.68, m2 Dilaudid 0.5 mg, Route: Inactive [place] IVP, ONCE, 2019 Medical Dosing Weight Center 64.545, kg, Priority: STAT, Start date: 12/13/18 21:56:00 CDT, Stop date: 12/13/18 21:56:00 CDT Zofran 4 mg, Route: Inactive [facility] IVP, Drug form: 2019 Medical INJ, ONCE, Center Dosing Weight 64.545, kg, Priority: STAT, Start date: 12/13/18 21:56:00 CDT, Stop date: 12/13/18 21:56:00 CDT Dilaudid 0.5 mg, Route: [place] IVP, ONCE, 2019 Medical Dosing Weight Center 64.545, kg, Priority: STAT, Start date: 12/13/18 19:41:00 CDT, Stop date: 12/13/18 19:41:00 CDT Benadryl Notes: (Same as: Inactive [place] Benadryl) 2018 Medical [place] Sodium Chloride 250 mL, Rate: To No Longer 04/19 [facility] 0.9% (titrate) prime line and Active 2018 Tn dical 250 mL flush remaining Center blood products., Dosing Weight 74.091, kg, Route: IV, Total Volume: 250, Start Date: 04/19/18 9:46:00 CDT, Duration: 30 day, Stop date: 05/19/18 9:45:00 CDT, Replace Every: 24 hr meropenem 500 mg 500 mg, IV, Active [facility] intravenous [id number], 0 2018 Medical injection Refill(s) Center Amoxicillin 500 1 tab, PO, TID, No Longer [facility] MG / Clavulanate X 7 day, # 21 Active 2018 edical 125 MG Oral tab, 0 [place] Tablet [Augmentin Refill(s), 500-mg] Pharmacy: [facility] [id number] Lidocaine Notes: (Same as: No Longer [facility] Hydrochloride 10 Xylocaine) Active 2018 Medi lacey MG/ML Injectable Center Solution Saline Flush 0.9% Notes: (Same as: No Longer [facility] BD Posiflush) Active 2018 Medical Center Saline Flush 0.9% Notes: (Same as: No Longer [facility] BD Posiflush) Active 2018 [facility] Center Amoxicillin 500 Notes: With No Longer 08/20/ [facility] MG / Clavulanate food. (Same as: Active 2018 Medical 125 MG Oral Augmentin 500) Cente r Tablet [Augmentin 500-mg] Saline Flush 0.9% Notes: (Same as: Inactive 03/30 [place] BD Posiflush) 2018 [facility] Center Lidocaine Notes: (Same as: Inactive [place] Hydrochloride 10 Xylocaine) 2018 Medi lacey MG/ML Injectable Center Solution Saline Flush 0.9% Notes: (Same as: Inactive 03/30 [place] BD Posiflush) 2018 [facility] meropenem Notes: Same as No Longer [place] Merrem Active 2018 Medical MEDICATION WASTE Center Product Size: 500 mg Product Wasted: ___ mg Potassium Notes: (Same as: Inactive [place] Chloride KCL) Infuse no 2018 Medical faster than 10 Center mEq/hr if given peripherally. Potassium Notes: (Same as: Inactive [place] Chloride 1.33 Potassium 2018 [facility] MEQ/ML Oral Chloride) [place] Solution albuterol 90 Notes: Albuterol No Longer [place] mcg/inh 90 microgram/inh Active 2018 Medical inhalation 8gm HFA WASTE: Cente r aerosol Aerosol - Return to Pharmacy Same as: Scott Castro Notes: (Same As: No Longer [place] Ambien) Active 2018 [facility] Phenergan Notes: Do not No Longer [place] as give IV push. Active 2018 Medical (Same as: [place] Phenergan) Xarelto Notes: (Same as: No Longer [place] Xarelto) Active 2018 Medical Administer with [place] food Magnesium Sulfate Notes: WASTE: Inactive [place] F/P - Sink; E - 2018 [facility] Municipal Trash Center Bin lidocaine Notes: (Same as: Inactive [place] Xylocaine) 2018 [facility] lidocaine Notes: Inactive [facility] Preservative 2018 Medical free. (Same as: [place] Xylocaine MPF) Fentanyl 50 microgram, Inactive [place] Route: IV, ONCE, 2018 Medical Dosing Weight Center 74.091, kg, Start date: 04/15/18 9:16:00 CDT, Stop date: 04/15/18 9:16:00 CDT Lidocaine 2 %, Route: Inactive [place] SUB-Q, ONCE, 2018 Medical Dosing Weight Center 74.091, kg, Start date: 04/15/18 9:16:00 CDT, Stop date: 04/15/18 9:16:00 CDT Heparin 40 Pharmacy To Inactive [place] unit/kg Bolus Manage, Route: 2018 Med ical (Heparin Dosing IVP, PRN, Drug C enter Weight) form: INJ, PRN, Heparin Protocol, Start date: 04/14/18 16:30:00 CDT Stop date: 05/14/18 16:29:00 CDT, 30 day heparin additive 500 mL, Rate: Inactive [place] 25,000 unit [18 26.67 ml/hr, 2018 Med ical unit/kg/hr] + Infuse over: Cente r Premix Diluent 18.7 hr, Route: Dextrose 5% 500 IV, Dosing mL Weight 74.091 kg, Total Volume: 500 mL, Start date: 04/14/18 16:30:00 CDT, Duration: 30 day, Stop date: 05/14/18 16:29:00 CDT, 1.8, m2 Heparin 80 Pharmacy To Inactive [place] unit/kg Bolus Manage, Route: 2017 Med ical (Heparin Dosing IVP, PRN, Drug C enter Weight) form: INJ, PRN, Heparin Protocol, Start date: 04/14/18 16:30:00 CDT Stop date: 05/14/18 16:29:00 CDT, 30 day Xarelto Notes: (Same as: No Longer [place] Xarelto) Active 2018 Medical Administer with Center food Mag-Ox 400 Notes: (Same as: Inactive [place] Mag-Ox 400) 2018 Medical Magnesium oxide Center [id number] elemental magnesium Dose=____mg magnesium oxide (___mg elemental magnesium) potassium Notes: (Same as: Inactive [place] phosphate-sodium Phos-NaK) Each 2018 Medical phosphate 1.5 gm pkt has Center 250mg phosphorous. Mix w/2.5oz water and stir. potassium 2 tab, Route: Inactive [place] phosphate 155 MG PO, Dosing 2018 Medi lacey / Sodium Weight 74.091, Center Phosphate, kg, ONCE, Start Dibasic 852 MG / date: 04/14/18 Sodium Phosphate, 7:51:00 CDT, Monobasic 130 MG Stop date: Oral Tablet 04/14/18 7:51:00 CDT Lactated Ringers 1,000 mL, Rate: No Longer 04/13 [place] IV 1,000 mL 200 ml/hr, Active 2018 Medical Infuse over: 5 Center hr, Route: IV, Dosing Weight 74.091 kg, Total Volume: 1,000, Start date: 04/13/18 17:07:00 CDT, Duration: 30 day, Stop date: 05/13/18 17:06:00 CDT, 1.8, m2 Potassium 40 mEq, Route: Inactive [place] as Chloride PO, Drug form: 2018 Medical ERTAB, PRN, Center Dosing Weight 74.091, kg, PRN Abnormal Lab Result, Electrolyte replacement, Priority: NOW, Start date: 04/13/18 16:01:00 CDT, Duration: 7 day, Stop date: 04/20/18 16:00:00 CDT Maxipime + Sodium Notes: (Same As: No Longer [place] Chloride 0.9% IV Maxipime) Active 2018 Medic al 50 mL Cefepime FOR Center IV SET ONLY MEDICATION WASTE Product Size: 1000 mg Product Wasted: _0__ mg Hydromorphone Notes: Same as No Longer [place] Dilaudid Active 2018 [facility] Lactated Ringers 1,000 mL, Rate: Inactive [place] IV 1,000 mL 200 ml/hr, 2018 Medical Infuse over: 5 Center hr, Route: IV, Dosing Weight 74.091 kg, Total Volume: 1,000, Start date: 04/13/18 10:02:00 CDT, Duration: 1 doses or times, Stop date: 04/13/18 15:01:00 CDT, 1.8, m2 Zofran Notes: (Same as: No Longer [place] Zofran) Active 2018 Medical MEDICATION WASTE Center Product Size: 4 mg Product Wasted: ___0 mg sennosides, NURSING HOME Notes: (Same as: No Longer 04/13 [place] 8.6 MG Oral Senokot) Active 2018 Medical Tablet Center heparin sodium, 5,000 unit, Inactive [facility] porcine 2500 Route: SUB-Q, 2018 Medic al UNT/ML Injectable Drug form: INJ, Center Solution Q12H, Dosing Weight 74.091, kg, Start date: 04/12/18 21:00:00 CDT, Duration: 30 day, Stop date: 05/12/18 9:00:00 CDT Lasix 20 mg, Route: Inactive [facility] IVP, Drug form: 2018 Medical INJ, ONCE, Center Dosing Weight 74.091, kg, Priority: NOW, Start date: 04/12/18 9:35:00 CDT, Stop date: 04/12/18 9:35:00 CDT Miralax Notes: Dissolve No Longer [place] as in 8 oz of water Active 2018 Medical or juice. (Same Center as: Miralax) Docusate Notes: (Same as: No Longer [place] Colace) (Do Not Active 2018 [facility] Crush) Center linezolid Notes: (Same as: Inactive [place] Zyvox) 2018 [facility] Calcium Carbonate Notes: (Same As: No Longer [facility] 500 MG Chewable Tums) Calcium Active 2018 Tn dical Tablet Carbonate 500 mg Center = 200 mg elemental calcium Dose = mg calcium carbonate ( mg elemental calcium) sodium phosphate Notes: Infuse No Longer [facility] over 4 hour. Do Active 2018 Medical not infuse Center phosphorous concurrently in the same line as TPN or IVF that contains calcium. For double lumen central lines, phosphorous may be infused in a separate lumen from TPN. Potassium Notes: (Same as: No Longer [facility] Chloride Potassium Active 2018 [facility] Chloride) [place] Calcium Gluconate Notes: WASTE: No Longer [facility] F/P - Sink; E - Active 2018 [facility] Municipal Trash Center Bin Magnesium Oxide Notes: (Same as: No Longer 04/12 [facility] Mag-Ox 400) Active 2018 [facility] Magnesium oxide Center [id number] elemental magnesium Dose=____mg magnesium oxide (___mg elemental magnesium) potassium Notes: (Same as: No Longer [place] phosphate K Phosphate.) Active 2018 Medical Do not infuse Center phosphorous concurrently in the same line as TPN or IVF that contains calcium. For double lumen central lines, phosphorous may be infused in a separate lumen from TPN. 1 mMol phoshate has 1.47 mEq potassium Infuse over 4 hours potassium Notes: (Same as: No Longer [place] phosphate-sodium Phos-NaK) Each Active 2018 Medical phosphate 250 1.5 [address]m pkt has [address] mg-280 mg-160 mg 250mg oral powder for phosphorous. Mix reconstitution w/2.5oz water and stir. Magnesium Sulfate Notes: (Same as: No Longer [place] MgSO4) WASTE: Active 2017 Medical F/P - Sink; E - Center Municipal Trash Bin MEDICATION WASTE Product Size: 1000 mg Product Wasted: ___ mg cefepime 1 gm, Route: IV, Inactive [place] Q6H, Dosing 2018 Medical Weight 74.091, Center kg, Start date: 04/12/18 6:00:00 CDT, Duration: 30 day, Stop date: 05/12/18 0:00:00 CDT, ABX Indication: Bacteremia Calcium Chloride 1,000 mL, 1,000 Inactive [place] 0.0014 MEQ/ML / ml/hr, Infuse 2018 Me dical Potassium Over: 1 hr, Center Chloride 0.004 Route: IV, MEQ/ML / Sodium 1,000, Drug Chloride 0.103 form: INJ, ONCE, MEQ/ML / Sodium Priority: STAT, Lactate 0.028 Dosing Weight MEQ/ML Injectable 74.091 kg, Start Solution date: 04/12/18 4:11:00 CDT, Stop date: 04/12/18 4:11:00 CDT linezolid Notes: (Same as: No Longer [place] Zyvox) Active 2018 [facility] cefepime Notes: (Same As: No Longer [place] Maxipime) Active 2018 Medical MEDICATION WASTE Center Product Size: 1000 mg Product Wasted: ___ mg Tylenol Notes: Do not No Longer [place] exceed 4 gm/day. Active 2018 Medical (Same as: [place] Tylenol) Dilaudid Notes: Same as No Longer [place] as Dilaudid Active 2017 [facility] Heparin 40 Route: IVP, PRN, No Longer [place] unit/kg Bolus 2,300 unit, 2.3 Active 2017 Tn dical (Heparin Dosing mL, Drug form: C enter Weight) INJ, PRN, Heparin Protocol, Start date: 04/12/18 0:34:00 CDT Stop date: 05/12/18 0:33:00 CDT, 30 day heparin additive Notes: Total No Longer [place] 25,000 unit [18 Concentration = Active 2018 Medical unit/kg/hr] + 50 unit/ ml [place] Premix Diluent Total volume = Sodium Chloride 500 ml Send Med 0.45% 500 mL Request 2 hours prior to next bag Heparin - one 4,600 unit, 4.6 Inactive H [place] time bolus for mL, Route: IVP, 2017 edical DVT/PE Drug form: INJ, Center ONCE, Dosing Weight 74.091, kg, Priority: STAT, Start date: 04/12/18 0:34:00 CDT, Stop date: 04/12/18 0:34:00 CDT Heparin 80 Route: IVP, PRN, No Longer [place] unit/kg Bolus 4,600 unit, 4.6 Active 2017 Tn dical (Heparin Dosing mL, Drug form: C enter Weight) INJ, PRN, Heparin Protocol, Start date: 04/12/18 0:34:00 CDT Stop date: 05/12/18 0:33:00 CDT, 30 day Calcium Chloride 2,000 mL, 1,000 Inactive [place] 0.0014 MEQ/ML / ml/hr, Infuse 2017 Tn dical Potassium Over: 2 hr, [place] Chloride 0.004 Route: IV, MEQ/ML / Sodium 2,000, Drug Chloride 0.103 form: INJ, ONCE, MEQ/ML / Sodium Priority: STAT, Lactate 0.028 Dosing Weight MEQ/ML Injectable 74.091 kg, Start Solution date: 04/12/18 0:32:00 CDT, Stop date: 04/12/18 0:32:00 CDT Benzocaine / HI, Daily, 0 Active [place] as Docusate Refill(s) 2018 [facility] sertraline 100 mg 100 mg = 1 tab, Active [place] oral tablet PO, Daily, # 30 2018 Medi lacey tab, 0 Refill(s) Center Amoxicillin Notes: (Same as: No Longer [place] Amoxil) Active [address] [place] [address] amoxicillin 875 875 mg = 1 tab, On Hold [place] mg oral tablet PO, Q12H, X 10 2018 Tn dical day, # 20 tab, 0 Center Refill(s), Pharmacy: [facility] [id number] rivaroxaban 20 MG 20 mg = 1 tab, Active [place] Oral Tablet PO, QPM, # 30 2018 Medica l [Xarelto] tab, 0 Center Refill(s), Pharmacy: [facility] [id number] Amoxicillin 875 875 mg = 1 tab, Inactive [place] MG / Clavulanate PO, Q12H, X 10 2018 Medical 125 MG Oral day, # 20 tab, [address] Tablet [Augmentin Refill(s), 875-mg] Pharmacy: [facility] [id number] Potassium Notes: (Same as: Inactive [place] Chloride K-Dur 20) "Do 2018 Medical Not Crush" For Center patients unable to swallow tablet, dissolve in one half glass of water. Allow about 2 minutes for the tablets to disintegrate. Stir before giving to prepare slurry and administer. Please exclude Patients with feeding tube less than 14 Singaporean (Dobhoff, J-tube etc) and pediatric and patients. With food and full glass of water Ceftriaxone Notes: (Same As: No Longer [place] Rocephin). Active 2018 Medical MEDICATION WASTE Center Product Size: 1000 mg Product Wasted: ___ mg Ondansetron 4 mg, Route: Inactive [place] as IVP, ONCE, 2018 Medical Dosing Weight Center 67, kg, PRN Nausea & Vomiting, Start date: 03/01/18 18:07:00 CDT Flumazenil 0.2 mg, Route: Inactive [place] IVP, PRN, Dosing 2018 Medical Weight 67, kg, Center PRN Benzodiazepine Reversal, Initial dose, Start date: 03/01/18 18:07:00 CDT, Duration: 30 day, Stop date: 03/31/18 18:06:00 CDT Naloxone 0.4 mg, Route: In[place] IVP, Q2MIN, 2018 Medical Dosing Weight Center 67, kg, PRN Narcotic Reversal, Start date: 03/01/18 18:07:00 CDT, Duration: 8 doses or times, Stop date: Limited # of times Oxycodone 10 mg, Route: [place] PO, Drug form: 2018 Medical TAB, Q4H, Dosing Center Weight 67, kg, PRN Pain Score 7-10, Start date: 03/01/18 18:07:00 CDT, Duration: 30 day, Stop date: 03/31/18 18:06:00 CDT Hydromorphone 0.2 mg, Route: Inactive [place] IVP, Q5Min, 2018 Medical Dosing Weight Center 67, kg, PRN Pain Score 7-10, Start date: 03/01/18 18:07:00 CDT, Duration: 4 doses or times, Stop date: Limited # of times Acetaminophen 1,000 mg, Route: Inactive [place] PO, Drug form: 2018 Medical TAB, ONCE, Center Dosing Weight 67, kg, PRN Pain Score 1-3, Start date: 03/01/18 18:07:00 CDT Hydralazine 10 mg, Route: Inactive [place] IVP, Q20Min, 2018 Medical Dosing Weight Center 67, kg, PRN Elevated BP, Start date: 03/01/18 18:07:00 CDT, Duration: 2 doses or times, Stop date: Limited # of times Labetalol 10 mg, Route: [place] IVP, Q5Min, 2018 Medical Dosing Weight Center 67, kg, PRN Elevated BP, Start date: 03/01/18 18:07:00 CDT, Duration: 5 doses or times, Stop date: Limited # of times sugammadex Notes: (Same as: No Longer [place] Bridion) Active 2018 Medical Center Dilaudid 0.5 mg, Route: [place] IVP, ONCE, 2018 Medical Dosing Weight Center 67.6, kg, Priority: STAT, Start date: 03/01/18 15:48:00 CDT, Stop date: 03/01/18 15:48:00 CDT Zofran Notes: (Same as: No Longer [place] Zofran) Active 2018 Medical MEDICATION WASTE Center Product Size: 4 mg Product Wasted: ___ mg Docusate Notes: (Same as: No Longer [place] Colace) (Do Not Active 2017 Medical Crush) Center Sertraline Notes: (Same as: No Longer [facility] Zoloft) Active 2018 Medical Center Betamethasone 0.5 Notes: Inactive [place] MG/ML Augmented (betamethasone 2017 edical Topical Cream dip, aug 0.05% [address] ter 15gm CRM) (Same As: Diprolene AF) heparin sodium, Notes: porcine No Longer [facility] porcine 2500 heparin Active 2017 Medical UNT/ML Injectable Center Solution Ceftriaxone Notes: (Same As: Inactive [facility] Rocephin). Use 2018 Medical with 100 mL NS Center and infuse over 30 min MEDICATION WASTE Product Size: 2000 mg Product Wasted: ___ mg NS 1,000 mL 1,000 mL, Rate: No Longer [facility] 100 ml/hr, Active 2018 Medical Infuse over: 10 Center hr, Route: IV, Dosing Weight 67.727 kg, Total Volume: 1,000, Start date: 03/01/18 6:57:00 CDT, Duration: 30 day, Stop date: 03/31/18 6:56:00 CDT, 1.72, m2 ketOROLAC 30 4 days No Longer [facility] mg/mL injectable MEDICATION WASTE Active 2018 Medical solution Product Center Size: 30 mg Product Wasted: ___ mg Ondansetron Notes: (Same as: No Longer [facility] Zofran) Active 2018 Medical MEDICATION WASTE Center Product Size: 4 mg Product Wasted: _0__ mg Acetaminophen 325 Notes: (Same as: No Longer [facility] MG / Hydrocodone [place] 325/5) Do Active 2018 Medical Bitartrate 5 MG not exceed Cente r Oral Tablet 4gm/day of acetaminophen. Fentanyl Notes: (Same as: In[place] 2017 Medical Preservative Center free. Isolyte S PH-7.4 Notes: (Same as: Inactive 03/01 [place] (Bolus) IV Isolyte S PH 2018 Medical 7.4) Center Fentanyl Notes: (Same as: [place] 2018 Medical Preservative Center free. 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 Ketorolac 4 days Inactive [place] MEDICATION WASTE 2018 Medical Product Center Size: 30 mg Product Wasted: ___ mg Zofran Notes: (Same as: Inactive [place] Zofran) 2018 Medical MEDICATION WASTE Center Product Size: 4 mg Product Wasted: ___ mg Iohexol Notes: (same Inactive [facility] as:Omnipaque 2018 Medical 350). WASTE: Center F/P - Black; E - Municipal Trash Bin Allergies, Adverse Reactions, Alerts Substance Category Reaction Severity Reaction Status Date Comments S ource type Reported vancomycin Assertion Drug Active [facility] morphine Assertion Drug Active [facility] Latex Assertion Propensity Active [facility] to adverse Medic al reactions Center to substance Food Assertion Propensity Active [facility] Chocolate to adverse Med ical reactions Center to substance Rubber Assertion Drug Active [facility] allergy [facility] Immunizations Immunization Date Site Status Last Updated Comments Sour ce Given pneumococcal Left Arm completed Reagin [facility] 23-valent 8 [facility] vaccine [place],2.1 6 .[id number] 8 [id number] 3 4, KRYSTIN Schneider, KRYSTIN Mireles pneumococcal Left completed Ricafrente [facility] 23-valent 8 deltoid [facility] vaccine [place],2.1 6 .840.1.113 8 [id number] 3 4, KRYSTIN Schneider, KRYSTIN Mireles Results Order Name Results Value Reference Date Interpretation Comments Noy rce Range CHEM PANEL Glucose Lvl 92 70 - 99 10/[address] CHEM PANEL BUN 10 7 - 22 10/[address] CHEM PANEL Creatinine 0.47 0.50 - 10/25 [facility] Lvl 1.40 [facility] CHEM PANEL Sodium Lvl 138 135 - 145 10/[address] CHEM PANEL Potassium Lvl 3.9 3.5 - 5.1 10/25 [facility] xa [address] [place] [address] CHEM PANEL Chloride Lvl 105 95 - 109 10/25 [facility] CHEM PANEL CO2 20 24 - 32 10/[address] CHEM PANEL Calcium Lvl 8.8 8.5 - 10.5 10/25 [facility] CHEM PANEL AGAP 16.9 10.0 - 10/25 [facility] 20.0 [facility] CHEM PANEL eGFR 143 10/25 Result Comment: The Medical eGFR is Center [...] should be multiplied by the estimated BMI. HEMATOLOGY Plt Morph Clumped Normal 10/25 [facility] (10/25/19 2:38 AM) /2019 [facility] HEMATOLOGY Segs 91.2 45.0 - 10/25 [facility] 75.0 [facility] HEMATOLOGY Lymphocytes 6.3 20.0 - 10/25 [place] 40.0 [facility] HEMATOLOGY Monocytes 2.3 2.0 - 12.0 10/25 [facility]2019 [facility] HEMATOLOGY Basophils 0.2 0.0 - 1.0 10/25 [facility]2019 [facility] HEMATOLOGY Neutrophils # 8.4 1.5 - 8.1 10/25 [facility] HEMATOLOGY Lymphocytes # 0.6 1.0 - 5.5 10/[address] HEMATOLOGY Monocytes # 0.2 0.0 - 0.8 10/25 [facility] HEMATOLOGY WBC X 10x3 9.2 3.7 - 10.4 10/25 [facility]2019 [facility] HEMATOLOGY RBC X 10x6 4.48 4.20 - 10/25 [place] 5.40 [facility] HEMATOLOGY Hgb 12.2 12.0 - 10/25 [place] 16.0 [facility] HEMATOLOGY Hct 37.4 36.0 - 10/25 [place] 48.0 [facility] HEMATOLOGY MCV 83.5 80.0 - 10/25 [place] 98.0 [facility] HEMATOLOGY MCH 27.3 27.0 - 10/25 [place] 31.0 [facility] HEMATOLOGY MCHC 32.7 32.0 - 10/25 [place] 36.0 [facility] HEMATOLOGY RDW 14.7 11.5 - 10/25 [facility] 14.5 [facility] HEMATOLOGY Platelet Clumped 133 - 450 10/25 Result Comment: Due Medical to occasional Center clumps, the actual count may be slightly higher. HEMATOLOGY MPV xxxxxxx 7.4 - 10.4 10/25 [facility] (10/25/19 2:38 AM) [facility] HEMATOLOGY Platelet 262 133 - 450 10/24 [facility] Count Blue /2019 [facility] HEMATOLOGY PT 13.1 12.0 - 10/24 [facility] 14.7 [facility] HEMATOLOGY INR 0.99 0.85 - 10/24 [facility] 1.17 [facility] HEMATOLOGY PTT 32.3 22.9 - 10/24 [facility] 35.8 [facility] CHEM PANEL Glucose Lvl 79 70 - 99 10/24 [facility]2019 [facility] CHEM PANEL BUN 9 7 - 22 10/[address] CHEM PANEL Creatinine 0.48 0.50 - 10/24 [facility] Lvl 1.40 [facility] CHEM PANEL Sodium Lvl 139 135 - 145 10/[address] CHEM PANEL Potassium Lvl 3.3 3.5 - 5.1 10/24 [place] [facility] CHEM PANEL Chloride Lvl 108 95 - 109 10/24 [facility] CHEM PANEL CO2 23 24 - 32 10/[address] CHEM PANEL Calcium Lvl 8.9 8.5 - 10.5 10/24 [facility] CHEM PANEL AGAP 11.3 10.0 - 10/24 [facility] 20.0 [facility] CHEM PANEL eGFR 142 10/24 Result Comment: The Medical eGFR is Center [...] should be multiplied by the estimated BMI. HEMATOLOGY Plt Morph Clumped Normal 10/24 [facility] (10/24/19 4:01 AM) [facility] HEMATOLOGY Segs 60.2 45.0 - 10/24 [facility] 75.0 [facility] HEMATOLOGY Lymphocytes 25.1 20.0 - 10/24 [facility] 40.0 [facility] HEMATOLOGY Monocytes 11.4 2.0 - 12.0 10/[address] HEMATOLOGY Eosinophils 2.8 0.0 - 4.0 10/[address] HEMATOLOGY Basophils 0.5 0.0 - 1.0 10/[address] HEMATOLOGY Neutrophils # 3.6 1.5 - 8.1 10/[address] HEMATOLOGY Lymphocytes # 1.5 1.0 - 5.5 10/[address] HEMATOLOGY Monocytes # 0.7 0.0 - 0.8 10/[address] HEMATOLOGY Eosinophils # 0.2 0.0 - 0.5 10/[address] HEMATOLOGY WBC 5.9 3.7 - 10.4 10/[address] HEMATOLOGY RBC 4.13 4.20 - 10/24 [facility] 5.40 [facility] HEMATOLOGY Hgb 11.3 12.0 - 10/24 [facility] 16.0 [facility] HEMATOLOGY Hct 34.5 36.0 - 10/24 [facility] 48.0 [facility] HEMATOLOGY MCV 83.5 80.0 - 10/24 [facility] 98.0 [facility] HEMATOLOGY MCH 27.3 27.0 - 10/24 [facility] 31.0 [facility] HEMATOLOGY MCHC 32.6 32.0 - 10/24 [facility] 36.0 [facility] HEMATOLOGY RDW 15.3 11.5 - 10/24 [facility] 14.5 [facility] HEMATOLOGY Platelet CLUMPED 133 - 450 10/24 [facility] Comment: Medical Platelets Center clumped on smear; unable to estimate. HEMATOLOGY MPV 8.6 7.4 - 10.4 10/24 [facility] HEMATOLOGY Platelet 253 133 - 450 10/23 [facility] Count Blue [facility] HEMATOLOGY PT 13.0 12.0 - 10/23 [facility] 14.7 [facility] HEMATOLOGY INR 0.98 0.85 - 10/23 [facility] 1.17 [facility] HEMATOLOGY PTT 34.3 22.9 - 10/23 [facility] 35.8 [facility] CHEM PANEL Glucose Lvl 103 70 - 99 10/23 [facility]2019 [facility] CHEM PANEL BUN 11 7 - 22 10/[address] CHEM PANEL Creatinine 0.68 0.50 - 10/23 [facility] Lvl 1.40 [facility] CHEM PANEL Sodium Lvl 140 135 - 145 10/[address] CHEM PANEL Potassium Lvl 3.4 3.5 - 5.1 10/23 [place] [facility] CHEM PANEL Chloride Lvl 110 95 - 109 10/23 [facility] CHEM PANEL CO2 23 24 - 32 10/23 [facility]2019 [facility] CHEM PANEL AGAP 10.4 10.0 - 10/23 [facility] 20.0 [facility] CHEM PANEL Calcium Lvl 8.8 8.5 - 10.5 10/23 [facility] CHEM PANEL eGFR 127 10/23 [facility] Comment: The Medical eGFR is Center calculated [...] should be multiplied by the estimated BMI. HEMATOLOGY RBC Morph Normal Normal 10/23 [facility] (10/23/19 3:34 AM) /2019 [facility] HEMATOLOGY Plt Morph Clumped Normal 10/23 [facility] (10/23/19 3:34 AM) /2019 [facility] HEMATOLOGY Segs 74.0 45.0 - 10/23 [place] 75.0 /2019 [facility] HEMATOLOGY Lymphocytes 13.9 20.0 - 10/23 [place] 40.0 /2019 [facility] HEMATOLOGY Monocytes 9.3 2.0 - 12.0 10/23 [facility] /[address] [place] [address] HEMATOLOGY Eosinophils 2.5 0.0 - 4.0 10/23 [place] /2020 [facility] HEMATOLOGY Basophils 0.3 0.0 - 1.0 10/[address] HEMATOLOGY Neutrophils # 7.6 1.5 - 8.1 10/23 [facility] xa /[address] [place] [address] HEMATOLOGY Lymphocytes # 1.4 1.0 - 5.5 10/23 [facility] [address] HEMATOLOGY Monocytes # 1.0 0.0 - 0.8 10/23 [place] /2020 [facility] HEMATOLOGY Eosinophils # 0.3 0.0 - 0.5 10/23 [facility] xas /[address] [place] [address] HEMATOLOGY WBC X 10x3 10.3 3.7 - 10.4 10/23 [facility] /[address] [place] [address] HEMATOLOGY RBC X 10x6 4.12 4.20 - 10/23 [place] 5.40 /2019 [facility] HEMATOLOGY Hgb 11.1 12.0 - 10/23 [facility] 16.0 /2019 [facility] HEMATOLOGY Hct 34.9 36.0 - 10/23 [place] 48.0 /2019 [facility] HEMATOLOGY MCV 84.8 80.0 - 10/23 [place] 98.0 [facility] HEMATOLOGY MCH 27.0 27.0 - 10/23 [place] 31.0 [facility] HEMATOLOGY MCHC 31.8 32.0 - 10/23 [place] 36.0 [facility] HEMATOLOGY RDW 15.8 11.5 - 10/23 [place] 14.5 [facility] HEMATOLOGY Platelet See Note 6 133 - 450 10/23 Result [facility] (10/23/19 3:34 AM) /2019 Comment: Medic al Platelets Center clumped in EDTA, unable to estimate, suggest recollection in a blue top tube with an order for "Blue Top Platelet Count"
<b r/>Notified Mojgan Sotelo at 10/23/2019 07:46 by CN. HEMATOLOGY MPV xxxxxxx 7.4 - 10.4 10/23 [facility] (10/23/19 3:34 AM) [facility] HEMATOLOGY RBC Morph Normal Normal 10/22 [facility] (10/22/19 8:48 AM) [facility] HEMATOLOGY Eosinophils 1.8 0.0 - 4.0 10/[address] HEMATOLOGY Eosinophils # 0.2 0.0 - 0.5 10/[address] URINE CHEM U Preg Negative Negative 10/21 [facility] (10/21/19 10:46 AM) [facility] CHEM PANEL Total Protein 7.9 6.4 - 8.4 10/[address] CHEM PANEL Albumin Lvl 3.3 3.5 - 5.0 10/[address] CHEM PANEL ALT 24 0 - 65 10/[address] CHEM PANEL AST 16 0 - 37 10/[address] CHEM PANEL Alk Phos 70 39 - 136 10/[address] CHEM PANEL Bili Total 0.4 0.2 - 1.3 10/[address] CHEM PANEL B/C Ratio 16 6 - 25 10/[address] CHEM PANEL Globulin 4.6 2.7 - 4.2 10/[address] CHEM PANEL A/G Ratio 0.7 0.7 - 1.6 10/[address] CIPROFLOXAC Culture: 10,000 - 50,000 CFU/mL Enterococcus Species 10/21 [facility] IN:SUSC:PT: Urine <10,000 CFU/mL [place] /2019 Medical ISOLATE:ORD Center QN:CAPRICE CIPROFLOXAC Enterococcus Enterococc 10/21 [place]:SUSC:PT: Species us Species /2019 Medical ISOLATE:ORD Center QN:[place] HEMATOLOGY PT 14.2 12.0 - 10/21 [facility] 14.7 [facility] HEMATOLOGY INR 1.10 0.85 - 10/21 [place] 1.17 [facility] HEMATOLOGY PTT 31.1 22.9 - 10/21 [place] 35.8 [facility] URINE AND UA Color Yellow Yellow 10/21 [facility] *NA* /2019 [facility] (10/21/19 2:53 AM) [place] URINE AND UA Turbidity Marked Clear 10/21 [facility] *ABN* /[address] [place] [address] (10/21/19 2:53 AM) [place] URINE AND UA Spec Grav 1.011 <=1.030 10/[address] URINE AND UA pH 6.0 5.0 - 8.0 10/[address] URINE AND UA Protein 30 mg/dL Negative 10/21 [facility] mg/dL /[address] [place] [address] URINE AND UA Glucose Negative Negative 10/21 [facility] mg/dL mg/dL /[address] [place] [address] URINE AND UA Ketones 20 mg/dL Negative 10/21 [facility] mg/dL /[address] [place] [address] URINE AND UA Bili Negative Negative 10/21 [facility] *NA* /[address] [place] [address] (10/21/19 2:53 AM) [place] URINE AND UA Blood Large Negative 10/21 [facility] *ABN* /[address] [place] [address] (10/21/19 2:53 AM) [place] URINE AND UA <1.0 0.1 - 1.0 10/21 [facility] Urobilinogen /[address] [place] [address] URINE AND UA Nitrite Positive Negative 10/21 [facility] *ABN* /[address] [place] [address] (10/21/19 2:53 AM) [place] URINE AND UA Leuk Est Large Negative 10/21 [facility] *ABN* /[address] [place] [address] (10/21/19 2:53 AM) [place] URINE AND UA Sq Epi Occasional Few /LPF 10/21 [facility] /LPF /[address] [place] [address] URINE AND UA WBC 123 0 - 5 10/[address] URINE AND UA RBC 47 0 - 2 10/[address] URINE AND UA Bacteria Few /HPF None Seen 10/21 [place] /HPF /[address] [place] [address] URINE AND UA Mucus Few /LPF None Seen 10/21 [facility] STOOL /LPF [address] [place] [address] URINE AND UA Amorph Occasional None Seen 10/[place]y /HPF /HPF [address] [place] [address] URINE AND UA Trans Epi 9 <=0 /LPF 10/[address] CHEM PANEL Magnesium Lvl 1.5 1.8 - 2.4 08/[place] [address] [place] [address] CHEM PANEL Phosphorus 3.4 2.5 - 4.5 08/29 [facility] ELECTROLYTE AGAP 7.5 10.0 - 08/29 [facility] S 20.0 [facility] ELECTROLYTE Glucose Lvl 74 70 - 99 08/29 [facility] ELECTROLYTE BUN 7 7 - 22 08/29 [facility] ELECTROLYTE Creatinine 0.62 0.50 - 08/29 [facility] S Lvl 1. [facility] ELECTROLYTE Sodium Lvl 145 135 - 145 08/29 [place] /2018 [facility] ELECTROLYTE Potassium Lvl 3.5 3.5 - 5.1 08/29 [place] [facility] ELECTROLYTE Chloride Lvl 115 95 - 109 08/29 [facility] ELECTROLYTE CO2 26 24 - 32 08/29 [facility] 2018 [facility] ELECTROLYTE Calcium Lvl 8.3 8.5 - 10.5 08/29 [place] [facility] ELECTROLYTE eGFR 132 08/29 [facility] Comment: The Medical eGFR is Center calculated [...] should be multiplied by the estimated BMI. HEMATOLOGY WBC X 10x3 5.5 3.7 - 10.4 08/29 [place] [facility] HEMATOLOGY RBC X 10x6 4.35 4.20 - 08/29 [place] 5.40 [facility] HEMATOLOGY Hgb 11.9 12.0 - 08/29 [place] 16.0 [facility] HEMATOLOGY Hct 36.8 36.0 - 08/29 [place] 48.0 /2018 [facility] HEMATOLOGY MCV 84.6 80.0 - 08/29 [place] 98.0 /2019 [facility] HEMATOLOGY MCH 27.4 27.0 - 08/29 [place] 31.0 /2018 [facility] HEMATOLOGY MCHC 32.3 32.0 - 08/29 [place] 36.0 /2019 [facility] HEMATOLOGY RDW 15.2 11.5 - 08/29 [place] 14.5 /2019 [facility] HEMATOLOGY Platelet See Note 4 133 - 450 08/29 [place] (08/29/19 4:36 AM) /2018 Comment: [facility] Platelets Center clumped on smear; unable to estimate.<br/ >

SOMMER TATUM:Zhang rahman Result(s) called to WYATT MORALEZ at 08/29/2019 05:32 by AA. Read back OK. HEMATOLOGY MPV xxxxxxx 7.4 - 10.4 08/29 [facility] (08/29/19 4:36 AM) /2018 [facility] HEMATOLOGY INR 1.00 0.85 - 08/29 [place] 1.17 [facility] HEMATOLOGY PT 13.2 12.0 - 08/29 [place] 14.7 [facility] HEMATOLOGY PTT 48.6 22.9 - 08/29 [place] 35.8 2019 [facility] HEMATOLOGY RBC Morph Normal Normal 08/29 [facility] (08/29/19 4:36 AM) /2018 [facility] HEMATOLOGY Plt Morph Clumped Normal 08/29 [facility] (08/29/19 4:36 AM) /2018 [facility] HEMATOLOGY Segs 56.8 45.0 - 08/29 [place] 75.0 [facility] HEMATOLOGY Lymphocytes 25.6 20.0 - 08/29 [place] 40.0 2019 [facility] HEMATOLOGY Monocytes 13.2 2.0 - 12.0 08/29 /2018 [facility] HEMATOLOGY Eosinophils 3.5 0.0 - 4.0 08/29 [place] /2018 [facility] HEMATOLOGY Basophils 0.9 0.0 - 1.0 08/29 /2018 [facility] HEMATOLOGY Neutrophils # 3.1 1.5 - 8.1 08/29 [place] /2018 [facility] HEMATOLOGY Lymphocytes # 1.4 1.0 - 5.5 08/29 [place] [facility] HEMATOLOGY Monocytes # 0.7 0.0 - 0.8 08/29 [facility] HEMATOLOGY Eosinophils # 0.2 0.0 - 0.5 08/29 [facility] PARATHYROID Ca Ion WB 1.15 1.05 - 08/29 [facility] PROFILE 1. [facility] PARATHYROID Ca Norm WB 1.11 1.05 - 08/29 [facility] PROFILE . [facility] HEMATOLOGY Platelet 165 133 - 450 08/28 Result [facility] Count Comment: Due Medical Top to occasional Center clumps, the actual count may be slightly higher. CHEM PANEL Phosphorus 3.2 2.5 - 4.5 08/28 [facility] CHEM PANEL Glucose Lvl 94 70 - 99 08/28 [facility] CHEM PANEL BUN 8 7 - 22 08/28 [facility] CHEM PANEL Creatinine 0.55 0.50 - 08/28 [facility] Lvl 1.40 [facility] CHEM PANEL Sodium Lvl 143 135 - 145 08/28 [facility]2018 [facility] CHEM PANEL Potassium Lvl 3.6 3.5 - 5.1 08/28 [facility] CHEM PANEL Chloride Lvl 114 95 - 109 08/28 [facility] CHEM PANEL CO2 23 24 - 32 08/28 [facility]2018 [facility] CHEM PANEL Calcium Lvl 8.3 8.5 - 10.5 08/28 [facility] CHEM PANEL eGFR 136 08/28 Result [facility] Comment: The Medical eGFR is Center [...] by the estimated BMI. CHEM PANEL AGAP 9.6 10.0 - 08/28 [place] 20.0 [facility] CHEM PANEL Magnesium Lvl 1.9 1.8 - 2.4 08/28 [facility] HEMATOLOGY Segs 67.4 45.0 - 08/28 [place] 75.0 [facility] HEMATOLOGY Lymphocytes 19.6 20.0 - 08/28 [place] 40.0 [facility] HEMATOLOGY Monocytes 9.3 2.0 - 12.0 08/28 [facility] HEMATOLOGY Eosinophils 3.2 0.0 - 4.0 08/28 [facility] HEMATOLOGY Basophils 0.5 0.0 - 1.0 08/28 [facility] HEMATOLOGY Neutrophils # 4.9 1.5 - 8.1 08/28 [facility] HEMATOLOGY Lymphocytes # 1.4 1.0 - 5.5 08/28 [facility] HEMATOLOGY Monocytes # 0.7 0.0 - 0.8 08/28 [facility] HEMATOLOGY Eosinophils # 0.2 0.0 - 0.5 08/28 [facility] HEMATOLOGY Hypochrom 1+ None Seen 08/28 [facility] (08/28/19 5:35 AM) /2018 [facility] HEMATOLOGY WBC 7.3 3.7 - 10.4 08/28 [facility] HEMATOLOGY RBC 4.43 4.20 - 08/28 [place] 5.40 /2018 [facility] HEMATOLOGY Hgb 12.1 12.0 - 08/28 [place] 16.0 [facility] HEMATOLOGY Hct 38.3 36.0 - 08/28 [place] 48.0 [facility] HEMATOLOGY MCV 86.3 80.0 - 08/28 [place] 98.0 [facility] HEMATOLOGY MCH 27.4 27.0 - 08/28 [place] 31.0 [facility] HEMATOLOGY MCHC 31.7 32.0 - 08/28 [place] 36.0 [facility] HEMATOLOGY RDW 15.5 11.5 - 08/28 [place] 14.5 [facility] HEMATOLOGY Platelet See Note 5 133 - 450 08/28 [facility] (08/28/19 5:35 AM) /2018 Comment: Medi lacey Platelets Center clumped in EDTA, unable to estimate, suggest recollection in a blue top tube with an order for "Blue Top Platelet Count"
Cheryl Mohr RN notified 08/28/2019 07:55KGR HEMATOLOGY MPV xxxxxxx 7.4 - 10.4 08/28 [facility] (08/28/19 5:35 AM) Medic al Center PARATHYROID Ca Ion WB 1.11 1.05 - 08/28 [facility] PROFILE . [facility] PARATHYROID Ca Norm WB 1.06 1.05 - 08/28 [facility] PROFILE . [facility] HEMATOLOGY Platelet 156 133 - 450 08/27 [facility] Count Blue [facility] Center CHEM PANEL Glucose Lvl 87 70 - 99 08/27 [facility] CHEM PANEL BUN 12 7 - 22 08/27 [facility] CHEM PANEL Creatinine 0.67 0.50 - 08/27 [facility] Lvl 1.40 [facility] CHEM PANEL Sodium Lvl 144 135 - 145 08/27 [facility] CHEM PANEL Potassium Lvl 3.6 3.5 - 5.1 08/27 [place] [facility] CHEM PANEL Chloride Lvl 116 95 - 109 08/27 [facility] CHEM PANEL CO2 23 24 - 32 08/27 [facility] CHEM PANEL Calcium Lvl 7.9 8.5 - 10.5 08/27 [place] [facility] CHEM PANEL eGFR 128 08/27 [facility] Comment: The Medical eGFR is Center [...] by the estimated BMI. CHEM PANEL AGAP 8.6 10.0 - 08/27 20.0 [facility] CHEM PANEL Magnesium Lvl 2.3 1.8 - 2.4 08/27 [facility] CHEM PANEL Phosphorus 2.3 2.5 - 4.5 08/27 [facility] HEMATOLOGY Segs 82.4 45.0 - 08/27 [place] 75.0 [facility] HEMATOLOGY Lymphocytes 8.2 20.0 - 08/27 [place] 40.0 [facility] HEMATOLOGY Monocytes 7.2 2.0 - 12.0 08/27 [facility] HEMATOLOGY Eosinophils 2.0 0.0 - 4.0 08/27 [facility] HEMATOLOGY Basophils 0.2 0.0 - 1.0 08/27 [facility]2018 [facility] HEMATOLOGY Neutrophils # 9.3 1.5 - 8.1 08/27 [facility] HEMATOLOGY Lymphocytes # 0.9 1.0 - 5.5 08/27 [facility] HEMATOLOGY Monocytes # 0.8 0.0 - 0.8 08/27 [facility] HEMATOLOGY Eosinophils # 0.2 0.0 - 0.5 08/27 [facility] HEMATOLOGY WBC 11.3 3.7 - 10.4 08/27 2018 [facility] HEMATOLOGY RBC 4.20 4.20 - 08/27 [place] 5.40 [facility] HEMATOLOGY Hgb 11.6 12.0 - 08/27 [place] 16.0 [facility] HEMATOLOGY Hct 36.1 36.0 - 08/27 [place] 48.0 [facility] HEMATOLOGY MCV 86.0 80.0 - 08/27 [place] 98.0 2019 [facility] HEMATOLOGY MCH 27.5 27.0 - 08/27 [place] 31.0 [facility] HEMATOLOGY MCHC 32.0 32.0 - 08/27 [place] 36.0 2019 [facility] HEMATOLOGY RDW 15.5 11.5 - 08/27 [place] 14.5 2019 [facility] HEMATOLOGY Platelet See Note 6 587 - 450 08/27 Result Alvino s (08/27/19 4:57 AM) /2018 Comment: [facility] Platelets Center clumped in EDTA, unable to estimate, suggest recollection in a blue top tube with an order for "Blue Top Platelet Count"
ca lled to Kortney Roe 08/27/2019 07:22 by jr HEMATOLOGY MPV xxxxxxx 7.4 - 10.4 08/27 [facility] (08/27/19 4:57 AM) /2018 [facility] PARATHYROID Ca Ion WB 1.17 1.05 - 08/27 [facility] PROFILE 1. [facility] PARATHYROID Ca Norm WB 1.09 1.05 - 08/27 [facility] PROFILE 1. [facility] URINE AND UA Color Yellow Yellow 08/25 [facility] STOOL *NA* /2018 [facility] (08/25/19 3:03 AM) Cente r URINE AND UA Turbidity Slight Cloudy Clear 08/25 [facility] (08/25/19 3:03 AM) /2018 [facility] URINE AND UA Spec Grav 1.010 <=1.030 08/25 [facility] STOOL /2018 [facility] URINE AND UA pH 6.0 5.0 - 8.0 08/25 [facility] STOOL /2018 [facility] URINE AND UA Protein Negative Negative 08/25 [facility] (08/25/19 3:03 AM) /2018 [facility] URINE AND UA Glucose Negative Negative 08/25 [facility] (08/25/19 3:03 AM) /2018 [facility] URINE AND UA Ketones Negative Negative 08/25 [facility] STOOL *NA* [facility] (08/25/19 3:03 AM) Cente r URINE AND UA Bili Negative Negative 08/25 [facility] STOOL *NA* [facility] (08/25/19 3:03 AM) Cente r URINE AND UA Blood Large Negative 08/25 [facility] STOOL *ABN* [facility] (08/25/19 3:03 AM) Cente r URINE AND UA 1.0 0.1 - 1.0 08/25 [facility] Urobilinogen /2018 [facility] URINE AND UA Nitrite Negative Negative 08/25 [facility] (08/25/19 3:03 AM) /2018 [facility] URINE AND UA Leuk Est Moderate Negative 08/25 [facility] STOOL *ABN* [facility] (08/25/19 3:03 AM) Cente r URINE AND UA Sq Epi Occasional Few /LPF 08/25 [facility] [place] STOOL /LPF /2018 [facility] URINE AND UA WBC 6-10 /HPF 0 - 5 08/25 [facility] STOOL [facility] URINE AND UA RBC 21-50 /HPF 0 - 2 08/25 [facility] STOOL [facility] URINE AND UA Bacteria Moderate None Seen 08[place] /HPF /HPF /2018 [facility] URINE CHEM U Preg Negative Negative 08/25 [facility] (08/25/19 3:03 AM) Medic al [place] GENTAMICIN: Culture: 10,000 - 50,000 CFU/mL Escherichia coli [facility] SUSC:PT:ISO Urine 10,000 - 50,000 CFU/mL Enterococcus Species /2018 Medical LATE:ORDQN: Center CAPRICE GENTAMICIN: Enterococcus Enterococc 08/25 [facility] [place] SUSC:PT:ISO Species us Species Medical LATE:ORDQN: Center CAPRICE GENTAMICIN: Escherichia Escherichi 08/25 [facility] [place] SUSC:PT:ISO coli a coli Medical LATE:ORDQN: Center [place] BLOOD BANK ABO/Rh A NEG 08/25 [facility] RESULTS [facility] BLOOD BANK Antibody Scrn Negative 08/25 [facility] as RESULTS (08/25/19 1:51 AM) [facility] IMMUNOLOGY CDC HIV 4th Negative Negative 08/25 [facility] s GEN *NA* /2018 Medical (08/25/19 1:51 AM) [place] MOLECULAR S. aureus Not Detected Not 08/25 [facility] DIAG[facility]STIC (08/25/19 1:51 AM) [facility] MOLECULAR S. Not Detected Not 08/25 [facility] DIAGNOSTIC epidermidis (08/25/19 1:51 AM) [facility] MOLECULAR S. Not Detected Not 08/25 [facility] DIAGNOSTIC lugdunensis (08/25/19 1:51 AM) Detected [facility] MOLECULAR S. anginosus Not Detected Not 08/25 [facility] [place] DIAGNOSTIC grp (08/25/19 1:51 AM) Detected [facility] MOLECULAR S. agalactiae Not Detected Not 08/25 [facility] DIAGNOSTIC (08/25/19 1:51 AM) Detected [facility] MOLECULAR S. pneumoniae Not Detected Not 08/25 [facility] DIAGNOSTIC (08/25/19 1:51 AM) [facility] MOLECULAR S. pyogenes Not Detected Not 08/25 [facility] [place] (08/25/19 1:51 AM) Detected /2018 [facility] MOLECULAR E. faecalis Not Detected Not 08/[place] (08/25/19 1:51 AM) Detected [facility] MOLECULAR E. faecium Not Detected Not 08/25 [facility] DIAGNOSTIC (08/25/19 1:51 AM) Detected [facility] MOLECULAR Staphylococcu Detected Not 08/25 [facility] DIAGNOSTIC s spp. *ABN* Detected /2018 [facility] (08/25/19 1:51 AM) Cente r MOLECULAR Streptococcus Not Detected Not 08/25 [facility] DIAGNOSTIC spp. (08/25/19 1:51 AM) Detected [facility] MOLECULAR Listeria spp. Not Detected Not 08/25 [facility] DIAGNOSTIC (08/25/19 1:51 AM) Detected [facility] MOLECULAR mecA Not Detected Not 08/25 [facility] DIAGNOSTIC Methicillin (08/25/19 1:51 AM) Detected [facility] MOLECULAR Pepe Not Detected Not 08/25 [facility] DIAGNOSTIC Vancomycin (08/25/19 1:51 AM) Detected [facility] MOLECULAR vanB Not Detected Not 08/25 [facility] DIAGNOSTIC Vancomycin (08/25/19 1:51 AM) Detected /2018 [facility] CHEM PANEL Lactic Acid 1.2 0.5 - 2.2 08/25 [facility] Lvl /2018 [facility] HEMATOLOGY PTT 27.5 22.9 - 08/25 [place] 35.8 /2018 [facility] HEMATOLOGY PT 14.9 12.0 - 08/25 [facility] 14.7 [facility] HEMATOLOGY INR 1.16 0.85 - 08/25 [place] 1.17 /2018 [facility] HEMATOLOGY RBC Morph Normal Normal 08/25 [facility] (08/25/19 1:34 AM) /2018 [facility] HEMATOLOGY Plt Morph Clumped Normal 08/25 [facility] (08/25/19 1:34 AM) /2018 [facility] [place] Culture: 10,000 - 50,000 CFU/mL Pseudomonas Species [facility] Urine Identification And Sensitivity To [facility] URINE AND UA Bili Negative Negative 01/31 [facility] STOOL *NA* /2018 [facility] (01/31/19 1:14 AM) [place] URINE AND UA Glucose Negative Negative 01/31 [facility] STOOL (01/31/19 1:14 AM) [facility] URINE AND UA Ketones Negative Negative 01/31 [facility] STOOL *NA* [facility] (01/31/19 1:14 AM) [place] URINE AND UA Blood Small Negative 01/31 [facility] STOOL *ABN* [facility] (01/31/19 1:14 AM) [place] URINE AND UA Protein Trace Negative 01/31 [facility] STOOL *ABN* [facility] (01/31/19 1:14 AM) [place] URINE AND UA RBC None Seen 0 - 2 01/31 [facility] (01/31/19 1:14 AM) [facility] URINE AND UA WBC 11-20 /HPF None Seen 01/31 [facility] /HPF /2018 [facility] URINE AND UA Amorph Few /HPF None Seen 01/31 [facility] STOOL Viky /HPF [facility] URINE AND UA CaOx Viky Moderate None Seen 01/31 [facility] STOOL /HPF /HPF /2018 [facility] URINE AND UA Bacteria Moderate None Seen [place] /H[place] /HPF /2018 [facility] URINE AND UA [place] Yeast Rare 01/31 [facility] URINE AND UA 0.2 0.1 - 1.0 01/31 [facility] Urobilinogen /2018 [facility] URINE AND UA Nitrite Negative Negative 01/31 [facility] (01/31/19 1:14 AM) [facility] URINE AND UA Leuk Est Small Negative 01/31 [facility] *ABN* [facility] (01/31/19 1:14 AM) [place] URINE AND UA Sq Epi Few /LPF Few /LPF 01/31 [facility] URINE AND UA Color Yellow Yellow 01/31 [facility] STOOL *NA* /2018 [facility] (01/31/19 1:14 AM) [place] URINE AND UA Turbidity Slight Cloudy Clear 01/31 [facility] (01/31/19 1:14 AM) [facility] URINE AND UA Spec Grav 1.020 <=1.030 01/31 [facility] URINE AND UA pH 6.5 5.0 - 8.0 01/31 [facility] [address] [place] [address] HEMATOLOGY Platelet 515 133 - 450 01/31 [place] Count Blue /2018 [facility] Center CHEM PANEL eGFR 139 01/31 Result Comment: The Medical eGFR is Center [...] Calcium Lvl 8.9 8.5 - 10.5 01/31 [facility] CHEM PANEL Creatinine 0.52 0.50 - 01/31 [facility] Lvl 1.40 [facility] CHEM PANEL Sodium Lvl 142 135 - 145 01/[address] CHEM PANEL Potassium Lvl 3.7 3.5 - 5.1 01/31 [facility] CHEM PANEL Chloride Lvl 107 95 - 109 01/31 [facility]2018 [facility] CHEM PANEL CO2 26 24 - 32 01/[address] CHEM PANEL Glucose Lvl 84 70 - 99 01/[address] CHEM PANEL BUN 10 7 - 22 01/[address] CHEM PANEL AGAP 12.7 10.0 - 01/31 20.0 [facility] HEMATOLOGY Eosinophils 3.4 0.0 - 4.0 01/31 [facility]2018 [facility] HEMATOLOGY Monocytes 11.4 2.0 - 12.0 01/[address] HEMATOLOGY Basophils 0.4 0.0 - 1.0 01/[address] HEMATOLOGY Monocytes # 1.0 0.0 - 0.8 01/[address] HEMATOLOGY Anisocyte 1+ None Seen 01/31 [facility] *ABN* /2018 [facility] (01/30/19 11:58 PM) [place] HEMATOLOGY Neutrophils # 4.6 1.5 - 8.1 01/31 [facility] 2019 [facility] HEMATOLOGY Lymphocytes # 3.0 1.0 - 5.5 01/31 [place] [facility] HEMATOLOGY Eosinophils # 0.3 0.0 - 0.5 01/31 [place] [facility] HEMATOLOGY Microcyte 2+ None Seen 01/31 [facility] *ABN* /2018 [facility] (01/30/19 11:58 PM) [place] HEMATOLOGY Polychrom Few 01/31 [facility] HEMATOLOGY Hypochrom 1+ None Seen 01/31 [facility] (01/30/19 11:58 PM) [facility] HEMATOLOGY Plt Morph Clumped Normal 01/31 [facility] (01/30/19 11:58 PM) [facility] HEMATOLOGY Segs 51.3 45.0 - 01/31 [facility] 75.0 [facility] HEMATOLOGY Lymphocytes 33.5 20.0 - 01/31 [place] 40.0 [facility] HEMATOLOGY Hct 31.7 36.0 - 01/31 [place] 48.0 [facility] HEMATOLOGY WBC 9.0 3.7 - 10.4 01/31 [facility] HEMATOLOGY RBC 4.32 4.20 - 01/31 [place] 5.40 /2018 [facility] HEMATOLOGY Hgb 10.1 12.0 - 01/31 [facility] 16.0 [facility] HEMATOLOGY MCV 73.4 80.0 - 01/31 [place] 98.0 /2019 [facility] HEMATOLOGY MCHC 31.9 32.0 - 01/31 [place] 36.0 /2019 [facility] HEMATOLOGY MCH 23.4 27.0 - 01/31 [place] 31.0 [facility] HEMATOLOGY Platelet Clumped 133 - 450 01/31 Result Comment: Medical Platelets Center clumped in EDTA, unable to estimate, suggest recollection in a blue top tube with an order for "Blue Top Platelet Count"
<b r/>notified Nelly Skaggs for recollect of blue top. HEMATOLOGY RDW 23.4 11.5 - 01/31 [place] 14.5 [facility] HEMATOLOGY MPV xxxxxxx 7.4 - 10.4 01/31 [facility] (01/30/19 11:58 PM) [facility] URINE CHEM U Preg Negative Negative 01/22 [facility] (01/22/19 3:38 AM) [facility] CHEM PANEL Lactic Acid 0.8 0.5 - 2.2 01/22 [place] L[place] /2018 [facility] HEMATOLOGY PT 13.3 12.0 - 01/22 [facility] 14.7 /2018 [facility] HEMATOLOGY INR 1.03 0.85 - 01/22 [facility] 1.17 /2018 [facility] HEMATOLOGY PTT 35.2 22.9 - 01/22 [place] 35.8 /2018 [facility] URINE AND UA Bili Negative Negative 01/22 [facility] STOOL *NA* /2018 [facility] (01/22/19 3:34 AM) [place] URINE AND UA Protein 30 mg/dL Negative 01/22 [facility] mg/dL /2018 [facility] URINE AND UA Ketones Negative Negative 01/22 [facility] *NA* /2018 [facility] (01/22/19 3:34 AM) [place] URINE AND UA Glucose Negative Negative 01/22 [facility] (01/22/19 3:34 AM) [facility] URINE AND UA pH 6.5 5.0 - 8.0 01/22 [facility] /2018 [facility] URINE AND UA Leuk Est Small Negative 01/22 [facility] *ABN* /2018 [facility] (01/22/19 3:34 AM) [place] URINE AND UA Nitrite Negative Negative 01/22 [facility] (01/22/19 3:34 AM) [facility] URINE AND UA 0.2 0.1 - 1.0 01/22 [facility] Urobilinogen /2018 [facility] URINE AND UA Blood Small Negative 01/22 [facility] *ABN* /2018 [facility] (01/22/19 3:34 AM) [place] URINE AND UA Color Yellow Yellow 01/22 [facility] *NA* /2018 [facility] (01/22/19 3:34 AM) [place] URINE AND UA Spec Grav 1.020 <=1.030 01/22 [facility] STOOL /2018 [facility] URINE AND UA Turbidity Slight Cloudy Clear 01/22 [facility] (01/22/19 3:34 AM) [facility] URINE AND UA Bacteria Few /HPF None Seen 01/22 [facility] STOOL /HPF /2018 [facility] URINE AND UA Mucus Few /LPF None Seen 01/22 [facility] STOOL /LPF /2018 [facility] URINE AND UA RBC 3-5 /HPF 0 - 2 01/22 [facility] URINE AND UA CaOx Vik[place] Occasional None Seen 01/22 [place] /HPF /HPF /2018 [facility] URINE AND UA Sq Epi Rare /LPF Few /LPF 01/22 [facility] URINE AND UA WBC 3-5 /HPF None Seen 01/22 [facility] STOOL /HPF [facility] BLOOD BANK Antibody Scrn Negative 01/22 [facility] RESULTS (01/22/19 3:08 AM) [facility] BLOOD BANK ABO/Rh A NEG 01/22 [facility] RESULTS [facility] ELECTROLYTE AGAP 12.5 10.0 - 01/22 [facility] S 20.0 [facility] ELECTROLYTE eGFR 128 01/22 Result [facility] Comment: The Medical eGFR is Center [...] by the estimated BMI. ELECTROLYTE Calcium Lvl 8.9 8.5 - 10.5 01/22 [place] [facility] ELECTROLYTE CO2 26 24 - 32 01/22 [facility] S [facility] ELECTROLYTE Sodium Lvl 138 135 - 145 01/22 [place] [facility] ELECTROLYTE Creatinine 0.67 0.50 - 01/22 [facility] S Lvl 1.40 [facility] ELECTROLYTE Chloride Lvl 103 95 - 109 01/22 [place] S [facility] ELECTROLYTE Potassium Lvl 3.5 3.5 - 5.1 01/22 [place] [facility] ELECTROLYTE Glucose Lvl 89 70 - 99 01/22 [facility] S [facility] ELECTROLYTE BUN 11 7 - 22 01/22 [facility] S [facility] HEMATOLOGY MPV ----- 7.4 - 10.4 01/22 (01/22/19 3:08 AM) [facility] HEMATOLOGY Platelet Clumped 133 - 450 01/22 [facility] HEMATOLOGY RDW 23.9 11.5 - 01/22 14.5 [facility] HEMATOLOGY MCV 73.7 80.0 - 01/22 [place] 98.0 [facility] HEMATOLOGY MCH 23.2 27.0 - 01/22 31.0 [facility] HEMATOLOGY Hct 32.3 36.0 - 01/22 48.0 [facility] HEMATOLOGY MCHC 31.5 32.0 - 01/22 36.0 [facility] HEMATOLOGY RBC 4.38 4.20 - 01/22 [place] 5.40 [facility] HEMATOLOGY Hgb 10.2 12.0 - 01/22 16.0 [facility] HEMATOLOGY WBC 10.6 3.7 - 10.4 01/22 [facility] HEMATOLOGY Eosinophils 5.7 0.0 - 4.0 01/22 [facility] HEMATOLOGY Monocytes 7.9 2.0 - 12.0 01/22 [facility] HEMATOLOGY Lymphocytes # 2.9 1.0 - 5.5 01/22 [facility] [place] [facility] HEMATOLOGY Neutrophils # 6.2 1.5 - 8.1 01/22 [facility] [place] [facility] HEMATOLOGY Basophils 0.5 0.0 - 1.0 01/22 [facility] HEMATOLOGY Lymphocytes 27.0 20.0 - 01/22 [place] 40.0 [facility] HEMATOLOGY Plt Morph Clumped Normal 01/22 [facility] (01/22/19 3:08 AM) [facility] HEMATOLOGY Segs 58.9 45.0 - 01/22 [place] 75.0 [facility] HEMATOLOGY Microcyte 2+ None Seen 01/22 [facility] *ABN* /2018 [facility] (01/22/19 3:08 AM) [place] HEMATOLOGY Basophils # 0.1 0.0 - 0.2 01/22 s [facility] HEMATOLOGY Monocytes # 0.8 0.0 - 0.8 01/22 [facility] HEMATOLOGY Eosinophils # 0.6 0.0 - 0.5 01/22 [facility] HEMATOLOGY Anisocyte 1+ None Seen 01/22 [facility] *ABN* /2018 [facility] (01/22/19 3:08 AM) [place] CHEM PANEL Creatinine 0.51 0.50 - 01/15 [facility] Lvl 1.40 [facility] CHEM PANEL BUN 9 7 - 22 01/15 [facility] CHEM PANEL Sodium Lvl 138 135 - 145 01/15 [facility] CHEM PANEL Glucose Lvl 60 70 - 99 01/15 [facility] CHEM PANEL eGFR 140 01/15 Result Comment: [facility] eGFR is Center calculated using the CKD-EPI [...] CHEM PANEL AGAP 11.3 10.0 - 01/15 [facility] 20.0 [facility] CHEM PANEL Potassium Lvl 4.3 3.5 - 5.1 01/15 [facility] CHEM PANEL Calcium Lvl 8.4 8.5 - 10.5 01/15 [facility] CHEM PANEL CO2 19 - 01/15 [facility] CHEM PANEL Chloride Lvl 112 95 - 109 01/15 [facility] CHEM PANEL Creatinine 0.53 0.50 - 01/14 [facility] Lvl 1.40 [facility] CHEM PANEL Chloride Lvl 111 95 - 109 01/14 [facility] CHEM PANEL CO2 22 - 32 01/14 [facility] CHEM PANEL Sodium Lvl 140 135 - 145 01/14 2018 [facility] CHEM PANEL AGAP 9.9 10.0 - 01/14 . [facility] CHEM PANEL eGFR 138 01/14 Result [...] Calcium Lvl 8.5 8.5 - 10.5 01/14 [facility] CHEM PANEL Glucose Lvl 89 70 - 99 01/14 [facility] CHEM PANEL BUN 7 7 - 22 01/14 [facility] CHEM PANEL Potassium Lvl 2.9 3.5 - 5.1 01/14 Result Comment: [facility] Result(s) [facility] by. Read back OK. ELECTROLYTE AGAP 9.7 10.0 - 01/12 [facility] S . [facility] ELECTROLYTE CO2 23 24 - 32 01/12 [facility] ELECTROLYTE Chloride Lvl 112 95 - 109 01/12 [facility] ELECTROLYTE Calcium Lvl 8.2 8.5 - 10.5 01/12 [place] [facility] ELECTROLYTE eGFR 137 01/12 Result [facility] Comment: The Medical eGFR is Center [...] be multiplied by the estimated BMI. ELECTROLYTE Glucose Lvl 107 70 - 99 01/12 [facility] S [facility] ELECTROLYTE Creatinine 0.55 0.50 - 01/12 [facility] Lvl 1.40 [facility] ELECTROLYTE BUN 11 7 - 22 01/12 [facility] S /2018 [facility] ELECTROLYTE Sodium Lvl 141 135 - 145 01/12 [facility] S [facility] ELECTROLYTE Potassium Lvl 3.7 3.5 - 5.1 01/12 [facility] HEMATOLOGY Hgb 10.2 12.0 - 01/12 [facility] 16.0 [facility] AMIKACIN:LYNNE Culture: >10,000/cfu/ml Escherichia coli 01/12 [facility] SC:PT:ISOLA Urine >10,000/cfu/ml Enterococcus Species Medical TE:ORDQN:[facility] AMIKACIN:LYNNE Enterococcus Enterococc 01/12 [facility] SC:PT:ISOLA Species us Species /2018 Medical TE:ORDQN:[facility] C AMIKACIN:LYNNE Escherichia Escherichi 01/12 [facility] SC:PT:ISOLA coli a coli /2018 Medical TE:ORDQN:[facility] C BLOOD BANK Antibody Scrn Negative 01/12 [facility] as RESULTS (01/12/19 8:53 AM) [facility] BLOOD BANK ABO/Rh A NEG 01/12 [facility] RESULTS [facility] CHEM PANEL Magnesium Lvl 1.8 1.8 - 2.4 12/19 [place] [facility] CHEM PANEL Phosphorus 4.3 2.5 - 4.5 12/19 [facility] CHEM PANEL eGFR 134 12/19 Result [...] by the estimated BMI. CHEM PANEL Total Protein 8.4 6.4 - 8.4 12/19 [facility] CHEM PANEL CO2 26 24 - 32 12/[address] CHEM PANEL Calcium Lvl 9.3 8.5 - 10.5 12/19 [facility] CHEM PANEL Potassium Lvl 3.7 3.5 - 5.1 12/19 [facility] CHEM PANEL Chloride Lvl 109 95 - 109 12/19 [facility] CHEM PANEL Bili Total 0.3 0.2 - 1.3 12/[address] CHEM PANEL Alk Phos 75 39 - 136 12/19 [facility]2018 [facility] CHEM PANEL Albumin Lvl 3.1 3.5 - 5.0 12/19 [facility] CHEM PANEL AST 20 0 - 37 12/19 [facility]2018 [facility] CHEM PANEL ALT 20 0 - 65 12/[address] CHEM PANEL Glucose Lvl 86 70 - 99 12/19 [facility]2018 [facility] CHEM PANEL BUN 11 7 - 22 12/[address] CHEM PANEL Sodium Lvl 141 135 - 145 12/19 [facility]2018 [facility] CHEM PANEL Creatinine 0.58 0.50 - 12/19 [facility] Lvl 1.40 [facility] CHEM PANEL A/G Ratio 0.6 0.7 - 1.6 12/19 [facility] CHEM PANEL B/C Ratio 19 6 - 25 12/19 2018 [facility] CHEM PANEL Globulin 5.3 2.7 - 4.2 12/19 2018 [facility] CHEM PANEL AGAP 9.7 10.0 - 12/19 [place] 20.0 [facility] HEMATOLOGY MCHC 31.3 32.0 - 12/19 [place] 36.0 [facility] HEMATOLOGY Hct 31.8 36.0 - 12/19 [place] 48.0 [facility] HEMATOLOGY MCV 69.8 80.0 - 12/19 [place] 98.0 [facility] HEMATOLOGY MCH 21.9 27.0 - 12/19 [place] 31.0 [facility] HEMATOLOGY RDW 25.2 11.5 - 12/19 [facility] 14.5 [facility] HEMATOLOGY Hgb 10.0 12.0 - 12/19 [place] 16.0 [facility] HEMATOLOGY WBC 6.7 3.7 - 10.4 12/19 [facility] HEMATOLOGY RBC 4.56 4.20 - 12/19 [place] 5.40 [facility] HEMATOLOGY MPV 9.1 7.4 - 10.4 12/19 [facility] HEMATOLOGY Platelet clumped 133 - 450 12/19 [facility] HEMATOLOGY Segs 53.6 45.0 - 12/19 [place] 75.0 [facility] HEMATOLOGY Plt Morph Clumped Normal 12/19 [facility] (12/19/18 4:22 AM) [facility] HEMATOLOGY Microcyte 2+ None Seen 12/19 [place] *ABN* /2018 [facility] (12/19/18 4:22 AM) [place] HEMATOLOGY Anisocyte 1+ None Seen 12/19 [facility] *ABN* /2018 [facility] (12/19/18 4:22 AM) [place] HEMATOLOGY Eosinophils # 0.3 0.0 - 0.5 12/19 [facility] xa [facility] HEMATOLOGY Monocytes # 0.8 0.0 - 0.8 12/19 [place] [facility] HEMATOLOGY Lymphocytes # 2.0 1.0 - 5.5 12/19 [facility] xa [facility] HEMATOLOGY Neutrophils # 3.6 1.5 - 8.1 12/19 [facility] xa [facility] HEMATOLOGY Basophils 0.5 0.0 - 1.0 12/19 [facility] HEMATOLOGY Eosinophils 4.2 0.0 - 4.0 12/19 [facility] HEMATOLOGY Monocytes 11.8 2.0 - 12.0 12/19 [facility]2018 [facility] HEMATOLOGY Lymphocytes 29.9 20.0 - 12/19 [place] 40.0 [facility] CHEM PANEL Phosphorus 4.2 2.5 - 4.5 12/18 [facility]2018 [facility] CHEM PANEL Magnesium Lvl 1.9 1.8 - 2.4 12/18 [place] [facility] ELECTROLYTE AGAP 11.9 10.0 - 12/18 [facility] 20.0 [facility] ELECTROLYTE B/C Ratio 23 6 - 25 12/18 [facility]2018 [facility] ELECTROLYTE A/G Ratio 0.6 0.7 - 1.6 12/[address] ELECTROLYTE Globulin 5.2 2.7 - 4.2 12/18 [facility]2018 [facility] ELECTROLYTE eGFR 133 12/18 [facility] Comment: The Medical eGFR is Center calculated [...] be multiplied by the estimated BMI. ELECTROLYTE Creatinine 0.60 0.50 - 12/18 [facility] Lvl 1.40 [facility] ELECTROLYTE BUN 14 7 - 22 12/[address] ELECTROLYTE ALT 17 0 - 65 12/18 [facility]2018 [facility] ELECTROLYTE Albumin Lvl 3.1 3.5 - 5.0 12/18 [facility]2018 [facility] ELECTROLYTE Bili Total 0.2 0.2 - 1.3 12/18 [facility] ELECTROLYTE Alk Phos 75 39 - 136 12/18 [facility] 2018 [facility] ELECTROLYTE CO2 25 24 - 32 12/18 [facility] 2018 [facility] ELECTROLYTE Glucose Lvl 85 70 - 99 12/18 [facility]2018 [facility] ELECTROLYTE Sodium Lvl 143 135 - 145 12/18 [facility] ELECTROLYTE AST 15 0 - 37 12/18 [facility] 2018 [facility] ELECTROLYTE Chloride Lvl 110 95 - 109 12/18 [facility] ELECTROLYTE Potassium Lvl 3.9 3.5 - 5.1 12/18 [facility] ex [facility] ELECTROLYTE Total Protein 8.3 6.4 - 8.4 12/18 [facility] ex [facility] ELECTROLYTE Calcium Lvl 9.3 8.5 - 10.5 12/18 [place] [facility] HEMATOLOGY WBC X 10x3 5.5 3.7 - 10.4 12/18 [facility] HEMATOLOGY Hgb 9.9 12.0 - 12/18 16.0 [facility] HEMATOLOGY RBC X 10x6 4.44 4.20 - 12/18 [place] 5.40 2019 [facility] HEMATOLOGY Hct 30.8 36.0 - 12/18 [facility] 48.0 [facility] HEMATOLOGY MCH 22.2 27.0 - 12/18 31.0 [facility] HEMATOLOGY RDW 25.5 11.5 - 12/18 14.5 [facility] HEMATOLOGY MCV 69.5 80.0 - 12/18 [place] 98.0 2019 [facility] HEMATOLOGY MCHC 32.0 32.0 - 12/18 [place] 36.0 2019 [facility] HEMATOLOGY MPV 8.7 7.4 - 10.4 12/18 [facility]2018 [facility] HEMATOLOGY Platelet xxxxxxx 1 133 - 450 12/18 Result [facility] (12/18/18 2:38 AM) /2018 Comment: Medic al Platelets Center clumped in EDTA, unable to estimate, suggest recollection in a blue top tube with an order for "Blue Top Platelet Count" HEMATOLOGY Eosinophils 5.5 0.0 - 4.0 12/18 [facility] HEMATOLOGY Monocytes 13.1 2.0 - 12.0 12/18 2018 [facility] HEMATOLOGY Lymphocytes 26.4 20.0 - 12/18 [place] 40.0 [facility] HEMATOLOGY Segs 54.3 45.0 - 12/18 [place] 75.0 [facility] HEMATOLOGY Basophils 0.7 0.0 - 1.0 12/18 [facility]2018 [facility] HEMATOLOGY Anisocyte 1+ None Seen 12/18 [facility] (12/18/18 2:38 AM) [place] HEMATOLOGY Microcyte 2+ None Seen 12/18 [facility] (12/18/18 2:38 AM) [place] HEMATOLOGY Eosinophils # 0.3 0.0 - 0.5 12/18 [facility]2018 [facility] HEMATOLOGY Lymphocytes # 1.5 1.0 - 5.5 12/18 [facility]2018 [facility] HEMATOLOGY Neutrophils # 3.0 1.5 - 8.1 12/18 [facility]2018 [facility] HEMATOLOGY Monocytes # 0.7 0.0 - 0.8 12/18 [facility] CHEM PANEL Magnesium Lvl 2.0 1.8 - 2.4 12/17 [facility]2018 [facility] CHEM PANEL Phosphorus 4.4 2.5 - 4.5 12/17 [facility]2018 [facility] CHEM PANEL A/G Ratio 0.6 0.7 - 1.6 12/17 [facility]2018 [facility] CHEM PANEL Globulin 5.2 2.7 - 4.2 12/17 [facility]2018 [facility] CHEM PANEL B/C Ratio 22 6 - 25 12/17 [facility]2018 [facility] CHEM PANEL AGAP 10.1 10.0 - 12/17 [facility] 20.0 [facility] CHEM PANEL eGFR 133 12/17 [facility] Comment: The Medical eGFR is Center [...] CHEM PANEL Creatinine 0.59 0.50 - 12/17 [facility] Lvl 1.40 [facility] CHEM PANEL BUN 13 7 - 22 12/[address] CHEM PANEL Sodium Lvl 138 135 - 145 12/[address] CHEM PANEL Potassium Lvl 4.1 3.5 - 5.1 12/[address] CHEM PANEL Total Protein 8.3 6.4 - 8.4 12/[address] CHEM PANEL Albumin Lvl 3.1 3.5 - 5.0 12/[address] CHEM PANEL Chloride Lvl 108 95 - 109 12/[address] CHEM PANEL CO2 24 24 - 32 12/[address] CHEM PANEL ALT 18 0 - 65 12/[address] CHEM PANEL Calcium Lvl 9.3 8.5 - 10.5 12/17 [facility]2018 [facility] CHEM PANEL Alk Phos 82 39 - 136 12/[address] CHEM PANEL AST 17 0 - 37 12/[address] CHEM PANEL Glucose Lvl 70 70 - 99 12/[address] CHEM PANEL Bili Total 0.2 0.2 - 1.3 12/[address] HEMATOLOGY MPV xxxxxxx 7.4 - 10.4 12/17 [facility] (12/17/18 4:36 AM) [facility] HEMATOLOGY Platelet See Note 2 133 - 450 12/17 [facility] (12/17/18 4:36 AM) Comment: Medic al Platelets Center clumped in EDTA, unable to estimate, suggest recollection in a blue top tube with an order for "Blue Top Platelet Count" HEMATOLOGY MCHC 31.4 32.0 - 12/17 [facility] 36.0 [facility] HEMATOLOGY Hct 32.9 36.0 - 12/17 [place] 48.0 /2018 [facility] HEMATOLOGY MCV 69.9 80.0 - 12/17 [place] 98.0 [facility] HEMATOLOGY MCH 22.0 27.0 - 12/17 [place] 31.0 [facility] HEMATOLOGY WBC 6.9 3.7 - 10.4 12/17 [facility] HEMATOLOGY RBC 4.70 4.20 - 12/17 [place] 5.40 /2018 [facility] HEMATOLOGY Hgb 10.3 12.0 - 12/17 [place] 16.0 [facility] HEMATOLOGY RDW 25.3 11.5 - 12/17 [place] 14.5 [facility] HEMATOLOGY Microcyte 2+ None Seen 12/17 [facility] *ABN* [facility] (12/17/18 4:36 AM) [place] HEMATOLOGY Monocytes # 0.9 0.0 - 0.8 12/17 [facility] HEMATOLOGY Eosinophils # 0.4 0.0 - 0.5 12/17 [facility] x[facility] HEMATOLOGY Lymphocytes # 2.1 1.0 - 5.5 12/17 [facility] HEMATOLOGY Anisocyte 1+ None Seen 12/17 [facility] *ABN* [facility] (12/17/18 4:36 AM) [place] HEMATOLOGY Basophils # 0.1 0.0 - 0.2 12/17 [facility] HEMATOLOGY Eosinophils 5.8 0.0 - 4.0 12/17 [facility] HEMATOLOGY Lymphocytes 30.7 20.0 - 12/17 [place] 40.0 [facility] HEMATOLOGY Monocytes 12.6 2.0 - 12.0 12/17 [facility] HEMATOLOGY Neutrophils # 3.4 1.5 - 8.1 12/17 [facility] HEMATOLOGY Basophils 0.9 0.0 - 1.0 12/17 [facility] HEMATOLOGY Segs 50.0 45.0 - 12/17 [place] 75.0 [facility] HEMATOLOGY Schistocyte 1-3 per HPF None Seen 12/16 [facility] (12/16/18 4:36 AM) [facility] HEMATOLOGY Plt Morph Clumped Normal 12/16 [facility] (12/16/18 4:36 AM) [facility] HEMATOLOGY Plt Morph Clumped Normal 12/15 [facility] (12/15/18 3:46 AM) /2018 Medica l Center AMPICILLIN: Culture: >100,000 CFU/mL Enterococcus Species 12/14 [place] SUSC:PT:ISO Urine 50,000 - 100,000 CFU/mL Proteus vulgaris Medical LATE:ORDQN: Center CAPRICE AMPICILLIN: Proteus Proteus 12/14 [facility] SUSC:PT:ISO vulgaris vulgaris /2018 Medical LATE:ORDQN: Center CAPRICE AMPICILLIN: Enterococcus Enterococc 12/14 [facility] [place] SUSC:PT:ISO Species us Species Medical LATE:ORDQN: Center CAPRICE MOLECULAR mecA Not Detected Not 12/14 [facility] DIAGNOSTIC Methicillin (12/14/18 6:24 AM) Detected [facility] Resistance [place] MOLECULAR vanB Not Detected Not 12/14 [facility] DIAGNOSTIC Vancomycin (12/14/18 6:24 AM) Detected [facility] Resistance [place] MOLECULAR Pepe Not Detected Not 12/14 [facility] DIAGNOSTIC Vancomycin (12/14/18 6:24 AM) Detected [facility] Resistance [place] MOLECULAR Staphylococcu Detected Not 12/14 [facility] DIAGNOSTIC s spp. *ABN* Detected [facility] (12/14/18 6:24 AM) Center MOLECULAR Streptococcus Not Detected Not 12/14 [facility] DIAGNOSTIC spp. (12/14/18 6:24 AM) Detected [facility] Center MOLECULAR Listeria spp. Not Detected Not 12/14 [place] DIAGNOSTIC (12/14/18 6:24 AM) [facility] MOLECULAR E. faecium Not Detected Not 12/14 [place] DIAGNOSTIC (12/14/18 6:24 AM) [facility]ed [facility] MOLECULAR S. pneumoniae Not Detected Not 12/14 [place] DIAGNOSTIC (12/14/18 6:24 AM) Detected [facility] MOLECULAR S. pyogenes Not Detected Not 12/14 [place] [facility] (12/14/18 6:24 AM) Detected [facility] MOLECULAR E. faecalis Not Detected Not 12/14 [place] [facility] (12/14/18 6:24 AM) Detected [facility] MOLECULAR S. agalactiae Not Detected Not 12/14 [place] DIAGNOSTIC (12/14/18 6:24 AM) Detected [facility] Center MOLECULAR S. anginosus Not Detected Not 12/14 [facility] [place] DIAGNO[place]IC grp (12/14/18 6:24 AM) Detected [facility] MOLECULAR S. Not Detected Not 12/14 [facility] DIAGNOSTIC lugdunensis (12/14/18 6:24 AM) [facility] MOLECULAR S. Not Detected Not 12/14 [facility] DIAGNOSTIC epidermidis (12/14/18 6:24 AM) [facility] MOLECULAR S. aureus Not Detected Not 12/14 [place] (12/14/18 6:24 AM) [facility] URINE AND UA Amorph Moderate None Seen 12/14 [facility] STOOL Viky /HPF /HPF /2018 [facility] URINE AND UA WBC 21-50 /HPF None Seen 12/14 [facility] STOOL /HPF /2018 [facility] URINE AND UA Bacteria Many /HPF None Seen 12/14 [place] STOOL /HPF /2018 [facility] URINE AND UA RBC 0-2 /HPF 0 - 2 12/14 [facility] STOOL /2018 [facility] URINE AND UA Sq Epi None Seen Few 12/14 [facility] (12/14/18 4:23 AM) /2018 [facility] URINE AND UA 0.2 0.1 - 1.0 12/14 [facility] STOOL Urobilinogen /2018 [facility] URINE AND UA Blood Small Negative 12/14 [facility] STOOL *ABN* /2018 [facility] (12/14/18 4:23 AM) [place] URINE AND UA Leuk Est Large Negative 12/14 [facility] *ABN* [facility] (12/14/18 4:23 AM) [place] URINE AND UA Nitrite Negative Negative 12/14 [facility] (12/14/18 4:23 AM) /2018 [facility] URINE AND UA pH 6.5 5.0 - 8.0 12/14 [facility] STOOL /2018 [facility] URINE AND UA Spec Grav 1.020 <=1.030 12/14 [place] STOOL /2018 [facility] URINE AND UA Bili Negative Negative 12/14 [facility] STOOL *NA* /2018 [facility] (12/14/18 4:23 AM) Center URINE AND UA Protein 30 mg/dL Negative 12/14 [facility] STOOL mg/dL [facility] URINE AND UA Ketones 15 mg/dL Negative 12/14 [facility] STOOL mg/dL /2018 [facility] URINE AND UA Glucose Negative Negative 12/14 [facility] STOOL (12/14/18 4:23 AM) /2018 [facility] URINE AND UA Turbidity Cloudy Clear 12/14 [facility] STOOL *ABN* [facility] (12/14/18 4:23 AM) [place] URINE AND UA Color Yellow Yellow 12/14 [facility] STOOL *NA* [facility] (12/14/18 4:23 AM) [place] HEMATOLOGY Basophils # 0.1 0.0 - 0.2 12/14 [place] [facility] HEMATOLOGY Schistocyte 1-3 per HPF None Seen 12/14 [facility] (12/14/18 3:08 AM) [facility] CHEM PANEL Lactic Acid 1.1 0.5 - 2.2 12/14 [place] Lvl /2018 [facility] HEMATOLOGY Basophils # 0.1 0.0 - 0.2 12/14 [facility] IMMUNOLOGY CDC HIV 4th Negative Negative 12/14 [facility] GEN *NA* [facility] (12/14/18 1:53 AM) [place] BLOOD BANK Antibody Scrn Negative 04/19 [facility] RESULTS (04/19/18 11:26 AM) [facility] BLOOD BANK ABO/Rh A NEG 04/19 [facility] RESULTS /2017 [facility] BLOOD BANK RBC product Product available 04/19 [facility] RESULTS (04/19/18 9:46 AM) [facility] CHEM PANEL Magnesium Lvl 2.1 1.8 - 2.4 04/18 [place] [facility] CHEM PANEL Phosphorus 3.2 2.5 - 4.5 04/18 [facility] CHEM PANEL eGFR 143 04/18 Result Comment: [facility] eGFR is Center calculated using the CKD-EPI [...] Glucose Lvl 88 70 - 99 04/18 [facility] CHEM PANEL Calcium Lvl 8.2 8.5 - 10.5 04/18 [place] [facility] CHEM PANEL Chloride Lvl 103 95 - 109 04/18 [place] [facility] CHEM PANEL CO2 25 24 - 32 04/18 [facility] CHEM PANEL Potassium Lvl 3.4 3.5 - 5.1 04/18 [place] [facility] CHEM PANEL Sodium Lvl 138 135 - 145 04/18 [facility] CHEM PANEL Creatinine 0.49 0.50 - 04/18 [place] Lvl 1.40 [facility] CHEM PANEL BUN 7 7 - 22 04/18 [facility] CHEM PANEL AGAP 13.4 10.0 - 04/18 20.0 [facility] HEMATOLOGY Platelet See Note 2 133 - 450 04/18 [place] (04/18/18 4:54 AM) Comment: Medic al Platelets Center clumped in EDTA, unable to estimate, suggest recollection in a blue top tube with an order for "Blue Top Platelet Count"
No tified to nurse Dipti Keenan at 04/18/2018 07:55 HEMATOLOGY MPV xxxxxxx 7.4 - 10.4 04/18 [facility] (04/18/18 4:54 AM) [facility] HEMATOLOGY WBC X 10x3 6.0 3.7 - 10.4 04/18 s [facility] HEMATOLOGY RBC X 10x6 3.18 4.20 - 04/18 [place] 5.40 [facility] HEMATOLOGY Hgb 7.0 12.0 - 04/18 Result [facility] 16. Comment: Medical Critical Center Result(s) called to Marlene Harvey at 04/18/2018 07:27 by CN. Read back OK. HEMATOLOGY Hct 22.4 36.0 - 04/18 [place] 48.0 [facility] HEMATOLOGY MCV 70.3 80.0 - 04/18 [place] 98.0 [facility] HEMATOLOGY MCHC 31.2 32.0 - 04/18 [facility] [place] 36.0 [facility] HEMATOLOGY RDW 23.1 11.5 - 04/18 [place] 14.5 [facility] HEMATOLOGY MCH 22.0 27.0 - 04/18 [place] 31.0 [facility] HEMATOLOGY Microcyte 2+ None Seen 04/18 [facility] (04/18/18 4:54 AM) Center HEMATOLOGY Monocytes # 0.8 0.0 - 0.8 04/18 [facility] HEMATOLOGY Eosinophils # 0.3 0.0 - 0.5 04/18 [facility] HEMATOLOGY Anisocyte 1+ None Seen 04/18 [facility] (04/18/18 4:54 AM) Center HEMATOLOGY Basophils 0.5 0.0 - 1.0 04/18 [facility] HEMATOLOGY Neutrophils # 3.4 1.5 - 8.1 04/18 [facility] HEMATOLOGY Segs 56.8 45.0 - 04/18 [place] 75.0 [facility] HEMATOLOGY Lymphocytes # 1.5 1.0 - 5.5 04/18 [facility] HEMATOLOGY Lymphocytes 24.5 20.0 - 04/18 [place] 40.0 [facility] HEMATOLOGY Monocytes 14.0 2.0 - 12.0 04/18 [facility] HEMATOLOGY Eosinophils 4.2 0.0 - 4.0 04/18 [facility] CHEM PANEL eGFR 155 04/17 Result Comment: The Medical eGFR is Center [...] Glucose Lvl 79 70 - 99 04/17 [facility] CHEM PANEL BUN 6 7 - 22 04/17 [facility] CHEM PANEL Creatinine 0.38 0.50 - 04/17 [place] Lvl 1.40 [facility] CHEM PANEL Sodium Lvl 137 135 - 145 04/17 [facility] CHEM PANEL Chloride Lvl 103 95 - 109 04/17 [place] [facility] CHEM PANEL CO2 23 24 - 32 04/17 2017 [facility] CHEM PANEL Calcium Lvl 7.7 8.5 - 10.5 04/17 [place] [facility] CHEM PANEL Potassium Lvl 3.8 3.5 - 5.1 04/17 [facility] CHEM PANEL AGAP 14.8 10.0 - 04/17 20.0 [facility] CHEM PANEL Phosphorus 2.8 2.5 - 4.5 04/17 [facility] CHEM PANEL Magnesium Lvl 2.0 1.8 - 2.4 04/17 [facility] HEMATOLOGY RDW 22.4 11.5 - 04/17 [place] 14.5 [facility] HEMATOLOGY MCHC 31.9 32.0 - 04/17 [place] 36.0 [facility] HEMATOLOGY MCH 22.1 27.0 - 04/17 [place] 31.0 [facility] HEMATOLOGY Hgb 7.1 12.0 - 04/17 16.0 [facility] HEMATOLOGY RBC 3.23 4.20 - 04/17 [place] 5.40 [facility] HEMATOLOGY WBC 8.6 3.7 - 10.4 04/17 [facility] HEMATOLOGY Hct 22.4 36.0 - 04/17 [place] 48.0 [facility] HEMATOLOGY MCV 69.4 80.0 - 04/17 [place] 98.0 [facility] HEMATOLOGY MPV xxxxxxx 7.4 - 10.4 04/17 [place] (04/17/18 3:57 AM) [facility] HEMATOLOGY Platelet See Note 3 133 - 450 04/17 Result [facility] (04/17/18 3:57 AM) Comment: Medic al Platelets Center clumped in EDTA, unable to estimate, suggest recollection in a blue top tube with an order for "Blue Top Platelet Count.
No tified to nurse Anna Graves at 04/17/2018 08:34 HEMATOLOGY Microcyte 2+ None Seen 04/17 [facility]* [facility] (04/17/18 3:57 AM) [place] HEMATOLOGY Eosinophils # 0.2 0.0 - 0.5 04/[address] HEMATOLOGY Anisocyte 1+ None Seen 04/17 [facility] (04/17/18 3:57 AM) [place] HEMATOLOGY Monocytes # 1.1 0.0 - 0.8 04/[address] HEMATOLOGY Lymphocytes # 1.0 1.0 - 5.5 04/[address] HEMATOLOGY Lymphocytes 11.9 20.0 - 04/17 [facility] 40.0 [facility] HEMATOLOGY Monocytes 13.0 2.0 - 12.0 04/[address] HEMATOLOGY Eosinophils 2.5 0.0 - 4.0 04/[address] HEMATOLOGY Segs 72.2 45.0 - 04/17 [facility] 75.0 2017 [facility] HEMATOLOGY Basophils 0.4 0.0 - 1.0 04/[address] HEMATOLOGY Neutrophils # 6.2 1.5 - 8.1 04/[address] Culture: No Growth 04/16 [facility] CHEM PANEL Albumin Lvl 1.9 3.5 - 5.0 04/[address] CHEM PANEL Alk Phos 69 39 - 136 04/[address] CHEM PANEL Bili Indirect Unable to 0.0 - 1.0 04/[address] CHEM PANEL Bili Total 0.3 0.2 - 1.3 04/[address] CHEM PANEL Bili Direct <0.1 0.0 - 0.3 04/[address] CHEM PANEL ALT 10 0 - 65 04/[address] CHEM PANEL AST 11 0 - 37 04/[address] CHEM PANEL A/G Ratio 0.5 0.7 - 1.6 04/[address] CHEM PANEL Albumin Lvl 2.0 3.5 - 5.0 04/16 [facility] CHEM PANEL Globulin 4.3 2.7 - 4.2 04/16 [facility] CHEM PANEL Total Protein 6.3 6.4 - 8.4 04/16 [facility] CHEM PANEL Magnesium Lvl 2.2 1.8 - 2.4 04/16 [facility] CHEM PANEL Phosphorus 2.5 2.5 - 4.5 04/16 [facility] ELECTROLYTE AGAP 15.2 10.0 - 04/16 [facility] S 20.0 [facility] ELECTROLYTE eGFR 154 04/16 [facility] Comment: The Medical eGFR is Center calculated [...] be multiplied by the estimated BMI. ELECTROLYTE Glucose Lvl 84 70 - 99 04/16 [facility] ELECTROLYTE BUN 5 7 - 22 04/16 [facility] ELECTROLYTE Creatinine 0.39 0.50 - 04/16 [facility] S Lvl 1.40 [facility] ELECTROLYTE Sodium Lvl 136 135 - 145 04/16 [facility] ELECTROLYTE Potassium Lvl 3.2 3.5 - 5.1 04/16 [place] [facility] ELECTROLYTE Chloride Lvl 103 95 - 109 04/16 [facility] ELECTROLYTE CO2 21 24 - 32 04/16 [facility] ELECTROLYTE Calcium Lvl 7.7 8.5 - 10.5 04/16 [facility] [place] [facility] HEMATOLOGY Tear Cell Slight 04/16 [facility] HEMATOLOGY Lymphocytes 11.7 20.0 - 04/16 [place] 40.0 [facility] HEMATOLOGY Segs 74.5 45.0 - 04/16 [place] 75.0 [facility] HEMATOLOGY Microcyte 2+ None Seen 04/16 [place] *ABN* [facility] (04/16/18 4:58 AM) [place] HEMATOLOGY Anisocyte 1+ None Seen 04/16 [facility] *ABN* Medical (04/16/18 4:58 AM) [place] HEMATOLOGY Eosinophils # 0.2 0.0 - 0.5 04/16 [place] [facility] HEMATOLOGY Lymphocytes # 1.3 1.0 - 5.5 04/16 [facility] [place] [facility] HEMATOLOGY Monocytes # 1.3 0.0 - 0.8 04/16 [place] [facility] HEMATOLOGY Basophils 0.3 0.0 - 1.0 04/16 [facility] HEMATOLOGY Monocytes 11.8 2.0 - 12.0 04/16 [facility] HEMATOLOGY Neutrophils # 8.3 1.5 - 8.1 04/16 [facility] [place] [facility] HEMATOLOGY Eosinophils 1.7 0.0 - 4.0 04/16 [place] [facility] HEMATOLOGY MPV xxxxxxx 7.4 - 10.4 04/16 [facility] (04/16/18 4:58 AM) [facility] HEMATOLOGY Platelet See Note 4 133 - 450 04/16 [facility]04[facility]18 4[facility]58 AM[facility] Comment: Medic al Platelets Center clumped in EDTA, unable to estimate, suggest recollection in a blue top tube with an order for "Blue Top Platelet Count"
no tified to nurse Terra Velazquez at 04/16/2018 08:09 HEMATOLOGY MCH 22.2 27.0 - 04/16 [place] 31.0 [facility] HEMATOLOGY MCV 70.2 80.0 - 04/16 [place] 98.0 [facility] HEMATOLOGY RDW 22.3 11.5 - 04/16 [place] 14.5 [facility] HEMATOLOGY MCHC 31.5 32.0 - 04/16 [place] 36.0 [facility] HEMATOLOGY Hct 22.6 36.0 - 04/16 [facility] 48.0 /2017 [facility] HEMATOLOGY Hgb 7.1 12.0 - 04/16 [facility] 16.0 /2017 [facility] HEMATOLOGY RBC 3.21 4.20 - 04/16 [facility] 5.40 /2017 [facility] HEMATOLOGY WBC 11.2 3.7 - 10.4 04/[address] URINE AND UA <=1.0 0.1 - 1.0 04/16 [facility] Urobilinogen mg/dL [facility] URINE AND UA Sq Epi None Seen 04/16 [facility] [address] [place] [address] URINE AND UA pH 6.5 5.0 - 8.0 04/16 [facility] [address] [place] [address] URINE AND UA Color Yellow Yellow 04/16 [facility] *NA* [facility] (04/16/18 4:58 AM) [place] URINE AND UA Turbidity Slight Clear 04/16 [facility] *ABN* [facility] (04/16/18 4:58 AM) [place] URINE AND UA Protein 50 mg/dL Negative 04/16 [facility] mg/dL [facility] URINE AND UA Spec Grav 1.010 <=1.030 04/16 [facility] [address] [place] [address] URINE AND UA Mucus Few /LPF None Seen 04/16 [facility] /LPF /2017 [facility] URINE AND UA WBC 24 0 - 5 04/16 [facility] [address] [place] [address] URINE AND UA RBC >182 0 - 2 04/16 [facility] [address] [place] [address] URINE AND UA Glucose Negative Negative 04/16 [facility] mg/dL mg/dL [facility] URINE AND UA Bili Negative Negative 04/16 [facility] STOOL *NA* [facility] (04/16/18 4:58 AM) [place] URINE AND UA Ketones 60 mg/dL Negative 04/16 [facility] STOOL mg/dL [facility] URINE AND UA Blood Moderate Negative 04/16 [facility] STOOL *ABN* [facility] (04/16/18 4:58 AM) [place] URINE AND UA Leuk Est Large Negative 04/16 [facility] STOOL *ABN* [facility] (04/16/18 4:58 AM) [place] URINE AND UA Nitrite Negative Negative 04/16 [facility] (04/16/18 4:58 AM) /2017 Medica l [place] BODY FLUIDS Alb BF Type Pleural 04/15 [facility] [place] *NA* Medical (04/15/18 10:34 AM) Cente r BODY FLUIDS Albumin BF 0.4 04/15 Medical Center BODY FLUIDS Clarity BF Clear Clear 04/15 [place] (04/15/18 10:34 AM) [facility] [place] BODY FLUIDS RBC BF 14 04/15 Medical [place] BODY FLUIDS Supernat BF Light Yellow Colorless 04/15 [facility] [place] *ABN* Medical (04/15/18 10:34 AM) Cente r BODY FLUIDS Color BF Light Yellow Colorless 04/15 [place] (04/15/18 10:34 AM) /2017 [facility] BODY FLUIDS CellCnt BF Pleural 04/15 [place] Type (04/15/18 10:34 AM) /2017 [facility] BODY FLUIDS Macrophage BF 12 04/15 [facility] [place] BODY FLUIDS Lymph BF 11 04/15 [facility] BODY FLUIDS Segs BF 77 04/15 [facility] [place] BODY FLUIDS WBC BF 20 04/15 [facility] [place] BODY FLUIDS Prot BF Type Pleural 04/15 [place] *[place]* /2017 [facility] (04/15/18 10:34 AM) Cente r BODY FLUIDS Protein BF 0.8 04/15 [facility] BODY FLUIDS Gluc BF Type Pleural 04/15 [place] *NA* /2017 [facility] (04/15/18 10:34 AM) [facility] Glucose BF 103 04/15 [facility] BODY FLUIDS LDH BF Type Pleural 04/15 [place] *NA* /2017 Medical (04/15/18 10:34 AM) Cente r BODY FLUIDS LDH BF 17 04/15 Medical Center Gram Stain Gram Stain 04/15 [facility] Report Performed Medical By: Center [facility] Culture: No Growth 04/15 [facility] Aspirate/Body /2017 Medical Fluid[facility]Tissue Center CHEM PANEL LDH 293 98 - 192 04/15 [facility] [place] HEMATOLOGY INR 1.12 0.85 - 04/15 [place] 1. Medical [place] HEMATOLOGY PT 14.4 12.0 - 04/15 [place] 14.7 Medical [place] HEMATOLOGY Plt Morph Clumped 04/15 [facility] (04/15/18 12:02 AM) /2017 [facility] HEMATOLOGY PTT 30.5 22.9 - 04/15 [place] 35.8 [facility] CHEM PANEL LDH 184 98 - 192 04/14 [facility] HEMATOLOGY PT 14.1 12.0 - 04/14 [place] 14. [facility] HEMATOLOGY INR 1.09 0.85 - 04/14 [place] 1. [facility] HEMATOLOGY PTT 33.3 22.9 - 04/14 [place] 35.8 [facility] HEMATOLOGY PTT 43.9 22.9 - 04/14 [place] 35. [facility] HEMATOLOGY Atypical 0.0 <=0.0 % 04/14 [place] Lymphs [facility] HEMATOLOGY Bands 0.0 0.0 - 11.0 04/14 [facility] PARATHYROID Ca Ion WB 1.19 1.05 - 04/14 [place] PROFILE 09.23 [facility] PARATHYROID Ca Norm WB 1.18 1.05 - 04/14 [facility] PROFILE 09.23 [facility] HEMATOLOGY Platelet 261 133 - 450 04/13 [facility] Count Blue [facility] HEMATOLOGY Atypical 0.0 <=0.0 % 04/13 [facility] Lymph [facility] HEMATOLOGY Bands 2.0 0.0 - 11.0 04/13 [facility] HEMATOLOGY INR 1.23 0.85 - 04/13 [place] 09.15 [facility] HEMATOLOGY PT 15.6 12.0 - 04/13 [facility] 14. [facility] PARATHYROID Ca Norm WB 0.99 1.05 - 04/13 [place] PROFILE 09.23 [facility] PARATHYROID Ca Ion WB 1.01 1.05 - 04/13 [place] PROFILE 09.23 [facility] HEMATOLOGY Plt Morph Clumped 04/13 [facility] (04/12/18 9:49 PM) /2017 [facility] HEMATOLOGY Atypical 0.0 <=0.0 % 04/13 [facility] Lymphs [facility] HEMATOLOGY Bands 4.0 0.0 - 11.0 04/13 [facility] HEMATOLOGY Platelet 254 133 - 450 04/12 [facility] Count Blue [facility] HEMATOLOGY Neut Vac Slight 04/12 [facility] PARATHYROID Ca Norm WB 1.03 1.05 - 04/12 [place] PROFILE 09.23 [facility] PARATHYROID Ca Ion WB 1.06 1.05 - 04/12 [facility] [place] PROFILE 1. [facility] ANEMIA Ferritin Lvl 34 5 - 204 04/12 [facility] ANEMIA UIBC 334 110 - 370 04/12 [facility] ANEMIA % Satur Fe 3 12 - 57 04/12 [facility] ANEMIA Iron 10 30 - 160 04/12 [facility] ANEMIA TIBC 344 228 - 428 04/12 [facility] CHEM PANEL LDH 174 98 - 192 04/12 [facility] HEMATOLOGY Schistocyte 1-3 per HPF None Seen 04/12 [facility] (04/12/18 9:28 AM) [facility] HEMATOLOGY Neut Vac Slight 04/12 [facility] HEMATOLOGY D-Dimer 1.84 04/12 [facility] HEMATOLOGY Fibrinogen 618 230 - 510 04/12 [facility] HEMATOLOGY PB Smear Path Peripheral 04/12 [facility] [place] blood Medical smear Center shows microcytic hypochromi c [...] trate buffer) may eliminate this problem. CPT: 91100 IMMUNOLOGY Haptoglobin 195 16 - 200 04/12 [facility] NITROFURANT Culture: 10,000 - 50,000 CFU/mL Enterococcus Species 04/12 [facility] OIN:SUSC:PT Urine 10,000 - 50,000 CFU/mL Pseudomonas aeruginosa Medical :ISOLATE:OR 10,000 - 50,000 CFU/mL Escherichia coli [place] DQN:CAPRICE NITROFURANT Escherichia [place] 04/12 [place] OIN:SUSC:PT coli a coli Medical :ISOLATE:OR Center DQN:CAPRICE NITROFURANT Pseudomonas Pseudomona 04/12 [place] OIN:SUSC:PT aeruginosa s Medical :ISOLATE:OR aeruginosa Center DQN:CAPRICE NITROFURANT Enterococcus Enterococc 04/12 [facility] OIN:SUSC:PT Species us Species Medical :ISOLATE:OR Center DQN:CAPRICE CHEM PANEL Lactic Acid 1.2 0.5 - 2.2 04/12 [facility] Lvl /2017 [facility] CHEM PANEL Procalcitonin 175.56 0.00 - 04/12 [place] Lvl 0.10 /2017 Comment: [facility] Critical [facility] Result(s) called to Debby Thomas at 04/12/2018 04:10 by stp. Read back OK. CHEM PANEL Bili Total 1.0 0.2 - 1.3 04/[address] CHEM PANEL Alk Phos 52 39 - 136 04/[address] CHEM PANEL AST 13 0 - 37 04/[address] CHEM PANEL ALT 16 0 - 65 04/[address] CHEM PANEL Albumin Lvl 2.7 3.5 - 5.0 04/12 [facility] /2017 [facility] CHEM PANEL Total Protein 7.2 6.4 - 8.4 04/12 [place] [facility] CHEM PANEL A/G Ratio 0.6 0.7 - 1.6 04/[address] CHEM PANEL Globulin 4.5 2.7 - 4.2 04/[address] CHEM PANEL B/C Ratio 17 6 - 25 04/[address] HEMATOLOGY Neut Vac Moderate None Seen 04/12 [facility] *ABN* /2017 [facility] (04/12/18 2:51 AM) [place] HEMATOLOGY Acanthocyte Moderate None Seen 04/12 [facility] *ABN* /2017 [facility] (04/12/18 2:51 AM) [place] HEMATOLOGY Schistocyte 1-3 per HPF None Seen 04/12 [facility] (04/12/18 2:51 AM) [facility] [place] HEMATOLOGY Plt Morph Clumped 04/12 [facility] (04/12/18 2:51 AM) [facility] [place] MOLECULAR OXA Not Detected Not 04/12 [facility] DIAGNOSTIC (carbapenemas (04/12/18 2:51 AM) Detected Medical e) [place] MOLECULAR VIM Not Detected Not 04/12 [facility] DIAGNOSTIC (carbapenemas (04/12/18 2:51 AM) Detected Medical e) [place] MOLECULAR Proteus spp. Not Detected Not 04/12 [place] DIAGNOSTIC (04/12/18 2:51 AM) [facility]ed [facility]M (ESBL[facility] Not Detected Not 04/12 [place] DIAGNOSTIC (04/12/18 2:51 AM) Detected /2017 Tn dical [place] MOLECULAR KPC Not Detected Not 04/12 [facility] DIAGNOSTIC (carbapenemas (04/12/18 2:51 AM) Detected /2017 Medical e) Center MOLECULAR IMP Not Detected Not 04/12 [facility] DIAGNOSTIC (carbapenemas (04/12/18 2:51 AM) Detected /2017 Medical e) [place] MOLECULAR NDM Not Detected Not 04/12 [facility] DIAGNOSTIC (carbapenemas (04/12/18 2:51 AM) Detected /2017 Medical e) [place] MOLECULAR K. pneumoniae Not Detected Not 04/12 [facility] DIAGNOSTIC (04/12/18 2:51 AM) Detected /2017 [facility] MOLECULAR P. aeruginosa Not Detected Not 04/12 [facility] DIAGNOSTIC (04/12/18 2:51 AM) Detected /2017 [facility] MOLECULAR K. oxytoca Not Detected Not 04/12 [facility] [facility] DIAGNOSTIC (04/12/18 2:51 AM) Detected /2017 [facility] MOLECULAR Citrobacter Not Detected Not 04/12 [place] DIAGNO[place] spp. (04/12/18 2:51 AM) Detected /2017 [facility] MOLECULAR Enterobacter Not Detected Not 04/12 [facility] [place] DIAGNOSTIC spp. (04/12/18 2:51 AM) Detected /2017 [facility] MOLECULAR Acinetobacter Not Detected Not 04/12 [facility] DIAGNOSTIC spp. (04/12/18 2:51 AM) Detected /2017 [facility] MOLECULAR E. coli Detected Not 04/12 [facility] DIAGNOSTIC *ABN* Detected /2017 [facility] (04/12/18 2:51 AM) [place] URINE AND UA RBC 4 0 - 2 04/12 [facility] STOOL /2018 [facility] Center URINE AND UA WBC 17 0 - 5 04/12 [facility] STOOL /2017 [facility] Center URINE AND UA Leuk Est Large Negative 04/12 [facility] STOOL *ABN* /2017 [facility] (04/12/18 2:51 AM) Center URINE AND UA <=1.0 0.1 - 1.0 04/12 [facility] STOOL Urobilinogen mg/dL /2017 [facility] URINE AND UA Bacteria Occasional None Seen 04/12 [place] STOOL /HPF /HPF /2017 [facility] URINE AND UA Sq Epi None Seen 04/12 [facility] STOOL /2017 [facility] URINE AND UA Glucose Negative Negative 04/12 [facility] mg/dL mg/dL /2017 [facility] URINE AND UA Protein Negative Negative 04/12 [facility] mg/dL mg/dL [facility] URINE AND UA Ketones 10 mg/dL Negative 04/12 [facility] mg/dL [facility] URINE AND UA Bili Negative Negative 04/12 [facility] *NA* [facility] (04/12/18 2:51 AM) [place] URINE AND UA Nitrite Positive Negative 04/12 [facility] *ABN* [facility] (04/12/18 2:51 AM) [place] URINE AND UA Blood Trace Negative 04/12 [facility] *ABN* [facility] (04/12/18 2:51 AM) [place] URINE AND UA Spec Grav 1.008 <=1.030 04/12 [facility] URINE AND UA Color Light Yellow Yellow 04/12 [facility] *NA* [facility] (04/12/18 2:51 AM) [place] URINE AND UA pH 5.5 5.0 - 8.0 04/12 [facility] URINE AND UA Turbidity Clear Clear 04/12 [facility] (04/12/18 2:51 AM) [facility] URINE CHEM U Preg Negative Negative 04/12 [facility] (04/12/18 2:51 AM) [facility] CHEM PANEL eGFR 137 03/03 Result Comment: The Medical eGFR is Center [...] PANEL Calcium Lvl 8.2 8.5 - 10.5 07 [facility] CHEM PANEL AGAP 15.1 10.0 - 07/05 20.0 [facility] CHEM PANEL CO2 20 24 - 32 07/ [facility]2017 [facility] CHEM PANEL Glucose Lvl 89 70 - 99 07/ [address] CHEM PANEL BUN 7 7 - 22 07/ [address] CHEM PANEL Creatinine 0.56 0.50 - 0705 [place] Lvl 1.40 [facility] CHEM PANEL Chloride Lvl 116 95 - 109 07/ [facility] CHEM PANEL Sodium Lvl 148 135 - 145 07/ [address] CHEM PANEL Potassium Lvl 3.1 3.5 - 5.1 07 [facility] HEMATOLOGY Monocytes # 0.9 0.0 - 0.8 07/ [facility] HEMATOLOGY Monocytes 7.7 2.0 - 12.[address] HEMATOLOGY Eosinophils # 0.1 0.0 - 0.5 07 [facility] HEMATOLOGY Eosinophils 0.7 0.0 - 4.0 07/ [facility] HEMATOLOGY Basophils 0.3 0.0 - 1.0 07 [facility]2017 [facility] HEMATOLOGY Lymphocytes 9.1 20.0 - 07 [facility] 40.0 [facility] HEMATOLOGY Segs 82.2 45.0 - 0705 [facility] 75.0 [facility] HEMATOLOGY Microcyte 2+ None Seen 03/03 [facility] *ABN* /2017 [facility] (03/03/18 1:02 AM) [place] HEMATOLOGY Lymphocytes # 1.1 1.0 - 5.5 07 [facility] HEMATOLOGY Segs-Bands # 9.9 1.5 - 8.1 07 [facility] HEMATOLOGY Hgb 9.2 12.0 - 07 [place] 16.0 [facility] HEMATOLOGY Hct 29.9 36.0 - 07 48.0 [facility] HEMATOLOGY WBC 12.1 3.7 - 10.4 07 [facility]2017 [facility] HEMATOLOGY RBC 4.18 4.20 - 0705 5.40 [facility] HEMATOLOGY MCV 71.6 80.0 - 03/03 98.0 [facility] HEMATOLOGY RDW 19.9 11.5 - 03/03 14.5 /2017 [facility] HEMATOLOGY MCH 22.1 27.0 - 03/03 31.0 /2017 [facility] HEMATOLOGY MCHC 30.9 32.0 - 03/03 [place] 36.0 [facility] HEMATOLOGY MPV xxxxxxx 7.4 - 10.4 03/03 [facility] (03/03/18 1:02 AM) [facility] HEMATOLOGY Platelet See Note 2 133 - 450 03/03 Result [facility] (03/03/18 1:02 AM) Comment: Medica l Platelets Center clumped in EDTA, unable to estimate, suggest recollection in a blue top tube with an order for "Blue Top Platelet Count" CHEM PANEL eGFR 98 03/02 Result Comment: The Medical eGFR is Center [...] Sodium Lvl 145 135 - 145 03/02 [facility] CHEM PANEL Potassium Lvl 4.0 3.5 - 5.1 03/02 [place] [facility] CHEM PANEL BUN 12 7 - 22 03/02 [facility] CHEM PANEL Creatinine 0.87 0.50 - 07 [place] Lvl 1.40 /2017 [facility] CHEM PANEL Chloride Lvl 113 95 - 109 03/02 [place] /[place] [facility] CHEM PANEL CO2 19 24 - 32 03/02 [facility] CHEM PANEL AGAP 17.0 10.0 - 07/ 20.0 [facility] CHEM PANEL Calcium Lvl 8.3 8.5 - 10.5 03/02 [facility] CHEM PANEL Glucose Lvl 124 70 - 99 07 [facility]2017 [facility] HEMATOLOGY Platelet See Note 3 133 - 450 03/02 Result [facility] (03/02/18 2:10 AM) Comment: Medica l Platelets Center clumped in EDTA, unable to estimate, suggest recollection in a blue top tube with an order for "Blue Top Platelet Count"
An alyzer gave a Platelet Count of 126. HEMATOLOGY MPV See Note 7.4 - 10.4 03/02 [facility] (03/02/18 2:10 AM) [facility] HEMATOLOGY RBC X 10x6 4.38 4.20 - 07 5.40 [facility] HEMATOLOGY WBC X 10x3 16.5 3.7 - 10.4 03/02 [facility] HEMATOLOGY MCV 72.6 80.0 - 07 98.0 [facility] HEMATOLOGY Hct 31.8 36.0 - 07 48.0 2018 [facility] HEMATOLOGY MCHC 30.7 32.0 - 07/ 36.0 2018 [facility] HEMATOLOGY MCH 22.3 27.0 - 07 31.0 2018 [facility] HEMATOLOGY Hgb 9.8 12.0 - 07/ 16.0 [facility] HEMATOLOGY RDW 20.1 11.5 - 07/ 14.5 [facility] HEMATOLOGY Monocytes 4.9 2.0 - 12.0 07 [facility] HEMATOLOGY Segs-Bands # 15.1 1.5 - 8.1 07 [facility] HEMATOLOGY Lymphocytes 3.8 20.0 - 07 [place] 40.0 2018 [facility] HEMATOLOGY Segs 91.2 45.0 - 07/ [facility] 75.0 2018 [facility] HEMATOLOGY Basophils 0.1 0.0 - 1.0 07/ [facility] HEMATOLOGY Lymphocytes # 0.6 1.0 - 5.5 07 [facility] [place] [facility] HEMATOLOGY Monocytes # 0.8 0.0 - 0.8 03/02 [facility] HEMATOLOGY Microcyte 2+ None Seen 03/02 [facility] (03/02/18 2:10 AM) [place] HEMATOLOGY Toxic Gran See Note 5 None Seen 03/02 Result [facility] (03/02/18 2:10 AM) Comment: [facility] [facility] HEMATOLOGY Neut Vac Moderate None Seen 03/02 [facility] *ABN* /2017 [facility] (03/02/18 2:10 AM) [place] HEMATOLOGY Plt Morph Clumped 03/02 [facility] (03/02/18 2:10 AM) [facility] ENDOCRINOLO hCG Tot <1 03/01 [facility] GY [facility] HEMATOLOGY INR 1.33 0.85 - 03/01 [facility] 1.17 [facility] HEMATOLOGY PT 16.6 12.0 - 03/01 [facility] 14.7 [facility] CHEM PANEL Lactic Acid 1.5 0.5 - 2.2 03/01 [facility] Lvl [facility] CHEM PANEL Bili Indirect 0.3 0.0 - 1.0 03/01 [facility] CHEM PANEL AST 23 0 - 37 03/[address] CHEM PANEL ALT 21 0 - 65 03/[address] CHEM PANEL Bili Direct 0.1 0.0 - 0.3 03/01 [facility] CHEM PANEL Alk Phos 51 39 - 136 03/[address] CHEM PANEL Bili Total 0.4 0.2 - 1.3 03/[address] CHEM PANEL Albumin Lvl 3.4 3.5 - 5.0 03/01 [facility] CHEM PANEL Total Protein 8.2 6.4 - 8.4 03/01 [facility] CHEM PANEL A/G Ratio 0.7 0.7 - 1.6 03/[address] CHEM PANEL Globulin 4.8 2.7 - 4.2 03/[address] ELECTROLYTE AGAP 15.1 10.0 - 03/01 [facility] S 20.0 [facility] ELECTROLYTE eGFR 88 03/01 Result [facility] Comment: The Medical eGFR is Center [...] by the estimated BMI. ELECTROLYTE CO2 21 24 - 32 03/[address] ELECTROLYTE Calcium Lvl 8.6 8.5 - 10.5 03/01 [facility] ELECTROLYTE Potassium Lvl 4.1 3.5 - 5.1 03/01 [place] [facility]2017 [facility] ELECTROLYTE Sodium Lvl 137 135 - 145 03/[address] ELECTROLYTE Creatinine 0.95 0.50 - 03/01 [facility] Lvl 1.40 [facility] ELECTROLYTE BUN 17 7 - 22 03/[address] ELECTROLYTE Chloride Lvl 105 95 - 109 03/[address] ELECTROLYTE Glucose Lvl 109 70 - 99 03/[address] HEMATOLOGY Microcyte 2+ None Seen 03/01 [facility] *ABN* /2017 [facility] (03/01/18 3:34 AM) [place] HEMATOLOGY Eosinophils 0.1 0.0 - 4.0 03/[address] HEMATOLOGY Monocytes 5.8 2.0 - 12.0 03/[address] HEMATOLOGY Segs 90.6 45.0 - 03/01 [facility] 75.0 [facility] HEMATOLOGY Lymphocytes 3.3 20.0 - 03/01 [facility] 40.0 [facility] HEMATOLOGY Segs-Bands # 22.3 1.5 - 8.1 03/[address] HEMATOLOGY Lymphocytes # 0.8 1.0 - 5.5 03/01 [place] [facility] HEMATOLOGY Basophils 0.2 0.0 - 1.0 03/01 [facility] HEMATOLOGY Basophils # 0.1 0.0 - 0.2 03/01 [place] [facility] HEMATOLOGY Monocytes # 1.4 0.0 - 0.8 03/01 [place] [facility] HEMATOLOGY Hypochrom 1+ None Seen 03/01 [facility] (03/01/18 3:34 AM) [facility] HEMATOLOGY Polychrom slight 03/01 [facility] HEMATOLOGY Platelet 377 133 - 450 03/01 [facility] Count Blue /2017 [facility] HEMATOLOGY MCH 22.3 27.0 - 03/01 [place] 31.0 [facility] HEMATOLOGY MCHC 31.1 32.0 - 03/01 [facility] 36.0 [facility] HEMATOLOGY Hct 33.6 36.0 - 03/01 [facility] 48.0 [facility] HEMATOLOGY Hgb 10.4 12.0 - 03/01 [place] 16.0 [facility] HEMATOLOGY WBC 24.6 3.7 - 10.4 03/01 [facility] HEMATOLOGY RBC 4.68 4.20 - 03/01 [place] 5.40 /2017 [facility] HEMATOLOGY MCV 71.8 80.0 - 03/01 [facility] 98.0 [facility] HEMATOLOGY RDW 19.6 11.5 - 03/01 [facility] 14.5 [facility] HEMATOLOGY MPV See Note 1 7.4 - 10.4 03/01 [place] (03/01/18 3:34 AM) Comment: Medica l Platelets Center clumped in EDTA, unable to estimate, suggest recollection in a blue top tube with an order for "Blue Top Platelet Count"
or dered and verified HEMATOLOGY Platelet See Note 4 133 - 450 03/01 [place] (03/01/18 3:34 AM) Comment: Medica l Platelets Center clumped in EDTA, unable to estimate, suggest recollection in a blue top tube with an order for "Blue Top Platelet Count"
or dered and verified URINE AND UA Leuk Est Small Negative 03/01 [facility] STOOL *ABN* /2017 Medical (03/01/18 3:28 AM) Center URINE AND UA pH 8.0 5.0 - 8.0 03/01 [facility] STOOL /[address] [place] [address] URINE AND UA Spec Grav 1.010 <=1.030 03/01 [facility] STOOL /[address] [place] [address] URINE AND UA Glucose Negative Negative 03/01 [facility] (03/01/18 3:28 AM) /[address] [place] [address] URINE AND UA Protein Trace Negative 03/01 [facility] *ABN* /2017 [facility] (03/01/18 3:28 AM) [place] URINE AND UA Turbidity Cloudy Clear 03/01 [facility] *ABN* /2017 [facility] (03/01/18 3:28 AM) [place] URINE AND UA Color Yellow Yellow 03/01 [facility] *NA* /2017 [facility] (03/01/18 3:28 AM) [place] URINE AND UA Blood Small Negative 03/01 [facility] *ABN* [facility] (03/01/18 3:28 AM) [place] URINE AND UA Bili Negative Negative 03/01 [facility] *NA* /2017 [facility] (03/01/18 3:28 AM) [place] URINE AND UA Nitrite Positive Negative 03/01 [facility] *ABN* [facility] (03/01/18 3:28 AM) [place] URINE AND UA 0.2 0.1 - 1.0 03/01 [facility] Urobilinogen /[address] [place] [address] URINE AND UA Ketones 15 mg/dL Negative 03/01 [facility] STOOL mg/dL /[address] [place] [address] URINE AND UA Mucus Few /LPF None Seen 03/01 [facility] STOOL /LPF /[address] [place] [address] URINE AND UA Amorph Moderate None Seen 03/01 [facility] Viky /HPF /HPF /[address] [place] [address] URINE AND UA Bacteria Many /HPF None Seen 03/01 [place] STOOL /HPF /2017 [facility] URINE AND UA WBC 11-20 /HPF None Seen 03/01 [facility] STOOL /HPF /[address] [place] [address] URINE AND UA RBC 3-5 /HPF 0 - 2 03/01 [facility] /[address] [place] [address] URINE AND UA Sq Epi Few /LPF Few /LPF 03/01 [facility] /[address] [place] [address] NITROFURANT Culture: >100,000 CFU/mL Enterococcus Species 03/01 [facility] OIN:SUSC:PT Urine . /2017 Medical :ISOLATE:OR <10,000 CFU/mL Gram Negative [facility] [place] DQN:CAPRICE NITROFURANT Enterococcus Enterococc 03/01 [place] OIN:SUSC:PT Species us Species /2017 Medical :ISOLATE:OR Center DQN:CAPRICE URINE CHEM U Preg Negative Negative 11/06 [facility] (11/06/17 9:30 AM) [facility] URINE AND UA RBC 3-5 /HPF 0 - 2 11/06 [facility] STOOL Medical [place] URINE AND UA WBC 3-5 /HPF None Seen 11/06 [facility] STOOL /HPF /2017 Medical [place] URINE AND UA Mucus Rare /LPF None Seen 11/06 [place] STOOL /LPF /2017 Medical [place] URINE AND UA Bacteria Few /HPF None [place]en 11[place] /HPF /2017 Medical [place] URINE AND UA Sq Epi Few /LPF Few /LPF 11/06 [facility] The [facility] URINE AND UA Amorph Few /HPF None Seen 11/06 [facility] STOOL Viky /HPF /2017 [facility] [place] URINE AND UA Glucose Negative Negative 11/06 [facility] (11/06/17 9:10 AM) [facility] URINE AND UA Bili Negative Negative 11/06 [facility] *NA* [facility] (11/06/17 9:10 AM) [place] URINE AND UA Ketones Negative Negative 11/06 [facility] *NA* [facility] (11/06/17 9:10 AM) [place] URINE AND UA Blood Negative Negative 11/06 [facility] (11/06/17 9:10 AM) [facility] URINE AND UA Nitrite Positive Negative 11/06 [facility] *ABN* [facility] (11/06/17 9:10 AM) [place] URINE AND UA 0.2 0.1 - 1.0 11/06 [facility] Urobilinogen /2017 [facility] URINE AND UA Leuk Est Small Negative 11/06 [facility] STOOL *ABN* [facility] (11/06/17 9:10 AM) Center URINE AND UA Color Yellow Yellow 11/06 [facility] STOOL *NA* [facility] (11/06/17 9:10 AM) Center URINE AND UA Turbidity Cloudy Clear 11/06 [facility] STOOL *ABN* [facility] (11/06/17 9:10 AM) Center URINE AND UA Protein Trace Negative 11/06 [facility] *ABN* [facility] (11/06/17 9:10 AM) Center URINE AND UA Spec Grav 1.020 <=1.030 11/06 [facility] /[address] [place] [address] URINE AND UA pH 8.5 5.0 - 8.0 11/[address] CHEM PANEL Globulin 4.6 2.7 - 4.2 11/[address] CHEM PANEL A/G Ratio 0.7 0.7 - 1.6 11/[address] CHEM PANEL Total Protein 8.0 6.4 - 8.4 11/[address] CHEM PANEL Albumin Lvl 3.4 3.5 - 5.0 11/06 [facility]2017 [facility] CHEM PANEL Bili Direct 0.1 0.0 - 0.3 11/06 [facility]2017 [facility] CHEM PANEL Bili Indirect 0.3 0.0 - 1.0 11/[address] CHEM PANEL ALT 30 0 - 65 11/[address] CHEM PANEL Alk Phos 48 39 - 136 11/[address] CHEM PANEL Bili Total 0.4 0.2 - 1.3 11/[address] CHEM PANEL AST 47 0 - 37 11/[address] CHEM PANEL Lipase Lvl 317 73 - 393 11/[address] ELECTROLYTE AGAP 16.8 10.0 - 11/06 [facility] 20.0 [facility] ELECTROLYTE eGFR 132 11/06 [facility] Comment: The Medical eGFR is Center calculated [...] the estimated BMI. ELECTROLYTE Calcium Lvl 9.1 8.5 - 10.5 11/06 [facility] xa [facility] ELECTROLYTE CO2 22 24 - 32 11/06 [facility] S [facility] ELECTROLYTE Chloride Lvl 105 95 - 109 11/06 [facility] ELECTROLYTE Glucose Lvl 96 70 - 99 11/06 [facility] S 2017 [facility] ELECTROLYTE Creatinine 0.63 0.50 - 11/06 [facility] S Lvl 1.40 [facility] ELECTROLYTE BUN 11 7 - 22 11/06 [facility] 2017 [facility] ELECTROLYTE Sodium Lvl 139 135 - 145 11/06 [facility] ELECTROLYTE Potassium Lvl 4.8 3.5 - 5.1 11/06 [facility] [place] Comment: [facility] Moderately Hemolyzed. HEMATOLOGY Microcyte 1+ None [facility] (11/06/17 9:01 AM) [place] HEMATOLOGY Anisocyte 1+ None Seen 11/06 [facility]* [facility] (11/06/17 9:01 AM) [place] HEMATOLOGY Eosinophils # 0.2 0.0 - 0.5 11/06 [facility] HEMATOLOGY Hypochrom 1+ None Seen 11/06 [facility] (11/06/17 9:01 AM) [facility] HEMATOLOGY Eosinophils 2.2 0.0 - 4.0 11/06 [facility] HEMATOLOGY Monocytes 10.3 2.0 - 12.0 11/06 2017 [facility] HEMATOLOGY Basophils 0.4 0.0 - 1.0 11/06 2017 [facility] HEMATOLOGY Lymphocytes # 1.8 1.0 - 5.5 11/06 [facility] xa [facility] HEMATOLOGY Segs-Bands # 7.5 1.5 - 8.1 11/06 [facility] HEMATOLOGY Monocytes # 1.1 0.0 - 0.8 11/06 [facility] HEMATOLOGY Plt Morph See Note 1 11/06 Result [facility] (11/06/17 9:01 AM) Comment: Due M edical to Center occassional clumps, the actual count may be slightly higher. HEMATOLOGY Segs 70.0 45.0 - 11/06 [place] 75.0 [facility] HEMATOLOGY Lymphocytes 17.1 20.0 - 11/06 [place] 40.0 /2018 [facility] HEMATOLOGY Platelet 136 133 - 450 11/06 [facility] HEMATOLOGY MCH 23.9 27.0 - 11/06 [facility] 31.0 /2017 [facility] HEMATOLOGY RDW 22.9 11.5 - 11/06 [facility] 14.5 /2017 [facility] HEMATOLOGY MCHC 30.1 32.0 - 11/06 [facility] 36.0 /2017 [facility] HEMATOLOGY Hct 33.3 36.0 - 11/06 [facility] 48.0 /2017 [facility] HEMATOLOGY RBC 4.20 4.20 - 11/06 [facility] 5.40 /2017 [facility] HEMATOLOGY Hgb 10.0 12.0 - 11/06 [facility] 16.0 [facility] HEMATOLOGY MCV 79.3 80.0 - 11/06 [facility] 98.0 /2017 [facility] HEMATOLOGY WBC 10.7 3.7 - 10.4 11/06 [facility] HEMATOLOGY MPV 9.0 7.4 - 10.4 11/06 [facility] [address] [place] [address] IMMUNOLOGY CDC HIV 4th Negative Negative 11/06 [facility] *NA* /2017 [facility] (11/06/17 8:43 AM) [place] Pathology Reports No Data Provided for This Section Diagnostic Reports Report Value Date Source Nephrostomy drain perc PROCEDURE: Genitourinary catheter placeme nt 10/24/2019 [facility] VR Procedural Personnel Center Attending physician(s): Dr. Park Fellow physician(s): None Resident physician(s): None Advanced practice provider(s): None Pre-procedure diagnosis: Urosepsis secondary to urinary obstruction Post-procedure diagnosis: Same Indication: 39-year-old with right hydroureteronephrosis secondary to obstruction request is for nephroureteral catheter placement. Catheter(s) placed because t he previous catheter(s) became dislodged within 30 days of placement (QCDR): No Additional clinical history: None Complications: No immediate complications. IMPRESSION: Successful ultrasound and fl uoroscopy-guided placement of a 10-Singaporean x 24 cm nephroureteral catheter. Plan: Routine nephroureteral cath exchange every 10-12 weeks. PROCEDURE SUMMARY - Target organ: Right kidney - Image-guided placement of genitourinary cathet er(s) - Additional procedure(s): None PROCEDURE DETAILS: Pre-procedure Consent: Informed consent fo r the procedure including risks, benefits and alternatives was obtained and time-out was performed prior to the procedure. Preparation: The site was pr epared and draped using maximal sterile barrier technique including cutaneous antisepsis. Anesthesia/sedation Level of anesthesia/sedation: General anesthesia Anesthesia/sedation administ ered by: Independent trained observer under attending supervision with continuous monitoring of the patient's level of consciousness and physiologic status Total intra-service sedation time (minutes): 20 Right genitourinary catheter placement Local anesthesia was adminis tered. A needle was advanced into the renal collecting system under ultrasound and fluoroscopy guidance. A wire was passed down the ureter into the bladder, the tract was ser ially dilated, and a nephrou reteral tube was placed. Contrast injection was performed. Genitourinary catheter placed: [place] Findings: Hydroureter nephrosis draining into th e ileal conduit. External catheter securement: Non-absorbable sut ure Additional genitourinary system intervention Genitourinary intervention: None Location of intervention: Not applicable Device used: Not applicable Description of intervention: Not applicable Post-intervention findings: Not applicable Contrast Contrast agent: Visipaque 320 Contrast volume (mL): 30 Radiation Dose Fluoroscopy time (minutes): 9.3 Reference air kerma (mGy): 129.1 Additional Details Additional description of procedure: None Equipment details: None Specimens removed: None. A sample was sent for a nalysis. Estimated blood loss (mL): Less than 10 Standardized report: [email or web address] Attestation Signer name: Clive Park MD I attest that I was present for the entire procedure. I reviewed the stored images and agree with the report as written. 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 TECHNIQUE: Chest 1 view FINDINGS: Comparison is made to 08/26/2019. There is a moderately large left pleural effusion which obscures the left base and extends peripherally to cap the left apex, also layering posteriorly. This results in diminished size of the left lung. There are patchy left infra hilar opacities that could be due to atelectasis with or without superimposed consolidation such as aspiration or pneumonia. The right lung is clear and well-expanded. Cardiomediastinal silhouette is unchanged. Again seen is the stent projecting over the upper right atrium and lower SVC, which has been seen dating back to August 2006. There is rightward curvature of the spine. A left-sided ventriculopleural shunt remains in place. IMPRESSION: 1. Moderately large left pleural effusion, uncha nged. 2. The left lung remains dim inished in volume with left infrahilar opacity could be due to atelectasis with or without superimposed consolidation. Renal Stone CT EXAM: CT ABDOMEN AND PELVIS WITHOUT CONTRAST [facility] DATE: 10/21/2019 2:31 AM [facility] er INDICATION: - right sided flank pain ADDITIONAL INFORMATION: None. COMPARISON: 09/29/2019 TECHNIQUE: Volumetric CT acq uisition of the abdomen and pelvis without contrast. Axial, coronal and sagittal reconstructions. IV contrast: None. Oral contrast: None. DLP: 552 mGy-cm DISCUSSION: Lines and tubes: None. Lower thorax: Moderate to la rge left pleural effusion has increased in size compared to 09/29/2019. Partially imaged catheter seen in the left pleural effusion. Compressive atelectasis seen in the left l ower lobe. Nonspecific foci of groundglass haziness and linear platelike atelectasis seen in the right lower lobe. Liver: Normal. Biliary tree: No intra- or extrahepatic biliary ductal dilation. Gallbladder: Normal. No CT evidence of gallstone s. Pancreas: Normal. Spleen: Normal. Adrenals: Normal. Kidneys: Right kidney and urete r: Right kidney is slightly small with multifocal scarring with interval development of perinephric fat stranding and also mild enlargement. Interval development of mild to m oderate right hydroureterone phrosis with urothelial thickening and surrounding fat stranding with nonobstructing calculus in the proximal ureter measuring up to 1.5 cm in size. Few smaller nonobstructin g calculi seen in the calyceal system and also i n the proximal ureter. Left kidney and ureter: Normal. No stones or hydronephrosis. Bladder: Urinary bladder is decompressed. Right lower quadrant ileal conduit is seen. Reproductive organs: Uterus is enlarged with numerous subserosal fibroids. IUD in place. Gastrointestinal tract: Stom ach is mildly distended and is unremarkable. Duodenum, small bowel loops are unremarkable. Small to moderate stool burden seen in the colon. Left lower quadrant diverting ost dolly of the sigmoid colon see n with also mucous fistula of the rectosigmoid stump. There is small parastomal herniation of the intra-abdominal fat. Appendix: Seen and is normal. Peritoneum and retroperitone um: No lymphadenopathy, ascites or free air. No other fluid collection. Lymph nodes: Normal. Vasculature: Normal. Bones: Spina bifida with dys plastic acetabulae and resumption of right femoral head seen again. No new bony destruction. Right sacral decubitus ulceration seen without bony destruction fluid collections. Soft tissues: Diastasis of recti muscles of the anterior abdominal wall seen. IMPRESSION: 1. Interval 1.5 cm obstructi ng calculus in the right proximal ureter with moderate right hydroureteronephrosis with significant urothelial thickening and surrounding fat stranding and also mild enlargem ent of the atrophic scarred right kidney with perinephric fat stranding. This is concerning for acute pyelonephritis and pyonephrosis. 2. Additional nonobstructing calculus also seen in the right renal collecting system. 3. Moderate to large left pleural effusion has s lightly increased in size. 4. Rest of the findings are not significantly ch anged. Renal Stone CT EXAM: CT ABDOMEN AND PELVIS WITHOUT CONTRAST [facility] [place] DATE: 09/29/2019 9:37 [employer]PARER INDICATION: - N20.0 Calculus of kidney ADDITIONAL INFORMATION: None. COMPARISON: CT August 25, 2019. TECHNIQUE: Volumetric CT acq uisition of the abdomen and pelvis without intravenous contrast. Axial, coronal and sagittal reconstructions. IV contrast: None. Enteric contrast: None. DLP: 168.81 mGy-cm FINDINGS: Lines, tubes and hardware: T ubing is seen in the left pleural fluid, incompletely visualized.. Lower thorax: Large left ple ural effusion is noted. No right pleural effusion is present.. Liver: Normal. Biliary tree: No intra- or extrahepatic biliary ductal dilation. Gallbladder: Normal. No CT evidence of gallstone s. Pancreas: Normal. Spleen: Previously seen hypo density in the spleen is not visualized on this noncontrast exam. Adrenals: Normal. Kidneys and ureters: Previou sly seen left-sided hydronephrosis and left-sided renal calculus is no longer visualized. Previously seen left renal hypodensity is not seen without contrast. Multiple renal calculi are seen within the right kidney including the renal pelvis, not significantly changed from prior. The largest of these is a 9 mm calculus within the renal pelvis. Cortical scarring noted in the right kidney which is mildly atrophic. Bladder: The patient is stat us post ileal conduit although it is not well visualized on this noncontrast exam.. Reproductive organs: IUD is noted. Lobulated appearance of the uterus is likely due to uterine fibroids which was better visualized on prior examination with contrast. Gastrointestinal tract: Norm al caliber. Left lower quadrant diverting colostomy noted Appendix: Normal. Peritoneum, mesentery and re troperitoneum: No free air, ascites or loculated fluid. Lymph nodes: Normal. Vasculature: Normal. Bones: No acute abnormality. Osseous sequela spina bifida including spinal dysraphism, scoliosis and dysplasia of the right hip is unchanged. Soft tissues: Sacral decubit us ulcer again noted. Urostomy in the right lower quadrant colostomy in the left lower quadrant. Again noted is eventration of the peritoneum with diastases of the thinned rectus muscle. IMPRESSION: 1. Interval resolution of l eft sided hydronephrosis and the previously seen left ureteral calculus. 2. Multiple right sided ure teral calculi, unchanged without hydronephrosis/obstruction. 3. Right lower quadrant urostomy and left lower quadrant colostomy. 4. Unchanged appearance of sacral decubitus ulc er. 5. Multi fibroid uterus with IUD. 6. Large left pleural effusion with partially i pavithra pleural catheter. 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 IMPRESSION: Redemonstration of rightward curvature of the thoracic spine. Stable cardiomediastinal silhouette. Again seen valve projecting over the lower SVC and upper right atrium, stable at least since 2009. Left -sided ventriculoperitoneal shunt in place. Large left pleural effusion layers laterally associated capping of the left apex, increased from prior. Left retrocardiac opacities likely left pleural effusi on with or without consolida tion or atelectasis. Right lower lobe platelike atelectasis. CONCLUSION: 1. Large left pleural effus ion has increased from prior. Other findings as described above. PICC insert with or without Radiation Dose 08/25/2019 [place] [facility] Fluoroscopy time (minutes): 7.3 Center Reference air kerma (mGy): 76.8 PROCEDURE: Genitourinary catheter placement Procedural Personnel Attending physician(s): Desiree Mcfarland MD Fellow physician(s): None Resident physician(s): None Advanced practice provider(s): None Pre-procedure diagnosis: Nephrolithiasis, left h ydronephrosis Post-procedure diagnosis: Same IMPRESSION: 1. Fluoroscopic-guided place ment of retrograde left nephroureteral stent via the urostomy. 2. Midline venous catheter placement. Plan: Follow up with urology. PROCEDURE SUMMARY -Fluoroscopic-guided placeme nt of left retrograde nephroureteral stent via urostomy -Ultrasound and fluoroscopic-guided midline veno us catheter placement -Central venography PROCEDURE DETAILS: Using fluoroscopic guidance, a catheter and wire were passed through the ileal conduit and into the left renal collecting system. Contrast injected and nephrostogram performed. This demonstrated a parti ally occlusive ureteropelvic junction stone. The catheter was then exchanged for a 10.2 Singaporean nephroureteral stent. The distal pigtail was locked within the renal pelvis and the hub of the stent left j ust outside the urostomy. Co ntrast injection confirmed satisfactory positioning. Using ultrasound guidance, t he right brachial vein was percutaneously accessed with a micropuncture needle. Some resistance was encountered while passing an 018 wire centrally. Therefore, contrast was i njected and central venogram performed. This revealed mild narrowing of the brachiocephalic vein. There was no DVT. An SVC filter was noted. Due to the presence of the SVC filter, the decision was made to place a midline catheter. A 5 Singaporean single lumen catheter was then placed with the tip in the right subclavian vein. The line aspirated and flushed easily. It was secured to the skin with suture and a sterile dressing applied. The patient tolerated the procedures well withou t complication. Attestation Signer name: Desiree Mcfarland MD I attest that I was present for the entire procedure. I reviewed the stored images and agree with the report as written. Nephrostomy drain perc Radiation Dose 08/25/2019 [facility] VR Fluoroscopy time (minutes): 7.3 Center Reference air kerma (mGy): 76.8 PROCEDURE: Genitourinary catheter placement Procedural Personnel Attending physician(s): Desiree Mcfarland MD Fellow physician(s): None Resident physician(s): None Advanced practice provider(s): None Pre-procedure diagnosis: Nephrolithiasis, left h ydronephrosis Post-procedure diagnosis: Same IMPRESSION: 1. Fluoroscopic-guided place ment of retrograde left nephroureteral stent via the urostomy. 2. Midline venous catheter placement. Plan: Follow up with urology. PROCEDURE SUMMARY -Fluoroscopic-guided placeme nt of left retrograde nephroureteral stent via urostomy -Ultrasound and fluoroscopic-guided midline veno us catheter placement -Central venography PROCEDURE DETAILS: Using fluoroscopic guidance, a catheter and wire were passed through the ileal conduit and into the left renal collecting system. Contrast injected and nephrostogram performed. This demonstrated a parti ally occlusive ureteropelvic junction stone. The catheter was then exchanged for a 10.2 Singaporean nephroureteral stent. The distal pigtail was locked within the renal pelvis and the hub of the stent left j ust outside the urostomy. Co ntrast injection confirmed satisfactory positioning. Using ultrasound guidance, t he right brachial vein was percutaneously accessed with a micropuncture needle. Some resistance was encountered while passing an 018 wire centrally. Therefore, contrast was i njected and central venogram performed. This revealed mild narrowing of the brachiocephalic vein. There was no DVT. An SVC filter was noted. Due to the presence of the SVC filter, the decision was made to place a midline catheter. A 5 Singaporean single lumen catheter was then placed with the tip in the right subclavian vein. The line aspirated and flushed easily. It was secured to the skin with suture and a sterile dressing applied. The patient tolerated the procedures well withou t complication. Attestation Signer name: Desiree Mcfarland MD I attest that I was present for the entire procedure. I reviewed the stored images and agree with the report as written. Vascular/Interventional Radiation Dose 08/25/2019 [facility] Medical Radiology Consult Fluoroscopy time (minutes): 7.3 Center Reference air kerma (mGy): 76.8 PROCEDURE: Genitourinary catheter placement Procedural Personnel Attending physician(s): Desiree Mcfarland MD Fellow physician(s): None Resident physician(s): None Advanced practice provider(s): None Pre-procedure diagnosis: Nephrolithiasis, left h ydronephrosis Post-procedure diagnosis: Same IMPRESSION: 1. Fluoroscopic-guided place ment of retrograde left nephroureteral stent via the urostomy. 2. Midline venous catheter placement. Plan: Follow up with urology. PROCEDURE SUMMARY -Fluoroscopic-guided placeme nt of left retrograde nephroureteral stent via urostomy -Ultrasound and fluoroscopic-guided midline veno us catheter placement -Central venography PROCEDURE DETAILS: Using fluoroscopic guidance, a catheter and wire were passed through the ileal conduit and into the left renal collecting system. Contrast injected and nephrostogram performed. This demonstrated a parti ally occlusive ureteropelvic junction stone. The catheter was then exchanged for a 10.2 Singaporean nephroureteral stent. The distal pigtail was locked within the renal pelvis and the hub of the stent left j ust outside the urostomy. Co ntrast injection confirmed satisfactory positioning. Using ultrasound guidance, t he right brachial vein was percutaneously accessed with a micropuncture needle. Some resistance was encountered while passing an 018 wire centrally. Therefore, contrast was i njected and central venogram performed. This revealed mild narrowing of the brachiocephalic vein. There was no DVT. An SVC filter was noted. Due to the presence of the SVC filter, the decision was made to place a midline catheter. A 5 Singaporean single lumen catheter was then placed with the tip in the right subclavian vein. The line aspirated and flushed easily. It was secured to the skin with suture and a sterile dressing applied. The patient tolerated the procedures well withou t complication. Attestation Signer name: Desiree Mcfarland MD I attest that I was present for the entire procedure. I reviewed the stored images and agree with the report as written. Abdomen/Pelvis w IV contrast EXAM: CT ABDOMEN AND PELVIS WIT H CONTRAST 08/25/2019 [facility] CT DATE: 08/25/2019 at 0347 hours C enter INDICATION: - abd pain w kidney stone ADDITIONAL INFORMATION: None. COMPARISON: * CT abdomen pelvis of 01/30/2019 at 1700 hours * CT abdomen pelvis of 11/06/2017 at 1142 hours TECHNIQUE: Volumetric CT of the abdomen and pelvis is acquired following the intravenous administration of contrast. Axial, coronal and sagittal images are provided. IV contrast: 100 cc Omnipaque 350 Enteric contrast: None. DLP (mGy-cm): 925 FINDINGS: Lines, tubes and hardware: * Unchanged left-sided ventricular pleural cath eter. * An intrauterine device in place. Lower thorax:Moderate left p leural effusion is noted with ventricular pleural catheter within it. Liver: Normal. Biliary tree: No intra- or extrahepatic biliary ductal dilation. Gallbladder: Normal. Pancreas: Normal. Spleen: Unchanged anterior splenic hypodensity ( 12/21) Adrenals: Normal. Kidneys and ureters: * Status post left lower qu adrant diverting colostomy and right lower quadrant ileal conduit. There is an obstructing 8 mm left ureteropelvic junction stone with mild left hydronephrosis and multiple n onobstructing right renal stones measuring up to 11 mm. * Cortical scarring noted in the atrophic right kidney. * Tiny hypodensity in the l eft interpolar region is unchanged from prior study and likely represent cyst. Bladder: Normal. Reproductive organs: Multifibroid uterus with IU D. . Gastrointestinal tract: Stomach: Normal. Small bowel: Postsurgical changes noted in the s mall bowel. Colon: Left lower quadrant colostomy noted. No e vidence for obstruction. Peritoneum, mesentery and re troperitoneum: No free air, ascites or loculated fluid. Lymph nodes: Normal. Vasculature: Normal. 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 Notably, there are are bilateral small hip effusions and a sacral decubitus ulcer. Soft tissues: * Urostomy noted in the rig ht lower quadrant and colostomy in the left lower quadrant. * Soft tissue thickening in the posterior aspect of lower pelvis likely represents decubitus ulcer/postsurgical change. * Eventration of the peritoneum with diastasis of the thinned rectus muscle. IMPRESSION: 1. Status post left lower q uadrant diverting colostomy and right lower quadrant ileal conduit. There is an obstructing 8 mm left ureteropelvic junction stone with mild left hydronephrosis and multiple nonobstructing right renal stones measuring up t o 11 mm. 2. 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 Notably, there are are bilateral small hip effusions and a sacral decubitus ulcer. 3. Recti divarication. 4. Multifibroid uterus with IUD. 5. Large left pleural effusion with a p artially imaged thoracostomy catheter. Renal Stone CT EXAM: CT ABDOMEN AND PELVIS WITHOUT CONTRAST [facility] DATE: 01/22/2019 2:48 CDT Center INDICATION: Abdominal pain, acute - renal stone protocol COMPARISON: Abdomen pelvis CT without IV contras t 12/13/2018 TECHNIQUE: Volumetric CT of the abdomen and pelvis is acquired without contrast. Axial, coronal and sagittal images are provided. IV contrast: None. Enteric contrast: None. DLP: 614 mGy-cm. UT SECTION: ER FINDINGS: Lines, tubes and hardware: P artially visualized left HR GENERALIST shunt seen within the left chest and pleural space. Lower thorax: A moderate lef t-sided pleural effusion. Scattered atelectatic changes. Abdomen: Limited evaluation of the parenchymal organs and vascular structures due to lack of intravenous contrast. Otherwise unremarkable noncontrast appearance of the liver, spleen, pancreas, and left adrenal gland. Layering gall stones are seen. Right adrenal gland is not well seen. Nonobstructive bowel. Modera te amount of colonic stool is seen. Left lower quadrant colostomy. The appendix is normal. Normal caliber aorta. Kidneys and ureters: Right kidney and ureter: Mul tiple punctate stones are seen within the right kidney. A nephrostomy tube is in place, which is seen exiting through the ileal conduit. It appears the distal loop of the nep hrostomy tube has displaced from the renal pelvis into the proximal ureter. There is mild to moderate hydronephrosis. Left kidney and ureter: Punc parra calculus in the left renal lower pole. No hydronephrosis. Absent urinary bladder with right lower quadrant ileal conduit. An intrauterine device is se en within the uterus. Slightly enlarged uterus probably related to uterine fibroids. The left ovary appears bulky. No intraperitoneal free fluid or free air. 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 Chronic deformity of the distal sacrum and the pelvic ring. Spina bifida. Severe scoliosis of the thoracolumbar spine. Soft tissues: Divarication o f the recti noted. Thickening in the perineum probably related to chronic decubitus ulcer. IMPRESSION: 1. Mild to moderate hydrone phrosis of the right kidney with gas seen in the right renal collecting system, and what appears to be distal migration of the proximal loop of the nephrostomy tube from the renal pelvis into the proximal ureter. 2. Punctate calculi seen wi thin the right kidney. Tiny nonobstructing calculus in the left renal lower pole. 3. Cholelithiasis. 4. Moderate left-sided pleural effusion. 5. Chronic osseous changes, with sacral decubit us ulcer. 6. Bulky uterus probably related to fibroids. Chest 1view DX EXAM: XR CHEST 1 VIEW 01/22/2019 [facility] edical DATE: 01/22/2019 2:47 CDT Center INDICATION: - preop COMPARISON: 12/13/2018 at 1256 hours TECHNIQUE: AP chest. UT SECTION: ER FINDINGS: Lines, tubes and hardware: R edemonstrated left-sided ventriculopleural shunt and filter projecting over [...] effusion. Nephrostomy tube exchange VR PROCEDURE: Genitourinary cathet er exchange 01/06/2019 [facility] Procedural Personnel Center Attending physician(s): Dr Park Fellow physician(s): None Resident physician(s): None Advanced practice provider(s): None Pre-procedure diagnosis: Hydronephrosis Post-procedure diagnosis: Same Indication: Right Chronic hy dronephrosis with calculus, s/p ileal-conduit. Request is for Neph-U cath placement Additional clinical history: None Complications: No immediate complications. IMPRESSION: Successful conversion of rig ht nephrostomy to nephro-ureteral cath placement (10F x 22 cm) Plan: Routine exchange every 3 months. PROCEDURE SUMMARY - Target organ: Unilateral [place] kidney - Antegrade nephrostogram(s) via the existing ac cess - Conversion to nephro-ureteral catheter - Additional procedure(s): None PROCEDURE DETAILS: Pre-procedure Consent: Informed consent fo r the procedure including risks, benefits and alternatives was obtained and time-out was performed prior to the procedure. Preparation: The site was pr epared and draped using maximal sterile barrier technique including cutaneous antisepsis. Anesthesia/sedation Level of anesthesia/sedation: Moderate sedation (conscious sedation) Anesthesia/sedation administ ered by: Independent trained observer under attending supervision with continuous monitoring of the patient's level of consciousness and physiologic status Total intra-service sedation time (minutes): 30 Right genitourinary catheter exchange Local anesthesia was adminis tered. Initial nephrostogram was performed. A wire was placed through the existing tube and it was removed. The new tube was advanced over the wire and position was confirmed with contrast injection. Pre-existing genitourinary catheter: [id number] nep hrostomy Genitourinary catheter(s) placed: 10F x 22 cm Findings: Right ileal condui t with contrast hold up distally. Successful conversion to nephro-ureteral External catheter securement: Non-absorbable sut ure Additional genitourinary system intervention Genitourinary intervention: None [...] DX EXAM: XR ABDOMEN 1 VIEW 12/18/2018 [facility] DATE: 12/18/2018 16:03 CDT Center INDICATION: - last BM 5 days ago ADDITIONAL INFORMATION: None. COMPARISON: CT dated 12/13/2018 TECHNIQUE: Supine AP view of the abdomen FINDINGS: Left pleural effusion with a HR GENERALIST shunt catheter seen overlying the left lower chest. The pigtail catheter is seen overlying the right mid abdomen. This likely corresponds to the percutaneous nephrostomy catheter. No bowel dilation. Bones are unchanged. IMPRESSION: 1. No bowel dilation. Ext Upper Venous Doppler EXAM: US LEFT UPPER EXTREMITY VENOU S DOPPLER 12/14/2018 [facility] [place] DATE: 12/14/2018 11:31 CDT Center INDICATION: - hx of LIJ DVT ADDITIONAL INFORMATION: None. COMPARISON: Left upper extremity venous Doppler dated 03/03/2018. TECHNIQUE: Multiplanar jim kimberly, color Doppler and spectral Doppler ultrasound of the left upper extremity veins. FINDINGS: Left Upper Extremity Veins: Internal Jugular: Nonocclusive peripheral thromb us Subclavian: Patent. Axillary: Patent. Brachial: Patent. Basilic: Patent. Cephalic: Not visualized. Other: None. 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 Nephrostomy drain perc PROCEDURE: Genitourinary catheter placeme nt 12/14/2018 [facility] Procedural Personnel Center Attending physician(s): Hardik Fellow physician(s): Marine Resident physician(s): None Advanced practice provider(s): None Pre-procedure diagnosis: Hydronephrosis secondar y to left nephrolithiasis Post-procedure diagnosis: Same Indication: Urinary obstruction Catheter(s) placed because t he previous catheter(s) became dislodged within 30 days of placement (QCDR): No Additional clinical history: None Complications: No immediate complications. IMPRESSION: Right nephrostomy tube placement. Plan: Nephrostomy tube to gravity drainage bag. Flush nephrostomy tube with 10 mL sterile saline every 8 hours while hospitalized. Definitive treatment of nephrolithiasis per urol ogy. PROCEDURE SUMMARY - Target organ: Unilateral [place] kidney - Image-guided placement of genitourinary cathet er(s) - Additional procedure(s): None PROCEDURE DETAILS: Pre-procedure Consent: Informed consent fo r the procedure including risks, benefits and alternatives was obtained and time-out was performed prior to the procedure. Preparation: The site was pr epared and draped using maximal sterile barrier technique including cutaneous antisepsis. Anesthesia/sedation Level of anesthesia/sedation: Moderate sedation (conscious sedation) Anesthesia/sedation administ ered by: Independent trained observer under attending supervision with continuous monitoring of the patient's level of consciousness and physiologic status Total intra-service sedation time (minutes): 30 Right genitourinary catheter placement Local anesthesia was adminis tered. A needle was advanced into the renal collecting system under ultrasound and fluoroscopy guidance. A wire was advanced, the tract was serially dilated and a nephrostomy tube was placed . Contrast injection was performed. Genitourinary catheter placed: 12 Singaporean Findings: Several filling de fects within the renal calyces, renal pelvis, and proximal ureter are consistent with known kidney stones. External catheter securement: Non-absorbable sut ure Additional genitourinary system intervention Genitourinary intervention: None Location of intervention: Not applicable Device used: Not applicable Description of intervention: Not applicable Post-intervention findings: Not applicable Contrast Contrast agent: Visipaque 320 Contrast volume (mL): 30 Radiation Dose Fluoroscopy time (minutes): 10 Reference air kerma (mGy): 211.9 Additional Details Additional description of procedure: None Equipment details: None Specimens removed: None. A sample was not sent f or analysis. Estimated blood loss (mL): Less than 10 Standardized report: [email or web address] Attestation Signer name: Nito Dye MD I attest that I was present for the entire procedure. I reviewed the stored images and agree with the report as written. Pelvis w/wo contrast MRI Clinical indication: R58- excessive bleeding 12/06/2018 [facility] [place] Comparison: CT abdomen pelvis 04/12/2018 TECHNIQUE: Multiplanar and m ultisequence magnetic resonance imaging of the pelvis were obtained with and without IV contrast. IV contrast: 13 mL Dotarem FINDINGS: The inferior most portion of the pelvis including portions of the vagina and anal canal were not included on the scan field of view. Reproductive organs: The tribe lane is anteverted. There are multiple T2 hypointense uterine fibroids. A 5.1 x 4.2 x 5.3 cm intramural fibroid is present on the posterior uterine fundus. A 4.3 x 3.7 x 3.8 c m intramural fibroid is pres ent on the anterior uterine fundus. A 3.8 x 3.2 x 2.9 cm fibroid appears separate, but adjacent to the uterus in the region of the left broad ligament. A few additional small er intramural uterine fibroi ds are present. There is also an ill-defined [...] cervix. Subcentimeter follicles are present in the bilat eral ovaries. Peritoneum/retroperitoneum: A small amount of free fluid is present in the pelvis, which may be physiologic. Gastrointestinal: A left low er quadrant colostomy is present. Visualized portions of small bowel are normal in caliber. Urinary bladder: The urinary bladder is contract ed. Lymph nodes: No pelvic lymphadenopathy. Pelvic vessels: The pelvic vessels enhance chyna lly. Bones: There are redemonstra alda changes of spina bifida. Rotatory scoliosis is present in the spine. Dysplasia of the right hip is seen with chronic dislocation of the right femur, remodeling of the right femoral head and shallow acetabulum. Soft tissues: A sacral decub itus ulcer is present. Enhancement is seen around the right greater trochanteric bursa suggestive of bursitis. There is diastases of the rectus abdominis muscles. Other: A partially visualize d right kidney demonstrates multiple low signal filling defects in the renal pelvis, suggestive of nephrolithiasis. The largest measures 0.9 cm. IMPRESSION: 1. Multiple uterine fibroid s as well as a 3.8 cm fibroid adjacent to the uterus, likely a broad ligament fibroid. 2. A 4.1 cm uterine adenomyoma. 3. Multiple right renal calculi. 4. Sacral decubitus ulcer. 5. No significant change in findings of spina bifida with right hip dysplasia. 6. Findings suggestive of right greater trochan teric bursitis. 7. Left lower quadrant colostomy. SL: [id number] [facility] Renal Protocol w/wo IV 06/02/[address] Study: [facility] Renal Protocol w/wo IV contrast CT Clinical Indication: - Pyelonephritis Comparison: CT abdomen and pelvis from 8 TECHNIQUE: Multiple axial CT images of the abdomen/pelvis were acquired before and after the administration of intravenous contrast. Multiplanar reformatted images were performed. Renal mass protocol was utilized. DLP= 1273.8 mGy-cm FINDINGS: Limited views of t he lung bases show a moderate-sized left pleural [...] kidney are agai n seen with largest measurin g 1.7 cm in the inferior pole of [...] adenopathy is seen. Severe diastasis of the ante rior abdominal wall fascia is again seen. Sacral decubitus ulcer with underlying granulation tissue formation is seen. Multilevel congenital nonuni on of the posterior elements in the lumbosacral spine are seen, compatible with history of spina bifida. Severe right hip dysplasia is noted. IMPRESSION: 1. Interval removal of left-sided percutaneous n ephrostomy catheter. 2. No renal collecting system obstruction. 3. Stable nonobstructive right nephrolithiasis. 4. Moderate-sized left pleural effusion. SL: [id number] Chest 1view DX EXAM: XR CHEST 1 VIEW 04/15/2018 [facility] edical DATE: 04/15/2018 10:[address] INDICATION: - Post thoracentesis COMPARISON: 04/13/2018 TECHNIQUE: AP chest IMPRESSION: 1. Small left pleural effus ion with interval decrease compared to previous study, status post thoracocentesis with better inflation of the left lung. 2. Patchy airspace opacitie s in the left lung suggestive of reexpansion pulmonary edema. 3. Cardiomediastinal silhou ette is enlarged, unchanged. IVC filter again seen projecting over the right atrium and distal SVC, stable compared to previous study. 4. Left-sided HR GENERALIST shunt again seen. 5. Osseous structures are stable. Chest 1view DX EXAM: XR CHEST 1 VIEW 04/13/2018 [facility] edical DATE: 04/13/2018 3:00 AM CDT Cent er INDICATION: - intubated, pleural effusions. FINDINGS: Comparison is made to April 11. A large left pleural effusio n obscures the left lower lobe, with fluid layering posteriorly and capping the left apex. There is a left retrocardiac opacity which may be due to a layering left pleural ef fusion and/or a left lower l obe airspace opacity such as pneumonia or atelectasis. Left upper lobe and right lower lobe platelike atelectasis. There is rightward curvature of the thoracic spine. Cardiomediastinal silhouette is unchanged. Again seen is the filter projecting over the lower SVC and upper right atrium; this has been seen dating ba ck to at least 2009. There is a left-sided ventr iculopleural shunt in place. Rightward curvature of the thoracic spine. IMPRESSION: No change. Nephrostomy tube exchange VR EXAM: VIR left-sided Perc utaneous Nephrostomy Tube Exchanges 04/12/2018 [facility] DATE: 04/12/2018 7:14 PM CDT Cent er PROCEDURE(S) PERFORMED: INDICATION: 37 years old Female with urinary obs truction. FACULTY: Pedro Kennedy MD RESIDENT/FELLOW/ELECTROPLATING WORKER: Doron Del Rio ANESTHESIA/SEDATION: Moderate sedation PHYSICIAN SUPERVISED ANESTHESIA TIME: 30 min SPECIMEN: None DRAINS: 10-[place] pigtail catheter. ESTIMATED BLOOD LOSS: Less than 10 cc COMPLICATIONS: None immediate FLUOROSCOPY TIME: 3.5 min RADIATION DOSE: 23.0 mGy PROCEDURE: After the risks, benefits, a nd alternatives of the procedure were explained to the patient, verbal and written consent was obtained and a copy was placed on the chart. Patient was brought to the angiogr aphy suite and a time-out wa s performed. IV Versed and Fentanyl were titrated for moderate sedation by a trained observer. The patient was positioned p nydia. The nephrostomy site was prepped and draped in the usual sterile fashion. : Patient was already on appropriate antibiotics IV.Production Department Supervisor radiographs demonstrated the nephro stomy tubes in the region of the renal pelvis. Local anesthesia was achieved using 1% Lidocaine. A glide wire was advanced th rough the left nephrostomy tube into the collecting system. The tube was then severed to release the distal loop and removed over a wire. 10 [place]an nephrostomy tube was inser alda over wire into the renal pelvis using direct fluoroscopic guidance. The loop was secured by gently targeting on this during and locking. Contrast was injected through the nephrostomy tube to confir m position of the tube within the renal pelvis. The nephrostomy tube was sec ured to the skin with 2-0 proline suture. Sterile dressing was placed at the site. The patient tolerated the procedure well without immediate complications. FINDINGS: See procedure section. IMPRESSION: 1. Successful exchange of left-sided nephrostom y. Plan: Routine exchange of nephrostomy tubes betw een [address] Pedro Kennedy MD was present for the procedure . Abdomen/Pelvis wo IV EXAM: CT ABDOMEN AND PELVIS WITHOUT CONTRAS T 04/11/2018 [facility] contrast CT DATE: 04/11/2018 11:[address] INDICATION: - PCN in place, history of nephroli thiasis ADDITIONAL INFORMATION: 29-y ear-old woman status post left PCN placed on 02/2018 now with lower back pain, fevers. COMPARISON: None. TECHNIQUE: Volumetric CT of the abdomen and pelvis is acquired without intravenous contrast. Axial, coronal and sagittal images are provided. IV contrast: None. Enteric contrast: None. DLP: 757 mGy-cm FINDINGS: Lines, tubes and hardware: * Nasogastric tube in place. * Left renal nephrostomy tube. * HR GENERALIST shunt catheter in the left hemithorax. Lower thorax: Persistent sma ll to moderate left pleural effusion with associated atelectasis/consolidation. Right basilar atelectasis. Liver: No hypodense lesions. Fatty infiltration of the liver. Biliary tree: No intra- or extrahepatic biliary ductal dilation. Gallbladder: Layering hyperd ensity may represent tiny stones/sludge. No wall thickening. Pancreas: No ductal dilatation. Spleen: No splenomegaly. Adrenals: No nodules. Kidneys and ureters: * Multiple nonobstructive r ight renal calculi in both poles and the ureteropelvic junction. * Interval resolution of le ft-sided hydronephrosis with nephrostomy tube in place. * Previous left renal stones not seen. * No perinephric fluid collections. Bladder: Absent with right lower quadrant ileal conduit. Reproductive organs: Prostat e and seminal vesicles are unremarkable. Pessary visualized in the vagina. Gastrointestinal tract: Stomach: Normal. Small bowel: Normal. Colon: Left lower quadrant loop colostomy. Appendix: Normal. Peritoneum, mesentery and re troperitoneum: No free air, ascites or loculated fluid. Lymph nodes: Normal. Vasculature: Aorta and branches: Normal. IVC and veins: Normal. Portal vasculature: Normal. Bones: * Stable right hip dysplasi a with chronic superolateral dislocation of the right femur and shallow acetabulum. * Stable spina bifida and severe rotodextroscol iosis. Soft tissues: * Eventration of the anterior abdominal wall. * Sacral decubitus ulcer. IMPRESSION: 1. Interval resolution of l eft renal hydronephrosis with nephrostomy tube in place. No perinephric fluid collections. Previous left renal stones not seen. 2. Multiple nonobstructive right renal calculi, not significantly changed. 3. Left lower quadrant colostomy. No obstructio n. 4. Absent bladder with right lower quadrant ile al conduit. 5. Stable right hip dysplas ia and spina bifida with severe rotodextroscoliosis. 6. Anterior abdominal wall axially with bowel herniation, unchanged from prior. 7. Sacral decubitus ulcer. 8. Likely tiny gallstones/sludge. Chest 1view DX EXAM: XR CHEST 1 VIEW 04/11/2018 [facility] edical DATE: 04/11/2018 11:[address] INDICATION: - shortness of breath. FINDINGS: Comparison is made to 03/01/2018. A large left pleural effusio n obscures the left lower lobe and extends laterally with fluid layering posteriorly. The left lower lobe is completely obscured and there is a left perihilar opacity. This c ould be due to atelectasis w ith or without superimposed aspiration or pneumonia. The [...] pleural effusion. 2. The left lung is diminish ed in volume with left perihilar and left lower lobe opacities which could be due to atelectasis with or without superimposed consolidation. 3. New pigtail catheter over the left lower chest with part of it looping over the subcutaneous soft tissue. It is of unclear location. Please correlate. Ext Upper Venous Doppler EXAM: US LEFT UPPER EXTREMITY VENOU S DOPPLER 03/03/2018 [facility] [place] DATE: 03/03/2018 1002 hours Center INDICATION: Evaluate for DVT COMPARISON: None. TECHNIQUE: Multiplanar jim kimberly, color Doppler and spectral Doppler ultrasound of [...] drain perc EXAM: VIR LEFT NEPHROSTOMY PLACEMENT 10/2017 [facility] DATE: 03/01/2018 3:23 PM CDT Jethro bower PROCEDURE(S) PERFORMED: 1. Ultrasound-guided access to left kidney 2. Fluoroscopic guided placement off the nephro stomy tube INDICATION: 37 years old Fem moise with pelviureteric obstruction and hydronephrosis presents for nephrostomy tube placement. FACULTY: Timothy Gomez MD RESIDENT/FELLOW/ELECTROPLATING WORKER: None SUPERVISION: Not applicable ANESTHESIA/SEDATION: Moderate sedation PHYSICIAN SUPERVISED ANESTHESIA TIME: 30 min SPECIMEN: None DRAINS: None ESTIMATED BLOOD LOSS: Less than 10 cc COMPLICATIONS: None immediate FLUOROSCOPY TIME: 1.9 min RADIATION DOSE: 19.4 mGy PROCEDURE: After the risks, benefits, a nd alternatives of the procedure were explained to [...] Versed and Fentanyl were titrated for moderate sedat ion by a trained observer.1% Lidocaine was used to anesthetize the subcutaneous tissues overlying the kidney. The calyceal system was acce ssed under ultrasound guidance using an Shiva set and the Seldinger technique. After the system was allowed to decompress, a small volume of contrast was gently infused to con firm placement. Shiva set she ath was exchanged for a Bentson wire and an 10 Fr nephrostomy tube was inserted over the wire under fluoroscopic guidance. Contrast was again gently infused to confirm placem ent. Nephrostomy tube wa s attached to bag drainage and 2-0 Prolene sutures were used to secure the tube to the skin. Sterile dressing was applied. The patient was transferred to the recovery room in stable condition. FINDINGS: See procedure section. IMPRESSION: 1. Left nephrostomy placed without complication . Plan: Routine exchange of nephrostomy tubes betw een [address] TIMOTHY GOMEZ was present for the procedure. Torso-Outside Consult CT EXAM: CT ABDOMEN AND PELVIS WITHOU T CONTRAST 03/01/2018 [facility] DATE: 03/01/2018 2:03 AM CDT Cente r INDICATION: Torso-Outside Consult CT COMPARISON: 11/06/2017 TECHNIQUE: Volumetric CT acq uisition of the abdomen and pelvis without the [...] perinephric fat stranding 2. Left lower pole nonobstr uctive renal calculus and multiple nonobstructive renal calculi in the right kidney are present. 3. The urinary bladder is absent with a right l ower quadrant ileal conduit. 4. Left ventriculoperitonea l shunt catheter terminates in the left hemithorax resulting in a moderate left pleural effusion. 5. Left lower quadrant loop colostomy is presen t. 6. Marked diastasis of the rectus abdominis mus alex and bowel herniation. 7. Spina bifida and severe rotodextroscoliosis. 8. 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 9. Sacral decubitus ulcers. Abdomen/Pelvis w IV contrast EXAM: CT ABDOMEN AND PELVIS WIT H CONTRAST 11/06/2017 [facility] CT DATE: 11/06/2017 9:00 AM [facility] er INDICATION: - ? Intermittent SBO, h/o resection and ostomy ADDITIONAL INFORMATION: None. COMPARISON: CT abdomen 11/14/2016. TECHNIQUE: Volumetric CT acq uisition of the abdomen and pelvis after the [...] dilation. Gallbladder: Normal. No CT evidence of gallstone s. Pancreas: Normal. Spleen: The spleen is normal in size. A 1.2 cm hypodensity in the anterior aspect (/) is unchanged from 11/13/2016 suggestive of benign etiology such as hemangioma. Adrenals: Normal. Kidneys and ureters: Cortica l scarring noted in the atrophic right kidney. Tiny hypodensity in the left interpolar region is unchanged from prior study and likely represent cyst. Bladder: Normal. Reproductive organs: The tribe lane shows hypodense masses in the anterior and [...] Gastrointestinal tract: Stomach: Normal. Small bowel: Postsurgical ch anges noted in the small bowel. Focal segment of small bowel distal to the anastomosis (likely surgical clips series 7 image 12) is dilated and has fluid level but there is n o obstruction and this appearance is unchanged f rom November 14, 2016. Colon: Left lower quadrant colostomy noted. No e vidence for obstruction. Peritoneum, mesentery and re troperitoneum: No free air, ascites or loculated fluid. [...] muscle. IMPRESSION: 1. No evidence of bowel obs truction. Dilated focal segment of small bowel at the anastomotic site is unchanged from November 16, 2016 and is likely due to chronic postsurgical change possibly due to denervation. 2. Interval slight increase in size of uterine fibroids. 3. Moderate left pleural effusion with partiall y seen catheter. 4. Other incidental findings described above ar e stable. Ventriculoperitoneal shunt EXAM: NM Shunt Patency 11/16/2016 [facility] [place] DATE: 11/14/2016 4:02 AM CDT Cent er INDICATION: Headache(s). COMPARISON: CT abdomen pelvis on 11/14/2016 TECHNIQUE: After administration of 0.5 mCi of Tc 99m DTPA in the reservoir of the shunt aseptically, multiple sequential static images were obtained throughout 30 minutes of the head, chest and abdomen. FINDINGS: Tracer is seen at the site o f injection in the left side of the head and within the shunt tubing extending along the left side of the neck and ending within the left hemithorax immediately after tracer administration. There is sub sequent drainage of of the radiotracer material into the left pleural space by 30 minutes. Tracer pooling in the left pleural effusion is noted shortly after injection of the tracer in the cerebral shunt reservoir. No trac er seen in the abdomen. Findings are suggestive of p atent ventriculopleural shunt tubing with no evidence of obstruction or leaks. IMPRESSION: Patent ventriculopleural josé luis nt extending along the left neck to the left pleural space with no evidence of obstruction or leaks. Pooling of tracer in the left pleural effusion i s identified. Abdomen 1 v for Placement DX EXAM: XR ABDOMEN 1 VIEW 11/14/2016 [facility] DATE: 11/14/2016 10:[address] INDICATION: Line Placement ADDITIONAL INFORMATION: None. COMPARISON: None. TECHNIQUE: Limited AP view of the abdomen for tube placement assessment. Number of images: 1 FINDINGS: A nasogastric tube side port overlies the gastric fundus. Moderate left pleural effusion is again seen. IMPRESSION: 1. A nasogastric tube side port overlies the ga stric fundus Abdomen 1 v for Placement DX EXAM: XR ABDOMEN 1 VIEW 11/14/2016 [facility] DATE: 11/14/2016 5:33 AM CDT Cent er INDICATION: Line Placement COMPARISON: Outside CT abdomen pelvis dated 10/28. TECHNIQUE: AP view of the abdomen. FINDINGS: Lines, tubes and hardware: T ip of the nasogastric tube is likely within the proximal stomach. A tip of the ventriculopleural catheter projects over the upper left abdomen, but is noted to be within the posterior pleural space on CT. Lower thorax: Hazy opacity o vidal the right lung base may represent subsegmental atelectasis. There is a left-sided pleural effusion. Bowel: There are abnormally dilated loops of sma ll bowel. Other organs: No abnormal mass or organomegaly s een. Calcifications: No abnormal calcifications found . Bones: There is severe scoliosis of the thoracol umbar spine. IMPRESSION: 1. Tip of the nasogastric tube is likely within the proximal stomach. 2. Abnormally dilated loops of small bowel concerning for small bowel obstruction. Torso-Outside Consult CT EXAM: CT ABDOMEN AND PELVIS WITH CONTRA ST 11/14/2016 [facility] DATE: 11/14/2016 4:02 AM CDT [facility] er INDICATION: - outside study ADDITIONAL INFORMATION: None. COMPARISON: None. TECHNIQUE: CT abdomen pelvis with intravenous and enteric contrast was performed at [facility]. Arterial and venous phase imaging were performed. Second interpretation was requested. FINDINGS: Lines, tubes and hardware: A partially visualized pleural catheter tip is in the left pleural space. Partially visualized catheter in the subcutaneous tissues of the anterior abdominal wall terminates t he peritoneal space of the u pper abdomen, likely representing a ventriculoperitoneal shunt. Lower thorax: A large left p leural effusion is associated with the pleural catheter. Bibasilar subsegmental atelectasis is present. Liver: Normal. Biliary tree: No intra- or extrahepatic biliary ductal dilation. Gallbladder: Normal. No CT evidence of gallstone s. Pancreas: Normal. Spleen: A 1.4 cm hypodensity in the spleen is no nspecific. Adrenals: Normal. Kidneys and ureters: The rig ht kidney is atrophic with multifocal regions of cortical scarring. The left kidney demonstrates a few areas of cortical scarring. A coarse calcification is seen at the martha x of the mid right kidney. N o hydronephrosis is present. The ureters empty into the ileum with a urostomy in the right lower quadrant. Reproductive organs: No CT abnormality. Gastrointestinal tract: The stomach is dilated and distended with positive enteric contrast. Small bowel loops are dilated throughout the abdomen, measuring up to 4 cm in diameter. Transition point is s een in the anterior aspect o f the right lower quadrant (series 501 image [...] burden is visualized. Appendix: Normal. Peritoneum and retroperitone um: No free intraperitoneal air. Small amount of fluid is present in the pelvis. Lymph nodes: Normal. Vasculature: The aorta and IVC are normal in lacey iber. Bones: An open spinal dysrap hic defect is present in L2 through the sacrum, consistent with history of spina bifida. The bilateral acetabula are dysplastic. Complete ostial lysis of the right femoral he ad is redemonstrated with so ft tissue density and ossification in the right hip joint space. Soft tissues: A 1 x 1.7 cm n odular focus of soft tissue is seen in the abdomen adjacent to the ureteral anastomosis with the ileum, which is nonspecific in nature but could be secondary to postsurgical granulation tissue/scarring. Finding is decrease d in size from 2011. Soft tissue thickening poste rior aspect of the lower pelvis likely represents a sacral decubitus ulcer. IMPRESSION: 1. Fluid-filled, dilated sm all bowel with transition point in the right lower quadrant, as described above, consistent with small bowel obstruction. 2. Unchanged large anterior abdominal wall defect with diastases of the muscles and protrusion of the small bowel in this region. 3. Postsurgical change of urostomy and colostom y. 4. Atrophic right kidney with multifocal areas of cortical scarring. 5. Large left pleural effusion with partially v isualized pleural catheter. 6. Partially visualized cat heter terminating in the peritoneum along the anterior [...] Signs Vital Sign Value Date Comments Source Systolic (mm Hg) 139 10/26/2019 [facility] Diastolic (mm Hg) 76 10/26/2019 [facility] Respitory Rate 18 10/26/2019 [facility] Heart Rate 79 10/26/2019 [facility] Temperature Oral (F) 98.3 F 10/26/2019 [facility] Heart Rate 82 10/25/2019 [facility] Temperature Oral (F) 98.7 F 10/25/2019 [facility] Systolic (mm Hg) 131 10/25/2019 [facility] Diastolic (mm Hg) 80 10/25/2019 [facility] Respitory Rate 18 10/25/2019 [facility] Temperature Oral (F) 98.3 F 10/25/2019 [facility] Heart Rate 72 10/25/2019 [facility] Respitory Rate 18 10/25/2019 [facility] Systolic (mm Hg) 137 10/25/2019 [facility] Diastolic (mm Hg) 85 10/25/2019 [facility] Height 152.4 cm 10/21/2019 [facility] Weight 74.091 10/21/2019 [facility] BMI Calculated 31.9 10/21/2019 [facility] Temperature Oral (F) 97.7 F 08/30/2019 [facility] Heart Rate 89 08/30/2019 [facility] Respitory Rate 17 08/30/2019 [facility] Systolic (mm Hg) 142 08/30/2019 [facility] Diastolic (mm Hg) 80 08/30/2019 [facility] Respitory Rate 17 08/29/2019 [facility] Systolic (mm Hg) 139 08/29/2019 [facility] Diastolic (mm Hg) 79 08/29/2019 [facility] Center Respitory Rate 10 08/29/2019 [facility] Systolic (mm Hg) 146 08/29/2019 [facility] Center Diastolic (mm Hg) 81 08/29/2019 [facility] Temperature Oral (F) 98.4 F 08/29/2019 [facility] Heart Rate 78 08/29/2019 [facility] Temperature Oral (F) 98 F 08/29/2019 [facility] Heart Rate 80 08/29/2019 [facility] Height 152.4 cm 08/26/2019 [facility] Weight 81.8 08/26/2019 [facility] BMI Calculated 35.22 08/26/2019 [facility] Weight 81.818 08/25/2019 [facility] Respitory Rate 16 01/31/2019 [facility] Systolic (mm Hg) 123 01/31/2019 [facility] Diastolic (mm Hg) 83 01/31/2019 [facility] Center Systolic (mm Hg) 128 01/31/2019 [facility] Diastolic (mm Hg) 79 01/31/2019 [facility] Temperature Oral (F) 98.4 F 01/31/2019 [facility] Respitory Rate 16 01/31/2019 [facility] Diastolic (mm Hg) 72 01/31/2019 [facility] Temperature Oral (F) 98.4 F 01/31/2019 [facility] Systolic (mm Hg) 108 01/31/2019 [facility] Center Respitory Rate 16 01/31/2019 [facility] Temperature Oral (F) 98.5 F 01/31/2019 [facility] Heart Rate 64 01/31/2019 [facility] Respitory Rate 19 01/23/2019 [facility] Systolic (mm Hg) 115 01/23/2019 [facility] Diastolic (mm Hg) 77 01/23/2019 [facility] Temperature Oral (F) 98.5 F 01/23/2019 [facility] Heart Rate 100 01/23/2019 [facility] Systolic (mm Hg) 111 01/23/2019 [facility] Diastolic (mm Hg) 77 01/23/2019 [facility] Respitory Rate 18 01/23/2019 [facility] Heart Rate 85 01/23/2019 [facility] Temperature Oral (F) 98.0 F 01/23/2019 [facility] Temperature Oral (F) 98.1 F 01/23/2019 [facility] Respitory Rate 18 01/23/2019 [facility] Systolic (mm Hg) 106 01/23/2019 [facility] Diastolic (mm Hg) 72 01/23/2019 [facility] Heart Rate 90 01/23/2019 [facility] Height 152.4 cm 01/22/2019 [facility] BMI Calculated 27.24 01/22/2019 [facility] Weight 63.273 01/22/2019 [facility] Weight 64.545 01/22/2019 [facility] BMI Calculated 27.79 01/22/2019 [facility] Height 152.4 cm 01/22/2019 [facility] Systolic (mm Hg) 114 01/15/2019 [facility] Center Diastolic (mm Hg) 79 01/15/2019 [facility] [place] Heart Rate 87 01/15/2019 [facility] Temperature Oral (F) 98.5 F 01/15/2019 [facility] Respitory Rate 18 01/15/2019 [facility] Systolic (mm Hg) 116 01/15/2019 [facility] Center Diastolic (mm Hg) 81 01/15/2019 [facility] Respitory Rate 18 01/15/2019 [facility] Temperature Oral (F) 98 F 01/15/2019 [facility] Heart Rate 88 01/15/2019 [facility] Temperature Oral (F) 98.5 F 01/15/2019 [facility] Respitory Rate 18 01/15/2019 [facility] Heart Rate 91 01/15/2019 [facility] Systolic (mm Hg) 112 01/15/2019 [facility] Center Diastolic (mm Hg) 79 01/15/2019 [facility] Height 152.4 cm 01/05/2019 [facility] BMI Calculated 27.79 01/05/2019 [facility] Weight 64.545 01/05/2019 [facility] Temperature Oral (F) 98.0 F 12/19/2018 [facility] Systolic (mm Hg) 120 12/19/2018 [facility] Center Diastolic (mm Hg) 82 12/19/2018 [facility] Heart Rate 81 12/19/2018 [facility] [place] Respitory Rate 18 12/19/2018 [facility] Temperature Oral (F) 98.1 F 12/19/2018 [facility] Heart Rate 80 12/19/2018 [facility] Respitory Rate 18 12/19/2018 [facility] Systolic (mm Hg) 135 12/19/2018 [facility] Center Diastolic (mm Hg) 86 12/19/2018 [facility] Center Systolic (mm Hg) 124 12/19/2018 [facility] Diastolic (mm Hg) 87 12/19/2018 [facility] Heart Rate 85 12/19/2018 [facility] Respitory Rate 18 12/19/2018 [facility] Temperature Oral (F) 97.8 F 12/19/2018 [facility] Weight 66.506 12/15/2018 [facility] Height 152.4 cm 12/15/2018 [facility] Height 152.4 cm 12/14/2018 [facility] BMI Calculated 28.63 12/14/2018 [facility] Weight 66.506 12/14/2018 [facility] Weight 64.545 12/14/2018 [facility] BMI Calculated 27.79 12/14/2018 [facility] Height 152.4 cm 12/14/2018 [facility] Heart Rate 99 04/20/2018 [facility] Temperature Oral (F) 98.5 F 04/20/2018 [facility] Respitory Rate 18 04/20/2018 [facility] Systolic (mm Hg) 126 04/20/2018 [facility] Center Diastolic (mm Hg) 83 04/20/2018 [facility] Systolic (mm Hg) 134 04/20/2018 [facility] Center Diastolic (mm Hg) 86 04/20/2018 [facility] Temperature Oral (F) 98.9 F 04/20/2018 [facility] Heart Rate 100 04/20/2018 [facility] Respitory Rate 18 04/20/2018 [facility] Respitory Rate 18 04/20/2018 [facility] Temperature Oral (F) 98.0 F 04/20/2018 [facility] Systolic (mm Hg) 126 04/20/2018 [facility] Center Diastolic (mm Hg) 78 04/20/2018 [facility] Heart Rate 101 04/20/2018 [facility] Height 152.4 cm 04/12/2018 [facility] BMI Calculated 31.9 04/12/2018 [facility] Weight 74.091 04/12/2018 [facility] Temperature Oral (F) 98.9 F 03/04/2018 [facility] Heart Rate 67 03/04/2018 [facility] Systolic (mm Hg) 135 03/04/2018 [facility] Center Diastolic (mm Hg) 91 03/04/2018 [facility] Center Respitory Rate 20 03/04/2018 [facility] Systolic (mm Hg) 150 03/04/2018 [facility] Center Diastolic (mm Hg) 91 03/04/2018 [facility] Temperature Oral (F) 98.4 F 03/04/2018 [facility] Heart Rate 85 03/04/2018 [facility] Respitory Rate 18 03/04/2018 [facility] Center Systolic (mm Hg) 147 03/04/2018 [facility] Center Diastolic (mm Hg) 95 03/04/2018 [facility] Temperature Oral (F) 98.3 F 03/04/2018 [facility] Respitory Rate 20 03/04/2018 [facility] Heart Rate 82 03/04/2018 [facility] BMI Calculated 28.85 03/01/2018 [facility] Weight 67 03/01/2018 [facility] Height 152.4 cm 03/01/2018 [facility] Weight 67.6 03/01/2018 [facility] Systolic (mm Hg) 111 11/06/2017 [facility] Center Diastolic (mm Hg) 75 11/06/2017 [facility] Respitory Rate 18 11/06/2017 [facility] Temperature Oral (F) 98.4 F 11/06/2017 [facility] Respitory Rate 20 11/06/2017 [facility] Center Systolic (mm Hg) 123 11/06/2017 [facility] Center Diastolic (mm Hg) 85 11/06/2017 [facility] Center Systolic (mm Hg) 108 11/06/2017 [facility] Center Diastolic (mm Hg) 66 11/06/2017 [facility] Respitory Rate 18 11/06/2017 [facility] Temperature Oral (F) 98.9 F 11/06/2017 [facility] Weight 67.727 11/06/2017 [facility] Heart Rate 98 11/06/2017 [facility] Temperature Oral (F) 99.4 F 11/06/2017 [facility] Encounters Location Location Encounter Encounter Reason Attending ADM DC Stat us Source Details Type Number For Provider Date Date Visit [facility] [id number] [place] 11/06 11/06 [facility] [place] 5 Ostermayer /2017 [facility] Inpatient [id number] Ezenwa 03/01 03/04 [facility] [place] 3 Onyeky [facility] Inpatient [id number] Burton 04/12 04/20 [facility] [place] 5 [facility] Outpt Diag [id number] Lilliana 06/02 06/03 [id number] Outpatient Services 3 Barba . 1.03616 Imaging 3.3.615. [place] 134 [facility] Outpt Diag [id number] Lilliana 06/06 06/06 [facility] 2 Barba P earland Imaging [facility] PreReg [id number] Madeline Aleman 06/16 07/25 [facility] [place] [facility] Outpt Diag [id number] Jared Aguilar 12/06 12/07 [facility] Out[facility] [place] [facility] Inpatient [id number] English 12/14 12/19 [facility] [place] 7 Donnell [facility] Observation [id number] Jared Aguilar 01/12 01/15 [facility] [place] [facility] Observation [id number] Pin Watson 01/22 01/23 [facility] [place] [facility] Emergency [id number] Burton 01/31 01/31 [facility] [place] 4 [facility] Inpatient [id number] Ritik 08/25 08/30 [facility] [place] 1 Quan [facility] Outpt Diag [id number] Madeline Aleman 09/29 09/30 [facility] Outpatient Services Herm [facility] Imaging [facility] Inpatient [id number] Burton 10/21 10/26 [facility] [place] [address] [facility] Procedures Procedure Code Date Perfomer Comments Source Colostomy [id number] [facility], [id number] .615.134, [facility] [place], [facility] [place] Construction of [id number] [facility] urostomy [facility],2.16.8 [id number] .615.134, [facility] [place], [facility] [place] Operation [id number] [facility], [facility] [place] Reopening of [id number] [facility] abdomen and Medical re-exploration of Center, 2.16.8 intra-abdominal [id number] 83.3 operation site and .615.1 34, surgical arrest of [facility] postoperative [place], bleeding [facility] [place] Assessment and Plan Assessment and Plan Date Source Extracted from:Title: Interventional Radiology 10/26/2019 [facility] Author: Tequila Cruz Center Date: 10/25/19 Progress Note - Daily [facility] mpleted: Wednesday, OCT 25, 2019, 16:28 by Tequila Cruz RM: [id number] - 00, 3CP ROBERT HYATT 39y (: 1980) F Attending: Zaira Marquis MD Service: Internal Medicine Reason for Admission: R HYDRONEPHROSIS Code status: None Specified=FULL CODE Isolation: Contact Allergies: Rubber, vancomycin, morphine, Latex SUBJECTIVE Patient reports right flank pain per baseline prior to proce dure Admits to overnight nausea with vomiting but denies current symptoms She states she has prior history of PCN tube placement and feels comfortable with drain care with home health assistance OBJECTIVE Gen: AOOx3, NAD CV: RRR Resp: CTA bilaterally GI: soft, no TTP, +colostomy, + R flank nephroureter catheter with clean, dry dressing Extremity: no edema Skin: no rashes or jaundice 24hr Labs 10/25 0238 Glucose Lvl 92 BUN 10 Creatinine Lvl 0.47 L Sodium Lvl 138 Potassium Lvl 3.9 Chloride Lvl 105 CO2 20 L AGAP 16.9 Calcium Lvl 8.8 eGFR 143 WBC 9.2 RBC 4.48 Hgb 12.2 Hct 37.4 MCV 83.5 MCH 27.3 MCHC 32.7 RDW 14.7 H Platelet Clumped MPV xxxxxxx Segs 91.2 H Monocytes 2.3 Lymphocytes 6.3 L Basophils 0.2 Neutrophils # 8.4 H Lymphocytes # 0.6 L Monocytes # 0.2 Plt Morph Clumped Vitals Tmp(F) Pulse BP RR SpO2 FIO2 10/25 15:17 98.7 82 131/80 18 98 --- 10/25 12:11 98.3 72 137/85 18 100 --- 10/25 08:16 98.3 89 129/81 16 100 --- 10/25 04:35 98.3 79 139/80 18 100 --- 10/25 00:07 97.9 76 129/79 18 99 --- 24 Hr Tmax: 98.7F (37.06c) at 10/25 15:1 7 Vital Signs are the last 5 in the past 48 hours. Date Wt(kg) Wt(lb) Ht(cm) Ht(in) Method 10/21 (initial) 74.09 163.00 Estimated 10/21 152.40 60.00 Stated I&O Record In Out Bal 10/25 24hr Tot 52 0 52 10/24 24hr Tot 514 700 -186 Medications (23) Active Scheduled Meds (13): 10/21/19 acetaminophen (Tylenol) 500 mg PO Q6H 10/21/19 amLODIPine 5 mg PO Daily 10/24/19 ampicillin + Sodium Chloride 0.9% IV 50 mL 1 gm IVP B ABXQ6H 100 ml/hr 10/25/19 enoxaparin 40 mg SUB-Q [id number] 10/21/19 gabapentin (gabapentin 300 mg oral capsule) 300 mg PO Q8H 10/25/19 lidocaine topical (lidocaine to pical patch (5% film)) 1 patch TOP Daily 10/21/19 melatonin 3 mg PO Bedtime 10/23/19 nutritional supplement (Yash packet) 1 pkt PO BID- Before Meals 10/21/19 polyethylene glycol 3350 17 gm PO BID 10/25/19 remove patch 1 patch TOP Bedtime 10/23/19 senna 17.2 mg PO BID 10/21/19 sertraline 150 mg PO Bedtime 10/21/19 zolpidem (Ambien) 5 mg PO Bedtime Unscheduled Meds: None PRN Meds (6): 10/21/19 Dextrose 50% in Water IV (Dextrose 50% Syring e (D50W)) 12.5 gm IVP PRN 10/21/19 Dextrose 50% in Water IV (Dextrose 50% Syringe (D50 W)) 25 gm IVP PRN 10/23/19 albuterol (albuterol 0.083% inhalation solution) 2. 49 mg NEB RQ4H 10/21/19 glucagon 1 mg IM PRN 10/21/19 ondansetron (Zofran) 4 mg PO Q8H 10/25/19 tramadol 100 mg PO Q6H One Time Meds (4): 10/24/19 (Completed) hydromorphone (Dilaudid) 0.2 mg IVP ON CE 10/24/19 (Completed) ondansetron (Zofran) 4 mg IV ONCE 10/25/19 (Completed) ondansetron 4 mg IVP ONCE 10/24/19 (Completed) potassium chloride 40 mEq PO ONCE Continuous Infusions: None ASSESSMENT and PLAN Elva Hyatt is 39-year-old female with past history of spina bifida s/p HR GENERALIST shunt, DVT, paraplegia, hypertension, depression, right obstructive nephrolithiasis, divergent colostomy in 2004, and mu ltiple episodes of nephrolithiasis and l ithotripsy, who presents for right flank pain found with right urolithiasis s/p right PCNU placement by IR on 10/24/19 - Patient provided demonstration and pat ient education sheet on outpatient PCN care - Patient instructed to continue 10ml normal saline flush da brook - Plan for IR clinic visit in 2 weeks fo r drain management and further plan of care, clinic card given to patient - Patient to be discharged today per primary team, Team C Extracted from:Title: Infection Control Isolation Alert Author: Lilliana Vasques Date: 10/23/19 ISOLATION ALERT This patient has a history of infection/colonization with Organism/Condition Site Date MRSA MDR Pseudomonas Nares Urine 04/13/2018 01/31/2019 Isolation Required: CONTACT Before isolation precautions may be disc ontinued, the following protocol must be followed: IT IS NOT NECESSARY TO CULTURE STERILE S ITES (BLOOD, CSF, HEALED WOUNDS) WHEN TRYING TO DISCONTINUE ISOLATION. Organism/Condition Status Cultures/ Test Sites Multi-drug Resistant Gram Negative Bacteria (Defined [...] previous positive non-sterile site (e.g. urine, stool, t hroat) MRSA Off abx x 72hrs or 7 days if on dialysis and vancomycin MRSA PCR Nares specimen VRE Isolation precautions should not be discontinued Influenza Human (seasonal influenza) Maintain precautions for 7 days after il lness onset or until 24 hours after resolution of fever and respiratory symptoms. Maintain precautions for longer periods in immunocompromised persons based on clinical judgment. TB: Pulmonary or Laryngeal Contact Infection Control at [phone] (on-call line) or [phone] (on- call pager ) If the patient is high risk or if there is still a strong clinical suspicion of pulmonary TB after one negative PCR due to epidemiological risk factors and clinical symptoms, another respiratory MTB PCR sample can be sent. Mycobacterium tuberculosis (MTB) PCR w/ Isolation MPP Sputum and/or BAL PCN-R or PCN-Intermediate Streptococcus pneumoniae 48 hrs of effective antibiotic and resol ution of clinical S/S of pulmonary involvement Stenotrophomonas R to Trimethoprim-Sulfa Methoxazole (T/S) Off abx x 72hrs or 7 days if on dialysis and aminoglycoside x2, 48h apart Any previous positive non-sterile site (e.g. urine, stool, throat) Chryseobacterium meningosepticum (former ly Flavobacterium meningosepticum) and other Chryseobacterium spp. R to minocycline, rifampin, or vancomycin Off abx x 72hrs or 7 days if on dialysis and vancomycin x2, 48h apart Any previous positive non-sterile site (e.g. urine, stool, t hroat) Gram negative enterics: Salmonella, Shigella, etc. Off abx x 48 hrs x2, 48h apart Stool Varicella Zoster Maintain precautions until all lesions a re dry and crusted. Place susceptible patients on precautions beginning day 8 after exposure to day 21 after last exposure or day 28 for patients who have received VZIG. Measles (rubeola) Maintain precautions for 4 days after on set of rash except duration of illness (with wound lesions, until wounds stop draining) in immunocompromised persons. Consult Infection Disease Physician for suggested regimens for decolonization of patients with MRSA as well as for any questions. Please contact the Infection Control De partment with any questions. We can be reached at [phone]. Extracted from:Title: Team C History and Physical Author: Tabby Howell MD Date: 10/21/19 Patient is 38-year-old female with past history ofspina bifidas/p HR GENERALIST shunt,DVT,paraplegia, hypertension, depression,right obstructivenephrolithiasis, divergentcolostomyin 2003, and multipleepisodes of n ephrolithiasis and lithotripsy, whoprese ntsforright flank pain that startedthis morning. Suspected urolithiasis vs pyelonephritis. 1.Sepsis secondary to UTI(A41.9) 2.Acute UTI(N39.0) 3.Urolithiasis(N20.9) -CT 09/29with rightureteral stones -CT renal stonepending -Urinalysis pending -Based on previousurine cultures,will st artmeropenem 1 g Q24H and linezolid 600 mg IV Q12H -Obtain UA, urine culture -Obtain blood cultures -Consult urology pending CT -Diet n.p.o.for now -[id number] cc/h 4.Acute constipation(K59.00) -Continue MiraLAX twice daily -Continue senna daily 5.Hypertension(I10) -Home regimen:Amlodipine5 mg daily -Continue home amlodipine 6.Depression(F32.9) -Home regimen: Sertraline 150 mgnightly -hold sertraline due tolinezolid therapy for UTI 7.Insomnia(G47.00) -Home regimen:Zolpidem 5 mg nightly -Continue homezolpidem 8.Pleural effusion(J90) -Pt has chronic left pleural effusion du e to presence of ventriculopleural shunt for congenital hydrocephalus. Per chart review, she used to have ventriculoperitoneal shunt that was revised to ventricul opleural shunt in Jul 2002. She has been getting therapeutic thoracentesis every 4-6 months, last was >6 months ago per pt. -Currently no respiratory distress,plan for outpatient pleural effusion drainage 9.Chronic deep vein thrombosis (DVT)(I82.509) -Chronic left IJ DVT, last notedonultrasoundon 11/2018 -Previously on Xarelto, howeverit was sw itched to aspirin due to irregular menstrual bleeding -hold aspirin SCDs for now,holdingchemoprophylaxisfor possible procedure tomorrow Home pendingclinical improvement TEACHING ATTENDING ATTESTATION STATEMENT : I have seen and examined the patient and discussed the findings in detail with the team. I have reviewed the clinical data and note and I agree with the finding s and plan of care as outlined by Dr. Arnaldo trevino. Urology consult. Jackie/linezolid for pyelo/UTI based on her prior MDR cultures. Vanc allergy rash. Stop SSRI while on linezolid. Extracted from:Title: [place] Urology Plan of Care 08/30/2019 [facility] Author: Aris Beal DO Center Date: 08/29/19 Patient status post left ureteroscopy wi th no stone identified. Patient likely passed stone prior to procedure or stone came out when ureteral stent removed that was placed by IR. At this point patien t is stone free on the left side. Patie nt can follow up outpatient for discussion to treat right kidney stone at a later date as it is non-obstructing. Please have patient follow up with Dr. Madeline Acosta ub 6 weeks after discharge with repeat C T stone protocol prior to appointment. Call [phone] to schedule. Please page on-call urology with questions or concerns. Aris Beal DO PGY2 Urologic Surgery MSO: [id number] Extracted from:Title: Interventional Radiology Author: Rachel Matute NP Date: 08/29/19 IR is consulted for a PCN conversion to PCNU for a PCNL to be done by Urology today. Urology briefly discussed this over the phone with IR Attending, Dr. Kennedy yesterday and at that time he was told the patient has a PCN. However, after revie wing imaging during rounds this am it is noted that the patient has a Retrograde Ureteral Stent, not a PCN. Due to body habitus, it is recommended by IR that Urol ogy use Retrograde URS. Urology is paged to discuss this. Plan of care discussed with Dr. Kennedy and Dr. Larsen. Rachel Matute, [facility] Interventional Radiology Extracted from:Title: Team C History and Physical Author: Alexandra Louis MD Date: 08/25/19 Patient is 38-year-old female with past history ofspina bifidastatus postVP shunt,DVTon Xarelto,functionalparaplegia, hypertension, depression,right obstructivenephrolithiasis status postpercutaneous ne phrostomy, divergentcolostomyin 2003, he re as a transfer from OSH aftershe developed L Flank pain, nausea, vomiting, and fever and was found to have a 9mm obstructing UPJ stone. s/p L PCN by IR 08/25/19 . UA + for leuk esterases, negative for nitrites. Pending Urine Cx. Plan for lithotripsy after treatment for UTI, currently on meropenem and linezolid given h/oESBL MDR organisms in past. 1.Acute sepsis(A41.9) 2.Acute UTI(N39.0) 3.Kidney stone(N20.0) - Urology following, appreciate recs - Numerous stones seen on repeat CT a/p. - U/A dirty with + Leuk esterase, pending urine culture - coverage with meropenem 1gtidand linez olid 600 mg q12hrs (08/25-current), h/o esbl's. - s/p L PCN placement by IR today - Plan for lithotripsy by Urology next week. 4.Hypokalemia(E87.6) - 3.1 on admit, will replete. 5.DEE (acute kidney injury)(N17.9) - cr 1.05, baseline around 0.5. 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 I have reviewed the clinical data and note a nd I agree with the findings and plan of care as outlined by Extracted from:Title: [place] Uro PN 01/23/2019 [facility] Author: Leslye Castro MD Center Date: 01/23/19 Impression and Plan Patient is a 38 yo F with H spina bifi da sp diverting colostomy and urostomy who presented to ED as a transfer from OSH for dislodgement of PCN tube. - patient clinically stable and stent still in place - do not think PCN needs to be replaced - patient okay to be discharged and can follow up with Dr. Aleman in 2-3 weeks after discharge. 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 IT IS NOT NECESSARY TO CULTURE STERILE S ITES (BLOOD, CSF, HEALED WOUNDS) WHEN TRYING TO [...] previous positive non-sterile site (e.g. urine, stool, t hroat) MRSA Off abx x 72hrs or 7 days if on dialysis and vancomycin MRSA PCR Nares specimen VRE Isolation precautions should not be discontinued Influenza Human (seasonal influenza) Maintain precautions for 7 days after il lness onset or until 24 hours after resolution of fever and respiratory symptoms. Maintain precautions for longer periods in immunocompromised persons based on clinical judgment. TB: Pulmonary or Laryngeal Contact Infection Control at (on-call line) or [phone] (on- call pager ) If the patient is high risk or if there is still a strong clinical suspicion of pulmonary TB after one negative PCR due to epidemiological risk factors and clinical symptoms, another respiratory MTB PCR sample can be sent. Mycobacterium tuberculosis (MTB) PCR w/ Isolation MPP Sputum and/or BAL PCN-R or PCN-Intermediate Streptococcus pneumoniae 48 hrs of effective antibiotic and resol ution of clinical S/S of pulmonary involvement Stenotrophomonas R to Trimethoprim-Sulfa Methoxazole (T/S) Off abx x 72hrs or 7 days if on dialysis and aminoglycoside x2, 48h apart Any previous positive non-sterile site (e.g. urine, stool, throat) Chryseobacterium meningosepticum (former ly Flavobacterium meningosepticum) and other Chryseobacterium spp. R to minocycline, rifampin, or vancomycin Off abx x 72hrs or 7 days if on dialysis and vancomycin x2, 48h apart Any previous positive non-sterile site (e.g. urine, stool, t hroat) Gram negative enterics: Salmonella, Shigella, etc. Off abx x 48 hrs x2, 48h apart Stool Varicella Zoster Maintain precautions until all lesions a re dry and crusted. Place susceptible patients on precautions beginning day 8 after exposure to day 21 after last exposure or day 28 for patients who have received VZIG. Measles (rubeola) Maintain precautions for 4 days after on set of rash except duration of illness (with wound lesions, until wounds stop draining) in immunocompromised persons. Consult Infection Disease Physician for suggested regimens for decolonization of patients with MRSA as well as for any questions. Please contact the Infection Control De partment at [phone] with any questions regarding isolation. Extracted from:Title: History and Physical Author: Vicente Alberts MD Date: 01/22/19 38-year-old female withrightobstructiven ephrolithiasis presented for dislodged nephrostomy tube. 1.Nephrostomy dislodgement(Z93.6) Urology consulted for PCN replacement. keep NPO Ordered: tramadol, 50 mg, Route: PO, Drug form: T AB, Q6H, Dosing Weight 64.545, kg, PRN Pain Score 1-3, Start date: 01/22/19 6:42:00 CDT, Duration: 30 day, Stop date: 02/21/19 6:41:00 CDT 2.Spina bifida(Q05.9) s/p HR GENERALIST shunt, c/b paraplegia. no active issue. Ordered: tramadol, 50 mg, Route: PO, Drug form: T AB, Q6H, Dosing Weight 64.545, kg, PRN Pain Score 1-3, Start date: 01/22/19 6:42:00 CDT, Duration: 30 day, Stop date: 02/21/19 6:41:00 CDT 3.Colostomy status(Z93.3) s/p diverting colostomy. 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 She has no acute sign of UTI. will continue augmen, minocycline and fluconazole to complete 10 days course Ordered: tramadol, 50 mg, Route: PO, Drug form: T AB, Q6H, Dosing Weight 64.545, kg, PRN Pain Score 1-3, Start date: 01/22/19 6:42:00 CDT, Duration: 30 day, Stop date: 02/21/19 6:41:00 CDT 8.Benign essential HTN(I10) amlodipine 9.Anxiety(F41.9) sertraline restart xarelto when postop expect 1-2mn, return to home on discharge. Extracted from:Title: Urology Progress Note 01/15/2019 [facility] Author: Caio Villalobos MD Center Date: 01/15/19 Impression and Plan Pt is a 38 y.o G0 with PMH paralysis 2/2 spina bifida, pelvic organ prolapse s/p vaginal reconstruction, h/o kidney stones s/p right PCN now s/p mirena placement and PCNL. #Nephrolithiasis/UTI - s/p PCNL on 01/12. - PCN uncapped - Continue abx #Heavy menstrual bleeding: - s/p hscope d&c, mirena IUD placement and pap #POP - s/p reconstructive surgery and pessary removal in the offi ce by Dr Aguilar #Spina bifida - paralyzed from waist down with ileostomy in place - s/p vetriculopleural shunt converted from ventriculoperito vito shunt # H/o DVT - L. IJ, [...] hysterosc opy, dilation and curettage , Mirena Int ra uterine device insertion and pap smear. Constitutional Symptoms: no fever, no w eight loss, no weight gain, no fatigue, no malaise Eyes: no diplopia, no blurred vision, no redness, no discharge, no loss of vision Ears, Nose, Mouth, Throat: no dysphagia, no odynophagia, no otalgia, no deafness, no rhinorrhea Cardiovascular: no chest pain, no SOB, n o ZELAYA, no orthopnea, no PND, exercise tolerated, no palpitations Respiratory: same as CVS, no cough, no hemoptysis Gastrointestinal: no NVD, no BPR, no triston k stool, no constipation, no abdominal pain Genitourinary: no dysuria, no frequency, no urgency, no nocturia, no incontinence Musculoskeletal: no arthralgia, no myalgia, no stiffness Integumentary: (skin and/or breast): no rash, no hives, no breast pain, no mass, no nipple dc Neurological: no weakness, no headache, no seizure, no dizziness, no tingling, no numbness Psychiatric: no anxiety, no depression, no insomnia Endocrine: no polyuria, no polydipsia, no fatigue, no weight loss, no weight gain, no cold or heat intolerance, no palpitations Hematologic/Lymphatic: no bruising, no edema, no lumps (axi lla groin neck) Allergic/Immunologic: no rash, no allergies, no fever, no ch ills OBHX: G0 GYNHX: STD: den abn paps: [...] of view. Reproductive organs: The uterus is antev erted. There are multiple T2 hypointense uterine fibroids. A 5.1 x 4.2 x 5.3 cm intramural fibroid is present on the posterior uterine fundus. A 4.3 x 3.7 x 3.8 c m intramural fibroid is present on the a nterior uterine fundus. A 3.8 x 3.2 x 2.9 cm fibroid appears separate, but adjacent to the uterus in the region of the left broad ligament. A few additional small er intramural uterine fibroids are prese nt. There is also an ill-defined area of T2 hypointensity on the right anterior uterine fundus containing numerous tiny internal foci of T2 hyperintensity, sugges tive of an adenomyoma. This region measu res 4.1 x 4 x 4.1 cm. The junctional zone measures up to 5 mm in thickness. The endometrium is normal in thickness, measuring up to 8 mm. Nabothian cysts are present in the cervix. Subcentimeter follicles are present in the bilateral ovaries . Peritoneum/retroperitoneum: A small amou nt of free fluid is present in the [...] acetabulum. Soft tissues: A sacral decubitus ulcer i s present. Enhancement is seen around the right greater trochanteric bursa suggestive of bursitis. There is diastases of the rectus abdominis muscles. Other: A partially visualized right kidn ey demonstrates multiple low signal filling defects in [...] 6. Findings suggestive of right greater trochanteric bursit is. 7. Left lower quadrant colostomy. Assessment/plan: Pt is a 38 y.o G0 with PMH of heavy menstrual bleeding requiring blood transfusions, asthma, pelvic organ prolapse s/p vaginal reconstruction, h/o kidney stones s/p right PCN on 12/15, D VT ( not on anticoagulation anymore),pre ssure wounds and spina bifida from which she is paralyzed from the waist down here for surgical management of her heavy menstrual bleeding with planned procedure of hysteroscopy, dilation and curettage , Mirena Intrauterine device insertion and pap smear. 1. Heavy menstrual bleeding: - has required multiple blood transfusio ns in the past, with recent admission to [facility] with Hb 4. - MRI: ET 8mm, adenomyosis noted in uter ine fundus, Multiple intramural fibroids and one Anterior uterine fibroid 3.8 cm - last hgb 11.1 - will proceed with hscope d&c, mirena IUD placement and pap 2. POP - s/p reconstructive surgery and pessary removal in the offi ce by Dr Aguilar - pt had never removed the pessary since it was placed by Dr Mahoney in 2009 - no prolapse sxs since removal of pessary 3. Spina bifida - paralyzed from waist down with ileostomy in place - s/p vetriculopleural shunt converted from ventriculoperito vito shunt 4. H/o DVT -L. IJ, currently not in anticoagulation - denies sxs today 5. Asthma - takes xopenex for this - no sxs currently - if pt stays in house overnight, will order this to bedside 6. chronic kidney stones - s/p R PCN placement by urology in 11/2018 for nephrolithias is - history of sepsis after admission for nephrolithiasis in which PCN tube was placed and had to be exchanged because of sepsis - most recent U clx pos for acinetobacter and enterococcus - s/p rx with amoxicillin - plan for combined procedure for lithotripsy. 7. complicated UTI - s/p admission for complicated UTI requ iring R PCN placement. sp exchange in 11/2018 - received abx for 2 days in house and oral meds in out pt 8. HCM Pap: none on file GC/CT: none on file Dispo: to OR for combined procedure with Urology. Kelly Miramontes M.D Resident Physician | PGY1 Department of Obstetrics, Gynecology and Reproductive Scienc es [facility] [place] Extracted from:Title: FM pn 12/19/2018 [facility] Author: Masoud Lee MD Center Date: 12/19/18 In summary, 38 YOF with pmhx of spina bifida s/p vp lab shunt, diverity colostomy and urostomy, dvts (no [...] d/c'ed -transitioned to PO macrobid day5 out o f 10, ciprofloxacin day 5 of 10 (total abx days) - UA with reflex culture- E. Coli > 100 k, sens. to macrobid, proteus 50-100k sens. to [...] CDT ATTENDING ADDENDUM Ipersonally interviewed and examined thi s patient with the residents. I reviewed labs, studies and consultants notes. I agree with above assessment and plan. Briefly,38 yo female with spina bifida prese nted with nephrolithiasis s/p right perc utaneous nephrostomy tube and found to have enterococcus and proteus uti. No events overnight. Respondedrobustly to stool softeners for constipation.VS have stabi lized. Labsremarkable for microcytic ane dasha. Plan is optimize nutrition, discharge home with a total of 10 days of macrobid and cipro for her complicated utis and close follow up with urology and pcp. D ischarge today in improved condition. Discharge time 35 min. 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 IT IS NOT NECESSARY TO CULTURE STERILE S ITES (BLOOD, CSF, HEALED WOUNDS) WHEN TRYING TO [...] previous positive non-sterile site (e.g. urine, stool, t hroat) MRSA Off abx x 72hrs or 7 days if on dialysis and vancomycin MRSA PCR Nares specimen VRE Isolation precautions should not be discontinued Influenza Human (seasonal influenza) Maintain precautions for 7 days after il lness onset or until 24 hours after resolution of fever and respiratory symptoms. Maintain precautions for longer periods in immunocompromised persons based on clinical judgment. TB: Pulmonary or Laryngeal Contact Infection Control at (on-call line) or [phone] (on- call pager ) If the patient is high risk or if there is still a strong clinical suspicion of pulmonary TB after one negative PCR due to epidemiological risk factors and clinical symptoms, another respiratory MTB PCR sample can be sent. Mycobacterium tuberculosis (MTB) PCR w/ Isolation MPP Sputum and/or BAL PCN-R or PCN-Intermediate Streptococcus pneumoniae 48 hrs of effective antibiotic and resol ution of clinical S/S of pulmonary involvement Stenotrophomonas R to Trimethoprim-Sulfa Methoxazole (T/S) Off abx x 72hrs or 7 days if on dialysis and aminoglycoside x2, 48h apart Any previous positive non-sterile site (e.g. urine, stool, throat) Chryseobacterium meningosepticum (former ly Flavobacterium meningosepticum) and other Chryseobacterium spp. R to minocycline, rifampin, or vancomycin Off abx x 72hrs or 7 days if on dialysis and vancomycin x2, 48h apart Any previous positive non-sterile site (e.g. urine, stool, t hroat) Gram negative enterics: Salmonella, Shigella, etc. Off abx x 48 hrs x2, 48h apart Stool Varicella Zoster Maintain precautions until all lesions a re dry and crusted. Place susceptible patients on precautions beginning day 8 after exposure to day 21 after last exposure or day 28 for patients who have received VZIG. Measles (rubeola) Maintain precautions for 4 days after on set of rash except duration of illness (with wound lesions, until wounds stop draining) in immunocompromised persons. Consult Infection Disease Physician for suggested regimens for decolonization of patients with MRSA as well as for any questions. Please contact the Infection Control De partment at [phone] with any questions regarding isolation. Extracted from:Title: Clinical Document Author: Rocio Dickson MD Date: 12/14/18 R1 History and Physical PATIENT NAME: Elva Hyatt ATTENDING PHYSICIAN: Dr. Jacobo DATE OF ADMISSION: 12/14/2018 HISTORY TAKEN FROM: Patient, Electronic Medical Records and ER notes CHIEF COMPLAINT: right sided flank pain HISTORY OF PRESENT ILLNESS: In summary, 38 YOF with pmhx of spina bi fida s/p vp lab shunt, diverity colostomy and urostomy, dvts (no longer on anticoagulation, previously on xarelto), HTN, sleep apnea, pressure ulcers, menorrhagia req uiring transfusions, anxiety and depress ion, and recurrent nephrolithiasis s/p pcns last year bilaterally presented from OSH for higher level of care with nephrolithiasis with right hydronephrosis and c oncern for pyelonephritis. Patient said yesterday morning she began having an abrupt onset of sharp right flank pain, nausea, 2x nonbloody emesis, subjective fevers (99.7 F measured under tongue), and c hills. Niece then called EMS. Patient lechuga s not noticed changes in output but does endorse foul smelling urine [facility] for multiple R ureteral calculi w/ moderat e R hydro on CT. OSH CT report notable for moderate L ple ural effusion, b/l renal calculi, R ureteral calculi w/ multiple stones between 3-10mm, moderate R hydro. CT Chest non/con shows ventricular shunt in L pleura, mo derate L pleural effusion w/ atelectasis, no pericardial eff usion, no LAD UA: 1+blood, 3+ Leuk, Pos Nitrite, 10-20 WBCs, 20-50 Castillo CBC: 15.2>10.4<510 Lactate: 1.0 LFTs wnl Previous hospitalization 04/12/2018: bloo d cultures + for pansensitive ecoli with urine cultures growing ecoli, pseudomonas, and enterococcus Additionally, Patient currently endorses having a decubitus ulcer which is being followed by obgyn for possible reconstruction in the future. 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 +TOD CARDIAC: No tachycardia, dyspnea on exertion, orthopnea, PN D GASTROINTESTINAL: see HPI URINARY: see hpi MUSCULOSKELETAL: Denies any joint pain or edema NEUROLOGICAL: No syncope, seizures, changes in sensation or weakness HEMATOLOGY: No easy bruising, bleeding, lymphadenopathy ===== FOOD/NUTRITION SERVICES ===== Diet NPO 12/14/18 4:24:00 CDT (no %PO [...] Dextrose 50% in Water IV (Dextrose 50% Syringe ) 12.5 gm IVP PRN 12/14/18 4:24 Dextrose 50% in Water IV (Dextrose 50% Syringe ) 25 gm IVP PRN 12/14/18 4:24 glucagon 1 mg IM PRN 12/14/18 4:24 melatonin 3 mg PO Bedtime One Time Meds (4): 12/13/18 19:41 (Completed) hydromorphone (Dilaudid) 0.5 mg I HR GENERALIST ONCE 12/13/18 21:56 (Completed) hydromorphone (Dilaudid) 0.5 mg I HR GENERALIST ONCE 12/14/18 2:51 (Completed) hydromorphone 0.5 mg IVP ONCE 12/13/18 21:56 (Completed) ondansetron (Zofran) 4 mg IVP ONC E Continuous Infusions: None VITAL SIGNS: Vitals Tmp(F) Tmp(C) Ttype B P MAP Pulse RR SpO2 FIO2 ETCO2 12/14 04:40 98.8 37.11 oral 119/66 86 115 -- 98 --- --- 12/14 03:30 ---- ---- ---- - ---- --- 112 18 98 --- --- 12/14 01:30 98.9 37.17 oral 134/74 98 108 18 100 --- --- 12/13 23:25 ---- ---- ---- 1 84 119 18 98 --- --- 12/13 21:25 99.9 37.72 oral 84 120 18 98 --- --- 24 Hr Tmax: 100.6F (38.11c) at 12/13 19: 11 Vital Signs are the last 5 in the past 48 hours. 24 Hr Tmin: 98.8F (37.11c) at 12/14 04: 40 Weights are the last 5 in 60 days, plus initial. Date Wt(kg) Wt(lb) Ht(cm) Ht(in) Method BM I BSA 12/13 (initial) 64.55 142.00 Estimated 27 .8 1.65 12/13 152.40 60.00 Stated (no point of care glucose results charted in last 24 hours) Most Recent Scores: 12/14/18 [facility] Coma Score 15 12/13/18 [facility] Fall Score 10 (no lines, tubes, drains information documented) (no surgical procedures documented) PHYSICAL EXAMINATION: GENERAL: AAO x 3 , lying in bed in no acute distress. HEENT: Normal cephalic atraumatic, pupil s are equal, round and reactive to light, extraocular movements intact, oral pharynx clear NECK: neck supple, no JVD CARDIOVASCULAR: normal S1 and S2, regula r rhythm, tachycardic no murmurs, rubs, or gallops LUNGS: Clear to auscultation bilaterally ; no crackles, wheezes, rales; with reduced breath sounds ABDOMEN: soft with large abdominal defec t in midline (post surgical changes from graft) left sided colostomy and right sided urostomy, positive bowel sounds, right sided flank tenderness with guarding, right sided tenderness EXTREMITIES: unable to move her lower ex tremities. 5/5 upper extremity strength, extremities without edema SKIN: sacral decubitus ulcer stage 3-4 without purulent disc harge NEUROLOGIC: CN II-XII grossly intact, go od strength and sensation in upper extremities, significantly [...] summary, 38 YOF with pmhx of spina bi fida s/p vp lab shunt, diverity colostomy and urostomy, dvts (no longer on anticoagulation, previously on xarelto), HTN, sleep apnea, pressure ulcers and recurrent ne phrolithiasis s/p pcns last year bilater ally presented from OSH with nephrolithiasis and subsequent [...] was seen and discussed with PGY-3 Dr. Genaro hanks nd Attending Dr. Donnell Dickson MD PGY1 Department of Family and Community Medicine [id number] Attending's progress note. I saw this patient with residents Dr. Chery mays and Dr. Lam on 12/14/18. I agreed with assessments and plans. I reviewed labs and studies. This is a 38 yo qudriplegic F with h/o r ecurrent renal stones and PCN placement, currently with ileostomy and urostomy admitted for right nephrolithiasis/pyelonephritis/hydronephrosis started on ceftriazone and schedule to get a right PCN. Emory Peña [facility] Attedning. Extracted from:Title: Progress Note 04/20/2018 [facility] Author: Darrion Sesay MD Center Date: 04/19/18 This is a 37 year old Am er[place] woman with history fo Spina Bifida with colostomy status, vetriculpleural shunt draining in right lung space who represented to the hospital due to an infe cted nephrostomy tube after it was place d about 1 month ago for a left renal stone. She has deferveseced and is now being treated for Enteroccocus, Psuemdomonas, and E Coli pyelonephritis as well as e c rell bacteremia with amoxicillin-clavulanic acid and meropene m. 1.Severe Sepsis due to urinary tract infection This is resolving and she defervesced w hen we changed her to meropenemon04/16. She will [...] anti biotics and taking care of PCN. Patient' s mom was called she is not able to help with her care either. Social workers met with Mrs. Hyatt and she agreed to go to SNF, however, we have to wait for approval until tomorrow 04/20/2018. 2.History of DVT in adulthood She continues to have persitence of her femoral vein deep vein thrombosisdiagnosed in September 2017 that is actualy enlargening on repeat doppler in late January 2018.This is likely due to noncompliance t o her home xarelto.She will at least nee d to continue xarelto until May, if she is compliant. 3.History of kidney stones She had an admissionfor a left obstruct ing ureteral stone and recieved a nephrostomy tube [...] pulmonology Dr. De La Garza here at [facility]. 5.Nephrostomy status I also emphasized to her the need to fo llow-up with doctors for ther left percutaneous nephrostomy tube and change the bag so that she does not get infected again. 6.Pleural effusion The right pleural effusion was transuda tive based on light's criteria.Pulmonaryperformed athoracentesis this admission [...] Attending Attestation I personally interviewed and examined th e patient.I reviewed labs and imaging. I agree with Dr. Frederick findings and plan as outlines in todays note as they reflect my input.Patient feels well. Continue Merrem and Augmentin. Poo r social supportand difficult family situation, high risk [...] issues at this time, patient reports breathing s tatus at baseline GI - Continue bowel regimen #UTI #Nephrolithiasis - s/p L PCN on 02/2018, did not follow up. Likely source of sepsis. - Consutl IR in AM. Continue ATB therapy for now. ID #Sepsis from urinary tract infection - Pending cultures, continue Cefepime/Li nezolid. Will start with broad spectrum considering sepsis with PCN in place and history of MDR infections, though not in the recent past. - Ordered CT abd/Pelvis without contrast , consult IR in AM. Continue IVF therapy for Now. - Strict I's/O's. De-escalate according to sensitivities. Heme #L IJ DVT - Not complicant with Xarelto, thrombus again seen on 8 doppler. - Will start anticoagulation with Heparin [...] Dr. Shadi Ferro MD Internal Medicine PGY-3 [facility] Extracted from:Title: Progress Note 03/04/2018 [facility] Author: Randall Lucas MD Cent er Date: 03/03/18 1.Nephrolithiasis With left hydronephrosis status postpercutaneous nephrostom ytube. Patient will follow with urology as an outpatient to addres sthe4 mm UPJ stone 2.UTI (urinary tract infection) Urine culture grew enterococcus. Stop ceftriaxone start hang xicillin. 3.Functional Paraplegia Continue colostomy, urostomy care Orderedwheelchair for the patient. 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 Site Date Nares 05/06/2008 Isolation Required: CONTACT Before isolation precautions may be disc ontinued for this hospital visit, the following protocol must be followed and Infection Control should be notified: a. Patient must be off antibiotics fo r 72 hours or 7 days if on dialysis and vancomycin. b. Send one MRSA PCR nares specimen. Please place order for "MRSA PCR." Do not order "MRSA Culture." c. If MRSA PCR is negative, isolation may be discontinued . Patient can only be cleared from isolati on for this visit. If readmitted, patient must be isolated and screened for MRSA again. Consult Infection Control for suggested regimens for decolonization of pat ients with MRSA as well as for any quest ions. We can be reached at [phone]. Extracted from:Title: History and Physical Author: Prince Luna Barajas MD Date: 03/01/18 Patient is a 37 year old Saima n female with Spina bifida and extensive abdominal surgery 1.Nephrolithiasis 4 mm UPJ stone with mild left hydronephrosis Urology aware of patient PLAN: IR consult placed as per Urology r ecommendation for percutaneous nephrostomy placement. Patient has a difficult anatomy. Continue pain control with ketorolac 2.UTI (urinary tract infection) As per U/A Started on ceftriaxone Follow up Ucx pending Ordered: Admit/Condition, 03/01/18 6:21:00 CDT, S tatus: Inpatient, Acute, Expected LOS: 2 Midnights, Randall Lucas MD, Admit MD Review/Approve Yes, Isolation: No Isolation/Standard Precautions 3.Colostomy care Functional 4.Nephrostomy status Defer to Urology Heparin subc Home once medically cleared Extracted from:Title: [facility] Consult 11/06/2017 [facility] Author: Yamileth Madison MD PHD Center Date: 11/06/17 BASIC INFORMATION Referring Physician/Service:Elton Gay MD/EM Consulting Physician/Service: Cisco Henriquez DO/Samuel Consultation for: nausea and vomiting HPI: This is a 37-year-old AAF with PMH/ PSH of congenital hydrocephalus (s/p VPS) spina bifida (s/p flap reconstruction), sacral decubitus (complicated by septic shock requiring diverting colonostomy an d urostomy, labina reconstruction, abdom inal wall STSG), HTN and asthma presents to ED for 1 month history of nausea and vomiting. She started to feel nausea and vomiting (non billous, clear) when she was treated for UTI at [facility] (Gram negative rods, admitted 10/01- 10/08/2017). She [...] urostomy secondary to decubitus wound and need fo r diversion. Depression. Chronic left pleural effusion and pneumonia (2/2 ventriculop leural shunt) Paraplegia. Chronic UTI PSH: ventriculoperitoneal shunt ---> ventriculo-L pleural shunt spina bifida reconstruction with thigh flap diverting colonostomy, ileal loop urinar y diversion, labina reconstruction (for sacral decubitus) Abdominal wall STSG, s/p abdominal compartment syndrome SH: deniesx3, lives alone, mother visits for help Review of Systems: General: 102F 2 days ago, negative for chills HEENT: negative for recent visual and hearing changes Respiratory: negative for SOB, cough, and sputum production Cardiovascular: negative for chest pain and palpitation Gastrointestinal: postprandial nausea and vomiting, mild epi gastric pain Genitourinary: treated for UTI 10/01-10/07 requiring admission Integumentary: negative for rashes Extremities:negative for swelling or coldness Neurologic: negative for dizziness and headache Joss/Lymph: negative for brusing Endocrine: negative for thirstiness Psychiatric: negative for anxiety and depression Physical Exam: General appearance:NAD, Alert and orientedx3 HEENT: AT/NC, no discharges from nares/ears Cardiovascular: no mrg, pulses palpable 2+ in all 4 extremit ies Respiratory: diminished BS on the L side, non-labored breat thanh Gastrointestinal: not distended, s/p STS G well healed, very mild epigastric tenderness, no guarding/rebound Extremities: warm, well perfused, LE atrophic Skin: no rashes Neurological: paraplegic Psychiatric: appropriate mood , alert and oriented CT 11/06/2017 FINDINGS: Lines, tubes and hardware: None. Lower thorax: Moderate left pleural effu donald is noted with ventricular pleural catheter within it. Partially visualized catheter within the anterior abdominal wall. Liver: Normal. Biliary tree: No intra- or extrahepatic biliary ductal dilat ion. Gallbladder: Normal. No CT evidence of gallstones. Pancreas: Normal. Spleen: The spleen is normal in size. A 1.2 cm hypodensity in the anterior aspect (12/14) is unchanged from 11/13/2016 suggestive of benign etiology such as hemangioma. Adrenals: Normal. Kidneys and ureters: Cortical scarring n oted in the atrophic right kidney. Tiny hypodensity in the left interpolar region is unchanged from prior study and likely represent cyst. Bladder: Normal. Reproductive organs: The uterus shows hy podense masses in the anterior and posterior faulkner, likely representing fibroids which have increased in size compared to prior study. The posterior wall fibroid measures 3.8 cm compared to 2.9 cm previ ously and the anterior wall fibroid measures 6 [...] obstruction and this appearance is unchanged from October. Colon: Left lower quadrant colostomy noted. No evidence for obstruction. Peritoneum, mesentery and retroperitoneu m: No free air, ascites or loculated fluid. Lymph nodes: Normal. Vasculature: Normal. Bones: No acute abnormality. Redemonstra alda spinal dysraphism and bilateral hip dysplasia. Soft tissues: Urostomy noted in the righ t lower quadrant and colostomy in the left lower quadrant. Soft tissue thickening in the posterior aspect of lower pelvis likely represents decubitus ulcer/postsurgical change. Eventration of the peritoneum with diastasis of the thinned rectus muscle. IMPRESSION: 1. No evidence of bowel obstruction. Di lated focal segment of small bowel at the anastomotic site is unchanged from November 16, 2016 and is likely due to chronic postsurgical change possibly due to denervation. 2. Interval slight increase in size of uterine fibroids. 3. Moderate left pleural effusion with partially seen christy ter. 4. Other incidental findings described above are stable. ASSESSMENT and PLAN The patient is a 37 yo F with h/o divert ing colonostomy and urostomy, VPS (no longer in peritoneum, in L pleural space) and recent UTI presents to ED for 1 month history of nausea and vomiting The case was discussed with Drs. Escobar and Florence There is no surgical intervention is ind icated to the patient at this point as the patient does not have SBO. We will recommend the patient to be seen by GI and neurology to r/o gastritis and ventriculopleural shunt malfunctioning. We will be happy to follow-up the patient during hospitaliza [place]ion. [place] [facility] [place] [phone] for any further questi ons Yamileth Madison MD Res-1/PGY-[id number] [facility] [id number] Surgery Staff Discussed with Dr. Escobar Reviewed above note Agree with findings, assessment and plan Plan of Care No Data Provided for This Section Social History Social History Date Source Social History TypeResponse 01/22/2019 [facility] Alcohol Never Employment/School Status: disability . Exercise Exercise type: lifting herself into and out of bed and tranferring to wheelchair. Sexual Sexually active: No. Substance Abuse Use: None. Smoking Status Never smoker; Ready to change: No; Jyoti rns about tobacco use in household: No; Exposure to Tobacco Smoke None; Cigarette Smoking Last 365 Days No; Reg Smoking Cessation Counseling No entered on: 10/21/19 Social History TypeResponse 01/22/2019 [facility] Alcohol Never Employment/School Status: disability . Exercise Exercise type: lifting herself into and out of bed and tranferring to wheelchair. Sexual Sexually active: No. Substance Abuse Use: None. Smoking Status Never smoker; Type: Cigarettes; Exposure to Tobacco Smoke None; Cigarette Smoking Last 365 Days No; Reg Smoking Cessation Counseling No entered on: 08/25/19 Social History TypeResponse 12/14/2018 [facility] [place] Substance Abuse Use: None. Alcohol Never Smoking Status Never smoker; Ready to change: No; Jyoti rns about tobacco use in household: No; Exposure to Tobacco Smoke None; Cigarette Smoking Last 365 Days No; Reg Smoking Cessation Counseling No entered on: 12/13/18 Social History TypeResponse 12/14/2018 [id number] Substance Abuse Use: None. Alcohol Never Smoking Status Never smoker; Ready to change: No; Jyoti rns about tobacco use in household: No; Exposure to Tobacco Smoke None; Cigarette Smoking Last 365 Days No; Reg Smoking Cessation Counseling No entered on: 12/13/18 Family History No Data Provided for This Section Advance Directives No Data Provided for This Section Functional Status No Data Provided for This Section
--- OUTSIDE RECORDS SUMMARY | 2020-03-07 20:38 | XMS REPORT | Continuity of Care Document ---
:1980 Author Organization [facility] t Address [address] [place] [address] Care Team Providers Name Role Phone Luna Lowery Primary Care Physician JACKLYN Attending Clinician Unavailable ASH Attending Clinician Unavailable YELITZA Attending Clinician Unavailable Cabrera Marquis Attending Clinician DEVENDRA Attending Clinician Unavailable Regino Aleman Attending Clinician Quan Attending Clinician GENEVIEVE Attending Clinician Unavailable Noemi Flanagan Attending Clinician CHRISTOPHE Attending Clinician Unavailable Lorne Palacios Attending Clinician HERMILO Attending Clinician Unavailable MED PROVIDER Attending Clinician Unavailable Emory Alexandra Attending Clinician Omkar Aguilar Attending Clinician MELY Attending Clinician Unavailable Amanda Aleman Attending Clinician WAQAR LOMBARDI Attending Clinician Unavailable MABEL VERMA Attending Clinician Unavailable Devante Attending Clinician Unavailable DEVANTE Attending Clinician Unavailable Aristeo Attending Clinician Tuyet Lucas Attending Clinician Nelson Gay Attending Clinician TERRY Attending Clinician Unavailable Quan Admitting Clinician Javier Whiteside Admitting Clinician Lorne Palacios Admitting Clinician Emory Alexandra Admitting Clinician WAQAR LOMBARDI Admitting Clinician Unavailable MABEL VERMA Admitting Clinician Unavailable [facility] Admitting Clinician Tuyet Lucas Admitting Clinician Problems Condition Condition Condition Status Onset Resolution Last Treating Co mments Source Name Details Category Date Date Treatment Clinician Date CALCULUS Diagnosis Active 2020-02-15 M emoria OF KIDNEY 02-07 17:05:00 l CALCULUS 00:00: Rashid n OF KIDNEY 00 Active 02/08/2020 [facility] R Diagnosis Active 2019-11-02 Mem oria HYDRONEPHR 10-20 21:59:00 l OSIS R 00:00: Wyatt HYDRONEPHR 00 OSIS Active 10/20/2019 [facility] N20.0 - Diagnosis Active 2019-11-27 Ca moria CALCULUS 10-10 15:35:00 l OF KIDNEY N20.0 - 00:01: Herm carina CALCULUS 00 OF KIDNEY Active 10/10/2019 [facility] [place] SEPSIS Diagnosis Active 2018-082019-08-25 Mem oria 2 03:37:00 l SEPSIS 00:00: Wyatt 00 Active 08/24/2019 [facility] ACUTE Diagnosis Active 2018-082019-09-27 Mem oria SEPSIS/KID - 09:57:00 l [facility] ACUTE 00:00: Rashid n SEPSIS/KID 00 GARIMA STONE Active 08/24/2019 [facility] Pseudomona Problem Active 2019-10-27 M emoria s 01-31 23:34:06 l (organism) 00:00: Rashid n Pseudomona 00 s (organism) Active 01/31/2019 Problem 10/27/2019 Urine, 01/31/2019 Problem added by Discern Expert. [facility] OPID [place] HYDROEPHRO Diagnosis Active 2019-01-31 Memoria SIS RT 01-30 01:10:00 l KIDNEY 00:00: Matthews HYDROEPHRO 00 SIS RT KIDNEY Active 01/30/2019 [facility] OTHER Diagnosis Active 2019-01-22 Mem oria 5- 04:10:00 l OTHER 00:00: [place]att 00 Active 01/22/2019 [facility] NEPHROSTOM Diagnosis Active 2019-01-22 Memoria Y TUBE 5- 04:11:00 l PULLED OUT 00:00: Rashid tinsley NEPHROSTOM 00 Y TUBE PULLED OUT Active 01/22/2019 [facility] NEPHROSTOM Diagnosis Active 2019-01-30 Memoria Y - 22:24:00 l DISLODGEME 00:00: Rashid tinsley NT NEPHROSTOM 00 Y DISLODGEME NT Active 9 [facility] BEDDED Diagnosis Active 2019-01-06 Mem oria OUTPATIENT 12-29 10:19:00 l / PLEASE BEDDED 00:00: Rashid n CONVERT RT OUTPATIENT 00 PCN / PLEASE CONVERT RT PCN Active 12/29/2018 [facility] IRREGULAR Diagnosis Active 2019-02-14 Memoria MENSTRUATI - 13:40:00 l ON, 00:00: [place] UNSPECIFIE IRREGULAR 00 D MENSTRUATI ON, UNSPECIFIE D Active 12/23/2018 [facility] MULTIPLE Diagnosis Active 2019-01-15 M emoria URINAL 4-16 15:14:00 l CALCULL MULTIPLE 00:00: Radha nn URINAL 00 CALCULL Active 12/13/2018 [facility] KIDNEY Diagnosis Active 2019-01-03 Mem oria STONES 4-16 12:46:00 l KIDNEY 00:00: [place] STONES 00 Active 12/13/2018 [facility] R58 - Diagnosis Active 2019-05-11 Mem oria HEMORRHAGE 3-18 12:36:00 l , NOT R58 - 00:01: Wy[place] ELSEWHERE HEMORRHAGE 00 CLAS , NOT ELSEWHERE CLAS Active 11/14/2018 KRYSTIN Schneider History of History of Disease Active 2017-[address] MDR MDR 0-27 [facility] - Enterobact Enterobact 00:00: Me dical er cloacae er cloacae 00 Ce nter infection infection Right Right Disease Active 2017-[address] [facility] ureteral ureteral 0-13 [facility] - stone stone 00:00: Medical [address] [place] [address] Urinary Urinary Disease Active 2017-[address] [facility] tract tract 0-13 [facility] - obstructio obstructio 00:00: Me dical n due to n due to 00 Center kidney kidney stone stone Acute Acute Disease Active 2017-[address] [facility] cystitis cystitis 0-12 [facility] - without without 00:00: Medical hematuria hematuria 00 Cent er Hydronephr Hydronephr Disease Active 2017-[address] osis osis 0-12 [facility] - 00:[facility]: Medical 00 Center 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[address] [facility]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 00:00: Me dical bar region bar region 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 N12 - Diagnosis Active 2017-082018-07-07 Mem oria TUBULO-INT 0-01 15:52:00 l ERSTITIAL N12 - 00:01: Rashid tinsley NEPHRITIS, TUBULO-INT 00 ERSTITIAL NEPHRITIS, Active 05/30/2018 [facility] [place] Methicilli Problem Active 2019-10-27 M emoria n 8- 23:34:06 l resistant 00:00: [place] Staphyloco Methicilli 00 ccus n aureus resistant (organism) Staphyloco ccus aureus (organism) Active 04/13/2018 Problem 10/27/2019 Nasal swab, Nares [facility],2.1 [id number], OPID [place], [facility] [place] KIDNEY Diagnosis Active 2018-03-03 Mem oria STONE - 10:09:00 l KIDNEY 00:00: [place] STONE 00 Active 02/28/2018 [facility] VOMITING Diagnosis Active 2017-11-06 M emoria 3-10 09:34:00 l VOMITING 00:00: Rashid n 00 Active 11/06/2017 [facility] SMALL Diagnosis Active 2017-02-02 Mem oria BOWEL 3-17 08:12:00 l OBSTRUCTIO SMALL 00:00: Radha nn N BOWEL 00 OBSTRUCTIO N Active 11/13/2016 [facility] Pain Problem Active 2019-10-27 Memor ia (finding) 1-20 23:34:06 l Pain 00:00: Wyatt (finding) 00 Active 09/18/2010 Problem 10/27/2019 [facility],2.1 [id number], KRYSTIN Schneider, KRYSTIN Mireles History of History of Problem Resolve Univers [...] for it[place] [facility] Physic i ans Obstructio [...] spasm spasm ity of [place] Physici ans Nausea Problem 2018-02-12 Memor ia with 13:50:59 l vomiting, Nausea Radha nn unspecifie with d vomiting, unspecifie d 02/12/2018 [facility] Leiomyoma Problem 2018-02-12 Me moria of uterus, 13:50:59 l unspecifie Rashid n d Leiomyoma of uterus, unspecifie d 02/12/2018 [facility] 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 due to coli] [place] a coli [E. 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 11/07/2018 [facility] Acute Problem 2018-11-07 Memor ia posthemorr 12:33:34 l hagic Acute [place] anemia posthemorr hagic anemia 11/07/2018 [facility] Acute Problem 2018-11-07 Memor ia kidney 12:33:34 l failure, Acute [place] unspecifie kidney d failure, unspecifie d 11/07/2018 [facility] Patient's Problem 2018-11-07 Me moria noncomplia 12:33:34 l nce with [place] other Patient's medical noncomplia treatment nce with and other regimen medical treatment and regimen 11/07/2018 [facility] Attention- Problem 2018-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 n ity Attention- disorder, 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, unspecifie d type 11/07/2018 [facility] 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 Presence He rmann nal fluid of drainage cerebrospi device nal fluid drainage device 11/07/2018 [facility] Patient's Problem 2018-11-07 Me moria other 12:33:34 l noncomplia Rashid n nce with Patient's medication other regimen noncomplia nce with medication regimen 11/07/2018 [facility] Hypoxemia Problem 2018-11-07 Me moria 12:33:34 l [place] Hypoxemia 11/07/2018 [facility] Enterococc Problem 2018-11-07 M emoria us as the 12:33:34 l cause of [place] diseases Enterococc classified us as the elsewhere cause of diseases classified elsewhere 11/07/2018 [facility] 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) the cause (mallei) of (pseudomal diseases lei) as classified the cause elsewhere of diseases classified elsewhere 11/07/2018 [facility] Anemia in Problem 2018-11-07 Me moria other 12:33:34 l chronic Anemia Matthews diseases in other classified chronic elsewhere diseases classified elsewhere 11/07/2018 [facility] Other Problem 2018-11-07 Memor ia specified 12:33:34 l congenital Other Radha 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 11/07/2018 [facility] Shortness Problem 2018-11-07 Me moria of breath 12:33:34 l [place] Shortness of breath 11/07/2018 [facility] Blood Problem Resolve 2019-10-27 Tj boris coagulatio d 23:34:06 l n disorder Blood Radha nn (disorder) coagulatio n disorder (disorder) Resolved Problem 10/27/2019 [facility],2.1 [id number], KRYSTIN Schneider, [facility] [place] Colostomy Problem Resolve 2019-10-27 M emoria present d 23:34:06 l (finding) [place] Colostomy present (finding) Resolved Problem 10/27/2019 [facility],2.1 [id number], KRYSTIN Schneider, [facility] [place] Hypertensi Problem Resolve 2019-10-27 Memoria ve d 23:34:06 l disorder, [place] systemic Hypertensi arterial ve (disorder) disorder, systemic arterial (disorder) Resolved Problem 10/27/2019 [facility],2.1 [id number], KRYSTIN Schneider, [facility] [place] Depressive Problem Resolve 2019-10-27 Memoria disorder d 23:34:06 l (disorder) Rashid n Depressive disorder (disorder) Resolved Problem 10/27/2019 [facility],2.1 [id number], [facility] [place] Pneumothor Problem Resolve 2019-10-27 Memoria ax d 23:34:06 l (disorder) Rashid n Pneumothor ax (disorder) Resolved Problem 10/27/2019 [facility],2.1 6.840.1.11 [id number], KRYSTIN Schneider,[facility] [place] Spina Problem Resolve 2019-10-27 Tj boris bifida d 23:34:06 l (disorder) Spina Radha nn bifida (disorder) Resolved Problem 10/27/2019 [facility],2.1 [id number] [id number], KRYSTIN Schneider,[facility] Systemic Problem Resolve 2019-10-27 Me moria infection d 23:34:06 l (disorder) Systemic He rmann infection (disorder) Resolved Problem 10/27/2019 [facility],2.1 6.840.1.11 [id number], KRYSTIN Schneider,[facility] Colostomy Problem Active 2019-10-27 Me moria (procedure 23:34:06 l ) [place] Colostomy (procedure ) Active Problem 10/27/2019 [facility],2.1 6.840.1.11 [id number], KRYSTIN Schneider,[facility] [place] Congenital Problem Active 2019-10-27 M emoria hydrocepha 23:34:06 l suyapa [place] (disorder) Congenital hydrocepha suyapa (disorder) Active Problem 10/27/2019 [facility],2.1 6.840.1.11 [id number], KRYSTIN Schneider, [facility] [place] Nephrostom Problem Active 2019-10-27 M emoria y 23:34:06 l (procedure Rashid n ) Nephrostom y (procedure ) Active Problem 10/27/2019 [facility],2.1 6.840.1.11 [id number], KRYSTIN Schneider, [facility] Pleural Problem Active 2019-10-27 Tj boris effusion 23:34:06 l (disorder) Pleural Her quiles effusion (disorder) Active Problem 10/27/2019 [facility],2.1 6.840.1.11 [id number], KRYSTIN Schneider, KIRTID Aline OTHER Diagnosis Active 2017-02-02 Mem oria INTESTINAL 08:12:00 l OBSTRUCTIO OTHER Radha nn N INTESTINAL OBSTRUCTIO N Active [facility] URINARY Diagnosis Active 2018-03-03 Me moria TRACT 10:09:00 l INFECTION, URINARY Her quiles SITE NOT TRACT SPECIF INFECTION, SITE NOT SPECIF Active [facility] CALCULUS Diagnosis Active 2019-01-03 M emoria OF URETER 12:46:00 l CALCULUS Rashid n OF URETER Active [facility] OTHER Diagnosis Active 2019-01-30 Mem oria ARTIFICIAL 22:24:00 l OPENINGS OTHER Matthews OF URINARY ARTIFICIAL TRA OPENINGS OF URINARY TRA Active [facility] SEPSIS, Diagnosis Active 2019-09-27 Ca moria UNSPECIFIE 09:57:00 l D ORGANISM SEPSIS, Her quiles UNSPECIFIE D ORGANISM Active [facility] Displaceme Problem 2018-2019-02-02 2019-02-02 Memoria nt of 6-04 21:10:47 21:10:47 l urinary 17:00: [place] stent, Displaceme 00 initial nt of encounter urinary stent, initial encounter 01/31/2019 02/02/2019 [facility] Tubulo-int Problem 2017-082018-12-20 2018-12-20 Memoria erstitial 0-10 13:23:51 13:23:51 l nephritis, 04:25: Rashid n not Tubulo-int 06 specified erstitial as acute nephritis, or chronic not specified as acute or chronic 06/08/2018 12/20/2018 [facility],2.1 [id number] Infection Problem 2017-2018-11-07 2018-11-07 Memoria and 8 12:33:34 12:33:34 l inflammato 03:14: Rashid n ry Infection 48 reaction and due to inflammato nephrostom ry y reaction catheter, due to initial nephrostom encounter y catheter, initial encounter 04/28/2018 11/07/2018 [facility] Epigastric Problem 2017-2018-02-12 2018-02-12 Memoria pain 17 13:50:59 13:50:59 l 03:05: [place] Epigastric 12 pain 11/13/2017 02/12/2018 [facility] Vomiting, Problem 2018-02-12 2018-02-12 Memoria unspecifie 11-06 13:50:59 13:50:59 l d 06:00: [place] Vomiting, 00 unspecifie d 11/06/2017 02/12/2018 [facility] Allergies, Adverse Reactions, Alerts Allergy Allergy Status Severity Reaction(s) Onset Inactive Treating Comm ents Source Name Type Date Date Clinician Latex Propensi Active 2017-[address] [facility] 0-12 [facility] - adverse 00:00: Medical reaction 00 [place] s Morphine Propensi Active Other (See 2017-[address] ty to Comments) 0-12 tions [facility] - adverse 00:[facility]: [facility] reaction 00 Center s Vancomyc Propensi Active Itching [facility]12 [facility] - Analogue adverse 00:00: Medical s reaction 00 Center s Morphine Allergy Active Univers Derivati to drug ity of ves (finding [place] ) Physici ans Latex Allergy Active Univers Gloves to drug ity of (finding [place] ) Physici ans vancomyc Allergy Active Univers in to drug ity of (finding [place] ) Physici ans vancomyc vancomyc Active Memori a in in l [place] morphine morphine Active Memori a l [place] Latex Latex Active Memoria l [place] Food Food Active Memoria Chocolat Chocolat l e e [place] Rubber Rubber Active Memoria l [place] Social History Social Habit Start Date Stop Date Quantity Comments Source Sex Assigned At [facility] Social History 2018-12-14 2018-12-14 Aurea minor 03:20:32 03:20:32 Smoking Status Start Date Stop Date Source Never smoker [facility] Medications Ordered Filled Start Stop Current Ordering Indication Dosage Frequency Signature Comments Components Source Medication Medication Date Date Medication? Clinician (SIG) Name Name Nitrofurant Nitrofurant 2020-0 Yes IVETTE Q0.5D TAKE 1 Univers oin Monohyd oin Monohyd 7-07 [employer]ENN[employer] BOX INSPECTOR CAPSULE ity of Macro 100 [place] 100 [place] MG Oral MG Oral 00 DAILY. Physici Capsule Capsule ans Amoxicillin Amoxicillin 2020-0 Yes IVETTE Q12H TAKE 1 Univers -Pot -Pot 7-07 [employer]ENNINGS [employer]OURNA[employer] BOX INSPECTOR TABLET ity of Clavulanate Clavulanate 00:00: EVERY 12 [place] 875-125 MG 875-125 MG 00 HOURS Ph ysici Oral Tablet Oral Tablet DAILY. ans Amoxicillin Amoxicillin 2020-0 Yes PIERO Q12H TAKE 1 Univers -Pot -Pot 6-18 LUSE M.D. TABLET ity of Clavulanate Clavulanate 00:00: EVERY 12 [place] 875-125 MG 875-125 MG 00 HOURS Ph ysici Oral Tablet Oral Tablet UNTIL ans GONE. Sulfamethox Sulfamethox 2020-0 Yes IVETTE Q0.5D TAKE 1 Univers azole-Trime azole-Trime 5-26 [employer]ENN[employer] BOX INSPECTOR TABLET ity of thoprim thoprim 00:00: TWICE [place] 800-160 MG 800-160 MG 00 DAILY. P hysici Oral Tablet Oral Tablet a ns Nitrofurant Nitrofurant 2020-0 Yes IVETTE Q0.5D TAKE 1 Univers oin Monohyd oin Monohyd 5-26 [employer]ENN[employer]OX INSPECTOR CAPSULE ity of Macro 100 Macro 100 00:00: [place] MG Oral MG Oral 00 DAILY for Phys ici Capsule Capsule 7 days ans Oxybutynin Oxybutynin 2020-0 Yes IVETTE TAKE 1 Univers Chloride ER Chloride ER 3-25 [employer]ENN[employer]OX INSPECTOR TABLET BY ity of 5 MG Oral 5 MG Oral 00:00: MOUTH [place] Tablet Tablet 00 DAILY Physici Extended Extended ans Release 24 Release 24 Hour Hour Hyoscyamine Hyoscyamine 2020-[address] 1 Univers Sulfate Sulfate 3-20 [employer]ENN[employer]OX INSPECTOR TABLET it y of 0.125 MG 0.125 MG 00:00: UNDER THE [place] Sublingual Sublingual 00 TONGUE P hysici Tablet Tablet EVERY 4 TO ans Sublingual Sublingual 6 HOURS NEEDED. remove 2020-0 No Notes: Memoria patch 2-27 Remove l 03:00: patch 12 [place] 00 hours after applicatio n each day. Ondansetron 2020-0 Yes 4 mg = 1 Me moria 4 MG Oral 2-26 tab, PO, l Tablet 19:55: BID, # 10 Rashid n [Zofran] 00 tab, 0 Refill(s), Pharmacy: [facility] #[id number] tramadol 2019-0 Yes 100 mg = 2 Mem oria hydrochlori 2-26 tab, PO, l de 50 MG 19:53: Daily, PRN Her quiles Oral Tablet 00 Pain Score 7-10, X 7 day, # 14 tab, 0 Refill(s) sennosides, 0 Yes 17.2 mg = M emoria [facility] 8.6 MG -26 2 tab, PO, l Oral Tablet 19:53: BID, X 30 H ermann 00 day, # 120 tab, 0 Refill(s), Pharmacy: [facility] #[id number] amoxicillin 2019-0 Yes 875 mg = 1 Memoria 875 mg oral 2-26 tab, PO, l tablet 19:53: Q12H, X 10 Radha nn day, # 20 tab, 0 Refill(s), [id number] Lidocaine 2019-0 No Notes: Memori a 0.05 MG/MG - Apply only l Transdermal 15:00: once for He rmann Patch 00 up to 12 hours in a 24-hour period (12 hours on and 12 hours off). (Same as: Lidoderm) "Remove old patch before applicatio n of new patch" Tramadol No Notes: Not Mem oria 2-26 to exceed l 14:31: 400mg/day. Wyatt 00 (Same As: Ultram) Tramadol 2019-0 No 100 mg, Memori a 2-26 Route: PO, l 14:27: Drug form: Matthews 00 TAB, Q6H, Dosing Weight 74.091, kg, PRN Pain Score 4-6, Start date: 10/25/19 8:27:00 AUDIOLOGY ASSISTANT, Duration: 30 day, Stop date: 11/24/19 8:26:00 CDT Ondansetron 2019-0 No Notes: Tj boris 2-26 (Same as: l 14:21: Zofran) Matthews 00 MEDICATION WASTE Product Size: 4 mg Product Wasted: ___ mg Hydralazine 2019-0 No 10 mg, Tj boris 2-26 Route: l 01:57: IVP, Matthews 00 Q20Min, Dosing Weight 74.091, kg, PRN Elevated BP, Start date: 10/24/19 19:57:00 AUDIOLOGY ASSISTANT, Duration: 2 doses or times, Stop date: Limited # of times Labetalol 2020-0 No 10 mg, Memori a 2-26 Route: l 01:57: IVP, Matthews 00 Q5Min, Dosing Weight 74.091, kg, PRN Elevated BP, Start date: 10/24/19 19:57:00 AUDIOLOGY ASSISTANT, Duration: 5 doses or times, Stop date: Limited # of times Acetaminoph 2020-0 No 1,000 mg, M emoria en 2-26 Route: PO, l 01:57: Drug form: Matthews 00 TAB, ONCE, Dosing Weight 74.091, kg, PRN Pain Score 1-3, Start date: 10/24/19 19:57:00 AUDIOLOGY ASSISTANT Oxycodone 2020-0 No 5 mg, Memoria Hydrochlori 2-26 Route: PO, l de 5 MG 01:57: Drug form: Herm carina Oral Tablet 00 TAB, Q4H, Dosing Weight 74.091, kg, PRN Pain Score 4-6, Start date: 10/24/19 19:57:00 AUDIOLOGY ASSISTANT, Duration: 30 day, Stop date: 11/23/19 19:56:00 CDT Fentanyl 2020-0 No 25 Memoria 2-26 microgram, l 01:57: Route: Matthews 00 IVP, Q5Min, Dosing Weight 74.091, kg, PRN Pain Score 4-6, Priority: Routine, Start date: 10/24/19 19:57:00 AUDIOLOGY ASSISTANT, Duration: 4 doses or times, Stop date: Limited # of times Flumazenil 2020-0 No 0.2 mg, Tj boris 2-26 Route: l 01:57: IVP, PRN, Wyatt 00 Dosing Weight 74.091, kg, PRN Benzodiaze pine Reversal, Initial dose, Start date: 10/24/19 19:57:00 AUDIOLOGY ASSISTANT, Duration: 30 day, Stop date: 11/23/19 20:56:00 CDT Naloxone 2020-0 No 0.4 mg, Memori a 2-26 Route: l 01:57: IVP, Matthews 00 Q2MIN, Dosing Weight 74.091, kg, PRN Narcotic Reversal, Start date: 10/24/19 19:57:00 AUDIOLOGY ASSISTANT, Duration: 8 doses or times, Stop date: Limited # of times Ondansetron No 4 mg, Memor ia 10-25 Route: l 01:57: IVP, ONCE, Matthews 00 Dosing Weight 74.091, kg, PRN Nausea & Vomiting, Start date: 10/24/19 19:57:00 AUDIOLOGY ASSISTANT Ibuprofen No Notes: Memori a 2-25 (Same as: l 23:28: Motrin) Matthews "Do Not Crush" Give with food. Ampicillin No Notes: Memor ia 2-25 (Same as: l 22:30: Principen) Wyatt MEDICATION WASTE Product Size: 1000 mg Product Wasted: ___ mg Hydromorpho No Notes: Tj boris ne -25 Same as l 18:25: Dilaudid Wyatt 00 Dilaudid No Notes: Memoria 2-25 Same as l 15:24: Dilaudid Matthews 00 Ondansetron No Notes: Tj boris 2 MG/ML -25 (Same as: l Injectable 15:20: Zofran) Herm carina Solution 00 [Zofran] MEDICATION WASTE Product Size: 4 mg Product Wasted: ___ mg Potassium No Notes: Memori a Chloride 2-25 (Same as: l 12:31: K-Dur 20) Matthews "Do Not Crush" Give with food and full glass of water For patients unable to swallow tablet, dissolve in one half glass of water. Allow about 2 minutes for the tablets to disintegra te. Stir before giving to prepare slurry and administer . Please exclude Patient s with feeding tube less than 14 [place] (Dobhoff, J-tube etc) and pediatric and patients. Yash No 1 pkt, Memoria packet 10-23 Route: PO, l 22:30: Drug Form: Matthews 00 PWDR, Dosing Weight 74.091, kg, BID-Before Meals, Start date: 10/23/19 16:30:00 AUDIOLOGY ASSISTANT, Duration: 14 day, Stop date: 11/06/19 7:30:00 CDT Enoxaparin 0 No Notes: Memor ia 2-24 (Same as: l 20:56: Lovenox) Albuterol No Notes: SEE Me moria 0.83 MG/ML 2-24 RT l Inhalant 20:15: DOCUMENTAT Her quiles Solution 00 ION (Same as: Proventil) ketOROLAC 2019-0 No 4 days Memor ia 15 mg/mL 2-24 l injectable 19:00: MEDICATION H ermann solution 00 WASTE Product Size: 30 mg Product Wasted: ___ mg ketOROLAC 2019-0 No 15 mg, Memori a 15 mg/mL 2-24 Route: l injectable 18:53: IVP, Drug He rmann solution 00 form: INJ, ONCE, Dosing Weight 74.091, kg, Start date: 10/23/19 12:53:00 AUDIOLOGY ASSISTANT, Stop date: 10/23/19 12:53:00 AUDIOLOGY ASSISTANT Docusate No Notes: Memoria 2-24 (Same as: l 15:00: Colace) (Do Not Crush) sennosides, 0 No Notes: Tj boris [facility] 2-24 (Same as: l 15:00: Senokot) Bisacodyl No Notes: Memori a 2-24 (Same As: l 15:00: Dulcolax, Correctol) (Do Not Crush) "Do Not Crush" Bisacodyl No 10 mg, Memori a 2-24 Route: PO, l 14:51: Drug form: Matthews 00 ECTAB, Daily, Dosing Weight 74.091, kg, PRN Constipati on, Start date: 10/23/19 8:51:00 AUDIOLOGY ASSISTANT, Duration: 30 day, Stop date: 11/22/19 8:50:00 CDT Potassium 2019-0 No Notes: Memori a Chloride 2-24 (Same as: l 12:39: K-Dur 20) "Do Not Crush" Give with food and full glass of water For patients unable to swallow tablet, dissolve in one half glass of water. Allow about 2 minutes for the tablets to disintegra te. Stir before giving to prepare slurry and administer . Please exclude Patient s with feeding tube less than 14 [place] (Dobhoff, J-tube etc) and pediatric and patients. ketOROLAC 2020-0 No 4 days. Tj boris 15 mg/mL 2-23 l injectable 21:00: Matthews solution Methocarbam 2019- No Notes: Tj boris ol 2-23 (Same l 19:00: as:Robaxin ) Acetaminoph No Notes: Tj boris en 325 MG / 10-22 (Same as: l Hydrocodone 16:02: [place] Radha nn Bitartrate 00 325/5) Do 5 MG Oral not exceed Tablet 4gm/day of [[place] acetaminop 5/325] hen. Acetaminoph No Notes: Do M emoria en 325 MG / - not exceed l Hydrocodone 16:02: 4gm/day of Wyatt Bitartrate 00 acetaminop 10 MG Oral hen. Tablet (Same as: [[place] 10/325] 325/10) Dilaudid 2019- No Notes: Memoria 2-23 Same as l 14:36: Dilaudid sennosides, No Notes: Tj boris [facility] 2-23 (Same as: l 03:00: Senokot) Sertraline No Notes: Memor ia 2-23 (Same as: l 03:00: Zoloft) Melatonin 2019-0 No Notes: Memori a 2-23 (Same as: l 03:00: Melatonin) Ambien No Notes: Memoria 2-23 (Same As: l 03:00: Ambien) Enoxaparin 2019- No Notes: Memor ia 2-23 (Same as: l 03:00: Lovenox) Tylenol No 67 kg; Memoria 2-23 Pediatric l 00:00: Dosing Ibuprofen No 800 mg, Memor ia 2- Route: PO, l 22:00: Drug form: TAB, Q8H, Dosing Weight 74.091, kg, Start date: 10/21/19 16:00:00 AUDIOLOGY ASSISTANT, Duration: 30 day, Stop date: 11/20/19 8:00:00 CDT gabapentin No Notes: Memor ia 300 MG Oral 2-22 (Same as: l Capsule 20:45: Neurontin) Herm carina 00 Acetaminoph No Notes: Tj boris en 325 MG / 2-22 (Same as: l Hydrocodone 20:17: [place] Radha nn Bitartrate 00 325/5) Do 5 MG Oral not exceed Tablet 4gm/day of [[place] acetaminop 5/325] hen. Acetaminoph No Notes: Do M emoria en 325 MG / 2-22 not exceed l Hydrocodone 20:17: 4gm/day of Matthews Bitartrate 00 acetaminop 10 MG Oral hen. Tablet (Same as: [[place] 10/325] 325/10) Acetaminoph No Notes: Do M emoria en 325 MG / 2-22 not exceed l Hydrocodone 19:37: 4gm/day of Matthews Bitartrate 00 acetaminop 10 MG Oral hen. Tablet (Same as: [[place] 10/325] 325/10) meropenem No Notes: Memori a 2-22 (Same as: l 17:00: Merrem) . Matthews MEDICATION WASTE Product Size: 1000 mg Product Wasted: ___ mg Ibuprofen No Notes: Memori a 2-22 (Same as: l 16:00: Motrin) Matthews "Do Not Crush" Take with food. Roxicodone No Notes: Memor ia 2-22 (Same as: l 15:46: Roxicodone Wyatt ) Acetaminoph No Notes: Max Memoria en 2-22 acetaminop l 15:06: hen 4000 Matthews 00 mg/day (4 gm/day). (Same as: Tylenol Extra Strength) oxyCODONE No 10 mg, Memori a 10 mg 2-22 Route: PO, l extended 15:05: Drug form: Her quiles release 00 ERTAB, Q6H, PRN Pain Score 7-10, Start date: 10/21/19 9:05:00 AUDIOLOGY ASSISTANT, Duration: 30 day, Stop date: 11/20/19 9:04:00 CDT Oxycodone 2020-0 No Notes: Memori a Hydrochlori 2-22 (Same as: l de 5 MG 15:05: Roxicodone Herm carina Oral Tablet 00 ) Oxycodone 2020-0 No Notes: Memori a Hydrochlori 2-22 (Same as: l de 5 MG 15:01: Roxicodone Herm carina Oral Tablet 00 ) POLYETHYLEN 2020-0 No Notes: Tj boris E GLYCOL 2-22 Dissolve l 3350 15:00: in 8 oz of water or juice. (Same as: Miralax) Amlodipine 2019-0 No Notes: Memor ia 2-22 (Same as: l 15:00: Norvasc) linezolid 2019-0 No Notes: Memori a 2-22 (Same as: l 11:00: Zyvox) meropenem 2019-0 No Notes: Memori a 2-22 (Same as: l 11:00: Merrem) . MEDICATION WASTE Product Size: 1000 mg Product Wasted: 0 mg Aspirin 2020-0 No Notes: Memoria 2-22 Take with l 10:00: food. cefepime 2019-0 No Notes: Memoria 2-22 (Same As: l 09:00: Maxipime) MEDICATION WASTE Product Size: 1000 mg Product Wasted: ___ mg Ambien 2020-0 No 5 mg, Memoria 2-22 Route: PO, l 08:32: ONCE, Dosing Weight 74.091, kg, Start date: 10/21/19 2:32:00 AUDIOLOGY ASSISTANT, Stop date: 10/21/19 2:32:00 AUDIOLOGY ASSISTANT Lactated 2020-0 No 1,000 mL, Tj boris Ringers IV 10-21 Rate: 100 l 1,000 mL 08:27: ml/hr, Infuse over: 10 hr, Route: IV, Dosing Weight 74.091 kg, Total Volume: 1,000, Start date: 10/21/19 2:27:00 AUDIOLOGY ASSISTANT, Duration: 30 day, Stop date: 11/20/19 2:26:00 CDT, 1.8, m2, 0 Acetaminoph 2020-0 No Notes: Do M emoria en 325 MG / 2-22 not exceed l Hydrocodone 07:16: 4gm/day of Matthews Bitartrate 00 acetaminop 10 MG Oral hen. Tablet (Same as: [place] 325/10) Dilaudid 2019-0 No Notes: Memoria 2- Same as l 07:14: Dilaudid Matthews 00 Zofran 2020-0 No Notes: Memoria 2-22 (Same as: l 07:13: Zofran) Wyatt 00 Adult 2019-0 No 325 mg = 1 Memori a Aspirin 325 2-22 tab, PO, l mg oral 07:12: Q4H, 0 Wyatt tablet 00 Refill(s) Diphenhydra 2019-0 Yes 25 mg, PO, Memoria mine - Daily, 0 l 07:12: Refill(s) [place] Miralax 2019-0 Yes 17 gm, PO, Tj boris - BID, 0 l 07:12: Refill(s) [place] Acetaminoph 2020-0 No 0 Memori a en 325 MG / 10-21 Refill(s) l Hydrocodone 07:11: Rashid n Bitartrate 00 10 MG Oral Tablet Dextrose 2019-0 No 12.5 gm, Memor ia 50% Syringe 10-21 25 mL, l (D50W) 07:09: Route: Matthews 00 IVP, Drug Form: INJ, Dosing Weight 81.8, kg, PRN, PRN Blood Glucose Results, Start date: 10/21/19 1:09:00 AUDIOLOGY ASSISTANT, Duration: 30 day, Stop date: 11/20/19 2:08:00 CDT, 0 Glucagon 2019-0 No 1 mg, Memoria 10-21 Route: IM, l 07:09: Drug form: Matthews 00 PDR/INJ, PRN, Dosing Weight 81.8, kg, PRN Blood Glucose Results, Start date: 10/21/19 1:09:00 AUDIOLOGY ASSISTANT, Duration: 30 day, Stop date: 11/20/19 2:08:00 CDT, 0 Acetaminoph 2020-0 No Notes: Do M emoria en 2-22 not exceed l 07:09: 4 gm/day. Wyatt 00 (Same as: Tylenol) Mirena 20 Mirena 20 2020-0 Yes VERONA USE Univers MCG/24HR MCG/24HR 1-14 TORRE DIRECTED. ity of Intrauterin Intrauterin 00:00: M.D. [place] e e 00 Physici Intrauterin Intrauterin a ns e Device e Device Ammonium Ammonium 2019-0 Yes VREONA Q0.5D APPLY AND Univers Lactate 12 Lactate 12 1-14 TORRE RUB IN A ity of % External % External 00:00: M.D. THIN FILM [place] Cream Cream 00 TO [facility]ici AFFECTED ans AREAS TWICE DAILY.(AM AND PM). Levofloxaci 2018-08 Yes 750 mg = 1 Memoria n 750 MG tab, PO, l Oral Tablet 23:41: Q24H, X 10 Wyatt [Levaquin] 00 day, # 10 tab, 0 Refill(s), Pharmacy: [id number] sugammadex 2018-08 No Notes: Memor ia (Same as: l 20:58: Bridion) ondansetron 2018-08 No Route: IV, Memoria (ANES) Drug form: l 20:54: INJ, ONCE, Stop date: 08/29/19 14:54:00 AUDIOLOGY ASSISTANT sugammadex 2018-08 No Route: IV, M emoria (ANES) Drug form: l 20:54: SOLN, Wyatt 00 ONCE, Stop date: 08/29/19 14:54:00 AUDIOLOGY ASSISTANT phenylephri 2018-08 No Route: IV, Memoria ne (ANES) Drug form: l 19:59: INJ, ONCE, Stop date: 08/29/19 13:59:00 AUDIOLOGY ASSISTANT metoclopram 2018-08 No Route: IV, Memoria yaron (ANES) Drug form: l 19:59: INJ, ONCE, Matthews 00 Stop date: 08/29/19 13:59:00 AUDIOLOGY ASSISTANT rocuronium 2018-08 No Route: IV, M emoria (ANES) Drug form: l 19:59: INJ, ONCE, Matthews 00 Stop date: 08/29/19 13:59:00 AUDIOLOGY ASSISTANT fentaNYL 2018-08 No Route: IV, Mem oria (ANES) Drug form: l 19:59: INJ, ONCE, Wyatt 00 Stop date: 08/29/19 13:59:00 AUDIOLOGY ASSISTANT dexamethaso 2018-08 No Route: IV, Memoria ne (ANES) 2- Drug form: l 19:59: INJ, ONCE, Wyatt 00 Stop date: 08/29/19 13:59:00 AUDIOLOGY ASSISTANT midazolam 2018-08 No Route: IV, Me moria (ANES) 2- Drug form: l 19:53: SOLN, Wyatt ONCE, Stop date: 08/29/19 13:53:00 AUDIOLOGY ASSISTANT lidocaine 2018-08 No Route: IV, Me moria (ANES) 2- Drug form: l 19:53: INJ, ONCE, Stop date: 08/29/19 13:53:00 AUDIOLOGY ASSISTANT propofol 2018-08 No Route: IV, Mem oria (ANES) 2- Drug form: l 19:53: INJ, ONCE, Stop date: 08/29/19 13:53:00 AUDIOLOGY ASSISTANT Fentanyl 2018-08 No Notes: Memoria 2- (Same as: l 19:28: Sublimaze) Preservat catalina free. Hydromorpho 2018-08 No Notes: Tj boris ne 2- Same as l 19:28: Dilaudid Flumazenil 2018-08 No Notes: Memor ia 2- (Same as: l 19:28: Romazicon) Naloxone 2018-08 No Notes: Memoria 2-31 Same as l 19:28: Narcan Ondansetron 2018-08 No Notes: Tj boris 2-31 (Same as: l 19:28: Zofran) MEDICATION WASTE Product Size: 4 mg Product Wasted: ___ mg Isolyte S 2018-08 No Route: IV, Me moria PH 7.4 2- Total l (ANES) 1000 18:50: Volume: Her quiles mL 00 1,000, Start date: 08/29/19 12:50:00 AUDIOLOGY ASSISTANT, Stop date: 08/29/19 13:50:00 AUDIOLOGY ASSISTANT multivitami 2018-08 No Notes: Tj boris n 2-31 (Same l 15:00: as:Thera) WASTE: F/P - Black; E - Municipal Trash Bin Take with food. Calcium 2018-08 No 500 mL, Memoria Chloride 500 ml/hr, l 0.0014 13:15: Infuse Wyatt MEQ/ML / 00 Over: 1 Potassium hr, Route: Chloride IV, 500, 0.004 Drug form: MEQ/ML / INJ, ONCE, Sodium Priority: Chloride STAT, 0.103 Dosing MEQ/ML / Weight Sodium 81.8 kg, Lactate Start 0.028 date: MEQ/ML 08/29/19 Injectable 7:15:00 Solution AUDIOLOGY ASSISTANT, Stop date: 08/29/19 7:15:00 AUDIOLOGY ASSISTANT, 0 Magnesium 2018-08 No Notes: Memori a Sulfate WASTE: F/P l 13:14: - Sink; E Matthews - Municipal Trash Bin Yash 2018-08 No Notes: Memoria packet (Same as: l 22:30: Yash [place]) Hydromorpho 2018-08 No Notes: Tj boris ne Same as l 20:31: Dilaudid Matthews sennosides, 2018-08 No Notes: Tj boris [facility] (Same as: l 03:00: Senokot) Matthews Acetaminoph 2018-08 No Notes: Max Memoria en - acetaminop l 17:00: hen 4000 Matthews 00 mg/day (4 gm/day). (Same as: Tylenol Extra Strength) Oxycodone 2018-08 No Notes: Memori a Hydrochlori 10-27 (Same as: l de 5 MG 16:02: Roxicodone Herm carina Oral Tablet ) Hydromorpho 2018-08 No Notes: Tj boris ne - Same as l 16:02: Dilaudid [place] Ondansetron 2018-08 No 4 mg, Memor ia 10-27 Route: l 16:02: IVP, Q8H, Wyatt 00 Dosing Weight 81.8, kg, PRN Nausea & Vomiting, Start date: 08/26/19 10:02:00 AUDIOLOGY ASSISTANT, Duration: 30 day, Stop date: 09/25/19 10:01:00 AUDIOLOGY ASSISTANT Acetaminoph 2018-08 No Notes: Max Memoria en 2-28 acetaminop l 16:00: hen 4000 Wyatt 00 mg/day (4 gm/day). (Same as: Tylenol Extra Strength) Tramadol 2018-08 No 50 mg, Memoria 2- Route: PO, l 15:34: Drug form: Wyatt 00 TAB, Q6H, Dosing Weight 81.8, kg, PRN Pain Score 4-6, Start date: 08/26/19 9:34:00 AUDIOLOGY ASSISTANT, Duration: 5 day, Stop date: 08/31/19 9:33:00 AUDIOLOGY ASSISTANT Hydromorpho 2018-08 No Notes: Tj boris ne 2- Same as l 15:34: Dilaudid Ondansetron 2018-08 No Notes: Tj boris 2-28 (Same as: l 15:34: Zofran) MEDICATION WASTE Product Size: 4 mg Product Wasted: ___ mg Melatonin 2018-08 No Notes: Memori a -28 (Same as: l 15:34: Melatonin) Amlodipine 2018-08 No Notes: Memor ia - (Same as: l 15:00: Norvasc) Dilaudid 2018-08 No Notes: Memoria -28 (Same as: l 13:23: Dilaudid) ketOROLAC 2018-08 No 4 days Memor ia - l 10:22: MEDICATION WASTE Product Size: 30 mg Product Wasted: ___ mg Acetaminoph 2018-08 No 1,000 mg, M emoria en 10-27 Route: PO, l 04:34: Drug form: Wyatt 00 TAB, ONCE, Dosing Weight 81.818, kg, PRN Pain Score 1-3, Start date: 08/25/19 22:34:00 AUDIOLOGY ASSISTANT Ibuprofen 2018-08 No 600 mg, Memor ia 10-27 Route: PO, l 04:34: Drug form: Wyatt 00 TAB, Q6H, Dosing Weight 81.818, kg, PRN Pain Score 1-3, Start date: 08/25/19 22:34:00 AUDIOLOGY ASSISTANT, Duration: 30 day, Stop date: 09/24/19 22:33:00 AUDIOLOGY ASSISTANT Oxycodone 2018-08 No 5 mg, Memoria Hydrochlori 10-27 Route: PO, l de 5 MG 04:34: Drug form: Herm carina Oral Tablet 00 TAB, Q4H, Dosing Weight 81.818, kg, PRN Pain Score 4-6, Start date: 08/25/19 22:34:00 AUDIOLOGY ASSISTANT, Duration: 30 day, Stop date: 09/24/19 22:33:00 AUDIOLOGY ASSISTANT Hydromorpho 2018-08 No 0.5 mg, Mem oria ne 2 Route: l 04:34: IVP, Matthews 00 Q5Min, Dosing Weight 81.818, kg, PRN Pain Score 7-10, Start date: 08/25/19 22:34:00 AUDIOLOGY ASSISTANT, Duration: 4 doses or times, Stop date: Limited # of times Flumazenil 2018-08 No 0.2 mg, Tj boris 228 Route: l 04:34: IVP, PRN, Matthews Dosing Weight 81.818, kg, PRN Benzodiaze pine Reversal, Initial dose, Start date: 08/25/19 22:34:00 AUDIOLOGY ASSISTANT, Duration: 30 day, Stop date: 09/24/19 22:33:00 AUDIOLOGY ASSISTANT Naloxone 2018-08 No 0.4 mg, Memori a 10-27 Route: l 04:34: IVP, Matthews 00 Q2MIN, Dosing Weight 81.818, kg, PRN Narcotic Reversal, Start date: 08/25/19 22:34:00 AUDIOLOGY ASSISTANT, Duration: 8 doses or times, Stop date: Limited # of times Ondansetron 2018-08 No 4 mg, Memor ia - Route: l 04:34: IVP, ONCE, Dosing Weight 81.818, kg, PRN Nausea & Vomiting, Start date: 08/25/19 22:34:00 AUDIOLOGY ASSISTANT Dexamethaso 2018-08 No 4 mg, Memor ia ne -28 Route: l 04:34: IVP, ONCE, Dosing Weight 81.818, kg, PRN Nausea & Vomiting, Start date: 08/25/19 22:34:00 AUDIOLOGY ASSISTANT Ambien 2018-08 No Notes: Memoria 2-28 (Same As: l 04:15: Ambien) Wyatt 00 Isolyte S 2018-08 No Route: IV, Me moria PH-7.4 2-28 ONCE, l (Bolus) IV 03:58: Dosing Radha nn 00 Weight 81.818 kg, Start date: 12/27/19 21:58:00 AUDIOLOGY ASSISTANT, Stop date: 08/25/19 21:58:00 AUDIOLOGY ASSISTANT Benzocaine 2018-08 No Notes: Memor ia 15 MG / -28 Cepacol l Menthol 3.6 03:07: lozenges He rmann MG Lozenge 00 Dispense 1 [Cepacol box = 16 Sore Throat lozenges Pain Relief (Same As: 15/3.6] Cepacol Lozenges) heparin 2018-08 No Notes: Memoria -28 porcine l 03:00: heparin Wyatt 00 linezolid 2018-08 No Notes: Memori a -28 Protect l 01:00: from light. (Same as: Zyvox) Isolyte S 2018-08 No 500 mL, Memor ia PH-7.4 10-27 Route: IV, l (Bolus) IV 00:25: ONCE, Rashid n 00 Dosing Weight 81.818 kg, Start date: 08/25/19 18:25:00 AUDIOLOGY ASSISTANT, Stop date: 08/25/19 18:25:00 AUDIOLOGY ASSISTANT ketOROLAC 2018-08 No IV, ONCE Tj boris (ANES) 10-26 l 23:36: labetalol 2018-08 No Route: IV, Me moria (ANES) 10-26 Drug form: l 23:36: INJ, ONCE, Stop date: 08/25/19 17:36:00 AUDIOLOGY ASSISTANT hydromorpho 2018-08 No Route: IV, Memoria ne (ANES) 10-26 Drug form: l 23:36: INJ, ONCE, Stop date: 08/25/19 17:36:00 AUDIOLOGY ASSISTANT ondansetron 2018-08 No Route: IV, Memoria (ANES) 10-26 Drug form: l 23:35: INJ, ONCE, Stop date: 08/25/19 17:35:00 AUDIOLOGY ASSISTANT sugammadex 2018-08 No Route: IV, M emoria (ANES) 10-26 Drug form: l 23:35: SOLN, Wyatt 00 ONCE, Stop date: 08/25/19 17:35:00 AUDIOLOGY ASSISTANT sugammadex 2018-08 No Notes: Memor ia 10-26 (Same as: l 23:00: Bridion) dexamethaso 2018-08 No Route: IV, Memoria ne (ANES) - Drug form: l 22:40: INJ, ONCE, Stop date: 08/25/19 16:40:00 AUDIOLOGY ASSISTANT midazolam 2018-08 No Route: IV, Me moria (ANES) 10-26 Drug form: l 22:24: SOLN, Wyatt 00 ONCE, Stop date: 08/25/19 16:24:00 AUDIOLOGY ASSISTANT lidocaine 2018-08 No Route: IV, Me moria (ANES) 2- Drug form: l 22:24: INJ, ONCE, Stop date: 08/25/19 16:24:00 AUDIOLOGY ASSISTANT propofol 2018-08 No Route: IV, Mem oria (ANES) - Drug form: l 22:24: INJ, ONCE, Stop date: 08/25/19 16:24:00 AUDIOLOGY ASSISTANT rocuronium 2018-08 No Route: IV, M emoria (ANES) 10-26 Drug form: l 22:24: INJ, ONCE, Stop date: 08/25/19 16:24:00 AUDIOLOGY ASSISTANT fentaNYL 2018-08 No Route: IV, Mem oria (ANES) 10-26 Drug form: l 22:24: INJ, ONCE, Stop date: 08/25/19 16:24:00 AUDIOLOGY ASSISTANT heparin 2018-08 No Notes: Memoria sodium, - porcine l porcine 22:00: heparin Wyatt 2500 UNT/ML 00 Injectable Solution meropenem 2018-08 No Notes: Memori a 2- (Same as: l 22:00: Merrem) . Wyatt 00 MEDICATION WASTE Product Size: 1000 mg Product Wasted: ___ mg Lactated 2018-08 No Route: IV, Mem oria Ringers 2- Total l Injection 21:15: Volume: Radha nn IV (ANES) 00 1,000, 1000 mL Start date: 08/25/19 15:15:00 AUDIOLOGY ASSISTANT, Stop date: 08/25/19 16:15:00 AUDIOLOGY ASSISTANT potassium 2018-08 No Notes: Memori a chloride 2-27 (Same as: l 20:00: KCL) Infuse no faster than 10 mEq/hr if given peripheral ly. Dilaudid 2018-08 No Notes: Memoria 10-26 Same as l 19:21: Dilaudid Potassium 2018-08 No 40 mEq, Memor ia Chloride 10-26 Route: l 19:06: IVPB, ONCE, Dosing Weight 81.818, kg, Start date: 08/25/19 13:06:00 AUDIOLOGY ASSISTANT, Stop date: 08/25/19 13:06:00 AUDIOLOGY ASSISTANT Docusate 2018-08 No Notes: Memoria 10-26 (Same as: l 15:00: Colace) (Do Not Crush) POLYETHYLEN 2018-08 No Notes: Tj boris E GLYCOL 10-26 Dissolve l 3350 15:00: in 8 oz of water or juice. (Same as: Miralax) Dilaudid 2018-08 No 0.5 mg, Memori a 10-26 Route: l 14:55: IVP, ONCE, Dosing Weight 81.818, kg, Priority: STAT, Start date: 08/25/19 8:55:00 AUDIOLOGY ASSISTANT, Stop date: 08/25/19 8:55:00 AUDIOLOGY ASSISTANT Dextrose 2018-08 No 12.5 gm, Memor ia 50% Syringe 10-26 25 mL, l (D50W) 14:31: Route: IVP, Drug Form: INJ, Dosing Weight 81.818, kg, PRN, PRN Blood Glucose Results, Start date: 08/25/19 8:31:00 AUDIOLOGY ASSISTANT, Duration: 30 day, Stop date: 09/24/19 8:30:00 AUDIOLOGY ASSISTANT, 0 Glucagon 2018-08 No 1 mg, Memoria 10-26 Route: IM, l 14:31: Drug form: PDR/INJ, PRN, Dosing Weight 81.818, kg, PRN Blood Glucose Results, Start date: 08/25/19 8:31:00 AUDIOLOGY ASSISTANT, Duration: 30 day, Stop date: 09/24/19 8:30:00 AUDIOLOGY ASSISTANT, 0 Ondansetron 2018-08 No Notes: Tj boris - (Same as: l 14:31: Zofran) MEDICATION WASTE Product Size: 4 mg Product Wasted: ___ mg Dextrose 5% 2018-08 No 1,000 mL, M emoria with 0.45% 2-27 Rate: 40 l NaCl IV 14:22: ml/hr, Wyatt 1000 mL 00 Infuse over: 25 hr, Route: IV, Dosing Weight 81.818 kg, Total Volume: 1,000, Start date: 08/25/19 8:22:00 AUDIOLOGY ASSISTANT, Duration: 30 day, Stop date: 09/24/19 8:21:00 AUDIOLOGY ASSISTANT, 1.89, m2 Iohexol 2018-08 No 100 mL, Memoria 10-26 Route: l 09:58: IVP, Drug Form: SOLN, Dosing Weight 81.818, kg, ONCALL, STAT, Start date: 08/25/19 3:58:00 AUDIOLOGY ASSISTANT, Duration: 1 doses or times, Dose = 2.2ml/kg, Max dose = 100ml -- "To be infused by Radiology Staff ONLY" Zosyn 2018-08 No Notes: Memoria 10-26 (Same as: l 09:36: Zosyn) Dosing based on Piperacill in component MEDICATION WASTE Product Size: 3375 mg Product Wasted: ___ mg Calcium 2018-08 No 1,000 mL, Memor ia Chloride -27 1000 l 0.0014 09:30: ml/hr, MEQ/ML / 00 Infuse Potassium Over: 1 Chloride hr, Route: 0.004 IV, 1,000, MEQ/ML / Drug form: Sodium INJ, ONCE, Chloride Priority: 0.103 STAT, MEQ/ML / Dosing Sodium Weight Lactate 81.818 kg, 0.028 Start MEQ/ML date: Injectable 08/25/19 Solution 3:30:00 AUDIOLOGY ASSISTANT, Stop date: 08/25/19 3:30:00 AUDIOLOGY ASSISTANT, 0 Fentanyl 2018-08 No Notes: Memoria 10-26 (Same as: l 07:26: Sublimaze) Preservat catalina free. Dilaudid No Notes: Memoria 01-31 Same as l 08:04: Dilaudid Hydromorpho No 0.5 mg, Mem oria ne 01-31 Route: l 05:37: IVP, ONCE, Dosing Weight 63.273, kg, Priority: STAT, Start date: 01/31/19 0:37:00 CDT, Stop date: 01/31/19 0:37:00 CDT Acetaminoph No 1,000 mg, M emoria en 01-31 Route: PO, l 05:07: ONCE, Wyatt 00 Dosing Weight 63.273, kg, Start date: 01/31/19 0:07:00 CDT, Stop date: 01/31/19 0:07:00 CDT ketOROLAC No 15 mg, Memori a 15 mg/mL 01-31 Route: l injectable 05:06: IVP, Drug He rmann solution 00 form: INJ, ONCE, Dosing Weight 63.273, kg, Priority: STAT, Start date: 01/31/19 0:06:00 CDT, Stop date: 01/31/19 0:06:00 CDT Ferrous Ferrous Yes ZULEIKHA Q0.5D TAKE 1 [facility] Sulfate 325 Sulfate 325 5-29 TYEBJEE TABLET ity of (65 Fe) MG (65 Fe) MG 00:00: M.D. TWICE [place] Oral Tablet Oral Tablet 00 DAILY WITH [facility] MEALS. ans ketOROLAC No 4 days. Tj boris 15 mg/mL 01-23 l injectable 17:00: Wyatt solution 00 sennosides, No Notes: Tj boris [facility] - (Same as: l 02:00: Senokot) Melatonin No Notes: Memori a -27 (Same as: l 00:39: Melatonin) albuterol No Notes: SEE Me moria 5-26 RT l 16:00: DOCUMENTAT ION (Same as: Proventil) Pulmicort No Notes: Memori a Respules - (Same As: l 14:38: Pulmicort respule). Sertraline No Notes: Memor ia -26 (Same as: l 14:00: Zoloft) Matthews 00 Miralax No Notes: Memoria 5-26 Dissolve l 14:00: in 8 oz of water or juice. (Same as: Miralax) Minocycline No Notes: Tj boris -26 (Same l 14:00: as:Minocin ) No milk/antac ids/iron. Breo No 1 puff, Memoria Ellipta 200 5-26 Route: l mcg-25 14:00: INHALATION Radha nn mcg/inh 00 , Drug inhalation Form: powder PWDR, Dosing Weight 64.545, kg, Daily, Start date: 01/22/19 9:00:00 CDT, Duration: 30 day, Stop date: 02/20/19 9:00:00 CDT Fluconazole No Notes: Tj boris 5-26 (Same as: l 14:00: Diflucan) ferrous No Notes: Memoria sulfate 5-26 Give with l 14:00: food. "Do Not Crush" Amlodipine No Notes: Memor ia 5-26 (Same as: l 14:00: Norvasc) Docusate No Notes: Memoria 5-26 (Same as: l 14:00: Colace) (Do Not Crush) Tramadol No Notes: Not Mem oria 5-26 to exceed l 11:42: 400mg/day. (Same As: Ultram) Amoxicillin No Notes: Tj boris 875 MG / 5-26 With food. l Clavulanate 11:00: (Same as: H ermann 125 MG Oral 00 Augmentin Tablet 875) Benadryl No Notes: Memoria 5-26 (Same as: l 10:50: Benadryl) FeroSul 325 Yes TK 1 T PO M emoria mg oral 5-26 D l tablet 10:50: zolpidem 5 Yes TK 1 T PO Me moria mg oral 5-26 QHS l tablet 10:50: Amoxicillin Yes TK 1 T PO M emoria 875 MG / 5-26 Q 12 H l Clavulanate 10:50: Rashid n 125 MG Oral 00 Tablet fluconazole Yes TK 1 T PO M emoria 100 mg oral 5-26 Q 24 HOURS l tablet 10:50: minocycline Yes 100 mg = 1 Memoria 100 mg oral 5-26 cap, PO, l capsule 10:49: Q12H, # 20 Herm cap, 0 Refill(s) Acetaminoph No Notes: Do M emoria en 01-22 not exceed l 10:48: 4 gm/day. Matthews 00 (Same as: Tylenol) Bisacodyl No Notes: Memori a 01-22 (Same As: l 10:48: Dulcolax, Bisco-Lax) Ondansetron No Notes: Tj boris - (Same as: l 10:48: Zofran) MEDICATION WASTE Product Size: 4 mg Product Wasted: ___ mg Dextrose No 25 gm, 50 Tj boris 50% Syringe 5-26 mL, Route: l 10:48: IVP, Drug Form: INJ, Dosing Weight 64.545, kg, PRN, PRN Blood Glucose Results, Start date: 01/22/19 5:48:00 CDT, Duration: 30 day, Stop date: 02/21/19 5:47:00 CDT Glucagon No 1 mg, Memoria 01-22 Route: IM, l 10:48: Drug form: Wyatt PDR/INJ, PRN, Dosing Weight 64.545, kg, PRN Blood Glucose Results, Start date: 01/22/19 5:48:00 CDT, Duration: 30 day, Stop date: 02/21/19 5:47:00 CDT Ondansetron No Notes: Tj boris 01-22 (Same as: l 07:48: Zofran) MEDICATION WASTE Product Size: 4 mg Product Wasted: 0 mg Hydromorpho No Notes: Tj boris ne 01-22 Same as l 07:48: Dilaudid Docusate No 2 tab, Memoria Sodium 50 01-15 Route: PO, l MG / 22:00: Drug Form: Wyatt sennosides, 00 TAB, [facility] 8.6 MG Dosing Oral Tablet Weight 64.545, kg, BID, Start date: 01/15/19 17:00:00 CDT, Duration: 30 day, Stop date: 06/18/19 9:00:00 CDT Ondansetron Yes 4 mg = 1 Me moria 4 MG Oral 5-19 tab, PO, l Tablet 20:40: BID, # 10 Rashid n [Zofran] 15 tab, 0 Refill(s) tramadol Yes 100 mg = 2 Mem oria hydrochlori 5-19 tab, PO, l de 50 MG 20:39: Q6H, PRN Radha nn Oral Tablet 00 Pain Score 1-3, X 7 day, # 20 tab, 0 Refill(s) sennosides, Yes 17.2 mg = M emoria [facility] 8.6 MG 5-19 2 tab, PO, l Oral Tablet 20:39: BID, X 10 H ermann 00 day, # 40 tab, 0 Refill(s) Oxycodone Yes 5 mg = 1 Tj boris Hydrochlori 5-19 tab, PO, l de 5 MG 20:39: Q4H, PRN Rashid n Oral Tablet 00 Pain Score 4-6, 0 Refill(s) minocycline Yes 100 mg = 1 Memoria 100 mg oral 5-19 cap, PO, l capsule 20:39: [id number], X Herm carina 00 10 day, # 20 cap, 0 Refill(s) fluconazole Yes 100 mg = 1 Memoria 100 mg oral 5-19 tab, PO, l tablet 20:39: [id number], X Radha nn 00 14 day, # 14 tab, 0 Refill(s) Amoxicillin Yes 1 tab, PO, Memoria 875 MG / 5-19 [id number], l Clavulanate 20:39: Pediatric H ermann 125 MG Oral 00 Dosing, X Tablet 10 day, # 20 tab, 0 Refill(s) sertraline Yes 100 mg = 1 M emoria 100 mg oral 5-19 tab, PO, l tablet 20:39: BID, 0 00 Refill(s) Senokot No Notes: Memoria 5-19 (Same as: l 17:00: Senokot) Aspirin No Notes: Memoria 5-19 Take with l 14:00: food. Benadryl No Notes: Memoria 5-19 (Same as: l 14:00: Benadryl) Amlodipine No Notes: Memor ia 5-19 (Same as: l 14:00: Norvasc) potassium No Notes: Memori a chloride 5-19 (Same as: l 01:36: K-Dur 20) "Do Not Crush" Give with food and full glass of water For patients unable to swallow tablet, dissolve in one half glass of water. Allow about 2 minutes for the tablets to disintegra te. Stir before giving to prepare slurry and administer . Please exclude Patient s with feeding tube less than 14 [place] (Dobhoff, J-tube etc) and pediatric and patients. Sertraline No Notes: Memor ia 5-18 (Same as: l 22:00: Zoloft) Docusate No Notes: Memoria Sodium 100 5-18 (Same as: l MG Oral 22:00: Colace) (Do Not Crush) Miralax No Notes: Memoria 5-18 Dissolve l 22:00: in 8 oz of water or juice. (Same as: Miralax) albuterol No Notes: SEE Me moria 5-18 RT l 16:03: DOCUMENTAT ION (Same as: Proventil) albuterol No 2 puff, Memor ia 90 mcg/inh 5-18 Route: l inhalation 15:55: INHALATION H ermann aerosol , Dosing Weight 64.545, kg, QID, PRN Wheezing, Start date: 01/14/19 10:55:00 CDT, Duration: 30 day, Stop date: 02/13/19 10:54:00 CDT Zofran ODT No Notes: Memor ia 5-18 (Same as: l 15:43: Zofran ODT) Diflucan No Notes: Memoria 5-18 (Same as: l 15:00: Diflucan) Zofran No Notes: Memoria 5-18 (Same as: l 01:16: Zofran) MEDICATION WASTE Product Size: 4 mg Product Wasted: 0 mg Minocycline No Notes: Tj boris 5-17 (Same l 20:00: as:Minocin Matthews ) No milk/antac ids/iron. Acetaminoph No Notes: Do M emoria en 300 MG / 5-17 not exceed l Codeine 18:42: 4gm/day of Herm carina Phosphate 00 acetaminop 30 MG Oral hen. Tablet (Same as: [Tylenol Tylenol with with Codeine #3] Codeine # 3) Enoxaparin No Notes: Memor ia 5-17 (Same as: l 14:00: Lovenox) Matthews Amoxicillin No Notes: Tj boris / 5-17 With food. l Clavulanate 14:00: (Same as: H erm Augmentin 875) Saline No Notes: Memoria Flush 0.9% 5-17 (Same as: l 05:00: BD Wyatt Posiflush) Ambien No Notes: Memoria 5-17 (Same As: l 02:28: Ambien) Matthews 00 Oxycodone No Notes: Memori a Hydrochlori 5-17 (Same as: l de 5 MG 02:28: Roxicodone Herm carina Oral Tablet ) Famotidine No Notes: Memor ia 5-17 (Same as: l 02:00: Pepcid) Wyatt 00 Lidocaine No Notes: Memori a Hydrochlori 5-16 Preservati l de 10 MG/ML 23:00: ve free. He rmann Injectable 00 (Same as: Solution Xylocaine MPF) Acetaminoph No Notes: Do M emoria en 5-16 not exceed l 23:00: 4 gm/day. Matthews 00 (Same as: Tylenol) sugammadex No Notes: Memor ia 5-16 (Same as: l 23:00: Bridion) Matthews 00 Saline No Notes: Memoria Flush 0.9% 5-16 (Same as: l 22:12: BD Matthews 00 Posiflush) Docusate No Notes: Memoria Sodium 100 5-16 (Same as: l MG Oral 22:00: Colace) Wyatt Capsule 00 (Do Not Crush) fluconazole No Notes: Tj boris 5-16 (Same as: l 20:51: Diflucan) Fluconazole No Notes: Tj boris 5-16 (Same as: l 20:43: Diflucan) sugammadex No Route: IV, M emoria (ANES) 5-16 Drug form: l 20:02: SOLN, ONCE, Stop date: 01/12/19 15:02:00 CDT Ampicillin Yes Notes: Memor ia 5-16 (Same as: l 20:00: Principen) MEDICATION WASTE Product Size: 1000 mg Product Wasted: ___ mg Promethazin No Notes: Do M emoria e 5-16 not give l 19:48: IV push. (Same as: Phenergan) Ondansetron No Notes: Tj boris 5-16 (Same as: l 19:48: Zofran) MEDICATION WASTE Product Size: 4 mg Product Wasted: ___ mg Hydromorpho No Notes: Tj boris ne 5-16 Same as l 19:48: Dilaudid Calcium No 1,000 mL, Memor ia Chloride 5-16 Rate: 125 l 0.0014 19:48: ml/hr, MEQ/ML / 00 Infuse Potassium over: 8 Chloride hr, Route: 0.004 IV, Dosing MEQ/ML / Weight Sodium 64.545 kg, Chloride Total 0.103 Volume: MEQ/ML / 1,000, Sodium Start Lactate date: 0.028 01/12/19 MEQ/ML 14:48:00 Injectable CDT, Solution Duration: 30 day, Stop date: 02/11/19 14:47:00 CDT, 1.72, m2 tramadol No Notes: Not Mem oria hydrochlori 5-16 to exceed l de 50 MG 19:33: 400mg/day. Her quiles Oral Tablet 00 (Same As: Ultram) acetaminoph No Route: IV, Memoria en (ANES) 5-16 Drug form: l 18:20: INJ, ONCE, Stop date: 01/12/19 13:20:00 CDT propofol No Route: IV, Mem oria (ANES) 10 5-16 Drug form: l mg 17:49: INJ, Start date: 01/12/19 12:49:00 CDT, Stop date: 01/12/19 13:49:00 CDT ondansetron No Route: IV, Memoria (ANES) 5-16 Drug form: l 17:44: INJ, ONCE, Stop date: 01/12/19 12:44:00 CDT sodium No Route: PO, Memor ia citrate 5-16 Drug Form: l (ANES) 17:39: INJ, ONCE, Stop date: 01/12/19 12:39:00 CDT hydromorpho No Route: IV, Memoria ne (ANES) 5-16 Drug form: l 17:39: INJ, ONCE, Stop date: 01/12/19 12:39:00 CDT Ondansetron No Notes: Tj boris 5-16 (Same as: l 17:37: Zofran) MEDICATION WASTE Product Size: 4 mg Product Wasted: ___ mg Promethazin No Notes: Do M emoria e 5-16 not give l 17:37: IV push. (Same as: Phenergan) Hydralazine No Notes: Tj boris 5-16 (Same as: l 17:37: Apresoline ) Push over 5 minutes Metoprolol No Notes: Memor ia 5-16 (Same as: l 17:37: Lopressor) Push over 2 minutes Albuterol No Notes: SEE Me moria 0.83 MG/ML 5-16 RT l Inhalant 17:37: DOCUMENTAT Her quiles Solution 00 ION (Same as: Proventil) Diphenhydra No Notes: Tj boris mine 5-16 (Same as: l 17:37: Benadryl) Naloxone No Notes: Memoria 5-16 Same as l 17:37: Narcan Flumazenil No Notes: Memor ia 5-16 (Same as: l 17:37: Romazicon) Oxycodone No Notes: Memori a 5-16 (Same as: l 17:37: Roxicodone ) Hydromorpho No Notes: Tj boris ne 5-16 Same as l 17:37: Dilaudid fluconazole No Route: IV, Memoria (ANES) 2 mg 5-16 Drug form: l 16:56: INJ, Start date: 01/12/19 11:56:00 CDT, Stop date: 01/12/19 12:56:00 CDT tobramycin No Route: IV, M emoria (ANES) 40 5-16 Drug form: l mg 16:52: INJ, Start date: 01/12/19 11:52:00 CDT, Stop date: 01/12/19 12:52:00 CDT ampicillin No Route: IV, M emoria (ANES) 1000 5-16 Drug form: l mg 16:50: INJ, Start date: 01/12/19 11:50:00 CDT, Stop date: 01/12/19 12:50:00 CDT Lactated No Route: IV, Mem oria Ringers 5-16 Total l Injection 16:50: Volume: Radha nn IV (ANES) 00 500, Start 500 mL date: 01/12/19 11:50:00 CDT, Stop date: 01/12/19 12:50:00 CDT famotidine No Route: IV, M emoria (ANES) 5-16 Drug form: l 16:18: INJ, ONCE, Wyatt Stop date: 01/12/19 11:18:00 CDT alfentanil No Route: IV, M emoria (ANES) + 5-16 Drug form: l Sodium 16:18: INJ, ONCE, Radha nn Chloride Stop date: 0.9% IV 01/12/19 (ANES) 100 11:18:00 mL CDT dexamethaso No Route: IV, Memoria ne (ANES) 5-16 Drug form: l 16:13: INJ, ONCE, Stop date: 01/12/19 11:13:00 CDT midazolam 2019-0 No Route: IV, Me moria (ANES) 5-16 Drug form: l 16:07: SOLN, Matthews 00 ONCE, Stop date: 01/12/19 11:07:00 CDT propofol 2019-0 No Route: IV, Mem oria (ANES) 5-16 Drug form: l 16:07: INJ, ONCE, Stop date: 01/12/19 11:07:00 CDT lidocaine 2019-0 No Route: IV, Me moria (ANES) 5-16 Drug form: l 16:07: INJ, ONCE, Stop date: 01/12/19 11:07:00 CDT rocuronium 2019-0 No Route: IV, M emoria (ANES) 5-16 Drug form: l 16:07: INJ, ONCE, Stop date: 01/12/19 11:07:00 CDT fentaNYL 2019-0 No Route: IV, Mem oria (ANES) 5-16 Drug form: l 16:07: INJ, ONCE, Stop date: 01/12/19 11:07:00 CDT Lactated 2019-0 No Route: IV, Mem oria Ringers 5-16 Total l Injection 14:23: Volume: Radha nn IV (ANES) 00 1,000, 1000 mL Start date: 01/12/19 9:23:00 CDT, Stop date: 01/12/19 10:23:00 CDT Mirena 2018-0 No Notes: Memoria 5-16 Same as l 13:05: Mirena Benadryl 2019-0 Yes 25 mg, PO, Mem oria 5-10 BID, 0 l 18:21: Refill(s) amoxicillin 2018-0 No 500 mg = 1 Memoria 500 mg oral 5-10 tab, PO, l tablet 17:59: BID, 0 Refill(s) Amoxicillin 2018-0 No 0 Memori a 5-10 Refill(s) l 17:59: sertraline 2018-0 No 100 mg = 1 M emoria 100 mg oral 5-10 tab, PO, l tablet 17:59: BID, 0 Matthews 00 Refill(s) Aspirin Yes 325 mg, Memoria 5-10 PO, BID, 0 l 17:59: Refill(s) Miralax Yes 17 gm, PO, Tj boris 5-10 BID, 0 l 17:59: Refill(s) Xarelto Yes See Memoria 5-10 Instructio l 17:59: ns, Matthews 00 MEDICATION HAS BEEN STOPPED., 0 Refill(s) Unknown Yes PO, Daily, Tj boris Home 5-10 BOOST l Medication 17:59: SUPPLEMENT H ermann EVERY MORNING., Refill(s) 0 Mirena No 1 ea, Memoria 5-10 Route: l 00:25: Intrautera 00 l, ONCE, Dosing Weight 66.506, kg, Start date: 01/05/19 19:25:00 CDT, Stop date: 01/05/19 19:25:00 CDT Ondansetron Ondansetron Yes IVETTE 1 Q12H TAKE 1 [facility] HCl - 4 MG HCl - 4 MG 5-08 [employer] TABLET ity of Oral Tablet Oral Tablet 00:00: Every 00 twelve Physici hours ans amLODIPine amLODIPine Yes BANDAR TAKE 1 [facility] Besylate 5 Besylate 5 4-26 HERMILO TABLET BY ity of MG Oral MG Oral 00:00: M.D. MOUTH [place] Tablet Tablet 00 EVERY DAY Physic i ans Zolpidem Zolpidem Yes VERONA 1 QD TAKE 1 Un leana Tartrate 5 Tartrate 5 4-26 TORRE TABLET ity of MG Oral MG Oral 00:00: M.D. DAILY [place] Tablet Tablet 00 Physici ans polyethylen Yes 17 gm, PO, Memoria e glycol 4-22 Daily, X 7 l 3350 oral 15:56: day, # 12 Her quiles powder for 00 ea, 0 reconstitut Refill(s) ion nitrofurant Yes 100 mg = 1 Memoria oin 4-22 cap, PO, l macrocrysta 15:56: [id number], X Wyatt ls-monohydr 00 5 day, # ate 100 mg 10 cap, 0 oral Refill(s) capsule (Macrobid) ferrous Yes 325 mg = 1 Tj boris sulfate 325 4-22 tab, PO, l mg oral 15:56: Daily, # Rashid n enteric 00 30 tab, 0 coated Refill(s) tablet Docusate Yes 100 mg = 1 Mem oria Sodium 100 4-22 cap, PO, l MG Oral 15:56: BID, # 28 Radha nn Capsule 00 cap, 0 Refill(s) ciprofloxac Yes 500 mg = 1 Memoria in 500 mg 4-22 tab, PO, l oral tablet 15:56: Q12H, X 5 H ermann day, # 10 tab, 0 Refill(s) Ondansetron Yes 4 mg = 1 Me moria 4 MG Oral 4-22 tab, PO, l Tablet 15:56: BID, # 10 Rashid n [Zofran] 00 tab, 0 Refill(s) molasses No Notes: Memoria 4-21 (Same l 15:32: as:Molasse Wyatt s) Cipro No Notes: May Memori a 4-21 interfere l 11:00: w/enteral Matthews 00 feedings - Take 1 hr before or 2 hrs after antacids, dairy pdt & minerals. On empty stomach. Miralax No Notes: Memoria 4-20 Dissolve l 14:30: in 8 oz of Matthews 00 water or juice. (Same as: Miralax) Zofran No Notes: Memoria 4-20 (Same as: l 14:26: Zofran) Matthews MEDICATION WASTE Product Size: 4 mg Product Wasted: ___ mg Zofran No Notes: Memoria 4-20 (Same as: l 14:00: Zofran) Wyatt MEDICATION WASTE Product Size: 4 mg Product Wasted: ___ mg Macrobid No Notes: Not Mem oria 4-20 recommende l 13:00: d for Matthews 00 patients with CrCl<30 ml/min (Same as:Macrobi d) With food. Zofran No Notes: Memoria 4-19 (Same as: l 16:01: Zofran) MEDICATION WASTE Product Size: 4 mg Product Wasted: ___ mg Zofran ODT No Notes: Memor ia 4-19 (Same as: l 14:57: Zofran ODT) sennosides, No Notes: Tj boris [facility] 4-19 (Same as: l 02:00: Senokot) amLODIPine Yes 5 mg = 1 Mem oria 5 mg oral 4-18 tab, PO, l tablet 15:38: Daily, 0 Matthews 00 Refill(s) Breo Yes 1 puff, Memoria Ellipta 200 4-18 INHALATION l mcg-25 15:38: , Daily, 0 Radha nn mcg/inh 00 Refill(s) inhalation powder sertraline Yes 150 mg = Mem oria 100 mg oral 4-18 1.5 tab, l tablet 15:38: PO, Daily, Radha nn 00 # 135 tab, 0 Refill(s) Zolpidem Yes 5 mg = 1 Memor ia tartrate 5 4-18 tab, PO, l MG Oral 15:38: Bedtime, # Herm carina Tablet 00 30 tab, 0 [Ambien] Refill(s) Ambien No Notes: Memoria 4-18 (Same As: l 15:04: Ambien) Calcium No 1,000 mL, Memor ia Chloride 4-18 1,000 l 0.0014 14:15: ml/hr, Wyatt MEQ/ML / 00 Infuse Potassium Over: 1 Chloride hr, Route: 0.004 IV, 1,000, MEQ/ML / Drug form: Sodium INJ, ONCE, Chloride Priority: 0.103 STAT, MEQ/ML / Dosing Sodium Weight Lactate 66.506 kg, 0.028 Start MEQ/ML date: Injectable 12/15/18 Solution 9:15:00 CDT, Stop date: 12/15/18 9:15:00 CDT ferrous No Notes: Memoria sulfate 4-18 Give with l 14:00: food. "Do Not Crush" Docusate No Notes: Memoria 4-18 (Same as: l 14:00: Colace) Ywatt 00 (Do Not Crush) Tylenol No Notes: Do Memor ia 12-14 not exceed l 23:00: 4 gm/day. (Same as: Tylenol) tramadol No Notes: Not Mem oria hydrochlori 12-14 to exceed l de 50 MG 21:21: 400mg/day. Her quiles Oral Tablet (Same As: Ultram) Hydromorpho No Notes: Tj boris ne 12-14 Same as l 16:53: Dilaudid Midazolam No 1 mg, Memoria 12-14 Route: IV, l 16:34: ONCE, Dosing Weight 66.506, kg, Start date: 12/14/18 11:34:00 CDT, Stop date: 12/14/18 11:34:00 CDT, Fentanyl No 50 Memoria 4-17 microgram, l 16:34: Route: IV, ONCE, Dosing Weight 66.506, kg, Start date: 12/14/18 11:34:00 CDT, Stop date: 12/14/18 11:34:00 CDT, Fentanyl No 50 Memoria 4-17 microgram, l 16:29: Route: IV, ONCE, Dosing Weight 66.506, kg, Start date: 12/14/18 11:29:00 CDT, Stop date: 12/14/18 11:29:00 CDT, Ondansetron 2018-0 No 4 mg, Memor ia 17 Route: IV, l 16:29: ONCE, Dosing Weight 66.506, kg, Start date: 12/14/18 11:29:00 CDT, Stop date: 12/14/18 11:29:00 CDT, Rocephin No 1 gm, Memoria 12-14 Route: IV, l 16:29: ONCE, Dosing Weight 66.506, kg, Start date: 12/14/18 11:29:00 CDT, Stop date: 12/14/18 11:29:00 CDT, , ABX Indication : Surgical Prophylaxi s Midazolam No 1 mg, Memoria 12-14 Route: IV, l 16:29: ONCE, Dosing Weight 66.506, kg, Start date: 12/14/18 11:29:00 CDT, Stop date: 12/14/18 11:29:00 CDT, Sertraline 2018-0 No Notes: Memor ia - (Same as: l 14:00: Zoloft) Ceftriaxone 2018-0 No Notes: Tj boris 12-14 (Same As: l 11:00: Rocephin). Use with 100 mL NS and infuse over 30 min MEDICATION WASTE Product Size: 1000 mg Product Wasted: ___ mg Dilaudid 0 No Notes: Memoria -17 Same as l 10:55: Dilaudid Lovenox 2019-0 No Notes: Memoria 4-17 (Same as: l 09:25: Lovenox) Melatonin 2018-0 No Notes: Memori a 4-17 (Same as: l 09:24: Melatonin) Glucagon 2018-0 No 1 mg, Memoria 4-17 Route: IM, l 09:24: Drug form: PDR/INJ, PRN, Dosing Weight 64.545, kg, PRN Blood Glucose Results, Start date: 12/14/18 4:24:00 CDT, Duration: 30 day, Stop date: 01/13/19 4:23:00 CDT Dextrose 2018-0 No 25 gm, 50 Tj boris 50% Syringe 4-17 mL, Route: l 09:24: IVP, Drug Form: INJ, Dosing Weight 64.545, kg, PRN, PRN Blood Glucose Results, Start date: 12/14/18 4:24:00 CDT, Duration: 30 day, Stop date: 01/13/19 4:23:00 CDT Hydromorpho 2018-0 No 0.5 mg, Mem oria ne -17 Route: l 07:51: IVP, ONCE, Dosing Weight 64.545, kg, Priority: STAT, Start date: 12/14/18 2:51:00 CDT, Stop date: 12/14/18 2:51:00 CDT Sodium 2019-0 No 1,000 mL, Memori a Chloride -17 Rate: 75 l 0.9% IV 03:01: ml/hr, Wyatt 1,000 mL 00 Infuse over: 13.3 hr, Route: IV, Dosing Weight 64.545 kg, Total Volume: 1,000, Priority: STAT, Start date: 12/13/18 22:01:00 CDT, Duration: 1 doses or times, Stop date: 12/14/18 11:01:00 CDT, 1.68, m2 Dilaudid 2019-0 No 0.5 mg, Memori a 4-17 Route: l 02:56: IVP, ONCE, Dosing Weight 64.545, kg, Priority: STAT, Start date: 12/13/18 21:56:00 CDT, Stop date: 12/13/18 21:56:00 CDT Zofran 2019-0 No 4 mg, Memoria 4-17 Route: l 02:56: IVP, Drug form: INJ, ONCE, Dosing Weight 64.545, kg, Priority: STAT, Start date: 12/13/18 21:56:00 CDT, Stop date: 12/13/18 21:56:00 CDT Dilaudid 2019-0 No 0.5 mg, Memori a 17 Route: l 00:41: IVP, ONCE, Dosing Weight 64.545, kg, Priority: STAT, Start date: 12/13/18 19:41:00 CDT, Stop date: 12/13/18 19:41:00 CDT tamsulosin 2017-08 Yes .4mg QD Take [facility] ([facility] 0-31 capsule [facility] - 0.4 mg Cap 00:00: (0.4 mg Medi lacey 24 hr 00 total) by Center capsule mouth daily. HYDROcodone 2017-08 Yes 1{tbl} Take [address] -acetaminop 0-26 tablet by Cristhian carrasco (NORCO 09:38: mouth Medica l 10-325) 16 every 4 Center 10-325 mg (four) per tablet hours as needed for Pain. diphenhydrA 2017-08 Yes 25mg Take [address] [facility] MINE 0-26 by mouth [facility] - (BENADRYL) 09:38: every 6 Medi lacey 25 mg 15 (six) Center capsule hours as needed for Itching or Allergies. aluminum-ma 2017-08 Yes 10mL Take [address] [facility] gnesium 0-26 mLs by [facility] - hydroxide-s 09:38: mouth 4 Med ical imethicone 15 (four) Center (MAALOX times PLUS) daily suspension before 200-200-20 meals and mg/5 mL nightly. aspirin 325 2017-08 Yes 325mg QD Take [address] MG tablet 0-26 mg by [facility] - 09:38: mouth Medical 15 daily. Center ondansetron 2017-08 Yes 4mg Take [address] [facility] (ZOFRAN) 4 0-15 tablet (4 [facility] - MG tablet 00:00: mg total) Med ical 00 by mouth 3 Center (three) times daily as needed for Nausea. zolpidem 2017-08 Yes 5mg Take [address] [facility] (AMBIEN) 5 0-12 by mouth [facility] - MG tablet 22:09: every Medical 22 night as Center needed for Insomnia. polyethylen 2017-08 Yes 17g QD Take [address] e glycol 0-12 by mouth [facility] - (GLYCOLAX) 22:05: daily. Medic al 17 gram 33 Center packet sertraline 2017-08 Yes 100mg QD Take [address] (ZOLOFT) 0-12 mg by [facility] - 100 MG 22:05: mouth Medical tablet 33 nightly. Center amLODIPine 2017-08 Yes 5mg QD Take [address] [facility] [address] [facility] (NORVASC) 5 0-12 by mouth [facility] - MG tablet 22:05: daily. Medica l 32 Center rivaroxaban 2017-08 Yes Take by [facility] (XARELTO) 0-12 [facility] - 20 mg Tab 22:05: daily with Me dical tablet 32 dinner. Center albuterol 2017-08 Yes 1{puff} Inhale [address] HFA 0-12 puff by [facility] - (VENTOLIN 22:05: mouth via Med ical HFA) 90 32 inhaler Center mcg/actuati every 6 on inhaler (six) hours as needed for Wheezing. acetaminoph 2017-08 Yes 650mg Take [address] en 0-12 mg by [facility] - (TYLENOL) 22:05: mouth Medical 325 MG 32 every 6 Center tablet (six) hours as needed for Pain. Benadryl No Notes: Memoria 8-21 (Same as: l 19:36: Benadryl) Wyatt 00 Sodium No 250 mL, Memoria Chloride 04-19 Rate: To l 0.9% 14:46: prime line Matthews (titrate) 00 and flush 250 mL remaining blood products., Dosing Weight 74.091, kg, Route: IV, Total Volume: 250, Start Date: 04/19/18 9:46:00 CDT, Duration: 30 day, Stop date: 05/19/18 9:45:00 CDT, Replace Every: 24 hr meropenem Yes 500 mg, Memor ia 500 mg 8-20 IV, l intravenous 18:15: [id number], 0 H ermann injection 00 Refill(s) Amoxicillin No 1 tab, PO, Memoria 500 MG / 8-20 TID, X 7 l Clavulanate 18:15: day, # 21 H ermann 125 MG Oral 00 tab, 0 Tablet Refill(s), [Augmentin Pharmacy: 500-mg] [facility] [id number] Lidocaine No Notes: Memori a Hydrochlori 8-20 (Same as: l de 10 MG/ML 13:00: Xylocaine) Wyatt Injectable 00 Solution Saline No Notes: Memoria Flush 0.9% 8-20 (Same as: l 13:00: BD Wyatt 00 Posiflush) Saline No Notes: Memoria Flush 0.9% 8-20 (Same as: l 12:24: BD Matthews 00 Posiflush) Amoxicillin No Notes: Tj boris 500 MG / 8-20 With food. l Clavulanate 03:00: (Same as: H ermann 125 MG Oral 00 Augmentin Tablet 500) [Augmentin 500-mg] Saline No Notes: Memoria Flush 0.9% 8-19 (Same as: l 21:00: BD Wyatt 00 Posiflush) Lidocaine No Notes: Memori a Hydrochlori 8-19 (Same as: l de 10 MG/ML 19:00: Xylocaine) Wyatt Injectable 00 Solution Saline No Notes: Memoria Flush 0.9% 8-19 (Same as: l 18:19: BD Wyatt 00 Posiflush) meropenem No Notes: Memori a 8-18 Same as l 15:00: Merrem Matthews 00 MEDICATION WASTE Product Size: 500 mg Product Wasted: ___ mg Potassium No Notes: Memori a Chloride 8-18 (Same as: l 14:52: KCL) Wyatt 00 Infuse no faster than 10 mEq/hr if given peripheral ly. Potassium No Notes: Memori a Chloride 8-18 (Same as: l 1.33 MEQ/ML 13:10: Potassium H ermann Oral 00 Chloride) Solution albuterol No Notes: Memori a 90 mcg/inh 18 Albuterol l inhalation 02:15: 90 Wyatt aerosol 00 microgram/ inh 8gm HFA WASTE: Aerosol - Return to Pharmacy Same as: Ventolin, Proventil Ambien No Notes: Memoria 04-16 (Same As: l 01:54: Ambien) Matthews 00 Phenergan No Notes: Do Mem oria 04-16 not give l 00:56: IV push. Matthews 00 (Same as: Phenergan) Xarelto No Notes: Memoria 04-15 (Same as: l 22:00: Xarelto) Matthews 00 Administer with food Magnesium No Notes: Memori a Sulfate 04-15 WASTE: F/P l 19:38: - Sink; E Wyatt 00 - [facility] lidocaine No Notes: Memori a 04-15 (Same as: l 15:00: Xylocaine) Wyatt 00 lidocaine No Notes: Memori a 04-15 Preservati l 14:40: ve free. (Same as: Xylocaine MPF) Fentanyl No 50 Memoria 04-15 microgram, l 14:16: Route: IV, Matthews 00 ONCE, Dosing Weight 74.091, kg, Start date: 04/15/18 9:16:00 CDT, Stop date: 04/15/18 9:16:00 CDT Lidocaine No 2 %, Memoria 04-15 Route: l 14:16: SUB-Q, Wyatt 00 ONCE, Dosing Weight 74.091, kg, Start date: 04/15/18 9:16:00 CDT, Stop date: 04/15/18 9:16:00 CDT Heparin 40 No Pharmacy Mem oria unit/kg 04-14 To Manage, l Bolus 21:30: Route: Wyatt (Heparin 00 IVP, PRN, Dosing Drug form: Weight) INJ, PRN, Heparin Protocol, Start date: 04/14/18 16:30:00 CDT Stop date: 05/14/18 16:29:00 CDT, 30 day heparin No 500 mL, Memoria additive 04-14 Rate: l 25,000 unit 21:30: 26.67 Radha nn [18 00 ml/hr, unit/kg/hr] Infuse + Premix over: 18.7 Diluent hr, Route: Dextrose 5% IV, Dosing 500 mL Weight 74.091 kg, Total Volume: 500 mL, Start date: 04/14/18 16:30:00 CDT, Duration: 30 day, Stop date: 05/14/18 16:29:00 CDT, 1.8, m2 Heparin 80 No Pharmacy Mem oria unit/kg 04-14 To Manage, l Bolus 21:30: Route: Wyatt (Heparin 00 IVP, PRN, Dosing Drug form: Weight) INJ, PRN, Heparin Protocol, Start date: 04/14/18 16:30:00 CDT Stop date: 05/14/18 16:29:00 CDT, 30 day Xarelto No Notes: Memoria 04-14 (Same as: l 16:00: Xarelto) Wyatt Administer with food Mag-Ox 400 No Notes: Memor ia 04-14 (Same as: l 14:00: Mag-Ox Wyatt 00 400) Magnesium oxide 146zg=099o g elemental magnesium Dose=____m g magnesium oxide (___mg elemental magnesium) potassium No Notes: Memori a phosphate-s 04-14 (Same as: l odium 14:00: Phos-NaK) Matthews phosphate Each 1.5 gm pkt has 250mg phosphorou s. Mix w/2.5oz water and stir. potassium No 2 tab, Memori a phosphate 04-14 Route: PO, l 155 MG / 12:51: Dosing Wyatt Sodium 00 Weight Phosphate, 74.091, Dibasic 852 kg, ONCE, MG / Sodium Start Phosphate, date: Monobasic 04/14/18 130 MG Oral 7:51:00 Tablet CDT, Stop date: 04/14/18 7:51:00 CDT Lactated No 1,000 mL, Tj boris Ringers IV 04-13 Rate: 200 l 1,000 mL 22:07: ml/hr, Wyatt 00 Infuse over: 5 hr, Route: IV, Dosing Weight 74.091 kg, Total Volume: 1,000, Start date: 04/13/18 17:07:00 CDT, Duration: 30 day, Stop date: 05/13/18 17:06:00 CDT, 1.8, m2 Potassium No 40 mEq, Memor ia Chloride 8-15 Route: PO, l 21:01: Drug form: Matthews 00 ERTAB, PRN, Dosing Weight 74.091, kg, PRN Abnormal Lab Result, Electrolyt e replacemen t, Priority: NOW, Start date: 04/13/18 16:01:00 CDT, Duration: 7 day, Stop date: 04/20/18 16:00:00 CDT Maxipime + No Notes: Memor ia Sodium 8-15 (Same As: l Chloride 17:30: Maxipime) Herm carina 0.9% IV 50 00 Cefepime mL FOR IV SET ONLY MEDICATION WASTE Product Size: 1000 mg Product Wasted: _0__ mg Hydromorpho No Notes: Tj boris ne 8-15 Same as l 17:00: Dilaudid Lactated No 1,000 mL, Tj boris Ringers IV 8-15 Rate: 200 l 1,000 mL 15:02: ml/hr, Infuse over: 5 hr, Route: IV, Dosing Weight 74.091 kg, Total Volume: 1,000, Start date: 04/13/18 10:02:00 CDT, Duration: 1 doses or times, Stop date: 04/13/18 15:01:00 CDT, 1.8, m2 Zofran No Notes: Memoria 8-15 (Same as: l 14:07: Zofran) Wyatt 00 MEDICATION WASTE Product Size: 4 mg Product Wasted: ___0 mg sennosides, No Notes: Tj boris [facility] 8.6 MG 8-15 (Same as: l Oral Tablet 02:00: Senokot) He rmann 00 heparin No 5,000 Memoria sodium, 8-15 unit, l porcine 02:00: Route: Matthews 2500 UNT/ML 00 SUB-Q, Injectable Drug form: Solution INJ, Q12H, Dosing Weight 74.091, kg, Start date: 04/12/18 21:00:00 CDT, Duration: 30 day, Stop date: 05/12/18 9:00:00 CDT Lasix No 20 mg, Memoria 04-12 Route: l 14:35: IVP, Drug form: INJ, ONCE, Dosing Weight 74.091, kg, Priority: NOW, Start date: 04/12/18 9:35:00 CDT, Stop date: 04/12/18 9:35:00 CDT Miralax No Notes: Memoria 8-14 Dissolve l 14:00: in 8 oz of Matthews 00 water or juice. (Same as: Miralax) Docusate No Notes: Memoria - (Same as: l 14:00: Colace) Matthews 00 (Do Not Crush) linezolid No Notes: Memori a 04-12 (Same as: l 14:00: Zyvox) Wyatt 00 Calcium No Notes: Memoria Carbonate 04-12 (Same As: l 500 MG 11:45: Tums) Wyatt Calcium Tablet Carbonate 500 mg = 200 mg elemental calcium Dose = mg calcium carbonate ( mg elemental calcium) sodium No Notes: Memoria phosphate 04-12 Infuse l 11:45: over 4 Matthews 00 hour. Do not infuse phosphorou s concurrent ly in the same line as TPN or IVF that contains calcium. For double lumen central lines, phosphorou s may be infused in a separate lumen from TPN. Potassium No Notes: Memori a Chloride 04-12 (Same as: l 11:45: Potassium Chloride) Calcium No Notes: Memoria Gluconate 04-12 WASTE: F/P l 11:45: - Sink; E - [employer] Trash Bin Magnesium No Notes: Memori a Oxide 04-12 (Same as: l 11:45: Mag-Ox Matthews 00 400) Magnesium oxide [id number] g elemental magnesium Dose=____m g magnesium oxide (___mg elemental magnesium) potassium No Notes: Memori a phosphate 04-12 (Same as: l 11:45: K Phosphate. ) Do not infuse phosphorou s concurrent ly in the same line as TPN or IVF that contains calcium. For double lumen central lines, phosphorou s may be infused in a separate lumen from TPN. 1 mMol phoshate has 1.47 mEq potassium Infuse over 4 hours potassium No Notes: Memori a phosphate-s 04-12 (Same as: l odium 11:45: Phos-NaK) phosphate Each 1.5 250 mg-280 gm pkt has mg-160 mg 250mg oral powder phosphorou for s. Mix reconstitut w/2.5oz ion water and stir. Magnesium No Notes: Memori a Sulfate 04-12 (Same as: l 11:45: MgSO4) WASTE: F/P - Sink; E - [employer] Trash Bin MEDICATION WASTE Product Size: 1000 mg Product Wasted: ___ mg cefepime No 1 gm, Memoria 04-12 Route: IV, l 11:00: Q6H, Dosing Weight 74.091, kg, Start date: 04/12/18 6:00:00 CDT, Duration: 30 day, Stop date: 05/12/18 0:00:00 CDT, ABX Indication : Bacteremia Calcium No 1,000 mL, Memor ia Chloride 04-12 1,000 l 0.0014 09:11: ml/hr, MEQ/ML / 00 Infuse Potassium Over: 1 Chloride hr, Route: 0.004 IV, 1,000, MEQ/ML / Drug form: Sodium INJ, ONCE, Chloride Priority: 0.103 STAT, MEQ/ML / Dosing Sodium Weight Lactate 74.091 kg, 0.028 Start MEQ/ML date: Injectable 04/12/18 Solution 4:11:00 CDT, Stop date: 04/12/18 4:11:00 CDT linezolid No Notes: Memori a 04-12 (Same as: l 08:16: Zyvox) cefepime No Notes: Memoria 04-12 (Same As: l 08:16: Maxipime) MEDICATION WASTE Product Size: 1000 mg Product Wasted: ___ mg Tylenol No Notes: Do Memor ia 04-12 not exceed l 05:54: 4 gm/day. Matthews 00 (Same as: Tylenol) Dilaudid No Notes: Memoria 8-14 Same as l 05:54: Dilaudid Matthews 00 Heparin 40 No Route: Memor ia unit/kg 8-14 IVP, PRN, l Bolus 05:34: 2,300 Wyatt (Heparin 00 unit, 2.3 Dosing mL, Drug Weight) form: INJ, PRN, Heparin Protocol, Start date: 04/12/18 0:34:00 CDT Stop date: 05/12/18 0:33:00 CDT, 30 day heparin No Notes: Memoria additive 8-14 Total l 25,000 unit 05:34: Concentrat Matthews [18 00 ion = 50 unit/kg/hr] unit/ ml + Premix Total Diluent volume = Sodium 500 ml Chloride Send Med 0.45% 500 Request 2 mL hours prior to next bag Heparin - No 4,600 Memoria one time 8-14 unit, 4.6 l bolus for 05:34: mL, Route: He rmann DVT/PE 00 IVP, Drug form: INJ, ONCE, Dosing Weight 74.091, kg, Priority: STAT, Start date: 04/12/18 0:34:00 CDT, Stop date: 04/12/18 0:34:00 CDT Heparin 80 No Route: Memor ia unit/kg 8-14 IVP, PRN, l Bolus 05:34: 4,600 Matthews (Heparin 00 unit, 4.6 Dosing mL, Drug Weight) form: INJ, PRN, Heparin Protocol, Start date: 04/12/18 0:34:00 CDT Stop date: 05/12/18 0:33:00 CDT, 30 day Calcium No 2,000 mL, Memor ia Chloride 8-14 1,000 l 0.0014 05:32: ml/hr, Wyatt MEQ/ML / 00 Infuse Potassium Over: 2 Chloride hr, Route: 0.004 IV, 2,000, MEQ/ML / Drug form: Sodium INJ, ONCE, Chloride Priority: 0.103 STAT, MEQ/ML / Dosing Sodium Weight Lactate 74.091 kg, 0.028 Start MEQ/ML date: Injectable 04/12/18 Solution 0:32:00 CDT, Stop date: 04/12/18 0:32:00 CDT Benzocaine Yes AK, Daily, M emoria / Docusate 8-14 0 l 05:16: Refill(s) sertraline Yes 100 mg = 1 M emoria 100 mg oral 8-14 tab, PO, l tablet 05:16: Daily, # Wyatt 00 30 tab, 0 Refill(s) Amoxicillin No Notes: Tj boris 03-03 (Same as: l 23:57: Amoxil) amoxicillin Yes 875 mg = 1 Memoria 875 mg oral 7-05 tab, PO, l tablet 20:37: Q12H, X 10 Radha nn 00 day, # 20 tab, 0 Refill(s), Pharmacy: [facility] rivaroxaban Yes 20 mg = 1 M emoria 20 MG Oral 7-05 tab, PO, l Tablet 18:31: QPM, # 30 Rashid n [Xarelto] 00 tab, 0 Refill(s), Pharmacy: [facility] Amoxicillin No 875 mg = 1 Memoria 875 MG / 7-05 tab, PO, l Clavulanate 18:31: Q12H, X 10 Matthews 125 MG Oral 00 day, # 20 Tablet tab, 0 [Augmentin Refill(s), 875-mg] Pharmacy: [facility] Potassium No Notes: Memori a Chloride 03-03 (Same as: l 16:36: K-Dur 20) "Do Not Crush" For patients unable to swallow tablet, dissolve in one half glass of water. Allow about 2 minutes for the tablets to disintegra te. Stir before giving to prepare slurry and administer . Please exclude Patient s with feeding tube less than 14 [place] (Dobhoff, J-tube etc) and pediatric and patients. With food and full glass of water Ceftriaxone No Notes: Tj boris 03-02 (Same As: l 13:00: Rocephin). MEDICATION WASTE Product Size: 1000 mg Product Wasted: ___ mg Ondansetron No 4 mg, Memor ia 03-01 Route: l 23:07: IVP, ONCE, Matthews 00 Dosing Weight 67, kg, PRN Nausea & Vomiting, Start date: 03/01/18 18:07:00 CDT Flumazenil 2018-0 No 0.2 mg, Tj boris 03-01 Route: l 23:07: IVP, PRN, Wyatt 00 Dosing Weight 67, kg, PRN Benzodiaze pine Reversal, Initial dose, Start date: 03/01/18 18:07:00 CDT, Duration: 30 day, Stop date: 03/31/18 18:06:00 CDT Naloxone 2018-0 No 0.4 mg, Memori a 03-01 Route: l 23:07: IVP, Matthews 00 Q2MIN, Dosing Weight 67, kg, PRN Narcotic Reversal, Start date: 03/01/18 18:07:00 CDT, Duration: 8 doses or times, Stop date: Limited # of times Oxycodone 2018-0 No 10 mg, Memori a 03-01 Route: PO, l 23:07: Drug form: Matthews 00 TAB, Q4H, Dosing Weight 67, kg, PRN Pain Score 7-10, Start date: 03/01/18 18:07:00 CDT, Duration: 30 day, Stop date: 03/31/18 18:06:00 CDT Hydromorpho 2018-0 No 0.2 mg, Mem oria ne 03-01 Route: l 23:07: IVP, Matthews 00 Q5Min, Dosing Weight 67, kg, PRN Pain Score 7-10, Start date: 03/01/18 18:07:00 CDT, Duration: 4 doses or times, Stop date: Limited # of times Acetaminoph 2018-0 No 1,000 mg, M emoria en 03-01 Route: PO, l 23:07: Drug form: Wyatt 00 TAB, ONCE, Dosing Weight 67, kg, PRN Pain Score 1-3, Start date: 03/01/18 18:07:00 CDT Hydralazine 2018-0 No 10 mg, Tj boris 03-01 Route: l 23:07: IVP, Wyatt 00 Q20Min, Dosing Weight 67, kg, PRN Elevated BP, Start date: 03/01/18 18:07:00 CDT, Duration: 2 doses or times, Stop date: Limited # of times Labetalol No 10 mg, Memori a 03-01 Route: l 23:07: IVP, Matthews Q5Min, Dosing Weight 67, kg, PRN Elevated BP, Start date: 03/01/18 18:07:00 CDT, Duration: 5 doses or times, Stop date: Limited # of times sugammadex No Notes: Memor ia 03-01 (Same as: l 23:00: Bridion) Dilaudid No 0.5 mg, Memori a 03-01 Route: l 20:48: IVP, ONCE, Dosing Weight 67.6, kg, Priority: STAT, Start date: 03/01/18 15:48:00 CDT, Stop date: 03/01/18 15:48:00 CDT Zofran No Notes: Memoria 03-01 (Same as: l 17:40: Zofran) MEDICATION WASTE Product Size: 4 mg Product Wasted: ___ mg Docusate No Notes: Memoria 03-01 (Same as: l 14:00: Colace) (Do Not Crush) Sertraline No Notes: Memor ia 03-01 (Same as: l 14:00: Zoloft) Betamethaso No Notes: Tj boris ne 0.5 03-01 (betametha l MG/ML 14:00: sone dip, Matthews Augmented 00 aug 0.05% Topical 15gm CRM) Cream (Same As: Diprolene AF) heparin No Notes: Memoria sodium, 03-01 porcine l porcine 13:00: heparin Wyatt 2500 UNT/ML 00 Injectable Solution Ceftriaxone No Notes: Tj boris 03-01 (Same As: l 12:00: Rocephin). Use with 100 mL NS and infuse over 30 min MEDICATION WASTE Product Size: 2000 mg Product Wasted: ___ mg NS 1,000 mL No 1,000 mL, M emoria 03-01 Rate: 100 l 11:57: ml/hr, Infuse over: 10 hr, Route: IV, Dosing Weight 67.727 kg, Total Volume: 1,000, Start date: 03/01/18 6:57:00 CDT, Duration: 30 day, Stop date: 03/31/18 6:56:00 CDT, 1.72, m2 ketOROLAC No 4 days Memor ia 30 mg/mL 03-01 l injectable 11:52: MEDICATION H ermann solution WASTE Product Size: 30 mg Product Wasted: ___ mg Ondansetron No Notes: Tj boris 03-01 (Same as: l 11:21: Zofran) Matthews MEDICATION WASTE Product Size: 4 mg Product Wasted: _0__ mg Acetaminoph No Notes: Tj boris en 325 MG / 03-01 (Same as: l Hydrocodone 11:21: [place] Radha nn Bitartrate 00 325/5) Do 5 MG Oral not exceed Tablet 4gm/day of acetaminop hen. Fentanyl No Notes: Memoria 03-01 (Same as: l 09:54: Sublimaze) Preservat catalina free. Isolyte S No Notes: Memori a PH-7.4 03-01 (Same as: l (Bolus) IV 09:50: Isolyte S He rm PH 7.4) Fentanyl No Notes: Memoria 03-01 (Same as: l 05:51: Sublimaze) Preservat catalina free. Ondansetron No Notes: Tj boris 03-01 (Same as: l 05:51: Zofran) MEDICATION WASTE Product Size: 4 mg Product Wasted: ___ mg Ondansetron No 4 mg, Memor ia 03-01 Route: l 05:49: IVP, Drug form: INJ, ONCE, Dosing Weight 67.727, kg, Priority: STAT, Start date: 03/01/18 0:49:00 CDT, Stop date: 03/01/18 0:49:00 CDT Phenergan No 12.5 mg, Tj boris 3-10 Route: l 18:12: IVPB, Matthews 00 ONCE, Dosing Weight 67.727, kg, Priority: STAT, Start date: 11/06/17 12:12:00 AUDIOLOGY ASSISTANT, Stop date: 11/06/17 12:12:00 AUDIOLOGY ASSISTANT Fentanyl 2018-0 No 50 Memoria 3-10 microgram, l 18:12: Route: Matthews 00 IVP, ONCE, Dosing Weight 67.727, kg, Priority: STAT, Start date: 11/06/17 12:12:00 AUDIOLOGY ASSISTANT, Stop date: 11/06/17 12:12:00 AUDIOLOGY ASSISTANT Fentanyl 2018-0 No Notes: Memoria 3-10 (Same as: l 16:05: Sublimaze) Preservat catalina free. Ketorolac No 4 days Memor ia 3-10 l 15:35: MEDICATION WASTE Product Size: 30 mg Product Wasted: ___ mg Zofran No Notes: Memoria 3-10 (Same as: l 15:35: Zofran) MEDICATION WASTE Product Size: 4 mg Product Wasted: ___ mg Iohexol No Notes: Memoria 3-10 (same l 15:28: as:Omnipaq ue 350). WASTE: F/P - Black; E - Municipal Trash [facility] jose enrique 2012-08 Yes EVERY [address] [facility] l (XOPENEX 1-29 HOURS [facility] - HFA) 45 00:00: NEEDED Medical mcg/actuati 00 Center on inhaler Immunizations Ordered Immunization Filled Immunization Date Status Commen ts Source Name Name Tdap (Adacel) Unknown Completed [facility] Physicia ns Fluzone Quadrivalent Unknown Completed Univ ersity of 0.5 ML [facility] [place] [facility] Suspension Vital Signs Vital Name Observation Time Observation Value Comments Source Systolic (mm Hg) 2019-10-26 [facility] rmann 01:39:00 Diastolic (mm Hg) 2019-10-26 [facility] ermann 01:39:00 Respitory Rate 2019-10-26 [facility] carina 01:39:00 [facility] Temperature Oral 2019-10-26 98.3 F [facility] (F) 01:39:00 Heart Rate 2019-10-25 [facility] Rashid n 21:17:00 Temperature Oral 2019-10-25 98.7 F [facility] (F) 21:17:00 Systolic (mm Hg) 2019-10-25 [facility] 21:17:00 Diastolic (mm Hg) 2019-10-25 [facility] ermann 21:17:00 Respitory Rate 2019-10-25 [facility] 21:17:00 Temperature Oral 2019-10-25 98.3 F [facility] Joe rmann (F) 18:11:00 Heart Rate 2019-10-25 [facility] Rashid n 18:11:00 Respitory Rate 2019-10-25 [facility] carina 18:11:00 Systolic (mm Hg) 2019-10-25 [facility] 18:11:00 Diastolic (mm Hg) 2019-10-25 [facility] ermann 18:11:00 Height 2019-10-21 152.4 cm [facility] Rashid n 07:36:00 Weight 2019-10-21 [facility] Rashid n 07:36:00 BMI Calculated 2019-10-21 [facility] 07:36:00 Systolic blood 2019-10-20 154 mm[Hg] Location: [facility]; [facility] 10:01:00 Position: [place] [facility] Diastolic blood 2019-10-20 96 mm[Hg] Location: [facility]; [facility] 10:01:00 Position: [place] [facility] Body height 2019-10-20 60 [in_us] University 10:01:00 [place] [facility] Weight 2019-10-20 140 [lb_av] University 10:01:00 [place] [facility] Body mass index 2019-10-20 27.34 kg/m2 University o f (BMI) [Ratio] 10:01:00 [place] [facility] Body temperature 2019-10-20 98.4 [degF] Method: Oral University 10:01:00 [place] [facility] Heart Rate 2019-10-20 93 /min University 10:01:00 [place] [facility] Systolic blood 2019-10-13 132 mm[Hg] Location: [place]; [facility] pressure 09:41:00 Position: [place] [facility] Diastolic blood 2019-10-13 86 mm[Hg] Location: [facility] pressure 09:41:00 Position: [place] [facility] Weight 2019-10-13 140 [lb_av] [facility] of 09:41:00 [place] [facility] Body mass index 2019-10-13 27.34 kg/m2 University o f (BMI) [Ratio] 09:41:00 [place] [facility] Body temperature 2019-10-13 98 [degF] Method: Oral [facility] of 09:41:00 [place] [facility] Heart Rate 2019-10-13 93 /min Location: L [place] of 09:41:00 Brachial [place] [facility] Artery; Respiratory rate 2019-10-13 14 /min Quality: Normal Universi ty of 09:41:00 [place] [facility] BP Systolic 2019-09-12 118 mm[Hg] Location: [facility]; [facility] 14:01:00 Position: [place] [facility] BP Diastolic 2019-09-12 86 mm[Hg] Location: [facility]; [facility] :01:00 Position: [place] [facility] Height 2019-09-12 60 [in_us] [facility] of 14:01:00 [place] [facility] Temperature 2019-09-12 98.6 [degF] Method: Oral [facility] of 14:01:00 [place] [facility] Heart Rate 2019-09-12 116 /min Location: R [place] of 14:01:00 Brachial [place] [facility] Artery; Quality: Normal Respiration Rate 2019-09-12 15 /min Quality: Normal Universi ty of 14:01:00 [place] [facility] Temperature Oral 2019-08-30 97.7 F [facility] (F) 03:29:00 Heart Rate 2019-08-30 [facility] Rashid n 03:29:00 Respitory Rate 2019-08-30 [facility] 03:29:00 Systolic (mm Hg) 2019-08-30 [facility] 03:29:00 Diastolic (mm Hg) 2019-08-30 [facility] 03:29:00 Respitory Rate 2019-08-29 [facility] 21:30:00 Systolic (mm Hg) 2019-08-29 [facility] 21:30:00 Diastolic (mm Hg) 2019-08-29 [facility] 21:30:00 Respitory Rate 2019-08-29 [facility] 21:15:00 Systolic (mm Hg) 2019-08-29 [facility] 21:15:00 Diastolic (mm Hg) 2019-08-29 [facility] 21:15:00 Temperature Oral 2019-08-29 98.4 F [facility] (F) 17:40:00 Heart Rate 2019-08-29 Aurea Mike n 17:40:00 Temperature Oral 2019-08-29 98 F Aurea Diaz rmann (F) 13:35:00 Heart Rate 2019-08-29 Aurea Maheran n 13:35:00 Height 2019-08-26 152.4 cm Aurea Mike n 09:39:00 Weight 2019-08-26 Aurea Maheran n 09:39:00 BMI Calculated 2019-08-26 [facility] 09:39:00 Weight 2019-08-25 Aurea Maheran n 06:53:00 Respitory Rate 2019-01-31 [facility] 11:27:00 Systolic (mm Hg) 2019-01-31 [facility] rmann 11:27:00 Diastolic (mm Hg) 2019-01-31 [facility] 11:27:00 Systolic (mm Hg) 2019-01-31 [facility] r[facility] 10:25:00 Diastolic (mm Hg) 2019-01-31 [facility] Isabel ermann 10:25:00 Temperature Oral 2019-01-31 98.4 F Aurea Diaz rmann (F) 10:25:00 Respitory Rate 2019-01-31 [facility] 09:45:00 Diastolic (mm Hg) 2019-01-31 [facility] Isabel ermann 09:45:00 Temperature Oral 2019-01-31 98.4 F Aurea Diaz rmann (F) 09:45:00 Systolic (mm Hg) 2019-01-31 [facility] Joe rmann 09:45:00 Respitory Rate 2019-01-31 [facility] 08:25:00 Temperature Oral 2019-01-31 98.5 F [facility] Joe rmann (F) 02:04:00 Heart Rate 2019-01-31 Aurea Mike n 02:04:00 BP Systolic 2019-01-27 116 mm[Hg] [facility] 09:02:00 Position: [place] [facility] BP Diastolic 2019-01-27 81 mm[Hg] [facility] 09:02:00 Position: [place] [facility] Height 2019-01-27 60 [in_us] University 09:02:00 [place] [facility] Temperature 2019-01-27 98.4 [degF] Method: Oral [facility] of 09:02:00 [place] [facility] Heart Rate 2019-01-27 103 /min [facility] 09:02:00 [place] [facility] BP Systolic 2019-01-25 115 mm[Hg] Location: [facility] 11:14:00 Position: [place] [facility] BP Diastolic 2019-01-25 81 mm[Hg] Location: [facility] 11:14:00 Position: [place] [facility] Height 2019-01-25 60 [in_us] [facility] 11:14:00 [place] [facility] Weight 2019-01-25 142 [lb_av] [facility] 11:14:00 [place] [facility] Body Mass Index 2019-01-25 27.73 kg/m2 University o f Calculated 11:14:00 [place] [facility] Temperature 2019-01-25 98.2 [degF] Method: Oral [facility] 11:14:00 [place] [facility] Heart Rate 2019-01-25 101 /min Location: [facility] 11:14:00 Radial; [place] [facility] Respiration Rate 2019-01-25 18 /min Quality: Normal Universi of 11:14:00 [place] [facility] Respitory Rate 2019-01-23 [facility] 16:18:00 Systolic (mm Hg) 2019-01-23 [facility] 16:18:00 Diastolic (mm Hg) 2019-01-23 [facility] 16:18:00 Temperature Oral 2019-01-23 98.5 F [facility] (F) 16:18:00 Heart Rate 2019-01-23 [facility] Rashid n 16:18:00 Systolic (mm Hg) 2019-01-23 [facility] 12:47:00 Diastolic (mm Hg) 2019-01-23 [facility] 12:47:00 Respitory Rate 2019-01-23 [facility] carina 12:47:00 Heart Rate 2019-01-23 [facility] Rashid n 12:47:00 Temperature Oral 2019-01-23 98.0 F [facility] (F) 12:47:00 Temperature Oral 2019-01-23 98.1 F [facility] (F) 10:11:00 Respitory Rate 2019-01-23 [facility] 10:11:00 Systolic (mm Hg) 2019-01-23 [facility] 10:11:00 Diastolic (mm Hg) 2019-01-23 [facility] 10:11:00 Heart Rate 2019-01-23 [facility] Rashid n 10:11:00 Height 2019-01-22 152.4 cm [facility] Rashid n 14:03:00 BMI Calculated 2019-01-22 [facility] 14:03:00 Weight 2019-01-22 [facility] Rashid n 14:03:00 Weight 2019-01-22 Aurea Rashid n 07:20:00 BMI Calculated 2019-01-22 [facility] 07:20:00 Height 2019-01-22 152.4 cm Aurea Maheran n 07:20:00 Systolic (mm Hg) 2019-01-15 [facility] 21:38:00 Diastolic (mm Hg) 2019-01-15 [facility] 21:38:00 Heart Rate 2019-01-15 [facility] Rashid n 21:38:00 Temperature Oral 2019-01-15 98.5 F [facility] Joe rmann (F) 21:38:00 Respitory Rate 2019-01-15 [facility] car[facility] 21:38:00 Systolic (mm Hg) 2019-01-15 [facility] 18:01:00 Diastolic (mm Hg) 2019-01-15 [facility] 18:01:00 Respitory Rate 2019-01-15 [facility] 18:01:00 Temperature Oral 2019-01-15 98 F [facility] Joe rmann (F) 18:01:00 Heart Rate 2019-01-15 Aurea Rashid n 18:01:00 Temperature Oral 2019-01-15 98.5 F [facility] r[facility] (F) 13:05:00 Respitory Rate 2019-01-15 [facility] 13:05:00 Heart Rate 2019-01-15 Aurea Maheran n 13:05:00 Systolic (mm Hg) 2019-01-15 [facility] 13:05:00 Diastolic (mm Hg) 2019-01-15 [facility] 13:05:00 Height 2019-01-05 152.4 cm Aurea Maheran n 17:00:00 BMI Calculated 2019-01-05 [facility] 17:00:00 Weight 2019-01-05 [facility] Rashid n 17:00:00 BP Systolic 2019-01-04 120 mm[Hg] Location: [facility] 08:34:00 Position: [place] [facility] BP Diastolic 2019-01-04 88 mm[Hg] Location: [facility] 08:34:00 Position: [place] [facility] Temperature 2019-01-04 98.2 [degF] Method: Oral University 08:34:00 [place] [facility] Heart Rate 2019-01-04 101 /min Location: R [facility] 08:34:00 Brachial [place] [facility] Artery; Respiration Rate 2019-01-04 16 /min Quality: Normal Universi of 08:34:00 [place] [facility] BP Systolic 2018-12-23 115 mm[Hg] Location: [facility]; [facility] 11:14:00 Position: [place] [facility] S[facility] BP Diastolic 2018-12-23 84 mm[Hg] Location: [facility] 11:14:00 Position: [place] [facility] Height 2018-12-23 60 [in_us] University 11:14:00 [place] [facility] Body Mass Index 2018-12-23 27.73 kg/m2 University o f Calculated 11:14:00 [place] [facility] Weight 2018-12-23 142 [lb_av] University of 11:14:00 [place] [facility] Temperature 2018-12-23 97.9 [degF] Method: Oral [facility] 11:14:00 [place] [facility] Heart Rate 2018-12-23 99 /min Location: [facility] 11:14:00 Brachial [place] [facility] Artery; Respiration Rate 2018-12-23 14 /min University 11:14:00 [place] [facility] BP Systolic 2018-12-23 117 mm[Hg] Location: [facility] 10:06:00 Position: [place] [facility] S[facility] BP Diastolic 2018-12-23 85 mm[Hg] Location: [facility] 10:06:00 Position: [place] [facility] Height 2018-12-23 60 [in_us] University of 10:06:00 [place] [facility] Weight 2018-12-23 142 [lb_av] University of 10:06:00 [place] [facility] Body Mass Index 2018-12-23 27.73 kg/m2 University o f Calculated 10:06:00 [place] [facility] Temperature 2018-12-23 98.4 [degF] Method: Oral [facility] of 10:06:00 [place] [facility] Heart Rate 2018-12-23 97 /min University of 10:06:00 [place] [facility] Temperature Oral 2018-12-19 98.0 F [facility] rmann (F) 16:35:00 Systolic (mm Hg) 2018-12-19 [facility] He rmann 16:35:00 Diastolic (mm Hg) 2018-12-19 [facility] 16:35:00 Heart Rate 2018-12-19 [facility] Rashid n 16:35:00 Respitory Rate 2018-12-19 [facility] 16:35:00 Temperature Oral 2018-12-19 98.1 F [facility] Joe [facility] (F) 13:42:00 Heart Rate 2018-12-19 [facility] Rashid n 13:42:00 Respitory Rate 2018-12-19 [facility] 13:42:00 Systolic (mm Hg) 2018-12-19 [facility] 13:42:00 Diastolic (mm Hg) 2018-12-19 [facility] 13:42:00 Systolic (mm Hg) 2018-12-19 [facility] 09:02:00 Diastolic (mm Hg) 2018-12-19 [facility] 09:02:00 Heart Rate 2018-12-19 [facility] Rashid n 09:02:00 Respitory Rate 2018-12-19 [facility] 09:02:00 Temperature Oral 2018-12-19 97.8 F [facility] (F) 00:19:00 Weight 2018-12-15 Aurea Rashid n 09:56:00 Height 2018-12-15 152.4 cm [facility] Rashid n 09:56:00 Height 2018-12-14 152.4 cm [facility] n 10:36:00 BMI Calculated 2018-12-14 [facility] 10:36:00 Weight 2018-12-14 [facility] Rash[facility] n 10:36:00 Weight 2018-12-14 [facility] Rashid n 00:11:00 BMI Calculated 2018-12-14 [facility] 00:11:00 Height 2018-12-14 152.4 cm Aurea Rashid n 00:11:00 BP Systolic 2018-11-28 114 mm[Hg] [facility] 10:36:00 Position: [place] [facility] BP Diastolic 2018-11-28 83 mm[Hg] [facility] 10[facility]36:[facility] Position: [place] [facility] Height 2018-11-28 60 [in_us] [facility] 10:36:00 [place] [facility] Weight 2018-11-28 142 [lb_av] [facility] 10:36:00 [place] [facility] Body Mass Index 2018-11-28 27.73 kg/m2 University o f Calculated 10:36:00 [place] [facility] Heart Rate 2018-11-28 112 /min [facility] 10:36:00 [place] [facility] BP Systolic 2018-11-14 109 mm[Hg] [facility] 09:57:[facility] Position: [place] [facility] BP Diastolic 2018-11-14 71 mm[Hg] Location: [facility]; [place] of :57:00 Position: [place] [facility] Height 2018-11-14 60 [in_us] University of :57:00 [place] [facility] Weight 2018-11-14 142 [lb_av] University of :57:00 [place] [facility] Body Mass Index 2018-11-14 27.73 kg/m2 University o f Calculated 09:57:00 [place] [facility] Temperature 2018-11-14 98.6 [degF] Method: Oral University of :57:00 [place] [facility] Heart Rate 2018-11-14 94 /min University of :57:00 [place] [facility] BP Systolic 2018-06-08 133 mm[Hg] Location: [facility]; [facility] :36: Position: [place] [facility] S[facility] BP Diastolic 2018-06-08 93 mm[Hg] Location: [facility]; [facility] :36: Position: [place] [facility] Height 2018-06-08 60 [in_us] University of :36:00 [place] [facility] Weight 2018-06-08 144 [lb_av] University of :36: [place] [facility] Body Mass Index 2018-06-08 28.12 kg/m2 University o f Calculated 11:36:00 [place] [facility] Temperature 2018-06-08 98.6 [degF] Method: University of :36: Temporal [place] [facility] Heart Rate 2018-06-08 104 /min Location: [facility] 11:36:00 Brachial [place] [facility] Artery; BP Systolic 2018-05-30 137 mm[Hg] Location: [place]; [place] of :19: Position: [place] [facility] S[facility] BP Diastolic 2018-05-30 91 mm[Hg] Location: [place]; [facility] :19: Position: [place] [facility] Height 2018-05-30 60 [in_us] University of :19:00 [place] [facility] Weight 2018-05-30 144 [lb_av] University of :19: [place] [facility] Body Mass Index 2018-05-30 28.12 kg/m2 University o f Calculated 11:19:00 [place] [facility] Temperature 2018-05-30 97.8 [degF] Method: University of :19: Temporal [place] [facility] Heart Rate 2018-05-30 108 /min [facility] 11:19:00 [place] [facility] BP Systolic 2018-05-11 140 mm[Hg] [facility] 10:52:00 Position: [place] [facility] S[facility] BP Diastolic 2018-05-11 98 mm[Hg] Location: [facility]; [facility] 10:52:00 Position: [place] [facility] Height 2018-05-11 60 [in_us] [facility] 10:52:00 [place] [facility] Weight 2018-05-11 144 [lb_av] [facility] 10:52:00 [place] [facility] Body Mass Index 2018-05-11 28.12 kg/m2 University o f Calculated 10:52:00 [place] [facility] Temperature 2018-05-11 97.9 [degF] Method: [facility] 10:52:00 Temporal [place] [facility] Heart Rate 2018-05-11 115 /min [facility] 10:52:00 [place] [facility] Heart Rate 2018-04-20 [facility] Rashid n 16:39:00 Temperature Oral 2018-04-20 98.5 F [facility] (F) 16:39:00 Respitory Rate 2018-04-20 [facility] 16:39:00 Systolic (mm Hg) 2018-04-20 [facility] 16:39:00 Diastolic (mm Hg) 2018-04-20 [facility] 16:39:00 Systolic (mm Hg) 2018-04-20 [facility] 13:06:00 Diastolic (mm Hg) 2018-04-20 [facility] 13:06:00 Temperature Oral 2018-04-20 98.9 F [facility] (F) 13:06:00 Heart Rate 2018-04-20 [facility] 13:06:00 Respitory Rate 2018-04-20 [facility] 13:06:00 Respitory Rate 2018-04-20 [facility] 10:31:00 Temperature Oral 2018-04-20 98.0 F [facility] (F) 10:31:00 Systolic (mm Hg) 2018-04-20 [facility] 10:31:00 Diastolic (mm Hg) 2018-04-20 [facility] 10:31:00 Heart Rate 2018-04-20 [facility] 10:31:00 Height 2018-04-12 152.4 cm [facility] 04:47:00 BMI Calculated 2018-04-12 [facility] 04:47:00 Weight 2018-04-12 [facility] 04:47:00 Temperature Oral 2018-03-04 98.9 F [facility] (F) 12:22:00 Heart Rate 2018-03-04 [facility] 12:22:00 Systolic (mm Hg) 2018-03-04 [facility] 12:22:00 Diastolic (mm Hg) 2018-03-04 [facility] 12:22:00 Respitory Rate 2018-03-04 [facility] 12:22:00 Systolic (mm Hg) 2018-03-04 [facility] 11:06:00 Diastolic (mm Hg) 2018-03-04 [facility] 11:06:00 Temperature Oral 2018-03-04 98.4 F [facility] (F) 11:06:00 Heart Rate 2018-03-04 [facility] 11:06:00 Respitory Rate 2018-03-04 [facility] 11:06:00 Systolic (mm Hg) 2018-03-04 [facility] 09:30:00 Diastolic (mm Hg) 2018-03-04 [facility] 09:30:00 Temperature Oral 2018-03-04 98.3 F [facility] (F) 09:30:00 Respitory Rate 2018-03-04 [facility] 09:30:00 Heart Rate 2018-03-04 [facility] 09:30:00 BMI Calculated 2018-03-01 [facility] 20:49:00 Weight 2018-03-01 [facility] 20:49:00 Height 2018-03-01 152.4 cm [facility] 20:49:00 Weight 2018-03-01 [facility] 20:18:00 Systolic (mm Hg) 2017-11-06 [facility] 20:05:00 Diastolic (mm Hg) 2017-11-06 [facility] 20:05:00 Respitory Rate 2017-11-06 [facility] 20:05:00 Temperature Oral 2017-11-06 98.4 F [facility] (F) 20:05:00 Respitory Rate 2017-11-06 [facility] 19:13:00 Systolic (mm Hg) 2017-11-06 [facility] 19:13:00 Diastolic (mm Hg) 2017-11-06 [facility] 19:13:00 Systolic (mm Hg) 2017-11-06 [facility] Diaz rmann 18:30:00 Diastolic (mm Hg) 2017-11-06 [facility] Hall ermann 18:30:00 Respitory Rate 2017-11-06 Aurea Maher carina 18:30:00 Temperature Oral 2017-11-06 98.9 F [facility] rmann (F) 15:37:00 Weight 2017-11-06 Aurea Mike n 14:09:00 Heart Rate 2017-11-06 Aurea Mike n 14:09:00 Temperature Oral 2017-11-06 99.4 F [facility] Joe rmann (F) 14:09:00 Procedures Procedure Date / Time Performing Source Performed Clinician . [facility] - PAP 2019-10-20 [facility] [place] 00:00:[address] Abdomen/Pelvis w/wo 2019-10[facility]10 [facility] contrast [id number] 00:00:[address] Abd Renal Protocol w/wo IV [facility] [id number] Renal Stone [id number] 2019-09-11 [facility] 00:00:00 Physicians [QLH] CULTURE, URINE, ROUTINE 2018-12-23 [facility] Physicians [QLH] CBC (INCLUDES DIFF/PLT) 2018-12-23 [facility] Physicians MRI Pelvis with and without 2018-12-05 [facility] contrast [id number] 00:00:00 Physicians [QLH] CULTURE, URINE, ROUTINE 2018-11-28 [facility] Physicians [QLH] URINALYSIS, COMPLETE [facility]28 [facility] Physicians [QLH] CBC (INCLUDES DIFF/PLT) 2018-11-28 [facility] Physicians [QLH] CMP W/EGFR 2018-11-28 [facility] 00:00:[facility] Physicians MRI Abdomen/Pelvis w/wo 2018-11-14 [facility] contrast [id number] 00:00:00 Physicians Abdomen AP view [id number] 2018-08-01 [facility] 00:00:00 Physicians Abdomen AP view [id number] 2018-06-08 [facility] 00:00:00 Physicians [QLH] CBC (INCLUDES DIFF/PLT) 2018-05-30 [facility] [QLH] BASIC METABOLIC PANEL 2018-05-30 [facility] W/EGFR 00:00:[address] Abd Renal Protocol w/wo IV 2018-05-30 [facility] contrast [id number] 00:00:00 Physicians [H] C Urine Transplant 2018-05-30 [facility] 00:[facility] Physicians [H] Culture: Wound/Abscess 2018-05-30 [facility] w/Gram Stain 00:00:00 Physicians [H] PTH Profile 2018-05-11 [facility] 00:00:00 Physicians [QH] CALCIUM 2018-05-11 [facility] 00:00:00 Physicians [QLH] BUN/CREATININE RATIO 2018-05-11 [facility] W/EGFR 00:00:00 Physicians [B] VITAMIN D 25-HYDROXY 2018-05-11 [facility] 00:00:00 Physicians [QLH] CBC (INCLUDES DIFF/PLT) 2018[facility]05[facility]icians History of Colostomy [facility] Physicians History of Dilation And [facility] Curettage Of Cervical Stump Phys icians History of Hysteroscopy [facility] Physicians History of Ureteral stent [facility] placement Physicians History of [facility] Ventriculoperitoneal shunt Physi cians creation Construction of urostomy [facility] Operation [facility] Reopening of abdomen and [facility] re-exploration of intra-abdominal operation site and surgical arrest of postoperative bleeding Plan of Care Planned Activity Planned Date Details Comments Source Diagnostic Test 2019-10-20 CT Abd Renal [facility] [place] Pending 00:00:00 Protocol w/wo IV Physicians contrast [id number] [code = 87956-16] Diagnostic Test 2019-10-10 CT Abdomen/Pelvis [facility] Pending 00:00:00 w/wo contrast Physicians 99484 [code = 36547] Diagnostic Test 2018-12-05 [facility] P[facility] 00:[facility]:00 and without Physicians contrast 97996 [code = 42133] Diagnostic Test 2018-12-05 MRI Pelvis with [facility] Pending 00:00:00 and without Physicians contrast 96433 [code = 44473] Diagnostic Test 2018-12-01 Abdomen AP view [facility] Pending 00:00:00 50431 [code = Physicians 03687] Encounters Start End Encounter Admission Attending Care Care Encounter Source Date/Time Date/Time Type Type Clinicians Facility Department ID 2020-02-15 Outpatient [facility] URO [id number] [facility] HH 17:03:55 2019-10-21 Inpatient U [facility] MED [id number] [facility] H 12:15:00 2018-12-13 Inpatient U [facility] URO [id number] [facility] H 17:12:36 2020-03-06 2020-03-06 EDUARDO Puckett [facility] [id number] Univers 10:00:00 10:00:00 t; Mildred PIRES M.D. [place] Ruby PIRES M.D. [facility] 2019-12-08 2019-12-08 EDUARDO Quiroz Urology - [id number] Univers 08:45:00 08:45:00 t; ANNIE [facility]LE[facility]. [facility] 2019-11-03 2019-11-03 EDUARDO Das [facility] [id number] Univers 14:30:00 14:30:00 t; Erika RHOADES [place], [place] Ruby RHOADES M.D. [facility] 2019-10-27 2019-10-27 EDUARDO Quiroz Urology - [id number] Univers 10:15:00 10:15:00 t; ANNIE [facility]. [facility] 2019-10-21 2019-10-25 Outpatient Kandis [facility] [id number] 12:15:00 20:00:00 Zaira 52 [place] 2019-10-20 2019-10-20 EDUARDO [facility] [id number] Univers 10:15:00 10:15:00 t; JARED AGUILAR M.D. [facility] 2019-10-13 2019-10-13 Sintia TORRE [facility] Family [id number] Univers 09:30:00 09:30:00 t; Erika RHOADES Medicine - [facility]y [facility] Erika [place] ans 2019-09-29 2019-09-29 Outpatient [facility] [id number] 09:02:00 23:59:00 Hajar 06 Lacy 2019-09-12 2019-09-12 Appointmen EDUARDO TORRE Family [id number] Univers 13:15:00 13:15:00 t; Erika RHOADES Medicine - ity [facility] Medical Physici MNato [place] ans 2019-08-25 2019-08-29 Outpatient Quan [facility] [id number] 00:52:04 22:26:00 Ritik 11 2019-08-25 2019-08-25 Inpatient E [facility] MED [id number] HH 06:34:00 00:52:00 2019-03-21 2019-03-21 Appointmen CISCO [facility] [id number] Univers 11:00:00 11:00:00 t; shawn WERNER Tutu ROBERTS M.D. Physici ADRIANA, ans M.D. 2019-01-30 2019-01-31 Outpatient Panchito [facility] [id number] 21:00:00 06:36:00 Jordi Franklin 54 2019-01-30 2019-01-30 Emergency E [facility] URO [id number] [facility] 18:32:00 18:32:00 2019-01-27 2019-01-27 Appointmen EDUARDO AGUILAR Women's [id number] Univers 09:00:00 09:00:00 t; JARED AGUILAR M.D. Center i ty of Hellen MENDOSA M.D. ans 2019-01-25 2019-01-25 Appointmen EDUARDO SAEED Family [id number] Univers 10:30:00 10:30:00 t; Zana MEJIA - i Elvis M.D. [facility] ROBERTO Medical Physic silvina James [place] ans 2019-01-22 2019-01-23 Outpatient Philip [facility] [id number] 02:19:28 18:05:00 James Pradhan 2019-01-22 2019-01-22 Outpatient E [facility] MED [id number] [facility] 05:46:00 05:46:00 2019-01-12 2019-01-15 Outpatient Ash [facility] [id number] 17:47:00 18:49:00 Annie Lacy 2019-01-12 2019-01-12 Outpatient [facility] URO [id number] [facility] 17:47:00 17:47:00 2019-01-12 2019-01-12 Appointmen EDUARDO AGUILAR UTP [id number] Univers 11:30:00 11:30:00 t; JARED AGUILAR M.D. i ty of Hellen MENDOSA M.D. Physici ans 2019-01-12 2019-01-12 AppointEDUARDO Villa [id number] Univers 07:30:00 07:30:00 t; ANNIE ALEMAN M.D. ity of Hellen VALENCIA M.D. Physici ans 2019-01-06 2019-01-06 Outpatient [facility] URO [id number] [facility] 10:09:00 10:09:00 2019-01-04 2019-01-04 Appointmen EDUARDO AKHTAR Family [id number] Univers 08:15:00 08:15:00 t; Erika PORTILLO Medicine i ty of HERMILOHellen Physici M.D. ans 2018-12-23 2018-12-23 Appointmen MED EDUARDO Family [id number] Univers 11:00:00 11:00:00 t; MED PROVIDER, Medicine ity of PROVIDER, TCM [facility] Physici ans 2018-12-23 2018-12-23 Appointmen EDUARDO AGUILAR Women's [id number] Univers 09:40:00 09:40:00 t; JARED AGUILAR M.D. Center i ty of Hellen MENDOSA M.D. Physici ans 2018-12-13 2018-12-19 Outpatient Donnell [facility] [id number] 19:10:00 13:30:00 Viv Hernandez 2018-12-14 2018-12-13 [id number] 03:28:00 19:10:00 2018-12-07 2018-12-07 Appointpo ALEMAN [facility] Urologic [id number] Univers 10:30:00 10:30:00 t; ANNIE ALEMAN M.D. [facility] [place] Erika Physici ans 2018-12-06 2018-12-06 Outpatient Jared Aguilar OIP OIP [id number] 09:03:00 23:59:00 Omkar 05 2018-11-28 2018-11-28 [id number] Univers 10:45:00 10:45:00 t; Erika BOONE [facility] [place] Erika Physici ans 2018-11-28 2018-11-28 Sintia AGUILAR [facility] [id number] Univers 09:40:00 09:40:00 t; JARED AGUILAR M.D. ty [place], [place] Erika Physici ans 2018-11-14 2018-11-14 Appointpo AGUILAR [facility] [id number] Univers 09:30:00 09:30:00 t; JARED AGUILAR M.D. [facility] ty [facility] [place] Erika Physici ans 2018-08-10 2018-08-10 EDUARDO Quiroz [place] [id number] Univers 08:45:00 08:45:00 t; ANNIE ALEMAN M.D. Multi ity of ANNIE, [facility] Erika Physici ans 2018-06-16 2018-07-25 Outpatient SYED [facility] [id number] 15:22:13 07:30:00 Halyndseyr 06 Ibrihim 2018-06-08 2018-06-08 AppointEDUARDO Villa [place] [id number] Univers 09:45:00 09:45:00 t; ANNIE ALEMAN M.D. Multi ity of HAJAR, [facility] ans 2018-06-06 2018-06-06 Outpatient CANDICE LowP OI [id number] 10:00:00 10:00:00 Lilliana 2018-06-06 2018-06-06 Outpatient Low, MHOIP MHOIP [id number] 10:00:00 10:00:00 Lilliana 2018-06-06 2018-06-06 Outpatient Low, MHOIP MHOIP [id number] 10:00:00 10:00:00 Lilliana 2018-06-06 2018-06-06 Outpatient Low, MHOIP MHOIP [id number] 10:00:00 10:00:00 Lilliana 2018-06-02 2018-06-02 Outpatient Low, [id number]. [id number] . [id number] 10:16:00 23:59:00 Lilliana [id number] 2018-05-30 2018-05-30 Appointmen EDUARDO LOW Urologic [id number] Univers 10:30:00 10:30:00 t; Fiona GODFREY ity of LOW, P.ARebecca [place] LILLIANA [facility] P.ARebecca ans 2018-05-11 2018-05-11 Appointmen EDUARDO ALEMAN [place] [id number] Univers 10:15:00 10:15:00 t; ANNIE ALEMAN M.D. [facility] itira of Erika Physici ans 2018-04-11 2018-04-20 Outpatient Vicente Alberts [facility] [id number] 23:22:00 14:40:00 25 2018-04-15 2018-04-15 Appointmen EDUARDO ALEMAN [facility] [id number] Univers 08:45:00 08:45:00 t; ANNIE ALEMAN M.D. it of [facility] [place] Erika Physici ans 2018-02-28 2018-03-04 Outpatient Onyema, [facility] [id number] 23:12:00 09:45:00 Randall Benz 2017-11-06 2017-11-06 Outpatient Ostermayer, [facility] [id number] 08:08:00 14:51:00 Elton Sharif Nelson 2010-06-10 2010-06-10 Appointmen EDUARDO STEWART [facility] [id number] Univers 13:30:00 13:30:00 YOUSIF Ivey, [facility] Erika DODD [place] Erika Physici ans Results Test Description Test Time Test Comments Results Result Comments Source CHEM PANEL 2019-10-25 92 [facility] 08:38:00 [facility] CHEM PANEL 2019-10-25 10 [facility] 08:38:00 [facility] CHEM PANEL 2019-10-25 0.47 [facility] 08:38:00 [facility] CHEM PANEL 2019-10-25 138 [facility] 08:38:00 Wyatt CHEM PANEL 2019-10-25 3.9 Memorial 08:38:00 Wyatt CHEM PANEL 2019-10-25 105 [facility] 08:38:00 Wyatt CHEM PANEL 2019-10-25 20 [facility] 08:38:00 Matthews CHEM PANEL 2019-10-25 8.8 Memorial 08:38:00 Wyatt CHEM PANEL 2019-10-25 16.9 [facility] 08:38:00 Matthews CHEM PANEL 2019-10-25 143 [facility] 08:38:00 Matthews HEMATOLOGY 2019-10-25 Clumped [facility] 08:38:00 (10/25/19 2:38 Wyatt AM) HEMATOLOGY 2019-10-25 91.2 [facility] 08:38:00 Matthews HEMATOLOGY 2019-10-25 6.3 Memorial 08:38:00 Wyatt HEMATOLOGY 2019-10-25 2.3 [facility] 08:38:00 Matthews HEMATOLOGY 2019-10-25 0.2 [facility] 08:38:00 Wyatt HEMATOLOGY 2019-10-25 8.4 [facility] 08:38:00 [facility] HEMATOLOGY 2019-10-25 0.6 [facility] 08:38:00 [facility] HEMATOLOGY 2019-10-25 0.2 [facility] 08:38:00 [facility] HEMATOLOGY 2019-10-25 9.2 [facility] 08:38:00 Wyatt HEMATOLOGY 2019-10-25 4.48 [facility] 08:38:00 [facility] HEMATOLOGY 2019-10-25 12.2 [facility] 08:38:00 Wyatt HEMATOLOGY 2019-10-25 37.4 [facility] 08:38:00 [facility] HEMATOLOGY 2019-10-25 83.5 [facility] 08:38:00 [facility] HEMATOLOGY 2019-10-25 08:38:00 Test Item Value Reference Range Interpretation Comme nts MCH (test code = MCH) 27.3 pg 27.0-31.0 [facility] UwqciabYLIOZVLUDQ2585-37-83 08:38:0032.7[facility]annHEMATOLOGY 2019-10-25 08:38:0014.7[facility] OuhhrgiKGYJIOXWGS9342-83-96 08:38:00xxxxxxx (10/25/19 2:38 AM)[facility] TyfadxkHOFTUSYAQR8255-87-37 14:54:72077Fvoyhlnk XxprpdaWUDHLSQSRR8411-99-26 14:54:00 Test Item Value Reference Range Interpretation Comments PT (test code = PT) 13.1 s 12.0-14.7 [facility] SrjknhqWSFOLAETOG5916-07-16 14:54:00 Test Item Value Reference Range Interpretation Comments INR (test code = INR) 0.99 1 0.85-1.17 [facility] WqjihhkRBHSGFLNGR0877-50-03 14:54:00 Test Item Value Reference Range Interpretation Comments PTT (test code = PTT) 32.3 s 22.9-35.8 [facility] HermannCHEM JYADL4797-08-27 10:01:0079[facility] HermannCHEM PANEL 2019-10-24 10:01:009[facility] HermannCHEM JPHGF3324-71-26 10:01:000.48[facility] HermannCHEM PSJFZ5794-30-94 10:01:69920Njxnckbd HermannCHEM LAWZD7527-08-59 10:01:003.3[facility] HermannCHEM WYYTH3414-85-68 10:01:42322Zqjmeshp HermannCHEM DBJZX1371-53-24 10:01:0023[facility] HermannCHEM CPLHI8861-45-12 10:01:008.9 [facility] HermannCHEM OFUCC1371-68-92 10:01:0011.3[facility] HermannCHEM PANEL 2019-10-24 10:01:71906Okapqmcq DlfafzgCZYMFZSGZO5309-52-10 10:01:00Clumped (10/24/19 4:01 AM)[facility] UhibbnwKCBSHZVPBL2013-35-64 10:01:0060.2[facility] KldblvuOACQBOQZUH1417-98-00 10:01:0025.1[facility] YzqcszwQCAMZYKOSH7790-60-42 10:01:0011.4[facility] OfqhckaYHHDYXAVHX9162-76-94 10:01:002.8[facility] Wyatt GDAIPUZHEC7346-41-01 10:01:000.5[facility]orial NcnwwmxABHWDXADPZ9454-73-42 10:01:003.6 Memorial DzfrhorCIOCLXNQVH5936-57-61 10:01:001.5[facility] HermannHEMATOLOGY 2019-10-24 10:01:000.7[facility] WehqfqvLFUVKSFFMJ2160-02-75 10:01:000.2[facility] DvqvbtfBURPTVXXLY9227-31-91 10:01:005.9[facility] FofuwlbELRBWVAAUS3862-69-35 10:01:004.13[facility] WqnpqhoSIJORIBUOO5107-59-85 10:01:0011.3[facility] Wyatt NLTKWTIQMS9554-94-12 10:01:0034.5[facility] IfeyxvqNAQOOPDVRQ7403-05-01 10:01:00 83.5Mem[facility] SmuqdtwDELOBRARUD7592-24-46 10:01:00 Test Item Value Reference Range Interpretation Comments MCH (test code = MCH) 27.3 pg 27.0-31.0 [facility] UwpqaujQXQDADTQWI8664-91-60 10:01:0032.6[facility] HermannHEMATOLOGY 2019-10-24 10:01:0015.3[facility] JbyhcsbRBYFCGQYUC7442-96-44 10:01:008.6[facility] HvvyfoqXQZXBTTQVB2439-01-93 15:14:95576Djxjdfft RkuhchsYQCKMWTGTL5956-04-37 15:14:00 Test Item Value Reference Range Interpretation Comments PT (test code = PT) 13.0 s 12.0-14.7 [facility] NlnwjaxQNBCPKYWCK0517-57-01 15:14:00 Test Item Value Reference Range Interpretation Comments INR (test code = INR) 0.98 1 0.85-1.17 Memorial RdtiicbJVZORWUWTZ4047-11-26 15:14:00 Test Item Value Reference Range Interpretation Comments PTT (test code = PTT) 34.3 s 22.9-35.8 [facility] HermannCHEM QUUDG3588-12-25 09:34:47764Wuuutgxk HermannCHEM PANEL 2019-10-23 09:34:0011Mem[facility] HermannCHEM BCZKT6570-76-74 09:34:000.68[facility] HermannCHEM BAVKS0750-43-51 09:34:66884Fdtqxwyd HermannCHEM OFLAG2913-53-14 09:34:003.4[facility] HermannCHEM UOTCV7931-92-93 09:34:23154Hgzcxvua HermannCHEM PAMAA9863-52-50 09:34:0023[facility] HermannCHEM ZCTLA9681-95-69 09:34:0010.4 [facility] HermannCHEM QZLVD0007-70-41 09:34:008.8[facility] HermannCHEM PANEL 2019-10-23 09:34:95312Uaqtdalk BasqvtiHCWTJGSZYI5592-77-99 09:34:00Normal (10/23/19 3:34 AM)[facility] WbouvarXOCSLYWGSZ9651-15-84 09:34:00Clumped (10/23/19 3:34 AM)[facility]orial BmjhmwpTXSYIIFYUD4846-38-47 09:34:0074.0[facility] Wyatt YEVMXZXZBE4543-23-84 09:34:0013.9[facility]orial HtjhyvnYFFLXZJYLY7896-04-38 09:34:00 9.3[facility] YezjohqLOCSTDPOAZ3737-53-83 09:34:002.5[facility] HermannHEMATOLOGY 2019-10-23 09:34:000.3[facility] NkrmsolIWTSYOBMDE1628-15-38 09:34:007.6[facility] PtchmwrGBVTQHHFWX8267-14-42 09:34:001.4[facility]orial ZszwrqySZKGGNUWUY1815-35-94 09:34:001.0[facility]orial PwlhbrbJGQCDZUDIQ5310-85-68 09:34:000.3[facility] NFCNOCNITZ8801-42-42 09:34:0010.3[facility]orial RgdyycrTIAOVWHTTT2315-36-69 09:34:00 4.12Memorial CuwowcqPSGEAOETBP2291-57-24 09:34:0011.1[facility] HermannHEMATOLOGY 2019-10-23 09:34:0034.9[facility] StevqlkSHIXLOFOOF0251-51-47 09:34:0084.8[facility]orial WlirxeaZJTIBELLMG2792-24-36 09:34:00 Test Item Value Reference Range Interpretation Comments MCH (test code = MCH) 27.0 pg 27.0-31.0 Memorial ZrehfwkELZCJXRLTV8395-80-58 09:34:0031.8[facility] HermannHEMATOLOGY 2019-10-23 09:34:0015.8[facility]orial MkfhmktVZIVROGPBV4292-85-01 09:34:00See Note 6(10/23/19 3:34 AM)[facility] SwxwkirSZADUFVVZF4912-46-83 09:34:00xxxxxxx (10/23/19 3:34 AM)[facility] FnyufamGHBECOWXXR9442-18-23 14:48:00Normal (10/22/19 8:48 AM) [facility] DoduonyTTGNNDUPEA7618-60-23 14:48:001.8[facility] HermannHEMATOLOGY 2019-10-22 14:48:000.2[facility] HermannURINE FUMT7138-79-28 16:46:00Negative (10/21/19 10:46 AM)[facility] HermannCHEM OXUQG6326-33-27 09:52:007.9[facility] HermannCHEM OKAGA6981-71-93 09:52:003.3[facility] HermannCHEM TZUUZ9935-26-06 09:52:0024[facility] HermannCHEM IGULW4365-28-85 09:52:0016[facility] HermannCHEM RWNIU2742-50-97 09:52:0070[facility] HermannCHEM MKIYR1328-42-76 09:52:000.4 [facility] HermannCHEM VUOQN4681-92-96 09:52:00 Test Item Value Reference Range Interpretation Comments B/C Ratio (test code = B/C Ratio) 16 1 6-25 [facility] HermannCHEM CVBWA0930-97-38 09:52:004.6[facility] HermannCHEM PANEL 2019-10-21 09:52:00 Test Item Value Reference Range Interpretation Comments A/G Ratio (test code = A/G Ratio) 0.7 1 0.7-1.6 [facility] HermannCIPROFLOXACIN:SUSC:PT:ISOLATE:ORDQN:OTU1539-45-17 09:52:00 Enterococcus SpeciesMemorial SqppjkeSGSGKUULCJ2806-48-96 09:52:00 Test Item Value Reference Range Interpretation Comments PT (test code = PT) 14.2 s 12.0-14.7 Memorial RaxcdvfENDTYGJPFA2413-76-66 09:52:00 Test Item Value Reference Range Interpretation Comments INR (test code = INR) 1.10 1 0.85-1.17 [facility] PimwxokDJQPJJVNVT2862-24-49 09:52:00 Test Item Value Reference Range Interpretation Comments PTT (test code = PTT) 31.1 s 22.9-35.8 [facility] HermannURINE AND WCWXX3094-11-31 08:53:00Yellow *NA*(10/21/19 2:53 AM) [facility] AND STCWL3574-25-11 08:53:00Marked *ABN*(10/21/19 2:53 AM) [facility] AND XGIRC7643-93-17 08:53:00 Test Item Value Reference Range Interpretation Comments UA Spec Grav (test code = UA Spec 1.011 1 Grav) [facility] AND UHLUW9076-18-03 08:53:00 Test Item Value Reference Range Interpretation Comments UA pH (test code = UA pH) 6.0 1 5.0-8.0 [facility] [id number] 08:53:00Negative *NA*(10/21/19 2:53 AM) [facility] PTTWY9293-86-25 08:53:00Large *ABN*(10/21/19 2:53 AM) [facility] JODFE4541-78-91 08:53:00<1.0[facility] VBDGP8248-80-21 08:53:00Positive *ABN*(10/21/19 2:53 AM)[facility] BKURD9521-32-56 08:53:00Large *ABN*(10/21/19 2:53 AM)[facility] TZFJD1359-91-03 08:53:10945[facility]jpwqxit [facility] RPNOK4707-43-72 08:53:0047[facility] TSYGV7747-50-61 08:53:009[facility]. [facility] - [id number] 00:00:00 Test Item Value Reference Range Interpretation Comments Case (test code = Click ImageLink button N Case) for report. [facility] PhysiciansCHEM BXPMG7620-93-34 10:36:001.5[facility] CHEM PEQVX8018-53-07 10:36:003.4[facility] BudhjizPSBFEKRPXWNG7731-49-64 10:36:00 7.5[facility] RtnvqagCZEVSPQXDTYM4485-60-86 10:36:0074[facility]annELECTROLYTES 2019-08-29 10:36:007[facility] GyynxuoWMNXPKWBWUOK1926-05-18 10:36:000.62[facility] CqdcfgnFYGSLPSYWKAW3425-86-61 10:36:70097Yicqlhkl QzwhqgtHYZRJAGFTUIW9705-79-55 10:36:003.5[facility] DaxiuyoCDWRYVEGKGJH9771-25-50 10:36:67105Zxpshupn [facility] GVKQQJQTZBXH8527-17-99 10:36:0026[facility] KkbbbwaQSXGDFBYDQUK1500-42-94 10:36:00 8.3[facility] BfaxwpsDUYDDPHPFHNT0162-23-91 10:36:75819Pqechzzm HermannHEMATOLOGY 2019-08-29 10:36:005.5[facility] AbwokloLBEPWCKQTE5495-12-56 10:36:004.35[facility] EdbcocvVKENJIPGUP1040-87-11 10:36:0011.9[facility] RxduojcFNBNSVUFOT3657-03-97 10:36:0036.8[facility] DwmsmruVYBEAUFYZO1201-41-52 10:36:0084.6[facility] LMUXPHKXOS2671-93-50 10:36:00 Test Item Value Reference Range Interpretation Comments MCH (test code = MCH) 27.4 pg 27.0-31.0 [facility] JhrwyakPCXRILYTKC1659-11-84 10:36:0032.3[facility]annHEMATOLOGY 2019-08-29 10:36:0015.2[facility] OhioopgUPVVNQYWZJ0136-25-12 10:36:00See Note 4(08/29/19 4:36 AM)[facility] EwjsxsbAABPAUGRUE8989-68-74 10:36:00xxxxxxx (08/29/19 4:36 AM)[facility] JsnngoiVGRBTVTBIL6449-09-43 10:36:00 Test Item Value Reference Range Interpretation Comments INR (test code = INR) 1.00 1 0.85-1.17 [facility] WuekervAFMBLHTMYT7497-31-72 10:36:00 Test Item Value Reference Range Interpretation Comments PT (test code = PT) 13.2 s 12.0-14.7 [facility] UdkllubZMBEKCSLPB4681-53-65 10:36:00 Test Item Value Reference Range Interpretation Comments PTT (test code = PTT) 48.6 s 22.9-35.8 [facility] BzhzgmeAUCMBMGEDY9793-15-29 10:36:00Normal (08/29/19 4:36 AM)[facility] JhdbzzqRKHBZPUYIP9195-70-89 10:36:00Clumped (08/29/19 4:36 AM)[facility] YKMBEGQNFW2402-25-32 10:36:0056.8[facility] VafoofqEFHFPKSVVM7200-06-15 10:36:00 25.6[facility] LdzeduaGREHTDPMPQ5219-89-21 10:36:0013.2[facility] HermannHEMATOLOGY 2019-08-29 10:36:003.5[facility] KzwgdvkFOPTXVZVER1755-05-42 10:36:000.9[facility] PotnsirKLQMLTZCKR6564-16-08 10:36:003.1[facility] AkenxubIZIHZOSCQY5491-05-91 10:36:001.4[facility] LiylktcBLETJNDUOV5593-91-92 10:36:000.7[facility] JMYIXMNCWJ9990-35-46 10:36:000.2[facility] HermannPARATHYROID OFFWIRG1438-19-20 10:36:001.15[facility] HermannPARATHYROID DFOXQFN1866-21-04 10:36:001.11[facility] IxhjxgkZDEKUVKAYR6374-12-72 16:08:05577Ueneidvk HermannCHEM MNWQV8089-18-52 11:35:003.2[facility] HermannCHEM ZBGYK0956-70-32 11:35:0094[facility]annCHEM YDNIB4440-48-51 11:35:008[facility] HermannCHEM KTRCQ8100-87-22 11:35:000.55 [facility]annCHEM EYNML1323-23-13 11:35:87468Vonbiihy HermannCHEM PANEL 2019-08-28 11:35:003.6[facility] HermannCHEM SXJTW6926-31-95 11:35:38355Mkmbjgxl HermannCHEM MTMLS9847-58-81 11:35:0023[facility]annCHEM TQFNH4374-64-54 11:35:008.3[facility] HermannCHEM AJRNB3732-41-99 11:35:24979Fnrlnzjf HermannCHEM FACKO9265-19-69 11:35:009.6[facility] HermannCHEM XCNEK2717-61-09 11:35:001.9 [facility] HdvzcxvAOQNZLSKIM6824-03-41 11:35:0067.4[facility] HermannHEMATOLOGY 2019-08-28 11:35:0019.6[facility] EzdyuzyQYIGHVHBBW6002-08-56 11:35:009.3[facility] QcwvkkbUOFJDVWKST2201-57-61 11:35:003.2[facility] IystpzdZWNFBMROWR5145-17-00 11:35:000.5[facility] GljrarbCTXKBOQXDJ6954-88-78 11:35:004.9[facility] FETXFQROLT9397-96-68 11:35:001.4[facility] WkzvfrxHGCXRSYMKB7075-89-36 11:35:000.7 [facility] OdiiibhVTDZPLTQGR6823-57-63 11:35:000.2[facility] HermannHEMATOLOGY 2019-08-28 11:35:001+ (08/28/19 5:35 AM)[facility] JkyfjzpSGKTVUFXZK4673-53-26 11:35:007.3[facility] EbzrbllSBMYTRARZR3905-68-66 11:35:004.43[facility] MSSPKTMLRY9701-36-21 11:35:0012.1[facility] MvyijnvIHAFWGEQDU8684-16-13 11:35:00 38.3[facility] WmjqcxhXBEQYDDCAZ7318-43-02 11:35:0086.3[facility] HermannHEMATOLOGY 2019-08-28 11:35:00 Test Item Value Reference Range Interpretation Comments MCH (test code = MCH) 27.4 pg 27.0-31.0 [facility] NumfbrxROOZPHOCWG7759-52-19 11:35:0031.7[facility] HermannHEMATOLOGY 2019-08-28 11:35:0015.5[facility] ZdxlayeHXDSKKNYOB4998-17-47 11:35:00See Note 5(08/28/19 5:35 AM)[facility] LvhjftpXLRFZBRRJW3841-19-36 11:35:00xxxxxxx (08/28/19 5:35 AM)[facility] HermannPARATHYROID FQIVQGP2758-60-71 11:35:001.11 [facility]annPARATHYROID LVNXPID6334-30-22 11:35:001.06[facility] VXIDQYBANK4657-13-44 14:07:79076Jrumtlzo HermannCHEM RLENE5339-04-16 10:57:0087 [facility]annCHEM CUGRL6872-14-64 10:57:0012[facility] HermannCHEM PANEL 2019-08-27 10:57:000.67[facility]annCHEM LHIIG9946-39-04 10:57:13461Tvblubbv HermannCHEM JBAQJ6369-18-64 10:57:003.6[facility]annCHEM DHIVZ1644-43-48 10:57:33698Ztpmwnrf HermannCHEM XPBUN3384-08-34 10:57:0023[facility]annCHEM YNXPC0895-61-84 10:57:007.9[facility] HermannCHEM AJLSF5489-33-17 10:57:73661 [facility]annCHEM BEKUJ4827-69-25 10:57:008.6[facility] HermannCHEM PANEL 2019-08-27 10:57:002.3[facility] HermannCHEM NZGCB0065-76-81 10:57:002.3[facility] PjgeutvGWGMKVWVFA3668-93-55 10:57:0082.4[facility] TvcrligFDTWTXDMTJ4504-28-63 10:57:008.2[facility] EayhuuvDZRJLBNWUC4333-58-92 10:57:007.2[facility] ICDPAFMTBS6217-20-23 10:57:002.0[facility] JqvgsjaGFDMOHKDIA9212-86-60 10:57:000.2 [facility] DdcasssXPGHKDTXEM5948-47-78 10:57:009.3[facility] HermannHEMATOLOGY 2019-08-27 10:57:000.9[facility] OpwxgorQHUASFJQQQ4715-97-90 10:57:000.8[facility] VxhcrcfLPTIDUTKKG0359-64-92 10:57:000.2[facility] VzedodgXVORAKQKOI3424-70-96 10:57:0011.3[facility] QwsfutxNWMTFRYICG2663-04-06 10:57:004.20[facility] FKXCIUWRAO8919-78-31 10:57:0011.6[facility] MkngwqhADNBEXQINM9974-67-73 10:57:00 36.1[facility] DuxndmjVRKJCRCUZC2376-37-79 10:57:0086.0[facility] HermannHEMATOLOGY 2019-08-27 10:57:00 Test Item Value Reference Range Interpretation Comments MCH (test code = MCH) 27.5 pg 27.0-31.0 [facility] LphixgkVNRSWYLNZU8525-18-72 10:57:0032.0[facility] HermannHEMATOLOGY 2019-08-27 10:57:0015.5[facility] VzdjhkrRKWHENQUSV4407-20-68 10:57:00See Note 6(08/27/19 4:57 AM)[facility] ScaowldPGCUOLAESA8633-83-63 10:57:00xxxxxxx (08/27/19 4:57 AM)[facility] HermannPARATHYROID ORVYKRI8600-85-32 10:57:001.17 [facility] HermannPARATHYROID GBDZRBG7985-52-79 10:57:001.09[facility]annURINE AND HPHJZ5444-74-57 09:03:14Yellow *NA*(08/25/19 3:03 AM)[facility] AIXMI5228-80-64 09:03:14Slight Cloudy (08/25/19 3:03 AM)[facility] URINE AND QCMCV5154-14-78 09:03:14 Test Item Value Reference Range Interpretation Comments UA Spec Grav (test code = UA Spec 1.010 1 Grav) [facility] KCBVI2495-26-24 09:03:14 Test Item Value Reference Range Interpretation Comments UA pH (test code = UA pH) 6.0 1 5.0-8.0 [facility] GSMTE6582-48-35 09:03:14Negative (08/25/19 3:03 AM) [facility] DBOZE6050-23-93 09:03:14Negative (08/25/19 3:03 AM) [facility] XWTHM1453-52-38 09:03:14Negative *NA*(08/25/19 3:03 AM)[facility] BBINM7498-40-44 09:03:14Negative *NA*(08/25/19 3:03 AM)[facility] ZKTTF2530-10-93 09:03:14Large *ABN*(08/25/19 3:03 AM)[facility] RETBR8170-21-44 09:03:141.0[facility] BTGBH8517-91-70 09:03:14Negative (08/25/19 3:03 AM)[facility] IUNLZ4238-99-49 09:03:14Moderate *ABN*(08/25/19 3:03 AM)[facility]UR[facility] RZGC1738-95-58 09:03:14Negative (08/25/19 3:03 AM)[facility] GENTAMICIN:SUSC:PT:ISOLATE:ORDQN:FGB5852-58-86 09:00:00Enterococcus Species [facility] HermannGENTAMICIN:SUSC:PT:ISOLATE:ORDQN:LZN6076-97-90 09:00:00 Escherichia coliMemorial HermannBLOOD BANK TOATCDA3904-74-14 07:51:00Negative (08/25/19 1:51 AM)[facility] InwxejcNRWVJRLCFX4794-37-90 07:51:00Negative *NA*(08/25/19 1:51 AM)[facility] HermannMOLECULAR KDGUSZRXLU1084-99-77 07:51:00Not Detected (08/25/19 1:51 AM)[facility]annMOLECULAR XCQFIBLTES8009-52-27 07:51:00Not Detected (08/25/19 1:51 AM)[facility]annMOLECULAR DIAGNOSTIC 2019-08-25 07:51:00Not Detected (08/25/19 1:51 AM)[facility]annMOLECULAR GPAAAXDFOG4357-88-56 07:51:00Not Detected (08/25/19 1:51 AM)[facility] MOLECULAR SKCTUHBQVJ8778-46-88 07:51:00Not Detected (08/25/19 1:51 AM)[facility]annMOLECULAR RWMQEYAPEG8250-29-83 07:51:00Not Detected (08/25/19 1:51 AM) [facility]annMOLECULAR YBUKMBNXDE0254-51-94 07:51:00Not Detected (08/25/19 1:51 AM)[facility]annMOLECULAR FLNQXAPNKR7130-96-15 07:51:00Not Detected (08/25/19 1:51 AM)[facility]annMOLECULAR QHSVMEGTWO6801-05-43 07:51:00Not Detected (08/25/19 1:51 AM)[facility]annMOLECULAR XYIEDWQRLX0498-31-57 07:51:00Detected *ABN*(08/25/19 1:51 AM)[facility]annMOLECULAR DIAGNOSTIC 2019-08-25 07:51:00Not Detected (08/25/19 1:51 AM)[facility]annMOLECULAR HOSXUXFDCV7448-91-59 07:51:00Not Detected (08/25/19 1:51 AM)[facility] MOLECULAR VQEXORPTNO6295-62-91 07:51:00Not Detected (08/25/19 1:51 AM)[facility]annMOLECULAR PRPENECBQI6436-17-21 07:51:00Not Detected (08/25/19 1:51 AM) [facility]annMOLECULAR MNHLFSACSK9456-74-71 07:51:00Not Detected (08/25/19 1:51 AM)[facility] HermannCHEM MBFBX9325-01-89 07:34:151.2[facility] ZBDULVKXVD5781-54-58 07:34:15 Test Item Value Reference Range Interpretation Comments PTT (test code = PTT) 27.5 s 22.9-35.8 [facility] ZbyohatQPMAAXWEAB0060-83-97 07:34:15 Test Item Value Reference Range Interpretation Comments PT (test code = PT) 14.9 s 12.0-14.7 [facility] UphlcryMEYJJRUKAF7144-37-78 07:34:15 Test Item Value Reference Range Interpretation Comments INR (test code = INR) 1.16 1 0.85-1.17 [facility] MeenknjKKAULQIKQR2784-75-64 07:34:15Normal (08/25/19 1:34 AM)[facility] LutbopzTNXVBVDWIP7690-96-37 07:34:15Clumped (08/25/19 1:34 AM)[facility] URINE AND PGGZZ7022-24-07 06:14:30Negative *NA*(01/31/19 1:14 AM)[facility] URINE AND CDHBV9421-66-52 06:14:30Negative (01/31/19 1:14 AM)[facility] CZYIT5412-55-01 06:14:30Negative *NA*(01/31/19 1:14 AM)[facility] RBCBV8109-30-16 06:14:30Small *ABN*(01/31/19 1:14 AM)[facility] YIYGY2463-56-11 06:14:30Trace *ABN*(01/31/19 1:14 AM)[facility] CGXZJ4197-75-32 06:14:30None Seen (01/31/19 1:14 AM)[facility] UCKUY1113-53-53 06:14:300.2[facility] AND XTDCK6563-25-13 06:14:30 Negative (01/31/19 1:14 AM)[facility] COCYP2787-11-80 06:14:30Small *ABN*(01/31/19 1:14 AM)[facility] MDOAU5384-42-49 06:14:30Yellow *NA*(01/31/19 1:14 AM)[facility] EDRFQ4590-12-91 06:14:30Slight Cloudy (01/31/19 1:14 AM)[facility] XTLLA1456-85-74 06:14:30 Test Item Value Reference Range Interpretation Comments UA Spec Grav (test code = UA Spec 1.020 1 Grav) [facility] DNCLF6719-25-70 06:14:30 Test Item Value Reference Range Interpretation Comments UA pH (test code = UA pH) 6.5 1 5.0-8.0 [facility] DootonvMCXJWVXLFW6760-61-31 06:04:45734Uhzxcxoq HermannCHEM PANEL 2019-01-31 04:58:86483Bvaiosaq HermannCHEM DMTAG6809-10-63 04:58:008.9[facility] HermannCHEM OKYQQ2703-57-95 04:58:000.52[facility] HermannCHEM WHCSS0154-17-50 04:58:88295Ggvmherr HermannCHEM EPLTI4515-69-57 04:58:003.7[facility] HermannCHEM MKWST4756-86-56 04:58:15197Dgshcjmc HermannCHEM GPCFE8188-45-29 04:58:0026 [facility]annCHEM KWQOJ9278-85-02 04:58:0084[facility] HermannCHEM PANEL 2019-01-31 04:58:0010[facility] HermannCHEM GMXQH8510-49-68 04:58:0012.7[facility] IetzpxxQFHROPHMMA4129-99-27 04:58:003.4[facility] KslwhvzFVZMJVPEZU2984-61-72 04:58:0011.4[facility] ComqvzcDAXIHLYVEM0644-47-06 04:58:000.4[facility] PBWCIPRWZX0151-42-53 04:58:001.0[facility] JlgftmoANZORWUVEO0758-69-70 04:58:001+ *ABN*(01/30/19 11:58 PM)[facility] MmhtemoOGSOKMMTQQ0421-24-82 04:58:004.6[facility] SmoejmtLCUNWYBHLG3575-79-33 04:58:003.0[facility] QqhuxphGOQKRSIIYE9305-96-76 04:58:000.3[facility] RxabfdbGNZCOMJKTS3791-98-63 04:58:002+ *ABN*(01/30/19 11:58 PM)[facility] QxwwfasWFKSDWMJDL1988-56-82 04:58:001+ (01/30/19 11:58 PM)[facility] NridaitAJWOOFGJSQ4175-22-82 04:58:00Clumped (01/30/19 11:58 PM)[facility] CTWJBCSSUW6848-61-51 04:58:0051.3[facility] GtidowmMKNQHGQMOS0504-11-73 04:58:00 33.5[facility] PuftdiqYWCSDNHIMI5924-07-50 04:58:0031.7[facility] HermannHEMATOLOGY 2019-01-31 04:58:009.0[facility] ZtllpknWQBEWROEKP4597-97-47 04:58:004.32[facility] IxypcmaHETDBFHWMT4921-58-47 04:58:0010.1[facility] GehhikgZCTLAGYTXK8176-95-16 04:58:0073.4[facility] KibyvajVRUQBZQUGA7464-17-08 04:58:0031.9[facility] EZIKDBCKWB9671-99-76 04:58:00 Test Item Value Reference Range Interpretation Comments MCH (test code = MCH) 23.4 pg 27.0-31.0 [facility] XwhuxzqOSMZAVUYXD5752-36-85 04:58:0023.4[facility] HermannHEMATOLOGY 2019-01-31 04:58:00xxxxxxx (01/30/19 11:58 PM)[facility]URINE FBTO9971-46-18 08:38:00Negative (01/22/19 3:38 AM)[facility] HermannCHEM RBCTI4818-09-31 08:34:00 0.8[facility] UfjykpzTDCGFOEAQF4500-69-03 08:34:00 Test Item Value Reference Range Interpretation Comments PT (test code = PT) 13.3 s 12.0-14.7 [facility] QblgmiuBDJHGEQXKV1551-32-06 08:34:00 Test Item Value Reference Range Interpretation Comments INR (test code = INR) 1.03 1 0.85-1.17 [facility] GfoxedqJESKHXXWEY4421-44-78 08:34:00 Test Item Value Reference Range Interpretation Comments PTT (test code = PTT) 35.2 s 22.9-35.8 [facility] OSOZC4658-00-91 08:34:00Negative *NA*(01/22/19 3:34 AM) [facility] QYBOU3464-31-83 08:34:00Negative *NA*(01/22/19 3:34 AM) [facility] OCPNQ2788-32-08 08:34:00Negative (01/22/19 3:34 AM) [facility] HODHZ0360-73-57 08:34:00 Test Item Value Reference Range Interpretation Comments UA pH (test code = UA pH) 6.5 1 5.0-8.0 [facility] JESPA3165-85-41 08:34:00Small *ABN*(01/22/19 3:34 AM) [facility] BEGOX8409-03-78 08:34:00Negative (01/22/19 3:34 AM) [facility] UKNSL0531-27-62 08:34:000.2[facility] DAWNJ6450-88-33 08:34:00Small *ABN*(01/22/19 3:34 AM)[facility] QJOQZ7613-33-02 08:34:00Yellow *NA*(01/22/19 3:34 AM)[facility] INWLP0045-66-65 08:34:00 Test Item Value Reference Range Interpretation Comments UA Spec Grav (test code = UA Spec 1.020 1 Grav) [facility] HAKLJ6553-07-45 08:34:00Slight Cloudy (01/22/19 3:34 AM)[facility] HermannBLOOD BANK FKUQOID2820-05-05 08:08:00Negative (01/22/19 3:08 AM)[facility] BwhsfanEQNLWWENQJDP8567-50-08 08:08:0012.5[facility] ISBWCTEUUYEC5745-97-17 08:08:59007Bnldiciv IfahzzdJOGEKEZQXQTI2892-30-34 08:08:008.9[facility] GqpavbrFOQKDCBFNEWX8860-58-99 08:08:0026[facility] SFZMRQUGXULX7856-41-36 08:08:72383Wgkxwfvp UgatzuaVZQZHMCYVYDX9857-22-03 08:08:000.67[facility] VmcbozrZWFNFVDQEOYN7567-71-50 08:08:55326Cldfnxot [facility] HGAPLBRANEIW2015-21-37 08:08:003.5[facility] ShcgnktXZLWBIKMPMDB5936-97-78 08:08:0089[facility] JbagawqLOJQMRPPYYRX2759-21-12 08:08:0011[facility] PDBCHJOBRT2021-83-22 08:08:00----- (01/22/19 3:08 AM)[facility]annHEMATOLOGY 2019-01-22 08:08:0023.9[facility] IvipchvEZCPACUUAS8176-56-37 08:08:0073.7[facility] YhxvbixANMMYTDVDW7564-04-09 08:08:00 Test Item Value Reference Range Interpretation Comments MCH (test code = MCH) 23.2 pg 27.0-31.0 [facility] IndvrzfXCNRFMXUHC9294-46-44 08:08:0032.3[facility] HermannHEMATOLOGY 2019-01-22 08:08:0031.5[facility] PjjtxdkHGXQMFEACD6156-10-61 08:08:004.38[facility] ViubxhdJVCSIARPQF2835-75-98 08:08:0010.2[facility] DkjpjydKQERDMCESS1484-44-81 08:08:0010.6[facility] QczmrbhPNWRDSVMCW5640-65-60 08:08:005.7[facility] NTJELMFFBF0195-94-04 08:08:007.9[facility] BeulgzcNXFCYWYHKA0928-06-70 08:08:002.9 [facility] NiofkrdTKSBMBDOWG7471-62-76 08:08:006.2[facility]annHEMATOLOGY 2019-01-22 08:08:000.5[facility] EmxayxySSVBCRVOCA2472-88-36 08:08:0027.0[facility] CcfsihoDWXKTCFCXX7302-59-34 08:08:00Clumped (01/22/19 3:08 AM)[facility] QWTXSTBDZC1506-01-33 08:08:0058.9[facility] AlejrvePBYOAUUYYX8972-92-16 08:08:002+ *ABN*(01/22/19 3:08 AM)[facility] UynyckhGKGXNDSUQT1801-64-70 08:08:000.1[facility] WgaszocOWHIREOWGV6695-08-53 08:08:000.8[facility] VmrztrcKTHXTQJXOA7257-95-38 08:08:000.6[facility] OiccuatAATTZXUWTS6072-28-85 08:08:001+ *ABN*(01/22/19 3:08 AM)[facility] HermannCHEM YNSLY7727-22-55 10:17:000.51[facility] HermannCHEM PANEL 2019-01-15 10:17:009[facility] HermannCHEM LTLCO2411-76-48 10:17:36471Lftbcuyz HermannCHEM EDETT1207-10-87 10:17:0060[facility] HermannCHEM OVUNH3808-20-64 10:17:85466Ufyuhnis HermannCHEM IIRVA2079-22-02 10:17:0011.3[facility] HermannCHEM RXWPB6041-11-15 10:17:004.3[facility] HermannCHEM MKDIL8421-59-34 10:17:008.4 [facility]annCHEM KHGUD3774-86-05 10:17:0019[facility] HermannCHEM PANEL 2019-01-15 10:17:41980Rdpkqcos HermannCHEM YHRXM1111-52-13 23:22:000.53[facility] HermannCHEM QPEZK2136-49-54 23:22:90316Otmafipj HermannCHEM ZLWUW3945-05-47 23:22:0022[facility] HermannCHEM UZWIG8245-87-09 23:22:84338Fhqquasq HermannCHEM JKJGP0904-38-19 23:22:009.9[facility] HermannCHEM GGHDE1290-70-04 23:22:82511 [facility]annCHEM FKNIY3316-96-19 23:22:008.5[facility] HermannCHEM PANEL 2019-01-14 23:22:0089[facility] HermannCHEM QDOLV1872-53-92 23:22:007[facility] HermannCHEM QZIPM5190-29-77 23:22:002.9[facility] HsxscywBIUEVKZDPBVG4600-56-46 21:46:009.7[facility] XevqknhBTPJZGCDCZDD8800-38-25 21:46:0023[facility] JRXNOAYLHCYI3969-66-75 21:46:73331Rtzexvwe IfzqfzaYGNNRIFTIJSN7103-31-55 21:46:008.2[facility] IormyigXDBUEIOGVTHD3029-28-60 21:46:59449Abiqhslg [facility] DCCQZUVSRCQD2049-53-30 21:46:37549Ovqftjgp EqwjbaoFOJSQBGRQKCT9885-33-19 21:46:000.55[facility] WcmebzfUNMURCMKNMCO9481-67-54 21:46:0011[facility] SAVFVUCRPUBA8858-69-71 21:46:92501Evnllwpg HeiyrydCYIFGGGYAGVJ8101-09-07 21:46:003.7[facility] RjnlnucOUSFGFHHLN4449-96-17 21:46:0010.2[facility] AMIKACIN:SUSC:PT:ISOLATE:ORDQN:TMI1873-53-13 17:12:00Enterococcus Species [facility] CampusMIKACIN:SUSC:PT:ISOLATE:ORDQN:AQF9106-53-95 17:12:00Escherichia coliMemoriLost [facility] CenterOOD BANK KEZXWSR1917-73-34 13:53:00Negative (01/12/19 8:53 AM)[facility]] CBC (INCLUDES DIFF/PLT)2018-12-23 13:20:01 Test Item Value Reference Range Interpretation Comments WBC (test code = 8.9 {K/CMM} 3.7-10.4 6690-2) RBC (test code = 4.90 {M/CMM} 4.20-5.40 789-8) Hgb; Below Low 11.1 g/dl 12.0-16.0 Threshold (test code = 718-7) Hct; Below Low 34.8 % 36.0-48.0 Threshold (test code = 36261-0) MCV; Below Low 71.1 fL 80.0-98.0 Threshold (test code = 787-2) MCH; Below Low 22.8 pg 27.0-31.0 Threshold (test code = 785-6) MCHC (test code = 32.0 g/dl 32.0-36.0 786-4) RDW; Above High 25.0 % 11.5-14.5 Threshold (test code = 788-0) Platelet (test code See Note 133-450 Platelet s clumped in = 52334-9) EDTA, unable to estimate, sugge st recollection in a bluetop tube wi th an order for "Blue Top Platelet Count" Mean Platelet 8.6 fL 7.4-10.4 Volume (test code = 40850-5) [facility]] Ldbelyuwfwpq9321-62-92 13:20:01 Test Item Value Reference Range Interpretation Comments Segmented Neutrophils (test code 66.6 % 45.0-75.0 = 59807-9) Monocytes (test code = 36179-4) 8.6 % 2.0-12.0 Lymphocytes (test code = 55299-5) 21.0 % 20.0-40.0 Eosinophils (test code = 18858-0) 3.2 % 0.0-4.0 Basophils (test code = 706-2) 0.6 % 0.0-1.0 Segs-Bands # (test code = 5.9 {K/CMM} 1.5-8.1 37488-7) Lymphocytes # (test code = 1.9 {K/CMM} 1.0-5.5 34048-4) Monocytes # (test code = 47199-7) 0.8 {K/CMM} 0.0-0.8 Eosinophils # (test code = 0.3 {K/CMM} 0.0-0.5 50832-7) Basophils # (test code = 65446-7) 0.1 {K/CMM} 0.0-0.2 Plt Morphology (test code = Plt Clumped Normal Morphology) Anisocyte; Abnormal (test code = 1+ None Seen A 89579-6) Microcyte (test code = Microcyte) 2+ None Seen A [facility]] CULTURE, URINE, [id number] 13:20:01 Test Item Value Reference Range Interpretation Comments ORGANISM (test Acinetobacter code = 699-9) baumanniiEnterococcus Species FINAL REPORT 50,000 - 100,000 CFU/mL (test code = Acinetobacter baumannii , FINAL REPORT) Multi-drug Resistant Qvuzfrvh67,000 - 50,000 CFU/mL Enterococcus Species 10,000 - 50,000 CFU/mL Yeast [facility][H] [id number] 13:20:01 Test Item Value Reference Range Interpretation Comments ORGANISM (test code = Enterococcus 699-9) Species Ampicillin (test code - S = Ampicillin) Levofloxacin (test - R code = Levofloxacin) Nitrofurantoin (test - S code = Nitrofurantoin) Tetracycline (test - R code = Tetracycline) Vancomycin (test code SEE NOTES S S= Roxanne ceptible, = Vancomycin) R= Resistant, I= Intermediate, N/A= Not Applicable [facility][H] [id number] 13:20:01 Test Item Value Reference Range Interpretation [...] Tobramycin (test code = <=4 S Tobramycin) [facility][H] [id number] 13:20:01 Test Item Value Reference Range Interpretation Comments ORGANISM (test code = Acinetobacter baumannii 699-9) Colistin (test code = .38 S Colistin) Minocycline (test code 1.5 S = Minocycline) [facility] GGVHE3020-29-92 09:22:001.8[facility] CHEM MIAHJ9762-82-04 09:22:004.3[facility]annCHE[facility] WRVPX6177-73-37 09:22:47183 [facility] HermannCHEM HVROP0117-10-29 09:22:008.4[facility]annCHEM PANEL 2018-12-19 09:22:0026[facility]annCHE[facility] FCSGG6139-94-47 09:22:009.3[facility]annCHEM LORDM3876-31-97 09:22:003.7[facility] FEXXM6354-93-51 09:22:61725Lvocmegc [facility]annCHEM BLELI4860-95-06 09:22:000.3[facility]ann[facility] ASMJX6004-59-59 09:22:0075[facility] FRVKJ9555-33-80 09:22:003.1 [facility] JGCXS4892-69-24 09:22:0020[facility]ann[facility] PANEL 2018-12-19 09:22:0020[facility]ann[facility] USFJV5590-87-37 09:22:0086[facility]CHE[facility] BWLPQ3698-31-75 09:22:0011[facility] PVCMO0387-66-99 09:22:34800Xgptmenp [facility]annCHEM TCRRV7744-48-38 09:22:000.58[facility]annCHEM HSRQR3656-24-91 09:22:00 Test Item Value Reference Range Interpretation Comments A/G Ratio (test code = A/G Ratio) 0.6 1 0.7-1.6 [facility] HermannCHEM [id number] 09:22:00 Test Item Value Reference Range Interpretation Comments B/C Ratio (test code = B/C Ratio) 19 1 6-25 [facility] NAZGB6994-11-87 09:22:005.3[facility]annCHEM PANEL 2018-12-19 09:22:009.7[facility] AlaipilJZTHGIJKKZ1623-63-03 09:22:0031.3[facility] KesqlhzMCZYPXEGLF7371-91-26 09:22:0031.8[facility] AywqtbiNOIDVUKZXF2232-89-00 09:22:0069.8[facility] PckveeaKUARHAUQKH3876-09-85 09:22:00 Test Item Value Reference Range Interpretation Comments MCH (test code = MCH) 21.9 pg 27.0-31.0 [facility] HgiigxfNGKSZIAELX6170-82-58 09:22:0025.2[facility]annHEMATOLOGY 2018-12-19 09:22:0010.0[facility] NwazoglTIALEWZASN4709-98-69 09:22:006.7[facility] TuqvipyDILHGQVQND3580-54-68 09:22:004.56[facility] RrpcstmWLUWIETJBV7188-86-53 09:22:009.1[facility] TpbezndDXDGUOOGDR7743-13-36 09:22:0053.6[facility] ANAMFSCTBM0286-57-18 09:22:00Clumped (12/19/18 4:22 AM)[facility]annHEMATOLOGY 2018-12-19 09:22:002+ *ABN*(12/19/18 4:22 AM)[facility] TiyfklrYNXVJTEIII6512-28-60 09:22:001+ *ABN*(12/19/18 4:22 AM)[facility] GtemazbMNOSKYGZED9305-94-98 09:22:00 0.3[facility] CnakcpxWTKDGHNYVY0021-42-31 09:22:000.8[facility] HermannHEMATOLOGY 2018-12-19 09:22:002.0[facility] BbkqrdcUQPOCWWFUB9671-08-45 09:22:003.6[facility] IoeqpkjEJHCCPUKXF4992-81-05 09:22:000.5[facility] NbicccyLYNITOVMAB5212-01-97 09:22:004.2[facility] SzftjxjBDCCBDLVET6365-25-43 09:22:0011.8[facility] VCJVBYDKDF9563-95-05 09:22:0029.9[facility] HermannCHEM UFIOT2230-48-15 07:38:00 4.2[facility] HermannCHEM MSDVG0059-72-86 07:38:001.9[facility] HermannELECTROLYTES 2018-12-18 07:38:0011.9[facility] IjmuokjEJJHEYKKTBJO5706-96-59 07:38:00 Test Item Value Reference Range Interpretation Comments B/C Ratio (test code = B/C Ratio) 23 1 6-25 [facility] NhdsgdnRRQWMQMKQXVA9946-89-07 07:38:00 Test Item Value Reference Range Interpretation Comments A/G Ratio (test code = A/G Ratio) 0.6 1 0.7-1.6 [facility] ZtbtpjuFQTHDLJYLNEL3233-67-29 07:38:005.2[facility] HermannELECTROLYTES 2018-12-18 07:38:80201Huhfvxsw YnqdonzDMEQGMHLLVCQ8369-64-12 07:38:000.60 [facility] IneyovyFKQPWWJPITQT6858-94-82 07:38:0014[facility] HermannELECTROLYTES 2018-12-18 07:38:0017[facility] MlrjipmIPAVJKKAWPMK1631-45-72 07:38:003.1[facility] SljbyjmLIMKDFUNLQCG8621-64-03 07:38:000.2[facility] HixzjefTPUCSENZHAFD8334-32-95 07:38:0075[facility] KqvvfejAJTSAGVNMUCQ9004-36-92 07:38:0025[facility] EKTWCHZZFERV7291-29-54 07:38:0085[facility] WwdloczRCTOLRSVHHPI3600-21-09 07:38:00 143[facility] HagmzoiGJEMCIVUUCGZ4481-62-05 07:38:0015[facility] HermannELECTROLYTES 2018-12-18 07:38:05334Deopsmcv NhfkoguWPVRIRURKAMP4520-79-84 07:38:003.9[facility] VgrrevjTDIQRWIXSTRK5607-32-79 07:38:008.3[facility] WielzuxTFTOTUGFSNTG0147-72-40 07:38:009.3[facility] ZojrfcfDMCEVTATYB3975-24-46 07:38:005.5[facility] LSTQEKXVXN4268-99-15 07:38:009.9[facility] VisbcknINOGNFOYYC3583-28-12 07:38:00 4.44[facility] HgkmissEUAHDBYDTC1329-10-26 07:38:0030.8[facility] HermannHEMATOLOGY 2018-12-18 07:38:00 Test Item Value Reference Range Interpretation Comments MCH (test code = MCH) 22.2 pg 27.0-31.0 [facility] AiujtbiGCVXSQUSNE4106-17-44 07:38:0025.5[facility] HermannHEMATOLOGY 2018-12-18 07:38:0069.5[facility] DtkyhpgJCNXLKBXRE5653-93-46 07:38:0032.0[facility] RtpmtrvKLJLDWIZHI8893-63-63 07:38:008.7[facility] GoraloaEPDFQOPKMO8917-55-58 07:38:00xxxxxxx 1(12/18/18 2:38 AM)[facility] VixrsowJMYQIGTTMU5974-19-84 07:38:00 5.5[facility] WahlqkgMCCRHWPUSS9118-01-82 07:38:0013.1[facility] HermannHEMATOLOGY 2018-12-18 07:38:0026.4[facility] BvhaoxfZYVBNHSUQV4584-83-08 07:38:0054.3[facility] IfmkoupWAEHUVSPBA2754-87-45 07:38:000.7[facility] HmoocunNEWCCHKAVZ6757-53-60 07:38:001+ *ABN*(12/18/18 2:38 AM)[facility] SfjvaniXATLMTTYOS0555-39-33 07:38:002+ *ABN*(12/18/18 2:38 AM)[facility] IviptzxUBFWFPHBLR7483-56-10 07:38:000.3[facility] TpexiwuADZDMZNOAE9240-05-74 07:38:001.5[facility] EgtrhscHBEVONJBWX7845-69-98 07:38:003.0[facility] HjqlycsRMXCDWKYED3378-70-99 07:38:000.7[facility] HermannCHEM ESEXZ6698-13-94 09:36:002.0[facility] HermannCHEM ASCKI3088-42-98 09:36:004.4 [facility]annCHEM QHTJM2126-49-60 09:36:00 Test Item Value Reference Range Interpretation Comments A/G Ratio (test code = A/G Ratio) 0.6 1 0.7-1.6 [facility]annCHEM ZRMLH3994-79-85 09:36:005.2[facility] HermannCHEM PANEL 2018-12-17 09:36:00 Test Item Value Reference Range Interpretation Comments B/C Ratio (test code = B/C Ratio) 22 1 6-25 [facility] [id number] 09:36:0010.1[facility] PANEL 2018-12-17 09:36:29537Tsegsryz HermannCHEM TDFPS0224-59-73 09:36:000.59[facility] YSKRJ5823-18-61 09:36:0013[facility] QBEOS4662-09-66 09:36:45351Ycmbdidk HermannCHEM BJJMF3877-00-61 09:36:004.1[facility] AAKYH9920-63-52 09:36:008.3[facility] RPZOX6344-81-12 09:36:003.1 [facility] SIQDH2333-68-23 09:36:09280Ybqjngro HermannCHEM PANEL 2018-12-17 09:36:0024[facility]annCHE[facility] OHWBA0314-50-18 09:36:0018[facility] IMZRV3974-63-67 09:36:009.3[facility] IKURF8439-78-17 09:36:0082[facility] XOINH4987-76-01 09:36:0017[facility] QIQGC3920-12-55 09:36:0070[facility] ZFBOF4851-35-07 09:36:000.2 [facility] NsfzsqyYAHGKUPCOH3331-38-55 09:36:00xxxxxxx (12/17/18 4:36 AM)[facility] PnllvjaZJKDCJXWFG5056-40-41 09:36:00See Note 2(12/17/18 4:36 AM)[facility] TIRPSHSRGH5248-02-70 09:36:0031.4[facility] DemiioyKDUDVFUQRX8391-44-27 09:36:00 32.9[facility] EimwwiwLIMIBCSZQO3642-71-44 09:36:0069.9[facility]annHEMATOLOGY 2018-12-17 09:36:00 Test Item Value Reference Range Interpretation Comments MCH (test code = MCH) 22.0 pg 27.0-31.0 [facility] FszndjlBBFJBVDSWH9399-85-12 09:36:006.9[facility]annHEMATOLOGY 2018-12-17 09:36:004.70[facility] NmomvreNCLRCSPVQJ1680-80-38 09:36:0010.3[facility] TpdzyvkPUYXHYNWKW7471-45-80 09:36:0025.3[facility] CesrocjJGZFKBEMVB7796-01-03 09:36:002+ *ABN*(12/17/18 4:36 AM)[facility] IvgrtejUTZEESTRBL8620-26-85 09:36:00 0.9[facility] RhszmrbFZEBVTIUDC5883-15-32 09:36:000.4[facility]annHEMATOLOGY 2018-12-17 09:36:002.1[facility] SqtntknZHXJPPNCOE4118-87-34 09:36:001+ *ABN*(12/17/18 4:36 AM)[facility] BdgjmkyDTDBXFELIC9425-29-71 09:36:000.1[facility] AgjfpclGSRWGGNWGX5374-77-19 09:36:005.8[facility] HrumtnaEJGUDTQBRF5678-63-16 09:36:0030.7[facility] XudvqwzCRSQZMTSVL5041-20-96 09:36:0012.6[facility] OMSOPYPWMC3020-92-86 09:36:003.4[facility] TmzkjkpHGXHIXPQNI2834-03-55 09:36:000.9 [facility] PfgggwiWMQUFXJYFM5945-53-22 09:36:0050.0[facility]annHEMATOLOGY 2018-12-16 09:36:001-3 per HPF (12/16/18 4:36 AM)[facility]Y 2018-12-16 09:36:00Clumped (12/16/18 4:36 AM)[facility] ZmydzqgXVWSMCIBCT6883-77-10 08:46:00Clumped (12/15/18 3:46 AM)[facility] AMPICILLIN:SUSC:PT:ISOLATE:ORDQN:[id number] 11:24:00Proteus vulgarisMemorial HermannAMPICILLIN:SUSC:PT:ISOLATE:ORDQN:XBJ7890-09-02 11:24:00Enterococcus SpeciesMemorial HermannMOLECULAR TYAHYONOKG8934-21-07 11:24:00Not Detected (12/14/18 6:24 AM)[facility]LE[facility]ULAR JGGIHOKDAA4578-83-98 11:24:00Not Detected (12/14/18 6:24 AM)[facility]annMOLECULAR ELVLQPBLJP1035-37-24 11:24:00Not Detected (12/14/18 6:24 AM)[facility]ann[facility]LECULAR DIAGNOSTIC 2018-12-14 11:24:00Detected *ABN*(12/14/18 6:24 AM)[facility]LECULAR RNZGAYQIIC2550-04-21 11:24:00Not Detected (12/14/18 6:24 AM)[facility] MOLECULAR IIGMBJRRKN2715-61-64 11:24:00Not Detected (12/14/18 6:24 AM)[facility]annMOLECULAR OSOIAOFFEE4741-70-77 11:24:00Not Detected (12/14/18 6:24 AM) [facility] OQJIAQCBZC3945-25-07 11:24:00Not Detected (12/14/18 6:24 AM)[facility]annMOLECULAR FOJHDSVDQC7520-12-12 11:24:00Not Detected (12/14/18 6:24 AM)[facility]annMOLECULAR HEIIROZVKA5384-19-03 11:24:00Not Detected (12/14/18 6:24 AM)[facility]annMOLECULAR ILOOLMYWQY2437-92-79 11:24:00Not Detected (12/14/18 6:24 AM)[facility] DI[facility]IC 2018-12-14 11:24:00Not Detected (12/14/18 6:24 AM)[facility] KTRFTZVZDV3643-65-74 11:24:00Not Detected (12/14/18 6:24 AM)[facility] MOLECULAR WCPSVSTBGZ3768-85-33 11:24:00Not Detected (12/14/18 6:24 AM)[facility] HEKJXICZTF9769-38-99 11:24:00Not Detected (12/14/18 6:24 AM) [facility] QTIWT7214-93-53 09:23:00None Seen (12/14/18 4:23 AM) [facility] XBGXX4681-22-30 09:23:000.2[facility] SFXFW1376-53-46 09:23:00Small *ABN*(12/14/18 4:23 AM)[facility] HPDIB2629-79-61 09:23:00Large *ABN*(12/14/18 4:23 AM)[facility] SIJLB2041-53-79 09:23:00Negative (12/14/18 4:23 AM)[facility] PXIUW6488-16-75 09:23:00 Test Item Value Reference Range Interpretation Comments UA pH (test code = UA pH) 6.5 1 5.0-8.0 [facility] VJRDR5147-59-96 09:23:00 Test Item Value Reference Range Interpretation Comments UA Spec Grav (test code = UA Spec 1.020 1 Grav) [facility] CRNNQ4258-86-13 09:23:00Negative *NA*(12/14/18 4:23 AM) [facility] QRCHN6981-00-16 09:23:00Negative (12/14/18 4:23 AM) [facility] EEIXT5185-01-13 09:23:00Cloudy *ABN*(12/14/18 4:23 AM) [facility] BEIHU5333-24-95 09:23:00Yellow *NA*(12/14/18 4:23 AM) [facility] BrzkinxZCDGQDSLOQ2594-47-03 08:08:000.1[facility]annHEMATOLOGY 2018-12-14 08:08:001-3 per HPF (12/14/18 3:08 AM)[facility]annCHEM PANEL 2018-12-14 06:53:001.1[facility] HraixdkAZOSYKHIIP9939-83-92 06:53:000.1[facility] RtdsnpbHEIUEVKCCN0461-28-01 06:53:00Negative *NA*(12/14/18 1:53 AM)[facility] HermannMRI Pelvis with and without contrast [id number] 10:08:00Clinical indication: R58- excessive bleedingComparison: CT abdomen pelvis 04/12/2018TECHNIQUE: Multiplanar and multisequence magnetic resonance imaging of thepelvis were obtained with and without IV contrast.IV contrast: 13 mL DotaremFINDINGS:The inferior most portion of the pelvis including portions of the vagina andanal canal were not included on the scan field of view.Reproductive organs: The uterus is anteverted. There are multiple O4yzrktckscnf uterine fibroids. A 5.1 x 4.2 x [...] greater trochanteric bursitis.7. Left lower quadrant colostomy.SL: [id number]--Iulr by: Teresa Newsome MDDictated Date/time: 12/06/18 13:39Electronically Signed by: Teresa Newsome MD 12/06/1912:56FINAL REPORT [facility]] CMP W/[id number] 11:27:01 Test Item Value Reference Range Interpretation Comments Sodium Level 137 {mEq/l} 135-145 (test code = 2951-2) Potassium Level 4.2 {mEq/l} 3.5-5.1 (test code = 2823-3) Chloride Level 104 {mEq/l} 95-109 (test code = 2075-0) Carbon Dioxide 24 {mEq/l} 24-32 (test code = 2027-9) AGAP (test code = 13.2 {mEq/l} 10.0-20.0 63778-5) Glucose Lvl (test 95 mg/dl 70-99 Adult refe rence range code = 2345-7) values reflec t the clinical guidel inesof the [place] Diabet es Association. Creatinine Lvl 0.80 mg/dl 0.50-1.40 (test code = 2160-0) Blood Urea 14 mg/dl 7-22 Nitrogen (test code = 3094-0) BUN/Creatinine 18 6-25 Ratio (test code = 3097-3) Total Protein; 9.1 g/dl 6.4-8.4 Above High Threshold (test code = 2885-2) Albumin Lvl (test 3.7 g/dl 3.5-5.0 code = 1751-7) Globulin; Above 5.4 g/dl 2.7-4.2 High Threshold (test code = 32880-2) A/G Ratio (test 0.7 0.7-1.6 code = 1759-0) Calcium Level 9.9 mg/dl 8.5-10.5 Total (test code = 74327-5) ALT (test code = 23 u/l 0-65 3-4) AST (test code = 17 u/l 0-37 56894-5) Bili Total (test 0.2 mg/dl 0.2-1.3 code = 1974-2) Alk Phos (test 77 u/l 39-136 code = 1783-0) eGFR (test code = 107 The eGFR i s calculated 84011-1) {ML/MIN/1.7} using the CKD-E PI formula. In [...] be multiplied by t he estimated BMI. [facility]] CBC (INCLUDES DIFF/PLT)2018-11-28 11:27:01 Test Item Value Reference Range Interpretation Comments WBC (test code = 9.4 {K/CMM} 3.7-10.4 6690-2) RBC (test code = 5.19 {M/CMM} 4.20-5.40 789-8) Hgb; Below Low 11.6 g/dl 12.0-16.0 Threshold (test code = 718-7) Hct (test code = 36.4 % 36.0-48.0 52390-5) MCV; Below Low 70.1 fL 80.0-98.0 Threshold (test code = 787-2) MCH; Below Low 22.4 pg 27.0-31.0 Threshold (test code = 785-6) MCHC; Below Low 31.9 g/dl 32.0-36.0 Threshold (test code = 786-4) RDW; Above High 30.7 % 11.5-14.5 Threshold (test code = 788-0) Platelet (test code See Note 133-450 Platelet s clumped in = 85086-6) EDTA, unable to estimate, sugge st recollection in a bluetop tube an order for "Blue Top Platelet Count" Mean Platelet 8.2 fL 7.4-10.4 Volume (test code = 64380-0) [facility]] CULTURE, URINE, [id number] 11:27:01 Test Item Value Reference Range Interpretation Comments FINAL REPORT (test Specimen contains 3 or code = FINAL more potential pathogens; REPORT) recommend correlation withurinalysis; if catheterized specimen recommend removal and recollection. Ifclinical situation warrants please call the laboratory for further testing. COMicrobiology [phone]. [facility]iciansSURGICALLY OBTAINED CULTURE + GRAM [id number] 12:12:00 Test Item Value Reference Range Interpretation [...] No Interpretations Established <0 or >4 ANAEROBIC [id number] 05:31:00 Test Item Value Reference Range Interpretation Comments CULTURE (BEAKER) (test No anaerobes isolated code = 1095) URINE [id number] 11:06:00 Test Item Value Reference Range Interpretation [...] = 25) Resistant <0 or >4 URINE [id number] 11:03:00 Test Item Value Reference Interpretation Comments Range CULTURE (BEAKER) (test ENTEROCOCCUS A >100, 000 col/mL code = 1095) SPECIES Enterococcus species Ampicillin (test code S = 26) Linezolid (test code = S 40) Nitrofurantoin (test S code = 23) Tetracycline (test R code = 2) Vancomycin (test code S = 13) CULTURE (Cityscape ResidentialAKER) (test ESCHERICHIA COLI A 5 0-59,000 col/mL [...] Dr. lopez request for avycaz and zerbaxaCT, [id number] 07:41:00FINAL REPORT INDICATION:37-year-old female status post recent [...] and right sided urinary stones. Signed: Zoraida LozanoMDReport Verified Date/Time: 06/29/2018 07:41:57 Reading Location: [facility] Diagnostic Imaging Reading Room - [place] [address] W/PLT COUNT & AUTO [id number] 07:07:00 Test Item Value Reference Range Interpretation [...] (BEAKER) (test code = 2801) BASIC METABOLIC [id number] 06:01:00 Test Item Value Reference Range Interpretation [...] PATIEN TS. CBC W/PLT COUNT & AUTO [id number] 22:22:00 Test Item Value Reference Range Interpretation [...] 0-1 GRANULOCYTES-RELATIVE PERCENT (BEAKER) (test code = 2805) BASIC METABOLIC [id number] 21:08:00 Test Item Value Reference Range Interpretation [...] PATIEN TS. RAD, CHEST, 1 VIEW, NON [id number] 13:37:00Reason for exam:->eval for pneumothoraxReason for exam:->in [...] is present. No visualized fracture. 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 Signed: Elnea Pulido MDReport Verified Date/Time: 06/28/2018 09:43:00 Reading Location:[facility] Radiology Reading Room 09:43 AMBASIC METABOLIC [id number] 07:59:00 Test Item Value Reference Range Interpretation [...] APPLICABLE FOR DIALYSIS PATIEN TS. HEMOGLOBIN AND [id number] 14:41:00 Test Item Value Reference Range Interpretation Comments HEMOGLOBIN (BEAKER) (test code = 6.5 GM/DL 11.2-15.7 L 410) HEMATOCRIT (BEAKER) (test code = 23.1 % 34.1-44.9 L 411) BASIC METABOLIC [id number] 08:36:00 Test Item Value Reference Range Interpretation [...] PATIEN TS. CBC W/PLT COUNT & AUTO [id number] 05:49:00 Test Item Value Reference Range Interpretation [...] (BEAKER) (test code = 2801) HEMOGLOBIN AND [id number] 14:34:00 Test Item Value Reference Range Interpretation Comments HEMOGLOBIN (BEAKER) (test code = 7.0 GM/DL 11.2-15.7 L 410) HEMATOCRIT (BEAKER) (test code = 24.7 % 34.1-44.9 L 411) CBC W/PLT COUNT & AUTO [id number] 10:55:00 Test Item Value Reference Range Interpretation [...] (BEAKER) (test code = 2801) BASIC METABOLIC [id number] 06:21:00 Test Item Value Reference Range Interpretation [...] PATIEN TS. CBC W/PLT COUNT & AUTO [id number] 14:39:00 Test Item Value Reference Range Interpretation [...] = 2801) RAD, CHEST, 1 VIEW, NON [id number] 10:16:00Reason for exam:->Post Power PICC insertion RUE for tip verificationShould this be performed at the bedside?->YesFINAL REPORT AP chest HISTORY: PICC placement COMPARISON: None IMPRESSION:Right arm PICC present with tip at upper SVC. SVC filter present. Left-sided TYRE BUILDER shunt. Grossly normal cardiac silhouette. Right lung clear. Moderate left effusion. Signed: Satish Kerr VerifiedDate/Time: 06/25/2018 10:16:18 Reading Location: [address] Consult Reading Room BASIC METABOLIC [id number] 09:58:00 Test Item Value Reference Range Interpretation [...] PATIEN TS. CBC W/PLT COUNT & AUTO [id number] 13:38:00 Test Item Value Reference Range Interpretation [...] (BEAKER) (test code = 2801) BASIC METABOLIC [id number] 13:03:00 Test Item Value Reference Range Interpretation [...] PATIEN TS. BODY FLUID CULTURE + GRAM [id number] 16:53:00 Test Item Value Reference Interpretation Comments [...] blood (BEAKER) (test code = cells seen 346199) URINE [id number] 10:14:00 Test Item Value Reference Range Interpretation [...] Vancomycin (test code S = 13) BLOOD [id number] 11:00:00 Test Item Value Reference Range Interpretation Comments CULTURE (BEAKER) (test No growth in 5 days code = 1095) BLOOD [id number] 06:00:00 Test Item Value Reference Range Interpretation Comments CULTURE (BEAKER) (test No growth in 5 days code = 1095) BASIC METABOLIC [id number] 04:43:00 Test Item Value Reference Range Interpretation [...] DIALYSIS PATIEN TS. URINALYSIS W/ REFLEX URINE [id number] 15:11:00 Test Item Value Reference Range Interpretation Comments COLOR (BEAKER) (test code = 470) Blunt CLARITY (BEAKER) (test code = 469) Hazy [...] 68 /HPF MUCUS (BEAKER) (test code = 4924) Rare SOURCE(BEAKER) (test code = 5315) ANG, NEPHROSTOMY, PERC, EXTERNAL [id number] 13:43:00Reason for exam:- >right obstructing stone with UTI, needs right PCNU if possible or PCN if not FINAL REPORT Fluoroscopic and ultrasound guided right nephroureterostomy tube placement, 06/12/2018. Clinical History: Obstructing stone at the junction of the right distal ureter and ileoconduit with hydronephrosis and urosepsis. Patient has a history of spina bifida/caudal re gression. Modality: Sonography and fluoroscopy Smoking Tobacco Packer Hand: Faisal Felix MD. Electrocardiogram Technician: None. Sedation: General anesthesia provided by [...] then removed. The tract wasdilated to 8 [place]. An 8.5 [place] by 28 cm nephroureterostomy catheter was then [...] guided right nephroureterostomy tube placement. Signed: Faisal Felixort Verified Date/Time: 06/12/2018 13:43:17 Reading Location: [facility] P048 Angio Body Reading Room (HEMOGRAM ONLY)2018-06-12 [...] and blue (Citrate) tube. spoke to RN ID:[id number] NUCLEATED RED BLOOD 0 /100 WBC 0-0 CELLS (BEAKER) (test code = 413) BASIC METABOLIC [id number] 06:52:00 Test Item Value Reference Range Interpretation [...] S NOT APPLICABLE FOR DIALYSIS PATIEN TS. [id number] 06:37:00 Test Item Value Reference Range Interpretation [...] 2.5-3.5 for patients with mechanical heart valves.CT, [id number] 18:04:00FINAL REPORT CT scan of the abdomen [...] There is a perineal decubitus ulcer. Signed: Alma Jacobo MDReport Verified Date/Time: 06/11/2018 18:04:02 Reading Location: [address] Consult Reading Room PREGNANCY SCREEN, [id number] 15:46:00 Test Item Value Reference Range Interpretation Comments TEST URINE (BEAKER) (test Negative code = 583) URINALYSIS W/ REFLEX URINE [id number] 12:32:00 Test Item Value Reference Range Interpretation [...] SOURCE(BEAKER) (test code = 2795) URINALYSIS W/ [id number] 12:32:00 Test Item Value Reference Range Interpretation [...] code = Urine, Urostomy 2795) BASIC METABOLIC [id number] 06:01:00 Test Item Value Reference Range Interpretation [...] DIALYSIS PATIEN TS. LACTIC ACID, VENOUS, WHOLE [id number] 05:31:00 Test Item Value Reference Range Interpretation Comments LACTATE BLOOD VENOUS (2) (BEAKER) 0.8 mmol/L 0.5-2.2 (test code = 2872) Effective 01/01/2016: Units/Reference Range ChangeNew: 0.5-2.2 mmol/L Previous: 5-20 mg/[id number] 05:20:00 Test Item Value Reference Range Interpretation Comments PARTIAL THROMBOPLASTIN TIME 35.9 seconds 22.5-36.0 (BEAKER) (test code = 760) PROTHROMBIN TIME/[id number] 05:19:00 Test Item Value Reference Range Interpretation [...] code = 2801) LACTIC ACID, ARTERIAL, WHOLE [id number] 02:05:00 Test Item Value Reference Range Interpretation Comments LACTATE BLOOD 0.6 mmol/L 0.5-2.2 Specimen sligh tly ARTERIAL (2) (BEAKER) hemoly zed (test code = 2874) Effective 01/01/2016: Units/Reference Range ChangeNew: 0.5-2.2 mmol/L Previous: 5-20 mg/[id number] 01:43:00 Test Item Value Reference Range Interpretation Comments MAGNESIUM (BEAKER) 2.0 mg/dL 1.6-2.6 Specimen moderately (test code = 627) hemolyzed [id number] 01:43:00 Test Item Value Reference Range Interpretation Comments PHOSPHORUS (BEAKER) 3.0 mg/dL 2.3-4.7 Specimen moderately (test code = 604) hemolyzed COMPREHENSIVE METABOLIC [id number] 01:43:00 Test Item Value Reference Range Interpretation [...] PATIEN TS. CBC W/PLT COUNT & AUTO [id number] 01:20:00 Test Item Value Reference Range Interpretation [...] CT Abd Renal Protocol w/wo IV contrast [id number] 11:17:00Study: Abd Renal Protocol w/wo IV contrast [...] nonobstructive right nephrolithiasis.4. Moderate-sized left pleural effusion.SL: [id number] by: Faisal Calvert MDDictated Date/time: 06/02/18 12:50Electronically Signed by: Faisal Calvert MD 06/02/1813:00FINAL REPORTUn[facility][H] C Urine Transplant 2018-05-30 16:33:01 Test Item Value Reference Range Interpretation Comments ORGANISM (test code Escherichia = 699-9) coliEnterococcus Species FINAL REPORT (test >100,000 CFU/mL code = FINAL Escherichia coli 50,000 - REPORT) 100,000 CFU/mL Enterococcus Species .<10,000 CFU/mL Skin Raine [facility][H] [id number] 16:33:01 Test Item Value Reference Range Interpretation [...] Tetracycline (test code = - S Tetracycline) [facility][H] [id number] 16:33:01 Test Item Value Reference Range Interpretation Comments ORGANISM (test code = Enterococcus 699-9) Species Ampicillin (test code - S = Ampicillin) Levofloxacin (test - R code = Levofloxacin) Nitrofurantoin (test - S code = Nitrofurantoin) Tetracycline (test - R code = Tetracycline) Vancomycin (test code SEE NOTES S S= Roxanne ceptible, = Vancomycin) R= Resistant, I= Intermediate, N/A= Not Applicable [facility][H] Culture: Wound/Abscess w/Gram [id number] 16:33:01 Test Item Value Reference Range Interpretation Comments Gram St (test code Moderate WBC's Moderate = Gram St) Gram Negative Rods Moderate Gram Positive Cocci InClusters ORGANISM (test code Escherichia = 699-9) coliEnterococcus SpeciesProteus vulgaris FINAL REPORT (test Many Escherichia coli Many code = FINAL Enterococcus Species REPORT) Moderate Proteus vulgaris [facility][H] [id number] 16:33:01 Test Item Value Reference Range Interpretation [...] S e (test code = Trimethoprim/Sulfamethoxazol e) [facility][H] [id number] 16:33:01 Test Item Value Reference Range Interpretation Comments ORGANISM (test code = Enterococcus Species 699-9) Ampicillin (test code = <=2 S Ampicillin) Vancomycin (test code = 2 S Vancomycin) [facility][H] [id number] 16:33:01 Test Item Value Reference Range Interpretation [...] Trimethoprim/Sulfamet Interm ediate, hoxazole) N/A= Not Applicable [facility]] CALCIUM, [id number] 13:50:01 Test Item Value Reference Range Interpretation Comments Ca Ion Serum (test code = ) 1.28 mmol/L 1.00-1.38 Ca Norm Serum (test code = Ca 1.28 mmol/L 1.00-1.38 Norm Serum) [facility]] BUN/CREATININE RATIO W/[id number] 13:50:01 Test Item Value Reference Range Interpretation Comments Blood Urea 12 mg/dl 7-22 Nitrogen (test code = 3094-0) Creatinine Lvl 0.70 mg/dl 0.50-1.40 (test code = 2160-0) eGFR (test code = 110 The eGFR i s calculated 67599-0) {ML/MIN/1.7} using the CKD-E PI formula. In [...] be multiplied by t he estimated BMI. [facility][] [id number] 13:50:01 Test Item Value Reference Range Interpretation Comments Calcium Level Total (test code = 9.5 mg/dl 8.5-10.5 41561-4) [facility]] PTH, INTACT (WITHOUT CALCIUM)2018-05-11 13:50:01 Test Item Value Reference Range Interpretation Comments Parathyroid Hormone Intact (test 64.7 pg/ml 18.4-80.1 code = 2731-8) [facility]] CBC (INCLUDES DIFF/PLT)2018-05-11 13:50:01 Test Item Value Reference Range Interpretation Comments WBC (test code = 9.3 {K/CMM} 3.7-10.4 6690-2) RBC (test code = 5.02 {M/CMM} 4.20-5.40 789-8) Hgb; Below Low 11.5 g/dl 12.0-16.0 Threshold (test code = 718-7) Hct; Below Low 35.7 % 36.0-48.0 Threshold (test code = 19341-4) MCV; Below Low 71.2 fL 80.0-98.0 Threshold (test code = 787-2) MCH; Below Low 22.9 pg 27.0-31.0 Threshold (test code = 785-6) MCHC (test code = 32.1 g/dl 32.0-36.0 786-4) RDW; Above High 22.8 % 11.5-14.5 Threshold (test code = 788-0) Platelet (test code See Note 133-450 Platelet s clumped in = 60822-4) EDTA, unable to estimate, kayleen st recollection in a bluetop tube wi th an order for "Blue Top Platelet Count" Mean Platelet 8.9 fL 7.4-10.4 Volume (test code = 29561-3) [facility]] [id number] 13:50:01 Test Item Value Reference Range Interpretation Comments Segmented Neutrophils (test code 63.0 % 45.0-75.0 = 82794-6) Monocytes (test code = 97013-3) 9.5 % 2.0-12.0 Lymphocytes (test code = 21868-3) 23.6 % 20.0-40.0 Eosinophils (test code = 97824-1) 3.4 % 0.0-4.0 Basophils (test code = 706-2) 0.5 % 0.0-1.0 Segs-Bands # (test code = 5.9 {K/CMM} 1.5-8.1 23115-3) Lymphocytes # (test code = 2.2 {K/CMM} 1.0-5.5 32619-6) Monocytes #; Above High Threshold 0.9 {K/CMM} 0.0-0.8 (test code = 15751-5) Eosinophils # (test code = 0.3 {K/CMM} 0.0-0.5 10916-7) Plt Morphology (test code = Plt Clumped Morphology) Anisocyte; Abnormal (test code = 1+ None Seen A 42902-1) Microcyte (test code = Microcyte) 2+ None Seen A [facility]] VITAMIN D, 25-HYDROXY, LC/MS/[id number] 13:50:01 Test Item Value Reference Range Interpretation Comments Vitamin D, 25-OH, 33.5 ng/ml 30.0-100.0 Reference range is based Total (test code on recommen dations in the = Vitamin D, EndocrineSociet y Clinical 25-OH, Total) Practice Guide line (J Clin Endocrinol Bbgmv0017;96:19 11-1930) [facility] [id number] 16:26:00Negative (04/19/18 11:26 AM)[facility] [id number] 14:46:00Product available (04/19/18 9:46 AM)[facility] [id number] 09:54:002.1 [facility] [id number] 09:54:003.2[facility] PANEL 2018-04-18 09:54:08571Ezfndwnh HermannCHEM [id number] 09:54:0088[facility] [id number] 09:54:008.2[facility] [id number] 09:54:53710Woxetkvt HermannCHEM [id number] 09:54:0025[facility] [id number] 09:54:003.4[facility] [id number] 09:54:63342 [facility] [id number] 09:54:000.49[facility] PANEL 2018-04-18 09:54:007[facility]annCHEM HRSMC1561-05-47 09:54:0013.4[facility] UgsprqcSFZCKEMAXC8987-33-92 09:54:00See Note 2(04/18/18 4:54 AM)[facility] OHZTUBDRFG7101-38-81 09:54:00xxxxxxx (04/18/18 4:54 AM)[facility]annHEMATOLOGY 2018-04-18 09:54:006.0[facility] KpjimcuCBVSIAQIUM1967-72-60 09:54:003.18[facility] FbqzipgEXLHWGCBLK3910-54-12 09:54:007.0[facility] OwspngrDUFAUTGHSB2004-38-94 09:54:0022.4[facility] EnqyldtRPAZFMREXZ0679-44-64 09:54:0070.3[facility] EONWGOJMXJ3747-43-47 09:54:0031.2[facility] QxaezjpVLEWEXCDBA9993-03-28 09:54:00 23.1[facility] OcfynvqSLUFSQWZEU7092-58-52 09:54:00 Test Item Value Reference Range Interpretation Comments MCH (test code = MCH) 22.0 pg 27.0-31.0 [facility] QvgflnqKLYHWIGRCK5899-24-25 09:54:002+ *ABN*(04/18/18 4:54 AM)[facility] AernfhcBGJBKOVCKG0892-65-85 09:54:000.8[facility] NjixhtvHUHWYYKTDF6538-74-20 09:54:000.3[facility] JnciffjPAOPLNBOZE6527-27-15 09:54:001+ *ABN*(04/18/18 4:54 AM)[facility] LbabsnlCYMCFRSOMR6004-07-45 09:54:000.5[facility]annHEMATOLOGY 2018-04-18 09:54:003.4[facility] UlejlsrUVCRYWLPWM1053-71-39 09:54:0056.8[facility] OjtewaiMKBSOJMCDG9761-87-70 09:54:001.5[facility] McarqgnGJSWWUBNFJ2853-62-03 09:54:0024.5[facility] CznwhuyZUQIUMPDNF4791-16-01 09:54:0014.0[facility] XNESHPDZFG0459-49-89 09:54:004.2[facility] HermannCHEM NHBIZ4931-95-41 08:57:10677 [facility]annCHEM JFBOC1992-07-31 08:57:0079[facility]annCHEM PANEL 2018-04-17 08:57:006[facility]annCHEM VEEUK9399-37-61 08:57:000.38[facility]annCHEM XRNPR6459-21-57 08:57:06385Zanmeevb HermannCHEM HURJG9122-96-55 08:57:19062Pytmxyie HermannCHEM ZDCUL2623-52-42 08:57:0023[facility]annCHEM QQUPI1573-13-55 08:57:007.7[facility]annCHEM SQQQC9995-70-06 08:57:003.8 [facility]annCHE[facility] GOGXB7996-83-14 08:57:0014.8[facility]annCHEM PANEL 2018-04-17 08:57:002.8[facility]annCHE[facility] ORCGU9956-90-42 08:57:002.0[facility] WwuhcelFLSSFEHBLW4738-03-50 08:57:0022.4[facility] TnpmidbDBLUMIDXPD2256-94-49 08:57:0031.9[facility] FurlbbcDOPCQKWZJE3741-22-84 08:57:00 Test Item Value Reference Range Interpretation Comments MCH (test code = MCH) 22.1 pg 27.0-31.0 [facility] PposowhWUNOHOAWFI5445-51-09 08:57:007.1[facility]annHEMATOLOGY 2018-04-17 08:57:003.23[facility] BymopxcUPYJQVISSF1870-05-36 08:57:008.6[facility] ZctnpztKSKGEXYDAE4337-61-20 08:57:0022.4[facility] BipckgeLJUDKJYKXR2758-25-02 08:57:0069.4[facility] WllolffMFUIFZGYEA6256-33-26 08:57:00xxxxxxx (04/17/18 3:57 AM)[facility] WahsfscZSJLPVSKGA4686-68-10 08:57:00See Note 3(04/17/18 3:57 AM) [facility] GspqwccXWFUIOYJOR3947-96-69 08:57:002+ *ABN*(04/17/18 3:57 AM)[facility] ZchvljsQXYHJTOKKC5976-00-80 08:57:000.2[facility] YuevfhvWVZZYXRJQO3526-04-58 08:57:001+ *ABN*(04/17/18 3:57 AM)[facility] BzkduwxUBWMIHFUGS3416-26-22 08:57:00 1.1[facility] OptndfwMGRLSCRMVN9054-63-27 08:57:001.0[facility]annHEMATOLOGY 2018-04-17 08:57:0011.9[facility] NuzcgefALIEOMGGNV1360-05-67 08:57:0013.0[facility] GseqsnrUKVSMOUBMU7841-13-19 08:57:002.5[facility] TweeyqpWUOBXUVRBZ0522-64-45 08:57:0072.2[facility] ChqythkTKJRDUYQAU8943-63-16 08:57:000.4[facility] GCZXVYUGXU7025-53-12 08:57:006.2[facility]annCHEM MQZOJ3311-00-63 09:58:001.9 [facility]annCHEM LPOQC4042-47-45 09:58:0069[facility]annCHEM PANEL 2018-04-16 09:58:000.3[facility]annCHEM VAWYO2507-15-59 09:58:00<0.1 [facility]annCHEM CWNLJ2826-61-56 09:58:0010[facility]annCHEM PANEL 2018-04-16 09:58:0011[facility]annCHEM PXGOL8915-73-10 09:58:00 Test Item Value Reference Range Interpretation Comments A/G Ratio (test code = A/G Ratio) 0.5 1 0.7-1.6 [facility]annCHE[facility] LOFTZ6166-39-73 09:58:002.0[facility]annCHEM PANEL 2018-04-16 09:58:004.3[facility]annCHEM VLOTW3615-60-82 09:58:006.3[facility]annCHE[facility] AFJNS2714-95-35 09:58:002.2[facility]annCHEM HUSUZ4220-88-28 09:58:002.5[facility] CwkbfsdWSTAESBSINLO5983-77-23 09:58:0015.2[facility] EZBMVPQTVKZV7677-44-39 09:58:39769Cbhkqvia AyxhuavQUNIASMFJXAJ7056-83-62 09:58:0084[facility] JxknrjcBQAGLJWTUBRQ9211-11-52 09:58:005[facility] FECMWLKTEVPZ5311-53-46 09:58:000.39[facility] ZjrdwclQWNIANKCNEHY7149-40-50 09:58:57737Yxjhpnjg LgwzfxlRUMJMBRBNHYN8001-94-66 09:58:003.2[facility] LBJZPSFHMAPS3038-79-36 09:58:79224Tltvvfun NilqdhxKERVLVEYGIBA3525-89-31 09:58:0021[facility] HteyhffEPFXPQAYQQKG7373-67-99 09:58:007.7[facility] STXUYHMEQN9561-97-37 09:58:0011.7[facility] HrurtctYUEQLUBMYV3821-39-52 09:58:00 74.5[facility] KoikriqRQOWWTQVTW1683-43-33 09:58:002+ *ABN*(04/16/18 4:58 AM) [facility] EfrwjigGGUIEZIZGN5059-26-99 09:58:001+ *ABN*(04/16/18 4:58 AM)[facility] XnibjyoNDPALFFMIR6711-37-09 09:58:000.2[facility] YzlytrvKPRPTNOOAR7546-20-27 09:58:001.3[facility] UexeqgeIYMLLFTDJS6665-86-00 09:58:001.3[facility] ECWVCBCYKI8023-22-43 09:58:000.3[facility] HtadynzLWXLHMLDUK4039-79-03 09:58:00 11.8[facility] IzxgnukKABWLFMTAY5466-33-38 09:58:008.3[facility] HermannHEMATOLOGY 2018-04-16 09:58:001.7[facility] QrhccisQXGTGSESGV6725-70-10 09:58:00xxxxxxx (04/16/18 4:58 AM)[facility] LjuyahePYFBFKMQAU2309-32-26 09:58:00See Note 4(04/16/18 4:58 AM)[facility] EfemmabLXEFYCAAEA4863-53-61 09:58:00 Test Item Value Reference Range Interpretation Comments MCH (test code = MCH) 22.2 pg 27.0-31.0 [facility] UatcqwvCLMXXVTPUY4311-63-98 09:58:0070.2[facility]annHEMATOLOGY 2018-04-16 09:58:0022.3[facility] PmftjyhXPCPZSTGVU1877-53-37 09:58:0031.5[facility] XtmtjfnJNYSAPIYFQ9917-46-10 09:58:0022.6[facility] ZryaowcOHKJLLGQVP2663-58-99 09:58:007.1[facility] KnfelzcTSRGZTTDQF0057-28-32 09:58:003.21[facility] MNOHQSZMHL7808-83-15 09:58:0011.2[facility]annURINE AND CLSZP5134-55-93 09:58:00 Test Item Value Reference Range Interpretation Comments UA pH (test code = UA pH) 6.5 1 5.0-8.0 [facility] RMMSL9275-29-05 09:58:00Yellow *NA*(04/16/18 4:58 AM) [facility] KLNSE6327-78-82 09:58:00Slight *ABN*(04/16/18 4:58 AM) [facility] WQBMI7829-83-82 09:58:00 Test Item Value Reference Range Interpretation Comments UA Spec Grav (test code = UA Spec 1.010 1 Grav) [facility] LLDQJ4362-38-52 09:58:0024[facility] KPKBH8020-63-65 09:58:00>182[facility] AGCFX2897-84-14 09:58:00Negative *NA*(04/16/18 4:58 AM)[facility] WUDYJ7313-25-97 09:58:00Moderate *ABN*(04/16/18 4:58 AM)[facility] QPSOU7213-49-01 09:58:00Large *ABN*(04/16/18 4:58 AM)[facility] MTDUI1165-81-45 09:58:00Negative (04/16/18 4:58 AM)[facility]annBODY WUIEWT5771-76-63 15:34:00 Pleural *NA*(04/15/18 10:34 AM)[facility]annB[facility] GOUUYQ3264-86-06 15:34:000.4 [facility]annB[facility] QNZBTT0645-38-73 15:34:00Clear (04/15/18 10:34 AM)[facility]annB[facility] OXZBDH8507-98-56 15:34:0014[facility]annB[facility] XLBHBI1092-46-68 15:34:00Light Yellow *ABN*(04/15/18 10:34 AM)[facility]annB[facility] FLUIDS 2018-04-15 15:34:00Light Yellow (04/15/18 10:34 AM)[facility]annB[facility] FLUIDS 2018-04-15 15:34:00Pleural (04/15/18 10:34 AM)[facility]annB[facility] FLUIDS 2018-04-15 15:34:0012[facility]annB[facility] ROZBXT1928-82-65 15:34:0011[facility]annB[facility] IECVYU9150-58-91 15:34:0077[facility]annB[facility] YFGPPB0051-02-97 15:34:0020[facility]annB[facility] RLZEBS4458-93-61 15:34:00Pleural *NA*(04/15/18 10:34 AM)[facility] EMCUAA8194-74-40 15:34:000.8[facility]annB[facility] FGXDBJ4820-77-40 15:34:00Pleural *NA*(04/15/18 10:34 AM)[facility]annB[facility] EAIVMH8096-05-95 15:34:33873Wasvggfl HermannBODY TGRORV0202-85-71 15:34:00 Pleural *NA*(04/15/18 10:34 AM)[facility]annB[facility] FXWACA6946-64-66 15:34:0017 [facility]annCHEM TTWDD8727-00-14 05:02:96150Kojzppix HermannHEMATOLOGY 2018-04-15 05:02:00 Test Item Value Reference Range Interpretation Comments INR (test code = INR) 1.12 1 0.85-1.17 [facility] HaldmkqVIXWPUOANE8216-26-20 05:02:00 Test Item Value Reference Range Interpretation Comments PT (test code = PT) 14.4 s 12.0-14.7 [facility] EurnoiePYIAEMWTIY6011-06-93 05:02:00Clumped (04/15/18 12:02 AM)[facility] FvdacfcVKEONDYVUU4565-04-56 05:02:00 Test Item Value Reference Range Interpretation Comments PTT (test code = PTT) 30.5 s 22.9-35.8 [facility]annCHEM FUZDP2362-22-94 22:54:95823Rzdpxsml HermannHEMATOLOGY 2018-04-14 22:54:00 Test Item Value Reference Range Interpretation Comments PT (test code = PT) 14.1 s 12.0-14.7 [facility] BxiuuhcOZPXRGQSJC5247-67-61 22:54:00 Test Item Value Reference Range Interpretation Comments INR (test code = INR) 1.09 1 0.85-1.17 [facility] DlihpieRFAKCGBAYZ2187-16-55 22:54:00 Test Item Value Reference Range Interpretation Comments PTT (test code = PTT) 33.3 s 22.9-35.8 [facility] JlfvnkgFCJONNZCVR7657-05-92 15:21:00 Test Item Value Reference Range Interpretation Comments PTT (test code = PTT) 43.9 s 22.9-35.8 [facility] TminmpzQBYAUHBTFS2358-87-73 06:01:000.0[facility]annHEMATOLOGY 2018-04-14 06:01:000.0[facility] HermannPARATHYROID XDFKNKF6334-84-14 06:01:001.19 [facility]annPARATHYROID YCQRSIQ1612-23-46 06:01:001.18[facility] MBTJVKGKSO4808-97-66 11:43:08647Yuhxqaif VouubkcZWPJXEAKOK2745-40-91 11:16:000.0 [facility] TejwpgwUMSBTBNYHD7919-06-76 11:16:002.0[facility]annHEMATOLOGY 2018-04-13 11:16:00 Test Item Value Reference Range Interpretation Comments INR (test code = INR) 1.23 1 0.85-1.17 [facility] WxvqtmoKXMCJFCDGX1691-07-90 11:16:00 Test Item Value Reference Range Interpretation Comments PT (test code = PT) 15.6 s 12.0-14.7 [facility]annPARATHYROID UMUBNLL4215-08-09 11:16:000.99[facility] PARATHYROID KZBKMAV6233-22-44 11:16:001.01[facility] FrnvneiKUGKJOJIYE9906-09-50 02:49:00Clumped (04/12/18 9:49 PM)[facility] YumcsyrNRCGLMPKWK7563-09-96 02:49:00 0.0[facility] CzrtfyzEAKOCPCPRE1009-66-77 02:49:004.0[facility] HermannHEMATOLOGY 2018-04-12 18:35:49409Ctfsmshn HermannPARATHYROID DQXTLAK8553-01-97 17:30:001.03 [facility] HermannPARATHYROID BNKOFYM8888-40-26 17:30:001.06[facility] HermannANEMIA DCPNB4516-28-88 14:28:0034[facility] HermannANEMIA FYKKN0275-36-07 14:28:75838 [facility]annANEMIA JBHIS4982-69-87 14:28:003[facility] HermannANEMIA STUDY 2018-04-12 14:28:0010[facility] HermannANEMIA MJFBJ3910-37-44 14:28:42723Ibbjpwls HermannCHEM IKDZU6511-26-54 14:28:73737Kjqnbaun OwouprcDGHLCUKKVX1609-84-57 14:28:001-3 per HPF (04/12/18 9:28 AM)[facility] TrcugebMXONWNPYAJ6293-57-38 14:28:001.84[facility] AitkhpqSPQBZPTHPK1842-72-00 14:28:01304Jaolphvz [facility] UXNACULOES3051-14-23 14:28:23098Xcerynax [facility] NITROFURANTOIN:SUSC:PT:ISOLATE:ORDQN:MPP1217-07-64 08:15:00Escherichia coli [facility] HermannNITROFURANTOIN:SUSC:PT:ISOLATE:ORDQN:MNQ8113-23-20 08:15:00 Pseudomonas aeruginosaMemorial HermannNITROFURANTOIN:SUSC:PT:ISOLATE:ORDQN:CAPRICE 2018-04-12 08:15:00Enterococcus SpeciesMemorial HermannCHEM GNOMH7130-01-51 07:51:001.2[facility]annCHEM DRVDG6330-84-10 07:51:98713.56[facility] CHEM ZUVCF2043-59-49 07:51:001.0[facility] HermannCHEM NJGUH4341-10-67 07:51:0052 [facility]annCHEM AYGFL4731-79-60 07:51:0013[facility] HermannCHEM PANEL 2018-04-12 07:51:0016[facility] HermannCHEM ZYMXG5683-31-77 07:51:002.7[facility] HermannCHEM GTVTN4009-55-76 07:51:007.2[facility]annCHEM MZXVD4265-86-51 07:51:00 Test Item Value Reference Range Interpretation Comments A/G Ratio (test code = A/G Ratio) 0.6 1 0.7-1.6 [facility]annCHEM BBBYG1041-92-62 07:51:004.5[facility] HermannCHEM PANEL 2018-04-12 07:51:00 Test Item Value Reference Range Interpretation Comments B/C Ratio (test code = B/C Ratio) 17 1 6-25 [facility] XkjohmdPRXRYVGRMQ4272-26-37 07:51:00Moderate *ABN*(04/12/18 2:51 AM) [facility] MqeqglfISGNAYUGBZ6496-95-17 07:51:00Moderate *ABN*(04/12/18 2:51 AM) [facility] UglztqiIFKJLKEYAQ1033-74-33 07:51:001-3 per HPF (04/12/18 2:51 AM) [facility] CdodqflZQAIIGDQAA3852-93-58 07:51:00Clumped (04/12/18 2:51 AM)[facility] HermannMOLECULAR IYMIYIDSPJ4968-94-95 07:51:00Not Detected (04/12/18 2:51 AM) [facility]annMOLECULAR LSDISIAFBD6025-16-30 07:51:00Not Detected (04/12/18 2:51 AM)[facility] HermannMOLECULAR ZTTQYARBAY8799-20-58 07:51:00Not Detected (04/12/18 2:51 AM)[facility] HermannMOLECULAR FFLXXJKFZL3109-94-60 07:51:00Not Detected (04/12/18 2:51 AM)[facility] HermannMOLECULAR PVZRGMXYSK6831-57-16 07:51:00Not Detected (04/12/18 2:51 AM)[facility]annMOLECULAR DIAGNOSTIC 2018-04-12 07:51:00Not Detected (04/12/18 2:51 AM)[facility] HermannMOLECULAR ZZHDFJHHJX8294-24-99 07:51:00Not Detected (04/12/18 2:51 AM)[facility] MOLECULAR SFAINTTNMO2433-88-83 07:51:00Not Detected (04/12/18 2:51 AM)[facility] HermannMOLECULAR KBZVHNMIOW3022-86-03 07:51:00Not Detected (04/12/18 2:51 AM) [facility]annMOLECULAR DKGFOBXISK7030-22-77 07:51:00Not Detected (04/12/18 2:51 AM)[facility]annMOLECULAR YQDCGEVCBC9940-55-37 07:51:00Not Detected (04/12/18 2:51 AM)[facility]annMOLECULAR WKCHXYQDOU2505-13-00 07:51:00Not Detected (04/12/18 2:51 AM)[facility]annMOLECULAR PSNBGBNXNO2388-44-60 07:51:00Not Detected (04/12/18 2:51 AM)[facility]annMOLECULAR DIAGNOSTIC 2018-04-12 07:51:00Detected *ABN*(04/12/18 2:51 AM)[facility] FGKXK4830-83-65 07:51:004[facility] KRKHV3517-96-60 07:51:0017 [facility] QUWSC5656-70-55 07:51:00Large *ABN*(04/12/18 2:51 AM) [facility] SNAHW5056-88-36 07:51:00Negative *NA*(04/12/18 2:51 AM) [facility] OXNLH9029-83-75 07:51:00Positive *ABN*(04/12/18 2:51 AM)[facility] MADAY6626-94-90 07:51:00Trace *ABN*(04/12/18 2:51 AM)[facility] FRJWM4763-62-06 07:51:00 Test Item Value Reference Range Interpretation Comments UA Spec Grav (test code = UA Spec 1.008 1 Grav) [facility] GTNEU6614-15-97 07:51:00Light Yellow *NA*(04/12/18 2:51 AM)[facility] XDHGF5856-32-07 07:51:00 Test Item Value Reference Range Interpretation Comments UA pH (test code = UA pH) 5.5 1 5.0-8.0 [facility] SJAFN3137-45-97 07:51:00Clear (04/12/18 2:51 AM) [facility] KIUQ2180-76-65 07:51:00Negative (04/12/18 2:51 AM)[facility] HermannCHEM HLDXC9358-93-91 06:02:70284Pfbimeok HermannCHEM WGFBN5238-97-75 06:02:008.2[facility]annCHEM RIZRG2698-26-95 06:02:0015.1[facility] HermannCHEM WOCWK8762-28-85 06:02:0020[facility]annCHEM UPTHT6278-92-97 06:02:0089 [facility]annCHEM TBMIQ1888-32-76 06:02:007[facility] HermannCHEM PANEL 2018-03-03 06:02:000.56[facility] HermannCHEM PLQZF1409-43-92 06:02:84961Mvgifotk HermannCHEM IGDKH3632-76-05 06:02:44978Jhtlhtkh HermannCHEM YPJCT2804-62-98 06:02:003.1[facility] TmozkduGZBGCZOTSZ3682-91-21 06:02:000.9[facility] UAOMFGATJY0171-10-79 06:02:007.7[facility] YzqbnqrSBARHDNQDK7975-44-52 06:02:000.1 [facility] ApdimgaDAHCNOVFSX1153-85-47 06:02:000.7[facility] HermannHEMATOLOGY 2018-03-03 06:02:000.3[facility] DmvlhzcRTLNQNIMKK4477-86-62 06:02:009.1[facility] OobwaqtCXFHFFXOXS4926-00-43 06:02:0082.2[facility] AxszcxpMOSWGFBLPH4699-52-24 06:02:002+ *ABN*(03/03/18 1:02 AM)[facility] RkaocrqVFSAPCFPMK6643-98-24 06:02:001.1 [facility] GgxjwlsEGJFPTCKAS2915-11-94 06:02:009.9[facility] HermannHEMATOLOGY 2018-03-03 06:02:009.2[facility] LozeatbXWATZBTNHB5190-19-69 06:02:0029.9[facility] NkrezvwMNPRNASBXN9526-61-94 06:02:0012.1[facility] BbcpkmpIOTWNRWNUY4367-55-32 06:02:004.18[facility] HisybuoDURMJHTPGL5408-04-94 06:02:0071.6[facility] HQUSOBJPIB9715-91-39 06:02:0019.9[facility] WtckjebXCRGRLLQYB5963-90-26 06:02:00 Test Item Value Reference Range Interpretation Comments MCH (test code = MCH) 22.1 pg 27.0-31.0 [facility] VhfooufIEPECOHIUV7475-26-74 06:02:0030.9[facility] HermannHEMATOLOGY 2018-03-03 06:02:00xxxxxxx (03/03/18 1:02 AM)[facility] IbamsmzRGTVELZBSX8210-52-21 06:02:00See Note 2(03/03/18 1:02 AM)[facility] HermannCHEM QWMQP3985-00-28 07:10:00 98[facility] HermannCHEM BIENU6241-58-74 07:10:46900Apgnvhaw HermannCHEM PANEL 2018-03-02 07:10:004.0[facility] HermannCHEM MUOSR2474-24-68 07:10:0012[facility] HermannCHEM KAHOA5068-75-90 07:10:000.87[facility] HermannCHEM NQKRY3838-60-14 07:10:05966Ryoshmff HermannCHEM DVBEC2891-56-72 07:10:0019[facility] HermannCHEM THYWM3825-89-48 07:10:0017.0[facility] HermannCHEM XCJAK9362-55-97 07:10:008.3 [facility] HermannCHEM CCSNY7949-32-92 07:10:94790Kpwbfpno HermannHEMATOLOGY 2018-03-02 07:10:00See Note 3(03/02/18 2:10 AM)[facility] HermannHEMATOLOGY 2018-03-02 07:10:00See Note (03/02/18 2:10 AM)[facility] GoficiwIVMEPDAEJV1501-61-23 07:10:004.38[facility] TmgdfwhLENEDBPZFW4953-92-59 07:10:0016.5[facility] EOTGMNTQZL9524-11-05 07:10:0072.6[facility] KnefgyyWCELUHOXTI9580-08-84 07:10:00 31.8[facility] FgpiklvLKBHTCDMOY7729-72-07 07:10:0030.7[facility] HermannHEMATOLOGY 2018-03-02 07:10:00 Test Item Value Reference Range Interpretation Comments MCH (test code = MCH) 22.3 pg 27.0-31.0 [facility] NwfbwktERMCKCHGHD0915-85-62 07:10:009.8[facility] HermannHEMATOLOGY 2018-03-02 07:10:0020.1[facility] DzcupouBVYYIIDRBI3051-02-80 07:10:004.9[facility] OiafcsaMWUVLMRFYK6757-67-86 07:10:0015.1[facility] DaujbsuYBPYQCGINO2228-05-38 07:10:003.8[facility] NqlarkxFUAYUOFFIN1894-52-40 07:10:0091.2[facility] YHRUCWATKG2764-13-05 07:10:000.1[facility] YeopctrQURUAMXNPY1594-96-88 07:10:000.6 [facility] KkvoxneQSGFOMUAIH4617-05-97 07:10:000.8[facility] HermannHEMATOLOGY 2018-03-02 07:10:002+ *ABN*(03/02/18 2:10 AM)[facility] UlmyoroXGXGZXKWRC9051-98-77 07:10:00See Note 5(03/02/18 2:10 AM)[facility] LavkgzjPIUMXKJVCK7906-69-99 07:10:00 Moderate *ABN*(03/02/18 2:10 AM)[facility] TlomsxfOEAXVCAEAP4090-09-61 07:10:00 Clumped (03/02/18 2:10 AM)[facility] JkplxwxAGGECNBSAEGMJ1499-83-72 19:36:00<1 [facility] NsxucamHAPKSELDUR0421-38-72 19:17:00 Test Item Value Reference Range Interpretation Comments INR (test code = INR) 1.33 1 0.85-1.17 [facility] XbgvqnxNVUMJSZPJD8077-49-44 19:17:00 Test Item Value Reference Range Interpretation Comments PT (test code = PT) 16.6 s 12.0-14.7 [facility] HermannCHEM PEFER9553-72-78 08:34:011.5[facility] HermannCHEM PANEL 2018-03-01 08:34:010.3[facility] HermannCHEM VKCWR1340-03-44 08:34:0123[facility] HermannCHEM JVDKP7526-40-91 08:34:0121[facility] HermannCHEM MSQWN8579-96-32 08:34:010.1[facility] HermannCHEM IHWGT2532-91-30 08:34:0151[facility] HermannCHEM LBFYX3494-55-80 08:34:010.4[facility] HermannCHEM ABLWG8338-51-15 08:34:013.4 [facility] HermannCHEM PUVWR4531-03-53 08:34:018.2[facility]annCHEM PANEL 2018-03-01 08:34:01 Test Item Value Reference Range Interpretation Comments A/G Ratio (test code = A/G Ratio) 0.7 1 0.7-1.6 [facility] HZHKD1977-92-49 08:34:014.8[facility]annELECTROLYTES 2018-03-01 08:34:0115.1[facility] IastxapLISVHDQEJGVX7623-01-64 08:34:0188[facility] TveccsdZOEZODYVLNGM7629-90-43 08:34:0121[facility] ZlyudwrQGNEKLKSHFNG2670-24-08 08:34:018.6[facility] AdpwtnxLZFXVDIKNGRX7431-10-90 08:34:014.1[facility] FCVYGTPWJERX8355-46-31 08:34:20237Ixectbcm SahgsvvZCJGSSHKWTQX4302-15-81 08:34:010.95[facility] JaaohetEUHFQPQBWTCW8879-83-99 08:34:0117[facility] LIIKACGYCNVN2678-37-19 08:34:09133Bwcnnypz UgycupsPNSQBFPXMCYR9153-35-32 08:34:92127Yltsbzac RlpmuenUBNDJVCDRP4769-10-32 08:34:012+ *ABN*(03/01/18 3:34 AM) [facility] ZfabeuxQSSPVDLWEL9938-36-80 08:34:010.1[facility]annHEMATOLOGY 2018-03-01 08:34:015.8[facility] AavkutyBKLORXEHVH3657-49-69 08:34:0190.6[facility] QforztnBYBKBBACOH5198-84-77 08:34:013.3[facility] TrfrqaiEEMAJCEHCD9144-79-25 08:34:0122.3[facility] GebdhoqFHVATTYLFR5661-94-07 08:34:010.8[facility] LPVJNAYYAE0458-08-97 08:34:010.2[facility] FgbxnzwYNQABCQIVD5902-01-43 08:34:010.1 [facility] GccqszuAKZTWZIIVZ2323-25-94 08:34:011.4[facility]annHEMATOLOGY 2018-03-01 08:34:011+ (03/01/18 3:34 AM)[facility] DurgzvdOHOVRNBLYO3902-41-51 08:34:80307Fenaprag ZyfsjktGFFTRPWHVS3135-75-95 08:34:01 Test Item Value Reference Range Interpretation Comments MCH (test code = MCH) 22.3 pg 27.0-31.0 [facility] DwfafioKSWXRCDYTL9203-34-96 08:34:0131.1[facility]annHEMATOLOGY 2018-03-01 08:34:0133.6[facility] AboialvPHDQIJBLKM2251-67-99 08:34:0110.4[facility] RvgpawlKYLFCLVXUT3101-97-54 08:34:0124.6[facility] CiagihdUPYQNFVXJU2778-51-92 08:34:014.68[facility] UbdtkkpMXPBBWITLR1513-22-47 08:34:0171.8[facility] KSKQSXZCIP2390-31-52 08:34:0119.6[facility] NymhfygUUDNHERIGU4974-08-37 08:34:01 See Note 1(03/01/18 3:34 AM)[facility] ElbajjoTRWZXDVHCB2564-38-60 08:34:01See Note 4(03/01/18 3:34 AM)[facility] RETQI0401-35-39 08:28:53Small *ABN*(03/01/18 3:28 AM)[facility] EBPRP6563-35-24 08:28:53 Test Item Value Reference Range Interpretation Comments UA pH (test code = UA pH) 8.0 1 5.0-8.0 [facility] WJQPM5002-54-78 08:28:53 Test Item Value Reference Range Interpretation Comments UA Spec Grav (test code = UA Spec 1.010 1 Grav) [facility] OHPVL7141-95-71 08:28:53Negative (03/01/18 3:28 AM) [facility] OSLIL9035-36-30 08:28:53Trace *ABN*(03/01/18 3:28 AM) [facility] KVZOR9433-12-02 08:28:53Cloudy *ABN*(03/01/18 3:28 AM) [facility] SPVUA6280-16-72 08:28:53Yellow *NA*(03/01/18 3:28 AM) [facility] QTFVD5082-75-58 08:28:53Small *ABN*(03/01/18 3:28 AM) [facility] NSUOU3611-63-70 08:28:53Negative *NA*(03/01/18 3:28 AM) [facility] XEINP7562-98-73 08:28:53Positive *ABN*(03/01/18 3:28 AM) [facility] QSVSJ4245-33-65 08:28:530.2[facility] NITROFURANTOIN:SUSC:PT:ISOLATE:ORDQN:FSK3398-98-06 08:26:00Enterococcus Species [facility] XCLM2999-56-36 15:30:00Negative (11/06/17 9:30 AM)[facility] PPATD2583-59-34 15:10:00Negative (11/06/17 9:10 AM)[facility] IUSER6140-34-47 15:10:00Negative *NA*(11/06/17 9:10 AM)[facility] YXXPB6560-16-65 15:10:00Negative *NA*(11/06/17 9:10 AM)[facility] RBULC4830-39-27 15:10:00Negative (11/06/17 9:10 AM)[facility] SHLRV8018-61-67 15:10:00Positive *ABN*(11/06/17 9:10 AM)[facility] GCYHN7653-27-24 15:10:000.2[facility] STOOL 2017-11-06 15:10:00Small *ABN*(11/06/17 9:10 AM)[facility] STOOL 2017-11-06 15:10:00Yellow *NA*(11/06/17 9:10 AM)[facility] STOOL 2017-11-06 15:10:00Cloudy *ABN*(11/06/17 9:10 AM)[facility] STOOL 2017-11-06 15:10:00Trace *ABN*(11/06/17 9:10 AM)[facility] STOOL 2017-11-06 15:10:00 Test Item Value Reference Range Interpretation Comments UA Spec Grav (test code = UA Spec 1.020 1 Grav) [facility] SOQDH6151-98-50 15:10:00 Test Item Value Reference Range Interpretation Comments UA pH (test code = UA pH) 8.5 1 5.0-8.0 [facility]CHE[facility] RYHKD1182-62-99 15:01:004.6[facility]annCHEM PANEL 2017-11-06 15:01:00 Test Item Value Reference Range Interpretation Comments A/G Ratio (test code = A/G Ratio) 0.7 1 0.7-1.6 [facility]CHE[facility] GIJYU2659-41-89 15:01:008.0[facility]annCHEM PANEL 2017-11-06 15:01:003.4[facility]annCHEM OKAEG6798-25-69 15:01:000.1[facility]annCHEM OFZWT3396-83-71 15:01:000.3[facility]annCHEM AXXYR8899-97-90 15:01:0030[facility]annCHEM QXGHD2300-47-51 15:01:0048[facility]annCHEM OWUUX9088-18-26 15:01:000.4[facility]annCHEM CUJII7045-95-07 15:01:0047 [facility]CHE[facility] FOQID0089-00-43 15:01:51291Luuzsonv HermannELECTROLYTES 2017-11-06 15:01:0016.8[facility] WnicvtoGIXPZANDBNLM4249-99-63 15:01:66785 [facility] PulbyvrMCSBQENNSAMX5946-80-61 15:01:009.1[facility]annELECTROLYTES 2017-11-06 15:01:0022[facility] FiopvlhIDCXYBCOQRQT7060-86-79 15:01:28825Llbopagt XwlplawJACLZLNVGFEM8144-84-36 15:01:0096[facility] WlugimhVPTBOHIZBOGP0410-04-27 15:01:000.63[facility] IdkwubzNOTIWMYJCMTV8084-63-60 15:01:0011[facility] HCQVNMLETUUY6520-98-84 15:01:05502Pzjyopcq GknsptyKPYAXBCWKWSH0947-89-88 15:01:004.8[facility] XqssgfqZQIBYHZPXC4803-81-87 15:01:001+ *ABN*(11/06/17 9:01 AM)[facility] DkjmtwoTJRTMTJAKI9206-16-18 15:01:001+ *ABN*(11/06/17 9:01 AM) [facility] SbdnuakHBFFYEWCCZ0208-98-98 15:01:000.2[facility]annHEMATOLOGY 2017-11-06 15:01:001+ (11/06/17 9:01 AM)[facility] FzdotvtDSAYYOIHSK6795-64-87 15:01:002.2[facility] BrvsyjnNMDLUAIEQQ2477-01-76 15:01:0010.3[facility] ZMVLMMXFJV5124-13-56 15:01:000.4[facility] RjemhxqUSHIHGWXLR2579-81-46 15:01:001.8 [facility] ZrpsepnLGRICZVXQK1710-54-23 15:01:007.5[facility]annHEMATOLOGY 2017-11-06 15:01:001.1[facility] IrnajeuGCHSBYFSWM4690-35-37 15:01:00See Note 1(11/06/17 9:01 AM)[facility] OhlatkxKJCYTZWFCG3479-65-16 15:01:0070.0[facility] [id number] 15:01:0017.1[facility] [id number] 15:01:97119Cumwerkh [id number] 15:01:00 Test Item Value Reference Range Interpretation Comments MCH (test code = MCH) 23.9 pg 27.0-31.0 [facility] [id number] 15:01:0022.9[facility] HermannHEMATOLOGY 2017-11-06 15:01:0030.1[facility] [id number] 15:01:0033.3[facility] [id number] 15:01:004.20[facility] [id number] 15:01:0010.0[facility] [id number] 15:01:0079.3[facility] [id number] 15:01:0010.7[facility] [id number] 15:01:00 9.0[facility] [id number] 14:43:00Negative *NA*(11/06/17 8:43 AM) Aurea Schneider
[2020-03-07 20:54] LABS: Urine Bacteria 20-50 /HPF (<20); Urine Culture Reflex Order NOT NEEDED; Urine Mucus 2+ /HPF (NONE SEEN)
[2020-03-07] MEDS ORDERED: CEFTRIAXONE/SWI 1gm 1 GM/10 ML SYR ONE (21:26)
[2020-03-07 22:02] LABS: Urine Blood 3+ (NEG); Urine Glucose NEGATIVE (NEG); Urine Protein 3+ (NEG); Urine Specific Gravity 1.015 (1.005-1.030); Urine pH 6.5 (5.0-7.0)
--- NOTE | 2020-03-07 22:15 | EDPHYS ---
Physician Documentation [facility] Name: Leila Aquino Age: 39 yrs Sex: Female : 1980 Arrival Date: 03/07/2020 Time: 16:37 Bed 5 Private MD: ED Physician Jaun Morrow HPI: 03/07 17:51 This 39 yrs old Black Female presents to ER via EMS with complaints of Abdominal Pain, kdr Nausea, Headache. 17:51 The patient presents to the emergency department with nausea, that is mild, vomiting, kdr that is intermittent, abdominal pain, of the abdomen diffusely, described as achy, crampy, and does not radiate. 17:52 Onset: The symptoms/episode began/occurred gradually, 2 day(s) ago. Possible causes: kdr unknown. Possible causes: UTI/Pyleo. The symptoms are aggravated by nothing. Severity of symptoms: At their worst the symptoms were mild moderate in the emergency department the symptoms have improved mildly. The patient has not experienced similar symptoms in the past. The patient has not recently seen a physician. [employer]: 21:45 LMP 02/2020 rr5 Historical: - Allergies: 16:44 chloradate; sv 16:44 Latex, Natural Rubber; sv 16:44 Morphine; sv 16:44 Vancomycin; sv - PMHx: 16:44 ADD/ADHD; Asthma; Anemia; DVT; Kidney stones; Hypertension; Osteomyelitis-L foot; sv osteomyolitis L foot; Sepsis; spina bifida; Upper extremity DVT- L arm; UTI; - Immunization history:: Adult Immunizations. - Social history:: Smoking status: Patient denies any tobacco usage or history of. ROS: 17:52 Constitutional: Negative for fever, chills, and weight loss, Eyes: Negative for injury, kdr pain, redness, and discharge, Neck: Negative for injury, pain, and swelling, Cardiovascular: Negative for chest pain, palpitations, and edema, Respiratory: Negative for shortness of breath, cough, wheezing, and pleuritic chest pain, Back: Negative for injury and pain, : Negative for injury, bleeding, discharge, and swelling, MS/Extremity: Negative for injury and deformity, Skin: Negative for injury, rash, and discoloration, Neuro: Negative for headache, weakness, numbness, tingling, and seizure activity. Psych: Negative for depression, anxiety, suicide ideation, homicidal ideation, and hallucinations, Allergy/Immunology: Negative for hives, rash, and allergies, Endocrine: Negative for neck swelling, polydipsia, polyuria, polyphagia, and marked weight changes, Hematologic/Lymphatic: Negative for swollen nodes, abnormal bleeding, and unusual bruising. 17:52 Abdomen/GI: Positive for abdominal pain, nausea and vomiting, Negative for diarrhea, constipation, abdominal cramps, abdominal distension, anorexia, dysphagia, hematemesis, black/tarry stool, rectal pain, rectal bleeding, bowel incontinence. Exam: 17:52 Constitutional: This is a well developed, well nourished patient who is awake, alert, kdr and in no acute distress. Head/Face: Normocephalic, atraumatic. Eyes: Pupils equal round and reactive to light, extra-ocular motions intact. Lids and lashes normal. Conjunctiva and sclera are non-icteric and not injected. Cornea within normal limits. Periorbital areas with no swelling, redness, or edema. Neck: Trachea midline, no thyromegaly or masses palpated, and no cervical lymphadenopathy. Supple, full range of motion without nuchal rigidity, or vertebral point tenderness. No Meningismus. Chest/axilla: Normal chest wall appearance and motion. Nontender with no deformity. No lesions are appreciated. Cardiovascular: Regular rate and rhythm with a normal S1 and S2. No gallops, murmurs, or rubs. Normal PMI, no JVD. No pulse deficits. Respiratory: Lungs have equal breath sounds bilaterally, clear to auscultation and percussion. No rales, rhonchi or wheezes noted. No increased work of breathing, no retractions or nasal flaring. Back: No spinal tenderness. No costovertebral tenderness. Full range of motion. Skin: Warm, dry with normal turgor. Normal color with no rashes, no lesions, and no evidence of cellulitis. MS/ Extremity: Pulses equal, no cyanosis. Neurovascular intact. Full, normal range of motion. The patient is a spinabifada patient witwh underdeveloped lower extremties. The patient has no new concners regarding her lower extremrities. Neuro: Awake and alert, GCS 15, oriented to person, place, time, and situation. Cranial nerves II-XII grossly intact. Motor strength 5/5 in all extremities. Sensory grossly intact. Cerebellar exam normal. Normal gait. Psych: Awake, alert, with orientation to person, place and time. Behavior, mood, and affect are within normal limits. 17:52 Abdomen/GI: Bowel sounds: active, Palpation: soft, mild abdominal tenderness, in the abdomen diffusely. Vital Signs: 16:28 BP 129 / 92; Pulse 101; Resp 16; Temp 97.5; Pulse Ox 100% ; sv 17:13 BP 123 / 90; Pulse 88; Resp 16; Pulse Ox 100% ; sv 18:15 BP 139 / 88; Pulse 89; Resp 16; Pulse Ox 99% on R/A; sv 20:00 BP 123 / 101; Pulse 85; Resp 19; Pulse Ox 99% on R/A; rr5 21:00 BP 131 / 85; Pulse 86; Resp 15; Pulse Ox 98% on R/A; rr5 21:31 Weight 72.57 kg; mw2 21:45 BP 129 / 97; Pulse 80; Resp 19; Pulse Ox 99% on R/A; rr5 22:40 BP 121 / 75; Pulse 75; Resp 16; Temp 98; Pulse Ox 99% on R/A; rr5 MDM: 17:52 Data reviewed: vital signs, lab test result(s), radiologic studies. Counseling: I had a kdr detailed discussion with the patient and/or guardian regarding: the historical points, exam findings, and any diagnostic results supporting the discharge/admit diagnosis, lab results, radiology results. 22:08 Differential diagnosis: Nonspecific abd pain, gastritis, pancreatitis, UTI, 7 Pyelonephritis. 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 Interpretation: normal. Response to treatment: the patient's symptoms have markedly improved after treatment. Physician consultation:. Other consultation: Discussed with patient's urologist at [facility], Dr. Aleman. She will follow up with patient in the office. Does not recommend admission or transfer.. 22:15 Patient medically screened. 7 03/08 06:56 ED course: Patient was signed out to me at change of shift to check pending studies and [facility] reevaluate for disposition. She is awake, alert, and oriented x 3, NAD, VSS. Discussed all test results and findings with the patient and at her request discussed findings with her urologist, Dr. Aleman, at [facility]. Her doctor requested that she follow up in the office but no need to admit or transfer.. 03/07 17:07 Order name: Basic Metabolic Panel [facility] 03/07 17:07 Order name: CBC with Diff [facility] 03/07 17:07 Order name: Hepatic Function [facility] 03/07 17:07 Order name: Lipase [facility] 03/07 17:25 Order name: Urine Culture [facility] 03/07 19:12 Order name: CBC with Automated Diff; Complete Time: 20:14 [facility] 03/07 19:21 Order name: Basic Metabolic Panel; Complete Time: 20:14 [facility] 03/07 19:21 Order name: Liver (Hepatic) Function; Complete Time: 20:14 [facility] 03/07 19:40 Order name: CBC Smear Scan; Complete Time: 20:14 [facility] 03/07 20:34 Order name: Urine Microscopic Only [facility] 03/07 20:36 Order name: Urine Dipstick--Ancillary (enter results) [facility] 03/07 20:36 Order name: Urine --Ancillary (enter results) [facility] 03/07 20:54 Order name: Urine Microscopic Only; Complete Time: 21:15 [facility] 03/07 22:02 Order name: Urine --Ancillary [facility] 03/07 17:07 Order name: IV Saline Lock; Complete Time: 18:54 [facility] 03/07 17:07 Order name: Labs collected and sent; Complete Time: 18:54 [facility] 03/07 17:24 Order name: CT Abd/Pelvis - IV Contrast Only [facility] 03/07 17:25 Order name: Urine Dipstick-Ancillary (obtain specimen); Complete Time: 20:38 [facility] 03/07 19:47 Order name: CT; Complete Time: 20:14 [facility] 03/07 22:02 Order name: Urine Dipstick-Ancillary [facility] 03/07 22:05 Order name: CREATININE WHOLE BLOOD [facility] Administered Medications: 03/07 18:53 CANCELLED (pt allergic to this): morphine 4 mg IVP once; RASS on ADMIN: Combtv4, Very sv Agttd3, Agttd2, Rstlss1, AlertClm0, Drwsy-1, Lt Sdtn-2, Mod Sdtn-3, Dp Sdtn-4, UnArsble-5 18:53 Drug: Zofran (Ondansetron) 4 mg Route: IVP; Site: left upper arm; sv 20:00 Follow up: Response: No adverse reaction rr5 18:53 Drug: NS 0.9% 250 ml Route: IV; Rate: bolus; Site: left upper arm; sv 18:54 Drug: Demerol 25 mg {Note: rass0.} Route: IVP; Site: left upper arm; sv 20:16 Follow up: Response: No adverse reaction; RASS: Alert and Calm (0) rr5 20:15 Drug: Demerol 25 mg {Note: left shoulder rass 0 .} Route: IVP; Site: Other; rr5 21:15 Follow up: Response: No adverse reaction; RASS: Alert and Calm (0) rr5 21:36 Drug: Rocephin - (cefTRIAXone) 1 grams {Note: left shoulder.} Route: IVPB; Infused rr5 Over: 30 mins; Site: Other; 22:30 Follow up: Response: No adverse reaction; IV Status: Completed infusion rr5 Disposition: 03/07/20 22:15 Discharged to Home. Impression: Urinary tract infection, site not specified, Ureterolithiasis-chronic, Right Nephrostomy. - Condition is Stable. - Prescriptions for Levaquin 500 mg Oral Tablet - take 1 tablet by ORAL route once daily for 7 days; 7 tablet. Zofran ODT 4 mg Oral tablet,disintegrating - place 1 tablet by TRANSLINGUAL route every 8 hours; 10 tablet. - Medication Reconciliation Form, Thank You Letter, Antibiotic Education, Prescription Opioid Use form. - Follow up: Private Physician; When: Tomorrow; Reason: Worsening of condition, Recheck today's complaints, Continuance of care, Re-evaluation by your physician. - Problem is chronic. - Symptoms have improved. Signatures: Dispatcher [employer] Yaz King RN RN Dakotah Calderón MD MD [facility] Burton Mcqueen PA PA cp Roque, Raymond, RN RN rr5 Jaun Morrow MD MD 7 Corrections: (The following items were deleted from the chart) 18:53 17:24 morphine 4 mg IVP once; RASS on ADMIN: Combtv4, Very Agttd3, Agttd2, Rstlss1, sv AlertClm0, Drwsy-1, Lt Sdtn-2, Mod Sdtn-3, Dp Sdtn-4, UnArsble-5 ordered. kdr 23:01 22:15 03/07/2020 22:15 Discharged to Home. Impression: Urinary tract infection, site rr5 not specified; Ureterolithiasis-chronic; Right Nephrostomy. Condition is Stable. Forms are Medication Reconciliation Form, Thank You Letter, Antibiotic Education, Prescription Opioid Use. Follow up: Private Physician; When: Tomorrow; Reason: Worsening of condition, Recheck today's complaints, Continuance of care, Re-evaluation by your physician. Problem is chronic. Symptoms have improved. mh7
--- NOTE | 2020-03-07 22:15 | ER ---
Nurse's Notes [facility] [place], [place] Name: Leila Aquino Age: 39 yrs Sex: Female : 1980 Arrival Date: 03/07/2020 Time: 16:37 Bed 5 Private MD: Diagnosis: Urinary tract infection, site not specified;Ureterolithiasis-chronic;Right Nephrostomy Presentation: 03/07 16:28 Chief complaint: EMS states: sent by her PCP to r/o kidney stones and urine infection. sv c/o nausea, headache, abd pain. BP 123/84 HR-96 100% RA Temp 99.0. Coronavirus screen: Proceed with normal triage. Patient denies a cough. Patient denies shortness of breath or difficulty breathing. Patient reports a measured and/or subjective temperature greater than 100.4F. Patient denies travel on a cruise ship or to a country the [facility] currently lists as an affected area. Patient denies contact with known and/or suspected case of COVID-19. Ebola Screen: No symptoms or risks identified at this time. Initial Sepsis Screen: Does the patient meet any 2 criteria? HR > 90 bpm. No. Patient's initial sepsis screen is negative. Does the patient have a suspected source of infection? Yes: Dysuria/Frequency/Urgency/UTI. Risk Assessment: Do you want to hurt yourself or someone else? Patient reports no desire to harm self or others. Onset of symptoms was February 2020. 16:28 Method Of Arrival: EMS: [facility] sv 16:28 Acuity: PAYTON 2 sv Triage Assessment: 16:45 General: Appears in no apparent distress. comfortable, Behavior is calm, cooperative, sv appropriate for age, Reports fever. Pain: Complains of pain in right low back. Neuro: Level of Consciousness is awake, alert, obeys commands, Oriented to person, place, time, situation, Paralysis in bilateral leg(s). Respiratory: Respiratory effort is even, unlabored, Respiratory pattern is regular, symmetrical. GI: Colostomy site is clean and dry. Ostomy appliance is intact. : to gravity drainage right posterior and anterior urostomy in place. Pt stated that her nurse took the last urine sample from the urostomy in her back. Urine is cloudy, foul odor. Derm: Skin is normal. EVENT STAFF: 21:45 LMP 02/2020 rr5 Historical: - Allergies: 16:44 chloradate; sv 16:44 Latex, Natural Rubber; sv 16:44 Morphine; sv 16:44 Vancomycin; sv - PMHx: 16:44 ADD/ADHD; Asthma; Anemia; DVT; Kidney stones; Hypertension; Osteomyelitis-L foot; sv osteomyolitis L foot; Sepsis; spina bifida; Upper extremity DVT- L arm; UTI; - Immunization history:: Adult Immunizations. - Social history:: Smoking status: Patient denies any tobacco usage or history of. Screenin:44 Abuse screen:. Abuse screen: Denies threats or abuse. Denies injuries from another. sv Nutritional screening: No deficits noted. Tuberculosis screening: No symptoms or risk factors identified. Fall Risk No fall in past 12 months (0 pts). Secondary diagnosis (15 points) spina bifida. No IV (0 pts). Ambulatory Aid- None/Bed Rest/Nurse Assist (0 pts). Gait- Normal/Bed Rest/Wheelchair (0 pts) Mental Status- Oriented to own ability (0 pts). Total Toribio Fall Scale indicates No Risk (0-24 pts). Assessment: 17:30 Reassessment: Patient appears in no apparent distress at this time. No changes from sv previously documented assessment. Patient and/or family updated on plan of care and expected duration. Pain level reassessed. Patient is alert, oriented x 3, equal unlabored respirations, skin warm/dry/pink. 18:45 Reassessment: Patient appears in no apparent distress at this time. No changes from sv previously documented assessment. Patient and/or family updated on plan of care and expected duration. Pain level reassessed. Patient is alert, oriented x 3, equal unlabored respirations, skin warm/dry/pink. 19:30 General: Appears in no apparent distress. comfortable, Behavior is calm, cooperative, rr5 appropriate for age. 19:30 Pain: Complains of pain in abdomen Pain currently is 8 out of 10 on a pain scale. rr5 Quality of pain is described as aching, Pain began gradually, Is intermittent. Neuro: Level of Consciousness is awake, alert, obeys commands, Oriented to person, place, time, situation. Cardiovascular: Capillary refill < 3 seconds Patient's skin is warm and dry. Respiratory: Airway is patent Respiratory effort is even, unlabored, Respiratory pattern is regular, symmetrical. GI: Abdomen is round non-distended, obese, Colostomy site. : nephrostomy, urostomy Urine is cloudy. EENT: No signs and/or symptoms were reported regarding the EENT system. Derm: Skin is intact, is healthy with good turgor, Skin temperature is warm. Musculoskeletal: Capillary refill < 3 seconds. 20:05 Reassessment: Patient appears in no apparent distress at this time. Patient is alert, rr5 oriented x 3, equal unlabored respirations, skin warm/dry/pink. complaints of abdominal pain, ED provider aware with order made and carried out. 21:00 Reassessment: Patient appears in no apparent distress at this time. Patient is alert, rr5 oriented x 3, equal unlabored respirations, skin warm/dry/pink. reassess by ED provider explained the result. planning to transfer to other facility Patient states feeling better. Patient states symptoms have improved. 21:44 Reassessment: Patient appears in no apparent distress at this time. Patient is alert, rr5 oriented x 3, equal unlabored respirations, skin warm/dry/pink. awaiting for acceptance. 22:59 Reassessment: Patient appears in no apparent distress at this time. Patient is alert, rr5 oriented x 3, equal unlabored respirations, skin warm/dry/pink. discharge instruction given and explained without complaints made. Vital Signs: 16:28 BP 129 / 92; Pulse 101; Resp 16; Temp 97.5; Pulse Ox 100% ; sv 17:13 BP 123 / 90; Pulse 88; Resp 16; Pulse Ox 100% ; sv 18:15 BP 139 / 88; Pulse 89; Resp 16; Pulse Ox 99% on R/A; sv 20:00 BP 123 / 101; Pulse 85; Resp 19; Pulse Ox 99% on R/A; rr5 21:00 BP 131 / 85; Pulse 86; Resp 15; Pulse Ox 98% on R/A; rr5 21:31 Weight 72.57 kg; mw2 21:45 BP 129 / 97; Pulse 80; Resp 19; Pulse Ox 99% on R/A; rr5 22:40 BP 121 / 75; Pulse 75; Resp 16; Temp 98; Pulse Ox 99% on R/A; rr5 ED Course: 16:37 Patient arrived in ED. ss 16:40 Yaz Bass, RN is Primary Nurse. sv 16:43 Triage completed. sv 16:44 Arm band placed on. sv 16:44 Patient has correct armband on for positive identification. Bed in low position. Call light in reach. Side rails up X2. Pulse ox on. NIBP on. Door closed. Head of bed elevated. 17:06 Dakotah Reid MD is Attending Physician. kdr 18:45 Missed attempt(s): 22 gauge in right antecubital area. Bleeding controlled, band aid sv applied, catheter tip intact. 18:50 Inserted saline lock: 22 gauge in left upper arm, using aseptic technique. ,using sv aseptic technique. diffusics, blood sent on a heel warmer. Blood collected. Flushed left with 5 ml normal saline. 19:00 Report given to Cecily URBAN and Toña URBAN. sv 19:05 Attending Physician role handed off by Dakotah Reid MD [facility] 19:05 Jaun Morrow MD is Attending Physician. [facility] 20:00 Primary Nurse role handed off by Yaz Bass RN 20:15 Mann Gregory, RAJNI is Primary Nurse. rr5 20:38 Urine collected: urostomy catheter. rr5 22:59 No provider procedures requiring assistance completed. IV discontinued, intact, rr5 bleeding controlled, No redness/swelling at site. Pressure dressing applied. Administered Medications: 18:53 CANCELLED (pt allergic to this): morphine 4 mg IVP once; RASS on ADMIN: Combtv4, Very sv Agttd3, Agttd2, Rstlss1, AlertClm0, Drwsy-1, Lt Sdtn-2, Mod Sdtn-3, Dp Sdtn-4, UnArsble-5 18:53 Drug: Zofran (Ondansetron) 4 mg Route: IVP; Site: left upper arm; sv 20:00 Follow up: Response: No adverse reaction rr5 18:53 Drug: NS 0.9% 250 ml Route: IV; Rate: bolus; Site: left upper arm; sv 18:54 Drug: Demerol 25 mg {Note: rass0.} Route: IVP; Site: left upper arm; sv 20:16 Follow up: Response: No adverse reaction; RASS: Alert and Calm (0) rr5 20:15 Drug: Demerol 25 mg {Note: left shoulder rass 0 .} Route: IVP; Site: Other; rr5 21:15 Follow up: Response: No adverse reaction; RASS: Alert and Calm (0) rr5 21:36 Drug: Rocephin - (cefTRIAXone) 1 grams {Note: left shoulder.} Route: IVPB; Infused rr5 Over: 30 mins; Site: Other; 22:30 Follow up: Response: No adverse reaction; IV Status: Completed infusion rr5 Intake: 22:40 neprhostomy rr5 Output: 22:40 Urine: 750ml; Total: 750ml. rr5 22:40 neprhostomy rr5 Outcome: 22:15 Discharge ordered by . 7 22:59 Discharged to home via ambulance. rr5 22:59 Condition: stable 22:59 Discharge instructions given to patient, Instructed on discharge instructions, follow up and referral plans. medication usage, Demonstrated understanding of instructions, follow-up care, medications, Prescriptions given X 2. 23:01 Patient left the ED. rr5 Addendum: 03/11/2020 15:47 Addendum: Culture Results: Positive urine culture. No further action required. Other: d m5 spoke with pt. PCP and urologist already prescribed new antibiotics based off of the culture results.. Signatures: Zara Treviño, RN RN 5 Yaz Bass RN RN sv Rittger, Kevin, MD MD [facility] Verito Pascal RN RN [facility] Mann Gregory RN RN rr5 Jaun Morrow MD MD [facility] Corrections: (The following items were deleted from the chart) 03/07 19:01 18:50 Inserted saline lock: 22 gauge in left upper arm, using aseptic technique. ,using sv aseptic technique. diffusics Blood collected. Flushed left with 5 ml normal saline sv 21:46 21:45 LMP 01/2020 rr5 rr5
[2020-03-07 23:41] VITALS: O2SAT 99
[2020-03-07 23:43] VITALS: BP 121/75; TEMP 98
== END 2020-03-07 23:01 | disposition home or self-care (01) ==
LOC: ER 16:33
DX: N39.0 Urinary tract infection, site not specified (principal); N20.1 Calculus of ureter; I10 Essential (primary) hypertension; Z88.3 Allergy status to other anti-infective agents; Z88.5 Allergy status to narcotic agent; Z88.8 Allergy status to other drugs, medicaments and biological substances; Z91.040 Latex allergy status; Z91.048 Other nonmedicinal substance allergy status; Z87.442 Personal history of urinary calculi
CPT/HCPCS: 87088; 85025; 87086; 80048; 36415; 81025; 82565; 80076; 87077 ×2; 87186 ×2; 74177; 99284; Q9967; J2175 ×2; J0696; J7040; J2405; 81003; 81015

== ENCOUNTER 2020-12-28 06:00 | Emergency (ER) | payer OTHER ==
--- OUTSIDE RECORDS SUMMARY | 2020-12-28 06:07 | XMS REPORT | Continuity of Care Document ---
:1980 Author Organization [facility] t Address [address] [place] [address] Care Team Providers Name Role Phone Luna Lowery Primary Care Physician HOLLY Attending Clinician Unavailable DEVENDRA Attending Clinician Unavailable DEMOND Attending Clinician Unavailable DICK Attending Clinician Unavailable YELITZA Attending Clinician Unavailable LARRY Attending Clinician Unavailable JACKLYN Attending Clinician Unavailable ISIAH Attending Clinician Unavailable CHRISTOPHE Attending Clinician Unavailable HERMILO Attending Clinician Unavailable MED PROVIDER Attending Clinician Unavailable MELY Attending Clinician Unavailable WAQAR LOMBARDI Attending Clinician Unavailable MABEL VERMA Attending Clinician Unavailable DEVANTE Attending Clinician Unavailable TERRY Attending Clinician Unavailable WAQAR LOMBARDI Admitting Clinician Unavailable MABEL VERMA Admitting Clinician Unavailable Problems Condition Condition Condition Status Onset Resolution Last Treating Co mments Source Name Details Category Date Date Treatment Clinician Date History of History of Disease Active 2017-[address] MDR MDR 0-27 [facility] Enterobact Enterobact 00:00: Me dical er cloacae er cloacae 00 Ce nter infection infection Right Right Disease Active 2017-[address] [facility] ureteral ureteral 0-13 [facility] stone stone 00:00: Medical 00 [place] Urinary Urinary Disease Active 2017-[address] [facility] tract tract 0-13 [facility] - obstructio obstructio 00:00: Me dical n due to n due to 00 Center kidney kidney stone stone Hydronephr Hydronephr Disease Active 2017-[address] osis osis 0-12 [facility] - 00:00: Medical 00 [place] 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[address] [facility]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 00:00: Me dical bar region bar region 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 Acute Acute Disease Active 2017-[address] [facility] cystitis cystitis 0-12 [facility] - without without 00:00: Medical hematuria hematuria 00 Cent er History of History of Problem Resolve Univers [...] venous [place] thrombosis thrombosis Ph ysici ans Bleeding Bleeding Problem Active Unive rs [facility] [place] [facility] ans [facility] Problem Active Unive rs discharge [...] y of ureter ureter [place] [facility] Pleural Pleural Problem Active Univers effusion effusion ity of [place] [facility] ans Insomnia Insomnia Problem Active Unive rs ity of [place] [facility] ans Essential Essential Problem Active Uni vers hypertensi hypertensi it y of [place], benign [place] Recurrent Recurrent Problem Active Uni vers UTI UTI ity of (urinary (urinary [place] tract [...] spasm spasm ity of [place] [facility]ici ans History of History of Problem Resolve Univers arthritis arthritis d ity of [place] [facility] ans History of History of Problem Resolve Univers Bowel Bowel d ity of trouble trouble [place] Phys[facility] ans History of History of Problem Resolve Univers Chronic Chronic d ity of pain pain [place] disorder disorder Physic i ans History of History of Problem Resolve Univers mental mental d ity of disorder disorder [place] [facility] ans History of History of Problem Resolve Univers skin skin d ity of disorder disorder [place] [facility] ans History of History of Problem Resolve Univers Wheelchair Wheelchair d it y of bound bound [place] [facility] Katie Katie Problem Active Univers UTI UTI ity of [place] [facility] Female Female Problem Active Univers bladder bladder ity of prolapse prolapse [place] Phys[facility] ans Visit for Visit for Problem Active Uni vers screening screening ity [place] mammogram mammogram [place] Dysuria Dysuria Problem Active Univers ity of [place] [facility] ans History of History of Problem Resolve Univers sepsis sepsis d ity of [place] [facility] ans Urinary Urinary Problem Active Univers incontinen incontinen it y of ce ce [place] Physici ans Ventral Ventral Problem Active Univers hernia hernia ity of [place] Physici ans Allergies, Adverse Reactions, Alerts Allergy Allergy Status Severity Reaction(s) Onset Inactive Treating Comm ents Source Name Type Date Date Clinician Latex Propensi Active 2017-[address] [facility] [address] ty to 0-12 [facility] - adverse 00:00: Medical reaction 00 Center s Morphine Propensi Active Other (See 2017-[address] ty to Comments) 0-12 tions [facility] - adverse 00:00: Medical reaction 00 Center s Vancomyc Propensi Active Itching 2017-08 [facility] to 0-12 [facility] - Analogue adverse 00:00: Medical s reaction 00 Center s Morphine Allergy Active Univers Derivati to drug ity of ves (finding [place] ) Physici ans Latex Allergy Active Univers Gloves to drug ity of ([facility] ) Physici ans vancomyc Allergy Active Univers in to drug ity of ([facility] ) Physici ans Family History Family Member Diagnosis Comments Start Date Stop Date Source Mother Family history of Univers ity of [place] Urinary incontinence Phys icians Mother Family history of Univers ity of [place] diabetes mellitus Physici ans Mother Family history of Univers ity of [place] Fecal incontinence Physic ians Sister Family history of Univers ity of [place] diabetes mellitus Physici ans Brother Family history of Univers ity of [place] diabetes mellitus Physici ans Social History Social Habit Start Date Stop Date Quantity Comments Source Sex Assigned At [facility] Tobacco use and 2018-07-04 2018-07-04 Never used [facility] 00:00:00 00:00:00 [facility] Center Smoking Status Start Date Stop Date Source Never smoker [facility] Medications Ordered Filled Start Stop Current Ordering Indication Dosage Frequency Signature Comments Components Source Medication Medication Date Date Medication? Clinician (SIG) Name Name Zolpidem Zolpidem Yes VERONA take 1/2 a Univers Tartrate 10 Tartrate 10 4-02 TORRE tablet ity of MG Oral MG Oral 00:00: M.D. [place]ly [place] Tablet Tablet 00 needed for Physi ci insomnia ans Sertraline Sertraline Yes BANDAR TAKE 1 Univers HCl - 100 HCl - 100 3-08 HERMILO TABLET BY ity of MG Oral MG Oral 00:00: M.D. MOUTH [place] Tablet Tablet 00 DAILY Physici ans Ibuprofen Ibuprofen 0 Yes DEONDRE RAMSAY Q8H TAKE 1 Univers 400 MG Oral 400 MG Oral 2-05 M.D. TABLET ity of Tablet Tablet 00:00: EVERY 8 [place] 00 HOURS Physici NEEDED. ans Pyridium Pyridium 2020-0 Yes KEVIN 1 Q0.3333D TAKE 1 Univers 200 MG Oral 200 MG Oral 1-19 ERICSSON TABLET 3 ity of Tablet Tablet 00:00: M.D. TIMES [place] 00 DAILY Physici AFTER ans MEALS NEEDED Ondansetron Ondansetron 2019-08 Yes VERONA 1 tablet Univers HCl - 4 MG HCl - 4 MG 1-18 TORRE by mouth ity of Oral Tablet Oral Tablet 00:00: M.D. every 6 [place] 00 hours as Physici needed for ans nausea. MiraLax 17 MiraLax 17 2019-0 Yes U nivers GM Oral GM Oral 8-26 ity of Packet Packet 00:00: [place] 00 Physici ans Senna S Senna S 2019-0 Yes Univers 8.6-50 MG 8.6-50 MG 8-26 ity o f Oral Tablet Oral Tablet 00:00: [place] 00 Physici ans Dulcolax 5 Dulcolax 5 2019-0 Yes U nivers MG Oral MG Oral 8-26 ity of Tablet Tablet 00:00: [place] Delayed Delayed 00 Physici Release Release ans Mirena 20 Mirena 20 2019-0 Yes VERONA USE Univers MCG/24HR MCG/24HR 1-14 TORRE DIRECTED. ity of Intrauterin Intrauterin 00:00: M.D. [place] e e 00 Physici Intrauterin Intrauterin a ns e Device e Device Ondansetron Ondansetron Yes VERONA 1 Q12H TAKE 1 Univers HCl - 4 MG HCl - 4 MG 5-08 TORRE TABLET ity of Oral Tablet Oral Tablet 00:00: M.D. Every [place] 00 twelve Physici hours ans amLODIPine amLODIPine Yes VEROAN TAKE 1 Univers Besylate 5 Besylate 5 4-26 TORRE TABLET BY ity of MG Oral MG Oral 00:00: M.D. MOUTH [place] Tablet Tablet 00 DAILY Physici ans amLODIPine 2017-08 Yes 5mg QD Take [address] (NORVASC) 5 0-31 by mouth Luke s - MG tablet 17:00: daily. Medica l 34 Center rivaroxaban 2017-08 Yes Take by [facility] (XARELTO) 0-31 mouth [facility] - 20 mg Tab 17:00: daily with Me dical tablet 34 dinner. Center albuterol 2017-08 Yes 1{puff} Inhale [address] HFA 0-31 puff by [facility] - (VENTOLIN 17:00: mouth via Med ical HFA) 90 34 inhaler Center mcg/actuati every 6 on inhaler (six) hours as needed for Wheezing. acetaminoph 2017-08 Yes 650mg Take [address] en 0-31 mg by [facility] - (TYLENOL) 17:00: mouth Medical 325 MG 34 every 6 Center tablet (six) hours as needed for Pain. polyethylen 2017-08 Yes 17g QD Take [address] e glycol 0-31 by mouth [facility] - (GLYCOLAX) 17:00: daily. Medic al 17 gram 34 Center packet sertraline 2017-08 Yes 100mg QD Take [address] (ZOLOFT) 0-31 mg by [facility] - 100 MG 17:00: mouth Medical tablet 34 nightly. [place] zolpidem 2017-08 Yes 5mg Take [address] [facility] (AMBIEN) 5 0-31 by mouth [facility] - MG tablet 17:00: every Medical 34 night as Center needed for Insomnia. diphenhydrA 2017-08 Yes 25mg Take [address] [facility] MINE 0-31 by mouth [facility] - (BENADRYL) 17:00: every 6 Medi lacey 25 mg 34 (six) Center capsule hours as needed for Itching or Allergies. aluminum-ma 2017-08 Yes 10mL Take [address] [facility] [address] gnesium 0-31 mLs by [facility] - hydroxide-s 17:00: mouth 4 Med ical imethicone 34 (four) Center (MAALOX times PLUS) daily suspension before 200-200-20 meals and mg/5 mL nightly. aspirin 325 2017-08 Yes 325mg QD Take [address] MG tablet 0-31 mg by [facility] - 17:00: mouth Medical 34 daily. Center HYDROcodone 2017-08 Yes 1{tbl} Take [address] -acetaminop 0-31 tablet by Cristhian es - hen (NORCO 17:00: mouth Medica l 10-325) 34 every 4 Center 10-325 mg (four) per tablet hours as needed for Pain. tamsulosin 2017-08 Yes .4mg QD Take 1 [facility] (FLOMAX) 0-31 capsule [facility] - 0.4 mg Cap 00:00: (0.4 mg Medi lacey 24 hr 00 total) by Center capsule mouth daily. ondansetron 2017-08 Yes 4mg Take [address] [facility] (ZOFRAN) 4 0-15 tablet (4 [facility] - MG tablet 00:00: mg total) Med ical 00 by mouth 3 Center (three) times daily as needed for Nausea. levalbutero 2012-08 Yes EVERY [address] [facility] l (XOPENEX 1-29 HOURS [facility] - HFA) 45 00:00: NEEDED Medical mcg/actuati 00 Center on inhaler Tylenol Tylenol Yes Univers Extra Extra ity of Strength Strength [place] TABS TABS Physici ans Immunizations Ordered Immunization Filled Immunization Date Status Commen ts Source Name Name Tdap (Adacel) Unknown Completed [facility] ns Fluzone Quadrivalent Unknown Completed Univ ersity of 0.5 ML Intramuscular [place] Suspension Vital Signs Vital Name Observation Time Observation Value Comments Source Systolic blood 2020-11-29 134 mm[Hg] [facility] 12:58:[facility] Position: [place] Physician s Sitting Diastolic blood 2020-11-29 87 mm[Hg] [facility] 12:58:[facility] Position: [place] Physician s Sitting Body height 2020-11-29 60 [in_us] [facility] 12:58:00 [place] Physician s Weight 2020-11-29 130 [lb_av] [facility] 12:58:00 [place] Physician s Body mass index 2020-11-29 25.39 kg/m2 [facility] o f (BMI) [Ratio] 12:58:00 [place] [facility] ns Body temperature 2020-11-29 98 [degF] Method: [facility] 12:58:00 Temporal [place] Physician s Heart Rate 2020-11-29 102 /min [facility] 12:58:00 [place] Physician s Diastolic blood 2020-11-04 88 mm[Hg] Location: [facility] 09:00:00 Position: [place] Physician s Sitting Body height 2020-11-04 60 [in_us] [facility] 09:00:00 [place] Physician s Weight 2020-11-04 140 [lb_av] University 09:00:00 [place] Phys[facility] s Body mass index 2020-11-04 27.34 kg/m2 [place] o f (BMI) [Ratio] 09:00:00 [place] Physicia ns Body temperature 2020-11-04 97.8 [degF] Method: [facility] 09:00:00 Temporal [place] Physician s Heart Rate 2020-11-04 90 /min [facility] 09:00:00 [place] Physician s Systolic blood 2020-11-04 128 mm[Hg] Location: [place]; [facility] 09:00:00 Position: [place] Physician s Sitting Systolic blood 2020-10-04 117 mm[Hg] Location: [place]; [facility] 09:17:00 Position: [place] Physician s Sitting Diastolic blood 2020-10-04 81 mm[Hg] Location: [place]; [facility] 09:17:00 Position: [place] Physician s Sitting Body height 2020-10-04 60 [in_us] [facility] 09:17:00 [place] Physician s Weight 2020-10-04 140 [lb_av] [facility] 09:17:00 [place] Physician s Body mass index 2020-10-04 27.34 kg/m2 [place] o f (BMI) [Ratio] 09:17:00 [place] Physicia ns Body temperature 2020-10-04 96.7 [degF] Method: [facility] 09:17:00 Temporal [place] Physician s Heart Rate 2020-10-04 98 /min [facility] 09:17:00 [place] Physician s Systolic blood 2020-09-17 127 mm[Hg] Location: [place]; [facility] 10:48:00 Position: [place] Physician s Sitting Diastolic blood 2020-09-17 94 mm[Hg] Location: [place]; [facility] 10:48:00 Position: [place] Physician s Sitting Body height 2020-09-17 60 [in_us] [facility] 10:48:00 [place] Physician s Weight 2020-09-17 140 [lb_av] [facility] 10:48:00 [place] Physician s Body mass index 2020-09-17 27.34 kg/m2 University o f (BMI) [Ratio] 10:48:00 [place] Physicia ns Heart Rate 2020-09-17 88 /min University of 10:48:00 [place] Physician s Respiratory rate 2020-09-17 18 /min University of 10:48:00 [place] Physician s Body temperature 2020-09-17 98.8 [degF] University of 10:48:00 [place] Physician s Systolic blood 2020-08-12 146 mm[Hg] Location: [place]; [facility] 09:06:00 Position: [place] Physician s Sitting Diastolic blood 2020-08-12 92 mm[Hg] Location: [place]; [facility] 09:06:00 Position: [place] Physician s Sitting Body height 2020-08-12 60 [in_us] University 09:06:00 [place] Physician s Weight 2020-08-12 130 [lb_av] University of 09:06:00 [place] Physician s Body mass index 2020-08-12 25.39 kg/m2 University o f (BMI) [Ratio] 09:06:00 [place] Physicia ns Body temperature 2020-08-12 96.6 [degF] Method: [facility] 09:06:00 Temporal [place] Physician s Heart Rate 2020-08-12 108 /min University 09:06:00 [place] Physician s Systolic blood 2020-05-01 129 mm[Hg] Location: [place]; [facility] 13:37:00 Position: [place] Physician s Sitting Diastolic blood 2020-05-01 88 mm[Hg] Location: [place]; [facility] 13:37:00 Position: [place] Physician s Sitting Body height 2020-05-01 60 [in_us] University 13:37:00 [place] Physician s Weight 2020-05-01 151 [lb_av] University of 13:37:00 [place] Physician s Body mass index 2020-05-01 29.49 kg/m2 University o f (BMI) [Ratio] 13:37:00 [place] Physicia ns Body temperature 2020-05-01 98.1 [degF] Method: [facility] 13:37:00 Temporal [place] Physician s Heart Rate 2020-05-01 97 /min University of 13:37:00 [place] Physician s Respiratory rate 2020-05-01 18 /min University of 13:37:00 [place] Physician s Systolic blood 2020-04-24 117 mm[Hg] Location: [place] [facility] 09:53:00 Position: [place] Physician s Sitting Diastolic blood 2020-04-24 83 mm[Hg] Location: [place]; University of pressure 09:53:00 Position: [place] Physician s Sitting Body height 2020-04-24 60 [in_us] University of 09:53:00 [place] Physician s Weight 2020-04-24 151 [lb_av] University of 09:53:00 [place] Physician s Body mass index 2020-04-24 29.49 kg/m2 University o f (BMI) [Ratio] 09:53:00 [place] Physicia ns Body temperature 2020-04-24 97.7 [degF] Method: University of 09:53:00 Temporal [place] Physician s Heart Rate 2020-04-24 118 /min University of :53:00 [place] Physician s Systolic blood 2019-10-20 154 mm[Hg] Location: [place]; [facility] 10:01:00 Position: [place] Physician s Sitting Diastolic blood 2019-10-20 96 mm[Hg] Location: [place]; [facility] 10:01:00 Position: [place] Physician s Sitting Body height 2019-10-20 60 [in_us] University 10:01:00 [place] Physician s Weight 2019-10-20 140 [lb_av] University of 10:01:00 [place] Physician s Body mass index 2019-10-20 27.34 kg/m2 University o f (BMI) [Ratio] 10:01:00 [place] Physicia ns Body temperature 2019-10-20 98.4 [degF] Method: Oral University of 10:01:00 [place] Physician s Heart Rate 2019-10-20 93 /min University 10:01:00 [place] Physician s Systolic blood 2019-10-13 132 mm[Hg] Location: [place]; [facility] pressure 09:41:00 Position: [place] Physician s Sitting Diastolic blood 2019-10-13 86 mm[Hg] Location: [place]; [facility] pressure 09:41:00 Position: [place] Physician s Sitting Weight 2019-10-13 140 [lb_av] University of 09:41:00 [place] Physician s Body mass index 2019-10-13 27.34 kg/m2 University o f (BMI) [Ratio] 09:41:00 [place] Physicia ns Body temperature 2019-10-13 98 [degF] Method: Oral University of 09:41:00 [place] Physician s Heart Rate 2019-10-13 93 /min Location: L [facility] of 09:41:00 Brachial [place] Physician s Artery; Respiratory rate 2019-10-13 14 /min Quality: Normal Universi ty of 09:41:00 [place] Physician s BP Systolic 2019-09-12 118 mm[Hg] Location: [facility]; [facility] of ::00 Position: [place] Physician s Sitting BP Diastolic 2019-09-12 86 mm[Hg] Location: [place]; [facility] of ::00 Position: [place] Physician s Sitting Height 2019-09-12 60 [in_us] University of 14:01:00 [place] Physician s Temperature 2019-09-12 98.6 [degF] Method: Oral University of :01:00 [place] Phys[facility] s Heart Rate 2019-09-12 116 /min Location: R [facility] 14:01:00 Brachial [place] [facility]ician s Artery; Quality: Normal Respiration Rate 2019-09-12 15 /min Quality: Normal Universi ty of 14:01:00 [place] Physician s BP Systolic 2019-01-27 116 mm[Hg] Location: [place]; [facility] of 09:02:00 Position: [place] Physician s Sitting BP Diastolic 2019-01-27 81 mm[Hg] Location: [place]; [facility] of 09:02:00 Position: [place] Physician s Sitting Height 2019-01-27 60 [in_us] University of 09:02:00 [place] Physician s Temperature 2019-01-27 98.4 [degF] Method: Oral University of 09:02:00 [place] Phys[facility] s Heart Rate 2019-01-27 103 /min University of 09:02:00 [place] Physician s BP Systolic 2019-01-25 115 mm[Hg] Location: [place]; [facility] of 11:14:00 Position: [place] Physician s Sitting BP Diastolic 2019-01-25 81 mm[Hg] Location: [place]; [facility] of 11:14:00 Position: [place] Physician s Sitting Height 2019-01-25 60 [in_us] University of 11:14:00 [place] [facility]ician s Weight 2019-01-25 142 [lb_av] University of 11:14:00 [place] Physician s Body Mass Index 2019-01-25 27.73 kg/m2 University o f Calculated 11:14:00 [place] Physician s Temperature 2019-01-25 98.2 [degF] Method: Oral University of 11:14:00 [place] [facility] s Heart Rate 2019-01-25 101 /min Location: R [facility] of 11:14:00 Radial; [place] Physician s Respiration Rate 2019-01-25 18 /min Quality: Normal Universi ty of 11:14:00 [place] Physician s BP Systolic 2019-01-04 120 mm[Hg] Location: [place]; [facility] of :34:00 Position: [place] Physician s Sitting BP Diastolic 2019-01-04 88 mm[Hg] Location: [place]; [facility] of :34:00 Position: [place] Physician s Sitting Temperature 2019-01-04 98.2 [degF] Method: Oral University of 08:34:00 [place] Physician s Heart Rate 2019-01-04 101 /min Location: R [facility] 08:34:00 Brachial [place] Physician s Artery; Respiration Rate 2019-01-04 16 /min Quality: Normal Universi ty of 08:34: [place] Physician s BP Systolic 2018-12-23 115 mm[Hg] Location: [facility]; [facility] of 11:: Position: [place] Physician s Sitting BP Diastolic 2018-12-23 84 mm[Hg] Location: [place]; [facility] 11:14:00 Position: [place] Physician s Sitting Height 2018-12-23 60 [in_us] University of 11:14:00 [place] Physician s Body Mass Index 2018-12-23 27.73 kg/m2 University o f Calculated 11:14:00 [place] Physician s Weight 2018-12-23 142 [lb_av] University of 11:14:00 [place] Physician s Temperature 2018-12-23 97.9 [degF] Method: Oral University of 11:14:00 [place] [facility] s Heart Rate 2018-12-23 99 /min Location: R [facility] 11:14:00 Brachial [place] [facility]ician s Artery; Respiration Rate 2018-12-23 14 /min University of 11:14:00 [place] Physician s BP Systolic 2018-12-23 117 mm[Hg] Location: [place]; [facility] of 10:06:00 Position: [place] Physician s Sitting BP Diastolic 2018-12-23 85 mm[Hg] Location: [facility]; [facility] of 10::00 Position: [place] Physician s Sitting Height 2018-12-23 60 [in_us] University of 10:06:00 [place] [facility]ician s Weight 2018-12-23 142 [lb_av] University of 10:06:00 [place] [facility] s Body Mass Index 2018-12-23 27.73 kg/m2 University o f Calculated 10:06:00 [place] [facility]ician s Temperature 2018-12-23 98.4 [degF] Method: Oral University of 10:06:00 [place] [facility] s Heart Rate 2018-12-23 97 /min University 10:06:00 [place] [facility] s BP Systolic 2018-11-28 114 mm[Hg] Location: [facility]; [facility] 10:36:00 Position: [place] Physician s Sitting BP Diastolic 2018-11-28 83 mm[Hg] Location: [place]; [facility] 10:36:00 Position: [place] Physician s Sitting Height 2018-11-28 60 [in_us] University of 10:36:00 [place] [facility] s Weight 2018-11-28 142 [lb_av] University of 10:36:00 [place] [facility] s Body Mass Index 2018-11-28 27.73 kg/m2 University o f Calculated 10:36:00 [place] [facility] s Heart Rate 2018-11-28 112 /min University of 10:36:00 [place] [facility] s BP Systolic 2018-11-14 109 mm[Hg] Location: [place]; [facility] 09:57:00 Position: [place] Physician s Sitting BP Diastolic 2018-11-14 71 mm[Hg] Location: [place]; [facility] 09:57:00 Position: [place] Physician s Sitting Height 2018-11-14 60 [in_us] University of 09:57:00 [place] [facility] s Weight 2018-11-14 142 [lb_av] University 09:57:00 [place] [facility] s Body Mass Index 2018-11-14 27.73 kg/m2 University o f Calculated 09:57:00 [place] [facility]ician s Temperature 2018-11-14 98.6 [degF] Method: [facility] 09:57:00 [place] [facility] s Heart Rate 2018-11-14 94 /min University of 09:57:00 [place] [facility]ician s BP Systolic 2018-06-08 133 mm[Hg] Location: [place]; University of 11:36:00 Position: [place] Physician s Sitting BP Diastolic 2018-06-08 93 mm[Hg] Location: [facility]; [facility] 11:36:00 Position: [place] Physician s Sitting Height 2018-06-08 60 [in_us] University of 11:36:00 [place] [facility] s Weight 2018-06-08 144 [lb_av] University of 11:36:00 [place] [facility] s Body Mass Index 2018-06-08 28.12 kg/m2 University o f Calculated 11:36:00 [place] [facility] s Temperature 2018-06-08 98.6 [degF] Method: University 11:36:00 Temporal [place] [facility] s Heart Rate 2018-06-08 104 /min Location: L [facility] 11:36: Brachial [place] [facility] s Artery; BP Systolic 2018-05-30 137 mm[Hg] Location: [place]; [facility] :19:00 Position: [place] Physician s Sitting BP Diastolic 2018-05-30 91 mm[Hg] Location: [place]; [facility] :19: Position: [place] [facility]ician s Sitting Height 2018-05-30 60 [in_us] University 11:19:00 [place] [facility] s Weight 2018-05-30 144 [lb_av] University 11:19: [place] [facility] s Body Mass Index 2018-05-30 28.12 kg/m2 University o f Calculated 11:19:00 [place] [facility] s Temperature 2018-05-30 97.8 [degF] Method: [facility] :19: Temporal [place] [facility] s Heart Rate 2018-05-30 108 /min University :19: [place] [facility] s BP Systolic 2018-05-11 140 mm[Hg] Location: [place]; [facility] :52:00 Position: [place] Physician s Sitting BP Diastolic 2018-05-11 98 mm[Hg] Location: [place]; [facility] :52:00 Position: [place] Physician s Sitting Height 2018-05-11 60 [in_us] University :52:00 [place] [facility] s Weight 2018-05-11 144 [lb_av] University :52:00 [place] [facility] s Body Mass Index 2018-05-11 28.12 kg/m2 University o f Calculated 10:52:00 [place] [facility] s Temperature 2018-05-11 97.9 [degF] Method: [facility] :52:00 Temporal [place] [facility] s Heart Rate 2018-05-11 115 /min University :52:00 [place] [facility] s Procedures Procedure Date / Time Performing Source Performed Clinician CT Renal Stone [id number] 2020-11-11 [facility] 00:00:00 Physicians [QL] CBC (INCLUDES DIFF/PLT) 2020-11-04 [facility] [place] 00:00:00 Physicians [QL] CULTURE, URINE, ROUTINE 2020-11-04 [facility] [place] 00:00:00 Physicians [QL] CULTURE, URINE, ROUTINE 2020-10-25 [facility] [place] 00:00:00 Physicians [QL] CBC (INCLUDES DIFF/PLT) 2020-10-[address] [facility] 00:00:00 Physicians [QL] URINALYSIS, COMPLETE 2020-09-17 [facility] W/REFLEX TO CULTURE 00:00:00 Physicians [QL] URINALYSIS, COMPLETE 2020-07-16 [facility] [facility] W/REFLEX TO CULTURE 00:00:00 Physicians [QL] CULTURE, URINE, ROUTINE 2020-07-[address] [facility] 00:00:00 Physicians [QL] BASIC METABOLIC PANEL 2020-07-11 [facility] W/EGFR 00:00:00 Physicians Central Line 2020-06-14 [facility] 00:00:00 Physicians [place] Insertion 2020-06-11 [facility] 00:00:00 Physicians [QL] VITAMIN D, 25 HYDROXY 2020-05-01 [facility] AND 1,25 DIHYDROXY, LC/MS/MS 00:00:00 Phy sicians [Q] CALCIUM 2020-05-01 [facility] 00:00:00 Physicians [QL] PTH-RELATED PROTEIN 2020-05-01 [facility] (PTH-RP) 00:00:00 Physicians [QL] URIC ACID 2020-05-01 [facility] 00:00:00 Physicians US Renal [id number] 2020-05-01 [facility] 00:00:00 Physicians MA Breast mammogram bilateral 2020-04-24 [facility] [id number] [facility] Abdomen/Pelvis w/wo 2020-04-11 [facility] contrast 94896 00:00:00 Physicians . [facility] - PAP 2019-10-20 [facility] 00:00:[address] Abdomen/Pelvis w/wo 2019-10-10 [facility] contrast 40483 00:00:[address] Abd Renal Protocol w/wo IV 2019-09-11 [facility] [id number] 00:00:[address] Renal Stone [id number] 2019-09-11 [facility] 00:00:00 Physicians [QLH] CULTURE, URINE, ROUTINE 2018[facility] [QLH] CBC (INCLUDES DIFF/PLT) 2018-12-23 [facility] 00:00:00 Physicians MRI Pelvis with and without 2018-12-05 [facility] contrast 51754 00:00:00 Physicians [QLH] CULTURE, URINE, ROUTINE 2018-11-28 [facility] Physicians [QLH] URINALYSIS, COMPLETE 2018-11-28 [facility] 00:00:00 Physicians [QLH] CBC (INCLUDES DIFF/PLT) 2018-11-28 [facility] Phys[facility] [QLH] CMP W/EGFR 2018-11-28 [facility] 00:00:00 Physicians MRI Abdomen/Pelvis w/wo 2018-11-14 [facility] contrast 31361 00:00:00 Physicians Abdomen AP view 21788 2018-08-01 [facility] 00:00:00 Physicians Abdomen AP view 37660 2018-06-08 [facility] 00:00:00 Physicians [QLH] CBC (INCLUDES DIFF/PLT) 2018-05-[facility] [QLH] BASIC METABOLIC PANEL 2018-05-30 [facility] W/EGFR 00:00:[address] Abd Renal Protocol w/wo IV 2018-05-30 [facility] [id number] 00:00:00 Physicians [H] C Urine Transplant 2018-05-30 [facility] 00:00:00 Physicians [H] Culture: Wound/Abscess 2018-05-30 [facility] w/Gram Stain 00:00:00 Physicians [H] PTH Profile 2018-05-11 [facility] 00:00:00 Physicians [QH] CALCIUM 2018-05-11 [facility] 00:00:00 Physicians [QLH] BUN/CREATININE RATIO 2018-05-11 [facility] W/EGFR 00:00:00 Physicians [B] VITAMIN D 25-HYDROXY 2018-05-11 [facility] 00:00:00 Physicians [QLH] CBC (INCLUDES DIFF/PLT) 2018-05-11 [facility] Physicians History of Colostomy [facility] Physicians History of Dilation And [facility] Curettage Of Cervical Stump Phys icians History of Hysteroscopy [facility] Physicians History of Ureteral stent [facility] [place] placement Physicians [place] of [facility] [place] Ventriculoperitoneal shunt Physi cians creation History of Exploratory [facility] [place] laparotomy Physicians Plan of Care Planned Activity Planned Date Details Comments Source Future Scheduled 2020-10-29 US Renal 40699 [facility] of Test 00:00:00 [code = 17008] [place] [facility] Future Scheduled 2020-10-29 US Renal 77788 [facility] Test 00:00:00 [code = 97121] [place] [facility] Diagnostic Test 2020-06-11 [facility] Pending 00:00:00 Insertion [code = [place] [facility] [place] Insertion] Future Scheduled 2020-04-[address] [facility] - Test 00:00:00 (#1) [code = [facility] INFLUENZA VACCINE (#1)] Diagnostic Test 2019-10-20 CT Abd Renal University o f Pending 00:00:00 Protocol w/wo IV [place] [facility] contrast 92727-56 [code = 03824-77] Diagnostic Test 2019-10-10 CT Abdomen/Pelvis [facility]y of Pending 00:00:00 w/wo [place] [address] [code = 51051] Diagnostic Test 2018-12-05 MRI Pelvis with [facility] of Pending 00:00:00 and without [place] [facility] s contrast 32747 [code = 00562] Diagnostic Test 2018-12-05 MRI Pelvis with Universit [facility] of Pending 00:00:00 and without [place] [facility] s contrast 32808 [code = 90416] Diagnostic Test 2018-12-01 Abdomen AP University of Pending 00:00:00 view 51740 [code [place] [facility] = 17962] Future Scheduled 2005-03-[address] [facility] - Test 00:00:00 WELLNESS (YEAR [address] or FIRST YEAR if no IPPE) [code = MEDICARE ANNUAL WELLNESS (YEAR 2 or FIRST YEAR if no IPPE)] Future Scheduled [address] [facility] - Test 00:00:00 [facility] neoplasm of cervix (procedure) [code = 545850907] Future Scheduled CT Abdomen/Pelvis Before 01May2020 [facility] of Test [place] [address] [code = 63335] Future Scheduled CT Abdomen/Pelvis Before 01May2020 Un iversity of Test w/wo contrast [place] [address]689 [code = 00825] Encounters Start End Encounter Admission Attending Care Care Encounter Source Date/Time Date/Time Type Type Clinicians Facility Department ID 2019-10-21 Inpatient U [facility] MED [id number] MH H 12:15:00 2018-12-13 Inpatient U [facility] URO [id number] MH H 17:12:36 2020-11-29 2020-11-29 EDUARDO George Minimally [id number] Univers 13:30:00 13:30:00 t; ILAN BARRERA M.D. Invasive ity of Erika TALAVERA [facility] [place] [facility] ans 2020-11-04 2020-11-04 EDUARDO Early Women's [id number] Univers 09:00:00 09:00:00 t; DEONDRE RAMSAY M.D. [place] - ity DEONDRE [facility] Erika Medical Physici [place] ans 2020-10-04 2020-10-04 EDUARDO Early Obstetrics [id number] Univers 09:00:00 09:00:00 t; DEONDRE RAMSAY M.D. and i [facility]rika Continuity Physi ci [facility] ans 2020-09-17 2020-09-17 EDUARDO Hernández Infectious 71 [id number] Univers 09:00:00 09:00:00 t; KEVIN, Diseases - it y marina LAGOS M.D. [facility] KEVIN Medical Physicsilvina James [place] ans 2020-08-12 2020-08-12 EDUARDO [facility] - [id number] Univers 09:45:00 09:45:00 t; IVETTE JENNINGS [place] [facility] ans 2020-07-16 2020-07-16 EDUARDO Das Family [id number] Univers 16:00:00 16:00:00 t; Erika RHOADES Medicine - itira [facility] VERONA Medical Ruby James [place] ans 2020-06-25 2020-06-25 Outpatient [facility] [id number] [facility] 10:53:00 10:53:00 2020-05-21 2020-05-21 Sintia TORRE, [facility] UTP [id number] Univers 16:00:00 16:00:00 t; Erika RHOADESPocahontas, [place] Ruby RHOADES M.D. ans 2020-05-01 2020-05-01 EDUARDO Quiroz Multispecia [id number] Univers 13:15:00 13:15:00 t; ANNIE JUAREZ [facility].D. [facility] Erika Physici ans 2020-04-24 2020-04-24 AppointEDUARDO [place] Women's [id number] Univers 10:00:00 10:00:00 t; LEXIS [facility] shawn [facility] Erika VILLASENOR [facility] Ruby James [place] ans 2020-04-08 2020-04-08 Outpatient [facility] URO [id number] [facility] 13:57:00 13:57:00 2020-04-08 2020-04-08 Sintia JUAREZ [facility] [id number] Univers 10:00:00 10:00:00 t; ANNIE [facility]. [facility] 2020-03-28 2020-03-28 EDUARDO [facility] - [id number] Univers 10:45:00 10:45:00 t; IVETTE JENNINGS [place] [facility] ans 2020-03-06 2020-03-06 Sintia VILLASENOR [facility] [id number] Univers 10:00:00 10:00:00 t; Mildred PIRES M.D. [place] Ruby PIRES M.D. ans 2019-12-08 2019-12-08 Appointpo JUAREZ [facility] Urology - [id number] Univers 08:45:00 08:45:00 t; ANNIE JUAREZ M.D. [facility] Erika Center Physici ans 2019-11-03 2019-11-03 Sintia TORRE [facility] [id number] Univers 14:30:00 14:30:00 t; VERONA, [facility].D. [facility] 2019-10-27 2019-10-27 AppointEDUARDO [facility] - [id number] Univers 10:15:00 10:15:00 t; ANNIE [facility].D. [facility] Physici ans 2019-10-20 2019-10-20 AppointEDUARDO [facility]'s [id number] Univers 10:15:00 10:15:00 t; DEONDRE [facility]. [facility] 2019-10-13 2019-10-13 Appointpo TORRE [facility] Family [id number] Univers 09:30:00 09:30:00 t; Erika [facility]HOADES [facility] Physicsilvina James [facility] 2019-09-12 2019-09-12 Sintia TORRE [facility] Family [id number] Univers 13:15:00 13:15:00 t; Erika RHOADES [facility] Physicsilvina James [facility] 2019-08-25 2019-08-25 Inpatient E [facility] MED [id number] [facility] 06:34:00 00:52:00 2019-03-21 2019-03-21 Appointpo PECK [facility] [id number] Univers 11:00:00 11:00:00 t; shawn NOEL Alvino MACHADO M.D. Physici cheo VOGT M.D. 2019-01-30 2019-01-30 Emergency E [facility] URO [id number] [facility] 18:32:00 18:32:00 2019-01-27 2019-01-27 Sintia RAMSAY [facility] Women's [id number] Univers 09:00:00 09:00:00 t; DEONDRE RAMSAY M.D. [facility] ty [facility] 2019-01-25 2019-01-25 Appointpo SAEED, [facility] Family [id number] Univers 10:30:00 10:30:00 t; ROBERTO Medicine - i ty of Erika SAEED [facility] ROBERTO Medical Justen cool M.D. [place] ans 2019-01-22 2019-01-22 Outpatient E [facility] MED [id number] [facility] 05:46:00 05:46:00 2019-01-12 2019-01-12 Outpatient [facility] URO [id number] [facility] 17:47:00 17:47:00 2019-01-12 2019-01-12 Appointmen EDUARDO RAMSAY UTP [id number] Univers 11:30:00 11:30:00 t; DEONDRE RAMSAY M.D. i ty of Hellen MENDOSA M.D. Physici ans 2019-01-12 2019-01-12 EDUARDO Quiroz [id number] Univers 07:30:00 07:30:00 t; ANNIE JUAREZ M.D. ity of Hellen VALENCIA M.D. Physici ans 2019-01-06 2019-01-06 Outpatient [facility] URO [id number] [facility] 10:09:00 10:09:00 2019-01-04 2019-01-04 Appointmen EDUARDO AKHTAR Family [id number] Univers 08:15:00 08:15:00 t; Erika PORTILLO Medicine i ty of Hellen AKHTAR Physici M.D. [facility] 2018-12-23 2018-12-23 Appointmen DIALLO [facility] Family [id number] Univers 11:00:00 11:00:00 t; MED PROVIDER, Medicine ity of PROVIDER, TCM [facility] Physici ans 2018-12-23 2018-12-23 Appointmen EDUARDO RAMSAY Women's [id number] Univers 09:40:00 09:40:00 t; DEONDRE RAMSAY M.D. Center i ty of Hellen MENDOSA M.D. Physici ans 2018-12-14 2018-12-13 Inpatient E [facility] [id number] [facility] 03:28:00 19:10:00 2018-12-07 2018-12-07 AppointEDUARDO Villa Urologic [id number] Univers 10:30:00 10:30:00 t; ANNIE JUAREZ M.D. Associates ity of [place], [place] M.DRebecca Physici ans 2018-11-28 2018-11-28 Appointmen KARON BOONE [facility] Women's [id number] Univers 10:45:00 10:45:00 t; Erika BOONE [place] ity [facility].DRebecca Physici ans 2018-11-28 2018-11-28 Appointmen EDUARDO RAMSAY [facility] [id number] Univers 09:40:00 09:40:00 t; DEONDRE RAMSAY M.D. i ty of [facility].D. Physici ans 2018-11-14 2018-11-14 Appointmen DEVENDRA [facility] Women's [id number] Univers 09:30:00 09:30:00 t; DEONDRE RAMSAY M.D. [place] i ty of [facility].Cici Physici ans 2018-08-10 2018-08-10 Appointmen EDUARDO JUAREZ [place] [id number] Univers 08:45:00 08:45:00 t; ANNIE JUAREZ M.D. Multi ity ANNIE, [facility].DRebecca Physici ans 2018-06-08 2018-06-08 Appointmen EDUARDO JUAREZ [place] [id number] Univers 09:45:00 09:45:00 t; ANNIE JUAREZ M.D. Multi ity ANNIE, [facility].DRebecca Physici ans 2018-05-30 2018-05-30 Appointmen DEVANTE [facility] Urologic [id number] Univers 10:30:00 10:30:00 t; Fiona GODFREY itira of LOW, P.AKarlene Sotelo P.A. ans 2018-05-11 2018-05-11 Appointmen EDUARDO JUAREZ [place] [id number] Univers 10:15:00 10:15:00 t; ANNIE JUAREZ M.D. Multi ity ANNIE, Specialty [place] M.DRebecca Physici ans 2018-04-15 2018-04-15 Appointmen EDUARDO JUAREZ [facility] [id number] Univers 08:45:00 08:45:00 t; ANNIE JUAREZ M.D. ity of [place] M.D. Physici ans 2010-06-10 2010-06-10 Appointmen TERRY [facility]'s [id number] [facility] 13:30:00 13:30:00 t; YOUSIF STEWART, [facility] Erika DODD M.D. Physici ans Results Test Description Test Test Results Result Source Time Comments Comments CT Renal Stone 2020-10- Radiation Dose CTDIVOL [place] [id number] 22 = 0 (mGy): DLP = 650.76 [place] 07:57:00 (mGy-cm)PROCEDURE Physici ans INFORMATION:Exam: CT Abdomen And Pelvis Without ContrastExam date and time: 11/18/2020 8:13 AMAge: 40 years oldClinical indication: Calculus of kidney; Additional info: N20.0 calculus ofkidney/n20.0 calculus of kidneyTECHNIQUE:Imaging protocol: Computed tomography of the abdomen and pelvis withoutcontrast.Reconst ructed images: Axial Sagittal and Coronal.Radiation optimization: All CT scans at this facility use at least one of thesedose optimization techniques: automated exposure control; mA and/or kVadjustment per patient size (includes targeted exams where dose is matched toclinical indication); or iterative reconstruction.COMPARIS ON:1. DX ABDOMEN/PELVIS WO IV CONTRAST CT 01/31/2019 12:[address] 10/21/2019 1:13:11 PMRADIATION DOSE METRICS:Total DLP (mGy-cm): 650.76FINDINGS:Lungs: Left basilar airspace changes possibly atelectasis persists.Pleural spaces: Incompletely imaged at least moderate sized left pleuraleffusion is again shown similar to prior exam. Partially imaged catheter withinthe pleural effusion again shown.Liver: Normal. No mass.Gallbladder and bile ducts: Gallbladder contractedPancreas: Normal. No ductal dilation.Spleen: Normal. No splenomegaly.Adrenal glands: Normal. No mass.Kidneys and ureters: As compared to the 2019 CT there has been resolution ofthe moderate right hydronephrosis as well as hydroureter. The obstructingureteral calculi no longer present. Currently there are multiple nonobstructingright renal calyceal calculi at mid and inferior calices measuring up to 6 mmposteriorly. Additionally within the more central aspect of the right renalcollecting system at the expected renal pelvis there is a 10 x 6 mmnonobstructing renal calculus. No ureteral calculus currently. Ureteraldiversion procedural changes noted. Left kidney and left ureter show no acuteobstructive abnormalities and are unremarkable.Stomach and bowel: Stomach and small bowel loops unremarkable. Xpur-yf-zbrrnjllqwjhvuf fecal material scattered throughout portions of the colon suggestive ofsome constipation. Left lower quadrant colostomy noted. Right lower quadrantileostomy with ureteral diversion /ileal conduit surgical changes.Appendix: No evidence of appendicitis. Appendix is normal.Intraperitoneal space: Unremarkable. No free air. No significant fluidcollection.Vascula ture: Unremarkable. No abdominal aortic aneurysm.Lymph nodes: Unremarkable. No enlarged lymph nodes.Urinary bladder: Urinary bladder not visualizedReproductive: Lobular appearance of the uterus possibly underlying fibroidalthough not well assessed. Intrauterine device again noted. Adnexal regionsunremarkable. Overall similar to prior exam.Bones/joints: No acute osseous abnormalities, spina bifida and dysplasticacetabula and resorption of right femoral head again shown. Rightward scolioticcurvature lumbar spine.Soft tissues: Diastasis rectus abdominus musculature anterior abdominal wallagain shown. Continue nonspecific soft tissue thickening posterior sacral andnatal cleft regions. Correlate for decubitus ulcer sequela. No collections.IMPRESSION: 1. Multiple nonobstructing right renal calyceal calculi and a right renalpelvis calculus measuring up to 10 x 6 mm without acute hydronephrosis orperinephric fat stranding. No ureteral obstructing calculi currently.2. Surgical changes as noted above again shown3. Incompletely imaged at least moderate sized left pleural effusion againnoted within which catheter is presentScott Cristina MASON On 11/18/2020 09:13:57; [id number]--Ymwn by: Santi Evans MDDictated Date/time: 11/18/20 09:14Electronically Signed by: Santi Evans MD 11/18/2108:14FINAL REPORT [QL] CBC (INCLUDES DIFF/PLT) 2020-11-04 00:00:00 Test Item Value Reference Range Interpretation Comme nts WHITE BLOOD CELL COUNT 5.4 {Thousand/u} 3.8-10.8 N (test code = WHITE BLOOD CELL COUNT) RED BLOOD CELL COUNT 4.80 {Million/uL} 3.80-5.10 N (test code = RED BLOOD CELL COUNT) HEMOGLOBIN; Normal (test 12.7 g/dl 11.7-15.5 N code = 91183-7) HEMATOCRIT; Normal (test 41.5 % 35.0-45.0 N code = 4544-3) MCV; Normal (test code = 86.5 fL 80.0-100.0 N 787-2) MCHC; Below Low 30.6 g/dl 32.0-36.0 Threshold (test code = 89212-0) RDW; Normal (test code = 14.2 % 11.0-15.0 N 788-0) ABSOLUTE NEUTROPHILS 3100 {cells/uL} 9337-6920 N (test code = ABSOLUTE NEUTROPHILS) ABSOLUTE LYMPHOCYTES 1625 {cells/uL} 850-3900 N (test code = ABSOLUTE LYMPHOCYTES) ABSOLUTE MONOCYTES (test 545 {cells/uL} 200-950 N code = ABSOLUTE MONOCYTES) ABSOLUTE EOSINOPHILS 108 {cells/uL} 15-500 N (test code = ABSOLUTE EOSINOPHILS) ABSOLUTE BASOPHILS (test 22 {cells/uL} 0-200 N code = ABSOLUTE BASOPHILS) NEUTROPHILS (test code = 57.4 % N NEUTROPHILS) LYMPHOCYTES (test code = 30.1 % N LYMPHOCYTES) MONOCYTES; Normal (test 10.1 % N code = 04382-6) EOSINOPHILS; Normal 2.0 % N (test code = 06444-5) BASOPHILS; Normal (test 0.4 % N code = 37844-2) COMMENT(S) (test code = See Comment Revi ew of peripheral smear COMMENT(S)) confirmsautomat ed results. PLATELET COUNT; Normal TNP N TEST( S) NOT PERFORMED: (test code = 777-3) PLATELET COUNT Unable to report due tosi gnificant platelet clumpi ng.SPECIMEN RECEIVED DATE A ND TIME: Review of peripheral smear confirmsautomated results.[facility] Retroperitoneal Complete [id number] 11:47:00PROCEDURE INFORMATION:Exam: US Retroperitoneal Complete, Kidneys Aorta IVC.Exam date and time: 11/01/2020 11:53 AMAge: 40 years oldClinical indication: Calculus of kidney; Additional info: /n20.0 calculus ofkidneyTECHNIQUE:Imaging protocol: Real-time ultrasound of the retroperitoneum with imagedocumentation. Complete exam.COMPARISON:DX ABDOMEN/PELVIS WO IV CONTRAST CT 01/31/2019 12:29 AMFINDINGS:Right kidney: The right kidney measures not identified Left kidney: Limited assessment. The left kidney measures 9.3 x 5.6 x 6.4 cmNo stones. Ftfs-qc-zermgfah left hydronephrosis.Aorta: Not well seen.Common iliac arteries: Not well seen.Inferior vena cava: Not well seen.Bladder: Not well seenIMPRESSION:Limited assessment demonstrating tcky-po-bnaqqhsj left hydronephrosis. Theright kidney was not visualized. If further imaging is desired considerfollow-up CTChrjosé miguel Stevenson MD On 11/01/2020 14:36:52; [id number]--Ubrx by: Lester Stevenson MDDictated Date/time: 11/01/20 14:37Electronically Signed by: Lester Stevenson 11/01/2113:37FINAL REPORTUnCentral [facility] Medical Center Physicians[QL] CBC (INCLUDES DIFF/PLT)2020-10-04 00:00:00 Test Item Value Reference Range Interpretation Comments WHITE BLOOD CELL 6.5 3.8-10.8 N COUNT (test code = {Thousand/u} WHITE BLOOD CELL COUNT) RED BLOOD CELL 4.89 3.80-5.10 N COUNT (test code = {Million/uL} RED BLOOD CELL COUNT) HEMOGLOBIN; Normal 12.8 g/dl 11.7-15.5 N (test code = 28367-0) HEMATOCRIT; Normal 41.1 % 35.0-45.0 N (test code = 4544-3) MCV; Normal (test 84.0 fL 80.0-100.0 N code = 787-2) MCHC; Below Low 31.1 g/dl 32.0-36.0 Threshold (test code = 77576-2) RDW; Above High 15.4 % 11.0-15.0 Threshold (test code = 788-0) ABSOLUTE 3608 1185-8982 N NEUTROPHILS (test {cells/uL} code = ABSOLUTE NEUTROPHILS) ABSOLUTE 2061 850-3900 N LYMPHOCYTES (test {cells/uL} code = ABSOLUTE LYMPHOCYTES) ABSOLUTE MONOCYTES 663 {cells/uL} 200-950 N (test code = ABSOLUTE MONOCYTES) ABSOLUTE 150 {cells/uL} 15-500 N EOSINOPHILS (test code = ABSOLUTE EOSINOPHILS) ABSOLUTE BASOPHILS 20 {cells/uL} 0-200 N (test code = ABSOLUTE BASOPHILS) NEUTROPHILS (test 55.5 % N code = NEUTROPHILS) LYMPHOCYTES (test 31.7 % N code = LYMPHOCYTES) MONOCYTES; Normal 10.2 % N (test code = 08378-3) EOSINOPHILS; 2.3 % N Normal (test code = 85342-2) BASOPHILS; Normal 0.3 % N (test code = 51051-8) COMMENT(S) (test See Comment Review of p eripheral code = COMMENT(S)) smear con firmsautomated results. PLATELET COUNT; TNP N TEST(S) NOT PERFORMED: Normal (test code PLATELET COUNT Unable = 777-3) to report due tosignificant p latelet clumping.SPECIM EN RECEIVED DATE A ND TIME: Review of peripheral smear confirmsautomated results.[facility][QL] URINALYSIS, COMPLETE W/REFLEX TO [id number] 12:16:00 Test Item Value Reference Range Interpretation Comments COLOR; Normal (test YELLOW YELLOW N code = 5778-6) APPEARANCE (test code = TURBID CLEAR A APPEARANCE) SPECIFIC GRAVITY; 1.017 1.001-1.035 N Normal (test code = 2965-2) PH; Abnormal (test code > OR = 8.5 5.0-8.0 A = 2756-5) GLUCOSE; Normal (test NEGATIVE NEGATIVE N code = 1547-9) BILIRUBIN; Normal (test NEGATIVE NEGATIVE N code = 64875-3) KETONES; Normal (test NEGATIVE NEGATIVE N code = 25387-7) OCCULT BLOOD; Normal NEGATIVE NEGATIVE N (test code = 16637-9) PROTEIN; Abnormal (test 2+ NEGATIVE A code = 76217-1) NITRITE (test code = NEGATIVE NEGATIVE N NITRITE) LEUKOCYTE ESTERASE 2+ NEGATIVE A (test code = LEUKOCYTE ESTERASE) WBC; Abnormal (test 6-10 < OR = 5 A code = 6690-2) RBC; Normal (test code 0-2 < OR = 2 N = 789-8) SQUAMOUS EPITHELIAL 6-10 < OR = 5 A CELLS; Abnormal (test code = 16303-1) BACTERIA; Abnormal FEW NONE SEEN A (test code = 630-4) CALCIUM OXALATE MODERATE NONE OR FEW A CRYSTALS; Abnormal (test code = 22768-9) TRIPLE PHOSPHATE MANY NONE OR FEW A CRYSTALS; Abnormal (test code = 5814-9) HYALINE CAST; Normal NONE SEEN NONE SEEN N (test code = 02883-6) NOTE (test code = NOTE) See Below This urine was analyzed for th e presence of WBC , RBC, bacteria, casts, and othe r formed elements . Only those [place] seen were repor alda. [facility][Q] REFLEXIVE URINE [id number] 12:16:00 Test Item Value Reference Range Interpretation Comments REFLEXIVE URINE See Below CULTURE ALEXSANDER CATED - CULTURE (test code = RESULTS TO FOLLOW REFLEXIVE URINE CULTURE) [facility][QL] CULTURE, URINE, [id number] 12:16:00 Test Item Value Reference Range Interpretation Comments CULTURE (test code = See Comment CULTURE , URINE, CULTURE) ROUTINE Praveen ro Number: [id number] Test Status: Final Specimen Source: URINE Specimen Qualit y: Adequate Resul t: Upon furt her incubation: Growth of mixed alvarez was isolated, sugge sting probable contamination. No further testing will be performed. If clinically alexsander cated, recollection us ing a method to minim ize contamination, with prompt transfer to Urine Culture Jennings sport Tube, is recomm ended. [facility] Digital Mammo Screen Chepe w myra [id number] 10:37:00BILATERAL FIRST EVER DIGITAL SCREENING MAMMOGRAM 3D/2D WITH CAD: 05/24/2020CLINICAL: /Routine. Current study was evaluated with a Computer Aided Detection (CAD) system. COMPARISON:There are no comparison films available as the patient states thisis their baseline mammogram. TECHNIQUE: Digital Breast Tomosynthesis was performed and utilized forInterpretation. Current study was also evaluated with a Computer AidedDetection (CAD) system.FINDINGS:The tissue of both breasts is heterogeneously dense, which could obscuredetection of small masses. Technologist indicates that the patient is confined to a wheelchair whichlimited positioning. Best images obtained were submitted for review. Multiplebenign appearing masses/densities are noted bilaterally. There are benign appearing calcifications in both breasts. No significant masses, calcifications, or other findings are seen in eitherbreast. IMPRESSION: B ENIGNRECOMMENDATION:There is no mammographic evidence of malignancy. A 1 yearscreening mammogram is recommended.(05/25/2021) This exam was interpreted [id number] for [facility]. Lino Levi M.D. jt/penrad:05/24/2020 11:22:10 Weight Checker(s): RT Agueda(R)(M), [facility] sent: BI-RADS 1/2 Mammogram BI-RADS: 2 Benign--Read by: Lino Levi MDDictated Date/time: 05/24/20 11:22Electronically Signed by: Lino Levi MD 05/24/2011:22FINAL REPORTUnCentral [facility] [Q] [id number] 14:46:00 Test Item Value Reference Range Interpretation Comments CALCIUM (test code = CALCIUM) 9.4 mg/dl 8.6-10.2 N [facility][QL] URIC [id number] 14:46:00 Test Item Value Reference Range Interpretation Comments URIC ACID; Normal 3.9 mg/dl 2.5-7.0 N Therapeuti c target for (test code = 3086-6) gout pa tients: <6.0 mg/dL [facility][QL] VITAMIN D, 25 HYDROXY AND 1,25 DIHYDROXY, LC/MS/[id number] 14:46:00 Test Item Value Reference Range Interpretation Comments VITAMIN D, 40 ng/ml 30-100 Vitamin D, 25-H ydroxy reports 25-OH, TOTAL concentrations of twocommon (test code = forms, 25-OHD2 and 25-OHD3. VITAMIN D, 25-OHD3 indicat esboth 25-OH, TOTAL) endogenous pro duction and supplementation .25-OHD2 is an indicator of ex ogenous sources, suchas diet or supplementation . Therapy is based onmeasure ment of Total 25-OHD, with le vels <20 ng/mLindicative of Vitamin D deficiency, i le levelsbetween 2 0 ng/mL and 30 ng/mL suggest insufficiency.O ptimal levels are > or = 30 n g/mL. Vitamin D is fat-solubl e and therefore inadv ertentor intentional ing estion of excessively hig h amountscould be toxic. Studi es in children and adults sugg estblood levels would ne ed to exceed 150 ng/mL befor ethere is any concern. Juan MF, Travis ROQUE, Muna hernadez JOHNSON, et al., Evaluation , treatment,and p revention of vitamin D defic iency: an EndocrineSociet y clinical practice guidel ine. J Clin.Endocrinol . Metab. 2011;96(7):1911 -30. VITAMIN D, 40 ng/ml Reference Range Not 25-OH, D3 (test established This test was code = VITAMIN developed and its analytical D, 25-OH, D3) performance ch aracteristics have been deter mined by [employer]. It has not been cleared or appr ivana by theFDA. This as say has been validated pursu ant to the CLIA regulation s and is used for clinical pu rposes. VITAMIN D, <4 Reference Range Not 25-OH, D2 (test established This test was code = VITAMIN developed and its analytical D, 25-OH, D2) performance ch aracteristics have been deter mined by [employer]. It has not been cleared or appr ivana by theFDA. This as say has been validated pursu ant to the CLIA regulation s and is used for clinical pu rposes.See Note 1 Note 1 F or additional information, pl ease refer to http://educatio n.[employer]/faq/FA V274 (This link is being p rovided for informational/e ducational purposes only.) VITAMIN D, 1,25 60 pg/ml 18-72 See Note 1 (OH)2, TOTAL (test code = VITAMIN D, 1,25 (OH)2, TOTAL) VITAMIN D3, 1,25 60 pg/ml See Note 1 (OH)2 (test code = VITAMIN D3, 1,25 (OH)2) VITAMIN D2, 1,25 <8 Vitamin D3, 1,25(OH)2 (OH)2 (test code indicates b oth = VITAMIN D2, endogenousprod uction and 1,25 (OH)2) supplementation . Vitamin D2, 1,25(OH)2is an indicator of exogenous sourc es, such as diet orsuppleme ntation. Interpretation and therapy are basedon izzy surement of Vitamin D, 1,25 (OH)2, Total.See Note 1See Note 2 Note 1 This nelson t was developed and i ts analytical performance efrain racteristics have been deter mined by [employer]. It has not been cleared or appr ivana by theFDA. This as say has been validated pursu ant to the CLIA regulation s and is used for clinical pu rposes. Note 2 For additional information, please refer to http://educatio n.[employer].com/faq/FA Q199 (This link is being p rovided for informational/e ducational purposes only.) [facility][QL] PTH-RELATED PROTEIN (PTH-RP)2020-05-01 14:46:00 Test Item Value Reference Range Interpretation Comments PTH-RP (test 10 pg/ml This is a C-ter neno PTH-RP code = assay. PTH-RP i s useful in PTH-RP) thedifferential diagnosis of hypercalcemia a nd levels may beelevated in p atients with tumor-associate d hypercalcemia.E levated results may also be obs erved in patients with renaldisea se. This test was developed and i ts analytical performancechar acteristics have been determined by [facility] . It has not beencleared or approved by FDA. This assay has been validatedpursua nt to the CLIA regulations and is used for clinicalpurpose s. [facility]. [facility] - [id number] 00:00:00 Test Item Value Reference Range Interpretation Comments Case (test code = Click ImageLink button N Case) for report. [facility][QLH] CBC (INCLUDES DIFF/PLT)2018-12-23 13:20:01 Test Item Value Reference Range Interpretation Comments WBC (test code = 8.9 {K/CMM} 3.7-10.4 6690-2) RBC (test code = 4.90 {M/CMM} 4.20-5.40 789-8) Hgb; Below Low 11.1 g/dl 12.0-16.0 Threshold (test code = 718-7) Hct; Below Low 34.8 % 36.0-48.0 Threshold (test code = 19104-0) MCV; Below Low 71.1 fL 80.0-98.0 Threshold (test code = 787-2) MCH; Below Low 22.8 pg 27.0-31.0 Threshold (test code = 785-6) MCHC (test code = 32.0 g/dl 32.0-36.0 786-4) RDW; Above High 25.0 % 11.5-14.5 Threshold (test code = 788-0) Platelet (test code See Note 133-450 Platelet s clumped in = 09275-4) EDTA, unable to estimate, sugge st recollection in a bluetop tube wi th an order for "Blue Top Platelet Count" Mean Platelet 8.6 fL 7.4-10.4 Volume (test code = 80804-9) [facility]] [id number] 13:20:01 Test Item Value Reference Range Interpretation Comments Segmented Neutrophils (test code 66.6 % 45.0-75.0 = 99591-2) Monocytes (test code = 24740-8) 8.6 % 2.0-12.0 Lymphocytes (test code = 67487-9) 21.0 % 20.0-40.0 Eosinophils (test code = 27493-9) 3.2 % 0.0-4.0 Basophils (test code = 706-2) 0.6 % 0.0-1.0 Segs-Bands # (test code = 5.9 {K/CMM} 1.5-8.1 62893-5) Lymphocytes # (test code = 1.9 {K/CMM} 1.0-5.5 47404-7) Monocytes # (test code = 21555-5) 0.8 {K/CMM} 0.0-0.8 Eosinophils # (test code = 0.3 {K/CMM} 0.0-0.5 38320-0) Basophils # (test code = 83902-7) 0.1 {K/CMM} 0.0-0.2 Plt Morphology (test code = Plt Clumped Normal Morphology) Anisocyte; Abnormal (test code = 1+ None Seen A 70704-4) Microcyte (test code = Microcyte) 2+ None Seen A [facility]] CULTURE, URINE, [id number] 13:20:01 Test Item Value Reference Range Interpretation Comments ORGANISM (test Acinetobacter code = 699-9) baumanniiEnterococcus Species FINAL REPORT 50,000 - 100,000 CFU/mL (test code = Acinetobacter baumannii , FINAL REPORT) Multi-drug Resistant Kukjybdg79,000 - 50,000 CFU/mL Enterococcus Species 10,000 - 50,000 CFU/mL Yeast [facility][H] [id number] 13:20:01 Test Item Value Reference Range Interpretation Comments ORGANISM (test code = Enterococcus 699-9) Species Ampicillin (test code - S = Ampicillin) Levofloxacin (test - R code = Levofloxacin) Nitrofurantoin (test - S code = Nitrofurantoin) Tetracycline (test - R code = Tetracycline) Vancomycin (test code SEE NOTES S S= Roxanne ceptible, = Vancomycin) R= Resistant, I= Intermediate, N/A= Not Applicable [facility][H] [id number] 13:20:01 Test Item Value Reference Range Interpretation [...] Tobramycin (test code = <=4 S Tobramycin) [facility][H] [id number] 13:20:01 Test Item Value Reference Range Interpretation Comments ORGANISM (test code = Acinetobacter baumannii 699-9) Colistin (test code = .38 S Colistin) Minocycline (test code 1.5 S = Minocycline) [facility] 2018-12-06 10:08:00Clinical indication: R58- excessive bleedingComparison: CT abdomen pelvis 04/12/2018TECHNIQUE: Multiplanar and multisequence magnetic resonance imaging of thepelvis were obtained with and without IV contrast.IV contrast: 13 mL DotaremFINDINGS:The inferior most portion of the pelvis including portions of the vagina andanal canal were not included on the scan field of view.Reproductive organs: The uterus is anteverted. There are multiple A0ebfulsexmcg uterine fibroids. A 5.1 x 4.2 x [...] greater trochanteric bursitis.7. Left lower quadrant colostomy.SL: [id number]--Idtn by: Teresa Newsome MDDictated Date/time: 12/06/18 13:39Electronically Signed by: Teresa Newsome MD 12/06/1912:56FINAL REPORT [facility]] CMP [id number] 11:27:01 Test Item Value Reference Range Interpretation Comments Sodium Level 137 {mEq/l} 135-145 (test code = 2951-2) Potassium Level 4.2 {mEq/l} 3.5-5.1 (test code = 2823-3) Chloride Level 104 {mEq/l} 95-109 (test code = 2075-0) Carbon Dioxide 24 {mEq/l} 24-32 (test code = 8-9) AGAP (test code = 13.2 {mEq/l} 10.0-20.0 48470-0) Glucose Lvl (test 95 mg/dl 70-99 Adult refe rence range code = 2345-7) values reflec t the clinical guidel inesof the [place] Diabet es Association. Creatinine Lvl 0.80 mg/dl 0.50-1.40 (test code = 2160-0) Blood Urea 14 mg/dl 7-22 Nitrogen (test code = 3094-0) BUN/Creatinine 18 6-25 Ratio (test code = 3097-3) Total Protein; 9.1 g/dl 6.4-8.4 Above High Threshold (test code = 2885-2) Albumin Lvl (test 3.7 g/dl 3.5-5.0 code = 1751-7) Globulin; Above 5.4 g/dl 2.7-4.2 High Threshold (test code = 63191-6) A/G Ratio (test 0.7 0.7-1.6 code = 1759-0) Calcium Level 9.9 mg/dl 8.5-10.5 Total (test code = 34370-2) ALT (test code = 23 u/l 0-65 1743-4) AST (test code = 17 u/l 0-37 85265-0) Bili Total (test 0.2 mg/dl 0.2-1.3 code = 1975-2) Alk Phos (test 77 u/l 39-136 code = 1783-0) eGFR (test code = 107 The eGFR i s calculated 11974-8) {ML/MIN/1.7} using the CKD-E PI formula. In [...] be multiplied by t he estimated BMI. [facility]] CBC (INCLUDES DIFF/PLT)2018-11-28 11:27:01 Test Item Value Reference Range Interpretation Comments WBC (test code = 9.4 {K/CMM} 3.7-10.4 6690-2) RBC (test code = 5.19 {M/CMM} 4.20-5.40 789-8) Hgb; Below Low 11.6 g/dl 12.0-16.0 Threshold (test code = 718-7) Hct (test code = 36.4 % 36.0-48.0 33142-0) MCV; Below Low 70.1 fL 80.0-98.0 Threshold (test code = 787-2) MCH; Below Low 22.4 pg 27.0-31.0 Threshold (test code = 785-6) MCHC; Below Low 31.9 g/dl 32.0-36.0 Threshold (test code = 786-4) RDW; Above High 30.7 % 11.5-14.5 Threshold (test code = 788-0) Platelet (test code See Note 133-450 Platelet s clumped in = 95630-7) EDTA, unable to estimate, sugge st recollection in a bluetop tube wi th an order for "Blue Top Platelet Count" Mean Platelet 8.2 fL 7.4-10.4 Volume (test code = 79140-8) [facility]] CULTURE, URINE, [id number] 11:27:01 Test Item Value Reference Range Interpretation Comments FINAL REPORT (test Specimen contains 3 or code = FINAL more potential pathogens; REPORT) recommend correlation withurinalysis; if catheterized specimen recommend removal and recollection. Ifclinical situation warrants please call the laboratory for further testing. COMicrobiology [phone]. [facility]iciansSURGICALLY OBTAINED CULTURE + GRAM [id number] 12:12:00 Test Item Value Reference Range Interpretation [...] No Interpretations Established <0 or >4 ANAEROBIC [id number] 05:31:00 Test Item Value Reference Range Interpretation Comments CULTURE (BEAKER) (test No anaerobes isolated code = 1095) URINE [id number] 11:06:00 Test Item Value Reference Range Interpretation [...] = 25) Resistant <0 or >4 URINE [id number] 11:03:00 Test Item Value Reference Interpretation Comments [...] Dr. lopez request for avycaz and zerbaxaCT, [id number] 07:41:00FINAL REPORT INDICATION:37-year-old female status post recent [...] LozanoMDReport Verified Date/Time: 06/29/2018 07:41:57 Reading Location: [facility] Diagnostic Imaging Reading Room - [place] [address] W/PLT COUNT & AUTO [id number] 07:07:00 Test Item Value Reference Range Interpretation [...] (BEAKER) (test code = 2801) BASIC METABOLIC [id number] 06:01:00 Test Item Value Reference Range Interpretation [...] PATIEN TS. CBC W/PLT COUNT & AUTO [id number] 22:22:00 Test Item Value Reference Range Interpretation [...] (BEAKER) (test code = 2801) BASIC METABOLIC [id number] 21:08:00 Test Item Value Reference Range Interpretation [...] PATIEN TS. RAD, CHEST, 1 VIEW, NON [id number] 13:37:00Reason for exam:->eval for pneumothoraxReason for exam:->in [...] MDReport Verified Date/Time: 06/28/2018 13:37:49 Reading Location: [facility] Radiology Reading Room CBC W/PLT COUNT & AUTO [id number] 09:50:00 Test Item Value Reference Range Interpretation [...] PERCENT (BEAKER) (test code = 2801) [place], DIRECTOR OF CARDIOPULMONARY SERVICES IN OR/30 MINUTE [id number] 09:43:00Reason for exam:- >PCNLIs the patient ?->NoWhen [...] of 8 static images were acquired. Signed: Elena [facility]. [facility] Verified Date/Time: 06/28/2018 09:43:00 Reading Location:[facility] Radiology Reading Room 09:43 AMBASIC METABOLIC [id number] 07:59:00 Test Item Value Reference Range Interpretation [...] APPLICABLE FOR DIALYSIS PATIEN TS. HEMOGLOBIN AND [id number] 14:41:00 Test Item Value Reference Range Interpretation Comments HEMOGLOBIN (BEAKER) (test code = 6.5 GM/DL 11.2-15.7 L 410) HEMATOCRIT (BEAKER) (test code = 23.1 % 34.1-44.9 L 411) BASIC METABOLIC [id number] 08:36:00 Test Item Value Reference Range Interpretation [...] PATIEN TS. CBC W/PLT COUNT & AUTO [id number] 05:49:00 Test Item Value Reference Range Interpretation [...] (BEAKER) (test code = 2801) HEMOGLOBIN AND [id number] 14:34:00 Test Item Value Reference Range Interpretation Comments HEMOGLOBIN (BEAKER) (test code = 7.0 GM/DL 11.2-15.7 L 410) HEMATOCRIT (BEAKER) (test code = 24.7 % 34.1-44.9 L 411) CBC W/PLT COUNT & AUTO [id number] 10:55:00 Test Item Value Reference Range Interpretation [...] (BEAKER) (test code = 2801) BASIC METABOLIC [id number] 06:21:00 Test Item Value Reference Range Interpretation [...] PATIEN TS. CBC W/PLT COUNT & AUTO [id number] 14:39:00 Test Item Value Reference Range Interpretation [...] = 2801) RAD, CHEST, 1 VIEW, NON [id number] 10:16:00Reason for exam:->Post Power PICC insertion RUE for tip verificationShould this be performed at the bedside?->YesFINAL REPORT AP chest HISTORY: PICC placement COMPARISON: None IMPRESSION:Right arm PICC present with tip at upper SVC. SVC filter present. 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 Grossly normal cardiac silhouette. Right lung clear. Moderate left effusion. Signed: Satish Kerr MDReport VerifiedDate/Time: 06/25/2018 10:16:18 Reading Location: [facility] B1 C013X Ortho Consult Reading Room BASIC METABOLIC [id number] 09:58:00 Test Item Value Reference Range Interpretation [...] PATIEN TS. CBC W/PLT COUNT & AUTO [id number] 13:38:00 Test Item Value Reference Range Interpretation [...] (BEAKER) (test code = 2801) BASIC METABOLIC [id number] 13:03:00 Test Item Value Reference Range Interpretation [...] PATIEN TS. BODY FLUID CULTURE + GRAM [id number] 16:53:00 Test Item Value Reference Interpretation Comments [...] blood (BEAKER) (test code = cells seen 123044) URINE [id number] 10:14:00 Test Item Value Reference Range Interpretation [...] Vancomycin (test code S = 13) BLOOD [id number] 11:00:00 Test Item Value Reference Range Interpretation Comments CULTURE (BEAKER) (test No growth in 5 days code = 1095) BLOOD [id number] 06:00:00 Test Item Value Reference Range Interpretation Comments CULTURE (BEAKER) (test No growth in 5 days code = 1095) BASIC METABOLIC [id number] 04:43:00 Test Item Value Reference Range Interpretation [...] DIALYSIS PATIEN TS. URINALYSIS W/ REFLEX URINE [id number] 15:11:00 Test Item Value Reference Range Interpretation Comments COLOR (BEAKER) (test code = 470) [place] CLARITY (BEAKER) (test code = 469) Hazy [...] code = 2795) ANG, NEPHROSTOMY, PERC, EXTERNAL [id number] 13:43:00Reason for exam:- >right obstructing stone with UTI, needs right PCNU if possible or PCN if not FINAL REPORT Fluoroscopic and ultrasound guided right nephroureterostomy tube placement, 06/12/2018. Clinical History: Obstructing stone at the junction of the right distal ureter and ileoconduit with hydronephrosis and urosepsis. Patient has a history of spina bifida/caudal re gression. Modality: Sonography and fluoroscopy Executive Vice President: Faisal Felix MD. Sailing Officer: None. Sedation: General anesthesia provided by the [...] then removed. The tract wasdilated to 8 Senegalese. An 8.5 Senegalese by 28 cm nephroureterostomy catheter was then [...] Felix Verified Date/Time: 06/12/2018 13:43:17 Reading Location: [place] [id number] Angio Body Reading Room (HEMOGRAM ONLY)2018-06-12 10:29:00 [...] and blue (Citrate) tube. spoke to RN ID:[id number] NUCLEATED RED BLOOD 0 /100 WBC 0-0 CELLS (BEAKER) (test code = 413) BASIC METABOLIC [id number] 06:52:00 Test Item Value Reference Range Interpretation [...] S NOT APPLICABLE FOR DIALYSIS PATIEN TS. [id number] 06:37:00 Test Item Value Reference Range Interpretation [...] 2.5-3.5 for patients with mechanical heart valves.CT, [id number] 18:04:00FINAL REPORT CT scan of the abdomen [...] MDReport Verified Date/Time: 06/11/2018 18:04:02 Reading Location: [address] Consult Reading Room PREGNANCY SCREEN, [id number] 15:46:00 Test Item Value Reference Range Interpretation Comments TEST URINE (BEAKER) (test Negative code = 583) URINALYSIS W/ REFLEX URINE [id number] 12:32:00 Test Item Value Reference Range Interpretation [...] SOURCE(BEAKER) (test code = 2795) URINALYSIS W/ [id number] 12:32:00 Test Item Value Reference Range Interpretation [...] code = Urine, Urostomy 2795) BASIC METABOLIC [id number] 06:01:00 Test Item Value Reference Range Interpretation [...] DIALYSIS PATIEN TS. LACTIC ACID, VENOUS, WHOLE [id number] 05:31:00 Test Item Value Reference Range Interpretation Comments LACTATE BLOOD VENOUS (2) (BEAKER) 0.8 mmol/L 0.5-2.2 (test code = 2872) Effective 01/01/2016: Units/Reference Range ChangeNew: 0.5-2.2 mmol/L Previous: 5-20 mg/[id number] 05:20:00 Test Item Value Reference Range Interpretation Comments PARTIAL THROMBOPLASTIN TIME 35.9 seconds 22.5-36.0 (BEAKER) (test code = 760) PROTHROMBIN [id number] 05:19:00 Test Item Value Reference Range Interpretation [...] code = 2801) LACTIC ACID, ARTERIAL, WHOLE [id number] 02:05:00 Test Item Value Reference Range Interpretation Comments LACTATE BLOOD 0.6 mmol/L 0.5-2.2 Specimen sligh tly ARTERIAL (2) (BEAKER) hemoly zed (test code = 2874) Effective 01/01/2016: Units/Reference Range ChangeNew: 0.5-2.2 mmol/L Previous: 5-20 mg/[id number] 01:43:00 Test Item Value Reference Range Interpretation Comments MAGNESIUM (BEAKER) 2.0 mg/dL 1.6-2.6 Specimen moderately (test code = 627) hemolyzed [id number] 01:43:00 Test Item Value Reference Range Interpretation Comments PHOSPHORUS (BEAKER) 3.0 mg/dL 2.3-4.7 Specimen moderately (test code = 604) hemolyzed COMPREHENSIVE METABOLIC [id number] 01:43:00 Test Item Value Reference Range Interpretation [...] PATIEN TS. CBC W/PLT COUNT & AUTO [id number] 01:20:00 Test Item Value Reference Range Interpretation [...] CT Abd Renal Protocol w/wo IV contrast [id number] 11:17:00Study: Abd Renal Protocol w/wo IV contrast [...] nonobstructive right nephrolithiasis.4. Moderate-sized left pleural effusion.SL: [id number]--Niuw by: Faisal Calvertictated Date/time: 06/02/18 12:50Electronically Signed by: Faisal Calvert MD 06/02/1813:00FINAL REPORTUnCentral [facility][H] C Urine Transplant 2018-05-30 16:33:01 Test Item Value Reference Range Interpretation Comments ORGANISM (test code Escherichia = 699-9) coliEnterococcus Species FINAL REPORT (test >100,000 CFU/mL code = FINAL Escherichia coli 50,000 - REPORT) 100,000 CFU/mL Enterococcus Species .<10,000 CFU/mL Skin Alvarez [facility][H] [id number] 16:33:01 Test Item Value Reference Range Interpretation [...] Tetracycline (test code = - S Tetracycline) [facility][H] [id number] 16:33:01 Test Item Value Reference Range Interpretation Comments ORGANISM (test code = Enterococcus 699-9) Species Ampicillin (test code - S = Ampicillin) Levofloxacin (test - R code = Levofloxacin) Nitrofurantoin (test - S code = Nitrofurantoin) Tetracycline (test - R code = Tetracycline) Vancomycin (test code SEE NOTES S S= Roxanne ceptible, = Vancomycin) R= Resistant, I= Intermediate, N/A= Not Applicable [facility][H] Culture: Wound/Abscess w/Gram [id number] 16:33:01 Test Item Value Reference Range Interpretation Comments Gram St (test code Moderate WBC's Moderate = Gram St) Gram Negative Rods Moderate Gram Positive Cocci InClusters ORGANISM (test code Escherichia = 699-9) coliEnterococcus SpeciesProteus vulgaris FINAL REPORT (test Many Escherichia coli Many code = FINAL Enterococcus Species REPORT) Moderate Proteus vulgaris [facility][H] [id number] 16:33:01 Test Item Value Reference Range Interpretation [...] S e (test code = Trimethoprim/Sulfamethoxazol e) [facility][H] [id number] 16:33:01 Test Item Value Reference Range Interpretation Comments ORGANISM (test code = Enterococcus Species 699-9) Ampicillin (test code = <=2 S Ampicillin) Vancomycin (test code = 2 S Vancomycin) [facility][H] [id number] 16:33:01 Test Item Value Reference Range Interpretation [...] Trimethoprim/Sulfamet Interm ediate, hoxazole) N/A= Not Applicable [facility]] CALCIUM, [id number] 13:50:01 Test Item Value Reference Range Interpretation Comments Ca Ion Serum (test code = 1994-) 1.28 mmol/L 1.00-1.38 Ca Norm Serum (test code = Ca 1.28 mmol/L 1.00-1.38 Norm Serum) [facility]] BUN/CREATININE RATIO [id number] 13:50:01 Test Item Value Reference Range Interpretation Comments Blood Urea 12 mg/dl 7-22 Nitrogen (test code = 3094-0) Creatinine Lvl 0.70 mg/dl 0.50-1.40 (test code = 2160-0) eGFR (test code = 110 The eGFR i s calculated 87010-5) {ML/MIN/1.7} using the CKD-E PI formula. In [...] be multiplied by t he estimated BMI. [facility][] [id number] 13:50:01 Test Item Value Reference Range Interpretation Comments Calcium Level Total (test code = 9.5 mg/dl 8.5-10.5 19430-7) [facility]] PTH, INTACT (WITHOUT CALCIUM)2018-05-11 13:50:01 Test Item Value Reference Range Interpretation Comments Parathyroid Hormone Intact (test 64.7 pg/ml 18.4-80.1 code = 2731-8) [facility]] CBC (INCLUDES DIFF/PLT)2018-05-11 13:50:01 Test Item Value Reference Range Interpretation Comments WBC (test code = 9.3 {K/CMM} 3.7-10.4 6690-2) RBC (test code = 5.02 {M/CMM} 4.20-5.40 789-8) Hgb; Below Low 11.5 g/dl 12.0-16.0 Threshold (test code = 718-7) Hct; Below Low 35.7 % 36.0-48.0 Threshold (test code = 86424-9) MCV; Below Low 71.2 fL 80.0-98.0 Threshold (test code = 787-2) MCH; Below Low 22.9 pg 27.0-31.0 Threshold (test code = 785-6) MCHC (test code = 32.1 g/dl 32.0-36.0 786-4) RDW; Above High 22.8 % 11.5-14.5 Threshold (test code = 788-0) Platelet (test code See Note 133-450 Platelet s clumped in = 30576-8) EDTA, unable to estimate, kayleen st recollection in a bluetop tube wi th an order for "Blue Top Platelet Count" Mean Platelet 8.9 fL 7.4-10.4 Volume (test code = 36732-5) [facility]] [id number] 13:50:01 Test Item Value Reference Range Interpretation Comments Segmented Neutrophils (test code 63.0 % 45.0-75.0 = 47261-9) Monocytes (test code = 80529-0) 9.5 % 2.0-12.0 Lymphocytes (test code = 26437-0) 23.6 % 20.0-40.0 Eosinophils (test code = 32435-2) 3.4 % 0.0-4.0 Basophils (test code = 706-2) 0.5 % 0.0-1.0 Segs-Bands # (test code = 5.9 {K/CMM} 1.5-8.1 36493-7) Lymphocytes # (test code = 2.2 {K/CMM} 1.0-5.5 74690-7) Monocytes #; Above High Threshold 0.9 {K/CMM} 0.0-0.8 (test code = 77918-7) Eosinophils # (test code = 0.3 {K/CMM} 0.0-0.5 86588-4) Plt Morphology (test code = Plt Clumped Morphology) Anisocyte; Abnormal (test code = 1+ None Seen A 76274-6) Microcyte (test code = Microcyte) 2+ None Seen A [facility]] VITAMIN D, 25-HYDROXY, LC/MS/[id number] 13:50:01 Test Item Value Reference Range Interpretation Comments Vitamin D, 25-OH, 33.5 ng/ml 30.0-100.0 Reference range is based Total (test code on recommen dations in the = Vitamin D, EndocrineSociet y Clinical 25-OH, Total) Practice Guide line (J Clin Endocrinol Aegfq2123;96:19 11-1930) [facility]
[2020-12-28] MEDS ORDERED: ONDANSETRON 4 MG/2 ML VIAL ONE (07:07)
[2020-12-28] MEDS ORDERED: NA CHLORIDE 0.9% 1,000 ML ONE (07:07)
[2020-12-28] MEDS ORDERED: MEPERIDINE HCL 25 MG/ML SYR ONE ×2 (07:07→08:05)
[2020-12-28 07:09] LABS: Absolute Lymphocytes (CBC) 1.2 K/uL (0.7-4.9); Basophils % 0.1 % (0-1.3); Hematocrit 41.3 % (36.0-45.0); Lymphocytes % 11.7 % (15.3-44.8); MPV 8.9 fL (7.6-11.3); RBC Red Blood Cell Count 4.97 M/uL (3.86-4.86)
[2020-12-28 07:16] LABS: ALT/SGPT 17 U/L (12-78); AST/SGOT 10 U/L (15-37); Albumin 3.6 g/dL (3.4-5.0); Alkaline Phosphatase 78 U/L (45-117); BUN Blood Urea Nitrogen 12 mg/dL (7-18); Bicarbonate 25 mmol/L (21-32); Bilirubin Direct 0.2 mg/dL (0-0.2); Bilirubin Total 0.6 mg/dL (0.2-1.0); Glucose Level 110 mg/dL (74-106); Lipase 104 U/L (73-393); Potassium 3.8 mmol/L (3.5-5.1); Protein, Total 8.7 g/dL (6.4-8.2); Sodium Level 143 mmol/L (136-145)
[2020-12-28 07:42] LABS: Urine Blood 3+ (Negative); Urine Glucose Negative (Negative); Urine Protein 3+ (Negative); Urine Specific Gravity 1.025 (1.005-1.030)
[2020-12-28 08:24] LABS: Urine Specific Gravity/Preg 1.025 (1.005-1.030)
[2020-12-28 08:32] LABS: Calcium Oxalate Crystals- Ur PRESENT (NONE SEEN); Urine Bacteria LOADED /HPF (<20)
--- NOTE | 2020-12-28 09:10 | RAD REPORT ---
EXAM DESCRIPTION: CT - Abdomen Pelvis W Contrast - 12/28/2020 8:14 am CLINICAL HISTORY: ABD PAIN COMPARISON: CT imaging February 2020, CT study April 2019, CT imaging February 2017 TECHNIQUE: Biphasic, helical CT imaging of the abdomen and pelvis was performed following 100 ml non -ionic IV contrast. No oral contrast administered. All CT scans are performed using dose optimization technique as appropriate and may include automated exposure control or mA/KV adjustment according to patient size. FINDINGS: Chronic large left pleural effusion is present. Tubing is present in the pleural space pro bably ventriculopleural shunt. No acute lung base finding identified. Stranding in the right base is probably atelectasis rather than infiltrate. No cardiomegaly or pericardial effusion. The liver, spleen, and pancreas show no suspicious findings. Gallbladder and biliary tree are also wi thout suspicious finding. Symmetric renal function is present. No mass, pyelonephritis or acute renal parenchymal process. A 2 x 2 x 1.5 cm calculus is present in the right renal pelvis not causing an acute obstruction. Addition al 8 x 5 mm calcifications seen in the peer mid lateral right kidney. Punctate left pelvis calcificat ions are present. An ileal ureter conduit is seen in the lateral lower abdomen on the right. No obstr uction or acute component identifiable. Chronic pelvic floor prolapse seen. Nonfunctioning bladder is absent or collapsed along the prolapse. IUD is in place. A large lobulated multi fibroid uterus is present. A primary ovarian abnormality is seen. Serial comp arison shows growth of the uterine fibroids. Superior fundal fibroid has increased from 6.1 cm in 200 0 19-6.9 cm on the current study. Large anterior uterine fibroid is 6.3 cm in transverse diameter com pared to 5.4 cm in 2019. Fluid-filled stomach shows no wall thickening or mass. No gastric outlet obstruction. No duodenal dil atation. There is progressive dilation of small bowel from the mid jejunum to the proximal ileum. A t ransition point is not identified. No small bowel mass lesion. Distal small bowel anastomotic site sh ows no acute component. Distal small bowel is decompressed. There is a mild amount of stool in nondil ated colon. Patient has a left lateral lower abdomen double-barrel colostomy. There is a fat filled p eristomal hernia. No acute findings at the colostomy site. No free air, free fluid or inflammatory stranding. No mass or bulky lymphadenopathy. No suspicious bony findings. IMPRESSION: Multiple dilated small bowel loops from mid jejunum to mid ileum. This is more promine nt than seen on comparison studies. No obstructing mass seen for definitive point of transition. Prominent ileus is possible. However, small bowel obstruction should be considered. This could be int ernal hernia or adhesion. No free air, pneumatosis or surgically emergent finding. No acute finding. The ureterostomy and ileal conduit in the right abdomen has no acute component. The patient's double-barrel colostomy in the left abdomen also without acute finding. 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 Pelvic floor prolapse with no acute finding. Enlarged multi fibroid uterus with multiple fibroids showing continued growth on serial imaging back to 2017. Chronic large left pleural effusion related to ventriculopleural shunt.
--- NOTE | 2020-12-28 09:21 | EDPHYS ---
Physician Documentation [facility] Name: Leila Aquino Age: 40 yrs Sex: Female : 1980 Arrival Date: 12/28/2020 Time: 06:04 Bed 18 Private MD: ED Physician Pino Hwang HPI: 12/28 07:46 This 40 yrs old Black Female presents to ER via EMS with complaints of Nausea/Vomiting. rn 07:46 The patient presents to the emergency department with nausea, vomiting, abdominal pain, rn of the abdomen diffusely. Onset: The symptoms/episode began/occurred yesterday. Possible causes: unknown. The symptoms are aggravated by nothing. The symptoms are alleviated by nothing. Severity of symptoms: At their worst the symptoms were moderate in the emergency department the symptoms are unchanged. The patient has experienced similar episodes in the past. The patient has not recently seen a physician. Reports diffuse abd pain, nausea/vomiting since yesterday, no fever. No sick contacts.. 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 Historical: - Allergies: 06:12 Morphine; 8 06:12 Latex, Natural Rubber; 8 06:12 Vancomycin; 8 06:12 chloradate; [facility] - Home Meds: 12/30 04:49 albuterol sulfate Oral [Active]; amlodipine 10 mg tab 1 tab once daily [Active]; lp1 Benadryl 25 mg Oral cap [Active]; betamethasone valerate 0.1 % Topical crea [Active]; corcidin [Active]; docusate sodium 100 mg Oral cap 1 cap 2 times per day [Active]; iron sulfate 325mg PO [Active]; magnesium oxide 400 mg Oral tab 400 mg twice a day [Active]; magnesium oxide 400 mg Oral tab [Active]; metoprolol tartrate 25 mg Oral tab 0.5 tab 2 times per day [Active]; miralax PO [Active]; mometasone nasal 2 sprays once daily [Active]; mylanta [Active]; ondansetron HCl 8 mg Oral tab 1 tab 2 times per day [Active]; ondansetron HCl 4 mg Oral tab [Active]; pantoprazole 40 mg Oral TbEC 1 tab once daily [Active]; promethazine 25 mg Oral tab 1 tab every 6 hours [Active]; sertraline 100 mg Oral tab 1 tab once daily [Active]; sertraline 100 mg Oral tab [Active]; Tylenol [Active]; Xarelto 20 mg Oral tab 1 tab once daily [Active]; xopenex inhaler [Active]; zolpidem 5 mg Oral tab [Active]; Zolpidem Tartrate Oral [Active]; - PMHx: 12/28 06:12 ADD/ADHD; Anemia; DVT; Hypertension; Kidney stones; Osteomyelitis-L foot; osteomyolitis jm8 L foot; Sepsis; spina bifida; Upper extremity DVT- L arm; UTI; Asthma; - Immunization history:: Adult Immunizations up to date. - Social history:: Smoking status: unknown. - Family history:: not pertinent. - Hospitalizations: : No recent hospitalization is reported. ROS: 07:46 Constitutional: Negative for fever, chills, and weight loss, Eyes: Negative for injury, rn pain, redness, and discharge, Cardiovascular: Negative for chest pain, palpitations, and edema, Respiratory: Negative for shortness of breath, cough, wheezing, and pleuritic chest pain, Abdomen/GI: Negative for diarrhea, and constipation, : Negative for injury, discharge, and swelling, MS/Extremity: Negative for injury and deformity, Skin: Negative for injury, rash, and discoloration, Neuro: Negative for headache, numbness, tingling, and seizure. Exam: 07:46 Constitutional: This is a well developed, well nourished patient who is awake, alert, rn and in no acute distress. Head/Face: Normocephalic, atraumatic. Eyes: Periorbital areas with no swelling, redness, or edema. Cardiovascular: Tachycardic, regular Respiratory: No increased work of breathing, no retractions or nasal flaring. Abdomen/GI: soft, + tender all 4 quadrants, no rebound Skin: Warm, dry MS/ Extremity: Pulses equal, no cyanosis. Neuro: Awake and alert, GCS 15 Vital Signs: 06:06 BP 140 / 100; Pulse 110; Resp 16; Temp 98.3; Pulse Ox 98% on R/A; Weight 63.5 kg; jm8 Height 5 ft. 0 in. (152.40 cm); Pain 9/10; 07:00 BP 147 / 99; Pulse 111; Resp 17; Pulse Ox 97% ; Pain 9/10; rb3 08:00 rb3 08:17 BP 144 / 95; Pulse 97; Resp 17; Pulse Ox 97% ; rb3 09:00 BP 142 / 99; Pulse 102; Resp 19; Pulse Ox 95% ; rb3 10:00 BP 144 / 100; Pulse 114; Resp 18; Pulse Ox 96% ; rb3 11:00 BP 133 / 94; Pulse 108; Resp 18; Temp 98.3; Pulse Ox 97% ; rb3 12:00 BP 136 / 99; Pulse 109; Resp 25; Pulse Ox 95% ; rb3 13:00 BP 143 / 100; Pulse 104; Resp 25; Pulse Ox 95% ; rb3 14:00 BP 146 / 98; Pulse 106; Resp 26; Pulse Ox 95% ; rb3 15:00 BP 142 / 94; Pulse 110; Resp 26; Pulse Ox 95% ; rb3 16:00 BP 131 / 94; Pulse 109; Resp 16; Pulse Ox 97% ; rb3 17:00 BP 140 / 101; Pulse 107; Resp 28; Pulse Ox 95% ; rb3 18:00 BP 151 / 98; Pulse 108; Resp 26; Pulse Ox 95% ; rb3 19:52 BP 151 / 102; Pulse 118; Resp 13; Pulse Ox 96% on R/A; rv 05/02 03:35 BP 156 / 95; Pulse 107; Resp 18; Pulse Ox 98% ; rr5 07:00 BP 143 / 109; Pulse 112; Resp 24; Pulse Ox 95% ; rb3 08:00 BP 149 / 105; Pulse 112; Resp 24; Pulse Ox 96% ; rb3 09:00 BP 151 / 99; Pulse 117; Resp 20; Pulse Ox 95% ; rb3 10:00 BP 151 / 99; Pulse 114; Resp 20; Pulse Ox 95% ; rb3 11:00 BP 150 / 107; Pulse 113; Resp 22; Pulse Ox 95% ; rb3 12:00 BP 154 / 102; Pulse 124; Resp 20; Pulse Ox 99% ; rb3 13:00 BP 152 / 102; Pulse 120; Resp 21; Pulse Ox 95% ; rb3 13:49 BP 151 / 100; Pulse 118; Resp 22; Pulse Ox 95% ; rb3 14:30 BP 158 / 107; Pulse 117; Resp 20; Pulse Ox 97% ; rb3 15:30 BP 150 / 85; Pulse 116; Resp 21; Pulse Ox 97% ; rb3 16:30 BP 133 / 99; Pulse 120; Resp 20; Pulse Ox 96% ; rb3 17:30 BP 133 / 90; Pulse 117; Resp 20; Pulse Ox 96% ; rb3 19:30 BP 143 / 88; Pulse 123; Resp 20; Temp 98.7; Pulse Ox 95% on R/A; Pain 7/10; lp1 20:30 BP 135 / 94; Pulse 122; Resp 20; Pulse Ox 95% on R/A; lp1 23:00 BP 169 / 93; Pulse 121; Resp 17; Pulse Ox 97% on R/A; lp1 05 00:07 BP 153 / 97; Pulse 126; Resp 21; Temp 98.1(O); Pulse Ox 94% on R/A; lp1 02:00 BP 132 / 94; Pulse 117; Resp 20; Pulse Ox 95% on R/A; lp1 03:00 BP 158 / 94; Pulse 116; Resp 21; Pulse Ox 95% on R/A; lp1 03:30 Temp 98.1; lp1 04:15 BP 150 / 95; Pulse 125; Resp 21; Pulse Ox 94% on R/A; lp1 06:30 BP 147 / 95; Pulse 118; Resp 20; Pulse Ox 95% on R/A; lp1 10:46 BP 157 / 88; Pulse 122; Resp 20; Temp 98.4; Pulse Ox 96% on R/A; vg1 12:00 BP 148 / 87; Pulse 120; Resp 24; Pulse Ox 97% on R/A; vg1 13:00 BP 151 / 102; Pulse 120; Resp 20; Pulse Ox 96% on R/A; vg1 14:00 BP 158 / 97; Pulse 111; Resp 20; Pulse Ox 95% on R/A; vg1 15:00 BP 148 / 102; Pulse 114; Resp 22; Pulse Ox 97% on R/A; vg1 16:00 BP 151 / 84; Pulse 120; Resp 22; Pulse Ox 97% on R/A; vg1 17:00 BP 155 / 97; Pulse 118; Resp 22; Pulse Ox 99% on R/A; vg1 12/28 06:06 Body Mass Index 27.34 (63.50 kg, 152.40 cm) jm 12/28 08:[address] rb3 MDM: 07:02 Patient medically screened. rn 09:17 Differential diagnosis: Nonspecific abd pain, viral gastroenteritis, gastroenteritis, rn Urinary tract infection. Data reviewed: vital signs, nurses notes, lab test result(s), radiologic studies, CT scan, and as a result, I will admit patient. Counseling: I had a detailed discussion with the patient and/or guardian regarding: the historical points, exam findings, and any diagnostic results supporting the discharge/admit diagnosis, lab results, radiology results, the need for further work-up and treatment in the hospital. Response to treatment: the patient's symptoms have mildly improved after treatment, and as a result, I will admit patient. Admission orders: after a detailed discussion of the patient's condition and case, the admit orders are written by me. ED course: Pt with UTI, no signs of obstruction or ureterolithiasis, stable vitals, will admit to Dr. Bauman for further care. Rocephin given here. . 10:02 ED course: Pt evaluated by Dr. Bauman, who requests transfer for continuity of care. He rn spoke with Dr. Amato for a possible ileus, states Dr. Amato requests that patient be transferred as well. . 11:02 ED course: Pt stable, still waiting for callback from [facility]. Spoke with Dr. nadine Amato, explained ct findings and abdominal exam, agrees that UTI is primary problem and doesn't sound like bowel obstruction. Abx given. . 11:09 ED course: Pt states that has been having normal colostomy output this entire time, no rn gross changes. Abd pain and vomiting have improved. . 13:32 ED course: Spoke with Dr. Delacruz at [facility], he agrees that patient does not rn need to be transferred, states would not even consult urology or surgery, and sounds like patient needs IV abx. I agree with this assessment at this time. He also states believes patient could stay here but is willing to accept patient for transfer if our hospital staff is uncomfortable with the care of this patient. Now waiting on bed assignment. . 15:42 ED course: Still no official acceptance for transfer from [facility]. Patient rn waiting on disposition now 6.5 hours since I spoke with Dr. Bauman initially for admission. . 16:04 ED course: Spoke with george once again, transfer center states plan is to accept rn patient when bed available, not sure when that will be. Notified Dr. Bauman that patient still here without solid plan for transfer. . 18:55 Transition of care: After a detail discussion of the patient's case, care is rn transferred to Jaun Morrow MD. 12/28 06:44 Order name: Basic Metabolic Panel [facility] 12/28 06:44 Order name: CBC with Diff [facility] 12/28 06:44 Order name: Hepatic Function [facility] 12/28 06:44 Order name: Lipase [facility] 12/28 06:44 Order name: Basic Metabolic Panel; Complete Time: 07:19 EDMS 12/28 06:45 Order name: CBC with Automated Diff; Complete Time: 11:50 EDMS 12/28 06:45 Order name: Liver (Hepatic) Function; Complete Time: 07:19 EDMS 12/28 06:45 Order name: Lipase; Complete Time: 07:19 EDMS 12/28 07:42 Order name: Urine Dipstick-Ancillary; Complete Time: 07:45 EDMS 12/28 07:45 Order name: Urine --Ancillary (enter results); Complete Time: 09:12 12/28 07:46 Order name: Urine Culture 12/28 07:46 Order name: Urine Microscopic Only; Complete Time: 09:12 12/28 07:49 Order name: Procalcitonin; Complete Time: 09:12 12/28 07:49 Order name: Blood Culture Adult (2) 12/28 09:32 Order name: COVID-19 : Document "Date of Symptom Onset" if Symptomatic. 12/28 11:09 Order name: CBC Smear Scan; Complete Time: 11:50 EDMS 12/28 11:52 Order name: SARS-COV-2 RT PCR; Complete Time: 15:46 EDMS 12/29 07:35 Order name: Gram Stain--Aerobic Bottle; Complete Time: 09:26 EDMS 12/29 19:14 Order name: CBC with Automated Diff; Complete Time: 09:26 EDMS 12/29 19:14 Order name: Comprehensive Metabolic Panel; Complete Time: 09:26 EDMS 12/29 19:14 Order name: Lactate; Complete Time: 09:26 EDMS 12/29 19:14 Order name: Procalcitonin; Complete Time: 09:26 EDMS 12/29 21:03 Order name: Comprehensive Metabolic Panel EDMS 12/29 21:03 Order name: Comprehensive Metabolic Panel; Complete Time: 18:58 EDMS 12/30 00:14 Order name: CBC with Automated Diff; Complete Time: 18:58 EDMS 12/30 02:18 Order name: Manual Differential; Complete Time: 09:26 EDMS 12/30 12:15 Order name: Manual Differential; Complete Time: 18:58 EDMS 12/28 06:44 Order name: EKG; Complete Time: 06:45 [facility] 12/28 07:19 Order name: CT Abd/Pelvis - IV Contrast Only; Complete Time: 09:12 rn 12/29 19:14 Order name: NPO EDWY 12/29 19:15 Order name: Abdomen 1 View (KUB); Complete Time: 09:26 EDMS 12/30 13:12 Order name: Abdomen ; Complete Time: 18:58 EDMS 12/28 06:44 Order name: IV Saline Lock; Complete Time: 06:44 [facility] 12/28 06:44 Order name: Labs collected and sent; Complete Time: 06:44 [facility] 12/28 06:44 Order name: EKG - Nurse/Tech; Complete Time: 07:13 [facility] 12/28 07:36 Order name: Labs - recollect needed: recollect blue and purple tops; Complete Time: eb 08:16 03 11:22 Order name: Labs - recollect needed: collect blue and lavender tube. pt platelet bd clumper, lab will help with redraw.; Complete Time: 11:34 Administered Medications: 06:54 Drug: Demerol (meperidine) 25 mg Route: IVP; Site: right antecubital; jm8 07:20 Follow up: Response: No adverse reaction; Pain is unchanged, physician notified rb3 06:54 Drug: Zofran (Ondansetron) 4 mg Route: IVP; Site: right antecubital; jm8 07:25 Follow up: Response: No adverse reaction rb3 06:54 Drug: NS 0.9% 1000 ml Route: IV; Rate: 1 bolus; Site: right antecubital; jm8 08:04 Follow up: IV Status: Completed infusion rb3 09:48 Not Given (Dr. Bauman changed order): Rocephin (cefTRIAXone) 1 grams IV at calculated rb3 rate once; Given slow IV push per pharmacy instructions 09:55 Drug: Dilaudid (HYDROmorphone) 1 mg Route: IVP; Site: right antecubital; rb3 10:09 Follow up: Response: No adverse reaction; Pain is decreased rb3 09:55 Drug: Phenergan (promethazine) 12.5 mg Route: IVP; Site: right antecubital; rb3 10:09 Follow up: Response: No adverse reaction rb3 10:12 Drug: Meropenem 1 grams Route: IV; Rate: calculated rate; Site: right antecubital; rb3 10:59 Follow up: Response: No adverse reaction; IV Status: Completed infusion rb3 14:47 Drug: Dilaudid (HYDROmorphone) 1 mg Route: IVP; Site: right antecubital; rb3 15:04 Follow up: Response: No adverse reaction; Pain is decreased rb3 19:51 Drug: Dilaudid (HYDROmorphone) 1 mg Route: IVP; Site: right forearm; rv 12/29 00:31 Follow up: Response: No adverse reaction; Marked relief of symptoms; Pain is decreased; rv RASS: Alert and Calm (0) 12/28 19:51 Drug: Phenergan (promethazine) 12.5 mg Route: IVP; Site: right forearm; rv 12/29 00:31 Follow up: Response: No adverse reaction rv 00:31 Drug: Dilaudid (HYDROmorphone) 1 mg Route: IVP; Site: right forearm; rv 04:49 Follow up: Response: No adverse reaction; Marked relief of symptoms; Pain is decreased; rv RASS: Alert and Calm (0) 04:49 Drug: Dilaudid (HYDROmorphone) 1 mg Route: IVP; Site: right forearm; rv 08:22 Drug: Phenergan (promethazine) 12.5 mg Route: IVP; Site: right antecubital; rb3 08:40 Follow up: Response: No adverse reaction rb3 08:23 Drug: Dilaudid (HYDROmorphone) 1 mg Route: IVP; Site: right antecubital; rb3 08:40 Follow up: Response: No adverse reaction; Pain is decreased rb3 11:40 Drug: Dilaudid (HYDROmorphone) 1 mg Route: IVP; Site: right antecubital; rb3 12:00 Follow up: Response: No adverse reaction; Pain is decreased rb3 11:40 Drug: Phenergan (promethazine) 12.5 mg Route: IVP; Site: right antecubital; rb3 12:00 Follow up: Response: No adverse reaction rb3 19:30 Drug: Meropenem 1 grams Route: IV; Rate: calculated rate; Site: right antecubital; lp1 19:30 Drug: Dilaudid (HYDROmorphone) 1 mg Route: IVP; Site: right antecubital; lp1 20:00 Follow up: Response: Marked relief of symptoms lp1 19:30 Drug: Phenergan (promethazine) 12.5 mg Route: IVP; Site: right antecubital; lp1 20:00 Follow up: Response: Marked relief of symptoms lp1 19:30 Drug: NS 0.9% 1000 ml Route: IV; Rate: 1000 ml; Site: right antecubital; lp1 20:30 Follow up: IV Status: Completed infusion; IV Intake: 1000ml lp1 19:30 Drug: NS 0.9% 1000 ml Route: IV; Rate: 100 ml/hr; Site: right antecubital; lp1 22:45 Drug: Zofran (Ondansetron) 4 mg Route: IVP; Site: right antecubital; lp1 0503 00:00 Follow up: Response: No change in condition lp1 00:00 Drug: Dilaudid (HYDROmorphone) 1 mg Route: IVP; Site: right antecubital; lp1 01:00 Follow up: Response: Marked relief of symptoms lp1 00:00 Drug: Phenergan (promethazine) 12.5 mg Route: IVP; Site: right antecubital; lp1 01:00 Follow up: Response: Marked relief of symptoms lp1 04:00 Drug: Phenergan (promethazine) 12.5 mg Route: IVP; Site: left upper arm; lp1 05:00 Follow up: Response: Marked relief of symptoms lp1 04:00 Drug: Dilaudid (HYDROmorphone) 1 mg Route: IVP; Site: left upper arm; lp1 05:00 Follow up: Response: Marked relief of symptoms lp1 10:48 Follow up: Response: No adverse reaction; Pain is decreased vg1 04:00 Drug: Meropenem 1 grams Route: IV; Rate: per protocol; Site: left upper arm; lp1 04:30 Follow up: IV Status: Completed infusion; IV Intake: 100ml lp1 Disposition: 12/28/20 18:56 Transfer ordered to [facility]. Diagnosis is Urinary tract infection, site not specified. - Reason for transfer: Higher level of care. - Accepting physician is Dr. Delacruz. - Condition is Stable. - Problem is new. - Symptoms have improved. Signatures: Dispatcher [employer] EDWY Vilma Mcintyre Kevin, MD MD kdr Ballard, Brenda RN RN bb Pino Hwang MD MD rn Calderon, Audri RN RN aa5 Leni Tenorio RN RN lp1 Lilliana Holman Ronaldo RN RN Avelina Nye RN RN rb3 Andrew Vance RN RN jm8 Jessica Bazan RN vg1 Corrections: (The following items were deleted from the chart) 12/28 11:07 09:32 CORONAVIRUS ordered. [facility] EDW[facility] 18:55 09:20 Hospitalization Ordered by Leonardo Bauman DO for Inpatient Admission. Preliminary rn diagnosis is Urinary tract infection, site not specified. Bed requested for Telemetry/MedSurg (Inpatient). Status is Inpatient Admission. Condition is Stable. Problem is new. Symptoms have improved. rn 12/30 05:28 12/29 21:03 Procalcitonin ordered. EDWY EDMS 12/30 20:32 00:14 Procalcitonin ordered. EDWY EDWY 21:00 05 18:56 12/28/2020 18:56 Transfer ordered to [facility]. Diagnosis is bb Urinary tract infection, site not specified. Reason for transfer: Higher level of care. Accepting physician is Dr. Delacruz. Condition is Stable. Problem is new. Symptoms have improved. rn
--- NOTE | 2020-12-28 09:21 | ER ---
Nurse's Notes [facility] Name: Leila Aquino Age: 40 yrs Sex: Female : 1980 Arrival Date: 12/28/2020 Time: 06:04 Bed 18 Private MD: Diagnosis: Urinary tract infection, site not specified Presentation: 12/28 06:06 Chief complaint: Patient states: nausea and vomiting sinc 0015 this morning. 3 jm8 episodes. Last episode at 0400. Took 1 PO zofran at 0000. Coronavirus screen: Client denies travel out of the [place] in the last 14 days. At this time, the client does not indicate any symptoms associated with coronavirus-19. Ebola Screen: Patient negative for fever greater than or equal to 101.5 degrees Fahrenheit, and additional compatible Ebola Virus Disease symptoms Patient denies exposure to infectious person. Patient denies travel to an Ebola-affected area in the 21 days before illness onset. 06:06 Method Of Arrival: EMS: [facility] 06:13 Initial Sepsis Screen: Does the patient meet any 2 criteria? HR > 90 bpm. No. Patient's [facility] initial sepsis screen is negative. Does the patient have a suspected source of infection? No. Patient's initial sepsis screen is negative. Risk Assessment: Do you want to hurt yourself or someone else? Patient reports no desire to harm self or others. Onset of symptoms was December 28, 2020 at 00:15. 06:13 Acuity: PAYTON 3 jm8 Triage Assessment: 06:15 General: Appears in no apparent distress. Behavior is calm, cooperative, appropriate [facility] for age. Pain: Complains of pain in abdomen Pain currently is 9 out of 10 on a pain scale. Pain began 6 hours ago Also complains of nausea. EENT: No deficits noted. Neuro: No deficits noted. Level of Consciousness is awake, alert, obeys commands, Oriented to person, place, time. Cardiovascular: No deficits noted. Respiratory: No deficits noted. GI: Reports lower abdominal pain, upper abdominal pain, nausea, vomiting. 06:16 : No deficits noted. Derm: No deficits noted. Musculoskeletal: No deficits noted. 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:14 LMP 12/25/2020 [facility] Historical: - Allergies: 06:12 Morphine; jm8 06:12 Latex, Natural Rubber; 8 06:12 Vancomycin; 8 06:12 chloradate; 8 - Home Meds: 12/30 04:49 albuterol sulfate Oral [Active]; amlodipine 10 mg tab 1 tab once daily [Active]; lp1 Benadryl 25 mg Oral cap [Active]; betamethasone valerate 0.1 % Topical crea [Active]; corcidin [Active]; docusate sodium 100 mg Oral cap 1 cap 2 times per day [Active]; iron sulfate 325mg PO [Active]; magnesium oxide 400 mg Oral tab 400 mg twice a day [Active]; magnesium oxide 400 mg Oral tab [Active]; metoprolol tartrate 25 mg Oral tab 0.5 tab 2 times per day [Active]; miralax PO [Active]; mometasone nasal 2 sprays once daily [Active]; mylanta [Active]; ondansetron HCl 8 mg Oral tab 1 tab 2 times per day [Active]; ondansetron HCl 4 mg Oral tab [Active]; pantoprazole 40 mg Oral TbEC 1 tab once daily [Active]; promethazine 25 mg Oral tab 1 tab every 6 hours [Active]; sertraline 100 mg Oral tab 1 tab once daily [Active]; sertraline 100 mg Oral tab [Active]; Tylenol [Active]; Xarelto 20 mg Oral tab 1 tab once daily [Active]; xopenex inhaler [Active]; zolpidem 5 mg Oral tab [Active]; Zolpidem Tartrate Oral [Active]; - PMHx: 12/28 06:12 ADD/ADHD; Anemia; DVT; Hypertension; Kidney stones; Osteomyelitis-L foot; osteomyolitis jm8 L foot; Sepsis; spina bifida; Upper extremity DVT- L arm; UTI; Asthma; - Immunization history:: Adult Immunizations up to date. - Social history:: Smoking status: unknown. - Family history:: not pertinent. - Hospitalizations: : No recent hospitalization is reported. Screenin:14 Abuse screen: Denies threats or abuse. Denies injuries from another. Nutritional 8 screening: No deficits noted. Tuberculosis screening: No symptoms or risk factors identified. Fall Risk None identified. Assessment: 06:17 Reassessment: see triage assessment. [facility] 07:05 General: Appears in no apparent distress. comfortable, Behavior is calm, cooperative, rb3 Denies fever. Pain: Complains of pain in abdomen Pain currently is 9 out of 10 on a pain scale. Neuro: Level of Consciousness is awake, alert, obeys commands, Oriented to person, place, time, situation. Cardiovascular: Capillary refill < 3 seconds Patient's skin is warm and dry. Respiratory: Airway is patent Respiratory effort is even, unlabored, Respiratory pattern is regular, symmetrical. GI: Reports nausea, vomiting. : Brown in place Urine is cloudy. Musculoskeletal: Spina Bifida. 08:00 Reassessment: Patient appears in no apparent distress at this time. No changes from rb3 previously documented assessment. 08:17 Reassessment: Patient appears in no apparent distress at this time. Patient and/or rb3 family updated on plan of care and expected duration. Pain level reassessed. Patient is alert, oriented x 3, equal unlabored respirations, skin warm/dry/pink. 09:00 Reassessment: Patient appears in no apparent distress at this time. No changes from rb3 previously documented assessment. 10:00 Reassessment: Patient appears in no apparent distress at this time. Patient and/or rb3 family updated on plan of care and expected duration. Pain level reassessed. Patient is alert, oriented x 3, equal unlabored respirations, skin warm/dry/pink. 10:58 Reassessment: Patient appears in no apparent distress at this time. Patient and/or rb3 family updated on plan of care and expected duration. Pain level reassessed. Patient is alert, oriented x 3, equal unlabored respirations, skin warm/dry/pink. 11:05 Reassessment: Spoke to Anais at [facility]. Gave her clinical information about rb3 the pt. history. All questions asked and answered. 12:00 Reassessment: Patient appears in no apparent distress at this time. Patient and/or rb3 family updated on plan of care and expected duration. Pain level reassessed. Patient is alert, oriented x 3, equal unlabored respirations, skin warm/dry/pink. 13:00 Reassessment: Patient appears in no apparent distress at this time. Pt. is resting with rb3 eyes closed, respirations even, unlabored. 14:00 Reassessment: Patient appears in no apparent distress at this time. No changes from rb3 previously documented assessment. 14:39 Reassessment: Patient appears in no apparent distress at this time. Patient and/or rb3 family updated on plan of care and expected duration. Pain level reassessed. Patient is alert, oriented x 3, equal unlabored respirations, skin warm/dry/pink. Pt. requested pain medication. Dr. Hwang notified, received verbal order for Dilaudid 1 mg IVP x once. 100% verbal read back. 15:04 Reassessment: Patient appears in no apparent distress at this time. Patient and/or rb3 family updated on plan of care and expected duration. Pain level reassessed. Patient is alert, oriented x 3, equal unlabored respirations, skin warm/dry/pink. 16:00 Reassessment: Patient appears in no apparent distress at this time. Pt. is watching TV. rb3 17:00 Reassessment: Patient appears in no apparent distress at this time. Pt. resting with rb3 eyes closed, respirations even, unlabored. 17:44 Reassessment: Patient appears in no apparent distress at this time. Patient and/or rb3 family updated on plan of care and expected duration. Pain level reassessed. Patient is alert, oriented x 3, equal unlabored respirations, skin warm/dry/pink. 18:20 Reassessment: Patient appears in no apparent distress at this time. No changes from rb3 previously documented assessment. /02 07:00 General: Appears in no apparent distress. comfortable, Behavior is calm, cooperative. rb3 Pain: Complains of pain in abdomen Pain currently is 8 out of 10 on a pain scale. Neuro: Level of Consciousness is awake, alert, obeys commands, Oriented to person, place, time, situation. Cardiovascular: Patient's skin is warm and dry. Respiratory: Airway is patent Respiratory effort is even, unlabored, Respiratory pattern is regular, symmetrical. 08:00 Reassessment: Pt is vomiting. Asked for nausea and pain medication. Provider notified. rb3 Received verbal orders for Phenergan 12.5 mg IVP x once and Dilaudid 1 mg IVP x once. 100% verbal read back. 09:00 Reassessment: Patient appears in no apparent distress at this time. Patient and/or rb3 family updated on plan of care and expected duration. Pain level reassessed. Patient is alert, oriented x 3, equal unlabored respirations, skin warm/dry/pink. Pt. is watching TV. 09:56 Reassessment: Patient appears in no apparent distress at this time. No changes from rb3 previously documented assessment. 10:43 Reassessment: Patient appears in no apparent distress at this time. Patient and/or rb3 family updated on plan of care and expected duration. Pain level reassessed. Patient is alert, oriented x 3, equal unlabored respirations, skin warm/dry/pink. 11:41 Reassessment: Patient appears in no apparent distress at this time. Patient and/or rb3 family updated on plan of care and expected duration. Pain level reassessed. 12:37 Reassessment: Patient appears in no apparent distress at this time. Pt. is watching TV. rb3 13:30 Reassessment: Patient appears in no apparent distress at this time. Patient and/or rb3 family updated on plan of care and expected duration. Pain level reassessed. Patient is alert, oriented x 3, equal unlabored respirations, skin warm/dry/pink. 14:30 Reassessment: Patient appears in no apparent distress at this time. No changes from rb3 previously documented assessment. 15:35 Reassessment: Patient appears in no apparent distress at this time. Patient and/or rb3 family updated on plan of care and expected duration. Pain level reassessed. Patient is alert, oriented x 3, equal unlabored respirations, skin warm/dry/pink. Pt. was transferred over to a hospital bed. 16:30 Reassessment: Patient appears in no apparent distress at this time. No changes from rb3 previously documented assessment. 17:30 Reassessment: Patient appears in no apparent distress at this time. Patient and/or rb3 family updated on plan of care and expected duration. Pain level reassessed. Patient is alert, oriented x 3, equal unlabored respirations, skin warm/dry/pink. 19:20 Reassessment: Verbal orders from Enrike Miller NP for Dilaudid 1mg IV, Phenergan 12.5mg lp1 IV, NS 1L bolus IV, NS at 100ml/hr IV. 19:20 Neuro: Level of Consciousness is awake, alert, obeys commands, Oriented to person, lp1 place, situation. Cardiovascular: Patient's skin is warm and dry. Rhythm is sinus tachycardia. Respiratory: Respiratory effort is even. GI: Abdomen is round distended, Pt is actively vomiting bile, Colostomy site is clean and dry. is intact. Bowel sounds present X 4 quads. Abdomen is tender to palpation X 4 quads. Reports nausea. : Brown in place. Derm: Skin is intact, Skin is dry, Skin is normal. 22:30 Reassessment: Patient reports nausea at this time; medicated per [facility] orders. lp1 05/03 00:00 Reassessment: Patient reports nausea and pain to abdomen at this time; Medicated per lp1 [employer] orders per Enrike Miller NP;. 02:00 Reassessment: Patient appears in no apparent distress at this time. Patient with eyes lp1 closed, respirations even, unlabored. 04:00 Reassessment: patient reports pain and nausea at this time; Medicated per [employer] lp1 orders per Enrike Miller NP. 08:00 Reassessment: pt reports pain in abdomen and vomiting, medicated per [facility] orders. em 10:45 Reassessment: Patient appears in no apparent distress at this time. Patient and/or vg1 family updated on plan of care and expected duration. Pain level reassessed. Patient is alert, oriented x 3, equal unlabored respirations, skin warm/dry/pink. Pt stated ABD pain x4 quadrants, and lower back pain 8/10. 10:47 GI: Colostomy site is clean and dry. is intact. : Brown in place. vg1 14:16 Reassessment: Patient appears in no apparent distress at this time. Patient and/or vg1 family updated on plan of care and expected duration. Pain level reassessed. Patient is alert, oriented x 3, equal unlabored respirations, skin warm/dry/pink. 17:05 Reassessment: Medicated pt per [facility] orders by Enrike Miller; Pt rated ABD pain 8/10 vg1 and stated nausea. Pt received Dilaudid 1 mg IVP PRN, and Phenergan 12.5 mg IVP PRN. 20:17 Reassessment: Patient appears in no apparent distress at this time. Patient and/or vg1 family updated on plan of care and expected duration. Pain level reassessed. Patient is alert, oriented x 3, equal unlabored respirations, skin warm/dry/pink. Vital Signs: 12/28 06:06 BP 140 / 100; Pulse 110; Resp 16; Temp 98.3; Pulse Ox 98% on R/A; Weight 63.5 kg; jm8 Height 5 ft. 0 in. (152.40 cm); Pain 9/10; 07:00 BP 147 / 99; Pulse 111; Resp 17; Pulse Ox 97% ; Pain 9/10; rb3 08:00 rb3 08:17 BP 144 / 95; Pulse 97; Resp 17; Pulse Ox 97% ; rb3 09:00 BP 142 / 99; Pulse 102; Resp 19; Pulse Ox 95% ; rb3 10:00 BP 144 / 100; Pulse 114; Resp 18; Pulse Ox 96% ; rb3 11:00 BP 133 / 94; Pulse 108; Resp 18; Temp 98.3; Pulse Ox 97% ; rb3 12:00 BP 136 / 99; Pulse 109; Resp 25; Pulse Ox 95% ; rb3 13:00 BP 143 / 100; Pulse 104; Resp 25; Pulse Ox 95% ; rb3 14:00 BP 146 / 98; Pulse 106; Resp 26; Pulse Ox 95% ; rb3 15:00 BP 142 / 94; Pulse 110; Resp 26; Pulse Ox 95% ; rb3 16:00 BP 131 / 94; Pulse 109; Resp 16; Pulse Ox 97% ; rb3 17:00 BP 140 / 101; Pulse 107; Resp 28; Pulse Ox 95% ; rb3 18:00 BP 151 / 98; Pulse 108; Resp 26; Pulse Ox 95% ; rb3 19:52 BP 151 / 102; Pulse 118; Resp 13; Pulse Ox 96% on R/A; rv 12/29 03:35 BP 156 / 95; Pulse 107; Resp 18; Pulse Ox 98% ; rr5 07:00 BP 143 / 109; Pulse 112; Resp 24; Pulse Ox 95% ; rb3 08:00 BP 149 / 105; Pulse 112; Resp 24; Pulse Ox 96% ; rb3 09:00 BP 151 / 99; Pulse 117; Resp 20; Pulse Ox 95% ; rb3 10:00 BP 151 / 99; Pulse 114; Resp 20; Pulse Ox 95% ; rb3 11:00 BP 150 / 107; Pulse 113; Resp 22; Pulse Ox 95% ; rb3 12:00 BP 154 / 102; Pulse 124; Resp 20; Pulse Ox 99% ; rb3 13:00 BP 152 / 102; Pulse 120; Resp 21; Pulse Ox 95% ; rb3 13:49 BP 151 / 100; Pulse 118; Resp 22; Pulse Ox 95% ; rb3 14:30 BP 158 / 107; Pulse 117; Resp 20; Pulse Ox 97% ; rb3 15:30 BP 150 / 85; Pulse 116; Resp 21; Pulse Ox 97% ; rb3 16:30 BP 133 / 99; Pulse 120; Resp 20; Pulse Ox 96% ; rb3 17:30 BP 133 / 90; Pulse 117; Resp 20; Pulse Ox 96% ; rb3 19:30 BP 143 / 88; Pulse 123; Resp 20; Temp 98.7; Pulse Ox 95% on R/A; Pain 7/10; lp1 20:30 BP 135 / 94; Pulse 122; Resp 20; Pulse Ox 95% on R/A; lp1 23:00 BP 169 / 93; Pulse 121; Resp 17; Pulse Ox 97% on R/A; lp1 05/03 00:07 BP 153 / 97; Pulse 126; Resp 21; Temp 98.1(O); Pulse Ox 94% on R/A; lp1 02:00 BP 132 / 94; Pulse 117; Resp 20; Pulse Ox 95% on R/A; lp1 03:00 BP 158 / 94; Pulse 116; Resp 21; Pulse Ox 95% on R/A; lp1 03:30 Temp 98.1; lp1 04:15 BP 150 / 95; Pulse 125; Resp 21; Pulse Ox 94% on R/A; lp1 06:30 BP 147 / 95; Pulse 118; Resp 20; Pulse Ox 95% on R/A; lp1 10:46 BP 157 / 88; Pulse 122; Resp 20; Temp 98.4; Pulse Ox 96% on R/A; vg1 12:00 BP 148 / 87; Pulse 120; Resp 24; Pulse Ox 97% on R/A; vg1 13:00 BP 151 / 102; Pulse 120; Resp 20; Pulse Ox 96% on R/A; vg1 14:00 BP 158 / 97; Pulse 111; Resp 20; Pulse Ox 95% on R/A; vg1 15:00 BP 148 / 102; Pulse 114; Resp 22; Pulse Ox 97% on R/A; vg1 16:00 BP 151 / 84; Pulse 120; Resp 22; Pulse Ox 97% on R/A; vg1 17:00 BP 155 / 97; Pulse 118; Resp 22; Pulse Ox 99% on R/A; vg1 12/28 06:06 Body Mass Index 27.34 (63.50 kg, 152.40 cm) 8 12/28 08:[address] rb3 ED Course: 06:04 Patient arrived in ED. jm8 06:10 Jaun Morrow MD is Attending Physician. 7 06:13 Arm band placed on right wrist. jm8 06:14 Triage completed. jm8 06:17 Patient has correct armband on for positive identification. Bed in low position. Call 8 light in reach. Side rails up X2. 06:17 Patient arrived to ER with Brown catheter in place. jm8 06:39 Inserted saline lock: 20 gauge in right antecubital area, using aseptic technique. jm8 07:02 Attending Physician role handed off by Jaun Morrow MD rn 07:02 Pino Hwang MD is Attending Physician. rn 07:18 Avelina Brown, RN is Primary Nurse. rb3 08:14 CT Abd/Pelvis - IV Contrast Only In Process Unspecified. EDMS 09:20 Leonardo Bauman DO is Hospitalizing Provider. rn 10:01 attempted to initiate a transfer with Andrew from the [facility] eb but he requires patient physician information due to it being non emergent. 10:05 initiated a transfer with Anais Shaikh from the [facility]/ She is eb unable to find the patients doctor in the system but will see what she can find. patient's family care physician Dr. Reyna Flores. Faxed over an updated face sheet as requested at [phone]. 11:50 connected the hospitalist configuration management architect for [facility] with Dr. Hwang for patient eb transfer consultation. 12/29 19:16 Primary Nurse role handed off by Avelina Brown, RAJNI mw2 19:56 Leni Tenorio, RAJNI is Primary Nurse. lp1 19:56 Abdomen 1 View (KUB) In Process Unspecified. EDMS 12/30 04:33 called [facility] spoke with Ele to get a status update of mw2 the bed placement for the patient. She stated "the patient is on our wait list.". 07:09 Primary Nurse role handed off by Leni Tenorio, RAJNI 08:33 spoke with Anais Faulkner at [facility]. pt is still waiting on a bed to become available. 09:40 Haresh Yip, RN is Primary Nurse. em 10:45 Repeat lab(s) drawn. by me, sent to lab. vg1 13:34 Abdomen In Process Unspecified. EDMS 14:21 Primary Nurse role handed off by Haresh Yip, RN vg1 14:21 Jessica Bazan, RN is Primary Nurse. vg1 16:45 NGT: inserted 16 Fr. via left nare. verified return of gastric contents, to vg1 intermittent suction. 18:09 pt accepted in transfer to [facility] by dr alvarez, admin approval given by Melody Schwartz. 18:49 No provider procedures requiring assistance completed. Patient transferred, IV remains vg1 in place. 20:59 IV is intact, with fluids infusing freely, Flushed right antecubital with 5 ml normal bb saline. Administered Medications: 12/28 06:54 Drug: Demerol (meperidine) 25 mg Route: IVP; Site: right antecubital; jm8 07:20 Follow up: Response: No adverse reaction; Pain is unchanged, physician notified rb3 06:54 Drug: Zofran (Ondansetron) 4 mg Route: IVP; Site: right antecubital; jm8 07:25 Follow up: Response: No adverse reaction rb3 06:54 Drug: NS 0.9% 1000 ml Route: IV; Rate: 1 bolus; Site: right antecubital; jm8 08:04 Follow up: IV Status: Completed infusion rb3 09:48 Not Given (Dr. Bauman changed order): Rocephin (cefTRIAXone) 1 grams IV at calculated rb3 rate once; Given slow IV push per pharmacy instructions 09:55 Drug: Dilaudid (HYDROmorphone) 1 mg Route: IVP; Site: right antecubital; rb3 10:09 Follow up: Response: No adverse reaction; Pain is decreased rb3 09:55 Drug: Phenergan (promethazine) 12.5 mg Route: IVP; Site: right antecubital; rb3 10:09 Follow up: Response: No adverse reaction rb3 10:12 Drug: Meropenem 1 grams Route: IV; Rate: calculated rate; Site: right antecubital; rb3 10:59 Follow up: Response: No adverse reaction; IV Status: Completed infusion rb3 14:47 Drug: Dilaudid (HYDROmorphone) 1 mg Route: IVP; Site: right antecubital; rb3 15:04 Follow up: Response: No adverse reaction; Pain is decreased rb3 19:51 Drug: Dilaudid (HYDROmorphone) 1 mg Route: IVP; Site: right forearm; rv 12/29 00:31 Follow up: Response: No adverse reaction; Marked relief of symptoms; Pain is decreased; rv RASS: Alert and Calm (0) 12/28 19:51 Drug: Phenergan (promethazine) 12.5 mg Route: IVP; Site: right forearm; rv 12/29 00:31 Follow up: Response: No adverse reaction rv 00:31 Drug: Dilaudid (HYDROmorphone) 1 mg Route: IVP; Site: right forearm; rv 04:49 Follow up: Response: No adverse reaction; Marked relief of symptoms; Pain is decreased; rv RASS: Alert and Calm (0) 04:49 Drug: Dilaudid (HYDROmorphone) 1 mg Route: IVP; Site: right forearm; rv 08:22 Drug: Phenergan (promethazine) 12.5 mg Route: IVP; Site: right antecubital; rb3 08:40 Follow up: Response: No adverse reaction rb3 08:23 Drug: Dilaudid (HYDROmorphone) 1 mg Route: IVP; Site: right antecubital; rb3 08:40 Follow up: Response: No adverse reaction; Pain is decreased rb3 11:40 Drug: Dilaudid (HYDROmorphone) 1 mg Route: IVP; Site: right antecubital; rb3 12:00 Follow up: Response: No adverse reaction; Pain is decreased rb3 11:40 Drug: Phenergan (promethazine) 12.5 mg Route: IVP; Site: right antecubital; rb3 12:00 Follow up: Response: No adverse reaction rb3 19:30 Drug: Meropenem 1 grams Route: IV; Rate: calculated rate; Site: right antecubital; lp1 19:30 Drug: Dilaudid (HYDROmorphone) 1 mg Route: IVP; Site: right antecubital; lp1 20:00 Follow up: Response: Marked relief of symptoms lp1 19:30 Drug: Phenergan (promethazine) 12.5 mg Route: IVP; Site: right antecubital; lp1 20:00 Follow up: Response: Marked relief of symptoms lp1 19:30 Drug: NS 0.9% 1000 ml Route: IV; Rate: 1000 ml; Site: right antecubital; lp1 20:30 Follow up: IV Status: Completed infusion; IV Intake: 1000ml lp1 19:30 Drug: NS 0.9% 1000 ml Route: IV; Rate: 100 ml/hr; Site: right antecubital; lp1 22:45 Drug: Zofran (Ondansetron) 4 mg Route: IVP; Site: right antecubital; lp1 12/30 00:00 Follow up: Response: No change in condition lp1 00:00 Drug: Dilaudid (HYDROmorphone) 1 mg Route: IVP; Site: right antecubital; lp1 01:00 Follow up: Response: Marked relief of symptoms lp1 00:00 Drug: Phenergan (promethazine) 12.5 mg Route: IVP; Site: right antecubital; lp1 01:00 Follow up: Response: Marked relief of symptoms lp1 04:00 Drug: Phenergan (promethazine) 12.5 mg Route: IVP; Site: left upper arm; lp1 05:00 Follow up: Response: Marked relief of symptoms lp1 04:00 Drug: Dilaudid (HYDROmorphone) 1 mg Route: IVP; Site: left upper arm; lp1 05:00 Follow up: Response: Marked relief of symptoms lp1 10:48 Follow up: Response: No adverse reaction; Pain is decreased vg1 04:00 Drug: Meropenem 1 grams Route: IV; Rate: per protocol; Site: left upper arm; lp1 04:30 Follow up: IV Status: Completed infusion; IV Intake: 100ml lp1 Intake: 12/29 20:30 IV: 1000ml; Total: 1000ml. lp1 12/30 04:30 IV: 100ml; Total: 1100ml. lp1 06:30 PO: 0ml; IV: 2760ml (IV Fluid); Total: 3860ml. lp1 12/29 17:08 1000 ml output from catheter rb3 Output: 12/30 06:30 Urine: 450ml (Brown); Total: 450ml. lp1 12/29 17:08 1000 ml output from catheter rb3 Outcome: 12/28 09:20 Decision to Hospitalize by Provider. rn 18:56 ER care complete, transfer ordered by MD. rn 12/30 18:50 Transferred by ground EMS to [facility]. vg1 Condition: unchanged Instructed on the need for transfer. 21:00 Patient left the ED. bb Addendum: 01/03/2021 08:22 Addendum: Culture Results: Positive urine culture. called and spoke with Siobhan from the b [facility] patient is still there in [address]/ faxed over culture report to [phone]. Signatures: Dispatcher [employer] EDVilma Figueroa Edgar, RN RN Carmen Hall, RN RN bb Pino Hwang MD MD rn Pena, Laura RN RN lp1 Grace Duenas 2 Lilliana Holman Ronaldo, RN RN Mann Benton, RN RN rr5 Jessica Bazan RN RN vg1 Jaun Morrow MD MD 7 Avelina Brown, RN RN rb3 Andrew Vance, RN RN jm8 Corrections: (The following items were deleted from the chart) 12/30 00:07 00:07 Temp 98.1F Oral; lp1 lp1
[2020-12-28] MEDS ORDERED: CEFTRIAXONE/SWI 1gm 0 GM/0 ML SYR ONE (09:59)
[2020-12-28] MEDS ORDERED: PROMETHAZINE INJ 25 MG/ML AMP ONE ×2 (10:12→20:00)
[2020-12-28] MEDS ORDERED: HYDROMORPHONE HCL 1 MG/ML INJ ONE ×3 (10:13→20:01)
[2020-12-28] MEDS ORDERED: Meropenem 1 GM/100 ML BAG ONE (10:24)
[2020-12-28 11:08] LABS: White Blood Cell Scan OK (OK)
[2020-12-28 11:09] LABS: Blood Morphology Comment NOT SEEN (NOT SEEN); Platelet Estimate ADEQ
--- NOTE | 2020-12-28 13:39 | P.CNS ---
Date of Consult: 12/28/20 Reason for Consult: ER Consult for admission Requesting Physician: Pino Hwang Primary Care Provider: Dr. Hoff([place]); POULTRY PACKER-Dr. Aguilar; Other specialist at [facility] [place] Chief Complaint: Nausea, vomiting, abdominal pain History of Present Illness: 40-year-old -Citizen Of The [place] female with multiple medical problems including hypertension, spina bifida with CHIEF ENGINEER shunt, chronic pleural effusion left-sided, h istory of ileostomy/colostomy, history of multiple abdominal surgeries and UTI. Patient presented to the emergency room with increased nausea, vomiting and abdominal pain over the last 3 days. Nausea and vomiting and abdominal pain has gotten worse over the last day with abdominal distention. She reports mild chills and sweats. Denies any fever. No significant chest pain or shortness of breath noted. Patient came to the ER for further evaluation. ER evaluated patient. Slightly tachycardic around 102. Blood pressure 149/99. White count 10, hemoglobin 13. Platelet count 330. Sodium 143, potassium 3.8. BUN of 12, creatinine 0.6 with a GFR greater than 90. Glucose 110. Lipase 104. Procalcitonin 0.18. Urinalysis showed positive bacteria. CT scan revealed FINDINGS: Chronic large left pleural effusion is present. Tubing is present in the pleural space probably ventriculopleural shunt. No acute lung base finding identified. Stranding in the right base is probably atelectasis rather than infiltrate. No cardiomegaly or pericardial effusion. The liver, spleen, and pancreas show no suspicious findings. Gallbladder and biliary tree are also without suspicious finding. Symmetric renal function is present. No mass, pyelonephritis or acute renal parenchymal process. A 2 x 2 x 1.5 cm calculus is present in the right renal pelvis not causing an acute obstruction. Additional 8 x 5 mm calcifications seen in the peer mid lateral right kidney. Punctate left pelvis calcifications are present. An ileal ureter conduit is seen in the lateral lower abdomen on the right. No obstruction or acute component identifiable. Chronic pelvic floor prolapse seen. Nonfunctioning bladder is absent or collapsed along the prolapse. IUD is in place. A large lobulated multi fibroid uterus is present. A primary ovarian abnormality is seen. Serial comparison shows growth of the uterine fibroids. Superior fundal fibroid has increased from 6.1 cm in 1999 19-6.9 cm on the current study. Large anterior uterine fibroid is 6.3 cm in transverse diameter compared to 5.4 cm in 2019. Fluid-filled stomach shows no wall thickening or mass. No gastric outlet obstruction. No duodenal dilatation. There is progressive dilation of small bowel from the mid jejunum to the proximal ileum. A transition point is not identified. No small bowel mass lesion. Distal small bowel anastomotic site sh ows no acute component. Distal small bowel is decompressed. There is a mild amount of stool in nondilated colon. Patient has a left lateral lower abdomen double-barrel colostomy. There is a fat filled peristomal hernia. No acute findings at the colostomy site. No free air, free fluid or inflammatory stranding. No mass or bulky lymphadenopathy. No suspicious bony findings. IMPRESSION: Multiple dilated small bowel loops from mid jejunum to mid ileum. This is more prominent than seen on comparison studies. No obstructing mass seen for definitive point of transition. Prominent ileus is possible. However, small bowel obstruction should be considered. This could be internal hernia or adhesion. No free air, pneumatosis or surgically emergent finding. No acute finding. The ureterostomy and ileal conduit in the right abdomen has no acute component. The patient's double-barrel colostomy in the left abdomen also without acute finding. There is a chronic fat filled peristomal hernia. Pelvic floor prolapse with no acute finding. Enlarged multi fibroid uterus with multiple fibroids showing continued growth on serial imaging back to 2017. Chronic large left pleural effusion related to ventriculopleural shunt. Patient was started on IV meropenem due to her history of resistant UTI. I was called to evaluate patient for possible admission here or at another facility. Allergies morphine Allergy (Intermediate, Verified 06/25/14 20:17) Itching vancomycin Allergy (Mild, Verified 09/30/17 06:35) Itching/Hives/Rash Latex, Natural Rubber Allergy (Verified 03/06/15 22:23) Itching/Hives/Rash Home medications list reviewed: Yes Home Medications: Rivaroxaban [Xarelto] 1 tab PO DAILY #30 tablet 10/08/17 Sertraline [Zoloft*] 100 mg PO DAILY #30 tab 10/08/17 Albuterol Sulfate [Ventolin Hfa] 2 puff IH PRN PRN 10/21/18 Amlodipine Besylate 1 tab PO DAILY 10/21/18 Diphenhydramine HCl [Allergy] 1 tab PO DAILY 10/21/18 Hydrocodone 10/APAP 325 [[place] 10/325*] 1 tab PO Q4HR PRN 10/21/18 Lactose-Reduced Food [Boost] 237 ml PO DAILY 10/21/18 Ondansetron [Zofran (Odt)*] 3 cap.sr PO Q4HR PRN 10/21/18 Polyethylene Glycol 3350 [Miralax] 17 gm PO DAILY PRN 10/21/18 Zolpidem Tartrate 1 tab PO BEDTIME 10/21/18 Penicillin V Potassium 500 mg PO DAILY #14 tablet 10/24/18 - Past Medical/Surgical History Diabetic: No -: Spina bifida -: CHIEF ENGINEER shunt -: Chronic left sided pleural effusion -: Hypertension -: Depression with anxiety -: Nephrolithiasis -: History of multiple abdominal surgeries -: Urostomy -: Colostomy -: Recurrent multidrug-resistant UTI -: History of DVT -: History of vaginal prolapse -: Colostomy -: Urostomy -: Vaginal reconstruction -: Ileostomy -: Skin graft -: IVC filter -: CHIEF ENGINEER shunt replaced x2 Psychosocial/ Personal History: Patient lives at home. She is single. - Family History Sister Medical History: Diabetes Father Medical History: Heart disease, Hypertension, Other (see notes) Notes: HIGH CHOLESTEROL, [place] Mother Medical History: Heart disease, Hypertension, Cancer Notes: CHF, PANCREATIC CANCER - Social History Smoking Status: Unknown if ever smoked Alcohol use: No CD- Drugs: No Caffeine use: Yes Place of Residence: Home Review of Systems General: Chills, Sweats, Weakness, As per HPI Eyes: Unremarkable ENT: Unremarkable Respiratory: Unremarkable Cardiovascular: Unremarkable Gastrointestinal: Nausea, Vomiting, Abdominal Pain, Distention, As per HPI Genitourinary: Unremarkable Musculoskeletal: As per HPI Integumentary: Unremarkable Neurological: As per HPI Lymphatics: Unremarkable Physical Examination General: Alert, In no apparent distress, Oriented x3, Cooperative HEENT: Atraumatic, Other (Dry mucous membranes) Neck: Supple Respiratory: Clear to auscultation bilaterally, Normal air movement Cardiovascular: Other (Mild sinus tachycardia) Gastrointestinal: Hypoactive, Other (Abdominal distention noted. Multiple scars to the abdomen. Tenderness throughout. Urostomy and ileostomy in place.) Musculoskeletal: Other (Patient with history of spina bifida. Muscle wasting to the lower extremities.) Neurological: Other (Muscle wasting to the lower extremities.) Laboratory Data (last 24 hrs) 12/28/20 08:00: WBC 10.60, Hgb 13.3, Hct 41.3, Plt Count 330 12/28/20 06:46: Sodium 143, Potassium 3.8, BUN 12, Creatinine 0.61, Glucose 110 H, Total Bilirubin 0.6, AST 10 L, ALT 17, Alkaline Phosphatase 78, Lipase 104 Conclusions/Impression: Impression: Nausea, vomiting with abdominal pain suspect prominent ileus versus early small bowel obstruction complicated with multiple abdominal surgeries in the past including ureterostomy and colostomy Acute recurrent UTI likely multidrug-resistant bacteria complicated with 2 x 2 x 1.5 cm calculus in the right renal pelvis without obstruction and additional 8 x 5 mm calcification seen in the mid lateral right kidney Chronic left-sided pleural effusion with history of CHIEF ENGINEER shunt Hypertension Spina bifida Large lobulated multifibroid uterus with history of vaginal reconstruction and vaginal prolapse Plan: Nausea, vomiting with abdominal pain suspect prominent ileus versus early small bowel obstruction complicated with multiple abdominal surgeries in the past including ureterostomy and colostomy: Agree with admission. Spoke to Surgery here at length concerning her conditions. If this were to worsen patient would require NG tube and n.p.o. status. If her condition were to decline patient would need emergent surgery. Patient has all her specialists at [facility]. Local surgery recommends that we transfer patient to her team of specialists due to the complexity of her prior surgeries. In the event that her condition were to worsen and patient would require surgery, patient would need to be with her team of specialists. This was addressed in detail with the patient. She understood her condition and possible complications. She agrees with plan for transfer for continuity of care and due to her complex abdominal issues. This was discussed in detail with ER physician who will plan to transfer patient with her multiple specialist. Acute recurrent UTI likely multidrug-resistant bacteria complicated with 2 x 2 x 1.5 cm calculus in the right renal pelvis without obstruction and additional 8 x 5 mm calcification seen in the mid lateral right kidney: Recommend to start IV meropenem. Blood, urine cultures obtained. If multidrug-resistant patient would require PICC line and long-term antibiotic therapy. Chronic left-sided pleural effusion with history of CHIEF ENGINEER shunt: Monitor this closely. Hypertension: Continue home medication Spina bifida: Patient is mainly bedbound. She does use a wheelchair for ambulation. Large lobulated multifibroid uterus with history of vaginal reconstruction and vaginal prolapse: Patient sees propellant assembler for this in detail. Time Spent Managing Pts care (In Minutes): 55
[2020-12-29] MEDS ORDERED: HYDROMORPHONE HCL 1 MG/ML INJ ONE ×6 (00:32→19:46)
[2020-12-29] MEDS ORDERED: PROMETHAZINE INJ 25 MG/ML AMP ONE ×3 (08:32→15:25)
[2020-12-29] MEDS ORDERED: NA CHLORIDE 0.9% 1,000 ML IV ONE (14:00)
[2020-12-29] MEDS ORDERED: ONDANSETRON 4 MG (ODT) TAB PO PRN (19:12)
[2020-12-29] MEDS ORDERED: NA CHLORIDE 0.9% 2,000 ML ONE (19:46)
[2020-12-29] MEDS ORDERED: Meropenem 1 GM/100 ML BAG ONE (19:46)
[2020-12-29] MEDS ORDERED: NA CHLORIDE 0.9% 1,000 ML IV SCH (20:00)
--- NOTE | 2020-12-29 20:03 | RAD REPORT ---
EXAM DESCRIPTION: RAD - Abdomen 1 View (KUB) - 12/29/2020 7:56 pm CLINICAL HISTORY: Abdominal distension Pain COMPARISON: Abdomen 1 View (KUB) dated 10/22/2017; Abdomen Pelvis W Contrast dated 12/28/2020 FINDINGS: Moderate dilated loops of bowel are again seen, essentially unchanged since yesterday CT s tudy. No pneumoperitoneum present. Right-sided renal stones suspected. Shunt tubing is present.
[2020-12-29] MEDS ORDERED: ONDANSETRON 4 MG/2 ML VIAL ONE (23:04)
[2020-12-30] MEDS ORDERED: HYDROMORPHONE HCL 1 MG/ML INJ ONE ×4 (00:17→21:25)
[2020-12-30] MEDS ORDERED: NA CHLORIDE 0.9% 1,000 ML ONE (00:17)
[2020-12-30] MEDS ORDERED: Meropenem 1000 MG/VIAL IV SCH (01:00)
[2020-12-30 01:18] LABS: Absolute Lymphocytes (CBC) 0.5 K/uL (0.7-4.9); Basophils % 0.2 % (0-1.3); Hematocrit 38.9 % (36.0-45.0); Lymphocytes % 9.2 % (15.3-44.8); MPV 7.5 fL (7.6-11.3); RBC Red Blood Cell Count 4.63 M/uL (3.86-4.86)
[2020-12-30 01:43] LABS: ALT/SGPT 12 U/L (12-78); AST/SGOT 4 U/L (15-37); Alkaline Phosphatase 64 U/L (45-117); BUN Blood Urea Nitrogen 14 mg/dL (7-18); Bicarbonate 22 mmol/L (21-32); Bilirubin Total 0.4 mg/dL (0.2-1.0); Glucose Level 111 mg/dL (74-106); Potassium 4.1 mmol/L (3.5-5.1); Protein, Total 8.2 g/dL (6.4-8.2); Sodium Level 145 mmol/L (136-145)
--- NOTE | 2020-12-30 02:01 | P.PN ---
Subjective Date of Service: 12/29/20 Primary Care Provider: Dr. Hoff([place]); CAR STORER-Dr. Aguilar; Other specialist at [facility] Chief Complaint: Nausea, vomiting, abdominal pain Subjective: No new changes Patient still with abdominal pain, small amounts of emesis. Patient made NPO. Mildly tachycardic with heart rate around 115-120. IV fluids increase. Review of Systems General: Weakness, Malaise Gastrointestinal: Nausea, Vomiting, Abdominal Pain Physical Examination - Physical Exam General: Alert, In no apparent distress, Oriented x3 HEENT: Atraumatic, PERRLA Neck: Supple, JVD not distended Respiratory: Clear to auscultation bilaterally, Normal air movement Cardiovascular: Regular rate/rhythm (Sinus tachycardia rate 115-120), Normal S1 S2 Gastrointestinal: Normal bowel sounds, No tenderness Musculoskeletal: No tenderness Integumentary: No rashes Neurological: Normal speech, Normal tone, Normal affect - Studies Laboratory Data (last 24 hrs) 12/30/20 01:06: Sodium 145, Potassium 4.1, BUN 14, Creatinine 0.56, Glucose 111 H, Total Bilirubin 0.4, AST 4 L, ALT 12, Alkaline Phosphatase 64 12/30/20 01:06: WBC 5.40 D, Hgb 12.3, Hct 38.9, Plt Count 483 H D Microbiology Data (last 24 hrs): 12/28/20 09:35 Blood - Blood Blood Culture Gram Stain - Final 12/28/20 09:35 Blood - Blood Anaerobic Blood Culture - Final Assessment And Plan - Plan Impression: Nausea, vomiting with abdominal pain suspect prominent ileus versus early small bowel obstruction complicated with multiple abdominal surgeries in the past including ureterostomy and colostomy Acute recurrent UTI likely multidrug-resistant bacteria complicated with 2 x 2 x 1.5 cm calculus in the right renal pelvis without obstruction and additional 8 x 5 mm calcification seen in the mid lateral right kidney Chronic left-sided pleural effusion with history of BAG PRESS OPERATOR shunt Hypertension Spina bifida Large lobulated multifibroid uterus with history of vaginal reconstruction and vaginal prolapse Plan: Nausea, vomiting with abdominal pain suspect prominent ileus versus early small bowel obstruction complicated with multiple abdominal surgeries in the past in cluding ureterostomy and colostomy: Patient still pending transfer for continuity of care, still having some abdominal pain/vomiting, patient was allowed to have some clear liquids during her stay in the emergency department, patient not strictly NPO, abdominal x-ray demonstrates no significant changes since the CT scan yesterday and bowel gas pattern. Patient now with tachycardia, given IV fluids and bolus. Case discussed with hospitalist attending, may need to admit patient if she is not a bed available in the near future. Receiving facility stated she is on the wait list but no beds currently open. SCDs for DVT prophylaxis. Have ordered daily labs, p.r.n. medications, scheduled antibiotics now. Acute recurrent UTI likely multidrug-resistant bacteria complicated with 2 x 2 x 1.5 cm calculus in the right renal pelvis without obstruction and additional 8 x 5 mm calcification seen in the mid lateral right kidney: Continue IV meropenem, will need to follow up on blood/urine cultures. Chronic left-sided pleural effusion with history of BAG PRESS OPERATOR shunt: Monitor this closely. Hypertension: Continue home medication Spina bifida: Patient is mainly bedbound. She does use a wheelchair for ambulation. Large lobulated multifibroid uterus with history of vaginal reconstruction and vaginal prolapse: Patient sees wax engraver for this in detail. Discharge Plan: Transfer Plan to discharge in: 24 Hours Critical Care: No Time Spent Managing PTS Care (In Minutes): 30
[2020-12-30 02:34] LABS: Blood Morphology Comment NOT SEEN (NOT SEEN); Platelet Estimate ADEQ
[2020-12-30] MEDS ORDERED: Meropenem 1 GM/100 ML BAG ONE ×2 (04:18→12:09)
[2020-12-30] MEDS: PROMETHAZINE INJ 25 MG/ML AMP IV PRN ×2 (08:10→12:18)
[2020-12-30] MEDS: HYDROMORPHONE HCL 1 MG/ML INJ IV PRN ×2 (08:11→12:17)
--- NOTE | 2020-12-30 09:23 | EKG ---
Test Date: 2020-12-28 Test Time: 07:00:57 Senior Care Provider: RAJNI MEASUREMENT RESULTS: Intervals: Rate: 111 RI: 160 QRSD: 82 QT: 344 QTc: 467 [place]: P: 51 RI: 160 QRS: 29 T: 34 INTERPRETIVE STATEMENTS: Sinus tachycardia Otherwise normal ECG Compared to ECG 08/24/2019 20:37:47 Short RI interval no longer present Electronically Signed On 12-30-20 09:17:41 CDT by Trent Sousa
[2020-12-30 11:07] LABS: ALT/SGPT 11 U/L (12-78); AST/SGOT < 3 U/L (15-37); Albumin 2.9 g/dL (3.4-5.0); Alkaline Phosphatase 62 U/L (45-117); BUN Blood Urea Nitrogen 14 mg/dL (7-18); Bicarbonate 19 mmol/L (21-32); Bilirubin Total 0.4 mg/dL (0.2-1.0); Glucose Level 97 mg/dL (74-106); Potassium 3.9 mmol/L (3.5-5.1); Sodium Level 145 mmol/L (136-145)
[2020-12-30 12:07] LABS: Hematocrit 40.3 % (36.0-45.0); RBC Red Blood Cell Count 4.75 M/uL (3.86-4.86)
[2020-12-30] MEDS ORDERED: NA CHLORIDE 0.9% 100 ML ONE (12:09)
[2020-12-30] MEDS ORDERED: PROMETHAZINE INJ 25 MG/ML AMP ONE ×2 (12:11→17:13)
[2020-12-30] MEDS ORDERED: HYDROMORPHONE HCL 2 MG/ML inj ONE ×2 (12:12→17:14)
[2020-12-30 12:13] LABS: MPV 6.5 fL (7.6-11.3)
--- NOTE | 2020-12-30 13:53 | RAD REPORT ---
EXAM DESCRIPTION: CT - Abdomen Pelvis W Contrast - 12/30/2020 1:34 pm CLINICAL HISTORY: SBO COMPARISON: Abdomen Pelvis W Contrast dated 12/28/2020; Abdomen 1 View (KUB) dated 12/29/2020 TECHNIQUE: Biphasic, helical CT imaging of the abdomen and pelvis was performed following 100 ml non -ionic IV contrast. No oral contrast administered. All CT scans are performed using dose optimization technique as appropriate and may include automated exposure control or mA/KV adjustment according to patient size. FINDINGS: Large left pleural effusion related to ventriculopleural shunt again noted. No new lung ba se finding. The liver, spleen, and pancreas show no new findings. Gallbladder and biliary tree are also without n ew finding. No new or CUSTOMER EXPERIENCE PROFESSIONAL process since December 28 imaging. Pelvic floor prolapse and perineum soft tissue findings also stable. Fluid distention of the stomach has increased. Gastric outlet obstruction is not suspected. No gastri c wall thickening or mass. Moderate stool volume fills the right-side colon from cecum to hepatic fle xure. Remainder of the colon is mostly decompressed. No acute finding at the left abdomen colostomy s ite. Dilation of the duodenum has developed and continues into the proximal jejunum. Small bowel dila tion has increased and involves the jejunum. In the mid jejunum there is a short segment of wall thic kening not clearly present previously. This may be a peristalsis artifact. There is dilation of the s mall bowel distal to this area. Transition in occurs in the left lower quadrant. An obstructing mass is not identified. There may be an adhesion near the anterior abdominal wall right of midline. No free air or pneumatosis. No mass or bulky lymphadenopathy. No suspicious bony findings. IMPRESSION: Increasing proximal small bowel dilatation with transition in the right mid abdomen near the anterior abdominal wall. No obstructing mass identified. There may be internal hernia or a adhe donald near this location. More distally the small bowel is decompressed. Increased fluid distention of the stomach without gastric outlet obstruction or mass. Moderate stool volume in the right-side of the colon with left side colon decompressed.
[2020-12-30 15:17] LABS: Anisocytosis 1+; Blood Morphology Comment NOTED (NOT SEEN); Platelet Estimate INCR; Poikilocytosis 2+
[2020-12-30 22:28] VITALS: TEMP 98.4
[2020-12-30 22:36] VITALS: BP 155/97; O2SAT 99
== END 2020-12-30 21:00 | disposition short-term general hospital (02) ==
LOC: ER 06:00
DX: N39.0 Urinary tract infection, site not specified (principal); R10.9 Unspecified abdominal pain; Z20.822 Contact with and (suspected) exposure to COVID-19; I10 Essential (primary) hypertension; Q05.9 Spina bifida, unspecified; F41.8 Other specified anxiety disorders; Z86.718 Personal history of other venous thrombosis and embolism; Z79.01 Long term (current) use of anticoagulants; Z88.3 Allergy status to other anti-infective agents; Z88.5 Allergy status to narcotic agent; Z88.8 Allergy status to other drugs, medicaments and biological substances; Z91.040 Latex allergy status; Z91.048 Other nonmedicinal substance allergy status; Z98.2 Presence of cerebrospinal fluid drainage device; Z83.3 Family history of diabetes mellitus; Z82.49 Family history of ischemic heart disease and other diseases of the circulatory system; Z83.438 Family history of other disorder of lipoprotein metabolism and other lipidemia
CPT/HCPCS: 93005; 87040 ×2; 87088; 85025 ×3; 87086; 80048; 36415 ×2; 87205; 81025; 80076; 83605; 83690; 80053 ×2; 84145 ×2; 74177 ×2; 74018; U0003; Q9967 ×2; J2550 ×8; J1170 ×10; J2175 ×2; J2185 ×3; J7030 ×3; J2405; 81003; 81015; 87077; 87186; 99285; J0696

== ENCOUNTER 2021-06-25 12:11 | Emergency (ER) | payer OTHER ==
[2021-06-25] MEDS ORDERED: ACETAMINOPHEN 325 MG TABLET ONE (12:54)
[2021-06-25] MEDS ORDERED: MORPHINE 4 MG/ML SYR ONE (12:55)
[2021-06-25] MEDS ORDERED: ONDANSETRON 4 MG/2 ML VIAL ONE (12:55)
[2021-06-25] MEDS ORDERED: NA CHLORIDE 0.9% 2,000 ML ONE (12:55)
--- NOTE | 2021-06-25 12:56 | RAD REPORT ---
EXAM DESCRIPTION: RAD - Chest Single View - 06/25/2021 12:50 pm CLINICAL HISTORY: fever Chest pain. COMPARISON: Abdomen 1 View (KUB) dated 12/29/2020; Chest Single View dated 04/04/2020; Chest Single View dated 08/24/2019; Chest Single View dated 12/13/2018 FINDINGS: Portable technique limits examination quality. Chronic left pleural effusion is again seen moderate in size. Mild bilateral pulmonary opacities are probably representing pulmonary edema pulmonary infection/ viral infection. The heart is mildly enlar ged in size.Superior vena cava filter seen.
[2021-06-25 13:04] LABS: Protime INR 1.68
[2021-06-25] MEDS ORDERED: MEPERIDINE HCL 50 MG/ML ONE (13:08)
[2021-06-25 13:26] LABS: Albumin 2.6 g/dL (3.4-5.0); Bilirubin Direct 0.3 mg/dL (0-0.2); Bilirubin Total 0.6 mg/dL (0.2-1.0); Potassium 3.5 mmol/L (3.5-5.1); Protein, Total 9.2 g/dL (6.4-8.2)
[2021-06-25 13:49] LABS: Urine Blood 3+ (Negative); Urine Glucose Negative (Negative); Urine Protein 2+ (Negative); Urine pH 7.5 (5.0-7.0)
[2021-06-25 14:29] LABS: Urine Bacteria LOADED /HPF (<20)
--- NOTE | 2021-06-25 15:01 | RAD REPORT ---
EXAM DESCRIPTION: CTAbdomen Pelvis W Contrast - 06/25/2021 2:42 pm CLINICAL HISTORY: Abdominal pain. nausea/vomiting COMPARISON: Abdomen Pelvis W Contrast dated 12/30/2020; Abdomen Pelvis W Contrast dated 12/28/2020; Abdomen Pelvis W Contrast dated 03/07/2020; Abdomen Pelvis W Contrast dated 05/01/2019 TECHNIQUE: Biphasic CT imaging of the abdomen and pelvis was performed with 100 ml non-ionic IV cont rast. All CT scans are performed using dose optimization technique as appropriate and may include automated exposure control or mA/KV adjustment according to patient size. FINDINGS: Moderate to large left pleural effusion is seen with a catheter in place in the left pleur al space. The liver demonstrates no mass or biliary dilatation. The spleen, pancreas and adrenal glands are nor mal. 8 mm stone is present at the left UPJ resulting in mild left hydronephrosis. Additional punctate calc lety are present inferior aspect left kidney. There is a somewhat heterogenous enhancement pattern of the left renal parenchyma suggesting pyelonephritis. There is a large staghorn type calculus in the right renal pelvis and inferior right renal calices. N o right-sided hydronephrosis. Urinary diversion is again seen. Multi-fibroid uterus is present. No bowel obstruction is present. No free fluid, abscess or free air . No evidence of significant lymphadenopathy. Soft tissue thickening and prolapse of the rectum again noted in the inferior pelvis/perineal region. Spina bifida changes again noted. IMPRESSION: 8 mm stone at the left UPJ resulting in mild left hydronephrosis. Heterogenous enhanceme nt of the parenchyma of left kidney suggests pyelonephritis. No perinephric abscess. Additional abnormal findings are detailed above in the body of the report.
[2021-06-25] MEDS ORDERED: HYDROMORPHONE HCL 1 MG/ML INJ ONE ×2 (15:13→20:45)
[2021-06-25] MEDS ORDERED: CEFTRIAXONE 1000 MG/VIAL ONE (15:14)
--- NOTE | 2021-06-25 16:15 | ER ---
Nurse's Notes [facility] Name: Leila Aquino Age: 40 yrs Sex: Female : 1980 Arrival Date: 06/25/2021 Time: 12:15 Bed 7 Private MD: Diagnosis: Sepsis, unspecified organism;Pyelonephritis acute;Calculus of ureter Presentation: 06/25 12:15 Chief complaint: EMS states: Brought in for N/V/Fever. Hx of Spine Bifida, colostomy ch5 and urostomy.fever 101.5. Coronavirus screen: Client denies travel out of the [place] in the last 14 days. Coronavirus screen: Vaccine status: Patient reports being unvaccinated. Ebola Screen: Patient negative for fever greater than or equal to 101.5 degrees Fahrenheit, and additional compatible Ebola Virus Disease symptoms Patient denies exposure to infectious person. Patient denies travel to an Ebola-affected area in the 21 days before illness onset. No symptoms or risks identified at this time. Initial Sepsis Screen: Does the patient meet any 2 criteria? RR > 20 per min. Temp <36.0*C (96.8*F)) or > 38.3*C (100.9*F). HR > 90 bpm. Yes Does the patient have a suspected source of infection? Yes: Catheter related infection (Brown/dialysis/PICC/central line) Acute abdominal pain Other: Urostomy and Colostomy. Risk Assessment: Do you want to hurt yourself or someone else? Patient reports no desire to harm self or others. 12:15 Method Of Arrival: EMS: [place] [id number] 12:15 Acuity: [place] 2 5 Triage Assessment: 12:15 General: Appears in no apparent distress. Behavior is calm, cooperative. Pain: 5 Complains of pain in Right flank pain is 8/10. - Immunization history:: Adult Immunizations up to date, Client reports having NOT received the Covid vaccine. - Social history:: Smoking status: Patient denies any tobacco usage or history of. - Family history:: not pertinent. - Hospitalizations: : No recent hospitalization is reported. Screenin:20 Abuse screen: Denies threats or abuse. Denies injuries from another. Nutritional ch5 screening: No deficits noted. Tuberculosis screening: No symptoms or risk factors identified. Fall Risk Gait- Impaired (20 pts.). Assessment: 12:20 Reassessment: No changes from previously documented assessment. GI: Reports nausea, ch5 vomiting. 14:30 Reassessment: Pt states body pain 8/10 and is requesting pain medication. Provider vg1 notified. 20:23 Reassessment: EMS here for transport of patient. dc2 20:56 Reassessment: No changes from previously documented assessment. Patient and/or family lh3 updated on plan of care and expected duration. Pain level reassessed. Patient is alert, oriented x 3, equal unlabored respirations, skin warm/dry/pink. Patient is alert/active/playful, equal unlabored respirations, skin warm/dry/pink. Pain: Pain level that patient reports is acceptable is 9 out of 10 on a pain scale. 20:58 Reassessment: spoke with RN at [facility] about patient leaving and updated vitals and covid. 3 Vital Signs: 12:15 BP 131 / 89; Pulse 138; Resp 28; Temp 101.5; Pulse Ox 93% ; Weight 63.5 kg; Height 5 ch5 ft. (152.40 cm); Pain 8/10; 12:20 BP 131 / 89; Pulse 135; Resp 24; Pulse Ox 99% ; Pain 8/10; ch5 14:50 BP 126 / 106; Pulse 120; Resp 24; Temp 100.1(O); Pulse Ox 99% ; ch5 16:04 Temp 101.1; ch5 16:14 Pulse 159; mb4 16:56 BP 129 / 76 RA Supine (auto/lg); Pulse 148; Pulse Ox 96% ; mb4 18:30 BP 124 / 76; Pulse 138; Resp 18; Pulse Ox 100% on R/A; ch5 12:15 Body Mass Index 27.34 (63.50 kg, 152.40 cm) 5 ED Course: 12:15 Patient arrived in ED. ch5 12:15 Arm band placed on. 5 12:17 Pino Hwang MD is Attending Physician. rn 12:18 Triage completed. ch5 12:20 Bed in low position. Call light in reach. Side rails up X2. ch5 12:26 Lester Vaughn, RAJNI is Primary Nurse. ch5 16:09 [facility] transfer center contacted. Spoke to Jenn. mb4 16:59 Spoke to Sergey at transfer center. Informed no further action could be done until covid mb4 swab returns. 17:09 Jaiden spoke to [place]/ continuing with transfer to [facility] ICU. mb4 17:30 [facility] Transfer [facility], spoke to Blair. mb4 18:31 Blood Culture Sent. ch5 20:53 No provider procedures requiring assistance completed. Inserted saline lock: 20 gauge lh3 in left ,using aseptic technique. shoulder. 20:55 Patient transferred, IV remains in place. lh3 Administered Medications: 12:42 CANCELLED (allergyy): morphine 4 mg IVP once; RASS on ADMIN: Combtv4, Very Agttd3, ch5 Agttd2, Rstlss1, AlertClm0, Drwsy-1, Lt Sdtn-2, Mod Sdtn-3, Dp Sdtn-4, UnArsble-5 12:50 Drug: Zofran (Ondansetron) 4 mg Route: IVP; Site: left subclavian; ch5 12:50 Drug: Tylenol 650 mg Route: PO; ch5 12:51 Drug: NS 0.9% (30 ml/kg) 30 ml/kg Route: IV; Rate: bolus; Site: left subclavian; ch5 12:51 Drug: Demerol (meperidine) 50 mg Route: IVP; Site: left subclavian; ch5 14:17 Drug: NS 0.9% (30 ml/kg) 30 ml/kg Route: IV; Rate: bolus; Site: left subclavian; vg1 14:55 Drug: Dilaudid (HYDROmorphone) 1 mg Route: IVP; Site: left subclavian; vg1 20:58 Follow up: Response: No adverse reaction 3 15:00 Drug: Rocephin (cefTRIAXone) 1 grams Route: IV; Rate: calculated rate; Site: left vg1 subclavian; 20:57 Follow up: IV Status: Completed infusion 3 16:11 Drug: Motrin (ibuprofen) 800 mg Route: PO; ch5 20:57 Follow up: Response: No adverse reaction 3 17:09 Drug: Phenergan (promethazine) 12.5 mg Route: IVP; Site: left subclavian; jt3 20:57 Follow up: Response: No adverse reaction 3 20:57 Drug: Dilaudid (HYDROmorphone) 1 mg Route: IVP; Site: Other; 3 20:58 Follow up: Response: No adverse reaction 3 Outcome: 16:15 ER care complete, transfer ordered by . rn 20:53 Transferred by ground EMS to [facility], X-rays sent w/ patient. [facility] 20:53 Transferred Transfer form completed. 20:53 Condition: good 20:53 Instructed on the need for transfer. 20:58 Patient left the ED. 3 Signatures: Pino Hwang MD MD rn Baxter, Mackenzie 4 Jessica Bazan RN RN vg1 Marbella Perry RN RN 3 Lester Vaughn, RN RN ch5 Autumn La, RN RN dc2 Phil Thorpe RN RN jt3 Corrections: (The following items were deleted from the chart) 16:18 16:09 [facility] transfer center contacted mb4 mb4 20:52 17:13 SARS-COV-2 RT PCR+MOL.LAB.BRZ drawn and sent. 5 EDMS 20:54 16:50 BASIC METABOLIC PANEL+C.LAB.BRZ drawn and sent. [facility] EDMS
--- NOTE | 2021-06-25 16:15 | EDPHYS ---
Physician Documentation [facility] Name: Leila Aquino Age: 40 yrs Sex: Female : 1980 Arrival Date: 06/25/2021 Time: 12:15 Bed 7 Private MD: ED Physician Pino Hwang HPI: 06/25 12:39 This 40 yrs old Black Female presents to ER via EMS with complaints of Fever. rn 12:39 The patient reports fever, not measured (subjective). Onset: The symptoms/episode rn began/occurred 1 week(s) ago. Modifying factors: there are no obvious modifying factors. Associated signs and symptoms: Pertinent positives: chills, nausea, vomiting, Pertinent negatives: abdominal pain, altered mental status, diarrhea, hemoptysis, skin rash, shortness of breath. Severity of symptoms: At their worst the symptoms were moderate in the emergency department the symptoms are unchanged. The patient has experienced similar episodes in the past. The patient has not recently seen a physician. Patient reports subjective fever, chills, nausea and vomiting. Began 1 week ago. Patient with a colostomy and urostomy. States colostomy and urostomy working okay. Long history of recurrent urinary infections. No longer has nephrostomy tube. No cough or shortness of breath.. - Immunization history:: Adult Immunizations up to date, Client reports having NOT received the Covid vaccine. - Social history:: Smoking status: Patient denies any tobacco usage or history of. - Family history:: not pertinent. - Hospitalizations: : No recent hospitalization is reported. ROS: 12:39 Constitutional: Positive for fever and chills Eyes: Negative for injury, pain, redness, rn and discharge, ENT: Negative for injury, pain, and discharge, Neck: Negative for injury, pain, and swelling, Cardiovascular: Negative for chest pain, palpitations, and edema, Respiratory: Negative for shortness of breath, cough, wheezing, and pleuritic chest pain, Abdomen/GI: Negative for abdominal pain positive for nausea and vomiting Back: Negative for injury and pain, : Negative for injury, bleeding, discharge, and swelling, MS/Extremity: Negative for injury and deformity, Skin: Negative for injury, rash, and discoloration, Neuro: Negative for numbness, tingling, and seizure. 12:39 All other systems are negative. rn Exam: 12:39 Constitutional: This is a well developed, well nourished patient who is awake, alert, rn and in no acute distress. Smiling. Head/Face: Normocephalic, atraumatic. Eyes: Pupils equal round and reactive to light, extra-ocular motions intact. Lids and lashes normal. Conjunctiva and sclera are non-icteric and not injected. Cornea within normal limits. Periorbital areas with no swelling, redness, or edema. ENT: Dry mucous membranes Cardiovascular: Tachycardic, regular. No pulse deficits. Respiratory: Mild tachypnea. Speaking full sentences, unlabored. Abdomen/GI: Soft, nontender, nondistended Skin: Warm, dry MS/ Extremity: Pulses equal, no cyanosis Neuro: Awake and alert, GCS 15 14:52 ECG was reviewed by the Attending Physician. rn Vital Signs: 12:15 BP 131 / 89; Pulse 138; Resp 28; Temp 101.5; Pulse Ox 93% ; Weight 63.5 kg; Height 5 ch5 ft. (152.40 cm); Pain 8/10; 12:20 BP 131 / 89; Pulse 135; Resp 24; Pulse Ox 99% ; Pain 8/10; ch5 14:50 BP 126 / 106; Pulse 120; Resp 24; Temp 100.1(O); Pulse Ox 99% ; ch5 16:04 Temp 101.1; ch5 16:14 Pulse 159; mb4 16:56 BP 129 / 76 RA Supine (auto/lg); Pulse 148; Pulse Ox 96% ; mb4 18:30 BP 124 / 76; Pulse 138; Resp 18; Pulse Ox 100% on R/A; ch5 12:15 Body Mass Index 27.34 (63.50 kg, 152.40 cm) ch5 MDM: 12:17 Patient medically screened. rn 15:59 ED course: Called Dr. Healy, urology, twice, no answer. Spoke with Dr. Bauman about rn it. Will have to transfer pt given no available urology, septic, with proximal stone and pyelonephritis. Initiating transfer to [facility].. 16:12 Differential diagnosis: viral Infection, bacterial infection, URI, pneumonia UTI. Data rn reviewed: vital signs, nurses notes, lab test result(s), radiologic studies, CT scan, and as a result, I will admit patient. Data interpreted: quality assurance monitor chassis: rate is 125 beats/min, rhythm is sinus tachycardia, with no ectopy, Interpretation: tachycardia, Pulse oximetry: on room air is 99 %. Interpretation: normal. Counseling: I had a detailed discussion with the patient and/or guardian regarding: the historical points, exam findings, and any diagnostic results supporting the discharge/admit diagnosis, lab results, radiology results, the need to transfer to another facility, for higher level of care, [facility] does not immediately have the required specialist. Response to treatment: the patient's symptoms have mildly improved after treatment, and as a result, I will admit patient. 18:21 ED course: [facility] patient in the [facility], was connected with government property inspector in [facility] who did not feel comfortable managing patient with diversion and urostomy. [facility] declined due to capacity and unable to transfer there. Likely [facility] agreed for transfer and will take care of patient in the ICU in [place].. 06/25 12:50 Order name: Glucose, Ancillary Testing; Complete Time: 13:08 EDSC 06/25 13:07 Order name: Protime (+INR); Complete Time: 13:08 EDSC 06/25 13:07 Order name: PTT, Activated Partial Thromb; Complete Time: 13:08 EDSC 06/25 12:24 Order name: Chest Single View XRAY rn 06/25 12:25 Order name: CT Abd/Pelvis - PO and IV Contrast rn 06/25 12:56 Order name: RAD; Complete Time: 13:08 EDSC 06/25 13:13 Order name: Lactate; Complete Time: 13:56 EDSC 06/25 13:31 Order name: Basic Metabolic Panel; Complete Time: 13:56 EDSC 06/25 13:31 Order name: Liver (Hepatic) Function; Complete Time: 13:56 EDMS 06/25 13:31 Order name: Lipase; Complete Time: 13:56 EDMS 06/25 13:49 Order name: Urine Dipstick-Ancillary; Complete Time: 13:56 EDMS 06/25 14:30 Order name: Urine Microscopic Only; Complete Time: 14:39 EDMS 06/25 15:02 Order name: Procalcitonin; Complete Time: 15:15 EDMS 06/25 17:43 Order name: Blood Culture EDSC 06/25 17:43 Order name: Blood Culture EDSC 06/25 17:43 Order name: Urine Culture [facility] 06/25 18:04 Order name: SARS-COV-2 RT PCR; Complete Time: 18:17 EDSC 06/25 12:24 Order name: Accucheck; Complete Time: 12:43 rn 06/25 12:24 Order name: Cardiac monitoring; Complete Time: 12:43 rn 06/25 12:24 Order name: EKG - Nurse/Tech; Complete Time: 14:06 rn 06/25 12:24 Order name: IV Saline Lock - Large Bore; Complete Time: 12:43 rn 06/25 12:24 Order name: Labs collected and sent; Complete Time: 12:43 rn 06/25 12:24 Order name: O2 Per Protocol; Complete Time: 12:43 rn 06/25 12:24 Order name: O2 Sat Monitoring; Complete Time: 12:43 rn 06/25 12:24 Order name: Urine Dipstick-Ancillary (obtain specimen); Complete Time: 14:20 06/25 13:04 Order name: Labs - recollect needed: Blue and Purple top; Complete Time: 16:50 vg 06/25 15:03 Order name: CT; Complete Time: 15:15 EDMS EC:52 Rate is 119 beats/min. Rhythm is regular. QRS [place] is Normal. VT interval is normal. rn QRS interval is normal. QT interval is normal. No Q waves. T waves are Normal. No ST changes noted. Clinical impression: Sinus tachycardia. Interpreted by me. Reviewed by me. Administered Medications: 12:42 CANCELLED (allergyy): morphine 4 mg IVP once; RASS on ADMIN: Combtv4, Very Agttd3, ch5 Agttd2, Rstlss1, AlertClm0, Drwsy-1, Lt Sdtn-2, Mod Sdtn-3, Dp Sdtn-4, UnArsble-5 12:50 Drug: Zofran (Ondansetron) 4 mg Route: IVP; Site: left subclavian; ch5 12:50 Drug: Tylenol 650 mg Route: PO; ch5 12:51 Drug: NS 0.9% (30 ml/kg) 30 ml/kg Route: IV; Rate: bolus; Site: left subclavian; ch5 12:51 Drug: Demerol (meperidine) 50 mg Route: IVP; Site: left subclavian; ch5 14:17 Drug: NS 0.9% (30 ml/kg) 30 ml/kg Route: IV; Rate: bolus; Site: left subclavian; vg1 14:55 Drug: Dilaudid (HYDROmorphone) 1 mg Route: IVP; Site: left subclavian; vg1 20:58 Follow up: Response: No adverse reaction lh3 15:00 Drug: Rocephin (cefTRIAXone) 1 grams Route: IV; Rate: calculated rate; Site: left vg1 subclavian; 20:57 Follow up: IV Status: Completed infusion lh3 16:11 Drug: Motrin (ibuprofen) 800 mg Route: PO; ch5 20:57 Follow up: Response: No adverse reaction lh3 17:09 Drug: Phenergan (promethazine) 12.5 mg Route: IVP; Site: left subclavian; jt3 20:57 Follow up: Response: No adverse reaction lh3 20:57 Drug: Dilaudid (HYDROmorphone) 1 mg Route: IVP; Site: Other; lh3 20:58 Follow up: Response: No adverse reaction lh3 Disposition Summary: 06/25/21 16:15 Transfer Ordered Reason: Higher level of care rn Condition: Fair rn Problem: new rn Symptoms: have improved nursery rn Location: [facility](06/25/21 18:22) rn Accepting Physician: Dr. 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 Total time: 40 rn minutes Signatures: Dispatcher [employer] EDMS Pino Hwang MD MD rn Garcia, Victoria RN RN vg1 Marbella Perry RN RN lh3 Lester Vaughn RN RN ch5 Phil Thorpe RN RN jt3 Corrections: (The following items were deleted from the chart) 12:42 12:25 morphine 4 mg IVP once; RASS on ADMIN: Combtv4, Very Agttd3, Agttd2, Rstlss1, ch5 AlertClm0, Drwsy-1, Lt Sdtn-2, Mod Sdtn-3, Dp Sdtn-4, UnArsble-5 ordered. rn 18:22 16:15 Dr. mccoy rn 18:22 16:15 [facility] rn rn 20:52 16:44 SARS-COV-2 RT PCR+MOL.LAB.BRZ ordered. EDMS EDMS 20:54 16:40 BASIC METABOLIC PANEL+C.LAB.BRZ ordered. EDMS EDMS 20:54 16:40 BLOOD CULTURE*+BA.LAB.BRZ ordered. EDMS EDMS 20:54 16:40 CBC+H.LAB.BRZ ordered. EDMS EDMS 20:54 16:40 HEPATIC FUNCTION+C.LAB.BRZ ordered. EDMS EDMS 20:54 16:40 LACTATE+C.LAB.BRZ ordered. EDMS EDMS 20:54 16:40 LIPASE+C.LAB.BRZ ordered. EDMS EDMS 20:54 16:40 PCT+C.LAB.BRZ ordered. EDMS EDMS 20:54 16:40 PROTIME (+INR)+COAG.LAB.BRZ ordered. EDMS EDMS 20:54 16:40 PTT, ACTIVATED+COAG.LAB.BRZ ordered. EDMS EDMS 20:54 16:40 Urine Culture+BA.LAB.BRZ ordered. EDMS EDMS 20:54 16:40 UA MICROSCOPIC+U.LAB.BRZ ordered. EDMS EDMS 20:58 18:22 Dr. Henriquez rn lh3
[2021-06-25] MEDS ORDERED: IBUPROFEN 400 MG TAB ONE (16:33)
[2021-06-25] MEDS ORDERED: PROMETHAZINE INJ 25 MG/ML AMP ONE (17:22)
[2021-06-25 21:26] VITALS: TEMP 101.1
[2021-06-25 21:29] VITALS: BP 124/76; O2SAT 100
== END 2021-06-25 20:58 | disposition short-term general hospital (02) ==
LOC: ER 12:11
DX: A41.9 Sepsis, unspecified organism (principal); N10 Acute pyelonephritis; N20.1 Calculus of ureter; Z20.822 Contact with and (suspected) exposure to COVID-19
CPT/HCPCS: 93005; 87040 ×2; 87088; 87086; 80048; 36415; 87205 ×3; 85610; 82947; 80076; 83605; 85730; 87077 ×5; 87186 ×5; 83690; 84145; 74177; 71045; 99285; U0003; Q9967; J2550; J2175; J1170 ×2; J7030; J2405; 81003; 81015

== ENCOUNTER 2021-11-12 19:42 | Emergency (ER) | payer OTHER ==
--- OUTSIDE RECORDS SUMMARY | 2021-11-12 19:48 | XMS REPORT | Continuity of Care Document ---
:1980 Author Organization [facility] t Address [address] [place] [address] Care Team Providers Name Role Phone Yelitza MASON Primary Care Physician Valentín Erazo MD Attending Clinician VALENTÍN ERAZO Attending Clinician Unavailable Yelitza MASON Attending Clinician MAN Attending Clinician Unavailable HOLLY Attending Clinician Unavailable DEVENDRA Attending Clinician Unavailable DEMOND Attending Clinician Unavailable DICK Attending Clinician Unavailable YELITZA Attending Clinician Unavailable HERMILO Attending Clinician Unavailable LARRY Attending Clinician Unavailable JACKLYN Attending Clinician Unavailable LAURA JUAREZ Attending Clinician Unavailable BLANQUITA BELL Attending Clinician Unavailable ISIAH Attending Clinician Unavailable CHRISTOPHE Attending Clinician Unavailable HERMILO Attending Clinician Unavailable MED PROVIDER Attending Clinician Unavailable MELY Attending Clinician Unavailable WAQAR LOMBARDI Attending Clinician Unavailable MABEL VERMA Attending Clinician Unavailable DEVANTE Attending Clinician Unavailable TERRY Attending Clinician Unavailable VALENTÍN ERAZO Admitting Clinician Unavailable MAN Admitting Clinician Unavailable LORI Admitting Clinician Unavailable WAQAR LOMBARDI Admitting Clinician Unavailable MABEL VERMA Admitting Clinician Unavailable Payers Payer Name Policy Type Policy Number Effective Date Expiration Date Aron dodd MEDICARE A B [id number] 2004 00:00:00 MEDICAID [facility] [id number] 2011 00:00:00 Problems Condition Condition Condition Status Onset Resolution Last Treating Co mments Source Name Details Category Date Date Treatment Clinician Date Other Other Disease Active 2020-08 Univers constipati constipati 0-30 it y of on on 00:00: [place] [facility] Staghorn Staghorn Disease Active 2020-08 Unive rs renal renal 0-29 ity of calculus calculus 00:00: [place] [facility] Thrombocyt Thrombocyt Disease Active 2020-08 U nivers openia openia 0-28 ity of 00:00: [place] [facility] Pleural Pleural Disease Active 2020-08 Univers effusion effusion 0-28 ity of on left on left 00:00: [place] [facility] Microcytic Microcytic Disease Active 2020-08 U nivers anemia anemia 0-28 ity of 00:00: [place] [facility] Hypokalemi Hypokalemi Disease Active 2020-08 U nivers a a 0-28 ity of 00:00: [place] [facility] Other Other Disease Active 2020-08 Univers insomnia insomnia 0-28 ity of 00:00: [place] [facility] Obesity Obesity Disease Active 2020-08 Univers (BMI (BMI 0-27 ity of 30-39.9) 30-39.9) 00:00: [place] [facility] Depression Depression Disease Active 2020-08 U nivers 0-01 ity of 00:00: [place] [facility] Ileostomy Ileostomy Disease Active Uni vers present present 9- ity of 00:00: [place] [facility] Colostomy Colostomy Disease Active Uni vers status status 9- ity of 00:00: [place] [facility] Chronic Chronic Disease Active Univers anticoagul anticoagul 9- it y of ation ation 00:00: [place] [facility] Functional Functional Disease Active U nivers quadripleg quadripleg 9-21 it y of ia ia 00:00: [place] [facility] Paraplegia Paraplegia Disease Active U T , , 9- Health unspecifie unspecifie 00:00: d d 00 Essential Essential Disease Active 0 [facility] (primary) (primary) 1-14 Heal th hypertensi hypertensi 00:00: on on 00 History of History of Disease Active 2017-[address] MDR MDR 0-27 [facility] Enterobact Enterobact 00:00: Me dical er cloacae er cloacae 00 Ce nter infection infection Right Right Disease Active 2017-08 Univers ureteral ureteral 0-13 ity of stone stone 00:00: [place] 00 Medical Branch Multiple Multiple Disease Active 2017-08 Unive rs renal renal 0-13 ity of calculi calculi 00:00: [place] 00 Medical Branch Urinary Urinary Disease Active 2017-[address] [facility] [address] tract tract 0-13 [facility] - obstructio obstructio 00:00: Me dical n due to n due to 00 Center kidney kidney stone stone 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 thoracolum [place] bar region bar region 00 Me dical with with Branch hydrocepha hydrocepha suyapa suyapa Hydronephr Hydronephr Disease Active 2017-08 U nivers osis with osis with 0-12 ity of urinary urinary 00:00: [place] obstructio obstructio 00 Me dical n due to n due to Branch renal renal calculus calculus Acute Acute Disease Active 2017-08 Univers cystitis cystitis 0-12 ity of without without 00:00: [place] hematuria hematuria 00 Medi [place] Branch History of History of Problem Resolve Univers anemia anemia d ity of [place] Physici ans History of History of Problem Resolve Univers Anxiety Anxiety d ity of and and [place] depression depression Ph ysici ans History of [...] Unive rs ity of [place] [facility] Hospital Problem Active Unive rs discharge discharge ity of follow-up follow-up [place] Physici ans History of History of [...] incontinen incontinen it y of ce ce [place] [facility] Ventral Ventral Problem Active Univers hernia hernia ity of [place] [facility] Allergies, Adverse Reactions, Alerts Allergy Allergy Status Severity Reaction(s) Onset Inactive Treating Comm ents Source Name Type Date Date Clinician Latex Propensi Active 2020-0 [facility] ty to 03-26 Health adverse 00:00: reaction 00 s Morphine Propensi Active Hallucinatio 0 UT ty to ns 03-26 Health adverse 00:00: reaction 00 s Vancomyc Propensi Active Itching 0 UT in ty to 03-26 Health adverse 00:00: reaction 00 s Morphine Propensi Active Hallucinatio 2017-08 Halluci na Univers ty to ns 0-12 tions ity of adverse 00:00: [place] reaction 00 Medical s Branch Vancomyc Propensi Active Itching 2017-08 Unive rs in ty to 0-12 ity of Analogue adverse 00:00: [place] s reaction Medical s Branch LATEX DRUG Active Rash 2017-08 Univers INGREDI 0-12 ity of 00:00: [place] 00 Medical Branch MORPHINE DRUG Active Hallucinates 2017-08 Un leana INGREDI 0-12 ity of 00:00: [place] 00 Medical Branch VANCOMYC Drug Active Hives 2017-08 Univers IN Class 0-12 ity of ANALOGUE 00:00: [place] S 00 Medical Branch Latex Propensi Active Rash 2017-08 Univers ty to 0-12 ity of adverse 00:00: [place] reaction 00 Medical s Branch LATEX Allergy Active 2017-[address] [facility] [address] 0-12 [facility] - 00:[facility]: Medical 00 Center MORPHINE Allergy Active Other 2017-[address] [facility] 0-12 [facility] - 00:00: Medical 00 [place] VANCOMYC Allergy Active Itching 2017-[address] [facility] IN 0-12 [facility] - ANALOGUE 00:00: Medical S 00 [place] Morphine Allergy Active Univers Derivati to drug ity of ves (finding [place] ) Physici ans Latex Allergy Active Univers Gloves to drug ity of (finding [place] ) Physici ans vancomyc Allergy Active Univers in to drug ity of ([facility] ) Physici ans Family History Family Member Diagnosis Comments Start Date Stop Date Source Mother Family history of Univers ity of [place] Urinary incontinence Phys icians Mother Family history of Univers ity of [place] diabetes mellitus Physici ans Mother Family history of Univers ity of [place] Fecal incontinence Physic ians Sister Family history of Univers ity of [place] diabetes mellitus Physici ans Brother Family history of Univers ity of [place] diabetes mellitus Physici ans Social History Social Habit Start Date Stop Date Quantity Comments Source Exposure to Not sure [facility] SARS-CoV-2 [place] [facility] (event) Branch Alcohol intake 2021-08-12 2021-08-12 [facility] 00:00:00 00:00:00 non-drinker (finding) Tobacco use and 2021-06-25 2021-06-25 Never used Universit y of exposure 00:00:00 00:00:00 [facility] Education 2021-06-25 2021-06-25 University 00:00:00 00:00:00 [facility] Sex Ass[birth year] At [birth year] Universit y of 00:00:00 00:00:00 [facility] Smoking Status Start Date Stop Date Source Never smoker [facility] Medications Ordered Filled Start Stop Current Ordering Indication Dosage Frequency Signature Comments Components Source Medication Medication Date Date Medication? Clinician (SIG) Name Name HYDROcodone 2021- No Oral, PRN, Univers -acetaminop 10-29 Starting ity of hen (NORCO 17:23: 10:11 on Wed [place] 5) 5-325 mg 23 :22 10/29/21 at Med ical tablet 1123, Branch Until Marylou 10/30/21 at 0411, Routine lidocaine 2021- No PRN, Univers 1% (PF) 10-29 Starting ity of (XYLOCAINE) 16:53: 10:11 on Wed [place] as injection 53 :22 10/29/21 at Medic al 1053, Branch Until Marylou 10/30/21 at 0411, Routine iopamidol 2021- No [id number] 50mL 50 mL, U nivers (ISOVUE 10-29 Intravenou ity o f 300-500 mL) 16:47: 16:47 s, ONCE, 1 [place] injection 00 :00 dose, On Medica l 50 mL 10/29/21 Branch at 1100, Routine FENTanyl PF 2021- No Slow IV Un leana (SUBLIMAZE 10-29 Push, PRN, it y of (PF)) 16:29: 10:11 Starting [place] injection 12 :22 on Wed Medical 10/29/21 at Branch 1029, Until Marylou 10/30/21 at 0411, Routine Xarelto 20 Yes [id number] TAKE 1 UT MG tablet 1-17 TABLET(20 Healt h 00:00: MG) BY 00 MOUTH 1 TIME EACH DAY WITH DINNER AND WITH FOOD ondansetron 2020-08 Yes [id number] TAKE 1 UT (Zofran) 4 2-08 TABLET BY Heal th MG tablet 00:00: MOUTH 00 EVERY 12 HOURS zolpidem 2020-08- No [id number] 10mg QD Take 1 UT (Ambien) 10 1-17 03-18 tablet (10 H ealth MG tablet 00:00: 04:59 mg total) 00 :00 by mouth at night if needed for sleep. amLODIPine 2020-08 Yes [id number] TAKE 1 U T (Norvasc) 5 1-01 TABLET BY Hea lth MG tablet 00:00: MOUTH 00 DAILY Diphenhydra 2020-08 Yes 25mg Take 25 mg Univers mine HCl 25 0-30 by mouth ity of mg TbDL 23:11: daily. [place] [address] Medical Branch Zolpidem 5 2020-[address] 5 mg U nivers mg Subl 0-30 under the ity of 23:11: tongue at [place] [id number] bedtime. Medical Branch rivaroxaban 2020-08 Yes 20mg Take 20 mg Univers (XARELTO) 0-30 by mouth ity of 20 mg 23:11: daily. [place] tablet Medical Branch pumpkin 2020-08 Yes 300mg Take 300 Unive rs seed 0-30 mg by ity of extract-soy 23:11: [place] germ (AZO 17 needed for Medi lacey BLADDER Pain Branch CONTROL) (scale 300 mg Cap 1-3). alum-mag 2020-08 Yes 10mL Take 10 mL Uni vers hydroxide-s 0-30 by mouth. ity of imeth 23:11: [place] [facility] mg/5 mL Branch suspension HYDROcodone 2020-08 Yes 1{tbl} Take 1 Un leana -acetaminop 0-30 tablet by ity of hen 10-325 23:11: mouth. [place] mg tablet Medical Branch aspirin 325 2020-08 Yes 325mg Take 325 U nivers mg tablet 0-30 mg by ity of 23:11: mouth. [place] [address] Medical Branch albuterol 2020-08 Yes 1{puff} Inhale 1 U nivers 90 0-30 Puff. ity of mcg/actuati 23:11: [place] on inhaler Medical Branch Chlorphenir 2020-08 Yes Take by Un leana amine-Aceta 0-30 mouth. ity of minophen 23:11: [place] 2-325 mg Medical Tab Branch lactose-red 2020-08 Yes 1{bottl Take 1 U nivers uced food 0-30 e} Bottle by ity o f (BOOST 23:11: mouth. [place] ORAL) Medical Branch acetaminoph 2020-08 Yes 650mg Take 650 U nivers en 325 mg 0-30 mg by ity of tablet 23:11: mouth. [place] [address] Medical Branch sulfamethox 2020-08 Yes [id number] 1{tbl} Take 1 Univers azole-trime 0-30 tablet by ity of thoprim 00:00: mouth 2 [place] (BACTRIM 00 (two) Medical DS) 800-160 times Branch mg per daily. tablet ondansetron 2020-08 Yes [id number] 4mg Take 1 Univers (ZOFRAN) 4 0-30 tablet by ity of mg tablet 00:00: mouth [place] 00 every 8 Medical (eight) Branch hours as needed for Nausea and Vomiting (N/V). Sennosides 2020-08 Yes [id number] 8.6mg Take 8.6 Univers (SENNA) 8.6 0-30 mg by ity of mg Cap 00:00: mouth 2 [place] 00 (two) Medical times Branch daily. docusate 2020-08 Yes [id number] 100mg Take 1 Un leana 100 mg 0-30 capsule by ity of capsule 00:00: mouth 2 [place] 00 (two) Medical times Branch daily. zolpidem 2020-08 Yes [id number] Take 1 UT (Ambien) 5 0-06 pill Health MG tablet 00:00: nightly as 00 needed for sleep SERTraline 2020-08 Yes 100mg Take 100 Un leana 100 mg 0-01 mg by ity of tablet 00:00: mouth [place] 00 every Medical morning. Branch sertraline 2020-08 Yes [id number] TAKE 1 U T (Zoloft) 0-01 TABLET BY Health 100 MG 00:00: MOUTH tablet 00 DAILY aspirin 325 Yes 325mg QD Take 325 U T MG tablet 7-28 mg by Health 09:22: mouth 1 43 (one) time each day. naproxen Yes 250mg Take 250 UT (Naprosyn) 7-28 mg by Health 250 MG 09:22: mouth 2 tablet 43 (two) times a day with meals. Chlorphenir Yes Take by UT amine-Aceta 7-28 mouth. Health minophen 09:22: (CORICIDIN) 43 2-325 MG tablet Nutritional Yes 1{bottl QD Take 1 U T Supplements 7-28 e} Bottle by [facility] (BOOST HIGH 09:22: mouth 1 PROTEIN PO) 43 (one) time each day. diphenhydrA Yes 25mg Take 25 mg UT MINE 7-28 by mouth Health (BENADryl) 09:22: every 25 MG 43 night. tablet Zolpidem Zolpidem 2021-0 Yes DORA take 1/2 a Univers Tartrate 10 Tartrate 10 4-02 VILLALOBOS tablet ity of MG Oral MG Oral 00:00: M.D. nightly as [place] Tablet Tablet 00 needed for Physi ci insomnia ans Sertraline Sertraline Yes BANDAR TAKE 1 Univers HCl - 100 HCl - 100 3-08 HERMILO TABLET BY ity of MG Oral MG Oral 00:00: M.D. MOUTH [place] Tablet Tablet 00 DAILY Physici ans Ibuprofen Ibuprofen Yes DEONDRE RAMSAY Q8H TAKE 1 Univers 400 MG Oral 400 MG Oral 2-05 M.D. TABLET ity of Tablet Tablet 00:00: EVERY 8 [place] 00 HOURS Physici NEEDED. ans Pyridium Pyridium Yes KEVIN 1 Q0.3333D TAKE 1 Univers 200 MG Oral 200 MG Oral 1-19 ERICSSON TABLET 3 ity of Tablet Tablet 00:00: M.D. TIMES [place] 00 DAILY Physici AFTER ans MEALS NEEDED Ondansetron Ondansetron 2019-08 Yes DORA 1 tablet Univers HCl - 4 MG HCl - 4 MG 1-18 VILLALOBOS by mouth ity of Oral Tablet Oral Tablet 00:00: M.D. every 6 [place] 00 hours as Physici needed for ans nausea. MiraLax 17 MiraLax 17 2020-0 Yes U nivers GM Oral GM Oral [...] Delayed Delayed 00 Physici Release Release ans polyethylen 2019-0 Yes 17g Q.5D 17 g 2 UT e glycol 8-26 (two) Health (MiraLax) 00:00: times a 17 g packet day. Acetaminoph 2020-0 Yes 1000mg Q4H 1,000 mg UT en Extra 8-12 every 4 Health Strength 00:00: (four) 500 MG 00 hours. tablet DOK 100 MG 2019-0 Yes 100mg Q.5D 100 mg 2 UT capsule 8-12 (two) Health 00:00: times a 00 day. Mirena 20 Mirena 20 Yes DORA USE Univers MCG/24HR MCG/24HR 1-14 YELITZA DIRECTED. ity of Intrauterin Intrauterin 00:00: M.D. [place] e e 00 Physici Intrauterin Intrauterin a ns e Device e Device levonorgest Yes USE UT rel 1-14 DIRECTED. Health (Mirena, 52 00:00: MG,) 20 00 MCG/24HR IUD Ondansetron Ondansetron Yes DORA 1 Q12H TAKE 1 Univers HCl - 4 MG HCl - 4 MG 5-08 VILLALOBOS TABLET ity of Oral Tablet Oral Tablet 00:00: M.D. Every [place] 00 twelve Physici hours ans amLODIPine amLODIPine Yes DORA TAKE 1 Univers Besylate 5 Besylate 5 4-26 VILLALOBOS TABLET BY ity of MG Oral MG [...] daily with Me dical tablet 34 dinner. [place] albuterol 2017-08 Yes 1{puff} Inhale 1 C [...] MG 17:00: mouth Medical tablet 34 nightly. [place] zolpidem 2017-08 Yes 5mg Take 5 mg [...] I St -acetaminop 0-31 tablet by Cristhian carrasco (NORCO 17:00: mouth Medica l 10-325) 34 every 4 Center 10-325 mg (four) per tablet hours as needed for Pain. amLODIPine 2017-08 Yes 5mg QD Take [address] (NORVASC) 5 0-31 by mouth Luke s - MG tablet 17:00: daily. Medica l 34 Center rivaroxaban 2017-08 Yes Take by [facility] (XARELTO) 0-31 mouth [facility] - 20 mg Tab 17:00: daily with Me dical tablet 34 dinner. [place] albuterol 2017-08 Yes 1{puff} Inhale 1 C [...] MG 17:00: mouth Medical tablet 34 nightly. Center zolpidem 2017-08 Yes 5mg Take 5 mg [...] I St -acetaminop 0-31 tablet by Cristhian carrasco (NORCO 17:00: mouth Medica l 10-325) 34 every 4 Center 10-325 mg (four) per tablet hours as needed for Pain. amLODIPine 2017-08 Yes 5mg QD Take 5 [...] MG 17:00: mouth Medical tablet 34 nightly. Center zolpidem 2017-08 Yes 5mg Take 5 mg [...] I St -acetaminop 0-31 tablet by Cristhian carrasco (NORCO 17:00: mouth Medica l 10-325) 34 every 4 Center 10-325 mg (four) per tablet hours as needed for Pain. tamsulosin 2017-08 Yes .4mg QD Take 1 [facility] (FLOMAX) 0-31 capsule [facility] - 0.4 mg Cap 00:00: (0.4 mg Medi lacey 24 hr 00 total) by Center capsule mouth daily. tamsulosin 2017-08 Yes .4mg QD Take 1 [facility] (FLOMAX) 0-31 capsule [facility] - 0.4 mg Cap 00:00: (0.4 mg Medi lacey 24 hr 00 total) by Center capsule mouth daily. tamsulosin 2017-08 Yes .4mg QD Take 1 [...] (three) times daily as needed for Nausea. ondansetron 2017-08 Yes 4mg Take [address] (ZOFRAN) 4 0-15 tablet (4 Luke s - MG tablet 00:00: mg total) Med ical 00 by mouth 3 Center (three) times daily as needed for Nausea. ondansetron 2017-08 Yes 4mg Take [address] (ZOFRAN) 4 0-15 tablet (4 Luke s - MG tablet 00:00: mg total) Med ical 00 by mouth 3 Center (three) times daily as needed for Nausea. levalbutero 2012-08 Yes EVERY [address] [facility] (XOPENEX 1-29 HOURS [facility] - HFA) 45 00:00: NEEDED Medical mcg/actuati 00 Center on inhaler levalbutero 2012-08 Yes EVERY [address] [facility] [facility] (XOPENEX 1-29 HOURS [facility] - HFA) 45 00:00: NEEDED Medical mcg/actuati 00 Center on inhaler levalbutero 2012-08 Yes EVERY [address] [facility] [facility] (XOPENEX 1-29 HOURS [facility] - HFA) 45 00:00: NEEDED Medical mcg/actuati 00 Center on inhaler Tylenol Tylenol Yes Univers Extra Extra ity of Strength Strength [place] TABS TABS Physici ans Immunizations Ordered Immunization Filled Date Status Comments Sour ce Name Immunization Name Influenza, 2016-08-30 Completed [facility] injectable, 00:00:00 quadrivalent, preservative free Tdap 2016-08-30 Completed [facility] 00:00:00 Influenza Virus 2016-08-30 Completed [facility] y of Vaccine Quad IM 3+ 00:00:00 [facility] Branch TDAP 2016-08-30 Completed [facility] 00:00:00 [facility] Pneumococcal 2012-11-10 Completed [facility] Polysaccharide PPV23 00:00:00 Pneumococcal 2012-11-10 Completed [facility] f Polysaccharide, 00:00:00 [facility] ical PPSV23 (PNEUMOVAX) Branch Pneumococcal 2008-08-08 Completed [facility] Polysaccharide PPV23 00:00:00 Pneumococcal 2008-08-08 Completed [place] [facility] f Polysaccharide, 00:00:00 [place] [facility] ical PPSV23 (PNEUMOVAX) Branch Pneumococcal 2008-04-05 Completed [place] [facility] Polysaccharide PPV23 00:00:00 Pneumococcal 2008-04-05 Completed [place] [facility] f Polysaccharide, 00:00:00 [facility] ical PPSV23 (PNEUMOVAX) Branch Tdap (Adacel) Unknown Completed University [facility] Physicians Fluzone Quadrivalent Unknown Completed Univ ersity of 0.5 ML Intramuscular [place] Suspension Physicians Vital Signs Vital Name Observation Time Observation Value Comments Source Systolic blood 2021-10-29 158 mm[Hg] [facility] 16:55:00 [facility] Diastolic blood 2021-10-29 111 mm[Hg] [place] o pressure 16:55:00 [facility] Heart rate 2021-10-29 107 /min [facility] 16:55:00 [facility] Respiratory rate 2021-10-29 16 /min [facility] 16:55:00 [facility] Oxygen saturation 2021-10-29 95 /min [facility] Arterial blood 16:55:00 [facility] by Pulse oximetry [place] Body temperature 2021-10-29 37.17 Sara [facility] 15:33:00 [facility] Body height 2021-10-29 152.4 cm [facility] 15:33:00 [facility] Systolic blood 2020-11-29 134 mm[Hg] Location: [facility] 12:58:00 Position: [place] Physician s Sitting Diastolic blood 2020-11-29 87 mm[Hg] Location: [facility] 12:58:00 Position: [place] Physician s Sitting Body height 2020-11-29 60 [in_us] [facility] 12:58:00 [place] [facility] s Weight 2020-11-29 130 [lb_av] [facility] 12:58:00 [place] [facility] s Body mass index 2020-11-29 25.39 kg/m2 [place] o f (BMI) [Ratio] 12:58:00 [facility] [place] [facility] Body temperature 2020-11-29 98 [degF] Method: [facility] 12:58:00 Temporal [place] [facility] s Heart Rate 2020-11-29 102 /min [facility] 12:58:00 [place] [facility] s Diastolic blood 2020-11-04 88 mm[Hg] Location: [place]; [facility] 09:00:00 Position: [place] Physician s Sitting Body height 2020-11-04 60 [in_us] University of 09:00:00 [place] Physician s Weight 2020-11-04 140 [lb_av] University of 09:00:00 [place] Physician s Body mass index 2020-11-04 27.34 kg/m2 University o f (BMI) [Ratio] 09:00:00 [place] Physicia ns Body temperature 2020-11-04 97.8 [degF] Method: [facility] 09:00:00 Temporal [place] Physician s Heart Rate 2020-11-04 90 /min University of 09:00:00 [place] Physician s Systolic blood 2020-11-04 128 mm[Hg] Location: [place]; [facility] 09:00:00 Position: [place] Physician s Sitting Systolic blood 2020-10-04 117 mm[Hg] Location: [place]; [facility] 09:17:00 Position: [place] Physician s Sitting Diastolic blood 2020-10-04 81 mm[Hg] Location: [place]; [facility] 09:17:00 Position: [place] Physician s Sitting Body height 2020-10-04 60 [in_us] University 09:17:00 [place] Physician s Weight 2020-10-04 140 [lb_av] [facility] 09:17:00 [place] Physician s Body mass index 2020-10-04 27.34 kg/m2 University o f (BMI) [Ratio] 09:17:00 [place] [facility]icia ns Body temperature 2020-10-04 96.7 [degF] Method: [facility] 09:17:00 Temporal [place] Physician s Heart Rate 2020-10-04 98 /min University of 09:17:00 [place] Physician s Systolic blood 2020-09-17 127 mm[Hg] Location: [place]; [facility] 10:48:00 Position: [place] Physician s Sitting Diastolic blood 2020-09-17 94 mm[Hg] Location: [place]; [facility] pressure 10:48:00 Position: [place] Physician s Sitting Body height 2020-09-17 60 [in_us] University 10:48:00 [place] Physician s Weight 2020-09-17 140 [lb_av] University 10:48:00 [place] Physician s Body mass index 2020-09-17 27.34 kg/m2 University o f (BMI) [Ratio] 10:48:00 [place] Physicia ns Heart Rate 2020-09-17 88 /min University 10:48:00 [place] [facility] s Respiratory rate 2020-09-17 18 /min University 10:48:00 [place] [facility] s Body temperature 2020-09-17 98.8 [degF] [facility] 10:48:00 [place] Physician s Systolic blood 2020-08-12 146 mm[Hg] Location: [place]; [facility] 09:06:00 Position: [place] Physician s Sitting Diastolic blood 2020-08-12 92 mm[Hg] Location: [place]; [facility] 09:06:00 Position: [place] Physician s Sitting Body height 2020-08-12 60 [in_us] University 09:06:00 [place] Physician s Weight 2020-08-12 130 [lb_av] [facility] 09:06:00 [place] Physician s Body mass index 2020-08-12 25.39 kg/m2 University o f (BMI) [Ratio] 09:06:00 [place] Physicia ns Body temperature 2020-08-12 96.6 [degF] Method: [facility] 09:06:00 Temporal [place] Physician s Heart Rate 2020-08-12 108 /min [facility] 09:06:00 [place] Physician s Systolic blood 2020-05-01 129 mm[Hg] Location: [place]; [facility] 13:37:00 Position: [place] Physician s Sitting Diastolic blood 2020-05-01 88 mm[Hg] Location: [place]; [facility] 13:37:00 Position: [place] Physician s Sitting Body height 2020-05-01 60 [in_us] [facility] 13:37:00 [place] Physician s Weight 2020-05-01 151 [lb_av] University 13:37:00 [place] Physician s Body mass index 2020-05-01 29.49 kg/m2 University o f (BMI) [Ratio] 13:37:00 [place] Physicia ns Body temperature 2020-05-01 98.1 [degF] Method: [facility] 13:37:00 Temporal [place] Physician s Heart Rate 2020-05-01 97 /min [facility] 13:37:00 [place] Physician s Respiratory rate 2020-05-01 18 /min [facility] 13:37:00 [place] Physician s Systolic blood 2020-04-24 117 mm[Hg] Location: [place]; [facility] 09:53:00 Position: [place] Physician s Sitting Diastolic blood 2020-04-24 83 mm[Hg] Location: [place]; [facility] 09:53:00 Position: [place] Physician s Sitting Body height 2020-04-24 60 [in_us] University of 09:53:00 [place] Physician s Weight 2020-04-24 151 [lb_av] University of 09:53:00 [place] [facility] Body mass index 2020-04-24 29.49 kg/m2 University o f (BMI) [Ratio] 09:53:00 [place] [facility] [place] Body temperature 2020-04-24 97.7 [degF] Method: [facility] 09:53:00 Temporal [place] [facility] Heart Rate 2020-04-24 118 /min University of 09:53:00 [place] [facility] Systolic blood 2019-10-20 154 mm[Hg] Location: [place]; [facility] 10:01:00 Position: [place] [facility] Sitting Diastolic blood 2019-10-20 96 mm[Hg] Location: [place]; [facility] 10:01:00 Position: [place] [facility] Body height 2019-10-20 60 [in_us] University of 10:01:00 [place] [facility] Weight 2019-10-20 140 [lb_av] University of 10:01:00 [place] [facility] Body mass index 2019-10-20 27.34 kg/m2 University o f (BMI) [Ratio] 10:01:00 [place] [facility] Body temperature 2019-10-20 98.4 [degF] Method: Oral University of 10:01:00 [place] [facility] Heart Rate 2019-10-20 93 /min University of 10:01:00 [place] [facility] Systolic blood 2019-10-13 132 mm[Hg] Location: [place]; [place] of pressure 09:41:00 Position: [place] [facility] Sitting Diastolic blood 2019-10-13 86 mm[Hg] Location: [place]; [facility] pressure 09:41:00 Position: [place] [facility] Sitting Weight 2019-10-13 140 [lb_av] University of 09:41:00 [place] [facility] Body mass index 2019-10-13 27.34 kg/m2 University o f (BMI) [Ratio] 09:41:00 [place] [facility] Body temperature 2019-10-13 98 [degF] Method: Oral University of 09:41:00 [place] [facility] Heart Rate 2019-10-13 93 /min Location: L [facility] 09:41:00 Brachial [place] [facility] Artery; Respiratory rate 2019-10-13 14 /min Quality: Normal Universi ty of 09:41:00 [place] [facility] BP Systolic 2019-09-12 118 mm[Hg] Location: [facility]; [place] of ::00 Position: [place] [facility] Sitting BP Diastolic 2019-09-12 86 mm[Hg] Location: [facility]; [facility] ::00 Position: [place] [facility] S[facility] Height 2019-09-12 60 [in_us] University of 14:01:00 [place] [facility] Temperature 2019-09-12 98.6 [degF] Method: Oral [place] of :01:00 [place] [facility] Heart Rate 2019-09-12 116 /min Location: R [facility] :: Brachial [place] [facility] Artery; Quality: Normal Respiration Rate 2019-09-12 15 /min Quality: Normal Universi ty of 14:01:00 [place] [facility] BP Systolic 2019-01-27 116 mm[Hg] Location: [place]; [place] of 09:02:00 Position: [place] [facility] Sitting BP Diastolic 2019-01-27 81 mm[Hg] [facility] 09:02:00 Position: [place] [facility] S[facility] Height 2019-01-27 60 [in_us] University of 09:02:00 [place] [facility] Temperature 2019-01-27 98.4 [degF] Method: [facility] of 09:02:00 [place] [facility] Heart Rate 2019-01-27 103 /min University of 09:02:00 [place] [facility] BP Systolic 2019-01-25 115 mm[Hg] Location: [place]; [place] of :: Position: [place] [facility] Sitting BP Diastolic 2019-01-25 81 mm[Hg] Location: [facility]; [place] of ::00 Position: [place] [facility] S[facility] Height 2019-01-25 60 [in_us] University of 11:14:00 [place] [facility] Weight 2019-01-25 142 [lb_av] University of :14:00 [place] [facility] Body Mass Index 2019-01-25 27.73 kg/m2 University o f Calculated 11:14:00 [place] [facility] Temperature 2019-01-25 98.2 [degF] Method: Oral [place] of 11:14: [place] [facility] Heart Rate 2019-01-25 101 /min Location: R [facility] 11:: Radial; [place] [facility] Respiration Rate 2019-01-25 18 /min Quality: Normal Universi ty of :14:00 [place] [facility] BP Systolic 2019-01-04 120 mm[Hg] Location: [facility]; [facility] :34:00 Position: [place] [facility] Sitting BP Diastolic 2019-01-04 88 mm[Hg] Location: [facility]; [facility] :34:00 Position: [place] [facility] Sitting Temperature 2019-01-04 98.2 [degF] Method: Oral University of 08:34:00 [place] [facility] Heart Rate 2019-01-04 101 /min Location: R [facility] :34: Brachial [place] [facility] Artery; Respiration Rate 2019-01-04 16 /min Quality: Normal Universi ty of :34: [place] [facility] BP Systolic 2018-12-23 115 mm[Hg] Location: [facility]; [facility] :: Position: [place] [facility] Sitting BP Diastolic 2018-12-23 84 mm[Hg] Location: [facility]; [facility] :: Position: [place] [facility] Sitting Height 2018-12-23 60 [in_us] University 11:14:00 [place] [facility] Body Mass Index 2018-12-23 27.73 kg/m2 University o f Calculated 11:14:00 [place] [facility] Weight 2018-12-23 142 [lb_av] University of 11:14:00 [place] [facility] Temperature 2018-12-23 97.9 [degF] Method: Oral [place] of 11:14: [place] [facility] Heart Rate 2018-12-23 99 /min Location: R [facility] 11:14: Brachial [place] [facility] Artery; Respiration Rate 2018-12-23 14 /min University of 11:14:00 [place] [facility] BP Systolic 2018-12-23 117 mm[Hg] Location: [facility]; [facility] 10:06:00 Position: [place] [facility] Sitting BP Diastolic 2018-12-23 85 mm[Hg] Location: [facility]; [facility] 10:06:00 Position: [place] [facility] Sitting Height 2018-12-23 60 [in_us] [facility] 10:06:00 [place] [facility] Weight 2018-12-23 142 [lb_av] [facility] 10:06:00 [place] [facility] Body Mass Index 2018-12-23 27.73 kg/m2 University o f Calculated 10:06:00 [place] [facility] Temperature 2018-12-23 98.4 [degF] Method: Oral University of 10:06:00 [place] [facility] Heart Rate 2018-12-23 97 /min University of 10:06:00 [place] [facility] BP Systolic 2018-11-28 114 mm[Hg] [place] [facility]; [facility] 10:36:00 Position: [place] [facility] Sitting BP Diastolic 2018-11-28 83 mm[Hg] Location: [place]; [facility] 10:36:00 Position: [place] [facility] Sitting Height 2018-11-28 60 [in_us] University of 10:36:00 [place] [facility] Weight 2018-11-28 142 [lb_av] University of 10:36:00 [place] [facility] Body Mass Index 2018-11-28 27.73 kg/m2 University o f Calculated 10:36:00 [place] [facility] Heart Rate 2018-11-28 112 /min University of 10:36:00 [place] [facility] BP Systolic 2018-11-14 109 mm[Hg] Location: [facility]; [facility] 09:57:00 Position: [place] [facility] Sitting BP Diastolic 2018-11-14 71 mm[Hg] Location: [facility] 09:57:00 Position: [place] [facility] Sitting [...] s BP Systolic 2018-06-08 133 mm[Hg] [place] [facility]; [facility] 11:36:00 Position: [place] [facility] Sitting BP Diastolic 2018-06-08 93 mm[Hg] Location: [facility]; [facility] 11:36:00 Position: [place] [facility] Sitting Height 2018-06-08 60 [in_us] University of 11:36:00 [place] [facility] Weight 2018-06-08 144 [lb_av] University of 11:36:00 [place] [facility] Body Mass Index 2018-06-08 28.12 kg/m2 University o f Calculated 11:36:00 [place] [facility] Temperature 2018-06-08 98.6 [degF] Method: [place] of 11:36:00 Temporal [place] [facility] Heart Rate 2018-06-08 104 /min Location: [facility] 11:36:00 Brachial [place] [facility] Artery; BP Systolic 2018-05-30 137 mm[Hg] Location: [facility]; [facility] 11:19:00 Position: [place] [facility] Sitting BP Diastolic 2018-05-30 91 mm[Hg] [facility] Position: [place] [facility] Height 2018-05-30 60 [in_us] [facility] 11:19:00 [place] [facility] Weight 2018-05-30 144 [lb_av] [facility] 11:19:00 [place] [facility] Body Mass Index 2018-05-30 28.12 kg/m2 [place] Calculated 11:19:00 [place] [facility] Temperature 2018-05-30 97.8 [degF] Method: [facility] 11:19:00 Temporal [place] [facility] Heart Rate 2018-05-30 108 /min [facility] 11:19:00 [place] [facility] BP Systolic 2018-05-11 140 mm[Hg] [facility] 10:52:00 Position: [place] [facility] Sitting BP Diastolic 2018-05-11 98 mm[Hg] [facility] 10:52:00 Position: [place] [facility] Sitting Height 2018-05-11 60 [in_us] University 10:52:00 [place] [facility] Weight 2018-05-11 144 [lb_av] University 10:52:00 [place] [facility] Body Mass Index 2018-05-11 28.12 kg/m2 [place] f Calculated 10:52:00 [place] [facility] Temperature 2018-05-11 97.9 [degF] Method: [facility] 10:52:00 Temporal [place] [facility] Heart Rate 2018-05-11 115 /min [facility] 10:52:00 [place] [facility] Procedures Procedure Date / Time Performing Source Performed Clinician IR EXCHANGE NEPHROSTOMY 2021-10-29 Sharita Beckford [facility] CATHETER 16:56:[address] Renal Stone [id number] 2020[facility]11 [facility] Physicians [QL] CBC (INCLUDES DIFF/PLT) 2020-11-04 [facility] 00:00:00 Physicians [QL] CULTURE, URINE, ROUTINE 2020-11-04 [facility] 00:00:00 Physicians [QL] CULTURE, URINE, ROUTINE 2020-10-25 [facility] 00:00:00 Physicians [QL] CBC (INCLUDES DIFF/PLT) 2020-10-04 [facility] 00:00:00 Physicians [QL] URINALYSIS, COMPLETE 2020-09-17 [facility] W/REFLEX TO CULTURE 00:00:00 Physicians [QL] URINALYSIS, COMPLETE 2020-07-16 [facility] W/REFLEX TO CULTURE 00:00:00 Physicians [QL] CULTURE, URINE, ROUTINE 2020-07-11 [facility] 00:00:00 Physicians [QL] BASIC METABOLIC PANEL 2020-07-11 [facility] W/EGFR 00:00:00 Physicians Central Line 2020-06-14 [facility] 00:00:00 Physicians [place] Insertion 2020-06-11 [facility] 00:00:00 Physicians [QL] VITAMIN D, 25 HYDROXY 2020-05-01 [facility] AND 1,25 DIHYDROXY, LC/MS/MS 00:00:00 Phy sicians [Q] CALCIUM 2020-05-01 [facility] 00:00:00 Physicians [QL] PTH-RELATED PROTEIN 2020-05-01 [facility] (PTH-RP) 00:00:00 Physicians [QL] URIC ACID 2020-05-01 [facility] 00:00:00 Physicians [place] Renal [id number] 2020-05-01 [facility] 00:00:00 Physicians MA Breast mammogram bilateral 2020-04-24 Un [facility] [id number] 00:00:[address] Abdomen/Pelvis w/wo 2020-04-11 [facility] contrast [id number] 00:00:00 Physicians . [facility] - PAP 2019-10-20 [facility] 00:00:[address] Abdomen/Pelvis w/wo 2019-10-10 [facility] contrast [id number] 00:00:[address] Abd Renal Protocol w/wo IV 2019-09-11 [facility] [id number] [facility]:00:[address] Renal Stone [id number] 2019-09-11 [facility] 00:[facility]:00 Physicians [QLH] CULTURE, URINE, ROUTINE 2018-12-23 [facility] [QLH] CBC (INCLUDES DIFF/PLT) 2018-12-23 [facility] MRI Pelvis with and without 2018-12-05 [facility] contrast [id number] 00:00:00 Physicians [QLH] CULTURE, URINE, ROUTINE 2018-11-28 [facility] Physicians [QLH] URINALYSIS, COMPLETE 2018-11-28 [facility] 00:00:00 Physicians [QLH] CBC (INCLUDES DIFF/PLT) 2018-11-28 [facility] Physicians [QLH] CMP W/EGFR 2018-11-28 [facility] 00:00:00 Physicians MRI Abdomen/Pelvis w/wo 2018-11-14 [facility] contrast [id number] 00:00:00 Physicians Abdomen AP view [id number] 2018-08-01 [facility] 00:00:00 Physicians Abdomen AP view [id number] 2018-06-08 [facility] 00:00:00 Physicians [QLH] CBC (INCLUDES DIFF/PLT) 2018-05-[facility] [QLH] BASIC METABOLIC PANEL 2018-05-30 [facility] W/EGFR 00:00:[address] Abd Renal Protocol w/wo IV 2018-05-30 [facility] contrast [id number] 00:00:00 Physicians [H] C Urine Transplant 2018-05-30 [facility] 00:00:00 Physicians [H] Culture: Wound/Abscess 2018-05-30 [facility] w/Gram Stain 00:00:00 Physicians [H] PTH Profile 2018-05-11 [facility] 00:00:00 Physicians [QH] CALCIUM 2018-05-11 [facility] 00:00:00 Physicians [QLH] BUN/CREATININE RATIO 2018-05-11 [facility] W/EGFR 00:00:00 Physicians [B] VITAMIN D 25-HYDROXY 2018-05-11 [facility] 00:00:00 Physicians [QLH] CBC (INCLUDES DIFF/PLT) 2018-05-11 [facility] [place] 00:00:00 Physicians History of Colostomy University [facility] Physicians History of Dilation And Universi ty [facility] Curettage Of Cervical Stump Phys icians History of Hysteroscopy Universi ty [facility] Physicians History of [facility]reteral [facility] [place] Ventriculoperitoneal shunt Physi cians creation History of Exploratory Universit y [facility] laparotomy Physicians Plan of Care Planned Activity Planned Date Details Comments Source Future Scheduled 2021-04-[address] [facility] 00:00:00 (#1) [code = Medical Center INFLUENZA VACCINE (#1)] Future Scheduled 2021-04-[address] [facility] Test 00:00:00 (#1) [code = Medical Center INFLUENZA VACCINE (#1)] Future Scheduled 2020-10-29 [place] Renal [id number] Universit y of Test 00:00:00 [code = 40338] [place] [facility] Future Scheduled 2020-10-29 [place] Renal [id number] Universit y of Test 00:00:00 [code = 14060] [place] [facility] Future Scheduled 2020-08-[address] [facility] 00:[facility]:00 SCREENING (12+) Medical Cent er [code = DEPRESSION SCREENING (12+)] Future Scheduled 2020-08-[address] [facility] Test 00:00:00 SCREENING (12+) Medical Cent er [code = DEPRESSION SCREENING (12+)] Diagnostic Test 2020-06-11 [facility] o f Pending 00:00:00 Insertion [code = [place] [facility] [place] Insertion] Future Scheduled 2020-04-[address] [facility] Test 00:00:00 (#1) [code = Medical Center INFLUENZA VACCINE (#1)] Diagnostic Test 2019-10-20 CT Abd Renal University o f Pending 00:00:00 Protocol w/wo IV [place] [facility] contrast [id number] [code = 75062-44] Diagnostic Test 2019-10-10 CT Abdomen/Pelvis Univers ity of Pending 00:00:00 w/[place] [address] [code = 18256] Diagnostic Test 2018-12-05 MRI Pelvis with Universit y of Pending 00:00:00 and without [place] [facility] contrast 25341 [code = 30596] Diagnostic Test 2018-12-05 MRI Pelvis with Universit y of Pending 00:00:00 and without [place] [facility] contrast 87864 [code = 90787] Diagnostic Test 2018-12-01 Abdomen AP view Univer toni of Pending 00:00:00 91433 [code = [place] [facility] 40369] Future Scheduled 2005-03-[address] [facility] 00:00:00 WELLNESS (YEAR [address] or FIRST YEAR if no IPPE) [code = MEDICARE ANNUAL WELLNESS (YEAR 2 or FIRST YEAR if no IPPE)] Future Scheduled 2005-03-[address] [facility] 00:00:00 WELLNESS (YEAR [address] or FIRST YEAR if no IPPE) [code = MEDICARE ANNUAL WELLNESS (YEAR 2 or FIRST YEAR if no IPPE)] Future Scheduled 2005-03-[address] [facility] 00:00:00 WELLNESS (YEAR [address] or FIRST YEAR if no IPPE) [code = MEDICARE ANNUAL WELLNESS (YEAR 2 or FIRST YEAR if no IPPE)] Future Scheduled [address] [facility] 00:[facility]:00 malignant neoplasm Medical C enter of cervix (procedure) [code = 691163349] Future Scheduled [address] [facility] 00:00:00 malignant neoplasm Medical C enter of cervix (procedure) [code = 326437635] Future Scheduled [address] [facility] 00:00:00 malignant neoplasm Medical C enter of cervix (procedure) [code = 999102690] Future Scheduled 1998 DTAP/TDAP/TD [facility] 00:[facility]:00 VACCINES (1 - [facility] Center Tdap) [code = DTAP/TDAP/TD VACCINES (1 - Tdap)] Future Scheduled 1998 DTAP/TDAP/TD [facility] 00:00:00 VACCINES ( - [facility] Center Tdap) [code = DTAP/TDAP/TD VACCINES (1 - Tdap)] Future Scheduled [address] [facility] 00:00:00 SCREENING [code = Medical Ce nter HEPATITIS C SCREENING] Future Scheduled [address] [facility] 00:00:00 SCREENING [code = Medical Ce nter HEPATITIS C SCREENING] Future Scheduled 1991 COVID-[address] [facility] Test 00:00:00 (1) [code = [facility] Center COVID-19 VACCINE (1)] Future Scheduled 1991 COVID-[address] [facility] Test 00:00:00 (1) [code = [facility] Center COVID-19 VACCINE (1)] Future Scheduled CT Abdomen/Pelvis Before 01May2020 [facility] [place] [address] [code = 62128] Future Scheduled CT Abdomen/Pelvis Before [id number] [facility] [place] w/[place] [address] [code = 12533] Encounters Start End Encounter Admission Attending Care Care Encounter Source Date/Time Date/Time Type Type Clinicians Facility Department ID 2021-06-[address] [facility] Urology [id number] [facility] 16:30:24 [facility] 2018-12-13 Inpatient [facility] [id number] [facility] H 17:12:36 2021-10-29 2021-10-29 [facility] LONNIE Erazo [id number] [facility] 09:03:52 23:59:00 Encounter Gunvir Y HEALTH [id number] ity [facility] [id number] [place] [id number] [address] 2021-10-29 2021-10-29 Outpatient R EVELYNE [facility] [id number] [facility] 09:03:52 23:59:[address] [facility] 2021-10-17 2021-10-17 Telephone EDUARDO Villalobos [id number] [place] 00:00:00 00:00:[address] [id number] Health [id number] 2020-12-31 2021-01-05 Inpatient U MAN, [facility] [id number] [facility] 02:20:00 20:30:00 HIEU 2020-11-29 2020-11-29 AppointEDUARDO Garcias Minimally [id number] [facility] 13:30:00 13:30:00 t; ILAN BARRERA M.D. Invasive ity of Erika TALAVERA [facility] ans 2020-11-04 2020-11-04 AppointEDUARDO [facility] [id number] Univers 09:00:00 09:00:00 t; DEONDRE RAMSAY M.D. Center - ity Hellen MENDOSA M.D. Medical Physici [facility] 2020-10-04 2020-10-[address] [facility] Obstetrics [id number] Univers 09:00:00 09:00:00 t; DEONDRE RASMAY M.D. and i ty of DEONDRE [facility] Hellen James [facility] 2020-09-17 2020-09-17 AppointEDUARDO Magallanes Infectious [id number] Univers 09:00:00 09:00:00 t; KEVIN, Diseases - it y of Erika LAGOS [facility] Medical Ruby James [facility] 2020-08-12 2020-08-12 AppointEDUARDO Cole Urology - [id number] Univers 09:45:00 09:45:00 t; IVETTE JENNINGS [place] ity [facility] 2020-07-16 2020-07-16 EDUARDO Das Family [id number] Univers 16:00:00 16:00:00 t; Erika RHODAES Medicine - ity of [facility] Jose A RHOADES M.D. [facility] 2020-06-25 2020-06-25 Outpatient HERMILO, [facility] [id number] [facility] 10:53:00 18:11:00 BANDAR 2020-05-21 2020-05-[address] [facility] [id number] Univers 16:00:00 16:00:00 t; Erika RHOADES [place] Ruby RHOADES M.D. ans 2020-05-01 2020-05-01 AppointEDUARDO Villa [facility] [id number] Univers 13:15:00 13:15:00 t; ANNIE JUAREZ M.D. lty [facility] Hellen James Physici ans 2020-04-24 2020-04-24 Appointmen EDUARDO VILLASENOR Women's [id number] Univers 10:00:00 10:00:00 t; Ajay PIRES shawn VILLASENOR M.D. [facility] Ruby James [facility] 2020-04-08 2020-04-09 Outpatient LARRY [facility] [id number] [facility] 13:57:00 18:10:00 HAJAR 2020-04-08 2020-04-08 Appointmen EDUARDO JUAREZ [facility] [id number] Univers 10:00:00 10:00:00 t; ANNIE JUAREZ M.D. ity [place], [place] Erika Physici ans 2020-03-28 2020-03-28 Appointmen EDUARDO JENNINGS Urology - [id number] Univers 10:45:00 10:45:00 t; IVETTE JENNINGS [place] ity [facility] Physici ans 2020-03-06 2020-03-06 Appointpo VILLASENOR [facility] [id number] Univers 10:00:00 10:00:00 t; Mildred [facility]ES [facility]. [facility] 2019-12-08 2019-12-08 Appointmen EDUARDO JUAREZ Urology - [id number] Univers 08:45:00 08:45:00 t; ANNIE JUAREZ M.D. [place] [facility] [place]en James [place] Physici ans 2019-11-03 2019-11-03 Sintia VILLALOBOS [facility] [id number] Univers 14:30:00 14:30:00 t; Erika RHOADES [place] SHIRA, Physici M.D. ans 2019-10-27 2019-10-27 AppointEDUARDO Villa Urology - [id number] Univers 10:15:00 10:15:00 t; ANNIE JUAREZ M.D. [place] shawn [facility] Eriak [place] Physici ans 2019-10-21 2019-10-25 Inpatient U [facility] [id number] [facility] 12:15:00 20:00:00 KARLA 2019-10-20 2019-10-[address] [facility] Women's [id number] Univers 10:15:00 10:15:00 t; DEONDRE RAMSAY M.D. Center - ity of Hellen MENDOSA M.D. Medical Physici Center ans 2019-10-13 2019-10-[address] [facility] Family [id number] Univers 09:30:00 09:30:00 t; Erika RHOADES Medicine - ity [facility] DORA Medical Physici Erika Center ans 2019-09-12 2019-09-12 Sintia GUTIÉRREZKIESHA [facility] Family [id number] Univers 13:15:00 13:15:00 t; Erika RHOADES Medicine - ity [facility] DORA Medical Physici Erika [place] ans 2019-08-25 2019-08-25 Inpatient E [facility] [id number] HH 06:34:00 00:52:00 2019-03-21 2019-03-21 Appointpo PECK [facility] [id number] Univers 11:00:00 11:00:00 t; shawn NOEL Alvino MACHADO M.D. Physiccheo Pollard M.D. 2019-01-30 2019-01-30 Emergency [facility] [id number] [facility] 18:32:00 18:32:00 2019-01-27 2019-01-27 EDUARDO Early Women's [id number] Univers 09:00:00 09:00:00 t; DEONDRE RAMSAY M.D. Center i ty of Hellen MENDOSA M.D. Physici ans 2019-01-25 2019-01-25 EDUARDO [place] [facility] [id number] Univers 10:30:00 10:30:00 t; Zana MEJIA - i ty marina SAEED M.D. [facility] Jose A MEJIA Physic silvina [facility] ans 2019-01-22 2019-01-22 Outpatient E MH MED [id number] [facility] 05:46:00 05:46:00 2019-01-12 2019-01-12 Outpatient [facility] [id number] [facility] 17:47:00 17:47:00 2019-01-12 2019-01-[address] [facility] [id number] Univers 11:30:00 11:30:00 t; DEONDRE RAMSAY M.D. i ty of Hellen MENDOSA M.D. Physici ans 2019-01-12 2019-01-[address] [facility] [id number] Univers 07:30:00 07:30:00 t; ANNIE JUAREZ M.D. ity [facility] Physici ans 2019-01-06 2019-01-06 Outpatient [facility] [id number] [facility] 10:09:00 10:09:00 2019-01-04 2019-01-04 AppointEDUARDO Jimenez Family [id number] Univers 08:15:00 08:15:00 t; Erika PORTILLO Medicine i ty of [place], [place] Ruby PORTILLO M.D. ans 2018-12-23 2018-12-[address] [facility] Family [id number] Univers 11:00:00 11:00:00 t; MED PROVIDER, Medicine ity of PROVIDER, [facility] Physici ans 2018-12-23 2018-12-23 AppointEDUARDO [facility] [id number] Univers 09:40:00 09:40:00 t; DEONDRE RAMSAY M.D. Center i ty of Hellen MENDOSA M.D. Physici ans 2018-12-14 2018-12-13 Inpatient E [facility] [address] [facility] 03:28:00 19:10:00 2018-12-07 2018-12-07 AppointEDUARDO [facility] [id number] Univers 10:30:00 10:30:00 t; ANNIE JUAREZ M.D. Associates ity of [facility] M.[facility] Physici ans 2018-11-28 2018-11-28 Appointmen KARON BOONE [facility] Women's [id number] Univers 10:45:00 10:45:00 t; Erika BOONE [facility] Physici ans 2018-11-28 2018-11-[address] [facility] [id number] Univers 09:40:00 09:40:00 t; DEONDRE RAMSAY M.D. i ty of [facility].D. Physici ans 2018-11-14 2018-11-14 AppointEDUARDO [facility] [id number] Univers 09:30:00 09:30:00 t; DEONDRE RAMSAY M.D. [place] i ty of [facility].Noemi. Physici ans 2018-08-10 2018-08-10 Appointmen EDUARDO JUAREZ [place] [id number] Univers 08:45:00 08:45:00 t; ANNIE JUAREZ M.D. [facility] [place], Specialty [facility].DRebecca Physici ans 2018-06-08 2018-06-08 AppointEDUARDO [place] [id number] Univers 09:45:00 09:45:00 t; ANNIE JUAREZ M.D. [facility] [place], Specialty [facility].DRebecca Physici ans 2018-05-30 2018-05-[address] [facility] Urologic [id number] Univers 10:30:00 10:30:00 t; Fiona GODFREY it of LOW, P.A. [place] Karlene GODFREY P.A. ans 2018-05-11 2018-05-11 Appointmen EDUARDO JUAREZ [place] [id number] Univers 10:15:00 10:15:00 t; ANNIE JUAREZ M.D. [facility] it of ANNIE, Specialty [place] M.D. Physici ans 2018-04-15 2018-04-[address] [facility] [id number] Univers 08:45:00 08:45:00 t; ANNIE [facility].D. [facility].DRebecca Physici ans 2010-06-10 2010-06-10 Appointmen EDUARDO STEWART Women's [id number] Univers 13:30:00 13:30:00 t; YOUSIF STEWART [place] Erika Oliver M.D. Physici ans Results Test Description Test Test Results Result Source Time Comments Comments CT Renal Stone 2020-10- Radiation Dose CTDIVOL [place] [address] 22 = 0 (mGy): DLP = 650.76 [...] bowel: Stomach and small bowel loops unremarkable. Kqca-lp-nzoghzltooydhfd fecal material scattered throughout portions of the [...] is presentScott Cristina MASON On 11/18/2020 09:13:57; [id number] by: Santi Evans MDDictated Date/time: 11/18/20 09:14Electronically [...] (test 12.7 g/dl 11.7-15.5 N code = 57127-4) HEMATOCRIT; Normal (test 41.5 % 35.0-45.0 N code = 4544-3) MCV; Normal (test code = 86.5 fL 80.0-100.0 N 787-2) MCHC; Below Low 30.6 g/dl 32.0-36.0 Threshold (test code = 89285-4) RDW; Normal (test code = 14.2 % 11.0-15.0 N 788-0) ABSOLUTE NEUTROPHILS 3100 {cells/uL} 9224-2731 N (test code = ABSOLUTE NEUTROPHILS) ABSOLUTE [...] Normal (test 10.1 % N code = 71874-8) EOSINOPHILS; Normal 2.0 % N (test code = 67685-3) BASOPHILS; Normal (test 0.4 % N code = 99074-4) COMMENT(S) (test code = See Comment Revi ew of peripheral smear COMMENT(S)) confirmsautomat ed results. PLATELET COUNT; Normal TNP N TEST( S) NOT PERFORMED: (test code = 777-3) PLATELET COUNT Unable to report due tosi gnificant platelet clumpi ng.SPECIMEN RECEIVED DATE A ND TIME: Review of peripheral smear confirmsautomated results.[facility] Retroperitoneal Complete [id number] 11:47:00PROCEDURE INFORMATION:Exam: US Retroperitoneal Complete, Kidneys Aorta [...] 9.3 x 5.6 x 6.4 cmNo stones. Zboy-sw-vwhlfibp left hydronephrosis.Aorta: Not well seen.Common iliac arteries: Not well seen.Inferior vena cava: Not well seen.Bladder: Not well seenIMPRESSION:Limited assessment demonstrating alyb-lj-vnqdwkai left hydronephrosis. Theright kidney was not visualized. If further imaging is desired considerfollow-up CTChrjosé miguel Stevenson MD On 11/01/2020 14:36:52; [id number] by: Lester Stevenson MDDictated Date/time: 11/01/20 14:37Electronically Signed by: Lester Stevenson 11/01/2113:37FINAL REPORTUnCedar City Hospital Physicians[QL] CBC (INCLUDES DIFF/PLT)2020-10-04 00:00:00 Test Item Value Reference Range Interpretation Comments WHITE BLOOD CELL 6.5 3.8-10.8 N COUNT (test code = {Thousand/u} WHITE BLOOD CELL COUNT) RED BLOOD CELL 4.89 3.80-5.10 N COUNT (test code = {Million/uL} RED BLOOD CELL COUNT) HEMOGLOBIN; Normal 12.8 g/dl 11.7-15.5 N (test code = 09293-0) HEMATOCRIT; Normal 41.1 % 35.0-45.0 N (test code = 4544-3) MCV; Normal (test 84.0 fL 80.0-100.0 N code = 787-2) MCHC; Below Low 31.1 g/dl 32.0-36.0 Threshold (test code = 21316-4) RDW; Above High 15.4 % 11.0-15.0 Threshold (test code = 788-0) ABSOLUTE 3608 8830-7525 N NEUTROPHILS (test {cells/uL} code = ABSOLUTE [...] Normal 10.2 % N (test code = 70356-7) EOSINOPHILS; 2.3 % N Normal (test code = 24351-8) BASOPHILS; Normal 0.3 % N (test code = 42847-3) COMMENT(S) (test See Comment Review of p eripheral code = COMMENT(S)) smear con firmsautomated results. PLATELET COUNT; TNP N TEST(S) NOT PERFORMED: Normal (test code PLATELET COUNT Unable = 777-3) to report due tosignificant p latelet clumping.SPECIM EN RECEIVED DATE A ND TIME: Review of peripheral smear confirmsautomated results.[facility][] URINALYSIS, COMPLETE W/REFLEX TO [id number] 12:16:00 Test Item Value Reference Range Interpretation [...] Normal (test NEGATIVE NEGATIVE N code = 12562-0) KETONES; Normal (test NEGATIVE NEGATIVE N code = 60356-8) OCCULT BLOOD; Normal NEGATIVE NEGATIVE N (test code = 88927-8) PROTEIN; Abnormal (test 2+ NEGATIVE A code = 72988-2) NITRITE (test code = NEGATIVE NEGATIVE N NITRITE) LEUKOCYTE ESTERASE 2+ NEGATIVE A (test code = LEUKOCYTE ESTERASE) WBC; Abnormal (test 6-10 < OR = 5 A code = 6690-2) RBC; Normal (test code 0-2 < OR = 2 N = 789-8) SQUAMOUS EPITHELIAL 6-10 < OR = 5 A CELLS; Abnormal (test code = 91997-2) BACTERIA; Abnormal FEW NONE SEEN A (test code = 630-4) CALCIUM OXALATE MODERATE NONE OR FEW A CRYSTALS; Abnormal (test code = 61374-1) TRIPLE PHOSPHATE MANY NONE OR FEW A CRYSTALS; Abnormal (test code = 5814-9) HYALINE CAST; Normal NONE SEEN NONE SEEN N (test code = 74281-8) NOTE (test code = NOTE) See Below This urine was analyzed for th e presence of WBC , RBC, bacteria, casts, and othe r formed elements . Only those modoc ents seen were repor alda. [facility][Q] REFLEXIVE URINE [id number] 12:16:00 Test Item Value Reference Range Interpretation Comments REFLEXIVE URINE See Below CULTURE ALEXSANDER CATED - CULTURE (test code = RESULTS TO FOLLOW REFLEXIVE URINE CULTURE) [facility][QL] CULTURE, URINE, [id number] 12:16:00 Test Item Value Reference Range Interpretation Comments CULTURE (test code = See Comment CULTURE , URINE, CULTURE) ROUTINE Praveen ro Number: [id number] Test Status: Final Specimen Source: URINE Specimen Qualit y: Adequate Resul t: Upon furt her incubation: Growth of mixed alvarez was isolated, sugge sting probable contamination. No further testing will be performed. If clinically alexsander cated, recollection us ing a method to minim ize contamination, with prompt transfer to Urine Culture Jennings sport Tube, is recomm ended. [facility] Digital Mammo Screen Chepe w myra [id number] 10:37:00BILATERAL FIRST EVER DIGITAL SCREENING MAMMOGRAM 3D/2D [...] mammogram is recommended.(05/25/2021) This exam was interpreted [id number] for [facility]. Lino philip/killian:05/24/2020 11:22:10 Conservation Technician(s): RT Agueda(R)(M), [facility] sent: BI-RADS 1/2 Mammogram BI-RADS: 2 Benign--Read by: Lino Levi MDDictated Date/time: 05/24/20 11:22Electronically Signed by: Lino Levi MD 05/24/2011:22FINAL REPORTUnCedar City Hospital Physicians [Q] [id number] 14:46:00 Test Item Value Reference Range Interpretation Comments CALCIUM (test code = CALCIUM) 9.4 mg/dl 8.6-10.2 N [facility][QL] URIC [id number] 14:46:00 Test Item Value Reference Range Interpretation Comments URIC ACID; Normal 3.9 mg/dl 2.5-7.0 N Therapeuti c target for (test code = 3086-6) gout pa tients: <6.0 mg/dL [facility][QL] VITAMIN D, 25 HYDROXY AND 1,25 DIHYDROXY, LC/MS/[id number] 14:46:00 Test Item Value Reference Range Interpretation [...] vels <20 ng/mLindicative of Vitamin D deficiency, whi le levelsbetween 2 0 ng/mL and 30 [...] any concern. Juan MF, Travis ROQUE, Muna JOHNSON, et al., Evaluation , treatment,and p revention of vitamin D defic iency: an EndocrineSociet y clinical practice guidel ine. J Clin.Endocrinol . Metab. 2011;96(7):1911 -30. VITAMIN D, 40 ng/ml Reference Range Not 25-OH, D3 (test established This test was code = VITAMIN developed and its analytical D, 25-OH, D3) performance ch aracteristics have been deter mined by [employer]. It has not been cleared or appr ivana by theFDA. This as say has been validated pursu ant to the CLIA regulation s and is used for clinical pu rposes. VITAMIN D, <4 Reference Range Not 25-OH, D2 (test established This test was code = VITAMIN developed and its analytical D, 25-OH, D2) performance ch aracteristics have been deter mined by [employer]. It has not been cleared or appr ivana by theFDA. This as say has been validated pursu ant to the CLIA regulation s and is used for clinical pu rposes.See Note 1 Note 1 F or additional information, pl ease refer to http://educatio n.[employer].farmflo/faq/FA Q199 (This link is being p rovided [...] efrain racteristics have been deter mined by [employer]. It has not been cleared or appr ivana by theFDA. This as say has been validated pursu ant to the CLIA regulation s and is used for clinical pu rposes. Note 2 For additional information, please refer to http://educatio n.[employer].com/faq/FA Q199 (This link is being p rovided for informational/e ducational purposes only.) [facility][] PTH-RELATED PROTEIN (PTH-RP)2020-05-01 14:46:00 Test Item Value [...] analytical performancechar acteristics have been determined by [facility] . It has not beencleared or approved by FDA. This assay has been validatedpursua nt to the CLIA regulations and is used for clinicalpurpose s. [facility]. [facility] - [id number] 00:00:00 Test Item Value Reference Range Interpretation Comments Case (test code = Click ImageLink button N Case) for report. [facility][H] CBC (INCLUDES DIFF/PLT)2018-12-23 13:20:01 Test Item Value Reference Range Interpretation Comments WBC (test code = 8.9 {K/CMM} 3.7-10.4 6690-2) RBC (test code = 4.90 {M/CMM} 4.20-5.40 789-8) Hgb; Below Low 11.1 g/dl 12.0-16.0 Threshold (test code = 718-7) Hct; Below Low 34.8 % 36.0-48.0 Threshold (test code = 66754-0) MCV; Below Low 71.1 fL 80.0-98.0 Threshold (test code = 787-2) MCH; Below Low 22.8 pg 27.0-31.0 Threshold (test code = 785-6) MCHC (test code = 32.0 g/dl 32.0-36.0 786-4) RDW; Above High 25.0 % 11.5-14.5 Threshold (test code = 788-0) Platelet (test code See Note 133-450 Platelet s clumped in = 02715-1) EDTA, unable to estimate, sugge st recollection in a bluetop tube wi th an order for "Blue Top Platelet Count" Mean Platelet 8.6 fL 7.4-10.4 Volume (test code = 82961-5) [facility]] [id number] 13:20:01 Test Item Value Reference Range Interpretation Comments Segmented Neutrophils (test code 66.6 % 45.0-75.0 = 37287-8) Monocytes (test code = 55065-2) 8.6 % 2.0-12.0 Lymphocytes (test code = 65051-1) 21.0 % 20.0-40.0 Eosinophils (test code = 03381-7) 3.2 % 0.0-4.0 Basophils (test code = 706-2) 0.6 % 0.0-1.0 Segs-Bands # (test code = 5.9 {K/CMM} 1.5-8.1 51505-0) Lymphocytes # (test code = 1.9 {K/CMM} 1.0-5.5 82644-8) Monocytes # (test code = 26492-9) 0.8 {K/CMM} 0.0-0.8 Eosinophils # (test code = 0.3 {K/CMM} 0.0-0.5 24001-2) Basophils # (test code = 00298-8) 0.1 {K/CMM} 0.0-0.2 Plt Morphology (test code = Plt Clumped Normal Morphology) Anisocyte; Abnormal (test code = 1+ None Seen A 77255-0) Microcyte (test code = Microcyte) 2+ None Seen A [facility]] CULTURE, URINE, [id number] 13:20:01 Test Item Value Reference Range Interpretation Comments ORGANISM (test Acinetobacter code = 699-9) baumanniiEnterococcus Species FINAL REPORT 50,000 - 100,000 CFU/mL (test code = Acinetobacter baumannii , FINAL REPORT) Multi-drug Resistant Ukhfhvqz47,000 - 50,000 CFU/mL Enterococcus Species 10,000 - 50,000 CFU/mL Yeast [facility][H] [id number] 13:20:01 Test Item Value Reference Range Interpretation Comments ORGANISM (test code = Enterococcus 699-9) Species Ampicillin (test code - S = Ampicillin) Levofloxacin (test - R code = Levofloxacin) Nitrofurantoin (test - S code = Nitrofurantoin) Tetracycline (test - R code = Tetracycline) Vancomycin (test code SEE NOTES S S= Roxanne ceptible, = Vancomycin) R= Resistant, I= Intermediate, N/A= Not Applicable [facility][H] [id number] 13:20:01 Test Item Value Reference Range Interpretation [...] Tobramycin (test code = <=4 S Tobramycin) [facility][H] [id number] 13:20:01 Test Item Value Reference Range Interpretation Comments ORGANISM (test code = Acinetobacter baumannii 699-9) Colistin (test code = .38 S Colistin) Minocycline (test code 1.5 S = Minocycline) [facility] and without [facility] [id number] 2018-12-06 10:08:00Clinical indication: R58- excessive bleedingComparison: CT abdomen pelvis 04/12/2018TECHNIQUE: Multiplanar and multisequence magnetic resonance imaging of thepelvis were obtained with and without IV contrast.IV contrast: 13 mL DotaremFINDINGS:The inferior most portion of the pelvis including portions of the vagina andanal canal were not included on the scan field of view.Reproductive organs: The uterus is anteverted. There are multiple V0lsjlzzibraq uterine fibroids. A 5.1 x 4.2 x [...] greater trochanteric bursitis.7. Left lower quadrant colostomy.SL: [id number] by: Teresa Newsome MDDictated Date/time: 12/06/18 13:39Electronically Signed by: Teresa Newsome MD 12/06/1912:56FINAL REPORT [facility]] CMP [id number] 11:27:01 Test Item Value Reference Range Interpretation Comments Sodium Level 137 {mEq/l} 135-145 (test code = 2951-2) Potassium Level 4.2 {mEq/l} 3.5-5.1 (test code = 2823-3) Chloride Level 104 {mEq/l} 95-109 (test code = 2075-0) Carbon Dioxide 24 {mEq/l} 24-32 (test code = 8-9) AGAP (test code = 13.2 {mEq/l} 10.0-20.0 75881-0) Glucose Lvl (test 95 mg/dl 70-99 Adult refe rence range code = 2345-7) values reflec t the clinical guidel inesof the [place] Diabet es Association. Creatinine Lvl 0.80 mg/dl 0.50-1.40 (test code = 2160-0) Blood Urea 14 mg/dl 7-22 Nitrogen (test code = 3094-0) BUN/Creatinine 18 6-25 Ratio (test code = 3097-3) Total Protein; 9.1 g/dl 6.4-8.4 Above High Threshold (test code = 2885-2) Albumin Lvl (test 3.7 g/dl 3.5-5.0 code = 1751-7) Globulin; Above 5.4 g/dl 2.7-4.2 High Threshold (test code = 99517-7) A/G Ratio (test 0.7 0.7-1.6 code = 1759-0) Calcium Level 9.9 mg/dl 8.5-10.5 Total (test code = 17277-1) ALT (test code = 23 u/l 0-65 1743-4) AST (test code = 17 u/l 0-37 87949-3) Bili Total (test 0.2 mg/dl 0.2-1.3 code = 1974-2) Alk Phos (test 77 u/l 39-136 code = 1783-0) eGFR (test code = 107 The eGFR i s calculated 02751-2) {ML/MIN/1.7} using the CKD-E PI formula. In [...] be multiplied by t he estimated BMI. [facility]] CBC (INCLUDES DIFF/PLT)2018-11-28 11:27:01 Test Item Value Reference Range Interpretation Comments WBC (test code = 9.4 {K/CMM} 3.7-10.4 6690-2) RBC (test code = 5.19 {M/CMM} 4.20-5.40 789-8) Hgb; Below Low 11.6 g/dl 12.0-16.0 Threshold (test code = 718-7) Hct (test code = 36.4 % 36.0-48.0 79731-5) MCV; Below Low 70.1 fL 80.0-98.0 Threshold (test code = 787-2) MCH; Below Low 22.4 pg 27.0-31.0 Threshold (test code = 785-6) MCHC; Below Low 31.9 g/dl 32.0-36.0 Threshold (test code = 786-4) RDW; Above High 30.7 % 11.5-14.5 Threshold (test code = 788-0) Platelet (test code See Note 133-450 Platelet s clumped in = 16754-2) EDTA, unable to estimate, sugge st recollection in a bluetop tube an order for "Blue Top Platelet Count" Mean Platelet 8.2 fL 7.4-10.4 Volume (test code = 62629-3) [facility]] CULTURE, URINE, [id number] 11:27:01 Test Item Value Reference Range Interpretation Comments FINAL REPORT (test Specimen contains 3 or code = FINAL more potential pathogens; REPORT) recommend correlation withurinalysis; if catheterized specimen recommend removal and recollection. Ifclinical situation warrants please call the laboratory for further testing. COMicrobiology [phone]. [facility]iciansSURGICALLY OBTAINED CULTURE + GRAM [id number] 12:12:00 Test Item Value Reference Range Interpretation [...] No Interpretations Established <0 or >4 ANAEROBIC [id number] 05:31:00 Test Item Value Reference Range Interpretation Comments CULTURE (BEAKER) (test No anaerobes isolated code = 1095) URINE [id number] 11:06:00 Test Item Value Reference Range Interpretation Comments CULTURE (ClinicalBoxAKER) A 20-29,000 c ol/mL (test code = 1095) Katie parapsilosis CULTURE (ClinicalBoxAKER) PSEUDOMONAS A 20-29,000 c ol/mL (test code [...] = 25) Resistant <0 or >4 URINE [id number] 11:03:00 Test Item Value Reference Interpretation Comments Range CULTURE (iTOK) (test ENTEROCOCCUS A >100, 000 col/mL code = 1095) SPECIES Enterococcus species Ampicillin (test code S = 26) Linezolid (test code = S 40) Nitrofurantoin (test S code = 23) Tetracycline (test R code = 2) Vancomycin (test code S = 13) CULTURE (iTOK) (test ESCHERICHIA COLI A 5 0-59,000 col/mL [...] Dr. lopez request for avycaz and zerbaxaCT, [id number] 07:41:00FINAL REPORT INDICATION:37-year-old female status post recent [...] LozanoMDReport Verified Date/Time: 06/29/2018 07:41:57 Reading Location: [facility] Diagnostic Imaging Reading Room - [place] [address] W/PLT COUNT & AUTO [id number] 07:07:00 Test Item Value Reference Range Interpretation [...] (BEAKER) (test code = 2801) BASIC METABOLIC [id number] 06:01:00 Test Item Value Reference Range Interpretation [...] PATIEN TS. CBC W/PLT COUNT & AUTO [id number] 22:22:00 Test Item Value Reference Range Interpretation [...] 0-1 GRANULOCYTES-RELATIVE PERCENT (BEAKER) (test code = 2809) BASIC METABOLIC [id number] 21:08:00 Test Item Value Reference Range Interpretation [...] PATIEN TS. 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 Signed: Elena Curtis MDReport Verified Date/Time: 06/28/2018 09:43:00 Reading Location:[facility] Radiology Reading Room 09:43 AMBASIC METABOLIC [id number] 07:59:00 Test Item Value Reference Range Interpretation [...] APPLICABLE FOR DIALYSIS PATIEN TS. HEMOGLOBIN AND [id number] 14:41:00 Test Item Value Reference Range Interpretation Comments HEMOGLOBIN (BEAKER) (test code = 6.5 GM/DL 11.2-15.7 L 410) HEMATOCRIT (BEAKER) (test code = 23.1 % 34.1-44.9 L 411) BASIC METABOLIC [id number] 08:36:00 Test Item Value Reference Range Interpretation [...] PATIEN TS. CBC W/PLT COUNT & AUTO [id number] 05:49:00 Test Item Value Reference Range Interpretation [...] (BEAKER) (test code = 2801) HEMOGLOBIN AND [id number] 14:34:00 Test Item Value Reference Range Interpretation Comments HEMOGLOBIN (BEAKER) (test code = 7.0 GM/DL 11.2-15.7 L 410) HEMATOCRIT (BEAKER) (test code = 24.7 % 34.1-44.9 L 411) CBC W/PLT COUNT & AUTO [id number] 10:55:00 Test Item Value Reference Range Interpretation [...] (BEAKER) (test code = 2801) BASIC METABOLIC [id number] 06:21:00 Test Item Value Reference Range Interpretation [...] PATIEN TS. CBC W/PLT COUNT & AUTO [id number] 14:39:00 Test Item Value Reference Range Interpretation [...] = 2801) RAD, CHEST, 1 VIEW, NON [id number] 10:16:00Reason for exam:->Post Power PICC insertion RUE for tip verificationShould this be performed at the bedside?->YesFINAL REPORT AP chest HISTORY: PICC placement COMPARISON: None IMPRESSION:Right arm PICC present with tip at upper SVC. SVC filter present. Left-sided CHILDREN LIBRARIAN shunt. Grossly normal cardiac silhouette. Right lung clear. Moderate left effusion. Signed: Satish Lancaster VerifiedDate/Time: 06/25/2018 10:16:18 Reading Location: [address] Consult Reading Room BASIC METABOLIC [id number] 09:58:00 Test Item Value Reference Range Interpretation [...] PATIEN TS. CBC W/PLT COUNT & AUTO [id number] 13:38:00 Test Item Value Reference Range Interpretation [...] (BEAKER) (test code = 2801) BASIC METABOLIC [id number] 13:03:00 Test Item Value Reference Range Interpretation [...] PATIEN TS. BODY FLUID CULTURE + GRAM [id number] 16:53:00 Test Item Value Reference Interpretation Comments [...] blood (BEAKER) (test code = cells seen 207051) URINE [id number] 10:14:00 Test Item Value Reference Range Interpretation [...] Vancomycin (test code S = 13) BLOOD [id number] 11:00:00 Test Item Value Reference Range Interpretation Comments CULTURE (BEAKER) (test No growth in 5 days code = 1095) BLOOD [id number] 06:00:00 Test Item Value Reference Range Interpretation Comments CULTURE (BEAKER) (test No growth in 5 days code = 1095) BASIC METABOLIC [id number] 04:43:00 Test Item Value Reference Range Interpretation [...] DIALYSIS PATIEN TS. URINALYSIS W/ REFLEX URINE [id number] 15:11:00 Test Item Value Reference Range Interpretation Comments COLOR (BEAKER) (test code = 470) [place] CLARITY (BEAKER) (test code = 469) Hazy [...] 68 /HPF MUCUS (BEAKER) (test code = 5594) Rare SOURCE(BEAKER) (test code = 2912) ANG, NEPHROSTOMY, PERC, EXTERNAL [id number] 13:43:00Reason for exam:- >right obstructing stone with UTI, needs right PCNU if possible or PCN if not FINAL REPORT Fluoroscopic and ultrasound guided right nephroureterostomy tube placement, 06/12/2018. Clinical History: Obstructing stone at the junction of the right distal ureter and ileoconduit with hydronephrosis and urosepsis. Patient has a history of spina bifida/caudal re gression. Modality: Sonography and fluoroscopy Financial Reserve Clerk: Faisal Felix MD. Managing Editor: None. Sedation: General anesthesia provided by the [...] then removed. The tract wasdilated to 8 German. An 8.5 German by 28 cm nephroureterostomy catheter was then [...] [place]eport Verified Date/Time: 06/12/2018 13:43:17 Reading Location: [facility] P048 Angio Body Reading Room (HEMOGRAM ONLY)2018-06-12 [...] and blue (Citrate) tube. spoke to RN ID:[id number] NUCLEATED RED BLOOD 0 /100 WBC 0-0 CELLS (BEAKER) (test code = 413) BASIC METABOLIC [id number] 06:52:00 Test Item Value Reference Range Interpretation [...] S NOT APPLICABLE FOR DIALYSIS PATIEN TS. [id number] 06:37:00 Test Item Value Reference Range Interpretation [...] 2.5-3.5 for patients with mechanical heart valves.CT, [id number] 18:04:00FINAL REPORT CT scan of the abdomen [...] MDReport Verified Date/Time: 06/11/2018 18:04:02 Reading Location: [address] Consult Reading Room PREGNANCY SCREEN, [id number] 15:46:00 Test Item Value Reference Range Interpretation Comments TEST URINE (BEAKER) (test Negative code = 583) URINALYSIS W/ REFLEX URINE [id number] 12:32:00 Test Item Value Reference Range Interpretation [...] SOURCE(BEAKER) (test code = 2795) URINALYSIS W/ [id number] 12:32:00 Test Item Value Reference Range Interpretation [...] 1521) SOURCE(BEAKER) (test code = Urine, Urostomy 5215) BASIC METABOLIC [id number] 06:01:00 Test Item Value Reference Range Interpretation [...] DIALYSIS PATIEN TS. LACTIC ACID, VENOUS, WHOLE [id number] 05:31:00 Test Item Value Reference Range Interpretation Comments LACTATE BLOOD VENOUS (2) (BEAKER) 0.8 mmol/L 0.5-2.2 (test code = 2872) Effective 01/01/2016: Units/Reference Range ChangeNew: 0.5-2.2 mmol/L Previous: 5-20 mg/[id number] 05:20:00 Test Item Value Reference Range Interpretation Comments PARTIAL THROMBOPLASTIN TIME 35.9 seconds 22.5-36.0 (BEAKER) (test code = 760) PROTHROMBIN TIME/[id number] 05:19:00 Test Item Value Reference Range Interpretation [...] code = 2801) LACTIC ACID, ARTERIAL, WHOLE [id number] 02:05:00 Test Item Value Reference Range Interpretation Comments LACTATE BLOOD 0.6 mmol/L 0.5-2.2 Specimen sligh tly ARTERIAL (2) (BEAKER) hemoly zed (test code = 2874) Effective 01/01/2016: Units/Reference Range ChangeNew: 0.5-2.2 mmol/L Previous: 5-20 mg/[id number] 01:43:00 Test Item Value Reference Range Interpretation Comments MAGNESIUM (BEAKER) 2.0 mg/dL 1.6-2.6 Specimen moderately (test code = 627) hemolyzed [id number] 01:43:00 Test Item Value Reference Range Interpretation Comments PHOSPHORUS (BEAKER) 3.0 mg/dL 2.3-4.7 Specimen moderately (test code = 604) hemolyzed COMPREHENSIVE METABOLIC [id number] 01:43:00 Test Item Value Reference Range Interpretation [...] PATIEN TS. CBC W/PLT COUNT & AUTO [id number] 01:20:00 Test Item Value Reference Range Interpretation [...] CT Abd Renal Protocol w/wo IV contrast [id number] 11:17:00Study: Abd Renal Protocol w/wo IV contrast [...] nonobstructive right nephrolithiasis.4. Moderate-sized left pleural effusion.SL: [id number] by: Faisal Calvert MDDictated Date/time: 06/02/18 12:50Electronically Signed by: Faisal Calvert MD 06/02/1813:00FINAL REPORTUnC[facility][H] C Urine Transplant 2018-05-30 16:33:01 Test Item Value Reference Range Interpretation Comments ORGANISM (test code Escherichia = 699-9) coliEnterococcus Species FINAL REPORT (test >100,000 CFU/mL code = FINAL Escherichia coli 50,000 - REPORT) 100,000 CFU/mL Enterococcus Species .<10,000 CFU/mL [facility][H] [id number] 16:33:01 Test Item Value Reference Range Interpretation [...] Tetracycline (test code = - S Tetracycline) [facility][H] [id number] 16:33:01 Test Item Value Reference Range Interpretation Comments ORGANISM (test code = Enterococcus 699-9) Species Ampicillin (test code - S = Ampicillin) Levofloxacin (test - R code = Levofloxacin) Nitrofurantoin (test - S code = Nitrofurantoin) Tetracycline (test - R code = Tetracycline) Vancomycin (test code SEE NOTES S S= Roxanne ceptible, = Vancomycin) R= Resistant, I= Intermediate, N/A= Not Applicable [facility][H] Culture: Wound/Abscess w/Gram [id number] 16:33:01 Test Item Value Reference Range Interpretation Comments Gram St (test code Moderate WBC's Moderate = Gram St) Gram Negative Rods Moderate Gram Positive Cocci InClusters ORGANISM (test code Escherichia = 699-9) coliEnterococcus SpeciesProteus vulgaris FINAL REPORT (test Many Escherichia coli Many code = FINAL Enterococcus Species REPORT) Moderate Proteus vulgaris [facility][H] [id number] 16:33:01 Test Item Value Reference Range Interpretation [...] S e (test code = Trimethoprim/Sulfamethoxazol e) [facility][H] [id number] 16:33:01 Test Item Value Reference Range Interpretation Comments ORGANISM (test code = Enterococcus Species 699-9) Ampicillin (test code = <=2 S Ampicillin) Vancomycin (test code = 2 S Vancomycin) [facility][H] [id number] 16:33:01 Test Item Value Reference Range Interpretation [...] Trimethoprim/Sulfamet Interm ediate, hoxazole) N/A= Not Applicable [facility]] CALCIUM, [id number] 13:50:01 Test Item Value Reference Range Interpretation Comments Ca Ion Serum (test code = ) 1.28 mmol/L 1.00-1.38 Ca Norm Serum (test code = Ca 1.28 mmol/L 1.00-1.38 Norm Serum) [facility]] BUN/CREATININE RATIO [id number] 13:50:01 Test Item Value Reference Range Interpretation Comments Blood Urea 12 mg/dl 7-22 Nitrogen (test code = 3094-0) Creatinine Lvl 0.70 mg/dl 0.50-1.40 (test code = 2160-0) eGFR (test code = 110 The eGFR i s calculated 74625-5) {ML/MIN/1.7} using the CKD-E PI formula. In [...] be multiplied by t he estimated BMI. [facility][] [id number] 13:50:01 Test Item Value Reference Range Interpretation Comments Calcium Level Total (test code = 9.5 mg/dl 8.5-10.5 85858-3) [facility]] PTH, INTACT (WITHOUT CALCIUM)2018-05-11 13:50:01 Test Item Value Reference Range Interpretation Comments Parathyroid Hormone Intact (test 64.7 pg/ml 18.4-80.1 code = 2731-8) [facility]] CBC (INCLUDES DIFF/PLT)2018-05-11 13:50:01 Test Item Value Reference Range Interpretation Comments WBC (test code = 9.3 {K/CMM} 3.7-10.4 6690-2) RBC (test code = 5.02 {M/CMM} 4.20-5.40 789-8) Hgb; Below Low 11.5 g/dl 12.0-16.0 Threshold (test code = 718-7) Hct; Below Low 35.7 % 36.0-48.0 Threshold (test code = 58699-5) MCV; Below Low 71.2 fL 80.0-98.0 Threshold (test code = 787-2) MCH; Below Low 22.9 pg 27.0-31.0 Threshold (test code = 785-6) MCHC (test code = 32.1 g/dl 32.0-36.0 786-4) RDW; Above High 22.8 % 11.5-14.5 Threshold (test code = 788-0) Platelet (test code See Note 133-450 Platelet s clumped in = 78401-9) EDTA, unable to estimate, kayleen kahn recollection in a bluetop tube wi th an order for "Blue Top Platelet Count" Mean Platelet 8.9 fL 7.4-10.4 Volume (test code = 08659-3) [facility]] [id number] 13:50:01 Test Item Value Reference Range Interpretation Comments Segmented Neutrophils (test code 63.0 % 45.0-75.0 = 38223-4) Monocytes (test code = 11912-7) 9.5 % 2.0-12.0 Lymphocytes (test code = 20433-4) 23.6 % 20.0-40.0 Eosinophils (test code = 96006-5) 3.4 % 0.0-4.0 Basophils (test code = 706-2) 0.5 % 0.0-1.0 Segs-Bands # (test code = 5.9 {K/CMM} 1.5-8.1 86314-6) Lymphocytes # (test code = 2.2 {K/CMM} 1.0-5.5 06128-8) Monocytes #; Above High Threshold 0.9 {K/CMM} 0.0-0.8 (test code = 71099-6) Eosinophils # (test code = 0.3 {K/CMM} 0.0-0.5 80039-4) Plt Morphology (test code = Plt Clumped Morphology) Anisocyte; Abnormal (test code = 1+ None Seen A 97728-2) Microcyte (test code = Microcyte) 2+ None Seen A [facility]] VITAMIN D, 25-HYDROXY, LC/MS/[id number] 13:50:01 Test Item Value Reference Range Interpretation Comments Vitamin D, 25-OH, 33.5 ng/ml 30.0-100.0 Reference range is based Total (test code on recommen dations in the = Vitamin D, EndocrineSociet y Clinical 25-OH, Total) Practice Guide line (J Clin Endocrinol Mdfls3232;96:19 11-1930) [facility]
[2021-11-12 19:58] LABS: Urine Blood 2+ (Negative); Urine Glucose Negative (Negative); Urine Protein 3+ (Negative); Urine pH 8.5 (5.0-7.0)
[2021-11-12] MEDS ORDERED: NA CHLORIDE 0.9% 2,000 ML ONE (20:09)
[2021-11-12] MEDS ORDERED: NA CHLORIDE 0.9% 100 ML IV ONE ×2 (20:10→22:58)
[2021-11-12] MEDS ORDERED: CEFEPIME 1 GM/VIAL ONE ×2 (20:10→22:58)
[2021-11-12 20:15] LABS: Protime INR 1.5
--- NOTE | 2021-11-12 20:32 | RAD REPORT ---
EXAM DESCRIPTION: Sandyt Single View11/12/2021 8:08 pm CLINICAL HISTORY: Fever COMPARISON: June 2021 FINDINGS: Moderate to large left pleural effusion is minimally decreased in size Atelectasis left lung base Right lung appears clear Heart is normal size. Filter within the SVC. Ventricular pleural catheter in place.
[2021-11-12 20:35] LABS: Absolute Lymphocytes (CBC) 1.8 K/uL (0.7-4.9); Hematocrit 30.1 % (36.0-45.0); Lymphocytes % 9.1 % (15.3-44.8); RBC Red Blood Cell Count 4.28 M/uL (3.86-4.86)
[2021-11-12 20:45] LABS: Urine Amorphous Sediment 3+ /HPF (NONE SEEN); Urine Bacteria LOADED /HPF (<20); Urine Mucus 4+ /HPF (NONE SEEN); Urine RBC TNTC /HPF (NONE SEEN)
[2021-11-12 20:58] LABS: MPV 6.5 fL (7.6-11.3)
[2021-11-12 20:58] LABS: ALT/SGPT 17 U/L (12-78); AST/SGOT 6 U/L (15-37); Albumin 2.8 g/dL (3.4-5.0); Alkaline Phosphatase 94 U/L (45-117); BUN Blood Urea Nitrogen 23 mg/dL (7-18); Bicarbonate 20 mmol/L (21-32); Bilirubin Direct 0.2 mg/dL (0-0.2); Bilirubin Total 0.4 mg/dL (0.2-1.0); Glucose Level 104 mg/dL (74-106); Magnesium 2.3 mg/dL (1.8-2.4); NT PRO-BNP 30 pg/mL (<125); Potassium 3.5 mmol/L (3.5-5.1); Sodium Level 137 mmol/L (136-145); Troponin High Sensitivity < 3.00 pg/mL (<58.9)
[2021-11-12] MEDS ORDERED: HYDROMORPHONE HCL 1 MG/ML INJ ONE ×2 (21:13→22:57)
[2021-11-12] MEDS ORDERED: ONDANSETRON 4 MG/2 ML VIAL ONE ×2 (21:13→22:57)
[2021-11-12 21:30] LABS: Anisocytosis 1+; Blood Morphology Comment NOTED (NOT SEEN); Hypochromasia 1+; Platelet Estimate INCR
--- NOTE | 2021-11-12 21:56 | RAD REPORT ---
EXAM DESCRIPTION: CT - Chest Abd Pelvis Wo Con - 11/12/2021 9:23 pm CLINICAL HISTORY: Chest and abdominal pain. Fever COMPARISON: CT abdomen May 2021 TECHNIQUE: Computed axial tomography of the chest, abdomen and pelvis was obtained. Oral contrast wa s given. IV contrast was not requested. All CT scans are performed using dose optimization technique as appropriate and may include automated exposure control or mA/KV adjustment according to patient size. FINDINGS: The evaluation of mediastinum, ariel, vessels and solid organs is limited secondary to the lack of IV contrast administration Moderate to large left pleural effusion. Ventricular pleural shunt with its tip in the medial lower l eft pleural space A few areas of subsegmental atelectasis within the lung bases. No mediastinal or hilar lymphadenopathy. Filter within the SVC. The liver, spleen, pancreas, and adrenals appear grossly normal Percutaneous tube within the left renal pelvis. Moderate left hydronephrosis. 10 millimeter calculus left UPJ. Right renal staghorn calculi. 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 Left lower quadrant colostomy. Parastomal hernia contains nondilated bowel. IUD within a fibroid uterus. Spina bifida occulta. Chronic presacral soft tissue thickening. IMPRESSION: Moderate to large chronic left pleural effusion 10 millimeter calculus left UPJ with moderate left hydronephrosis. Left percutaneous nephrostomy tube in place.
--- NOTE | 2021-11-12 22:20 | EDPHYS ---
Physician Documentation [facility] Name: Leila Aquino Age: 41 yrs Sex: Female : 1980 Arrival Date: 11/12/2021 Time: 19:42 Bed 6 Private MD: ED Physician Dakotah Reid HPI: 11/12 20:00 This 41 yrs old Black Female presents to ER via EMS with complaints of Fever, Vomiting. cp 20:00 The patient reports fever, that was measured at 101 degrees Fahrenheit. Onset: The cp symptoms/episode began/occurred today. Associated signs and symptoms: Pertinent positives: abdominal pain, nausea, vomiting, Pertinent negatives: altered mental status, cough, shortness of breath. Severity of symptoms: in the emergency department the symptoms are unchanged despite home interventions. 20:05 Patient reports having left side nephrostomy tube placed at [facility] approximately 1-2 months ago. 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 - bb Historical: - Allergies: 19:52 chloradate; bb 19:52 Latex, Natural Rubber; bb 19:52 Morphine; bb 19:52 Vancomycin; bb - Home Meds: 19:52 albuterol sulfate Oral [Active]; amlodipine 10 mg tab 1 tab once daily [Active]; bb Benadryl 25 mg Oral cap [Active]; betamethasone valerate 0.1 % Topical crea [Active]; corcidin [Active]; docusate sodium 100 mg Oral cap 1 cap 2 times per day [Active]; iron sulfate 325mg PO [Active]; magnesium oxide 400 mg Oral tab 400 mg twice a day [Active]; metoprolol tartrate 25 mg Oral tab 0.5 tab 2 times per day [Active]; miralax PO [Active]; mometasone nasal 2 sprays once daily [Active]; mylanta [Active]; ondansetron HCl 8 mg Oral tab 1 tab 2 times per day [Active]; ondansetron HCl 4 mg Oral tab [Active]; pantoprazole 40 mg Oral TbEC 1 tab once daily [Active]; promethazine 25 mg Oral tab 1 tab every 6 hours [Active]; sertraline 100 mg Oral tab 1 tab once daily [Active]; Tylenol [Active]; Xarelto 20 mg Oral tab 1 tab once daily [Active]; xopenex inhaler [Active]; zolpidem 5 mg Oral tab [Active]; Zolpidem Tartrate Oral [Active]; - PMHx: 19:52 ADD/ADHD; Anemia; Asthma; DVT; Hypertension; Kidney stones; Osteomyelitis-L foot; bb osteomyolitis L foot; Sepsis; spina bifida; Upper extremity DVT- L arm; UTI; - PSHx: 19:52 Colostomy; urostomy; nephrostomy; bb - Immunization history:: Client reports having NOT received the Covid vaccine. - Social history:: Smoking status: Patient denies any tobacco usage or history of. ROS: 20:05 Eyes: Negative for injury, pain, redness, and discharge. cp 20:05 Constitutional: Positive for fever, Negative for body aches, chills, poor PO intake. 20:05 ENT: Negative for drainage from ear(s), ear pain, sore throat, difficulty swallowing, difficulty handling secretions. 20:05 Cardiovascular: Negative for chest pain, palpitations. 20:05 Respiratory: Negative for cough, shortness of breath, wheezing. 20:05 Abdomen/GI: Positive for abdominal pain, nausea and vomiting, Negative for diarrhea, constipation. 20:05 Neuro: Negative for altered mental status, headache. Exam: 20:10 Constitutional: The patient appears in no acute distress, alert, awake, cp non-diaphoretic, non-toxic, well developed, well nourished. 20:10 Head/Face: Normocephalic, atraumatic. cp 20:10 Eyes: Periorbital structures: appear normal, Conjunctiva: normal, no exudate, no injection, Sclera: no appreciated abnormality, Lids and lashes: appear normal, bilaterally. 20:10 ENT: External ear(s): are unremarkable, Nose: is normal, Mouth: Lips: moist, Oral mucosa: pink and intact, moist, Posterior pharynx: Airway: no evidence of obstruction, patent. 20:10 Neck: ROM/movement: is normal, is supple, without pain, no range of motions limitations, no meningismus. 20:10 Chest/axilla: Inspection: normal. 20:10 Cardiovascular: Rate: tachycardic, Rhythm: regular, Edema: is not appreciated, JVD: is not appreciated. 20:10 Respiratory: the patient does not display signs of respiratory distress, Respirations: normal, no use of accessory muscles, no retractions, labored breathing, is not present, Breath sounds: decreased breath sounds, that are mild, throughout, stridor, is not appreciated, wheezing: is not appreciated. 20:10 Abdomen/GI: Inspection: distension, that is moderate, Bowel sounds: active, all quadrants, Palpation: soft, in all quadrants, mild abdominal tenderness, in all quadrants. 20:10 Neuro: Orientation: to person, place \\T\\ time. Mentation: is normal. 20:10 Back: pain, that is moderate, of the left mid back, left mid back nephrostomy tube in cp place. 21:55 ECG was reviewed by the Attending Physician. Vital Signs: 19:47 BP 130 / 88; Pulse 139; Resp 18 S; Temp 100.2(O); Pulse Ox 97% on R/A; Weight 63.05 kg bb (R); Height 5 ft. 0 in. (152.40 cm) (R); Pain 7/10; 20:19 BP 115 / 75; Pulse 133; Resp 16; Pulse Ox 97% on R/A; Pain 8/10; st1 21:20 BP 150 / 94; Pulse 123; Resp 22; Pulse Ox 97% ; sf1 22:30 BP 145 / 75; Pulse 120; Resp 18; Pulse Ox 97% on R/A; st1 23:27 BP 117 / 85; Pulse 134; Resp 18; Pulse Ox 96% on R/A; st1 11/13 01:45 BP 117 / 80; Pulse 122; Resp 16; Pulse Ox 100% on R/A; st1 11/12 19:47 Body Mass Index 27.15 (63.05 kg, 152.40 cm) bb MDM: 11/12 19:51 Patient medically screened. 22:30 Data reviewed: vital signs, nurses notes, lab test result(s), EKG, radiologic studies, cp CT scan. 22:30 Test interpretation: by ED physician or midlevel provider: ECG. 22:30 Counseling: I had a detailed discussion with the patient and/or guardian regarding: the cp historical points, exam findings, and any diagnostic results supporting the discharge/admit diagnosis, lab results, radiology results, the need to transfer to another facility, for higher level of care. 22:30 Response to treatment: the patient's symptoms have mildly improved after treatment. cp 23:30 Physician consultation: was contacted at 23:20, regarding regarding transfer, to [facility]. cp accepting physician will be DR Peres. 11/12 19:47 Order name: Basic Metabolic Panel; Complete Time: 21:42 cp 11/12 21:42 Interpretation: Normal except: CL 108; CO2 20; BUN 23; CRE 1.46; GFR 48. cp 11/12 19:47 Order name: CBC with Diff; Complete Time: 21:42 cp 11/12 21:43 Interpretation: Normal except: WBC 19.70; HGB 9.2; HCT 30.1; MCV 70.2; MCH 21.6; MCHC cp 30.7; RDW 21.1; BETO% 78.7; LYM% 9.1; NEUT A 15.5; MNA 2.3; MPV 6.5; PLT 565. 11/12 19:47 Order name: LFT's; Complete Time: 21:42 cp 11/12 22:39 Interpretation: Normal except: AST 6; TP 10.0; ALB 2.8; GLOB 7.2; A/G 0.4. cp 11/12 19:47 Order name: Magnesium; Complete Time: 21:42 cp 11/12 19:47 Order name: NT PRO-BNP; Complete Time: 21:42 cp 11/12 19:47 Order name: PT-INR; Complete Time: 20:58 cp 11/12 19:47 Order name: Troponin HS; Complete Time: 21:42 cp 11/12 19:47 Order name: Blood Culture Adult (2) cp 11/12 19:47 Order name: Procalcitonin; Complete Time: 21:42 cp 11/12 21:42 Interpretation: Abnormal: Procalcitonin 51.66. cp 11/12 19:47 Order name: Lactate; Complete Time: 20:58 cp 11/12 19:49 Order name: Urine Microscopic Only cp 11/12 19:49 Order name: Urine Culture cp 11/12 19:50 Order name: Urine Microscopic Only; Complete Time: 20:58 EDMS 11/12 22:23 Interpretation: Normal except: UWBC TNTC; URBC TNTC; UBACT LOADED; SQEPI 10-20; MUCUS cp 4+; AMORPH 3+. 03/16 19:50 Order name: Urine Culture EDMS 11/12 19:47 Order name: XRAY Chest (1 view); Complete Time: 20:58 cp 11/12 19:47 Order name: EKG; Complete Time: 19:48 cp 11/12 19:47 Order name: Cardiac monitoring; Complete Time: 20:05 cp 11/12 19:47 Order name: EKG - Nurse/Tech; Complete Time: 21:54 cp 11/12 19:47 Order name: IV Saline Lock; Complete Time: 20:05 cp 11/12 19:58 Order name: Urine Dipstick-Ancillary; Complete Time: 20:19 EDMS 11/12 20:06 Order name: COVID-19 SARS RT PCR (Document "Date of Onset" if Symptomatic); Complete sf1 Time: 21:42 11/12 21:01 Order name: CT Chest Abdomen Pelvis W/O Contrast; Complete Time: 21:58 cp 11/12 21:21 Order name: Manual Differential; Complete Time: 21:42 EDMS 11/12 22:38 Interpretation: Reviewed. cp 11/12 19:47 Order name: Labs collected and sent; Complete Time: 20:05 cp 11/12 19:47 Order name: O2 Per Protocol; Complete Time: 20:05 cp 11/12 19:47 Order name: O2 Sat Monitoring; Complete Time: 20:05 cp EC:55 Rate is 124 beats/min. Rhythm is regular. [place] interval is normal. QRS interval is cp normal. QT interval is normal. T waves are Inverted in lead aVR. Interpreted by me. Reviewed by me. Administered Medications: 20:16 Drug: NS 0.9% (30 ml/kg) 30 ml/kg Route: IV; Rate: bolus; Site: right antecubital; st1 22:30 Follow up: IV Intake: 1891.5ml st1 20:17 Drug: Cefepime 1 grams Route: IVPB; Rate: 200 ml/hr; Infused Over: 30 mins; Site: right st1 antecubital; 21:26 Follow up: Response: No adverse reaction; IV Intake: 100ml st1 21:16 Drug: Dilaudid (HYDROmorphone) 1 mg Route: IVP; Site: right antecubital; sf1 23:17 Follow up: Response: No adverse reaction; Pain is decreased st1 21:16 Drug: Zofran (Ondansetron) 4 mg Route: IVP; Site: right antecubital; sf1 23:17 Follow up: Response: No adverse reaction; Nausea is decreased st1 23:02 Drug: Dilaudid (HYDROmorphone) 1 mg Route: IVP; Site: right antecubital; st1 11/13 02:00 Follow up: Response: No adverse reaction; Pain is decreased st1 11/12 23:02 Drug: Cefepime 1 grams Route: IVPB; Rate: 200 ml/hr; Infused Over: 30 mins; Site: right st1 antecubital; 23:34 Follow up: Response: No adverse reaction; IV Intake: 100ml st1 11/13 02:00 Follow up: Response: No adverse reaction; IV Intake: 100ml st1 11/12 23:03 Drug: Zofran (Ondansetron) 4 mg Route: IVP; Site: right antecubital; st1 11/13 02:00 Follow up: Response: No adverse reaction st1 Disposition: 03:34 Co-signature as Attending Physician, Dakotah Reid MD I agree with the assessment and kdr plan of care. Disposition Summary: 11/12/21 22:20 Transfer Ordered Transfer Location: [facility] cp Reason: Higher level of care cp Condition: Fair cp Problem: new cp Symptoms: have improved cp Accepting Physician: DR Peres(11/13/21 02:22) st1 Diagnosis - Sepsis, unspecified organism cp - Calculus of kidney - left cp Forms: - Medication Reconciliation Form cp - SBAR form cp Signatures: Dispatcher [employer]Ho Dakotah Salgado MD MD kdr Carmen Kruse RN RN bb Enrike Miller, BUSINESS DEVELOPMENT INTERN-C BUSINESS DEVELOPMENT INTERN-Cla1 Burton Mcqueen PA PA cp Thais Sofia RN RN st1 Simona King RN RN sf1 Corrections: (The following items were deleted from the chart) 11/12 21:43 20:58 Normal except: WBC 19.70; HGB 9.2; HCT 30.1; MCV 70.2; MCH 21.6; MCHC 30.7; RDW cp 21.1; BETO% 78.7; LYM% 9.1; NEUT A 15.5; MNA 2.3. cp 22:56 22:20 Doctor cp cp 11/13 02:11/12 22:30 Constitutional: Positive for fever, Negative for body aches, chills, poor cp PO intake, cp 11/13 02:11/12 22:30 Eyes: Negative for injury, pain, redness, and discharge, cp cp 11/13 02:11/12 22:30 ENT: Negative for drainage from ear(s), ear pain, sore throat, difficulty cp swallowing, difficulty handling secretions, cp 11/13 02:11/12 22:30 Cardiovascular: Negative for chest pain, palpitations, cp cp 11/13 02:11/12 22:30 Respiratory: Negative for cough, shortness of breath, wheezing, cp cp 11/13 02:11/12 22:30 Abdomen/GI: Positive for abdominal pain, nausea and vomiting, Negative for cp diarrhea, constipation, cp 11/13 01:11/12 22:30 Neuro: Negative for altered mental status, headache, cp cp 11/13 02:11/12 22:30 All other systems are negative, cp cp 11/13 02:22 11/12 22:56 DR Peres cp st1
--- NOTE | 2021-11-12 22:20 | ER ---
Nurse's Notes [facility] Name: Leila Aquino Age: 41 yrs Sex: Female : 1980 Arrival Date: 11/12/2021 Time: 19:42 Bed 6 Private MD: Diagnosis: Sepsis, unspecified organism;Calculus of kidney-left Presentation: 11/12 19:47 Chief complaint: EMS states: they were toned out for report of pt with fever, vomiting, bb abdominal pain x 2 days. Coronavirus screen: fever, Client presents with at least one sign or symptom that may indicate coronavirus-19. Standard/surgical mask placed on the client. Ebola Screen: No symptoms or risks identified at this time. Initial Sepsis Screen: Does the patient meet any 2 criteria? Temp <36.0*C (96.8*F)) or > 38.3*C (100.9*F). HR > 90 bpm. Yes Does the patient have a suspected source of infection? Yes: Dysuria/Frequency/Urgency/UTI. Risk Assessment: Do you want to hurt yourself or someone else? Patient reports no desire to harm self or others. Onset of symptoms was November 10, 2021. 19:47 Method Of Arrival: EMS: [facility] bb 19:47 Acuity: PAYTON 2 bb Triage Assessment: 20:30 General: Appears in no apparent distress. uncomfortable, obese, well groomed, Behavior st1 is calm, cooperative. 23:49 General: Appears. 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 - bb Historical: - Allergies: 19:52 chloradate; bb 19:52 Latex, Natural Rubber; bb 19:52 Morphine; bb 19:52 Vancomycin; bb - Home Meds: 19:52 albuterol sulfate Oral [Active]; amlodipine 10 mg tab 1 tab once daily [Active]; bb Benadryl 25 mg Oral cap [Active]; betamethasone valerate 0.1 % Topical crea [Active]; corcidin [Active]; docusate sodium 100 mg Oral cap 1 cap 2 times per day [Active]; iron sulfate 325mg PO [Active]; magnesium oxide 400 mg Oral tab 400 mg twice a day [Active]; metoprolol tartrate 25 mg Oral tab 0.5 tab 2 times per day [Active]; miralax PO [Active]; mometasone nasal 2 sprays once daily [Active]; mylanta [Active]; ondansetron HCl 8 mg Oral tab 1 tab 2 times per day [Active]; ondansetron HCl 4 mg Oral tab [Active]; pantoprazole 40 mg Oral TbEC 1 tab once daily [Active]; promethazine 25 mg Oral tab 1 tab every 6 hours [Active]; sertraline 100 mg Oral tab 1 tab once daily [Active]; Tylenol [Active]; Xarelto 20 mg Oral tab 1 tab once daily [Active]; xopenex inhaler [Active]; zolpidem 5 mg Oral tab [Active]; Zolpidem Tartrate Oral [Active]; - PMHx: 19:52 ADD/ADHD; Anemia; Asthma; DVT; Hypertension; Kidney stones; Osteomyelitis-L foot; bb osteomyolitis L foot; Sepsis; spina bifida; Upper extremity DVT- L arm; UTI; - PSHx: 19:52 Colostomy; urostomy; nephrostomy; bb - Immunization history:: Client reports having NOT received the Covid vaccine. - Social history:: Smoking status: Patient denies any tobacco usage or history of. Screenin:48 Abuse screen: Denies threats or abuse. Nutritional screening: No deficits noted. st1 Tuberculosis screening: No symptoms or risk factors identified. Fall Risk None identified. No fall in past 12 months (0 pts). Secondary diagnosis (15 points) impaired mobility, IV access (20 points). Ambulatory Aid- Crutches/Cane/Walker (15 pts). Gait- Impaired (20 pts.). Mental Status- Oriented to own ability (0 pts). Total Toribio Fall Scale indicates High Risk Score (45 or more points). Assessment: 20:17 Pain: Complains of pain in upper back and body Pain does not radiate. Pain currently is st1 8 out of 10 on a pain scale. Quality of pain is described as aching, Pain began gradually. Neuro: No deficits noted. Cardiovascular: No deficits noted. Respiratory: No deficits noted. GI: Reports nausea. : Brown in place to gravity drainage the patients urine is malodorous and dark yellow in color. Musculoskeletal: Reports Spina bifida. Vital Signs: 19:47 BP 130 / 88; Pulse 139; Resp 18 S; Temp 100.2(O); Pulse Ox 97% on R/A; Weight 63.05 kg bb (R); Height 5 ft. 0 in. (152.40 cm) (R); Pain 7/10; 20:19 BP 115 / 75; Pulse 133; Resp 16; Pulse Ox 97% on R/A; Pain 8/10; st1 21:20 BP 150 / 94; Pulse 123; Resp 22; Pulse Ox 97% ; sf1 22:30 BP 145 / 75; Pulse 120; Resp 18; Pulse Ox 97% on R/A; st1 23:27 BP 117 / 85; Pulse 134; Resp 18; Pulse Ox 96% on R/A; st1 11/13 01:45 BP 117 / 80; Pulse 122; Resp 16; Pulse Ox 100% on R/A; st1 11/12 19:47 Body Mass Index 27.15 (63.05 kg, 152.40 cm) bb ED Course: 11/12 19:42 Patient arrived in ED. wm 19:46 Burton Mcqueen PA is PHCP. cp 19:46 Dakotah Reid MD is Attending Physician. cp 19:47 Arm band placed on Patient placed in an exam room, on a stretcher. bb 19:49 Thais Sofia, RAJNI is Primary Nurse. st1 19:52 Triage completed. bb 20:04 Urine Culture Sent. sf1 20:04 Urine Microscopic Only Sent. sf1 20:04 Urine Culture Sent. sf1 20:05 Urine Microscopic Only Sent. sf1 20:05 Lactate Sent. sf1 20:05 Procalcitonin Sent. sf1 20:05 Blood Culture Adult (2) Sent. sf1 20:05 Basic Metabolic Panel Sent. sf1 20:05 CBC with Diff Sent. sf1 20:05 LFT's Sent. sf1 20:05 Magnesium Sent. sf1 20:05 NT PRO-BNP Sent. sf1 20:05 PT-INR Sent. sf1 20:05 Troponin HS Sent. sf1 20:08 XRAY Chest (1 view) In Process Unspecified. EDMS 20:11 COVID-19 SARS RT PCR (Document "Date of Onset" if Symptomatic) Sent. sf1 20:17 Troponin HS Sent. st1 20:17 NT PRO-BNP Sent. st1 20:17 Magnesium Sent. st1 20:17 LFT's Sent. st1 20:17 CBC with Diff Sent. st1 20:17 Basic Metabolic Panel Sent. st1 20:17 No provider procedures requiring assistance completed. st1 21:05 COVID-19 SARS RT PCR (Document "Date of Onset" if Symptomatic) Sent. sf1 21:23 CT Chest Abdomen Pelvis W/O Contrast In Process Unspecified. EDMS 22:14 initiated a transfer with Kalpana from [facility] Transfer [facility]. mw2 23:35 administrative approval given by Obdulia Lou/ [address] 1005/Dr. Peres accepted the patient in transfer/report to be called to [phone]. 23:47 the patient has a urostomy tube right side. st1 23:48 Patient has correct armband on for positive identification. Fall risk band placed. st1 Placed in gown. Bed in low position. Call light in reach. Side rails up X 1. program supervisor on. Pulse ox on. NIBP on. 11/13 01:45 Patient transferred, IV remains in place. st1 Administered Medications: 11/12 20:16 Drug: NS 0.9% (30 ml/kg) 30 ml/kg Route: IV; Rate: bolus; Site: right antecubital; st1 22:30 Follow up: IV Intake: 1891.5ml st1 20:17 Drug: Cefepime 1 grams Route: IVPB; Rate: 200 ml/hr; Infused Over: 30 mins; Site: right st1 antecubital; 21:26 Follow up: Response: No adverse reaction; IV Intake: 100ml st1 21:16 Drug: Dilaudid (HYDROmorphone) 1 mg Route: IVP; Site: right antecubital; sf1 23:17 Follow up: Response: No adverse reaction; Pain is decreased st1 21:16 Drug: Zofran (Ondansetron) 4 mg Route: IVP; Site: right antecubital; sf1 23:17 Follow up: Response: No adverse reaction; Nausea is decreased st1 23:02 Drug: Dilaudid (HYDROmorphone) 1 mg Route: IVP; Site: right antecubital; st1 11/13 02:00 Follow up: Response: No adverse reaction; Pain is decreased st1 11/12 23:02 Drug: Cefepime 1 grams Route: IVPB; Rate: 200 ml/hr; Infused Over: 30 mins; Site: right st1 antecubital; 23:34 Follow up: Response: No adverse reaction; IV Intake: 100ml st1 11/13 02:00 Follow up: Response: No adverse reaction; IV Intake: 100ml st1 11/12 23:03 Drug: Zofran (Ondansetron) 4 mg Route: IVP; Site: right antecubital; st1 11/13 02:00 Follow up: Response: No adverse reaction st1 Intake: 11/12 21:26 IV: 100ml; Total: 100ml. st1 22:30 IV: 1892ml; Total: 1992ml. st1 23:34 IV: 100ml; Total: 2092ml. st1 11/13 02:00 IV: 100ml; Total: 2192ml. st1 Outcome: 11/12 22:20 ER care complete, transfer ordered by MD. voss 11/13 02:18 Transferred by ground EMS to [facility]. st1 Condition: good Instructed on the need for transfer, Demonstrated understanding of instructions. 02:22 Patient left the ED. st1 Signatures: Dispatcher [employer] Carmen Robles RN RN bb Burton Mcqueen PA PA cp [place], MyKena 2 Susi Hernandez Shellie, RN RN st1 Simona King RN RN sf1 Corrections: (The following items were deleted from the chart) 11/12 19:54 19:47 Acuity: PAYTON 3 bb bb
[2021-11-13 02:32] VITALS: TEMP 100.2
[2021-11-13 02:39] VITALS: BP 117/80; O2SAT 100
--- NOTE | 2021-11-17 08:33 | EKG ---
Test Date: 2021-11-12 Test Time: 21:47:18 Internet Designer: AYE MEASUREMENT RESULTS: Intervals: Rate: 124 TN: 152 QRSD: 74 QT: 306 QTc: 439 [place]: P: 47 TN: 152 QRS: 30 T: 36 INTERPRETIVE STATEMENTS: Sinus tachycardia Nonspecific T wave abnormality Abnormal ECG Compared to ECG 06/25/2021 14:11:49 No significant changes Electronically Signed On 11-17-21 08:24:09 CDT by Trent Sousa
== END 2021-11-13 02:22 | disposition short-term general hospital (02) ==
LOC: ER 19:42
DX: A41.9 Sepsis, unspecified organism (principal); N20.0 Calculus of kidney; Z87.442 Personal history of urinary calculi; Z93.6 Other artificial openings of urinary tract status; Z20.822 Contact with and (suspected) exposure to COVID-19; Z86.718 Personal history of other venous thrombosis and embolism; Z79.01 Long term (current) use of anticoagulants; I10 Essential (primary) hypertension; Z88.3 Allergy status to other anti-infective agents; Z88.5 Allergy status to narcotic agent; Z88.8 Allergy status to other drugs, medicaments and biological substances; Z91.040 Latex allergy status
CPT/HCPCS: 93005; 87040 ×2; 87088; 85025; 87086; 80048; 36415; 83735; 87205 ×2; 85610; 80076; 83605; 87077 ×3; 87186 ×3; 84484; 84145; 83880; 71250; 74176; 71045; 96375; 96374; 99285; U0003; J1170 ×2; J7030; J2405 ×2; J0692 ×2; 81003; 81015

== ENCOUNTER 2022-02-23 04:21 | Inpatient (IN) | payer OTHER ==
--- OUTSIDE RECORDS SUMMARY | 2022-02-23 04:30 | XMS REPORT | Continuity of Care Document ---
:1980 Author Organization [facility] t Address [address] [place] [address] Care Team Providers Name Role Phone Yelitza MASON Primary Care Physician CALE Attending Clinician Unavailable JAYLENE Attending Clinician Unavailable Yelitza MASON Attending Clinician Cale MASON Attending Clinician Aleida URBAN Attending Clinician Unavailable Nii FITZGERALD Attending Clinician Unavailable MAN Attending Clinician Unavailable HOLLY Attending Clinician [...] Attending Clinician Unavailable TERRY Attending Clinician Unavailable CALE Admitting Clinician Unavailable Cale MASON Admitting Clinician MAN Admitting Clinician Unavailable LORI Admitting Clinician Unavailable WAQAR LOMBARDI Admitting Clinician Unavailable MABEL VERMA Admitting Clinician Unavailable Payers Payer Name Policy Type Policy Number Effective Date Expiration Date Aron dodd MEDICARE PART A AND [id number] 2004 B 00:00:00 MEDICARE A B [id number] 2004 00:00:00 [facility]ICAID [facility] [id number] 2011 00:00:00 MEDICARE PART A \\T\\ [id number] 2004 B 00:00:00 [facility] [id number] 2021 00:00:00 Problems Condition Condition Condition Status Onset Resolution Last Treating Co mments Source Name Details Category Date Date Treatment Clinician Date Complex Complex Disease Active [facility] 4-13 Health coordinati coordinati 00:00: on on Sinus Sinus Disease Active Univers tachycardi tachycardi 3-20 it y of a a 00:00: [place] [facility] Pyelonephr Pyelonephr Disease Active U nivers itis itis 3-17 ity of 00:00: [place] [facility] Other Other Disease Active 2020-08 Univers constipati constipati 0-30 it y of on on 00:00: [place] [facility] Staghorn Staghorn Disease Active 2020-08 Unive rs renal renal 0-29 ity of calculus calculus 00:00: [place] [facility] Thrombocyt Thrombocyt Disease Active 2020-08 U nivers openia openia 0-28 ity of 00:00: [place] [facility] Pleural Pleural Disease Active 2020-08 Univers effusion effusion 0-28 ity of on left on left 00:00: [place] [facility] Microcytic Microcytic Disease Active 2020-08 U nivers anemia anemia 0-28 ity of 00:00: [place] [facility] Hypokalemi Hypokalemi Disease Active 2020-08 U nivers a a 0-28 ity of 00:00: [place] [facility] Other Other Disease Active 2020-08 Univers insomnia insomnia 0-28 ity of 00:00: [place] [facility] Obesity Obesity Disease Active 2020-08 Univers (BMI (BMI 0-27 ity of 30-39.9) 30-39.9) 00:00: [place] 00 [facility] Depression Depression Disease Active 2020-08 U nivers 0-01 ity of 00:00: [place] [facility] Ileostomy Ileostomy Disease Active Uni vers present present 05-20 ity of 00:00: [place] [facility] Colostomy Colostomy Disease Active Uni vers status status 05-20 ity of 00:00: [place] [facility] Chronic Chronic Disease Active Univers anticoagul anticoagul 9 it y of ation ation 00:00: [place] [facility] Functional Functional Disease Active U nivers quadripleg quadripleg 05-20 it y of ia ia 00:00: [place] [facility] Paraplegia Paraplegia Disease Active U T , , 05-21 Health unspecifie unspecifie 00:00: d d 00 Essential Essential Disease Active Uni vers (primary) (primary) 1-14 ity of hypertensi hypertensi [place] [facility] History of History of Disease Active 2017-[address] MDR MDR 0-27 [facility] Enterobact Enterobact 00:00: Me dical er cloacae er cloacae 00 Ce nter infection infection Right Right Disease Active 2017-08 Univers ureteral ureteral 0-13 ity of stone stone 00:00: [place] 00 [facility] Multiple Multiple Disease Active 2017-08 Unive rs renal renal 0-13 ity of calculi calculi 00:00: [place] 00 [facility] Urinary Urinary Disease Active 2017-[address] [facility] tract tract 0-13 [facility] obstructio obstructio 00:00: Me dical n due to n due to 00 Center kidney kidney stone stone 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 thoracolum [place] bar region bar region 00 Me dical with with Branch hydrocepha hydrocepha suyapa suyapa Acute Acute Disease Active 2017-08 Univers cystitis cystitis 0-12 ity of without without 00:00: [place] hematuria hematuria 00 Medi [place]acey Branch Hydronephr Hydronephr Disease Active 2017-[address] osis osis 0-12 [facility] 00:00: [place] [address] Center History of History of Problem Resolve [facility] anemia anemia d Physici ans History of History of Problem Resolve UT Anxiety Anxiety d Physici and and ans depression depression History of History of Problem Resolve UT asthma asthma d Physici ans History of History of Problem Resolve UT Bacterial Bacterial d Phys ici vaginosis vaginosis ans History of History of Problem Resolve UT deep deep d Physici venous venous ans thrombosis thrombosis Bleeding Bleeding Problem Active [facility] ans [facility] Hospital Problem Active UT discharge discharge Phys ici follow-up follow-up ans History of History of Problem Resolve UT History of History of d Ph ysici ileal ileal ans conduit conduit History of History of Problem Resolve UT hypertensi hypertensi d Ph ysici on on ans History of History of Problem Resolve UT kidney kidney d Physici stones stones ans History of History of Problem Resolve UT Preop Preop d Physici examinatio examinatio an s n n History of History of Problem Resolve UT pyelonephr pyelonephr d Ph ysici itis itis ans Nephrolith Nephrolith Problem Active U T iasis iasis Physici ans History of History of Problem Resolve UT Spina Spina d Physici bifida of bifida of ans lumbar lumbar spine spine History of History of Problem Resolve UT urinary urinary d Physici tract tract ans infection infection Irregular Irregular Problem Active UT bleeding bleeding Physic i ans Obstructio Obstructio Problem Active U T n of n of Physici nephrostom nephrostom an s y tube y tube Encounter Encounter Problem Active UT for for Physici postoperat postoperat an s [place] care [place] care Obstructio Obstructio Problem Active U T n of right n of right Ph ysici ureter ureter ans Pleural Pleural Problem Active UT effusion effusion Physic i ans Insomnia Insomnia Problem Active UT Physici ans Essential Essential Problem Active UT hypertensi hypertensi Ph ysici on, benign on, benign an s Recurrent Recurrent Problem Active UT UTI UTI Physici (urinary (urinary ans tract tract infection) infection) Anemia Anemia Problem Active UT Physici ans Pressure Pressure Problem Active UT injury of injury of Phys ici deep deep ans tissue of tissue of sacral sacral region region Sacral Sacral Problem Active UT decubitus decubitus Phys ici ulcer ulcer ans Dry skin Dry skin Problem Active UT dermatitis dermatitis Ph ysici ans SB (spina SB (spina Problem Active UT bifida) bifida) Physici ans Paraplegia Paraplegia Problem Active U T Physici ans Pelvic Pelvic Problem Active UT prolapse prolapse Physic i ans Right low Right low Problem Active UT back pain back pain Phys ici ans Encounter Encounter Problem Active UT for for Physici gynecologi gynecologi an s [place] examinatio examinatio n n Bladder Bladder Problem Active UT spasm spasm Physici ans History of History of Problem Resolve UT arthritis arthritis d Phys ici ans History of History of Problem Resolve UT Bowel Bowel d Physici trouble trouble ans History of History of Problem Resolve UT Chronic Chronic d Physici pain pain ans disorder disorder History of History of Problem Resolve UT mental mental d Physici disorder disorder ans History of History of Problem Resolve UT skin skin d Physici disorder disorder ans History of History of Problem Resolve UT Wheelchair Wheelchair d Ph ysici bound bound ans Katie Katie Problem Active UT UTI UTI Physici ans Female Female Problem Active UT bladder bladder Physici prolapse prolapse ans Visit for Visit for Problem Active UT screening screening Phys ici mammogram mammogram ans Dysuria Dysuria Problem Active UT Physici ans History of History of Problem Resolve UT sepsis sepsis d Physici ans Urinary Urinary Problem Active UT incontinen incontinen Ph ysici ce ce ans Ventral Ventral Problem Active UT hernia hernia Physici ans Allergies, Adverse Reactions, Alerts Allergy Allergy Status Severity Reaction(s) Onset Inactive Treating Comm ents Source Name Type Date Date Clinician Latex Propensi Active UT ty to 03-26 Health adverse 00:00: reaction 00 s Morphine Propensi Active Hallucinatio UT ty to ns 03-26 Health adverse 00:00: reaction 00 s Vancomyc Propensi Active Itching UT in ty to 03-26 Health adverse 00:00: reaction 00 s Morphine Propensi Active Hallucinatio 2017-08 Halluci na Univers ty to ns 0-12 tions ity of adverse 00:00: [place] reaction Medical s Branch Vancomyc Propensi Active Itching 2017-08 Unive rs in ty to 0-12 ity of Analogue adverse 00:00: [place] s reaction Medical s Branch LATEX DRUG Active Rash 2017-08 Univers INGREDI 0-12 ity of 00:00: Medical [place] MORPHINE DRUG Active Hallucinates 2017-08 Un leana INGREDI 0-12 ity of 00:00: [facility] VANCOMYC Drug Active Hives 2017-08 Univers IN Class 0-12 ity of ANALOGUE 00:00: [place] S 00 [facility] Latex Propensi Active Rash 2017-08 Univers ty to 0-12 ity of adverse 00:00: [place] reaction [address] [place] [address] LATEX Allergy Active 2017-[address] [facility] 0-12 [facility] 00:00: Medical 00 [place] MORPHINE Allergy Active Other 2017-[address] 0-12 [facility] 00:00: Medical 00 [place] VANCOMYC Allergy Active Itching 2017-[address] IN 0-12 [facility] ANALOGUE 00:00: Medical S [place] Morphine Allergy Active UT Derivati to drug Physici ves (finding ans ) Latex Allergy Active UT Gloves to drug Physici (finding ans ) vancomyc Allergy Active UT in to drug Physici (finding ans ) Family History Family Member Diagnosis Comments Start Date Stop Date Source Mother Family history of Urinary [facility] incontinence Mother Family history of diabetes [facility] mellitus Mother Family history of Fecal U T [facility]icians incontinence Sister Family history of diabetes [facility] mellitus Brother Family history of diabetes [facility] mellitus Social History Social Habit Start Date Stop Date Quantity Comments Source History of tobacco Cigarette Smoker [facility] use History [facility] Alcohol Std Drinks History SDMA [facility] Alcohol Binge History SDMA [facility] Alcohol Comment History SDOH Social [facility] Get Together History SDOH Social [facility] SDOH Social [facility] Membership History SDOH Social [facility] Meetings History SDOH Food [facility] Scarcity History SDMA [facility] Housing Places Lived Exposure to 2022-01-23 2022-02-02 Not sure [facility] SARS-CoV-2 (event) 00:00:00 23:46:[address] [facility] Alcohol intake 2021-12-05 2021-12-05 Lifetime [facility] 00:[facility]:00 00:00:00 non-drinker (finding) History [facility] 2021-12-04 2021-12-04 2 [facility] Transport Med 00:00:00 00:00:00 History SDOH 2021-12-04 2021-12-04 2 [facility] Transport Non-Med 00:00:00 00:00:00 History SDMA 2021-12-04 2021-12-04 3 [facility] Housing Unable to 00:00:00 00:00:00 Pay History [facility] 2021-12-04 2021-12-04 3 [facility] Housing Homeless 00:00:00 00:00:00 Last Year History SDOH 2021-11-23 2021-11-23 1 [facility] Alcohol Frequency 00:00:00 00:00:00 History SDOH Social 2021-11-23 2021-11-23 5 [facility] Phone 00:00:00 00:00:00 History SDOH Social 2021-11-23 2021-11-23 98 [facility] Living 00:00:00 00:00:00 History SDOH 2021-11-23 2021-11-23 0 [facility] Physical Activity 00:00:00 00:00:00 DPW History SDOH 2021-11-23 2021-11-23 0 [facility] Physical Activity 00:00:00 00:00:00 MPS History SDOH Stress 2021-11-23 2021-11-23 3 [facility] alth 00:00:00 00:00:00 History SDOH 2021-11-23 2021-11-23 4 [facility] Financial 00:00:00 00:00:00 History [facility] Food 2021-11-23 2021-11-23 2 [facility] Worry 00:00:00 00:00:00 Cigarette 2021-08-12 2021-08-12 [facility] pack-years 00:00:00 00:00:00 Tobacco use and 2021-06-25 2021-06-25 Never used Universit y of exposure 00:00:00 00:00:[address] [facility] Education 2021-06-25 2021-06-25 12 University of 00:00:00 00:00:[address] [facility] Sex Ass[birth year] At [birth year] Universit y of 00:00:00 00:00:[address] [facility] Smoking Status Start Date Stop Date Source Never smoker [facility] Medications Ordered Filled Start Stop Current Ordering Indication Dosage Frequency Signature Comments Components Source Medication Medication Date Date Medication? Clinician (SIG) Name Name Diphenhydra Yes 25mg Take 25 mg Univers mine HCl 25 6-07 by mouth ity of mg TbDL 21:29: daily. [address] rivaroxaban Yes 20mg Take 20 mg Univers (XARELTO) 6-07 by mouth ity of 20 mg 21:29: daily. [address] pumpkin Yes 300mg Take 300 Unive rs seed 6-07 mg by ity of extract-soy 21:29: [place] germ (AZO 21 needed for Medi lacey BLADDER Pain Branch CONTROL) (scale 300 mg Cap 1-3). alum-mag Yes 10mL Take 10 mL Uni vers hydroxide-s 6-07 by mouth. ity of imeth 21:29: [place] Medical mg/5 mL Branch suspension aspirin 325 Yes 325mg Take 325 U nivers mg tablet 6-07 mg by ity of 21:29: mouth. [place] [address] Medical Branch albuterol Yes 1{puff} Inhale 1 U nivers 90 6-07 Puff. ity of mcg/actuati 21:29: [place] on inhaler 21 Medical Branch Chlorphenir Yes Take by Un leana amine-Aceta 6-07 mouth. ity of minophen 21:29: [place] 2-325 mg 21 Medical Tab Branch lactose-red Yes 1{bottl Take 1 U nivers uced food 6-07 e} Bottle by ity o f (BOOST 21:29: mouth. [place] ORAL) 21 Medical Branch acetaminoph Yes 650mg Take 650 U nivers en 325 mg 6-07 mg by ity of tablet 21:29: mouth. [place] [address] Medical Branch polyethylen Yes 17g Take 17 g U nivers e glycol 6-07 by mouth. ity of 3350 17 21:29: [place] gram powder 21 Medical Branch HYDROcodone 2021- No 1{tbl} 1 tablet, Univers -acetaminop 6-07 06-07 Oral, ity of hen (NORCO 16:05: 16:55 ONCE, 1 [place] as 5) 5-325 mg 00 :00 dose, On Medi lacey tablet 1 Wed02/03/22 Branc h tablet at 1115, Routine HYDROcodone 2021-2021- No 1{tbl} 1 tablet, Univers -acetaminop 6-07 06-07 Oral, ity of hen (NORCO 16:05: 16:55 ONCE, 1 [place] as 5) 5-325 mg 00 :00 dose, On Medi lacey tablet 1 Wed02/03/22 Branc h tablet at 1115, Routine sennosides 2022-0 Yes 8.6mg 8.6 mg, Uni vers (SENOKOT) 6- Oral, ity of tablet 8.6 14:00: DAILY, [place] mg 00 First dose Medical on [facility] 02/03/22 at 0900, Until Discontinu ed, Routine SERTraline 2022-0 Yes 100mg 100 mg, Uni vers (ZOLOFT) 6- Oral, QAM, ity o f tablet 100 14:00: First dose [place] mg 00 on [facility] 02/03/22 at Branch 0900, Until Discontinu ed, Routine polyethylen 2022-0 Yes 17g 17 g, Unive rs e glycol 6 Oral, ity of 3350 powder 14:00: DAILY, [place] 17 g 00 First dose Medical on [facility] 02/03/22 at 0900, Until Discontinu ed, Routine amLODIPine 2022-0 Yes 5mg 5 mg, Univer s (NORVASC) 6 Oral, ity of tablet 5 mg 14:00: DAILY, [place] 00 First dose Medical on [facility] 02/03/22 at 0900, Until Discontinu ed, Routine sennosides 2022-0 Yes 8.6mg 8.6 mg, Uni vers (SENOKOT) - Oral, ity of tablet 8.6 14:00: DAILY, [place] mg 00 First dose Medical on [facility] 02/03/22 at 0900, Until Discontinu ed, Routine SERTraline 2022-0 Yes 100mg 100 mg, Uni vers (ZOLOFT) 6- Oral, QAM, ity o f tablet 100 14:00: First dose [place] mg 00 on [facility] 02/03/22 at Branch 0900, Until Discontinu ed, Routine polyethylen 2022-0 Yes 17g 17 g, Unive rs e glycol 6- Oral, ity of 3350 powder 14:00: DAILY, [place] 17 g 00 First dose Medical on [facility] 02/03/22 at 0900, Until Discontinu ed, Routine amLODIPine 2022-0 Yes 5mg 5 mg, Univer s (NORVASC) 6- Oral, ity of tablet 5 mg 14:00: DAILY, [place] 00 First dose Medical on [facility] 02/03/22 at 0900, Until Discontinu ed, Routine Diphenhydra Yes 25mg Take 25 mg Univers mine HCl 25 6-07 by mouth ity of mg TbDL 07:26: daily. [address] rivaroxaban Yes 20mg Take 20 mg Univers (XARELTO) 6-07 by mouth ity of 20 mg 07:26: daily. [place] tablet Medical Branch pumpkin Yes 300mg Take 300 Unive rs seed 6-07 mg by ity of extract-soy 07:26: [place] as [place] germ (AZO 47 needed for Medi lacey BLADDER Pain Branch CONTROL) (scale 300 mg Cap 1-3). alum-mag Yes 10mL Take 10 mL Uni vers hydroxide-s 6-07 by mouth. ity of imeth 07:26: [place] 200-200-20 Medical mg/5 mL Branch suspension aspirin 325 Yes 325mg Take 325 U nivers mg tablet 6-07 mg by ity of 07:26: mouth. [place] [address] Medical [place] albuterol Yes 1{puff} Inhale 1 U nivers 90 6-07 Puff. ity of mcg/actuati 07:26: [place] on inhaler Medical Branch Chlorphenir Yes Take by Un leana amine-Aceta 6-07 mouth. ity of minophen 07:26: [place] 2-[address] [place] [address] Tab Branch lactose-red Yes 1{bottl Take 1 U nivers uced food 6-07 e} Bottle by ity o f (BOOST 07:26: mouth. [place] ORAL) Medical [place] acetaminoph Yes 650mg Take 650 U nivers en 325 mg 6-07 mg by ity of tablet 07:26: mouth. [place] [address] Medical [place] polyethylen Yes 17g Take 17 g U nivers e glycol 6-07 by mouth. ity of 3350 17 07:26: [place] gram powder [address] [place] [address] acetaminoph Yes 650mg 650 mg, Un leana en 6-07 Oral, Q6H, ity of (TYLENOL) 05:00: [place] dose [place] tablet 650 00 on [facility] Medical mg 02/03/22 at Branch 0000, Until Discontinu ed, Routine acetaminoph 2022-0 Yes 650mg 650 mg, Un leana en 6-07 Oral, Q6H, ity of (TYLENOL) 05:00: First dose [place] tablet 650 00 on Tue Medical mg 02/03/22 at [place] 0000, Until Discontinu ed, Routine cefTRIAXone 2022-0 Yes 1000mg 1,000 mg, Univers (ROCEPHIN) 6-07 Intravenou ity of 1,000 mg in 01:00: s, Q24H [place] as NaCl 0.9% 00 ABX, First Medi lacey (NS) 50 mL dose on [place] MINI-BAG [facility] 02/02/22 at 1999, Until Discontinu ed, Administer over 30 Minutes, 50 mL
Reas on for Anti-Infec tive: Empiric Therapy for Suspected Infection< br>Empiric Therapy Site: Urine
D uration of therapy: 72 hours cyclobenzap 2022-0 Yes 5mg 5 mg, Unive rs rine 6-07 Oral, TID, ity of (FLEXERIL) 01:00: First dose [place] tablet 5 mg 00 on [facility] Medica l 02/02/22 at Ot[place] 1999, Until Discontinu ed, Routine gabapentin 2022-0 Yes 300mg 300 mg, Uni vers (NEURONTIN) 6-07 Oral, TID, it y of capsule 300 01:00: First dose [place] mg 00 on [facility] 02/02/22 at [place] 1999, Until Discontinu ed, Routine pantoprazol 2022-0 Yes 40mg 40 mg, Univ ers e 6- Oral, BID, ity of (PROTONIX) 01:00: First dose [place] EC tablet 00 on [facility] Medical 40 mg 02/02/22 at [place] 1999, Until Discontinu ed, Routine metoprolol 2022-0 Yes 12.5mg 12.5 mg, U nivers tartrate 6-07 Oral, BID, ity o f (LOPRESSOR) 01:00: First dose [place] tablet 12.5 00 on [facility] Medica l mg 02/02/22 at [place] 1999, Until Discontinu ed, Routine docusate 2022-0 Yes 100mg 100 mg, Unive rs (COLACE) 6-07 Oral, BID, ity o f capsule 100 01:00: First dose [place] mg 00 on [facility] 02/02/22 at [place] 1999, Until Discontinu ed, Routine cefTRIAXone 2021-0 Yes 1000mg 1,000 mg, Univers (ROCEPHIN) 02-03 Intravenou ity of 1,000 mg in 01:00: s, Q24H [place] as NaCl 0.9% 00 ABX, First Medi lacey (NS) 50 mL dose on [place] MINI-BAG [facility] 02/02/22 at 1999, Until Discontinu ed, Administer over 30 Minutes, 50 mL
Reas on for Anti-Infec tive: Empiric Therapy for Suspected Infection< br>Empiric Therapy Site: Urine
D uration of therapy: 72 hours cyclobenzap 2021-0 Yes 5mg 5 mg, Unive rs rine 02-03 Oral, TID, ity of (FLEXERIL) 01:00: First dose [place] tablet 5 mg 00 on [facility] Medica l 02/02/22 at [place] 1999, Until Discontinu ed, Routine gabapentin 2021-0 Yes 300mg 300 mg, Uni vers (NEURONTIN) 02-03 Oral, TID, it y of capsule 300 01:00: First dose [place] mg 00 on [facility] 02/02/22 at [place] 1999, Until Discontinu ed, Routine pantoprazol 2021-0 Yes 40mg 40 mg, Univ ers e 02-03 Oral, BID, ity of (PROTONIX) 01:00: First dose [place] EC tablet 00 on [facility] Medical 40 mg 02/02/22 at [place] 1999, Until Discontinu ed, Routine metoprolol 2021-0 Yes 12.5mg 12.5 mg, U nivers tartrate 02-03 Oral, BID, ity o f (LOPRESSOR) 01:00: First dose [place] tablet 12.5 00 on [facility] Medica l mg 02/02/22 at [place] 1999, Until Discontinu ed, Routine docusate 2021-0 Yes 100mg 100 mg, Unive rs (COLACE) 02-03 Oral, BID, ity o f capsule 100 01:00: First dose [place] mg 00 on [facility] 02/02/22 at [place] 1999, Until Discontinu ed, Routine lidocaine 2021-0 2022- No 1{patch 1 Patch, Univers (LIDODERM) 02-03- } Topical, ity of 5 % (700 00:45: 17:33 Administer [place] mg/patch) 00 :00 over 12 Medical patch 1 Hours, Branch Patch ONCE, 1 dose, On Wed02/02/22 at 1945, Routine lidocaine 2021- No 1{patch 1 Patch, Univers (LIDODERM) 02-03 } Topical, ity of 5 % (700 00:45: 17:33 Administer [place] mg/patch) 00 :00 over 12 Medical patch 1 Hours, Branch Patch ONCE, 1 dose, On Wed02/02/22 at 1945, Routine lactated 2021-0 Yes 1000mL at 42 Univer s ringers IV 6-07 mL/hr, ity of infusion 00:30: 1,000 mL, [place] 1,000 mL 00 IV Medical Infusion, Branch CONTINUOUS , Starting on Wed02/02/22 at 1930, Until Discontinu ed, Routine, PACU lactated 2021-0 Yes 1000mL at 42 Univer s ringers IV 6-07 mL/hr, ity of infusion 00:30: 1,000 mL, [place] 1,000 mL 00 IV Medical Infusion, Branch CONTINUOUS , Starting on Wed02/02/22 at 1930, Until Discontinu ed, Routine, PACU HYDROcodone 2021- No 1{tbl} 1 tablet, Univers -acetaminop 02-03 Oral, ity of hen (NORCO 00:30: 00:26 ONCE, 1 [place] as 5) 5-325 mg 00 :00 dose, On Medi lacey tablet 1 Wed02/02/22 Branc h tablet at 1930, Routine, PACU HYDROcodone 2021- No 1{tbl} 1 tablet, Univers -acetaminop 02-03 Oral, ity of hen (NORCO 00:30: 00:26 ONCE, 1 [place] as 5) 5-325 mg 00 :00 dose, On Medi lacey tablet 1 Wed02/02/22 Branc h tablet at 193, Routine, PACU HYDROmorpho 2021- No .2mg 0.2 mg, Un leana ne 02-03- Slow IV ity of (DILAUDID) 00:17: 02:42 Push, [place] injection 49 :00 Q5MIN PRN, Medi lacey 0.2 mg 10 doses, Branch Starting on Wed02/02/22 at 1916, Until Wed02/02/22 at 2141, Routine, Pain (scale 7-10), PACU
Us e approved by (Faculty): PACU USE -ANESTHESI A SERVICE-HY DROMORPHON E INJECTIONS FENTanyl PF 2021- No 25ug 25 mcg, Un leana (SUBLIMAZE 02-03- Slow IV ity o f (PF)) 00:17: 00:42 [place], [place] injection 49 :00 Q5MIN PRN, Medi lacey 25 mcg 4 doses, Branch Starting on Wed02/02/22 at 1916, Until Wed02/02/22 at 1941, Routine, Pain (scale 4-6), PACU HYDROmorpho 2021- No .2mg 0.2 mg, Un leana ne 02-03- Slow IV ity of (DILAUDID) 00:17: 02:42 [place], [place] injection 49 :00 Q5MIN PRN, Medi lacey 0.2 mg 10 doses, Branch Starting on Wed02/02/22 at 1916, Until Wed02/02/22 at 2141, Routine, Pain (scale 7-10), PACU
Us e approved by (Faculty): PACU USE -ANESTHESI A SERVICE-HY DROMORPHON E INJECTIONS FENTanyl PF 2021- No 25ug 25 mcg, Un leana (SUBLIMAZE 02-03 06-07 Slow IV ity o f (PF)) 00:17: 00:42 [place], [place] injection 49 :00 Q5MIN PRN, Medi lacey 25 mcg 4 doses, Branch Starting on Wed02/02/22 at 1916, Until Wed02/02/22 at 1941, Routine, Pain (scale 4-6), PACU ketorolac 2021- Yes [id number] 10mg Take 1 Un leana 10 mg 6-07 tablet by ity of tablet 00:00: mouth [place] 00 every 6 Medical (six) Branch hours as needed for Pain (scale 7-10) (Alternate with ibuprofen if taking concurrent ly). sulfamethox Yes [id number] 1{tbl} Take 1 Univers azole-trime 6-07 tablet by ity of thoprim 00:00: mouth 2 [place] (BACTRIM 00 (two) Medical DS) 800-160 times Branch mg per daily. tablet cyclobenzap 2022-0 Yes [id number] 5mg Take 1 Univers rine 5 mg 6-07 tablet by ity o f tablet 00:00: mouth 3 [place] 00 (three) Medical times Branch daily. NaCl 0.9% 2022-0 Yes 1000mL at 100 Univ ers (NS) IV 6-07 mL/hr, IV ity of infusion 00:00: Infusion, [place] 1,000 mL 00 CONTINUOUS Medic al , Starting Branch on Wed02/02/22 at 1900, Until Discontinu ed, Routine ketorolac 2022-0 Yes [id number] 10mg Take 1 Un leana 10 mg 6-07 tablet by ity of tablet 00:00: mouth [place] 00 every 6 Medical (six) Branch hours as needed for Pain (scale 7-10) (Alternate with ibuprofen if taking concurrent ly). sulfamethox 2022-0 Yes [id number] 1{tbl} Take 1 [facility] azole-trime 6-07 tablet by ity of thoprim 00:00: mouth 2 [place] (BACTRIM 00 (two) Medical DS) 800-160 times Branch mg per daily. tablet cyclobenzap 2022-0 Yes [id number] 5mg Take 1 Univers rine 5 mg 6-07 tablet by ity o f tablet 00:00: mouth 3 [place] 00 (three) Medical times Branch daily. NaCl 0.9% 2022-0 Yes 1000mL at 100 Univ ers (NS) IV 6-07 mL/hr, IV ity of infusion 00:00: [place] 1,000 [place] 00 CONTINUOUS Medic al , Starting Branch on Wed02/02/22 at 1900, Until Discontinu ed, Routine sulfamethox 2022-0 2022- No [id number] 1{tbl} Take 1 [facility] azole-trime 6-07 06-07 tablet by it y of thoprim 00:00: 00:00 mouth 2 [place] (BACTRIM 00 :00 (two) Medical DS) 800-160 times Branch mg per daily for tablet 7 days. cyclobenzap 2022-0 2022- No [id number] 5mg Take 1 Univers rine 5 mg 6-07 06-07 tablet by ity of tablet 00:00: 00:00 mouth 3 [place] 00 :00 (three) Medical times Branch daily for 7 days. ketorolac 202-0 2021- No [id number] 10mg Take 1 U nivers 10 mg 02-03 tablet by ity of tablet 00:00: 00:00 mouth [place] 00 :00 every 6 Medical (six) Branch hours as needed for Pain (scale 7-10) (Alternate with ibuprofen if taking concurrent ly). sulfamethox 2021-0 2021- No [id number] 1{tbl} Take 1 [facility] azole-trime 02-0307 tablet by it y of thoprim 00:00: 00:00 mouth 2 [place] (BACTRIM 00 :00 (two) Medical DS) 800-160 times Branch mg per daily for tablet 7 days. cyclobenzap 2021-2021- No [id number] 5mg Take 1 Univers rine 5 mg 02-03 tablet by ity of tablet 00:00: 00:00 mouth 3 [place] 00 :00 (three) Medical times Branch daily for 7 days. ketorolac 2021-0 2021- No [id number] 10mg Take 1 U nivers 10 mg 02-03 tablet by ity of tablet 00:00: 00:00 mouth [place] 00 :00 every 6 Medical (six) Branch hours as needed for Pain (scale 7-10) (Alternate with ibuprofen if taking concurrent ly). ketorolac 2022-0 Yes 15mg 15 mg, Univer s (TORADOL) 6-06 Slow IV ity of injection 23:31: Push, [place] 15 mg 25 Q6HPRN, 4 Medical doses, Branch Starting on Wed02/02/22 at 1831, Until Discontinu ed, Routine, Pain (scale 7-10)
F aculty member approving Restricted medication : NABIL MADSEN ketorolac 2022-0 Yes 15mg 15 mg, Univer s (TORADOL) 6-06 Slow IV ity of injection 23:31: Push, [place] 15 mg 25 Q6HPRN, 4 Medical doses, Branch Starting on Wed02/02/22 at 1831, Until Discontinu ed, Routine, Pain (scale 7-10)
F aculty member approving Restricted medication : CALENABIL RAMON ondansetron 2022-0 Yes 4mg 4 mg, Slow Univers (ZOFRAN 6-06 IV Push, ity of (PF)) 23:30: Q4HPRN, [place] injection 4 00 Starting Medi [place] mg on [facility] 02/02/22 at 1830, Until Discontinu ed, Routine, Nausea and Vomiting (N/V) ondansetron 2-0 Yes 4mg 4 mg, Slow Univers (ZOFRAN 6-06 IV Push, ity of (PF)) 23:30: Q4HPRN, [place] injection 4 00 Starting Medi [place] mg on [facility] 02/02/22 at 1830, Until Discontinu ed, Routine, Nausea and Vomiting (N/V) zolpidem 2022-0 Yes 5mg 5 mg, Univers (AMBIEN) 6-06 Oral, ity of tablet 5 mg 23:29: QHSPRN, [place] as 52 Starting Medical on Wed [place] 02/02/22 at 1829, Until Discontinu ed, Routine, Insomnia zolpidem 2021-0 Yes 5mg 5 mg, Univers (AMBIEN) 6-06 Oral, ity of tablet 5 mg 23:29: QHSPRN, [place] 52 Starting Medical on [facility] 02/02/22 at 1829, Until Discontinu ed, Routine, Insomnia albuterol 2021-0 Yes 1{puff} 1 Puff, Un leana (VENTOLIN) 6-06 Inhalation ity of inhaler 1 23:28: , PRN, [place] Puff 14 Starting Medical on Wed [place] 02/02/22 at 1828, Until Discontinu ed, Routine, Wheezing, Shortness of Breath albuterol 2021-0 Yes 1{puff} 1 Puff, Un leana (VENTOLIN) 6-06 Inhalation ity of inhaler 1 23:28: , PRN, [place] Puff 14 Starting Medical on [facility] 02/02/22 at 1828, Until Discontinu ed, Routine, Wheezing, Shortness of Breath sulfamethox 2021-0 2021- Yes [id number] 1{tbl} Take 1 Univers azole-trime 01-2807 tablet by it y 00:00: 04:59 mouth 2 [place] (BACTRIM 00 :00 (two) Medical DS) 800-160 times Branch mg per daily for tablet 5 days. sulfamethox 2021- Yes [id number] 1{tbl} Take 1 [facility] azole-trime 6-09 04-07 tablet by it y of thoprim 00:00: 04:59 mouth 2 [place] (BACTRIM 00 :00 (two) Medical DS) 800-160 times Branch mg per daily for tablet 5 days. sulfamethox 2021- No [id number] 1{tbl} Take 1 [facility] azole-trime 6-09 04- tablet by it y of thoprim 00:00: 00:00 mouth 2 [place] (BACTRIM 00 :00 (two) Medical DS) 800-160 times Branch mg per daily for tablet 5 days. sulfamethox 2021- No [id number] 1{tbl} Take 1 Univers azole-trime 6-09 04- tablet by it y of thoprim 00:00: 00:00 mouth 2 [place] (BACTRIM 00 :00 (two) Medical DS) 800-160 times Branch mg per daily for tablet 5 days. rivaroxaban 0 Yes 20mg Take 20 mg Univers (XARELTO) 5-19 by mouth ity of 20 mg 09:45: daily. [facility] 43 Medical Branch pumpkin 0 Yes 300mg Take 300 Unive rs seed 5-19 mg by ity of extract-soy 09:45: [place] germ (AZO 43 needed for Medi lacey BLADDER Pain Branch CONTROL) (scale 300 mg Cap 1-3). aspirin 325 0 Yes 325mg Take 325 U nivers mg tablet 5-19 mg by ity of 09:45: mouth. [place] [address] Medical Branch rivaroxaban 0 Yes 20mg Take 20 mg Univers (XARELTO) 5-19 by mouth ity of 20 mg 09:45: daily. [facility] 43 Medical Branch pumpkin 0 Yes 300mg Take 300 Unive rs seed 5-19 mg by ity of extract-soy 09:45: [place] germ (AZO 43 needed for Medi lacey BLADDER Pain Branch CONTROL) (scale 300 mg Cap 1-3). aspirin 325 2021-0 Yes 325mg Take 325 U nivers mg tablet 5-19 mg by ity of 09:45: mouth. [place] [address] Medical Branch Zolpidem 5 2021-0 2021- No 5mg Place 5 mg Univers mg Subl 01-15 under the ity of 09:42: 00:00 tongue at [place] 07 :00 bedtime. Medical Branch aspirin 325 0 Yes 325mg QD Take 325 U T MG tablet 4-08 mg by Health 08:58: mouth 1 47 (one) time each day. aspirin 325 2021-0 Yes 325mg QD Take 325 U T MG tablet 4-08 mg by Health 08:58: mouth 1 47 (one) time each day. aspirin 325 2021-0 Yes 325mg QD Take 325 U T MG tablet 4-08 mg by Health 08:58: mouth 1 47 (one) time each day. amLODIPine 2021-0 Yes [id number] 5mg QD Take 1 U T (Norvasc) 5 4-08 tablet (5 Hea lth MG tablet 00:00: mg total) 00 by mouth 1 (one) time each day. metoprolol Yes [id number] 12.5mg Q.5D Take 0.5 UT tartrate 4-08 tablets Health (Lopressor) 00:00: (12.5 mg 25 MG 00 total) by tablet mouth 2 (two) times a day. promethazin Yes [id number] TAKE 1 UT e 4-08 TABLET BY Health (Phenergan) 00:00: MOUTH 12.5 MG 00 EVERY 6 tablet HOURS NEEDED FORNAUSEA AND VOMITING THAT IS UNRESPONSI VE TO ONDANSETRO N. sertraline Yes [id number] 100mg QD Take 1 UT (Zoloft) 4-08 tablet Health 100 MG 00:00: (100 mg tablet 00 total) by mouth 1 (one) time each day. zolpidem Yes [id number] Take 1 UT (Ambien) 5 4-08 pill Health MG tablet 00:00: nightly as 00 needed for sleep HYDROcodone 2021-0 Yes [id number] 1{tbl} Q6H Take 1 UT -acetaminop 4-08 tablet by Hea lth hen ([place]) 00:00: mouth 10-325 MG 00 every 6 tablet (six) hours if needed for severe pain. amLODIPine 0 Yes [id number] 5mg QD Take 1 U T (Norvasc) 5 4-08 tablet (5 Hea lth MG tablet 00:00: mg total) 00 by mouth 1 (one) time each day. metoprolol 2021-0 Yes [id number] 12.5mg Q.5D Take 0.5 UT tartrate 4-08 tablets Health (Lopressor) 00:00: (12.5 mg 25 MG 00 total) by tablet mouth 2 (two) times a day. promethazin 2021-0 Yes [id number] TAKE 1 UT e 4-08 TABLET BY Health (Phenergan) 00:00: MOUTH 12.5 MG 00 EVERY 6 tablet HOURS NEEDED FORNAUSEA AND VOMITING THAT IS UNRESPONSI VE TO ONDANSETRO N. sertraline 2021-0 Yes [id number] 100mg QD Take 1 UT (Zoloft) 4-08 tablet Health 100 MG 00:00: (100 mg tablet 00 total) by mouth 1 (one) time each day. zolpidem 2021-0 Yes [id number] Take 1 UT (Ambien) 5 4-08 pill Health MG tablet 00:00: nightly as 00 needed for sleep HYDROcodone 2021-0 Yes [id number] 1{tbl} Q6H Take 1 UT -acetaminop 4-08 tablet by Hea lth hen ([place]) 00:00: mouth 10-325 MG 00 every 6 tablet (six) hours if needed for severe pain. amLODIPine 2021-0 Yes [id number] 5mg QD Take 1 U T (Norvasc) 5 4-08 tablet (5 Hea lth MG tablet 00:00: mg total) 00 by mouth 1 (one) time each day. metoprolol 2021-0 Yes [id number] 12.5mg Q.5D Take 0.5 UT tartrate 4-08 tablets Health (Lopressor) 00:00: (12.5 mg 25 MG 00 total) by tablet mouth 2 (two) times a day. promethazin 2021-0 Yes [id number] TAKE 1 UT e 4-08 TABLET BY Health (Phenergan) 00:00: MOUTH 12.5 MG 00 EVERY 6 tablet HOURS NEEDED FORNAUSEA AND VOMITING THAT IS UNRESPONSI VE TO ONDANSETRO N. sertraline 2021-0 Yes [id number] 100mg QD Take 1 UT (Zoloft) 4-08 tablet Health 100 MG 00:00: (100 mg tablet 00 total) by mouth 1 (one) time each day. zolpidem 2022-0 Yes [id number] Take 1 UT (Ambien) 5 4-08 pill Health MG tablet 00:00: nightly as 00 needed for sleep HYDROcodone 2021-0 Yes [id number] 1{tbl} Q6H Take 1 UT -acetaminop 4-08 tablet by [facility] hen ([place]) 00:00: mouth 10-325 MG 00 every 6 tablet (six) hours if needed for severe pain. HYDROcodone 2021-0 Yes 1{tbl} Take 1 Un leana -acetaminop 4-08 tablet by ity of hen 10-325 00:00: mouth. [place] mg tablet 00 Medical Branch amLODIPine 2021-0 Yes 5mg Take 5 mg Un leana 5 mg tablet 4-08 by mouth. ity of 00:00: [place] 00 Medical Branch zolpidem 5 2021-0 Yes Take 1 Unive rs mg tablet 4-08 pill ity of 00:00: nightly as [place] 00 needed for Medical sleep Branch HYDROcodone 2021-0 Yes 1{tbl} Take 1 Un leana -acetaminop 4-08 tablet by ity of hen 10-325 00:00: mouth. [place] mg tablet 00 Medical Branch amLODIPine 2021-0 Yes 5mg Take 5 mg Un leana 5 mg tablet 4-08 by mouth. ity of 00:00: [place] 00 Medical Branch zolpidem 5 2021-0 Yes Take 1 Unive rs mg tablet 4-08 pill ity of 00:00: nightly as [place] 00 needed for Medical sleep Branch HYDROcodone 2021-0 Yes 1{tbl} Take 1 Un leana -acetaminop 4-08 tablet by ity of hen 10-325 00:00: mouth. [place] mg tablet 00 Medical Branch amLODIPine 2021-0 Yes 5mg Take 5 mg Un leana 5 mg tablet 4-08 by mouth. ity of 00:00: [place] 00 Medical Branch zolpidem 5 2021-0 Yes Take 1 Unive rs mg tablet 4-08 pill ity of 00:00: nightly as [place] 00 needed for Medical sleep Branch HYDROcodone 2021-0 Yes 1{tbl} Take 1 Un le[facility] -acetaminop 4-08 tablet by ity of hen 10-325 00:00: mouth. [place] mg tablet 00 Medical Branch amLODIPine Yes 5mg Take 5 mg Un leana 5 mg tablet 08 by mouth. ity of 00:00: [place] 00 Medical Branch zolpidem 5 Yes Take 1 Unive rs mg tablet -08 pill ity of 00:00: nightly as 00 needed for Medical sleep Branch pantoprazol 2022- Yes [id number] 40mg Q.5D Take 1 UT e 12-05- tablet (40 Health (ProtoNix) 00:00: 04:59 mg total) 40 MG EC 00 :00 by mouth 2 tablet (two) times a day. rivaroxaban 2022- Yes [id number] 20mg QD Take 1 UT (Xarelto) 12-05- tablet (20 Hea lth 20 MG 00:00: 04:59 mg total) tablet 00 :00 by mouth 1 (one) time each day. WITH DINNER AND WITH FOOD Sennosides 2022- Yes [id number] 1{dose} Q.5D Take 1 UT (Senna) 8.6 12-05- Dose by Heal th MG capsule 00:00: 04:59 mouth 2 00 :00 (two) times a day. pantoprazol 2022- Yes [id number] 40mg Q.5D Take 1 UT e 12-05- tablet (40 Health (ProtoNix) 00:00: 04:59 mg total) 40 MG EC 00 :00 by mouth 2 tablet (two) times a day. rivaroxaban 2022- Yes [id number] 20mg QD Take 1 UT (Xarelto) 12-05-09 tablet (20 Hea lth 20 MG 00:00: 04:59 mg total) tablet 00 :00 by mouth 1 (one) time each day. WITH DINNER AND WITH FOOD Sennosides 2022- Yes [id number] 1{dose} Q.5D Take 1 UT (Senna) 8.6 4-04 02-09 Dose by Heal th MG capsule 00:00: 04:59 mouth 2 00 :00 (two) times a day. pantoprazol 2022- Yes [id number] 40mg Q.5D Take 1 UT e 12-05- tablet (40 Health (ProtoNix) 00:00: 04:59 mg total) 40 MG EC 00 :00 by mouth 2 tablet (two) times a day. rivaroxaban 2022- Yes [id number] 20mg QD Take 1 UT (Xarelto) 12-05- tablet (20 Hea lth 20 MG 00:00: 04:59 mg total) tablet 00 :00 by mouth 1 (one) time each day. WITH DINNER AND WITH FOOD Sennosides 2022- Yes [id number] 1{dose} Q.5D Take 1 UT (Senna) 8.6 12-05 Dose by Heal th MG capsule 00:00: 04:59 mouth 2 00 :00 (two) times a day. docusate 2021- Yes [id number] 100mg Q.5D Take 1 UT sodium 12-05 capsule Health (Colace) 00:00: 04:59 (100 mg 100 MG 00 :00 total) by capsule mouth 2 (two) times a day. docusate 2021- Yes [id number] 100mg Q.5D Take 1 UT sodium 12-05- capsule Health (Colace) 00:00: 04:59 (100 mg 100 MG 00 :00 total) by capsule mouth 2 (two) times a day. docusate 2021- Yes [id number] 100mg Q.5D Take 1 UT sodium 12-05 capsule Health (Colace) 00:00: 04:59 (100 mg 100 MG 00 :00 total) by capsule mouth 2 (two) times a day. docusate 2021- No 100mg Take 100 Uni vers 100 mg 12-05 05-19 mg by ity of capsule 00:00: 00:00 mouth. [place] 00 :00 Medical Branch metoprolol 2021- No 12.5mg Take 12.5 Univers tartrate 25 12-05 05-19 mg by ity of mg tablet 00:00: 00:00 mouth. [place] 00 :00 Medical Branch pantoprazol 2021- No 40mg Take 40 mg Univers e 40 mg EC 12-05 05-19 by mouth. ity of tablet 00:00: 00:00 [place] 00 :00 Medical Branch Diphenhydra Yes 25mg Take 25 mg Univers mine HCl 25 3-20 by mouth ity of mg TbDL 15:09: daily. [place] [address] Medical Branch alum-mag Yes 10mL Take 10 mL Uni vers hydroxide-s 3-20 by mouth. ity of imeth 15:09: [place] Medical mg/5 mL Branch suspension albuterol Yes 1{puff} Inhale 1 U nivers 90 3-20 Puff. ity of mcg/actuati 15:09: [place] on inhaler 59 Medical Branch Chlorphenir Yes Take by Un leana amine-Aceta 3-20 mouth. ity of minophen 15:09: [place] 2-325 mg 59 Medical Tab Branch lactose-red Yes 1{bottl Take 1 U nivers uced food 3-20 e} Bottle by ity o f (BOOST 15:09: mouth. [place] ORAL) 59 Medical Branch acetaminoph Yes 650mg Take 650 U nivers en 325 mg 3-20 mg by ity of tablet 15:09: mouth. [place] 59 Medical Branch polyethylen Yes 17g Take 17 g U nivers e glycol 3-20 by mouth. ity of 3350 17 15:09: [place] gram powder 59 Medical Branch Diphenhydra Yes 25mg Take 25 mg Univers mine HCl 25 3-20 by mouth ity of mg TbDL 15:09: daily. [place] 59 Medical Branch alum-mag Yes 10mL Take 10 mL Uni vers hydroxide-s 3-20 by mouth. ity of imeth 15:09: [place] Medical mg/5 mL Branch suspension albuterol Yes 1{puff} Inhale 1 U nivers 90 3-20 Puff. ity of mcg/actuati 15:09: [place] on inhaler 59 Medical Branch Chlorphenir Yes Take by Un leana amine-Aceta 3-20 mouth. ity of minophen 15:09: [place] 2-325 mg 59 Medical Tab Branch lactose-red 2022-0 Yes 1{bottl Take 1 U nivers uced food 3-20 e} Bottle by ity o f (BOOST 15:09: mouth. [place] ORAL) 59 Medical Branch acetaminoph Yes 650mg Take 650 U nivers en 325 mg 3-20 mg by ity of tablet 15:09: mouth. [place] [address] Medical Branch polyethylen Yes 17g Take 17 g U nivers e glycol 3-20 by mouth. ity of 3350 17 15:09: [place] gram powder 59 Medical Branch sulfamethox Yes 1{tbl} Q.5D Take 1 UT azole-trime 3-20 tablet by a lt thoprim 00:00: mouth 2 (Bactrim 00 (two) DS) 800-160 times a MG tablet day. sulfamethox Yes 1{tbl} Q.5D Take 1 UT azole-trime 3-20 tablet by a lt thoprim 00:00: mouth 2 (Bactrim 00 (two) DS) 800-160 times a MG tablet day. sulfamethox Yes 1{tbl} Q.5D Take 1 UT azole-trime 3-20 tablet by a lth thoprim 00:00: mouth 2 (Bactrim 00 (two) DS) 800-160 times a MG tablet day. metoprolol Yes [id number] 12.5mg Take 0.5 Univers tartrate 25 3-20 tablets by it y of mg tablet 00:00: mouth 2 [place] 00 (two) Medical times Branch daily. pantoprazol 0 Yes [id number] 40mg Take 1 Univers e 40 mg EC 3-20 tablet by ity of tablet 00:00: mouth 2 [place] 00 (two) Medical times Branch daily. proMETHazin Yes [id number] 12.5mg Take 1 Univers e 12.5 mg 3-20 tablet by ity o f tablet 00:00: mouth [place] 00 every 6 Medical (six) Branch hours as needed for N/V unresponsi ve to Ondansetro n. sulfamethox Yes [id number] 1{tbl} Take 1 Univers azole-trime 3-20 tablet by ity of thoprim 00:00: mouth 2 [place] 800-160 mg 00 (two) Medical per tablet times Branch daily. metoprolol 2021-0 Yes [id number] 12.5mg Take 0.5 Univers tartrate 25 3-20 tablets by it y of mg tablet 00:00: mouth 2 (two) Medical times Branch daily. pantoprazol 2021-0 Yes [id number] 40mg Take 1 Univers e 40 mg EC 3-20 tablet by ity of tablet 00:00: mouth 2 (two) Medical times Branch daily. proMETHazin 2021-0 Yes [id number] 12.5mg Take 1 Univers e 12.5 mg 3-20 tablet by ity o f tablet 00:00: mouth [place] 00 every 6 Medical (six) Branch hours as needed for N/V unresponsi ve to Ondansetro n. sulfamethox 2021-0 Yes [id number] 1{tbl} Take 1 Univers azole-trime 3-20 tablet by ity of thoprim 00:00: mouth 2 [place] 800-160 mg 00 (two) Medical per tablet times Branch daily. metoprolol 2021-0 Yes [id number] 12.5mg Take 0.5 Univers tartrate 25 3-20 tablets by it y of mg tablet 00:00: mouth [place] (two) Medical times Branch daily. pantoprazol 2021-0 Yes [id number] 40mg Take 1 Univers e 40 mg EC 3-20 tablet by ity of tablet 00:00: mouth [place] (two) Medical times Branch daily. proMETHazin 2021-0 Yes [id number] 12.5mg Take 1 Univers e 12.5 mg 3-20 tablet by ity o f tablet 00:00: mouth [place] 00 every 6 Medical (six) Branch hours as needed for N/V unresponsi ve to Ondansetro n. metoprolol 2021-0 Yes [id number] 12.5mg Take 0.5 Univers tartrate 25 3-20 tablets by it y of mg tablet 00:00: mouth [place] (two) Medical times Branch daily. pantoprazol 2021-0 Yes [id number] 40mg Take 1 Univers e 40 mg EC 3-20 tablet by ity of tablet 00:00: mouth [place] (two) Medical times Branch daily. proMETHazin 2021-0 Yes [id number] 12.5mg Take 1 Univers e 12.5 mg 3-20 tablet by ity o f tablet 00:00: mouth [place] 00 every 6 Medical (six) Branch hours as needed for N/V unresponsi ve to Ondansetro n. sulfamethox 2021- No [id number] 1{tbl} Take 1 Univers azole-trime 3-20 06-07 tablet by it y of thoprim 00:00: 00:00 mouth 2 [place] 800-160 mg 00 :00 (two) Medical per tablet times Branch daily. sulfamethox 2021- No [id number] 1{tbl} Take 1 Univers azole-trime 3-20 06-07 tablet by it y of thoprim 00:00: 00:00 mouth 2 [place] 800-160 mg 00 :00 (two) Medical per tablet times Branch daily. amLODIPine 2021- No 1{tbl} Take 1 Un leana 5 mg tablet 3-14 05-19 tablet by it y of 00:00: 00:00 mouth [place] 00 :00 every Medical morning. Branch ondansetron 2020-08 Yes [id number] 4mg Take 1 Univers (ZOFRAN) 4 0-30 tablet by ity of mg tablet 00:00: mouth 00 every 8 Medical (eight) Branch hours as needed for Nausea and Vomiting (N/V). Sennosides 2020-08 Yes [id number] 8.6mg Take 8.6 Univers (SENNA) 8.6 0-30 mg by ity of mg Cap 00:00: mouth (two) Medical times Branch daily. docusate 2020-08 Yes [id number] 100mg Take 1 Un leana 100 mg 0-30 capsule by ity of capsule 00:00: mouth (two) Medical times Branch daily. ondansetron 2020-08 Yes [id number] 4mg Take 1 Univers (ZOFRAN) 4 0-30 tablet by ity of mg tablet 00:00: mouth [place] 00 every 8 Medical (eight) Branch hours as needed for Nausea and Vomiting (N/V). Sennosides 2020-08 Yes [id number] 8.6mg Take 8.6 Univers (SENNA) 8.6 0-30 mg by ity of mg Cap 00:00: mouth 2 (two) Medical times Branch daily. docusate 2020-08 Yes [id number] 100mg Take 1 Un leana 100 mg 0-30 capsule by ity of capsule 00:00: mouth (two) Medical times Branch daily. ondansetron 2020-08 Yes [id number] 4mg Take 1 Univers (ZOFRAN) 4 0-30 tablet by ity of mg tablet 00:00: mouth 00 every 8 Medical (eight) Branch hours as needed for Nausea and Vomiting (N/V). Sennosides 2020-08 Yes [id number] 8.6mg Take 8.6 Univers (SENNA) 8.6 0-30 mg by ity of mg Cap 00:00: mouth (two) Medical times Branch daily. docusate 2020-08 Yes [id number] 100mg Take 1 Un leana 100 mg 0-30 capsule by ity of capsule 00:00: mouth (two) Medical times Branch daily. ondansetron 2020-08 Yes [id number] 4mg Take 1 Univers (ZOFRAN) 4 0-30 tablet by ity of mg tablet 00:00: mouth 00 every 8 Medical (eight) Branch hours as needed for Nausea and Vomiting (N/V). Sennosides 2020-08 Yes [id number] 8.6mg Take 8.6 Univers (SENNA) 8.6 0-30 mg by ity of mg Cap 00:00: mouth (two) Medical times Branch daily. docusate 2020-08 Yes [id number] 100mg Take 1 Un le[facility] 100 mg 0-30 capsule by ity of capsule 00:00: mouth (two) Medical times Branch daily. SERTraline 2020-08 Yes 100mg Take 100 Un leana 100 mg 0-01 mg by ity of tablet 00:00: mouth 00 every Medical morning. Branch SERTraline 2020-08 Yes 100mg Take 100 Un leana 100 mg 0-01 mg by ity of tablet 00:00: mouth [place] 00 every Medical morning. Branch SERTraline 2020-08 Yes 100mg Take 100 Un leana 100 mg 0-01 mg by ity of tablet 00:00: mouth 00 every Medical morning. Branch SERTraline 2021-1 Yes 100mg Take 100 Un leana 100 mg 0-01 mg by ity of tablet 00:00: mouth [place] 00 every Medical morning. Branch Zolpidem Zolpidem Yes DORA take 1/2 a UT Tartrate 10 Tartrate 10 4-02 TORRE tablet [facility] MG Oral MG Oral 00:00: M.D. nightly as a ns Tablet Tablet 00 needed for insomnia Sertraline Sertraline Yes BANDAR TAKE 1 UT HCl - 100 HCl - 100 3-08 HERMILO TABLET BY [facility] MG Oral MG Oral 00:00: M.D. MOUTH ans Tablet Tablet 00 DAILY Ibuprofen Ibuprofen Yes DEONDRE RAMSAY Q8H TAKE 1 UT 400 MG Oral 400 MG Oral 2-05 M.D. TABLET [facility]ici Tablet Tablet 00:00: EVERY 8 ans 00 HOURS NEEDED. Pyridium Pyridium Yes KEVIN 1 Q0.3333D TAKE 1 UT 200 MG Oral 200 MG Oral 1-19 ERICSSON TABLET 3 Physici Tablet Tablet 00:00: M.D. TIMES ans 00 DAILY AFTER MEALS NEEDED Ondansetron Ondansetron 2019-08 Yes DORA 1 tablet UT HCl - 4 MG HCl - 4 MG 1-18 TORRE by mouth [facility] Oral Tablet Oral Tablet 00:00: M.D. every 6 ans 00 hours as needed for nausea. MiraLax 17 MiraLax 17 2020-0 Yes U T GM Oral GM Oral 8-26 [facility]ici Packet Packet 00:00: ans 00 Senna S Senna S 2019-0 Yes UT 8.6-50 MG 8.6-50 MG 8-26 Physi ci Oral Tablet Oral Tablet 00:00: ans 00 Dulcolax 5 Dulcolax 5 2019-0 Yes U T MG Oral MG Oral 8-26 Physici Tablet Tablet 00:00: ans Delayed Delayed 00 Release Release Mirena 20 Mirena 20 2019-0 Yes DORA USE UT MCG/24HR MCG/24HR 1-14 TORRE DIRECTED. [facility]ici Intrauterin Intrauterin 00:00: M.D. ans e e 00 Intrauterin Intrauterin e Device e Device Ondansetron Ondansetron Yes DORA 1 Q12H TAKE 1 UT HCl - 4 MG HCl - 4 MG 5-08 TORRE TABLET [facility] Oral Tablet Oral Tablet 00:00: M.D. Every ans 00 twelve hours amLODIPine amLODIPine Yes DORA TAKE 1 UT Besylate 5 Besylate 5 4-26 TORRE TABLET BY [facility] MG Oral MG Oral 00:00: M.D. MOUTH ans Tablet Tablet 00 DAILY amLODIPine 2017-08 Yes 5mg QD Take [address] [facility] [address] [facility] (NORVASC) 5 0-31 by mouth [facility] MG tablet 17:00: daily. Medica l 34 Center rivaroxaban 2017-08 Yes Take by [facility] (XARELTO) 0-31 [facility] 20 mg Tab 17:00: daily with Me dical tablet 34 dinner. Center albuterol 2017-08 Yes 1{puff} Inhale [address] HFA 0-31 puff by [facility] (VENTOLIN 17:00: mouth via Med ical HFA) 90 34 inhaler Center mcg/actuati every 6 on inhaler (six) hours as needed for Wheezing. acetaminoph 2017-08 Yes 650mg Take [address] en 0-31 mg by [facility] (TYLENOL) 17:00: mouth Medical 325 MG 34 every 6 Center tablet (six) hours as needed for Pain. polyethylen 2017-08 Yes 17g QD Take [address] e glycol 0-31 by mouth [facility] (GLYCOLAX) 17:00: daily. Medic al 17 gram 34 Center packet sertraline 2017-08 Yes 100mg QD Take [address] (ZOLOFT) 0-31 mg by [facility] 100 MG 17:00: mouth Medical tablet 34 nightly. [place] zolpidem 2017-08 Yes 5mg Take [address] [facility] (AMBIEN) 5 0-31 by mouth [facility] MG tablet 17:00: every Medical 34 night as Center needed for Insomnia. diphenhydrA 2017-08 Yes 25mg Take [address] [facility] MINE 0-31 by mouth [facility] (BENADRYL) 17:00: every 6 Medi lacey 25 mg 34 (six) Center capsule hours as needed for Itching or Allergies. aluminum-ma 2017-08 Yes 10mL Take [address] [facility] gnesium 0-31 mLs by [facility] hydroxide-s 17:00: mouth 4 Med ical imethicone 34 (four) Center (MAALOX times PLUS) daily suspension before 200-200-20 meals and mg/5 mL nightly. aspirin 325 2017-08 Yes 325mg QD Take [address] MG tablet 0-31 mg by [facility] 17:00: mouth Medical 34 daily. Center HYDROcodone 2017-08 Yes 1{tbl} Take [address] -acetaminop 0-31 tablet by Cristhian daren danilo (NORCO 17:00: mouth Medica l 10-325) 34 every 4 Center 10-325 mg (four) per tablet hours as needed for Pain. amLODIPine 2017-08 Yes 5mg QD Take [address] [facility] (NORVASC) 5 0-31 by mouth [facility] MG tablet 17:00: daily. Medica l 34 Center rivaroxaban 2017-08 Yes [facility] by [facility] (XARELTO[facility] 0-31 [facility] 20 mg Tab 17:00: daily with Me dical tablet 34 dinner. Center albuterol 2017-08 Yes 1{puff} Inhale [address] HFA 0-31 puff by [facility] (VENTOLIN 17:00: mouth via Med ical HFA) 90 34 inhaler Center mcg/actuati every 6 on inhaler (six) hours as needed for Wheezing. acetaminoph 2017-08 Yes 650mg Take [address] en 0-31 mg by [facility] (TYLENOL) 17:00: mouth Medical 325 MG 34 every 6 Center tablet (six) hours as needed for Pain. polyethylen 2017-08 Yes 17g QD Take [address] [facility] e glycol 0-31 by mouth [facility] (GLYCOLAX) 17:00: daily. Medic al 17 gram 34 Center packet sertraline 2017-08 Yes 100mg QD Take [address] [facility] (ZOLOFT) 0-31 mg by [facility] 100 MG 17:00: mouth Medical tablet 34 nightly. Center zolpidem 2017-08 Yes 5mg Take [address] [facility] (AMBIEN) 5 0-31 by mouth [facility] MG tablet 17:00: every Medical 34 night as Center needed for Insomnia. diphenhydrA 2017-08 Yes 25mg Take [address] [facility] MINE 0-31 by mouth [facility] (BENADRYL) 17:00: every 6 Medi lacey 25 mg 34 (six) Center capsule hours as needed for Itching or Allergies. aluminum-ma 2017-08 Yes 10mL Take [address] [facility] gnesium 0-31 mLs by [facility] hydroxide-s 17:00: mouth 4 Med ical imethicone 34 (four) Center (MAALOX times PLUS) daily suspension before 200-200-20 meals and mg/5 mL nightly. aspirin 325 2017-08 Yes 325mg QD Take [address] MG tablet 0-31 mg by [facility] 17:00: mouth Medical 34 daily. Center HYDROcodone 2017-08 Yes 1{tbl} Take [address] [facility] -acetaminop 0-31 tablet by Crist[facility] (NORCO 17:00: mouth Medica l 10-325) 34 every 4 Center 10-325 mg (four) per tablet hours as needed for Pain. amLODIPine 2017-08 Yes 5mg QD Take [address] [facility] [address] [facility] (NORVASC) 5 0-31 by mouth [facility] MG tablet 17:00: daily. Medica l 34 Center rivaroxaban 2017-08 Yes Take by [facility] (XARELTO) 0-31 [facility] 20 mg Tab 17:00: daily with Me dical tablet 34 dinner. Center albuterol 2017-08 Yes 1{puff} Inhale [address] HFA 0-31 puff by [facility] (VENTOLIN 17:00: mouth via Med ical HFA) 90 34 inhaler Center mcg/actuati every 6 on inhaler (six) hours as needed for Wheezing. acetaminoph 2017-08 Yes 650mg Take [address] en 0-31 mg by [facility] (TYLENOL) 17:00: mouth Medical 325 MG 34 every 6 Center tablet (six) hours as needed for Pain. polyethylen 2017-08 Yes 17g QD Take [address] e glycol 0-31 by mouth [facility] (GLYCOLAX) 17:00: daily. Medic al 17 gram 34 Center packet sertraline 2017-08 Yes 100mg QD Take [address] (ZOLOFT) 0-31 mg by [facility] 100 MG 17:00: mouth Medical tablet 34 nightly. Center zolpidem 2017-08 Yes 5mg Take [address] [facility] (AMBIEN) 5 0-31 by mouth [facility] MG tablet 17:00: every Medical 34 night as Center needed for Insomnia. diphenhydrA 2017-08 Yes 25mg Take [address] [facility] MINE 0-31 by mouth [facility] (BENADRYL) 17:00: every 6 Medi lacey 25 mg 34 (six) Center capsule hours as needed for Itching or Allergies. aluminum-ma 2017-08 Yes 10mL Take [address] [facility] gnesium 0-31 mLs by [facility] hydroxide-s 17:00: mouth 4 Med ical imethicone 34 (four) Center (MAALOX times PLUS) daily suspension before 200-200-20 meals and mg/5 mL nightly. aspirin 325 2017-08 Yes 325mg QD Take [address] MG tablet 0-31 mg by [facility] 17:00: mouth Medical 34 daily. Center HYDROcodone 2017-08 Yes 1{tbl} Take [address] -acetaminop 0-31 tablet by Crist[facility] (NORCO 17:00: mouth Medica l 10-325) 34 every 4 Center 10-325 mg (four) per tablet hours as needed for Pain. tamsulosin 2017-08 Yes .4mg QD Take [facility]31 capsule [facility] 0.4 mg Cap 00:00: (0.4 mg Medi lacey 24 hr 00 total) by Center capsule mouth daily. tamsulosin 2017-08 Yes .4mg QD Take [facility] ([facility]-31 capsule [facility] 0.4 mg Cap 00:00: (0.4 mg Medi lacey 24 hr 00 total) by Center capsule mouth daily. tamsulosin 2017-08 Yes .4mg QD Take [facility] ([facility] capsule [facility] 0.4 mg Cap 00:00: (0.4 mg Medi lacey 24 hr 00 total) by Center capsule mouth daily. ondansetron 2017-08 Yes 4mg Take [address] [facility] (ZOFRAN) 4 0-15 tablet (4 [facility] MG tablet 00:00: mg total) Med ical 00 by mouth 3 Center (three) times daily as needed for Nausea. ondansetron 2017-08 Yes 4mg Take [address] [facility] (ZOFRAN) 4 0-15 tablet (4 [facility] MG tablet 00:00: mg total) Med ical 00 by mouth 3 Center (three) times daily as needed for Nausea. ondansetron 2017-08 Yes 4mg Take [address] [facility] (ZOFRAN) 4 0-15 tablet (4 Luke s MG tablet 00:00: mg total) Med ical 00 by mouth 3 Center (three) times daily as needed for Nausea. levalbutero 2012-08 Yes EVERY [address] [facility] (XOPENEX 1-29 HOURS [facility] HFA) 45 00:00: NEEDED Medical mcg/actuati 00 Center on inhaler levalbutero 2012-08 Yes EVERY [address] [facility] (XOPENEX 1-29 HOURS [facility] HFA) 45 00:00: NEEDED Medical mcg/actuati 00 Center on inhaler levalbutero 2012-08 Yes EVERY [address] [facility] (XOPENEX 1-29 HOURS [facility] HFA) 45 00:00: NEEDED Medical mcg/actuati 00 Center on inhaler Tylenol Tylenol Yes [facility] Strength Strength ans TABS TABS Immunizations Ordered Immunization Filled Date Status Comments Sour ce Name Immunization Name Influenza, 2016-08-30 [facility]pleted [facility] injectable, 00:00:00 quadrivalent, preservative free (afluria, fluarix, flulaval, fluzone) Tdap 2016-08-30 Completed [facility] 00:00:00 Influenza, 2016-08-30 Completed [facility] injectable, 00:00:00 quadrivalent, preservative free (afluria, fluarix, flulaval, fluzone) Tdap 2016-08-30 Completed [facility] 00:00:00 Influenza, 2016-08-30 Completed [facility] injectable, 00:00:00 quadrivalent, preservative free (afluria, fluarix, flulaval, fluzone) Tdap 2016-08-30 Completed [facility] 00:00:00 Influenza Virus 2016-08-30 [facility]pleted [facility]ine Quad IM 3+ 00:00:00 [facility] TDAP 2016-08-30 Completed [facility] 00:00:[address] [facility] Influenza Virus 2016-08-30 Completed [facility] Vaccine Quad IM 3+ 00:00:00 [facility] TDAP 2016-08-30 Completed [facility] 00:00:[address] [facility] Influenza Virus 2016-08-30 Completed [facility] Vaccine Quad IM 3+ 00:00:00 [facility] TDAP 2016-08-30 Completed [facility] of 00:00:[address] [facility] Influenza Virus 2016-08-30 Completed [facility] Vaccine Quad IM 3+ 00:00:00 [facility] TDAP 2016-08-30 Completed [facility] 00:00:00 [place] [facility] Pneumococcal 2012-11-10 Completed [facility] Polysaccharide PPV23 00:00:00 Pneumococcal 2012-11-10 Completed [facility] Polysaccharide PPV23 00:00:00 Pneumococcal 2012-11-10 Completed [facility] Polysaccharide PPV23 00:00:00 Pneumococcal 2012-11-10 Completed University o f Polysaccharide, 00:00:00 [place] [facility] PPSV23 (PNEUMOVAX) Branch Pneumococcal 2012-11-10 Completed University o f Polysaccharide, 00:00:00 [place] [facility] PPSV23 (PNEUMOVAX) Branch Pneumococcal 2012-11-10 Completed University o f Polysaccharide, 00:00:00 [place] [facility] PPSV23 (PNEUMOVAX) Branch Pneumococcal 2012-11-10 Completed [facility] o f Polysaccharide, 00:00:00 [place] [facility] PPSV23 (PNEUMOVAX) Branch Pneumococcal 2008-08-08 Completed [facility] Polysaccharide PPV23 00:00:00 Pneumococcal 2008-08-08 Completed [facility] Polysaccharide PPV23 00:00:00 Pneumococcal 2008-08-08 Completed [facility] Polysaccharide PPV23 00:00:00 Pneumococcal 2008-08-08 Completed University o f Polysaccharide, 00:00:00 [place] [facility] PPSV23 (PNEUMOVAX) Branch Pneumococcal 2008-08-08 Completed [facility] o f Polysaccharide, 00:00:00 [place] [facility] PPSV23 (PNEUMOVAX) Branch Pneumococcal 2008-08-08 Completed [facility] o f Polysaccharide, 00:00:00 [place] [facility] PPSV23 (PNEUMOVAX) Branch Pneumococcal 2008-08-08 Completed [facility] o f Polysaccharide, 00:00:00 [place] [facility] PPSV23 (PNEUMOVAX) Branch Pneumococcal 2008-04-05 Completed [facility] Polysaccharide PPV23 00:00:00 Pneumococcal 2008-04-05 Completed [facility] Polysaccharide PPV23 00:00:00 Pneumococcal 2008-04-05 Completed [facility] Polysaccharide PPV23 00:00:00 Pneumococcal 2008-04-05 Completed University o f Polysaccharide, 00:00:00 [place] [facility] PPSV23 (PNEUMOVAX) Branch Pneumococcal 2008-04-05 Completed [facility] o f Polysaccharide, 00:00:00 [place] [facility] PPSV23 (PNEUMOVAX) Branch Pneumococcal 2008-04-05 Completed [facility] o f Polysaccharide, 00:00:00 [place] [facility] PPSV23 (PNEUMOVAX) Branch Pneumococcal 2008-04-05 Completed University o f Polysaccharide, 00:00:00 [place] [facility] PPSV23 (PNEUMOVAX) Branch Tdap (Adacel) Unknown [facility]pleted [facility] Fluzone Quadrivalent Unknown Completed [facility] 0.5 ML Intramuscular Suspension Vital Signs Vital Name Observation Time Observation Value Comments Source Systolic blood 2022-02-03 150 mm[Hg] University of pressure 13:06:[address] [facility] Diastolic blood 2022-02-03 92 mm[Hg] University o f pressure 13:06:[address] [facility] Heart rate 2022-02-03 88 /min University of 13:06:[address] [facility] Body temperature 2022-02-03 36.28 Sara University of 13:06:[address] [facility] Respiratory rate 2022-02-03 20 /min [facility] 13:06:[address] [facility] Oxygen saturation 2022-02-03 96 /min [facility] in Arterial blood 13:06:00 [facility] by Pulse oximetry Branch Body height 2022-02-02 152.4 cm University of 20:46:[address] [facility] Body weight 2022-02-02 77.111 kg University of 20:46:[address] [facility] BMI 2022-02-02 33.20 kg/m2 University of 20:46:[address] [facility] Systolic blood 2022-02-03 143 mm[Hg] University of pressure 01:15:[address] [facility] Diastolic blood 2022-02-03 95 mm[Hg] University o f pressure 01:15:[address] [facility] Heart rate 2022-02-03 98 /min University 01:15:[address] [facility] Respiratory rate 2022-02-03 16 /min University of 01:15:[address] [facility] Oxygen saturation 2022-02-03 95 /min [facility] in Arterial blood 01:15:00 [facility] by Pulse oximetry [place] Body temperature 2022-02-03 36.78 Sara [place] [facility] 00:15:[address] [facility] Body height 2022-02-02 152.4 cm University of 20:46:[address] [facility] Body weight 2022-02-02 77.111 kg University of 20:46:[address] [facility] BMI 2022-02-02 33.20 kg/m2 University of 20:46:[address] [facility] Systolic blood 2022-01-15 116 mm[Hg] University of pressure 14:45:[address] [facility] Diastolic blood 2022-01-15 83 mm[Hg] University o f pressure 14:45:[address] [facility] Heart rate 2022-01-15 114 /min University of 14:45:[address] [facility] Respiratory rate 2022-01-15 24 /min University 14:45:[address] [facility] Body height 2022-01-15 152.4 cm University 14:45:[address] [facility] Body weight 2022-01-15 72.576 kg University of 14:45:[address] [facility] BMI 2022-01-15 31.25 kg/m2 University of 14:45:[address] [facility] Oxygen saturation 2022-01-15 97 /min [facility] Arterial blood 14:45:00 [facility] Pulse oximetry [place] Systolic blood 2020-11-29 134 mm[Hg] Location: [facility] pressure 12:58:00 Position: Sitting Diastolic blood 2020-11-29 87 mm[Hg] Location: [facility] pressure 12:58:00 Position: Sitting Body height 2020-11-29 60 [in_us] [facility] 12:58:00 Weight 2020-11-29 130 [lb_av] [facility] 12:58:00 Body mass index 2020-11-29 25.39 kg/m2 [facility] (BMI) [Ratio] 12:58:00 Body temperature 2020-11-29 98 [degF] Method: [facility] 12:58:00 Temporal Heart Rate 2020-11-29 102 /min [facility] 12:58:00 Diastolic blood 2020-11-04 88 mm[Hg] Location: [facility] pressure 09:00:00 Position: Sitting Body height 2020-11-04 60 [in_us] [facility] 09:00:00 Weight 2020-11-04 140 [lb_av] [facility] 09:00:00 Body mass index 2020-11-04 27.34 kg/m2 [facility] (BMI) [Ratio] 09:00:00 Body temperature 2020-11-04 97.8 [degF] Method: [facility] 09:00:00 Temporal Heart Rate 2020-11-04 90 /min [facility] 09:00:00 Systolic blood 2020-11-04 128 mm[Hg] Location: LUE; [facility] pressure 09:00:00 Position: Sitting Systolic blood 2020-10-04 117 mm[Hg] Location: RUE; [facility] pressure 09:17:00 Position: Sitting Diastolic blood 2020-10-04 81 mm[Hg] Location: RUE; [facility] pressure 09:17:00 Position: Sitting Body height 2020-10-04 60 [in_us] [facility] 09:17:00 Weight 2020-10-04 140 [lb_av] [facility] 09:17:00 Body mass index 2020-10-04 27.34 kg/m2 [facility] (BMI) [Ratio] 09:17:00 Body temperature 2020-10-04 96.7 [degF] Method: [facility] 09:17:00 Temporal Heart Rate 2020-10-04 98 /min [facility] 09:17:00 Systolic blood 2020-09-17 127 mm[Hg] Location: LUE; [facility] pressure 10:48:00 Position: Sitting Diastolic blood 2020-09-17 94 mm[Hg] Location: LUE; [facility] pressure 10:48:00 Position: Sitting Body height 2020-09-17 60 [in_us] [facility] 10:48:00 Weight 2020-09-17 140 [lb_av] [facility] 10:48:00 Body mass index 2020-09-17 27.34 kg/m2 [facility] (BMI) [Ratio] 10:48:00 Heart Rate 2020-09-17 88 /min [facility] 10:48:00 Respiratory rate 2020-09-17 18 /min [facility] 10:48:00 Body temperature 2020-09-17 98.8 [degF] [facility] 10:48:00 Systolic blood 2020-08-12 146 mm[Hg] Location: LUE; [facility] pressure 09:06:00 Position: Sitting Diastolic blood 2020-08-12 92 mm[Hg] Location: LUE; [facility] pressure 09:06:00 Position: Sitting Body height 2020-08-12 60 [in_us] [facility] 09:06:00 Weight 2020-08-12 130 [lb_av] [facility] 09:06:00 Body mass index 2020-08-12 25.39 kg/m2 [facility] (BMI) [Ratio] 09:06:00 Body temperature 2020-08-12 96.6 [degF] Method: [facility] 09:06:00 Temporal Heart Rate 2020-08-12 108 /min [facility] 09:06:00 Systolic blood 2020-05-01 129 mm[Hg] Location: LUE; [facility] pressure 13:37:00 Position: Sitting Diastolic blood 2020-05-01 88 mm[Hg] Location: LUE; [facility] pressure 13:37:00 Position: Sitting Body height 2020-05-01 60 [in_us] [facility] 13:37:00 Weight 2020-05-01 151 [lb_av] [facility] 13:37:00 Body mass index 2020-05-01 29.49 kg/m2 [facility] (BMI) [Ratio] 13:37:00 Body temperature 2020-05-01 98.1 [degF] Method: [facility] 13:37:00 Temporal Heart Rate 2020-05-01 97 /min [facility] 13:37:00 Respiratory rate 2020-05-01 18 /min [facility] 13:37:00 Systolic blood 2020-04-24 117 mm[Hg] Location: RUE; [facility] pressure 09:53:00 Position: Sitting Diastolic blood 2020-04-24 83 mm[Hg] Location: RUE; [facility] pressure 09:53:00 Position: Sitting Body height 2020-04-24 60 [in_us] [facility] 09:53:00 Weight 2020-04-24 151 [lb_av] [facility] 09:53:00 Body mass index 2020-04-24 29.49 kg/m2 [facility] (BMI) [Ratio] 09:53:00 Body temperature 2020-04-24 97.7 [degF] Method: [facility] 09:53:00 Temporal Heart Rate 2020-04-24 118 /min [facility] 09:53:00 Systolic blood 2019-10-20 154 mm[Hg] Location: LLE; [facility] pressure 10:01:00 Position: Sitting Diastolic blood 2019-10-20 96 mm[Hg] Location: LLE; [facility] pressure 10:01:00 Position: Sitting Body height 2019-10-20 60 [in_us] [facility] 10:01:00 Weight 2019-10-20 140 [lb_av] [facility] 10:01:00 Body mass index 2019-10-20 27.34 kg/m2 [facility] (BMI) [Ratio] 10:01:00 Body temperature 2019-10-20 98.4 [degF] Method: Oral [facility] 10:01:00 Heart Rate 2019-10-20 93 /min [facility] 10:01:00 Systolic blood 2019-10-13 132 mm[Hg] Location: LUE; [facility] pressure 09:41:00 Position: Sitting Diastolic blood 2019-10-13 86 mm[Hg] Location: LUE; [facility] pressure 09:41:00 Position: Sitting Weight 2019-10-13 140 [lb_av] [facility] 09:41:00 Body mass index 2019-10-13 27.34 kg/m2 [facility] (BMI) [Ratio] 09:41:00 Body temperature 2019-10-13 98 [degF] Method: Oral [facility] 09:41:00 Heart Rate 2019-10-13 93 /min Location: L [facility] 09:41:00 Brachial Artery; Respiratory rate 2019-10-13 14 /min Quality: Normal [facility] 09:41:00 BP Systolic 2019-09-12 118 mm[Hg] Location: RUE; [facility] 14:01:00 Position: Sitting BP Diastolic 2019-09-12 86 mm[Hg] Location: RUE; [facility] 14:01:00 Position: Sitting Height 2019-09-12 60 [in_us] [facility] 14:01:00 Temperature 2019-09-12 98.6 [degF] Method: Oral [facility] 14:01:00 Heart Rate 2019-09-12 116 /min Location: R [facility] 14:01:00 Brachial Artery; Quality: Normal Respiration Rate 2019-09-12 15 /min Quality: Normal [facility] 14:01:00 BP Systolic 2019-01-27 116 mm[Hg] Location: LUE; [facility] 09:02:00 Position: Sitting BP Diastolic 2019-01-27 81 mm[Hg] Location: LUE; [facility] 09:02:00 Position: Sitting Height 2019-01-27 60 [in_us] [facility] 09:02:00 Temperature 2019-01-27 98.4 [degF] Method: Oral [facility] 09:02:00 Heart Rate 2019-01-27 103 /min [facility] 09:02:00 Body Mass Index 2019-01-25 27.73 kg/m2 [facility] Calculated 11:14:00 Temperature 2019-01-25 98.2 [degF] Method: Oral [facility] 11:14:00 Heart Rate 2019-01-25 101 /min Location: R [facility] 11:14:00 Radial; Respiration Rate 2019-01-25 18 /min Quality: Normal [facility] 11:14:00 BP Systolic 2019-01-25 115 mm[Hg] Location: RUE; [facility] 11:14:00 Position: Sitting BP Diastolic 2019-01-25 81 mm[Hg] Location: RUE; [facility] 11:14:00 Position: Sitting Height 2019-01-25 60 [in_us] [facility] 11:14:00 Weight 2019-01-25 142 [lb_av] [facility] 11:14:00 BP Systolic 2019-01-04 120 mm[Hg] Location: RUE; [facility] 08:34:00 Position: Sitting BP Diastolic 2019-01-04 88 mm[Hg] Location: RUE; [facility] 08:34:00 Position: Sitting Temperature 2019-01-04 98.2 [degF] Method: Oral [facility] 08:34:00 Heart Rate 2019-01-04 101 /min Location: R [facility] 08:34:00 Brachial Artery; Respiration Rate 2019-01-04 16 /min Quality: Normal [facility] 08:34:00 BP Systolic 2018-12-23 115 mm[Hg] Location: RUE; [facility] 11:14:00 Position: Sitting BP Diastolic 2018-12-23 84 mm[Hg] Location: RUE; [facility] 11:14:00 Position: Sitting Height 2018-12-23 60 [in_us] [facility] 11:14:00 Body Mass Index 2018-12-23 27.73 kg/m2 [facility] Calculated 11:14:00 Weight 2018-12-23 142 [lb_av] [facility] 11:14:00 Temperature 2018-12-23 97.9 [degF] Method: Oral [facility] 11:14:00 Heart Rate 2018-12-23 99 /min Location: R [facility] 11:14:00 Brachial Artery; Respiration Rate 2018-12-23 14 /min [facility] 11:14:00 BP Systolic 2018-12-23 117 mm[Hg] Location: RUE; [facility] 10:06:00 Position: Sitting BP Diastolic 2018-12-23 85 mm[Hg] Location: RUE; [facility] 10:06:00 Position: Sitting Height 2018-12-23 60 [in_us] [facility] 10:06:00 Weight 2018-12-23 142 [lb_av] [facility] 10:06:00 Body Mass Index 2018-12-23 27.73 kg/m2 [facility] Calculated 10:06:00 Temperature 2018-12-23 98.4 [degF] Method: Oral [facility] 10:06:00 Heart Rate 2018-12-23 97 /min [facility] 10:06:00 BP Systolic 2018-11-28 114 mm[Hg] Location: LUE; [facility] 10:36:00 Position: Sitting BP Diastolic 2018-11-28 83 mm[Hg] Location: LUE; [facility] 10:36:00 Position: Sitting Height 2018-11-28 60 [in_us] [facility] 10:36:00 Weight 2018-11-28 142 [lb_av] [facility] 10:36:00 Body Mass Index 2018-11-28 27.73 kg/m2 [facility] Calculated 10:36:00 Heart Rate 2018-11-28 112 /min [facility] 10:36:00 BP Systolic 2018-11-14 109 mm[Hg] Location: RUE; [facility] 09:57:00 Position: Sitting BP Diastolic 2018-11-14 71 mm[Hg] Location: RUE; [facility] 09:57:00 Position: Sitting Height 2018-11-14 60 [in_us] [facility] 09:57:00 Weight 2018-11-14 142 [lb_av] [facility] 09:57:00 Body Mass Index 2018-11-14 27.73 kg/m2 [facility] Calculated 09:57:00 Temperature 2018-11-14 98.6 [degF] Method: Oral [facility] 09:57:00 Heart Rate 2018-11-14 94 /min [facility] 09:57:00 BP Systolic 2018-06-08 133 mm[Hg] Location: LUE; [facility] 11:36:00 Position: Sitting BP Diastolic 2018-06-08 93 mm[Hg] Location: L[facility]; [facility] 11:36:00 Position: Sitting Height 2018-06-08 60 [in_us] [facility] 11:36:00 Weight 2018-06-08 144 [lb_av] [facility] 11:36:00 Body Mass Index 2018-06-08 28.12 kg/m2 [facility] Calculated 11:36:00 Temperature 2018-06-08 98.6 [degF] Method: [facility] 11:36:00 Temporal Heart Rate 2018-06-08 104 /min Location: L [facility] 11:36:00 Brachial Artery; BP Systolic 2018-05-30 137 mm[Hg] Location: LUE; [facility] 11:19:00 Position: Sitting BP Diastolic 2018-05-30 91 mm[Hg] Location: LUE; [facility] 11:19:00 Position: Sitting Height 2018-05-30 60 [in_us] [facility] 11:19:00 Weight 2018-05-30 144 [lb_av] [facility] 11:19:00 Body Mass Index 2018-05-30 28.12 kg/m2 [facility] Calculated 11:19:00 Temperature 2018-05-30 97.8 [degF] Method: [facility] 11:19:00 Temporal Heart Rate 2018-05-30 108 /min [facility] 11:19:00 BP Systolic 2018-05-11 140 mm[Hg] Location: LUE; [facility] 10:52:00 Position: Sitting BP Diastolic 2018-05-11 98 mm[Hg] Location: LUE; [facility] 10:52:00 Position: Sitting Height 2018-05-11 60 [in_us] [facility] 10:52:00 Weight 2018-05-11 144 [lb_av] [facility] 10:52:00 Body Mass Index 2018-05-11 28.12 kg/m2 [facility] Calculated 10:52:00 Temperature 2018-05-11 97.9 [degF] Method: [facility] 10:52:00 Temporal Heart Rate 2018-05-11 115 /min [facility] 10:52:00 Procedures Procedure Date / Time Performing Source Performed Clinician [place] TIME OR (NON-REPORTABLE) 2022-02-03 [facility] 00:09:14 Medical Branch FL TIME OR (NON-REPORTABLE) 2022-02-03 [facility] 00:09:14 Medical Branch ENDOSCOPIC [facility]:27[facility] Branch ENDOSCOPIC PERCUTANEOUS 2022-02-02 [facility] NEPHROLITHOTOMY 21:27:00 Medical Branch COVID-19 (ID NOW RAPID 2022-02-02 [facility] TESTING) 19:55:00 Medical Branch LAB ONLY COVID INTERPRETATION 2022[facility]02[facility]02 [facility] [place] 19[facility] COVID-19 (ID NOW RAPID 2022-02-02 [facility] TESTING) 19:55:00 Medical Branch LAB ONLY COVID INTERPRETATION 2022-02-02 [facility] [place] 19:55:00 Medical Branch POCT TEST 2022-02-02 [facility] [place] 19:15:00 [facility] Branch POCT TEST 2022-02-02 [facility] [place] 19:15:00 Medical [facility] URINE CULTURE 2022-01-[facility] 19:55:[address] Renal Stone [id number] 2020-11-11 [facility] 00:[facility]:00 [QL] CBC (INCLUDES DIFF/PLT) 2020-11-04 [facility] 00:00:00 [QL] CULTURE, URINE, ROUTINE 2020-11-04 [facility] 00:00:00 [QL] CULTURE, URINE, ROUTINE 2020-10-25 [facility] 00:00:00 [QL] CBC (INCLUDES DIFF/PLT) 2020-10-04 [facility] 00:00:00 [QL] URINALYSIS, COMPLETE 2020-09-17 [facility] W/REFLEX TO CULTURE 00:00:00 [QL] URINALYSIS, COMPLETE 2020-07-16 [facility] W/REFLEX TO CULTURE 00:00:00 [QL] CULTURE, URINE, ROUTINE 2020-07-11 [facility] 00:00:00 [QL] BASIC METABOLIC PANEL 2020-07-11 [facility] W/EGFR 00:00:00 Central Line 2020-06-14 [facility] 00:00:00 [place] Insertion 2020-06-11 [facility] 00:00:00 [QL] VITAMIN D, 25 HYDROXY 2020-05-01 [facility] AND 1,25 DIHYDROXY, LC/MS/MS 00:00:00 [Q] CALCIUM 2020-05-01 [facility] 00:00:00 [QL] PTH-RELATED PROTEIN 2020-05-01 [facility] (PTH-RP) 00:00:00 [QL] URIC ACID 2020-05-01 [facility] 00:00:00 US Renal [id number] 2020-05-01 [facility] 00:00:00 [place] Breast mammogram bilateral 2020-04-24 [facility] [id number] 00:00:00 CT Abdomen/Pelvis w/wo 2020-04-11 [facility] contrast [id number] 00:00:00 . [facility] - PAP 2019-10-20 [facility] 00:[facility]:00 CT Abdomen/Pelvis w/wo 2019-10-10 [facility] ians contrast [id number] 00:00:00 CT Abd Renal Protocol w/wo IV 2019-09-11 [facility] contrast [id number] 00:00:00 CT Renal Stone [id number] 2019-09-11 [facility] 00:00:00 [QLH] CULTURE, URINE, ROUTINE 2018-12-23 [facility] 00:00:00 [QLH] CBC (INCLUDES DIFF/PLT) 2018-12-23 [facility] 00:00:00 MRI Pelvis with and without 2018-12-05 [facility] contrast [id number] 00:00:00 [QLH] CULTURE, URINE, ROUTINE 2018-11-28 [facility] 00:00:00 [QLH] URINALYSIS, COMPLETE 2018-11-28 [facility] 00:00:00 [QLH] CBC (INCLUDES DIFF/PLT) 2018-11-28 [facility] 00:00:00 [QLH] CMP W/EGFR 2018-11-28 [facility] 00:00:00 MRI Abdomen/Pelvis w/wo 2018-11-14 [facility] contrast [id number] 00:00:00 Abdomen AP view [id number] 2018-08-01 [facility] 00:00:00 Abdomen AP view 25014 2018-06-08 [facility] 00:00:00 [QLH] CBC (INCLUDES DIFF/PLT) 2018-05-30 [facility] 00:00:00 [QLH] BASIC METABOLIC PANEL 2018-05-30 [facility] W/EGFR 00:00:00 CT Abd Renal Protocol w/wo IV 2018-05-30 [facility] contrast [id number] 00:00:00 [H] C Urine Transplant 2018-05-30 [facility] 00:00:00 [H] Culture: Wound/Abscess 2018-05-30 [facility] w/Gram Stain 00:00:00 [H] PTH Profile 2018-05-11 [facility] 00:00:00 [QH] CALCIUM 2018-05-11 [facility] 00:00:00 [QLH] BUN/CREATININE RATIO 2018-05-11 [facility] W/EGFR 00:00:00 [B] VITAMIN D 25-HYDROXY 2018-05-11 [facility] 00:00:00 [QLH] CBC (INCLUDES DIFF/PLT) 2018-05-11 [facility] 00:00:00 History of Colostomy [facility] History of Dilation And [facility] Curettage Of Cervical Stump History of Hysteroscopy [facility] History of Ureteral stent [facility] placement History of [facility] Ventriculoperitoneal shunt creation History of Exploratory [facility] laparotomy Plan of Care Planned Activity Planned Date Details Comments Source Future Scheduled 2021-04-[address] [facility] 00:00:00 (#1) [code = Medical Center INFLUENZA VACCINE (#1)] Future Scheduled 2021-04-[address] [facility] 00:00:00 (#1) [code = [facility] INFLUENZA VACCINE (#1)] Future Scheduled 2020-10-29 US Renal 53504 [facility] 00:00:00 [code = 23880] Future Scheduled 2020-10-29 US Renal 06440 [facility] 00:00:00 [code = 41090] Future Scheduled 2020-08-[address] [facility] 00:[facility]:00 SCREENING (12+) Medical Cent er [code = DEPRESSION SCREENING (12+)] Future Scheduled 2020-08-[address] [facility] 00:00:00 SCREENING (12+) Medical Cent er [code = DEPRESSION SCREENING (12+)] Diagnostic Test 2020-06-11 Port Cath [facility] Pending 00:00:00 Insertion [code = Port Cath Insertion] Future Scheduled 2020-04-[address] [facility] 00:00:00 (#1) [code = Medical Center INFLUENZA VACCINE (#1)] Diagnostic Test 2019-10-20 CT Abd Renal [facility] Pending 00:00:00 Protocol w/[place] contrast 86284-23 [code = 43074-84] Diagnostic Test 2019-10-10 CT Abdomen/Pelvis [facility] Pending 00:00:00 w/wo contrast 74324 [code = 96528] Diagnostic Test 2018-12-05 MRI Pelvis with [facility] Pending 00:00:00 and without contrast 61621 [code = 10586] Diagnostic Test 2018-12-05 MRI Pelvis with [facility]ending 00:00:00 and without contrast 72644 [code = 30406] Diagnostic Test 2018-12-01 Abdomen AP view [facility] Pending 00:00:00 17283 [code = 80511] Future Scheduled 2005-03-[address] [facility] 00:00:00 WELLNESS (YEAR [address] or FIRST YEAR if no IPPE) [code = MEDICARE ANNUAL WELLNESS (YEAR 2 or FIRST YEAR if no IPPE)] Future Scheduled 2005-03-[address] [facility] 00:00:00 WELLNESS (YEAR [address] or FIRST YEAR if no IPPE) [code = MEDICARE ANNUAL WELLNESS (YEAR 2 or FIRST YEAR if no IPPE)] Future Scheduled 2005-03-[address] [facility] 00:00:00 WELLNESS (YEAR [address] or FIRST YEAR if no IPPE) [code = MEDICARE ANNUAL WELLNESS (YEAR 2 or FIRST YEAR if no IPPE)] Future Scheduled [address] [facility] 00:[facility]:00 malignant neoplasm Medical C enter of cervix (procedure) [code = 125662482] Future Scheduled [address] [facility] 00:00:00 malignant neoplasm Medical C enter of cervix (procedure) [code = 182470656] Future Scheduled [address] [facility] 00:00:00 malignant neoplasm Medical C enter of cervix (procedure) [code = 636311794] Future Scheduled 1998 DTAP/TDAP/TD [facility] 00:[facility] VACCINES (1 - Medical Center Tdap) [code = DTAP/TDAP/TD VACCINES (1 - Tdap)] Future Scheduled 1998 DTAP/TDAP/TD [facility] 00:00:00 VACCINES (1 - Medical Center Tdap) [code = DTAP/TDAP/TD VACCINES (1 - Tdap)] Future Scheduled [address] [facility] 00:00:00 SCREENING [code = Medical Ce nter HEPATITIS C SCREENING] Future Scheduled [address] [facility] 00:00:00 SCREENING [code = Medical Ce nter HEPATITIS C SCREENING] Future Scheduled 1991 COVID-[address] [facility] 00:00:00 (1) [code = [facility] COVID-19 VACCINE (1)] Future Scheduled 1991 COVID-[address] [facility] 00:00:00 (1) [code = [facility] COVID-19 VACCINE (1)] Future Scheduled CT Abdomen/Pelvis Before [id number] [facility] Test w/wo contrast 46804 [code = 19105] Future Scheduled CT Abdomen/Pelvis Before [id number] [facility] Test w/wo contrast 51546 [code = 44594] Encounters Start End Encounter Admission Attending Care Care Encounter Source Date/Time Date/Time Type Type Clinicians Facility Department ID 2022-02-09 Outpatient [facility] [id number] [place] 15:18:32 [facility] 2022-02-06 [facility] [id number] [place] 16:57:05 [facility] 2021-06-25 [facility]patient [facility] [id number] [facility] 16:30:24 [facility] 2018-12-[address] [facility] URO [id number] [facility] H 17:12:36 2022-03-12 2022-03-12 Outpatient Bouchra MADSEN [facility] [id number] Univers 09:30:00 09:30:00 [facility] [id number]-12 2022-03-12 Outpatient Bouchra MADSEN [facility] [id number] Univers 09:30:00 09:30:00 BILAL ity [facility] 2022-03-03 2022-03-03 Outpatient Bouchra MARIEE [facility] [id number] Univers 09:00:00 09:00:00 ANUP [id number] ity of [facility] 2022-02-19 2022-02-19 Telephone EDUARDO Torre [id number] [id number] [place] 00:00:00 00:00:[address] [id number] Health 9.2.7.2.686 [id number] 1 2022-02-10 2022-02-10 [id number] Univers 13:00:00 13:00:00 BILAL [id number] ity [facility] 2022-02-10 2022-02-10 [facility] [id number] Univers 13:00:00 13:00:00 BILAL ity [facility] 2022-02-10 2022-02-10 [facility] [id number] Univers 13:00:00 13:00:00 BILAL ity [facility] 2022-02-02 2022-02-03 Outpatient [facility] [id number] Univers 14:41:00 20:00:00 BILAL ity of [facility] 2022-02-02 2022-02-03 Hospital JACINTO Madsen 1.2.840.114 [id number] Univers 14:41:00 20:00:00 Encounter Bilal NATALIE 350.1.13.10 ity of [facility] 4.2.7.2.686 Alvino as [id number] [facility] [address] 2022-02-02 2022-02-02 Surgery JACINTO Madsen 1.2.840.114 [id number] Univers 16:30:00 20:21:00 Bilal NATALIE 350.1.13.10 it y of [facility] 4.2.7.2.686 Alvino as [id number] [facility] [address] 2022-01-19 2022-01-19 [facility] [id number] Univers 00:00:00 00:00:00 Bilal HEALTH 350.1.13.10 it y of [place] 4.2.7.2.686 [place] [facility] [id number] [facility] PRIMARY & [address] SPECIALTY CARE 2022-01-15 2022-01-15 Office C[facility] 1.2.840.114 [id number] [facility] 09:15:00 11:49:52 Visit [facility] [id number] y of [place] 4.2.7.2.686 [facility] [id number] [facility] PRIMARY & [address] SPECIALTY CARE 2021-12-25 2021-12-25 Patient Anita Shin UTP 6410 1.2.840. 114 [id number] [place] 00:00:00 00:00:00 Outreach Anita Shin 350.1.13.5 8 Health 9.2.7.2.686 [id number] 2021-12-08 2021-12-08 Patient Diana Bales [place] 1.2.840.1 14 [id number] [place] 00:00:00 00:00:00 Outreach Diana Bales [place] 350.1.13.58 Health MEDICAL 9.2.7.2.686 CENTER [id number] 2020-12-31 2021-01-05 Inpatient U MAN, [facility] [place] [address] [facility] 02:20:00 20:30:00 HIEU 2020-11-29 2020-11-29 AppointEDUARDO Garcias Minimally [id number] [place] 13:30:00 13:30:00 t; ILAN BARRERA M.D. Invasive Ruby TALAVERA M.D. [facility] 2020-11-04 2020-11-04 EDUARDO [facility] [id number] [place] 09:00:00 09:00:00 t; DEONDRE RAMSAY M.D. Center - Justeni Hellen MENDOSA M.D. Medical Center 2020-10-04 2020-10-04 EDUARDO Early Obstetrics [id number] [place] 09:00:00 09:00:00 t; DEONDRE RAMSAY M.D. and Mercedes MENDOSA Gynecology cheo [facility] 2020-09-17 2020-09-17 EDUARDO Hernández Infectious [id number] [place] 09:00:00 09:00:00 t; KEVIN, Diseases - Ph krysten LAGOS M.D. [facility] KEVIN Medical Erika [place] 2020-08-12 2020-08-12 Appointpo JENNINGS [facility] Urology - [id number] [place] 09:45:00 09:45:00 t; IVETTE [facility]INGS [facility] 2020-07-16 2020-07-16 [facility] Family [id number] [place] 16:00:00 16:00:00 t; Erika RHOADES [facility] - Ruby TORRE [facility] Jose A RHOADES M.D. [place] 2020-06-25 2020-06-25 Outpatient HERMILO, [facility] [address] [facility] 10:53:00 18:11:00 BANDAR 2020-05-21 2020-05-21 Sintia TORRE [facility] [id number] [place] 16:00:00 16:00:00 t; Erika RHOADES Ph cheo Perez M.D. 2020-05-01 2020-05-[address] [id number] [place] 13:15:00 13:15:00 t; ANNIE JUAREZ M.D. [facility] - Delfino Zhongshjuan manuel grider M.D. 2020-04-24 2020-04-24 Sintia [facility] Women's [id number] [place] 10:00:00 10:00:00 t; LEXIS [place] - Karlene VILLASENOR M.D. [facility] Jose A PIRES M.D. [place] 2020-04-08 2020-04-09 [facility] [address] [facility] 13:57:00 18:10:00 ANNIE 2020-04-08 2020-04-08 Sintia JUAREZ [facility] [id number] [place] 10:00:00 10:00:00 t; ANNIE JUAREZ M.D. Physici HAJAR, ans M.D. 2020-03-28 2020-03-28 Appointpo JENNINGS [facility] Urology - [id number] [place] 10:45:00 10:45:00 t; IVETTE JENNINGS [facility] ici IVETTE, [employer] Medical ans [employer] [place] 2020-03-06 2020-03-06 Sintia VILLASENOR [facility] [id number] [place] 10:00:00 10:00:00 t; Justen PIRES i, M.D. ans GAZALA, M.D. 2019-12-08 2019-12-08 Sintia JUAREZ [facility] Urology - [id number] [place] 08:45:00 08:45:00 t; ANNIE JUAREZ M.D. [place] Jose A Zhong M.D. [place] 2019-11-03 2019-11-03 [facility] [id number] [place] 14:30:00 14:30:00 t; Erika RHOADES [facility] cheo TORRE M.D. 2019-10-27 2019-10-27 Sintia JUAREZ [facility] Urology - [id number] [place] 10:15:00 10:15:00 t; ANNIE JUAREZ M.D. [place] Jose A Zhong M.D. [place] 2019-10-21 2019-10-25 Inpatient U OKERE, [facility] MED [address] [facility] 12:15:00 20:00:00 KARLA 2019-10-20 2019-10-20 Sintia RAMSAY [facility] Women's [id number] [place] 10:15:00 10:15:00 t; DEONDRE RAMSAY M.D. [facility] Hellen Ford M.D. Medical [place] 2019-10-13 2019-10-13 Sintia TORRE [facility] Family [id number] [place] 09:30:00 09:30:00 t; Erika RHOADES [facility] Jose A RHOADES M.D. [place] 2019-09-12 2019-09-12 Sintia TORRE [facility] Family [id number] [place] 13:15:00 13:15:00 t; Erika RHOADES [place] Jose A Hoang M.D. [place] 2019-08-25 2019-08-[address] [facility] MED [address] [facility] 06:34:00 00:52:00 2019-03-21 2019-03-21 Sintia PECK [facility] [id number] [place] 11:00:00 11:00:00 t; Justen NOEL i, ans IGUEZ, M.D. ADRIANNA, M.D. 2019-01-30 2019-01-[address] [facility] URO [address] [facility] 18:32:00 18:32:00 2019-01-27 2019-01-27 Sintia RAMSAY [facility] Women's [id number] [place] 09:00:00 09:00:00 t; DEONDRE RAMSAY M.D. [place] cheo Trujillo M.D. 2019-01-25 2019-01-25 EDUARDO Murillo [facility] [id number] [place] 10:30:00 10:30:00 t; Zana MEJIA Mercedes SAEED M.D. [place] Jose A Gerber M.D. [place] 2019-01-22 2019-01-[address] [facility] MED [address] [facility] 05:46:00 05:46:00 2019-01-12 2019-01-[address] [facility] URO [id number] [facility] 17:47:00 17:47:00 2019-01-12 2019-01-12 Sintia RAMSAY [facility] [id number] UT 11:30:00 11:30:00 t; DEONDRE RAMSAY M.D. P hysici ALLAN, ans M.D. 2019-01-12 2019-01-12 EDUARDO Quiroz UTP [id number] UT 07:30:00 07:30:00 t; ANNIE JUAREZ M.D. Physici HAJAR, ans M.D. 2019-01-06 2019-01-[address] [facility] URO [address] [facility] 10:09:00 10:09:00 2019-01-04 2019-01-04 Sintia AKHTAR [facility] Family [id number] [place] 08:15:00 08:15:00 t; Erika PORTILLO ans DEEPA, M.D. 2018-12-23 2018-12-23 Appointmen MED [facility] Family [id number] [place] 11:00:00 11:00:00 t; MED PROVIDER, Medicine Phy sici PROVIDER, TCM ans TCM 2018-12-23 2018-12-23 Appointpo [facility]'s [id number] [place] 09:40:00 09:40:00 t; DEONDRE RAMSAY M.D. [place] cheo Trujillo M.D. 2018-12-14 2018-12-13 [facility] [address] [facility] 03:28:00 19:10:00 2018-12-07 2018-12-07 Appointpo JUAREZ [facility] Urolog [id number] [place] 10:30:00 10:30:00 t; ANNIE JUAREZ M.D. Associates Physici HAJAR, ans M.D. 2018-11-28 2018-11-28 [facility] [id number] [place] 10:45:00 10:45:00 t; Erika BOONE [place] cheo Donohue i, M.D. 2018-11-28 2018-11-28 [facility] [id number] [place] 09:40:00 09:40:00 t; DEONDRE RAMSAY M.D. cheo Garcia M.D. 2018-11-14 2018-11-14 [facility]intia [facility] [id number] [place] 09:30:00 09:30:00 t; DEONDRE RAMSAY M.D. [place] cheo Trujillo M.D. 2018-08-10 2018-08-10 Sintia JUAREZ [facility] [id number] [place] 08:45:00 08:45:00 t; ANNIE JUAREZ M.D. Multi Physici HAJAR, Specialty cheo James 2018-06-08 2018-06-08 Sintia JUAREZ [facility] [id number] UT 09:45:00 09:45:00 t; ANNIE JUAREZ M.D. Multi Physici HAJAR, Specialty cheo James 2018-05-30 2018-05-30 [facility] [id number] [place] 10:30:00 10:30:00 t; Fiona GODFREY P.A. ans ELIZABETH, P.A. 2018-05-11 2018-05-11 Appointmen EDUARDO JUAREZ [place] [id number] [place] 10:15:00 10:15:00 t; ANNIE JUAREZ M.D. Multi Physici HAJAR, Specialty ans M.D. 2018-04-15 2018-04-15 Appointmen LARRY [facility] [id number] UT 08:45:00 08:45:00 t; ANNIE JUAREZ M.D. Physici HAJAR, ans M.D. 2010-06-10 2010-06-10 Appointmen TERRY [facility] Women's [id number] [place] 13:30:00 13:30:00 t; [facility] Erika Alfonso i, M.D. Results Test Description Test Time Test Comments Results Result Comments Source POCT Test 2022-02-02 19:15:00 Test Item Value Reference Range Interpretation Comme nts POCT PREG (test code = 1605) Negative On board controls acceptable with C Line (test code = 3574) Yes POCT PREG LOT # (test code = 3575) POCT PREG TEST DATE (test code = 3576) Lab Interpretation (test code = 64385-0) [facility] [id number] 19:15:00 Test Item Value Reference Range Interpretation Comments POCT PREG (test code = 1605) Negative On board controls acceptable with C Yes Line (test code = 3574) POCT PREG LOT # (test code = 3575) POCT PREG TEST DATE (test code = 3576) Lab Interpretation (test code = Normal 22550-5) [facility] [id number] 07:57:00 Radiation Dose CTDIVOL = 0 (mGy): DLP = 650.76 (mGy-cm)PROCEDURE INFORMATION:Exam: CT Abdomen And Pelvis Without ContrastExam date and time: 11/18/2020 8:13 AMAge: 40 years oldClinical indication: Calculus of kidney; Additional info: N20.0 calculus ofkidney/n20.0 calculus of kidneyTECHNIQUE:Imaging protocol: Computed tomography of the abdomen and pelvis withoutcontrast.Reconstructed images: Axial Sagittal and Coronal.Radiation optimization: All CT scans at this facility use at least one of thesedose o ptimization techniques: automated exposure control; mA and/or kVadjustment per patient size (includes targeted exams where dose is matched toclinical indication); or iterative reconstruction.COMPARISON:1. DX ABDOMEN/PELVIS WO IV CONTRAST CT 01/31/2019 12:[address] 10/21/2019 1:13:11 PMRADIATION DOSE METRICS:Total DLP (mGy-cm): 650.76FINDINGS:Lungs: Left basilar airspace changes possibly atelectasis persists.Pleural spaces: Incompletely imaged at least moderate sized left pleuraleffusion isagain shown similar to prior exam. Partially imaged [...] renalcollecting system at the expected renal pelvis thereis a 10 x 6 mmnonobstructing renal calculus. No ureteral calculus currently. Ureteraldiversion procedural changes noted. Left kidney and left ureter show no acuteobstructive abnormalities and are unremarkable.Stomach and bowel: Stomach and small bowel loops unremarkable. Akss-kw-elnreaogipwmbpg fecal material scattered throughout portions of the colon suggestive ofsome constipation. Left lower quadrant colostomy noted. Right lower quadrantileostomy with ureteral diversion /ileal conduit surgical changes.Appendix: No evidence of appendicitis. Appendix is normal.Intraperitoneal space: Unremarkable. No free air. No significant fluidcollection.Vasculature: Unremarkable. No abdominal aortic aneurysm.Lymph nodes: Unremarkable. No enlarged lymph nodes.Urinary bladder: Urinary bladder not visualizedReproductive: Lobular appearance of the uterus possibly underlying fibroidalthough not well assessed. Intrauterine device again noted. Adnexal regionsunremarkable. Overall similar to prior exam.Bones/joints: No acute osseous abnormalities, spina bifida and dysplasticacetabula and resorption of right femoralhead again shown. Rightward scolioticcurvature lumbar spine.Soft tissues: Diastasis rectus abdominusmusculature anterior abdominal wallagain shown. Continue nonspecific soft tissue thickening posterior sacral andnatal cleft regions. Correlate for decubitus ulcer sequela. No collections.IMPRESSION:1. Multiple nonobstructing right renal calyceal calculi and a right renalpelvis calculus measuring up to10 x 6 mm without acute hydronephrosis orperinephric fat stranding. No ureteral obstructing calculi c urrently.2. Surgical changes as noted above again shown3. Incompletely imaged at least moderate sized left pleural effusion againnoted within which catheter is presentScott Cristina MASON On 11/18/2020 09:13:57; [id number]--Jvbs by: Santi Evans MDDictated Date/time: 11/18/20 09:14Electronically Signed by: Santi Evans MD 11/18/2108:14FINAL REPORT [facility][QL] CBC (INCLUDES DIFF/PLT)2020-11-04 00:00:00 Test Item Value Reference Range Interpretation Comments WHITE BLOOD CELL 5.4 3.8-10.8 N COUNT (test code = {Thousand/u} WHITE BLOOD CELL COUNT) RED BLOOD CELL 4.80 3.80-5.10 N COUNT (test code = {Million/uL} RED BLOOD CELL COUNT) HEMOGLOBIN; Normal 12.7 g/dl 11.7-15.5 N (test code = 21021-5) HEMATOCRIT; Normal 41.5 % 35.0-45.0 N (test code = 4544-3) MCV; Normal (test 86.5 fL 80.0-100.0 N code = 787-2) MCHC; Below Low 30.6 g/dl 32.0-36.0 Threshold (test code = 45150-4) RDW; Normal (test 14.2 % 11.0-15.0 N code = 788-0) ABSOLUTE 3100 7527-0761 N NEUTROPHILS (test {cells/uL} code = ABSOLUTE NEUTROPHILS) ABSOLUTE 8218 833-2175 N LYMPHOCYTES (test {cells/uL} code = ABSOLUTE LYMPHOCYTES) ABSOLUTE MONOCYTES 545 {cells/uL} 200-950 N (test code = ABSOLUTE MONOCYTES) ABSOLUTE 108 {cells/uL} 15-500 N EOSINOPHILS (test code = ABSOLUTE EOSINOPHILS) ABSOLUTE BASOPHILS 22 {cells/uL} 0-200 N (test code = ABSOLUTE BASOPHILS) NEUTROPHILS (test 57.4 % N code = NEUTROPHILS) LYMPHOCYTES (test 30.1 % N code = LYMPHOCYTES) MONOCYTES; Normal 10.1 % N (test code = 49502-4) EOSINOPHILS; 2.0 % N Normal (test code = 32762-3) BASOPHILS; Normal 0.4 % N (test code = 31269-1) COMMENT(S) (test See Comment Review of p eripheral code = COMMENT(S)) smear con firmsautomated results. PLATELET COUNT; TNP N TEST(S) NOT PERFORMED: Normal (test code PLATELET COUNT Unable = 777-3) to report due tosignificant p latelet clumping.SPECIM EN RECEIVED DATE A ND TIME: Review of peripheral smear confirmsautomated results.[facility] Retroperitoneal Complete [id number] 11:47:00PROCEDURE INFORMATION:Exam: US Retroperitoneal Complete, Kidneys Aorta [...] 9.3 x 5.6 x 6.4 cmNo stones. Jvgt-sm-gibxdrcp left hydronephrosis.Aorta: Not well seen.Common iliac arteries: Not well seen.Inferior vena cava: Not well seen.Bladder: Not well seenIMPRESSION: Limited assessment demonstrating djhs-lz-atgnxsne left hydronephrosis. Theright kidney was not visualized. If further imaging is desired considerfollow-up CTChristsalma Stevenson MD On 11/01/2020 14:36:52; [id number]--Dgys by: Lester Stevenson MDDictated Date/time: 11/01/20 14:37Electronically Signed by: Lester Stevenson 11/01/2113:37FINAL REPORT [facility][QL] CBC (INCLUDES DIFF/PLT)2020-10-04 00:00:00 Test Item Value Reference Range Interpretation Comments WHITE BLOOD CELL 6.5 3.8-10.8 N COUNT (test code = {Thousand/u} WHITE BLOOD CELL COUNT) RED BLOOD CELL 4.89 3.80-5.10 N COUNT (test code = {Million/uL} RED BLOOD CELL COUNT) HEMOGLOBIN; Normal 12.8 g/dl 11.7-15.5 N (test code = 21738-2) HEMATOCRIT; Normal 41.1 % 35.0-45.0 N (test code = 4544-3) MCV; Normal (test 84.0 fL 80.0-100.0 N code = 787-2) MCHC; Below Low 31.1 g/dl 32.0-36.0 Threshold (test code = 60462-7) RDW; Above High 15.4 % 11.0-15.0 Threshold (test code = 788-0) ABSOLUTE 3608 3428-4598 N NEUTROPHILS (test {cells/uL} code = ABSOLUTE [...] Normal 10.2 % N (test code = 34152-8) EOSINOPHILS; 2.3 % N Normal (test code = 09091-6) BASOPHILS; Normal 0.3 % N (test code = 52459-3) COMMENT(S) (test See Comment Review of p eripheral code = COMMENT(S)) smear con firmsautomated results. PLATELET COUNT; TNP N TEST(S) NOT PERFORMED: Normal (test code PLATELET COUNT Unable = 777-3) to report due tosignificant p latelet clumping.SPECIM EN RECEIVED DATE A ND TIME: Review of peripheral smear confirmsautomated results.[facility][QL] URINALYSIS, COMPLETE W/REFLEX TO [id number] 12:16:00 Test Item Value Reference Range Interpretation [...] Normal (test NEGATIVE NEGATIVE N code = 63728-2) KETONES; Normal (test NEGATIVE NEGATIVE N code = 09537-8) OCCULT BLOOD; Normal NEGATIVE NEGATIVE N (test code = 50791-5) PROTEIN; Abnormal (test 2+ NEGATIVE A code = 57592-6) NITRITE (test code = NEGATIVE NEGATIVE N NITRITE) LEUKOCYTE ESTERASE 2+ NEGATIVE A (test code = LEUKOCYTE ESTERASE) WBC; Abnormal (test 6-10 < OR = 5 A code = 6690-2) RBC; Normal (test code 0-2 < OR = 2 N = 789-8) SQUAMOUS EPITHELIAL 6-10 < OR = 5 A CELLS; Abnormal (test code = 25521-2) BACTERIA; Abnormal FEW NONE SEEN A (test code = 630-4) CALCIUM OXALATE MODERATE NONE OR FEW A CRYSTALS; Abnormal (test code = 76405-1) TRIPLE PHOSPHATE MANY NONE OR FEW A CRYSTALS; Abnormal (test code = 5814-9) HYALINE CAST; Normal NONE SEEN NONE SEEN N (test code = 65597-9) NOTE (test code = NOTE) See Below This urine was analyzed for th e presence of WBC , RBC, bacteria, casts, and othe r formed elements . Only those [place] ents seen were repor alda. [facility][Q] REFLEXIVE URINE [id number] 12:16:00 Test Item Value Reference Range Interpretation Comments REFLEXIVE URINE See Below CULTURE ALEXSANDER CATED - CULTURE (test code = RESULTS TO FOLLOW REFLEXIVE URINE CULTURE) [facility][QL] CULTURE, URINE, [id number] 12:16:00 Test Item Value Reference Range Interpretation Comments CULTURE (test code = See Comment CULTURE , URINE, CULTURE) ROUTINE Praveen ro Number: [id number] Test Status: Final Specimen Source: URINE Specimen Qualit y: Adequate Resul t: Upon furt her incubation: Growth of mixed alvarez was isolated, sugge sting probable contamination. No further testing will be performed. If clinically alexsander cated, recollection us ing a method to minim ize contamination, with prompt transfer to Urine Culture Jennings sport Tube, is recomm ended. [facility] Digital Mammo Screen Chepe w myra [id number] 10:37:00 BILATERAL FIRST EVER DIGITAL SCREENING MAMMOGRAM 3D/2D WITH [...] mammogram is recommended.(05/25/2021) This exam was interpreted [id number] for [facility]. Lino philip/penrad:05/24/2020 11:22:10 Tester Equipment(s): RT Agueda(Bouchra)(M), [facility] sent: BI-RADS 1/2 Mammogram BI-RADS: 2 Benign--Read by: Lino Levi MDDictated Date/time: 05/24/20 11:22Electronically Signed by: Lino Levi MD 05/24/2011:22FINAL REPORT[facility][Q] CALCIUM 2020-05-01 14:46:00 Test Item Value Reference Range Interpretation Comments CALCIUM (test code = CALCIUM) 9.4 mg/dl 8.6-10.2 N [facility][QL] URIC [id number] 14:46:00 Test Item Value Reference Range Interpretation Comments URIC ACID; Normal 3.9 mg/dl 2.5-7.0 N Therapeuti c target for (test code = 3086-6) gout pa tients: <6.0 mg/dL [facility][QL] VITAMIN D, 25 HYDROXY AND 1,25 DIHYDROXY, LC/MS/[id number] 14:46:00 Test Item Value Reference Range Interpretation [...] ethere is any concern. Juan MF, Travis NC, Muna hernadez JOHNSON, et al., Evaluation , treatment,and p revention of vitamin D defic iency: an EndocrineSociet y clinical practice guidel ine. J Clin.Endocrinol . Metab. 2011;96(7):1911 -30. VITAMIN D, 40 ng/ml Reference Range Not 25-OH, D3 (test established This test was code = VITAMIN developed and its analytical D, 25-OH, D3) performance ch aracteristics have been deter mined by [facility]. It has not been cleared or appr ivana by theFDA. This as say has been validated pursu ant to the CLIA regulation s and is used for clinical pu rposes. VITAMIN D, <4 Reference Range Not 25-OH, D2 (test established This test was code = VITAMIN developed and its analytical D, 25-OH, D2) performance ch aracteristics have been deter mined by [facility]. It has not been cleared or appr ivana by theFDA. This as say has been validated pursu ant to the CLIA regulation s and is used for clinical pu rposes.See Note 1 Note 1 F or additional information, pl ease refer to http://[employer]/faq/FA Q199 (This link is being p rovided [...] efrain racteristics have been deter mined by [facility]. It has not been cleared or appr ivana by theFDA. This as say has been validated pursu ant to the CLIA regulation s and is used for clinical pu rposes. Note 2 For additional information, please refer to http://[employer]/faq/FA Q199 (This link is being p rovided for informational/e ducational purposes only.) [facility][QL] PTH-RELATED PROTEIN (PTH-RP)2020-05-01 14:46:00 Test Item [...] analytical performancechar acteristics have been determined [facility] . It has not beencleared or approved by FDA. This assay has been validatedpursua nt to the CLIA regulations and is used for clinicalpurpose s. [facility]. [facility] - [id number] 00:00:00 Test Item Value Reference Range Interpretation Comments Case (test code = Click ImageLink button N Case) for report. [facility]] CBC (INCLUDES DIFF/PLT)2018-12-23 13:20:01 Test Item Value Reference Range Interpretation Comments WBC (test code = 8.9 {K/CMM} 3.7-10.4 6690-2) RBC (test code = 4.90 {M/CMM} 4.20-5.40 789-8) Hgb; Below Low 11.1 g/dl 12.0-16.0 Threshold (test code = 718-7) Hct; Below Low 34.8 % 36.0-48.0 Threshold (test code = 45280-1) MCV; Below Low 71.1 fL 80.0-98.0 Threshold (test code = 787-2) MCH; Below Low 22.8 pg 27.0-31.0 Threshold (test code = 785-6) MCHC (test code = 32.0 g/dl 32.0-36.0 786-4) RDW; Above High 25.0 % 11.5-14.5 Threshold (test code = 788-0) Platelet (test code See Note 133-450 Platelet s clumped in = 87606-7) EDTA, unable to estimate, kayleen st recollection in a bluetop tube wi th an order for "Blue Top Platelet Count" Mean Platelet 8.6 fL 7.4-10.4 Volume (test code = 61298-4) [facility]] [id number] 13:20:01 Test Item Value Reference Range Interpretation Comments Segmented Neutrophils (test code 66.6 % 45.0-75.0 = 50071-2) Monocytes (test code = 13679-3) 8.6 % 2.0-12.0 Lymphocytes (test code = 28731-8) 21.0 % 20.0-40.0 Eosinophils (test code = 95264-3) 3.2 % 0.0-4.0 Basophils (test code = 706-2) 0.6 % 0.0-1.0 Segs-Bands # (test code = 5.9 {K/CMM} 1.5-8.1 46082-9) Lymphocytes # (test code = 1.9 {K/CMM} 1.0-5.5 76416-2) Monocytes # (test code = 20675-3) 0.8 {K/CMM} 0.0-0.8 Eosinophils # (test code = 0.3 {K/CMM} 0.0-0.5 58317-3) Basophils # (test code = 48858-0) 0.1 {K/CMM} 0.0-0.2 Plt Morphology (test code = Plt Clumped Normal Morphology) Anisocyte; Abnormal (test code = 1+ None Seen A 82659-6) Microcyte (test code = Microcyte) 2+ None Seen A [facility]] CULTURE, URINE, [id number] 13:20:01 Test Item Value Reference Range Interpretation Comments ORGANISM (test Acinetobacter code = 699-9) baumanniiEnterococcus Species FINAL REPORT 50,000 - 100,000 CFU/mL (test code = Acinetobacter baumannii , FINAL REPORT) Multi-drug Resistant Ewgkevqp78,000 - 50,000 CFU/mL Enterococcus Species 10,000 - 50,000 CFU/mL Yeast [facility][H] [id number] 13:20:01 Test Item Value Reference Range Interpretation Comments ORGANISM (test code = Enterococcus 699-9) Species Ampicillin (test code - S = Ampicillin) Levofloxacin (test - R code = Levofloxacin) Nitrofurantoin (test - S code = Nitrofurantoin) Tetracycline (test - R code = Tetracycline) Vancomycin (test code SEE NOTES S S= Roxanne ceptible, = Vancomycin) R= Resistant, I= Intermediate, N/A= Not Applicable [facility][H] [id number] 13:20:01 Test Item Value Reference Range Interpretation [...] Tobramycin (test code = <=4 S Tobramycin) [facility][H] [id number] 13:20:01 Test Item Value Reference Range Interpretation Comments ORGANISM (test code = Acinetobacter baumannii 699-9) Colistin (test code = .38 S Colistin) Minocycline (test code 1.5 S = Minocycline) [facility] Pelvis with and without contrast [id number] 10:08:00 Clinical indication: R58- excessive bleedingComparison: CT abdomen pelvis 04/12/2018TECHNIQUE: Multiplanar and multisequence magnetic resonance imaging of thepelvis were obtained with and without IV contrast.IV contrast: 13 mL DotaremFINDINGS:The inferior most portion of the pelvis including portions of the vagina andanal canal were not included on the scan field of view.Reproductive organs: The uterus is anteverted. There are multiple X2pxxlkuaffnf uterine fibroids. A 5.1 x 4.2 x [...] greater trochanteric bursitis.7. Left lower quadrant colostomy.SL: [id number] by: Teresa Newsome MDDictated Date/time: 12/06/18 13:39Electronically Signed by: Teresa Newsome MD 12/06/1912:56FINAL REPORT [facility]] CMP [id number] 11:27:01 Test Item Value Reference Range Interpretation Comments Sodium Level 137 {mEq/l} 135-145 (test code = 2951-2) Potassium Level 4.2 {mEq/l} 3.5-5.1 (test code = 2823-3) Chloride Level 104 {mEq/l} 95-109 (test code = 5-0) Carbon Dioxide 24 {mEq/l} 24-32 (test code = 2027-) AGAP (test code = 13.2 {mEq/l} 10.0-20.0 30328-7) Glucose Lvl (test 95 mg/dl 70-99 Adult refe rence range code = 2345-7) values reflec t the clinical guidel inesof the [place] Diabet es Association. Creatinine Lvl 0.80 mg/dl 0.50-1.40 (test code = 2160-0) Blood Urea 14 mg/dl 7-22 Nitrogen (test code = 3094-0) BUN/Creatinine 18 6-25 Ratio (test code = 3097-3) Total Protein; 9.1 g/dl 6.4-8.4 Above High Threshold (test code = 2885-2) Albumin Lvl (test 3.7 g/dl 3.5-5.0 code = 1751-7) Globulin; Above 5.4 g/dl 2.7-4.2 High Threshold (test code = 76585-6) A/G Ratio (test 0.7 0.7-1.6 code = 1759-0) Calcium Level 9.9 mg/dl 8.5-10.5 Total (test code = 18353-9) ALT (test code = 23 u/l 0-65 1743-4) AST (test code = 17 u/l 0-37 98205-3) Bili Total (test 0.2 mg/dl 0.2-1.3 code = 1975-2) Alk Phos (test 77 u/l 39-136 code = 1783-0) eGFR (test code = 107 The eGFR i s calculated 43569-6) {ML/MIN/1.7} using the CKD-E PI formula. In [...] be multiplied by t he estimated BMI. [facility]] CBC (INCLUDES DIFF/PLT)2018-11-28 11:27:01 Test Item Value Reference Range Interpretation Comments WBC (test code = 9.4 {K/CMM} 3.7-10.4 6690-2) RBC (test code = 5.19 {M/CMM} 4.20-5.40 789-8) Hgb; Below Low 11.6 g/dl 12.0-16.0 Threshold (test code = 718-7) Hct (test code = 36.4 % 36.0-48.0 26459-2) MCV; Below Low 70.1 fL 80.0-98.0 Threshold (test code = 787-2) MCH; Below Low 22.4 pg 27.0-31.0 Threshold (test code = 785-6) MCHC; Below Low 31.9 g/dl 32.0-36.0 Threshold (test code = 786-4) RDW; Above High 30.7 % 11.5-14.5 Threshold (test code = 788-0) Platelet (test code See Note 133-450 Platelet s clumped in = 52041-5) EDTA, unable to estimate, sugge st recollection in a bluetop tube wi th an order for "Blue Top Platelet Count" Mean Platelet 8.2 fL 7.4-10.4 Volume (test code = 85173-0) [facility]] CULTURE, URINE, [id number] 11:27:01 Test Item Value Reference Range Interpretation Comments FINAL REPORT (test Specimen contains 3 or code = FINAL more potential pathogens; REPORT) recommend correlation withurinalysis; if catheterized specimen recommend removal and recollection. Ifclinical situation warrants please call the laboratory for further testing. COMicrobiology [phone]. [facility]iciansSURGICALLY OBTAINED CULTURE + GRAM [id number] 12:12:00 Test Item Value Reference Range Interpretation [...] No Interpretations Established <0 or >4 ANAEROBIC [id number] 05:31:00 Test Item Value Reference Range Interpretation Comments CULTURE (BEAKER) (test No anaerobes isolated code = 1095) URINE [id number] 11:06:00 Test Item Value Reference Range Interpretation [...] = 25) Resistant <0 or >4 URINE [id number] 11:03:00 Test Item Value Reference Interpretation Comments Range CULTURE (AgariAKER) (test ENTEROCOCCUS A >100, 000 col/mL code = 1095) SPECIES Enterococcus species Ampicillin (test code S = 26) Linezolid (test code = S 40) Nitrofurantoin (test S code = 23) Tetracycline (test R code = 2) Vancomycin (test code S = 13) CULTURE (Oriense) (test ESCHERICHIA COLI A 5 0-59,000 col/mL [...] Dr. lopez request for avycaz and zerbaxaCT, [id number] 07:41:00FINAL REPORT INDICATION:37-year-old female status post recent [...] sided urinary stones. Signed: Zoraida BoydMDReport Verified Date/Time: 06/29/2018 07:41:57 Reading Location: [facility] Diagnostic Imaging Reading Room - [place] [address] W/PLT COUNT & AUTO [id number] 07:07:00 Test Item Value Reference Range Interpretation [...] (BEAKER) (test code = 2801) BASIC METABOLIC [id number] 06:01:00 Test Item Value Reference Range Interpretation [...] PATIEN TS. CBC W/PLT COUNT & AUTO [id number] 22:22:00 Test Item Value Reference Range Interpretation [...] (BEAKER) (test code = 2801) BASIC METABOLIC [id number] 21:08:00 Test Item Value Reference Range Interpretation [...] I S NOT APPLICABLE FOR DIALYSIS PATIEN RAD, CHEST, 1 VIEW, NON [id number] 13:37:00Reason for exam:->eval for pneumothoraxReason for exam:->in [...] MDReport Verified Date/Time: 06/28/2018 13:37:49 Reading Location: [facility] Radiology Reading Room CBC W/PLT COUNT & AUTO [id number] 09:50:00 Test Item Value Reference Range Interpretation [...] PERCENT (BEAKER) (test code = 2801) [place], SOLDERER ASSEMBLER IN OR/30 MINUTE [id number] 09:43:00Reason for exam:- >PCNLIs the patient ?->NoWhen [...] 8 static images were acquired. Signed: Elena Pulido Verified Date/Time: 06/28/2018 09:43:00 Reading Location:[facility] Radiology Reading Room 09:43 AMBASIC METABOLIC [id number] 07:59:00 Test Item Value Reference Range Interpretation [...] APPLICABLE FOR DIALYSIS PATIEN TS. HEMOGLOBIN AND [id number] 14:41:00 Test Item Value Reference Range Interpretation Comments HEMOGLOBIN (BEAKER) (test code = 6.5 GM/DL 11.2-15.7 L 410) HEMATOCRIT (BEAKER) (test code = 23.1 % 34.1-44.9 L 411) BASIC METABOLIC [id number] 08:36:00 Test Item Value Reference Range Interpretation [...] PATIEN TS. CBC W/PLT COUNT & AUTO [id number] 05:49:00 Test Item Value Reference Range Interpretation [...] (BEAKER) (test code = 2801) HEMOGLOBIN AND [id number] 14:34:00 Test Item Value Reference Range Interpretation Comments HEMOGLOBIN (BEAKER) (test code = 7.0 GM/DL 11.2-15.7 L 410) HEMATOCRIT (BEAKER) (test code = 24.7 % 34.1-44.9 L 411) CBC W/PLT COUNT & AUTO [id number] 10:55:00 Test Item Value Reference Range Interpretation [...] (BEAKER) (test code = 2801) BASIC METABOLIC [id number] 06:21:00 Test Item Value Reference Range Interpretation [...] PATIEN TS. CBC W/PLT COUNT & AUTO [id number] 14:39:00 Test Item Value Reference Range Interpretation [...] = 2801) RAD, CHEST, 1 VIEW, NON [id number] 10:16:00Reason for exam:->Post Power PICC insertion RUE for tip verificationShould this be performed at the bedside?->YesFINAL REPORT AP chest HISTORY: PICC placement COMPARISON: None IMPRESSION:Right arm PICC present with tip at upper SVC. SVC filter present. 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 Grossly normal cardiac silhouette. Right lung clear. Moderate left effusion. Signed: Satish Lancaster MDReport VerifiedDate/Time: 06/25/2018 10:16:18 Reading Location: [facility] C013X Ortho Consult Reading Room BASIC METABOLIC [id number] 09:58:00 Test Item Value Reference Range Interpretation [...] PATIEN TS. CBC W/PLT COUNT & AUTO [id number] 13:38:00 Test Item Value Reference Range Interpretation [...] (BEAKER) (test code = 2801) BASIC METABOLIC [id number] 13:03:00 Test Item Value Reference Range Interpretation [...] PATIEN TS. BODY FLUID CULTURE + GRAM [id number] 16:53:00 Test Item Value Reference Interpretation Comments [...] blood (BEAKER) (test code = cells seen 550416) URINE [id number] 10:14:00 Test Item Value Reference Range Interpretation [...] Vancomycin (test code S = 13) BLOOD [id number] 11:00:00 Test Item Value Reference Range Interpretation Comments CULTURE (BEAKER) (test No growth in 5 days code = 1095) BLOOD [id number] 06:00:00 Test Item Value Reference Range Interpretation Comments CULTURE (BEAKER) (test No growth in 5 days code = 1095) BASIC METABOLIC [id number] 04:43:00 Test Item Value Reference Range Interpretation [...] DIALYSIS PATIEN TS. URINALYSIS W/ REFLEX URINE [id number] 15:11:00 Test Item Value Reference Range Interpretation Comments COLOR (BEAKER) (test code = 470) [place] CLARITY (BEAKER) (test code = 469) Hazy [...] code = 2795) ANG, NEPHROSTOMY, PERC, EXTERNAL [id number] 13:43:00Reason for exam:- >right obstructing stone with UTI, needs right PCNU if possible or PCN if not FINAL REPORT Fluoroscopic and ultrasound guided right nephroureterostomy tube placement, 06/12/2018. Clinical History: Obstructing stone at the junction of the right distal ureter and ileoconduit with hydronephrosis and urosepsis. Patient has a history of spina bifida/caudal re gression. Modality: Sonography and fluoroscopy Medical Technologist Blood Bank: Faisal Herbert MD. Information Technology Manager: None. Sedation: General anesthesia provided by [...] then removed. The tract wasdilated to 8 Bulgarian. An 8.5 Bulgarian by 28 cm nephroureterostomy catheter was then [...] guided right nephroureterostomy tube placement. Signed: Faisal Herbert Verified Date/Time: 06/12/2018 13:43:17 Reading Location: [facility] P048 Angio Body Reading Room (HEMOGRAM ONLY)2018-06-12 [...] and blue (Citrate) tube. spoke to RN ID:[id number] NUCLEATED RED BLOOD 0 /100 WBC 0-0 CELLS (BEAKER) (test code = 413) BASIC METABOLIC [id number] 06:52:00 Test Item Value Reference Range Interpretation [...] S NOT APPLICABLE FOR DIALYSIS PATIEN TS. [id number] 06:37:00 Test Item Value Reference Range Interpretation Comments PROTIME (KATY) (test code = 14.4 seconds 11.7-14.7 759) INR (KATY) (test code = 370) 1.1 <=5.9 PARTIAL THROMBOPLASTIN TIME 30.8 seconds 22.5-36.0 (BEAKER) (test code = 760) RECOMMENDED COUMADIN/WARFARIN INR THERAPY RANGESSTANDARD DOSE: 2.0 - 3.0 Includes: PROPHYLAXIS forvenous thrombosis, systemic embolization; TREATMENT for venous thrombosis and/or pulmonary embolus.HIGH RISK: Target INR is 2.5-3.5 for patients with mechanical heart valves.CT, [id number] 18:04:00FINAL REPORT CT scan of the abdomen [...] is a perineal decubitus ulcer. Signed: Alma Russo MDReport Verified Date/Time: 06/11/2018 18:04:02 Reading Location: [facility] C013X Ortho Consult Reading Room PREGNANCY SCREEN, [id number] 15:46:00 Test Item Value Reference Range Interpretation Comments TEST URINE (BEAKER) (test Negative code = 583) URINALYSIS W/ REFLEX URINE [id number] 12:32:00 Test Item Value Reference Range Interpretation [...] SOURCE(BEAKER) (test code = 2795) URINALYSIS W/ [id number] 12:32:00 Test Item Value Reference Range Interpretation [...] code = Urine, Urostomy 2795) BASIC METABOLIC [id number] 06:01:00 Test Item Value Reference Range Interpretation [...] DIALYSIS PATIEN TS. LACTIC ACID, VENOUS, WHOLE [id number] 05:31:00 Test Item Value Reference Range Interpretation Comments LACTATE BLOOD VENOUS (2) (BEAKER) 0.8 mmol/L 0.5-2.2 (test code = 2872) Effective 01/01/2016: Units/Reference Range ChangeNew: 0.5-2.2 mmol/L Previous: 5-20 mg/[id number] 05:20:00 Test Item Value Reference Range Interpretation Comments PARTIAL THROMBOPLASTIN TIME 35.9 seconds 22.5-36.0 (BEAKER) (test code = 760) PROTHROMBIN [id number] 05:19:00 Test Item Value Reference Range Interpretation [...] code = 2801) LACTIC ACID, ARTERIAL, WHOLE [id number] 02:05:00 Test Item Value Reference Range Interpretation Comments LACTATE BLOOD 0.6 mmol/L 0.5-2.2 Specimen sligh tly ARTERIAL (2) (BEAKER) hemoly zed (test code = 2874) Effective 01/01/2016: Units/Reference Range ChangeNew: 0.5-2.2 mmol/L Previous: 5-20 mg/[id number] 01:43:00 Test Item Value Reference Range Interpretation Comments MAGNESIUM (BEAKER) 2.0 mg/dL 1.6-2.6 Specimen moderately (test code = 627) hemolyzed [id number] 01:43:00 Test Item Value Reference Range Interpretation Comments PHOSPHORUS (BEAKER) 3.0 mg/dL 2.3-4.7 Specimen moderately (test code = 604) hemolyzed COMPREHENSIVE METABOLIC [id number] 01:43:00 Test Item Value Reference Range Interpretation [...] PATIEN TS. CBC W/PLT COUNT & AUTO [id number] 01:20:00 Test Item Value Reference Range Interpretation [...] CT Abd Renal Protocol w/wo IV contrast [id number] 11:17:00Study: Abd Renal Protocol w/wo IV contrast [...] nonobstructive right nephrolithiasis.4. Moderate-sized left pleural effusion.SL: [id number] by: Faisla Calvertictated Date/time: 06/02/18 12:50Electronically Signed by: Faisal Calvert MD 06/02/1813:00FINAL REPORTUT Physicians[H] C Urine [id number] 16:33:01 Test Item Value Reference Range Interpretation Comments ORGANISM (test code Escherichia = 699-9) coliEnterococcus Species FINAL REPORT (test >100,000 CFU/mL code = FINAL Escherichia coli 50,000 - REPORT) 100,000 CFU/mL Enterococcus Species .<10,000 CFU/mL Skin Alvarez [facility][H] [id number] 16:33:01 Test Item Value Reference Range Interpretation [...] Tetracycline (test code = - S Tetracycline) [facility][H] [id number] 16:33:01 Test Item Value Reference Range Interpretation Comments ORGANISM (test code = Enterococcus 699-9) Species Ampicillin (test code - S = Ampicillin) Levofloxacin (test - R code = Levofloxacin) Nitrofurantoin (test - S code = Nitrofurantoin) Tetracycline (test - R code = Tetracycline) Vancomycin (test code SEE NOTES S S= Roxanne ceptible, = Vancomycin) R= Resistant, I= Intermediate, N/A= Not Applicable [facility][H] Culture: Wound/Abscess w/Gram [id number] 16:33:01 Test Item Value Reference Range Interpretation Comments Gram St (test code Moderate WBC's Moderate = Gram St) Gram Negative Rods Moderate Gram Positive Cocci InClusters ORGANISM (test code Escherichia = 699-9) coliEnterococcus SpeciesProteus vulgaris FINAL REPORT (test Many Escherichia coli Many code = FINAL Enterococcus Species REPORT) Moderate Proteus vulgaris [facility][H] [id number] 16:33:01 Test Item Value Reference Range Interpretation [...] S e (test code = Trimethoprim/Sulfamethoxazol e) [facility][H] [id number] 16:33:01 Test Item Value Reference Range Interpretation Comments ORGANISM (test code = Enterococcus Species 699-9) Ampicillin (test code = <=2 S Ampicillin) Vancomycin (test code = 2 S Vancomycin) [facility][H] [id number] 16:33:01 Test Item Value Reference Range Interpretation [...] Trimethoprim/Sulfamet Interm ediate, hoxazole) N/A= Not Applicable [facility]] CALCIUM, [id number] 13:50:01 Test Item Value Reference Range Interpretation Comments Ca Ion Serum (test code = 1994-) 1.28 mmol/L 1.00-1.38 Ca Norm Serum (test code = Ca 1.28 mmol/L 1.00-1.38 Norm Serum) [facility]] BUN/CREATININE RATIO [id number] 13:50:01 Test Item Value Reference Range Interpretation Comments Blood Urea 12 mg/dl 7-22 Nitrogen (test code = 3094-0) Creatinine Lvl 0.70 mg/dl 0.50-1.40 (test code = 2160-0) eGFR (test code = 110 The eGFR i s calculated 38530-6) {ML/MIN/1.7} using the CKD-E PI formula. In [...] be multiplied by t he estimated BMI. [facility][QH] [id number] 13:50:01 Test Item Value Reference Range Interpretation Comments Calcium Level Total (test code = 9.5 mg/dl 8.5-10.5 62051-0) [facility][QL] PTH, INTACT (WITHOUT CALCIUM)2018-05-11 13:50:01 Test Item Value Reference Range Interpretation Comments Parathyroid Hormone Intact (test 64.7 pg/ml 18.4-80.1 code = 2731-8) [facility][QLH] CBC (INCLUDES DIFF/PLT)2018-05-11 13:50:01 Test Item Value Reference Range Interpretation Comments WBC (test code = 9.3 {K/CMM} 3.7-10.4 6690-2) RBC (test code = 5.02 {M/CMM} 4.20-5.40 789-8) Hgb; Below Low 11.5 g/dl 12.0-16.0 Threshold (test code = 718-7) Hct; Below Low 35.7 % 36.0-48.0 Threshold (test code = 86248-9) MCV; Below Low 71.2 fL 80.0-98.0 Threshold (test code = 787-2) MCH; Below Low 22.9 pg 27.0-31.0 Threshold (test code = 785-6) MCHC (test code = 32.1 g/dl 32.0-36.0 786-4) RDW; Above High 22.8 % 11.5-14.5 Threshold (test code = 788-0) Platelet (test code See Note 133-450 Platelet s clumped in = 67125-7) EDTA, unable to estimate, sugabisai st recollection in a bluetop tube wi th an order for "Blue Top Platelet Count" Mean Platelet 8.9 fL 7.4-10.4 Volume (test code = 35887-6) [facility]] [id number] 13:50:01 Test Item Value Reference Range Interpretation Comments Segmented Neutrophils (test code 63.0 % 45.0-75.0 = 72674-7) Monocytes (test code = 81044-0) 9.5 % 2.0-12.0 Lymphocytes (test code = 33973-2) 23.6 % 20.0-40.0 Eosinophils (test code = 65082-3) 3.4 % 0.0-4.0 Basophils (test code = 706-2) 0.5 % 0.0-1.0 Segs-Bands # (test code = 5.9 {K/CMM} 1.5-8.1 19414-6) Lymphocytes # (test code = 2.2 {K/CMM} 1.0-5.5 61729-6) Monocytes #; Above High Threshold 0.9 {K/CMM} 0.0-0.8 (test code = 48505-6) Eosinophils # (test code = 0.3 {K/CMM} 0.0-0.5 41515-8) Plt Morphology (test code = Plt Clumped Morphology) Anisocyte; Abnormal (test code = 1+ None Seen A 82723-4) Microcyte (test code = Microcyte) 2+ None Seen A [facility]] VITAMIN D, 25-HYDROXY, LC/MS/[id number] 13:50:01 Test Item Value Reference Range Interpretation Comments Vitamin D, 25-OH, 33.5 ng/ml 30.0-100.0 Reference range is based Total (test code on recommen dations in the = Vitamin D, [facility] y Clinical 25-OH, Total) Practice Guide line (J Clin Endocrinol Xfdef0631;96:19 11-1930) [facility]
[2022-02-23 06:10] LABS: Absolute Lymphocytes (CBC) 1.6 K/uL (0.7-4.9); Hematocrit 36.4 % (36.0-45.0); Lymphocytes % 11.5 % (15.3-44.8); MCV 72.9 fL (80-100)
[2022-02-23 06:38] LABS: Albumin 3.8 g/dL (3.4-5.0); Bilirubin Total 0.4 mg/dL (0.2-1.0); Potassium 3.8 mmol/L (3.5-5.1); Protein, Total 9.8 g/dL (6.4-8.2)
[2022-02-23] MEDS ORDERED: HYDROMORPHONE HCL 1 MG/ML INJ ONE ×3 (06:38→14:10)
[2022-02-23] MEDS ORDERED: ONDANSETRON 4 MG/2 ML VIAL ONE (06:38)
[2022-02-23] MEDS ORDERED: NA CHLORIDE 0.9% 1,000 ML ONE (06:38)
[2022-02-23 07:25] LABS: Urine Blood 1+ (Negative); Urine Glucose Negative (Negative); Urine Protein 2+ (Negative); Urine Specific Gravity 1.025 (1.005-1.030)
[2022-02-23 07:38] LABS: Platelet Estimate INCR
[2022-02-23 07:41] LABS: Anisocytosis 1+; Blood Morphology Comment NOTED (NOT SEEN)
[2022-02-23 07:42] LABS: Hypochromasia 2+; Poikilocytosis SLIGHT; Polychromasia SLIGHT
--- NOTE | 2022-02-23 08:31 | RAD REPORT ---
EXAM DESCRIPTION: CT - Abdomen Pelvis W Contrast - 02/23/2022 8:07 am CLINICAL HISTORY: Abdominal pain COMPARISON: 2020 TECHNIQUE: Computed axial tomography of the abdomen pelvis was obtained. 100 cc Isovue-300 was admin istered intravenously. Oral contrast was not requested which limits evaluation of bowel and appendix All CT scans are performed using dose optimization technique as appropriate and may include automated exposure control or mA/KV adjustment according to patient size. FINDINGS: Liver, spleen, pancreas and adrenals unremarkable Staghorn calculus right kidney with renal cortical thinning. No significant hydronephrosis. Small left renal calculi. Mild left hydronephrosis. Left renal/ureteral calculus is not seen. Ileal c onduit right lower quadrant Multiple loops of jejunum and ileum are moderately dilated. The distal ileum is decompressed. Fibroid uterus. IUD in place. Spina bifida Chronic moderate left pleural effusion with ventricular pleural shunt Chronic soft tissue thickening involves the perirectal tissues and adjacent subcutaneous tissues Left lower quadrant colostomy IMPRESSION: Moderate dilatation of multiple small bowel loops likely an obstruction.
--- NOTE | 2022-02-23 08:59 | EDPHYS ---
Physician Documentation [facility] Name: Leila Aquino Age: 41 yrs Sex: Female : 1980 Arrival Date: 02/23/2022 Time: 04: Bed 13 Private MD: ED Physician Pino Hwang HPI: 02/23 05:10 This 41 yrs old Black Female presents to ER via EMS with complaints of Abdominal mh7 pain.Vomiting. 05:10 The patient presents with abdominal pain that is diffuse. mh7 05:10 Onset: The symptoms/episode began/occurred 2 day(s) ago. The symptoms do not radiate. mh7 Associated signs and symptoms: Pertinent positives: nausea and vomiting, Pertinent negatives: anorexia, blood in stools, chest pain, constipation, diarrhea, fever, headache, hematuria, palpitations, shortness of breath, vaginal discharge, vomiting blood. The symptoms are described as intermittent, vague, waxing/waning. Modifying factors: The symptoms are alleviated by nothing, the symptoms are aggravated by nothing. Severity of pain: At its worst the pain was moderate yesterday, in the emergency department the pain has improved moderately. 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 Pneumococcal vaccine is up to date, Flu vaccine is not up to date. - Social history:: Smoking status: Patient denies any tobacco usage or history of. ROS: 05:10 Constitutional: Negative for fever, chills, and weight loss, Eyes: Negative for injury, mh7 pain, redness, and discharge, Neck: Negative for injury, pain, and swelling, Cardiovascular: Negative for chest pain, palpitations, and edema, Respiratory: Negative for shortness of breath, cough, wheezing, and pleuritic chest pain, Back: Negative for injury and pain, : Negative for injury, bleeding, discharge, and swelling, MS/Extremity: Negative for injury and deformity, Skin: Negative for injury, rash, and discoloration, Psych: Negative for depression, anxiety, suicide ideation, homicidal ideation, and hallucinations, Allergy/Immunology: Negative for hives, rash, and allergies, Endocrine: Negative for neck swelling, polydipsia, polyuria, polyphagia, and marked weight changes, Hematologic/Lymphatic: Negative for swollen nodes, abnormal bleeding, and unusual bruising. Exam: 05:10 Constitutional: This is a well developed, well nourished patient who is awake, alert, mh7 and in no acute distress. Head/Face: Normocephalic, atraumatic. Eyes: Pupils equal round and reactive to light, extra-ocular motions intact. Lids and lashes normal. Conjunctiva and sclera are non-icteric and not injected. Cornea within normal limits. Periorbital areas with no swelling, redness, or edema. Neck: Trachea midline, no thyromegaly or masses palpated, and no cervical lymphadenopathy. Supple, full range of motion without nuchal rigidity, or vertebral point tenderness. No Meningismus. Chest/axilla: Normal chest wall appearance and motion. Nontender with no deformity. No lesions are appreciated. 05:10 Respiratory: Lungs have equal breath sounds bilaterally, clear to auscultation and percussion. No rales, rhonchi or wheezes noted. No increased work of breathing, no retractions or nasal flaring. 05:10 Back: No spinal tenderness. No costovertebral tenderness. Full range of motion. Skin: Warm, dry with normal turgor. Normal color with no rashes, no lesions, and no evidence of cellulitis. MS/ Extremity: Pulses equal, no cyanosis. Neurovascular intact. Full, normal range of motion. Psych: Awake, alert, with orientation to person, place and time. Behavior, mood, and affect are within normal limits. 05:10 Cardiovascular: Rate: tachycardic, Rhythm: regular, Pulses: no pulse deficits are appreciated, Heart sounds: normal, normal S1and S2, Edema: is not appreciated, JVD: is not appreciated. 05:10 Abdomen/GI: Inspection: obese Bowel sounds: normal, in all quadrants, Palpation: moderate abdominal tenderness, in all quadrants, mass, is not appreciated, rebound tenderness, is not appreciated, voluntary guarding, is not appreciated, involuntary guarding, is not appreciated, Indicators: McBurney's point is not tender, Augustin's sign is negative, Rovsing's sign is negative, Obturator sign is negative, Psoas sign is negative, Liver: no appreciated palpable abnormalities, Hernia: not appreciated. Vital Signs: 04:27 Weight 72.57 kg; Height 5 ft. 0 in. (152.40 cm); Pain 7/10; vc1 05:00 BP 147 / 109; Pulse 125; Resp 18; Temp 99.0(O); Pulse Ox 99% on R/A; Weight 72.57 kg; vc1 Height 5 ft. 0 in. (152.40 cm); Pain 7/10; 05:00 Body Mass Index 31.25 (72.57 kg, 152.40 cm) vc1 MDM: 07:24 Transition of care: After a detail discussion of the patient's case, care is 7 transferred to Pino Hwang MD. 08:37 Patient medically screened. rn 08:57 Differential diagnosis: gastritis, gastroesophageal reflux disease, non-specific abd rn pain, pancreatitis, Peptic Ulcer Disease, Pyelonephritis, Ureterolithiasis, urinary tract infection. Data reviewed: vital signs, nurses notes, lab test result(s), radiologic studies, CT scan, and as a result, I will admit patient. Counseling: I had a detailed discussion with the patient and/or guardian regarding: the historical points, exam findings, and any diagnostic results supporting the discharge/admit diagnosis, lab results, radiology results, the need for further work-up and treatment in the hospital. Response to treatment: the patient's symptoms have mildly improved after treatment, and as a result, I will admit patient. 09:00 ED course: Dr. Chappell in OR, OR nurse passed along consult. . rn 02/23 05:22 Order name: CBC with Diff; Complete Time: 08:05 [facility] 02/23 05:22 Order name: CMP; Complete Time: 06:40 [facility] 02/23 05:22 Order name: Lipase; Complete Time: 06:40 [facility] 02/23 05:22 Order name: Urine Culture [facility] 02/23 05:22 Order name: Lactate; Complete Time: 06:40 [facility] 02/23 05:22 Order name: Blood Culture Adult (2) [facility] 02/23 05:23 Order name: COVID-19 SARS RT PCR (Document "Date of Onset" if Symptomatic); Complete [facility] Time: 10:28 02/23 07:26 Order name: Urine Dipstick-Ancillary; Complete Time: 08:05 [facility] 02/23 07:38 Order name: Manual Differential; Complete Time: 08:05 [facility] 02/23 15:24 Order name: CBC with Automated Diff [facility] 02/23 15:24 Order name: CBC with Automated Diff [facility] 02/23 15:24 Order name: Comprehensive Metabolic Panel [facility] 02/23 15:24 Order name: Comprehensive Metabolic Panel [facility] 02/23 15:24 Order name: Magnesium [facility] 02/23 05:22 Order name: IV Saline Lock; Complete Time: 12:14 [facility] 02/23 05:22 Order name: Labs collected and sent; Complete Time: 12:14 [facility] 02/23 05:22 Order name: Urine Dipstick-Ancillary (obtain specimen); Complete Time: 12:14 [facility] 02/23 06:42 Order name: CT Abd/Pelvis - IV Contrast Only; Complete Time: 08:38 [facility] 02/23 15:22 Order name: CONS Physician Consult [facility] 02/23 15:24 Order name: NPO [facility] 02/23 15:24 Order name: Magnesium [facility] 02/23 05:22 Order name: Urine Test (obtain specimen); Complete Time: 12:14 [facility] 02/23 05:22 Order name: EKG - Nurse/Tech [facility] Administered Medications: 06:35 Drug: NS 0.9% 1000 ml Route: IV; Rate: 1 bolus; Site: left upper arm; bb 06:35 Drug: Zofran (Ondansetron) 4 mg Route: IVP; Site: left upper arm; bb 06:40 Drug: Dilaudid (HYDROmorphone) 1 mg Route: IVP; Site: left upper arm; bb 07:20 Drug: NS 0.9% 1000 ml Route: IV; Rate: 1000 ml; Site: right antecubital; [facility] 09:26 Drug: Dilaudid (HYDROmorphone) 1 mg Route: IVP; Site: right antecubital; [facility] 09:26 Drug: Phenergan (promethazine) 12.5 mg Route: IVP; Site: right antecubital; [facility] 10:20 Drug: Zosyn (piperacillin-tazobactam) 3.375 grams Route: IVPB; Infused Over: 60 mins; [facility] Site: right antecubital; 14:09 Drug: Dilaudid (HYDROmorphone) 1 mg Route: IVP; Site: right antecubital; [facility] 14:59 Follow up: Response: Pain is decreased [facility] Disposition Summary: 02/23/22 08:58 Hospitalization Ordered Hospitalization Status: Inpatient Admission rn Provider: Mann Hwang rn Condition: Stable rn Problem: new rn Symptoms: have improved rn Bed/Room Type: Standard rn Location: Telemetry/MedSurg (Inpatient)(02/23/22 16:32) bd Room Assignment: [facility](02/23/22 16:32) bd Diagnosis - Other intestinal obstruction rn - UTI/ Urinary tract infection, site not specified rn Forms: - Medication Reconciliation Form rn - SBAR form rn Signatures: Dispatcher [employer] EDMS Vilma Mcintyre Brenda RN RN Priyanka Hall RN RN Pino Walker MD MD rn Holmes, Maurice, MD MD 7 Debby Perez RN RN [id number] Hollie Mcgee, RN RN vc1 Corrections: (The following items were deleted from the chart) 15:15 08:58 Telemetry/MedSurg (Inpatient) rn iw 15:15 08:58 rn iw 16:32 15:15 [facility] ER HOLD bd 16:32 15:15 ERHOLD- bd
--- NOTE | 2022-02-23 08:59 | ER ---
Nurse's Notes [facility] Name: Leila Aquino Age: 41 yrs Sex: Female : 1980 Arrival Date: 02/23/2022 Time: 04:27 Bed 13 Private MD: Diagnosis: Other intestinal obstruction;UTI/ Urinary tract infection, site not specified Presentation: 02/23 04:27 Chief complaint: EMS states: She started having abdominal pain Wednesday and it has vc1 gotten worse she was recently hospitalized for a kidney stone and hasn't been able to follow up yet. Her appointment is the 5th. Coronavirus screen: Vaccine status: Patient reports being unvaccinated. At this time, the client does not indicate any symptoms associated with coronavirus-19. Ebola Screen: No symptoms or risks identified at this time. Onset of symptoms was February 21, 2022. 04:27 Method Of Arrival: EMS: [facility] vc1 04:27 Acuity: [place] 3 vc1 Triage Assessment: 04:30 General: Appears in no apparent distress. uncomfortable, Behavior is cooperative, vc1 appropriate for age. Pain: Complains of pain in abdomen Pain does not radiate. Pain currently is 7 out of 10 on a pain scale. Neuro: Level of Consciousness is awake, alert, obeys commands, Oriented to person, place, time, situation, Appropriate for age. Cardiovascular: No deficits noted. Respiratory: Airway is patent Respiratory effort is even, unlabored, Respiratory pattern is regular, symmetrical. GI: Colostomy site Ileostomy site Reports lower abdominal pain, upper abdominal pain. : No deficits noted. Brown in place to gravity drainage clamped. Derm: No deficits noted. Musculoskeletal: No deficits noted. 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 Pneumococcal vaccine is up to date, Flu vaccine is not up to date. - Social history:: Smoking status: Patient denies any tobacco usage or history of. Screenin:30 Abuse screen: Denies threats or abuse. Nutritional screening: No deficits noted. vc1 Tuberculosis screening: No symptoms or risk factors identified. Fall Risk None identified. Assessment: 05:30 Reassessment: No changes from previously documented assessment. Patient is alert, vc1 oriented x 3, equal unlabored respirations, skin warm/dry/pink. see triage assessment. Vital Signs: 04:27 Weight 72.57 kg; Height 5 ft. 0 in. (152.40 cm); Pain 7/10; vc1 05:00 BP 147 / 109; Pulse 125; Resp 18; Temp 99.0(O); Pulse Ox 99% on R/A; Weight 72.57 kg; vc1 Height 5 ft. 0 in. (152.40 cm); Pain 7/10; 05:00 Body Mass Index 31.25 (72.57 kg, 152.40 cm) vc1 ED Course: 04:27 Patient arrived in ED. vc1 04:29 Triage completed. vc1 04:32 Arm band placed on left wrist. vc1 04:40 Jaun Morrow MD is Attending Physician. [facility] 06:30 Initial lab(s) drawn, by ED staff, sent to lab. Inserted saline lock: 22 gauge in left mh5 upper arm, using aseptic technique. Missed attempt(s): 22 gauge in right antecubital area. 06:31 Patient has correct armband on for positive identification. Bed in low position. Call 5 light in reach. Side rails up X2. Pulse ox on. NIBP on. 07:00 Debby Perez RN is Primary Nurse. jh6 08:09 CT Abd/Pelvis - IV Contrast Only In Process Unspecified. EDMS 08:37 Attending Physician role handed off by Jaun Morrow MD rn 08:37 Pino Hwang MD is Attending Physician. rn 08:58 Mann Hwang MD is Hospitalizing Provider. rn Administered Medications: 06:35 Drug: NS 0.9% 1000 ml Route: IV; Rate: 1 bolus; Site: left upper arm; bb 06:35 Drug: Zofran (Ondansetron) 4 mg Route: IVP; Site: left upper arm; bb 06:40 Drug: Dilaudid (HYDROmorphone) 1 mg Route: IVP; Site: left upper arm; 07:20 Drug: NS 0.9% 1000 ml Route: IV; Rate: 1000 ml; Site: right antecubital; [facility] 09:26 Drug: Dilaudid (HYDROmorphone) 1 mg Route: IVP; Site: right antecubital; [facility] 09:26 Drug: Phenergan (promethazine) 12.5 mg Route: IVP; Site: right antecubital; [facility] 10:20 Drug: Zosyn (piperacillin-tazobactam) 3.375 grams Route: IVPB; Infused Over: 60 mins; [facility] Site: right antecubital; 14:09 Drug: Dilaudid (HYDROmorphone) 1 mg Route: IVP; Site: right antecubital; [facility] 14:59 Follow up: Response: Pain is decreased [facility] Outcome: 08:58 Decision to Hospitalize by Provider. rn 18:09 Admitted to Tele accompanied by tech, via stretcher, room 224, Report called to gayatri [facility] 18:09 Condition: stable 18:09 Instructed on the need for admit. 18:10 Patient left the ED. [facility] Signatures: Dispatcher [employer] Carmen Robles RN RN bb Nieto, Roman, MD MD rn Martinez, Maria Jaun Brower MD MD mh7 Hastedt, Jennifer, RN RN 6 Hollie Mcgee RN RN vc1
[2022-02-23] MEDS ORDERED: PROMETHAZINE INJ 25 MG/ML AMP ONE (09:26)
[2022-02-23] MEDS ORDERED: PIPERACIL/TAZO 3.375 GM VIAL IV ONE (09:40)
[2022-02-23] MEDS ORDERED: NA CHLORIDE 0.9% 100 ML ONE (09:40)
--- NOTE | 2022-02-23 15:23 | P.HP ---
Certification for Inpatient Patient admitted to: Inpatient With expected LOS: >2 Midnights Practitioner: I am a practitioner with admitting privileges, knowledge of patient current condition, hospital course, and medical plan of care. Services: Services provided to patient in accordance with Admission requirements found in Title 42 Section 412.3 of the Code of Federal Regulations Patient History Date of Service: 02/23/22 Reason for admission: SBO History of Present Illness: 41yo F, PMH: spina bifida, colostomy, urostomy, recent L ureteral stent / lithotripsy ~2 weeks ago Presents to ED due to abdominal pain, nausea for a few days. She feels severe abdominal discomfort, bloated sensation. Colostomy output waxes/wanes. +subjective fever at home Nothing worsened/alleviated the pain In the ED, she was noted to be sinus tachycardic, CT: likely SBO, abdomen distended and tender Allergies morphine Allergy (Intermediate, Verified 06/25/14 20:17) Itching vancomycin Allergy (Mild, Verified 09/30/17 06:35) Itching/Hives/Rash Latex, Natural Rubber Allergy (Verified 03/06/15 22:23) Itching/Hives/Rash Home Medications: Rivaroxaban [Xarelto] 1 tab PO DAILY #30 tablet 10/08/17 Sertraline [Zoloft*] 100 mg PO DAILY #30 tab 10/08/17 Albuterol Sulfate [Ventolin Hfa] 2 puff IH PRN PRN 10/21/18 Amlodipine Besylate 1 tab PO DAILY 10/21/18 Diphenhydramine HCl [Allergy] 1 tab PO DAILY 10/21/18 Hydrocodone 10/APAP 325 [[place] 10/325*] 1 tab PO Q4HR PRN 10/21/18 Lactose-Reduced Food [Boost] 237 ml PO DAILY 10/21/18 Ondansetron [Zofran (Odt)*] 3 cap.sr PO Q4HR PRN 10/21/18 Polyethylene Glycol 3350 [Miralax] 17 gm PO DAILY PRN 10/21/18 Zolpidem Tartrate 1 tab PO BEDTIME 10/21/18 Penicillin V Potassium 500 mg PO DAILY #14 tablet 10/24/18 - Past Medical/Surgical History Diabetic: No -: Spina bifida -: PROJECT SAFETY MANAGER shunt -: Chronic left sided pleural effusion -: Hypertension -: Depression with anxiety -: Nephrolithiasis -: History of multiple abdominal surgeries -: Urostomy -: Colostomy -: Recurrent multidrug-resistant UTI -: History of DVT -: History of vaginal prolapse -: Colostomy -: Urostomy -: Vaginal reconstruction -: Ileostomy -: Skin graft -: IVC filter -: PROJECT SAFETY MANAGER shunt replaced x2 -: PROJECT SAFETY MANAGER SHUNT REPLACED X2 Psychosocial/ Personal History: Patient lives at home. She is single. - Family History Sister -: Diabetes Father -: Heart disease, Hypertension, Other (see notes) Notes: HIGH CHOLESTEROL, HI Mother -: Heart disease, Hypertension, Cancer Notes: CHF, PANCREATIC CANCER - Social History Smoking Status: Never smoker Alcohol use: No CD- Drugs: No Caffeine use: Yes Place of Residence: Home Review of Systems 10-point ROS is otherwise unremarkable Physical Examination - Physical Exam General: Alert, In no apparent distress, Oriented x3 HEENT: EOMI, Sclerae nonicteric Respiratory: Clear to auscultation bilaterally, Diminished Cardiovascular: No edema, Regular rate/rhythm Gastrointestinal: Distended (painful), Tenderness (diffusely) Musculoskeletal: No swelling, No contractures Integumentary: No rashes, No significant lesion Neurological: Normal speech, Normal affect - Studies Laboratory Data (last 24 hrs) 02/23/22 05:48: Sodium 137, Potassium 3.8, BUN 15, Creatinine 1.03, Glucose 110 H, Total Bilirubin 0.4, AST 9 L, ALT 19, Alkaline Phosphatase 70, Lipase 155 02/23/22 05:48: WBC 14.3 H, Hgb 11.5 L, Hct 36.4, Plt Count 532 H Assessment and Plan - Advance Directives Does patient have a Living Will: Yes Does patient have a Durable POA for Healthcare: Yes Physician Review Additional Text: Problem List SBO UTI iron deficiency anemia spina bifida s/p colostomy s/p urostomy recent kidney stones s/p removal medical management Dr. Chappell consulted bowel rest / IV fluids, pain control zosyn f/u cultures, has had MDR bacteria before does not appear septic Code:L full Dispo: home ~3 days Time Spent Managing Pts Care (In Minutes): 75
[2022-02-23 16:09] VITALS: BMI 29.2
[2022-02-23] MEDS: PIPER TAZO 3.375 GM in NA CHLORIDE 0.9% 100 ML IV SCH (17:00)
[2022-02-23] MEDS ORDERED: ZOLPIDEM TARTRATE 5 MG TABLET PO SCH (21:00)
[2022-02-23] MEDS: HYDROMORPHONE HCL 1 MG/ML INJ IV PRN (22:26)
[2022-02-23] MEDS: ONDANSETRON 4 MG/2 ML VIAL IV PRN (22:26)
[2022-02-23] MEDS: NA CHLORIDE 0.9% 1,000 ML IV SCH (23:04)
[2022-02-24] MEDS: PIPER TAZO 3.375 GM in NA CHLORIDE 0.9% 100 ML IV SCH ×3 (00:26→16:29)
[2022-02-24] MEDS: ONDANSETRON 4 MG/2 ML VIAL IV PRN ×2 (03:46→12:01)
[2022-02-24] MEDS: HYDROMORPHONE HCL 1 MG/ML INJ IV PRN ×4 (03:49→16:34)
[2022-02-24] MEDS ORDERED: PANTOPRAZOLE 40MG TABLET PO SCH (07:30)
[2022-02-24 07:44] LABS: Hematocrit 32.9 % (36.0-45.0); RBC Red Blood Cell Count 4.51 M/uL (3.86-4.86)
[2022-02-24 07:45] LABS: Absolute Lymphocytes (CBC) 0.8 K/uL (0.7-4.9); Lymphocytes % 13.5 % (15.3-44.8); MPV 6.3 fL (7.6-11.3)
[2022-02-24 08:02] LABS: Albumin 3.5 g/dL (3.4-5.0); Bilirubin Total 0.4 mg/dL (0.2-1.0); Magnesium 2.2 mg/dL (1.8-2.4); Potassium 4.1 mmol/L (3.5-5.1); Protein, Total 9.1 g/dL (6.4-8.2)
[2022-02-24] MEDS ORDERED: PROMETHAZINE INJ 25 MG/ML AMP IV ONE (08:08)
[2022-02-24] MEDS: NA CHLORIDE 0.9% 1,000 ML IV SCH ×2 (08:31→12:00)
[2022-02-24] MEDS ORDERED: AMLODIPINE 5 MG TAB PO SCH (09:00)
[2022-02-24] MEDS ORDERED: POLYETHYL GLY 3350 17 GM/DOSE PO SCH (09:00)
--- NOTE | 2022-02-24 13:08 | P.PN ---
Subjective Date of Service: 02/24/22 Chief Complaint: SBO no new pain, had several episodes of emesis Physical Examination - Vital Signs Temperature: 97.3 F Blood Pressure: 152/87 Pulse: 112 Respirations: 16 Pulse Ox (%): 96 - Physical Exam General: Alert, In no apparent distress, Cooperative HEENT: Mucous membr. moist/pink Respiratory: Clear to auscultation bilaterally Cardiovascular: Regular rate/rhythm Gastrointestinal: Other (soft, mild tenderness persists, mild distention, unchanged from prior exam) - Studies Microbiology Data (last 24 hrs): 02/23/22 05:48 Blood - Blood Anaerobic Blood Culture - Final 02/23/22 05:55 Blood - Blood Anaerobic Blood Culture - Final Assessment And Plan - Current Problems (Diagnosis) (1) SBO (small bowel obstruction) Current Visit: Yes Status: Acute Plan: - serial exams - recommended NGT decompression - patient refused - patient has requested transfer to her surgeon @ [facility] - continue medical management - NPO
[2022-02-24 13:38] VITALS: O2SAT 96
[2022-02-24] MEDS ORDERED: PROMETHAZINE INJ 25 MG/ML AMP IV PRN (14:40)
[2022-02-24] MEDS ORDERED: SODIUM CHLORIDE 0.9% 10ML INJ IV PRN (14:41)
[2022-02-24 16:49] VITALS: BP 144/92; TEMP 97.2
--- NOTE | 2022-02-24 17:40 | P.DS ---
Admission Date: 02/23/22 Discharge Date: 02/24/22 Disposition: TRANSFER TO PONCE Discharge Condition: FAIR Reason for Admission: SBO - Problems (1) SBO (small bowel obstruction) Current Visit: Yes Status: Acute Brief History of Present Illness: 41yo F, PMH: spina bifida, colostomy, urostomy, recent L ureteral stent / lithotripsy ~2 weeks ago presented to ED due to abdominal pain, nausea for a few days. She stated her colostomy output waxes/wanes. +subjective fever at home. She also reported vomiting episodes. Nothing worsened/alleviated the pain In the ED, she was noted to be sinus tachycardic, CT: likely SBO, abdomen distended and tender. Patient admitted for further management. Hospital Course: Diagnosis SBO UTI iron deficiency anemia spina bifida s/p colostomy s/p urostomy recent kidney stones s/p removal Patient started on supportive measures for SBO with IV fluid. Also started on IV antibiotic. She was seen and evaluated by general surgery-Dr. Chappell recommended NG tube insertion. Patient refused NG tube twice to she continued to vomit and was experiencing constant nausea and abdominal pain. She wanted her surgeon Dr. Davis at [facility] to be involved in her care. At this point Dr. Chappell recommended transfer to [facility] to be seen by his surgeon. Transfer to [facility] was initiated, I spoke to Dr. Davis who accepted patient for transfer. Her vitals are stable for transfer. Vital Signs/Physical Exam: Temp Pulse Resp BP Pulse Ox 97.2 F 117 H 18 144/92 H 97 02/24/22 16:00 02/24/22 16:00 02/24/22 16:00 02/24/22 16:00 02/24/22 16:00 General: Alert, Oriented x3, Mild distress (Due to pain) HEENT: Mucous membr. moist/pink Neck: JVD not distended Respiratory: Clear to auscultation bilaterally, Normal air movement Cardiovascular: No edema, Normal S1 S2, Other (Tachycardia) Gastrointestinal: Hyperactive, Distended (Mildly distended), Tenderness (Diffuse) Musculoskeletal: No swelling Integumentary: No rashes Laboratory Data at Discharge: WBC 6.2 K/uL (4.3-10.9) D 02/24/22 07:27 Hgb 10.5 g/dL (12.0-15.0) L 02/24/22 07:27 Hct 32.9 % (36.0-45.0) L 02/24/22 07:27 Plt Count 532 K/uL (152-406) H 02/24/22 07:27 Sodium 142 mmol/L (136-145) 02/24/22 07:27 Potassium 4.1 mmol/L (3.5-5.1) 02/24/22 07:27 BUN 18 mg/dL (7-18) 02/24/22 07:27 Creatinine 0.93 mg/dL (0.55-1.3) 02/24/22 07:27 Glucose 106 mg/dL (74-106) 02/24/22 07:27 Magnesium 2.2 mg/dL (1.8-2.4) 02/24/22 07:27 Total Bilirubin 0.4 mg/dL (0.2-1.0) 02/24/22 07:27 AST 12 U/L (15-37) L 02/24/22 07:27 ALT 17 U/L (12-78) 02/24/22 07:27 Alkaline Phosphatase 57 U/L (45-117) 02/24/22 07:27 Lipase 155 U/L (73-393) 02/23/22 05:48 Home Medications: Zolpidem Tartrate 1 tab PO BEDTIME 10/21/18 Amlodipine Besylate 1 tab PO DAILY 02/23/22 Aspirin [Aspirin EC 325 MG] 1 tab PO DAILY 02/23/22 Diphenhydramine HCl [Benadryl Allergy] 1 tab PO DAILY PRN 02/23/22 Polyethylene Glycol 3350 [Miralax] 1 packet PO BID 02/23/22 Rivaroxaban [Xarelto] 1 tab PO BEDTIME 02/23/22 Sertraline [Zoloft*] 1 tab PO BEDTIME 02/23/22 Hydromorphone [Dilaudid*] 1 mg IV Q4H PRN ml 02/24/22 Ondansetron [Zofran*] 4 mg IV Q6HP PRN vial 02/24/22 Pantoprazole Inj [Protonix IV*] 40 mg IVP Q12HR vial 02/24/22 Promethazine Inj [Phenergan -Inj*] 12.5 mg IV Q6H PRN amp 02/24/22 Followup: NONE,NONE [Primary Care Provider] - Time spent managing pt's care (in minutes): 36
--- NOTE | 2022-02-24 20:14 | CON ---
Date of Consultation: 02/23/2022 Reason For Consultation: Small bowel obstruction. Brief History Of Present Illness: The patient is a 41-year-old black female with a past medical hist ory of spina bifida, colostomy creation, urostomy creation, left ureteral stent and lithotripsy 2 wee ks ago, multiple abdominal surgeries for hernia in the past, and abdominal graft placement who presen ts to hospital with what she thought was fever associated with nausea and vomiting. She thought this was maybe a food infection and she felt bloated. Her colostomy output normally waxes and wanes. Josefa delcid did not measure her fever at home, but she felt warm. She has had minimal pain, just general mild distention by her description, but she is currently comfortable resting in bed without pain. She zabala s have mild tenderness, she states when she pushes on her abdomen, but otherwise not remarkable. She did have nausea and vomiting prior to arrival, but states she feels significantly improved since abel ng here at the hospital. She notes that the colostomy output, as she states is fairly normal for her with intermittent waxing and waning amounts of output. She continues to have output as of today. 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 Past Surgical History: Included IVC filter placed, [employer] shunt with revision x2. She has had a colosto my creation, urostomy/Deuel pouch creation, vaginal reconstruction, ileostomy, skin graft. Social History: She lives at home. She is single. She denies smoking, alcohol, or recreational xavier g use. Allergies: MORPHINE, VANCOMYCIN, AND LATEX. Medications: Home medications include Xarelto, Zoloft, Ventolin, amlodipine, diphenhydramine, hydroc odone/Rosamond 10, Boost diet supplement, Zofran, MiraLAX, and Ambien. Family History: Significant for high cholesterol and myocardial infarction in father as well as hype rtension. Sister has diabetes. Her mother had heart disease, hypertension, and pancreatic cancer an d also congestive heart failure. Review of Systems: Ten-point review of systems, other than HPI denies. Physical Examination: General: At the time of examination, she is awake, alert, and oriented. Psychiatric: She is appropriate and conversive. She answers questions appropriately. HEENT: She is otherwise normocephalic. Sclerae were anicteric. She has anisocoria and slight strab ismus of her eyes. Oropharynx is clear. Neck: Supple without JVD. Chest: Normal expansion and excursion. She has decreased breath sounds bilaterally. Abdomen: Mildly distended. Multiple well-healed scars were evident. She has a large ventral hernia in the midline with what appears to be a skin graft or wound healing in the midline. She has a uros philipp and colostomy currently with material in both bags on the opposite sides of the abdomen. Otherw ise, she has mild global tenderness to palpation. No focal peritonitis. Her abdomen is slightly tym panic. There is no rebound and no guarding. No focal peritoneal signs are described. Extremities: No clubbing, cyanosis, or edema. Skin: Warm and dry. Data Reviewed: Laboratory exam revealed a white blood cell count of 14.3, hemoglobin 11.5, hematocri t 36.4, platelet count was 532, neutrophils are 80%. Her sodium was 137, potassium 3.8, chloride 103 , carbon dioxide 24, BUN 15, creatinine 1.03, glucose is 110, lactic acid 1.6, calcium 10.3, AST 9, A LT 19, alkaline phosphatase 70. Lipase is 155. Her UA showed 1+ blood, positive nitrites, 3+ leukoc yte esterase, 2+ protein. She had a COVID test, which was negative by PCR. She had imaging performe d, which included a CT of the abdomen and pelvis, officially read as staghorn calculus in right kidne y with small left renal calculi. Ileal conduit in the right lower quadrant. Multiple loops of the j ejunum and ileum were moderately dilated. The distal ileum is decompressed. Fibroid uterus. IUD in place. Spina bifida. Chronic moderate left pleural effusion with ventricular pleural shunt. Chron ic soft tissue thickening involves perirectal tissue and adjacent subcutaneous fat. Lower left quadr ant colostomy. Moderate dilation of multiple small bowel loops, likely an obstruction. Assessment And Plan: This is a 41-year-old female who comes in with signs and symptoms of early part ial small bowel obstruction. 1.IV fluid hydration. 2.N.p.o. status. 3.I have explained the recommendation for NG tube decompression, however, the patient refuses at thi s time. She states that she wants to reach out to her surgeon to see if he is willing to accept her and in the interim, we will admit the patient for nonoperative management initially. I have explaine d the risks, benefits, and alternatives of nonoperative versus operative management including but not limited to bleeding, infection, damage to surrounding tissue, need for further operative procedure s hould surgery be entertained. We will try nonoperative management and preferred NG tube decompressio n. I have reiterated my recommendation for this. The patient continues to refuse despite feelings o f nausea and vomiting prior to arrival. Additionally, IV fluid hydration, electrolyte correction, se rial abdominal exams, and monitoring of ostomy output. In addition, continue medical management per primary medical team. I explained I will be seeing her every day. All questions were answered. Thank you for this interesting consult. ARLENE/KAYLEIGH Voice ID: [id number] Report ID: [id number]
[2022-02-24] MEDS ORDERED: SERTRALINE HCL 100 MG TAB PO SCH (21:00)
[2022-02-24] MEDS ORDERED: PANTOPRAZOLE 40 MG INJ IVP SCH (21:00)
== END 2022-02-24 18:00 | disposition short-term general hospital (02) | DRG 389 ==
LOC: ER 04:21 → ERHOLD 15:20 → 2ND 18:03
PROVIDERS: ADMIT Hospitalist; ATTEND Hospitalist
DX: K56.609 Unspecified intestinal obstruction, unspecified as to partial versus complete obstruction (principal); N39.0 Urinary tract infection, site not specified; Z93.3 Colostomy status; Q05.9 Spina bifida, unspecified; I10 Essential (primary) hypertension; F41.8 Other specified anxiety disorders; D50.9 Iron deficiency anemia, unspecified; Z93.6 Other artificial openings of urinary tract status; Z87.442 Personal history of urinary calculi; Z91.040 Latex allergy status; Z86.718 Personal history of other venous thrombosis and embolism; Z20.822 Contact with and (suspected) exposure to COVID-19
CPT/HCPCS: 36415; 74177; 80053; 81003; 83605; 83690; 83735; 85025; 87040; 87077; 87086; 87088; 87186; 87205; 94760; 99285; J1170; J2405; J2543; J2550; J7030; Q9967; U0003

== ENCOUNTER 2024-06-06 12:45 | Inpatient (IN) | payer OTHER ==
[2024-06-06 13:35] LABS: PT Prothrombin Time 12.5 SECONDS (9.4-12.5); PTT, Activated Partial Thromb 34.2 SECONDS (24.3-36.9); Protime INR 1.12
[2024-06-06 13:50] LABS: ALT/SGPT 17 U/L (13-56); Albumin 3.5 g/dL (3.4-5.0); Albumin/Globulin Ratio 0.7 (1.1-1.8); Alkaline Phosphatase 47 U/L (45-117); Anion Gap 8.6 mEq/L (5.0-15.0); BUN Blood Urea Nitrogen 20 mg/dL (7-18); Bicarbonate 30 mEq/L (21-32); Bilirubin Total 0.4 mg/dL (0.2-1.0); Glomerular Filtration Rate 85 ml/min (=/>90); Glucose Level 93 mg/dL (74-106); Protein, Total 8.5 g/dL (6.4-8.2); Sodium Level 137 mEq/L (136-145)
[2024-06-06 13:52] LABS: Specific Gravity 1.013 (1.005-1.030); Sqamous Epithelial None Seen /HPF (None Seen); Urine Bacteria 20-50 /HPF (<20); Urine Bilirubin NEGATIVE (Negative); Urine Blood Negative (Negative); Urine Clarity Extremely Turbid (Clear); Urine Color Light-Orange (Yellow); Urine Crystals Unidentified Few /HPF (None Seen); Urine Culture Reflex Order REFLEXED; Urine Glucose NEGATIVE (Negative); Urine Ketones NEGATIVE (Negative); Urine Microscopic Reflex YN ORDER UMIC; Urine Nitrite NEGATIVE (Negative); Urine Protein 3+ (Negative); Urine RBC 21-50 /HPF (None Seen); Urine Urobilinogen Normal (Normal); Urine WBC >50 /HPF (<5); Urine WBC Clump Many /HPF (None Seen); Urine Yeast (Budding) Many /HPF (None Seen)
[2024-06-06 13:53] LABS: Specific Gravity 1.023 (1.005-1.030); Sqamous Epithelial None Seen /HPF (None Seen); Urine Bacteria Loaded /HPF (<20); Urine Bilirubin NEGATIVE (Negative); Urine Blood 2+ (Negative); Urine Clarity Extremely Turbid (Clear); Urine Color Light-Orange (Yellow); Urine Crystals Unidentified Moderate /HPF (None Seen); Urine Culture Reflex Order NOT NEEDED; Urine Glucose NEGATIVE (Negative); Urine Ketones TRACE (Negative); Urine Microscopic Reflex YN ORDER UMIC; Urine Mucus 4+ /HPF (None Seen); Urine Nitrite NEGATIVE (Negative); Urine Protein 2+ (Negative); Urine RBC 21-50 /HPF (None Seen); Urine Urobilinogen 2+ (Normal); Urine WBC None Seen /HPF (<5); Urine WBC Clump Many /HPF (None Seen); Urine pH 7.5 (5.0-7.0)
[2024-06-06 13:53] LABS: AST/SGOT < 10 U/L (15-37)
[2024-06-06 13:55] LABS: Potassium 2.6 mEq/L (3.5-5.1)
[2024-06-06 14:05] LABS: Absolute Eosinophils 0.2 K/uL (0-0.5); Absolute Lymphocytes (CBC) 1.6 K/uL (0.7-4.9); Absolute Monocytes 0.7 K/uL (0.1-1.3); Absolute Neutrophil 4.2 K/uL (1.8-8.0); Basophils % 0.4 % (0-1.3); Hematocrit 40.3 % (36.0-45.0); Hemoglobin 12.9 g/dL (12.0-15.0); Lymphocytes % 23.4 % (15.3-44.8); MCH 27.4 pg (27.0-35.0); MCV 85.6 fL (80-100); MPV 7.6 fL (7.6-11.3); Monocytes % 10.3 % (3.3-12.3); Neutrophils % 62.9 % (41.7-73.7); Nucleated Red Blood Cells % 0.1 % (0-0); Platelets 336 thou/uL (152-406)
[2024-06-06 14:16] LABS: Blood Morphology Comment NOT SEEN (NOT SEEN); Platelet Estimate ADEQ; White Blood Cell Scan OK (OK)
--- NOTE | 2024-06-06 14:35 | EDPHYS ---
Physician Documentation [facility] Name: Leila Aquino Age: 43 yrs Sex: Female : 1980 Arrival Date: 06/06/2024 Time: 12:45 Bed 2 Private MD: ED Physician Alex Mcclure HPI: 06/06 12:54 This 43 yrs old Black Female presents to ER via EMS with complaints of body aches. ms3 12:54 43-year-old female with past medical history of kidney stones, hypertension, asthma, ms3 ADD, osteomyelitis of the left foot, spina bifida presents to the emergency department via [facility] for body aches that been ongoing for 2 months. Patient states she has been unable to see a physician. She denies any alleviating or inciting factors.. Historical: - Allergies: 12:52 chloradate; ss 12:52 Latex; ss 12:52 Morphine; ss 12:52 Vancomycin; ss - PMHx: 12:52 ADD/ADHD; Kidney stones; Anemia; Osteomyelitis-L foot; spina bifida; Sepsis; ss osteomyolitis L foot; Hypertension; DVT; Asthma; Upper extremity DVT- L arm; UTI; - PSHx: 12:52 Colostomy; nephrostomy; urostomy; ss - Immunization history:: Client reports receiving the 2nd dose of the Covid vaccine. - Infectious Disease History:: Denies. - Social history:: Smoking status: Patient denies any tobacco usage or history of. ROS: 12:54 Cardiovascular: Negative for chest pain, and palpitations. Respiratory: Negative for ms3 shortness of breath, cough, wheezing, and pleuritic chest pain, Abdomen/GI: Negative for abdominal pain, nausea, vomiting, diarrhea, and constipation, 12:54 Skin: Negative for injury, rash, and discoloration, 12:54 Constitutional: Positive for body aches, Exam: 12:54 Constitutional: This is a well developed, well nourished patient who is awake, alert, ms3 and in no acute distress. Head/Face: Normocephalic, atraumatic. Neck: Trachea midline, no cervical lymphadenopathy. Supple, full range of motion without nuchal rigidity, or vertebral point tenderness. No Meningismus. Chest/axilla: Normal chest wall appearance and motion. Nontender with no deformity. Cardiovascular: Regular rate and rhythm with a normal S1 and S2. No gallops, murmurs, or rubs. Normal PMI, no JVD. No pulse deficits. Respiratory: Lungs have equal breath sounds bilaterally, clear to auscultation and percussion. No rales, rhonchi or wheezes noted. No increased work of breathing, no retractions or nasal flaring. 12:54 Abdomen/GI: Inspection: abdomen appears normal, Bowel sounds: normal, Palpation: abdomen is soft and non-tender, Ureterostomy right lower quadrant, colostomy left lower abdomen, 12:54 Back: Left-sided nephrostomy without surrounding erythema or drainage, 14:29 ECG was reviewed by the Attending Physician. ms3 Vital Signs: 12:49 BP 110 / 85; Pulse 105; Resp 17; Temp 98.7(O); Pulse Ox 99% ; Weight 66.68 kg; Pain ss 7/10; 13:30 BP 106 / 81; Pulse 99; Resp 18; Pulse Ox 97% on R/A; rs6 15:00 BP 121 / 88; Pulse 89; Resp 16; Pulse Ox 97% on R/A; Pain 7/10; ss 17:30 BP 114 / 94; Pulse 84; Resp 17; Pulse Ox 97% on R/A; ss 12:49 Pain Scale: Adult ss 15:00 Pain Scale: Adult ss MDM: 12:54 Differential Diagnosis UTI versus electrolyte abnormality versus anemia. ms3 12:57 Patient medically screened. ms3 14:35 Data reviewed: vital signs, nurses notes, lab test result(s), and as a result, I will ms3 admit patient. Consideration of Admission/Observation Patient was admitted/placed on observation. Management of patient was discussed with the following: Hospitalist: Raquel Regalado NP with Dr Earl. I considered the following discharge prescriptions or medication management in the emergency department Medications were administered in the Emergency Department. See MAR. Independent interpretation of the following test(s) in the Emergency Department EKG: See my EKG interpretation above. Counseling: I had a detailed discussion with the patient and/or guardian regarding the historical points, exam findings, and any diagnostic results supporting the discharge/admit diagnosis, lab results, the need for further work-up and treatment in the hospital. ED course: Discussed case with nurse frieda García, and she accepts patient on behalf of Dr. Earl. Discussed plan for admission with patient and her mother. They understand and agree with plan. All questions were answered. 06/06 12:52 Order name: Blood Culture Adult (2) ms3 06/06 12:52 Order name: CBC with Diff; Complete Time: 14:19 ms3 06/06 12:52 Order name: CMP; Complete Time: 14:19 ms3 06/06 12:52 Order name: Lactate w/ 2H reflex if indic.; Complete Time: 14:19 ms3 06/06 12:52 Order name: Protime (+inr); Complete Time: 14:19 ms3 06/06 12:52 Order name: Ptt, Activated; Complete Time: 14:19 ms3 06/06 12:52 Order name: Urinalysis w/ reflexes; Complete Time: 14:19 ms3 06/06 12:52 Order name: Urinalysis w/ reflexes ms3 06/06 13:42 Order name: Urinalysis w/ reflexes; Complete Time: 14:19 EDMS 06/06 13:59 Order name: Urine Culture EDMS 06/06 14:16 Order name: CBC Smear Scan; Complete Time: 14:19 EDMS 06/06 17:03 Order name: CBC with Automated Diff EDMS 06/06 17:03 Order name: CBC with Automated Diff EDMS 06/06 17:03 Order name: Comprehensive Metabolic Panel EDMS 06/06 17:03 Order name: Comprehensive Metabolic Panel EDMS 06/06 17:03 Order name: Troponin High Sensitivity EDMS 06/06 17:03 Order name: Troponin High Sensitivity EDMS 06/06 15:05 Order name: Abdomen ; Complete Time: 16:32 EDMS 06/06 12:52 Order name: EKG; Complete Time: 12:53 ms3 06/06 12:52 Order name: Cardiac monitoring; Complete Time: 13:28 ms3 06/06 12:52 Order name: EKG - Nurse/Tech; Complete Time: 14:50 ms3 06/06 12:52 Order name: IV Saline Lock - Large Bore; Complete Time: 13:28 ms3 06/06 12:52 Order name: Labs collected and sent; Complete Time: 13:28 ms3 06/06 12:52 Order name: O2 Per Protocol; Complete Time: 13:28 ms3 06/06 12:52 Order name: O2 Sat Monitoring; Complete Time: 13:28 ms3 06/06 12:52 Order name: Vital Signs; Complete Time: 13:28 ms3 06/06 13:42 Order name: Labs - recollect needed: recollect blue and lavender; Complete Time: 14:50 bd EC:29 Rate is 98 beats/min. Rhythm is regular. QRS [place] is Normal. ME interval is normal. QRS ms3 interval is normal. Clinical impression: NSR w/ Non-specific ST/T Changes. Interpreted by me. Reviewed by me. Administered Medications: 14:46 Drug: Ketorolac IVP 10 mg 10 mg IVP once Route: IVP; Site: left wrist; 15:03 Follow up: Response: No adverse reaction 14:46 Drug: Rocephin IV 1 grams IV at calculated rate once; Given slow IV push per pharmacy ss instructions Route: IV; Rate: calculated rate; Site: left wrist; 15:02 Follow up: IV Status: Completed infusion ss 15:03 Drug: NS 0.9% IV 1000 ml IV at 1 bolus Per protocol; 1000 mL bolus Route: IV; Rate: 1 ss bolus; Site: left wrist; 17:00 Follow up: IV Status: Completed infusion; IV Intake: 1000ml ss 15:03 Drug: Potassium PO Effervescent Tablet 50 mEq PO once; dissolve in 4 ounces of water or ss juice Route: PO; 17:13 Follow up: Response: No adverse reaction ss 15:03 Drug: Potassium Chloride IV 20 mEq IV at calculated rate once; administer over 1-2 ss hours Route: IV; Rate: calculated rate; Site: left wrist; 17:00 Follow up: IV Status: Completed infusion Disposition Summary: 06/06/24 14:34 Hospitalization Ordered Notes: Hospitalization Status: Inpatient Admission ms3 Provider: Lorraine Earl ms3 Location: Telemetry/MedSurg (Inpatient) ms3 Condition: Stable ms3 Problem: new ms3 Symptoms: are unchanged ms3 Bed/Room Type: Standard ms3 Room Assignment: 201(06/06/24 16:35) bd Diagnosis - UTI/ Urinary tract infection, site not specified ms3 - Hypokalemia ms3 Forms: - Medication Reconciliation Form ms3 - SBAR form ms3 - Leadership Thank You Letter ms3 Critical care time excluding procedures: 14:35 Critical care time: Bedside Care: 30 minutes, Consultation: 5 minutes. Total time: 35 ms3 minutes Signatures: Dispatcher [employer] Vilma Flynn Shelby, RN RN ss Alex Mcclure DO DO ms3 Corrections: (The following items were deleted from the chart) 14:50 12:52 Accucheck ordered. ms3 ss 16:35 14:34 ms3 bd
--- NOTE | 2024-06-06 14:35 | ER ---
Nurse's Notes [facility] Name: Leila Aquino Age: 43 yrs Sex: Female : 1980 Arrival Date: 06/06/2024 Time: 12:45 Bed 2 Private MD: Diagnosis: UTI/ Urinary tract infection, site not specified;Hypokalemia Presentation: 06/06 12:49 Chief complaint: EMS states: increased fatigue and body aches x months. nurse told ss patient to come to ER today because pulse was 106. Coronavirus screen: Client denies travel out of the [place] in the last 14 days. Ebola Screen: Patient denies exposure to infectious person. Patient denies travel to an Ebola-affected area in the 21 days before illness onset. Initial Sepsis Screen: Does the patient meet any 2 criteria? No. Patient's initial sepsis screen is negative. Does the patient have a suspected source of infection? No. Patient's initial sepsis screen is negative. Risk Assessment: Do you want to hurt yourself or someone else? Patient reports no desire to harm self or others. Onset of symptoms is unknown. 12:49 Method Of Arrival: EMS: [facility] 12:49 Acuity: [place] 3 12:53 Care prior to arrival: Medication(s) given: Tylenol, 1000 mg. Historical: - Allergies: 12:52 chloradate; ss 12:52 Latex; ss 12:52 Morphine; ss 12:52 Vancomycin; ss - PMHx: 12:52 ADD/ADHD; Kidney stones; Anemia; Osteomyelitis-L foot; spina bifida; Sepsis; ss osteomyolitis L foot; Hypertension; DVT; Asthma; Upper extremity DVT- L arm; UTI; - PSHx: 12:52 Colostomy; nephrostomy; urostomy; ss - Immunization history:: Client reports receiving the 2nd dose of the Covid vaccine. - Infectious Disease History:: Denies. - Social history:: Smoking status: Patient denies any tobacco usage or history of. Screenin:56 Abuse screen: Denies threats or abuse. Denies injuries from another. Nutritional ss screening: No deficits noted. Tuberculosis screening: No symptoms or risk factors identified. Assessment: 12:55 General: Appears in no apparent distress. Behavior is calm, cooperative, quiet. Pain: ss Complains of pain in "all over" Pain currently is 7 out of 10 on a pain scale. Quality of pain is described as aching. Neuro: Level of Consciousness is awake, alert, obeys commands, Oriented to person, place, time, situation, Speech is normal, Facial symmetry appears normal. Respiratory: Respiratory effort is even, unlabored, Respiratory pattern is regular, symmetrical. GI: Abdomen is round Colostomy site Ostomy appliance is intact. urostomy noted to R side of abdominal wall. Old scarring noted to abd from previous surgeries. : nephrostomy tube noted. Musculoskeletal: Pt is non ambulatory due to spina bifida. contractures noted to bilateral lower extremities. 15:02 Reassessment: Dr. Earl and PAYAM García at bedside discussing plan of care with patient. ss 15:13 Reassessment: Pt to CT now VIA stretcher. ss 16:34 Reassessment: Patient appears in no apparent distress at this time. awaiting admission ss orders to be placed. Additional warm blanket given. 16:44 Reassessment: PAYAM García reviewing CT results now. ss 17:56 Reassessment: cleansed pt and place new disposable diana under her upon her request. PT ss refused brief. Clean gown placed as well. Pt tolerated well. Vital Signs: 12:49 BP 110 / 85; Pulse 105; Resp 17; Temp 98.7(O); Pulse Ox 99% ; Weight 66.68 kg; Pain ss 7/10; 13:30 BP 106 / 81; Pulse 99; Resp 18; Pulse Ox 97% on R/A; rs6 15:00 BP 121 / 88; Pulse 89; Resp 16; Pulse Ox 97% on R/A; Pain 7/10; ss 17:30 BP 114 / 94; Pulse 84; Resp 17; Pulse Ox 97% on R/A; ss 12:49 Pain Scale: Adult ss 15:00 Pain Scale: Adult ED Course: 12:47 Patient arrived in ED. iw 12:48 Verito Crocker, RAJNI is Primary Nurse. ss 12:50 Alex Mcclure DO is Attending Physician. ms3 12:52 Triage completed. ss 12:52 Arm band placed on right wrist. ss 13:16 Accessed peripheral vein via ultrasound, utilizing dynamic ultrasound technique using ss 20G Nexia IV catheter ,sterile technique, per hospital protocol. Good blood return. Flushes easily. 13:28 Blood Culture Adult (2) Sent. ss 13:28 CBC with Diff Sent. ss 13:28 CMP Sent. ss 13:28 Lactate w/ 2H reflex if indic. Sent. ss 13:28 Protime (+inr) Sent. ss 13:29 Ptt, Activated Sent. ss 14:34 Lorraine Earl MD is Hospitalizing Provider. ms3 14:50 Urinalysis w/ reflexes Sent. ss 15:15 Abdomen In Process Unspecified. EDMS 16:00 1600 CM met with Ms Aquino at the bedside in the ED exam room. Patient identified ane by name . Demographic sheet confirmed. Patient states she lives with her mother in a single story home. She reports that prior to admission, she performs ADLs with assistance from her Mom. She is non-ambulatory and uses a wheelchair. Other DME in the home includes an air mattress, rosa lift, and a transfer board. She report she used to have care provider through [facility] in the past. She explains that her and her mother are in the process of getting a larger home that is handicapped equipped. Her PCP is Wilfredo John from [facility]. Her preferred plan is to return home upon discharge and states she has transportation benefits through [employer]. Demographic sheet insurance listed is [employer] at [phone]. She states she has had difficulty with this service in the past with them cancelling transportation on the day of her appointments. CM team will continue to follow and coordinate care during this hospital stay. 16:35 Patient has correct armband on for positive identification. Bed in low position. ss 17:56 No provider procedures requiring assistance completed. Patient admitted, IV remains in ss place. Administered Medications: 14:46 Drug: Ketorolac IVP 10 mg 10 mg IVP once Route: IVP; Site: left wrist; ss 15:03 Follow up: Response: No adverse reaction ss 14:46 Drug: Rocephin IV 1 grams IV at calculated rate once; Given slow IV push per pharmacy ss instructions Route: IV; Rate: calculated rate; Site: left wrist; 15:02 Follow up: IV Status: Completed infusion ss 15:03 Drug: NS 0.9% IV 1000 ml IV at 1 bolus Per protocol; 1000 mL bolus Route: IV; Rate: 1 ss bolus; Site: left wrist; 17:00 Follow up: IV Status: Completed infusion; IV Intake: 1000ml 15:03 Drug: Potassium PO Effervescent Tablet 50 mEq PO once; dissolve in 4 ounces of water or ss juice Route: PO; 17:13 Follow up: Response: No adverse reaction 15:03 Drug: Potassium Chloride IV 20 mEq IV at calculated rate once; administer over 1-2 ss hours Route: IV; Rate: calculated rate; Site: left wrist; 17:00 Follow up: IV Status: Completed infusion Medication: 17:56 VIS not applicable for this client. ss Intake: 17:00 IV: 1000ml; Total: 1000ml. Outcome: 14:34 Decision to Hospitalize by Provider. ms3 17:56 Admitted to Med/surg accompanied by kevin, via stretcher, room 201, 17:56 Condition: good 17:56 Instructed on the need for admit, Demonstrated understanding of instructions, follow-up care, 18:00 Patient left the ED. Signatures: Dispatcher [employer] EDPriyanka Shah, RN RAJNI Verito Crocker RN RN Alex Mcclure DO DO ms3 Flavia Lofton RN Demond Cunningham rs6
[2024-06-06] MEDS ORDERED: POTASSIUM 25 MEQ EFFERV TAB ONE (14:37)
[2024-06-06] MEDS ORDERED: KETOROLAC 30 MG/ML INJ ONE (14:37)
[2024-06-06] MEDS ORDERED: CEFTRIAXONE 1000 MG/VIAL ONE (14:37)
[2024-06-06] MEDS ORDERED: KCL 20 MEQ/100 mL IVPB 100 ML IV ONE (14:37)
[2024-06-06] MEDS ORDERED: NA CHLORIDE 0.9% 0 ML ONE (14:37)
[2024-06-06] MEDS ORDERED: NA CHLORIDE 0.9% 50 ML ONE (14:38)
[2024-06-06] MEDS ORDERED: NA CHLORIDE 0.9% 1,000 ML ONE (14:38)
--- NOTE | 2024-06-06 15:14 | P.CNS ---
Date of Consult: 06/06/24 Reason for Consult: Pyelonephritis; nephrostomy tubes Requesting Physician: Alex Mcclure Chief Complaint: Pyelonephritis Allergies morphine Allergy (Intermediate, Verified 06/25/14 20:17) Itching vancomycin Allergy (Mild, Verified 09/30/17 06:35) Itching/Hives/Rash Latex, Natural Rubber Allergy (Verified 03/06/15 22:23) Itching/Hives/Rash Home Medications: Zolpidem Tartrate 1 tab PO BEDTIME 10/21/18 Diphenhydramine HCl [Benadryl Allergy] 1 tab PO DAILY PRN 02/23/22 Polyethylene Glycol 3350 [Miralax] 1 packet PO BID 02/23/22 Rivaroxaban [Xarelto] 1 tab PO BEDTIME 02/23/22 Sertraline [Zoloft*] 1 tab PO BEDTIME 02/23/22 Amlodipine Besylate 1 tab PO DAILY #90 tab 03/15/24 Ciprofloxacin HCl [Cipro 500 MG Tablet] 500 mg PO BID #20 tab 03/15/24 Metoprolol Succinate 25 mg PO DAILY #90 tab 03/15/24 - Past Medical/Surgical History Diabetic: No -: Spina bifida -: HARD ROCK MINER shunt -: Chronic left sided pleural effusion -: Hypertension -: Depression with anxiety -: Nephrolithiasis -: History of multiple abdominal surgeries -: Urostomy -: Colostomy -: Recurrent multidrug-resistant UTI -: History of DVT -: History of vaginal prolapse -: Colostomy -: Urostomy -: Vaginal reconstruction -: Ileostomy -: Skin graft -: IVC filter -: HARD ROCK MINER shunt replaced x2 -: HARD ROCK MINER SHUNT REPLACED X2 Psychosocial/ Personal History: Patient lives at home. She is single. - Family History Sister Medical History: Diabetes Father Medical History: Heart disease, Hypertension, Other (see notes) Notes: HIGH CHOLESTEROL, [place] Mother Medical History: Heart disease, Hypertension, Cancer Notes: CHF, PANCREATIC CANCER - Social History Smoking Status: Unknown if ever smoked Alcohol use: No CD- Drugs: No Caffeine use: Yes Review of Systems 10-point ROS is otherwise unremarkable Physical Examination reviewed General: Alert, In no apparent distress HEENT: Atraumatic, PERRLA, Mucous membr. moist/pink, EOMI, Sclerae nonicteric Neck: Supple, 2+ carotid pulse no bruit, No LAD, Without JVD or thyroid abnormality Respiratory: Clear to auscultation bilaterally, Normal air movement Cardiovascular: Regular rate/rhythm, Normal S1 S2 Gastrointestinal: Normal bowel sounds, No tenderness Musculoskeletal: No clubbing, No swelling, No tenderness Integumentary: Pressure ulcer, Venous stasis ulcer Neurological: Normal tone, Cranial nerves 3-12 intact Lymphatics: No axilla or inguinal lymphadenopathy Laboratory Data (last 24 hrs) 06/06/24 06/06/24 06/06/24 13:57 13:16 13:16 WBC 6.70 Hgb 12.9 Hct 40.3 Plt Count 336 PT 12.5 INR 1.12 APTT 34.2 Sodium 137 Potassium 2.6 L* BUN 20 H Creatinine 0.86 Glucose 93 Total Bilirubin 0.4 AST < 10 L ALT 17 Alkaline Phosphatase 47
--- NOTE | 2024-06-06 16:19 | RAD REPORT ---
EXAMINATION: CT Abdomen Pelvis W Contrast CLINICAL INDICATION: Female, 43 years old. pyelonephritis/nephrostomy tubes TECHNIQUE: CT abdomen and pelvis was performed, after the administration of 100 mL Isovue 300 intrave nously, as per department protocol. Axial, sagittal and coronal reconstructions were obtained. One or more of the following dose reduction techniques were used: Automated exposure control, adjustment of the mA and kV according to patient size, and iterative reconstruction. Unless otherwise specified, incidental findings do not require dedicated imaging follow-up. COMPARISON: 03/19/2024 FINDINGS: LOWER CHEST: Left moderate pleural effusion, improved since the prior exam. Unchanged positioning of the tip of a left pleural smallbore drainage catheter. LIVER: Normal in size and contour. No focal lesion. BILIARY SYSTEM: No suspicious abnormalities. SPLEEN: Normal size. No focal lesion. PANCREAS: No mass, ductal dilation, or raciel-pancreatic fluid. ADRENALS: Normal; no mass. KIDNEYS: Atrophic changes involving the upper to mid right kidney again seen. Right mid to lower pole calculi, up to 9 mm in size, stable. No abnormal enhancement patterns of the kidneys. Improvement of left hydroureteronephrosis. Interval placement of left percutaneous nephrostomy and ur eteral stent. The left ureteral stent terminates within a right urostomy, with its distal pigtail loop present at the level of the abdominal wall. No calculi seen on the left.. URINARY BLADDER: Unremarkable. GASTROINTESTINAL TRACT: No evidence of free air, significant intra-abdominal free fluid, bowel obstru ction or abscess. Sequelae of distal colonic resection with left lower quadrant colostomy and mucous fistula, with a stable parastomal fat-containing hernia. APPENDIX: Normal appendix. LYMPH NODES: No lymphadenopathy. MUSCULOSKELETAL: Hypoplastic changes of the sacrum and extensive scoliotic deformity again seen. 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 ADDITIONAL FINDINGS: IUD in place. Large fibroids within the uterus again seen. Diastasis recti. IMPRESSION: Interval improvement of left hydroureteronephrosis, with interval placement of a left percutaneous ne phrostomy and left ureteral stent. No residual calculi on the left. Stable calculi of the right mid to lower renal pole up to 9 mm in size. Partial improvement of left moderate pleural effusion. Other stable findings as above.
[2024-06-06] MEDS ORDERED: MORPHINE 2 MG/ML SYR IV PRN (16:59)
[2024-06-06] MEDS ORDERED: ACETAMINOPHEN 500 MG TAB PO PRN (16:59)
[2024-06-06] MEDS: NA CHLORIDE 0.9% 1,000 ML IV SCH (17:00)
[2024-06-06] MEDS: POTASSIUM CL 40 MEQ in NA CHLORIDE 0.9% 500 ML IV SCH (19:31)
[2024-06-06] MEDS: Meropenem 1,000 MG in NA CHLORIDE 0.9% 100 ML IV SCH (19:33)
[2024-06-06] MEDS: POTASSIUM CL SA 10 MEQ TAB PO SCH (19:35)
[2024-06-06] MEDS ORDERED: ZOLPIDEM TARTRATE 5 MG TABLET PO PRN ×2 (21:49→22:14)
[2024-06-06] MEDS: HYDROCODONE/APAP 5/325 MG TAB PO PRN (23:00)
[2024-06-06] MEDS: ZOLPIDEM TARTRATE 5 MG TABLET PO PRN (23:00)
[2024-06-07 03:02] VITALS: BMI 28.7
--- NOTE | 2024-06-07 04:45 | P.HP ---
Certification for Inpatient Patient admitted to: Inpatient With expected LOS: >2 Midnights Patient will require the following post-hospital care: None Practitioner: I am a practitioner with admitting privileges, knowledge of patient current condition, hospital course, and medical plan of care. Services: Services provided to patient in accordance with Admission requirements found in Title 42 Section 412.3 of the Code of Federal Regulations Patient History Date of Service: 06/06/24 Reason for admission: Fever and abdominal pain History of Present Illness: Patient is a 43 yrs old Female with past medical history of spina bifida, nephrolithiasis, recurrent UTI, status post colostomy, nephrostomy & urostomy, who was brought to ER with nausea, Along with generalized pain. Patient recently with nephrostomy tube secondary to renal stone, and patient also with J stent placement through the urostomy. Patient presents with fever along with shakes and chills. Patient with cloudy urine. Patient states that she has been feeling fatigue so she came to the ER for further evaluation. In the ER, patient had a urine analysis which revealed a UTI. Patient with history of multidrug-resistant UTIs and will start on meropenem. Otherwise, patient does have prolapsed uterus as well as stage I sacral wound. Patient will be admitted to the hospital for treatment of the UTI. Allergies morphine Allergy (Intermediate, Verified 06/06/24 23:14) hallucinations vancomycin Allergy (Mild, Verified 06/06/24 23:14) Itching/Hives/Rash Latex, Natural Rubber Allergy (Verified 03/06/15 22:23) Itching/Hives/Rash Home Medications: Zolpidem Tartrate 1 tab PO BEDTIME 10/21/18 Diphenhydramine HCl [Benadryl Allergy] 1 tab PO BID 02/23/22 Sertraline [Zoloft*] 1 tab PO BID 02/23/22 Amlodipine Besylate 1 tab PO DAILY #90 tab 03/15/24 Metoprolol Succinate 25 mg PO DAILY #90 tab 03/15/24 Aspirin Chewable [Aspirin Chewable*] 81 mg PO DAILY 06/06/24 Promethazine HCl 12.5 mg PO Q6HP PRN 06/06/24 Sennosides [Senokot] 8.6 mg PO DAILY 06/06/24 hydroCHLOROthiazide [Hydrochlorothiazide] 25 mg PO DAILY 06/06/24 - Past Medical/Surgical History Has patient received pneumonia vaccine in the past: Yes Diabetic: No -: Spina bifida -: AIRPLANE PILOT CHIEF shunt -: Chronic left sided pleural effusion -: Hypertension -: Depression with anxiety -: Nephrolithiasis -: History of multiple abdominal surgeries -: Urostomy -: Colostomy -: Recurrent multidrug-resistant UTI -: History of DVT -: History of vaginal prolapse -: Colostomy -: Urostomy -: Vaginal reconstruction -: Ileostomy -: Skin graft -: IVC filter -: AIRPLANE PILOT CHIEF shunt replaced x2 -: AIRPLANE PILOT CHIEF SHUNT REPLACED X2 Psychosocial/ Personal History: Patient lives at home. She is single. - Family History Sister Medical History: Diabetes Father Medical History: Heart disease, Hypertension, Other (see notes) Notes: HIGH CHOLESTEROL, [place] Mother Medical History: Heart disease, Hypertension, Cancer Notes: CHF, PANCREATIC CANCER - Social History Smoking Status: Never smoker Alcohol use: No CD- Drugs: No Caffeine use: No Place of Residence: Home Review of Systems 10-point ROS is otherwise unremarkable Physical Examination - Vital Signs Temperature: 96.8 F Blood Pressure: 110/77 Pulse: 90 Respirations: 16 Pulse Ox (%): 96 - Physical Exam General: Alert, In no apparent distress, Oriented x3 HEENT: Atraumatic, PERRLA, Mucous membr. moist/pink, EOMI, Sclerae nonicteric Neck: Supple, 2+ carotid pulse no bruit, No LAD, Without JVD or thyroid abnormality Respiratory: Clear to auscultation bilaterally, Normal air movement Cardiovascular: Regular rate/rhythm, Normal S1 S2 Gastrointestinal: Normal bowel sounds, No tenderness, Other (Abdominal wall hernias) Musculoskeletal: No tenderness Integumentary: Skin lesion, Pressure ulcer Neurological: Sensation intact, Cranial nerves 3-12 intact, Abnormal gait, Abnormal strength, Abnormal tone Lymphatics: No axilla or inguinal lymphadenopathy - Studies Laboratory Data (last 24 hrs) 06/06/24 06/06/24 06/06/24 13:57 13:16 13:16 WBC 6.70 Hgb 12.9 Hct 40.3 Plt Count 336 PT 12.5 INR 1.12 APTT 34.2 Sodium 137 Potassium 2.6 L* BUN 20 H Creatinine 0.86 Glucose 93 Total Bilirubin 0.4 AST < 10 L ALT 17 Alkaline Phosphatase 47 Female Exam - Female Pelvic Uterus: Other (Prolapsed uterus) Assessment & Plan - Problems (Diagnosis) (1) Urinary tract infectious disease Onset Date: 06/26/14 Current Visit: No Status: Active (2) Acute on chronic anemia Current Visit: No Status: Acute (3) UTI (urinary tract infection) Current Visit: No Status: Acute Qualifiers: Urinary tract infection type: site unspecified Hematuria presence: without hematuria Qualified Code(s): N39.0 - Urinary tract infection, site not specified (4) Depression Current Visit: No Status: Chronic Qualifiers: Depression Type: unspecified Qualified Code(s): F32.9 - Major depressive disorder, single episode, unspecified (5) H/O ureterostomy Current Visit: No Status: Chronic (6) Hypertension Current Visit: No Status: Chronic Qualifiers: Hypertension type: essential hypertension Qualified Code(s): I10 - Essential (primary) hypertension (7) Ileostomy in place Current Visit: No Status: Chronic (8) Spina bifida Onset Date: 09/30/17 Current Visit: No Status: Chronic Qualifiers: Presence of hydrocephalus: unspecified hydrocephalus presence (9) GERD (gastroesophageal reflux disease) Current Visit: No Status: Suspected Qualifiers: Esophagitis presence: esophagitis presence not specified Qualified Code(s): K21.9 - Gastro-esophageal reflux disease without esophagitis - Plan Plan: 1. Continue with gentle hydration 2. Continue with IV antibiotics for multidrug-resistant UTI 3. Await urine cultures 4. Check labs 5. Wound care for stage II sacral decubitus ulcer 6. 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
[2024-06-07 05:02] LABS: Absolute Eosinophils 0.3 K/uL (0-0.5); Absolute Lymphocytes (CBC) 1.3 K/uL (0.7-4.9); Absolute Monocytes 0.5 K/uL (0.1-1.3); Absolute Neutrophil 3.7 K/uL (1.8-8.0); Basophils % 0.4 % (0-1.3); Eosinophils % 4.6 % (0-4.4); Hematocrit 36.5 % (36.0-45.0); Hemoglobin 11.5 g/dL (12.0-15.0); Lymphocytes % 23.3 % (15.3-44.8); MCH 27.2 pg (27.0-35.0); MCHC 31.5 g/dL (32.0-36.0); MCV 86.4 fL (80-100); MPV 7.4 fL (7.6-11.3); Monocytes % 8.4 % (3.3-12.3); Neutrophils % 63.3 % (41.7-73.7); Nucleated Red Blood Cells % 0.1 % (0-0); RBC Red Blood Cell Count 4.22 M/uL (3.86-4.86); Red Cell Distribution Width 14.9 % (12.1-15.2)
[2024-06-07 05:05] LABS: Platelets 336 thou/uL (152-406)
[2024-06-07 05:31] LABS: Albumin 2.8 g/dL (3.4-5.0); Albumin/Globulin Ratio 0.6 (1.1-1.8); Anion Gap 8.7 mEq/L (5.0-15.0); Bilirubin Total 0.3 mg/dL (0.2-1.0); Globulin 4.4 g/dL (2.3-3.5); Potassium 4.7 mEq/L (3.5-5.1); Protein, Total 7.2 g/dL (6.4-8.2); Troponin High Sensitivity 3.4 pg/mL (<58.9)
--- NOTE | 2024-06-07 06:48 | P.PN ---
Date of Service: 06/07/24 subjective Generalized abdominal pain controlled as needed analgesia Review of Systems 10-point ROS is otherwise unremarkable Review of Systems -10 point review of system negative unless listed in HPI Vital Signs reviewed - Physical Examination General: Alert, In no apparent distress, Oriented x3, afebrile HEENT: Atraumatic, PERRLA, Mucous membr. moist/pink, EOMI, Sclerae nonicteric Neck: Supple, 2+ carotid pulse no bruit, No LAD, Without JVD or thyroid abnormality Respiratory: Clear to auscultation bilaterally, Normal air movement Cardiovascular: Regular rate/rhythm, Normal S1 S2 Gastrointestinal: Normal bowel sounds, No tenderness, Other (Abdominal wall hernias) Musculoskeletal: No tenderness, congenital paraplegia, bedbound Integumentary: Skin lesion, stage II pressure ulcer Neurological: Sensation intact, Cranial nerves 3-12 intact, Abnormal gait, Abnormal strength, Abnormal tone Female Exam - Female Pelvic Uterus: Other (Prolapsed uterus) Assessment & Plan - Problems (Diagnosis) (1) Urinary tract infectious disease Onset Date: 06/26/14 Current Visit: No Status: Active (2) Acute on chronic anemia Current Visit: No Status: Acute (3) UTI (urinary tract infection) Current Visit: No Status: Acute Qualifiers: Urinary tract infection type: site unspecified Hematuria presence: without hematuria Qualified Code(s): N39.0 - Urinary tract infection, site not specified (4) Depression Current Visit: No Status: Chronic Qualifiers: Depression Type: unspecified Qualified Code(s): F32.9 - Major depressive disorder, single episode, unspecified (5) H/O ureterostomy Current Visit: No Status: Chronic (6) Hypertension Current Visit: No Status: Chronic Qualifiers: Hypertension type: essential hypertension Qualified Code(s): I10 - Essential (primary) hypertension (7) Ileostomy in place Current Visit: No Status: Chronic (8) Spina bifida Onset Date: 09/30/17 Current Visit: No Status: Chronic Qualifiers: Presence of hydrocephalus: unspecified hydrocephalus presence (9) GERD (gastroesophageal reflux disease) Current Visit: No Status: Suspected Qualifiers: Esophagitis presence: esophagitis presence not specified Qualified Code(s): K21.9 - Gastro-esophageal reflux disease without esophagitis (10) spina bifida, congenital paraplegic -chronic (11) bedbound -chronic (12) stage II sacral ulcer-acute on chronic - Plan Plan: 1. Continue with gentle hydration 2. Continue with IV antibiotics for multidrug-resistant UTI 3. Await urine cultures 4. Check labs 5. Wound care for stage II sacral decubitus ulcer 6. 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 Blood cultures no growth 24-hour 8. 4+ gram-negative rods, currently on meropenem 9. Stage II sacral ulcer present on arrival, turn every 2 hours to prevent skin breakdown 10. Follow-up with [facility] for nephrostomy tube Discharge Plan: Home Plan to discharge in: Greater than 2 days, patient uses [facility] [place] - Advance Directives Does patient have a Living Will: Yes Does patient have a Durable POA for Healthcare: Yes - Code Status/Comfort Care Code Status Assessed: Yes Code Status: Full Code Critical Care: No <Darlene Richardson - Last Filed: 06/07/24 15:29> Patient seen and examined. Plan of care discussed with Ms. Richardson. Patient denies any complaint today. Blood cultures have yielded no growth. Urine culture growing gram-negative rods. History of MDR UTI. Diagnosis: Complicated UTI Continue meropenem Supportive measures Follow urine culture <armando man - Last Filed: 06/07/24 18:04>
[2024-06-07] MEDS: Meropenem 1,000 MG in NA CHLORIDE 0.9% 100 ML IV SCH (16:23)
[2024-06-08] MEDS: guaiFENesin 100 MG/5 ML UCUP PO PRN (02:02)
[2024-06-08 06:14] LABS: Absolute Eosinophils 0.3 K/uL (0-0.5); Absolute Lymphocytes (CBC) 1.3 K/uL (0.7-4.9); Absolute Monocytes 0.5 K/uL (0.1-1.3); Absolute Neutrophil 3.9 K/uL (1.8-8.0); Basophils % 0.4 % (0-1.3); Eosinophils % 4.3 % (0-4.4); Hematocrit 35.5 % (36.0-45.0); Hemoglobin 11.1 g/dL (12.0-15.0); MCH 27.2 pg (27.0-35.0); MCHC 31.3 g/dL (32.0-36.0); MPV 6.4 fL (7.6-11.3); Neutrophils % 65.3 % (41.7-73.7); Platelets 384 thou/uL (152-406); RBC Red Blood Cell Count 4.09 M/uL (3.86-4.86); Red Cell Distribution Width 15.6 % (12.1-15.2)
[2024-06-08 06:35] LABS: Albumin 2.8 g/dL (3.4-5.0); Albumin/Globulin Ratio 0.7 (1.1-1.8); Alkaline Phosphatase 38 U/L (45-117); Anion Gap 7.8 mEq/L (5.0-15.0); BUN Blood Urea Nitrogen 11 mg/dL (7-18); Bicarbonate 25 mEq/L (21-32); Bilirubin Total 0.3 mg/dL (0.2-1.0); Globulin 4.3 g/dL (2.3-3.5); Glomerular Filtration Rate 114 ml/min (=/>90); Glucose Level 90 mg/dL (74-106); Magnesium 1.9 mg/dL (1.6-2.4); Potassium 3.8 mEq/L (3.5-5.1); Protein, Total 7.1 g/dL (6.4-8.2); Sodium Level 141 mEq/L (136-145)
[2024-06-08 06:43] LABS: ALT/SGPT < 14 U/L (13-56); AST/SGOT < 10 U/L (15-37)
--- NOTE | 2024-06-08 13:22 | P.PN ---
Subjective Date of Service: 06/08/24 Chief Complaint: Fever and abdominal pain Patient has no new complaint. No recorded fever. Patient is tolerating diet. Physical Examination - Vital Signs Temperature: 97.3 F Blood Pressure: 122/69 Pulse: 98 Respirations: 16 Pulse Ox (%): 97 Assessment And Plan - Plan Physical examination General: Alert and oriented x3, NAD, HEENT: Conjunctiva not pale, anicteric sclera Neck: No elevated JVD Heart: Heart sounds 1 and 2 normal, regular rhythm, normal rate, no pedal edema Lungs: Clear to auscultation bilaterally, adequate breath sounds bilaterally, no rhonchi or crackles. Abdomen: Soft, nondistended, nontender, normal bowel sounds. Nephrostomy tubes- back Extremities: No tenderness, no deformity Skin: Normal skin turgor, stage II sacral pressure ulcer. Neuro: Paraplegia, normal speech. Psychiatry: Normal mood, no agitation. Diagnosis Complicated UTI Chronic anemia Ileostomy in place H/O ureterostomy Spina bifida GERD Hypertension Plan: Complicated UTI History of MDR infection Urine cultures growing gram-negative rods, organism ID and sensitivities pending. Continue IV meropenem Follow urine culture Blood cultures yielded no growth. Chronic anemia Stable Monitor CBC. History of paraplegia Sacral decubitus ulcer stage 2 Spina bifida Patient is wheelchair-bound Local wound care Pressure ulcer precautions. DVT prophylaxis: Lovenox
[2024-06-08] MEDS: ASPIRIN 81 MG CHEWABLE TABLET PO SCH (14:00)
[2024-06-08] MEDS: SERTRALINE HCL 100 MG TAB PO SCH (14:00)
[2024-06-08] MEDS: SENOSIDES 8.6 MG TAB PO SCH (14:00)
--- NOTE | 2024-06-08 16:59 | EKG ---
Test Date: 2024-06-06 Test Time: 13:37:43 Aed Trainer: ARMIN MEASUREMENT RESULTS: Intervals: Rate: 98 OH: 200 QRSD: 84 QT: 388 QTc: 495 [place]: P: 47 OH: 200 QRS: 24 T: 25 INTERPRETIVE STATEMENTS: Normal sinus rhythm Nonspecific T wave abnormality Prolonged QT Abnormal ECG Compared to ECG 03/19/2024 14:38:26 Prolonged QT interval now present Sinus tachycardia no longer present T-wave abnormality still present Electronically Signed On 06-08-24 16:52:03 CDT by Dawson Taylor
[2024-06-08] MEDS: ENOXAPARIN 40 MG/0.4 ML SQ SCH (18:35)
[2024-06-08] MEDS: ONDANSETRON 4 MG/2 ML VIAL IV PRN (18:35)
[2024-06-08] MEDS: DOCUSATE NA 100 MG CAP PO SCH (22:52)
[2024-06-09 07:47] LABS: Albumin 2.7 g/dL (3.4-5.0); Albumin/Globulin Ratio 0.6 (1.1-1.8); Alkaline Phosphatase 41 U/L (45-117); Anion Gap 5.7 mEq/L (5.0-15.0); BUN Blood Urea Nitrogen 7 mg/dL (7-18); Bicarbonate 27 mEq/L (21-32); Bilirubin Total 0.3 mg/dL (0.2-1.0); Globulin 4.3 g/dL (2.3-3.5); Glomerular Filtration Rate 113 ml/min (=/>90); Glucose Level 89 mg/dL (74-106); Magnesium 1.9 mg/dL (1.6-2.4); Potassium 3.7 mEq/L (3.5-5.1); Sodium Level 142 mEq/L (136-145)
[2024-06-09 07:49] LABS: ALT/SGPT < 14 U/L (13-56); AST/SGOT < 10 U/L (15-37)
[2024-06-09] MEDS: Mupirocin NASAL 2 APPL/1 GM TUBE NAS SCH (09:00)
[2024-06-09 09:09] LABS: Absolute Eosinophils 0.3 K/uL (0-0.5); Absolute Lymphocytes (CBC) 1.3 K/uL (0.7-4.9); Absolute Monocytes 0.4 K/uL (0.1-1.3); Basophils % 0.4 % (0-1.3); Eosinophils % 5.2 % (0-4.4); Hematocrit 35.7 % (36.0-45.0); Hemoglobin 11.2 g/dL (12.0-15.0); Lymphocytes % 25.5 % (15.3-44.8); MCH 27.4 pg (27.0-35.0); MCHC 31.3 g/dL (32.0-36.0); MCV 87.3 fL (80-100); Monocytes % 8.1 % (3.3-12.3); Neutrophils % 60.8 % (41.7-73.7); Nucleated Red Blood Cells % 0.2 % (0-0); Platelets 373 thou/uL (152-406); RBC Red Blood Cell Count 4.09 M/uL (3.86-4.86)
--- NOTE | 2024-06-09 12:58 | P.PN ---
Subjective Date of Service: 06/09/24 Chief Complaint: ESBL infection Subjective: Improving (Is improving doing much better no new complaint) Review of Systems 10-point ROS is otherwise unremarkable Physical Examination - Vital Signs Temperature: 97.9 F Blood Pressure: 135/80 Pulse: 86 Respirations: 16 Pulse Ox (%): 96 - Physical Exam General: Alert, Oriented x3 Respiratory: Clear to auscultation bilaterally Cardiovascular: No edema, Regular rate/rhythm - Studies Microbiology Data (last 24 hrs): 06/06/24 13:24 Catheterized Urine [place] Count - Final >100,000 CFU/ML. Assessment And Plan - Current Problems (Diagnosis) (1) ESBL (extended spectrum beta-lactamase) producing bacteria infection Current Visit: Yes Status: Acute Plan: Has ESBL infection will be scheduled to have a PICC line in addition to IV antibiotics for a total of 2 weeks of meropenem at home resolved reviewed white count is stable signs all satisfactory to be set up with the IV meropenem at home will discharge
[2024-06-09] MEDS: PROMETHAZINE INJ 25 MG/ML AMP IV PRN (18:40)
[2024-06-10] MEDS: METOPROLOL XL 25 MG TAB PO ONE (00:53)
[2024-06-10] MEDS: METOPROLOL XL 25 MG TAB PO SCH (06:00)
[2024-06-10 06:55] LABS: Absolute Basophils 0.1 K/uL (0-0.5); Absolute Eosinophils 0.2 K/uL (0-0.5); Absolute Lymphocytes (CBC) 1.4 K/uL (0.7-4.9); Absolute Monocytes 0.5 K/uL (0.1-1.3); Absolute Neutrophil 4.7 K/uL (1.8-8.0); Basophils % 0.8 % (0-1.3); Eosinophils % 3.6 % (0-4.4); Hematocrit 35.1 % (36.0-45.0); Hemoglobin 11.4 g/dL (12.0-15.0); Lymphocytes % 19.9 % (15.3-44.8); MCHC 32.4 g/dL (32.0-36.0); MCV 86.4 fL (80-100); MPV 6.5 fL (7.6-11.3); Monocytes % 6.8 % (3.3-12.3); Neutrophils % 68.9 % (41.7-73.7); Nucleated Red Blood Cells % 0.1 % (0-0); Platelets 396 thou/uL (152-406); RBC Red Blood Cell Count 4.06 M/uL (3.86-4.86); Red Cell Distribution Width 15.4 % (12.1-15.2)
[2024-06-10 07:11] LABS: ALT/SGPT < 14 U/L (13-56); AST/SGOT < 10 U/L (15-37); Albumin 2.7 g/dL (3.4-5.0); Albumin/Globulin Ratio 0.6 (1.1-1.8); Alkaline Phosphatase 42 U/L (45-117); Anion Gap 5.8 mEq/L (5.0-15.0); BUN Blood Urea Nitrogen 7 mg/dL (7-18); Bicarbonate 28 mEq/L (21-32); Bilirubin Total 0.2 mg/dL (0.2-1.0); Globulin 4.2 g/dL (2.3-3.5); Glomerular Filtration Rate 113 ml/min (=/>90); Glucose Level 98 mg/dL (74-106); Potassium 3.8 mEq/L (3.5-5.1); Protein, Total 6.9 g/dL (6.4-8.2); Sodium Level 143 mEq/L (136-145)
--- NOTE | 2024-06-10 09:55 | P.PN ---
Subjective Date of Service: 06/10/24 Chief Complaint: ESBL infection Subjective: Improving (Patient is improving no new complaints) Review of Systems 10-point ROS is otherwise unremarkable Physical Examination - Vital Signs Temperature: 98.8 F Blood Pressure: 113/76 Pulse: 90 Respirations: 18 Pulse Ox (%): 94 - Physical Exam General: Alert, In no apparent distress, Oriented x3 Respiratory: Clear to auscultation bilaterally - Studies Microbiology Data (last 24 hrs): 06/06/24 13:24 Catheterized Urine [place] Count - Final >100,000 CFU/ML. Assessment And Plan - Current Problems (Diagnosis) (1) ESBL (extended spectrum beta-lactamase) producing bacteria infection Current Visit: Yes Status: Acute Plan: Patient is doing much better no new complaints has a midline placed discharge planning labs reviewed unremarkable has a mild tachycardia pending approval of home antibiotics stable for discharge
[2024-06-11] MEDS: NA CHLORIDE 0.9% 100 ML ONE (05:53)
--- NOTE | 2024-06-11 08:47 | P.PN ---
Subjective Date of Service: 06/11/24 Chief Complaint: ESBL infection Subjective: Improving (No new complaints noticed some wheezing today prior history of wheezing) Review of Systems Unremarkable Physical Examination - Vital Signs Temperature: 97.8 F Blood Pressure: 148/84 Pulse: 94 Respirations: 16 Pulse Ox (%): 94 - Physical Exam General: Alert, In no apparent distress, Oriented x3 Respiratory: Clear to auscultation bilaterally Cardiovascular: No edema, Regular rate/rhythm - Studies Microbiology Data (last 24 hrs): 06/06/24 13:24 Catheterized Urine [place] Count - Final >100,000 CFU/ML. Assessment And Plan - Current Problems (Diagnosis) (1) ESBL (extended spectrum beta-lactamase) producing bacteria infection Current Visit: Yes Status: Acute Plan: Is doing well white count is normal no evidence of sepsis awaiting home placement with IV antibiotics some wheezing add some as needed bronchodilators no prior history of obstructive airways disease nurses seem to have problem drawing blood from her midline was able to flush labs not drawn today
[2024-06-11] MEDS: ALBUTEROL 2.5 MG/3 ML NEB SOL NEB PRN (10:30)
--- NOTE | 2024-06-11 11:09 | P.PN ---
Date of Service: 06/11/24 Request last week for daily abx to replace Merrem as it is twice daily. A third organism grew in urine culture so a second antibiotic is going to be required. Please change Merrem request to Levaquin and Rocephin combination. Thank you.
[2024-06-11] MEDS: HYDRALAZINE HCL 20 MG/ML VIAL ONE (19:06)
[2024-06-11] MEDS: HYDROMORPHONE HCL 1 MG/ML INJ ONE (19:07)
[2024-06-11] MEDS: HYDROMORPHONE HCL 1 MG/ML INJ IV ONE (19:11)
[2024-06-11] MEDS: HYDRALAZINE HCL 20 MG/ML VIAL IV ONE (19:12)
[2024-06-11] MEDS: METOCLOPRAMIDE 10 MG/2mL INJ IV ONE (21:56)
[2024-06-12 06:03] LABS: Absolute Eosinophils 0.1 K/uL (0-0.5); Absolute Lymphocytes (CBC) 0.6 K/uL (0.7-4.9); Absolute Monocytes 0.4 K/uL (0.1-1.3); Absolute Neutrophil 5.3 K/uL (1.8-8.0); Basophils % 0.3 % (0-1.3); Hematocrit 37.5 % (36.0-45.0); Hemoglobin 11.6 g/dL (12.0-15.0); MCH 27.1 pg (27.0-35.0); MCHC 30.9 g/dL (32.0-36.0); MCV 87.8 fL (80-100); MPV 6.3 fL (7.6-11.3); Monocytes % 5.9 % (3.3-12.3); Neutrophils % 83.8 % (41.7-73.7); Platelets 430 thou/uL (152-406); RBC Red Blood Cell Count 4.27 M/uL (3.86-4.86); Red Cell Distribution Width 15.6 % (12.1-15.2)
[2024-06-12 06:31] LABS: Albumin/Globulin Ratio 0.7 (1.1-1.8); Anion Gap 4.6 mEq/L (5.0-15.0); Bilirubin Total 0.2 mg/dL (0.2-1.0); Globulin 4.2 g/dL (2.3-3.5); Magnesium 1.9 mg/dL (1.6-2.4); Potassium 3.6 mEq/L (3.5-5.1); Protein, Total 7.2 g/dL (6.4-8.2)
--- NOTE | 2024-06-12 09:20 | P.PN ---
Date of Service: 06/12/24 subjective reports chills, headache, shortness of breath, on O2 2 L Review of Systems 10-point ROS is otherwise unremarkable Review of Systems -10 point review of system negative unless listed in HPI Vital Signs reviewed - Physical Examination General: Alert, In no apparent distress, Oriented x3, HEENT: Atraumatic, PERRLA, Mucous membr. moist/pink, EOMI, Sclerae nonicteric Neck: Supple, 2+ carotid pulse no bruit, No LAD, Without JVD or thyroid abnormality Respiratory: , Normal air movement, diminished on 02 2L NC Cardiovascular: Regular rate/rhythm, Normal S1 S2 Gastrointestinal: Normal bowel sounds, No tenderness, Other (Abdominal wall hernias) Musculoskeletal: No tenderness, congenital paraplegia, bedbound Integumentary: Skin lesion, stage II pressure ulcer Neurological: Sensation intact, Cranial nerves 3-12 intact, Abnormal gait, Abnormal strength, Abnormal tone Female Exam - Female Pelvic Uterus: Other (Prolapsed uterus) Assessment & Plan - Problems (Diagnosis) (1) Urinary tract infectious disease Onset Date: 06/26/14 Current Visit: No Status: Active Urine cultures positive for E. coli, Pseudomonas, Enterococcus faecalis, Plan to discharge home, home health care, custodial, with IV antibiotics, Rocephin 1 g daily, Levaquin 500 daily stop 06/16, (2) Acute on chronic anemia Current Visit: No Status: Acute (3) Depression Current Visit: No Status: Chronic Qualifiers: Depression Type: unspecified Qualified Code(s): F32.9 - Major depressive disorder, single episode, unspecified (4) H/O ureterostomy Current Visit: No Status: Chronic (5) Hypertension Current Visit: No Status: Chronic Qualifiers: Hypertension type: essential hypertension Qualified Code(s): I10 - Essential (primary) hypertension (6) Ileostomy in place Current Visit: No Status: Chronic (7) Spina bifida Onset Date: 09/30/17 Current Visit: No Status: Chronic Qualifiers: Presence of hydrocephalus: unspecified hydrocephalus presence (8) GERD (gastroesophageal reflux disease) Current Visit: No Status: Suspected Qualifiers: Esophagitis presence: esophagitis presence not specified Qualified Code(s): K21.9 - Gastro-esophageal reflux disease without esophagitis (09) spina bifida, congenital paraplegic -chronic Fall precaution, (10) bedbound -chronic Encouraged to turn every 2 hours, to avoid skin breakdown (11) stage II sacral ulcer-acute on chronic Patient educated to shift weight to avoid pressure every 2 hours (12)acute heart failure CXR mild CHF, treated with lasix - Plan Plan: 1. Continue with gentle hydration 2. Continue with IV antibiotics for multidrug-resistant UTI 3. Urine culture E. coli, Pseudomonas, Enterococcus faecalis, 4. Check labs 5. Wound care for stage II sacral decubitus ulcer 6. Outpatient [facility] follow-up for prolapsed uterus 7. Blood cultures no growth 24-hour 8. 4+ gram-negative rods, currently on meropenem 9. Stage II sacral ulcer present on arrival, turn every 2 hours to prevent skin breakdown 10. Follow-up with [facility] Ap for nephrostomy tube 11. 06/12 Blood culture flu, COVID, chest x-ray for chills 12. Room air sats to al for home O2 Discharge Plan: Home Plan to discharge in: Greater than 2 days, patient uses [facility] home health - Advance Directives Does patient have a Living Will: Yes Does patient have a Durable POA for Healthcare: Yes - Code Status/Comfort Care Code Status Assessed: Yes Code Status: Full Code Critical Care: No ]Time with patient 35 min <Darlene Richardson - Last Filed: 06/12/24 20:39> Patient was seen and examined. Events of the last 24 hours have been noted. Spoke with with VALENTINO regarding patient's clinical picture after evaluating and examining the patient independently. I performed a substantial part of the MDM during this patient's care today. I personally made or approved the documented management plan and acknowledge its risk of complications. I agree with the findings and documentation provided in the VALENTINO's notes. <Lorraine Earl - Last Filed: 07/03/24 02:18>
--- NOTE | 2024-06-12 12:20 | RAD REPORT ---
EXAMINATION: ONE VIEW CHEST XR CLINICAL INDICATION: short of breath TECHNIQUE: Frontal chest projection is submitted. Examination is limited by patient positioning and t echnique. COMPARISON: 03/19/2024 FINDINGS: Examination is quite limited due to patient positioning and technique. Chronic moderate left pleural effusion noted with catheter tubing in place. Mild volume overload may be present. Heart size is enlarged. SVC filter noted. No displaced fractures identified. Significant thoracic dextroscoliosis is present. IMPRESSION: Limited study favors mild CHF or volume overload pattern. Chronic moderate size left pleural effusion.
[2024-06-12] MEDS: HYDROMORPHONE HCL 1 MG/ML INJ IV ONE (14:12)
[2024-06-12] MEDS: FUROSEMIDE 40 MG/4 ML VIAL IV ONE (14:13)
[2024-06-13 05:53] LABS: Absolute Eosinophils 0.3 K/uL (0-0.5); Absolute Lymphocytes (CBC) 1.1 K/uL (0.7-4.9); Absolute Monocytes 0.7 K/uL (0.1-1.3); Absolute Neutrophil 4.8 K/uL (1.8-8.0); Basophils % 0.4 % (0-1.3); Eosinophils % 4.1 % (0-4.4); Hematocrit 39.2 % (36.0-45.0); Hemoglobin 12.2 g/dL (12.0-15.0); Lymphocytes % 16.3 % (15.3-44.8); MCH 27.5 pg (27.0-35.0); MCHC 31.2 g/dL (32.0-36.0); MCV 88.4 fL (80-100); MPV 7.6 fL (7.6-11.3); Monocytes % 9.6 % (3.3-12.3); Neutrophils % 69.6 % (41.7-73.7); Nucleated Red Blood Cells % 0.1 % (0-0); RBC Red Blood Cell Count 4.43 M/uL (3.86-4.86); Red Cell Distribution Width 15.4 % (12.1-15.2)
[2024-06-13] MEDS: FUROSEMIDE 40 MG/4 ML VIAL IV SCH (05:54)
[2024-06-13 06:01] LABS: Platelets 327 thou/uL (152-406)
[2024-06-13 06:18] LABS: Albumin 2.9 g/dL (3.4-5.0); Anion Gap 6.5 mEq/L (5.0-15.0); Potassium 3.5 mEq/L (3.5-5.1)
[2024-06-13] MEDS ORDERED: Levofloxacin 750mg IV 750 MG/150 ML BAG IV SCH (08:00)
--- NOTE | 2024-06-13 08:03 | P.DS ---
Admission Date: 06/06/24 Discharge Date: 06/16/24 Reason for Admission: ESBL infection Brief History of Present Illness: Patient is a 43 yrs old Female with past medical history of spina bifida, nephrolithiasis, recurrent UTI, status post colostomy, nephrostomy & urostomy, who was brought to ER with nausea, Along with generalized pain. Patient recently with nephrostomy tube secondary to renal stone, and patient also with J stent placement through the urostomy. Patient presents with fever along with shakes and chills. Patient with cloudy urine. Patient states that she has been feeling fatigue so she came to the ER for further evaluation. In the ER, patient had a urine analysis which revealed a UTI. Patient with history of multidrug-resistant UTIs and will start on meropenem. Otherwise, patient does have prolapsed uterus as well as stage I sacral wound. Patient will be admitted to the hospital for treatment of the UTI. - Physical Exam General: Alert, In no apparent distress, Oriented x3 HEENT: Atraumatic, PERRLA, Mucous membr. moist/pink, EOMI, Sclerae nonicteric Neck: Supple, 2+ carotid pulse no bruit, No LAD, Without JVD or thyroid abnormality Respiratory: Clear to auscultation bilaterally, Normal air movement Cardiovascular: Regular rate/rhythm, Normal S1 S2 Gastrointestinal: Normal bowel sounds, No tenderness, Other (Abdominal wall hernias) Musculoskeletal: No tenderness Integumentary: Skin lesion, Pressure ulcer Neurological: Sensation intact, Cranial nerves 3-12 intact, Abnormal gait, Abnormal strength, Abnormal tone Lymphatics: No axilla or inguinal lymphadenopathy Hospital Course: 43 yrs old Female with past medical history of spina bifida, nephrolithiasis, recurrent UTI, status post colostomy, nephrostomy & urostomy, who was brought to ER with nausea, Along with generalized pain. Patient recently with nephrostomy tube secondary to renal stone, and patient also with J stent placement through the urostomy. Patient presents with fever along with shakes and chills. Patient with cloudy urine. Patient states that she has been feeling fatigue so she came to the ER for further evaluation. In the ER, patient had a urine analysis which revealed a UTI. Patient with history of multidrug-resistant UTIs and will start on meropenem. Otherwise, patient does have prolapsed uterus as well as stage I sacral wound. Patient will be admitted to the hospital for treatment of the UTI. She was treated with IV meropenem, tolerating diet, She also had pleural effusion, and status post thoracentesis, 600 ml removed. stable to discharge home with home health with IV antibiotics.Follow up with [facility] urology after discharge Discharge medications discharge home on Levaquin daily, Augmentin twice daily total of 14 days Lactobacillus BID Assessment Acute hypoxic respiratory failure secondary to pleural effusion, mild CHF Room air sats 85 to 90%, Plan to order home O2 for discharge Complicated Acute Cystitis,. recurrent UTI, status post colostomy, nephrostomy & urostomy-Follow up with [facility] US guided [id number] ultrasound guided thoracentesis, yielding 600 mL of clear fluid. Additional procedure(s): Limited thoracic ultrasound. PLAN: Aspirated fluid was sent for analysis labs sent Urine culture UTI positive for E. coli, Pseudomonas, Enterococcus faecalis, Continue home medicines as previously prescribed GOAL: Clear understanding of disease process INSTRUCTIONS: Physician Discharge Instructions: -Follow-up with PCP in 1 to 2 weeks -Please call Dr. Earl at [phone] if any questions regarding hospital stay -Please call nursing station at [phone] if any nursing or medication questions -Return to the emergency room if symptoms worsen Diet: ADA, low sodium Activity: Fall precautions <Darlene Richardson - Last Filed: 06/19/24 15:57> Admission Date: 06/06/24 Discharge Date: 06/16/24 - Problems (1) Urinary tract infectious disease Onset Date: 06/26/14 Status: Active (2) Acute on chronic anemia Status: Acute (3) UTI (urinary tract infection) Status: Acute Qualifiers: Urinary tract infection type: site unspecified Hematuria presence: without hematuria Qualified Code(s): N39.0 - Urinary tract infection, site not specified (4) Depression Status: Chronic Qualifiers: Depression Type: unspecified Qualified Code(s): F32.9 - Major depressive disorder, single episode, unspecified (5) H/O ureterostomy Status: Chronic (6) Hypertension Status: Chronic Qualifiers: Hypertension type: essential hypertension Qualified Code(s): I10 - Essential (primary) hypertension (7) Ileostomy in place Status: Chronic (8) Spina bifida Onset Date: 09/30/17 Status: Chronic Qualifiers: Presence of hydrocephalus: unspecified hydrocephalus presence (9) GERD (gastroesophageal reflux disease) Status: Suspected Qualifiers: Esophagitis presence: esophagitis presence not specified Qualified Code(s): K21.9 - Gastro-esophageal reflux disease without esophagitis Hospital Course: Patient was seen and examined. Events of the last 24 hours have been noted. Spoke with with VALENTINO regarding patient's clinical picture after evaluating and examining the patient independently. I performed a substantial part of the MDM during this patient's care today. I personally made or approved the documented management plan and acknowledge its risk of complications. I agree with the findings and documentation provided in the VALENTINO's notes. Patient had prolonged hospitalization. Repeat hospitalization for respiratory issues in the past. Patient was treated with antibiotics for multi-drug resistant UTI. Patient with history of colostomy along with nephrostomy and urostomy. Patient normally follows up at [facility]. 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 s/p thoracentesis. Patient is doing well after the thoracentesis and patient is stable for discharge home. <Lorraine Earl - Last Filed: 07/03/24 02:21> Disposition: DC HOME/HOME HEALTH CARE Discharge Condition: GOOD Vital Signs/Physical Exam: Temp Pulse Resp BP Pulse Ox 97.7 F 95 H 16 154/79 H 95 06/13/24 04:00 06/13/24 05:54 06/13/24 05:51 06/13/24 05:54 06/13/24 05:51 Laboratory Data at Discharge: WBC 6.90 thou/uL (4.3-10.9) 06/13/24 05:46 Hgb 12.2 g/dL (12.0-15.0) 06/13/24 05:46 Hct 39.2 % (36.0-45.0) 06/13/24 05:46 Plt Count 327 thou/uL (152-406) 06/13/24 05:46 PT 12.5 SECONDS (9.4-12.5) 06/06/24 13:16 INR 1.12 06/06/24 13:16 APTT 34.2 SECONDS (24.3-36.9) 06/06/24 13:16 Sodium 142 mEq/L (136-145) 06/13/24 05:46 Potassium 3.5 mEq/L (3.5-5.1) 06/13/24 05:46 BUN 9 mg/dL (7-18) 06/13/24 05:46 Creatinine 0.64 mg/dL (0.55-1.02) 06/13/24 05:46 Glucose 85 mg/dL (74-106) 06/13/24 05:46 Phosphorus 2.0 mg/dL (2.5-4.9) L 06/13/24 05:46 Magnesium 2.0 mg/dL (1.6-2.4) 06/13/24 05:46 Total Bilirubin 0.2 mg/dL (0.2-1.0) 06/12/24 05:55 AST 15 U/L (15-37) 06/12/24 05:55 ALT 18 U/L (13-56) 06/12/24 05:55 Alkaline Phosphatase 40 U/L (45-117) L 06/12/24 05:55 <Darlene Richardson - Last Filed: 06/19/24 15:57> Vital Signs/Physical Exam: Temp Pulse Resp BP Pulse Ox 98.2 F 100 H 16 98/72 96 06/16/24 12:00 06/16/24 12:00 06/16/24 12:11 06/16/24 12:00 06/16/24 12:11 General: Alert, In no apparent distress, Oriented x3 Laboratory Data at Discharge: WBC 8.90 thou/uL (4.3-10.9) 06/15/24 10:30 Hgb 12.8 g/dL (12.0-15.0) 06/15/24 10:30 Hct 40.7 % (36.0-45.0) 06/15/24 10:30 Plt Count 409 thou/uL (152-406) H 06/15/24 10:30 PT 14.9 SECONDS (9.4-12.5) H 06/16/24 06:24 INR 1.34 06/16/24 06:24 APTT 36.9 SECONDS (24.3-36.9) 06/16/24 06:24 Sodium 142 mEq/L (136-145) 06/13/24 05:46 Potassium 3.5 mEq/L (3.5-5.1) 06/13/24 05:46 BUN 9 mg/dL (7-18) 06/13/24 05:46 Creatinine 0.64 mg/dL (0.55-1.02) 06/13/24 05:46 Glucose Cancelled 06/16/24 Unknown Phosphorus 2.0 mg/dL (2.5-4.9) L 06/13/24 05:46 Magnesium 2.0 mg/dL (1.6-2.4) 06/13/24 05:46 Total Bilirubin 0.2 mg/dL (0.2-1.0) 06/12/24 05:55 AST 15 U/L (15-37) 06/12/24 05:55 ALT 18 U/L (13-56) 06/12/24 05:55 Alkaline Phosphatase 40 U/L (45-117) L 06/12/24 05:55 <Lorraine Earl - Last Filed: 07/03/24 02:21> Diet: AHA Activity: Fall precautions Time spent managing pt's care (in minutes): 55 <Darlene Richardson - Last Filed: 06/19/24 15:57> <Lorraine Earl - Last Filed: 07/03/24 02:21> Home Medications: Zolpidem Tartrate 1 tab PO BEDTIME 10/21/18 Diphenhydramine HCl [Benadryl Allergy] 1 tab PO BID 02/23/22 Sertraline [Zoloft*] 1 tab PO BID 02/23/22 Amlodipine Besylate 1 tab PO DAILY #90 tab 03/15/24 Metoprolol Succinate 25 mg PO DAILY #90 tab 03/15/24 Aspirin Chewable [Aspirin Chewable*] 81 mg PO DAILY 06/06/24 Promethazine HCl 12.5 mg PO Q6HP PRN 06/06/24 Sennosides [Senokot] 8.6 mg PO DAILY 06/06/24 hydroCHLOROthiazide [Hydrochlorothiazide] 25 mg PO DAILY 06/06/24 Acidophilus/Bifido Longum [Lactobacillus Capsule] 16 mg PO DAILY #7 tab 06/13/24 Amox/Clavulanate [Augmentin 875-125 Tab] 1 each PO BID 7 Days #14 tab 06/13/24 Docusate [Colace Cap*] 100 mg PO BID cap 06/13/24 levoFLOXacin [Levaquin] 750 mg PO DAILY 7 Days #7 tab 06/13/24 New Medications: Amox/Clavulanate [Augmentin 875-125 Tab] 1 each PO BID 7 Days #14 tab Acidophilus/Bifido Longum [Lactobacillus Capsule] 16 mg PO DAILY #7 tab levoFLOXacin [Levaquin] 750 mg PO DAILY 7 Days #7 tab Physician Discharge Instructions: 43 yrs old Female with past medical history of spina bifida, nephrolithiasis, recurrent UTI, status post colostomy, nephrostomy & urostomy, who was brought to ER with nausea, Along with generalized pain. Patient recently with nephrostomy tube secondary to renal stone, and patient also with J stent placement through the urostomy. Patient presents with fever along with shakes and chills. Patient with cloudy urine. Patient states that she has been feeling fatigue so she came to the ER for further evaluation. In the ER, patient had a urine analysis which revealed a UTI. Patient with history of multidrug-resistant UTIs and will start on meropenem. Otherwise, patient does have prolapsed uterus as well as stage I sacral wound. Patient will be admitted to the hospital for treatment of the UTI. She was treated with IV meropenem, tolerating diet, stable to discharge home with oral antibiotic therapy with Levaquin and Augmentin. Follow up with [facility] urology after discharge Patient is discharge was prolonged because patient developed some hypoxemia and reactive arrange for home oxygen. This was related to right-sided pleural effusion. 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 Patient had a thoracentesis which she normally gets every 6 months. She is doing well and she should be discharged home after her thoracentesis. Assessment Complicated Acute Cystitis, discharge home on Levaquin daily, Augmentin twice daily total of 14 days of antibiotics. recurrent UTI, status post colostomy, nephrostomy & urostomy Follow up with [facility] hypoxia, home 02 ordered for home Urine culture UTI positive for E. coli, Pseudomonas, Enterococcus faecalis, Continue home medicines as previously prescribed GOAL: Clear understanding of disease process INSTRUCTIONS: Physician Discharge Instructions: -Follow-up with PCP in 1 to 2 weeks -Please call Dr. Earl at [phone] if any questions regarding hospital stay -Please call nursing station at [phone] if any nursing or medication questions -Return to the emergency room if symptoms worsen Diet: ADA, low sodium Activity: Fall precautions Followup: GASTON FELDMAN [Primary Care Provider] -
[2024-06-13] MEDS: AMOX/K CLAV 875 MG TAB PO SCH (08:43)
[2024-06-13] MEDS: levoFLOXacin 750 MG TAB PO SCH (08:43)
[2024-06-13] MEDS: HYDROMORPHONE HCL 0.5 MG/0.5 ML INJ IV SCH (09:36)
[2024-06-13] MEDS: ONDANSETRON 4 MG/2 ML VIAL IV ONE (14:29)
[2024-06-13] MEDS: HYDROMORPHONE HCL 0.5 MG/0.5 ML INJ IV ONE ×2 (14:32→22:18)
--- NOTE | 2024-06-13 15:05 | P.PN ---
Date of Service: 06/13/24 subjective Complaint of shortness of breath, abdominal pain, CT of the chest abdomen pelvis ordered, Discharge canceled, Review of Systems 10-point ROS is otherwise unremarkable Review of Systems -10 point review of system negative unless listed in HPI Vital Signs reviewed - Physical Examination General: Alert, In no apparent distress, Oriented x3, HEENT: Atraumatic, PERRLA, Mucous membr. moist/pink, EOMI, Sclerae nonicteric Neck: Supple, 2+ carotid pulse no bruit, No LAD, Without JVD or thyroid abnormality Respiratory: , Normal air movement, diminished on 02 2L NC Cardiovascular: Regular rate/rhythm, Normal S1 S2 Gastrointestinal: Normal bowel sounds, No tenderness, Other (Abdominal wall hernias) Musculoskeletal: No tenderness, congenital paraplegia, bedbound Integumentary: Skin lesion, stage II pressure ulcer Neurological: Sensation intact, Cranial nerves 3-12 intact, Abnormal gait, Abnormal strength, Abnormal tone Female Exam - Female Pelvic Uterus: Other (Prolapsed uterus) Assessment & Plan - Problems (Diagnosis) (1) Urinary tract infectious disease Onset Date: 06/26/14 Current Visit: No Status: Active Urine cultures positive for E. coli, Pseudomonas, Enterococcus faecalis, Plan to discharge home, home health care, [facility], with IV antibiotics, Rocephin 1 g daily, Levaquin 500 daily stop 06/16, (2) Acute on chronic anemia Current Visit: No Status: Acute (3) Depression Current Visit: No Status: Chronic Qualifiers: Depression Type: unspecified Qualified Code(s): F32.9 - Major depressive disorder, single episode, unspecified (4) H/O ureterostomy Current Visit: No Status: Chronic (5) Hypertension Current Visit: No Status: Chronic Qualifiers: Hypertension type: essential hypertension Qualified Code(s): I10 - Essential (primary) hypertension (6) Ileostomy in place Current Visit: No Status: Chronic (7) Spina bifida Onset Date: 09/30/17 Current Visit: No Status: Chronic Qualifiers: Presence of hydrocephalus: unspecified hydrocephalus presence (8) GERD (gastroesophageal reflux disease) Current Visit: No Status: Suspected Qualifiers: Esophagitis presence: esophagitis presence not specified Qualified Code(s): K21.9 - Gastro-esophageal reflux disease without esophagitis (09) spina bifida, congenital paraplegic -chronic Fall precaution, (10) bedbound -chronic Encouraged to turn every 2 hours, to avoid skin breakdown (11) stage II sacral ulcer-acute on chronic Patient educated to shift weight to avoid pressure every 2 hours (12) acute hypoxic respiratory failure secondary to acute heart failure from IV fluids, CXR mild CHF, treated with lasix CT of the chest abdomen pelvis ordered Home O2 ordered for room air sats 85 - Plan Plan: 1. Continue with gentle hydration 2. Continue with IV antibiotics for multidrug-resistant UTI 3. Urine culture E. coli, Pseudomonas, Enterococcus faecalis, 4. Check labs 5. Wound care for stage II sacral decubitus ulcer 6. Outpatient [facility] follow-up for prolapsed uterus 7. Blood cultures no growth 24-hour 8. 4+ gram-negative rods, currently on meropenem 9. Stage II sacral ulcer present on arrival, turn every 2 hours to prevent skin breakdown 10. Follow-up with [facility] Ap for nephrostomy tube 11. 06/12 Blood culture flu, COVID, chest x-ray for chills 12. Room air sats to eval for home O2 Discharge Plan: Home Plan to discharge in: Greater than 2 days, patient uses [facility] - Advance Directives Does patient have a Living Will: Yes Does patient have a Durable POA for Healthcare: Yes - Code Status/Comfort Care Code Status Assessed: Yes Code Status: Full Code Critical Care: No ]Time with patient 35 min <Darlene Richardson - Last Filed: 06/13/24 15:03> Patient was seen and examined. Events of the last 24 hours have been noted. Spoke with with VALENTINO regarding patient's clinical picture after evaluating and examining the patient independently. I performed a substantial part of the MDM during this patient's care today. I personally made or approved the documented management plan and acknowledge its risk of complications. I agree with the findings and documentation provided in the VALENTINO's notes. <Lorraine Earl - Last Filed: 07/03/24 02:18>
[2024-06-13 15:38] LABS: SARS-CoV-2 Antigen CONTROL BLUE LINE VIS/BG OK; SARS-CoV-2 Antigen Rapid Res Negative (Negative)
--- NOTE | 2024-06-13 17:24 | RAD REPORT ---
EXAMINATION: CT Abdomen Pelvis W Contrast CLINICAL INDICATION: Female, 43 years old. shortness of breath TECHNIQUE: CT abdomen and pelvis was performed, after the administration of 100 mL Isovue 300 intrave nously, as per department protocol. Axial, sagittal and coronal reconstructions were obtained. One or more of the following dose reduction techniques were used: Automated exposure control, adjustment of the mA and kV according to patient size, and iterative reconstruction. Unless otherwise specified, incidental findings do not require dedicated imaging follow-up. COMPARISON: 06/06/2024 FINDINGS: LOWER CHEST: Progressive layering large left pleural effusion with progressive atelectasis more so th e left lower lobe. Stable positioning of left pleural drainage catheter. Subsegmental right upper and right lower lobe opacities, indeterminate, but favor atelectasis. LIVER: Normal in size and contour. No focal lesion. BILIARY SYSTEM: No suspicious abnormalities. SPLEEN: Normal size. No focal lesion. PANCREAS: No mass, ductal dilation, or raciel-pancreatic fluid. ADRENALS: Normal; no mass. KIDNEYS: Normal size and contour. No hydronephrosis. Sequelae of cystectomy and ileal conduit construction, with stable positioning of left percutaneous n ephrostomy tube and left ureteral stent. Right renal calcifications, largest at the lower pole measuring 8 mm, stable. GASTROINTESTINAL TRACT: No evidence of free air, significant intra-abdominal free fluid, bowel obstru ction or abscess. Sequelae of partial colonic resection with a left lower quadrant colostomy and mucous fistula again seen. Small parastomal hernia, stable. APPENDIX: Appendix not visualized, but no inflammatory changes in region of appendix. LYMPH NODES: No lymphadenopathy. MUSCULOSKELETAL: No acute or suspicious osseous abnormality. ADDITIONAL FINDINGS: Fibroid uterus. Diastasis recti. 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 IMPRESSION: Progressive layering large left pleural effusion. Subsegmental right upper and right lower lobe opacities, indeterminate, but favor atelectasis. Other stable findings as above.
[2024-06-13] MEDS: LEVALBUTEROL 0.63 MG/3 ML NEB NEB SCH (20:15)
[2024-06-14 06:15] LABS: Absolute Eosinophils 0.1 K/uL (0-0.5); Absolute Lymphocytes (CBC) 0.8 K/uL (0.7-4.9); Absolute Monocytes 0.6 K/uL (0.1-1.3); Absolute Neutrophil 4.6 K/uL (1.8-8.0); Basophils % 0.2 % (0-1.3); Eosinophils % 2.3 % (0-4.4); Hematocrit 38.3 % (36.0-45.0); Hemoglobin 12.3 g/dL (12.0-15.0); Lymphocytes % 12.9 % (15.3-44.8); MCH 28.2 pg (27.0-35.0); MCHC 32.1 g/dL (32.0-36.0); MCV 87.6 fL (80-100); MPV 6.5 fL (7.6-11.3); Monocytes % 10.3 % (3.3-12.3); Neutrophils % 74.3 % (41.7-73.7); Platelets 407 thou/uL (152-406); RBC Red Blood Cell Count 4.37 M/uL (3.86-4.86); Red Cell Distribution Width 15.4 % (12.1-15.2)
[2024-06-14] MEDS: FUROSEMIDE 40 MG/4 ML VIAL IV ONE (11:22)
[2024-06-14] MEDS: HYDROMORPHONE HCL 1 MG/ML INJ IV ONE ×2 (11:23→18:26)
--- NOTE | 2024-06-14 11:59 | RAD REPORT ---
EXAMINATION: ONE VIEW CHEST XR CLINICAL INDICATION: Female, 43 years old.,sob TECHNIQUE: Frontal chest projection is submitted. Examination is limited by patient positioning and t echnique. COMPARISON: 06/12/2024 FINDINGS: Patient rotation limits evaluation. Moderate to large left pleural effusion, perhaps slightly increas ed since the prior exam. Left catheter tubing, unchanged in position. SVC filter in place. No pneumothorax. Stable cardiomegaly IMPRESSION: Mildly progressive up to large left pleural effusion. Stable cardiomegaly.
[2024-06-14] MEDS ORDERED: METOPROLOL XL 25 MG TAB PO SCH (13:18)
--- NOTE | 2024-06-14 13:20 | P.PN ---
Date of Service: 06/14/24 subjective Complaint of shortness of breath, abdominal pain, CT of the chest shows moderate to large pleural effusion Lasix ordered for pleural effusion, as needed and analgesics for intractable pain Review of Systems 10-point ROS is otherwise unremarkable Review of Systems -10 point review of system negative unless listed in HPI Vital Signs reviewed - Physical Examination General: Alert, In no apparent distress, Oriented x3,mild distress HEENT: Atraumatic, PERRLA, Mucous membr. moist/pink, EOMI, Sclerae nonicteric Neck: Supple, 2+ carotid pulse no bruit, No LAD, Without JVD or thyroid abnormality Respiratory: , Normal air movement, diminished on 02 2L NC Cardiovascular: Regular rate/rhythm, Normal S1 S2 Gastrointestinal: Normal bowel sounds, No tenderness, Other (Abdominal wall hernias) Musculoskeletal: No tenderness, congenital paraplegia, bedbound Integumentary: Skin lesion, stage II pressure ulcer Neurological: Sensation intact, Cranial nerves 3-12 intact, Abnormal gait, Abnormal strength, Abnormal tone Female Exam - Female Pelvic Uterus: Other (Prolapsed uterus) Assessment & Plan - Problems (Diagnosis) (1) Urinary tract infectious disease Onset Date: 06/26/14 Current Visit: No Status: Active Urine cultures positive for E. coli, Pseudomonas, Enterococcus faecalis, Plan to discharge home, home health care, [place] [facility], with IV antibiotics, Rocephin 1 g daily, Levaquin 500 daily stop 06/16, (2) Acute on chronic anemia Current Visit: No Status: Acute (3) Depression Current Visit: No Status: Chronic Qualifiers: Depression Type: unspecified Qualified Code(s): F32.9 - Major depressive disorder, single episode, unspecified (4) H/O ureterostomy Current Visit: No Status: Chronic (5) Hypertension Current Visit: No Status: Chronic Qualifiers: Hypertension type: essential hypertension Qualified Code(s): I10 - Essential (primary) hypertension (6) Ileostomy in place Current Visit: No Status: Chronic (7) Spina bifida Onset Date: 09/30/17 Current Visit: No Status: Chronic Qualifiers: Presence of hydrocephalus: unspecified hydrocephalus presence (8) GERD (gastroesophageal reflux disease) Current Visit: No Status: Suspected Qualifiers: Esophagitis presence: esophagitis presence not specified Qualified Code(s): K21.9 - Gastro-esophageal reflux disease without esophagitis (09) spina bifida, congenital paraplegic -chronic Fall precaution, (10) bedbound -chronic Encouraged to turn every 2 hours, to avoid skin breakdown (11) stage II sacral ulcer-acute on chronic Patient educated to shift weight to avoid pressure every 2 hours (12) acute hypoxic respiratory failure secondary to large left pleural effusion CXR mild CHF, treated with lasix, CT of the chest chest mildly progressive up to large left pleural effusion. Stable cardiomegaly. Home O2 ordered, 06/14 99% on 2 L (13) intractable abdominal pain, Treated with as needed analgesia - Plan Plan: 1. Continue with gentle hydration 2. Continue with IV antibiotics for multidrug-resistant UTI 3. Urine culture E. coli, Pseudomonas, Enterococcus faecalis, 4. Check labs 5. Wound care for stage II sacral decubitus ulcer 6. 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 Blood cultures no growth 24-hour 8. 4+ gram-negative rods, currently on meropenem 9. Stage II sacral ulcer present on arrival, turn every 2 hours to prevent skin breakdown 10. Follow-up with [facility] Ap for nephrostomy tube 11. 06/12 Blood culture flu, COVID, chest x-ray for chills 12. Room air sats to eval for home O2 13. repeat CT of chest Mildly progressive up to large left pleural effusion. Stable cardiomegaly. Discharge Plan: Home Plan to discharge in: Greater than 2 days, [facility] - Advance Directives Does patient have a Living Will: Yes Does patient have a Durable POA for Healthcare: Yes - Code Status/Comfort Care Code Status Assessed: Yes Code Status: Full Code Critical Care: No ]Time with patient 35 min <Darlene Richardson - Last Filed: 06/14/24 13:12> Patient was seen and examined. Events of the last 24 hours have been noted. Spoke with with VALENTINO regarding patient's clinical picture after evaluating and examining the patient independently. I performed a substantial part of the MDM during this patient's care today. I personally made or approved the documented management plan and acknowledge its risk of complications. I agree with the findings and documentation provided in the VALENTINO's notes. <Lorraine Earl - Last Filed: 07/03/24 02:18>
[2024-06-14] MEDS ORDERED: METOPROLOL TARTRATE 5 MG/5 ML INJ IV STA (13:23)
[2024-06-14] MEDS: METOPROLOL TARTRATE 5 MG/5 ML INJ IV ONE (14:28)
[2024-06-14] MEDS: FUROSEMIDE 40 MG/4 ML VIAL IV SCH (16:54)
[2024-06-14] MEDS: METOPROLOL XL 25 MG TAB PO SCH (16:56)
[2024-06-15] MEDS ORDERED: MORPHINE 2 MG/ML SYR IV PRN (02:16)
[2024-06-15] MEDS ORDERED: METOPROLOL XL 50 MG TAB PO SCH (06:00)
--- NOTE | 2024-06-15 07:16 | ECHO ---
HEIGHT: 5 ft 0 in WEIGHT: 147 lb 0 oz DATE OF STUDY: 06/14/[address]: Darlene Richardson GIS SCIENTISTEstrella 2-DIMENSIONAL: YES M.MODE: YES DOPPLER: YES COLOR FLOW: YES TDS: YES PORTABLE: YES DEFINITY: BUBBLE STUDY: DIAGNOSIS: SHORTNESS OF BREATH CARDIAC HISTORY: CATHERIZATION: NO SURGERY: NO PROSTHETIC VALVE: NO PACEMAKER: NO MEASUREMENTS (cm) DIASTOLIC (NORMALS) SYSTOLIC (NORMALS) IVSd 1.1 (0.6-1.2) LA Diam 2.0 (1.9-4.0) LVEF 60-65% LVIDd 3.2 (3.5-5.7) LVIDs 2.3 (2.0-3.5) %FS LVPWd 1.1 (0.6-1.2) Ao Diam 2.5 (2.0-3.7) 2 DIMENSIONAL ASSESSMENT: RIGHT ATRIUM: NOT WELL VISUALIZED LEFT ATRIUM: NOT WELL VISUALIZED RIGHT VENTRICLE: NOT WELL VISUALIZED LEFT VENTRICLE: NORMAL TRICUSPID VALVE: TRACE TRICUSPID REGURGITATION MITRAL VALVE: NOT WELL VISUALIZED PULMONIC VALVE: NOT ASSESSED AORTIC VALVE: NORMAL PERICARDIAL EFFUSION: NONE AORTIC ROOT: NORMAL LEFT VENTRICULAR WALL MOTION: NORMAL DOPPLER/COLOR FLOW: NOT ASSESSED COMMENTS: 1. LIMITED VIEWS 2. GROSSLY NORMAL LEFT VENTRICULAR SYSTOLIC FUNCTION, EJECTION FRACTION 60-65% TECHNOLOGIST: NENA HOLDER
[2024-06-15] MEDS: HYDROMORPHONE HCL 0.5 MG/0.5 ML INJ IV ONE (07:25)
--- NOTE | 2024-06-15 07:37 | P.PN ---
Date of Service: 06/15/24 subjective Complaint of shortness of breath, abdominal pain, CT of the chest shows moderate to large pleural effusion pending thoracentesis Review of Systems 10-point ROS is otherwise unremarkable Review of Systems -10 point review of system negative unless listed in HPI Vital Signs reviewed - Physical Examination General: Alert, In no apparent distress, Oriented x3 HEENT: Atraumatic, PERRLA, Mucous membr. moist/pink, EOMI, Sclerae nonicteric Neck: Supple, 2+ carotid pulse no bruit, No LAD, Without JVD or thyroid abnormality Respiratory: , diminished,, Normal air movement, diminished on 02 2L NC Cardiovascular: Regular rate/rhythm, Normal S1 S2 Gastrointestinal: Normal bowel sounds, No tenderness, Other (Abdominal wall hernias) Musculoskeletal: No tenderness, congenital paraplegia, bedbound Integumentary: Skin lesion, stage II pressure ulcer Neurological: Sensation intact, Cranial nerves 3-12 intact, Abnormal gait, Abnormal strength, Abnormal tone Female Exam - Female Pelvic Uterus: Other (Prolapsed uterus) Assessment & Plan - Problems (Diagnosis) (1) Urinary tract infectious disease Onset Date: 06/26/14 Current Visit: No Status: Active Urine cultures positive for E. coli, Pseudomonas, Enterococcus faecalis, Plan to discharge home, home health care, senior living, with IV antibiotics, Rocephin 1 g daily, Levaquin 500 daily stop 06/16, (2) Acute on chronic anemia Current Visit: No Status: Acute (3) Depression Current Visit: No Status: Chronic Qualifiers: Depression Type: unspecified Qualified Code(s): F32.9 - Major depressive disorder, single episode, unspecified (4) H/O ureterostomy Current Visit: No Status: Chronic (5) Hypertension Current Visit: No Status: Chronic Qualifiers: Hypertension type: essential hypertension Qualified Code(s): I10 - Essential (primary) hypertension (6) Ileostomy in place Current Visit: No Status: Chronic (7) Spina bifida Onset Date: 09/30/17 Current Visit: No Status: Chronic Qualifiers: Presence of hydrocephalus: unspecified hydrocephalus presence (8) GERD (gastroesophageal reflux disease) Current Visit: No Status: Suspected Qualifiers: Esophagitis presence: esophagitis presence not specified Qualified Code(s): K21.9 - Gastro-esophageal reflux disease without esophagitis (09) spina bifida, congenital paraplegic -chronic Fall precaution, (10) bedbound -chronic Encouraged to turn every 2 hours, to avoid skin breakdown (11) stage II sacral ulcer-acute on chronic Patient educated to shift weight to avoid pressure every 2 hours (12) acute hypoxic respiratory failure secondary to large left pleural effusion, mild chf CXR mild CHF, treated with lasix, CT of the chest chest mildly progressive up to large left pleural effusion. Stable cardiomegaly. Home O2 ordered, 06/14 99% on 2 L status post thoracentesis, 600 ml removed from radiology (13) intractable abdominal pain, Treated with as needed analgesia - Plan Plan: 1. Continue with gentle hydration 2. Continue with IV antibiotics for multidrug-resistant UTI 3. Urine culture E. coli, Pseudomonas, Enterococcus faecalis, 4. Check labs 5. Wound care for stage II sacral decubitus ulcer 6. 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 Blood cultures no growth 24-hour 8. 4+ gram-negative rods, currently on meropenem 9. Stage II sacral ulcer present on arrival, turn every 2 hours to prevent skin breakdown 10. Follow-up with [facility] Ap for nephrostomy tube 11. 06/12 Blood culture flu, COVID, chest x-ray for chills 12. Room air sats to eval for home O2 13. repeat CT of chest Mildly progressive up to large left pleural effusion. Stable cardiomegaly. 14. pending US guided thoracentesis, Discharge Plan: Home Plan to discharge in: Greater than 2 days, patient uses [facility] home health - Advance Directives Does patient have a Living Will: Yes Does patient have a Durable POA for Healthcare: Yes - Code Status/Comfort Care Code Status Assessed: Yes Code Status: Full Code Critical Care: No ]Time with patient 35 min <Darlene Richardson - Last Filed: 06/19/24 16:02> Patient was seen and examined. Events of the last 24 hours have been noted. Spoke with with VALENTINO regarding patient's clinical picture after evaluating and examining the patient independently. I performed a substantial part of the MDM during this patient's care today. I personally made or approved the documented management plan and acknowledge its risk of complications. I agree with the findings and documentation provided in the VALENTINO's notes. <Lorraine Earl - Last Filed: 07/03/24 02:18>
[2024-06-15] MEDS: HYDROCODONE/APAP 7.5/325 MG TAB PO PRN (07:47)
[2024-06-15 09:36] LABS: Absolute Eosinophils 0.3 K/uL (0-0.5); Absolute Lymphocytes (CBC) 1.3 K/uL (0.7-4.9); Absolute Monocytes 0.9 K/uL (0.1-1.3); Absolute Neutrophil 6.4 K/uL (1.8-8.0); Basophils % 0.3 % (0-1.3); Eosinophils % 3.3 % (0-4.4); Hematocrit 40.7 % (36.0-45.0); Hemoglobin 12.8 g/dL (12.0-15.0); Lymphocytes % 14.5 % (15.3-44.8); MCH 27.5 pg (27.0-35.0); MCHC 31.3 g/dL (32.0-36.0); MCV 87.8 fL (80-100); MPV 7.2 fL (7.6-11.3); Neutrophils % 71.9 % (41.7-73.7); Nucleated Red Blood Cells % 0.1 % (0-0); RBC Red Blood Cell Count 4.64 M/uL (3.86-4.86); Red Cell Distribution Width 15.1 % (12.1-15.2)
[2024-06-15 10:46] LABS: Platelets 409 thou/uL (152-406)
[2024-06-15 11:10] LABS: Band Neutrophils 1 % (0-1); Differential Total Cells Count 100; Lymphocytes 18 % (15-42); Segmented Neutrophils 72 % (40-80)
[2024-06-15 11:11] LABS: Blood Morphology Comment NOT SEEN (NOT SEEN); Eosinophils 3 % (0-3); Monocytes 6 % (0-10); Platelet Estimate ADEQ; Platelets Clumped MANY
[2024-06-15] MEDS: HYDROMORPHONE HCL 0.5 MG/0.5 ML INJ IV PRN (21:12)
[2024-06-16 06:50] LABS: PT Prothrombin Time 14.9 SECONDS (9.4-12.5); PTT, Activated Partial Thromb 36.9 SECONDS (24.3-36.9); Protime INR 1.34
--- NOTE | 2024-06-16 10:28 | RAD REPORT ---
EXAMINATION: ONE VIEW CHEST XR CLINICAL INDICATION: POST THORA TECHNIQUE: Frontal chest projection is submitted. Examination is limited by patient positioning and t echnique. COMPARISON: 06/14/2024 FINDINGS: Left-sided pleural effusion has diminished in size moderately. No postprocedure pneumothorax seen. Th e heart is moderately enlarged in size. Left-sided shunt tubing noted in the left pleural space. IMPRESSION: No postprocedural pneumothorax on the left.
--- NOTE | 2024-06-16 10:32 | RAD REPORT ---
PROCEDURE: ULTRASOUND GUIDED THORACENTESIS CLINICAL INDICATION: Pleural effusion/VentriculoPleural shunt PROCEDURE DETAILS: Consent: Informed consent for the procedure including risks, benefits and alternatives was obtained a nd time-out was performed prior to the procedure. Preparation: The site was prepared and draped using maximal sterile barrier technique including cutan eous antisepsis. Procedure: Initial limited thoracic ultrasound was performed and a moderate pleural effusion was seen . A safe window for thoracentesis was identified with ultrasound to yessenia a suitable access site. Local anesthesia was administered. The pleural cavity was accessed, and fluid return confirmed positi on. A 8F pigtail drainage catheter was placed and fluid was drained. The catheter was removed, and a sterile bandage was applied. . Estimated blood loss: Less than 10 mL. IMPRESSION: LEFT-SIDED ultrasound guided thoracentesis, yielding 600 mL of clear fluid. Additional procedure(s): Limited thoracic ultrasound. PLAN: Aspirated fluid was sent for analysis.
[2024-06-16 12:16] LABS: Appearance CLEAR (CLEAR); Body Fluid Source PLEURAL; Color of Supernate Xanthochromic (Not Xantho); Color of fluid Yellow (COLORLESS); Tube # SINGLE
[2024-06-16 12:17] LABS: Body Fluid Lymphocytes 11 %; Body Fluid WBC 58 /mm^3; Fluid Total Cells Count 100
[2024-06-16 12:33] VITALS: BP 98/72; TEMP 98.2
[2024-06-16 14:00] VITALS: O2SAT 99
[2024-06-21 14:50] LABS: LD, PLEURAL FLUID 26 U/L; TOTAL PROTEIN, PLEURAL FLUID <3.0 g/dL
[2024-06-22 09:26] LABS: ALBUMIN, PLEURAL FLUID 0.8 g/dL
== END 2024-06-16 14:18 | disposition home health service (06) | DRG 698 ==
LOC: ER 12:45 → ERHOLD 16:59 → 2ND 17:26
PROVIDERS: ADMIT Hospitalist; ATTEND Hospitalist
PROC: 02HV33Z Insertion of Infusion Device into Superior Vena Cava, Percutaneous Approach (ICD-10-PCS; principal; 2024-06-09)
PROC: 0W9B3ZX Drainage of Left Pleural Cavity, Percutaneous Approach, Diagnostic (ICD-10-PCS; 2024-06-16)
DX: T83.512A Infection and inflammatory reaction due to nephrostomy catheter, initial encounter (principal); J96.01 Acute respiratory failure with hypoxia; N30.00 Acute cystitis without hematuria; Z16.24 Resistance to multiple antibiotics; Z16.12 Extended spectrum beta lactamase (ESBL) resistance; I11.0 Hypertensive heart disease with heart failure; I50.9 Heart failure, unspecified; E87.6 Hypokalemia; Q05.9 Spina bifida, unspecified; D64.9 Anemia, unspecified; G80.8 Other cerebral palsy; F32.9 Major depressive disorder, single episode, unspecified; L89.152 Pressure ulcer of sacral region, stage 2; N81.4 Uterovaginal prolapse, unspecified; K21.9 Gastro-esophageal reflux disease without esophagitis; Z93.3 Colostomy status; Z90.5 Acquired absence of kidney; Z88.5 Allergy status to narcotic agent; Z88.1 Allergy status to other antibiotic agents; Z74.01 Bed confinement status; Z79.82 Long term (current) use of aspirin; Z91.040 Latex allergy status; Z79.899 Other long term (current) drug therapy; Z86.718 Personal history of other venous thrombosis and embolism; B96.20 Unspecified Escherichia coli [E. coli] as the cause of diseases classified elsewhere; B96.5 Pseudomonas (aeruginosa) (mallei) (pseudomallei) as the cause of diseases classified elsewhere; B95.2 Enterococcus as the cause of diseases classified elsewhere; Y84.8 Other medical procedures as the cause of abnormal reaction of the patient, or of later complication, without mention of misadventure at the time of the procedure
CPT/HCPCS: 32555; 36415; 71045; 74177; 80053; 80069; 81001; 82042; 82150; 82945; 83605; 83615; 83735; 83880; 84157; 84484; 85025; 85610; 85730; 87040; 87070; 87077; 87086; 87088; 87186; 87811; 89050; 93005; 93306; 94010; 94640; 96365; 96367; 96375; 99285; J0360; J0696; J1171; J1650; J1940; J2185; J2270; J2405; J2550; J2765; J3480; J7030; J7040; J7613; J7614; Q9967

== ENCOUNTER 2024-08-14 18:37 | Emergency (ER) | payer OTHER ==
[2024-08-14 19:25] LABS: Absolute Eosinophils 0.3 K/uL (0-0.5); Absolute Lymphocytes (CBC) 1.2 K/uL (0.7-4.9); Absolute Monocytes 0.6 K/uL (0.1-1.3); Absolute Neutrophil 6.5 K/uL (1.8-8.0); Basophils % 0.2 % (0-1.3); Eosinophils % 3.1 % (0-4.4); MCH 27.4 pg (27.0-35.0); MCHC 32.5 g/dL (32.0-36.0); MCV 84.5 fL (80-100); MPV 7.9 fL (7.6-11.3); Monocytes % 7.2 % (3.3-12.3); Neutrophils % 75.5 % (41.7-73.7); Nucleated Red Blood Cells % 0.1 % (0-0); RBC Red Blood Cell Count 4.74 M/uL (3.86-4.86); Red Cell Distribution Width 15.1 % (12.1-15.2)
[2024-08-14 19:33] LABS: PT Prothrombin Time 13.2 SECONDS (9.4-12.5); PTT, Activated Partial Thromb 31.8 SECONDS (24.3-36.9); Protime INR 1.18
[2024-08-14 19:42] LABS: Albumin 3.5 g/dL (3.4-5.0); Albumin/Globulin Ratio 0.6 (1.1-1.8); Alkaline Phosphatase 55 U/L (45-117); Anion Gap 8.5 mEq/L (5.0-15.0); BUN Blood Urea Nitrogen 28 mg/dL (7-18); Bicarbonate 28 mEq/L (21-32); Bilirubin Total 0.3 mg/dL (0.2-1.0); Globulin 5.5 g/dL (2.3-3.5); Glomerular Filtration Rate 64 ml/min (=/>90); Glucose Level 128 mg/dL (74-106); Sodium Level 135 mEq/L (136-145)
[2024-08-14 19:43] LABS: ALT/SGPT < 14 U/L (13-56); AST/SGOT < 10 U/L (15-37)
[2024-08-14 19:44] LABS: Potassium 2.5 mEq/L (3.5-5.1)
[2024-08-14] MEDS ORDERED: KETOROLAC 30 MG/ML INJ ONE (19:46)
[2024-08-14 20:13] LABS: Platelets 355 thou/uL (152-406)
[2024-08-14 20:14] LABS: Blood Morphology Comment NOT SEEN (NOT SEEN); Platelet Estimate ADEQ; White Blood Cell Scan OK (OK)
[2024-08-14 20:15] LABS: SARS-CoV-2 Antigen CONTROL BLUE LINE VIS/BG OK; SARS-CoV-2 Antigen Rapid Res Negative (Negative)
[2024-08-14] MEDS ORDERED: KCL 20 MEQ/100 mL IVPB 100 ML IV ONE (20:32)
[2024-08-14] MEDS ORDERED: POTASSIUM 25 MEQ EFFERV TAB ONE (20:32)
[2024-08-14 20:55] LABS: Specific Gravity 1.017 (1.005-1.030); Sqamous Epithelial <5 /HPF (None Seen); Urine Bacteria None Seen /HPF (<20); Urine Bilirubin NEGATIVE (Negative); Urine Blood 2+ (Negative); Urine Clarity Extremely Turbid (Clear); Urine Color Yellow (Yellow); Urine Crystals Unidentified Few /HPF (None Seen); Urine Culture Reflex Order REFLEXED; Urine Glucose NEGATIVE (Negative); Urine Ketones TRACE (Negative); Urine Microscopic Reflex YN ORDER UMIC; Urine Mucus Slight /HPF (None Seen); Urine Nitrite 2+ (Negative); Urine Protein 1+ (Negative); Urine RBC >50 /HPF (None Seen); Urine Urobilinogen Normal (Normal); Urine WBC >50 /HPF (<5); Urine WBC Clump Occasional /HPF (None Seen); Urine Yeast (Budding) Occasional /HPF (None Seen)
[2024-08-14] MEDS ORDERED: NA CHLORIDE 0.9% 100 ML ONE (22:22)
[2024-08-14] MEDS ORDERED: Meropenem 1000 MG/VIAL IV ONE (22:22)
--- NOTE | 2024-08-14 22:25 | RAD REPORT ---
EXAMINATION: CT Abdomen Pelvis W Contrast CLINICAL INDICATION: Female, 43 years old. ABD PAIN TECHNIQUE: CT abdomen and pelvis was performed, after the administration of IV contrast, as per depar tment protocol. Axial, sagittal and coronal reconstructions were obtained. One or more of the following dose reduction techniques were used: Automated exposure control, adjustment of the mA and k V according to patient size, and iterative reconstruction. Unless otherwise specified, incidental findings do not require dedicated imaging follow-up. COMPARISON: 06/13/2024 FINDINGS: LOWER CHEST: Moderate to large layering left pleural effusion. Left pleural drainage catheter termina nelson at the base anteriorly. Streaky bilateral basilar opacities, may reflect atelectasis. Elevation of the right hemidiaphragm. LIVER: Normal in size and contour. No focal lesion. BILIARY SYSTEM: No suspicious abnormalities. SPLEEN: Normal size. No focal lesion. PANCREAS: No mass, ductal dilation, or raciel-pancreatic fluid. ADRENALS: Normal; no mass. KIDNEYS: Normal size and contour. No right hydronephrosis, with numerous nonobstructing right renal c alculi again seen, largest measuring 7 mm. Left percutaneous nephrostomy tube in place, with a kink/loop just exterior to the left posterolateral abdominal wall, this was not present on the prior exam. Moderate left hydronephrosis. Continuation of the catheter along the left ureter again present, terminating within the ileal conduit. URINARY BLADDER: Status post cystectomy. GASTROINTESTINAL TRACT: No evidence of free air, significant intra-abdominal free fluid, bowel obstru ction or abscess. Liberal bowel resection again noted APPENDIX: Normal appendix. LYMPH NODES: No lymphadenopathy. MUSCULOSKELETAL: Extensive scoliotic deformity with spina bifida and sacral dysgenesis again seen. Gi rdlestone deformity of the right femoral head/neck again seen. Pelvis No acute or suspicious osseous abnormality. ADDITIONAL FINDINGS: Multiple uterine fibroids again seen. IUD in place.. IMPRESSION: Left percutaneous nephrostomy tube in place, with a new clinic/loop just exterior to the left postero lateral abdominal wall. Left moderate hydronephrosis, progressive since the prior exam. Persistent moderate to large layering left pleural effusion. Satisfactory positioning of the left ple ural drainage catheter. Other stable findings as above.
--- NOTE | 2024-08-14 22:38 | EDPHYS ---
[facility] Name: Leila Aquino Age: 43 yrs Sex: Female : 1980 Arrival Date: 08/14/2024 Time: 18:37 Bed 24 Private MD: ED Physician Burton Rodrigez HPI: 08/14 19:06 This 43 yrs old Black Female presents to ER via EMS with unknown complaint. sb4 19:06 patient with complex history, spina bifida with indwelling mancilla catheter, left sb4 nephrostomy, colostomy presents with 2 days of nausea, vomiting, and body aches. has history of sepsis secondary to UTIs. had nephrostomy placed 6 months ago at [facility] for hydronephrosis secondary to ureteral stone, has not followed up. denies any fever, chills, or diarrhea. Historical: - Allergies: 18:50 chloradate; jb4 18:50 Latex; jb4 18:50 Morphine; jb4 18:50 Vancomycin; jb4 - PMHx: 18:50 ADD/ADHD; Kidney stones; Sepsis; Osteomyelitis-L foot; Upper extremity DVT- L arm; jb4 Hypertension; spina bifida; Asthma; Anemia; DVT; UTI; - PSHx: 18:50 urostomy; Colostomy; nephrostomy; jb4 ROS: 19:08 Respiratory: Negative for shortness of breath, cough, wheezing, and pleuritic chest sb4 pain, 19:08 Constitutional: Positive for body aches, 19:08 Abdomen/GI: Positive for nausea and vomiting, 19:08 All other systems are negative, Exam: 19:08 Head/Face: Normocephalic, atraumatic. Eyes: Extra-ocular motions intact. Periorbital sb4 areas with no swelling, redness, or edema. ENT: Mucous membranes moist. Respiratory: No increased work of breathing, no retractions or nasal flaring. 19:08 Constitutional: The patient appears in no acute distress, alert, awake, 19:08 Cardiovascular: Rate: tachycardic, Rhythm: regular, 19:08 : urine is cloudy, urostomy. nephrostomy - no output, Vital Signs: 18:50 BP 138 / 95; Pulse 104; Resp 16; Temp 98.6(O); Pulse Ox 96% on 2 lpm NC; Weight 78.93 jb4 kg (R); Height 5 ft. 0 in. ; 20:47 BP 120 / 86; Pulse 105; Resp 19; Pulse Ox 100% on 2 lpm NC; jb4 22:00 BP 144 / 105; Pulse 103; Resp 18; Pulse Ox 100% on 2 lpm NC; jb4 23:00 BP 115 / 84; Pulse 112; Resp 20; Pulse Ox 100% on 2 lpm NC; jb4 08/15 00:15 BP 118 / 90; Pulse 102; Resp 20; Pulse Ox 98% on 2 lpm NC; jb4 08/14 18:50 Body Mass Index 33.98 (78.93 kg, 152.4 cm) jb4 MDM: 08/14 18:45 Medical Screening Exam initiated sb4 22:38 Data reviewed: vital signs, nurses notes, EMS record, lab test result(s), radiologic sb4 studies, I have discussed the patient's presentation/case with the attending Emergency Department Physician;. Counseling: I had a detailed discussion with the patient and/or guardian regarding the historical points, exam findings, and any diagnostic results supporting the discharge/admit diagnosis, lab results, radiology results, the need to transfer to another facility, for higher level of care, [facility] does not immediately have the required specialist. 08/14 18:54 Order name: Blood Culture Adult (2) sb4 08/14 18:54 Order name: CBC with Diff; Complete Time: 20:16 sb4 08/14 18:54 Order name: CMP; Complete Time: 19:48 sb4 08/14 18:54 Order name: Lactate w/ 2H reflex if indic.; Complete Time: 19:48 sb4 08/14 18:54 Order name: Protime (+inr); Complete Time: 19:33 sb4 08/14 18:54 Order name: Ptt, Activated; Complete Time: 19:33 sb4 08/14 18:54 Order name: Urinalysis w/ reflexes; Complete Time: 20:56 sb4 08/14 19:04 Order name: SARS RAPID; Complete Time: 20:16 sb4 08/14 19:04 Order name: Flu; Complete Time: 20:17 sb4 08/14 19:35 Order name: CBC Smear Scan; Complete Time: 20:16 EDMS 08/14 20:58 Order name: Urine Culture EDCO 08/14 19:05 Order name: CT Abd/Pelvis - IV Contrast Only; Complete Time: 22:26 sb4 08/14 18:54 Order name: Cardiac monitoring; Complete Time: 20:28 sb4 08/14 18:54 Order name: IV Saline Lock - Large Bore; Complete Time: 19:50 sb4 08/14 18:54 Order name: Labs collected and sent; Complete Time: 19:50 sb4 Administered Medications: 19:50 Drug: Ketorolac IVP 15 mg IVP once Route: IVP; Site: left upper arm; jb4 20:47 Follow up: Response: No adverse reaction; Marked relief of symptoms jb4 20:46 Drug: Potassium PO Effervescent Tablet 50 mEq PO once; dissolve in 4 ounces of water or jb4 juice Route: PO; 22:47 Follow up: Response: No adverse reaction jb4 20:46 Drug: Potassium Chloride IV 20 mEq IV at calculated rate once; administer over 1-2 jb4 hours Route: IV; Rate: calculated rate; Site: left upper arm; 22:29 Drug: Meropenem IV 1 grams IV at calculated rate once; (mix in NS 100 mL) Route: IV; jb4 Rate: calculated rate; Site: left upper arm; 22:59 Follow up: Response: No adverse reaction; IV Status: Completed infusion; IV Intake: jb4 100ml 23:04 Drug: HYDROmorphone IVP 0.5 mg IVP once Route: IVP; Site: left upper arm; jb4 Disposition Summary: 08/14/24 22:37 Transfer Ordered Notes: [facility] Reason: Higher level of care sb4 Condition: Fair sb4 Problem: new sb4 Symptoms: are unchanged sb4 Accepting Physician: dr garnett(08/15/24 01:00) jb4 Diagnosis - UTI/ Urinary tract infection, site not specified sb4 - Other mechanical complication of nephrostomy catheter, initial encounter sb4 - Hypokalemia sb4 Forms: - Medication Reconciliation Form sb4 - SBAR form sb4 Signatures: Dispatcher [employer] EDMaximo Russell RN RN jb4 Yane Ceja PA-C PA-C sb4 Corrections: (The following items were deleted from the chart) 18:59 18:50 PMHx: osteomyolitis L foot; jb4 jb4 19:05 19:05 Test, Urine+[id number].LAB.BRZ ordered. EDMS EDMS 08/15 00:53 08/14 19:08 : latonya mancilla is noted, urine is cloudy, sb4 sb4 08/15 01:00 08/14 22:37 dr garnett sb4 jb4
--- NOTE | 2024-08-14 22:38 | ER ---
Nurse's Notes [facility] Name: Leila Aquino Age: 43 yrs Sex: Female : 1980 Arrival Date: 08/14/2024 Time: 18:37 Bed 24 Private MD: Diagnosis: UTI/ Urinary tract infection, site not specified;Other mechanical complication of nephrostomy catheter, initial encounter;Hypokalemia Presentation: 08/14 18:45 Chief complaint: EMS states: Pt reports N,V, Body aches for the past 3 days. Pt house jb4 cloudy foul smelling urine in her catheter. Was given 4 mg of Zofran and 600-700ml of NS via 20g to ARABELLA. Coronavirus screen: At this time, the client does not indicate any symptoms associated with coronavirus-19. Ebola Screen: No symptoms or risks identified at this time. Initial Sepsis Screen: Does the patient meet any 2 criteria? HR > 90 bpm. Does the patient have a suspected source of infection? No. Patient's initial sepsis screen is negative. Risk Assessment: Do you want to hurt yourself or someone else? Patient reports no desire to harm self or others. Onset of symptoms was August 11, 2024. Transition of care: patient was not received from another setting of care. 18:45 Method Of Arrival: EMS: [facility] jb4 18:45 Acuity: PAYTON 3 jb4 Triage Assessment: 18:50 General: Appears in no apparent distress. uncomfortable, Behavior is calm, cooperative, jb4 appropriate for age. Pain: Denies pain. Neuro: Level of Consciousness is awake, alert, obeys commands, Oriented to person, place, time, situation. Cardiovascular: Patient's skin is warm and dry. Respiratory: Airway is patent Respiratory effort is even, unlabored, Respiratory pattern is regular, symmetrical. Derm: Skin is dry, Skin is normal, Skin temperature is warm Decubitus located on sacrum. Historical: - Allergies: 18:50 chloradate; jb4 18:50 Latex; jb4 18:50 Morphine; jb4 18:50 Vancomycin; jb4 - PMHx: 18:50 ADD/ADHD; Kidney stones; Sepsis; Osteomyelitis-L foot; Upper extremity DVT- L arm; jb4 Hypertension; spina bifida; Asthma; Anemia; DVT; UTI; - PSHx: 18:50 urostomy; Colostomy; nephrostomy; jb4 Screenin/17 00:59 [facility] ED Fall Risk Assessment (Adult) History of falling in the last 3 months, jb4 including since admission No falls in past 3 months (0 pts) Confusion or Disorientation No (0 pts) Intoxicated or Sedated No (0 pts) Impaired Gait No (0 pts) Mobility Assist Device Used No (0 pt) Altered Elimination No (0 pt) Score/Fall Risk Level 0 - 2 = Low Risk Oriented to surroundings, Maintained a safe environment. Abuse screen: Denies threats or abuse. Nutritional screening: No deficits noted. Tuberculosis screening: No symptoms or risk factors identified. Assessment: 08/14 20:47 Reassessment: Patient appears in no apparent distress at this time. Patient and/or jb4 family updated on plan of care and expected duration. Pain level reassessed. Patient is alert, oriented x 3, equal unlabored respirations, skin warm/dry/pink. 22:00 Reassessment: Patient appears in no apparent distress at this time. Patient and/or jb4 family updated on plan of care and expected duration. Pain level reassessed. Patient is alert, oriented x 3, equal unlabored respirations, skin warm/dry/pink. 23:00 Reassessment: Patient appears in no apparent distress at this time. Patient and/or jb4 family updated on plan of care and expected duration. Pain level reassessed. Patient is alert, oriented x 3, equal unlabored respirations, skin warm/dry/pink. 08/15 00:00 Reassessment: Patient appears in no apparent distress at this time. Patient and/or jb4 family updated on plan of care and expected duration. Pain level reassessed. Patient is alert, oriented x 3, equal unlabored respirations, skin warm/dry/pink. Vital Signs: 08/14 18:50 BP 138 / 95; Pulse 104; Resp 16; Temp 98.6(O); Pulse Ox 96% on 2 lpm NC; Weight 78.93 jb4 kg (R); Height 5 ft. 0 in. ; 20:47 BP 120 / 86; Pulse 105; Resp 19; Pulse Ox 100% on 2 lpm NC; jb4 22:00 BP 144 / 105; Pulse 103; Resp 18; Pulse Ox 100% on 2 lpm NC; jb4 23:00 BP 115 / 84; Pulse 112; Resp 20; Pulse Ox 100% on 2 lpm NC; jb4 08/15 00:15 BP 118 / 90; Pulse 102; Resp 20; Pulse Ox 98% on 2 lpm NC; jb4 08/14 18:50 Body Mass Index 33.98 (78.93 kg, 152.4 cm) jb4 ED Course: 08/14 18:42 Patient arrived in ED. rv1 18:45 Yane Ceja PA-C is PHCP. sb4 18:45 Burton Rodrigez MD is Attending Physician. sb4 18:50 Triage completed. jb4 18:50 Arm band placed on right wrist. jb4 19:50 Flu Sent. jb4 19:50 SARS RAPID Sent. jb4 21:47 CT Abd/Pelvis - IV Contrast Only In Process Unspecified. EDMS 22:57 Initiated transfer with Obdulia at [facility]. rv1 23:[address] Baugh to [place] [id number] Report #[id number]. rv1 08/15 00:59 Patient has correct armband on for positive identification. Bed in low position. Call jb4 light in reach. Side rails up X 1. Provided Education on: need for transfer. 00:59 No provider procedures requiring assistance completed. Patient transferred, IV remains jb4 in place. Administered Medications: 08/14 19:50 Drug: Ketorolac IVP 15 mg IVP once Route: IVP; Site: left upper arm; jb4 20:47 Follow up: Response: No adverse reaction; Marked relief of symptoms jb4 20:46 Drug: Potassium PO Effervescent Tablet 50 mEq PO once; dissolve in 4 ounces of water or jb4 juice Route: PO; 22:47 Follow up: Response: No adverse reaction jb4 20:46 Drug: Potassium Chloride IV 20 mEq IV at calculated rate once; administer over 1-2 jb4 hours Route: IV; Rate: calculated rate; Site: left upper arm; 22:29 Drug: Meropenem IV 1 grams IV at calculated rate once; (mix in NS 100 mL) Route: IV; jb4 Rate: calculated rate; Site: left upper arm; 22:59 Follow up: Response: No adverse reaction; IV Status: Completed infusion; IV Intake: jb4 100ml 23:04 Drug: HYDROmorphone IVP 0.5 mg IVP once Route: IVP; Site: left upper arm; jb4 Intake: 22:59 IV: 100ml; Total: 100ml. jb4 Outcome: 22:37 ER care complete, transfer ordered by MD. weiner 08/15 00:59 Transferred by ground EMS to [facility], Transfer form jb4 completed. X-rays sent w/ patient. Condition: stable Discharge instructions given to patient, Instructed on the need for transfer, Demonstrated understanding of instructions, 01:00 Patient left the ED. jb4 Signatures: Dispatcher [employer] EDMaximo Russell, RN RN [email or web address] Yane Ceja PA-C PA-C sb4 Villegas, Rebecca rv1 Corrections: (The following items were deleted from the chart) 08/14 18:59 18:50 PMHx: osteomyolitis L foot; jb4 jb4 20:48 18:50 Cardiovascular: Patient's skin is warm and dry. jb4 jb4 20:48 18:50 Derm: Skin is intact, Skin is dry, Skin is normal, Skin temperature is warm jb4 jb4 20:48 18:50 BP 138 / 95; Pulse 104bpm; Resp 16bpm; Pulse Ox 96%; Temp 98.6F Oral; 78.93 kg jb4 Reported; Height 5 ft. 0 in.; BMI: 33.9; jb4
[2024-08-14] MEDS ORDERED: HYDROMORPHONE HCL 0.5 MG/0.5 ML INJ ONE (22:59)
[2024-08-15 01:16] VITALS: TEMP 98.6
[2024-08-15 01:21] VITALS: BP 118/90; O2SAT 98
== END 2024-08-15 01:00 | disposition short-term general hospital (02) ==
LOC: ER 18:37
DX: N39.0 Urinary tract infection, site not specified (principal); T83.092A Other mechanical complication of nephrostomy catheter, initial encounter; E87.6 Hypokalemia; Z11.52 Encounter for screening for COVID-19
CPT/HCPCS: 96365; 87040 ×2; 87088; 85025; 81001; 87086; 36415; 87205; 85610; 83605; 85730; 80053; 87804 ×2; 74177; 96375; 99285; 87811; Q9967; J3480; J2185; J1171; 87077; 87186

== ENCOUNTER 2024-10-16 21:21 | Emergency (ER) | payer OTHER ==
--- NOTE | 2024-10-16 22:12 | RAD REPORT ---
EXAM: CT brain without contrast HISTORY: Confusion COMPARISON: 2023 TECHNIQUE: Multiple contiguous axial images were obtained and a CT of the brain without contrast.. Sagittal and coronal reconstruction performed. Automated exposure control, adjustment of the mA and/or kV according to patient size, and/or iterative reconstruction. Unless otherwise specified, incidental f indings do not require dedicated imaging follow-up FINDINGS: An intracranial bleed is not seen Ventriculostomy tubes are unchanged in position. Agenesis corpus callosum. No significant hydrocephalus. No extra-axial fluid collection noted No significant hypodensity within the brain No fluid within the visualized sinuses or mastoids noted. IMPRESSION: No acute intracranial abnormality noted.
--- NOTE | 2024-10-16 22:26 | RAD REPORT ---
EXAM: CT CHEST, ABDOMEN AND PELVIS WITHOUT CONTRAST CLINICAL INDICATION: Chest and abdominal pain. Vomiting TECHNIQUE: CT chest, abdomen and pelvis was performed, without IV contrast, as per department protoco l. Axial, sagittal and coronal reconstructions were obtained. One or more of the following dose reduction techniques were used: Automated exposure control, adjustment of the mA and/or kV according to the patient size, and/or iterative reconstruction. Unless otherwise specified, incidental findings do not require dedicated imaging follow-up. The lack of IV and oral contrast limits evaluation of the mediastinum, ariel, vessels, organs and tavon l. COMPARISON: 2023 FINDINGS: A ventricular pleural shunt has its tip in the anterior lower left pleural space. Moderate to large l eft pleural effusion is present. Mild bilateral pulmonary opacities are present. Liver, spleen, pancreas, and adrenals grossly normal. A left percutaneous nephrostomy is present. Moderate left hydronephrosis unchanged. A ureteral stent has its tip just adjacent to the abdominal wall entering an ileal conduit.. Cystectomy Right renal calculi. No hydronephrosis. Cortical thinning. There is no evidence of diverticulitis. Spina bifida. IUD within the uterus. Left lower quadrant colo stomy with parastomal hernia. No obstruction. IMPRESSION: Moderate to large left pleural effusion unchanged. Moderate left hydronephrosis unchanged. Mild bilateral pulmonary opacities may represent pulmonary edema or pneumonitis.
[2024-10-16 23:13] LABS: Absolute Eosinophils 0.3 K/uL (0-0.5); Absolute Lymphocytes (CBC) 1.6 K/uL (0.7-4.9); Absolute Monocytes 0.7 K/uL (0.1-1.3); Absolute Neutrophil 4.8 K/uL (1.8-8.0); Basophils % 0.5 % (0-1.3); Eosinophils % 4.3 % (0-4.4); Hemoglobin 11.5 g/dL (12.0-15.0); Lymphocytes % 21.8 % (15.3-44.8); MCV 84.2 fL (80-100); MPV 8.3 fL (7.6-11.3); Monocytes % 8.8 % (3.3-12.3); Neutrophils % 64.6 % (41.7-73.7); Nucleated Red Blood Cells % 0.1 % (0-0); Platelets 276 thou/uL (152-406); RBC Red Blood Cell Count 4.28 M/uL (3.86-4.86); Red Cell Distribution Width 14.2 % (12.1-15.2)
[2024-10-17 00:11] LABS: Blood Morphology Comment NOT SEEN (NOT SEEN); Platelet Estimate ADEQ; Platelets Clumped NOTED; White Blood Cell Scan OK (OK)
[2024-10-17] MEDS ORDERED: ONDANSETRON 4 MG/2 ML VIAL ONE (00:48)
[2024-10-17] MEDS ORDERED: HYDROMORPHONE HCL 1 MG/ML INJ ONE ×2 (00:48→03:54)
[2024-10-17] MEDS ORDERED: VANCOMYCIN 1 GM/VIAL ONE (00:48)
[2024-10-17] MEDS ORDERED: CEFEPIME 2 GM VIAL ONE (00:48)
[2024-10-17] MEDS ORDERED: NA CHLORIDE 0.9% 250 ML ONE (00:49)
[2024-10-17] MEDS ORDERED: NA CHLORIDE 0.9% 100 ML ONE (00:49)
[2024-10-17] MEDS ORDERED: NA CHLORIDE 0.9% 1,000 ML ONE (00:49)
[2024-10-17 01:06] LABS: PT Prothrombin Time 12.9 SECONDS (9.4-12.5); PTT, Activated Partial Thromb 35.9 SECONDS (24.3-36.9); Protime INR 1.23
[2024-10-17 01:15] LABS: ALT/SGPT 16 U/L (13-56); Albumin/Globulin Ratio 0.5 (1.1-1.8); Alkaline Phosphatase 55 U/L (45-117); Anion Gap 8.8 mEq/L (5.0-15.0); BUN Blood Urea Nitrogen 15 mg/dL (7-18); Bicarbonate 31 mEq/L (21-32); Bilirubin Total 0.3 mg/dL (0.2-1.0); Globulin 5.6 g/dL (2.3-3.5); Glomerular Filtration Rate 103 ml/min (=/>90); Glucose Level 95 mg/dL (74-106); Lipase 34 U/L (13-75); NT PRO-BNP 10 pg/mL (<125); Potassium 3.8 mEq/L (3.5-5.1); Protein, Total 8.6 g/dL (6.4-8.2); Sodium Level 139 mEq/L (136-145); Troponin High Sensitivity 3.1 pg/mL (<58.9)
[2024-10-17 01:28] LABS: AST/SGOT < 10 U/L (15-37)
[2024-10-17 04:24] LABS: Calcium Oxalate Crystals- Ur Few /HPF (None Seen); Specific Gravity 1.016 (1.005-1.030); Sqamous Epithelial <5 /HPF (None Seen); Urine Bacteria Loaded /HPF (<20); Urine Bilirubin NEGATIVE (Negative); Urine Blood Negative (Negative); Urine Clarity Extremely Turbid (Clear); Urine Color Light-Orange (Yellow); Urine Culture Reflex Order REFLEXED; Urine Glucose NEGATIVE (Negative); Urine Ketones NEGATIVE (Negative); Urine Microscopic Reflex YN NO UMIC; Urine Mucus Slight /HPF (None Seen); Urine Nitrite NEGATIVE (Negative); Urine Protein 2+ (Negative); Urine RBC None Seen /HPF (None Seen); Urine Urobilinogen Normal (Normal); Urine WBC 20-50 /HPF (<5)
[2024-10-17] MEDS ORDERED: METRONIDAZOLE 500mg IVPB 500 MG/100 ML BAG IV ONE (04:47)
--- NOTE | 2024-10-17 05:09 | EDPHYS ---
Physician Documentation [facility] Name: Leial Aquino Age: 44 yrs Sex: Female : 1980 Arrival Date: 10/16/2024 Time: 21:21 Bed 5 Private MD: ED Physician Narayan Armstrong HPI: 10/16 21:27 This 44 yrs old Black Female presents to ER via Unassigned with complaints of vomiting sp4 , abd pain . 10/17 04:55 44-year-old female with extensive past medical history presents with EMS for persistent sp4 vomiting. Patient has extensive past medical history of spina bifida, nephrolithiasis, recurrent UTI, colostomy, nephrostomy, left percutaneous nephrostomy, urostomy, multiple abdominal surgeries. Further history includes ventriculoperitoneal shunt, chronic left-sided pleural effusion, hypertension, depression anxiety, recurrent multidrug-resistant UTI, history DVT, history of vaginal prolapse, colostomy, urostomy, vaginal reconstruction, ileostomy, skin graft, IVC filter, and replacement of [employer] shunt. Patient's medications at home include zolpidem 1 tab daily, diphenhydramine twice daily, sertraline twice daily, amlodipine busily daily, metoprolol succinate 25 mg p.o. daily, chewable aspirin 81 mg p.o. daily, promethazine 12.5 mg p.o. every 6 hours, Senokot 8.6 mg daily, hydrochlorothiazide 25 mg p.o. daily. Last admission 06/06/2024.. . MYSQL DATABASE ADMINISTRATOR: 10/16 21:55 unknown bm8 Historical: - Allergies: 21:54 chloradate; bm8 21:54 Latex; bm8 21:54 Morphine; bm8 21:54 Vancomycin; bm8 - PMHx: 21:54 ADD/ADHD; Anemia; DVT; Asthma; Hypertension; Kidney stones; Osteomyelitis-L foot; bm8 Sepsis; spina bifida; Upper extremity DVT- L arm; UTI; - PSHx: 21:54 Colostomy; nephrostomy; urostomy; bm8 - Immunization history:: Adult Immunizations up to date. - Infectious Disease History:: Denies. - Social history:: Smoking status: . - Family history:: not pertinent. ROS: 10/17 04:55 Constitutional: Negative for fever, chills, and weight loss, sp4 Constitutional: Negative for fever, chills, and weight loss, positive for persistent vomiting, All other systems are negative, Exam: 04:55 Constitutional: Patient is chronically deformed female, chronically immobilized, sp4 moderate to severe scoliosis, signs of meningomyelocele, chronic bilateral lower extremity atrophy, left percutaneous nephrostomy, left lower quadrant abdominal colostomy, right lower quadrant abdominal urostomy. Patient has bilateral buttock and sacral decubitus ulcers . Patient suffering from poor hygiene. Moderate to severe physical deconditioning Head/Face: Normocephalic, atraumatic. Eyes: Pupils equal round and reactive to light, extra-ocular motions intact. Lids and lashes normal. Conjunctiva and sclera are not injected. Cornea within normal limits. Periorbital areas with no swelling, redness, or edema. ENT: Nares patent. No nasal discharge, no septal abnormalities noted. Tympanic membranes are normal and external auditory canals are clear. Oropharynx with no redness, swelling, or masses, exudates, or evidence of obstruction, uvula midline. Mucous membranes moist. Neck: Trachea midline, no thyromegaly or masses palpated, and no cervical lymphadenopathy. Supple, full range of motion without nuchal rigidity, or vertebral point tenderness. Chest/axilla: Normal chest wall appearance and motion. Nontender with no deformity. No lesions are appreciated. Cardiovascular: Regular rate and rhythm with a normal S1 and S2. No gallops, murmurs, or rubs. Normal PMI, no JVD. No pulse deficits. Respiratory: Lungs have equal breath sounds bilaterally, clear to auscultation and percussion. No rales, rhonchi or wheezes noted. No increased work of breathing, no retractions or nasal flaring. Abdomen/GI: Soft, with normal bowel sounds. No distension or tympany. Large midline abdominal scar from multiple prior surgery, left lower quadrant colostomy, and the right lower quadrant urostomy. Left flank percutaneous nephrostomy does not appear to be draining. Back: No spinal tenderness. No costovertebral tenderness. Skin: Warm, dry with normal turgor. Normal color with no rashes, no lesions, and no evidence of cellulitis. MS/ Extremity: Pulses equal, no cyanosis. Patient has bilateral lower extremity chronic atrophy. Normal upper extremity exam. Neuro: Awake and alert, GCS 15, oriented to person, place, time, and situation. Cranial nerves II-XII grossly intact. Bilateral arm examination unremarkable. Chronic bilateral lower extremity atrophy. No new neurologic deficits reported by the patient. Psych: Awake, alert, with orientation to person, place and time. Behavior, mood, and affect are within normal limits 04:55 ECG was reviewed by the Attending Physician. EKG 2347 normal sinus rhythm rate 95, no ST elevation or depression, no ectopy, normal EKG overall Vital Signs: 10/16 21:52 BP 130 / 81; Pulse 110; Resp 22; Temp 99.5; Pulse Ox 95% ; Weight 78.93 kg; Height 4 bm8 ft. 11 in. ; Pain 7/10; 23:30 BP 110 / 83; Pulse 94; Resp 17; Pulse Ox 100% on R/A; dd2 10/17 00:25 BP 121 / 78; Pulse 92; Resp 16; Pulse Ox 100% on R/A; dd2 02:37 BP 106 / 64; Pulse 91; Resp 16; Pulse Ox 100% on R/A; dd2 03:30 BP 110 / 69; Pulse 88; Resp 16; Pulse Ox 100% on 2 lpm NC; dd2 04:30 BP 108 / 75; Pulse 81; Resp 16; Pulse Ox 100% on 2 lpm NC; dd2 05:30 BP 113 / 77; Pulse 87; Resp 16; Pulse Ox 100% on 2 lpm NC; dd2 06:00 BP 110 / 73; Pulse 85; Resp 16; Pulse Ox 100% on 2 lpm NC; dd2 10/16 21:52 Body Mass Index 35.14 (78.93 kg, 149.86 cm) bm8 10/16 21:52 Pain Scale: Adult bm8 Rule Coma Score: 10/16 23:15 Eye Response: spontaneous(4). Motor Response: obeys commands(6). Verbal Response: dd2 oriented(5). Total: 15. 10/17 04:55 Eye Response: spontaneous(4). Motor Response: obeys commands(6). Verbal Response: sp4 oriented(5). Total: 15. Procedures: 10/16 23:47 Performed Exchange of colostomy bag. Colostomy bag exchanged by the RN.. sp4 MDM: 21:30 Medical Screening Exam initiated sp4 23:46 ED course: EXAM: CT CHEST, ABDOMEN AND PELVIS WITHOUT CONTRAST CLINICAL INDICATION: sp4 Chest and abdominal pain. Vomiting TECHNIQUE: CT chest, abdomen and pelvis was performed, without IV contrast, as per department protocol. Axial, sagittal and coronal reconstructions were obtained. One or more of the following dose reduction techniques were used: Automated exposure control, adjustment of the mA and/or kV according to the patient size, and/or iterative reconstruction. Unless otherwise specified, incidental findings do not require dedicated imaging follow-up. The lack of IV and oral contrast limits evaluation of the mediastinum, ariel, vessels, organs and bowel. COMPARISON: 2023 FINDINGS: A ventricular pleural shunt has its tip in the anterior lower left pleural space. Moderate to large left pleural effusion is present. Mild bilateral pulmonary opacities are present. Liver, spleen, pancreas, and adrenals grossly normal. A left percutaneous nephrostomy is present. Moderate left hydronephrosis unchanged. A ureteral stent has its tip just adjacent to the abdominal wall entering an ileal conduit.. Cystectomy Right renal calculi. No hydronephrosis. Cortical thinning. There is no evidence of diverticulitis. Spina bifida. IUD within the uterus. Left lower quadrant colostomy with parastomal hernia. No obstruction. IMPRESSION: Moderate to large left pleural effusion unchanged. Moderate left hydronephrosis unchanged. Mild bilateral pulmonary opacities may represent pulmonary edema or pneumonitis.. ED course: EXAM: CT brain without contrast HISTORY: Confusion COMPARISON: 2023 TECHNIQUE: Multiple contiguous axial images were obtained and a CT of the brain without contrast.. Sagittal and coronal reconstruction performed. Automated exposure control, adjustment of the mA and/or kV according to patient size, and/or iterative reconstruction. Unless otherwise specified, incidental findings do not require dedicated imaging follow-up FINDINGS: An intracranial bleed is not seen Ventriculostomy tubes are unchanged in position. Agenesis corpus callosum. No significant hydrocephalus. No extra-axial fluid collection noted No significant hypodensity within the brain No fluid within the visualized sinuses or mastoids noted. IMPRESSION: No acute intracranial abnormality noted. . 23:47 Differential diagnosis: bowel obstruction, Endometriosis, gastritis, gastroesophageal sp4 reflux disease, GI Bleed, Hepatitis, Irritable bowel syndrome, non-specific abd pain, pancreatitis. Data reviewed: vital signs, nurses notes, EMS record, old medical records, lab test result(s), EKG, radiologic studies, CT scan. Consideration of Admission/Observation Escalation of care including admission/observation considered. ED course: Patient was discussed with [facility] Ap urology and also discussed with admitting medicine Dr. Rodas . 10/17 00:53 ED course: EXAM: CT CHEST, ABDOMEN AND PELVIS WITHOUT CONTRAST CLINICAL INDICATION: sp4 Chest and abdominal pain. Vomiting TECHNIQUE: CT chest, abdomen and pelvis was performed, without IV contrast, as per department protocol. Axial, sagittal and coronal reconstructions were obtained. One or more of the following dose reduction techniques were used: Automated exposure control, adjustment of the mA and/or kV according to the patient size, and/or iterative reconstruction. Unless otherwise specified, incidental findings do not require dedicated imaging follow-up. The lack of IV and oral contrast limits evaluation of the mediastinum, ariel, vessels, organs and bowel. COMPARISON: 2023 FINDINGS: A ventricular pleural shunt has its tip in the anterior lower left pleural space. Moderate to large left pleural effusion is present. Mild bilateral pulmonary opacities are present. Liver, spleen, pancreas, and adrenals grossly normal. A left percutaneous nephrostomy is present. Moderate left hydronephrosis unchanged. A ureteral stent has its tip just adjacent to the abdominal wall entering an ileal conduit.. Cystectomy Right renal calculi. No hydronephrosis. Cortical thinning. There is no evidence of diverticulitis. Spina bifida. IUD within the uterus. Left lower quadrant colostomy with parastomal hernia. No obstruction. IMPRESSION: Moderate to large left pleural effusion unchanged. Moderate left hydronephrosis unchanged. Mild bilateral pulmonary opacities may represent pulmonary edema or pneumonitis. . ED course: EXAM: CT brain without contrast HISTORY: Confusion COMPARISON: 2023 TECHNIQUE: Multiple contiguous axial images were obtained and a CT of the brain without contrast.. Sagittal and coronal reconstruction performed. Automated exposure control, adjustment of the mA and/or kV according to patient size, and/or iterative reconstruction. Unless otherwise specified, incidental findings do not require dedicated imaging follow-up FINDINGS: An intracranial bleed is not seen Ventriculostomy tubes are unchanged in position. Agenesis corpus callosum. No significant hydrocephalus. No extra-axial fluid collection noted No significant hypodensity within the brain No fluid within the visualized sinuses or mastoids noted. IMPRESSION: No acute intracranial abnormality noted. . 10/16 21:28 Order name: Blood Culture Adult (2) [facility] 10/16 21:28 Order name: CBC with Diff; Complete Time: 00:54 [facility] 10/16 21:28 Order name: CMP; Complete Time: 03:57 [facility] 10/16 21:28 Order name: Lactate w/ 2H reflex if indic.; Complete Time: 00:54 [facility] 10/16 21:28 Order name: Protime (+inr); Complete Time: 03:57 [facility] 10/16 21:28 Order name: Ptt, Activated; Complete Time: 03:57 [facility] 10/16 21:28 Order name: Urinalysis w/ reflexes; Complete Time: 04:32 [facility] 10/16 21:29 Order name: Troponin High Sensitivity; Complete Time: 03:57 [facility] 10/16 21:29 Order name: Lipase; Complete Time: 03:57 [facility] 10/16 21:29 Order name: BNP; Complete Time: 03:57 [facility] 10/16 23:23 Order name: CBC Smear Scan; Complete Time: 00:54 [facility] 10/16 23:27 Order name: Glucose, Ancillary Testing; Complete Time: 23:43 EDMS 10/17 04:27 Order name: Urine Culture [facility] 10/16 21:28 Order name: CT Chest Abdomen Pelvis W/O Contrast; Complete Time: 23:43 [facility] 10/16 21:29 Order name: CT Head Brain wo Cont; Complete Time: 23:43 [facility] 10/16 21:28 Order name: Accucheck; Complete Time: 23:15 [facility] 10/16 21:28 Order name: Cardiac monitoring; Complete Time: 23:50 [facility] 10/16 21:28 Order name: EKG - Nurse/Tech; Complete Time: 23:50 [facility] 10/16 21:28 Order name: IV Saline Lock - Large Bore; Complete Time: 01:14 [facility] 10/16 21:28 Order name: Labs collected and sent; Complete Time: 23:05 [facility] 10/16 21:28 Order name: O2 Per Protocol; Complete Time: 23:05 [facility] 10/16 21:28 Order name: O2 Sat Monitoring; Complete Time: 23:05 4 10/16 21:28 Order name: Vital Signs; Complete Time: 23:05 sp4 10/16 23:20 Order name: Misc. Order: RECOLLECT BLUE AND LIGHT GREEN; Complete Time: 00:36 rv1 EC/17 23:47 Rate is 95 beats/min. Rhythm is regular, Normal Sinus Rhythm. QRS [place] is Normal. [place] sp4 interval is normal. QRS interval is normal. QT interval is normal. No Q waves. T waves are Normal. No ST changes noted. Clinical impression: No evidence of ischemia. Interpreted by me. Reviewed by me. Administered Medications: 10/17 01:12 Drug: NS 0.9% IV 1000 ml IV at 1 bolus Per protocol; to be given as a bolus over 60 dd2 minutes Route: IV; Rate: 1 bolus; Site: right antecubital; Follow up: Response: No adverse reaction dd2 02:12 Follow up: IV Status: Completed infusion; IV Intake: 1000ml dd2 01:12 Drug: HYDROmorphone IVP 1 mg IVP once Route: IVP; Site: right antecubital; dd2 01:27 Follow up: Response: No adverse reaction dd2 01:12 Drug: Ondansetron IVP 4 mg IVP once; over 2 minutes Route: IVP; Site: right antecubital;dd2 01:27 Follow up: Response: No adverse reaction dd2 01:14 Drug: Cefepime IVPB 2 grams IVPB at 200 ml/hr once over 30 mins; (mix in NS 100 mL) dd2 Route: IVPB; Rate: 200 ml/hr; Infused Over: 30 mins; Site: right antecubital; :29 Follow up: Response: No adverse reaction dd2 01:54 Follow up: IV Status: Completed infusion; IV Intake: 100ml dd2 01:14 Drug: Ondansetron IVP 4 mg IVP once; over 2 minutes Route: IVP; Site: right antecubital;dd2 01:29 Follow up: Response: No adverse reaction dd2 02:15 Not Given (ALLERGYy): vancomycin1 grams IVPB once over 2 hrs dd2 04:16 Drug: HYDROmorphone IVP 1 mg IVP once Route: IVP; Site: right antecubital; dd2 04:31 Follow up: Response: No adverse reaction dd2 04:56 Drug: metroNIDAZOLE IVPB 500 mg 100 ml IVPB at 200 ml/hr once over 30 mins Volume: 100 dd2 ml; Route: IVPB; Rate: 200 ml/hr; Infused Over: 30 mins; Site: right antecubital; 05:30 Follow up: IV Status: Completed infusion; IV Intake: 100ml dd2 Disposition Summary: 10/17/24 05:09 Transfer Ordered Notes: Transfer Location: [facility]-System sp4 Reason: Higher level of care sp4 Condition: Stable sp4 Problem: new sp4 Symptoms: have improved sp4 Accepting Physician: [facility] Attending Iron Worker Foreman (10/17/24 06:26) dd2 Diagnosis - Nondraining left percutaneous nephrostomy, acute pyelonephritis, complications sp4 of immobility, bilateral sacral decubitus ulcers, leaking abdominal colostomy, mechanical complication of colostomy, poor hygiene Forms: - Medication Reconciliation Form sp4 - SBAR form sp4 Critical care time excluding procedures: 05:09 Critical care time: Bedside Care: 36 minutes, Consultation: 12 minutes, Family sp4 Intervention: 12 minutes. Total time: 60 minutes Signatures: Dispatcher [employer] EDMS Avelina Navarro rv1 Narayan Armstrong MD MD sp4 Roger Whitfield, RN RN bm8 ARGENTINA CALLE RN RN dd2 Corrections: (The following items were deleted from the chart) 10/16 21:28 21:28 BLOOD CULTURE*+BA.LAB.BRZ ordered. EDMS EDMS 21:28 21:28 CBC+H.LAB.BRZ ordered. EDMS EDMS 21:28 21:28 COMPREHENSIVE METABOLIC PANEL+C.LAB.BRZ ordered. EDMS EDMS 21:28 21:28 LACTATE+C.LAB.BRZ ordered. EDMS EDMS 21:28 21:28 PROTIME (+INR)+COAG.LAB.BRZ ordered. EDMS EDMS 21:28 21:28 PTT, ACTIVATED+COAG.LAB.BRZ ordered. EDMS EDMS 21:28 21:28 Urinalysis+U.LAB.BRZ ordered. EDMS EDMS 21:28 21:28 Chest Abdomen Pelvis Wo Con+CT.RAD.BRZ ordered. EDMS EDMS 23:11 21:29 Misc. Order ordered. sp4 dd2 23:12 21:28 Brown ordered. sp4 dd2 10/17 06:26 05:09 [facility] Attending Iron Worker Foreman sp4 dd2
--- NOTE | 2024-10-17 05:09 | ER ---
Nurse's Notes [facility] Name: Leila Aquino Age: 44 yrs Sex: Female : 1980 Arrival Date: 10/16/2024 Time: 21:21 Bed 5 Private MD: Diagnosis: Nondraining left percutaneous nephrostomy, acute pyelonephritis, complications of immobility, bilateral sacral decubitus ulcers, leaking abdominal colostomy, mechanical complication of colostomy, poor hygiene Presentation: 10/16 21:52 Chief complaint: EMS states: pt reports nausea and vomitting for "months" has dark bm8 smelly urine and seems more lethargic than normal. Coronavirus screen: At this time, the client does not indicate any symptoms associated with coronavirus-19. Ebola Screen: Patient negative for fever greater than or equal to 101.5 degrees Fahrenheit, and additional compatible Ebola Virus Disease symptoms Patient denies exposure to infectious person. Patient denies travel to an Ebola-affected area in the 21 days before illness onset. No symptoms or risks identified at this time. Initial Sepsis Screen: Does the patient meet any 2 criteria? RR > 20 per min. HR > 90 bpm. Yes Does the patient have a suspected source of infection? No. Patient's initial sepsis screen is negative. Risk Assessment: Do you want to hurt yourself or someone else? Patient reports no desire to harm self or others. Onset of symptoms is unknown. 21:52 Method Of Arrival: EMS: [facility] bm8 21:52 Acuity: PAY[place] 2 bm8 Triage Assessment: 21:55 General: Appears in no apparent distress. comfortable, Behavior is cooperative, bm8 appropriate for age. Pain: Complains of pain in abdomen. Respiratory: Airway is patent Respiratory effort is even, unlabored, Respiratory pattern is regular, symmetrical, tachypnea. GI: Reports lower abdominal pain, upper abdominal pain, nausea, Pain is 7 out of 10 on a pain scale. vomiting. : Brown in place to gravity drainage Urine is cloudy. SURG PHYSICIAN ASST: 21:55 unknown bm8 Historical: - Allergies: 21:54 chloradate; bm8 21:54 Latex; bm8 21:54 Morphine; bm8 21:54 Vancomycin; bm8 - PMHx: 21:54 ADD/ADHD; Anemia; DVT; Asthma; Hypertension; Kidney stones; Osteomyelitis-L foot; bm8 Sepsis; spina bifida; Upper extremity DVT- L arm; UTI; - PSHx: 21:54 Colostomy; nephrostomy; urostomy; bm8 - Immunization history:: Adult Immunizations up to date. - Infectious Disease History:: Denies. - Social history:: Smoking status: . - Family history:: not pertinent. Screenin/18 00:23 [facility] ED Fall Risk Assessment (Adult) History of falling in the last 3 months, dd2 including since admission No falls in past 3 months (0 pts) Confusion or Disorientation No (0 pts) Intoxicated or Sedated No (0 pts) Impaired Gait Yes (1 pt) Mobility Assist Device Used Yes (1 pt) Altered Elimination Yes (1 pt) Score/Fall Risk Level 3 or more points = High Risk Oriented to surroundings, Maintained a safe environment, Educated pt \\T\\ family on fall prevention, incl call for assistance when getting out of bed, Assessed \\T\\ reinforced patient's understanding of fall precautions, Hourly rounding (assess needs \\T\\ fall precautionary measures) done. Abuse screen: Denies threats or abuse. Nutritional screening: No deficits noted. Tuberculosis screening: No symptoms or risk factors identified. Assessment: 10/16 23:15 General: Appears in no apparent distress. uncomfortable, Behavior is calm, cooperative, dd2 appropriate for age. Pain: Complains of pain in abdomen Pain does not radiate. Pain currently is 8 out of 10 on a pain scale. Neuro: Nichols Agitation-Sedation Scale (RASS): 0 - Alert and Calm Level of Consciousness is awake, alert, obeys commands, Oriented to person, place, time, situation, Appropriate for age. Cardiovascular: No deficits noted. Patient's skin is warm and dry. Respiratory: No deficits noted. Airway is patent Respiratory effort is even, unlabored, Respiratory pattern is regular, symmetrical, Breath sounds are clear bilaterally. GI: Abdomen is non-distended, obese, Colostomy site Ostomy appliance is intact. Abdomen is tender to palpation in right lower quadrant and left lower quadrant. : LT NEPHROSTOMY, RT UROSTOMY. EENT: No deficits noted. No signs and/or symptoms were reported regarding the EENT system. Derm: LARGE ABDOMINAL SCAR NOTED. 10/17 04:17 Reassessment: COLOSTOMY BAG CHANGED. dd2 05:32 Reassessment: REPORT CALLED TO RAJNI SANTIZO [facility]. dd2 Vital Signs: 10/16 21:52 BP 130 / 81; Pulse 110; Resp 22; Temp 99.5; Pulse Ox 95% ; Weight 78.93 kg; Height 4 bm8 ft. 11 in. ; Pain 7/10; 23:30 BP 110 / 83; Pulse 94; Resp 17; Pulse Ox 100% on R/A; dd2 10/17 00:25 BP 121 / 78; Pulse 92; Resp 16; Pulse Ox 100% on R/A; dd2 02:37 BP 106 / 64; Pulse 91; Resp 16; Pulse Ox 100% on R/A; dd2 03:30 BP 110 / 69; Pulse 88; Resp 16; Pulse Ox 100% on 2 lpm NC; dd2 04:30 BP 108 / 75; Pulse 81; Resp 16; Pulse Ox 100% on 2 lpm NC; dd2 05:30 BP 113 / 77; Pulse 87; Resp 16; Pulse Ox 100% on 2 lpm NC; dd2 06:00 BP 110 / 73; Pulse 85; Resp 16; Pulse Ox 100% on 2 lpm NC; dd2 10/16 21:52 Body Mass Index 35.14 (78.93 kg, 149.86 cm) bm8 10/16 21:52 Pain Scale: Adult bm8 [place] Coma Score: 10/16 23:15 Eye Response: spontaneous(4). Motor Response: obeys commands(6). Verbal Response: dd2 oriented(5). Total: 15. 10/17 04:55 Eye Response: spontaneous(4). Motor Response: obeys commands(6). Verbal Response: sp4 oriented(5). Total: 15. ED Course: 10/16 21:25 Patient arrived in ED. sb4 21:27 Narayan Armstrong MD is Attending Physician. sp4 21:54 Triage completed. bm8 21:55 CT Chest Abdomen Pelvis W/O Contrast In Process Unspecified. EDMS 21:55 CT Head Brain wo Cont In Process Unspecified. EDMS 21:55 Arm band placed on right wrist. bm8 22:37 Braulio Jackson RN is Primary Nurse. rg5 23:01 Initial lab(s) drawn, by me, sent to lab. First set of blood cultures drawn by ED staff.dd2 23:10 Missed attempt(s): 22 gauge in right antecubital area. dd2 10/17 00:21 No provider procedures requiring assistance completed. dd2 00:23 EKG done, by ED staff, reviewed by Narayan Armstrong MD. Patient maintains SpO2 dd2 saturation greater than 95% on room air. 00:24 Patient has correct armband on for positive identification. Bed in low position. Call dd2 light in reach. Side rails up X2. Client placed on continuous cardiac and pulse oximetry monitoring. NIBP monitoring applied. phototypesetting equipment monitor on. Door closed. Noise minimized. Warm blanket given. Pillow given. Verbal reassurance given. 04:36 Initiated transfer with Susie at [facility]. rv1 04:[address] Lalit Ibarra to [address] [place]. rv1 06:24 Patient transferred, IV remains in place. dd2 06:26 Provided Education on: TRANSFER INFORMATION. dd2 Administered Medications: 01:12 Drug: NS 0.9% IV 1000 ml IV at 1 bolus Per protocol; to be given as a bolus over 60 dd2 minutes Route: IV; Rate: 1 bolus; Site: right antecubital; 01:27 Follow up: Response: No adverse reaction dd2 02:12 Follow up: IV Status: Completed infusion; IV Intake: 1000ml dd2 01:12 Drug: HYDROmorphone IVP 1 mg IVP once Route: IVP; Site: right antecubital; dd2 01:27 Follow up: Response: No adverse reaction dd2 01:12 Drug: Ondansetron IVP 4 mg IVP once; over 2 minutes Route: IVP; Site: right antecubital;dd2 01:27 Follow up: Response: No adverse reaction dd2 01:14 Drug: Cefepime IVPB 2 grams IVPB at 200 ml/hr once over 30 mins; (mix in NS 100 mL) dd2 Route: IVPB; Rate: 200 ml/hr; Infused Over: 30 mins; Site: right antecubital; :29 Follow up: Response: No adverse reaction dd2 01:54 Follow up: IV Status: Completed infusion; IV Intake: 100ml dd2 01:14 Drug: Ondansetron IVP 4 mg IVP once; over 2 minutes Route: IVP; Site: right antecubital;dd2 01:29 Follow up: Response: No adverse reaction dd2 02:15 Not Given (ALLERGYy): vancomycin1 grams IVPB once over 2 hrs dd2 04:16 Drug: HYDROmorphone IVP 1 mg IVP once Route: IVP; Site: right antecubital; dd2 04:31 Follow up: Response: No adverse reaction dd2 04:56 Drug: metroNIDAZOLE IVPB 500 mg 100 ml IVPB at 200 ml/hr once over 30 mins Volume: 100 dd2 ml; Route: IVPB; Rate: 200 ml/hr; Infused Over: 30 mins; Site: right antecubital; 05:30 Follow up: IV Status: Completed infusion; IV Intake: 100ml dd2 Medication: 00:24 VIS not applicable for this client. dd2 Intake: 01:54 IV: 100ml; Total: 100ml. dd2 02:12 IV: 1000ml; Total: 1100ml. dd2 05:30 IV: 100ml; Total: 1200ml. dd2 Outcome: 05:09 ER care complete, transfer ordered by . sp4 06:24 Transferred to [facility], Transfer form completed. dd2 06:24 Condition: stable 06:24 Instructed on the need for transfer, Demonstrated understanding of instructions, 06:26 Patient left the ED. dd2 Signatures: Dispatcher [employer] Yane Munoz, PAToniC PA-C sb4 Avelina Navarro rv1 Narayan Armstrong MD MD sp4 Roger Whitfield RN RN 8 Braulio Jackson RN RN rg5 ARGENTINA CALLE RN RN dd2 Corrections: (The following items were deleted from the chart) 10/16 21:57 21:55 Arm band placed on bm8 bm8 10/17 02:15 02:09 vancoMYCIN IVPB 1 grams IVPB in right antecubital over 2 hrs dd2 dd2
[2024-10-17 08:17] VITALS: TEMP 99.5
[2024-10-17 08:18] VITALS: O2SAT 100
[2024-10-17 08:26] VITALS: BP 110/73
== END 2024-10-17 06:26 | disposition short-term general hospital (02) ==
LOC: ER 21:21
DX: T83.092A Other mechanical complication of nephrostomy catheter, initial encounter (principal); N10 Acute pyelonephritis; K94.03 Colostomy malfunction; Q05.9 Spina bifida, unspecified; L89.159 Pressure ulcer of sacral region, unspecified stage; R46.0 Very low level of personal hygiene; Z98.2 Presence of cerebrospinal fluid drainage device; I10 Essential (primary) hypertension; Z87.442 Personal history of urinary calculi
CPT/HCPCS: 87040 ×2; 87088; 85025; 87086; 36415; 85610; 82947; 83605; 85730; 81003; 84484; 83690; 80053; 83880; 70450; 71250; 74176; J0692; J1171 ×2; J2405; J7050; J7030; 93005